=== PATIENT | female | born 1990 | race Caucasian/White ===

== ENCOUNTER 2017-12-20 18:23 | Emergency (ER) | payer OTHER ==
--- NOTE | 2017-12-20 19:47 | ED Physician Documentation ---
PD HPI NVD - Stated complaint Stated Complaint: GUNN/VOMITING - Chief complaint Chief Complaint: General - History obtained from History obtained from: Patient - History of Present Illness Timing - onset: Yesterday Timing - duration: Days (11/21) Timing - details: Gradual onset, Still present Associated symptoms: Other (headache). No: Fever, Abdominal pain, Near syncope / syncope Contributing factors: No: Sick contact, Bad food, Recent antibiotics Similar symptoms before: No diagnosis (has had milder similar headaches without Dx, treated with OTC meds and usually improves over the day.) Recently seen: Not recently seen Review of Systems Constitutional: denies: Fever, Chills, Myalgias, Fatigue Eyes: reports: Photophobia. denies: Decreased vision, Irritation Ears: denies: Loss of hearing Nose: denies: Rhinorrhea / runny nose, Congestion Throat: denies: Sore throat Respiratory: denies: Cough GI: reports: Nausea, Vomiting. denies: Abdominal Pain, Diarrhea Neurologic: reports: Generalized weakness, Headache. 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 - Present Medications Home Medications: Ambulatory Orders Medication Instructions Recorded Confirmed Ondansetron Odt [Zofran] 4 mg TL Q6H PRN #15 tablet 12/20/17 Sumatriptan Succinate [Imitrex] 50 mg PO ONCE PRN #5 tablet 12/20/17 - Allergies Allergies/Adverse Reactions: Allergies Allergy/AdvReac Type Severity Reaction Status Date / Time No Known Drug Allergies Allergy Verified 12/20/17 18:33 - Social History Does the pt smoke?: No Smoking Status: Never smoker Does the pt drink ETOH?: No Substance Use and Type: Marijuana - Immunizations Immunizations are current?: Yes - POLST Patient has POLST: No PD ED PE NORMAL - Vitals Vital signs reviewed: Yes - General General: Alert and oriented X 3, Well developed/nourished, Other (appears in pain with light sensitivity.) - HEENT HEENT: Atraumatic, PERRL, Ears normal, Pharynx benign - Neck Neck: Supple, no meningeal sign, No adenopathy - Cardiac Cardiac: RRR, No murmur - Respiratory Respiratory: Clear bilaterally - Abdomen Abdomen: Soft, Non tender - Derm Derm: Normal color, Warm and dry - Neuro Neuro: Alert and oriented X 3, nutrition internship 2-12 intact, No motor deficit, No sensory deficit, Normal speech Eye Opening: Spontaneous Motor: Obeys Commands Verbal: Oriented GCS Score: 15 - Psych Psych: Normal mood, Normal affect Results - Vitals Vitals: Oxygen O2 Source Room air PD MEDICAL DECISION MAKING - ED course Complexity details: re-evaluated patient (improved with meds targeted at migraine. ), considered differential, d/w patient Departure - Departure Disposition: 01 Home, Self Care Clinical Impression: Headache Qualifiers: Headache type: unspecified Headache chronicity pattern: acute headache Intractability: not intractable Qualified Code(s): R51 - Headache Vomiting Qualifiers: Vomiting type: unspecified Vomiting Intractability: non-intractable Nausea presence: with nausea Qualified Code(s): R11.2 - Nausea with vomiting, unspecified Migraine Qualifiers: Migraine type: without aura Status migrainosus presence: without status migrainosus Intractability: not intractable Qualified Code(s): G43.009 - Migraine without aura, not intractable, without status migrainosus Condition: Stable Record reviewed to determine appropriate education?: Yes Instructions: ED Headache Migraine, ED Nausea Vomiting Prescriptions: Ondansetron Odt [Zofran] 4 mg TL Q6H PRN #15 tablet PRN Reason: Nausea / Vomiting Sumatriptan Succinate [Imitrex] 50 mg PO ONCE PRN #5 tablet PRN Reason: Migraine Comments: This sounds like a migraine headache and I am glad it is feeling better. If you have subsequent headaches like this you could try a combination of ibuprofen along with ondansetron for nausea and potentially migraine medicine called sumatriptan. The combination often will help with migraine headaches. Follow-up with the primary care if repetitive headaches. Tylenol or Ibuprofen as needed for residual headache this evening. Discharge Date/Time: 12/20/17 21:55
[2017-12-20] MEDS ORDERED: KETOROLAC 30 MG/ML VIAL IVP STA (20:05)
[2017-12-20] MEDS ORDERED: DEXAMETHASONE 10 MG/ML VIAL IVP STA (20:05)
[2017-12-20] MEDS ORDERED: diphenhydrAMINE INJ 50 MG/ML VIAL IVP STA (20:05)
[2017-12-20] MEDS ORDERED: SODIUM CHLORIDE 0.9% 1,000 ML IV ONE ×2 (20:05→20:06)
[2017-12-20] MEDS ORDERED: METOCLOPRAMIDE 10 MG/2 ML VIAL IVP STA (20:05)
[2017-12-20] MEDS ORDERED: ONDANSETRON ODT 4 MG Prepack 2 TL PRN (21:34)
[2017-12-20 21:52] VITALS: BP 117/75
== END 2017-12-20 21:55 | disposition home or self-care (01) ==
LOC: ED 18:23
DX: G43.009 Migraine without aura, not intractable, without status migrainosus (principal); R11.2 Nausea with vomiting, unspecified; E03.9 Hypothyroidism, unspecified
CPT/HCPCS: 96361; 96374; 96375; 99283; 99284

== ENCOUNTER 2018-10-21 11:04 | Emergency (ER) | payer OTHER ==
[2018-10-21] MEDS ORDERED: NAPROXEN 250 MG TABLET PO STA (12:07)
--- NOTE | 2018-10-21 12:11 | ED Physician Documentation ---
PD HPI UPPER EXT INJURY - Stated complaint Stated Complaint: ARM PX - Chief complaint Chief Complaint: Ext Problem - History obtained from History obtained from: Patient - History of Present Illness Location: Left, Wrist, Hand - Additonal information Additional information: 28-year-old female presents the emergency department with intermittent pain in her left wrist and hand for the past several years. The patient reports a sharp burning pain. The patient does use her left hand extensively and is left- handed. The patient was told that she has carpal tunnel but is never seen orthopedic surgery. The patient denies proximal pain. The patient denies any injury to her shoulder elbow or wrist. Symptoms are described as moderate. No relieving factors. Review of Systems Constitutional: denies: Fever Eyes: denies: Discharge Ears: denies: Ear pain Cardiac: denies: Chest pain / pressure Respiratory: denies: Cough GI: denies: Abdominal Pain : denies: Dysuria Musculoskeletal: reports: Extremity pain. 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 - Present Medications Home Medications: Ambulatory Orders Medication Instructions Recorded Confirmed Dextroamphetamine/Amphetamine 10/21/18 [Adderall 30 mg Tablet] Doxazosin [Cardura] 1 mg PO ONCE 10/21/18 10/21/18 Lamotrigine [Lamotrigine Odt] 200 mg PO 10/21/18 Naproxen 500 mg PO BID PRN #60 tablet 10/21/18 - Allergies Allergies/Adverse Reactions: Allergies Allergy/AdvReac Type Severity Reaction Status Date / Time No Known Drug Allergies Allergy Verified 10/21/18 11:16 - Social History Does the pt smoke?: Yes Smoking Status: Current some day smoker Does the pt drink ETOH?: Yes ETOH Use: Wine Does the pt have substance abuse?: No Substance Use and Type: Marijuana - Immunizations Immunizations are current?: Yes - POLST Patient has POLST: No PD ED PE NORMAL - General General: Alert and oriented X 3, No acute distress - HEENT HEENT: Atraumatic - Derm Derm: Normal color - Extremities Extremities: Other (The patient is tender to palpation in her left wrist and hand. The exam is limited secondary to the patient's discomfort. There is no swelling of the upper extremity. The patient appears to have full range of motion of the shoulder, elbow, wrist and hand. The patient has a normal radial pulse. There is normal cap refill. There is normal sensory and motor function of the extremity. ) - Neuro Neuro: Alert and oriented X 3, Normal speech - Psych Psych: Normal affect Results - Vitals Vitals: Vital Signs - 24 hr 10/21/18 10/21/18 11:13 12:22 Temperature 36.2 C L Heart Rate 66 98 Respiratory 15 20 Rate Blood Pressure 111/71 139/79 H O2 Saturation 100 99 Oxygen O2 Source Room air PD MEDICAL DECISION MAKING - ED course ED course: There is no history of trauma that would suggest fracture and clinically there is no evidence of fracture so I do not think x-rays would be of much utility. The patient's pain on the represents carpal tunnel or tendinitis. The exam is limited secondary to the patient's discomfort. The patient will be placed in a splint and started on anti-inflammatories. I recommended that she follow-up with orthopedics for further workup and management of her symptoms. I discussed warning signs and recommended returning to the emergency department for any worsening or any concerns. Departure - Departure Disposition: 01 Home, Self Care Clinical Impression: Wrist pain, acute Qualifiers: Laterality: left Qualified Code(s): M25.532 - Pain in left wrist Condition: Good Instructions: Carpal Tunnel Syndrome, Tendonitis and Tenosynovitis Follow-Up: Frandy Gould MD [Provider Admit Priv/Credential] - Within 1 week (Please call to schedule an appointment for further workup and evaluation of your pain) Prescriptions: Naproxen 500 mg PO BID PRN #60 tablet PRN Reason: Pain Comments: Please return to the emergency department for worsening symptoms or any concerns Discharge Date/Time: 10/21/18 12:22
[2018-10-21 12:27] VITALS: BP 139/79
== END 2018-10-21 12:22 | disposition home or self-care (01) ==
LOC: ED 11:04
DX: M25.532 Pain in left wrist (principal); E03.9 Hypothyroidism, unspecified; F17.200 Nicotine dependence, unspecified, uncomplicated
CPT/HCPCS: 99283; A9270

== ENCOUNTER 2019-12-09 19:38 | Emergency (ER) | payer SELFPAY ==
[2019-12-09 20:09] LABS: GLUCOSE, URINE (UA) 100 mg/dL (NEGATIVE); KETONES,URINE (UA) NEGATIVE (NEGATIVE)
[2019-12-09 20:11] LABS: CLARITY,URINE CLEAR (CLEAR)
[2019-12-09 20:14] LABS: BILIRUBIN,URINE NEGATIVE (NEGATIVE)
--- NOTE | 2019-12-09 20:21 | ED Physician Documentation ---
PD HPI FEMALE - Stated complaint Stated Complaint: F , ABD/BACK PX - Chief complaint Chief Complaint: UTI - History obtained from History obtained from: Patient - History of Present Illness Timing - onset: How many days ago (5) Timing - details: Gradual onset, Waxing and waning Pain level max: 7 Associated symptoms: Back pain, Pelvic pain. No: Fever Contributing factors: No: Recently seen: Clinic - Additional information Additional information: c/o urinary frequency and burning dysuria since Monday (five days ago). she says she has no PMD and thus went to a walk-in center in [place] on Monday. She says she was prescribed Bactrim and started it that day; she says the urinary frequency and dysuria have improved, although not resolved, and she continues to take pyridium. She is concerned because she has now developed pelvic pain that radiates around bilaterally to the lower back. Review of Systems Constitutional: denies: Fever GI: reports: Abdominal Pain. denies: Nausea, Vomiting, Constipation, Diarrhea : reports: Dysuria, Frequency. 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 - Present Medications Home Medications: Ambulatory Orders Medication Instructions Recorded Confirmed Dextroamphetamine/Amphetamine 10/21/18 [Adderall 30 mg Tablet] Amox/Clav 875/125 [Augmentin] 1 each PO Q12H #14 tablet 12/09/19 Sulfamethox/Trimeth 800/160 1 each PO BID 12/09/19 12/09/19 [Bactrim Ds 800/160] - Allergies Allergies/Adverse Reactions: Allergies Allergy/AdvReac Type Severity Reaction Status Date / Time No Known Drug Allergies Allergy Verified 12/09/19 19:48 - Social History Does the pt smoke?: Yes Smoking Status: Current every day smoker Does the pt drink ETOH?: Yes Does the pt have substance abuse?: No - Immunizations Immunizations are current?: Yes - POLST Patient has POLST: No PD ED PE NORMAL - Vitals Vital signs reviewed: Yes - General General: Alert and oriented X 3, No acute distress, Well developed/nourished - HEENT HEENT: Moist mucous membranes - Abdomen Abdomen: Normal bowel sounds, Soft, Non tender, Non distended - Back Back: No CVA TTP Results - Vitals Vitals: Vital Signs - 24 hr 12/09/19 12/09/19 19:45 21:59 Temperature 36.7 C 36.6 C Heart Rate 100 84 Respiratory 18 18 Rate Blood Pressure 107/68 108/72 O2 Saturation 96 95 Oxygen O2 Source Room air - Labs Labs: Laboratory Tests 12/09/19 12/09/19 19:55 19:55 Urine Color ORANGE Urine Clarity CLEAR Urine pH 6.0 Ur Specific [place] 1.025 1.025 Urine Protein Urine Glucose (UA) 100 H Urine Ketones NEGATIVE Urine Occult Blood Urine Nitrite Urine Bilirubin NEGATIVE Urine Urobilinogen Ur Leukocyte Esterase Urine RBC 0-5 Urine WBC 0-3 Ur Squamous Epith Cells MANY Squamous H Urine Bacteria Rare Ur Microscopic Review INDICATED Urine Culture Comments NOT INDICATED Urine HCG, Qual NEGATIVE PD MEDICAL DECISION MAKING - ED course Complexity details: reviewed results, re-evaluated patient, considered differential, d/w patient ED course: UA is difficult to interpret for two reasons: on bactrim for several days, so results could reflect partially-treated UTI. Also, discoloration due to pyridium obscures some results. Her abdominal exam is benign; will treat with different antibiotic and have her contact the walk-in center when they are open to inquire as to sensitivity/resistance patterns (presuming culture was performed) to help determine if she has been on / is now on appropriate antibiotic. Encouraged to return if worse of develops fever, and to f/u with PMD Departure - Departure Disposition: 01 Home, Self Care Clinical Impression: Cystitis Condition: Good Instructions: ED UTI Cystitis Female Prescriptions: Amox/Clav 875/125 [Augmentin] 1 each PO Q12H #14 tablet Comments: Start the augmentin (amoxicillin/clav) as prescribed and stop the bactrim (sulfa/trimeth). Contact the walk-in facility and ask about the urine culture results as we discussed. Discharge Date/Time: 12/09/19 22:00
[2019-12-09 20:29] LABS: HCG UR QUAL NEGATIVE
[2019-12-09 20:34] LABS: BACTERIA,URINE Rare /HPF (None Seen); RBC,URINE 0-5 /HPF (0-5); SQUAMOUS EPITHELIAL CELL,UR MANY Squamous (<= Few)
[2019-12-09] MEDS ORDERED: KETOROLAC 60 MG/2 ML VIAL IM STA (21:32)
[2019-12-09] MEDS ORDERED: cefTRIAXone 1 GM VIAL IM STA (21:32)
[2019-12-09] MEDS ORDERED: LIDOCAINE 1% 2 ML VIAL MC ONE (21:32)
[2019-12-09 21:59] VITALS: BP 108/72
== END 2019-12-09 22:00 | disposition home or self-care (01) ==
LOC: ED 19:38
DX: N30.90 Cystitis, unspecified without hematuria (principal); F17.200 Nicotine dependence, unspecified, uncomplicated
CPT/HCPCS: 81001; 81003; 81025; 87086; 96372; 99283

== ENCOUNTER 2021-04-27 12:53 | Outpatient (CLI) | payer MEDICAID | END 2021-04-27 13:45 | disposition home or self-care (01) | LOC: WFO 12:53 → FBP 12:58 → WFO 13:45 | PROVIDERS: ATTEND Pediatrics | DX: Z53.9 Procedure and treatment not carried out, unspecified reason (principal) | CPT/HCPCS: 99402 ==

== ENCOUNTER 2021-10-04 16:52 | Emergency (ER) | payer MEDICAID ==
[2021-10-04 17:13] VITALS: BP 148/92
--- NOTE | 2021-10-04 18:24 | ED Physician Documentation ---
PD HPI LOWER EXT INJURY - Stated complaint Stated Complaint: LEFT HEEL PX - Chief complaint Chief Complaint: Ext Problem - History obtained from History obtained from: Patient - Additional information Additional information: 31-year-old woman has been dealing with left heel pain for last 2 months or so that has generally been getting worse and for a while the other day could not ambulate because of it. It is located on the posterior and sides of the calcaneus of the left heel. There was no trauma per se. She has had plantar fasciitis before but this feels different. Was seen at urgent care today but the power went out and they could not x-ray it so she came here for an x-ray. Today is the only day she has childcare. 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 - Present Medications Home Medications: Ambulatory Orders Medication Instructions Recorded Confirmed Dextroamphetamine/Amphetamine 20 mg ORAL DAILY 10/21/18 10/04/21 [Adderall 30 mg Tablet] FLUoxetine [PROzac] 10 mg PO DAILY 10/04/21 10/04/21 Ibuprofen [Motrin] 800 mg PO Q8H PRN #30 tablet 10/04/21 Levothyroxine [Synthroid] 75 mcg PO QDAC 10/04/21 10/04/21 - Allergies Allergies/Adverse Reactions: Allergies Allergy/AdvReac Type Severity Reaction Status Date / Time No Known Drug Allergies Allergy Verified 10/04/21 17:13 - Social History Does the pt smoke?: Yes Smoking Status: Current every day smoker Does the pt drink ETOH?: Yes Does the pt have substance abuse?: No - Immunizations Immunizations are current?: Yes - POLST Patient has POLST: No PD ED PE NORMAL - Vitals Vital signs reviewed: Yes - General General: Alert and oriented X 3, No acute distress - Derm Derm: Normal color, Warm and dry - Extremities Extremities: Other (Tender to the medial side of the calcaneus. The plantar fascia is nontender and there is no pain with manipulation or palpation of the Achilles tendon or plantar fascia. No pain with forced flexion or extension of the left foot.) - Neuro Neuro: Alert and oriented X 3, Normal speech Results - Vitals Vitals: Vital Signs - 24 hr 10/04/21 17:09 Temperature 36.0 C L Heart Rate 107 H Respiratory 16 Rate Blood Pressure 148/92 H O2 Saturation 100 Oxygen O2 Source Room air - Rads (name of study) Calcaneus x-ray Radiology: EMP read contemporaneously (Bone spurs, Nad) PD MEDICAL DECISION MAKING - ED course ED course: She presents with heel pain, it is not consistent with Achilles tendinitis nor plantar fasciitis. Seems more like a tendon on the medial side attaching the calcaneus. X-ray showing bone spurs. She is placed in a walking boot for comfort and immobilization from an inversion/eversion perspective and advised on follow-up with a ems manager. Departure - Departure Disposition: 01 Home, Self Care Clinical Impression: Tendinitis of left foot Condition: Good Record reviewed to determine appropriate education?: Yes Instructions: ED Tendinitis Calcific Follow-Up: Elaine Pena DPM [Provider Admit Priv/Credential] - Orville Maguire DPM [Physician No Access] - Prescriptions: Ibuprofen [Motrin] 800 mg PO Q8H PRN #30 tablet PRN Reason: PAIN &/OR FEVER Comments: As discussed, the x-ray of your calcaneus shows bone spurs, this is a chronic phenomenon potentially related to prior plantar fasciitis of the foot. That said I think today your symptoms are caused by tendinitis. The boot should help with inversion and eversion of the ankle but I also recommend following up with a ems manager and a couple of numbers are on this form for you to call and make an appointment. Return if worse. Discharge Date/Time: 10/04/21 19:22
--- NOTE | 2021-10-04 19:02 | XRAY Report ---
PROCEDURE: Calcaneus LT INDICATIONS: heel pain TECHNIQUE: Two views of the calcaneus were acquired. COMPARISON: None FINDINGS: Bones: No fractures or dislocations. No suspicious bony lesions. Large dorsal and plantar calcanea l bone spurs. Soft tissues: No suspicious calcifications. Achilles tendon appears normal. IMPRESSION: Calcaneal bone spurs. Reviewed by: Maggi Barnes MD, PhD on 10/04/2021 7:00 PM PST Approved by: Maggi Barnes MD, PhD on 10/04/2021 7:00 PM PST Station ID: [id number]
== END 2021-10-04 19:22 | disposition home or self-care (01) ==
LOC: ED 16:52
DX: M77.52 Other enthesopathy of left foot and ankle (principal); M77.32 Calcaneal spur, left foot
CPT/HCPCS: 99283

== ENCOUNTER 2021-10-18 18:32 | Emergency (ER) | payer MEDICAID ==
[2021-10-18 18:40] VITALS: BP 119/78
--- NOTE | 2021-10-18 20:20 | ED Physician Documentation ---
PD HPI FEMALE - Stated complaint Stated Complaint: FEMALE - Chief complaint Chief Complaint: Abd Pain - History obtained from History obtained from: Patient - Additional information Additional information: Patient comes emergency department chief complaint of low abdominal cramping and vaginal bleeding that started this afternoon. She states she is somewhere between 7 and 11 weeks , but she is not sure because since giving to her third child 7 months ago, her periods have been irregular. She also states that she thinks she may have had a miscarriage in June, because she mi ssed her period in May and then had an extra heavy 1 in June. She states she never took a test so she is not really sure. Patient has had a positive home test but has not had an ultrasound yet. She states that she had uncomplicated pregnancies for all of her children and did not have any any bleeding during that time. Patient states that she has not been on any control. She does not know her blood type or her partners. She states that she is otherwise fairly healthy. Patient denies any dysuria or unusual discharge. No back pain. No fevers or chills. No other complaints at this time. She states that she has been bleeding a little more than spotting, but not heavily. She states it is more like a light day of her period. Review of Systems Ten Systems: 10 systems reviewed and negative Constitutional: reports: Reviewed and negative Eyes: reports: Reviewed and negative Ears: reports: Reviewed and negative Nose: reports: Reviewed and negative Throat: reports: Reviewed and negative Cardiac: reports: Reviewed and negative Respiratory: reports: Reviewed and negative GI: reports: Reviewed and negative : reports: Vaginal bleeding, Now EGA Skin: reports: Reviewed and negative Musculoskeletal: reports: Reviewed and negative Neurologic: reports: Reviewed and negative Psychiatric: reports: Reviewed and negative Endocrine: reports: Reviewed and negative Immunocompromised: reports: Reviewed and negative PD PAST MEDICAL HISTORY - Past Medical History Cardiovascular: None Respiratory: None Neuro: None Endocrine/Autoimmune: HyPOthyroidism GI: None 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 : None HEENT: None Psych: Anxiety, Bipolar disorder, Panic attacks, ADD/ADHD Musculoskeletal: None Derm: None - Past Surgical History Past Surgical History: Yes /VICE [employer]IDENT [employer]: section - Present Medications Home Medications: Ambulatory Orders Medication Instructions Recorded Confirmed Dextroamphetamine/Amphetamine 20 mg ORAL DAILY 10/21/18 10/04/21 [Adderall 30 mg Tablet] FLUoxetine [PROzac] 10 mg PO DAILY 10/04/21 10/04/21 Ibuprofen [Motrin] 800 mg PO Q8H PRN #30 tablet 10/04/21 Levothyroxine [Synthroid] 75 mcg PO QDAC 10/04/21 10/04/21 - Allergies Allergies/Adverse Reactions: Allergies Allergy/AdvReac Type Severity Reaction Status Date / Time No Known Drug Allergies Allergy Verified 10/18/21 18:36 - Social History Does the pt smoke?: Yes Smoking Status: Current every day smoker Does the pt drink ETOH?: Yes Does the pt have substance abuse?: No - Immunizations Immunizations are current?: Yes Immunizations: Other immun not current - POLST Patient has POLST: No PD ED PE NORMAL - Vitals Vital signs reviewed: Yes - General General: Alert and oriented X 3, No acute distress, Well developed/nourished - HEENT HEENT: Atraumatic, PERRL, EOMI, Moist mucous membranes - Neck Neck: Supple, no meningeal sign - Cardiac Cardiac: RRR, No murmur, Strong equal pulses - Respiratory Respiratory: No respiratory distress, Clear bilaterally - Abdomen Abdomen: Soft, Non tender, Non distended - Female Female : 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 Speculum exam reveals no cervical lesions. Mild amount of maroon blood mixed with mucus in vaginal canal. No products of conception or clots. No cervical motion tenderness. Os is closed.) - Back Back: No CVA TTP - Derm Derm: Normal color, Warm and dry, No rash - Extremities Extremities: No deformity, No edema - Neuro Neuro: Alert and oriented X 3, bezel cutter 2-12 intact, Normal speech - Psych Psych: Normal mood, Normal affect Results - Vitals Vitals: Vital Signs - 24 hr 10/18/21 10/18/21 18:36 21:17 Temperature 36.5 C Heart Rate 100 94 Respiratory 16 14 Rate Blood Pressure 119/78 O2 Saturation 98 97 Oxygen O2 Source Room air - Labs Labs: Laboratory Tests 10/18/21 10/18/21 20:20 20:20 HCG, Quant 8.70 Blood Type A POSITIVE Antibody Screen NEGATIVE - Rads (name of study) OB US Radiology: Final report received, EMP read indepedently, See rad report (No IUP. No identifiable ectopic , but cannot rule out.) PD MEDICAL DECISION MAKING - ED course Complexity details: reviewed results, re-evaluated patient, considered differential, d/w patient ED course: The patient was worked up with labs including quantitative hCG and blood type. She was also worked up with ultrasound. The patient's quantitative hCG was 8.7 and her ultrasound did not show any evidence of a either intrauterine or extrauterine. I spoke with the patient further, and she stated that she had had a total of 5+ urine tests, four at home and one at her doctor's office. The last one was October 13. At this point in time, I discussed with the patient that it appears that her has failed to progress and that she is having a very early miscarriage. However, I have advised her to call her doctor's office first thing tomorrow morning and schedule an appointment for 3 days from now to have a repeat hCG done to be sure that her hormones are continuing to decrease. We have discussed that if her hormone levels are rising again she will need to have another ultrasound next week. The patient also understands that should she develop any severe bleeding and severe pain, or syncope/near syncope, she should return to the emergency department. Departure - Departure Disposition: Home, Self Care Clinical Impression: First trimester bleeding Migraine Qualifiers: Migraine type: unspecified Status migrainosus presence: without status migrainosus Intractability: not intractable Qualified Code(s): G43.909 - Migraine, unspecified, not intractable, without status migrainosus Condition: Stable Instructions: Bleeding Early Preg, ED Headache Migraine, ED Miscarriage Poss Comments: Tonight, your level of beta-hCG, the main hormone, was 8.7. This is well below the threshold generally required to trigger a positive urine test. Your ultrasound was completely negative for a inside of or outside of the uterus. As such, the very most likely scenario is that you had a that stopped progressing very early in the process, and that while the hormone levels were high enough to trigger a positive urine test, they are dropping, due to a failure of progression of the . There is still a very small chance that you could have a outside of the uterus that is too small to see. As such, it is very important that you call your doctor's office first thing in the morning and schedule an appointment for this coming October 21, two have another hormone level drawn. If the hormone levels continue to drop, then this indicates that the will no longer grow, and will off. However, if your hormone start rising again, you will need to have another ultrasound next week to determine whether any further development has occurred. If you develop severe abdominal pain Or extremely heavy bleeding, or if you become severely lightheaded and nearly faint or faint, you should return to the emergency department. Discharge Date/Time: 10/18/21 21:17
[2021-10-18] MEDS ORDERED: PROMETHAZINE 25 MG/1 ML VIAL IM STA (21:04)
--- NOTE | 2021-10-18 21:47 | Ultrasound Report ---
PROCEDURE: OB First Trimester INDICATIONS: 1st trimester bleeding OUTSIDE/PRIOR DATING DATA: Last menstrual period (LMP): Not known. LMP-based estimated date of delivery (ECTOR): Not applicable. First dating scan (date and location): 10/18/2021. Estimated date of delivery (ECTOR) from first dating scan: Not applicable. TECHNIQUE: Real-time scanning was performed of the fetus and maternal pelvic organs, with image documentation. COMPARISON: None FINDINGS: Embryo: No intrauterine identified. Heart rate: Not applicable Measurement variability in dating: +/- 4 weeks by LMP, +/- 7 days by mean sac diameter (use before 6 weeks gestation if crown-rump length not able to be measured), +/- 5 days by crown-rump length (6-12 weeks gestation). Maternal organs: Uterus measures 9.8 x 4.6 x 6.0 cm. Right ovary measures 2.5 x 1.9 x 2.9 cm. Left o vary measures 2.6 x 2.2 x 2.5 cm. Ovaries are sonographically normal. Trace echogenic fluid noted in the cervical canal. IMPRESSION: 1. No intrauterine identified. Differential diagnosis includes early , nonviable p regnancy and occult ectopic . Recommend close clinical observation, correlation with serial beta hCG and short-term follow-up obstetrical ultrasound in one week. Reviewed by: Maggi Barnes MD, PhD on 10/18/2021 9:46 PM PST Approved by: Maggi Barnes MD, PhD on 10/18/2021 9:46 PM PST Station ID: [id number]
== END 2021-10-18 21:17 | disposition home or self-care (01) ==
LOC: ED 18:32
DX: O03.4 Incomplete spontaneous abortion without complication (principal); G43.909 Migraine, unspecified, not intractable, without status migrainosus; F17.200 Nicotine dependence, unspecified, uncomplicated
CPT/HCPCS: 36415; 84702; 86850; 86900; 86901; 96372; 99283; 99284

== ENCOUNTER 2021-10-29 16:52 | Outpatient (CLI) | payer MEDICAID | END 2021-10-29 16:53 | disposition home or self-care (01) | LOC: LAB.N 16:52 | PROVIDERS: ATTEND Obstetrics & Gynecology | DX: Z32.01 Encounter for pregnancy test, result positive (principal) | CPT/HCPCS: 36415; 84702 ==

== ENCOUNTER 2022-11-29 17:24 | Emergency (ER) | payer MEDICAID ==
--- OUTSIDE RECORDS SUMMARY | 2022-11-29 18:01 | EXTERNAL MEDICAL SUMMARY RPT | Continuity of Care Document ---
:1990 Author Organization [facility] Address [address] [place] [address] Phone Care Team Providers Name Role Phone Unavailable Unavailable Unavailable Josefina Baumann Unavailable Unavailable Allergies and Intolerances date description facility type (no date) [facility] (unknown) Encounters No information. Functional Status No information. Immunizations date description facility 2022 00:00 Tetanus, Diphtheria, Pertussis (Tdap) [facility]22-11-01 [facility] Medications date description facility 2022-09-09 00:00 [facility] 2022-10-12 [facility]10 [facility] Levothy[facility]22-10-17 [facility]:00 Hydroxyzine [facility] Problems date description facility 2022-10-04 00:00 [facility]04 12:15 Hypothyroidism, unspecified [facility] 2022-10-18 00:00 Request for sterilization [facility] 2022-10-18 00:00 [facility] 2022-11-01 12:23 Encounter for supervision of other [facility] , third t 2022-11-01 12:23 35 weeks gestation of [facility] 2022-11-02 02:05 Encounter for supervision of other [facility] , third t 2022-11-02 02:05 35 weeks gestation of [facility] 2022-11-10 12:33 Decreased movements, third trimes ter, [facility] applicable o 2022-11-24 07:17 Encounter for sterilization M[facility]ed with [facility] 2022-11-24 07:17 39 weeks gestation of [facility] 2022-11-24 07:17 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 [facility] 2022-11-24 07:18 Encounter for sterilization M[facility] 2022-11-24 07:18 39 weeks gestation of [facility] 2022-11-24 07:18 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 [facility] 2022-11-24 08:47 Encounter for sterilization M[facility] 2022-11-24 08:47 39 weeks gestation of [facility] 2022-11-24 08:47 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 [facility] 2022-11-24 09:45 Encounter for sterilization M[facility] 2022-11-24 09:45 39 weeks gestation of [facility] 2022-11-24 09:45 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 [facility] 2022-11-24 17:45 Encounter for sterilization Merged with [facility] 2022-11-24 17:45 39 weeks gestation of [facility] 2022-11-24 17:45 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 [facility] 2022-11-25 08:51 Encounter for sterilization [facility] 2022-11-25 08:51 39 weeks gestation of [facility] 2022-11-25 08:51 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 [facility] 2022-11-25 09:37 Encounter for sterilization M[facility]ed [facility] 2022-11-25 09:37 39 weeks gestation of [facility] 2022-11-25 09:37 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 [facility] 2022-11-25 10:52 Encounter for sterilization M[facility] 2022-11-25 10:52 39 weeks gestation of [facility] 2022-11-25 10:52 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 [facility] 2022-11-25 14:03 Encounter for sterilization [facility] 2022-11-25 14:03 39 weeks gestation of [facility] 2022-11-25 14:03 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 [facility] 2022-11-25 16:40 Encounter for sterilization [facility] 2022-11-25 16:40 39 weeks gestation of [facility] 2022-11-25 16:40 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 [facility] Procedures date description facility 2022-11-24 00:00 Section (Not Applicable) [facility] 2022-11-26 00:00 Blood Patch Epidural [facility] Results/Labs test date author facility value unit interpret ation Result panel 1 (unknown) (no date[facility]) Result panel 2 (unknown) (no date) (unknown[facility]) Result panel 3 (unknown) (no date) (unknown[facility]) Result panel 4 (unknown) (no date) (unknown[facility]) Result panel 5 (unknown) (no date) (unknown[facility]) Result panel 6 (unknown) (no date) (unknown[facility]) Result panel 7 (unknown) (no date) (unknown[facility]) Result panel 8 (unknown) (no date) (unknown[facility]) Result panel 9 (unknown) (no date) (unknown[facility]) Result panel 10 (unknown) (no date) (unknown[facility]) Result panel 11 (unknown) (no date) (unknown[facility]) Result panel 12 (unknown) (no date) (unknown[facility]) Result panel 13 (unknown) (no date) (unknown[facility]) Result panel 14 (unknown) (no date) (unknown[facility]) Result panel 15 (unknown) (no date) (unknown[facility]) Result panel 16 (unknown) (no date) (unknown[facility]) Result panel 17 (unknown) (no date) (unknown[facility]) Result panel 18 (unknown) (no date) (unknown[facility]) Result panel 19 (unknown) (no date) (unknown[facility]) Result panel 20 (unknown) (no date) (unknown[facility]) Result panel 21 (unknown) (no date) (unknown[facility]) Result panel 22 (unknown) (no date) (unknown[facility]) Result panel 23 (unknown) (no date) (unknown[facility]) Result panel 24 (unknown) (no date) (unknown[facility]) Result panel 25 (unknown) (no date) (unknown[facility]) Result panel 26 (unknown) (no date) (unknown[facility]) Result panel 27 (unknown) (no date) (unknown[facility]) Result panel 28 (unknown) (no date) (unknown[facility]) Result panel 29 (unknown) (no date) (unknown[facility]) Result panel 30 (unknown) (no date) (unknown[facility]) Result panel 31 (unknown) (no date) (unknown[facility]) Result panel 32 (unknown) (no date) (unknown[facility]) Result panel 33 (unknown) (no date) (unknown[facility]) Result panel 34 (unknown) (no date) (unknown[facility]) Result panel 35 (unknown) (no date) (unknown[facility]) Result panel 36 (unknown) (no date) (unknown[facility]) Result panel 37 (unknown) (no date) (unknown[facility]) Result panel 38 (unknown) (no date) (unknown[facility]) Result panel 39 (unknown) (no date) (unknown[facility]) Result panel 40 (unknown) (no date) (unknown[facility]) Result panel 41 (unknown) (no date) (unknown[facility]) Result panel 42 (unknown) (no date) (unknown[facility]) Result panel 43 (unknown) (no date) (unknown[facility]) Result panel 44 (unknown) (no date) (unknown[facility]) Result panel 45 (unknown) (no date) (unknown[facility]) Result panel 46 (unknown) (no date) (unknown[facility]) Result panel 47 (unknown) (no date) (unknown[facility]) Result panel 48 (unknown) (no date) (unknown[facility]) Result panel 49 (unknown) (no date) (unknown[facility]) Result panel 50 (unknown) (no date) (unknown[facility]) Result panel 51 (unknown) (no date) (unknown[facility]) Result panel 52 (unknown) (no date) (unknown) [facility]) Result panel 53 (unknown) (no date) (unknown) [facility]) Result panel 54 (unknown) (no date) (unknown[facility]) Result panel 55 (unknown) (no date) (unknown[facility]) Result panel 56 (unknown) (no date) (unknown) [facility]) Result panel 57 (unknown) (no date) (unknown[facility]) Result panel 58 (unknown) (no date) (unknown) [facility]) Result panel 59 (unknown) (no date) (unknown) [facility]) Result panel 60 (unknown) (no date) (unknown[facility]) Result panel 61 (unknown) (no date) (unknown) [facility]) Result panel 62 (unknown) (no date) (unknown) [facility]) Result panel 63 (unknown) (no date) (unknown) [facility]) Result panel 64 (unknown) (no date) (unknown) [facility]) Result panel 65 (unknown) (no date) (unknown) [facility]) Result panel 66 (unknown) (no date) (unknown) [facility]) Result panel 67 (unknown) (no date) (unknown[facility]) Result panel 68 (unknown) (no date) (unknown[facility]) Result panel 69 (unknown) (no date) (unknown[facility]) Result panel 70 (unknown) (no date) (unknown) [facility]) Result panel 71 (unknown) (no date) (unknown) [facility]) Result panel 72 (unknown) (no date) (unknown[facility]) Result panel 73 (unknown) (no date) (unknown[facility]) Result panel 74 (unknown) (no date) (unknown[facility]) Result panel 75 (unknown) (no date) (unknown[facility]) Result panel 76 (unknown) (no date) (unknown[facility]) Result panel 77 (unknown) (no date) (unknown) [facility]) Result panel 78 (unknown) (no date) (unknown) [facility]) Result panel 79 (unknown) (no date) (unknown) [facility]) Result panel 80 (unknown) (no date) (unknown[facility]) Result panel 81 (unknown) (no date) (unknown[facility]) Result panel 82 (unknown) (no date) (unknown[facility]) Result panel 83 (unknown) (no date) (unknown[facility]) Result panel 84 (unknown) (no date) (unknown[facility]) Result panel 85 (unknown) (no date) (unknown[facility]) Result panel 86 (unknown) (no date) (unknown[facility]) Result panel 87 (unknown) (no date) (unknown[facility]) Result panel 88 (unknown) (no date) (unknown[facility]) Result panel 89 (unknown) (no date) (unknown[facility]) Result panel 90 (unknown) (no date) (unknown[facility]) Result panel 91 (unknown) (no date) (unknown[facility]) Result panel 92 (unknown) (no date) (unknown[facility]) Result panel 93 (unknown) (no date) (unknown[facility]) Result panel 94 (unknown) (no date) (unknown[facility]) Result panel 95 (unknown) (no date) (unknown[facility]) Result panel 96 (unknown) (no date) (unknown[facility]) Result panel 97 (unknown) (no date) (unknown[facility]) Result panel 98 (unknown) (no date) (unknown[facility]) Result panel 99 (unknown) (no date) (unknown[facility]) Result panel 100 (unknown) (no date) (unknown[facility]) Result panel 101 (unknown) (no date) (unknown[facility]) Result panel 102 (unknown) (no date) (unknown[facility]) Result panel 103 (unknown) (no date) (unknown[facility]) Result panel 104 (unknown) (no date) (unknown[facility]) Result panel 105 (unknown) (no date) (unknown[facility]) Result panel 106 (unknown) (no date) (unknown[facility]) Result panel 107 (unknown) (no date) (unknown[facility]) Result panel 108 (unknown) (no date) (unknown[facility]) Result panel 109 (unknown) (no date) (unknown[facility]) Result panel 110 (unknown) (no date) (unknown[facility]) Result panel 111 (unknown) (no date) (unknown[facility]) Result panel 112 (unknown) (no date) (unknown[facility]) Result panel 113 (unknown) (no date) (unknown[facility]) Result panel 114 (unknown) (no date) (unknown[facility]) Result panel 115 (unknown) (no date) (unknown[facility]) Result panel 116 (unknown) (no date) (unknown[facility]) Result panel 117 (unknown) (no date) (unknown[facility]) Result panel 118 (unknown) (no date) (unknown[facility]) Result panel 119 (unknown) (no date) (unknown) [facility]) Result panel 120 (unknown) (no date) (unknown[facility]) Result panel 121 (unknown) (no date) (unknown[facility]) Result panel 122 (unknown) (no date) (unknown[facility]) Result panel 123 (unknown) (no date) (unknown[facility]) Result panel 124 (unknown) (no date) (unknown) [facility]) Result panel 125 (unknown) (no date) (unknown[facility]) Result panel 126 (unknown) (no date) (unknown[facility]) Result panel 127 (unknown) (no date) (unknown[facility]) Result panel 128 (unknown) (no date) (unknown[facility]) Result panel 129 (unknown) (no date) (unknown) [facility]) Result panel 130 (unknown) (no date) (unknown) [facility]) Result panel 131 (unknown) (no date) (unknown[facility]) Result panel 132 (unknown) (no date) (unknown) [facility]) Result panel 133 (unknown) (no date) (unknown) [facility]) Result panel 134 (unknown) (no date) (unknown) [facility]) Result panel 135 (unknown) (no date) (unknown) [facility]) Result panel 136 (unknown) (no date) (unknown) [facility]) Result panel 137 (unknown) (no date) (unknown) [facility]) Result panel 138 (unknown) (no date) (unknown) [facility]) Result panel 139 (unknown) (no date) (unknown) [facility]) Result panel 140 (unknown) (no date) (unknown) [facility]) Result panel 141 (unknown) (no date) (unknown) [facility]) Result panel 142 (unknown) (no date) (unknown) [facility]) Result panel 143 (unknown) (no date) (unknown) [facility]) Result panel 144 (unknown) (no date) (unknown) [facility]) Result panel 145 (unknown) (no date) (unknown) [facility]) Result panel 146 (unknown) (no date) (unknown) [facility]) Result panel 147 (unknown) (no date) (unknown) [facility]) Result panel 148 (unknown) (no date) (unknown) [facility]) Result panel 149 (unknown) (no date) (unknown) [facility]) Result panel 150 (unknown) (no date) (unknown) [facility]) Result panel 151 (unknown) (no date) (unknown) [facility]) Result panel 152 (unknown) (no (unknown) (unknown) (no value) (units (unk nown) date) unknown) (unknown) (no (unknown) (unknown) 'syndrome';) (units (u nknown) date) unknown) (unknown) (no (unknown) (unknown) (+11 lb) 112/62 N (units (unknown) date) unknown) (unknown) (no (unknown) (unknown) (+13 lb) 118/68 N (units (unknown) date) unknown) (unknown) (no (unknown) (unknown) (+21 lb 7 oz) (units ( unknown) date) 98/68 N unknown) (unknown) (no (unknown) (unknown) (+6 lb) 108/68 N (units (unknown) date) unknown) (unknown) (no (unknown) (unknown) Genetic (units (unkn own) date) Screening/Teratolo unknown) gy Counseling - Includes patient, baby's father, or (unknown) (no (unknown) (unknown) -?-?-?-?-?-?-?-?- (units (unknown) date) ?-?-?-? unknown) (unknown) (no (unknown) (unknown) 01/24/14 41 17 7 (units (unknown) date) lb 1 oz Female unknown) live - full t (unknown) (no (unknown) (unknown) 02/19/21 39 7 lb (units (unknown) date) 12 oz Female live unknown) - full term (unknown) (no (unknown) (unknown) 05/13/22 (units (unkno wn) date) unknown) (unknown) (no (unknown) (unknown) 06/09/22 (units (unkno wn) date) unknown) (unknown) (no (unknown) (unknown) 06/16/15 38 7 lb (units (unknown) date) 13 oz Male unknown) live - full (unknown) (no (unknown) (unknown) 07/12/22 (units (unkno wn) date) unknown) (unknown) (no (unknown) (unknown) 08/15/22 (units (unkno wn) date) unknown) (unknown) (no (unknown) (unknown) 09/13/22 (units (unkno wn) date) unknown) (unknown) (no (unknown) (unknown) 09/13/22] (units (unkn own) date) unknown) (unknown) (no (unknown) (unknown) 10/18/21 8 (units (unk nown) date) spontaneous unknown) (unknown) (no (unknown) (unknown) 11w 2d 261 lb (units ( unknown) date) unknown) (unknown) (no (unknown) (unknown) 11w3d 4 wks (units (un known) date) unknown) (unknown) (no (unknown) (unknown) 15w 1d 266 lb (units ( unknown) date) unknown) (unknown) (no (unknown) (unknown) 19w 6d 268 lb (units ( unknown) date) unknown) (unknown) (no (unknown) (unknown) 24w 5d 276 lb 7 (units (unknown) date) oz unknown) (unknown) (no (unknown) (unknown) 5 wks (units (unkno wn) date) unknown) (unknown) (no (unknown) (unknown) ADHD (units (unkno wn) date) unknown) (unknown) (no (unknown) (unknown) Abnormal lab (units (u nknown) date) values 1st unknown) trimester: discussed (unknown) (no (unknown) (unknown) Add'l Plan (units (unk nown) date) Details unknown) (unknown) (no (unknown) (unknown) Additional (units (unk nown) date) Details:: 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 (unknown) (no (unknown) (unknown) Additional Social (units (unknown) date) History unknown) (unknown) (no (unknown) (unknown) Age/Sex: 32 / F (units (unknown) date) Date of Service: unknown) (unknown) (no (unknown) (unknown) Alcoholism (units (unk nown) date) unknown) (unknown) (no (unknown) (unknown) Allergies (units (unkn own) date) unknown) (unknown) (no (unknown) (unknown) [place] (units ( unknown) date) [id number] unknown) (unknown) (no (unknown) (unknown) Anaphylaxis (units (un known) date) unknown) (unknown) (no (unknown) (unknown) Anesthesia (units (unk nown) date) unknown) (unknown) (no (unknown) (unknown) Aneuploidy (units (unk nown) date) Screening Offered: unknown) Accepted (Would like CFDNA if qualified) (unknown) (no (unknown) (unknown) Anticipated (units (un known) date) course of unknown) care: discussed (unknown) (no (unknown) (unknown) Assessment and (units (unknown) date) Plan unknown) (unknown) (no (unknown) (unknown) Attending Dr: (units ( unknown) date) Josefina Baumann unknown) (unknown) (no (unknown) (unknown) Yonis 2 months (units (unknown) date) post-dates unknown) induction (unknown) (no (unknown) (unknown) (units (unkno wn) date) Plan/Preferences unknown) (unknown) (no (unknown) (unknown) Planning (units (unknown) date) unknown) (unknown) (no (unknown) (unknown) Blood (units (unkno wn) date) transfusions?: yes unknown) (Never had but would accept ) (unknown) (no (unknown) (unknown) Breastfeed Preg (units (unknown) date) Comp Name unknown) (unknown) (no (unknown) (unknown) Carpal tunnel (units ( unknown) date) syndrome () unknown) (unknown) (no (unknown) (unknown) Children's (units (unk nown) date) unknown) (unknown) (no (unknown) (unknown) Current Estimate (units (unknown) date) 11/30/22 LMP unknown) (Certain) 28w 6d (unknown) (no (unknown) (unknown) Current (units (unknown) date) History unknown) (unknown) (no (unknown) (unknown) DNA (units (unkno wn) date) unknown) (unknown) (no (unknown) (unknown) : 1990 (units (unknown) date) Acct:[id number] unknown) (unknown) (no (unknown) (unknown) Date of positive (units (unknown) date) home unknown) test: 03/25/22 (unknown) (no (unknown) (unknown) Date (units (unkno wn) date) unknown) (unknown) (no (unknown) (unknown) Daughter Juvenile (units (unknown) date) arthritis unknown) (unknown) (no (unknown) (unknown) Del. Date (units (unkn own) date) GA/Weeks Labor unknown) Lgth Wt Sex Route Outcome Anesthesia Place (unknown) (no (unknown) (unknown) Delivery Date: (units (unknown) date) 02/19/21 Last unknown) Updated by: Susi Petersen RN (unknown) (no (unknown) (unknown) Delivery Date: (units (unknown) date) 06/16/15 Last unknown) Updated by: Susi Petersen RN (unknown) (no (unknown) (unknown) Delv (units (unkno wn) date) unknown) (unknown) (no (unknown) (unknown) Denies other (units (u nknown) date) unknown) (unknown) (no (unknown) (unknown) Denies over the (units (unknown) date) counter unknown) medications, Denies alcohol, Denies illicit drugs and (unknown) (no (unknown) (unknown) Depression (units (unk nown) date) (-1999) unknown) (unknown) (no (unknown) (unknown) Depression: (units (un known) date) discussed unknown) (unknown) (no (unknown) (unknown) Dept at (units (unkno wn) date) . unknown) (unknown) (no (unknown) (unknown) Diet and Exercise (units (unknown) date) unknown) (unknown) (no (unknown) (unknown) Discussed (units (unkno wn) date) anesthesia, but unknown) encouraged Brittany to discuss this more in depth with (unknown) (no (unknown) (unknown) Documented By: (units (unknown) date) Josefina Baumann unknownRichard FINE 09/13/22 0804 (unknown) (no (unknown) (unknown) Draft (units (unkno wn) date) unknown) (unknown) (no (unknown) (unknown) ECTOR Calculator (units (unknown) date) unknown) (unknown) (no (unknown) (unknown) EGA Weight BP (units ( unknown) date) UGlucose unknown) (unknown) (no (unknown) (unknown) Estimated (units (unkn own) date) Delivery Date unknown) Method Current (unknown) (no (unknown) (unknown) Family History (units (unknown) date) (Updated 06/08/22 unknown) @ 21:23 by Aurora Arevalo) (unknown) (no (unknown) (unknown) Father Diabetes (units (unknown) date) mellitus unknown) (unknown) (no (unknown) (unknown) Father of Baby: (units (unknown) date) same unknown) (unknown) (no (unknown) (unknown) [facility] ([facility] unknown) (unknown) (no (unknown) (unknown) First Trimester (units (unknown) date) Education unknown) Checklist (unknown) (no (unknown) (unknown) Follow-up in 4 (units (unknown) date) weeks. Warning unknown) signs reviewed. kag (unknown) (no (unknown) (unknown) Follow-up in 4 (units (unknown) date) weeks. We will unknown) call with anatomic survey results. (unknown) (no (unknown) (unknown) Foot pain () (units (unknown) date) unknown) (unknown) (no (unknown) (unknown) (units (unkno wn) date) unknown) (unknown) (no (unknown) (unknown) [place] at her next (units (unknown) date) visit. f/u in 4 unknown) weeks. (unknown) (no (unknown) (unknown) Genetic Screening (units (unknown) date) + Counseling unknown) (unknown) (no (unknown) (unknown) Genetic Screening (units (unknown) date) unknown) (unknown) (no (unknown) (unknown) 5 (units (unkn own) date) Multiple births unknown) (unknown) (no (unknown) (unknown) HIV risk (units (unkno wn) date) evaluation: low unknown) risk (unknown) (no (unknown) (unknown) Health Center (units ( unknown) date) Education unknown) (unknown) (no (unknown) (unknown) Health center (units ( unknown) date) information: unknown) nature of practice discussed, personnel (unknown) (no (unknown) (unknown) Heavy menstrual (units (unknown) date) period () unknown) (unknown) (no (unknown) (unknown) Hepatitis C risk (units (unknown) date) evaluation: low unknown) risk (unknown) (no (unknown) (unknown) History of (units (unk nown) date) Hepatitis B: No unknown) (unknown) (no (unknown) (unknown) History of (units (unk nown) date) Hepatitis C: No unknown) (unknown) (no (unknown) (unknown) History of (units (unk nown) date) surgery unknown) (unknown) (no (unknown) (unknown) [facility] (units (u nknown) date) unknown) (unknown) (no (unknown) (unknown) [facility]. (units (unknown) date) unknown) (unknown) (no (unknown) (unknown) Hx # (units (u nknown) date) Pregnancies unknown) Elective abortions (unknown) (no (unknown) (unknown) Hx # Term (units (unkn own) date) Pregnancies 3 unknown) Ectopic pregnancies (unknown) (no (unknown) (unknown) Hx severe (units (unkn own) date) polyhydramnios unknown) (unknown) (no (unknown) (unknown) Hypothyroid (units (un known) date) unknown) (unknown) (no (unknown) (unknown) will be (units (unknown) date) adopted?: no unknown) (unknown) (no (unknown) (unknown) Infection History (units (unknown) date) unknown) (unknown) (no (unknown) (unknown) Infectious (units (unk nown) date) Disease Education unknown) (unknown) (no (unknown) (unknown) Infectious (units (unk nown) date) disease exposure: unknown) chicken pox immunity discussed, hepatitis risk (unknown) (no (unknown) (unknown) Initial Weight: (units (unknown) date) 255 lb unknown) (unknown) (no (unknown) (unknown) Initials (units (unkno wn) date) unknown) (unknown) (no (unknown) (unknown) Intake Clinical (units (unknown) date) Staff unknown) (unknown) (no (unknown) (unknown) Intake Note: (units (u nknown) date) unknown) (unknown) (no (unknown) (unknown) Intake performed (units (unknown) date) by: Libby Saravia unknown) (unknown) (no (unknown) (unknown) Intake (units (unkno wn) date) unknown) (unknown) (no (unknown) (unknown) LM (units (unkno wn) date) unknown) (unknown) (no (unknown) (unknown) Brittany presents (units ( unknown) date) today with her 3 unknown) kids for a routine OB visit at 24w5d. She (unknown) (no (unknown) (unknown) Live with someone (units (unknown) date) with TB or exposed unknown) to TB: No (unknown) (no (unknown) (unknown) Loc: [facility] (units (unkno wn) date) unknown) (unknown) (no (unknown) (unknown) [id number] (units (unk nown) date) unknown) (unknown) (no (unknown) (unknown) Marital status: (units (unknown) date) unknown) (unknown) (no (unknown) (unknown) Medical History (units (unknown) date) (Updated 07/12/22 unknown) @ 15:10 by Josefina Baumann MD) (unknown) (no (unknown) (unknown) Medications (units (un known) date) unknown) (unknown) (no (unknown) (unknown) Mental health (units ( unknown) date) problem unknown) (unknown) (no (unknown) (unknown) Migraine (units (unkno wn) date) headaches unknown) (unknown) (no (unknown) (unknown) Mother Depression (units (unknown) date) unknown) (unknown) (no (unknown) (unknown) N No no 146 15 (units (unknown) date) N/A absent 4 wks unknown) (unknown) (no (unknown) (unknown) N No no 168 11 (units (unknown) date) N/A absent unknown) long/closed [facility] (unknown) (no (unknown) (unknown) Nearsightedness (units (unknown) date) unknown) (unknown) (no (unknown) (unknown) Notes (units (unkno wn) date) unknown) (unknown) (no (unknown) (unknown) Number of Living (units (unknown) date) Children 3 unknown) (unknown) (no (unknown) (unknown) Number of (units (unkn own) date) fetuses:: Single unknown) (unknown) (no (unknown) (unknown) Nutrition and (units ( unknown) date) weight gain unknown) counseling: special diet: discussed (unknown) (no (unknown) (unknown) OB Office Visit (units (unknown) date) unknown) (unknown) (no (unknown) (unknown) OB Visit Log (units (u nknown) date) unknown) (unknown) (no (unknown) (unknown) Obesity (units (unkno wn) date) unknown) (unknown) (no (unknown) (unknown) On control (units (unknown) date) at conception?: No unknown) (unknown) (no (unknown) (unknown) PFSH (units (unkno wn) date) unknown) (unknown) (no (unknown) (unknown) PTSD (units (unkno wn) date) (post-traumatic unknown) stress disorder) (-1999) (unknown) (no (unknown) (unknown) Painful menstrual (units (unknown) date) periods () unknown) (unknown) (no (unknown) (unknown) Para 3 (units (unkno wn) date) Spontaneous unknown) abortions 1 (unknown) (no (unknown) (unknown) Partner history (units (unknown) date) of STD: denies hx unknown) (unknown) (no (unknown) (unknown) Partner history (units (unknown) date) of genital herpes: unknown) No (unknown) (no (unknown) (unknown) Partner: [facility] (units (unknown) date) [place] unknown) (unknown) (no (unknown) (unknown) Past Pregnancies (units (unknown) date) unknown) (unknown) (no (unknown) (unknown) Patient presents (units (unknown) date) for a new OB visit unknown) at 11 weeks gestation. She has had (unknown) (no (unknown) (unknown) Patient presents (units (unknown) date) for a routine unknown) visit at 15 weeks gestation. Cell (unknown) (no (unknown) (unknown) Patient presents (units (unknown) date) for a routine unknown) visit at 19 weeks gestation. 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: (units ( unknown) date) Pediatric unknown) [facility] (unknown) (no (unknown) (unknown) Personal history (units (unknown) date) of STD: denies hx unknown) (unknown) (no (unknown) (unknown) Personal history (units (unknown) date) of genital herpes: unknown) No (unknown) (no (unknown) (unknown) Planned repeat (units (unknown) date) C/S unknown) (unknown) (no (unknown) (unknown) Polyhydramnios (units (unknown) date) unknown) (unknown) (no (unknown) (unknown) Postive screening (units (unknown) date) CF (In scans) unknown) (unknown) (no (unknown) (unknown) (units (unk nown) date) depression unknown) (unknown) (no (unknown) (unknown) History (units (unknown) date) unknown) (unknown) (no (unknown) (unknown) type:: (units (unknown) date) Other Normal unknown) (unknown) (no (unknown) (unknown) (units (unkno wn) date) Education unknown) (unknown) (no (unknown) (unknown) Initial (units (unknown) date) Assessment unknown) (unknown) (no (unknown) (unknown) Specific (units (unknown) date) Issues/Plans unknown) (unknown) (no (unknown) (unknown) Testing: (units (unknown) date) discussed unknown) (unknown) (no (unknown) (unknown) Visit (units (unknown) date) unknown) (unknown) (no (unknown) (unknown) (units (unkno wn) date) education packet: unknown) symptoms, Vitamins and iron, Diet and (unknown) (no (unknown) (unknown) Previous (units (unknown) date) section unknown) (unknown) (no (unknown) (unknown) Primary Care (units (u nknown) date) Provider: [facility] unknown) [facility] (unknown) (no (unknown) (unknown) Primary Ob (units (unk nown) date) Provider: unknown) Josefina Baumann (unknown) (no (unknown) (unknown) Prior (units (unkno wn) date) GBS-Infected unknown) child: No (unknown) (no (unknown) (unknown) [place] (units (unk nown) date) [place] 4 unknown) (unknown) (no (unknown) (unknown) Providers (units (unkn own) date) unknown) (unknown) (no (unknown) (unknown) Pt here for OB (units (unknown) date) Check w/3D US f/u unknown) anatomy scan (unknown) (no (unknown) (unknown) RPR pos, TPA (units (u nknown) date) negative unknown) (unknown) (no (unknown) (unknown) Rash or viral (units ( unknown) date) illness since last unknown) menstrual period: Yes (minor head cold) (unknown) (no (unknown) (unknown) Reason For Visit (units (unknown) date) unknown) (unknown) (no (unknown) (unknown) Recent travel (units ( unknown) date) outside of unknown) country?: No (unknown) (no (unknown) (unknown) Recurrent (units (unkn own) date) loss or unknown) a stillbirth: No (unknown) (no (unknown) (unknown) Reports Other (units ( unknown) date) (Older son unknown) undergoing genetic workup for currently unidentified (unknown) (no (unknown) (unknown) 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 unknown) (unknown) (no (unknown) (unknown) Safety (units (unkno wn) date) unknown) (unknown) (no (unknown) (unknown) Sauna/hot tub (units ( unknown) date) use, Dental care, unknown) Marijuana use, Travel and Influenza vaccine (no (unknown) (no (unknown) (unknown) Signed By: (units (unk nown) date) unknown) (unknown) (no (unknown) (unknown) Smoking Status: (units (unknown) date) Former smoker unknown) (Quit-2020) (unknown) (no (unknown) (unknown) Social History (units (unknown) date) unknown) (unknown) (no (unknown) (unknown) Son Hearing loss (units (unknown) date) unknown) (unknown) (no (unknown) (unknown) Son undergoing (units (unknown) date) workup at unknown) [facility] (unknown) (no (unknown) (unknown) Support (units (unkno wn) date) Person(s):: [facility] unknown) (unknown) (no (unknown) (unknown) Surgical History (units (unknown) date) (Updated 07/12/22 unknown) @ 15:10 by Josefina Baumann MD) (unknown) (no (unknown) (unknown) Surrogate (units (unkn own) date) ?: no unknown) (unknown) (no (unknown) (unknown) Symptoms since (units (unknown) date) LMP: Reports unknown) amenorrhea, nausea, fatigue, urinary frequency, (unknown) (no (unknown) (unknown) TR Yes no 143 26 (units (unknown) date) N/A absent 4 wks unknown) (unknown) (no (unknown) (unknown) TR Yes no 144 21 (units (unknown) date) N/A absent 4 wks unknown) (unknown) (no (unknown) (unknown) TSH. Discussed (units (unknown) date) TDAP vaccination unknown) nv. 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 [place] (unknown) (no (unknown) (unknown) Tobacco + (units (unkn own) date) Substance Use unknown) (unknown) (no (unknown) (unknown) Tobacco Status (units (unknown) date) unknown) (unknown) (no (unknown) (unknown) Trimester:: 3rd (units (unknown) date) Trimester unknown) (28wks-Del) (unknown) (no (unknown) (unknown) Type(s) of (units (unk nown) date) exercise: walking unknown) (unknown) (no (unknown) (unknown) UProtein Movement (units (unknown) date) PreLabor FHR Fndl unknown) Ht Pres Edema Cerv Exam US/Comment Next Appt (unknown) (no (unknown) (unknown) Varicella/chicken (units (unknown) date) pox status: unknown) immunized (unknown) (no (unknown) (unknown) Visit Date: (units (un known) date) 05/13/22 Last unknown) Updated by: Josefina Baumann MD (unknown) (no (unknown) (unknown) Visit Date: (units (un known) date) 06/09/22 Last unknown) Updated by: Josefina Baumann MD (unknown) (no (unknown) (unknown) Visit Date: (units (un known) date) 07/12/22 Last unknown) Updated by: Josefina Baumann MD (unknown) (no (unknown) (unknown) Visit Date: (units (un known) date) 08/15/22 Last unknown) Updated by: Anita Perez P.A-C (unknown) (no (unknown) (unknown) Visit Reasons: OB (units (unknown) date) CHECK w/3D US + unknown) f/u anatomy (unknown) (no (unknown) (unknown) WG (units (unkno wn) date) unknown) (unknown) (no (unknown) (unknown) Weeks gestation:: (units (unknown) date) 28 unknown) (unknown) (no (unknown) (unknown) [place] teeth (units (u nknown) date) extracted unknown) (unknown) (no (unknown) (unknown) Would like (units (unk nown) date) referral unknown) to [facility] grade breast pump at (unknown) (no (unknown) (unknown) Zika virus (units (unk nown) date) exposure: No unknown) (unknown) (no (unknown) (unknown) additional social (units (unknown) date) history: unknown) Difficulty other children. Would (unknown) (no (unknown) (unknown) alcohol intake: (units (unknown) date) former unknown) (unknown) (no (unknown) (unknown) anyone in either (units (unknown) date) family with: unknown) (unknown) (no (unknown) (unknown) attempted, unable (units (unknown) date) other [place] unknown) (unknown) (no (unknown) (unknown) because she has (units (unknown) date) had difficult unknown) spinals with all 3 of her deliveries. 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 (units (unkn own) date) unknown) (unknown) (no (unknown) (unknown) described, visit (units (unknown) date) schedule reviewed, unknown) ultrasounds policy reviewed, coverage 24 (unknown) (no (unknown) (unknown) discussed, (units (unk nown) date) tuberculosis unknown) exposure discussed, CMV discussed, Toxoplasmosis (unknown) (no (unknown) (unknown) do you feel safe (units (unknown) date) at home: Yes unknown) (unknown) (no (unknown) (unknown) during the past (units (unknown) date) year weight has: unknown) other (wide fluctuations since last ) (unknown) (no (unknown) (unknown) education level: (units (unknown) date) vocational (some unknown) college, certificate programs) (unknown) (no (unknown) (unknown) erm [place] (units (u nknown) date) unknown) (unknown) (no (unknown) (unknown) f/u limited (units (un known) date) anatomy views at unknown) 28wk visit with Dr. Buamann. Ordered OGTT, CBC and (unknown) (no (unknown) (unknown) failure to (units (unk nown) date) progress Rose[place] unknown) (unknown) (no (unknown) (unknown) felt rare (units (unknown) date) movement. No unknown) leakage of fluid or vaginal bleeding. Plan: (unknown) (no (unknown) (unknown) fetoprotein (units (un known) date) ordered. Warning unknown) signs reviewed. Follow-up in 5 weeks. kag (unknown) (no (unknown) (unknown) fire extinguisher (units (unknown) date) in home: Yes unknown) (unknown) (no (unknown) (unknown) firearms in home: (units (unknown) date) Yes firearms unknown) unloaded and locked: Yes (unknown) (no (unknown) (unknown) flaxseed Allergy (units (unknown) date) (Severe, Verified unknown) 09/13/22 08:05) (unknown) (no (unknown) (unknown) flu or covid (units (u nknown) date) vaccines received) unknown) (unknown) (no (unknown) (unknown) free DNA showed (units (unknown) date) normal female. She unknown) continues to have migraines several days a (unknown) (no (unknown) (unknown) grade breast pump (units (unknown) date) that she can have unknown) when she goes home from hospital after (unknown) (no (unknown) (unknown) had her 20 week (units (unknown) date) ultrasound today. unknown) Those results are not available. She has (unknown) (no (unknown) (unknown) had limited heart (units (unknown) date) and outflow tract unknown) views from her anatomy US. Plan 3D US and (unknown) (no (unknown) (unknown) have occurred. If (units (unknown) date) there are any unknown) questions, please contact the Medical Records (unknown) (no (unknown) (unknown) hours a day and (units (unknown) date) participation of unknown) father in care and office visits (unknown) (no (unknown) (unknown) household members: (units (unknown) date) spouse, family unknown) ([id number] and his 3 children (moving out (unknown) (no (unknown) (unknown) housing: house (units (unknown) date) unknown) (unknown) (no (unknown) (unknown) kag (units (unkno wn) date) unknown) (unknown) (no (unknown) (unknown) levothyroxine 125 (units (unknown) date) mcg tablet 125 mcg unknown) PO DAILY #30 tabs 08/25/22 [Rx Confirmed (unknown) (no (unknown) (unknown) lives (units (unkno wn) date) independently: Yes unknown) (unknown) (no (unknown) (unknown) magnesium 200 mg (units (unknown) date) tablet 200 mg PO unknown) DAILY 05/03/22 [History Confirmed 09/13/22] (unknown) (no (unknown) (unknown) marital status: (units (unknown) date) unknown) (unknown) (no (unknown) (unknown) may occur. (units (unk nown) date) Occasional unknown) wrong-word or 'sound-alike' substitutions may have (unknown) (no (unknown) (unknown) medication. No (units (unknown) date) vaginal bleeding. unknown) On ultrasound: Intrauterine gestational sac (unknown) (no (unknown) (unknown) migraines and (units ( unknown) date) these are getting unknown) a little better. She is using the prescribed (unknown) (no (unknown) (unknown) months other Iyla (units (unknown) date) unknown) (unknown) (no (unknown) (unknown) number of (units (unkn own) date) children: 3 unknown) (unknown) (no (unknown) (unknown) occasional 1 (units (u nknown) date) Percocet to treat unknown) these. Plan: 20 week ultrasound ordered. Alpha (unknown) (no (unknown) (unknown) occupational (units (u nknown) date) status: unemployed unknown) and previously employed (unknown) (no (unknown) (unknown) occurred due to (units (unknown) date) the inherent unknown) limitations of voice recognition software. Please (unknown) (no (unknown) (unknown) ondansetron 4 mg (units (unknown) date) disintegrating unknown) tablet 4 mg PO Q6H PRN nausea and vomiting #20 (unknown) (no (unknown) (unknown) oxycodone 5 mg (units (unknown) date) tablet 5 mg PO Q6H unknown) PRN pain #10 tabs 09/09/22 [Rx Confirmed (unknown) (no (unknown) (unknown) pets and animals: (units (unknown) date) Yes (horses) unknown) (unknown) (no (unknown) (unknown) polyhydramnios (units (unknown) date) unknown) (unknown) (no (unknown) (unknown) precautions, (units (u nknown) date) Listeriosis unknown) prevention and Rubella Immunization (unknown) (no (unknown) (unknown) prenat.vits,alexey,m (units (unknown) date) as-unnh-uhuvv 1 unknown) tab PO DAILY 04/22/22 [History Confirmed (unknown) (no (unknown) (unknown) read the note (units ( unknown) date) carefully and unknown) recognize, using context, where these substitutions (unknown) (no (unknown) (unknown) really like to (units (unknown) date) meet w/ IBCLC unknown) prior to delivery and would like Rx for hospital (unknown) (no (unknown) (unknown) reports good (units (u nknown) date) movement and unknown) denies VB, LOF, contractions and cramping. She (unknown) (no (unknown) (unknown) seatbelt use: (units ( unknown) date) always unknown) (unknown) (no (unknown) (unknown) second hand (units (un known) date) exposure: No unknown) (unknown) (no (unknown) (unknown) severe (units (unkno wn) date) polyhydramnios; unknown) laryngomalacia (unknown) (no (unknown) (unknown) software. (units (unkn own) date) Although every unknown) effort is made to edit content, fountain brush assembler errors (unknown) (no (unknown) (unknown) soon)) and (units (unk nown) date) children unknown) (unknown) (no (unknown) (unknown) special [place] (units ( unknown) date) needs: No unknown) (unknown) (no (unknown) (unknown) substance use (units (u nknown) date) type: marijuana unknown) (in the past, not recently and not while ) (unknown) (no (unknown) (unknown) tabs 05/17/22 [Rx (units (unknown) date) Confirmed unknown) 09/13/22] (unknown) (no (unknown) (unknown) term [place] (units ( unknown) date) [place] unknown) (unknown) (no (unknown) (unknown) water heater temp (units (unknown) date) set < 120 deg: Yes unknown) (unknown) (no (unknown) (unknown) week but they are (units (unknown) date) not lasting unknown) multiple days and not as intense. She is using an (unknown) (no (unknown) (unknown) weight gain, Fish (units (unknown) date) and mercury unknown) intake, Caffeine use, Exercise and activity, (unknown) (no (unknown) (unknown) well-balanced (units ( unknown) date) diet: daily or unknown) most days (unknown) (no (unknown) (unknown) with 11 weeks 3 (units (unknown) date) days. Left ovary unknown) is normal. Plan: Cell free DNA ordered. (unknown) (no (unknown) (unknown) with a fetus with (units (unknown) date) a crown-rump unknown) length measuring 4.63 cm. This is consistent (unknown) (no (unknown) (unknown) work/environmenta (units (unknown) date) l/hazards, Sexual unknown) activity, X-ray exposure, Medication use, (unknown) (no (unknown) (unknown) working smoke (units ( unknown) date) detector in home: unknown) Yes Result panel 153 (unknown) (no (unknown) (unknown) (no value) (units (unk nown) date) unknown) (unknown) (no (unknown) (unknown) 'syndrome';) (units (u nknown) date) unknown) (unknown) (no (unknown) (unknown) (+11 lb) 112/62 N (units (unknown) date) unknown) (unknown) (no (unknown) (unknown) (+13 lb) 118/68 N (units (unknown) date) unknown) (unknown) (no (unknown) (unknown) (+21 lb 7 oz) (units ( unknown) date) 98/68 N unknown) (unknown) (no (unknown) (unknown) (+6 lb) 108/68 N (units (unknown) date) unknown) (unknown) (no (unknown) (unknown) Genetic (units (unkn own) date) Screening/Teratolo unknown) gy Counseling - Includes patient, baby's father, or (unknown) (no (unknown) (unknown) -?-?-?-?-?-?-?-?- (units (unknown) date) ?-?-?-? unknown) (unknown) (no (unknown) (unknown) 01/24/14 41 17 7 (units (unknown) date) lb 1 oz Female unknown) live - full t (unknown) (no (unknown) (unknown) 02/19/21 39 7 lb (units (unknown) date) 12 oz Female live unknown) - full term (unknown) (no (unknown) (unknown) 05/13/22 (units (unkno wn) date) unknown) (unknown) (no (unknown) (unknown) 06/09/22 (units (unkno wn) date) unknown) (unknown) (no (unknown) (unknown) 06/16/15 38 7 lb (units (unknown) date) 13 oz Male unknown) live - full (unknown) (no (unknown) (unknown) 07/12/22 (units (unkno wn) date) unknown) (unknown) (no (unknown) (unknown) 08:10 (units (unkno wn) date) unknown) (unknown) (no (unknown) (unknown) 08/15/22 (units (unkno wn) date) unknown) (unknown) (no (unknown) (unknown) 09/13/22 (units (unkno wn) date) unknown) (unknown) (no (unknown) (unknown) 09/13/22] (units (unkn own) date) unknown) (unknown) (no (unknown) (unknown) 10/18/21 8 (units (unk nown) date) spontaneous unknown) (unknown) (no (unknown) (unknown) 11w 2d 261 lb (units ( unknown) date) unknown) (unknown) (no (unknown) (unknown) 11w3d 4 wks (units (un known) date) unknown) (unknown) (no (unknown) (unknown) 15w 1d 266 lb (units ( unknown) date) unknown) (unknown) (no (unknown) (unknown) 19w 6d 268 lb (units ( unknown) date) unknown) (unknown) (no (unknown) (unknown) 24w 5d 276 lb 7 (units (unknown) date) oz unknown) (unknown) (no (unknown) (unknown) 5 wks (units (unkno wn) date) unknown) (unknown) (no (unknown) (unknown) ADHD (units (unkno wn) date) unknown) (unknown) (no (unknown) (unknown) Abnormal lab (units (u nknown) date) values 1st unknown) trimester: discussed (unknown) (no (unknown) (unknown) Add'l Plan (units (unk nown) date) Details unknown) (unknown) (no (unknown) (unknown) Additional (units (unk nown) date) Details:: 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 (unknown) (no (unknown) (unknown) Additional Social (units (unknown) date) History unknown) (unknown) (no (unknown) (unknown) Age/Sex: 32 / F (units (unknown) date) Date of Service: unknown) (unknown) (no (unknown) (unknown) Alcoholism (units (unk nown) date) unknown) (unknown) (no (unknown) (unknown) Allergies (units (unkn own) date) unknown) (unknown) (no (unknown) (unknown) [place] (units ( unknown) date) [id number] unknown) (unknown) (no (unknown) (unknown) Anaphylaxis (units (un known) date) unknown) (unknown) (no (unknown) (unknown) Anesthesia (units (unk nown) date) unknown) (unknown) (no (unknown) (unknown) Aneuploidy (units (unk nown) date) Screening Offered: unknown) Accepted (Would like CFDNA if qualified) (unknown) (no (unknown) (unknown) Anticipated (units (un known) date) course of unknown) care: discussed (unknown) (no (unknown) (unknown) Assessment and (units (unknown) date) Plan unknown) (unknown) (no (unknown) (unknown) Attending Dr: (units ( unknown) date) Josefina Baumann unknown) (unknown) (no (unknown) (unknown) BMI 48.4 (units (unkno wn) date) unknown) (unknown) (no (unknown) (unknown) BP 110/70 (units (unkn own) date) unknown) (unknown) (no (unknown) (unknown) [place] 2 months (units (unknown) date) post-dates unknown) induction (unknown) (no (unknown) (unknown) (units (unkno wn) date) Plan/Preferences unknown) (unknown) (no (unknown) (unknown) Planning (units (unknown) date) unknown) (unknown) (no (unknown) (unknown) Blood Pressure (units (unknown) date) Location Lt unknown) brachial (unknown) (no (unknown) (unknown) Blood (units (unkno wn) date) transfusions?: yes unknown) (Never had but would accept ) (unknown) (no (unknown) (unknown) Breastfeed Preg (units (unknown) date) Comp Name unknown) (unknown) (no (unknown) (unknown) 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) unknown) (unknown) (no (unknown) (unknown) Children's (units (unk nown) date) unknown) (unknown) (no (unknown) (unknown) Current Estimate (units (unknown) date) 11/30/22 LMP unknown) (Certain) 28w 6d (unknown) (no (unknown) (unknown) Current (units (unknown) date) History unknown) (unknown) (no (unknown) (unknown) DNA (units (unkno wn) date) unknown) (unknown) (no (unknown) (unknown) : 1990 (units (unknown) date) Acct:[id number] unknown) (unknown) (no (unknown) (unknown) Date of positive (units (unknown) date) home unknown) test: 03/25/22 (unknown) (no (unknown) (unknown) Date (units (unkno wn) date) unknown) (unknown) (no (unknown) (unknown) Daughter Juvenile (units (unknown) date) arthritis unknown) (unknown) (no (unknown) (unknown) Del. Date (units (unkn own) date) GA/Weeks Labor unknown) Lgth Wt Sex Route Outcome Anesthesia Place (unknown) (no (unknown) (unknown) Delivery Date: (units (unknown) date) 02/19/21 Last unknown) Updated by: Susi Petersen RN (unknown) (no (unknown) (unknown) Delivery Date: (units (unknown) date) 06/16/15 Last unknown) Updated by: Susi Petersen RN (unknown) (no (unknown) (unknown) Delv (units (unkno wn) date) unknown) (unknown) (no (unknown) (unknown) Denies other (units (u nknown) date) unknown) (unknown) (no (unknown) (unknown) Denies over the (units (unknown) date) counter unknown) medications, Denies alcohol, Denies illicit drugs and (unknown) (no (unknown) (unknown) Depression (units (unk nown) date) (-1999) unknown) (unknown) (no (unknown) (unknown) Depression: (units (un known) date) discussed unknown) (unknown) (no (unknown) (unknown) Dept at (units (unkno wn) date) . unknown) (unknown) (no (unknown) (unknown) Diet and Exercise (units (unknown) date) unknown) (unknown) (no (unknown) (unknown) Discussed (units (unkno wn) date) anesthesia, but unknown) encouraged Brittany to discuss this more in depth with (unknown) (no (unknown) (unknown) Documented By: (units (unknown) date) Josefina Baumann unknownRichard FINE 09/13/22 0804 (unknown) (no (unknown) (unknown) Draft (units (unkno wn) date) unknown) (unknown) (no (unknown) (unknown) ECTOR Calculator (units (unknown) date) unknown) (unknown) (no (unknown) (unknown) EGA Weight BP (units ( unknown) date) UGlucose unknown) (unknown) (no (unknown) (unknown) Estimated (units (unkn own) date) Delivery Date unknown) Method Current (unknown) (no (unknown) (unknown) Family History (units (unknown) date) (Updated 06/08/22 unknown) @ 21:23 by Aurora Arevalo) (unknown) (no (unknown) (unknown) Father Diabetes (units (unknown) date) mellitus unknown) (unknown) (no (unknown) (unknown) Father of Baby: (units (unknown) date) same unknown) (unknown) (no (unknown) (unknown) [facility] ([facility] unknown) (unknown) (no (unknown) (unknown) First Trimester (units (unknown) date) Education unknown) Checklist (unknown) (no (unknown) (unknown) Follow-up in 4 (units (unknown) date) weeks. Warning unknown) signs reviewed. kag (unknown) (no (unknown) (unknown) Follow-up in 4 (units (unknown) date) weeks. We will unknown) call with anatomic survey results. (unknown) (no (unknown) (unknown) Foot pain () (units (unknown) date) unknown) (unknown) (no (unknown) (unknown) (units (unkno wn) date) unknown) (unknown) (no (unknown) (unknown) [place] at her next (units (unknown) date) visit. f/u in 4 unknown) weeks. (unknown) (no (unknown) (unknown) Genetic Screening (units (unknown) date) + Counseling unknown) (unknown) (no (unknown) (unknown) Genetic Screening (units (unknown) date) unknown) (unknown) (no (unknown) (unknown) 5 (units (unkn own) date) Multiple births unknown) (unknown) (no (unknown) (unknown) HIV risk (units (unkno wn) date) evaluation: low unknown) risk (unknown) (no (unknown) (unknown) Health Center (units ( unknown) date) Education unknown) (unknown) (no (unknown) (unknown) Health center (units ( unknown) date) information: unknown) nature of practice discussed, personnel (unknown) (no (unknown) (unknown) Heavy menstrual (units (unknown) date) period () unknown) (unknown) (no (unknown) (unknown) Height 5 ft 4 in (units (unknown) date) unknown) (unknown) (no (unknown) (unknown) Hepatitis C risk (units (unknown) date) evaluation: low unknown) risk (unknown) (no (unknown) (unknown) History of (units (unk nown) date) Hepatitis B: No unknown) (unknown) (no (unknown) (unknown) History of (units (unk nown) date) Hepatitis C: No unknown) (unknown) (no (unknown) (unknown) History of (units (unk nown) date) surgery unknown) (unknown) (no (unknown) (unknown) [facility] (units (u nknown) date) unknown) (unknown) (no (unknown) (unknown) [facility]. (units (unknown) date) unknown) (unknown) (no (unknown) (unknown) Hx # (units (u nknown) date) Pregnancies unknown) Elective abortions (unknown) (no (unknown) (unknown) Hx # Term (units (unkn own) date) Pregnancies 3 unknown) Ectopic pregnancies (unknown) (no (unknown) (unknown) Hx severe (units (unkn own) date) polyhydramnios unknown) (unknown) (no (unknown) (unknown) Hypothyroid (units (un known) date) unknown) (unknown) (no (unknown) (unknown) Infant will be (units (unknown) date) adopted?: no unknown) (unknown) (no (unknown) (unknown) Infection History (units (unknown) date) unknown) (unknown) (no (unknown) (unknown) Infectious (units (unk nown) date) Disease Education unknown) (unknown) (no (unknown) (unknown) Infectious (units (unk nown) date) disease exposure: unknown) chicken pox immunity discussed, hepatitis risk (unknown) (no (unknown) (unknown) Initial Weight: (units (unknown) date) 255 lb unknown) (unknown) (no (unknown) (unknown) Initials (units (unkno wn) date) unknown) (unknown) (no (unknown) (unknown) Intake Clinical (units (unknown) date) Staff unknown) (unknown) (no (unknown) (unknown) Intake Note: (units (u nknown) date) unknown) (unknown) (no (unknown) (unknown) Intake performed (units (unknown) date) by: Libby Saravia unknown) (unknown) (no (unknown) (unknown) Intake (units (unkno wn) date) unknown) (unknown) (no (unknown) (unknown) LM (units (unkno wn) date) unknown) (unknown) (no (unknown) (unknown) Brittany presents (units ( unknown) date) today with her 3 unknown) kids for a routine OB visit at 24w5d. She (unknown) (no (unknown) (unknown) Live with someone (units (unknown) date) with TB or exposed unknown) to TB: No (unknown) (no (unknown) (unknown) Loc: [facility] (units (unkno wn) date) unknown) (unknown) (no (unknown) (unknown) [id number] (units (unk nown) date) unknown) (unknown) (no (unknown) (unknown) Marital status: (units (unknown) date) unknown) (unknown) (no (unknown) (unknown) Medical History (units (unknown) date) (Updated 07/12/22 unknown) @ 15:10 by Josefina Baumann MD) (unknown) (no (unknown) (unknown) Medications (units (un known) date) unknown) (unknown) (no (unknown) (unknown) Mental health (units ( unknown) date) problem unknown) (unknown) (no (unknown) (unknown) Migraine (units (unkno wn) date) headaches unknown) (unknown) (no (unknown) (unknown) Mother Depression (units (unknown) date) unknown) (unknown) (no (unknown) (unknown) N No no 146 15 (units (unknown) date) N/A absent 4 wks unknown) (unknown) (no (unknown) (unknown) N No no 168 11 (units (unknown) date) N/A absent unknown) long/closed [facility] (unknown) (no (unknown) (unknown) Nearsightedness (units (unknown) date) unknown) (unknown) (no (unknown) (unknown) Notes (units (unkno wn) date) unknown) (unknown) (no (unknown) (unknown) Number of Living (units (unknown) date) Children 3 unknown) (unknown) (no (unknown) (unknown) Number of (units (unkn own) date) fetuses:: Single unknown) (unknown) (no (unknown) (unknown) Nutrition and (units ( unknown) date) weight gain unknown) counseling: special diet: discussed (unknown) (no (unknown) (unknown) OB Office Visit (units (unknown) date) unknown) (unknown) (no (unknown) (unknown) OB Visit Log (units (u nknown) date) unknown) (unknown) (no (unknown) (unknown) Obesity (units (unkno wn) date) unknown) (unknown) (no (unknown) (unknown) On control (units (unknown) date) at conception?: No unknown) (unknown) (no (unknown) (unknown) PFSH (units (unkno wn) date) unknown) (unknown) (no (unknown) (unknown) PTSD (units (unkno wn) date) (post-traumatic unknown) stress disorder) (-1999) (unknown) (no (unknown) (unknown) Painful menstrual (units (unknown) date) periods (-2019) unknown) (unknown) (no (unknown) (unknown) Pap performed?: (units (unknown) date) No unknown) (unknown) (no (unknown) (unknown) Para 3 (units (unkno wn) date) Spontaneous unknown) abortions 1 (unknown) (no (unknown) (unknown) Partner history (units (unknown) date) of STD: denies hx unknown) (unknown) (no (unknown) (unknown) Partner history (units (unknown) date) of genital herpes: unknown) No (unknown) (no (unknown) (unknown) Partner: Adri[facility] (units (unknown) date) [place] unknown) (unknown) (no (unknown) (unknown) Past Pregnancies (units (unknown) date) unknown) (unknown) (no (unknown) (unknown) Patient presents (units (unknown) date) for a new OB visit unknown) at 11 weeks gestation. She has had (unknown) (no (unknown) (unknown) Patient presents (units (unknown) date) for a routine unknown) visit at 15 weeks gestation. Cell (unknown) (no (unknown) (unknown) Patient presents (units (unknown) date) for a routine unknown) visit at 19 weeks gestation. 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: (units ( unknown) date) Pediatric unknown) [facility] (unknown) (no (unknown) (unknown) Personal history (units (unknown) date) of STD: denies hx unknown) (unknown) (no (unknown) (unknown) Personal history (units (unknown) date) of genital herpes: unknown) No (unknown) (no (unknown) (unknown) Planned repeat (units (unknown) date) C/S unknown) (unknown) (no (unknown) (unknown) Polyhydramnios (units (unknown) date) unknown) (unknown) (no (unknown) (unknown) Position Sitting (units (unknown) date) unknown) (unknown) (no (unknown) (unknown) Postive screening (units (unknown) date) CF (In scans) unknown) (unknown) (no (unknown) (unknown) (units (unk nown) date) depression unknown) (unknown) (no (unknown) (unknown) History (units (unknown) date) unknown) (unknown) (no (unknown) (unknown) type:: (units (unknown) date) Other Normal unknown) (unknown) (no (unknown) (unknown) (units (unkno wn) date) Education unknown) (unknown) (no (unknown) (unknown) Initial (units (unknown) date) Assessment unknown) (unknown) (no (unknown) (unknown) Specific (units (unknown) date) Issues/Plans unknown) (unknown) (no (unknown) (unknown) Testing: (units (unknown) date) discussed unknown) (unknown) (no (unknown) (unknown) Visit (units (unknown) date) unknown) (unknown) (no (unknown) (unknown) (units (unkno wn) date) education packet: unknown) symptoms, Vitamins and iron, Diet and (unknown) (no (unknown) (unknown) Previous (units (unknown) date) section unknown) (unknown) (no (unknown) (unknown) Primary Care (units (u nknown) date) Provider: [place] unknown) [facility] (unknown) (no (unknown) (unknown) Primary Ob (units (unk nown) date) Provider: unknown) Josefina Baumann (unknown) (no (unknown) (unknown) Prior (units (unkno wn) date) GBS-Infected unknown) child: No (unknown) (no (unknown) (unknown) [place] (units (unk nown) date) [place] 4 unknown) (unknown) (no (unknown) (unknown) Providers (units (unkn own) date) unknown) (unknown) (no (unknown) (unknown) Pt here for OB (units (unknown) date) Check w/3D US + unknown) f/u anatomy scan (unknown) (no (unknown) (unknown) RPR pos, TPA (units (u nknown) date) negative unknown) (unknown) (no (unknown) (unknown) Rash or viral (units ( unknown) date) illness since last unknown) menstrual period: Yes (minor head cold) (unknown) (no (unknown) (unknown) Reason For Visit (units (unknown) date) unknown) (unknown) (no (unknown) (unknown) Recent travel (units ( unknown) date) outside of unknown) country?: No (unknown) (no (unknown) (unknown) Recurrent (units (unkn own) date) loss or unknown) a stillbirth: No (unknown) (no (unknown) (unknown) Reports Other (units ( unknown) date) (Older son unknown) undergoing genetic workup for currently unidentified (unknown) (no (unknown) (unknown) 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 unknown) (unknown) (no (unknown) (unknown) Safety (units (unkno wn) date) unknown) (unknown) (no (unknown) (unknown) Sauna/hot tub (units ( unknown) date) use, Dental care, unknown) Marijuana use, Travel and Influenza vaccine (no (unknown) (no (unknown) (unknown) Signed By: (units (unk nown) date) unknown) (unknown) (no (unknown) (unknown) Smoking Status: (units (unknown) date) Former smoker unknown) (Quit-2020) (unknown) (no (unknown) (unknown) Social History (units (unknown) date) unknown) (unknown) (no (unknown) (unknown) Son Hearing loss (units (unknown) date) unknown) (unknown) (no (unknown) (unknown) Son undergoing (units (unknown) date) workup at unknown) [facility] for possible genetic anomaly (unknown) (no (unknown) (unknown) Support (units (unkno wn) date) Person(s):: [facility] unknown) (unknown) (no (unknown) (unknown) Surgical History (units (unknown) date) (Updated 07/12/22 unknown) @ 15:10 by Josefina Baumann MD) (unknown) (no (unknown) (unknown) Surrogate (units (unkn own) date) ?: no unknown) (unknown) (no (unknown) (unknown) Symptoms since (units (unknown) date) LMP: Reports unknown) amenorrhea, nausea, fatigue, urinary frequency, (unknown) (no (unknown) (unknown) TR Yes no 143 26 (units (unknown) date) N/A absent 4 wks unknown) (unknown) (no (unknown) (unknown) TR Yes no 144 21 (units (unknown) date) N/A absent 4 wks unknown) (unknown) (no (unknown) (unknown) TSH. Discussed (units (unknown) date) TDAP vaccination unknown) nv. 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 [place] (unknown) (no (unknown) (unknown) Tobacco + (units (unkn own) date) Substance Use unknown) (unknown) (no (unknown) (unknown) Tobacco Status (units (unknown) date) unknown) (unknown) (no (unknown) (unknown) Trimester:: 3rd (units (unknown) date) Trimester unknown) (28wks-Del) (unknown) (no (unknown) (unknown) Type(s) of (units (unk nown) date) exercise: walking unknown) (unknown) (no (unknown) (unknown) UProtein Movement (units (unknown) date) PreLabor FHR Fndl unknown) Ht Pres Edema Cerv Exam US/Comment Next Appt (unknown) (no (unknown) (unknown) Ultrasound (units (unk nown) date) performed?: Yes unknown) (unknown) (no (unknown) (unknown) Varicella/chicken (units (unknown) date) pox status: unknown) immunized (unknown) (no (unknown) (unknown) Visit Date: (units (un known) date) 05/13/22 Last unknown) Updated by: Josefina Baumann MD (unknown) (no (unknown) (unknown) Visit Date: (units (un known) date) 06/09/22 Last unknown) Updated by: Josefina Baumann MD (unknown) (no (unknown) (unknown) Visit Date: (units (un known) date) 07/12/22 Last unknown) Updated by: Josefina Baumann MD (unknown) (no (unknown) (unknown) Visit Date: (units (un known) date) 08/15/22 Last unknown) Updated by: Anita Perez P.A-C (unknown) (no (unknown) (unknown) Visit Reasons: OB (units (unknown) date) CHECK w/3D US + unknown) f/u anatomy (unknown) (no (unknown) (unknown) Vitals (units (unkno wn) date) unknown) (unknown) (no (unknown) (unknown) WG (units (unkno wn) date) unknown) (unknown) (no (unknown) (unknown) Weeks gestation:: (units (unknown) date) 28 unknown) (unknown) (no (unknown) (unknown) Weight 282 lb (units ( unknown) date) unknown) (unknown) (no (unknown) (unknown) [place] teeth (units (u nknown) date) extracted unknown) (unknown) (no (unknown) (unknown) Would like (units (unk nown) date) referral unknown) to [facility] and [facility] grade breast pump at (unknown) (no (unknown) (unknown) Zika virus (units (unk nown) date) exposure: No unknown) (unknown) (no (unknown) (unknown) additional social (units (unknown) date) history: unknown) Difficulty other children. Would (unknown) (no (unknown) (unknown) alcohol intake: (units (unknown) date) former unknown) (unknown) (no (unknown) (unknown) anyone in either (units (unknown) date) family with: unknown) (unknown) (no (unknown) (unknown) attempted, unable (units (unknown) date) other Lavelle unknown) (unknown) (no (unknown) (unknown) because she has (units (unknown) date) had difficult unknown) spinals with all 3 of her deliveries. 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 (units (unkn own) date) unknown) (unknown) (no (unknown) (unknown) described, visit (units (unknown) date) schedule reviewed, unknown) ultrasounds policy reviewed, coverage 24 (unknown) (no (unknown) (unknown) discussed, (units (unk nown) date) tuberculosis unknown) exposure discussed, CMV discussed, Toxoplasmosis (unknown) (no (unknown) (unknown) do you feel safe (units (unknown) date) at home: Yes unknown) (unknown) (no (unknown) (unknown) during the past (units (unknown) date) year weight has: unknown) other (wide fluctuations since last ) (unknown) (no (unknown) (unknown) education level: (units (unknown) date) vocational (some unknown) college, certificate programs) (unknown) (no (unknown) (unknown) erm [place] (units (u nknown) date) unknown) (unknown) (no (unknown) (unknown) f/u limited (units (un known) date) anatomy views at unknown) 28wk visit with Dr. Baumann. Ordered OGTT, CBC and (unknown) (no (unknown) (unknown) failure to (units (unk nown) date) progress [place] unknown) (unknown) (no (unknown) (unknown) felt rare (units (unknown) date) movement. No unknown) leakage of fluid or vaginal bleeding. Plan: (unknown) (no (unknown) (unknown) fetoprotein (units (un known) date) ordered. Warning unknown) signs reviewed. Follow-up in 5 weeks. kag (unknown) (no (unknown) (unknown) fire extinguisher (units (unknown) date) in home: Yes unknown) (unknown) (no (unknown) (unknown) firearms in home: (units (unknown) date) Yes firearms unknown) unloaded and locked: Yes (unknown) (no (unknown) (unknown) flaxseed Allergy (units (unknown) date) (Severe, Verified unknown) 09/13/22 08:05) (unknown) (no (unknown) (unknown) flu or covid (units (u nknown) date) vaccines received) unknown) (unknown) (no (unknown) (unknown) free DNA showed (units (unknown) date) normal female. She unknown) continues to have migraines several days a (unknown) (no (unknown) (unknown) grade breast pump (units (unknown) date) that she can have unknown) when she goes home from hospital after (unknown) (no (unknown) (unknown) had her 20 week (units (unknown) date) ultrasound today. unknown) Those results are not available. She has (unknown) (no (unknown) (unknown) had limited heart (units (unknown) date) and outflow tract unknown) views from her anatomy US. Plan 3D US and (unknown) (no (unknown) (unknown) have occurred. If (units (unknown) date) there are any unknown) questions, please contact the Medical Records (unknown) (no (unknown) (unknown) hours a day and (units (unknown) date) participation of unknown) father in care and office visits (unknown) (no (unknown) (unknown) household members: (units (unknown) date) spouse, family unknown) ([id number] and his 3 children (moving out (unknown) (no (unknown) (unknown) housing: house (units (unknown) date) unknown) (unknown) (no (unknown) (unknown) kag (units (unkno wn) date) unknown) (unknown) (no (unknown) (unknown) levothyroxine 125 (units (unknown) date) mcg tablet 125 mcg unknown) PO DAILY #30 tabs 08/25/22 [Rx Confirmed (unknown) (no (unknown) (unknown) lives (units (unkno wn) date) independently: Yes unknown) (unknown) (no (unknown) (unknown) magnesium 200 mg (units (unknown) date) tablet 200 mg PO unknown) DAILY 05/03/22 [History Confirmed 09/13/22] (unknown) (no (unknown) (unknown) marital status: (units (unknown) date) unknown) (unknown) (no (unknown) (unknown) may occur. (units (unk nown) date) Occasional unknown) wrong-word or 'sound-alike' substitutions may have (unknown) (no (unknown) (unknown) medication. No (units (unknown) date) vaginal bleeding. unknown) On ultrasound: Intrauterine gestational sac (unknown) (no (unknown) (unknown) migraines and (units ( unknown) date) these are getting unknown) a little better. She is using the prescribed (unknown) (no (unknown) (unknown) months other Iyla (units (unknown) date) unknown) (unknown) (no (unknown) (unknown) number of (units (unkn own) date) children: 3 unknown) (unknown) (no (unknown) (unknown) occasional 1 (units (u nknown) date) Percocet to treat unknown) these. Plan: 20 week ultrasound ordered. Alpha (unknown) (no (unknown) (unknown) occupational (units (u nknown) date) status: unemployed unknown) and previously employed (unknown) (no (unknown) (unknown) occurred due to (units (unknown) date) the inherent unknown) limitations of voice recognition software. Please (unknown) (no (unknown) (unknown) ondansetron 4 mg (units (unknown) date) disintegrating unknown) tablet 4 mg PO Q6H PRN nausea and vomiting #20 (unknown) (no (unknown) (unknown) oxycodone 5 mg (units (unknown) date) tablet 5 mg PO Q6H unknown) PRN pain #10 tabs 09/09/22 [Rx Confirmed (unknown) (no (unknown) (unknown) pets and animals: (units (unknown) date) Yes (horses) unknown) (unknown) (no (unknown) (unknown) polyhydramnios (units (unknown) date) unknown) (unknown) (no (unknown) (unknown) precautions, (units (u nknown) date) Listeriosis unknown) prevention and Rubella Immunization (unknown) (no (unknown) (unknown) prenat.vits,alexey,m (units (unknown) date) [id number] 1 unknown) tab PO DAILY 04/22/22 [History Confirmed (unknown) (no (unknown) (unknown) read the note (units ( unknown) date) carefully and unknown) recognize, using context, where these substitutions (unknown) (no (unknown) (unknown) really like to (units (unknown) date) meet w/ IBCLC unknown) prior to delivery and would like Rx for hospital (unknown) (no (unknown) (unknown) reports good (units (u nknown) date) movement and unknown) denies VB, LOF, contractions and cramping. She (unknown) (no (unknown) (unknown) seatbelt use: (units ( unknown) date) always unknown) (unknown) (no (unknown) (unknown) second hand (units (un known) date) exposure: No unknown) (unknown) (no (unknown) (unknown) severe (units (unkno wn) date) polyhydramnios; unknown) laryngomalacia (unknown) (no (unknown) (unknown) software. (units (unkn own) date) Although every unknown) effort is made to edit content, fountain brush assembler errors (unknown) (no (unknown) (unknown) soon)) and (units (unk nown) date) children unknown) (unknown) (no (unknown) (unknown) special [place]land (units ( unknown) date) needs: No unknown) (unknown) (no (unknown) (unknown) substance use (units (u nknown) date) type: marijuana unknown) (in the past, not recently and not while ) (unknown) (no (unknown) (unknown) tabs 05/17/22 [Rx (units (unknown) date) Confirmed unknown) 09/13/22] (unknown) (no (unknown) (unknown) term [place] (units ( unknown) date) [place] unknown) (unknown) (no (unknown) (unknown) water heater temp (units (unknown) date) set < 120 deg: Yes unknown) (unknown) (no (unknown) (unknown) week but they are (units (unknown) date) not lasting unknown) multiple days and not as intense. She is using an (unknown) (no (unknown) (unknown) weight gain, Fish (units (unknown) date) and mercury unknown) intake, Caffeine use, Exercise and activity, (unknown) (no (unknown) (unknown) well-balanced (units ( unknown) date) diet: daily or unknown) most days (unknown) (no (unknown) (unknown) with 11 weeks 3 (units (unknown) date) days. Left ovary unknown) is normal. Plan: Cell free DNA ordered. (unknown) (no (unknown) (unknown) with a fetus with (units (unknown) date) a crown-rump unknown) length measuring 4.63 cm. This is consistent (unknown) (no (unknown) (unknown) work/environmenta (units (unknown) date) l/hazards, Sexual unknown) activity, X-ray exposure, Medication use, (unknown) (no (unknown) (unknown) working smoke (units ( unknown) date) detector in home: unknown) Yes Result panel 154 (unknown) (no (unknown) (unknown) (no value) (units (unk nown) date) unknown) (unknown) (no (unknown) (unknown) 'syndrome';) (units (u nknown) date) unknown) (unknown) (no (unknown) (unknown) (+11 lb) 112/62 N (units (unknown) date) unknown) (unknown) (no (unknown) (unknown) (+13 lb) 118/68 N (units (unknown) date) unknown) (unknown) (no (unknown) (unknown) (+21 lb 7 oz) (units ( unknown) date) 98/68 N unknown) (unknown) (no (unknown) (unknown) (+27 lb) 110/70 (units (unknown) date) unknown) (unknown) (no (unknown) (unknown) (+6 lb) 108/68 N (units (unknown) date) unknown) (unknown) (no (unknown) (unknown) (1) 28 weeks (units (u nknown) date) gestation of unknown) : (unknown) (no (unknown) (unknown) Genetic (units (unkn own) date) Screening/Teratolo unknown) gy Counseling - Includes patient, baby's father, or (unknown) (no (unknown) (unknown) -?-?-?-?-?-?-?-?- (units (unknown) date) ?-?-?-? unknown) (unknown) (no (unknown) (unknown) 0.5 mL 0RF NS Z23 (units (unknown) date) - Encounter for unknown) immunization (unknown) (no (unknown) (unknown) 01/24/14 41 17 7 (units (unknown) date) lb 1 oz Female unknown) live - full t (unknown) (no (unknown) (unknown) 02/19/21 39 7 lb (units (unknown) date) 12 oz Female live unknown) - full term (unknown) (no (unknown) (unknown) 05/13/22 (units (unkno wn) date) unknown) (unknown) (no (unknown) (unknown) 06/09/22 (units (unkno wn) date) unknown) (unknown) (no (unknown) (unknown) 06/16/15 38 7 lb (units (unknown) date) 13 oz Male unknown) live - full (unknown) (no (unknown) (unknown) 07/12/22 (units (unkno wn) date) unknown) (unknown) (no (unknown) (unknown) 08:10 (units (unkno wn) date) unknown) (unknown) (no (unknown) (unknown) 08/15/22 (units (unkno wn) date) unknown) (unknown) (no (unknown) (unknown) 09/13/22 0838 (units ( unknown) date) unknown) (unknown) (no (unknown) (unknown) 09/13/22 (units (unkno wn) date) unknown) (unknown) (no (unknown) (unknown) 09/13/22] (units (unkn own) date) unknown) (unknown) (no (unknown) (unknown) 11/29/21 8 (units (unk nown) date) spontaneous unknown) (unknown) (no (unknown) (unknown) 11w 2d 261 lb (units ( unknown) date) unknown) (unknown) (no (unknown) (unknown) 11w3d 4 wks (units (un known) date) unknown) (unknown) (no (unknown) (unknown) 15w 1d 266 lb (units ( unknown) date) unknown) (unknown) (no (unknown) (unknown) 19w 6d 268 lb (units ( unknown) date) unknown) (unknown) (no (unknown) (unknown) 2 lb 15 oz. (units (un known) date) 55%ile. Placenta unknown) grade 0 and anterior. Normal amniotic fluid (unknown) (no (unknown) (unknown) 24w 5d 276 lb 7 (units (unknown) date) oz unknown) (unknown) (no (unknown) (unknown) 28w 6d 282 lb (units ( unknown) date) unknown) (unknown) (no (unknown) (unknown) 3 wks (units (unkno wn) date) unknown) (unknown) (no (unknown) (unknown) 5 wks (units (unkno wn) date) unknown) (unknown) (no (unknown) (unknown) ADHD (units (unkno wn) date) unknown) (unknown) (no (unknown) (unknown) Abnormal lab (units (u nknown) date) values 1st unknown) trimester: discussed (unknown) (no (unknown) (unknown) Adacel(Tdap (units (un known) date) Adolesn/Adult)(PF) unknown) (diph,pertuss(acel ),tet vac(PF)) 0.5 mL IM ONCE (unknown) (no (unknown) (unknown) Add'l Plan (units (unk nown) date) Details unknown) (unknown) (no (unknown) (unknown) Additional (units (unk nown) date) Details:: 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 (unknown) (no (unknown) (unknown) Additional Social (units (unknown) date) History unknown) (unknown) (no (unknown) (unknown) Age/Sex: 32 / F (units (unknown) date) Date of Service: unknown) (unknown) (no (unknown) (unknown) Alcoholism (units (unk nown) date) unknown) (unknown) (no (unknown) (unknown) Allergies (units (unkn own) date) unknown) (unknown) (no (unknown) (unknown) [place], [place] (units ( unknown) date) [id number] unknown) (unknown) (no (unknown) (unknown) Anaphylaxis (units (un known) date) unknown) (unknown) (no (unknown) (unknown) Anesthesia (units (unk nown) date) unknown) (unknown) (no (unknown) (unknown) Aneuploidy (units (unk nown) date) Screening Offered: unknown) Accepted (Would like CFDNA if qualified) (unknown) (no (unknown) (unknown) Anticipated (units (un known) date) course of unknown) care: discussed (unknown) (no (unknown) (unknown) Assessment and (units (unknown) date) Plan unknown) (unknown) (no (unknown) (unknown) Attending Dr: (units ( unknown) date) [place] Baumann unknown) (unknown) (no (unknown) (unknown) BMI 48.4 (units (unkno wn) date) unknown) (unknown) (no (unknown) (unknown) BP 110/70 (units (unkn own) date) unknown) (unknown) (no (unknown) (unknown) [place] 2 months (units (unknown) date) post-dates unknown) induction (unknown) (no (unknown) (unknown) (units (unkno wn) date) Plan/Preferences unknown) (unknown) (no (unknown) (unknown) Planning (units (unknown) date) unknown) (unknown) (no (unknown) (unknown) Blood Pressure (units (unknown) date) Location Lt unknown) brachial (unknown) (no (unknown) (unknown) Blood (units (unkno wn) date) transfusions?: yes unknown) (Never had but would accept ) (unknown) (no (unknown) (unknown) Breastfeed Preg (units (unknown) date) Comp Name unknown) (unknown) (no (unknown) (unknown) 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) unknown) (unknown) (no (unknown) (unknown) Children's (units (unk nown) date) unknown) (unknown) (no (unknown) (unknown) Current Estimate (units (unknown) date) 01/11/23 LMP unknown) (Certain) 28w 6d (unknown) (no (unknown) (unknown) Current (units (unknown) date) History unknown) (unknown) (no (unknown) (unknown) DNA (units (unkno wn) date) unknown) (unknown) (no (unknown) (unknown) : 1990 (units (unknown) date) Acct:[id number] unknown) (unknown) (no (unknown) (unknown) Date of positive (units (unknown) date) home unknown) test: 03/25/22 (unknown) (no (unknown) (unknown) Date (units (unkno wn) date) unknown) (unknown) (no (unknown) (unknown) Daughter Juvenile (units (unknown) date) arthritis unknown) (unknown) (no (unknown) (unknown) Del. Date (units (unkn own) date) GA/Weeks Labor unknown) Lgth Wt Sex Route Outcome Anesthesia Place (unknown) (no (unknown) (unknown) Delivery Date: (units (unknown) date) 02/19/21 Last unknown) Updated by: Susi Petersen RN (unknown) (no (unknown) (unknown) Delivery Date: (units (unknown) date) 06/16/15 Last unknown) Updated by: Susi Petersen RN (unknown) (no (unknown) (unknown) Delv (units (unkno wn) date) unknown) (unknown) (no (unknown) (unknown) Denies other (units (u nknown) date) unknown) (unknown) (no (unknown) (unknown) Denies over the (units (unknown) date) counter unknown) medications, Denies alcohol, Denies illicit drugs and (unknown) (no (unknown) (unknown) Depression (units (unk nown) date) (-1999) unknown) (unknown) (no (unknown) (unknown) Depression: (units (un known) date) discussed unknown) (unknown) (no (unknown) (unknown) Dept at (units (unkno wn) date) . unknown) (unknown) (no (unknown) (unknown) Diet and Exercise (units (unknown) date) unknown) (unknown) (no (unknown) (unknown) Discussed (units (unkno wn) date) anesthesia, but unknown) encouraged Brittany to discuss this more in depth with (unknown) (no (unknown) (unknown) Documented By: (units (unknown) date) [place] Baumann unknown) 09/13/22 0804 (unknown) (no (unknown) (unknown) ECTOR Calculator (units (unknown) date) unknown) (unknown) (no (unknown) (unknown) EGA Weight BP (units ( unknown) date) UGlucose unknown) (unknown) (no (unknown) (unknown) Estimated (units (unkn own) date) Delivery Date unknown) Method Current (unknown) (no (unknown) (unknown) Family History (units (unknown) date) (Updated 06/08/22 unknown) @ 21:23 by Aurora Arevalo) (unknown) (no (unknown) (unknown) Father Diabetes (units (unknown) date) mellitus unknown) (unknown) (no (unknown) (unknown) Father of Baby: (units (unknown) date) same unknown) (unknown) (no (unknown) (unknown) [facility] ([facility] unknown) (unknown) (no (unknown) (unknown) First Trimester (units (unknown) date) Education unknown) Checklist (unknown) (no (unknown) (unknown) Follow-up in 4 (units (unknown) date) weeks. Warning unknown) signs reviewed. kag (unknown) (no (unknown) (unknown) Follow-up in 4 (units (unknown) date) weeks. We will unknown) call with anatomic survey results. (unknown) (no (unknown) (unknown) Foot pain (-2020) (units (unknown) date) unknown) (unknown) (no (unknown) (unknown) (units (unkno wn) date) unknown) (unknown) (no (unknown) (unknown) Pastor at her next (units (unknown) date) visit. f/u in 4 unknown) weeks. (unknown) (no (unknown) (unknown) Genetic Screening (units (unknown) date) + Counseling unknown) (unknown) (no (unknown) (unknown) Genetic Screening (units (unknown) date) unknown) (unknown) (no (unknown) (unknown) 5 (units (unkn own) date) Multiple births unknown) (unknown) (no (unknown) (unknown) HIV risk (units (unkno wn) date) evaluation: low unknown) risk (unknown) (no (unknown) (unknown) Health Center (units ( unknown) date) Education unknown) (unknown) (no (unknown) (unknown) Health center (units ( unknown) date) information: unknown) nature of practice discussed, personnel (unknown) (no (unknown) (unknown) Heavy menstrual (units (unknown) date) period (-2020) unknown) (unknown) (no (unknown) (unknown) Height 5 ft 4 in (units (unknown) date) unknown) (unknown) (no (unknown) (unknown) Hepatitis C risk (units (unknown) date) evaluation: low unknown) risk (unknown) (no (unknown) (unknown) History of (units (unk nown) date) Hepatitis B: No unknown) (unknown) (no (unknown) (unknown) History of (units (unk nown) date) Hepatitis C: No unknown) (unknown) (no (unknown) (unknown) History of (units (unk nown) date) surgery unknown) (unknown) (no (unknown) (unknown) Hospital: [facility] (units (u nknown) date) unknown) (unknown) (no (unknown) (unknown) [facility]. (units (unknown) date) unknown) (unknown) (no (unknown) (unknown) Hx # (units (u nknown) date) Pregnancies unknown) Elective abortions (unknown) (no (unknown) (unknown) Hx # Term (units (unkn own) date) Pregnancies 3 unknown) Ectopic pregnancies (unknown) (no (unknown) (unknown) Hx severe (units (unkn own) date) polyhydramnios unknown) (unknown) (no (unknown) (unknown) Hypothyroid (units (un known) date) unknown) (unknown) (no (unknown) (unknown) will be (units (unknown) date) adopted?: no unknown) (unknown) (no (unknown) (unknown) Infection History (units (unknown) date) unknown) (unknown) (no (unknown) (unknown) Infectious (units (unk nown) date) Disease Education unknown) (unknown) (no (unknown) (unknown) Infectious (units (unk nown) date) disease exposure: unknown) chicken pox immunity discussed, hepatitis risk (unknown) (no (unknown) (unknown) Initial Weight: (units (unknown) date) 255 lb unknown) (unknown) (no (unknown) (unknown) Initials (units (unkno wn) date) unknown) (unknown) (no (unknown) (unknown) Intake Clinical (units (unknown) date) Staff unknown) (unknown) (no (unknown) (unknown) Intake Note: (units (u nknown) date) unknown) (unknown) (no (unknown) (unknown) Intake performed (units (unknown) date) by: Libby Saravia unknown) (unknown) (no (unknown) (unknown) Intake (units (unkno wn) date) unknown) (unknown) (no (unknown) (unknown) LM (units (unkno wn) date) unknown) (unknown) (no (unknown) (unknown) Brittany presents (units ( unknown) date) today with her 3 unknown) kids for a routine OB visit at 24w5d. She (unknown) (no (unknown) (unknown) Live with someone (units (unknown) date) with TB or exposed unknown) to TB: No (unknown) (no (unknown) (unknown) Loc: [facility] (units (unkno wn) date) unknown) (unknown) (no (unknown) (unknown) [id number] (units (unk nown) date) unknown) (unknown) (no (unknown) (unknown) Marital status: (units (unknown) date) unknown) (unknown) (no (unknown) (unknown) Medical History (units (unknown) date) (Updated 07/12/22 unknown) @ 15:10 by Josefina Baumann MD) (unknown) (no (unknown) (unknown) Medications (units (un known) date) unknown) (unknown) (no (unknown) (unknown) Medications: (units (u nknown) date) unknown) (unknown) (no (unknown) (unknown) Mental health (units ( unknown) date) problem unknown) (unknown) (no (unknown) (unknown) Migraine (units (unkno wn) date) headaches unknown) (unknown) (no (unknown) (unknown) Mother Depression (units (unknown) date) unknown) (unknown) (no (unknown) (unknown) N No no 146 15 (units (unknown) date) N/A absent 4 wks unknown) (unknown) (no (unknown) (unknown) N No no 168 11 (units (unknown) date) N/A absent unknown) long/closed [facility] (unknown) (no (unknown) (unknown) Nearsightedness (units (unknown) date) unknown) (unknown) (no (unknown) (unknown) New (units (unkno wn) date) unknown) (unknown) (no (unknown) (unknown) Notes (units (unkno wn) date) unknown) (unknown) (no (unknown) (unknown) Number of Living (units (unknown) date) Children 3 unknown) (unknown) (no (unknown) (unknown) Number of (units (unkn own) date) fetuses:: Single unknown) (unknown) (no (unknown) (unknown) Nutrition and (units ( unknown) date) weight gain unknown) counseling: special diet: discussed (unknown) (no (unknown) (unknown) OB Office Visit (units (unknown) date) unknown) (unknown) (no (unknown) (unknown) OB Visit Log (units (u nknown) date) unknown) (unknown) (no (unknown) (unknown) Obesity (units (unkno wn) date) unknown) (unknown) (no (unknown) (unknown) On control (units (unknown) date) at conception?: No unknown) (unknown) (no (unknown) (unknown) Orders (units (unkno wn) date) unknown) (unknown) (no (unknown) (unknown) Orders: (units (unkno wn) date) unknown) (unknown) (no (unknown) (unknown) PFSH (units (unkno wn) date) unknown) (unknown) (no (unknown) (unknown) PTSD (units (unkno wn) date) (post-traumatic unknown) stress disorder) (-1999) (unknown) (no (unknown) (unknown) Painful menstrual (units (unknown) date) periods (-2019) unknown) (unknown) (no (unknown) (unknown) Pap performed?: (units (unknown) date) No unknown) (unknown) (no (unknown) (unknown) Para 3 (units (unkno wn) date) Spontaneous unknown) abortions 1 (unknown) (no (unknown) (unknown) Partner history (units (unknown) date) of STD: denies hx unknown) (unknown) (no (unknown) (unknown) Partner history (units (unknown) date) of genital herpes: unknown) No (unknown) (no (unknown) (unknown) Partner: [facility] (units (unknown) date) [place] unknown) (unknown) (no (unknown) (unknown) Past Pregnancies (units (unknown) date) unknown) (unknown) (no (unknown) (unknown) Patient presents (units (unknown) date) for a new OB visit unknown) at 11 weeks gestation. She has had (unknown) (no (unknown) (unknown) Patient presents (units (unknown) date) for a routine unknown) visit at 15 weeks gestation. Cell (unknown) (no (unknown) (unknown) Patient presents (units (unknown) date) for a routine unknown) visit at 19 weeks gestation. She (unknown) (no (unknown) (unknown) Patient presents (units (unknown) date) for a routine unknown) visit at 28 weeks gestation. 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: (units ( unknown) date) Pediatric unknown) [facility] (unknown) (no (unknown) (unknown) Personal history (units (unknown) date) of STD: denies hx unknown) (unknown) (no (unknown) (unknown) Personal history (units (unknown) date) of genital herpes: unknown) No (unknown) (no (unknown) (unknown) Planned repeat (units (unknown) date) C/S, 11/24/22 unknown) (unknown) (no (unknown) (unknown) Polyhydramnios (units (unknown) date) unknown) (unknown) (no (unknown) (unknown) Position Sitting (units (unknown) date) unknown) (unknown) (no (unknown) (unknown) Postive screening (units (unknown) date) CF (In scans) unknown) (unknown) (no (unknown) (unknown) (units (unk nown) date) depression unknown) (unknown) (no (unknown) (unknown) History (units (unknown) date) unknown) (unknown) (no (unknown) (unknown) type:: (units (unknown) date) Other Normal unknown) (unknown) (no (unknown) (unknown) (units (unkno wn) date) Education unknown) (unknown) (no (unknown) (unknown) Initial (units (unknown) date) Assessment unknown) (unknown) (no (unknown) (unknown) Specific (units (unknown) date) Issues/Plans unknown) (unknown) (no (unknown) (unknown) Testing: (units (unknown) date) discussed unknown) (unknown) (no (unknown) (unknown) Visit (units (unknown) date) unknown) (unknown) (no (unknown) (unknown) (units (unkno wn) date) education packet: unknown) symptoms, Vitamins and iron, Diet and (unknown) (no (unknown) (unknown) Previous (units (unknown) date) section unknown) (unknown) (no (unknown) (unknown) Primary Care (units (u nknown) date) Provider: [facility] unknown) Health (unknown) (no (unknown) (unknown) Primary Ob (units (unk nown) date) Provider: unknown) Josefina Baumann (unknown) (no (unknown) (unknown) Prior (units (unkno wn) date) GBS-Infected unknown) child: No (unknown) (no (unknown) (unknown) [place] (units (unk nown) date) [place] 4 unknown) (unknown) (no (unknown) (unknown) Providers (units (unkn own) date) unknown) (unknown) (no (unknown) (unknown) Pt here for OB (units (unknown) date) Check w/3D US + unknown) f/u anatomy scan (unknown) (no (unknown) (unknown) RPR pos, TPA (units (u nknown) date) negative unknown) (unknown) (no (unknown) (unknown) Rash or viral (units ( unknown) date) illness since last unknown) menstrual period: Yes (minor head cold) (unknown) (no (unknown) (unknown) Reason For Visit (units (unknown) date) unknown) (unknown) (no (unknown) (unknown) Recent travel (units ( unknown) date) outside of unknown) country?: No (unknown) (no (unknown) (unknown) Recurrent (units (unkn own) date) loss or unknown) a stillbirth: No (unknown) (no (unknown) (unknown) Reports Other (units ( unknown) date) (Older son unknown) undergoing genetic workup for currently unidentified (unknown) (no (unknown) (unknown) 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 unknown) (unknown) (no (unknown) (unknown) Safety (units (unkno wn) date) unknown) (unknown) (no (unknown) (unknown) Sauna/hot tub (units ( unknown) date) use, Dental care, unknown) Marijuana use, Travel and Influenza vaccine (no (unknown) (no (unknown) (unknown) Signed By: (units (unk nown) date) <Electronically unknown) signed by Josefina Baumann MD> (unknown) (no (unknown) (unknown) Signed (units (unkno wn) date) unknown) (unknown) (no (unknown) (unknown) Smoking Status: (units (unknown) date) Former smoker unknown) (Quit-2020) (unknown) (no (unknown) (unknown) Social History (units (unknown) date) unknown) (unknown) (no (unknown) (unknown) Son Hearing loss (units (unknown) date) unknown) (unknown) (no (unknown) (unknown) Son undergoing (units (unknown) date) [facility] ([facility]) (no (unknown) (unknown) Support (units (unkno wn) date) Person(s):: Adriano unknown) (unknown) (no (unknown) (unknown) Surgical History (units (unknown) date) (Updated 07/12/22 unknown) @ 15:10 by Josefina Baumann MD) (unknown) (no (unknown) (unknown) Surrogate (units (unkn own) date) ?: no unknown) (unknown) (no (unknown) (unknown) Symptoms since (units (unknown) date) LMP: Reports unknown) amenorrhea, nausea, fatigue, urinary frequency, (unknown) (no (unknown) (unknown) TR Yes no 143 26 (units (unknown) date) N/A absent 4 wks unknown) (unknown) (no (unknown) (unknown) TR Yes no 144 21 (units (unknown) date) N/A absent 4 wks unknown) (unknown) (no (unknown) (unknown) TSH. Discussed (units (unknown) date) TDAP vaccination unknown) nv. She had questions regarding anesthesia (unknown) (no (unknown) (unknown) Tdap Adult (units (unk nown) date) (Adacel) Today Z23 unknown) - Encounter for immunization (unknown) (no (unknown) (unknown) Teratogen (units (unkn own) date) Exposures since unknown) LMP/Conception: Denies prescription medications, (unknown) (no (unknown) (unknown) Testing Education (units (unknown) date) unknown) (unknown) (no (unknown) (unknown) Testing education (units (unknown) date) completed: group B unknown) strep, Spina bifida testing and Cell Free (unknown) (no (unknown) (unknown) This note may (units ( unknown) date) have been all or unknown) partially generated using voice recognition (unknown) (no (unknown) (unknown) 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 [place] (unknown) (no (unknown) (unknown) Tobacco + (units (unkn own) date) Substance Use unknown) (unknown) (no (unknown) (unknown) Tobacco Status (units (unknown) date) unknown) (unknown) (no (unknown) (unknown) Trimester:: 3rd (units (unknown) date) Trimester unknown) (28wks-Del) (unknown) (no (unknown) (unknown) Type(s) of (units (unk nown) date) exercise: walking unknown) (unknown) (no (unknown) (unknown) UProtein Movement (units (unknown) date) PreLabor FHR Fndl unknown) Ht Pres Edema Cerv Exam US/Comment Next Appt (unknown) (no (unknown) (unknown) Ultrasound (units (unk nown) date) performed?: Yes unknown) (unknown) (no (unknown) (unknown) Varicella/chicken (units (unknown) date) pox status: unknown) immunized (unknown) (no (unknown) (unknown) Visit Date: (units (un known) date) 05/13/22 Last unknown) Updated by: Josefina Baumann MD (unknown) (no (unknown) (unknown) Visit Date: (units (un known) date) 06/09/22 Last unknown) Updated by: Josefina Baumann MD (unknown) (no (unknown) (unknown) Visit Date: (units (un known) date) 07/12/22 Last unknown) Updated by: Josefina Baumann MD (unknown) (no (unknown) (unknown) Visit Date: (units (un known) date) 08/15/22 Last unknown) Updated by: Anita Perez P.A-C (unknown) (no (unknown) (unknown) Visit Date: (units (un known) date) 09/13/22 Last unknown) Updated by: Josefina Baumann MD (unknown) (no (unknown) (unknown) Visit Reasons: OB (units (unknown) date) CHECK w/3D US + unknown) f/u anatomy (unknown) (no (unknown) (unknown) Vitals (units (unkno wn) date) unknown) (unknown) (no (unknown) (unknown) WG (units (unkno wn) date) unknown) (unknown) (no (unknown) (unknown) Weeks gestation:: (units (unknown) date) 28 unknown) (unknown) (no (unknown) (unknown) Weight 282 lb (units ( unknown) date) unknown) (unknown) (no (unknown) (unknown) [place] teeth (units (u nknown) date) extracted unknown) (unknown) (no (unknown) (unknown) Would like (units (unk nown) date) [facility] unknown[facility] grade breast pump at (unknown) (no (unknown) (unknown) Yes no 138 30 (units ( unknown) date) Breech absent AGA unknown) 29w2d (unknown) (no (unknown) (unknown) Zika virus (units (unk nown) date) exposure: No unknown) (unknown) (no (unknown) (unknown) additional social (units (unknown) date) history: unknown) Difficulty other children. Would (unknown) (no (unknown) (unknown) alcohol intake: (units (unknown) date) former unknown) (unknown) (no (unknown) (unknown) anyone in either (units (unknown) date) family with: unknown) (unknown) (no (unknown) (unknown) attempted, unable (units (unknown) date) other Lavelle unknown) (unknown) (no (unknown) (unknown) because she has (units (unknown) date) had difficult unknown) spinals with all 3 of her deliveries. 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 (units (unkn own) date) unknown) (unknown) (no (unknown) (unknown) described, visit (units (unknown) date) schedule reviewed, unknown) ultrasounds policy reviewed, coverage 24 (unknown) (no (unknown) (unknown) discussed, (units (unk nown) date) tuberculosis unknown) exposure discussed, CMV discussed, Toxoplasmosis (unknown) (no (unknown) (unknown) do you feel safe (units (unknown) date) at home: Yes unknown) (unknown) (no (unknown) (unknown) during the past (units (unknown) date) year weight has: unknown) other (wide fluctuations since last ) (unknown) (no (unknown) (unknown) education level: (units (unknown) date) vocational (some unknown) college, certificate programs) (unknown) (no (unknown) (unknown) erm [place] (units (u nknown) date) unknown) (unknown) (no (unknown) (unknown) f/u limited (units (un known) date) anatomy views at unknown) 28wk visit with Dr. Baumann. Ordered OGTT, CBC and (unknown) (no (unknown) (unknown) failure to (units (unk nown) date) progress Rosey unknown) (unknown) (no (unknown) (unknown) felt rare (units (unknown) date) movement. No unknown) leakage of fluid or vaginal bleeding. Plan: (unknown) (no (unknown) (unknown) fetoprotein (units (un known) date) ordered. Warning unknown) signs reviewed. Follow-up in 5 weeks. kag (unknown) (no (unknown) (unknown) fire extinguisher (units (unknown) date) in home: Yes unknown) (unknown) (no (unknown) (unknown) firearms in home: (units (unknown) date) Yes firearms unknown) unloaded and locked: Yes (unknown) (no (unknown) (unknown) flaxseed Allergy (units (unknown) date) (Severe, Verified unknown) 09/13/22 08:05) (unknown) (no (unknown) (unknown) flu or covid (units (u nknown) date) vaccines received) unknown) (unknown) (no (unknown) (unknown) free DNA showed (units (unknown) date) normal female. She unknown) continues to have migraines several days a (unknown) (no (unknown) (unknown) grade breast pump (units (unknown) date) that she can have unknown) when she goes home from hospital after (unknown) (no (unknown) (unknown) had her 20 week (units (unknown) date) ultrasound today. unknown) Those results are not available. She has (unknown) (no (unknown) (unknown) had limited heart (units (unknown) date) and outflow tract unknown) views from her anatomy US. Plan 3D US and (unknown) (no (unknown) (unknown) have occurred. If (units (unknown) date) there are any unknown) questions, please contact the Medical Records (unknown) (no (unknown) (unknown) hours a day and (units (unknown) date) participation of unknown) father in care and office visits (unknown) (no (unknown) (unknown) household members: (units (unknown) date) spouse, family unknown) ([id number] and his 3 children (moving out (unknown) (no (unknown) (unknown) housing: house (units (unknown) date) unknown) (unknown) (no (unknown) (unknown) is still having (units (unknown) date) occasional unknown) headaches. Good movement. No leakage of fluid (unknown) (no (unknown) (unknown) kag (units (unkno wn) date) unknown) (unknown) (no (unknown) (unknown) levothyroxine 125 (units (unknown) date) mcg tablet 125 mcg unknown) PO DAILY #30 tabs 08/25/22 [Rx Confirmed (unknown) (no (unknown) (unknown) lives (units (unkno wn) date) independently: Yes unknown) (unknown) (no (unknown) (unknown) magnesium 200 mg (units (unknown) date) tablet 200 mg PO unknown) DAILY 05/03/22 [History Confirmed 09/13/22] (unknown) (no (unknown) (unknown) marital status: (units (unknown) date) unknown) (unknown) (no (unknown) (unknown) may occur. (units (unk nown) date) Occasional unknown) wrong-word or 'sound-alike' substitutions may have (unknown) (no (unknown) (unknown) medication. No (units (unknown) date) vaginal bleeding. unknown) On ultrasound: Intrauterine gestational sac (unknown) (no (unknown) (unknown) migraines and (units ( unknown) date) these are getting unknown) a little better. She is using the prescribed (unknown) (no (unknown) (unknown) months other Iyla (units (unknown) date) unknown) (unknown) (no (unknown) (unknown) number of (units (unkn own) date) children: 3 unknown) (unknown) (no (unknown) (unknown) occasional 1 (units (u nknown) date) Percocet to treat unknown) these. Plan: 20 week ultrasound ordered. Alpha (unknown) (no (unknown) (unknown) occupational (units (u nknown) date) status: unemployed unknown) and previously employed (unknown) (no (unknown) (unknown) occurred due to (units (unknown) date) the inherent unknown) limitations of voice recognition software. Please (unknown) (no (unknown) (unknown) ondansetron 4 mg (units (unknown) date) disintegrating unknown) tablet 4 mg PO Q6H PRN nausea and vomiting #20 (unknown) (no (unknown) (unknown) or vaginal (units (unk nown) date) bleeding. On unknown) ultrasound: Breech presentation. AGA 29 weeks 2 days. (unknown) (no (unknown) (unknown) oxycodone 5 mg (units (unknown) date) tablet 5 mg PO Q6H unknown) PRN pain #10 tabs 09/09/22 [Rx Confirmed (unknown) (no (unknown) (unknown) pets and animals: (units (unknown) date) Yes (horses) unknown) (unknown) (no (unknown) (unknown) polyhydramnios (units (unknown) date) unknown) (unknown) (no (unknown) (unknown) precautions, (units (u nknown) date) Listeriosis unknown) prevention and Rubella Immunization (unknown) (no (unknown) (unknown) prenat.vits,alexey,m (units (unknown) date) fy-[id number]-hpynf 1 unknown) tab PO DAILY 04/22/22 [History Confirmed (unknown) (no (unknown) (unknown) read the note (units ( unknown) date) carefully and unknown) recognize, using context, where these substitutions (unknown) (no (unknown) (unknown) really like to (units (unknown) date) meet w/ [facility] unknown) prior to delivery and would like Rx for hospital (unknown) (no (unknown) (unknown) reports good (units (u nknown) date) movement and unknown) denies VB, LOF, contractions and cramping. She (unknown) (no (unknown) (unknown) seatbelt use: (units ( unknown) date) always unknown) (unknown) (no (unknown) (unknown) second hand (units (un known) date) exposure: No unknown) (unknown) (no (unknown) (unknown) severe (units (unkno wn) date) polyhydramnios; unknown) laryngomalacia (unknown) (no (unknown) (unknown) software. (units (unkn own) date) Although every unknown) effort is made to edit content, fountain brush assembler errors (unknown) (no (unknown) (unknown) soon)) and (units (unk nown) date) children unknown) (unknown) (no (unknown) (unknown) special [place]land (units ( unknown) date) needs: No unknown) (unknown) (no (unknown) (unknown) substance use (units (u nknown) date) type: marijuana unknown) (in the past, not recently and not while ) (unknown) (no (unknown) (unknown) tabs 05/17/22 [Rx (units (unknown) date) Confirmed unknown) 09/13/22] (unknown) (no (unknown) (unknown) term [place] (units ( unknown) date) [place] unknown) (unknown) (no (unknown) (unknown) volume. The heart (units (unknown) date) and outflow tracts unknown) could not be visualized. Follow-up in 3 (unknown) (no (unknown) (unknown) water heater temp (units (unknown) date) set < 120 deg: Yes unknown) (unknown) (no (unknown) (unknown) week but they are (units (unknown) date) not lasting unknown) multiple days and not as intense. She is using an (unknown) (no (unknown) (unknown) weeks with repeat (units (unknown) date) ultrasound to unknown) check fluid. Warning signs reviewed. (unknown) (no (unknown) (unknown) weight gain, Fish (units (unknown) date) and mercury unknown) intake, Caffeine use, Exercise and activity, (unknown) (no (unknown) (unknown) well-balanced (units ( unknown) date) diet: daily or unknown) most days (unknown) (no (unknown) (unknown) with 11 weeks 3 (units (unknown) date) days. Left ovary unknown) is normal. Plan: Cell free DNA ordered. (unknown) (no (unknown) (unknown) with a fetus with (units (unknown) date) a crown-rump unknown) length measuring 4.63 cm. This is consistent (unknown) (no (unknown) (unknown) work/environmenta (units (unknown) date) l/hazards, Sexual unknown) activity, X-ray exposure, Medication use, (unknown) (no (unknown) (unknown) working smoke (units ( unknown) date) detector in home: unknown) Yes Result panel 155 (unknown) (no (unknown) (unknown) (no value) (units (unk nown) date) unknown) (unknown) (no (unknown) (unknown) > 09/13/22 1202 (units (unknown) date) unknown) (unknown) (no (unknown) (unknown) 'syndrome';) (units (u nknown) date) unknown) (unknown) (no (unknown) (unknown) (+11 lb) 112/62 N (units (unknown) date) unknown) (unknown) (no (unknown) (unknown) (+13 lb) 118/68 N (units (unknown) date) unknown) (unknown) (no (unknown) (unknown) (+21 lb 7 oz) (units ( unknown) date) 98/68 N unknown) (unknown) (no (unknown) (unknown) (+27 lb) 110/70 (units (unknown) date) unknown) (unknown) (no (unknown) (unknown) (+6 lb) 108/68 N (units (unknown) date) unknown) (unknown) (no (unknown) (unknown) (1) 28 weeks (units (u nknown) date) gestation of unknown) : (unknown) (no (unknown) (unknown) ADDENDUM (units (u nknown) date) unknown) (unknown) (no (unknown) (unknown) Genetic (units (unkn own) date) Screening/Teratolo unknown) gy Counseling - Includes patient, baby's father, or (unknown) (no (unknown) (unknown) -?-?-?-?-?-?-?-?- (units (unknown) date) ?-?-?-? unknown) (unknown) (no (unknown) (unknown) 0.5 mL 0RF NS Z23 (units (unknown) date) - Encounter for unknown) immunization (unknown) (no (unknown) (unknown) 0.5 mL IM Right (units (unknown) date) Deltoid [id number] unknown) 11/04/24 [id number] SANOFI-PASTEUR (unknown) (no (unknown) (unknown) 03/07/14 41 17 7 (units (unknown) date) lb 1 oz Female unknown) live - full t (unknown) (no (unknown) (unknown) 02/19/21 39 7 lb (units (unknown) date) 12 oz Female live unknown) - full term (unknown) (no (unknown) (unknown) 05/13/22 (units (unkno wn) date) unknown) (unknown) (no (unknown) (unknown) 06/09/22 (units (unkno wn) date) unknown) (unknown) (no (unknown) (unknown) 06/16/15 38 7 lb (units (unknown) date) 13 oz Male unknown) live - full (unknown) (no (unknown) (unknown) 07/12/22 (units (unkno wn) date) unknown) (unknown) (no (unknown) (unknown) 08:10 (units (unkno wn) date) unknown) (unknown) (no (unknown) (unknown) 08/15/22 (units (unkno wn) date) unknown) (unknown) (no (unknown) (unknown) 09/13/22 0838 (units ( unknown) date) unknown) (unknown) (no (unknown) (unknown) 09/13/22 1202 (units ( unknown) date) unknown) (unknown) (no (unknown) (unknown) 09/13/22 Single (units (unknown) date) Vaccine 06/25/21 unknown) (unknown) (no (unknown) (unknown) 09/13/22 (units (unkno wn) date) unknown) (unknown) (no (unknown) (unknown) 09/13/22] (units (unkn own) date) unknown) (unknown) (no (unknown) (unknown) 10/18/21 8 (units (unk nown) date) spontaneous unknown) (unknown) (no (unknown) (unknown) 11w 2d 261 lb (units ( unknown) date) unknown) (unknown) (no (unknown) (unknown) 11w3d 4 wks (units (un known) date) unknown) (unknown) (no (unknown) (unknown) 15w 1d 266 lb (units ( unknown) date) unknown) (unknown) (no (unknown) (unknown) 19w 6d 268 lb (units ( unknown) date) unknown) (unknown) (no (unknown) (unknown) 2 lb 15 oz. (units (un known) date) 55%ile. Placenta unknown) grade 0 and anterior. Normal amniotic fluid (unknown) (no (unknown) (unknown) 24w 5d 276 lb 7 (units (unknown) date) oz unknown) (unknown) (no (unknown) (unknown) 28w 6d 282 lb (units ( unknown) date) unknown) (unknown) (no (unknown) (unknown) 3 wks (units (unkno wn) date) unknown) (unknown) (no (unknown) (unknown) 5 wks (units (unkno wn) date) unknown) (unknown) (no (unknown) (unknown) ADHD (units (unkno wn) date) unknown) (unknown) (no (unknown) (unknown) Abnormal lab (units (u nknown) date) values 1st unknown) trimester: discussed (unknown) (no (unknown) (unknown) Adacel(Tdap (units (un known) date) Adolesn/Adult)(PF) unknown) (diph,pertuss(acel ),tet vac(PF)) 0.5 mL IM ONCE (unknown) (no (unknown) (unknown) Adacel(Tdap (units (un known) date) Adolesn/Adult)(PF) unknown) (unknown) (no (unknown) (unknown) Add'l Plan (units (unk nown) date) Details unknown) (unknown) (no (unknown) (unknown) Addendum (units (unkno wn) date) Documented By: unknown) Gi Culp (unknown) (no (unknown) (unknown) Addendum Signed (units (unknown) date) By: unknown) <Electronically signed by Gi Culp (unknown) (no (unknown) (unknown) Additional (units (unk nown) date) Details:: 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 (unknown) (no (unknown) (unknown) Additional Social (units (unknown) date) History unknown) (unknown) (no (unknown) (unknown) Administered by: (units (unknown) date) Gi Culp MA unknown) on 09/13/22 12:01 (unknown) (no (unknown) (unknown) Age/Sex: 32 / F (units (unknown) date) Date of Service: unknown) (unknown) (no (unknown) (unknown) Alcoholism (units (unk nown) date) unknown) (unknown) (no (unknown) (unknown) Allergies (units (unkn own) date) unknown) (unknown) (no (unknown) (unknown) [place] (units ( unknown) date) [id number] unknown) (unknown) (no (unknown) (unknown) Anaphylaxis (units (un known) date) unknown) (unknown) (no (unknown) (unknown) Anesthesia (units (unk nown) date) unknown) (unknown) (no (unknown) (unknown) Aneuploidy (units (unk nown) date) Screening Offered: unknown) Accepted (Would like CFDNA if qualified) (unknown) (no (unknown) (unknown) Anticipated (units (un known) date) course of unknown) care: discussed (unknown) (no (unknown) (unknown) Assessment and (units (unknown) date) Plan unknown) (unknown) (no (unknown) (unknown) Attending Dr: (units ( unknown) date) Josefina Baumann unknown) (unknown) (no (unknown) (unknown) BMI 48.4 (units (unkno wn) date) unknown) (unknown) (no (unknown) (unknown) BP 110/70 (units (unkn own) date) unknown) (unknown) (no (unknown) (unknown) [place] 2 months (units (unknown) date) post-dates unknown) induction (unknown) (no (unknown) (unknown) (units (unkno wn) date) Plan/Preferences unknown) (unknown) (no (unknown) (unknown) Planning (units (unknown) date) unknown) (unknown) (no (unknown) (unknown) Blood Pressure (units (unknown) date) Location Lt unknown) brachial (unknown) (no (unknown) (unknown) Blood (units (unkno wn) date) transfusions?: yes unknown) (Never had but would accept ) (unknown) (no (unknown) (unknown) Breastfeed Preg (units (unknown) date) Comp Name unknown) (unknown) (no (unknown) (unknown) 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) unknown) (unknown) (no (unknown) (unknown) Children's (units (unk nown) date) unknown) (unknown) (no (unknown) (unknown) Current Estimate (units (unknown) date) 11/30/22 LMP unknown) (Certain) 28w 6d (unknown) (no (unknown) (unknown) Current (units (unknown) date) History unknown) (unknown) (no (unknown) (unknown) DNA (units (unkno wn) date) unknown) (unknown) (no (unknown) (unknown) : 1990 (units (unknown) date) Acct:[id number] unknown) (unknown) (no (unknown) (unknown) Date of positive (units (unknown) date) home unknown) test: 03/25/22 (unknown) (no (unknown) (unknown) Date (units (unkno wn) date) unknown) (unknown) (no (unknown) (unknown) Daughter Juvenile (units (unknown) date) arthritis unknown) (unknown) (no (unknown) (unknown) Del. Date (units (unkn own) date) GA/Weeks Labor unknown) Lgth Wt Sex Route Outcome Anesthesia Place (unknown) (no (unknown) (unknown) Delivery Date: (units (unknown) date) 02/19/21 Last unknown) Updated by: Susi Petersen RN (unknown) (no (unknown) (unknown) Delivery Date: (units (unknown) date) 06/16/15 Last unknown) Updated by: Susi Petersen RN (unknown) (no (unknown) (unknown) Delv (units (unkno wn) date) unknown) (unknown) (no (unknown) (unknown) Denies other (units (u nknown) date) unknown) (unknown) (no (unknown) (unknown) Denies over the (units (unknown) date) counter unknown) medications, Denies alcohol, Denies illicit drugs and (unknown) (no (unknown) (unknown) Depression (units (unk nown) date) (-1999) unknown) (unknown) (no (unknown) (unknown) Depression: (units (un known) date) discussed unknown) (unknown) (no (unknown) (unknown) Dept at (units (unkno wn) date) . unknown) (unknown) (no (unknown) (unknown) Diet and Exercise (units (unknown) date) unknown) (unknown) (no (unknown) (unknown) Discussed (units (unkno wn) date) anesthesia, but unknown) encouraged Brittany to discuss this more in depth with (unknown) (no (unknown) (unknown) Documented By: (units (unknown) date) Josefina Baumann unknownRichard FINE 09/13/22 0804 (unknown) (no (unknown) (unknown) Dose Route Admin (units (unknown) date) Location Lot unknown) Number Expiration Date NDC (unknown) (no (unknown) (unknown) ECTOR Calculator (units (unknown) date) unknown) (unknown) (no (unknown) (unknown) EGA Weight BP (units ( unknown) date) UGlucose unknown) (unknown) (no (unknown) (unknown) Eligibility (units (un known) date) Eligibility Date unknown) Funding Source (unknown) (no (unknown) (unknown) Estimated (units (unkn own) date) Delivery Date unknown) Method Current (unknown) (no (unknown) (unknown) Family History (units (unknown) date) (Updated 06/08/22 unknown) @ 21:23 by Aurora Arevalo) (unknown) (no (unknown) (unknown) Father Diabetes (units (unknown) date) mellitus unknown) (unknown) (no (unknown) (unknown) Father of Baby: (units (unknown) date) same unknown) (unknown) (no (unknown) (unknown) [facility] ([facility] unknown) (unknown) (no (unknown) (unknown) First Trimester (units (unknown) date) Education unknown) Checklist (unknown) (no (unknown) (unknown) Follow-up in 4 (units (unknown) date) weeks. Warning unknown) signs reviewed. kag (unknown) (no (unknown) (unknown) Follow-up in 4 (units (unknown) date) weeks. We will unknown) call with anatomic survey results. (unknown) (no (unknown) (unknown) Foot pain (-2020) (units (unknown) date) unknown) (unknown) (no (unknown) (unknown) (units (unkno wn) date) unknown) (unknown) (no (unknown) (unknown) [place] at her next (units (unknown) date) visit. f/u in 4 unknown) weeks. (unknown) (no (unknown) (unknown) Genetic Screening (units (unknown) date) + Counseling unknown) (unknown) (no (unknown) (unknown) Genetic Screening (units (unknown) date) unknown) (unknown) (no (unknown) (unknown) 5 (units (unkn own) date) Multiple births unknown) (unknown) (no (unknown) (unknown) HIV risk (units (unkno wn) date) evaluation: low unknown) risk (unknown) (no (unknown) (unknown) Health Center (units ( unknown) date) Education unknown) (unknown) (no (unknown) (unknown) Health center (units ( unknown) date) information: unknown) nature of practice discussed, personnel (unknown) (no (unknown) (unknown) Heavy menstrual (units (unknown) date) period (-2020) unknown) (unknown) (no (unknown) (unknown) Height 5 ft 4 in (units (unknown) date) unknown) (unknown) (no (unknown) (unknown) Hepatitis C risk (units (unknown) date) evaluation: low unknown) risk (unknown) (no (unknown) (unknown) History of (units (unk nown) date) Hepatitis B: No unknown) (unknown) (no (unknown) (unknown) History of (units (unk nown) date) Hepatitis C: No unknown) (unknown) (no (unknown) (unknown) History of (units (unk nown) date) surgery unknown) (unknown) (no (unknown) (unknown) Hospital: (units (u nknown) date) unknown) (unknown) (no (unknown) (unknown) [facility]. (units (unknown) date) unknown) (unknown) (no (unknown) (unknown) Hx # (units (u nknown) date) Pregnancies unknown) Elective abortions (unknown) (no (unknown) (unknown) Hx # Term (units (unkn own) date) Pregnancies 3 unknown) Ectopic pregnancies (unknown) (no (unknown) (unknown) Hx severe (units (unkn own) date) polyhydramnios unknown) (unknown) (no (unknown) (unknown) Hypothyroid (units (un known) date) unknown) (unknown) (no (unknown) (unknown) Immunizations (units ( unknown) date) unknown) (unknown) (no (unknown) (unknown) will be (units (unknown) date) adopted?: no unknown) (unknown) (no (unknown) (unknown) Infection History (units (unknown) date) unknown) (unknown) (no (unknown) (unknown) Infectious (units (unk nown) date) Disease Education unknown) (unknown) (no (unknown) (unknown) Infectious (units (unk nown) date) disease exposure: unknown) chicken pox immunity discussed, hepatitis risk (unknown) (no (unknown) (unknown) Initial Weight: (units (unknown) date) 255 lb unknown) (unknown) (no (unknown) (unknown) Initials (units (unkno wn) date) unknown) (unknown) (no (unknown) (unknown) Intake Clinical (units (unknown) date) Staff unknown) (unknown) (no (unknown) (unknown) Intake Note: (units (u nknown) date) unknown) (unknown) (no (unknown) (unknown) Intake performed (units (unknown) date) by: Libby Saravia unknown) (unknown) (no (unknown) (unknown) Intake (units (unkno wn) date) unknown) (unknown) (no (unknown) (unknown) LM (units (unkno wn) date) unknown) (unknown) (no (unknown) (unknown) Brittany presents (units ( unknown) date) today with her 3 unknown) kids for a routine OB visit at 24w5d. She (unknown) (no (unknown) (unknown) Live with someone (units (unknown) date) with TB or exposed unknown) to TB: No (unknown) (no (unknown) (unknown) Loc: [facility] (units (unkno wn) date) unknown) (unknown) (no (unknown) (unknown) [id number] (units (unk nown) date) unknown) (unknown) (no (unknown) (unknown) [place] [employer] (units (u nknown) date) unknown) (unknown) (no (unknown) (unknown) Marital status: (units (unknown) date) unknown) (unknown) (no (unknown) (unknown) Medical History (units (unknown) date) (Updated 07/12/22 unknown) @ 15:10 by Josefina Baumann MD) (unknown) (no (unknown) (unknown) Medications (units (un known) date) unknown) (unknown) (no (unknown) (unknown) Medications: (units (u nknown) date) unknown) (unknown) (no (unknown) (unknown) Mental health (units ( unknown) date) problem unknown) (unknown) (no (unknown) (unknown) Migraine (units (unkno wn) date) headaches unknown) (unknown) (no (unknown) (unknown) Mother Depression (units (unknown) date) unknown) (unknown) (no (unknown) (unknown) N No no 146 15 (units (unknown) date) N/A absent 4 wks unknown) (unknown) (no (unknown) (unknown) N No no 168 11 (units (unknown) date) N/A absent unknown) long/closed AGA (unknown) (no (unknown) (unknown) Nearsightedness (units (unknown) date) unknown) (unknown) (no (unknown) (unknown) New (units (unkno wn) date) unknown) (unknown) (no (unknown) (unknown) Not VFC Eligible (units (unknown) date) 09/13/22 Private unknown) Funds (unknown) (no (unknown) (unknown) Notes (units (unkno wn) date) unknown) (unknown) (no (unknown) (unknown) Number of Living (units (unknown) date) Children 3 unknown) (unknown) (no (unknown) (unknown) Number of (units (unkn own) date) fetuses:: Single unknown) (unknown) (no (unknown) (unknown) Nutrition and (units ( unknown) date) weight gain unknown) counseling: special diet: discussed (unknown) (no (unknown) (unknown) OB Office Visit (units (unknown) date) unknown) (unknown) (no (unknown) (unknown) OB Visit Log (units (u nknown) date) unknown) (unknown) (no (unknown) (unknown) Obesity (units (unkno wn) date) unknown) (unknown) (no (unknown) (unknown) Office Procedure (units (unknown) date) Documentation unknown) entered by Gi Culp MA 09/13/22 12:02: (unknown) (no (unknown) (unknown) On control (units (unknown) date) at conception?: No unknown) (unknown) (no (unknown) (unknown) Orders (units (unkno wn) date) unknown) (unknown) (no (unknown) (unknown) Orders: (units (unkno wn) date) unknown) (unknown) (no (unknown) (unknown) PFSH (units (unkno wn) date) unknown) (unknown) (no (unknown) (unknown) PTSD (units (unkno wn) date) (post-traumatic unknown) stress disorder) (-1999) (unknown) (no (unknown) (unknown) Painful menstrual (units (unknown) date) periods () unknown) (unknown) (no (unknown) (unknown) Pap performed?: (units (unknown) date) No unknown) (unknown) (no (unknown) (unknown) Para 3 (units (unkno wn) date) Spontaneous unknown) abortions 1 (unknown) (no (unknown) (unknown) Partner history (units (unknown) date) of STD: denies hx unknown) (unknown) (no (unknown) (unknown) Partner history (units (unknown) date) of genital herpes: unknown) No (unknown) (no (unknown) (unknown) Partner: [facility] (units (unknown) date) [place] unknown) (unknown) (no (unknown) (unknown) Past Pregnancies (units (unknown) date) unknown) (unknown) (no (unknown) (unknown) Patient presents (units (unknown) date) for a new OB visit unknown) at 11 weeks gestation. She has had (unknown) (no (unknown) (unknown) Patient presents (units (unknown) date) for a routine unknown) visit at 15 weeks gestation. Cell (unknown) (no (unknown) (unknown) Patient presents (units (unknown) date) for a routine unknown) visit at 19 weeks gestation. She (unknown) (no (unknown) (unknown) Patient presents (units (unknown) date) for a routine unknown) visit at 28 weeks gestation. 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: (units ( unknown) date) Pediatric unknown) [facility] (unknown) (no (unknown) (unknown) Performing (units (unk nown) date) Provider: Josefina unknown) Angella Baumann MD (unknown) (no (unknown) (unknown) Personal history (units (unknown) date) of STD: denies hx unknown) (unknown) (no (unknown) (unknown) Personal history (units (unknown) date) of genital herpes: unknown) No (unknown) (no (unknown) (unknown) Planned repeat (units (unknown) date) C/S, 11/24/22 unknown) (unknown) (no (unknown) (unknown) Polyhydramnios (units (unknown) date) unknown) (unknown) (no (unknown) (unknown) Position Sitting (units (unknown) date) unknown) (unknown) (no (unknown) (unknown) Postive screening (units (unknown) date) CF (In scans) unknown) (unknown) (no (unknown) (unknown) (units (unk nown) date) depression unknown) (unknown) (no (unknown) (unknown) History (units (unknown) date) unknown) (unknown) (no (unknown) (unknown) type:: (units (unknown) date) Other Normal unknown) (unknown) (no (unknown) (unknown) (units (unkno wn) date) Education unknown) (unknown) (no (unknown) (unknown) Initial (units (unknown) date) Assessment unknown) (unknown) (no (unknown) (unknown) Specific (units (unknown) date) Issues/Plans unknown) (unknown) (no (unknown) (unknown) Testing: (units (unknown) date) discussed unknown) (unknown) (no (unknown) (unknown) Visit (units (unknown) date) unknown) (unknown) (no (unknown) (unknown) (units (unkno wn) date) education packet: unknown) symptoms, Vitamins and iron, Diet and (unknown) (no (unknown) (unknown) Previous (units (unknown) date) section unknown) (unknown) (no (unknown) (unknown) Primary Care (units (u nknown) date) Provider: [facility] unknown) [facility] (unknown) (no (unknown) (unknown) Primary Ob (units (unk nown) date) Provider: unknown) Josefina Baumann (unknown) (no (unknown) (unknown) Prior (units (unkno wn) date) GBS-Infected unknown) child: No (unknown) (no (unknown) (unknown) [place] (units (unk nown) date) [place] 4 unknown) (unknown) (no (unknown) (unknown) Providers (units (unkn own) date) unknown) (unknown) (no (unknown) (unknown) Pt here for OB (units (unknown) date) Check w/3D US + unknown) f/u anatomy scan (unknown) (no (unknown) (unknown) RPR pos, TPA (units (u nknown) date) negative unknown) (unknown) (no (unknown) (unknown) Rash or viral (units ( unknown) date) illness since last unknown) menstrual period: Yes (minor head cold) (unknown) (no (unknown) (unknown) Reason For Visit (units (unknown) date) unknown) (unknown) (no (unknown) (unknown) Recent travel (units ( unknown) date) outside of unknown) country?: No (unknown) (no (unknown) (unknown) Recurrent (units (unkn own) date) loss or unknown) a stillbirth: No (unknown) (no (unknown) (unknown) Reports Other (units ( unknown) date) (Older son unknown) undergoing genetic workup for currently unidentified (unknown) (no (unknown) (unknown) 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 unknown) (unknown) (no (unknown) (unknown) Safety (units (unkno wn) date) unknown) (unknown) (no (unknown) (unknown) Sauna/hot tub (units ( unknown) date) use, Dental care, unknown) Marijuana use, Travel and Influenza vaccine (no (unknown) (no (unknown) (unknown) Signed By: (units (unk nown) date) <Electronically unknown) signed by Josefina Baumann MD> (unknown) (no (unknown) (unknown) Signed with (units (un known) date) Addenda unknown) (unknown) (no (unknown) (unknown) Smoking Status: (units (unknown) date) Former smoker unknown) (Quit-2020) (unknown) (no (unknown) (unknown) Social History (units (unknown) date) unknown) (unknown) (no (unknown) (unknown) Son Hearing loss (units (unknown) date) unknown) (unknown) (no (unknown) (unknown) Son undergoing (units (unknown) date) workup at unknown[facility] (unknown) (no (unknown) (unknown) Support (units (unkno wn) date) Person(s):: [facility] unknown) (unknown) (no (unknown) (unknown) Surgical History (units (unknown) date) (Updated 07/12/22 unknown) @ 15:10 by Josefina Baumann MD) (unknown) (no (unknown) (unknown) Surrogate (units (unkn own) date) ?: no unknown) (unknown) (no (unknown) (unknown) Symptoms since (units (unknown) date) LMP: Reports unknown) amenorrhea, nausea, fatigue, urinary frequency, (unknown) (no (unknown) (unknown) TR Yes no 143 26 (units (unknown) date) N/A absent 4 wks unknown) (unknown) (no (unknown) (unknown) TR Yes no 144 21 (units (unknown) date) N/A absent 4 wks unknown) (unknown) (no (unknown) (unknown) TSH. Discussed (units (unknown) date) TDAP vaccination unknown) nv. She had questions regarding anesthesia (unknown) (no (unknown) (unknown) Tdap Adult (units (unk nown) date) (Adacel) Today Z23 unknown) - Encounter for immunization (unknown) (no (unknown) (unknown) Teratogen (units (unkn own) date) Exposures since unknown) LMP/Conception: Denies prescription medications, (unknown) (no (unknown) (unknown) Testing Education (units (unknown) date) unknown) (unknown) (no (unknown) (unknown) Testing education (units (unknown) date) completed: group B unknown) strep, Spina bifida testing and Cell Free (unknown) (no (unknown) (unknown) This note may (units ( unknown) date) have been all or unknown) partially generated using voice recognition (unknown) (no (unknown) (unknown) 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 [place] (unknown) (no (unknown) (unknown) Tobacco + (units (unkn own) date) Substance Use unknown) (unknown) (no (unknown) (unknown) Tobacco Status (units (unknown) date) unknown) (unknown) (no (unknown) (unknown) Trimester:: 3rd (units (unknown) date) Trimester unknown) (28wks-Del) (unknown) (no (unknown) (unknown) Type(s) of (units (unk nown) date) exercise: walking unknown) (unknown) (no (unknown) (unknown) UProtein Movement (units (unknown) date) PreLabor FHR Fndl unknown) Ht Pres Edema Cerv Exam US/Comment Next Appt (unknown) (no (unknown) (unknown) Ultrasound (units (unk nown) date) performed?: Yes unknown) (unknown) (no (unknown) (unknown) VIS Given Date (units (unknown) date) VIS Provided VIS unknown) Publication Date (unknown) (no (unknown) (unknown) Varicella/chicken (units (unknown) date) pox status: unknown) immunized (unknown) (no (unknown) (unknown) Visit Date: (units (un known) date) 05/13/22 Last unknown) Updated by: Josefina Baumann MD (unknown) (no (unknown) (unknown) Visit Date: (units (un known) date) 06/09/22 Last unknown) Updated by: Josefina Baumann MD (unknown) (no (unknown) (unknown) Visit Date: (units (un known) date) 07/12/22 Last unknown) Updated by: Josefina Baumann MD (unknown) (no (unknown) (unknown) Visit Date: (units (un known) date) 08/15/22 Last unknown) Updated by: Anita Perez P.A-C (unknown) (no (unknown) (unknown) Visit Date: (units (un known) date) 09/13/22 Last unknown) Updated by: Josefina Baumann MD (unknown) (no (unknown) (unknown) Visit Reasons: OB (units (unknown) date) CHECK w/3D US + unknown) f/u anatomy (unknown) (no (unknown) (unknown) Vitals (units (unkno wn) date) unknown) (unknown) (no (unknown) (unknown) WG (units (unkno wn) date) unknown) (unknown) (no (unknown) (unknown) Weeks gestation:: (units (unknown) date) 28 unknown) (unknown) (no (unknown) (unknown) Weight 282 lb (units ( unknown) date) unknown) (unknown) (no (unknown) (unknown) [place] teeth (units (u nknown) date) extracted unknown) (unknown) (no (unknown) (unknown) Would like (units (unk nown) date) referral unknown) to [facility] grade breast pump at (unknown) (no (unknown) (unknown) Yes no 138 30 (units ( unknown) date) Breech absent AGA unknown) 29w2d (unknown) (no (unknown) (unknown) Zika virus (units (unk nown) date) exposure: No unknown) (unknown) (no (unknown) (unknown) additional social (units (unknown) date) history: unknown) Difficulty other children. Would (unknown) (no (unknown) (unknown) alcohol intake: (units (unknown) date) former unknown) (unknown) (no (unknown) (unknown) anyone in either (units (unknown) date) family with: unknown) (unknown) (no (unknown) (unknown) attempted, unable (units (unknown) date) other Lavelle unknown) (unknown) (no (unknown) (unknown) because she has (units (unknown) date) had difficult unknown) spinals with all 3 of her deliveries. 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 (units (unkn own) date) unknown) (unknown) (no (unknown) (unknown) described, visit (units (unknown) date) schedule reviewed, unknown) ultrasounds policy reviewed, coverage 24 (unknown) (no (unknown) (unknown) discussed, (units (unk nown) date) tuberculosis unknown) exposure discussed, CMV discussed, Toxoplasmosis (unknown) (no (unknown) (unknown) do you feel safe (units (unknown) date) at home: Yes unknown) (unknown) (no (unknown) (unknown) during the past (units (unknown) date) year weight has: unknown) other (wide fluctuations since last ) (unknown) (no (unknown) (unknown) education level: (units (unknown) date) vocational (some unknown) college, certificate programs) (unknown) (no (unknown) (unknown) erm [place] (units (u nknown) date) unknown) (unknown) (no (unknown) (unknown) f/u limited (units (un known) date) anatomy views at unknown) 28wk visit with Dr. Baumann. Ordered OGTT, CBC and (unknown) (no (unknown) (unknown) failure to (units (unk nown) date) progress Rosey unknown) (unknown) (no (unknown) (unknown) felt rare (units (unknown) date) movement. No unknown) leakage of fluid or vaginal bleeding. Plan: (unknown) (no (unknown) (unknown) fetoprotein (units (un known) date) ordered. Warning unknown) signs reviewed. Follow-up in 5 weeks. kag (unknown) (no (unknown) (unknown) fire extinguisher (units (unknown) date) in home: Yes unknown) (unknown) (no (unknown) (unknown) firearms in home: (units (unknown) date) Yes firearms unknown) unloaded and locked: Yes (unknown) (no (unknown) (unknown) flaxseed Allergy (units (unknown) date) (Severe, Verified unknown) 09/13/22 08:05) (unknown) (no (unknown) (unknown) flu or covid (units (u nknown) date) vaccines received) unknown) (unknown) (no (unknown) (unknown) free DNA showed (units (unknown) date) normal female. She unknown) continues to have migraines several days a (unknown) (no (unknown) (unknown) grade breast pump (units (unknown) date) that she can have unknown) when she goes home from hospital after (unknown) (no (unknown) (unknown) had her 20 week (units (unknown) date) ultrasound today. unknown) Those results are not available. She has (unknown) (no (unknown) (unknown) had limited heart (units (unknown) date) and outflow tract unknown) views from her anatomy US. Plan 3D US and (unknown) (no (unknown) (unknown) have occurred. If (units (unknown) date) there are any unknown) questions, please contact the Medical Records (unknown) (no (unknown) (unknown) hours a day and (units (unknown) date) participation of unknown) father in care and office visits (unknown) (no (unknown) (unknown) household members: (units (unknown) date) spouse, family unknown) ([id number] and his 3 children (moving out (unknown) (no (unknown) (unknown) housing: house (units (unknown) date) unknown) (unknown) (no (unknown) (unknown) is still having (units (unknown) date) occasional unknown) headaches. Good movement. No leakage of fluid (unknown) (no (unknown) (unknown) kag (units (unkno wn) date) unknown) (unknown) (no (unknown) (unknown) levothyroxine 125 (units (unknown) date) mcg tablet 125 mcg unknown) PO DAILY #30 tabs 08/25/22 [Rx Confirmed (unknown) (no (unknown) (unknown) lives (units (unkno wn) date) independently: Yes unknown) (unknown) (no (unknown) (unknown) magnesium 200 mg (units (unknown) date) tablet 200 mg PO unknown) DAILY 05/03/22 [History Confirmed 09/13/22] (unknown) (no (unknown) (unknown) marital status: (units (unknown) date) unknown) (unknown) (no (unknown) (unknown) may occur. (units (unk nown) date) Occasional unknown) wrong-word or 'sound-alike' substitutions may have (unknown) (no (unknown) (unknown) medication. No (units (unknown) date) vaginal bleeding. unknown) On ultrasound: Intrauterine gestational sac (unknown) (no (unknown) (unknown) migraines and (units ( unknown) date) these are getting unknown) a little better. She is using the prescribed (unknown) (no (unknown) (unknown) months other Iyla (units (unknown) date) unknown) (unknown) (no (unknown) (unknown) number of (units (unkn own) date) children: 3 unknown) (unknown) (no (unknown) (unknown) occasional 1 (units (u nknown) date) Percocet to treat unknown) these. Plan: 20 week ultrasound ordered. Alpha (unknown) (no (unknown) (unknown) occupational (units (u nknown) date) status: unemployed unknown) and previously employed (unknown) (no (unknown) (unknown) occurred due to (units (unknown) date) the inherent unknown) limitations of voice recognition software. Please (unknown) (no (unknown) (unknown) ondansetron 4 mg (units (unknown) date) disintegrating unknown) tablet 4 mg PO Q6H PRN nausea and vomiting #20 (unknown) (no (unknown) (unknown) or vaginal (units (unk nown) date) bleeding. On unknown) ultrasound: Breech presentation. AGA 29 weeks 2 days. (unknown) (no (unknown) (unknown) oxycodone 5 mg (units (unknown) date) tablet 5 mg PO Q6H unknown) PRN pain #10 tabs 09/09/22 [Rx Confirmed (unknown) (no (unknown) (unknown) pets and animals: (units (unknown) date) Yes (horses) unknown) (unknown) (no (unknown) (unknown) polyhydramnios (units (unknown) date) unknown) (unknown) (no (unknown) (unknown) precautions, (units (u nknown) date) Listeriosis unknown) prevention and Rubella Immunization (unknown) (no (unknown) (unknown) prenat.vits,alexey,m (units (unknown) date) uk-cxfi-eblos 1 unknown) tab PO DAILY 04/22/22 [History Confirmed (unknown) (no (unknown) (unknown) read the note (units ( unknown) date) carefully and unknown) recognize, using context, where these substitutions (unknown) (no (unknown) (unknown) really like to (units (unknown) date) meet w/ IBCLC unknown) prior to delivery and would like Rx for hospital (unknown) (no (unknown) (unknown) reports good (units (u nknown) date) movement and unknown) denies VB, LOF, contractions and cramping. She (unknown) (no (unknown) (unknown) seatbelt use: (units ( unknown) date) always unknown) (unknown) (no (unknown) (unknown) second hand (units (un known) date) exposure: No unknown) (unknown) (no (unknown) (unknown) severe (units (unkno wn) date) polyhydramnios; unknown) laryngomalacia (unknown) (no (unknown) (unknown) software. (units (unkn own) date) Although every unknown) effort is made to edit content, fountain brush assembler errors (unknown) (no (unknown) (unknown) soon)) and (units (unk nown) date) children unknown) (unknown) (no (unknown) (unknown) special [place] (units ( unknown) date) needs: No unknown) (unknown) (no (unknown) (unknown) substance use (units (u nknown) date) type: marijuana unknown) (in the past, not recently and not while ) (unknown) (no (unknown) (unknown) tabs 05/17/22 [Rx (units (unknown) date) Confirmed unknown) 09/13/22] (unknown) (no (unknown) (unknown) term [place] (units ( unknown) date) Yonis unknown) (unknown) (no (unknown) (unknown) volume. The heart (units (unknown) date) and outflow tracts unknown) could not be visualized. Follow-up in 3 (unknown) (no (unknown) (unknown) water heater temp (units (unknown) date) set < 120 deg: Yes unknown) (unknown) (no (unknown) (unknown) week but they are (units (unknown) date) not lasting unknown) multiple days and not as intense. She is using an (unknown) (no (unknown) (unknown) weeks with repeat (units (unknown) date) ultrasound to unknown) check fluid. Warning signs reviewed. (unknown) (no (unknown) (unknown) weight gain, Fish (units (unknown) date) and mercury unknown) intake, Caffeine use, Exercise and activity, (unknown) (no (unknown) (unknown) well-balanced (units ( unknown) date) diet: daily or unknown) most days (unknown) (no (unknown) (unknown) with 11 weeks 3 (units (unknown) date) days. Left ovary unknown) is normal. Plan: Cell free DNA ordered. (unknown) (no (unknown) (unknown) with a fetus with (units (unknown) date) a crown-rump unknown) length measuring 4.63 cm. This is consistent (unknown) (no (unknown) (unknown) work/environmenta (units (unknown) date) l/hazards, Sexual unknown) activity, X-ray exposure, Medication use, (unknown) (no (unknown) (unknown) working smoke (units ( unknown) date) detector in home: unknown) Yes Result panel 156 (unknown) (no (unknown) (unknown) (no value) (units (unk nown) date) unknown) (unknown) (no (unknown) (unknown) 'syndrome';) (units (u nknown) date) unknown) (unknown) (no (unknown) (unknown) (+11 lb) 112/62 N (units (unknown) date) unknown) (unknown) (no (unknown) (unknown) (+13 lb) 118/68 N (units (unknown) date) unknown) (unknown) (no (unknown) (unknown) (+21 lb 7 oz) (units ( unknown) date) 98/68 N unknown) (unknown) (no (unknown) (unknown) (+27 lb) 110/70 N (units (unknown) date) unknown) (unknown) (no (unknown) (unknown) (+30 lb) 126/66 (units (unknown) date) unknown) (unknown) (no (unknown) (unknown) (+6 lb) 108/68 N (units (unknown) date) unknown) (unknown) (no (unknown) (unknown) (1) Advanced (units (u nknown) date) maternal age (AMA) unknown) in : (unknown) (no (unknown) (unknown) (2) Previous (units (u nknown) date) section unknown) complicating : (unknown) (no (unknown) (unknown) (3) History of (units (unknown) date) polyhydramnios: unknown) (unknown) (no (unknown) (unknown) (4) Obesity (units (un known) date) affecting unknown) : (unknown) (no (unknown) (unknown) (5) 31 weeks (units (u nknown) date) gestation of unknown) : (unknown) (no (unknown) (unknown) Genetic (units (unkn own) date) Screening/Teratolo unknown) gy Counseling - Includes patient, baby's father, or (unknown) (no (unknown) (unknown) -?-?-?-?-?-?-?-?- (units (unknown) date) ?-?-?-? unknown) (unknown) (no (unknown) (unknown) 01/24/14 41 17 7 (units (unknown) date) lb 1 oz Female unknown) live - full t (unknown) (no (unknown) (unknown) 02/19/21 39 7 lb (units (unknown) date) 12 oz Female live unknown) - full term (unknown) (no (unknown) (unknown) 05/13/22 (units (unkno wn) date) unknown) (unknown) (no (unknown) (unknown) 06/09/22 (units (unkno wn) date) unknown) (unknown) (no (unknown) (unknown) 06/16/15 38 7 lb (units (unknown) date) 13 oz Male unknown) live - full (unknown) (no (unknown) (unknown) 07/12/22 (units (unkno wn) date) unknown) (unknown) (no (unknown) (unknown) 08/15/22 (units (unkno wn) date) unknown) (unknown) (no (unknown) (unknown) 09/13/22 (units (unkno wn) date) unknown) (unknown) (no (unknown) (unknown) 10/04/22 1118 (units ( unknown) date) unknown) (unknown) (no (unknown) (unknown) 10/04/22 (units (unkno wn) date) unknown) (unknown) (no (unknown) (unknown) 10/04/22] (units (unkn own) date) unknown) (unknown) (no (unknown) (unknown) 10/18/21 8 (units (unk nown) date) spontaneous unknown) (unknown) (no (unknown) (unknown) 11:04 (units (unkno wn) date) unknown) (unknown) (no (unknown) (unknown) 11w 2d 261 lb (units ( unknown) date) unknown) (unknown) (no (unknown) (unknown) 11w3d 4 wks (units (un known) date) unknown) (unknown) (no (unknown) (unknown) 15w 1d 266 lb (units ( unknown) date) unknown) (unknown) (no (unknown) (unknown) 19w 6d 268 lb (units ( unknown) date) unknown) (unknown) (no (unknown) (unknown) 2 lb 15 oz. (units (un known) date) 55%ile. Placenta unknown) grade 0 and anterior. Normal amniotic fluid (unknown) (no (unknown) (unknown) 2 wks (units (unkno wn) date) unknown) (unknown) (no (unknown) (unknown) 20.14 cm. Grade 0 (units (unknown) date) placenta. Plan: unknown) Follow-up in 2 weeks. Warning signs (unknown) (no (unknown) (unknown) 24w 5d 276 lb 7 (units (unknown) date) oz unknown) (unknown) (no (unknown) (unknown) 28w 6d 282 lb (units ( unknown) date) unknown) (unknown) (no (unknown) (unknown) 3 wks (units (unkno wn) date) unknown) (unknown) (no (unknown) (unknown) 31 weeks (units (unkno wn) date) gestation. Good unknown) movement. 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 (unknown) (no (unknown) (unknown) Additional Social (units (unknown) date) History unknown) (unknown) (no (unknown) (unknown) Age/Sex: 32 / F (units (unknown) date) Date of Service: unknown) (unknown) (no (unknown) (unknown) Alcoholism (units (unk nown) date) unknown) (unknown) (no (unknown) (unknown) Allergies (units (unkn own) date) unknown) (unknown) (no (unknown) (unknown) [place] (units ( unknown) date) [id number] unknown) (unknown) (no (unknown) (unknown) Anaphylaxis (units (un known) date) unknown) (unknown) (no (unknown) (unknown) Anesthesia (units (unk nown) date) unknown) (unknown) (no (unknown) (unknown) Aneuploidy (units (unk nown) date) Screening Offered: unknown) Accepted (Would like CFDNA if qualified) (unknown) (no (unknown) (unknown) Anticipated (units (un known) date) course of unknown) care: discussed (unknown) (no (unknown) (unknown) Assessment and (units (unknown) date) Plan unknown) (unknown) (no (unknown) (unknown) Attending Dr: (units ( unknown) date) Josefina Baumann unknown) (unknown) (no (unknown) (unknown) BMI 48.9 (units (unkno wn) date) unknown) (unknown) (no (unknown) (unknown) BP 126/66 (units (unkn own) date) unknown) (unknown) (no (unknown) (unknown) Yonis 2 months (units (unknown) date) post-dates unknown) induction (unknown) (no (unknown) (unknown) (units (unkno wn) date) Plan/Preferences unknown) (unknown) (no (unknown) (unknown) Planning (units (unknown) date) unknown) (unknown) (no (unknown) (unknown) Blood Pressure (units (unknown) date) Location Rt unknown) brachial (unknown) (no (unknown) (unknown) Blood (units (unkno wn) date) transfusions?: yes unknown) (Never had but would accept ) (unknown) (no (unknown) (unknown) Breastfeed Preg (units (unknown) date) Comp Name unknown) (unknown) (no (unknown) (unknown) Carpal tunnel (units ( unknown) date) syndrome () unknown) (unknown) (no (unknown) (unknown) Children's (units (unk nown) date) unknown) (unknown) (no (unknown) (unknown) Confirmed (units (unkn own) date) 10/04/22] unknown) (unknown) (no (unknown) (unknown) Current Estimate (units (unknown) date) 11/30/22 LMP unknown) (Certain) 31w 6d (unknown) (no (unknown) (unknown) Current (units (unknown) date) History unknown) (unknown) (no (unknown) (unknown) DNA (units (unkno wn) date) unknown) (unknown) (no (unknown) (unknown) : 1990 (units (unknown) date) Acct:[id number] unknown) (unknown) (no (unknown) (unknown) Date of positive (units (unknown) date) home unknown) test: 03/25/22 (unknown) (no (unknown) (unknown) Date (units (unkno wn) date) unknown) (unknown) (no (unknown) (unknown) Daughter Juvenile (units (unknown) date) arthritis unknown) (unknown) (no (unknown) (unknown) Del. Date (units (unkn own) date) GA/Weeks Labor unknown) Lgth Wt Sex Route Outcome Anesthesia Place (unknown) (no (unknown) (unknown) Delivery Date: (units (unknown) date) 02/19/21 Last unknown) Updated by: Susi Petersen RN (unknown) (no (unknown) (unknown) Delivery Date: (units (unknown) date) 06/16/15 Last unknown) Updated by: Susi Petersen RN (unknown) (no (unknown) (unknown) Delv (units (unkno wn) date) unknown) (unknown) (no (unknown) (unknown) Denies other (units (u nknown) date) unknown) (unknown) (no (unknown) (unknown) Denies over the (units (unknown) date) counter unknown) medications, Denies alcohol, Denies illicit drugs and (unknown) (no (unknown) (unknown) Depression (units (unk nown) date) (-1999) unknown) (unknown) (no (unknown) (unknown) Depression: (units (un known) date) discussed unknown) (unknown) (no (unknown) (unknown) Dept at (units (unkno wn) date) . unknown) (unknown) (no (unknown) (unknown) Diet and Exercise (units (unknown) date) unknown) (unknown) (no (unknown) (unknown) Discussed (units (unkno wn) date) anesthesia, but unknown) encouraged Brittany to discuss this more in depth with (unknown) (no (unknown) (unknown) Documented By: (units (unknown) date) Josefina Baumann unknownRichard FINE 10/04/22 1102 (unknown) (no (unknown) (unknown) ECTOR Calculator (units (unknown) date) unknown) (unknown) (no (unknown) (unknown) EGA Weight BP (units ( unknown) date) UGlucose unknown) (unknown) (no (unknown) (unknown) Estimated (units (unkn own) date) Delivery Date unknown) Method Current (unknown) (no (unknown) (unknown) Family History (units (unknown) date) (Updated 06/08/22 unknown) @ 21:23 by Aurora Arevalo) (unknown) (no (unknown) (unknown) Father Diabetes (units (unknown) date) mellitus unknown) (unknown) (no (unknown) (unknown) Father of Baby: (units (unknown) date) same unknown) (unknown) (no (unknown) (unknown) [facility] ([facility] unknown) (unknown) (no (unknown) (unknown) First Trimester (units (unknown) date) Education unknown) Checklist (unknown) (no (unknown) (unknown) Follow-up in 4 (units (unknown) date) weeks. Warning unknown) signs reviewed. kag (unknown) (no (unknown) (unknown) Foot pain () (units (unknown) date) unknown) (unknown) (no (unknown) (unknown) (units (unkno wn) date) unknown) (unknown) (no (unknown) (unknown) [place] at her next (units (unknown) date) visit. f/u in 4 unknown) weeks. (unknown) (no (unknown) (unknown) Genetic Screening (units (unknown) date) + Counseling unknown) (unknown) (no (unknown) (unknown) Genetic Screening (units (unknown) date) unknown) (unknown) (no (unknown) (unknown) 5 (units (unkn own) date) Multiple births unknown) (unknown) (no (unknown) (unknown) HIV risk (units (unkno wn) date) evaluation: low unknown) risk (unknown) (no (unknown) (unknown) Health Center (units ( unknown) date) Education unknown) (unknown) (no (unknown) (unknown) Health center (units ( unknown) date) information: unknown) nature of practice discussed, personnel (unknown) (no (unknown) (unknown) Heavy menstrual (units (unknown) date) period () unknown) (unknown) (no (unknown) (unknown) Height 5 ft 4 in (units (unknown) date) unknown) (unknown) (no (unknown) (unknown) Hepatitis C risk (units (unknown) date) evaluation: low unknown) risk (unknown) (no (unknown) (unknown) History of (units (unk nown) date) Hepatitis B: No unknown) (unknown) (no (unknown) (unknown) History of (units (unk nown) date) Hepatitis C: No unknown) (unknown) (no (unknown) (unknown) History of (units (unk nown) date) surgery unknown) (unknown) (no (unknown) (unknown) Hospital: (units (u nknown) date) unknown) (unknown) (no (unknown) (unknown) [facility]. (units (unknown) date) unknown) (unknown) (no (unknown) (unknown) Hx # (units (u nknown) date) Pregnancies unknown) Elective abortions (unknown) (no (unknown) (unknown) Hx # Term (units (unkn own) date) Pregnancies 3 unknown) Ectopic pregnancies (unknown) (no (unknown) (unknown) Hx severe (units (unkn own) date) polyhydramnios unknown) (unknown) (no (unknown) (unknown) Hypothyroid (units (un known) date) unknown) (unknown) (no (unknown) (unknown) Infant will be (units (unknown) date) adopted?: no unknown) (unknown) (no (unknown) (unknown) Infection History (units (unknown) date) unknown) (unknown) (no (unknown) (unknown) Infectious (units (unk nown) date) Disease Education unknown) (unknown) (no (unknown) (unknown) Infectious (units (unk nown) date) disease exposure: unknown) chicken pox immunity discussed, hepatitis risk (unknown) (no (unknown) (unknown) Initial Weight: (units (unknown) date) 255 lb unknown) (unknown) (no (unknown) (unknown) Initials (units (unkno wn) date) unknown) (unknown) (no (unknown) (unknown) Intake Clinical (units (unknown) date) Staff unknown) (unknown) (no (unknown) (unknown) Intake Note: (units (u nknown) date) unknown) (unknown) (no (unknown) (unknown) Intake performed (units (unknown) date) by: unknown) Bibiana Delaney (unknown) (no (unknown) (unknown) Intake (units (unkno wn) date) unknown) (unknown) (no (unknown) (unknown) LM (units (unkno wn) date) unknown) (unknown) (no (unknown) (unknown) Brittany presents (units ( unknown) date) today with her 3 unknown) kids for a routine OB visit at 24w5d. She (unknown) (no (unknown) (unknown) Live with someone (units (unknown) date) with TB or exposed unknown) to TB: No (unknown) (no (unknown) (unknown) Loc: [facility] (units (unkno wn) date) unknown) (unknown) (no (unknown) (unknown) [id number] (units (unk nown) date) unknown) (unknown) (no (unknown) (unknown) Marital status: (units (unknown) date) unknown) (unknown) (no (unknown) (unknown) Medical History (units (unknown) date) (Updated 10/04/22 unknown) @ 11:18 by Josefina Baumann MD) (unknown) (no (unknown) (unknown) Medications (units (un known) date) unknown) (unknown) (no (unknown) (unknown) Mental health (units ( unknown) date) problem unknown) (unknown) (no (unknown) (unknown) Migraine (units (unkno wn) date) headaches unknown) (unknown) (no (unknown) (unknown) Mother Depression (units (unknown) date) unknown) (unknown) (no (unknown) (unknown) N No no 146 15 (units (unknown) date) N/A absent 4 wks unknown) (unknown) (no (unknown) (unknown) N No no 168 11 (units (unknown) date) N/A absent unknown) long/closed AGA (unknown) (no (unknown) (unknown) Nearsightedness (units (unknown) date) unknown) (unknown) (no (unknown) (unknown) Notes (units (unkno wn) date) unknown) (unknown) (no (unknown) (unknown) Number of Living (units (unknown) date) Children 3 unknown) (unknown) (no (unknown) (unknown) Number of (units (unkn own) date) fetuses:: Single unknown) (unknown) (no (unknown) (unknown) Nutrition and (units ( unknown) date) weight gain unknown) counseling: special diet: discussed (unknown) (no (unknown) (unknown) OB Office Visit (units (unknown) date) unknown) (unknown) (no (unknown) (unknown) OB Visit Log (units (u nknown) date) unknown) (unknown) (no (unknown) (unknown) Obesity (units (unkno wn) date) unknown) (unknown) (no (unknown) (unknown) On control (units (unknown) date) at conception?: No unknown) (unknown) (no (unknown) (unknown) PFSH (units (unkno wn) date) unknown) (unknown) (no (unknown) (unknown) PTSD (units (unkno wn) date) (post-traumatic unknown) stress disorder) (-2000) (unknown) (no (unknown) (unknown) Painful menstrual (units (unknown) date) periods (-2020) unknown) (unknown) (no (unknown) (unknown) Para 3 (units (unkno wn) date) Spontaneous unknown) abortions 1 (unknown) (no (unknown) (unknown) Partner history (units (unknown) date) of STD: denies hx unknown) (unknown) (no (unknown) (unknown) Partner history (units (unknown) date) of genital herpes: unknown) No (unknown) (no (unknown) (unknown) Partner: [facility] (units (unknown) date) [place] unknown) (unknown) (no (unknown) (unknown) Past Pregnancies (units (unknown) date) unknown) (unknown) (no (unknown) (unknown) Patient presents (units (unknown) date) accompanied by her unknown) children for routine visit at (unknown) (no (unknown) (unknown) Patient presents (units (unknown) date) for a new OB visit unknown) at 11 weeks gestation. She has had (unknown) (no (unknown) (unknown) Patient presents (units (unknown) date) for a routine unknown) visit at 15 weeks gestation. Cell (unknown) (no (unknown) (unknown) Patient presents (units (unknown) date) for a routine unknown) visit at 19 weeks gestation. She (unknown) (no (unknown) (unknown) Patient presents (units (unknown) date) for a routine unknown) visit at 28 weeks gestation. 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: (units ( unknown) date) Pediatric unknown) [facility] (unknown) (no (unknown) (unknown) Personal history (units (unknown) date) of STD: denies hx unknown) (unknown) (no (unknown) (unknown) Personal history (units (unknown) date) of genital herpes: unknown) No (unknown) (no (unknown) (unknown) Planned repeat (units (unknown) date) C/S, 11/24/22 unknown) (unknown) (no (unknown) (unknown) Polyhydramnios (units (unknown) date) unknown) (unknown) (no (unknown) (unknown) Position Sitting (units (unknown) date) unknown) (unknown) (no (unknown) (unknown) Postive screening (units (unknown) date) CF (In scans) unknown) (unknown) (no (unknown) (unknown) (units (unk nown) date) depression unknown) (unknown) (no (unknown) (unknown) History (units (unknown) date) unknown) (unknown) (no (unknown) (unknown) type:: (units (unknown) date) Other Normal unknown) (unknown) (no (unknown) (unknown) (units (unkno wn) date) Education unknown) (unknown) (no (unknown) (unknown) Initial (units (unknown) date) Assessment unknown) (unknown) (no (unknown) (unknown) Specific (units (unknown) date) Issues/Plans unknown) (unknown) (no (unknown) (unknown) Testing: (units (unknown) date) discussed unknown) (unknown) (no (unknown) (unknown) Visit (units (unknown) date) unknown) (unknown) (no (unknown) (unknown) (units (o wn) date) education packet: unknown) symptoms, Vitamins and iron, Diet and (unknown) (no (unknown) (unknown) Previous (units (unknown) date) section unknown) (unknown) (no (unknown) (unknown) Primary Care (units (u nknown) date) Provider: [facility] unknown) Health (unknown) (no (unknown) (unknown) Primary Ob (units (unk nown) date) Provider: unknown) Josefina Baumann (unknown) (no (unknown) (unknown) Prior (units (unkno wn) date) GBS-Infected unknown) child: No (unknown) (no (unknown) (unknown) [place] (units (unk nown) date) [place] 4 unknown) (unknown) (no (unknown) (unknown) Providers (units (unkn own) date) unknown) (unknown) (no (unknown) (unknown) Qualifiers: (units (un known) date) unknown) (unknown) (no (unknown) (unknown) RPR pos, TPA (units (u nknown) date) negative unknown) (unknown) (no (unknown) (unknown) Rash or viral (units ( unknown) date) illness since last unknown) menstrual period: Yes (minor head cold) (unknown) (no (unknown) (unknown) Reason For Visit (units (unknown) date) unknown) (unknown) (no (unknown) (unknown) Recent travel (units ( unknown) date) outside of unknown) country?: No (unknown) (no (unknown) (unknown) Recurrent (units (unkn own) date) loss or unknown) a stillbirth: No (unknown) (no (unknown) (unknown) Reports Other (units ( unknown) date) (Older son unknown) undergoing genetic workup for currently unidentified (unknown) (no (unknown) (unknown) 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 unknown) (unknown) (no (unknown) (unknown) Safety (units (unkno wn) date) unknown) (unknown) (no (unknown) (unknown) Sauna/hot tub (units ( unknown) date) use, Dental care, unknown) Marijuana use, Travel and Influenza vaccine (no (unknown) (no (unknown) (unknown) Signed By: (units (unk nown) date) <Electronically unknown) signed by Josefina Baumann MD> (unknown) (no (unknown) (unknown) Signed (units (unkno wn) date) unknown) (unknown) (no (unknown) (unknown) Smoking Status: (units (unknown) date) Former smoker unknown) (Quit-2020) (unknown) (no (unknown) (unknown) Social History (units (unknown) date) unknown) (unknown) (no (unknown) (unknown) Son Hearing loss (units (unknown) date) unknown) (unknown) (no (unknown) (unknown) Son undergoing (units (unknown) date) workup at unknown) [facility] for possible genetic anomaly (unknown) (no (unknown) (unknown) Status: Acute (units ( unknown) date) unknown) (unknown) (no (unknown) (unknown) Support (units (unkno wn) date) Person(s):: [facility] unknown) (unknown) (no (unknown) (unknown) Surgical History (units (unknown) date) (Updated 07/12/22 unknown) @ 15:10 by Josefina Baumann MD) (unknown) (no (unknown) (unknown) Surrogate (units (unkn own) date) ?: no unknown) (unknown) (no (unknown) (unknown) Symptoms since (units (unknown) date) LMP: Reports unknown) amenorrhea, nausea, fatigue, urinary frequency, (unknown) (no (unknown) (unknown) TR Yes no 138 30 (units (unknown) date) Breech absent AGA unknown) 29w2d (unknown) (no (unknown) (unknown) TR Yes no 143 26 (units (unknown) date) N/A absent 4 wks unknown) (unknown) (no (unknown) (unknown) TR Yes no 144 21 (units (unknown) date) N/A absent 4 wks unknown) (unknown) (no (unknown) (unknown) TSH. Discussed (units (unknown) date) TDAP vaccination unknown) nv. She had questions regarding anesthesia (unknown) (no (unknown) (unknown) Tdap, declines (units (unknown) date) flu unknown) (unknown) (no (unknown) (unknown) Teratogen (units (unkn own) date) Exposures since unknown) LMP/Conception: Denies prescription medications, (unknown) (no (unknown) (unknown) Testing Education (units (unknown) date) unknown) (unknown) (no (unknown) (unknown) Testing education (units (unknown) date) completed: group B unknown) strep, Spina bifida testing and Cell Free (unknown) (no (unknown) (unknown) This note may (units ( unknown) date) have been all or unknown) partially generated using voice recognition (unknown) (no (unknown) (unknown) 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 [place] (unknown) (no (unknown) (unknown) Tobacco + (units (unkn own) date) Substance Use unknown) (unknown) (no (unknown) (unknown) Tobacco Status (units (unknown) date) unknown) (unknown) (no (unknown) (unknown) Trimester: third (units (unknown) date) trimester unknown) Qualified Code(s): O99.213 - Obesity (unknown) (no (unknown) (unknown) Trimester:: 3rd (units (unknown) date) Trimester unknown) (28wks-Del) (unknown) (no (unknown) (unknown) Type(s) of (units (unk nown) date) exercise: walking unknown) (unknown) (no (unknown) (unknown) UProtein Movement (units (unknown) date) PreLabor FHR Fndl unknown) Ht Pres Edema Cerv Exam US/Comment Next Appt (unknown) (no (unknown) (unknown) Varicella/chicken (units (unknown) date) pox status: unknown) immunized (unknown) (no (unknown) (unknown) Visit Date: (units (un known) date) 05/13/22 Last unknown) Updated by: Josefina Baumann MD (unknown) (no (unknown) (unknown) Visit Date: (units (un known) date) 06/09/22 Last unknown) Updated by: Josefina Baumann MD (unknown) (no (unknown) (unknown) Visit Date: (units (un known) date) 07/12/22 Last unknown) Updated by: Josefina Baumann MD (unknown) (no (unknown) (unknown) Visit Date: (units (un known) date) 08/15/22 Last unknown) Updated by: Anita Perez P.A-C (unknown) (no (unknown) (unknown) Visit Date: (units (un known) date) 09/13/22 Last unknown) Updated by: Josefina Baumann MD (unknown) (no (unknown) (unknown) Visit Date: (units (un known) date) 10/04/22 Last unknown) Updated by: Josefina Baumann MD (unknown) (no (unknown) (unknown) Visit Reasons: OB (units (unknown) date) w US HUNTER *ok per unknown) Sharla (unknown) (no (unknown) (unknown) Vitals (units (unkno wn) date) unknown) (unknown) (no (unknown) (unknown) WG (units (unkno wn) date) unknown) (unknown) (no (unknown) (unknown) Weeks gestation:: (units (unknown) date) 31 unknown) (unknown) (no (unknown) (unknown) Weight 285 lb (units ( unknown) date) unknown) (unknown) (no (unknown) (unknown) [place] teeth (units (u nknown) date) extracted unknown) (unknown) (no (unknown) (unknown) Would like (units (unk nown) date) referral unknown) to [facility] grade breast pump at (unknown) (no (unknown) (unknown) Yes no 143 32 (units ( unknown) date) Breech absent HUNTER unknown) 20.14cm (unknown) (no (unknown) (unknown) Zika virus (units (unk nown) date) exposure: No unknown) (unknown) (no (unknown) (unknown) additional social (units (unknown) date) history: unknown) Difficulty other children. Would (unknown) (no (unknown) (unknown) alcohol intake: (units (unknown) date) former unknown) (unknown) (no (unknown) (unknown) anyone in either (units (unknown) date) family with: unknown) (unknown) (no (unknown) (unknown) attempted, unable (units (unknown) date) other Lavelle unknown) (unknown) (no (unknown) (unknown) because she has (units (unknown) date) had difficult unknown) spinals with all 3 of her deliveries. (unknown) (no (unknown) (unknown) bleeding. No (units (u nknown) date) regular unknown) contractions. On ultrasound: Breech presentation. 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 (units (unkno wn) date) unknown) (unknown) (no (unknown) (unknown) delivery. (units (unkn own) date) unknown) (unknown) (no (unknown) (unknown) described, visit (units (unknown) date) schedule reviewed, unknown) ultrasounds policy reviewed, coverage 24 (unknown) (no (unknown) (unknown) discussed, (units (unk nown) date) tuberculosis unknown) exposure discussed, CMV discussed, Toxoplasmosis (unknown) (no (unknown) (unknown) do you feel safe (units (unknown) date) at home: Yes unknown) (unknown) (no (unknown) (unknown) during the past (units (unknown) date) year weight has: unknown) other (wide fluctuations since last ) (unknown) (no (unknown) (unknown) education level: (units (unknown) date) vocational (some unknown) college, certificate programs) (unknown) (no (unknown) (unknown) erm [place] (units (u nknown) date) unknown) (unknown) (no (unknown) (unknown) f/u limited (units (un known) date) anatomy views at unknown) 28wk visit with Dr. Baumann. Ordered OGTT, CBC and (unknown) (no (unknown) (unknown) failure to (units (unk nown) date) progress Rosey unknown) (unknown) (no (unknown) (unknown) fetoprotein (units (un known) date) ordered. Warning unknown) signs reviewed. Follow-up in 5 weeks. kag (unknown) (no (unknown) (unknown) fire extinguisher (units (unknown) date) in home: Yes unknown) (unknown) (no (unknown) (unknown) firearms in home: (units (unknown) date) Yes firearms unknown) unloaded and locked: Yes (unknown) (no (unknown) (unknown) flaxseed Allergy (units (unknown) date) (Severe, Verified unknown) 10/04/22 11:03) (unknown) (no (unknown) (unknown) flu or covid (units (u nknown) date) vaccines received) unknown) (unknown) (no (unknown) (unknown) free DNA showed (units (unknown) date) normal female. She unknown) continues to have migraines several days a (unknown) (no (unknown) (unknown) grade breast pump (units (unknown) date) that she can have unknown) when she goes home from hospital after (unknown) (no (unknown) (unknown) had her 20 week (units (unknown) date) ultrasound today. unknown) Those results are not available. She has fel (unknown) (no (unknown) (unknown) had limited heart (units (unknown) date) and outflow tract unknown) views from her anatomy US. Plan 3D US and (unknown) (no (unknown) (unknown) have occurred. If (units (unknown) date) there are any unknown) questions, please contact the Medical Records (unknown) (no (unknown) (unknown) hours a day and (units (unknown) date) participation of unknown) father in care and office visits (unknown) (no (unknown) (unknown) household members: (units (unknown) date) spouse, family unknown) ([id number] and his 3 children (moving out (unknown) (no (unknown) (unknown) housing: house (units (unknown) date) unknown) (unknown) (no (unknown) (unknown) hydroxyzine HCl (units (unknown) date) 25 mg tablet 25 mg unknown) PO TID PRN anxiety #20 tabs 09/16/22 [Rx (unknown) (no (unknown) (unknown) is still having (units (unknown) date) occasional unknown) headaches. Good movement. No leakage of fluid (unknown) (no (unknown) (unknown) kag (units (unkno wn) date) unknown) (unknown) (no (unknown) (unknown) levothyroxine 125 (units (unknown) date) mcg tablet 125 mcg unknown) PO DAILY #30 tabs 08/25/22 [Rx Confirmed (unknown) (no (unknown) (unknown) lives (units (unkno wn) date) independently: Yes unknown) (unknown) (no (unknown) (unknown) magnesium 200 mg (units (unknown) date) tablet 200 mg PO unknown) DAILY 05/03/22 [History Confirmed 10/04/22] (unknown) (no (unknown) (unknown) marital status: (units (unknown) date) unknown) (unknown) (no (unknown) (unknown) may occur. (units (unk nown) date) Occasional unknown) wrong-word or 'sound-alike' substitutions may have (unknown) (no (unknown) (unknown) medication. No (units (unknown) date) vaginal bleeding. unknown) On ultrasound: Intrauterine gestational sac (unknown) (no (unknown) (unknown) migraines and (units ( unknown) date) these are getting unknown) a little better. She is using the prescribed (unknown) (no (unknown) (unknown) months other Iyla (units (unknown) date) unknown) (unknown) (no (unknown) (unknown) number of (units (unkn own) date) children: 3 unknown) (unknown) (no (unknown) (unknown) occasional 1 (units (u nknown) date) Percocet to treat unknown) these. Plan: 20 week ultrasound ordered. Alpha (unknown) (no (unknown) (unknown) occupational (units (u nknown) date) status: unemployed unknown) and previously employed (unknown) (no (unknown) (unknown) occurred due to (units (unknown) date) the inherent unknown) limitations of voice recognition software. Please (unknown) (no (unknown) (unknown) ondansetron 4 mg (units (unknown) date) disintegrating unknown) tablet 4 mg PO Q6H PRN nausea and vomiting #20 (unknown) (no (unknown) (unknown) or vaginal (units (unk nown) date) bleeding. On unknown) ultrasound: Breech presentation. AGA 29 weeks 2 days. (unknown) (no (unknown) (unknown) oxycodone 5 mg (units (unknown) date) tablet 5 mg PO Q6H unknown) PRN pain #10 tabs 09/09/22 [Rx Confirmed (unknown) (no (unknown) (unknown) pets and animals: (units (unknown) date) Yes (horses) unknown) (unknown) (no (unknown) (unknown) polyhydramnios (units (unknown) date) unknown) (unknown) (no (unknown) (unknown) precautions, (units (u nknown) date) Listeriosis unknown) prevention and Rubella Immunization (unknown) (no (unknown) (unknown) prenat.vits,alexey,m (units (unknown) date) [id number] 1 unknown) tab PO DAILY 04/22/22 [History Confirmed (unknown) (no (unknown) (unknown) pt here for OB w/ (units (unknown) date) us HUNTER unknown) (unknown) (no (unknown) (unknown) read the note (units ( unknown) date) carefully and unknown) recognize, using context, where these substitutions (unknown) (no (unknown) (unknown) really like to (units (unknown) date) meet w/ IBCLC unknown) prior to delivery and would like Rx for hospital (unknown) (no (unknown) (unknown) reports good (units (u nknown) date) movement and unknown) denies VB, LOF, contractions and cramping. She (unknown) (no (unknown) (unknown) reviewed. 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 (units (unkn own) date) Although every unknown) effort is made to edit content, fountain brush assembler errors (unknown) (no (unknown) (unknown) soon)) and (units (unk nown) date) children unknown) (unknown) (no (unknown) (unknown) special roland (units ( unknown) date) needs: No unknown) (unknown) (no (unknown) (unknown) substance use (units (u nknown) date) type: marijuana unknown) (in the past, not recently and not while ) (unknown) (no (unknown) (unknown) t rare (units (u nknown) date) movement. No unknown) leakage of fluid or vaginal bleeding. Plan: Follow (unknown) (no (unknown) (unknown) tabs 05/17/22 [Rx (units (unknown) date) Confirmed unknown) 10/04/22] (unknown) (no (unknown) (unknown) term [place] (units ( unknown) date) Yonis unknown) (unknown) (no (unknown) (unknown) up in 4 weeks. We (units (unknown) date) will call with unknown) anatomic survey results. (unknown) (no (unknown) (unknown) volume. The heart (units (unknown) date) and outflow tracts unknown) could not be visualized. Follow-up in 3 (unknown) (no (unknown) (unknown) water heater temp (units (unknown) date) set < 120 deg: Yes unknown) (unknown) (no (unknown) (unknown) week but they are (units (unknown) date) not lasting unknown) multiple days and not as intense. She is using an (unknown) (no (unknown) (unknown) weeks with repeat (units (unknown) date) ultrasound to unknown) check fluid. Warning signs reviewed. (unknown) (no (unknown) (unknown) weight gain, Fish (units (unknown) date) and mercury unknown) intake, Caffeine use, Exercise and activity, (unknown) (no (unknown) (unknown) well-balanced (units ( unknown) date) diet: daily or unknown) most days (unknown) (no (unknown) (unknown) with 11 weeks 3 (units (unknown) date) days. Left ovary unknown) is normal. Plan: Cell free DNA ordered. (unknown) (no (unknown) (unknown) with a fetus with (units (unknown) date) a crown-rump unknown) length measuring 4.63 cm. This is consistent (unknown) (no (unknown) (unknown) work/environmenta (units (unknown) date) l/hazards, Sexual unknown) activity, X-ray exposure, Medication use, (unknown) (no (unknown) (unknown) working smoke (units ( unknown) date) detector in home: unknown) Yes Result panel 157 (unknown) (no date) (unknown) (unknown) 0.79 ng/dl (unkn own) Result panel 158 (unknown) (no date) (unknown) (unknown) 0.79 ng/dl (unkn own) (unknown) (no date) (unknown) (unknown) 0.887 uiu/ml (unkn own) Result panel 159 (unknown) (no (unknown) (unknown) (no value) (units (unk nown) date) unknown) (unknown) (no (unknown) (unknown) 'syndrome';) (units (u nknown) date) unknown) (unknown) (no (unknown) (unknown) (+11 lb) 112/62 N (units (unknown) date) unknown) (unknown) (no (unknown) (unknown) (+13 lb) 118/68 N (units (unknown) date) unknown) (unknown) (no (unknown) (unknown) (+21 lb 7 oz) (units ( unknown) date) 98/68 N unknown) (unknown) (no (unknown) (unknown) (+27 lb) 110/70 N (units (unknown) date) unknown) (unknown) (no (unknown) (unknown) (+30 lb) 126/66 N (units (unknown) date) unknown) (unknown) (no (unknown) (unknown) (+6 lb) 108/68 N (units (unknown) date) unknown) (unknown) (no (unknown) (unknown) Genetic (units (unkn own) date) Screening/Teratolo unknown) gy Counseling - Includes patient, baby's father, or (unknown) (no (unknown) (unknown) -?-?-?-?-?-?-?-?- (units (unknown) date) ?-?-?-? unknown) (unknown) (no (unknown) (unknown) 01/24/14 41 17 7 (units (unknown) date) lb 1 oz Female unknown) live - full t (unknown) (no (unknown) (unknown) 02/19/21 39 7 lb (units (unknown) date) 12 oz Female live unknown) - full term (unknown) (no (unknown) (unknown) 05/13/22 (units (unkno wn) date) unknown) (unknown) (no (unknown) (unknown) 06/09/22 (units (unkno wn) date) unknown) (unknown) (no (unknown) (unknown) 06/16/15 38 7 lb (units (unknown) date) 13 oz Male unknown) live - full (unknown) (no (unknown) (unknown) 07/12/22 (units (unkno wn) date) unknown) (unknown) (no (unknown) (unknown) 08/15/22 (units (unkno wn) date) unknown) (unknown) (no (unknown) (unknown) 09/13/22 (units (unkno wn) date) unknown) (unknown) (no (unknown) (unknown) 10/04/22 (units (unkno wn) date) unknown) (unknown) (no (unknown) (unknown) 10/18/21 8 (units (unk nown) date) spontaneous unknown) (unknown) (no (unknown) (unknown) 10/18/22 (units (unkno wn) date) unknown) (unknown) (no (unknown) (unknown) 10/18/22] (units (unkn own) date) unknown) (unknown) (no (unknown) (unknown) 11w 2d 261 lb (units ( unknown) date) unknown) (unknown) (no (unknown) (unknown) 11w3d 4 wks (units (un known) date) unknown) (unknown) (no (unknown) (unknown) 13:20 (units (unkno wn) date) unknown) (unknown) (no (unknown) (unknown) 15w 1d 266 lb (units ( unknown) date) unknown) (unknown) (no (unknown) (unknown) 19w 6d 268 lb (units ( unknown) date) unknown) (unknown) (no (unknown) (unknown) 2 lb 15 oz. (units (un known) date) 55%ile. Placenta unknown) grade 0 and anterior. Normal amniotic fluid (unknown) (no (unknown) (unknown) 2 wks (units (unkno wn) date) unknown) (unknown) (no (unknown) (unknown) 20.14 cm. Grade 0 (units (unknown) date) placenta. Plan: unknown) Follow-up in 2 weeks. Warning signs (unknown) (no (unknown) (unknown) 24w 5d 276 lb 7 (units (unknown) date) oz unknown) (unknown) (no (unknown) (unknown) 28w 6d 282 lb (units ( unknown) date) unknown) (unknown) (no (unknown) (unknown) 3 wks (units (unkno wn) date) unknown) (unknown) (no (unknown) (unknown) 31 weeks (units (unkno wn) date) gestation. Good unknown) movement. 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 (unknown) (no (unknown) (unknown) Additional Social (units (unknown) date) History unknown) (unknown) (no (unknown) (unknown) Age/Sex: 32 / F (units (unknown) date) Date of Service: unknown) (unknown) (no (unknown) (unknown) Alcoholism (units (unk nown) date) unknown) (unknown) (no (unknown) (unknown) Allergies (units (unkn own) date) unknown) (unknown) (no (unknown) (unknown) [place] (units ( unknown) date) [id number] unknown) (unknown) (no (unknown) (unknown) Anaphylaxis (units (un known) date) unknown) (unknown) (no (unknown) (unknown) Anesthesia (units (unk nown) date) unknown) (unknown) (no (unknown) (unknown) Aneuploidy (units (unk nown) date) Screening Offered: unknown) Accepted (Would like CFDNA if qualified) (unknown) (no (unknown) (unknown) Anticipated (units (un known) date) course of unknown) care: discussed (unknown) (no (unknown) (unknown) Assessment and (units (unknown) date) Plan unknown) (unknown) (no (unknown) (unknown) Attending Dr: (units ( unknown) date) Glen Ojeda MD unknown) (unknown) (no (unknown) (unknown) BMI 49.6 (units (unkno wn) date) unknown) (unknown) (no (unknown) (unknown) BP 104/68 (units (unkn own) date) unknown) (unknown) (no (unknown) (unknown) [place] 2 months (units (unknown) date) post-dates unknown) induction (unknown) (no (unknown) (unknown) (units (unkno wn) date) Plan/Preferences unknown) (unknown) (no (unknown) (unknown) Planning (units (unknown) date) unknown) (unknown) (no (unknown) (unknown) Blood Pressure (units (unknown) date) Location Lt unknown) brachial (unknown) (no (unknown) (unknown) Blood (units (unkno wn) date) transfusions?: yes unknown) (Never had but would accept ) (unknown) (no (unknown) (unknown) Breastfeed Preg (units (unknown) date) Comp Name unknown) (unknown) (no (unknown) (unknown) Carpal tunnel (units ( unknown) date) syndrome (-2017) unknown) (unknown) (no (unknown) (unknown) Children's (units (unk nown) date) unknown) (unknown) (no (unknown) (unknown) Confirmed (units (unkn own) date) 10/18/22] unknown) (unknown) (no (unknown) (unknown) Current Estimate (units (unknown) date) 11/30/22 LMP unknown) (Certain) 33w 6d (unknown) (no (unknown) (unknown) Current (units (unknown) date) History unknown) (unknown) (no (unknown) (unknown) DNA (units (unkno wn) date) unknown) (unknown) (no (unknown) (unknown) : 1990 (units (unknown) date) Acct:[id number] unknown) (unknown) (no (unknown) (unknown) Date of positive (units (unknown) date) home unknown) test: 03/25/22 (unknown) (no (unknown) (unknown) Date (units (unkno wn) date) unknown) (unknown) (no (unknown) (unknown) Daughter Juvenile (units (unknown) date) arthritis unknown) (unknown) (no (unknown) (unknown) Del. Date (units (unkn own) date) GA/Weeks Labor unknown) Lgth Wt Sex Route Outcome Anesthesia Place (unknown) (no (unknown) (unknown) Delivery Date: (units (unknown) date) 02/19/21 Last unknown) Updated by: Susi Petersen RN (unknown) (no (unknown) (unknown) Delivery Date: (units (unknown) date) 06/16/15 Last unknown) Updated by: Susi Petersen RN (unknown) (no (unknown) (unknown) Delv (units (unkno wn) date) unknown) (unknown) (no (unknown) (unknown) Denies other (units (u nknown) date) unknown) (unknown) (no (unknown) (unknown) Denies over the (units (unknown) date) counter unknown) medications, Denies alcohol, Denies illicit drugs and (unknown) (no (unknown) (unknown) Depression (units (unk nown) date) (-1999) unknown) (unknown) (no (unknown) (unknown) Depression: (units (un known) date) discussed unknown) (unknown) (no (unknown) (unknown) Dept at (units (unkno wn) date) . unknown) (unknown) (no (unknown) (unknown) Diet and Exercise (units (unknown) date) unknown) (unknown) (no (unknown) (unknown) Discussed (units (unkno wn) date) anesthesia, but unknown) encouraged Brittany to discuss this more in depth with (unknown) (no (unknown) (unknown) Documented By: (units (unknown) date) Glen Ojeda MD unknown) 10/18/22 1314 (unknown) (no (unknown) (unknown) Draft (units (unkno wn) date) unknown) (unknown) (no (unknown) (unknown) ECTOR Calculator (units (unknown) date) unknown) (unknown) (no (unknown) (unknown) EGA Weight BP (units ( unknown) date) UGlucose unknown) (unknown) (no (unknown) (unknown) Estimated (units (unkn own) date) Delivery Date unknown) Method Current (unknown) (no (unknown) (unknown) Family History (units (unknown) date) (Updated 06/08/22 unknown) @ 21:23 by Aurora Arevalo) (unknown) (no (unknown) (unknown) Father Diabetes (units (unknown) date) mellitus unknown) (unknown) (no (unknown) (unknown) Father of Baby: (units (unknown) date) same unknown) (unknown) (no (unknown) (unknown) [facility]) (unknown) (no (unknown) (unknown) First Trimester (units (unknown) date) Education unknown) Checklist (unknown) (no (unknown) (unknown) Follow-up in 4 (units (unknown) date) weeks. Warning unknown) signs reviewed. kag (unknown) (no (unknown) (unknown) Follow-up in 4 (units (unknown) date) weeks. We will unknown) call with anatomic survey results. (unknown) (no (unknown) (unknown) Foot pain () (units (unknown) date) unknown) (unknown) (no (unknown) (unknown) (units (unkno wn) date) unknown) (unknown) (no (unknown) (unknown) [place] at her next (units (unknown) date) visit. f/u in 4 unknown) weeks. (unknown) (no (unknown) (unknown) Genetic Screening (units (unknown) date) + Counseling unknown) (unknown) (no (unknown) (unknown) Genetic Screening (units (unknown) date) unknown) (unknown) (no (unknown) (unknown) 5 (units (unkn own) date) Multiple births unknown) (unknown) (no (unknown) (unknown) HIV risk (units (unkno wn) date) evaluation: low unknown) risk (unknown) (no (unknown) (unknown) Health Center (units ( unknown) date) Education unknown) (unknown) (no (unknown) (unknown) Health center (units ( unknown) date) information: unknown) nature of practice discussed, personnel (unknown) (no (unknown) (unknown) Heavy menstrual (units (unknown) date) period (-2021) unknown) (unknown) (no (unknown) (unknown) Height 5 ft 4 in (units (unknown) date) unknown) (unknown) (no (unknown) (unknown) Hepatitis C risk (units (unknown) date) evaluation: low unknown) risk (unknown) (no (unknown) (unknown) History of (units (unk nown) date) Hepatitis B: No unknown) (unknown) (no (unknown) (unknown) History of (units (unk nown) date) Hepatitis C: No unknown) (unknown) (no (unknown) (unknown) History of (units (unk nown) date) surgery unknown) (unknown) (no (unknown) (unknown) Hospital: (units (u nknown) date) unknown) (unknown) (no (unknown) (unknown) [facility]. (units (unknown) date) unknown) (unknown) (no (unknown) (unknown) Hx # (units (u nknown) date) Pregnancies unknown) Elective abortions (unknown) (no (unknown) (unknown) Hx # Term (units (unkn own) date) Pregnancies 3 unknown) Ectopic pregnancies (unknown) (no (unknown) (unknown) Hx severe (units (unkn own) date) polyhydramnios unknown) (unknown) (no (unknown) (unknown) Hypothyroid (units (un known) date) unknown) (unknown) (no (unknown) (unknown) will be (units (unknown) date) adopted?: no unknown) (unknown) (no (unknown) (unknown) Infection History (units (unknown) date) unknown) (unknown) (no (unknown) (unknown) Infectious (units (unk nown) date) Disease Education unknown) (unknown) (no (unknown) (unknown) Infectious (units (unk nown) date) disease exposure: unknown) chicken pox immunity discussed, hepatitis risk (unknown) (no (unknown) (unknown) Initial Weight: (units (unknown) date) 255 lb unknown) (unknown) (no (unknown) (unknown) Initials (units (unkno wn) date) unknown) (unknown) (no (unknown) (unknown) Intake Clinical (units (unknown) date) Staff unknown) (unknown) (no (unknown) (unknown) Intake Note: (units (u nknown) date) unknown) (unknown) (no (unknown) (unknown) Intake performed (units (unknown) date) by: Libby Saravia unknown) (unknown) (no (unknown) (unknown) Intake (units (unkno wn) date) unknown) (unknown) (no (unknown) (unknown) LM (units (unkno wn) date) unknown) (unknown) (no (unknown) (unknown) Brittany presents (units ( unknown) date) today with her 3 unknown) kids for a routine OB visit at 24w5d. She (unknown) (no (unknown) (unknown) Live with someone (units (unknown) date) with TB or exposed unknown) to TB: No (unknown) (no (unknown) (unknown) Loc: [facility] (units (unkno wn) date) unknown) (unknown) (no (unknown) (unknown) [id number] (units (unk nown) date) unknown) (unknown) (no (unknown) (unknown) Marital status: (units (unknown) date) unknown) (unknown) (no (unknown) (unknown) Medical History (units (unknown) date) (Updated 10/04/22 unknown) @ 11:18 by Josefina Baumann MD) (unknown) (no (unknown) (unknown) Medications (units (un known) date) unknown) (unknown) (no (unknown) (unknown) Mental health (units ( unknown) date) problem unknown) (unknown) (no (unknown) (unknown) Migraine (units (unkno wn) date) headaches unknown) (unknown) (no (unknown) (unknown) Mother Depression (units (unknown) date) unknown) (unknown) (no (unknown) (unknown) N No no 146 15 (units (unknown) date) N/A absent 4 wks unknown) (unknown) (no (unknown) (unknown) N No no 168 11 (units (unknown) date) N/A absent unknown) long/closed AGA (unknown) (no (unknown) (unknown) N Yes no 143 32 (units (unknown) date) Breech absent HUNTER unknown) 20.14cm (unknown) (no (unknown) (unknown) Nearsightedness (units (unknown) date) unknown) (unknown) (no (unknown) (unknown) Notes (units (unkno wn) date) unknown) (unknown) (no (unknown) (unknown) Number of Living (units (unknown) date) Children 3 unknown) (unknown) (no (unknown) (unknown) Number of (units (unkn own) date) fetuses:: Single unknown) (unknown) (no (unknown) (unknown) Nutrition and (units ( unknown) date) weight gain unknown) counseling: special diet: discussed (unknown) (no (unknown) (unknown) OB Office Visit (units (unknown) date) unknown) (unknown) (no (unknown) (unknown) OB Visit Log (units (u nknown) date) unknown) (unknown) (no (unknown) (unknown) Obesity (units (unkno wn) date) unknown) (unknown) (no (unknown) (unknown) On control (units (unknown) date) at conception?: No unknown) (unknown) (no (unknown) (unknown) Orders (units (unkno wn) date) unknown) (unknown) (no (unknown) (unknown) Orders: (units (unkno wn) date) unknown) (unknown) (no (unknown) (unknown) PFSH (units (unkno wn) date) unknown) (unknown) (no (unknown) (unknown) PTSD (units (unkno wn) date) (post-traumatic unknown) stress disorder) (-1999) (unknown) (no (unknown) (unknown) Painful menstrual (units (unknown) date) periods (-2019) unknown) (unknown) (no (unknown) (unknown) Para 3 (units (unkno wn) date) Spontaneous unknown) abortions 1 (unknown) (no (unknown) (unknown) Partner history (units (unknown) date) of STD: denies hx unknown) (unknown) (no (unknown) (unknown) Partner history (units (unknown) date) of genital herpes: unknown) No (unknown) (no (unknown) (unknown) Partner: [facility] (units (unknown) date) White unknown) (unknown) (no (unknown) (unknown) Past Pregnancies (units (unknown) date) unknown) (unknown) (no (unknown) (unknown) Patient presents (units (unknown) date) accompanied by her unknown) children for routine visit at (unknown) (no (unknown) (unknown) Patient presents (units (unknown) date) for a new OB visit unknown) at 11 weeks gestation. She has had (unknown) (no (unknown) (unknown) Patient presents (units (unknown) date) for a routine unknown) visit at 15 weeks gestation. Cell (unknown) (no (unknown) (unknown) Patient presents (units (unknown) date) for a routine unknown) visit at 19 weeks gestation. She (unknown) (no (unknown) (unknown) Patient presents (units (unknown) date) for a routine unknown) visit at 28 weeks gestation. 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: (units ( unknown) date) Pediatric unknown) [facility] (unknown) (no (unknown) (unknown) Personal history (units (unknown) date) of STD: denies hx unknown) (unknown) (no (unknown) (unknown) Personal history (units (unknown) date) of genital herpes: unknown) No (unknown) (no (unknown) (unknown) Planned repeat (units (unknown) date) C/S, 11/24/22 unknown) (unknown) (no (unknown) (unknown) Polyhydramnios (units (unknown) date) unknown) (unknown) (no (unknown) (unknown) Position Sitting (units (unknown) date) unknown) (unknown) (no (unknown) (unknown) Postive screening (units (unknown) date) CF (In scans) unknown) (unknown) (no (unknown) (unknown) (units (unk nown) date) depression unknown) (unknown) (no (unknown) (unknown) History (units (unknown) date) unknown) (unknown) (no (unknown) (unknown) type:: (units (unknown) date) Other Normal unknown) (unknown) (no (unknown) (unknown) (units (unkno wn) date) Education unknown) (unknown) (no (unknown) (unknown) Initial (units (unknown) date) Assessment unknown) (unknown) (no (unknown) (unknown) Specific (units (unknown) date) Issues/Plans unknown) (unknown) (no (unknown) (unknown) Testing: (units (unknown) date) discussed unknown) (unknown) (no (unknown) (unknown) Visit (units (unknown) date) unknown) (unknown) (no (unknown) (unknown) (units (unkno wn) date) education packet: unknown) symptoms, Vitamins and iron, Diet and (unknown) (no (unknown) (unknown) Previous (units (unknown) date) section unknown) (unknown) (no (unknown) (unknown) Primary Care (units (u nknown) date) Provider: [facility] unknown) [facility] (unknown) (no (unknown) (unknown) Primary Ob (units (unk nown) date) Provider: unknown) Josefina Baumann (unknown) (no (unknown) (unknown) Prior (units (unkno wn) date) GBS-Infected unknown) child: No (unknown) (no (unknown) (unknown) [place] (units (unk nown) date) [place] 4 unknown) (unknown) (no (unknown) (unknown) Providers (units (unkn own) date) unknown) (unknown) (no (unknown) (unknown) Pt here for OB (units (unknown) date) Check *Pastor pt* unknown) needs to sign her sterilization consent today (unknown) (no (unknown) (unknown) RPR pos, TPA (units (u nknown) date) negative unknown) (unknown) (no (unknown) (unknown) Rash or viral (units ( unknown) date) illness since last unknown) menstrual period: Yes (minor head cold) (unknown) (no (unknown) (unknown) Reason For Visit (units (unknown) date) unknown) (unknown) (no (unknown) (unknown) Recent travel (units ( unknown) date) outside of unknown) country?: No (unknown) (no (unknown) (unknown) Recurrent (units (unkn own) date) loss or unknown) a stillbirth: No (unknown) (no (unknown) (unknown) Reports Other (units ( unknown) date) (Older son unknown) undergoing genetic workup for currently unidentified (unknown) (no (unknown) (unknown) 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 unknown) (unknown) (no (unknown) (unknown) Safety (units (unkno wn) date) unknown) (unknown) (no (unknown) (unknown) Sauna/hot tub (units ( unknown) date) use, Dental care, unknown) Marijuana use, Travel and Influenza vaccine (no (unknown) (no (unknown) (unknown) Signed By: (units (unk nown) date) unknown) (unknown) (no (unknown) (unknown) Smoking Status: (units (unknown) date) Former smoker unknown) (Quit-2020) (unknown) (no (unknown) (unknown) Social History (units (unknown) date) unknown) (unknown) (no (unknown) (unknown) Son Hearing loss (units (unknown) date) unknown) (unknown) (no (unknown) (unknown) Son undergoing (units (unknown) date) workup at unknown[facility] (unknown) (no (unknown) (unknown) Support (units (unkno wn) date) Person(s):: Adriano unknown) (unknown) (no (unknown) (unknown) Surgical History (units (unknown) date) (Updated 07/12/22 unknown) @ 15:10 by Josefina Baumann MD) (unknown) (no (unknown) (unknown) Surrogate (units (unkn own) date) ?: no unknown) (unknown) (no (unknown) (unknown) Symptoms since (units (unknown) date) LMP: Reports unknown) amenorrhea, nausea, fatigue, urinary frequency, (unknown) (no (unknown) (unknown) TR Yes no 138 30 (units (unknown) date) Breech absent AGA unknown) 29w2d (unknown) (no (unknown) (unknown) TR Yes no 143 26 (units (unknown) date) N/A absent 4 wks unknown) (unknown) (no (unknown) (unknown) TR Yes no 144 21 (units (unknown) date) N/A absent 4 wks unknown) (unknown) (no (unknown) (unknown) TSH. Discussed (units (unknown) date) TDAP vaccination unknown) nv. She had questions regarding anesthesia (unknown) (no (unknown) (unknown) Tdap, declines (units (unknown) date) flu unknown) (unknown) (no (unknown) (unknown) Teratogen (units (unkn own) date) Exposures since unknown) LMP/Conception: Denies prescription medications, (unknown) (no (unknown) (unknown) Testing Education (units (unknown) date) unknown) (unknown) (no (unknown) (unknown) Testing education (units (unknown) date) completed: group B unknown) strep, Spina bifida testing and Cell Free (unknown) (no (unknown) (unknown) This note may (units ( unknown) date) have been all or unknown) partially generated using voice recognition (unknown) (no (unknown) (unknown) 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 [place] (unknown) (no (unknown) (unknown) Tobacco + (units (unkn own) date) Substance Use unknown) (unknown) (no (unknown) (unknown) Tobacco Status (units (unknown) date) unknown) (unknown) (no (unknown) (unknown) Trimester:: 3rd (units (unknown) date) Trimester unknown) (28wks-Del) (unknown) (no (unknown) (unknown) Type(s) of (units (unk nown) date) exercise: walking unknown) (unknown) (no (unknown) (unknown) UProtein Movement (units (unknown) date) PreLabor FHR Fndl unknown) Ht Pres Edema Cerv Exam US/Comment Next Appt (unknown) (no (unknown) (unknown) US OB limited 1 (units (unknown) date) Week O99.210 - unknown) Obesity complicating , unspecified (unknown) (no (unknown) (unknown) Varicella/chicken (units (unknown) date) pox status: unknown) immunized (unknown) (no (unknown) (unknown) Visit Date: (units (un known) date) 05/13/22 Last unknown) Updated by: Josefina Baumann MD (unknown) (no (unknown) (unknown) Visit Date: (units (un known) date) 06/09/22 Last unknown) Updated by: Josefina Baumann MD (unknown) (no (unknown) (unknown) Visit Date: (units (un known) date) 07/12/22 Last unknown) Updated by: Josefina Baumann MD (unknown) (no (unknown) (unknown) Visit Date: (units (un known) date) 08/15/22 Last unknown) Updated by: Anita Perez P.A-C (unknown) (no (unknown) (unknown) Visit Date: (units (un known) date) 09/13/22 Last unknown) Updated by: Josefina Baumann MD (unknown) (no (unknown) (unknown) Visit Date: (units (un known) date) 10/04/22 Last unknown) Updated by: Josefina Baumann MD (unknown) (no (unknown) (unknown) Visit Reasons: OB (units (unknown) date) Sign consent unknown) (unknown) (no (unknown) (unknown) Vitals (units (unkno wn) date) unknown) (unknown) (no (unknown) (unknown) WG (units (unkno wn) date) unknown) (unknown) (no (unknown) (unknown) Weeks gestation:: (units (unknown) date) 33 unknown) (unknown) (no (unknown) (unknown) Weight 289 lb (units ( unknown) date) unknown) (unknown) (no (unknown) (unknown) [place] teeth (units (u nknown) date) extracted unknown) (unknown) (no (unknown) (unknown) Would like (units (unk nown) date) referral unknown) to [facility] grade breast pump at (unknown) (no (unknown) (unknown) Zika virus (units (unk nown) date) exposure: No unknown) (unknown) (no (unknown) (unknown) additional social (units (unknown) date) history: unknown) Difficulty other children. Would (unknown) (no (unknown) (unknown) alcohol intake: (units (unknown) date) former unknown) (unknown) (no (unknown) (unknown) anyone in either (units (unknown) date) family with: unknown) (unknown) (no (unknown) (unknown) attempted, unable (units (unknown) date) other [place] unknown) (unknown) (no (unknown) (unknown) azithromycin 250 (units (unknown) date) mg tablet See Rx unknown) Instructions PO .COMPLEX #6 tabs 10/07/22 [Rx (unknown) (no (unknown) (unknown) because she has (units (unknown) date) had difficult unknown) spinals with all 3 of her deliveries. (unknown) (no (unknown) (unknown) bleeding. No (units (u nknown) date) regular unknown) contractions. On ultrasound: Breech presentation. 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 (units (unkno wn) date) unknown) (unknown) (no (unknown) (unknown) delivery. (units (unkn own) date) unknown) (unknown) (no (unknown) (unknown) described, visit (units (unknown) date) schedule reviewed, unknown) ultrasounds policy reviewed, coverage 24 (unknown) (no (unknown) (unknown) discussed, (units (unk nown) date) tuberculosis unknown) exposure discussed, CMV discussed, Toxoplasmosis (unknown) (no (unknown) (unknown) do you feel safe (units (unknown) date) at home: Yes unknown) (unknown) (no (unknown) (unknown) during the past (units (unknown) date) year weight has: unknown) other (wide fluctuations since last ) (unknown) (no (unknown) (unknown) education level: (units (unknown) date) vocational (some unknown) college, certificate programs) (unknown) (no (unknown) (unknown) erm [place] (units (u nknown) date) unknown) (unknown) (no (unknown) (unknown) f/u limited (units (un known) date) anatomy views at unknown) 28wk visit with Dr. Baumann. Ordered OGTT, CBC and (unknown) (no (unknown) (unknown) failure to (units (unk nown) date) progress [place] unknown) (unknown) (no (unknown) (unknown) felt rare (units (unknown) date) movement. No unknown) leakage of fluid or vaginal bleeding. Plan: (unknown) (no (unknown) (unknown) fetoprotein (units (un known) date) ordered. Warning unknown) signs reviewed. Follow-up in 5 weeks. kag (unknown) (no (unknown) (unknown) fire extinguisher (units (unknown) date) in home: Yes unknown) (unknown) (no (unknown) (unknown) firearms in home: (units (unknown) date) Yes firearms unknown) unloaded and locked: Yes (unknown) (no (unknown) (unknown) flaxseed Allergy (units (unknown) date) (Severe, Verified unknown) 10/18/22 13:20) (unknown) (no (unknown) (unknown) flu or covid (units (u nknown) date) vaccines received) unknown) (unknown) (no (unknown) (unknown) free DNA showed (units (unknown) date) normal female. She unknown) continues to have migraines several days a (unknown) (no (unknown) (unknown) grade breast pump (units (unknown) date) that she can have unknown) when she goes home from hospital after (unknown) (no (unknown) (unknown) had her 20 week (units (unknown) date) ultrasound today. unknown) Those results are not available. She has (unknown) (no (unknown) (unknown) had limited heart (units (unknown) date) and outflow tract unknown) views from her anatomy US. Plan 3D US and (unknown) (no (unknown) (unknown) have occurred. If (units (unknown) date) there are any unknown) questions, please contact the Medical Records (unknown) (no (unknown) (unknown) hours a day and (units (unknown) date) participation of unknown) father in care and office visits (unknown) (no (unknown) (unknown) household members: (units (unknown) date) spouse, family unknown) ([id number] and his 3 children (moving out (unknown) (no (unknown) (unknown) housing: house (units (unknown) date) unknown) (unknown) (no (unknown) (unknown) hydroxyzine HCl (units (unknown) date) 25 mg tablet 25 mg unknown) PO TID PRN anxiety #20 tabs 09/16/22 [Rx (unknown) (no (unknown) (unknown) is still having (units (unknown) date) occasional unknown) headaches. Good movement. No leakage of fluid (unknown) (no (unknown) (unknown) kag (units (unkno wn) date) unknown) (unknown) (no (unknown) (unknown) levothyroxine 137 (units (unknown) date) mcg tablet 137 mcg unknown) PO DAILY #30 tabs 10/17/22 [Rx Confirmed (unknown) (no (unknown) (unknown) lives (units (unkno wn) date) independently: Yes unknown) (unknown) (no (unknown) (unknown) magnesium 200 mg (units (unknown) date) tablet 200 mg PO unknown) DAILY 05/03/22 [History Confirmed 10/18/22] (unknown) (no (unknown) (unknown) marital status: (units (unknown) date) unknown) (unknown) (no (unknown) (unknown) may occur. (units (unk nown) date) Occasional unknown) wrong-word or 'sound-alike' substitutions may have (unknown) (no (unknown) (unknown) medication. No (units (unknown) date) vaginal bleeding. unknown) On ultrasound: Intrauterine gestational sac (unknown) (no (unknown) (unknown) migraines and (units ( unknown) date) these are getting unknown) a little better. She is using the prescribed (unknown) (no (unknown) (unknown) months other Iyla (units (unknown) date) unknown) (unknown) (no (unknown) (unknown) number of (units (unkn own) date) children: 3 unknown) (unknown) (no (unknown) (unknown) occasional 1 (units (u nknown) date) Percocet to treat unknown) these. Plan: 20 week ultrasound ordered. Alpha (unknown) (no (unknown) (unknown) occupational (units (u nknown) date) status: unemployed unknown) and previously employed (unknown) (no (unknown) (unknown) occurred due to (units (unknown) date) the inherent unknown) limitations of voice recognition software. Please (unknown) (no (unknown) (unknown) ondansetron 4 mg (units (unknown) date) disintegrating unknown) tablet 4 mg PO Q6H PRN nausea and vomiting #20 (unknown) (no (unknown) (unknown) or vaginal (units (unk nown) date) bleeding. On unknown) ultrasound: Breech presentation. AGA 29 weeks 2 days. (unknown) (no (unknown) (unknown) oxycodone 5 mg (units (unknown) date) tablet 5 mg PO Q6H unknown) PRN pain #10 tabs 10/12/22 [Rx Confirmed (unknown) (no (unknown) (unknown) pets and animals: (units (unknown) date) Yes (horses) unknown) (unknown) (no (unknown) (unknown) polyhydramnios (units (unknown) date) unknown) (unknown) (no (unknown) (unknown) precautions, (units (u nknown) date) Listeriosis unknown) prevention and Rubella Immunization (unknown) (no (unknown) (unknown) prenat.vits,alexey,m (units (unknown) date) sk-mied-smmwl 1 unknown) tab PO DAILY 04/22/22 [History Confirmed (unknown) (no (unknown) (unknown) read the note (units ( unknown) date) carefully and unknown) recognize, using context, where these substitutions (unknown) (no (unknown) (unknown) really like to (units (unknown) date) meet w/ IBCLC unknown) prior to delivery and would like Rx for hospital (unknown) (no (unknown) (unknown) reports good (units (u nknown) date) movement and unknown) denies VB, LOF, contractions and cramping. She (unknown) (no (unknown) (unknown) reviewed. 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 (units (unkn own) date) Although every unknown) effort is made to edit content, fountain brush assembler errors (unknown) (no (unknown) (unknown) soon)) and (units (unk nown) date) children unknown) (unknown) (no (unknown) (unknown) special [place] (units ( unknown) date) needs: No unknown) (unknown) (no (unknown) (unknown) substance use (units (u nknown) date) type: marijuana unknown) (in the past, not recently and not while ) (unknown) (no (unknown) (unknown) tabs 05/17/22 [Rx (units (unknown) date) Confirmed unknown) 10/18/22] (unknown) (no (unknown) (unknown) term [place] (units ( unknown) date) Yonis unknown) (unknown) (no (unknown) (unknown) trimester, Z87.59 (units (unknown) date) - Personal history unknown) of other complications of , (unknown) (no (unknown) (unknown) volume. The heart (units (unknown) date) and outflow tracts unknown) could not be visualized. Follow-up in 3 (unknown) (no (unknown) (unknown) water heater temp (units (unknown) date) set < 120 deg: Yes unknown) (unknown) (no (unknown) (unknown) week but they are (units (unknown) date) not lasting unknown) multiple days and not as intense. She is using an (unknown) (no (unknown) (unknown) weeks with repeat (units (unknown) date) ultrasound to unknown) check fluid. Warning signs reviewed. (unknown) (no (unknown) (unknown) weight gain, Fish (units (unknown) date) and mercury unknown) intake, Caffeine use, Exercise and activity, (unknown) (no (unknown) (unknown) well-balanced (units ( unknown) date) diet: daily or unknown) most days (unknown) (no (unknown) (unknown) with 11 weeks 3 (units (unknown) date) days. Left ovary unknown) is normal. Plan: Cell free DNA ordered. (unknown) (no (unknown) (unknown) with a fetus with (units (unknown) date) a crown-rump unknown) length measuring 4.63 cm. This is consistent (unknown) (no (unknown) (unknown) work/environmenta (units (unknown) date) l/hazards, Sexual unknown) activity, X-ray exposure, Medication use, (unknown) (no (unknown) (unknown) working smoke (units ( unknown) date) detector in home: unknown) Yes Result panel 160 (unknown) (no (unknown) (unknown) (no value) (units (unk nown) date) unknown) (unknown) (no (unknown) (unknown) 'syndrome';) (units (u nknown) date) unknown) (unknown) (no (unknown) (unknown) (+11 lb) 112/62 N (units (unknown) date) unknown) (unknown) (no (unknown) (unknown) (+13 lb) 118/68 N (units (unknown) date) unknown) (unknown) (no (unknown) (unknown) (+21 lb 7 oz) (units ( unknown) date) 98/68 N unknown) (unknown) (no (unknown) (unknown) (+27 lb) 110/70 N (units (unknown) date) unknown) (unknown) (no (unknown) (unknown) (+30 lb) 126/66 N (units (unknown) date) unknown) (unknown) (no (unknown) (unknown) (+34 lb) 104/68 (units (unknown) date) unknown) (unknown) (no (unknown) (unknown) (+6 lb) 108/68 N (units (unknown) date) unknown) (unknown) (no (unknown) (unknown) Genetic (units (unkn own) date) Screening/Teratolo unknown) gy Counseling - Includes patient, baby's father, or (unknown) (no (unknown) (unknown) -?-?-?-?-?-?-?-?- (units (unknown) date) ?-?-?-? unknown) (unknown) (no (unknown) (unknown) 01/24/14 41 17 7 (units (unknown) date) lb 1 oz Female unknown) live - full t (unknown) (no (unknown) (unknown) 02/19/21 39 7 lb (units (unknown) date) 12 oz Female live unknown) - full term (unknown) (no (unknown) (unknown) 05/13/22 (units (unkno wn) date) unknown) (unknown) (no (unknown) (unknown) 06/09/22 (units (unkno wn) date) unknown) (unknown) (no (unknown) (unknown) 06/16/15 38 7 lb (units (unknown) date) 13 oz Male unknown) live - full (unknown) (no (unknown) (unknown) 07/12/22 (units (unkno wn) date) unknown) (unknown) (no (unknown) (unknown) 08/15/22 (units (unkno wn) date) unknown) (unknown) (no (unknown) (unknown) 09/13/22 (units (unkno wn) date) unknown) (unknown) (no (unknown) (unknown) 10/04/22 (units (unkno wn) date) unknown) (unknown) (no (unknown) (unknown) 10/18/21 8 (units (unk nown) date) spontaneous unknown) (unknown) (no (unknown) (unknown) 10/18/22 (units (unkno wn) date) unknown) (unknown) (no (unknown) (unknown) 10/18/22] (units (unkn own) date) unknown) (unknown) (no (unknown) (unknown) 11w 2d 261 lb (units ( unknown) date) unknown) (unknown) (no (unknown) (unknown) 11w3d 4 wks (units (un known) date) unknown) (unknown) (no (unknown) (unknown) 13:20 (units (unkno wn) date) unknown) (unknown) (no (unknown) (unknown) 15w 1d 266 lb (units ( unknown) date) unknown) (unknown) (no (unknown) (unknown) 19w 6d 268 lb (units ( unknown) date) unknown) (unknown) (no (unknown) (unknown) 2 lb 15 oz. (units (un known) date) 55%ile. Placenta unknown) grade 0 and anterior. Normal amniotic fluid (unknown) (no (unknown) (unknown) 2 wks (units (unkno wn) date) unknown) (unknown) (no (unknown) (unknown) 20.14 cm. Grade 0 (units (unknown) date) placenta. Plan: unknown) Follow-up in 2 weeks. Warning signs (unknown) (no (unknown) (unknown) 24w 5d 276 lb 7 (units (unknown) date) oz unknown) (unknown) (no (unknown) (unknown) 28w 6d 282 lb (units ( unknown) date) unknown) (unknown) (no (unknown) (unknown) 3 wks (units (unkno wn) date) unknown) (unknown) (no (unknown) (unknown) 31 weeks (units (unkno wn) date) gestation. Good unknown) movement. No leakage of fluid or vaginal (unknown) (no (unknown) (unknown) 31w 6d 285 lb (units ( unknown) date) unknown) (unknown) (no (unknown) (unknown) 33w 6d 289 lb (units ( unknown) date) unknown) (unknown) (no (unknown) (unknown) 5 wks (units (unkno wn) date) unknown) (unknown) (no (unknown) (unknown) ADHD (units (unkno wn) date) unknown) (unknown) (no (unknown) (unknown) Abnormal lab (units (u nknown) date) values 1st unknown) trimester: discussed (unknown) (no (unknown) (unknown) Add'l Plan (units (unk nown) date) Details unknown) (unknown) (no (unknown) (unknown) Additional (units (unk nown) date) Details:: 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 (unknown) (no (unknown) (unknown) Additional Social (units (unknown) date) History unknown) (unknown) (no (unknown) (unknown) Age/Sex: 32 / F (units (unknown) date) Date of Service: unknown) (unknown) (no (unknown) (unknown) Alcoholism (units (unk nown) date) unknown) (unknown) (no (unknown) (unknown) Allergies (units (unkn own) date) unknown) (unknown) (no (unknown) (unknown) [place] (units ( unknown) date) [id number] unknown) (unknown) (no (unknown) (unknown) Anaphylaxis (units (un known) date) unknown) (unknown) (no (unknown) (unknown) Anesthesia (units (unk nown) date) unknown) (unknown) (no (unknown) (unknown) Aneuploidy (units (unk nown) date) Screening Offered: unknown) Accepted (Would like CFDNA if qualified) (unknown) (no (unknown) (unknown) Anticipated (units (un known) date) course of unknown) care: discussed (unknown) (no (unknown) (unknown) Assessment and (units (unknown) date) Plan unknown) (unknown) (no (unknown) (unknown) Attending Dr: (units ( unknown) date) Glen Ojeda MD unknown) (unknown) (no (unknown) (unknown) BMI 49.6 (units (unkno wn) date) unknown) (unknown) (no (unknown) (unknown) BP 104/68 (units (unkn own) date) unknown) (unknown) (no (unknown) (unknown) Yonis 2 months (units (unknown) date) post-dates unknown) induction (unknown) (no (unknown) (unknown) (units (unkno wn) date) Plan/Preferences unknown) (unknown) (no (unknown) (unknown) Planning (units (unknown) date) unknown) (unknown) (no (unknown) (unknown) Blood Pressure (units (unknown) date) Location Lt unknown) brachial (unknown) (no (unknown) (unknown) Blood (units (unkno wn) date) transfusions?: yes unknown) (Never had but would accept ) (unknown) (no (unknown) (unknown) Breastfeed Preg (units (unknown) date) Comp Name unknown) (unknown) (no (unknown) (unknown) 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) unknown) (unknown) (no (unknown) (unknown) Children's (units (unk nown) date) unknown) (unknown) (no (unknown) (unknown) Confirmed (units (unkn own) date) 10/18/22] unknown) (unknown) (no (unknown) (unknown) Current Estimate (units (unknown) date) 11/30/22 LMP unknown) (Certain) 33w 6d (unknown) (no (unknown) (unknown) Current (units (unknown) date) History unknown) (unknown) (no (unknown) (unknown) DNA (units (unkno wn) date) unknown) (unknown) (no (unknown) (unknown) : 1990 (units (unknown) date) Acct:[id number] unknown) (unknown) (no (unknown) (unknown) Date of positive (units (unknown) date) home unknown) test: 03/25/22 (unknown) (no (unknown) (unknown) Date (units (unkno wn) date) unknown) (unknown) (no (unknown) (unknown) Daughter Juvenile (units (unknown) date) arthritis unknown) (unknown) (no (unknown) (unknown) Del. Date (units (unkn own) date) GA/Weeks Labor unknown) Lgth Wt Sex Route Outcome Anesthesia Place (unknown) (no (unknown) (unknown) Delivery Date: (units (unknown) date) 02/19/21 Last unknown) Updated by: Susi Petersen RN (unknown) (no (unknown) (unknown) Delivery Date: (units (unknown) date) 06/16/15 Last unknown) Updated by: Susi Petersen RN (unknown) (no (unknown) (unknown) Delv (units (unkno wn) date) unknown) (unknown) (no (unknown) (unknown) Denies other (units (u nknown) date) unknown) (unknown) (no (unknown) (unknown) Denies over the (units (unknown) date) counter unknown) medications, Denies alcohol, Denies illicit drugs and (unknown) (no (unknown) (unknown) Depression (units (unk nown) date) (-1999) unknown) (unknown) (no (unknown) (unknown) Depression: (units (un known) date) discussed unknown) (unknown) (no (unknown) (unknown) Dept at (units (unkno wn) date) . unknown) (unknown) (no (unknown) (unknown) Diet and Exercise (units (unknown) date) unknown) (unknown) (no (unknown) (unknown) Discussed (units (unkno wn) date) anesthesia, but unknown) encouraged Brittany to discuss this more in depth with (unknown) (no (unknown) (unknown) Documented By: (units (unknown) date) Glen Ojeda MD unknown) 10/18/22 1314 (unknown) (no (unknown) (unknown) Draft (units (unkno wn) date) unknown) (unknown) (no (unknown) (unknown) ECTOR Calculator (units (unknown) date) unknown) (unknown) (no (unknown) (unknown) EGA Weight BP (units ( unknown) date) UGlucose unknown) (unknown) (no (unknown) (unknown) Estimated (units (unkn own) date) Delivery Date unknown) Method Current (unknown) (no (unknown) (unknown) Family History (units (unknown) date) (Updated 06/08/22 unknown) @ 21:23 by Aurora Arevalo) (unknown) (no (unknown) (unknown) Father Diabetes (units (unknown) date) mellitus unknown) (unknown) (no (unknown) (unknown) Father of Baby: (units (unknown) date) same unknown) (unknown) (no (unknown) (unknown) [facility] ([facility] unknown) (unknown) (no (unknown) (unknown) First Trimester (units (unknown) date) Education unknown) Checklist (unknown) (no (unknown) (unknown) Follow-up in 4 (units (unknown) date) weeks. Warning unknown) signs reviewed. kag (unknown) (no (unknown) (unknown) Follow-up in 4 (units (unknown) date) weeks. We will unknown) call with anatomic survey results. (unknown) (no (unknown) (unknown) Foot pain (-2020) (units (unknown) date) unknown) (unknown) (no (unknown) (unknown) (units (unkno wn) date) unknown) (unknown) (no (unknown) (unknown) Garde at her next (units (unknown) date) visit. f/u in 4 unknown) weeks. (unknown) (no (unknown) (unknown) Genetic Screening (units (unknown) date) + Counseling unknown) (unknown) (no (unknown) (unknown) Genetic Screening (units (unknown) date) unknown) (unknown) (no (unknown) (unknown) 5 (units (unkn own) date) Multiple births unknown) (unknown) (no (unknown) (unknown) HIV risk (units (unkno wn) date) evaluation: low unknown) risk (unknown) (no (unknown) (unknown) Health Center (units ( unknown) date) Education unknown) (unknown) (no (unknown) (unknown) Health center (units ( unknown) date) information: unknown) nature of practice discussed, personnel (unknown) (no (unknown) (unknown) Heavy menstrual (units (unknown) date) period (-2020) unknown) (unknown) (no (unknown) (unknown) Height 5 ft 4 in (units (unknown) date) unknown) (unknown) (no (unknown) (unknown) Hepatitis C risk (units (unknown) date) evaluation: low unknown) risk (unknown) (no (unknown) (unknown) History of (units (unk nown) date) Hepatitis B: No unknown) (unknown) (no (unknown) (unknown) History of (units (unk nown) date) Hepatitis C: No unknown) (unknown) (no (unknown) (unknown) History of (units (unk nown) date) surgery unknown) (unknown) (no (unknown) (unknown) Hospital: (units (u nknown) date) unknown) (unknown) (no (unknown) (unknown) [facility]. (units (unknown) date) unknown) (unknown) (no (unknown) (unknown) Hx # (units (u nknown) date) Pregnancies unknown) Elective abortions (unknown) (no (unknown) (unknown) Hx # Term (units (unkn own) date) Pregnancies 3 unknown) Ectopic pregnancies (unknown) (no (unknown) (unknown) Hx severe (units (unkn own) date) polyhydramnios unknown) (unknown) (no (unknown) (unknown) Hypothyroid (units (un known) date) unknown) (unknown) (no (unknown) (unknown) Infant will be (units (unknown) date) adopted?: no unknown) (unknown) (no (unknown) (unknown) Infection History (units (unknown) date) unknown) (unknown) (no (unknown) (unknown) Infectious (units (unk nown) date) Disease Education unknown) (unknown) (no (unknown) (unknown) Infectious (units (unk nown) date) disease exposure: unknown) chicken pox immunity discussed, hepatitis risk (unknown) (no (unknown) (unknown) Initial Weight: (units (unknown) date) 255 lb unknown) (unknown) (no (unknown) (unknown) Initials (units (unkno wn) date) unknown) (unknown) (no (unknown) (unknown) Intake Clinical (units (unknown) date) Staff unknown) (unknown) (no (unknown) (unknown) Intake Note: (units (u nknown) date) unknown) (unknown) (no (unknown) (unknown) Intake performed (units (unknown) date) by: Libby Saravia unknown) (unknown) (no (unknown) (unknown) Intake (units (unkno wn) date) unknown) (unknown) (no (unknown) (unknown) LM (units (unkno wn) date) unknown) (unknown) (no (unknown) (unknown) Brittany presents (units ( unknown) date) today with her 3 unknown) kids for a routine OB visit at 24w5d. She (unknown) (no (unknown) (unknown) Live with someone (units (unknown) date) with TB or exposed unknown) to TB: No (unknown) (no (unknown) (unknown) Loc: [facility] (units (unkno wn) date) unknown) (unknown) (no (unknown) (unknown) [id number] (units (unk nown) date) unknown) (unknown) (no (unknown) (unknown) Marital status: (units (unknown) date) unknown) (unknown) (no (unknown) (unknown) Medical History (units (unknown) date) (Updated 10/04/22 unknown) @ 11:18 by Josefina Baumann MD) (unknown) (no (unknown) (unknown) Medications (units (un known) date) unknown) (unknown) (no (unknown) (unknown) Mental health (units ( unknown) date) problem unknown) (unknown) (no (unknown) (unknown) Migraine (units (unkno wn) date) headaches unknown) (unknown) (no (unknown) (unknown) Mother Depression (units (unknown) date) unknown) (unknown) (no (unknown) (unknown) N No no 146 15 (units (unknown) date) N/A absent 4 wks unknown) (unknown) (no (unknown) (unknown) N No no 168 11 (units (unknown) date) N/A absent unknown) long/closed AGA (unknown) (no (unknown) (unknown) N Yes no 143 32 (units (unknown) date) Breech absent HUNTER unknown) 20.14cm (unknown) (no (unknown) (unknown) Nearsightedness (units (unknown) date) unknown) (unknown) (no (unknown) (unknown) Notes (units (unkno wn) date) unknown) (unknown) (no (unknown) (unknown) Number of Living (units (unknown) date) Children 3 unknown) (unknown) (no (unknown) (unknown) Number of (units (unkn own) date) fetuses:: Single unknown) (unknown) (no (unknown) (unknown) Nutrition and (units ( unknown) date) weight gain unknown) counseling: special diet: discussed (unknown) (no (unknown) (unknown) OB Office Visit (units (unknown) date) unknown) (unknown) (no (unknown) (unknown) OB Visit Log (units (u nknown) date) unknown) (unknown) (no (unknown) (unknown) Obesity (units (unkno wn) date) unknown) (unknown) (no (unknown) (unknown) On control (units (unknown) date) at conception?: No unknown) (unknown) (no (unknown) (unknown) Orders (units (unkno wn) date) unknown) (unknown) (no (unknown) (unknown) Orders: (units (unkno wn) date) unknown) (unknown) (no (unknown) (unknown) PFSH (units (unkno wn) date) unknown) (unknown) (no (unknown) (unknown) PTSD (units (unkno wn) date) (post-traumatic unknown) stress disorder) (-1999) (unknown) (no (unknown) (unknown) Painful menstrual (units (unknown) date) periods () unknown) (unknown) (no (unknown) (unknown) Para 3 (units (unkno wn) date) Spontaneous unknown) abortions 1 (unknown) (no (unknown) (unknown) Partner history (units (unknown) date) of STD: denies hx unknown) (unknown) (no (unknown) (unknown) Partner history (units (unknown) date) of genital herpes: unknown) No (unknown) (no (unknown) (unknown) Partner: [facility] (units (unknown) date) White unknown) (unknown) (no (unknown) (unknown) Past Pregnancies (units (unknown) date) unknown) (unknown) (no (unknown) (unknown) Patient presents (units (unknown) date) accompanied by her unknown) children for routine visit at (unknown) (no (unknown) (unknown) Patient presents (units (unknown) date) for a new OB visit unknown) at 11 weeks gestation. She has had (unknown) (no (unknown) (unknown) Patient presents (units (unknown) date) for a routine unknown) visit at 15 weeks gestation. Cell (unknown) (no (unknown) (unknown) Patient presents (units (unknown) date) for a routine unknown) visit at 19 weeks gestation. She (unknown) (no (unknown) (unknown) Patient presents (units (unknown) date) for a routine unknown) visit at 28 weeks gestation. 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: (units ( unknown) date) Pediatric unknown) [facility] (unknown) (no (unknown) (unknown) Personal history (units (unknown) date) of STD: denies hx unknown) (unknown) (no (unknown) (unknown) Personal history (units (unknown) date) of genital herpes: unknown) No (unknown) (no (unknown) (unknown) Planned repeat (units (unknown) date) C/S, 11/24/22 unknown) (unknown) (no (unknown) (unknown) Polyhydramnios (units (unknown) date) unknown) (unknown) (no (unknown) (unknown) Position Sitting (units (unknown) date) unknown) (unknown) (no (unknown) (unknown) Postive screening (units (unknown) date) CF (In scans) unknown) (unknown) (no (unknown) (unknown) (units (unk nown) date) depression unknown) (unknown) (no (unknown) (unknown) History (units (unknown) date) unknown) (unknown) (no (unknown) (unknown) type:: (units (unknown) date) Other Normal unknown) (unknown) (no (unknown) (unknown) (units (unkno wn) date) Education unknown) (unknown) (no (unknown) (unknown) Initial (units (unknown) date) Assessment unknown) (unknown) (no (unknown) (unknown) Specific (units (unknown) date) Issues/Plans unknown) (unknown) (no (unknown) (unknown) Testing: (units (unknown) date) discussed unknown) (unknown) (no (unknown) (unknown) Visit (units (unknown) date) unknown) (unknown) (no (unknown) (unknown) (units (unkno wn) date) education packet: unknown) symptoms, Vitamins and iron, Diet and (unknown) (no (unknown) (unknown) Previous (units (unknown) date) section unknown) (unknown) (no (unknown) (unknown) Primary Care (units (u nknown) date) Provider: [facility] unknown) Health (unknown) (no (unknown) (unknown) Primary Ob (units (unk nown) date) Provider: unknown) Josefina Baumann (unknown) (no (unknown) (unknown) Prior (units (unkno wn) date) GBS-Infected unknown) child: No (unknown) (no (unknown) (unknown) [place] (units (unk nown) date) [place] 4 unknown) (unknown) (no (unknown) (unknown) Providers (units (unkn own) date) unknown) (unknown) (no (unknown) (unknown) Pt here for OB (units (unknown) date) Check *Pastor pt* unknown) needs to sign her sterilization consent today (unknown) (no (unknown) (unknown) RPR pos, TPA (units (u nknown) date) negative unknown) (unknown) (no (unknown) (unknown) Rash or viral (units ( unknown) date) illness since last unknown) menstrual period: Yes (minor head cold) (unknown) (no (unknown) (unknown) Reason For Visit (units (unknown) date) unknown) (unknown) (no (unknown) (unknown) Recent travel (units ( unknown) date) outside of unknown) country?: No (unknown) (no (unknown) (unknown) Recurrent (units (unkn own) date) loss or unknown) a stillbirth: No (unknown) (no (unknown) (unknown) Reports Other (units ( unknown) date) (Older son unknown) undergoing genetic workup for currently unidentified (unknown) (no (unknown) (unknown) 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 unknown) (unknown) (no (unknown) (unknown) Safety (units (unkno wn) date) unknown) (unknown) (no (unknown) (unknown) Sauna/hot tub (units ( unknown) date) use, Dental care, unknown) Marijuana use, Travel and Influenza vaccine (no (unknown) (no (unknown) (unknown) Signed By: (units (unk nown) date) unknown) (unknown) (no (unknown) (unknown) Smoking Status: (units (unknown) date) Former smoker unknown) (Quit-2020) (unknown) (no (unknown) (unknown) Social History (units (unknown) date) unknown) (unknown) (no (unknown) (unknown) Son Hearing loss (units (unknown) date) unknown) (unknown) (no (unknown) (unknown) Son undergoing (units (unknown) date) workup at unknown) [facility] for possible genetic anomaly (unknown) (no (unknown) (unknown) Support (units (unkno wn) date) Person(s):: [facility] unknown) (unknown) (no (unknown) (unknown) Surgical History (units (unknown) date) (Updated 07/12/22 unknown) @ 15:10 by Josefina Baumann MD) (unknown) (no (unknown) (unknown) Surrogate (units (unkn own) date) ?: no unknown) (unknown) (no (unknown) (unknown) Symptoms since (units (unknown) date) LMP: Reports unknown) amenorrhea, nausea, fatigue, urinary frequency, (unknown) (no (unknown) (unknown) TR Yes no 138 30 (units (unknown) date) Breech absent AGA unknown) 29w2d (unknown) (no (unknown) (unknown) TR Yes no 143 26 (units (unknown) date) N/A absent 4 wks unknown) (unknown) (no (unknown) (unknown) TR Yes no 144 21 (units (unknown) date) N/A absent 4 wks unknown) (unknown) (no (unknown) (unknown) TSH. Discussed (units (unknown) date) TDAP vaccination unknown) nv. She had questions regarding anesthesia (unknown) (no (unknown) (unknown) Tdap, declines (units (unknown) date) flu unknown) (unknown) (no (unknown) (unknown) Teratogen (units (unkn own) date) Exposures since unknown) LMP/Conception: Denies prescription medications, (unknown) (no (unknown) (unknown) Testing Education (units (unknown) date) unknown) (unknown) (no (unknown) (unknown) Testing education (units (unknown) date) completed: group B unknown) strep, Spina bifida testing and Cell Free (unknown) (no (unknown) (unknown) This note may (units ( unknown) date) have been all or unknown) partially generated using voice recognition (unknown) (no (unknown) (unknown) 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 [place] (unknown) (no (unknown) (unknown) Tobacco + (units (unkn own) date) Substance Use unknown) (unknown) (no (unknown) (unknown) Tobacco Status (units (unknown) date) unknown) (unknown) (no (unknown) (unknown) Trimester:: 3rd (units (unknown) date) Trimester unknown) (28wks-Del) (unknown) (no (unknown) (unknown) Type(s) of (units (unk nown) date) exercise: walking unknown) (unknown) (no (unknown) (unknown) UProtein Movement (units (unknown) date) PreLabor FHR Fndl unknown) Ht Pres Edema Cerv Exam US/Comment Next Appt (unknown) (no (unknown) (unknown) US OB limited 1 (units (unknown) date) Week O99.210 - unknown) Obesity complicating , unspecified (unknown) (no (unknown) (unknown) Varicella/chicken (units (unknown) date) pox status: unknown) immunized (unknown) (no (unknown) (unknown) Visit Date: (units (un known) date) 05/13/22 Last unknown) Updated by: Josefina Baumann MD (unknown) (no (unknown) (unknown) Visit Date: (units (un known) date) 06/09/22 Last unknown) Updated by: Josefina Baumann MD (unknown) (no (unknown) (unknown) Visit Date: (units (un known) date) 07/12/22 Last unknown) Updated by: Josefina Baumann MD (unknown) (no (unknown) (unknown) Visit Date: (units (un known) date) 08/15/22 Last unknown) Updated by: Anita Perez P.A-C (unknown) (no (unknown) (unknown) Visit Date: (units (un known) date) 09/13/22 Last unknown) Updated by: Josefina Buamann MD (unknown) (no (unknown) (unknown) Visit Date: (units (un known) date) 10/04/22 Last unknown) Updated by: Josefina Baumann MD (unknown) (no (unknown) (unknown) Visit Reasons: OB (units (unknown) date) Sign consent unknown) (unknown) (no (unknown) (unknown) Vitals (units (unkno wn) date) unknown) (unknown) (no (unknown) (unknown) WG (units (unkno wn) date) unknown) (unknown) (no (unknown) (unknown) Weeks gestation:: (units (unknown) date) 33 unknown) (unknown) (no (unknown) (unknown) Weight 289 lb (units ( unknown) date) unknown) (unknown) (no (unknown) (unknown) [place] teeth (units (u nknown) date) extracted unknown) (unknown) (no (unknown) (unknown) Would like (units (unk nown) date) [facility] unknown[facility] pump at (unknown) (no (unknown) (unknown) Zika virus (units (unk nown) date) exposure: No unknown) (unknown) (no (unknown) (unknown) additional social (units (unknown) date) history: unknown) Difficulty other children. Would (unknown) (no (unknown) (unknown) alcohol intake: (units (unknown) date) former unknown) (unknown) (no (unknown) (unknown) anyone in either (units (unknown) date) family with: unknown) (unknown) (no (unknown) (unknown) attempted, unable (units (unknown) date) other [place] unknown) (unknown) (no (unknown) (unknown) azithromycin 250 (units (unknown) date) mg tablet See Rx unknown) Instructions PO .COMPLEX #6 tabs 10/07/22 [Rx (unknown) (no (unknown) (unknown) because she has (units (unknown) date) had difficult unknown) spinals with all 3 of her deliveries. (unknown) (no (unknown) (unknown) bleeding. No (units (u nknown) date) regular unknown) contractions. On ultrasound: Breech presentation. 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 (units (unkno wn) date) unknown) (unknown) (no (unknown) (unknown) delivery. (units (unkn own) date) unknown) (unknown) (no (unknown) (unknown) described, visit (units (unknown) date) schedule reviewed, unknown) ultrasounds policy reviewed, coverage 24 (unknown) (no (unknown) (unknown) discussed, (units (unk nown) date) tuberculosis unknown) exposure discussed, CMV discussed, Toxoplasmosis (unknown) (no (unknown) (unknown) do you feel safe (units (unknown) date) at home: Yes unknown) (unknown) (no (unknown) (unknown) during the past (units (unknown) date) year weight has: unknown) other (wide fluctuations since last ) (unknown) (no (unknown) (unknown) education level: (units (unknown) date) vocational (some unknown) college, certificate programs) (unknown) (no (unknown) (unknown) erm [place] (units (u nknown) date) unknown) (unknown) (no (unknown) (unknown) f/u limited (units (un known) date) anatomy views at unknown) 28wk visit with Dr. Baumann. Ordered OGTT, CBC and (unknown) (no (unknown) (unknown) failure to (units (unk nown) date) progress [place] unknown) (unknown) (no (unknown) (unknown) felt rare (units (unknown) date) movement. No unknown) leakage of fluid or vaginal bleeding. Plan: (unknown) (no (unknown) (unknown) fetoprotein (units (un known) date) ordered. Warning unknown) signs reviewed. Follow-up in 5 weeks. kag (unknown) (no (unknown) (unknown) fire extinguisher (units (unknown) date) in home: Yes unknown) (unknown) (no (unknown) (unknown) firearms in home: (units (unknown) date) Yes firearms unknown) unloaded and locked: Yes (unknown) (no (unknown) (unknown) flaxseed Allergy (units (unknown) date) (Severe, Verified unknown) 10/18/22 13:20) (unknown) (no (unknown) (unknown) flu or covid (units (u nknown) date) vaccines received) unknown) (unknown) (no (unknown) (unknown) free DNA showed (units (unknown) date) normal female. She unknown) continues to have migraines several days a (unknown) (no (unknown) (unknown) grade breast pump (units (unknown) date) that she can have unknown) when she goes home from hospital after (unknown) (no (unknown) (unknown) had her 20 week (units (unknown) date) ultrasound today. unknown) Those results are not available. She has (unknown) (no (unknown) (unknown) had limited heart (units (unknown) date) and outflow tract unknown) views from her anatomy US. Plan 3D US and (unknown) (no (unknown) (unknown) have occurred. If (units (unknown) date) there are any unknown) questions, please contact the Medical Records (unknown) (no (unknown) (unknown) hours a day and (units (unknown) date) participation of unknown) father in care and office visits (unknown) (no (unknown) (unknown) household members: (units (unknown) date) spouse, family unknown) ([id number] and his 3 children (moving out (unknown) (no (unknown) (unknown) housing: house (units (unknown) date) unknown) (unknown) (no (unknown) (unknown) hydroxyzine HCl (units (unknown) date) 25 mg tablet 25 mg unknown) PO TID PRN anxiety #20 tabs 09/16/22 [Rx (unknown) (no (unknown) (unknown) is still having (units (unknown) date) occasional unknown) headaches. Good movement. No leakage of fluid (unknown) (no (unknown) (unknown) kag (units (unkno wn) date) unknown) (unknown) (no (unknown) (unknown) levothyroxine 137 (units (unknown) date) mcg tablet 137 mcg unknown) PO DAILY #30 tabs 10/17/22 [Rx Confirmed (unknown) (no (unknown) (unknown) lives (units (unkno wn) date) independently: Yes unknown) (unknown) (no (unknown) (unknown) magnesium 200 mg (units (unknown) date) tablet 200 mg PO unknown) DAILY 05/03/22 [History Confirmed 10/18/22] (unknown) (no (unknown) (unknown) marital status: (units (unknown) date) unknown) (unknown) (no (unknown) (unknown) may occur. (units (unk nown) date) Occasional unknown) wrong-word or 'sound-alike' substitutions may have (unknown) (no (unknown) (unknown) medication. No (units (unknown) date) vaginal bleeding. unknown) On ultrasound: Intrauterine gestational sac (unknown) (no (unknown) (unknown) migraines and (units ( unknown) date) these are getting unknown) a little better. She is using the prescribed (unknown) (no (unknown) (unknown) months other Iyla (units (unknown) date) unknown) (unknown) (no (unknown) (unknown) number of (units (unkn own) date) children: 3 unknown) (unknown) (no (unknown) (unknown) occasional 1 (units (u nknown) date) Percocet to treat unknown) these. Plan: 20 week ultrasound ordered. Alpha (unknown) (no (unknown) (unknown) occupational (units (u nknown) date) status: unemployed unknown) and previously employed (unknown) (no (unknown) (unknown) occurred due to (units (unknown) date) the inherent unknown) limitations of voice recognition software. Please (unknown) (no (unknown) (unknown) ondansetron 4 mg (units (unknown) date) disintegrating unknown) tablet 4 mg PO Q6H PRN nausea and vomiting #20 (unknown) (no (unknown) (unknown) or vaginal (units (unk nown) date) bleeding. On unknown) ultrasound: Breech presentation. AGA 29 weeks 2 days. (unknown) (no (unknown) (unknown) oxycodone 5 mg (units (unknown) date) tablet 5 mg PO Q6H unknown) PRN pain #10 tabs 10/12/22 [Rx Confirmed (unknown) (no (unknown) (unknown) pets and animals: (units (unknown) date) Yes (horses) unknown) (unknown) (no (unknown) (unknown) polyhydramnios (units (unknown) date) unknown) (unknown) (no (unknown) (unknown) precautions, (units (u nknown) date) Listeriosis unknown) prevention and Rubella Immunization (unknown) (no (unknown) (unknown) prenat.vits,alexey,m (units (unknown) date) om-[id number] 1 unknown) tab PO DAILY 04/22/22 [History Confirmed (unknown) (no (unknown) (unknown) read the note (units ( unknown) date) carefully and unknown) recognize, using context, where these substitutions (unknown) (no (unknown) (unknown) really like to (units (unknown) date) meet w/ IBCLC unknown) prior to delivery and would like Rx for hospital (unknown) (no (unknown) (unknown) reports good (units (u nknown) date) movement and unknown) denies VB, LOF, contractions and cramping. She (unknown) (no (unknown) (unknown) reviewed. 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 (units (unkn own) date) Although every unknown) effort is made to edit content, fountain brush assembler errors (unknown) (no (unknown) (unknown) soon)) and (units (unk nown) date) children unknown) (unknown) (no (unknown) (unknown) special [place]land (units ( unknown) date) needs: No unknown) (unknown) (no (unknown) (unknown) substance use (units (u nknown) date) type: marijuana unknown) (in the past, not recently and not while ) (unknown) (no (unknown) (unknown) tabs 05/17/22 [Rx (units (unknown) date) Confirmed unknown) 10/18/22] (unknown) (no (unknown) (unknown) term [place] (units ( unknown) date) Yonis unknown) (unknown) (no (unknown) (unknown) trimester, Z87.59 (units (unknown) date) - Personal history unknown) of other complications of , (unknown) (no (unknown) (unknown) volume. The heart (units (unknown) date) and outflow tracts unknown) could not be visualized. Follow-up in 3 (unknown) (no (unknown) (unknown) water heater temp (units (unknown) date) set < 120 deg: Yes unknown) (unknown) (no (unknown) (unknown) week but they are (units (unknown) date) not lasting unknown) multiple days and not as intense. She is using an (unknown) (no (unknown) (unknown) weeks with repeat (units (unknown) date) ultrasound to unknown) check fluid. Warning signs reviewed. (unknown) (no (unknown) (unknown) weight gain, Fish (units (unknown) date) and mercury unknown) intake, Caffeine use, Exercise and activity, (unknown) (no (unknown) (unknown) well-balanced (units ( unknown) date) diet: daily or unknown) most days (unknown) (no (unknown) (unknown) with 11 weeks 3 (units (unknown) date) days. Left ovary unknown) is normal. Plan: Cell free DNA ordered. (unknown) (no (unknown) (unknown) with a fetus with (units (unknown) date) a crown-rump unknown) length measuring 4.63 cm. This is consistent (unknown) (no (unknown) (unknown) work/environmenta (units (unknown) date) l/hazards, Sexual unknown) activity, X-ray exposure, Medication use, (unknown) (no (unknown) (unknown) working smoke (units ( unknown) date) detector in home: unknown) Yes Result panel 161 (unknown) (no (unknown) (unknown) (no value) (units (unk nown) date) unknown) (unknown) (no (unknown) (unknown) 'syndrome';) (units (u nknown) date) unknown) (unknown) (no (unknown) (unknown) (+11 lb) 112/62 N (units (unknown) date) unknown) (unknown) (no (unknown) (unknown) (+13 lb) 118/68 N (units (unknown) date) unknown) (unknown) (no (unknown) (unknown) (+21 lb 7 oz) (units ( unknown) date) 98/68 N unknown) (unknown) (no (unknown) (unknown) (+27 lb) 110/70 N (units (unknown) date) unknown) (unknown) (no (unknown) (unknown) (+30 lb) 126/66 N (units (unknown) date) unknown) (unknown) (no (unknown) (unknown) (+34 lb) 104/68 (units (unknown) date) unknown) (unknown) (no (unknown) (unknown) (+6 lb) 108/68 N (units (unknown) date) unknown) (unknown) (no (unknown) (unknown) (1) History of (units (unknown) date) polyhydramnios: unknown) (unknown) (no (unknown) (unknown) (2) Obesity (units (un known) date) affecting unknown) : (unknown) (no (unknown) (unknown) (3) Advanced (units (u nknown) date) maternal age (AMA) unknown) in : (unknown) (no (unknown) (unknown) (4) Request for (units (unknown) date) sterilization: unknown) (unknown) (no (unknown) (unknown) (5) Previous (units (u nknown) date) section unknown) complicating : (unknown) (no (unknown) (unknown) (6) : (units (unknown) date) unknown) (unknown) (no (unknown) (unknown) Genetic (units (unkn own) date) Screening/Teratolo unknown) gy Counseling - Includes patient, baby's father, or (unknown) (no (unknown) (unknown) -?-?-?-?-?-?-?-?- (units (unknown) date) ?-?-?-? unknown) (unknown) (no (unknown) (unknown) 01/24/14 41 17 7 (units (unknown) date) lb 1 oz Female unknown) live - full t (unknown) (no (unknown) (unknown) 02/19/21 39 7 lb (units (unknown) date) 12 oz Female live unknown) - full term (unknown) (no (unknown) (unknown) 05/13/22 (units (unkno wn) date) unknown) (unknown) (no (unknown) (unknown) 06/09/22 (units (unkno wn) date) unknown) (unknown) (no (unknown) (unknown) 06/16/15 38 7 lb (units (unknown) date) 13 oz Male unknown) live - full (unknown) (no (unknown) (unknown) 07/12/22 (units (unkno wn) date) unknown) (unknown) (no (unknown) (unknown) 08/15/22 (units (unkno wn) date) unknown) (unknown) (no (unknown) (unknown) 09/13/22 (units (unkno wn) date) unknown) (unknown) (no (unknown) (unknown) 10/04/22 (units (unkno wn) date) unknown) (unknown) (no (unknown) (unknown) 10/18/21 8 (units (unk nown) date) spontaneous unknown) (unknown) (no (unknown) (unknown) 10/18/22 1350 (units ( unknown) date) unknown) (unknown) (no (unknown) (unknown) 10/18/22 (units (unkno wn) date) unknown) (unknown) (no (unknown) (unknown) 10/18/22] (units (unkn own) date) unknown) (unknown) (no (unknown) (unknown) 11w 2d 261 lb (units ( unknown) date) unknown) (unknown) (no (unknown) (unknown) 11w3d 4 wks (units (un known) date) unknown) (unknown) (no (unknown) (unknown) 13:20 (units (unkno wn) date) unknown) (unknown) (no (unknown) (unknown) 15w 1d 266 lb (units ( unknown) date) unknown) (unknown) (no (unknown) (unknown) 19w 6d 268 lb (units ( unknown) date) unknown) (unknown) (no (unknown) (unknown) 2 lb 15 oz. (units (un known) date) 55%ile. Placenta unknown) grade 0 and anterior. Normal amniotic fluid (unknown) (no (unknown) (unknown) 2 wees or as (units (u nknown) date) needed. unknown) (unknown) (no (unknown) (unknown) 2 wks (units (unkno wn) date) unknown) (unknown) (no (unknown) (unknown) 20.14 cm. Grade 0 (units (unknown) date) placenta. Plan: unknown) Follow-up in 2 weeks. Warning signs (unknown) (no (unknown) (unknown) 24w 5d 276 lb 7 (units (unknown) date) oz unknown) (unknown) (no (unknown) (unknown) 28w 6d 282 lb (units ( unknown) date) unknown) (unknown) (no (unknown) (unknown) 3 wks (units (unkno wn) date) unknown) (unknown) (no (unknown) (unknown) 31 weeks (units (unkno wn) date) gestation. Good unknown) movement. No leakage of fluid or vaginal (unknown) (no (unknown) (unknown) 31w 6d 285 lb (units ( unknown) date) unknown) (unknown) (no (unknown) (unknown) 33w 6d 289 lb (units ( unknown) date) unknown) (unknown) (no (unknown) (unknown) 5 wks (units (unkno wn) date) unknown) (unknown) (no (unknown) (unknown) ADHD (units (unkno wn) date) unknown) (unknown) (no (unknown) (unknown) Abnormal lab (units (u nknown) date) values 1st unknown) trimester: discussed (unknown) (no (unknown) (unknown) Add'l Plan (units (unk nown) date) Details unknown) (unknown) (no (unknown) (unknown) Additional (units (unk nown) date) Details:: 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 (unknown) (no (unknown) (unknown) Additional Social (units (unknown) date) History unknown) (unknown) (no (unknown) (unknown) Age/Sex: 32 / F (units (unknown) date) Date of Service: unknown) (unknown) (no (unknown) (unknown) Alcoholism (units (unk nown) date) unknown) (unknown) (no (unknown) (unknown) Allergies (units (unkn own) date) unknown) (unknown) (no (unknown) (unknown) [place] (units ( unknown) date) [id number] unknown) (unknown) (no (unknown) (unknown) Anaphylaxis (units (un known) date) unknown) (unknown) (no (unknown) (unknown) Anesthesia (units (unk nown) date) unknown) (unknown) (no (unknown) (unknown) Aneuploidy (units (unk nown) date) Screening Offered: unknown) Accepted (Would like CFDNA if qualified) (unknown) (no (unknown) (unknown) Anticipated (units (un known) date) course of unknown) care: discussed (unknown) (no (unknown) (unknown) Assessment and (units (unknown) date) Plan unknown) (unknown) (no (unknown) (unknown) Attending Dr: (units ( unknown) date) Glen Ojeda MD unknown) (unknown) (no (unknown) (unknown) BMI 49.6 (units (unkno wn) date) unknown) (unknown) (no (unknown) (unknown) BP 104/68 (units (unkn own) date) unknown) (unknown) (no (unknown) (unknown) [place] 2 months (units (unknown) date) post-dates unknown) induction (unknown) (no (unknown) (unknown) (units (unkno wn) date) Plan/Preferences unknown) (unknown) (no (unknown) (unknown) Planning (units (unknown) date) unknown) (unknown) (no (unknown) (unknown) Blood Pressure (units (unknown) date) Location Lt unknown) brachial (unknown) (no (unknown) (unknown) Blood (units (unkno wn) date) transfusions?: yes unknown) (Never had but would accept ) (unknown) (no (unknown) (unknown) Breastfeed Preg (units (unknown) date) Comp Name unknown) (unknown) (no (unknown) (unknown) Carpal tunnel (units ( unknown) date) syndrome (-2017) unknown) (unknown) (no (unknown) (unknown) Children's (units (unk nown) date) unknown) (unknown) (no (unknown) (unknown) Confirmed (units (unkn own) date) 10/18/22] unknown) (unknown) (no (unknown) (unknown) Current Estimate (units (unknown) date) 11/30/22 LMP unknown) (Certain) 33w 6d (unknown) (no (unknown) (unknown) Current (units (unknown) date) History unknown) (unknown) (no (unknown) (unknown) DNA (units (unkno wn) date) unknown) (unknown) (no (unknown) (unknown) : 1990 (units (unknown) date) Acct:[id number] unknown) (unknown) (no (unknown) (unknown) Date of positive (units (unknown) date) home unknown) test: 03/25/22 (unknown) (no (unknown) (unknown) Date (units (unkno wn) date) unknown) (unknown) (no (unknown) (unknown) Daughter Juvenile (units (unknown) date) arthritis unknown) (unknown) (no (unknown) (unknown) Del. Date (units (unkn own) date) GA/Weeks Labor unknown) Lgth Wt Sex Route Outcome Anesthesia Place (unknown) (no (unknown) (unknown) Delivery Date: (units (unknown) date) 02/19/21 Last unknown) Updated by: Susi Petersen RN (unknown) (no (unknown) (unknown) Delivery Date: (units (unknown) date) 06/16/15 Last unknown) Updated by: Susi Petersen RN (unknown) (no (unknown) (unknown) Delv (units (unkno wn) date) unknown) (unknown) (no (unknown) (unknown) Denies other (units (u nknown) date) unknown) (unknown) (no (unknown) (unknown) Denies over the (units (unknown) date) counter unknown) medications, Denies alcohol, Denies illicit drugs and (unknown) (no (unknown) (unknown) Depression (units (unk nown) date) (-1999) unknown) (unknown) (no (unknown) (unknown) Depression: (units (un known) date) discussed unknown) (unknown) (no (unknown) (unknown) Dept at (units (unkno wn) date) . unknown) (unknown) (no (unknown) (unknown) Diet and Exercise (units (unknown) date) unknown) (unknown) (no (unknown) (unknown) Discussed (units (unkno wn) date) anesthesia, but unknown) encouraged Brittany to discuss this more in depth with (unknown) (no (unknown) (unknown) Documented By: (units (unknown) date) Glen Ojeda MD unknown) 10/18/22 1314 (unknown) (no (unknown) (unknown) ECTOR Calculator (units (unknown) date) unknown) (unknown) (no (unknown) (unknown) EGA Weight BP (units ( unknown) date) UGlucose unknown) (unknown) (no (unknown) (unknown) Estimated (units (unkn own) date) Delivery Date unknown) Method Current (unknown) (no (unknown) (unknown) Expected Delivery (units (unknown) date) Route/Plan unknown) (unknown) (no (unknown) (unknown) Family History (units (unknown) date) (Updated 06/08/22 unknown) @ 21:23 by Aurora Arevalo) (unknown) (no (unknown) (unknown) Father Diabetes (units (unknown) date) mellitus unknown) (unknown) (no (unknown) (unknown) Father of Baby: (units (unknown) date) same unknown) (unknown) (no (unknown) (unknown) [facility] ([facility] unknown) (unknown) (no (unknown) (unknown) First Trimester (units (unknown) date) Education unknown) Checklist (unknown) (no (unknown) (unknown) Follow-up in 4 (units (unknown) date) weeks. Warning unknown) signs reviewed. kag (unknown) (no (unknown) (unknown) Follow-up in 4 (units (unknown) date) weeks. We will unknown) call with anatomic survey results. (unknown) (no (unknown) (unknown) Foot pain () (units (unknown) date) unknown) (unknown) (no (unknown) (unknown) (units (unkno wn) date) unknown) (unknown) (no (unknown) (unknown) [place] at her next (units (unknown) date) visit. f/u in 4 unknown) weeks. (unknown) (no (unknown) (unknown) Genetic Screening (units (unknown) date) + Counseling unknown) (unknown) (no (unknown) (unknown) Genetic Screening (units (unknown) date) unknown) (unknown) (no (unknown) (unknown) 5 (units (unkn own) date) Multiple births unknown) (unknown) (no (unknown) (unknown) HIV risk (units (unkno wn) date) evaluation: low unknown) risk (unknown) (no (unknown) (unknown) Health Center (units ( unknown) date) Education unknown) (unknown) (no (unknown) (unknown) Health center (units ( unknown) date) information: unknown) nature of practice discussed, personnel (unknown) (no (unknown) (unknown) Heavy menstrual (units (unknown) date) period () unknown) (unknown) (no (unknown) (unknown) Height 5 ft 4 in (units (unknown) date) unknown) (unknown) (no (unknown) (unknown) Hepatitis C risk (units (unknown) date) evaluation: low unknown) risk (unknown) (no (unknown) (unknown) History of (units (unk nown) date) Hepatitis B: No unknown) (unknown) (no (unknown) (unknown) History of (units (unk nown) date) Hepatitis C: No unknown) (unknown) (no (unknown) (unknown) History of (units (unk nown) date) surgery unknown) (unknown) (no (unknown) (unknown) Hospital: (units (u nknown) date) unknown) (unknown) (no (unknown) (unknown) [facility]. (units (unknown) date) unknown) (unknown) (no (unknown) (unknown) Hx # (units (u nknown) date) Pregnancies unknown) Elective abortions (unknown) (no (unknown) (unknown) Hx # Term (units (unkn own) date) Pregnancies 3 unknown) Ectopic pregnancies (unknown) (no (unknown) (unknown) Hx severe (units (unkn own) date) polyhydramnios unknown) (unknown) (no (unknown) (unknown) Hypothyroid (units (un known) date) unknown) (unknown) (no (unknown) (unknown) Infant will be (units (unknown) date) adopted?: no unknown) (unknown) (no (unknown) (unknown) Infection History (units (unknown) date) unknown) (unknown) (no (unknown) (unknown) Infectious (units (unk nown) date) Disease Education unknown) (unknown) (no (unknown) (unknown) Infectious (units (unk nown) date) disease exposure: unknown) chicken pox immunity discussed, hepatitis risk (unknown) (no (unknown) (unknown) Initial Weight: (units (unknown) date) 255 lb unknown) (unknown) (no (unknown) (unknown) Initials (units (unkno wn) date) unknown) (unknown) (no (unknown) (unknown) Intake Clinical (units (unknown) date) Staff unknown) (unknown) (no (unknown) (unknown) Intake Note: (units (u nknown) date) unknown) (unknown) (no (unknown) (unknown) Intake performed (units (unknown) date) by: Libby Saravia unknown) (unknown) (no (unknown) (unknown) Intake (units (unkno wn) date) unknown) (unknown) (no (unknown) (unknown) LM (units (unkno wn) date) unknown) (unknown) (no (unknown) (unknown) Brittany and her (units (u nknown) date) children present unknown) for her SHERMAN visit now at 33+ 6 weeks (unknown) (no (unknown) (unknown) Brittany presents (units ( unknown) date) today with her 3 unknown) kids for a routine OB visit at 24w5d. She (unknown) (no (unknown) (unknown) Live with someone (units (unknown) date) with TB or exposed unknown) to TB: No (unknown) (no (unknown) (unknown) Loc: [facility] (units (unkno wn) date) unknown) (unknown) (no (unknown) (unknown) [id number] (units (unk nown) date) unknown) (unknown) (no (unknown) (unknown) Marital status: (units (unknown) date) unknown) (unknown) (no (unknown) (unknown) Medical History (units (unknown) date) (Updated 10/18/22 unknown) @ 13:49 by Glen Ojeda MD) (unknown) (no (unknown) (unknown) Medications (units (un known) date) unknown) (unknown) (no (unknown) (unknown) Mental health (units ( unknown) date) problem unknown) (unknown) (no (unknown) (unknown) Migraine (units (unkno wn) date) headaches unknown) (unknown) (no (unknown) (unknown) Mother Depression (units (unknown) date) unknown) (unknown) (no (unknown) (unknown) N No no 146 15 (units (unknown) date) N/A absent 4 wks unknown) (unknown) (no (unknown) (unknown) N No no 168 11 (units (unknown) date) N/A absent unknown) long/closed AGA (unknown) (no (unknown) (unknown) N Yes no 143 32 (units (unknown) date) Breech absent HUNTER unknown) 20.14cm (unknown) (no (unknown) (unknown) Nearsightedness (units (unknown) date) unknown) (unknown) (no (unknown) (unknown) Notes (units (unkno wn) date) unknown) (unknown) (no (unknown) (unknown) Number of Living (units (unknown) date) Children 3 unknown) (unknown) (no (unknown) (unknown) Number of (units (unkn own) date) fetuses:: Single unknown) (unknown) (no (unknown) (unknown) Nutrition and (units ( unknown) date) weight gain unknown) counseling: special diet: discussed (unknown) (no (unknown) (unknown) OB Office Visit (units (unknown) date) unknown) (unknown) (no (unknown) (unknown) OB Visit Log (units (u nknown) date) unknown) (unknown) (no (unknown) (unknown) Obesity (units (unkno wn) date) unknown) (unknown) (no (unknown) (unknown) On control (units (unknown) date) at conception?: No unknown) (unknown) (no (unknown) (unknown) Orders (units (unkno wn) date) unknown) (unknown) (no (unknown) (unknown) Orders: (units (unkno wn) date) unknown) (unknown) (no (unknown) (unknown) PFSH (units (unkno wn) date) unknown) (unknown) (no (unknown) (unknown) PTSD (units (unkno wn) date) (post-traumatic unknown) stress disorder) (-1999) (unknown) (no (unknown) (unknown) Painful menstrual (units (unknown) date) periods () unknown) (unknown) (no (unknown) (unknown) Para 3 (units (unkno wn) date) Spontaneous unknown) abortions 1 (unknown) (no (unknown) (unknown) Partner history (units (unknown) date) of STD: denies hx unknown) (unknown) (no (unknown) (unknown) Partner history (units (unknown) date) of genital herpes: unknown) No (unknown) (no (unknown) (unknown) Partner: [facility] (units (unknown) date) [place] unknown) (unknown) (no (unknown) (unknown) Past Pregnancies (units (unknown) date) unknown) (unknown) (no (unknown) (unknown) Patient presents (units (unknown) date) accompanied by her unknown) children for routine visit at (unknown) (no (unknown) (unknown) Patient presents (units (unknown) date) for a new OB visit unknown) at 11 weeks gestation. She has had (unknown) (no (unknown) (unknown) Patient presents (units (unknown) date) for a routine unknown) visit at 15 weeks gestation. Cell (unknown) (no (unknown) (unknown) Patient presents (units (unknown) date) for a routine unknown) visit at 19 weeks gestation. She (unknown) (no (unknown) (unknown) Patient presents (units (unknown) date) for a routine unknown) visit at 28 weeks gestation. 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: (units ( unknown) date) Pediatric unknown) [facility] (unknown) (no (unknown) (unknown) Personal history (units (unknown) date) of STD: denies hx unknown) (unknown) (no (unknown) (unknown) Personal history (units (unknown) date) of genital herpes: unknown) No (unknown) (no (unknown) (unknown) Planned repeat (units (unknown) date) C/S, 11/24/22 unknown) (unknown) (no (unknown) (unknown) Polyhydramnios (units (unknown) date) unknown) (unknown) (no (unknown) (unknown) Position Sitting (units (unknown) date) unknown) (unknown) (no (unknown) (unknown) Postive screening (units (unknown) date) CF (In scans) unknown) (unknown) (no (unknown) (unknown) (units (unk nown) date) depression unknown) (unknown) (no (unknown) (unknown) History (units (unknown) date) unknown) (unknown) (no (unknown) (unknown) type:: (units (unknown) date) Other Normal unknown) (unknown) (no (unknown) (unknown) (units (unkno wn) date) Education unknown) (unknown) (no (unknown) (unknown) Initial (units (unknown) date) Assessment unknown) (unknown) (no (unknown) (unknown) Specific (units (unknown) date) Issues/Plans unknown) (unknown) (no (unknown) (unknown) Testing: (units (unknown) date) discussed unknown) (unknown) (no (unknown) (unknown) Visit (units (unknown) date) unknown) (unknown) (no (unknown) (unknown) (units (unkno wn) date) education packet: unknown) symptoms, Vitamins and iron, Diet and (unknown) (no (unknown) (unknown) Previous (units (unknown) date) section unknown) (unknown) (no (unknown) (unknown) Primary Care (units (u nknown) date) Provider: [facility] unknown) [facility] (unknown) (no (unknown) (unknown) Primary Ob (units (unk nown) date) Provider: unknown) Josefina Baumann (unknown) (no (unknown) (unknown) Prior (units (unkno wn) date) GBS-Infected unknown) child: No (unknown) (no (unknown) (unknown) [place] (units (unk nown) date) [place] 4 unknown) (unknown) (no (unknown) (unknown) Providers (units (unkn own) date) unknown) (unknown) (no (unknown) (unknown) Pt here for OB (units (unknown) date) Check *Pastor pt* unknown) needs to sign her sterilization consent today (unknown) (no (unknown) (unknown) Qualifiers: (units (un known) date) unknown) (unknown) (no (unknown) (unknown) RPR pos, TPA (units (u nknown) date) negative unknown) (unknown) (no (unknown) (unknown) Rash or viral (units ( unknown) date) illness since last unknown) menstrual period: Yes (minor head cold) (unknown) (no (unknown) (unknown) Reason For Visit (units (unknown) date) unknown) (unknown) (no (unknown) (unknown) Recent travel (units ( unknown) date) outside of unknown) country?: No (unknown) (no (unknown) (unknown) Recurrent (units (unkn own) date) loss or unknown) a stillbirth: No (unknown) (no (unknown) (unknown) Repeat (units (unknown) date) section with unknown) bilateral salpingectomy (unknown) (no (unknown) (unknown) Reports Other (units ( unknown) date) (Older son unknown) undergoing genetic workup for currently unidentified (unknown) (no (unknown) (unknown) 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 unknown) (unknown) (no (unknown) (unknown) Safety (units (unkno wn) date) unknown) (unknown) (no (unknown) (unknown) Sauna/hot tub (units ( unknown) date) use, Dental care, unknown) Marijuana use, Travel and Influenza vaccine (no (unknown) (no (unknown) (unknown) Signed By: (units (unk nown) date) <Electronically unknown) signed by Glen Ojeda MD> (unknown) (no (unknown) (unknown) Signed (units (unkno wn) date) unknown) (unknown) (no (unknown) (unknown) Smoking Status: (units (unknown) date) Former smoker unknown) (Quit-2020) (unknown) (no (unknown) (unknown) Social History (units (unknown) date) unknown) (unknown) (no (unknown) (unknown) Son Hearing loss (units (unknown) date) unknown) (unknown) (no (unknown) (unknown) Son undergoing (units (unknown) date) [facility] (unknown) (no (unknown) (unknown) Status: Acute (units ( unknown) date) unknown) (unknown) (no (unknown) (unknown) Support (units (unkno wn) date) Person(s):: Adriano unknown) (unknown) (no (unknown) (unknown) Surgical History (units (unknown) date) (Updated 07/12/22 unknown) @ 15:10 by Josefina Baumann MD) (unknown) (no (unknown) (unknown) Surrogate (units (unkn own) date) ?: no unknown) (unknown) (no (unknown) (unknown) Symptoms since (units (unknown) date) LMP: Reports unknown) amenorrhea, nausea, fatigue, urinary frequency, (unknown) (no (unknown) (unknown) TR Yes no 138 30 (units (unknown) date) Breech absent AGA unknown) 29w2d (unknown) (no (unknown) (unknown) TR Yes no 143 26 (units (unknown) date) N/A absent 4 wks unknown) (unknown) (no (unknown) (unknown) TR Yes no 144 21 (units (unknown) date) N/A absent 4 wks unknown) (unknown) (no (unknown) (unknown) TSH. Discussed (units (unknown) date) TDAP vaccination unknown) nv. She had questions regarding anesthesia (unknown) (no (unknown) (unknown) Tdap, declines (units (unknown) date) flu unknown) (unknown) (no (unknown) (unknown) Teratogen (units (unkn own) date) Exposures since unknown) LMP/Conception: Denies prescription medications, (unknown) (no (unknown) (unknown) Testing Education (units (unknown) date) unknown) (unknown) (no (unknown) (unknown) Testing education (units (unknown) date) completed: group B unknown) strep, Spina bifida testing and Cell Free (unknown) (no (unknown) (unknown) This note may (units ( unknown) date) have been all or unknown) partially generated using voice recognition (unknown) (no (unknown) (unknown) 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 [facility] (unknown) (no (unknown) (unknown) Tobacco + (units (unkn own) date) Substance Use unknown) (unknown) (no (unknown) (unknown) Tobacco Status (units (unknown) date) unknown) (unknown) (no (unknown) (unknown) Trimester: third (units (unknown) date) trimester unknown) Qualified Code(s): O99.213 - Obesity (unknown) (no (unknown) (unknown) Trimester:: 3rd (units (unknown) date) Trimester unknown) (28wks-Del) (unknown) (no (unknown) (unknown) Type(s) of (units (unk nown) date) exercise: walking unknown) (unknown) (no (unknown) (unknown) UProtein Movement (units (unknown) date) PreLabor FHR Fndl unknown) Ht Pres Edema Cerv Exam US/Comment Next Appt (unknown) (no (unknown) (unknown) US OB limited 1 (units (unknown) date) Week O99.210 - unknown) Obesity complicating , unspecified (unknown) (no (unknown) (unknown) Varicella/chicken (units (unknown) date) pox status: unknown) immunized (unknown) (no (unknown) (unknown) Visit Date: (units (un known) date) 05/13/22 Last unknown) Updated by: Josefina Baumann MD (unknown) (no (unknown) (unknown) Visit Date: (units (un known) date) 06/09/22 Last unknown) Updated by: Josefina Baumann MD (unknown) (no (unknown) (unknown) Visit Date: (units (un known) date) 07/12/22 Last unknown) Updated by: Josefina Baumann MD (unknown) (no (unknown) (unknown) Visit Date: (units (un known) date) 08/15/22 Last unknown) Updated by: Anita Perez P.A-C (unknown) (no (unknown) (unknown) Visit Date: (units (un known) date) 09/13/22 Last unknown) Updated by: Josefina Baumann MD (unknown) (no (unknown) (unknown) Visit Date: (units (un known) date) 10/04/22 Last unknown) Updated by: Josefina Baumann MD (unknown) (no (unknown) (unknown) Visit Date: (units (un known) date) 10/18/22 Last unknown) Updated by: Glen Ojeda MD (unknown) (no (unknown) (unknown) Visit Reasons: OB (units (unknown) date) Sign consent unknown) (unknown) (no (unknown) (unknown) Vitals (units (unkno wn) date) unknown) (unknown) (no (unknown) (unknown) WG (units (unkno wn) date) unknown) (unknown) (no (unknown) (unknown) Weeks gestation:: (units (unknown) date) 33 unknown) (unknown) (no (unknown) (unknown) Weeks of (units (unkno wn) date) gestation: 33 unknown) weeks Qualified Code(s): Z3A.33 - 33 weeks (unknown) (no (unknown) (unknown) Weight 289 lb (units ( unknown) date) unknown) (unknown) (no (unknown) (unknown) [place] teeth (units (u nknown) date) extracted unknown) (unknown) (no (unknown) (unknown) Would like (units (unk nown) date) referral unknown) to IBCLC and wants hospital grade breast pump at (unknown) (no (unknown) (unknown) Yes no 148 36 (units ( unknown) date) Vertex absent HUNTER unknown) 23.99 cm (unknown) (no (unknown) (unknown) Zika virus (units (unk nown) date) exposure: No unknown) (unknown) (no (unknown) (unknown) additional social (units (unknown) date) history: unknown) Difficulty other children. Would (unknown) (no (unknown) (unknown) alcohol intake: (units (unknown) date) former unknown) (unknown) (no (unknown) (unknown) anyone in either (units (unknown) date) family with: unknown) (unknown) (no (unknown) (unknown) attempted, unable (units (unknown) date) other Lavelle unknown) (unknown) (no (unknown) (unknown) ay occur. (units (unkn own) date) Occasional unknown) wrong-word or 'sound-alike' substitutions may have (unknown) (no (unknown) (unknown) azithromycin 250 (units (unknown) date) mg tablet See Rx unknown) Instructions PO .COMPLEX #6 tabs 10/07/22 [Rx (unknown) (no (unknown) (unknown) because she has (units (unknown) date) had difficult unknown) spinals with all 3 of her deliveries. (unknown) (no (unknown) (unknown) bleeding. No (units (u nknown) date) regular unknown) contractions. On ultrasound: Breech presentation. HUNTER (unknown) (no (unknown) (unknown) bloating and (units (u nknown) date) other (migraine) unknown) (unknown) (no (unknown) (unknown) caffeine: Yes (units ( unknown) date) (soft drinks in unknown) small quantities, well within 200mg limit) (unknown) (no (unknown) (unknown) carbon monox (units (u nknown) date) detector in home: unknown) Yes (unknown) (no (unknown) (unknown) cfDNA, normal (units ( unknown) date) female unknown) (unknown) (no (unknown) (unknown) childbirth and (units (unknown) date) the puerperium unknown) (unknown) (no (unknown) (unknown) complicating (units (u nknown) date) , third unknown) trimester (unknown) (no (unknown) (unknown) conditions, 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 (units (unkno wn) date) unknown) (unknown) (no (unknown) (unknown) delivery. (units (unkn own) date) unknown) (unknown) (no (unknown) (unknown) described, visit (units (unknown) date) schedule reviewed, unknown) ultrasounds policy reviewed, coverage 24 (unknown) (no (unknown) (unknown) discussed, (units (unk nown) date) tuberculosis unknown) exposure discussed, CMV discussed, Toxoplasmosis (unknown) (no (unknown) (unknown) do you feel safe (units (unknown) date) at home: Yes unknown) (unknown) (no (unknown) (unknown) during the past (units (unknown) date) year weight has: unknown) other (wide fluctuations since last ) (unknown) (no (unknown) (unknown) education level: (units (unknown) date) vocational (some unknown) college, certificate programs) (unknown) (no (unknown) (unknown) erm [place] (units (u nknown) date) unknown) (unknown) (no (unknown) (unknown) executed today. (units (unknown) date) Labor precautions unknown) reviewed and follow-up SHERMAN w/ HUNTER will be in (unknown) (no (unknown) (unknown) f/u limited (units (un known) date) anatomy views at unknown) 28wk visit with Dr. Baumann. Ordered OGTT, CBC and (unknown) (no (unknown) (unknown) failure to (units (unk nown) date) progress Rosey unknown) (unknown) (no (unknown) (unknown) felt rare (units (unknown) date) movement. No unknown) leakage of fluid or vaginal bleeding. Plan: (unknown) (no (unknown) (unknown) fetoprotein (units (un known) date) ordered. Warning unknown) signs reviewed. Follow-up in 5 weeks. kag (unknown) (no (unknown) (unknown) fire extinguisher (units (unknown) date) in home: Yes unknown) (unknown) (no (unknown) (unknown) firearms in home: (units (unknown) date) Yes firearms unknown) unloaded and locked: Yes (unknown) (no (unknown) (unknown) flaxseed Allergy (units (unknown) date) (Severe, Verified unknown) 10/18/22 13:20) (unknown) (no (unknown) (unknown) flu or covid (units (u nknown) date) vaccines received) unknown) (unknown) (no (unknown) (unknown) free DNA showed (units (unknown) date) normal female. She unknown) continues to have migraines several days a (unknown) (no (unknown) (unknown) from 2 weeks ago (units (unknown) date) and slightly above unknown) the normal range for this EGA. HHS form 687 (unknown) (no (unknown) (unknown) gestation of (units (u nknown) date) unknown) (unknown) (no (unknown) (unknown) gestational age. (units (unknown) date) She is having a unknown) few Eriberto Weinstein contractions but denies (unknown) (no (unknown) (unknown) grade breast pump (units (unknown) date) that she can have unknown) when she goes home from hospital after (unknown) (no (unknown) (unknown) had her 20 week (units (unknown) date) ultrasound today. unknown) Those results are not available. She has (unknown) (no (unknown) (unknown) had limited heart (units (unknown) date) and outflow tract unknown) views from her anatomy US. Plan 3D US and (unknown) (no (unknown) (unknown) have occurred. If (units (unknown) date) there are any unknown) questions, please contact the Medical Records (unknown) (no (unknown) (unknown) hours a day and (units (unknown) date) participation of unknown) father in care and office visits (unknown) (no (unknown) (unknown) household members: (units (unknown) date) spouse, family unknown) ([id number] and his 3 children (moving out (unknown) (no (unknown) (unknown) housing: house (units (unknown) date) unknown) (unknown) (no (unknown) (unknown) hydroxyzine HCl (units (unknown) date) 25 mg tablet 25 mg unknown) PO TID PRN anxiety #20 tabs 09/16/22 [Rx (unknown) (no (unknown) (unknown) in discharge. Her (units (unknown) date) baby remains unknown) active however. HUNTER today is slightly increased (unknown) (no (unknown) (unknown) is still having (units (unknown) date) occasional unknown) headaches. Good movement. No leakage of fluid (unknown) (no (unknown) (unknown) jw (units (unkno wn) date) unknown) (unknown) (no (unknown) (unknown) kag (units (unkno wn) date) unknown) (unknown) (no (unknown) (unknown) levothyroxine 137 (units (unknown) date) mcg tablet 137 mcg unknown) PO DAILY #30 tabs 10/17/22 [Rx Confirmed (unknown) (no (unknown) (unknown) lives (units (unkno wn) date) independently: Yes unknown) (unknown) (no (unknown) (unknown) magnesium 200 mg (units (unknown) date) tablet 200 mg PO unknown) DAILY 05/03/22 [History Confirmed 10/18/22] (unknown) (no (unknown) (unknown) marital status: (units (unknown) date) unknown) (unknown) (no (unknown) (unknown) medication. No (units (unknown) date) vaginal bleeding. unknown) On ultrasound: Intrauterine gestational sac (unknown) (no (unknown) (unknown) migraines and (units ( unknown) date) these are getting unknown) a little better. She is using the prescribed (unknown) (no (unknown) (unknown) months other Iyla (units (unknown) date) unknown) (unknown) (no (unknown) (unknown) number of (units (unkn own) date) children: 3 unknown) (unknown) (no (unknown) (unknown) occasional 1 (units (u nknown) date) Percocet to treat unknown) these. Plan: 20 week ultrasound ordered. Alpha (unknown) (no (unknown) (unknown) occupational (units (u nknown) date) status: unemployed unknown) and previously employed (unknown) (no (unknown) (unknown) occurred due to (units (unknown) date) the inherent unknown) limitations of voice recognition software. Please (unknown) (no (unknown) (unknown) ondansetron 4 mg (units (unknown) date) disintegrating unknown) tablet 4 mg PO Q6H PRN nausea and vomiting #20 (unknown) (no (unknown) (unknown) or vaginal (units (unk nown) date) bleeding. On unknown) ultrasound: Breech presentation. AGA 29 weeks 2 days. (unknown) (no (unknown) (unknown) oxycodone 5 mg (units (unknown) date) tablet 5 mg PO Q6H unknown) PRN pain #10 tabs 10/12/22 [Rx Confirmed (unknown) (no (unknown) (unknown) pets and animals: (units (unknown) date) Yes (horses) unknown) (unknown) (no (unknown) (unknown) polyhydramnios (units (unknown) date) unknown) (unknown) (no (unknown) (unknown) precautions, (units (u nknown) date) Listeriosis unknown) prevention and Rubella Immunization (unknown) (no (unknown) (unknown) prenat.vits,alexey,m (units (unknown) date) [id number] 1 unknown) tab PO DAILY 04/22/22 [History Confirmed (unknown) (no (unknown) (unknown) read the note (units ( unknown) date) carefully and unknown) recognize, using context, where these substitutions (unknown) (no (unknown) (unknown) really like to (units (unknown) date) meet w/ IBCLC unknown) prior to delivery and would like Rx for hospital (unknown) (no (unknown) (unknown) regular uterine (units (unknown) date) contractions, unknown) bleeding, leakage of fluid per vagina, or change (unknown) (no (unknown) (unknown) reports good (units (u nknown) date) movement and unknown) denies VB, LOF, contractions and cramping. She (unknown) (no (unknown) (unknown) reviewed. 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 (units (unkn own) date) Although every unknown) effort is made to edit content, fountain brush assembler errors m (unknown) (no (unknown) (unknown) soon)) and (units (unk nown) date) children unknown) (unknown) (no (unknown) (unknown) special roland (units ( unknown) date) needs: No unknown) (unknown) (no (unknown) (unknown) substance use (units (u nknown) date) type: marijuana unknown) (in the past, not recently and not while ) (unknown) (no (unknown) (unknown) tabs 05/17/22 [Rx (units (unknown) date) Confirmed unknown) 10/18/22] (unknown) (no (unknown) (unknown) term [place] (units ( unknown) date) Yonis unknown) (unknown) (no (unknown) (unknown) trimester, Z87.59 (units (unknown) date) - Personal history unknown) of other complications of , (unknown) (no (unknown) (unknown) volume. The heart (units (unknown) date) and outflow tracts unknown) could not be visualized. Follow-up in 3 (unknown) (no (unknown) (unknown) water heater temp (units (unknown) date) set < 120 deg: Yes unknown) (unknown) (no (unknown) (unknown) week but they are (units (unknown) date) not lasting unknown) multiple days and not as intense. She is using an (unknown) (no (unknown) (unknown) weeks with repeat (units (unknown) date) ultrasound to unknown) check fluid. Warning signs reviewed. (unknown) (no (unknown) (unknown) weight gain, Fish (units (unknown) date) and mercury unknown) intake, Caffeine use, Exercise and activity, (unknown) (no (unknown) (unknown) well-balanced (units ( unknown) date) diet: daily or unknown) most days (unknown) (no (unknown) (unknown) with 11 weeks 3 (units (unknown) date) days. Left ovary unknown) is normal. Plan: Cell free DNA ordered. (unknown) (no (unknown) (unknown) with a fetus with (units (unknown) date) a crown-rump unknown) length measuring 4.63 cm. This is consistent (unknown) (no (unknown) (unknown) work/environmenta (units (unknown) date) l/hazards, Sexual unknown) activity, X-ray exposure, Medication use, (unknown) (no (unknown) (unknown) working smoke (units ( unknown) date) detector in home: unknown) Yes Result panel 162 (unknown) (no (unknown) (unknown) (no value) (units (unk nown) date) unknown) (unknown) (no (unknown) (unknown) 'syndrome';) (units (u nknown) date) unknown) (unknown) (no (unknown) (unknown) (+11 lb) 112/62 N (units (unknown) date) unknown) (unknown) (no (unknown) (unknown) (+13 lb) 118/68 N (units (unknown) date) unknown) (unknown) (no (unknown) (unknown) (+21 lb 7 oz) (units ( unknown) date) 98/68 N unknown) (unknown) (no (unknown) (unknown) (+27 lb) 110/70 N (units (unknown) date) unknown) (unknown) (no (unknown) (unknown) (+30 lb) 126/66 N (units (unknown) date) unknown) (unknown) (no (unknown) (unknown) (+34 lb) 104/68 N (units (unknown) date) unknown) (unknown) (no (unknown) (unknown) (+6 lb) 108/68 N (units (unknown) date) unknown) (unknown) (no (unknown) (unknown) Genetic (units (unkn own) date) Screening/Teratolo unknown) gy Counseling - Includes patient, baby's father, or (unknown) (no (unknown) (unknown) -?-?-?-?-?-?-?-?- (units (unknown) date) ?-?-?-? unknown) (unknown) (no (unknown) (unknown) 01/24/14 41 17 7 (units (unknown) date) lb 1 oz Female unknown) live - full t (unknown) (no (unknown) (unknown) 02/19/21 39 7 lb (units (unknown) date) 12 oz Female live unknown) - full term (unknown) (no (unknown) (unknown) 05/13/22 (units (unkno wn) date) unknown) (unknown) (no (unknown) (unknown) 06/09/22 (units (unkno wn) date) unknown) (unknown) (no (unknown) (unknown) 06/16/15 38 7 lb (units (unknown) date) 13 oz Male unknown) live - full (unknown) (no (unknown) (unknown) 07/12/22 (units (unkno wn) date) unknown) (unknown) (no (unknown) (unknown) 08/15/22 (units (unkno wn) date) unknown) (unknown) (no (unknown) (unknown) 09/13/22 (units (unkno wn) date) unknown) (unknown) (no (unknown) (unknown) 10/04/22 (units (unkno wn) date) unknown) (unknown) (no (unknown) (unknown) 10/18/21 8 (units (unk nown) date) spontaneous unknown) (unknown) (no (unknown) (unknown) 10/18/22 (units (unkno wn) date) unknown) (unknown) (no (unknown) (unknown) 11:31 (units (unkno wn) date) unknown) (unknown) (no (unknown) (unknown) 11w 2d 261 lb (units ( unknown) date) unknown) (unknown) (no (unknown) (unknown) 11w3d 4 wks (units (un known) date) unknown) (unknown) (no (unknown) (unknown) 11/01/22 (units (unkno wn) date) unknown) (unknown) (no (unknown) (unknown) 11/01/22] (units (unkn own) date) unknown) (unknown) (no (unknown) (unknown) 15w 1d 266 lb (units ( unknown) date) unknown) (unknown) (no (unknown) (unknown) 19w 6d 268 lb (units ( unknown) date) unknown) (unknown) (no (unknown) (unknown) 2 lb 15 oz. (units (un known) date) 55%ile. Placenta unknown) grade 0 and anterior. Normal amniotic fluid (unknown) (no (unknown) (unknown) 2 wees or as (units (u nknown) date) needed. unknown) (unknown) (no (unknown) (unknown) 2 wks (units (unkno wn) date) unknown) (unknown) (no (unknown) (unknown) 20.14 cm. Grade 0 (units (unknown) date) placenta. Plan: unknown) Follow-up in 2 weeks. Warning signs (unknown) (no (unknown) (unknown) 24w 5d 276 lb 7 (units (unknown) date) oz unknown) (unknown) (no (unknown) (unknown) 28w 6d 282 lb (units ( unknown) date) unknown) (unknown) (no (unknown) (unknown) 3 wks (units (unkno wn) date) unknown) (unknown) (no (unknown) (unknown) 31 weeks (units (unkno wn) date) gestation. Good unknown) movement. No leakage of fluid or vaginal (unknown) (no (unknown) (unknown) 31w 6d 285 lb (units ( unknown) date) unknown) (unknown) (no (unknown) (unknown) 33w 6d 289 lb (units ( unknown) date) unknown) (unknown) (no (unknown) (unknown) 5 wks (units (unkno wn) date) unknown) (unknown) (no (unknown) (unknown) ADHD (units (unkno wn) date) unknown) (unknown) (no (unknown) (unknown) Abnormal lab (units (u nknown) date) values 1st unknown) trimester: discussed (unknown) (no (unknown) (unknown) Add'l Plan (units (unk nown) date) Details unknown) (unknown) (no (unknown) (unknown) Additional (units (unk nown) date) Details:: 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 (unknown) (no (unknown) (unknown) Additional Social (units (unknown) date) History unknown) (unknown) (no (unknown) (unknown) Age/Sex: 32 / F (units (unknown) date) Date of Service: unknown) (unknown) (no (unknown) (unknown) Alcoholism (units (unk nown) date) unknown) (unknown) (no (unknown) (unknown) Allergies (units (unkn own) date) unknown) (unknown) (no (unknown) (unknown) [place] (units ( unknown) date) [id number] unknown) (unknown) (no (unknown) (unknown) Anaphylaxis (units (un known) date) unknown) (unknown) (no (unknown) (unknown) Anesthesia (units (unk nown) date) unknown) (unknown) (no (unknown) (unknown) Aneuploidy (units (unk nown) date) Screening Offered: unknown) Accepted (Would like CFDNA if qualified) (unknown) (no (unknown) (unknown) Anticipated (units (un known) date) course of unknown) care: discussed (unknown) (no (unknown) (unknown) Assessment and (units (unknown) date) Plan unknown) (unknown) (no (unknown) (unknown) Attending Dr: (units ( unknown) date) Josefina Baumann unknown) (unknown) (no (unknown) (unknown) BMI 50.3 (units (unkno wn) date) unknown) (unknown) (no (unknown) (unknown) BP 114/60 (units (unkn own) date) unknown) (unknown) (no (unknown) (unknown) [place] 2 months (units (unknown) date) post-dates unknown) induction (unknown) (no (unknown) (unknown) (units (unkno wn) date) Plan/Preferences unknown) (unknown) (no (unknown) (unknown) Planning (units (unknown) date) unknown) (unknown) (no (unknown) (unknown) Blood Pressure (units (unknown) date) Location Rt unknown) brachial (unknown) (no (unknown) (unknown) Blood (units (unkno wn) date) transfusions?: yes unknown) (Never had but would accept ) (unknown) (no (unknown) (unknown) Breastfeed Preg (units (unknown) date) Comp Name unknown) (unknown) (no (unknown) (unknown) 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) unknown) (unknown) (no (unknown) (unknown) Children's (units (unk nown) date) unknown) (unknown) (no (unknown) (unknown) Confirmed (units (unkn own) date) 11/01/22] unknown) (unknown) (no (unknown) (unknown) Current Estimate (units (unknown) date) 11/30/22 LMP unknown) (Certain) 35w 6d (unknown) (no (unknown) (unknown) Current (units (unknown) date) History unknown) (unknown) (no (unknown) (unknown) DNA (units (unkno wn) date) unknown) (unknown) (no (unknown) (unknown) : 1990 (units (unknown) date) Acct:[id number] unknown) (unknown) (no (unknown) (unknown) Date of positive (units (unknown) date) home unknown) test: 03/25/22 (unknown) (no (unknown) (unknown) Date (units (unkno wn) date) unknown) (unknown) (no (unknown) (unknown) Daughter Juvenile (units (unknown) date) arthritis unknown) (unknown) (no (unknown) (unknown) Del. Date (units (unkn own) date) GA/Weeks Labor unknown) Lgth Wt Sex Route Outcome Anesthesia Place (unknown) (no (unknown) (unknown) Delivery Date: (units (unknown) date) 02/19/21 Last unknown) Updated by: Susi Petersen RN (unknown) (no (unknown) (unknown) Delivery Date: (units (unknown) date) 06/16/15 Last unknown) Updated by: Susi Petersen RN (unknown) (no (unknown) (unknown) Delv (units (unkno wn) date) unknown) (unknown) (no (unknown) (unknown) Denies other (units (u nknown) date) unknown) (unknown) (no (unknown) (unknown) Denies over the (units (unknown) date) counter unknown) medications, Denies alcohol, Denies illicit drugs and (unknown) (no (unknown) (unknown) Depression (units (unk nown) date) (-1999) unknown) (unknown) (no (unknown) (unknown) Depression: (units (un known) date) discussed unknown) (unknown) (no (unknown) (unknown) Dept at (units (unkno wn) date) . unknown) (unknown) (no (unknown) (unknown) Diet and Exercise (units (unknown) date) unknown) (unknown) (no (unknown) (unknown) Discussed (units (unkno wn) date) anesthesia, but unknown) encouraged Brittany to discuss this more in depth with (unknown) (no (unknown) (unknown) Documented By: (units (unknown) date) Josefina Baumann unknownRichard FINE 11/01/22 1130 (unknown) (no (unknown) (unknown) Draft (units (unkno wn) date) unknown) (unknown) (no (unknown) (unknown) ECTOR Calculator (units (unknown) date) unknown) (unknown) (no (unknown) (unknown) EGA Weight BP (units ( unknown) date) UGlucose unknown) (unknown) (no (unknown) (unknown) Estimated (units (unkn own) date) Delivery Date unknown) Method Current (unknown) (no (unknown) (unknown) Expected Delivery (units (unknown) date) Route/Plan unknown) (unknown) (no (unknown) (unknown) Family History (units (unknown) date) (Updated 06/08/22 unknown) @ 21:23 by Aurora Arevalo) (unknown) (no (unknown) (unknown) Father Diabetes (units (unknown) date) mellitus unknown) (unknown) (no (unknown) (unknown) Father of Baby: (units (unknown) date) same unknown) (unknown) (no (unknown) (unknown) [facility] ([facility] unknown) (unknown) (no (unknown) (unknown) First Trimester (units (unknown) date) Education unknown) Checklist (unknown) (no (unknown) (unknown) Follow-up in 4 (units (unknown) date) weeks. Warning unknown) signs reviewed. kag (unknown) (no (unknown) (unknown) Follow-up in 4 (units (unknown) date) weeks. We will unknown) call with anatomic survey results. (unknown) (no (unknown) (unknown) Foot pain () (units (unknown) date) unknown) (unknown) (no (unknown) (unknown) (units (unkno wn) date) unknown) (unknown) (no (unknown) (unknown) Pastor at her next (units (unknown) date) visit. f/u in 4 unknown) weeks. (unknown) (no (unknown) (unknown) Genetic Screening (units (unknown) date) + Counseling unknown) (unknown) (no (unknown) (unknown) Genetic Screening (units (unknown) date) unknown) (unknown) (no (unknown) (unknown) 5 (units (unkn own) date) Multiple births unknown) (unknown) (no (unknown) (unknown) HIV risk (units (unkno wn) date) evaluation: low unknown) risk (unknown) (no (unknown) (unknown) Health Center (units ( unknown) date) Education unknown) (unknown) (no (unknown) (unknown) Health center (units ( unknown) date) information: unknown) nature of practice discussed, personnel (unknown) (no (unknown) (unknown) Heavy menstrual (units (unknown) date) period () unknown) (unknown) (no (unknown) (unknown) Height 5 ft 4 in (units (unknown) date) unknown) (unknown) (no (unknown) (unknown) Hepatitis C risk (units (unknown) date) evaluation: low unknown) risk (unknown) (no (unknown) (unknown) History of (units (unk nown) date) Hepatitis B: No unknown) (unknown) (no (unknown) (unknown) History of (units (unk nown) date) Hepatitis C: No unknown) (unknown) (no (unknown) (unknown) History of (units (unk nown) date) surgery unknown) (unknown) (no (unknown) (unknown) Hospital: (units (u nknown) date) unknown) (unknown) (no (unknown) (unknown) [facility]. (units (unknown) date) unknown) (unknown) (no (unknown) (unknown) Hx # (units (u nknown) date) Pregnancies unknown) Elective abortions (unknown) (no (unknown) (unknown) Hx # Term (units (unkn own) date) Pregnancies 3 unknown) Ectopic pregnancies (unknown) (no (unknown) (unknown) Hx severe (units (unkn own) date) polyhydramnios unknown) (unknown) (no (unknown) (unknown) Hypothyroid (units (un known) date) unknown) (unknown) (no (unknown) (unknown) Infant will be (units (unknown) date) adopted?: no unknown) (unknown) (no (unknown) (unknown) Infection History (units (unknown) date) unknown) (unknown) (no (unknown) (unknown) Infectious (units (unk nown) date) Disease Education unknown) (unknown) (no (unknown) (unknown) Infectious (units (unk nown) date) disease exposure: unknown) chicken pox immunity discussed, hepatitis risk (unknown) (no (unknown) (unknown) Initial Weight: (units (unknown) date) 255 lb unknown) (unknown) (no (unknown) (unknown) Initials (units (unkno wn) date) unknown) (unknown) (no (unknown) (unknown) Intake Clinical (units (unknown) date) Staff unknown) (unknown) (no (unknown) (unknown) Intake Note: (units (u nknown) date) unknown) (unknown) (no (unknown) (unknown) Intake performed (units (unknown) date) by: Gi Culp unknown) (unknown) (no (unknown) (unknown) Intake (units (unkno wn) date) unknown) (unknown) (no (unknown) (unknown) LM (units (unkno wn) date) unknown) (unknown) (no (unknown) (unknown) Brittany and her (units (u nknown) date) children present unknown) for her SHERMAN visit now at 33+ 6 weeks (unknown) (no (unknown) (unknown) Brittany presents (units ( unknown) date) today with her 3 unknown) kids for a routine OB visit at 24w5d. She (unknown) (no (unknown) (unknown) Live with someone (units (unknown) date) with TB or exposed unknown) to TB: No (unknown) (no (unknown) (unknown) Loc: [facility] (units (unkno wn) date) unknown) (unknown) (no (unknown) (unknown) [id number] (units (unk nown) date) unknown) (unknown) (no (unknown) (unknown) Marital status: (units (unknown) date) unknown) (unknown) (no (unknown) (unknown) Medical History (units (unknown) date) (Updated 10/18/22 unknown) @ 13:49 by Glen Ojeda MD) (unknown) (no (unknown) (unknown) Medications (units (un known) date) unknown) (unknown) (no (unknown) (unknown) Mental health (units ( unknown) date) problem unknown) (unknown) (no (unknown) (unknown) Migraine (units (unkno wn) date) headaches unknown) (unknown) (no (unknown) (unknown) Mother Depression (units (unknown) date) unknown) (unknown) (no (unknown) (unknown) N No no 146 15 (units (unknown) date) N/A absent 4 wks unknown) (unknown) (no (unknown) (unknown) N No no 168 11 (units (unknown) date) N/A absent unknown) long/closed AGA (unknown) (no (unknown) (unknown) N Yes no 143 32 (units (unknown) date) Breech absent HUNTER unknown) 20.14cm (unknown) (no (unknown) (unknown) Nearsightedness (units (unknown) date) unknown) (unknown) (no (unknown) (unknown) Notes (units (unkno wn) date) unknown) (unknown) (no (unknown) (unknown) Number of Living (units (unknown) date) Children 3 unknown) (unknown) (no (unknown) (unknown) Number of (units (unkn own) date) fetuses:: Single unknown) (unknown) (no (unknown) (unknown) Nutrition and (units ( unknown) date) weight gain unknown) counseling: special diet: discussed (unknown) (no (unknown) (unknown) OB Office Visit (units (unknown) date) unknown) (unknown) (no (unknown) (unknown) OB Visit Log (units (u nknown) date) unknown) (unknown) (no (unknown) (unknown) OB check (units (unkno wn) date) unknown) (unknown) (no (unknown) (unknown) Obesity (units (unkno wn) date) unknown) (unknown) (no (unknown) (unknown) On control (units (unknown) date) at conception?: No unknown) (unknown) (no (unknown) (unknown) PFSH (units (unkno wn) date) unknown) (unknown) (no (unknown) (unknown) PTSD (units (unkno wn) date) (post-traumatic unknown) stress disorder) (-1999) (unknown) (no (unknown) (unknown) Painful menstrual (units (unknown) date) periods () unknown) (unknown) (no (unknown) (unknown) Pap performed?: (units (unknown) date) No unknown) (unknown) (no (unknown) (unknown) Para 3 (units (unkno wn) date) Spontaneous unknown) abortions 1 (unknown) (no (unknown) (unknown) Partner history (units (unknown) date) of STD: denies hx unknown) (unknown) (no (unknown) (unknown) Partner history (units (unknown) date) of genital herpes: unknown) No (unknown) (no (unknown) (unknown) Partner: [facility] (units (unknown) date) [place] unknown) (unknown) (no (unknown) (unknown) Past Pregnancies (units (unknown) date) unknown) (unknown) (no (unknown) (unknown) Patient presents (units (unknown) date) accompanied by her unknown) children for routine visit at (unknown) (no (unknown) (unknown) Patient presents (units (unknown) date) for a new OB visit unknown) at 11 weeks gestation. She has had (unknown) (no (unknown) (unknown) Patient presents (units (unknown) date) for a routine unknown) visit at 15 weeks gestation. Cell (unknown) (no (unknown) (unknown) Patient presents (units (unknown) date) for a routine unknown) visit at 19 weeks gestation. She (unknown) (no (unknown) (unknown) Patient presents (units (unknown) date) for a routine unknown) visit at 28 weeks gestation. 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: (units ( unknown) date) Pediatric unknown) [facility] (unknown) (no (unknown) (unknown) Personal history (units (unknown) date) of STD: denies hx unknown) (unknown) (no (unknown) (unknown) Personal history (units (unknown) date) of genital herpes: unknown) No (unknown) (no (unknown) (unknown) Planned repeat (units (unknown) date) C/S, 11/24/22 unknown) (unknown) (no (unknown) (unknown) Polyhydramnios (units (unknown) date) unknown) (unknown) (no (unknown) (unknown) Position Sitting (units (unknown) date) unknown) (unknown) (no (unknown) (unknown) Postive screening (units (unknown) date) CF (In scans) unknown) (unknown) (no (unknown) (unknown) (units (unk nown) date) depression unknown) (unknown) (no (unknown) (unknown) History (units (unknown) date) unknown) (unknown) (no (unknown) (unknown) type:: (units (unknown) date) Other Normal unknown) (unknown) (no (unknown) (unknown) (units (unkno wn) date) Education unknown) (unknown) (no (unknown) (unknown) Initial (units (unknown) date) Assessment unknown) (unknown) (no (unknown) (unknown) Specific (units (unknown) date) Issues/Plans unknown) (unknown) (no (unknown) (unknown) Testing: (units (unknown) date) discussed unknown) (unknown) (no (unknown) (unknown) Visit (units (unknown) date) unknown) (unknown) (no (unknown) (unknown) (units (unkno wn) date) education packet: unknown) symptoms, Vitamins and iron, Diet and (unknown) (no (unknown) (unknown) Previous (units (unknown) date) section unknown) (unknown) (no (unknown) (unknown) Primary Care (units (u nknown) date) Provider: [facility] unknown) [facility] (unknown) (no (unknown) (unknown) Primary Ob (units (unk nown) date) Provider: unknown) Josefina Baumann (unknown) (no (unknown) (unknown) Prior (units (unkno wn) date) GBS-Infected unknown) child: No (unknown) (no (unknown) (unknown) [place] (units (unk nown) date) [place] 4 unknown) (unknown) (no (unknown) (unknown) Providers (units (unkn own) date) unknown) (unknown) (no (unknown) (unknown) RPR pos, TPA (units (u nknown) date) negative unknown) (unknown) (no (unknown) (unknown) Rash or viral (units ( unknown) date) illness since last unknown) menstrual period: Yes (minor head cold) (unknown) (no (unknown) (unknown) Reason For Visit (units (unknown) date) unknown) (unknown) (no (unknown) (unknown) Recent travel (units ( unknown) date) outside of unknown) country?: No (unknown) (no (unknown) (unknown) Recurrent (units (unkn own) date) loss or unknown) a stillbirth: No (unknown) (no (unknown) (unknown) Repeat (units (unknown) date) section with unknown) bilateral salpingectomy (unknown) (no (unknown) (unknown) Reports Other (units ( unknown) date) (Older son unknown) undergoing genetic workup for currently unidentified (unknown) (no (unknown) (unknown) 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 unknown) (unknown) (no (unknown) (unknown) Safety (units (unkno wn) date) unknown) (unknown) (no (unknown) (unknown) Sauna/hot tub (units ( unknown) date) use, Dental care, unknown) Marijuana use, Travel and Influenza vaccine (no (unknown) (no (unknown) (unknown) Signed By: (units (unk nown) date) unknown) (unknown) (no (unknown) (unknown) Smoking Status: (units (unknown) date) Former smoker unknown) (Quit-2020) (unknown) (no (unknown) (unknown) Social History (units (unknown) date) unknown) (unknown) (no (unknown) (unknown) Son Hearing loss (units (unknown) date) unknown) (unknown) (no (unknown) (unknown) Son undergoing (units (unknown) date) workup at unknown) [facility] (unknown) (no (unknown) (unknown) Support (units (unkno wn) date) Person(s):: [facility] unknown) (unknown) (no (unknown) (unknown) Surgical History (units (unknown) date) (Updated 07/12/22 unknown) @ 15:10 by Josefina Baumann MD) (unknown) (no (unknown) (unknown) Surrogate (units (unkn own) date) ?: no unknown) (unknown) (no (unknown) (unknown) Symptoms since (units (unknown) date) LMP: Reports unknown) amenorrhea, nausea, fatigue, urinary frequency, (unknown) (no (unknown) (unknown) TR Yes no 138 30 (units (unknown) date) Breech absent AGA unknown) 29w2d (unknown) (no (unknown) (unknown) TR Yes no 143 26 (units (unknown) date) N/A absent 4 wks unknown) (unknown) (no (unknown) (unknown) TR Yes no 144 21 (units (unknown) date) N/A absent 4 wks unknown) (unknown) (no (unknown) (unknown) TR Yes no 148 36 (units (unknown) date) Vertex absent HUNTER unknown) 23.99 c (unknown) (no (unknown) (unknown) TSH. Discussed (units (unknown) date) TDAP vaccination unknown) nv. She had questions regarding anesthesia (unknown) (no (unknown) (unknown) Tdap, declines (units (unknown) date) flu unknown) (unknown) (no (unknown) (unknown) Teratogen (units (unkn own) date) Exposures since unknown) LMP/Conception: Denies prescription medications, (unknown) (no (unknown) (unknown) Testing Education (units (unknown) date) unknown) (unknown) (no (unknown) (unknown) Testing education (units (unknown) date) completed: group B unknown) strep, Spina bifida testing and Cell Free (unknown) (no (unknown) (unknown) This note may (units ( unknown) date) have been all or unknown) partially generated using voice recognition (unknown) (no (unknown) (unknown) 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 [place] (unknown) (no (unknown) (unknown) Tobacco + (units (unkn own) date) Substance Use unknown) (unknown) (no (unknown) (unknown) Tobacco Status (units (unknown) date) unknown) (unknown) (no (unknown) (unknown) Trimester:: 3rd (units (unknown) date) Trimester unknown) (28wks-Del) (unknown) (no (unknown) (unknown) Type(s) of (units (unk nown) date) exercise: walking unknown) (unknown) (no (unknown) (unknown) UProtein Movement (units (unknown) date) PreLabor FHR Fndl unknown) Ht Pres Edema Cerv Exam US/Comment Next Appt (unknown) (no (unknown) (unknown) Ultrasound (units (unk nown) date) performed?: Yes unknown) (unknown) (no (unknown) (unknown) Varicella/chicken (units (unknown) date) pox status: unknown) immunized (unknown) (no (unknown) (unknown) Visit Date: (units (un known) date) 05/13/22 Last unknown) Updated by: Josefina Baumann MD (unknown) (no (unknown) (unknown) Visit Date: (units (un known) date) 06/09/22 Last unknown) Updated by: Josefina Baumann MD (unknown) (no (unknown) (unknown) Visit Date: (units (un known) date) 07/12/22 Last unknown) Updated by: Joseifna Baumann MD (unknown) (no (unknown) (unknown) Visit Date: (units (un known) date) 08/15/22 Last unknown) Updated by: Anita Perez P.A-C (unknown) (no (unknown) (unknown) Visit Date: (units (un known) date) 09/13/22 Last unknown) Updated by: Josefina Baumann MD (unknown) (no (unknown) (unknown) Visit Date: (units (un known) date) 10/04/22 Last unknown) Updated by: Josefina Baumann MD (unknown) (no (unknown) (unknown) Visit Date: (units (un known) date) 10/18/22 Last unknown) Updated by: Glen Ojeda MD (unknown) (no (unknown) (unknown) Visit Reasons: OB (units (unknown) date) Check w/HUNTER unknown) (unknown) (no (unknown) (unknown) Vitals (units (unkno wn) date) unknown) (unknown) (no (unknown) (unknown) WG (units (unkno wn) date) unknown) (unknown) (no (unknown) (unknown) Weeks gestation:: (units (unknown) date) 35 unknown) (unknown) (no (unknown) (unknown) Weight 293 lb (units ( unknown) date) unknown) (unknown) (no (unknown) (unknown) [place] teeth (units (u nknown) date) extracted unknown) (unknown) (no (unknown) (unknown) Would like (units (unk nown) date) referral unknown) to [facility] grade breast pump at (unknown) (no (unknown) (unknown) Zika virus (units (unk nown) date) exposure: No unknown) (unknown) (no (unknown) (unknown) additional social (units (unknown) date) history: unknown) Difficulty other children. Would (unknown) (no (unknown) (unknown) alcohol intake: (units (unknown) date) former unknown) (unknown) (no (unknown) (unknown) anyone in either (units (unknown) date) family with: unknown) (unknown) (no (unknown) (unknown) attempted, unable (units (unknown) date) other [place] unknown) (unknown) (no (unknown) (unknown) azithromycin 250 (units (unknown) date) mg tablet See Rx unknown) Instructions PO .COMPLEX #6 tabs 10/07/22 [Rx (unknown) (no (unknown) (unknown) because she has (units (unknown) date) had difficult unknown) spinals with all 3 of her deliveries. (unknown) (no (unknown) (unknown) bleeding. No (units (u nknown) date) regular unknown) contractions. On ultrasound: Breech presentation. 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 (units (unkno wn) date) unknown) (unknown) (no (unknown) (unknown) delivery. (units (unkn own) date) unknown) (unknown) (no (unknown) (unknown) described, visit (units (unknown) date) schedule reviewed, unknown) ultrasounds policy reviewed, coverage 24 (unknown) (no (unknown) (unknown) discussed, (units (unk nown) date) tuberculosis unknown) exposure discussed, CMV discussed, Toxoplasmosis (unknown) (no (unknown) (unknown) do you feel safe (units (unknown) date) at home: Yes unknown) (unknown) (no (unknown) (unknown) during the past (units (unknown) date) year weight has: unknown) other (wide fluctuations since last ) (unknown) (no (unknown) (unknown) education level: (units (unknown) date) vocational (some unknown) college, certificate programs) (unknown) (no (unknown) (unknown) erm [place] (units (u nknown) date) unknown) (unknown) (no (unknown) (unknown) executed today. (units (unknown) date) Labor precautions unknown) reviewed and follow-up SHERMAN w/ HUNTER will be in (unknown) (no (unknown) (unknown) f/u limited (units (un known) date) anatomy views at unknown) 28wk visit with Dr. Baumann. Ordered OGTT, CBC and (unknown) (no (unknown) (unknown) failure to (units (unk nown) date) progress [place] unknown) (unknown) (no (unknown) (unknown) felt rare (units (unknown) date) movement. No unknown) leakage of fluid or vaginal bleeding. Plan: (unknown) (no (unknown) (unknown) fetoprotein (units (un known) date) ordered. Warning unknown) signs reviewed. Follow-up in 5 weeks. kag (unknown) (no (unknown) (unknown) fire extinguisher (units (unknown) date) in home: Yes unknown) (unknown) (no (unknown) (unknown) firearms in home: (units (unknown) date) Yes firearms unknown) unloaded and locked: Yes (unknown) (no (unknown) (unknown) flaxseed Allergy (units (unknown) date) (Severe, Verified unknown) 11/01/22 11:31) (unknown) (no (unknown) (unknown) flu or covid (units (u nknown) date) vaccines received) unknown) (unknown) (no (unknown) (unknown) free DNA showed (units (unknown) date) normal female. She unknown) continues to have migraines several days a (unknown) (no (unknown) (unknown) from 2 weeks ago (units (unknown) date) and slightly above unknown) the normal range for this EGA. HHS form 687 (unknown) (no (unknown) (unknown) gestational age. (units (unknown) date) She is having a unknown) few [place] contractions but denies (unknown) (no (unknown) (unknown) grade breast pump (units (unknown) date) that she can have unknown) when she goes home from hospital after (unknown) (no (unknown) (unknown) had her 20 week (units (unknown) date) ultrasound today. unknown) Those results are not available. She has (unknown) (no (unknown) (unknown) had limited heart (units (unknown) date) and outflow tract unknown) views from her anatomy US. Plan 3D US and (unknown) (no (unknown) (unknown) have occurred. If (units (unknown) date) there are any unknown) questions, please contact the Medical Records (unknown) (no (unknown) (unknown) hours a day and (units (unknown) date) participation of unknown) father in care and office visits (unknown) (no (unknown) (unknown) household members: (units (unknown) date) spouse, family unknown) ([id number] and his 3 children (moving out (unknown) (no (unknown) (unknown) housing: house (units (unknown) date) unknown) (unknown) (no (unknown) (unknown) hydroxyzine HCl (units (unknown) date) 25 mg tablet 25 mg unknown) PO TID PRN anxiety #20 tabs 09/16/22 [Rx (unknown) (no (unknown) (unknown) in discharge. Her (units (unknown) date) baby remains unknown) active however. HUNTER today is slightly increased (unknown) (no (unknown) (unknown) is still having (units (unknown) date) occasional unknown) headaches. Good movement. No leakage of fluid (unknown) (no (unknown) (unknown) jw (units (unkno wn) date) unknown) (unknown) (no (unknown) (unknown) kag (units (unkno wn) date) unknown) (unknown) (no (unknown) (unknown) levothyroxine 137 (units (unknown) date) mcg tablet 137 mcg unknown) PO DAILY #30 tabs 10/17/22 [Rx Confirmed (unknown) (no (unknown) (unknown) lives (units (unkno wn) date) independently: Yes unknown) (unknown) (no (unknown) (unknown) m 2 wks (units (unkno wn) date) unknown) (unknown) (no (unknown) (unknown) magnesium 200 mg (units (unknown) date) tablet 200 mg PO unknown) DAILY 05/03/22 [History Confirmed 11/01/22] (unknown) (no (unknown) (unknown) marital status: (units (unknown) date) unknown) (unknown) (no (unknown) (unknown) may occur. (units (unk nown) date) Occasional unknown) wrong-word or 'sound-alike' substitutions may have (unknown) (no (unknown) (unknown) medication. No (units (unknown) date) vaginal bleeding. unknown) On ultrasound: Intrauterine gestational sac (unknown) (no (unknown) (unknown) migraines and (units ( unknown) date) these are getting unknown) a little better. She is using the prescribed (unknown) (no (unknown) (unknown) months other Iyla (units (unknown) date) unknown) (unknown) (no (unknown) (unknown) number of (units (unkn own) date) children: 3 unknown) (unknown) (no (unknown) (unknown) occasional 1 (units (u nknown) date) Percocet to treat unknown) these. Plan: 20 week ultrasound ordered. Alpha (unknown) (no (unknown) (unknown) occupational (units (u nknown) date) status: unemployed unknown) and previously employed (unknown) (no (unknown) (unknown) occurred due to (units (unknown) date) the inherent unknown) limitations of voice recognition software. Please (unknown) (no (unknown) (unknown) ondansetron 4 mg (units (unknown) date) disintegrating unknown) tablet 4 mg PO Q6H PRN nausea and vomiting #20 (unknown) (no (unknown) (unknown) or vaginal (units (unk nown) date) bleeding. On unknown) ultrasound: Breech presentation. AGA 29 weeks 2 days. (unknown) (no (unknown) (unknown) oxycodone 5 mg (units (unknown) date) tablet 5 mg PO Q6H unknown) PRN pain #10 tabs 10/12/22 [Rx Confirmed (unknown) (no (unknown) (unknown) pets and animals: (units (unknown) date) Yes (horses) unknown) (unknown) (no (unknown) (unknown) polyhydramnios (units (unknown) date) unknown) (unknown) (no (unknown) (unknown) precautions, (units (u nknown) date) Listeriosis unknown) prevention and Rubella Immunization (unknown) (no (unknown) (unknown) prenat.vits,alexey,m (units (unknown) date) [id number] 1 unknown) tab PO DAILY 04/22/22 [History Confirmed (unknown) (no (unknown) (unknown) read the note (units ( unknown) date) carefully and unknown) recognize, using context, where these substitutions (unknown) (no (unknown) (unknown) really like to (units (unknown) date) meet w/ [facility] unknown) prior to delivery and would like Rx for hospital (unknown) (no (unknown) (unknown) regular uterine (units (unknown) date) contractions, unknown) bleeding, leakage of fluid per vagina, or change (unknown) (no (unknown) (unknown) reports good (units (u nknown) date) movement and unknown) denies VB, LOF, contractions and cramping. She (unknown) (no (unknown) (unknown) reviewed. 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 (units (unkn own) date) Although every unknown) effort is made to edit content, fountain brush assembler errors (unknown) (no (unknown) (unknown) soon)) and (units (unk nown) date) children unknown) (unknown) (no (unknown) (unknown) special [place] (units ( unknown) date) needs: No unknown) (unknown) (no (unknown) (unknown) substance use (units (u nknown) date) type: marijuana unknown) (in the past, not recently and not while ) (unknown) (no (unknown) (unknown) tabs 05/17/22 [Rx (units (unknown) date) Confirmed unknown) 11/01/22] (unknown) (no (unknown) (unknown) term [place] (units ( unknown) date) [place] unknown) (unknown) (no (unknown) (unknown) volume. The heart (units (unknown) date) and outflow tracts unknown) could not be visualized. Follow-up in 3 (unknown) (no (unknown) (unknown) water heater temp (units (unknown) date) set < 120 deg: Yes unknown) (unknown) (no (unknown) (unknown) week but they are (units (unknown) date) not lasting unknown) multiple days and not as intense. She is using an (unknown) (no (unknown) (unknown) weeks with repeat (units (unknown) date) ultrasound to unknown) check fluid. Warning signs reviewed. (unknown) (no (unknown) (unknown) weight gain, Fish (units (unknown) date) and mercury unknown) intake, Caffeine use, Exercise and activity, (unknown) (no (unknown) (unknown) well-balanced (units ( unknown) date) diet: daily or unknown) most days (unknown) (no (unknown) (unknown) with 11 weeks 3 (units (unknown) date) days. Left ovary unknown) is normal. Plan: Cell free DNA ordered. (unknown) (no (unknown) (unknown) with a fetus with (units (unknown) date) a crown-rump unknown) length measuring 4.63 cm. This is consistent (unknown) (no (unknown) (unknown) work/environmenta (units (unknown) date) l/hazards, Sexual unknown) activity, X-ray exposure, Medication use, (unknown) (no (unknown) (unknown) working smoke (units ( unknown) date) detector in home: unknown) Yes Result panel 163 (unknown) (no (unknown) (unknown) (no value) (units (unk nown) date) unknown) (unknown) (no (unknown) (unknown) 'syndrome';) (units (u nknown) date) unknown) (unknown) (no (unknown) (unknown) (+11 lb) 112/62 N (units (unknown) date) unknown) (unknown) (no (unknown) (unknown) (+13 lb) 118/68 N (units (unknown) date) unknown) (unknown) (no (unknown) (unknown) (+21 lb 7 oz) (units ( unknown) date) 98/68 N unknown) (unknown) (no (unknown) (unknown) (+27 lb) 110/70 N (units (unknown) date) unknown) (unknown) (no (unknown) (unknown) (+30 lb) 126/66 N (units (unknown) date) unknown) (unknown) (no (unknown) (unknown) (+34 lb) 104/68 N (units (unknown) date) unknown) (unknown) (no (unknown) (unknown) (+38 lb) 114/60 (units (unknown) date) unknown) (unknown) (no (unknown) (unknown) (+6 lb) 108/68 N (units (unknown) date) unknown) (unknown) (no (unknown) (unknown) Genetic (units (unkn own) date) Screening/Teratolo unknown) gy Counseling - Includes patient, baby's father, or (unknown) (no (unknown) (unknown) -?-?-?-?-?-?-?-?- (units (unknown) date) ?-?-?-? unknown) (unknown) (no (unknown) (unknown) 01/24/14 41 17 7 (units (unknown) date) lb 1 oz Female unknown) live - full t (unknown) (no (unknown) (unknown) 02/19/21 39 7 lb (units (unknown) date) 12 oz Female live unknown) - full term (unknown) (no (unknown) (unknown) 05/13/22 (units (unkno wn) date) unknown) (unknown) (no (unknown) (unknown) 06/09/22 (units (unkno wn) date) unknown) (unknown) (no (unknown) (unknown) 06/16/15 38 7 lb (units (unknown) date) 13 oz Male unknown) live - full (unknown) (no (unknown) (unknown) 07/12/22 (units (unkno wn) date) unknown) (unknown) (no (unknown) (unknown) 08/15/22 (units (unkno wn) date) unknown) (unknown) (no (unknown) (unknown) 1 week (units (unkno wn) date) unknown) (unknown) (no (unknown) (unknown) 09/13/22 (units (unkno wn) date) unknown) (unknown) (no (unknown) (unknown) 10/04/22 (units (unkno wn) date) unknown) (unknown) (no (unknown) (unknown) 10/18/21 8 (units (unk nown) date) spontaneous unknown) (unknown) (no (unknown) (unknown) 10/18/22 (units (unkno wn) date) unknown) (unknown) (no (unknown) (unknown) 11:31 (units (unkno wn) date) unknown) (unknown) (no (unknown) (unknown) 11w 2d 261 lb (units ( unknown) date) unknown) (unknown) (no (unknown) (unknown) 11w3d 4 wks (units (un known) date) unknown) (unknown) (no (unknown) (unknown) 11/01/22 (units (unkno wn) date) unknown) (unknown) (no (unknown) (unknown) 11/01/22] (units (unkn own) date) unknown) (unknown) (no (unknown) (unknown) 15w 1d 266 lb (units ( unknown) date) unknown) (unknown) (no (unknown) (unknown) 19w 6d 268 lb (units ( unknown) date) unknown) (unknown) (no (unknown) (unknown) 2 lb 15 oz. (units (un known) date) 55%ile. Placenta unknown) grade 0 and anterior. Normal amniotic fluid (unknown) (no (unknown) (unknown) 2 wees or as (units (u nknown) date) needed. unknown) (unknown) (no (unknown) (unknown) 2 wks (units (unkno wn) date) unknown) (unknown) (no (unknown) (unknown) 20.14 cm. Grade 0 (units (unknown) date) placenta. Plan: unknown) Follow-up in 2 weeks. Warning signs (unknown) (no (unknown) (unknown) 24w 5d 276 lb 7 (units (unknown) date) oz unknown) (unknown) (no (unknown) (unknown) 28w 6d 282 lb (units ( unknown) date) unknown) (unknown) (no (unknown) (unknown) 3 wks (units (unkno wn) date) unknown) (unknown) (no (unknown) (unknown) 31 weeks (units (unkno wn) date) gestation. Good unknown) movement. No leakage of fluid or vaginal (unknown) (no (unknown) (unknown) 31w 6d 285 lb (units ( unknown) date) unknown) (unknown) (no (unknown) (unknown) 33w 6d 289 lb (units ( unknown) date) unknown) (unknown) (no (unknown) (unknown) 35w 6d 293 lb (units ( unknown) date) unknown) (unknown) (no (unknown) (unknown) 5 wks (units (unkno wn) date) unknown) (unknown) (no (unknown) (unknown) ADHD (units (unkno wn) date) unknown) (unknown) (no (unknown) (unknown) Abnormal lab (units (u nknown) date) values 1st unknown) trimester: discussed (unknown) (no (unknown) (unknown) Add'l Plan (units (unk nown) date) Details unknown) (unknown) (no (unknown) (unknown) Additional (units (unk nown) date) Details:: 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 (unknown) (no (unknown) (unknown) Additional Social (units (unknown) date) History unknown) (unknown) (no (unknown) (unknown) Age/Sex: 32 / F (units (unknown) date) Date of Service: unknown) (unknown) (no (unknown) (unknown) Alcoholism (units (unk nown) date) unknown) (unknown) (no (unknown) (unknown) Allergies (units (unkn own) date) unknown) (unknown) (no (unknown) (unknown) [place] (units ( unknown) date) [id number] unknown) (unknown) (no (unknown) (unknown) Anaphylaxis (units (un known) date) unknown) (unknown) (no (unknown) (unknown) Anesthesia (units (unk nown) date) unknown) (unknown) (no (unknown) (unknown) Aneuploidy (units (unk nown) date) Screening Offered: unknown) Accepted (Would like CFDNA if qualified) (unknown) (no (unknown) (unknown) Anticipated (units (un known) date) course of unknown) care: discussed (unknown) (no (unknown) (unknown) Assessment and (units (unknown) date) Plan unknown) (unknown) (no (unknown) (unknown) Attending Dr: (units ( unknown) date) Josefina Baumann unknown) (unknown) (no (unknown) (unknown) BMI 50.3 (units (unkno wn) date) unknown) (unknown) (no (unknown) (unknown) BP 114/60 (units (unkn own) date) unknown) (unknown) (no (unknown) (unknown) Yonis 2 months (units (unknown) date) post-dates unknown) induction (unknown) (no (unknown) (unknown) (units (unkno wn) date) Plan/Preferences unknown) (unknown) (no (unknown) (unknown) Planning (units (unknown) date) unknown) (unknown) (no (unknown) (unknown) Blood Pressure (units (unknown) date) Location Rt unknown) brachial (unknown) (no (unknown) (unknown) Blood (units (unkno wn) date) transfusions?: yes unknown) (Never had but would accept ) (unknown) (no (unknown) (unknown) Breastfeed Preg (units (unknown) date) Comp Name unknown) (unknown) (no (unknown) (unknown) 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) unknown) (unknown) (no (unknown) (unknown) Children's (units (unk nown) date) unknown) (unknown) (no (unknown) (unknown) Confirmed (units (unkn own) date) 11/01/22] unknown) (unknown) (no (unknown) (unknown) Current Estimate (units (unknown) date) 11/30/22 LMP unknown) (Certain) 35w 6d (unknown) (no (unknown) (unknown) Current (units (unknown) date) History unknown) (unknown) (no (unknown) (unknown) DNA (units (unkno wn) date) unknown) (unknown) (no (unknown) (unknown) : 1990 (units (unknown) date) Acct:[id number] unknown) (unknown) (no (unknown) (unknown) Date of positive (units (unknown) date) home unknown) test: 03/25/22 (unknown) (no (unknown) (unknown) Date (units (unkno wn) date) unknown) (unknown) (no (unknown) (unknown) Daughter Juvenile (units (unknown) date) arthritis unknown) (unknown) (no (unknown) (unknown) Del. Date (units (unkn own) date) GA/Weeks Labor unknown) Lgth Wt Sex Route Outcome Anesthesia Place (unknown) (no (unknown) (unknown) Delivery Date: (units (unknown) date) 02/19/21 Last unknown) Updated by: Susi Petersen RN (unknown) (no (unknown) (unknown) Delivery Date: (units (unknown) date) 06/16/15 Last unknown) Updated by: Susi Petersen RN (unknown) (no (unknown) (unknown) Delv (units (unkno wn) date) unknown) (unknown) (no (unknown) (unknown) Denies other (units (u nknown) date) unknown) (unknown) (no (unknown) (unknown) Denies over the (units (unknown) date) counter unknown) medications, Denies alcohol, Denies illicit drugs and (unknown) (no (unknown) (unknown) Depression (units (unk nown) date) (-1999) unknown) (unknown) (no (unknown) (unknown) Depression: (units (un known) date) discussed unknown) (unknown) (no (unknown) (unknown) Dept at (units (unkno wn) date) . unknown) (unknown) (no (unknown) (unknown) Diet and Exercise (units (unknown) date) unknown) (unknown) (no (unknown) (unknown) Discussed (units (unkno wn) date) anesthesia, but unknown) encouraged Brittany to discuss this more in depth with (unknown) (no (unknown) (unknown) Documented By: (units (unknown) date) Josefina Baumann unknownRichard FINE 11/01/22 1130 (unknown) (no (unknown) (unknown) Draft (units (unkno wn) date) unknown) (unknown) (no (unknown) (unknown) ECTOR Calculator (units (unknown) date) unknown) (unknown) (no (unknown) (unknown) EGA Weight BP (units ( unknown) date) UGlucose unknown) (unknown) (no (unknown) (unknown) Estimated (units (unkn own) date) Delivery Date unknown) Method Current (unknown) (no (unknown) (unknown) Expected Delivery (units (unknown) date) Route/Plan unknown) (unknown) (no (unknown) (unknown) Family History (units (unknown) date) (Updated 06/08/22 unknown) @ 21:23 by Aurora Arevalo) (unknown) (no (unknown) (unknown) Father Diabetes (units (unknown) date) mellitus unknown) (unknown) (no (unknown) (unknown) Father of Baby: (units (unknown) date) same unknown) (unknown) (no (unknown) (unknown) [facility] ([facility] unknown) (unknown) (no (unknown) (unknown) First Trimester (units (unknown) date) Education unknown) Checklist (unknown) (no (unknown) (unknown) Follow-up in 4 (units (unknown) date) weeks. Warning unknown) signs reviewed. kag (unknown) (no (unknown) (unknown) Follow-up in 4 (units (unknown) date) weeks. We will unknown) call with anatomic survey results. (unknown) (no (unknown) (unknown) Foot pain () (units (unknown) date) unknown) (unknown) (no (unknown) (unknown) (units (unkno wn) date) unknown) (unknown) (no (unknown) (unknown) [place] at her next (units (unknown) date) visit. f/u in 4 unknown) weeks. (unknown) (no (unknown) (unknown) Genetic Screening (units (unknown) date) + Counseling unknown) (unknown) (no (unknown) (unknown) Genetic Screening (units (unknown) date) unknown) (unknown) (no (unknown) (unknown) 5 (units (unkn own) date) Multiple births unknown) (unknown) (no (unknown) (unknown) HIV risk (units (unkno wn) date) evaluation: low unknown) risk (unknown) (no (unknown) (unknown) Health Center (units ( unknown) date) Education unknown) (unknown) (no (unknown) (unknown) Health center (units ( unknown) date) information: unknown) nature of practice discussed, personnel (unknown) (no (unknown) (unknown) Heavy menstrual (units (unknown) date) period () unknown) (unknown) (no (unknown) (unknown) Height 5 ft 4 in (units (unknown) date) unknown) (unknown) (no (unknown) (unknown) Hepatitis C risk (units (unknown) date) evaluation: low unknown) risk (unknown) (no (unknown) (unknown) History of (units (unk nown) date) Hepatitis B: No unknown) (unknown) (no (unknown) (unknown) History of (units (unk nown) date) Hepatitis C: No unknown) (unknown) (no (unknown) (unknown) History of (units (unk nown) date) surgery unknown) (unknown) (no (unknown) (unknown) Hospital: (units (u nknown) date) unknown) (unknown) (no (unknown) (unknown) [facility]. (units (unknown) date) unknown) (unknown) (no (unknown) (unknown) Hx # (units (u nknown) date) Pregnancies unknown) Elective abortions (unknown) (no (unknown) (unknown) Hx # Term (units (unkn own) date) Pregnancies 3 unknown) Ectopic pregnancies (unknown) (no (unknown) (unknown) Hx severe (units (unkn own) date) polyhydramnios unknown) (unknown) (no (unknown) (unknown) Hypothyroid (units (un known) date) unknown) (unknown) (no (unknown) (unknown) will be (units (unknown) date) adopted?: no unknown) (unknown) (no (unknown) (unknown) Infection History (units (unknown) date) unknown) (unknown) (no (unknown) (unknown) Infectious (units (unk nown) date) Disease Education unknown) (unknown) (no (unknown) (unknown) Infectious (units (unk nown) date) disease exposure: unknown) chicken pox immunity discussed, hepatitis risk (unknown) (no (unknown) (unknown) Initial Weight: (units (unknown) date) 255 lb unknown) (unknown) (no (unknown) (unknown) Initials (units (unkno wn) date) unknown) (unknown) (no (unknown) (unknown) Intake Clinical (units (unknown) date) Staff unknown) (unknown) (no (unknown) (unknown) Intake Note: (units (u nknown) date) unknown) (unknown) (no (unknown) (unknown) Intake performed (units (unknown) date) by: Gi Culp unknown) (unknown) (no (unknown) (unknown) Intake (units (unkno wn) date) unknown) (unknown) (no (unknown) (unknown) LM (units (unkno wn) date) unknown) (unknown) (no (unknown) (unknown) Brittany and her (units (u nknown) date) children present unknown) for her SHERMAN visit now at 33+ 6 weeks (unknown) (no (unknown) (unknown) Brittany presents (units ( unknown) date) today with her 3 unknown) kids for a routine OB visit at 24w5d. She (unknown) (no (unknown) (unknown) Live with someone (units (unknown) date) with TB or exposed unknown) to TB: No (unknown) (no (unknown) (unknown) Loc: [facility] (units (unkno wn) date) unknown) (unknown) (no (unknown) (unknown) [id number] (units (unk nown) date) unknown) (unknown) (no (unknown) (unknown) Marital status: (units (unknown) date) unknown) (unknown) (no (unknown) (unknown) Medical History (units (unknown) date) (Updated 10/18/22 unknown) @ 13:49 by Glen Ojeda MD) (unknown) (no (unknown) (unknown) Medications (units (un known) date) unknown) (unknown) (no (unknown) (unknown) Mental health (units ( unknown) date) problem unknown) (unknown) (no (unknown) (unknown) Migraine (units (unkno wn) date) headaches unknown) (unknown) (no (unknown) (unknown) Mother Depression (units (unknown) date) unknown) (unknown) (no (unknown) (unknown) N No no 146 15 (units (unknown) date) N/A absent 4 wks unknown) (unknown) (no (unknown) (unknown) N No no 168 11 (units (unknown) date) N/A absent unknown) long/closed AGA (unknown) (no (unknown) (unknown) N Yes no 143 32 (units (unknown) date) Breech absent HUNTER unknown) 20.14cm (unknown) (no (unknown) (unknown) Nearsightedness (units (unknown) date) unknown) (unknown) (no (unknown) (unknown) Notes (units (unkno wn) date) unknown) (unknown) (no (unknown) (unknown) Number of Living (units (unknown) date) Children 3 unknown) (unknown) (no (unknown) (unknown) Number of (units (unkn own) date) fetuses:: Single unknown) (unknown) (no (unknown) (unknown) Nutrition and (units ( unknown) date) weight gain unknown) counseling: special diet: discussed (unknown) (no (unknown) (unknown) OB Office Visit (units (unknown) date) unknown) (unknown) (no (unknown) (unknown) OB Visit Log (units (u nknown) date) unknown) (unknown) (no (unknown) (unknown) OB check (units (unkno wn) date) unknown) (unknown) (no (unknown) (unknown) Obesity (units (unkno wn) date) unknown) (unknown) (no (unknown) (unknown) On control (units (unknown) date) at conception?: No unknown) (unknown) (no (unknown) (unknown) PFSH (units (unkno wn) date) unknown) (unknown) (no (unknown) (unknown) PTSD (units (unkno wn) date) (post-traumatic unknown) stress disorder) (-1999) (unknown) (no (unknown) (unknown) Painful menstrual (units (unknown) date) periods () unknown) (unknown) (no (unknown) (unknown) Pap performed?: (units (unknown) date) No unknown) (unknown) (no (unknown) (unknown) Para 3 (units (unkno wn) date) Spontaneous unknown) abortions 1 (unknown) (no (unknown) (unknown) Partner history (units (unknown) date) of STD: denies hx unknown) (unknown) (no (unknown) (unknown) Partner history (units (unknown) date) of genital herpes: unknown) No (unknown) (no (unknown) (unknown) Partner: [facility] (units (unknown) date) [place] unknown) (unknown) (no (unknown) (unknown) Past Pregnancies (units (unknown) date) unknown) (unknown) (no (unknown) (unknown) Patient presents (units (unknown) date) accompanied by her unknown) children for routine visit at (unknown) (no (unknown) (unknown) Patient presents (units (unknown) date) for a new OB visit unknown) at 11 weeks gestation. She has had (unknown) (no (unknown) (unknown) Patient presents (units (unknown) date) for a routine unknown) visit at 15 weeks gestation. Cell (unknown) (no (unknown) (unknown) Patient presents (units (unknown) date) for a routine unknown) visit at 19 weeks gestation. She (unknown) (no (unknown) (unknown) Patient presents (units (unknown) date) for a routine unknown) visit at 28 weeks gestation. 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: (units ( unknown) date) Pediatric unknown) [facility] (unknown) (no (unknown) (unknown) Personal history (units (unknown) date) of STD: denies hx unknown) (unknown) (no (unknown) (unknown) Personal history (units (unknown) date) of genital herpes: unknown) No (unknown) (no (unknown) (unknown) Planned repeat (units (unknown) date) C/S, 11/24/22 unknown) (unknown) (no (unknown) (unknown) Polyhydramnios (units (unknown) date) unknown) (unknown) (no (unknown) (unknown) Position Sitting (units (unknown) date) unknown) (unknown) (no (unknown) (unknown) Postive screening (units (unknown) date) CF (In scans) unknown) (unknown) (no (unknown) (unknown) (units (unk nown) date) depression unknown) (unknown) (no (unknown) (unknown) History (units (unknown) date) unknown) (unknown) (no (unknown) (unknown) type:: (units (unknown) date) Other Normal unknown) (unknown) (no (unknown) (unknown) (units (unkno wn) date) Education unknown) (unknown) (no (unknown) (unknown) Initial (units (unknown) date) Assessment unknown) (unknown) (no (unknown) (unknown) Specific (units (unknown) date) Issues/Plans unknown) (unknown) (no (unknown) (unknown) Testing: (units (unknown) date) discussed unknown) (unknown) (no (unknown) (unknown) Visit (units (unknown) date) unknown) (unknown) (no (unknown) (unknown) (units (unkno wn) date) education packet: unknown) symptoms, Vitamins and iron, Diet and (unknown) (no (unknown) (unknown) Previous (units (unknown) date) section unknown) (unknown) (no (unknown) (unknown) Primary Care (units (u nknown) date) Provider: [facility] unknown) Health (unknown) (no (unknown) (unknown) Primary Ob (units (unk nown) date) Provider: unknown) Josefina Baumann (unknown) (no (unknown) (unknown) Prior (units (unkno wn) date) GBS-Infected unknown) child: No (unknown) (no (unknown) (unknown) [place] (units (unk nown) date) [place] 4 unknown) (unknown) (no (unknown) (unknown) Providers (units (unkn own) date) unknown) (unknown) (no (unknown) (unknown) RPR pos, TPA (units (u nknown) date) negative unknown) (unknown) (no (unknown) (unknown) Rash or viral (units ( unknown) date) illness since last unknown) menstrual period: Yes (minor head cold) (unknown) (no (unknown) (unknown) Reason For Visit (units (unknown) date) unknown) (unknown) (no (unknown) (unknown) Recent travel (units ( unknown) date) outside of unknown) country?: No (unknown) (no (unknown) (unknown) Recurrent (units (unkn own) date) loss or unknown) a stillbirth: No (unknown) (no (unknown) (unknown) Repeat (units (unknown) date) section with unknown) bilateral salpingectomy (unknown) (no (unknown) (unknown) Reports Other (units ( unknown) date) (Older son unknown) undergoing genetic workup for currently unidentified (unknown) (no (unknown) (unknown) 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 unknown) (unknown) (no (unknown) (unknown) Safety (units (unkno wn) date) unknown) (unknown) (no (unknown) (unknown) Sauna/hot tub (units ( unknown) date) use, Dental care, unknown) Marijuana use, Travel and Influenza vaccine (no (unknown) (no (unknown) (unknown) Signed By: (units (unk nown) date) unknown) (unknown) (no (unknown) (unknown) Smoking Status: (units (unknown) date) Former smoker unknown) (Quit-2020) (unknown) (no (unknown) (unknown) Social History (units (unknown) date) unknown) (unknown) (no (unknown) (unknown) Son Hearing loss (units (unknown) date) unknown) (unknown) (no (unknown) (unknown) Son undergoing (units (unknown) date) workup at unknown) [facility] for possible genetic anomaly (unknown) (no (unknown) (unknown) Support (units (unkno wn) date) Person(s):: [facility] unknown) (unknown) (no (unknown) (unknown) Surgical History (units (unknown) date) (Updated 07/12/22 unknown) @ 15:10 by Josefina Baumann MD) (unknown) (no (unknown) (unknown) Surrogate (units (unkn own) date) ?: no unknown) (unknown) (no (unknown) (unknown) Symptoms since (units (unknown) date) LMP: Reports unknown) amenorrhea, nausea, fatigue, urinary frequency, (unknown) (no (unknown) (unknown) TR Yes no 138 30 (units (unknown) date) Breech absent AGA unknown) 29w2d (unknown) (no (unknown) (unknown) TR Yes no 143 26 (units (unknown) date) N/A absent 4 wks unknown) (unknown) (no (unknown) (unknown) TR Yes no 144 21 (units (unknown) date) N/A absent 4 wks unknown) (unknown) (no (unknown) (unknown) TR Yes no 148 36 (units (unknown) date) Vertex absent HUNTER unknown) 23.99 c (unknown) (no (unknown) (unknown) TSH. Discussed (units (unknown) date) TDAP vaccination unknown) nv. She had questions regarding anesthesia (unknown) (no (unknown) (unknown) Tdap, declines (units (unknown) date) flu unknown) (unknown) (no (unknown) (unknown) Teratogen (units (unkn own) date) Exposures since unknown) LMP/Conception: Denies prescription medications, (unknown) (no (unknown) (unknown) Testing Education (units (unknown) date) unknown) (unknown) (no (unknown) (unknown) Testing education (units (unknown) date) completed: group B unknown) strep, Spina bifida testing and Cell Free (unknown) (no (unknown) (unknown) This note may (units ( unknown) date) have been all or unknown) partially generated using voice recognition (unknown) (no (unknown) (unknown) 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 [place] (unknown) (no (unknown) (unknown) Tobacco + (units (unkn own) date) Substance Use unknown) (unknown) (no (unknown) (unknown) Tobacco Status (units (unknown) date) unknown) (unknown) (no (unknown) (unknown) Trimester:: 3rd (units (unknown) date) Trimester unknown) (28wks-Del) (unknown) (no (unknown) (unknown) Type(s) of (units (unk nown) date) exercise: walking unknown) (unknown) (no (unknown) (unknown) UProtein Movement (units (unknown) date) PreLabor FHR Fndl unknown) Ht Pres Edema Cerv Exam US/Comment Next Appt (unknown) (no (unknown) (unknown) Ultrasound (units (unk nown) date) performed?: Yes unknown) (unknown) (no (unknown) (unknown) Varicella/chicken (units (unknown) date) pox status: unknown) immunized (unknown) (no (unknown) (unknown) Visit Date: (units (un known) date) 05/13/22 Last unknown) Updated by: Josefina Baumann MD (unknown) (no (unknown) (unknown) Visit Date: (units (un known) date) 06/09/22 Last unknown) Updated by: Josefina Baumann MD (unknown) (no (unknown) (unknown) Visit Date: (units (un known) date) 07/12/22 Last unknown) Updated by: Josefina Baumann MD (unknown) (no (unknown) (unknown) Visit Date: (units (un known) date) 08/15/22 Last unknown) Updated by: Anita Perez P.A-C (unknown) (no (unknown) (unknown) Visit Date: (units (un known) date) 09/13/22 Last unknown) Updated by: Josefina Baumann MD (unknown) (no (unknown) (unknown) Visit Date: (units (un known) date) 10/04/22 Last unknown) Updated by: Josefina Baumann MD (unknown) (no (unknown) (unknown) Visit Date: (units (un known) date) 10/18/22 Last unknown) Updated by: Glen Ojeda MD (unknown) (no (unknown) (unknown) Visit Reasons: OB (units (unknown) date) Check w/HUNTER unknown) (unknown) (no (unknown) (unknown) Vitals (units (unkno wn) date) unknown) (unknown) (no (unknown) (unknown) WG (units (unkno wn) date) unknown) (unknown) (no (unknown) (unknown) Weeks gestation:: (units (unknown) date) 35 unknown) (unknown) (no (unknown) (unknown) Weight 293 lb (units ( unknown) date) unknown) (unknown) (no (unknown) (unknown) [place] teeth (units (u nknown) date) extracted unknown) (unknown) (no (unknown) (unknown) Would like (units (unk nown) date) referral unknown) to [facility] grade breast pump at (unknown) (no (unknown) (unknown) Yes no 161 40 (units ( unknown) date) Vertex absent HUNTER unknown) 18.54 cm (unknown) (no (unknown) (unknown) Zika virus (units (unk nown) date) exposure: No unknown) (unknown) (no (unknown) (unknown) additional social (units (unknown) date) history: unknown) Difficulty other children. Would (unknown) (no (unknown) (unknown) alcohol intake: (units (unknown) date) former unknown) (unknown) (no (unknown) (unknown) anyone in either (units (unknown) date) family with: unknown) (unknown) (no (unknown) (unknown) attempted, unable (units (unknown) date) other Lavelle unknown) (unknown) (no (unknown) (unknown) azithromycin 250 (units (unknown) date) mg tablet See Rx unknown) Instructions PO .COMPLEX #6 tabs 10/07/22 [Rx (unknown) (no (unknown) (unknown) because she has (units (unknown) date) had difficult unknown) spinals with all 3 of her deliveries. (unknown) (no (unknown) (unknown) bleeding. No (units (u nknown) date) regular unknown) contractions. On ultrasound: Breech presentation. 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 (units (unkno wn) date) unknown) (unknown) (no (unknown) (unknown) delivery. (units (unkn own) date) unknown) (unknown) (no (unknown) (unknown) described, visit (units (unknown) date) schedule reviewed, unknown) ultrasounds policy reviewed, coverage 24 (unknown) (no (unknown) (unknown) discussed, (units (unk nown) date) tuberculosis unknown) exposure discussed, CMV discussed, Toxoplasmosis (unknown) (no (unknown) (unknown) do you feel safe (units (unknown) date) at home: Yes unknown) (unknown) (no (unknown) (unknown) during the past (units (unknown) date) year weight has: unknown) other (wide fluctuations since last ) (unknown) (no (unknown) (unknown) education level: (units (unknown) date) vocational (some unknown) college, certificate programs) (unknown) (no (unknown) (unknown) erm [place] (units (u nknown) date) unknown) (unknown) (no (unknown) (unknown) executed today. (units (unknown) date) Labor precautions unknown) reviewed and follow-up SHERMAN w/ HUNTER will be in (unknown) (no (unknown) (unknown) f/u limited (units (un known) date) anatomy views at unknown) 28wk visit with Dr. Baumann. Ordered OGTT, CBC and (unknown) (no (unknown) (unknown) failure to (units (unk nown) date) progress Rosey unknown) (unknown) (no (unknown) (unknown) felt rare (units (unknown) date) movement. No unknown) leakage of fluid or vaginal bleeding. Plan: (unknown) (no (unknown) (unknown) fetoprotein (units (un known) date) ordered. Warning unknown) signs reviewed. Follow-up in 5 weeks. kag (unknown) (no (unknown) (unknown) fire extinguisher (units (unknown) date) in home: Yes unknown) (unknown) (no (unknown) (unknown) firearms in home: (units (unknown) date) Yes firearms unknown) unloaded and locked: Yes (unknown) (no (unknown) (unknown) flaxseed Allergy (units (unknown) date) (Severe, Verified unknown) 11/01/22 11:31) (unknown) (no (unknown) (unknown) flu or covid (units (u nknown) date) vaccines received) unknown) (unknown) (no (unknown) (unknown) free DNA showed (units (unknown) date) normal female. She unknown) continues to have migraines several days a (unknown) (no (unknown) (unknown) from 2 weeks ago (units (unknown) date) and slightly above unknown) the normal range for this EGA. HHS form 687 (unknown) (no (unknown) (unknown) gestational age. (units (unknown) date) She is having a unknown) few [place] contractions but denies (unknown) (no (unknown) (unknown) grade breast pump (units (unknown) date) that she can have unknown) when she goes home from hospital after (unknown) (no (unknown) (unknown) had her 20 week (units (unknown) date) ultrasound today. unknown) Those results are not available. She has (unknown) (no (unknown) (unknown) had limited heart (units (unknown) date) and outflow tract unknown) views from her anatomy US. Plan 3D US and (unknown) (no (unknown) (unknown) have occurred. If (units (unknown) date) there are any unknown) questions, please contact the Medical Records (unknown) (no (unknown) (unknown) hours a day and (units (unknown) date) participation of unknown) father in care and office visits (unknown) (no (unknown) (unknown) household members: (units (unknown) date) spouse, family unknown) ([id number] and his 3 children (moving out (unknown) (no (unknown) (unknown) housing: house (units (unknown) date) unknown) (unknown) (no (unknown) (unknown) hydroxyzine HCl (units (unknown) date) 25 mg tablet 25 mg unknown) PO TID PRN anxiety #20 tabs 09/16/22 [Rx (unknown) (no (unknown) (unknown) in discharge. Her (units (unknown) date) baby remains unknown) active however. HUNTER today is slightly increased (unknown) (no (unknown) (unknown) is still having (units (unknown) date) occasional unknown) headaches. Good movement. No leakage of fluid (unknown) (no (unknown) (unknown) jw (units (unkno wn) date) unknown) (unknown) (no (unknown) (unknown) kag (units (unkno wn) date) unknown) (unknown) (no (unknown) (unknown) levothyroxine 137 (units (unknown) date) mcg tablet 137 mcg unknown) PO DAILY #30 tabs 10/17/22 [Rx Confirmed (unknown) (no (unknown) (unknown) lives (units (unkno wn) date) independently: Yes unknown) (unknown) (no (unknown) (unknown) m 2 wks (units (unkno wn) date) unknown) (unknown) (no (unknown) (unknown) magnesium 200 mg (units (unknown) date) tablet 200 mg PO unknown) DAILY 05/03/22 [History Confirmed 11/01/22] (unknown) (no (unknown) (unknown) marital status: (units (unknown) date) unknown) (unknown) (no (unknown) (unknown) may occur. (units (unk nown) date) Occasional unknown) wrong-word or 'sound-alike' substitutions may have (unknown) (no (unknown) (unknown) medication. No (units (unknown) date) vaginal bleeding. unknown) On ultrasound: Intrauterine gestational sac (unknown) (no (unknown) (unknown) migraines and (units ( unknown) date) these are getting unknown) a little better. She is using the prescribed (unknown) (no (unknown) (unknown) months other Iyla (units (unknown) date) unknown) (unknown) (no (unknown) (unknown) number of (units (unkn own) date) children: 3 unknown) (unknown) (no (unknown) (unknown) occasional 1 (units (u nknown) date) Percocet to treat unknown) these. Plan: 20 week ultrasound ordered. Alpha (unknown) (no (unknown) (unknown) occupational (units (u nknown) date) status: unemployed unknown) and previously employed (unknown) (no (unknown) (unknown) occurred due to (units (unknown) date) the inherent unknown) limitations of voice recognition software. Please (unknown) (no (unknown) (unknown) ondansetron 4 mg (units (unknown) date) disintegrating unknown) tablet 4 mg PO Q6H PRN nausea and vomiting #20 (unknown) (no (unknown) (unknown) or vaginal (units (unk nown) date) bleeding. On unknown) ultrasound: Breech presentation. AGA 29 weeks 2 days. (unknown) (no (unknown) (unknown) oxycodone 5 mg (units (unknown) date) tablet 5 mg PO Q6H unknown) PRN pain #10 tabs 10/12/22 [Rx Confirmed (unknown) (no (unknown) (unknown) pets and animals: (units (unknown) date) Yes (horses) unknown) (unknown) (no (unknown) (unknown) polyhydramnios (units (unknown) date) unknown) (unknown) (no (unknown) (unknown) precautions, (units (u nknown) date) Listeriosis unknown) prevention and Rubella Immunization (unknown) (no (unknown) (unknown) prenat.vits,alexey,m (units (unknown) date) on-wsvj-waknx 1 unknown) tab PO DAILY 04/22/22 [History Confirmed (unknown) (no (unknown) (unknown) read the note (units ( unknown) date) carefully and unknown) recognize, using context, where these substitutions (unknown) (no (unknown) (unknown) really like to (units (unknown) date) meet w/ IBCLC unknown) prior to delivery and would like Rx for hospital (unknown) (no (unknown) (unknown) regular uterine (units (unknown) date) contractions, unknown) bleeding, leakage of fluid per vagina, or change (unknown) (no (unknown) (unknown) reports good (units (u nknown) date) movement and unknown) denies VB, LOF, contractions and cramping. She (unknown) (no (unknown) (unknown) reviewed. 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 (units (unkn own) date) Although every unknown) effort is made to edit content, fountain brush assembler errors (unknown) (no (unknown) (unknown) soon)) and (units (unk nown) date) children unknown) (unknown) (no (unknown) (unknown) special [place]land (units ( unknown) date) needs: No unknown) (unknown) (no (unknown) (unknown) substance use (units (u nknown) date) type: marijuana unknown) (in the past, not recently and not while ) (unknown) (no (unknown) (unknown) tabs 05/17/22 [Rx (units (unknown) date) Confirmed unknown) 11/01/22] (unknown) (no (unknown) (unknown) term [place] (units ( unknown) date) Yonis unknown) (unknown) (no (unknown) (unknown) volume. The heart (units (unknown) date) and outflow tracts unknown) could not be visualized. Follow-up in 3 (unknown) (no (unknown) (unknown) water heater temp (units (unknown) date) set < 120 deg: Yes unknown) (unknown) (no (unknown) (unknown) week but they are (units (unknown) date) not lasting unknown) multiple days and not as intense. She is using an (unknown) (no (unknown) (unknown) weeks with repeat (units (unknown) date) ultrasound to unknown) check fluid. Warning signs reviewed. (unknown) (no (unknown) (unknown) weight gain, Fish (units (unknown) date) and mercury unknown) intake, Caffeine use, Exercise and activity, (unknown) (no (unknown) (unknown) well-balanced (units ( unknown) date) diet: daily or unknown) most days (unknown) (no (unknown) (unknown) with 11 weeks 3 (units (unknown) date) days. Left ovary unknown) is normal. Plan: Cell free DNA ordered. (unknown) (no (unknown) (unknown) with a fetus with (units (unknown) date) a crown-rump unknown) length measuring 4.63 cm. This is consistent (unknown) (no (unknown) (unknown) work/environmenta (units (unknown) date) l/hazards, Sexual unknown) activity, X-ray exposure, Medication use, (unknown) (no (unknown) (unknown) working smoke (units ( unknown) date) detector in home: unknown) Yes Result panel 164 (unknown) (no (unknown) (unknown) (no value) (units (unk nown) date) unknown) (unknown) (no (unknown) (unknown) 'syndrome';) (units (u nknown) date) unknown) (unknown) (no (unknown) (unknown) (+11 lb) 112/62 N (units (unknown) date) unknown) (unknown) (no (unknown) (unknown) (+13 lb) 118/68 N (units (unknown) date) unknown) (unknown) (no (unknown) (unknown) (+21 lb 7 oz) (units ( unknown) date) 98/68 N unknown) (unknown) (no (unknown) (unknown) (+27 lb) 110/70 N (units (unknown) date) unknown) (unknown) (no (unknown) (unknown) (+30 lb) 126/66 N (units (unknown) date) unknown) (unknown) (no (unknown) (unknown) (+34 lb) 104/68 N (units (unknown) date) unknown) (unknown) (no (unknown) (unknown) (+38 lb) 114/60 (units (unknown) date) unknown) (unknown) (no (unknown) (unknown) (+6 lb) 108/68 N (units (unknown) date) unknown) (unknown) (no (unknown) (unknown) Genetic (units (unkn own) date) Screening/Teratolo unknown) gy Counseling - Includes patient, baby's father, or (unknown) (no (unknown) (unknown) -?-?-?-?-?-?-?-?- (units (unknown) date) ?-?-?-? unknown) (unknown) (no (unknown) (unknown) 0.5 mL IM Left (units (unknown) date) Deltoid [id number] unknown) 05/03/23 [id number] SANOFI-PASTEUR (unknown) (no (unknown) (unknown) 01/24/14 41 17 7 (units (unknown) date) lb 1 oz Female unknown) live - full t (unknown) (no (unknown) (unknown) 02/19/21 39 7 lb (units (unknown) date) 12 oz Female live unknown) - full term (unknown) (no (unknown) (unknown) 05/13/22 (units (unkno wn) date) unknown) (unknown) (no (unknown) (unknown) 06/09/22 (units (unkno wn) date) unknown) (unknown) (no (unknown) (unknown) 06/16/15 38 7 lb (units (unknown) date) 13 oz Male unknown) live - full (unknown) (no (unknown) (unknown) 07/12/22 (units (unkno wn) date) unknown) (unknown) (no (unknown) (unknown) 08/15/22 (units (unkno wn) date) unknown) (unknown) (no (unknown) (unknown) 1 week (units (unkno wn) date) unknown) (unknown) (no (unknown) (unknown) 09/13/22 (units (unkno wn) date) unknown) (unknown) (no (unknown) (unknown) 10/04/22 (units (unkno wn) date) unknown) (unknown) (no (unknown) (unknown) 10/18/21 8 (units (unk nown) date) spontaneous unknown) (unknown) (no (unknown) (unknown) 10/18/22 (units (unkno wn) date) unknown) (unknown) (no (unknown) (unknown) 11:31 (units (unkno wn) date) unknown) (unknown) (no (unknown) (unknown) 11w 2d 261 lb (units ( unknown) date) unknown) (unknown) (no (unknown) (unknown) 11w3d 4 wks (units (un known) date) unknown) (unknown) (no (unknown) (unknown) 11/01/22 Single (units (unknown) date) Vaccine 06/25/21 unknown) (unknown) (no (unknown) (unknown) 11/01/22 (units (unkno wn) date) unknown) (unknown) (no (unknown) (unknown) 11/01/22] (units (unkn own) date) unknown) (unknown) (no (unknown) (unknown) 15w 1d 266 lb (units ( unknown) date) unknown) (unknown) (no (unknown) (unknown) 19w 6d 268 lb (units ( unknown) date) unknown) (unknown) (no (unknown) (unknown) 2 lb 15 oz. (units (un known) date) 55%ile. Placenta unknown) grade 0 and anterior. Normal amniotic fluid (unknown) (no (unknown) (unknown) 2 wees or as (units (u nknown) date) needed. unknown) (unknown) (no (unknown) (unknown) 2 wks (units (unkno wn) date) unknown) (unknown) (no (unknown) (unknown) 20.14 cm. Grade 0 (units (unknown) date) placenta. Plan: unknown) Follow-up in 2 weeks. Warning signs (unknown) (no (unknown) (unknown) 24w 5d 276 lb 7 (units (unknown) date) oz unknown) (unknown) (no (unknown) (unknown) 28w 6d 282 lb (units ( unknown) date) unknown) (unknown) (no (unknown) (unknown) 3 wks (units (unkno wn) date) unknown) (unknown) (no (unknown) (unknown) 31 weeks (units (unkno wn) date) gestation. Good unknown) movement. No leakage of fluid or vaginal (unknown) (no (unknown) (unknown) 31w 6d 285 lb (units ( unknown) date) unknown) (unknown) (no (unknown) (unknown) 33w 6d 289 lb (units ( unknown) date) unknown) (unknown) (no (unknown) (unknown) 35w 6d 293 lb (units ( unknown) date) unknown) (unknown) (no (unknown) (unknown) 5 wks (units (unkno wn) date) unknown) (unknown) (no (unknown) (unknown) ADHD (units (unkno wn) date) unknown) (unknown) (no (unknown) (unknown) Abnormal lab (units (u nknown) date) values 1st unknown) trimester: discussed (unknown) (no (unknown) (unknown) Add'l Plan (units (unk nown) date) Details unknown) (unknown) (no (unknown) (unknown) Additional (units (unk nown) date) Details:: 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 (unknown) (no (unknown) (unknown) Additional Social (units (unknown) date) History unknown) (unknown) (no (unknown) (unknown) Administered by: (units (unknown) date) Gi Culp MA unknown) on 11/01/22 14:04 (unknown) (no (unknown) (unknown) Age/Sex: 32 / F (units (unknown) date) Date of Service: unknown) (unknown) (no (unknown) (unknown) Alcoholism (units (unk nown) date) unknown) (unknown) (no (unknown) (unknown) Allergies (units (unkn own) date) unknown) (unknown) (no (unknown) (unknown) [place] (units ( unknown) date) [id number] unknown) (unknown) (no (unknown) (unknown) Anaphylaxis (units (un known) date) unknown) (unknown) (no (unknown) (unknown) Anesthesia (units (unk nown) date) unknown) (unknown) (no (unknown) (unknown) Aneuploidy (units (unk nown) date) Screening Offered: unknown) Accepted (Would like CFDNA if qualified) (unknown) (no (unknown) (unknown) Anticipated (units (un known) date) course of unknown) care: discussed (unknown) (no (unknown) (unknown) Assessment and (units (unknown) date) Plan unknown) (unknown) (no (unknown) (unknown) Attending Dr: (units ( unknown) date) Josefina Baumnan unknown) (unknown) (no (unknown) (unknown) BMI 50.3 (units (unkno wn) date) unknown) (unknown) (no (unknown) (unknown) BP 114/60 (units (unkn own) date) unknown) (unknown) (no (unknown) (unknown) [place] 2 months (units (unknown) date) post-dates unknown) induction (unknown) (no (unknown) (unknown) (units (unkno wn) date) Plan/Preferences unknown) (unknown) (no (unknown) (unknown) Planning (units (unknown) date) unknown) (unknown) (no (unknown) (unknown) Blood Pressure (units (unknown) date) Location Rt unknown) brachial (unknown) (no (unknown) (unknown) Blood (units (unkno wn) date) transfusions?: yes unknown) (Never had but would accept ) (unknown) (no (unknown) (unknown) Breastfeed Preg (units (unknown) date) Comp Name unknown) (unknown) (no (unknown) (unknown) Carpal tunnel (units ( unknown) date) syndrome () unknown) (unknown) (no (unknown) (unknown) Children's (units (unk nown) date) unknown) (unknown) (no (unknown) (unknown) Confirmed (units (unkn own) date) 11/01/22] unknown) (unknown) (no (unknown) (unknown) Current Estimate (units (unknown) date) 11/30/22 LMP unknown) (Certain) 35w 6d (unknown) (no (unknown) (unknown) Current (units (unknown) date) History unknown) (unknown) (no (unknown) (unknown) DNA (units (unkno wn) date) unknown) (unknown) (no (unknown) (unknown) : 1990 (units (unknown) date) Acct:[id number] unknown) (unknown) (no (unknown) (unknown) Date of positive (units (unknown) date) home unknown) test: 03/25/22 (unknown) (no (unknown) (unknown) Date (units (unkno wn) date) unknown) (unknown) (no (unknown) (unknown) Daughter Juvenile (units (unknown) date) arthritis unknown) (unknown) (no (unknown) (unknown) Del. Date (units (unkn own) date) GA/Weeks Labor unknown) Lgth Wt Sex Route Outcome Anesthesia Place (unknown) (no (unknown) (unknown) Delivery Date: (units (unknown) date) 02/19/21 Last unknown) Updated by: Susi Petersen RN (unknown) (no (unknown) (unknown) Delivery Date: (units (unknown) date) 06/16/15 Last unknown) Updated by: Susi Petersen RN (unknown) (no (unknown) (unknown) Delv (units (unkno wn) date) unknown) (unknown) (no (unknown) (unknown) Denies other (units (u nknown) date) unknown) (unknown) (no (unknown) (unknown) Denies over the (units (unknown) date) counter unknown) medications, Denies alcohol, Denies illicit drugs and (unknown) (no (unknown) (unknown) Depression (units (unk nown) date) () unknown) (unknown) (no (unknown) (unknown) Depression: (units (un known) date) discussed unknown) (unknown) (no (unknown) (unknown) Dept at (units (unkno wn) date) . unknown) (unknown) (no (unknown) (unknown) Diet and Exercise (units (unknown) date) unknown) (unknown) (no (unknown) (unknown) Discussed (units (unkno wn) date) anesthesia, but unknown) encouraged Brittany to discuss this more in depth with (unknown) (no (unknown) (unknown) Documented By: (units (unknown) date) Josefina Baumann unknownRichard FINE 11/01/22 1130 (unknown) (no (unknown) (unknown) Dose Route Admin (units (unknown) date) Location Lot unknown) Number Expiration Date NDC (unknown) (no (unknown) (unknown) Draft (units (unkno wn) date) unknown) (unknown) (no (unknown) (unknown) ECTOR Calculator (units (unknown) date) unknown) (unknown) (no (unknown) (unknown) EGA Weight BP (units ( unknown) date) UGlucose unknown) (unknown) (no (unknown) (unknown) Eligibility (units (un known) date) Eligibility Date unknown) Funding Source (unknown) (no (unknown) (unknown) Estimated (units (unkn own) date) Delivery Date unknown) Method Current (unknown) (no (unknown) (unknown) Expected Delivery (units (unknown) date) Route/Plan unknown) (unknown) (no (unknown) (unknown) Family History (units (unknown) date) (Updated 06/08/22 unknown) @ 21:23 by Aurora Arevalo) (unknown) (no (unknown) (unknown) Father Diabetes (units (unknown) date) mellitus unknown) (unknown) (no (unknown) (unknown) Father of Baby: (units (unknown) date) same unknown) (unknown) (no (unknown) (unknown) [facility] ([facility] unknown) (unknown) (no (unknown) (unknown) First Trimester (units (unknown) date) Education unknown) Checklist (unknown) (no (unknown) (unknown) [place] Today Z23 (units (unknown) date) - Encounter for unknown) immunization (unknown) (no (unknown) (unknown) Follow-up in 4 (units (unknown) date) weeks. Warning unknown) signs reviewed. kag (unknown) (no (unknown) (unknown) Follow-up in 4 (units (unknown) date) weeks. We will unknown) call with anatomic survey results. (unknown) (no (unknown) (unknown) Foot pain (-2020) (units (unknown) date) unknown) (unknown) (no (unknown) (unknown) (units (unkno wn) date) unknown) (unknown) (no (unknown) (unknown) Garde at her next (units (unknown) date) visit. f/u in 4 unknown) weeks. (unknown) (no (unknown) (unknown) Genetic Screening (units (unknown) date) + Counseling unknown) (unknown) (no (unknown) (unknown) Genetic Screening (units (unknown) date) unknown) (unknown) (no (unknown) (unknown) 5 (units (unkn own) date) Multiple births unknown) (unknown) (no (unknown) (unknown) HIV risk (units (unkno wn) date) evaluation: low unknown) risk (unknown) (no (unknown) (unknown) Health Center (units ( unknown) date) Education unknown) (unknown) (no (unknown) (unknown) Health center (units ( unknown) date) information: unknown) nature of practice discussed, personnel (unknown) (no (unknown) (unknown) Heavy menstrual (units (unknown) date) period (-2020) unknown) (unknown) (no (unknown) (unknown) Height 5 ft 4 in (units (unknown) date) unknown) (unknown) (no (unknown) (unknown) Hepatitis C risk (units (unknown) date) evaluation: low unknown) risk (unknown) (no (unknown) (unknown) History of (units (unk nown) date) Hepatitis B: No unknown) (unknown) (no (unknown) (unknown) History of (units (unk nown) date) Hepatitis C: No unknown) (unknown) (no (unknown) (unknown) History of (units (unk nown) date) surgery unknown) (unknown) (no (unknown) (unknown) Hospital: (units (u nknown) date) unknown) (unknown) (no (unknown) (unknown) [facility]. (units (unknown) date) unknown) (unknown) (no (unknown) (unknown) Hx # (units (u nknown) date) Pregnancies unknown) Elective abortions (unknown) (no (unknown) (unknown) Hx # Term (units (unkn own) date) Pregnancies 3 unknown) Ectopic pregnancies (unknown) (no (unknown) (unknown) Hx severe (units (unkn own) date) polyhydramnios unknown) (unknown) (no (unknown) (unknown) Hypothyroid (units (un known) date) unknown) (unknown) (no (unknown) (unknown) Immunizations (units ( unknown) date) unknown) (unknown) (no (unknown) (unknown) will be (units (unknown) date) adopted?: no unknown) (unknown) (no (unknown) (unknown) Infection History (units (unknown) date) unknown) (unknown) (no (unknown) (unknown) Infectious (units (unk nown) date) Disease Education unknown) (unknown) (no (unknown) (unknown) Infectious (units (unk nown) date) disease exposure: unknown) chicken pox immunity discussed, hepatitis risk (unknown) (no (unknown) (unknown) Initial Weight: (units (unknown) date) 255 lb unknown) (unknown) (no (unknown) (unknown) Initials (units (unkno wn) date) unknown) (unknown) (no (unknown) (unknown) Intake Clinical (units (unknown) date) Staff unknown) (unknown) (no (unknown) (unknown) Intake Note: (units (u nknown) date) unknown) (unknown) (no (unknown) (unknown) Intake performed (units (unknown) date) by: Gi Culp unknown) (unknown) (no (unknown) (unknown) Intake (units (unkno wn) date) unknown) (unknown) (no (unknown) (unknown) LM (units (unkno wn) date) unknown) (unknown) (no (unknown) (unknown) Brittany and her (units (u nknown) date) children present unknown) for her SHERMAN visit now at 33+ 6 weeks (unknown) (no (unknown) (unknown) Brittany presents (units ( unknown) date) today with her 3 unknown) kids for a routine OB visit at 24w5d. She (unknown) (no (unknown) (unknown) Live with someone (units (unknown) date) with TB or exposed unknown) to TB: No (unknown) (no (unknown) (unknown) Loc: [facility] (units (unkno wn) date) unknown) (unknown) (no (unknown) (unknown) [id number] (units (unk nown) date) unknown) (unknown) (no (unknown) (unknown) [place] [employer] (units (u nknown) date) unknown) (unknown) (no (unknown) (unknown) Marital status: (units (unknown) date) unknown) (unknown) (no (unknown) (unknown) Medical History (units (unknown) date) (Updated 10/18/22 unknown) @ 13:49 by Glen Ojeda MD) (unknown) (no (unknown) (unknown) Medications (units (un known) date) unknown) (unknown) (no (unknown) (unknown) Mental health (units ( unknown) date) problem unknown) (unknown) (no (unknown) (unknown) Migraine (units (unkno wn) date) headaches unknown) (unknown) (no (unknown) (unknown) Mother Depression (units (unknown) date) unknown) (unknown) (no (unknown) (unknown) N No no 146 15 (units (unknown) date) N/A absent 4 wks unknown) (unknown) (no (unknown) (unknown) N No no 168 11 (units (unknown) date) N/A absent unknown) long/closed AGA (unknown) (no (unknown) (unknown) N Yes no 143 32 (units (unknown) date) Breech absent HUNTER unknown) 20.14cm (unknown) (no (unknown) (unknown) Nearsightedness (units (unknown) date) unknown) (unknown) (no (unknown) (unknown) Not VFC Eligible (units (unknown) date) 11/01/22 Private unknown) Funds (unknown) (no (unknown) (unknown) Notes (units (unkno wn) date) unknown) (unknown) (no (unknown) (unknown) Number of Living (units (unknown) date) Children 3 unknown) (unknown) (no (unknown) (unknown) Number of (units (unkn own) date) fetuses:: Single unknown) (unknown) (no (unknown) (unknown) Nutrition and (units ( unknown) date) weight gain unknown) counseling: special diet: discussed (unknown) (no (unknown) (unknown) OB Office Visit (units (unknown) date) unknown) (unknown) (no (unknown) (unknown) OB Visit Log (units (u nknown) date) unknown) (unknown) (no (unknown) (unknown) OB check (units (unkno wn) date) unknown) (unknown) (no (unknown) (unknown) Obesity (units (unkno wn) date) unknown) (unknown) (no (unknown) (unknown) On control (units (unknown) date) at conception?: No unknown) (unknown) (no (unknown) (unknown) Orders (units (unkno wn) date) unknown) (unknown) (no (unknown) (unknown) Orders: (units (unkno wn) date) unknown) (unknown) (no (unknown) (unknown) PFSH (units (unkno wn) date) unknown) (unknown) (no (unknown) (unknown) PTSD (units (unkno wn) date) (post-traumatic unknown) stress disorder) (-1999) (unknown) (no (unknown) (unknown) Painful menstrual (units (unknown) date) periods () unknown) (unknown) (no (unknown) (unknown) Pap performed?: (units (unknown) date) No unknown) (unknown) (no (unknown) (unknown) Para 3 (units (unkno wn) date) Spontaneous unknown) abortions 1 (unknown) (no (unknown) (unknown) Partner history (units (unknown) date) of STD: denies hx unknown) (unknown) (no (unknown) (unknown) Partner history (units (unknown) date) of genital herpes: unknown) No (unknown) (no (unknown) (unknown) Partner: [facility] (units (unknown) date) White unknown) (unknown) (no (unknown) (unknown) Past Pregnancies (units (unknown) date) unknown) (unknown) (no (unknown) (unknown) Patient presents (units (unknown) date) accompanied by her unknown) children for routine visit at (unknown) (no (unknown) (unknown) Patient presents (units (unknown) date) for a new OB visit unknown) at 11 weeks gestation. She has had (unknown) (no (unknown) (unknown) Patient presents (units (unknown) date) for a routine unknown) visit at 15 weeks gestation. Cell (unknown) (no (unknown) (unknown) Patient presents (units (unknown) date) for a routine unknown) visit at 19 weeks gestation. She (unknown) (no (unknown) (unknown) Patient presents (units (unknown) date) for a routine unknown) visit at 28 weeks gestation. 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: (units ( unknown) date) Pediatric unknown) [facility] (unknown) (no (unknown) (unknown) Performing (units (unk nown) date) Provider: Josefina unknown) Angella Baumann MD (unknown) (no (unknown) (unknown) Personal history (units (unknown) date) of STD: denies hx unknown) (unknown) (no (unknown) (unknown) Personal history (units (unknown) date) of genital herpes: unknown) No (unknown) (no (unknown) (unknown) Planned repeat (units (unknown) date) C/S, 11/24/22 unknown) (unknown) (no (unknown) (unknown) Polyhydramnios (units (unknown) date) unknown) (unknown) (no (unknown) (unknown) Position Sitting (units (unknown) date) unknown) (unknown) (no (unknown) (unknown) Postive screening (units (unknown) date) CF (In scans) unknown) (unknown) (no (unknown) (unknown) (units (unk nown) date) depression unknown) (unknown) (no (unknown) (unknown) History (units (unknown) date) unknown) (unknown) (no (unknown) (unknown) type:: (units (unknown) date) Other Normal unknown) (unknown) (no (unknown) (unknown) (units (unkno wn) date) Education unknown) (unknown) (no (unknown) (unknown) Initial (units (unknown) date) Assessment unknown) (unknown) (no (unknown) (unknown) Specific (units (unknown) date) Issues/Plans unknown) (unknown) (no (unknown) (unknown) Testing: (units (unknown) date) discussed unknown) (unknown) (no (unknown) (unknown) Visit (units (unknown) date) unknown) (unknown) (no (unknown) (unknown) (units (unkno wn) date) education packet: unknown) symptoms, Vitamins and iron, Diet and (unknown) (no (unknown) (unknown) Previous (units (unknown) date) section unknown) (unknown) (no (unknown) (unknown) Primary Care (units (u nknown) date) Provider: [facility] unknown) [facility] (unknown) (no (unknown) (unknown) Primary Ob (units (unk nown) date) Provider: unknown) Josefina Bauamnn (unknown) (no (unknown) (unknown) Prior (units (unkno wn) date) GBS-Infected unknown) child: No (unknown) (no (unknown) (unknown) [place] (units (unk nown) date) [place] 4 unknown) (unknown) (no (unknown) (unknown) Providers (units (unkn own) date) unknown) (unknown) (no (unknown) (unknown) RPR pos, TPA (units (u nknown) date) negative unknown) (unknown) (no (unknown) (unknown) Rash or viral (units ( unknown) date) illness since last unknown) menstrual period: Yes (minor head cold) (unknown) (no (unknown) (unknown) Reason For Visit (units (unknown) date) unknown) (unknown) (no (unknown) (unknown) Recent travel (units ( unknown) date) outside of unknown) country?: No (unknown) (no (unknown) (unknown) Recurrent (units (unkn own) date) loss or unknown) a stillbirth: No (unknown) (no (unknown) (unknown) Repeat (units (unknown) date) section with unknown) bilateral salpingectomy (unknown) (no (unknown) (unknown) Reports Other (units ( unknown) date) (Older son unknown) undergoing genetic workup for currently unidentified (unknown) (no (unknown) (unknown) 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 unknown) (unknown) (no (unknown) (unknown) Safety (units (unkno wn) date) unknown) (unknown) (no (unknown) (unknown) Sauna/hot tub (units ( unknown) date) use, Dental care, unknown) Marijuana use, Travel and Influenza vaccine (no (unknown) (no (unknown) (unknown) Signed By: (units (unk nown) date) unknown) (unknown) (no (unknown) (unknown) Smoking Status: (units (unknown) date) Former smoker unknown) (Quit-2020) (unknown) (no (unknown) (unknown) Social History (units (unknown) date) unknown) (unknown) (no (unknown) (unknown) Son Hearing loss (units (unknown) date) unknown) (unknown) (no (unknown) (unknown) Son undergoing (units (unknown) date) workup [facility] unknown[facility] (unknown) (no (unknown) (unknown) Strep Grp B PCR (units (unknown) date) Today Z34.83 - unknown) Encounter for supervision of other normal (unknown) (no (unknown) (unknown) Support (units (unkno wn) date) Person(s):: [facility] unknown) (unknown) (no (unknown) (unknown) Surgical History (units (unknown) date) (Updated 07/12/22 unknown) @ 15:10 by Josefina Baumann MD) (unknown) (no (unknown) (unknown) Surrogate (units (unkn own) date) ?: no unknown) (unknown) (no (unknown) (unknown) Symptoms since (units (unknown) date) LMP: Reports unknown) amenorrhea, nausea, fatigue, urinary frequency, (unknown) (no (unknown) (unknown) TR Yes no 138 30 (units (unknown) date) Breech absent AGA unknown) 29w2d (unknown) (no (unknown) (unknown) TR Yes no 143 26 (units (unknown) date) N/A absent 4 wks unknown) (unknown) (no (unknown) (unknown) TR Yes no 144 21 (units (unknown) date) N/A absent 4 wks unknown) (unknown) (no (unknown) (unknown) TR Yes no 148 36 (units (unknown) date) Vertex absent HUNTER unknown) 23.99 c (unknown) (no (unknown) (unknown) TSH. Discussed (units (unknown) date) TDAP vaccination unknown) nv. She had questions regarding anesthesia (unknown) (no (unknown) (unknown) Tdap, declines (units (unknown) date) flu unknown) (unknown) (no (unknown) (unknown) Teratogen (units (unkn own) date) Exposures since unknown) LMP/Conception: Denies prescription medications, (unknown) (no (unknown) (unknown) Testing Education (units (unknown) date) unknown) (unknown) (no (unknown) (unknown) Testing education (units (unknown) date) completed: group B unknown) strep, Spina bifida testing and Cell Free (unknown) (no (unknown) (unknown) This note may (units ( unknown) date) have been all or unknown) partially generated using voice recognition (unknown) (no (unknown) (unknown) 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 [place] (unknown) (no (unknown) (unknown) Tobacco + (units (unkn own) date) Substance Use unknown) (unknown) (no (unknown) (unknown) Tobacco Status (units (unknown) date) unknown) (unknown) (no (unknown) (unknown) Trimester:: 3rd (units (unknown) date) Trimester unknown) (28wks-Del) (unknown) (no (unknown) (unknown) Type(s) of (units (unk nown) date) exercise: walking unknown) (unknown) (no (unknown) (unknown) UProtein Movement (units (unknown) date) PreLabor FHR Fndl unknown) Ht Pres Edema Cerv Exam US/Comment Next Appt (unknown) (no (unknown) (unknown) Ultrasound (units (unk nown) date) performed?: Yes unknown) (unknown) (no (unknown) (unknown) VIS Given Date (units (unknown) date) VIS Provided VIS unknown) Publication Date (unknown) (no (unknown) (unknown) Varicella/chicken (units (unknown) date) pox status: unknown) immunized (unknown) (no (unknown) (unknown) Visit Date: (units (un known) date) 05/13/22 Last unknown) Updated by: Josefina Baumann MD (unknown) (no (unknown) (unknown) Visit Date: (units (un known) date) 06/09/22 Last unknown) Updated by: Josefina Baumann MD (unknown) (no (unknown) (unknown) Visit Date: (units (un known) date) 07/12/22 Last unknown) Updated by: Josefina Baumann MD (unknown) (no (unknown) (unknown) Visit Date: (units (un known) date) 08/15/22 Last unknown) Updated by: Anita Perez P.A-C (unknown) (no (unknown) (unknown) Visit Date: (units (un known) date) 09/13/22 Last unknown) Updated by: Josefina Baumann MD (unknown) (no (unknown) (unknown) Visit Date: (units (un known) date) 10/04/22 Last unknown) Updated by: Josefina Baumann MD (unknown) (no (unknown) (unknown) Visit Date: (units (un known) date) 10/18/22 Last unknown) Updated by: Glen Ojeda MD (unknown) (no (unknown) (unknown) Visit Reasons: OB (units (unknown) date) Check w/HUNTER unknown) (unknown) (no (unknown) (unknown) Vitals (units (unkno wn) date) unknown) (unknown) (no (unknown) (unknown) WG (units (unkno wn) date) unknown) (unknown) (no (unknown) (unknown) Weeks gestation:: (units (unknown) date) 35 unknown) (unknown) (no (unknown) (unknown) Weight 293 lb (units ( unknown) date) unknown) (unknown) (no (unknown) (unknown) [place] teeth (units (u nknown) date) extracted unknown) (unknown) (no (unknown) (unknown) Would like (units (unk nown) date) [facility] unknown[facility] breast pump at (unknown) (no (unknown) (unknown) Yes no 161 40 (units ( unknown) date) Vertex absent HUNTER unknown) 18.54 cm (unknown) (no (unknown) (unknown) Zika virus (units (unk nown) date) exposure: No unknown) (unknown) (no (unknown) (unknown) additional social (units (unknown) date) history: unknown) Difficulty other children. Would (unknown) (no (unknown) (unknown) alcohol intake: (units (unknown) date) former unknown) (unknown) (no (unknown) (unknown) anyone in either (units (unknown) date) family with: unknown) (unknown) (no (unknown) (unknown) attempted, unable (units (unknown) date) other [place] unknown) (unknown) (no (unknown) (unknown) azithromycin 250 (units (unknown) date) mg tablet See Rx unknown) Instructions PO .COMPLEX #6 tabs 10/07/22 [Rx (unknown) (no (unknown) (unknown) because she has (units (unknown) date) had difficult unknown) spinals with all 3 of her deliveries. (unknown) (no (unknown) (unknown) bleeding. No (units (u nknown) date) regular unknown) contractions. On ultrasound: Breech presentation. 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 (units (unkno wn) date) unknown) (unknown) (no (unknown) (unknown) delivery. (units (unkn own) date) unknown) (unknown) (no (unknown) (unknown) described, visit (units (unknown) date) schedule reviewed, unknown) ultrasounds policy reviewed, coverage 24 (unknown) (no (unknown) (unknown) discussed, (units (unk nown) date) tuberculosis unknown) exposure discussed, CMV discussed, Toxoplasmosis (unknown) (no (unknown) (unknown) do you feel safe (units (unknown) date) at home: Yes unknown) (unknown) (no (unknown) (unknown) double electric (units (unknown) date) breast pump 1 ea unknown) topical .prn #1 ea 11/01/22 [Rx] (unknown) (no (unknown) (unknown) during the past (units (unknown) date) year weight has: unknown) other (wide fluctuations since last ) (unknown) (no (unknown) (unknown) education level: (units (unknown) date) vocational (some unknown) college, certificate programs) (unknown) (no (unknown) (unknown) erm [place] (units (u nknown) date) unknown) (unknown) (no (unknown) (unknown) executed today. (units (unknown) date) Labor precautions unknown) reviewed and follow-up SHERMAN w/ HUNTER will be in (unknown) (no (unknown) (unknown) f/u limited (units (un known) date) anatomy views at unknown) 28wk visit with Dr. Baumann. Ordered OGTT, CBC and (unknown) (no (unknown) (unknown) failure to (units (unk nown) date) progress Rosey unknown) (unknown) (no (unknown) (unknown) felt rare (units (unknown) date) movement. No unknown) leakage of fluid or vaginal bleeding. Plan: (unknown) (no (unknown) (unknown) fetoprotein (units (un known) date) ordered. Warning unknown) signs reviewed. Follow-up in 5 weeks. kag (unknown) (no (unknown) (unknown) fire extinguisher (units (unknown) date) in home: Yes unknown) (unknown) (no (unknown) (unknown) firearms in home: (units (unknown) date) Yes firearms unknown) unloaded and locked: Yes (unknown) (no (unknown) (unknown) flaxseed Allergy (units (unknown) date) (Severe, Verified unknown) 11/01/22 11:31) (unknown) (no (unknown) (unknown) flu or covid (units (u nknown) date) vaccines received) unknown) (unknown) (no (unknown) (unknown) flu vac qv (units (unk nown) date) 2021(17yr unknown) up)rcm-PF (unknown) (no (unknown) (unknown) free DNA showed (units (unknown) date) normal female. She unknown) continues to have migraines several days a (unknown) (no (unknown) (unknown) from 2 weeks ago (units (unknown) date) and slightly above unknown) the normal range for this EGA. HHS form 687 (unknown) (no (unknown) (unknown) gestational age. (units (unknown) date) She is having a unknown) few [place] contractions but denies (unknown) (no (unknown) (unknown) grade breast pump (units (unknown) date) that she can have unknown) when she goes home from hospital after (unknown) (no (unknown) (unknown) had her 20 week (units (unknown) date) ultrasound today. unknown) Those results are not available. She has (unknown) (no (unknown) (unknown) had limited heart (units (unknown) date) and outflow tract unknown) views from her anatomy US. Plan 3D US and (unknown) (no (unknown) (unknown) have occurred. If (units (unknown) date) there are any unknown) questions, please contact the Medical Records (unknown) (no (unknown) (unknown) hours a day and (units (unknown) date) participation of unknown) father in care and office visits (unknown) (no (unknown) (unknown) household members: (units (unknown) date) spouse, family unknown) ([id number] and his 3 children (moving out (unknown) (no (unknown) (unknown) housing: house (units (unknown) date) unknown) (unknown) (no (unknown) (unknown) hydroxyzine HCl (units (unknown) date) 25 mg tablet 25 mg unknown) PO TID PRN anxiety #20 tabs 09/16/22 [Rx (unknown) (no (unknown) (unknown) in discharge. Her (units (unknown) date) baby remains unknown) active however. HUNTER today is slightly increased (unknown) (no (unknown) (unknown) is still having (units (unknown) date) occasional unknown) headaches. Good movement. No leakage of fluid (unknown) (no (unknown) (unknown) jw (units (unkno wn) date) unknown) (unknown) (no (unknown) (unknown) kag (units (unkno wn) date) unknown) (unknown) (no (unknown) (unknown) levothyroxine 137 (units (unknown) date) mcg tablet 137 mcg unknown) PO DAILY #30 tabs 10/17/22 [Rx Confirmed (unknown) (no (unknown) (unknown) lives (units (unkno wn) date) independently: Yes unknown) (unknown) (no (unknown) (unknown) m 2 wks (units (unkno wn) date) unknown) (unknown) (no (unknown) (unknown) magnesium 200 mg (units (unknown) date) tablet 200 mg PO unknown) DAILY 05/03/22 [History Confirmed 11/01/22] (unknown) (no (unknown) (unknown) marital status: (units (unknown) date) unknown) (unknown) (no (unknown) (unknown) may occur. (units (unk nown) date) Occasional unknown) wrong-word or 'sound-alike' substitutions may have (unknown) (no (unknown) (unknown) medication. No (units (unknown) date) vaginal bleeding. unknown) On ultrasound: Intrauterine gestational sac (unknown) (no (unknown) (unknown) migraines and (units ( unknown) date) these are getting unknown) a little better. She is using the prescribed (unknown) (no (unknown) (unknown) months other Iyla (units (unknown) date) unknown) (unknown) (no (unknown) (unknown) number of (units (unkn own) date) children: 3 unknown) (unknown) (no (unknown) (unknown) occasional 1 (units (u nknown) date) Percocet to treat unknown) these. Plan: 20 week ultrasound ordered. Alpha (unknown) (no (unknown) (unknown) occupational (units (u nknown) date) status: unemployed unknown) and previously employed (unknown) (no (unknown) (unknown) occurred due to (units (unknown) date) the inherent unknown) limitations of voice recognition software. Please (unknown) (no (unknown) (unknown) ondansetron 4 mg (units (unknown) date) disintegrating unknown) tablet 4 mg PO Q6H PRN nausea and vomiting #20 (unknown) (no (unknown) (unknown) or vaginal (units (unk nown) date) bleeding. On unknown) ultrasound: Breech presentation. AGA 29 weeks 2 days. (unknown) (no (unknown) (unknown) oxycodone 5 mg (units (unknown) date) tablet 5 mg PO Q6H unknown) PRN pain #10 tabs 10/12/22 [Rx Confirmed (unknown) (no (unknown) (unknown) pets and animals: (units (unknown) date) Yes (horses) unknown) (unknown) (no (unknown) (unknown) polyhydramnios (units (unknown) date) unknown) (unknown) (no (unknown) (unknown) precautions, (units (u nknown) date) Listeriosis unknown) prevention and Rubella Immunization (unknown) (no (unknown) (unknown) , third (units (unknown) date) trimester, Z3A.35 unknown) - 35 weeks gestation of (unknown) (no (unknown) (unknown) prenat.vits,alexey,m (units (unknown) date) [id number] 1 unknown) tab PO DAILY 04/22/22 [History Confirmed (unknown) (no (unknown) (unknown) read the note (units ( unknown) date) carefully and unknown) recognize, using context, where these substitutions (unknown) (no (unknown) (unknown) really like to (units (unknown) date) meet w/ [facility] unknown) prior to delivery and would like Rx for hospital (unknown) (no (unknown) (unknown) regular uterine (units (unknown) date) contractions, unknown) bleeding, leakage of fluid per vagina, or change (unknown) (no (unknown) (unknown) reports good (units (u nknown) date) movement and unknown) denies VB, LOF, contractions and cramping. She (unknown) (no (unknown) (unknown) reviewed. 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 (units (unkn own) date) Although every unknown) effort is made to edit content, fountain brush assembler errors (unknown) (no (unknown) (unknown) soon)) and (units (unk nown) date) children unknown) (unknown) (no (unknown) (unknown) special [place]land (units ( unknown) date) needs: No unknown) (unknown) (no (unknown) (unknown) substance use (units (u nknown) date) type: marijuana unknown) (in the past, not recently and not while ) (unknown) (no (unknown) (unknown) tabs 05/17/22 [Rx (units (unknown) date) Confirmed unknown) 11/01/22] (unknown) (no (unknown) (unknown) term [place] (units ( unknown) date) [place] unknown) (unknown) (no (unknown) (unknown) volume. The heart (units (unknown) date) and outflow tracts unknown) could not be visualized. Follow-up in 3 (unknown) (no (unknown) (unknown) water heater temp (units (unknown) date) set < 120 deg: Yes unknown) (unknown) (no (unknown) (unknown) week but they are (units (unknown) date) not lasting unknown) multiple days and not as intense. She is using an (unknown) (no (unknown) (unknown) weeks with repeat (units (unknown) date) ultrasound to unknown) check fluid. Warning signs reviewed. (unknown) (no (unknown) (unknown) weight gain, Fish (units (unknown) date) and mercury unknown) intake, Caffeine use, Exercise and activity, (unknown) (no (unknown) (unknown) well-balanced (units ( unknown) date) diet: daily or unknown) most days (unknown) (no (unknown) (unknown) with 11 weeks 3 (units (unknown) date) days. Left ovary unknown) is normal. Plan: Cell free DNA ordered. (unknown) (no (unknown) (unknown) with a fetus with (units (unknown) date) a crown-rump unknown) length measuring 4.63 cm. This is consistent (unknown) (no (unknown) (unknown) work/environmenta (units (unknown) date) l/hazards, Sexual unknown) activity, X-ray exposure, Medication use, (unknown) (no (unknown) (unknown) working smoke (units ( unknown) date) detector in home: unknown) Yes Result panel 165 (unknown) (no date) (unknown) (unknown) NEG for (units (unkn own) Grp B Strep unknown) (unknown) (no date) (unknown) (unknown) NEG for (units (unkn own) Grp B Strep unknown) Result panel 166 (unknown) (no (unknown) (unknown) (no value) (units (unk nown) date) unknown) (unknown) (no (unknown) (unknown) 'syndrome';) (units (u nknown) date) unknown) (unknown) (no (unknown) (unknown) (+11 lb) 112/62 N (units (unknown) date) unknown) (unknown) (no (unknown) (unknown) (+13 lb) 118/68 N (units (unknown) date) unknown) (unknown) (no (unknown) (unknown) (+21 lb 7 oz) (units ( unknown) date) 98/68 N unknown) (unknown) (no (unknown) (unknown) (+27 lb) 110/70 N (units (unknown) date) unknown) (unknown) (no (unknown) (unknown) (+30 lb) 126/66 N (units (unknown) date) unknown) (unknown) (no (unknown) (unknown) (+34 lb) 104/68 N (units (unknown) date) unknown) (unknown) (no (unknown) (unknown) (+38 lb) 114/60 N (units (unknown) date) unknown) (unknown) (no (unknown) (unknown) (+6 lb) 108/68 N (units (unknown) date) unknown) (unknown) (no (unknown) (unknown) Genetic (units (unkn own) date) Screening/Teratolo unknown) gy Counseling - Includes patient, baby's father, or (unknown) (no (unknown) (unknown) -?-?-?-?-?-?-?-?- (units (unknown) date) ?-?-?-? unknown) (unknown) (no (unknown) (unknown) 0.5 mL IM Left (units (unknown) date) Deltoid [id number] unknown) 05/03/23 [id number] SANOFI-PASTEUR (unknown) (no (unknown) (unknown) 01/24/14 41 17 7 (units (unknown) date) lb 1 oz Female unknown) live - full t (unknown) (no (unknown) (unknown) 02/19/21 39 7 lb (units (unknown) date) 12 oz Female live unknown) - full term (unknown) (no (unknown) (unknown) 05/13/22 (units (unkno wn) date) unknown) (unknown) (no (unknown) (unknown) 06/09/22 (units (unkno wn) date) unknown) (unknown) (no (unknown) (unknown) 06/16/15 38 7 lb (units (unknown) date) 13 oz Male unknown) live - full (unknown) (no (unknown) (unknown) 07/12/22 (units (unkno wn) date) unknown) (unknown) (no (unknown) (unknown) 08/15/22 (units (unkno wn) date) unknown) (unknown) (no (unknown) (unknown) 09/13/22 (units (unkno wn) date) unknown) (unknown) (no (unknown) (unknown) 10/04/22 (units (unkno wn) date) unknown) (unknown) (no (unknown) (unknown) 10/18/21 8 (units (unk nown) date) spontaneous unknown) (unknown) (no (unknown) (unknown) 10/18/22 (units (unkno wn) date) unknown) (unknown) (no (unknown) (unknown) 11:31 (units (unkno wn) date) unknown) (unknown) (no (unknown) (unknown) 11w 2d 261 lb (units ( unknown) date) unknown) (unknown) (no (unknown) (unknown) 11w3d 4 wks (units (un known) date) unknown) (unknown) (no (unknown) (unknown) 11/01/22 Single (units (unknown) date) Vaccine 06/25/21 unknown) (unknown) (no (unknown) (unknown) 11/01/22 (units (unkno wn) date) unknown) (unknown) (no (unknown) (unknown) 11/01/22] (units (unkn own) date) unknown) (unknown) (no (unknown) (unknown) 15w 1d 266 lb (units ( unknown) date) unknown) (unknown) (no (unknown) (unknown) 19w 6d 268 lb (units ( unknown) date) unknown) (unknown) (no (unknown) (unknown) 2 lb 15 oz. (units (un known) date) 55%ile. Placenta unknown) grade 0 and anterior. Normal amniotic fluid (unknown) (no (unknown) (unknown) 2 wees or as (units (u nknown) date) needed. unknown) (unknown) (no (unknown) (unknown) 2 wks (units (unkno wn) date) unknown) (unknown) (no (unknown) (unknown) 20.14 cm. Grade 0 (units (unknown) date) placenta. Plan: unknown) Follow-up in 2 weeks. Warning signs (unknown) (no (unknown) (unknown) 24w 5d 276 lb 7 (units (unknown) date) oz unknown) (unknown) (no (unknown) (unknown) 28w 6d 282 lb (units ( unknown) date) unknown) (unknown) (no (unknown) (unknown) 3 wks (units (unkno wn) date) unknown) (unknown) (no (unknown) (unknown) 31 weeks (units (unkno wn) date) gestation. Good unknown) movement. No leakage of fluid or vaginal (unknown) (no (unknown) (unknown) 31w 6d 285 lb (units ( unknown) date) unknown) (unknown) (no (unknown) (unknown) 33w 6d 289 lb (units ( unknown) date) unknown) (unknown) (no (unknown) (unknown) 35w 6d 293 lb (units ( unknown) date) unknown) (unknown) (no (unknown) (unknown) 5 wks (units (unkno wn) date) unknown) (unknown) (no (unknown) (unknown) ADHD (units (unkno wn) date) unknown) (unknown) (no (unknown) (unknown) Abnormal lab (units (u nknown) date) values 1st unknown) trimester: discussed (unknown) (no (unknown) (unknown) Add'l Plan (units (unk nown) date) Details unknown) (unknown) (no (unknown) (unknown) Additional (units (unk nown) date) Details:: 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 (unknown) (no (unknown) (unknown) Additional Social (units (unknown) date) History unknown) (unknown) (no (unknown) (unknown) Administered by: (units (unknown) date) Gi Culp MA unknown) on 11/01/22 14:04 (unknown) (no (unknown) (unknown) Age/Sex: 32 / F (units (unknown) date) Date of Service: unknown) (unknown) (no (unknown) (unknown) Alcoholism (units (unk nown) date) unknown) (unknown) (no (unknown) (unknown) Allergies (units (unkn own) date) unknown) (unknown) (no (unknown) (unknown) [place] (units ( unknown) date) [id number] unknown) (unknown) (no (unknown) (unknown) Anaphylaxis (units (un known) date) unknown) (unknown) (no (unknown) (unknown) Anesthesia (units (unk nown) date) unknown) (unknown) (no (unknown) (unknown) Aneuploidy (units (unk nown) date) Screening Offered: unknown) Accepted (Would like CFDNA if qualified) (unknown) (no (unknown) (unknown) Anticipated (units (un known) date) course of unknown) care: discussed (unknown) (no (unknown) (unknown) Assessment and (units (unknown) date) Plan unknown) (unknown) (no (unknown) (unknown) Attending Dr: (units ( unknown) date) Josefina Baumann unknown) (unknown) (no (unknown) (unknown) BMI 50.3 (units (unkno wn) date) unknown) (unknown) (no (unknown) (unknown) BP 114/60 (units (unkn own) date) unknown) (unknown) (no (unknown) (unknown) Yonis 2 months (units (unknown) date) post-dates unknown) induction (unknown) (no (unknown) (unknown) (units (unkno wn) date) Plan/Preferences unknown) (unknown) (no (unknown) (unknown) Planning (units (unknown) date) unknown) (unknown) (no (unknown) (unknown) Blood Pressure (units (unknown) date) Location Rt unknown) brachial (unknown) (no (unknown) (unknown) Blood (units (unkno wn) date) transfusions?: yes unknown) (Never had but would accept ) (unknown) (no (unknown) (unknown) Breastfeed Preg (units (unknown) date) Comp Name unknown) (unknown) (no (unknown) (unknown) 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) unknown) (unknown) (no (unknown) (unknown) Children's (units (unk nown) date) unknown) (unknown) (no (unknown) (unknown) Confirmed (units (unkn own) date) 11/01/22] unknown) (unknown) (no (unknown) (unknown) Current Estimate (units (unknown) date) 11/30/22 LMP unknown) (Certain) 36w 1d (unknown) (no (unknown) (unknown) Current (units (unknown) date) History unknown) (unknown) (no (unknown) (unknown) DNA (units (unkno wn) date) unknown) (unknown) (no (unknown) (unknown) : 1990 (units (unknown) date) Acct:[id number] unknown) (unknown) (no (unknown) (unknown) Date of positive (units (unknown) date) home unknown) test: 03/25/22 (unknown) (no (unknown) (unknown) Date (units (unkno wn) date) unknown) (unknown) (no (unknown) (unknown) Daughter Juvenile (units (unknown) date) arthritis unknown) (unknown) (no (unknown) (unknown) Del. Date (units (unkn own) date) GA/Weeks Labor unknown) Lgth Wt Sex Route Outcome Anesthesia Place (unknown) (no (unknown) (unknown) Delivery Date: (units (unknown) date) 02/19/21 Last unknown) Updated by: Susi Petersen RN (unknown) (no (unknown) (unknown) Delivery Date: (units (unknown) date) 06/16/15 Last unknown) Updated by: Susi Petersen RN (unknown) (no (unknown) (unknown) Delv (units (unkno wn) date) unknown) (unknown) (no (unknown) (unknown) Denies other (units (u nknown) date) unknown) (unknown) (no (unknown) (unknown) Denies over the (units (unknown) date) counter unknown) medications, Denies alcohol, Denies illicit drugs and (unknown) (no (unknown) (unknown) Depression (units (unk nown) date) (-1999) unknown) (unknown) (no (unknown) (unknown) Depression: (units (un known) date) discussed unknown) (unknown) (no (unknown) (unknown) Dept at (units (unkno wn) date) . unknown) (unknown) (no (unknown) (unknown) Diet and Exercise (units (unknown) date) unknown) (unknown) (no (unknown) (unknown) Discussed (units (unkno wn) date) anesthesia, but unknown) encouraged Brittany to discuss this more in depth with (unknown) (no (unknown) (unknown) Documented By: (units (unknown) date) Josefina Baumann unknownRichard FINE 11/01/22 1130 (unknown) (no (unknown) (unknown) Dose Route Admin (units (unknown) date) Location Lot unknown) Number Expiration Date NDC (unknown) (no (unknown) (unknown) Draft (units (unkno wn) date) unknown) (unknown) (no (unknown) (unknown) ECTOR Calculator (units (unknown) date) unknown) (unknown) (no (unknown) (unknown) EGA Weight BP (units ( unknown) date) UGlucose unknown) (unknown) (no (unknown) (unknown) Eligibility (units (un known) date) Eligibility Date unknown) Funding Source (unknown) (no (unknown) (unknown) Estimated (units (unkn own) date) Delivery Date unknown) Method Current (unknown) (no (unknown) (unknown) Expected Delivery (units (unknown) date) Route/Plan unknown) (unknown) (no (unknown) (unknown) Family History (units (unknown) date) (Updated 06/08/22 unknown) @ 21:23 by Aurora Arevalo) (unknown) (no (unknown) (unknown) Father Diabetes (units (unknown) date) mellitus unknown) (unknown) (no (unknown) (unknown) Father of Baby: (units (unknown) date) same unknown) (unknown) (no (unknown) (unknown) [facility] ([facility] unknown) (unknown) (no (unknown) (unknown) First Trimester (units (unknown) date) Education unknown) Checklist (unknown) (no (unknown) (unknown) Deneen 11/01/22 (units (unknown) date) Z23 - Encounter unknown) for immunization (unknown) (no (unknown) (unknown) Follow-up in 4 (units (unknown) date) weeks. Warning unknown) signs reviewed. kag (unknown) (no (unknown) (unknown) Follow-up in 4 (units (unknown) date) weeks. We will unknown) call with anatomic survey results. (unknown) (no (unknown) (unknown) Foot pain () (units (unknown) date) unknown) (unknown) (no (unknown) (unknown) (units (unkno wn) date) unknown) (unknown) (no (unknown) (unknown) [place] at her next (units (unknown) date) visit. f/u in 4 unknown) weeks. (unknown) (no (unknown) (unknown) Genetic Screening (units (unknown) date) + Counseling unknown) (unknown) (no (unknown) (unknown) Genetic Screening (units (unknown) date) unknown) (unknown) (no (unknown) (unknown) 5 (units (unkn own) date) Multiple births unknown) (unknown) (no (unknown) (unknown) HIV risk (units (unkno wn) date) evaluation: low unknown) risk (unknown) (no (unknown) (unknown) Health Center (units ( unknown) date) Education unknown) (unknown) (no (unknown) (unknown) Health center (units ( unknown) date) information: unknown) nature of practice discussed, personnel (unknown) (no (unknown) (unknown) Heavy menstrual (units (unknown) date) period () unknown) (unknown) (no (unknown) (unknown) Height 5 ft 4 in (units (unknown) date) unknown) (unknown) (no (unknown) (unknown) Hepatitis C risk (units (unknown) date) evaluation: low unknown) risk (unknown) (no (unknown) (unknown) History of (units (unk nown) date) Hepatitis B: No unknown) (unknown) (no (unknown) (unknown) History of (units (unk nown) date) Hepatitis C: No unknown) (unknown) (no (unknown) (unknown) History of (units (unk nown) date) surgery unknown) (unknown) (no (unknown) (unknown) Hospital: (units (u nknown) date) unknown) (unknown) (no (unknown) (unknown) [facility]. (units (unknown) date) unknown) (unknown) (no (unknown) (unknown) Hx # (units (u nknown) date) Pregnancies unknown) Elective abortions (unknown) (no (unknown) (unknown) Hx # Term (units (unkn own) date) Pregnancies 3 unknown) Ectopic pregnancies (unknown) (no (unknown) (unknown) Hx severe (units (unkn own) date) polyhydramnios unknown) (unknown) (no (unknown) (unknown) Hypothyroid (units (un known) date) unknown) (unknown) (no (unknown) (unknown) Immunizations (units ( unknown) date) unknown) (unknown) (no (unknown) (unknown) Infant will be (units (unknown) date) adopted?: no unknown) (unknown) (no (unknown) (unknown) Infection History (units (unknown) date) unknown) (unknown) (no (unknown) (unknown) Infectious (units (unk nown) date) Disease Education unknown) (unknown) (no (unknown) (unknown) Infectious (units (unk nown) date) disease exposure: unknown) chicken pox immunity discussed, hepatitis risk (unknown) (no (unknown) (unknown) Initial Weight: (units (unknown) date) 255 lb unknown) (unknown) (no (unknown) (unknown) Initials (units (unkno wn) date) unknown) (unknown) (no (unknown) (unknown) Intake Clinical (units (unknown) date) Staff unknown) (unknown) (no (unknown) (unknown) Intake Note: (units (u nknown) date) unknown) (unknown) (no (unknown) (unknown) Intake performed (units (unknown) date) by: Gi Culp unknown) (unknown) (no (unknown) (unknown) Intake (units (unkno wn) date) unknown) (unknown) (no (unknown) (unknown) LM (units (unkno wn) date) unknown) (unknown) (no (unknown) (unknown) Brittany and her (units (u nknown) date) children present unknown) for her SHERMAN visit now at 33+ 6 weeks (unknown) (no (unknown) (unknown) Brittany presents (units ( unknown) date) today with her 3 unknown) kids for a routine OB visit at 24w5d. She (unknown) (no (unknown) (unknown) Live with someone (units (unknown) date) with TB or exposed unknown) to TB: No (unknown) (no (unknown) (unknown) Loc: [facility] (units (unkno wn) date) unknown) (unknown) (no (unknown) (unknown) [id number] (units (unk nown) date) unknown) (unknown) (no (unknown) (unknown) [place] [employer] (units (u nknown) date) unknown) (unknown) (no (unknown) (unknown) Marital status: (units (unknown) date) unknown) (unknown) (no (unknown) (unknown) Medical History (units (unknown) date) (Updated 10/18/22 unknown) @ 13:49 by Glen Ojeda MD) (unknown) (no (unknown) (unknown) Medications (units (un known) date) unknown) (unknown) (no (unknown) (unknown) Mental health (units ( unknown) date) problem unknown) (unknown) (no (unknown) (unknown) Migraine (units (unkno wn) date) headaches unknown) (unknown) (no (unknown) (unknown) Mother Depression (units (unknown) date) unknown) (unknown) (no (unknown) (unknown) N No no 146 15 (units (unknown) date) N/A absent 4 wks unknown) (unknown) (no (unknown) (unknown) N No no 168 11 (units (unknown) date) N/A absent unknown) long/closed AGA (unknown) (no (unknown) (unknown) N Yes no 143 32 (units (unknown) date) Breech absent HUNTER unknown) 20.14cm (unknown) (no (unknown) (unknown) Nearsightedness (units (unknown) date) unknown) (unknown) (no (unknown) (unknown) Not [facility] Eligible (units (unknown) date) 11/01/22 Private unknown) Funds (unknown) (no (unknown) (unknown) Notes (units (unkno wn) date) unknown) (unknown) (no (unknown) (unknown) Number of Living (units (unknown) date) Children 3 unknown) (unknown) (no (unknown) (unknown) Number of (units (unkn own) date) fetuses:: Single unknown) (unknown) (no (unknown) (unknown) Nutrition and (units ( unknown) date) weight gain unknown) counseling: special diet: discussed (unknown) (no (unknown) (unknown) OB Office Visit (units (unknown) date) unknown) (unknown) (no (unknown) (unknown) OB Visit Log (units (u nknown) date) unknown) (unknown) (no (unknown) (unknown) OB check (units (unkno wn) date) unknown) (unknown) (no (unknown) (unknown) Obesity (units (unkno wn) date) unknown) (unknown) (no (unknown) (unknown) On control (units (unknown) date) at conception?: No unknown) (unknown) (no (unknown) (unknown) Orders (units (unkno wn) date) unknown) (unknown) (no (unknown) (unknown) Orders: (units (unkno wn) date) unknown) (unknown) (no (unknown) (unknown) PFSH (units (unkno wn) date) unknown) (unknown) (no (unknown) (unknown) PTSD (units (unkno wn) date) (post-traumatic unknown) stress disorder) (-1999) (unknown) (no (unknown) (unknown) Painful menstrual (units (unknown) date) periods (-2019) unknown) (unknown) (no (unknown) (unknown) Pap performed?: (units (unknown) date) No unknown) (unknown) (no (unknown) (unknown) Para 3 (units (unkno wn) date) Spontaneous unknown) abortions 1 (unknown) (no (unknown) (unknown) Partner history (units (unknown) date) of STD: denies hx unknown) (unknown) (no (unknown) (unknown) Partner history (units (unknown) date) of genital herpes: unknown) No (unknown) (no (unknown) (unknown) Partner: [facility] (units (unknown) date) [place] unknown) (unknown) (no (unknown) (unknown) Past Pregnancies (units (unknown) date) unknown) (unknown) (no (unknown) (unknown) Patient presents (units (unknown) date) accompanied by her unknown) children for routine visit at (unknown) (no (unknown) (unknown) Patient presents (units (unknown) date) for a new OB visit unknown) at 11 weeks gestation. She has had (unknown) (no (unknown) (unknown) Patient presents (units (unknown) date) for a routine unknown) visit at 15 weeks gestation. Cell (unknown) (no (unknown) (unknown) Patient presents (units (unknown) date) for a routine unknown) visit at 19 weeks gestation. She (unknown) (no (unknown) (unknown) Patient presents (units (unknown) date) for a routine unknown) visit at 28 weeks gestation. 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: (units ( unknown) date) Pediatric unknown) [facility] (unknown) (no (unknown) (unknown) Performing (units (unk nown) date) Provider: Josefina unknown) Angella Baumann MD (unknown) (no (unknown) (unknown) Personal history (units (unknown) date) of STD: denies hx unknown) (unknown) (no (unknown) (unknown) Personal history (units (unknown) date) of genital herpes: unknown) No (unknown) (no (unknown) (unknown) Planned repeat (units (unknown) date) C/S, 11/24/22 unknown) (unknown) (no (unknown) (unknown) Polyhydramnios (units (unknown) date) unknown) (unknown) (no (unknown) (unknown) Position Sitting (units (unknown) date) unknown) (unknown) (no (unknown) (unknown) Postive screening (units (unknown) date) CF (In scans) unknown) (unknown) (no (unknown) (unknown) (units (unk nown) date) depression unknown) (unknown) (no (unknown) (unknown) History (units (unknown) date) unknown) (unknown) (no (unknown) (unknown) type:: (units (unknown) date) Other Normal unknown) (unknown) (no (unknown) (unknown) (units (unkno wn) date) Education unknown) (unknown) (no (unknown) (unknown) Initial (units (unknown) date) Assessment unknown) (unknown) (no (unknown) (unknown) Specific (units (unknown) date) Issues/Plans unknown) (unknown) (no (unknown) (unknown) Testing: (units (unknown) date) discussed unknown) (unknown) (no (unknown) (unknown) Visit (units (unknown) date) unknown) (unknown) (no (unknown) (unknown) (units (unkno wn) date) education packet: unknown) symptoms, Vitamins and iron, Diet and (unknown) (no (unknown) (unknown) Previous (units (unknown) date) section unknown) (unknown) (no (unknown) (unknown) Primary Care (units (u nknown) date) Provider: [facility] unknown) [facility] (unknown) (no (unknown) (unknown) Primary Ob (units (unk nown) date) Provider: unknown) Josefina Baumann (unknown) (no (unknown) (unknown) Prior (units (unkno wn) date) GBS-Infected unknown) child: No (unknown) (no (unknown) (unknown) [place] (units (unk nown) date) [place] 4 unknown) (unknown) (no (unknown) (unknown) Providers (units (unkn own) date) unknown) (unknown) (no (unknown) (unknown) RPR pos, TPA (units (u nknown) date) negative unknown) (unknown) (no (unknown) (unknown) Rash or viral (units ( unknown) date) illness since last unknown) menstrual period: Yes (minor head cold) (unknown) (no (unknown) (unknown) Reason For Visit (units (unknown) date) unknown) (unknown) (no (unknown) (unknown) Recent travel (units ( unknown) date) outside of unknown) country?: No (unknown) (no (unknown) (unknown) Recurrent (units (unkn own) date) loss or unknown) a stillbirth: No (unknown) (no (unknown) (unknown) Repeat (units (unknown) date) section with unknown) bilateral salpingectomy (unknown) (no (unknown) (unknown) Reports Other (units ( unknown) date) (Older son unknown) undergoing genetic workup for currently unidentified (unknown) (no (unknown) (unknown) 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 unknown) (unknown) (no (unknown) (unknown) Safety (units (unkno wn) date) unknown) (unknown) (no (unknown) (unknown) Sauna/hot tub (units ( unknown) date) use, Dental care, unknown) Marijuana use, Travel and Influenza vaccine (no (unknown) (no (unknown) (unknown) Signed By: (units (unk nown) date) unknown) (unknown) (no (unknown) (unknown) Smoking Status: (units (unknown) date) Former smoker unknown) (Quit-2020) (unknown) (no (unknown) (unknown) Social History (units (unknown) date) unknown) (unknown) (no (unknown) (unknown) Son Hearing loss (units (unknown) date) unknown) (unknown) (no (unknown) (unknown) Son undergoing (units (unknown) date[facility] (no (unknown) (unknown) Strep Grp B PCR (units (unknown) date) 11/01/22 Z34.83 - unknown) Encounter for supervision of other normal (unknown) (no (unknown) (unknown) Support (units (unkno wn) date) Person(s):: Adriano unknown) (unknown) (no (unknown) (unknown) Surgical History (units (unknown) date) (Updated 07/12/22 unknown) @ 15:10 by Josefina Baumann MD) (unknown) (no (unknown) (unknown) Surrogate (units (unkn own) date) ?: no unknown) (unknown) (no (unknown) (unknown) Symptoms since (units (unknown) date) LMP: Reports unknown) amenorrhea, nausea, fatigue, urinary frequency, (unknown) (no (unknown) (unknown) TR Yes no 138 30 (units (unknown) date) Breech absent AGA unknown) 29w2d (unknown) (no (unknown) (unknown) TR Yes no 143 26 (units (unknown) date) N/A absent 4 wks unknown) (unknown) (no (unknown) (unknown) TR Yes no 144 21 (units (unknown) date) N/A absent 4 wks unknown) (unknown) (no (unknown) (unknown) TR Yes no 148 36 (units (unknown) date) Vertex absent HUNTER unknown) 23.99 c (unknown) (no (unknown) (unknown) TR Yes no 161 40 (units (unknown) date) Vertex absent HUNTER unknown) 18.54 c (unknown) (no (unknown) (unknown) TSH. Discussed (units (unknown) date) TDAP vaccination unknown) nv. She had questions regarding anesthesia (unknown) (no (unknown) (unknown) Tdap, declines (units (unknown) date) flu unknown) (unknown) (no (unknown) (unknown) Teratogen (units (unkn own) date) Exposures since unknown) LMP/Conception: Denies prescription medications, (unknown) (no (unknown) (unknown) Testing Education (units (unknown) date) unknown) (unknown) (no (unknown) (unknown) Testing education (units (unknown) date) completed: group B unknown) strep, Spina bifida testing and Cell Free (unknown) (no (unknown) (unknown) This note may (units ( unknown) date) have been all or unknown) partially generated using voice recognition (unknown) (no (unknown) (unknown) 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 [place] (unknown) (no (unknown) (unknown) Tobacco + (units (unkn own) date) Substance Use unknown) (unknown) (no (unknown) (unknown) Tobacco Status (units (unknown) date) unknown) (unknown) (no (unknown) (unknown) Trimester:: 3rd (units (unknown) date) Trimester unknown) (28wks-Del) (unknown) (no (unknown) (unknown) Type(s) of (units (unk nown) date) exercise: walking unknown) (unknown) (no (unknown) (unknown) UProtein Movement (units (unknown) date) PreLabor FHR Fndl unknown) Ht Pres Edema Cerv Exam US/Comment Next Appt (unknown) (no (unknown) (unknown) Ultrasound (units (unk nown) date) performed?: Yes unknown) (unknown) (no (unknown) (unknown) VIS Given Date (units (unknown) date) VIS Provided VIS unknown) Publication Date (unknown) (no (unknown) (unknown) Varicella/chicken (units (unknown) date) pox status: unknown) immunized (unknown) (no (unknown) (unknown) Visit Date: (units (un known) date) 05/13/22 Last unknown) Updated by: Josefina Baumann MD (unknown) (no (unknown) (unknown) Visit Date: (units (un known) date) 06/09/22 Last unknown) Updated by: Josefina Baumann MD (unknown) (no (unknown) (unknown) Visit Date: (units (un known) date) 07/12/22 Last unknown) Updated by: Josefina Baumann MD (unknown) (no (unknown) (unknown) Visit Date: (units (un known) date) 08/15/22 Last unknown) Updated by: Anita Perez P.A-C (unknown) (no (unknown) (unknown) Visit Date: (units (un known) date) 09/13/22 Last unknown) Updated by: Josefina Baumann MD (unknown) (no (unknown) (unknown) Visit Date: (units (un known) date) 10/04/22 Last unknown) Updated by: Josefina Baumann MD (unknown) (no (unknown) (unknown) Visit Date: (units (un known) date) 10/18/22 Last unknown) Updated by: Glen Ojeda MD (unknown) (no (unknown) (unknown) Visit Reasons: OB (units (unknown) date) Check w/HUNTER unknown) (unknown) (no (unknown) (unknown) Vitals (units (unkno wn) date) unknown) (unknown) (no (unknown) (unknown) WG (units (unkno wn) date) unknown) (unknown) (no (unknown) (unknown) Weeks gestation:: (units (unknown) date) 35 unknown) (unknown) (no (unknown) (unknown) Weight 293 lb (units ( unknown) date) unknown) (unknown) (no (unknown) (unknown) [place] teeth (units (u nknown) date) extracted unknown) (unknown) (no (unknown) (unknown) Would like (units (unk nown) date) referral unknown) to IBCLC and f f [facility] breast pump at (unknown) (no (unknown) (unknown) Zika virus (units (unk nown) date) exposure: No unknown) (unknown) (no (unknown) (unknown) additional social (units (unknown) date) history: unknown) Difficulty other children. Would (unknown) (no (unknown) (unknown) alcohol intake: (units (unknown) date) former unknown) (unknown) (no (unknown) (unknown) anyone in either (units (unknown) date) family with: unknown) (unknown) (no (unknown) (unknown) attempted, unable (units (unknown) date) other Lavelle unknown) (unknown) (no (unknown) (unknown) azithromycin 250 (units (unknown) date) mg tablet See Rx unknown) Instructions PO .COMPLEX #6 tabs 10/07/22 [Rx (unknown) (no (unknown) (unknown) because she has (units (unknown) date) had difficult unknown) spinals with all 3 of her deliveries. (unknown) (no (unknown) (unknown) bleeding. No (units (u nknown) date) regular unknown) contractions. On ultrasound: Breech presentation. 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 (units (unkno wn) date) unknown) (unknown) (no (unknown) (unknown) delivery. (units (unkn own) date) unknown) (unknown) (no (unknown) (unknown) described, visit (units (unknown) date) schedule reviewed, unknown) ultrasounds policy reviewed, coverage 24 (unknown) (no (unknown) (unknown) discussed, (units (unk nown) date) tuberculosis unknown) exposure discussed, CMV discussed, Toxoplasmosis (unknown) (no (unknown) (unknown) do you feel safe (units (unknown) date) at home: Yes unknown) (unknown) (no (unknown) (unknown) double electric (units (unknown) date) breast pump 1 ea unknown) topical .prn #1 ea 11/01/22 [Rx] (unknown) (no (unknown) (unknown) during the past (units (unknown) date) year weight has: unknown) other (wide fluctuations since last ) (unknown) (no (unknown) (unknown) education level: (units (unknown) date) vocational (some unknown) college, certificate programs) (unknown) (no (unknown) (unknown) erm [place] (units (u nknown) date) unknown) (unknown) (no (unknown) (unknown) executed today. (units (unknown) date) Labor precautions unknown) reviewed and follow-up SHERMAN w/ HUNTER will be in (unknown) (no (unknown) (unknown) f/u limited (units (un known) date) anatomy views at unknown) 28wk visit with Dr. Baumann. Ordered OGTT, CBC and (unknown) (no (unknown) (unknown) failure to (units (unk nown) date) progress Rosey unknown) (unknown) (no (unknown) (unknown) felt rare (units (unknown) date) movement. No unknown) leakage of fluid or vaginal bleeding. Plan: (unknown) (no (unknown) (unknown) fetoprotein (units (un known) date) ordered. Warning unknown) signs reviewed. Follow-up in 5 weeks. kag (unknown) (no (unknown) (unknown) fire extinguisher (units (unknown) date) in home: Yes unknown) (unknown) (no (unknown) (unknown) firearms in home: (units (unknown) date) Yes firearms unknown) unloaded and locked: Yes (unknown) (no (unknown) (unknown) flaxseed Allergy (units (unknown) date) (Severe, Verified unknown) 11/01/22 11:31) (unknown) (no (unknown) (unknown) flu or covid (units (u nknown) date) vaccines received) unknown) (unknown) (no (unknown) (unknown) flu vac qv (units (unk nown) date) 2021(17yr unknown) up)rcm-PF (unknown) (no (unknown) (unknown) free DNA showed (units (unknown) date) normal female. She unknown) continues to have migraines several days a (unknown) (no (unknown) (unknown) from 2 weeks ago (units (unknown) date) and slightly above unknown) the normal range for this EGA. HHS form 687 (unknown) (no (unknown) (unknown) gestational age. (units (unknown) date) She is having a unknown) few [place] contractions but denies (unknown) (no (unknown) (unknown) grade breast pump (units (unknown) date) that she can have unknown) when she goes home from hospital after (unknown) (no (unknown) (unknown) had her 20 week (units (unknown) date) ultrasound today. unknown) Those results are not available. She has (unknown) (no (unknown) (unknown) had limited heart (units (unknown) date) and outflow tract unknown) views from her anatomy US. Plan 3D US and (unknown) (no (unknown) (unknown) have occurred. If (units (unknown) date) there are any unknown) questions, please contact the Medical Records (unknown) (no (unknown) (unknown) hours a day and (units (unknown) date) participation of unknown) father in care and office visits (unknown) (no (unknown) (unknown) household members: (units (unknown) date) spouse, family unknown) ([id number]-[id number] and his 3 children (moving out (unknown) (no (unknown) (unknown) housing: house (units (unknown) date) unknown) (unknown) (no (unknown) (unknown) hydroxyzine HCl (units (unknown) date) 25 mg tablet 25 mg unknown) PO TID PRN anxiety #20 tabs 09/16/22 [Rx (unknown) (no (unknown) (unknown) in discharge. Her (units (unknown) date) baby remains unknown) active however. HUNTER today is slightly increased (unknown) (no (unknown) (unknown) is still having (units (unknown) date) occasional unknown) headaches. Good movement. No leakage of fluid (unknown) (no (unknown) (unknown) jw (units (unkno wn) date) unknown) (unknown) (no (unknown) (unknown) kag (units (unkno wn) date) unknown) (unknown) (no (unknown) (unknown) levothyroxine 137 (units (unknown) date) mcg tablet 137 mcg unknown) PO DAILY #30 tabs 10/17/22 [Rx Confirmed (unknown) (no (unknown) (unknown) lives (units (unkno wn) date) independently: Yes unknown) (unknown) (no (unknown) (unknown) m 1 week (units (unkno wn) date) unknown) (unknown) (no (unknown) (unknown) m 2 wks (units (unkno wn) date) unknown) (unknown) (no (unknown) (unknown) magnesium 200 mg (units (unknown) date) tablet 200 mg PO unknown) DAILY 05/03/22 [History Confirmed 11/01/22] (unknown) (no (unknown) (unknown) marital status: (units (unknown) date) unknown) (unknown) (no (unknown) (unknown) may occur. (units (unk nown) date) Occasional unknown) wrong-word or 'sound-alike' substitutions may have (unknown) (no (unknown) (unknown) medication. No (units (unknown) date) vaginal bleeding. unknown) On ultrasound: Intrauterine gestational sac (unknown) (no (unknown) (unknown) migraines and (units ( unknown) date) these are getting unknown) a little better. She is using the prescribed (unknown) (no (unknown) (unknown) months other Iyla (units (unknown) date) unknown) (unknown) (no (unknown) (unknown) number of (units (unkn own) date) children: 3 unknown) (unknown) (no (unknown) (unknown) occasional 1 (units (u nknown) date) Percocet to treat unknown) these. Plan: 20 week ultrasound ordered. Alpha (unknown) (no (unknown) (unknown) occupational (units (u nknown) date) status: unemployed unknown) and previously employed (unknown) (no (unknown) (unknown) occurred due to (units (unknown) date) the inherent unknown) limitations of voice recognition software. Please (unknown) (no (unknown) (unknown) ondansetron 4 mg (units (unknown) date) disintegrating unknown) tablet 4 mg PO Q6H PRN nausea and vomiting #20 (unknown) (no (unknown) (unknown) or vaginal (units (unk nown) date) bleeding. On unknown) ultrasound: Breech presentation. AGA 29 weeks 2 days. (unknown) (no (unknown) (unknown) oxycodone 5 mg (units (unknown) date) tablet 5 mg PO Q6H unknown) PRN pain #10 tabs 10/12/22 [Rx Confirmed (unknown) (no (unknown) (unknown) pets and animals: (units (unknown) date) Yes (horses) unknown) (unknown) (no (unknown) (unknown) polyhydramnios (units (unknown) date) unknown) (unknown) (no (unknown) (unknown) precautions, (units (u nknown) date) Listeriosis unknown) prevention and Rubella Immunization (unknown) (no (unknown) (unknown) , third (units (unknown) date) trimester, Z3A.35 unknown) - 35 weeks gestation of (unknown) (no (unknown) (unknown) prenat.vits,alexey,m (units (unknown) date) gc-mlbp-tuxaf 1 unknown) tab PO DAILY 04/22/22 [History Confirmed (unknown) (no (unknown) (unknown) read the note (units ( unknown) date) carefully and unknown) recognize, using context, where these substitutions (unknown) (no (unknown) (unknown) really like to (units (unknown) date) meet w/ IBCLC unknown) prior to delivery and would like Rx for hospital (unknown) (no (unknown) (unknown) regular uterine (units (unknown) date) contractions, unknown) bleeding, leakage of fluid per vagina, or change (unknown) (no (unknown) (unknown) reports good (units (u nknown) date) movement and unknown) denies VB, LOF, contractions and cramping. She (unknown) (no (unknown) (unknown) reviewed. 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 (units (unkn own) date) Although every unknown) effort is made to edit content, fountain brush assembler errors (unknown) (no (unknown) (unknown) soon)) and (units (unk nown) date) children unknown) (unknown) (no (unknown) (unknown) special [place] (units ( unknown) date) needs: No unknown) (unknown) (no (unknown) (unknown) substance use (units (u nknown) date) type: marijuana unknown) (in the past, not recently and not while ) (unknown) (no (unknown) (unknown) tabs 05/17/22 [Rx (units (unknown) date) Confirmed unknown) 11/01/22] (unknown) (no (unknown) (unknown) term [place] (units ( unknown) date) Yonis unknown) (unknown) (no (unknown) (unknown) volume. The heart (units (unknown) date) and outflow tracts unknown) could not be visualized. Follow-up in 3 (unknown) (no (unknown) (unknown) water heater temp (units (unknown) date) set < 120 deg: Yes unknown) (unknown) (no (unknown) (unknown) week but they are (units (unknown) date) not lasting unknown) multiple days and not as intense. She is using an (unknown) (no (unknown) (unknown) weeks with repeat (units (unknown) date) ultrasound to unknown) check fluid. Warning signs reviewed. (unknown) (no (unknown) (unknown) weight gain, Fish (units (unknown) date) and mercury unknown) intake, Caffeine use, Exercise and activity, (unknown) (no (unknown) (unknown) well-balanced (units ( unknown) date) diet: daily or unknown) most days (unknown) (no (unknown) (unknown) with 11 weeks 3 (units (unknown) date) days. Left ovary unknown) is normal. Plan: Cell free DNA ordered. (unknown) (no (unknown) (unknown) with a fetus with (units (unknown) date) a crown-rump unknown) length measuring 4.63 cm. This is consistent (unknown) (no (unknown) (unknown) work/environmenta (units (unknown) date) l/hazards, Sexual unknown) activity, X-ray exposure, Medication use, (unknown) (no (unknown) (unknown) working smoke (units ( unknown) date) detector in home: unknown) Yes Result panel 167 (unknown) (no (unknown) (unknown) (no value) (units (unk nown) date) unknown) (unknown) (no (unknown) (unknown) 'syndrome';) (units (u nknown) date) unknown) (unknown) (no (unknown) (unknown) (+11 lb) 112/62 N (units (unknown) date) unknown) (unknown) (no (unknown) (unknown) (+13 lb) 118/68 N (units (unknown) date) unknown) (unknown) (no (unknown) (unknown) (+21 lb 7 oz) (units ( unknown) date) 98/68 N unknown) (unknown) (no (unknown) (unknown) (+27 lb) 110/70 N (units (unknown) date) unknown) (unknown) (no (unknown) (unknown) (+30 lb) 126/66 N (units (unknown) date) unknown) (unknown) (no (unknown) (unknown) (+34 lb) 104/68 N (units (unknown) date) unknown) (unknown) (no (unknown) (unknown) (+38 lb) 114/60 N (units (unknown) date) unknown) (unknown) (no (unknown) (unknown) (+6 lb) 108/68 N (units (unknown) date) unknown) (unknown) (no (unknown) (unknown) (1) Previous (units (u nknown) date) section unknown) complicating : (unknown) (no (unknown) (unknown) (2) 35 weeks (units (u nknown) date) gestation of unknown) : (unknown) (no (unknown) (unknown) Genetic (units (unkn own) date) Screening/Teratolo unknown) gy Counseling - Includes patient, baby's father, or (unknown) (no (unknown) (unknown) -?-?-?-?-?-?-?-?- (units (unknown) date) ?-?-?-? unknown) (unknown) (no (unknown) (unknown) .54 cm 1 week (units ( unknown) date) unknown) (unknown) (no (unknown) (unknown) 0.5 mL IM Left (units (unknown) date) Deltoid [id number] unknown) 05/03/23 [id number] SANOFI-PASTEUR (unknown) (no (unknown) (unknown) 01/24/14 41 17 7 (units (unknown) date) lb 1 oz Female unknown) live - full t (unknown) (no (unknown) (unknown) 02/19/21 39 7 lb (units (unknown) date) 12 oz Female live unknown) - full term (unknown) (no (unknown) (unknown) 05/13/22 (units (unkno wn) date) unknown) (unknown) (no (unknown) (unknown) 06/09/22 (units (unkno wn) date) unknown) (unknown) (no (unknown) (unknown) 06/16/15 38 7 lb (units (unknown) date) 13 oz Male unknown) live - full (unknown) (no (unknown) (unknown) 07/12/22 (units (unkno wn) date) unknown) (unknown) (no (unknown) (unknown) 08/15/22 (units (unkno wn) date) unknown) (unknown) (no (unknown) (unknown) 09/13/22 (units (unkno wn) date) unknown) (unknown) (no (unknown) (unknown) 10/04/22 (units (unkno wn) date) unknown) (unknown) (no (unknown) (unknown) 10/18/21 8 (units (unk nown) date) spontaneous unknown) (unknown) (no (unknown) (unknown) 10/18/22 (units (unkno wn) date) unknown) (unknown) (no (unknown) (unknown) 11:31 (units (unkno wn) date) unknown) (unknown) (no (unknown) (unknown) 11w 2d 261 lb (units ( unknown) date) unknown) (unknown) (no (unknown) (unknown) 11w3d 4 wks (units (un known) date) unknown) (unknown) (no (unknown) (unknown) 11/01/22 Single (units (unknown) date) Vaccine 06/25/21 unknown) (unknown) (no (unknown) (unknown) 11/01/22 (units (unkno wn) date) unknown) (unknown) (no (unknown) (unknown) 11/01/22] (units (unkn own) date) unknown) (unknown) (no (unknown) (unknown) 11/03/22 1302 (units ( unknown) date) unknown) (unknown) (no (unknown) (unknown) 15w 1d 266 lb (units ( unknown) date) unknown) (unknown) (no (unknown) (unknown) 19w 6d 268 lb (units ( unknown) date) unknown) (unknown) (no (unknown) (unknown) 2 lb 15 oz. (units (un known) date) 55%ile. Placenta unknown) grade 0 and anterior. Normal amniotic fluid (unknown) (no (unknown) (unknown) 2 wees or as (units (u nknown) date) needed. unknown) (unknown) (no (unknown) (unknown) 2 wks (units (unkno wn) date) unknown) (unknown) (no (unknown) (unknown) 20.14 cm. Grade 0 (units (unknown) date) placenta. Plan: unknown) Follow-up in 2 weeks. Warning signs (unknown) (no (unknown) (unknown) 24w 5d 276 lb 7 (units (unknown) date) oz unknown) (unknown) (no (unknown) (unknown) 28w 6d 282 lb (units ( unknown) date) unknown) (unknown) (no (unknown) (unknown) 3 wks (units (unkno wn) date) unknown) (unknown) (no (unknown) (unknown) 31 weeks (units (unkno wn) date) gestation. Good unknown) movement. No leakage of fluid or vaginal b (unknown) (no (unknown) (unknown) 31w 6d 285 lb (units ( unknown) date) unknown) (unknown) (no (unknown) (unknown) 33w 6d 289 lb (units ( unknown) date) unknown) (unknown) (no (unknown) (unknown) 35w 6d 293 lb (units ( unknown) date) unknown) (unknown) (no (unknown) (unknown) 5 wks (units (unkno wn) date) unknown) (unknown) (no (unknown) (unknown) ADHD (units (unkno wn) date) unknown) (unknown) (no (unknown) (unknown) Abnormal lab (units (u nknown) date) values 1st unknown) trimester: discussed (unknown) (no (unknown) (unknown) Add'l Plan (units (unk nown) date) Details unknown) (unknown) (no (unknown) (unknown) Additional (units (unk nown) date) Details:: 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 (unknown) (no (unknown) (unknown) Additional Social (units (unknown) date) History unknown) (unknown) (no (unknown) (unknown) Administered by: (units (unknown) date) Gi Culp MA unknown) on 11/01/22 14:04 (unknown) (no (unknown) (unknown) Age/Sex: 32 / F (units (unknown) date) Date of Service: unknown) (unknown) (no (unknown) (unknown) Alcoholism (units (unk nown) date) unknown) (unknown) (no (unknown) (unknown) Allergies (units (unkn own) date) unknown) (unknown) (no (unknown) (unknown) [place] (units ( unknown) date) [id number] unknown) (unknown) (no (unknown) (unknown) Anaphylaxis (units (un known) date) unknown) (unknown) (no (unknown) (unknown) Anesthesia (units (unk nown) date) unknown) (unknown) (no (unknown) (unknown) Aneuploidy (units (unk nown) date) Screening Offered: unknown) Accepted (Would like CFDNA if qualified) (unknown) (no (unknown) (unknown) Anticipated (units (un known) date) course of unknown) care: discussed (unknown) (no (unknown) (unknown) Assessment and (units (unknown) date) Plan unknown) (unknown) (no (unknown) (unknown) Attending Dr: (units ( unknown) date) Josefina Baumann unknown) (unknown) (no (unknown) (unknown) BMI 50.3 (units (unkno wn) date) unknown) (unknown) (no (unknown) (unknown) BP 114/60 (units (unkn own) date) unknown) (unknown) (no (unknown) (unknown) Yonis 2 months (units (unknown) date) post-dates unknown) induction (unknown) (no (unknown) (unknown) (units (unkno wn) date) Plan/Preferences unknown) (unknown) (no (unknown) (unknown) Planning (units (unknown) date) unknown) (unknown) (no (unknown) (unknown) Blood Pressure (units (unknown) date) Location Rt unknown) brachial (unknown) (no (unknown) (unknown) Blood (units (unkno wn) date) transfusions?: yes unknown) (Never had but would accept ) (unknown) (no (unknown) (unknown) Breastfeed Preg (units (unknown) date) Comp Name unknown) (unknown) (no (unknown) (unknown) 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) unknown) (unknown) (no (unknown) (unknown) Children's (units (unk nown) date) unknown) (unknown) (no (unknown) (unknown) Confirmed (units (unkn own) date) 11/01/22] unknown) (unknown) (no (unknown) (unknown) Current Estimate (units (unknown) date) 11/30/22 LMP unknown) (Certain) 36w 1d (unknown) (no (unknown) (unknown) Current (units (unknown) date) History unknown) (unknown) (no (unknown) (unknown) DNA (units (unkno wn) date) unknown) (unknown) (no (unknown) (unknown) : 1990 (units (unknown) date) Acct:[id number] unknown) (unknown) (no (unknown) (unknown) Date of positive (units (unknown) date) home unknown) test: 03/25/22 (unknown) (no (unknown) (unknown) Date (units (unkno wn) date) unknown) (unknown) (no (unknown) (unknown) Daughter Juvenile (units (unknown) date) arthritis unknown) (unknown) (no (unknown) (unknown) Del. Date (units (unkn own) date) GA/Weeks Labor unknown) Lgth Wt Sex Route Outcome Anesthesia Place (unknown) (no (unknown) (unknown) Delivery Date: (units (unknown) date) 02/19/21 Last unknown) Updated by: Susi Petersen RN (unknown) (no (unknown) (unknown) Delivery Date: (units (unknown) date) 06/16/15 Last unknown) Updated by: Susi Petersen RN (unknown) (no (unknown) (unknown) Delv (units (unkno wn) date) unknown) (unknown) (no (unknown) (unknown) Denies other (units (u nknown) date) unknown) (unknown) (no (unknown) (unknown) Denies over the (units (unknown) date) counter unknown) medications, Denies alcohol, Denies illicit drugs and (unknown) (no (unknown) (unknown) Depression (units (unk nown) date) () unknown) (unknown) (no (unknown) (unknown) Depression: (units (un known) date) discussed unknown) (unknown) (no (unknown) (unknown) Dept at (units (unkno wn) date) . unknown) (unknown) (no (unknown) (unknown) Diet and Exercise (units (unknown) date) unknown) (unknown) (no (unknown) (unknown) Discussed (units (unkno wn) date) anesthesia, but unknown) encouraged Brittany to discuss this more in depth with (unknown) (no (unknown) (unknown) Documented By: (units (unknown) date) Josefina Baumann unknownRichard FINE 11/01/22 1130 (unknown) (no (unknown) (unknown) Dose Route Admin (units (unknown) date) Location Lot unknown) Number Expiration Date NDC (unknown) (no (unknown) (unknown) ECTOR Calculator (units (unknown) date) unknown) (unknown) (no (unknown) (unknown) EGA Weight BP (units ( unknown) date) UGlucose unknown) (unknown) (no (unknown) (unknown) Eligibility (units (un known) date) Eligibility Date unknown) Funding Source (unknown) (no (unknown) (unknown) Estimated (units (unkn own) date) Delivery Date unknown) Method Current (unknown) (no (unknown) (unknown) Expected Delivery (units (unknown) date) Route/Plan unknown) (unknown) (no (unknown) (unknown) Family History (units (unknown) date) (Updated 06/08/22 unknown) @ 21:23 by Aurora Arevalo) (unknown) (no (unknown) (unknown) Father Diabetes (units (unknown) date) mellitus unknown) (unknown) (no (unknown) (unknown) Father of Baby: (units (unknown) date) same unknown) (unknown) (no (unknown) (unknown) [facility] ([facility] unknown) (unknown) (no (unknown) (unknown) First Trimester (units (unknown) date) Education unknown) Checklist (unknown) (no (unknown) (unknown) [place] 11/01/22 (units (unknown) date) Z23 - Encounter unknown) for immunization (unknown) (no (unknown) (unknown) Follow-up in 4 (units (unknown) date) weeks. Warning unknown) signs reviewed. kag (unknown) (no (unknown) (unknown) Follow-up in 4 (units (unknown) date) weeks. We will unknown) call with anatomic survey results. (unknown) (no (unknown) (unknown) Foot pain (-2020) (units (unknown) date) unknown) (unknown) (no (unknown) (unknown) (units (unkno wn) date) unknown) (unknown) (no (unknown) (unknown) Garde at her next (units (unknown) date) visit. f/u in 4 unknown) weeks. (unknown) (no (unknown) (unknown) Genetic Screening (units (unknown) date) + Counseling unknown) (unknown) (no (unknown) (unknown) Genetic Screening (units (unknown) date) unknown) (unknown) (no (unknown) (unknown) 5 (units (unkn own) date) Multiple births unknown) (unknown) (no (unknown) (unknown) HIV risk (units (unkno wn) date) evaluation: low unknown) risk (unknown) (no (unknown) (unknown) Health Center (units ( unknown) date) Education unknown) (unknown) (no (unknown) (unknown) Health center (units ( unknown) date) information: unknown) nature of practice discussed, personnel (unknown) (no (unknown) (unknown) Heavy menstrual (units (unknown) date) period (-2020) unknown) (unknown) (no (unknown) (unknown) Height 5 ft 4 in (units (unknown) date) unknown) (unknown) (no (unknown) (unknown) Hepatitis C risk (units (unknown) date) evaluation: low unknown) risk (unknown) (no (unknown) (unknown) History of (units (unk nown) date) Hepatitis B: No unknown) (unknown) (no (unknown) (unknown) History of (units (unk nown) date) Hepatitis C: No unknown) (unknown) (no (unknown) (unknown) History of (units (unk nown) date) polyhydramnios unknown) (unknown) (no (unknown) (unknown) History of (units (unk nown) date) surgery unknown) (unknown) (no (unknown) (unknown) Hospital: (units (u nknown) date) unknown) (unknown) (no (unknown) (unknown) [facility]. (units (unknown) date) unknown) (unknown) (no (unknown) (unknown) Hx # (units (u nknown) date) Pregnancies unknown) Elective abortions (unknown) (no (unknown) (unknown) Hx # Term (units (unkn own) date) Pregnancies 3 unknown) Ectopic pregnancies (unknown) (no (unknown) (unknown) Hx severe (units (unkn own) date) polyhydramnios unknown) (unknown) (no (unknown) (unknown) Hypothyroid (units (un known) date) unknown) (unknown) (no (unknown) (unknown) Immunizations (units ( unknown) date) unknown) (unknown) (no (unknown) (unknown) Infant will be (units (unknown) date) adopted?: no unknown) (unknown) (no (unknown) (unknown) Infection History (units (unknown) date) unknown) (unknown) (no (unknown) (unknown) Infectious (units (unk nown) date) Disease Education unknown) (unknown) (no (unknown) (unknown) Infectious (units (unk nown) date) disease exposure: unknown) chicken pox immunity discussed, hepatitis risk (unknown) (no (unknown) (unknown) Initial Weight: (units (unknown) date) 255 lb unknown) (unknown) (no (unknown) (unknown) Initials (units (unkno wn) date) unknown) (unknown) (no (unknown) (unknown) Intake Clinical (units (unknown) date) Staff unknown) (unknown) (no (unknown) (unknown) Intake Note: (units (u nknown) date) unknown) (unknown) (no (unknown) (unknown) Intake performed (units (unknown) date) by: Gi Culp unknown) (unknown) (no (unknown) (unknown) Intake (units (unkno wn) date) unknown) (unknown) (no (unknown) (unknown) LM (units (unkno wn) date) unknown) (unknown) (no (unknown) (unknown) Brittany and her (units (u nknown) date) children present unknown) for her SHERMAN visit now at 33+ 6 weeks (unknown) (no (unknown) (unknown) Brittany presents (units ( unknown) date) today with her 3 unknown) kids for a routine OB visit at 24w5d. She (unknown) (no (unknown) (unknown) Live with someone (units (unknown) date) with TB or exposed unknown) to TB: No (unknown) (no (unknown) (unknown) Loc: [facility] (units (unkno wn) date) unknown) (unknown) (no (unknown) (unknown) [id number] (units (unk nown) date) unknown) (unknown) (no (unknown) (unknown) [place] [employer] Corder (units (u nknown) date) unknown) (unknown) (no (unknown) (unknown) Marital status: (units (unknown) date) unknown) (unknown) (no (unknown) (unknown) Medical History (units (unknown) date) (Updated 11/03/22 unknown) @ 13:02 by Josefina Baumann MD) (unknown) (no (unknown) (unknown) Medications (units (un known) date) unknown) (unknown) (no (unknown) (unknown) Mental health (units ( unknown) date) problem unknown) (unknown) (no (unknown) (unknown) Migraine (units (unkno wn) date) headaches unknown) (unknown) (no (unknown) (unknown) Mother Depression (units (unknown) date) unknown) (unknown) (no (unknown) (unknown) N No no 146 15 (units (unknown) date) N/A absent 4 wks unknown) (unknown) (no (unknown) (unknown) N No no 168 11 (units (unknown) date) N/A absent unknown) long/closed AGA (unknown) (no (unknown) (unknown) N Yes no 143 32 (units (unknown) date) Breech absent HUNTER unknown) 20.14cm (unknown) (no (unknown) (unknown) Nearsightedness (units (unknown) date) unknown) (unknown) (no (unknown) (unknown) Not VFC Eligible (units (unknown) date) 11/01/22 Private unknown) Funds (unknown) (no (unknown) (unknown) Notes (units (unkno wn) date) unknown) (unknown) (no (unknown) (unknown) Number of Living (units (unknown) date) Children 3 unknown) (unknown) (no (unknown) (unknown) Number of (units (unkn own) date) fetuses:: Single unknown) (unknown) (no (unknown) (unknown) Nutrition and (units ( unknown) date) weight gain unknown) counseling: special diet: discussed (unknown) (no (unknown) (unknown) OB Office Visit (units (unknown) date) unknown) (unknown) (no (unknown) (unknown) OB Visit Log (units (u nknown) date) unknown) (unknown) (no (unknown) (unknown) OB check (units (unkno wn) date) unknown) (unknown) (no (unknown) (unknown) Obesity (units (unkno wn) date) unknown) (unknown) (no (unknown) (unknown) On control (units (unknown) date) at conception?: No unknown) (unknown) (no (unknown) (unknown) Orders (units (unkno wn) date) unknown) (unknown) (no (unknown) (unknown) Orders: (units (unkno wn) date) unknown) (unknown) (no (unknown) (unknown) PFSH (units (unkno wn) date) unknown) (unknown) (no (unknown) (unknown) PTSD (units (unkno wn) date) (post-traumatic unknown) stress disorder) (-1999) (unknown) (no (unknown) (unknown) Painful menstrual (units (unknown) date) periods () unknown) (unknown) (no (unknown) (unknown) Pap performed?: (units (unknown) date) No unknown) (unknown) (no (unknown) (unknown) Para 3 (units (unkno wn) date) Spontaneous unknown) abortions 1 (unknown) (no (unknown) (unknown) Partner history (units (unknown) date) of STD: denies hx unknown) (unknown) (no (unknown) (unknown) Partner history (units (unknown) date) of genital herpes: unknown) No (unknown) (no (unknown) (unknown) Partner: [facility] (units (unknown) date) White unknown) (unknown) (no (unknown) (unknown) Past Pregnancies (units (unknown) date) unknown) (unknown) (no (unknown) (unknown) Patient presents (units (unknown) date) accompanied by her unknown) children for routine visit at (unknown) (no (unknown) (unknown) Patient presents (units (unknown) date) for a new OB visit unknown) at 11 weeks gestation. She has had (unknown) (no (unknown) (unknown) Patient presents (units (unknown) date) for a routine unknown) visit at 15 weeks gestation. Cell (unknown) (no (unknown) (unknown) Patient presents (units (unknown) date) for a routine unknown) visit at 19 weeks gestation. She (unknown) (no (unknown) (unknown) Patient presents (units (unknown) date) for a routine unknown) visit at 28 weeks gestation. She (unknown) (no (unknown) (unknown) Patient presents (units (unknown) date) for a routine unknown) visit at 35 weeks 6 days. Good (unknown) (no (unknown) (unknown) Patient's age 34 (units (unknown) date) years or older as unknown) of estimated date of delivery: No (unknown) (no (unknown) (unknown) Patient: White (units (unknown) date) Brittany Lindquist MR#: unknown) (unknown) (no (unknown) (unknown) Production Inspector: (units ( unknown) date) Pediatric unknown) [facility] (unknown) (no (unknown) (unknown) Performing (units (unk nown) date) Provider: Josefina unknown) Angella Baumann MD (unknown) (no (unknown) (unknown) Personal history (units (unknown) date) of STD: denies hx unknown) (unknown) (no (unknown) (unknown) Personal history (units (unknown) date) of genital herpes: unknown) No (unknown) (no (unknown) (unknown) Planned repeat (units (unknown) date) C/S, 11/24/22 unknown) (unknown) (no (unknown) (unknown) Polyhydramnios (units (unknown) date) unknown) (unknown) (no (unknown) (unknown) Position Sitting (units (unknown) date) unknown) (unknown) (no (unknown) (unknown) Postive screening (units (unknown) date) CF (In scans) unknown) (unknown) (no (unknown) (unknown) (units (unk nown) date) depression unknown) (unknown) (no (unknown) (unknown) History (units (unknown) date) unknown) (unknown) (no (unknown) (unknown) type:: (units (unknown) date) Other Normal unknown) (unknown) (no (unknown) (unknown) (units (unkno wn) date) Education unknown) (unknown) (no (unknown) (unknown) Initial (units (unknown) date) Assessment unknown) (unknown) (no (unknown) (unknown) Specific (units (unknown) date) Issues/Plans unknown) (unknown) (no (unknown) (unknown) Testing: (units (unknown) date) discussed unknown) (unknown) (no (unknown) (unknown) Visit (units (unknown) date) unknown) (unknown) (no (unknown) (unknown) (units (unkno wn) date) education packet: unknown) symptoms, Vitamins and iron, Diet and (unknown) (no (unknown) (unknown) Previous (units (unknown) date) section unknown) (unknown) (no (unknown) (unknown) Primary Care (units (u nknown) date) Provider: [facility] unknown) [facility] (unknown) (no (unknown) (unknown) Primary Ob (units (unk nown) date) Provider: unknown) Josefina Baumann (unknown) (no (unknown) (unknown) Prior (units (unkno wn) date) GBS-Infected unknown) child: No (unknown) (no (unknown) (unknown) [place] (units (unk nown) date) [place] 4 unknown) (unknown) (no (unknown) (unknown) Providers (units (unkn own) date) unknown) (unknown) (no (unknown) (unknown) RPR pos, TPA (units (u nknown) date) negative unknown) (unknown) (no (unknown) (unknown) Rash or viral (units ( unknown) date) illness since last unknown) menstrual period: Yes (minor head cold) (unknown) (no (unknown) (unknown) Reason For Visit (units (unknown) date) unknown) (unknown) (no (unknown) (unknown) Recent travel (units ( unknown) date) outside of unknown) country?: No (unknown) (no (unknown) (unknown) Recurrent (units (unkn own) date) loss or unknown) a stillbirth: No (unknown) (no (unknown) (unknown) Repeat (units (unknown) date) section with unknown) bilateral salpingectomy (unknown) (no (unknown) (unknown) Reports Other (units ( unknown) date) (Older son unknown) undergoing genetic workup for currently unidentified (unknown) (no (unknown) (unknown) 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 unknown) (unknown) (no (unknown) (unknown) Safety (units (unkno wn) date) unknown) (unknown) (no (unknown) (unknown) Sauna/hot tub (units ( unknown) date) use, Dental care, unknown) Marijuana use, Travel and Influenza vaccine (no (unknown) (no (unknown) (unknown) Signed By: (units (unk nown) date) <Electronically unknown) signed by Josefina Baumann MD> (unknown) (no (unknown) (unknown) Signed (units (unkno wn) date) unknown) (unknown) (no (unknown) (unknown) Smoking Status: (units (unknown) date) Former smoker unknown) (Quit-2020) (unknown) (no (unknown) (unknown) Social History (units (unknown) date) unknown) (unknown) (no (unknown) (unknown) Son Hearing loss (units (unknown) date) unknown) (unknown) (no (unknown) (unknown) Son undergoing (units (unknown) date) workup at unknown) [facility] (unknown) (no (unknown) (unknown) Status: Acute (units ( unknown) date) unknown) (unknown) (no (unknown) (unknown) Strep Grp B PCR (units (unknown) date) 11/01/22 Z34.83 - unknown) Encounter for supervision of other normal (unknown) (no (unknown) (unknown) Support (units (unkno wn) date) Person(s):: [facility] unknown) (unknown) (no (unknown) (unknown) Surgical History (units (unknown) date) (Updated 07/12/22 unknown) @ 15:10 by Josefina Baumann MD) (unknown) (no (unknown) (unknown) Surrogate (units (unkn own) date) ?: no unknown) (unknown) (no (unknown) (unknown) Symptoms since (units (unknown) date) LMP: Reports unknown) amenorrhea, nausea, fatigue, urinary frequency, (unknown) (no (unknown) (unknown) TR Yes no 138 30 (units (unknown) date) Breech absent AGA unknown) 29w2d (unknown) (no (unknown) (unknown) TR Yes no 143 26 (units (unknown) date) N/A absent 4 wks unknown) (unknown) (no (unknown) (unknown) TR Yes no 144 21 (units (unknown) date) N/A absent 4 wks unknown) (unknown) (no (unknown) (unknown) TR Yes no 148 36 (units (unknown) date) Vertex absent HUNTER unknown) 23.99 c (unknown) (no (unknown) (unknown) TR Yes no 161 40 (units (unknown) date) Vertex absent GBS unknown) HUNTER 18 (unknown) (no (unknown) (unknown) TSH. Discussed (units (unknown) date) TDAP vaccination unknown) nv. She had questions regarding anesthesia (unknown) (no (unknown) (unknown) Tdap, declines (units (unknown) date) flu unknown) (unknown) (no (unknown) (unknown) Teratogen (units (unkn own) date) Exposures since unknown) LMP/Conception: Denies prescription medications, (unknown) (no (unknown) (unknown) Testing Education (units (unknown) date) unknown) (unknown) (no (unknown) (unknown) Testing education (units (unknown) date) completed: group B unknown) strep, Spina bifida testing and Cell Free (unknown) (no (unknown) (unknown) This note may (units ( unknown) date) have been all or unknown) partially generated using voice recognition (unknown) (no (unknown) (unknown) 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 [place] (unknown) (no (unknown) (unknown) Tobacco + (units (unkn own) date) Substance Use unknown) (unknown) (no (unknown) (unknown) Tobacco Status (units (unknown) date) unknown) (unknown) (no (unknown) (unknown) Trimester:: 3rd (units (unknown) date) Trimester unknown) (28wks-Del) (unknown) (no (unknown) (unknown) Type(s) of (units (unk nown) date) exercise: walking unknown) (unknown) (no (unknown) (unknown) UProtein Movement (units (unknown) date) PreLabor FHR Fndl unknown) Ht Pres Edema Cerv Exam US/Comment Next Appt (unknown) (no (unknown) (unknown) Ultrasound (units (unk nown) date) performed?: Yes unknown) (unknown) (no (unknown) (unknown) VIS Given Date (units (unknown) date) VIS Provided VIS unknown) Publication Date (unknown) (no (unknown) (unknown) Varicella/chicken (units (unknown) date) pox status: unknown) immunized (unknown) (no (unknown) (unknown) Visit Date: (units (un known) date) 05/13/22 Last unknown) Updated by: Josefina Baumann MD (unknown) (no (unknown) (unknown) Visit Date: (units (un known) date) 06/09/22 Last unknown) Updated by: Josefina Baumann MD (unknown) (no (unknown) (unknown) Visit Date: (units (un known) date) 07/12/22 Last unknown) Updated by: Josefina Baumann MD (unknown) (no (unknown) (unknown) Visit Date: (units (un known) date) 08/15/22 Last unknown) Updated by: Anita Perez P.A-C (unknown) (no (unknown) (unknown) Visit Date: (units (un known) date) 09/13/22 Last unknown) Updated by: Josefina Baumann MD (unknown) (no (unknown) (unknown) Visit Date: (units (un known) date) 10/04/22 Last unknown) Updated by: Josefina Baumann MD (unknown) (no (unknown) (unknown) Visit Date: (units (un known) date) 10/18/22 Last unknown) Updated by: Glen Ojeda MD (unknown) (no (unknown) (unknown) Visit Date: (units (un known) date) 11/01/22 Last unknown) Updated by: Josefina Baumann MD (unknown) (no (unknown) (unknown) Visit Reasons: OB (units (unknown) date) Check w/HUNTER unknown) (unknown) (no (unknown) (unknown) Vitals (units (unkno wn) date) unknown) (unknown) (no (unknown) (unknown) WG (units (unkno wn) date) unknown) (unknown) (no (unknown) (unknown) Weeks gestation:: (units (unknown) date) 35 unknown) (unknown) (no (unknown) (unknown) Weight 293 lb (units ( unknown) date) unknown) (unknown) (no (unknown) (unknown) [place] teeth (units (u nknown) date) extracted unknown) (unknown) (no (unknown) (unknown) Would like (units (unk nown) date) referral unknown) to [facility] breast pump at (unknown) (no (unknown) (unknown) Zika virus (units (unk nown) date) exposure: No unknown) (unknown) (no (unknown) (unknown) additional social (units (unknown) date) history: unknown) Difficulty other children. Would (unknown) (no (unknown) (unknown) alcohol intake: (units (unknown) date) former unknown) (unknown) (no (unknown) (unknown) anyone in either (units (unknown) date) family with: unknown) (unknown) (no (unknown) (unknown) attempted, unable (units (unknown) date) other [place] unknown) (unknown) (no (unknown) (unknown) azithromycin 250 (units (unknown) date) mg tablet See Rx unknown) Instructions PO .COMPLEX #6 tabs 10/07/22 [Rx (unknown) (no (unknown) (unknown) because she has (units (unknown) date) had difficult unknown) spinals with all 3 of her deliveries. 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 On (units (unknown) date) ultrasound: Vertex unknown) presentation. HUNTER 18.54 cm. Grade 0 (unknown) (no (unknown) (unknown) current (units (unkno wn) date) occupational unknown) exposures/hazards: Yes (unknown) (no (unknown) (unknown) daily servings (units (unknown) date) fruits/ve or unknown) more times/day (unknown) (no (unknown) (unknown) date. (units (unkno wn) date) unknown) (unknown) (no (unknown) (unknown) delivery. (units (unkn own) date) unknown) (unknown) (no (unknown) (unknown) described, visit (units (unknown) date) schedule reviewed, unknown) ultrasounds policy reviewed, coverage 24 (unknown) (no (unknown) (unknown) discussed, (units (unk nown) date) tuberculosis unknown) exposure discussed, CMV discussed, Toxoplasmosis (unknown) (no (unknown) (unknown) do you feel safe (units (unknown) date) at home: Yes unknown) (unknown) (no (unknown) (unknown) double electric (units (unknown) date) breast pump 1 ea unknown) topical .prn #1 ea 11/01/22 [Rx] (unknown) (no (unknown) (unknown) during the past (units (unknown) date) year weight has: unknown) other (wide fluctuations since last ) (unknown) (no (unknown) (unknown) education level: (units (unknown) date) vocational (some unknown) college, certificate programs) (unknown) (no (unknown) (unknown) erm [place] (units (u nknown) date) unknown) (unknown) (no (unknown) (unknown) executed today. (units (unknown) date) Labor precautions unknown) reviewed and follow-up SHERMAN w/ HUNTER will be in (unknown) (no (unknown) (unknown) f/u limited (units (un known) date) anatomy views at unknown) 28wk visit with Dr. Baumann. Ordered OGTT, CBC and (unknown) (no (unknown) (unknown) failure to (units (unk nown) date) progress Rose[place] unknown) (unknown) (no (unknown) (unknown) felt rare (units (unknown) date) movement. No unknown) leakage of fluid or vaginal bleeding. Plan: (unknown) (no (unknown) (unknown) movement. (units (unknown) date) No leakage of unknown) fluid or vaginal bleeding. No regular (unknown) (no (unknown) (unknown) fetoprotein (units (un known) date) ordered. Warning unknown) signs reviewed. Follow-up in 5 weeks. kag (unknown) (no (unknown) (unknown) fire extinguisher (units (unknown) date) in home: Yes unknown) (unknown) (no (unknown) (unknown) firearms in home: (units (unknown) date) Yes firearms unknown) unloaded and locked: Yes (unknown) (no (unknown) (unknown) flaxseed Allergy (units (unknown) date) (Severe, Verified unknown) 11/01/22 11:31) (unknown) (no (unknown) (unknown) flu or covid (units (u nknown) date) vaccines received) unknown) (unknown) (no (unknown) (unknown) flu vac qv (units (unk nown) date) 2021(17yr unknown) up)rcm-PF (unknown) (no (unknown) (unknown) free DNA showed (units (unknown) date) normal female. She unknown) continues to have migraines several days a (unknown) (no (unknown) (unknown) from 2 weeks ago (units (unknown) date) and slightly above unknown) the normal range for this EGA. HHS form 687 (unknown) (no (unknown) (unknown) gestational age. (units (unknown) date) She is having a unknown) few Eriberto Weinstein contractions but denies (unknown) (no (unknown) (unknown) grade breast pump (units (unknown) date) that she can have unknown) when she goes home from hospital after (unknown) (no (unknown) (unknown) had her 20 week (units (unknown) date) ultrasound today. unknown) Those results are not available. She has (unknown) (no (unknown) (unknown) had limited heart (units (unknown) date) and outflow tract unknown) views from her anatomy US. Plan 3D US and (unknown) (no (unknown) (unknown) have occurred. If (units (unknown) date) there are any unknown) questions, please contact the Medical Records (unknown) (no (unknown) (unknown) hours a day and (units (unknown) date) participation of unknown) father in care and office visits (unknown) (no (unknown) (unknown) household members: (units (unknown) date) spouse, family unknown) ([id number] and his 3 children (moving out (unknown) (no (unknown) (unknown) housing: house (units (unknown) date) unknown) (unknown) (no (unknown) (unknown) hydroxyzine HCl (units (unknown) date) 25 mg tablet 25 mg unknown) PO TID PRN anxiety #20 tabs 09/16/22 [Rx (unknown) (no (unknown) (unknown) in discharge. Her (units (unknown) date) baby remains unknown) active however. HUNTER today is slightly increased (unknown) (no (unknown) (unknown) is still having (units (unknown) date) occasional unknown) headaches. Good movement. No leakage of fluid (unknown) (no (unknown) (unknown) jw (units (unkno wn) date) unknown) (unknown) (no (unknown) (unknown) kag (units (unkno wn) date) unknown) (unknown) (no (unknown) (unknown) leeding. No (units (un known) date) regular unknown) contractions. On ultrasound: Breech presentation. HUNTER (unknown) (no (unknown) (unknown) levothyroxine 137 (units (unknown) date) mcg tablet 137 mcg unknown) PO DAILY #30 tabs 10/17/22 [Rx Confirmed (unknown) (no (unknown) (unknown) lives (units (unkno wn) date) independently: Yes unknown) (unknown) (no (unknown) (unknown) m 2 wks (units (unkno wn) date) unknown) (unknown) (no (unknown) (unknown) magnesium 200 mg (units (unknown) date) tablet 200 mg PO unknown) DAILY 05/03/22 [History Confirmed 11/01/22] (unknown) (no (unknown) (unknown) marital status: (units (unknown) date) unknown) (unknown) (no (unknown) (unknown) may occur. (units (unk nown) date) Occasional unknown) wrong-word or 'sound-alike' substitutions may have (unknown) (no (unknown) (unknown) medication. No (units (unknown) date) vaginal bleeding. unknown) On ultrasound: Intrauterine gestational sac (unknown) (no (unknown) (unknown) migraines and (units ( unknown) date) these are getting unknown) a little better. She is using the prescribed (unknown) (no (unknown) (unknown) months other Iyla (units (unknown) date) unknown) (unknown) (no (unknown) (unknown) number of (units (unkn own) date) children: 3 unknown) (unknown) (no (unknown) (unknown) occasional 1 (units (u nknown) date) Percocet to treat unknown) these. Plan: 20 week ultrasound ordered. Alpha (unknown) (no (unknown) (unknown) occupational (units (u nknown) date) status: unemployed unknown) and previously employed (unknown) (no (unknown) (unknown) occurred due to (units (unknown) date) the inherent unknown) limitations of voice recognition software. Please (unknown) (no (unknown) (unknown) ondansetron 4 mg (units (unknown) date) disintegrating unknown) tablet 4 mg PO Q6H PRN nausea and vomiting #20 (unknown) (no (unknown) (unknown) or vaginal (units (unk nown) date) bleeding. On unknown) ultrasound: Breech presentation. AGA 29 weeks 2 days. (unknown) (no (unknown) (unknown) oxycodone 5 mg (units (unknown) date) tablet 5 mg PO Q6H unknown) PRN pain #10 tabs 10/12/22 [Rx Confirmed (unknown) (no (unknown) (unknown) pets and animals: (units (unknown) date) Yes (horses) unknown) (unknown) (no (unknown) (unknown) placenta. Plan: (units (unknown) date) GBS obtained. unknown) Follow-up in 1 week. Warning signs reviewed. (unknown) (no (unknown) (unknown) polyhydramnios (units (unknown) date) unknown) (unknown) (no (unknown) (unknown) precautions, (units (u nknown) date) Listeriosis unknown) prevention and Rubella Immunization (unknown) (no (unknown) (unknown) , third (units (unknown) date) trimester, [id number] unknown) - 35 weeks gestation of (unknown) (no (unknown) (unknown) prenat.vits,alexey,m (units (unknown) date) [id number]-rojzq 1 unknown) tab PO DAILY 04/22/22 [History Confirmed (unknown) (no (unknown) (unknown) read the note (units ( unknown) date) carefully and unknown) recognize, using context, where these substitutions (unknown) (no (unknown) (unknown) really like to (units (unknown) date) meet w/ IBCLC unknown) prior to delivery and would like Rx for hospital (unknown) (no (unknown) (unknown) regular uterine (units (unknown) date) contractions, unknown) bleeding, leakage of fluid per vagina, or change (unknown) (no (unknown) (unknown) reports good (units (u nknown) date) movement and unknown) denies VB, LOF, contractions and cramping. She (unknown) (no (unknown) (unknown) reviewed. 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 (units (unkn own) date) Although every unknown) effort is made to edit content, fountain brush assembler errors (unknown) (no (unknown) (unknown) soon)) and (units (unk nown) date) children unknown) (unknown) (no (unknown) (unknown) special [place]land (units ( unknown) date) needs: No unknown) (unknown) (no (unknown) (unknown) substance use (units (u nknown) date) type: marijuana unknown) (in the past, not recently and not while ) (unknown) (no (unknown) (unknown) tabs 05/17/22 [Rx (units (unknown) date) Confirmed unknown) 11/01/22] (unknown) (no (unknown) (unknown) term [place] (units ( unknown) date) [place] unknown) (unknown) (no (unknown) (unknown) volume. The heart (units (unknown) date) and outflow tracts unknown) could not be visualized. Follow-up in 3 (unknown) (no (unknown) (unknown) water heater temp (units (unknown) date) set < 120 deg: Yes unknown) (unknown) (no (unknown) (unknown) week but they are (units (unknown) date) not lasting unknown) multiple days and not as intense. She is using an (unknown) (no (unknown) (unknown) weeks with repeat (units (unknown) date) ultrasound to unknown) check fluid. Warning signs reviewed. (unknown) (no (unknown) (unknown) weight gain, Fish (units (unknown) date) and mercury unknown) intake, Caffeine use, Exercise and activity, (unknown) (no (unknown) (unknown) well-balanced (units ( unknown) date) diet: daily or unknown) most days (unknown) (no (unknown) (unknown) with 11 weeks 3 (units (unknown) date) days. Left ovary unknown) is normal. Plan: Cell free DNA ordered. (unknown) (no (unknown) (unknown) with a fetus with (units (unknown) date) a crown-rump unknown) length measuring 4.63 cm. This is consistent (unknown) (no (unknown) (unknown) work/environmenta (units (unknown) date) l/hazards, Sexual unknown) activity, X-ray exposure, Medication use, (unknown) (no (unknown) (unknown) working smoke (units ( unknown) date) detector in home: unknown) Yes Result panel 168 (unknown) (no (unknown) (unknown) (no value) (units (unk nown) date) unknown) (unknown) (no (unknown) (unknown) 'syndrome';) (units (u nknown) date) unknown) (unknown) (no (unknown) (unknown) (+11 lb) 112/62 N (units (unknown) date) unknown) (unknown) (no (unknown) (unknown) (+13 lb) 118/68 N (units (unknown) date) unknown) (unknown) (no (unknown) (unknown) (+21 lb 7 oz) (units ( unknown) date) 98/68 N unknown) (unknown) (no (unknown) (unknown) (+27 lb) 110/70 N (units (unknown) date) unknown) (unknown) (no (unknown) (unknown) (+30 lb) 126/66 N (units (unknown) date) unknown) (unknown) (no (unknown) (unknown) (+34 lb) 104/68 N (units (unknown) date) unknown) (unknown) (no (unknown) (unknown) (+38 lb) 114/60 N (units (unknown) date) unknown) (unknown) (no (unknown) (unknown) (+6 lb) 108/68 N (units (unknown) date) unknown) (unknown) (no (unknown) (unknown) Genetic (units (unkn own) date) Screening/Teratolo unknown) gy Counseling - Includes patient, baby's father, or (unknown) (no (unknown) (unknown) -?-?-?-?-?-?-?-?- (units (unknown) date) ?-?-?-? unknown) (unknown) (no (unknown) (unknown) .54 cm 1 week (units ( unknown) date) unknown) (unknown) (no (unknown) (unknown) 01/24/14 41 17 7 (units (unknown) date) lb 1 oz Female unknown) live - full t (unknown) (no (unknown) (unknown) 02/19/21 39 7 lb (units (unknown) date) 12 oz Female live unknown) - full term (unknown) (no (unknown) (unknown) 05/13/22 (units (unkno wn) date) unknown) (unknown) (no (unknown) (unknown) 06/09/22 (units (unkno wn) date) unknown) (unknown) (no (unknown) (unknown) 06/16/15 38 7 lb (units (unknown) date) 13 oz Male unknown) live - full (unknown) (no (unknown) (unknown) 07/12/22 (units (unkno wn) date) unknown) (unknown) (no (unknown) (unknown) 08/15/22 (units (unkno wn) date) unknown) (unknown) (no (unknown) (unknown) 09/13/22 (units (unkno wn) date) unknown) (unknown) (no (unknown) (unknown) 10/04/22 (units (unkno wn) date) unknown) (unknown) (no (unknown) (unknown) 10/18/21 8 (units (unk nown) date) spontaneous unknown) (unknown) (no (unknown) (unknown) 10/18/22 (units (unkno wn) date) unknown) (unknown) (no (unknown) (unknown) 11w 2d 261 lb (units ( unknown) date) unknown) (unknown) (no (unknown) (unknown) 11w3d 4 wks (units (un known) date) unknown) (unknown) (no (unknown) (unknown) 11/01/22 (units (unkno wn) date) unknown) (unknown) (no (unknown) (unknown) 11/15/22 (units (unkno wn) date) unknown) (unknown) (no (unknown) (unknown) 15w 1d 266 lb (units ( unknown) date) unknown) (unknown) (no (unknown) (unknown) 19w 6d 268 lb (units ( unknown) date) unknown) (unknown) (no (unknown) (unknown) 2 lb 15 oz. (units (un known) date) 55%ile. Placenta unknown) grade 0 and anterior. Normal amniotic fluid (unknown) (no (unknown) (unknown) 2 wees or as (units (u nknown) date) needed. unknown) (unknown) (no (unknown) (unknown) 2 wks (units (unkno wn) date) unknown) (unknown) (no (unknown) (unknown) 20.14 cm. Grade 0 (units (unknown) date) placenta. Plan: unknown) Follow-up in 2 weeks. Warning signs (unknown) (no (unknown) (unknown) 24w 5d 276 lb 7 (units (unknown) date) oz unknown) (unknown) (no (unknown) (unknown) 28w 6d 282 lb (units ( unknown) date) unknown) (unknown) (no (unknown) (unknown) 3 wks (units (unkno wn) date) unknown) (unknown) (no (unknown) (unknown) 31 weeks (units (unkno wn) date) gestation. Good unknown) movement. No leakage of fluid or vaginal b (unknown) (no (unknown) (unknown) 31w 6d 285 lb (units ( unknown) date) unknown) (unknown) (no (unknown) (unknown) 33w 6d 289 lb (units ( unknown) date) unknown) (unknown) (no (unknown) (unknown) 35w 6d 293 lb (units ( unknown) date) unknown) (unknown) (no (unknown) (unknown) 5 wks (units (unkno wn) date) unknown) (unknown) (no (unknown) (unknown) ADHD (units (unkno wn) date) unknown) (unknown) (no (unknown) (unknown) Abnormal lab (units (u nknown) date) values 1st unknown) trimester: discussed (unknown) (no (unknown) (unknown) Add'l Plan (units (unk nown) date) Details unknown) (unknown) (no (unknown) (unknown) Additional (units (unk nown) date) Details:: 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 (unknown) (no (unknown) (unknown) Additional Social (units (unknown) date) History unknown) (unknown) (no (unknown) (unknown) Age/Sex: 32 / F (units (unknown) date) Date of Service: unknown) (unknown) (no (unknown) (unknown) Alcoholism (units (unk nown) date) unknown) (unknown) (no (unknown) (unknown) Allergies (units (unkn own) date) unknown) (unknown) (no (unknown) (unknown) [place] (units ( unknown) date) [id number] unknown) (unknown) (no (unknown) (unknown) Anaphylaxis (units (un known) date) unknown) (unknown) (no (unknown) (unknown) Anesthesia (units (unk nown) date) unknown) (unknown) (no (unknown) (unknown) Aneuploidy (units (unk nown) date) Screening Offered: unknown) Accepted (Would like CFDNA if qualified) (unknown) (no (unknown) (unknown) Anticipated (units (un known) date) course of unknown) care: discussed (unknown) (no (unknown) (unknown) Assessment and (units (unknown) date) Plan unknown) (unknown) (no (unknown) (unknown) Attending Dr: (units ( unknown) date) Glen Ojeda MD unknown) (unknown) (no (unknown) (unknown) Yonis 2 months (units (unknown) date) post-dates unknown) induction (unknown) (no (unknown) (unknown) (units (unkno wn) date) Plan/Preferences unknown) (unknown) (no (unknown) (unknown) Planning (units (unknown) date) unknown) (unknown) (no (unknown) (unknown) Blood (units (unkno wn) date) transfusions?: yes unknown) (Never had but would accept ) (unknown) (no (unknown) (unknown) Breastfeed Preg (units (unknown) date) Comp Name unknown) (unknown) (no (unknown) (unknown) 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) unknown) (unknown) (no (unknown) (unknown) Children's (units (unk nown) date) unknown) (unknown) (no (unknown) (unknown) Current Estimate (units (unknown) date) 11/30/22 LMP unknown) (Certain) 37w 6d (unknown) (no (unknown) (unknown) Current (units (unknown) date) History unknown) (unknown) (no (unknown) (unknown) DNA (units (unkno wn) date) unknown) (unknown) (no (unknown) (unknown) : 1990 (units (unknown) date) Acct:[id number] unknown) (unknown) (no (unknown) (unknown) Date of positive (units (unknown) date) home unknown) test: 03/25/22 (unknown) (no (unknown) (unknown) Date (units (unkno wn) date) unknown) (unknown) (no (unknown) (unknown) Daughter Juvenile (units (unknown) date) arthritis unknown) (unknown) (no (unknown) (unknown) Del. Date (units (unkn own) date) GA/Weeks Labor unknown) Lgth Wt Sex Route Outcome Anesthesia Place (unknown) (no (unknown) (unknown) Delivery Date: (units (unknown) date) 02/19/21 Last unknown) Updated by: Susi Petersen RN (unknown) (no (unknown) (unknown) Delivery Date: (units (unknown) date) 06/16/15 Last unknown) Updated by: Susi Petersen RN (unknown) (no (unknown) (unknown) Delv (units (unkno wn) date) unknown) (unknown) (no (unknown) (unknown) Denies other (units (u nknown) date) unknown) (unknown) (no (unknown) (unknown) Denies over the (units (unknown) date) counter unknown) medications, Denies alcohol, Denies illicit drugs and (unknown) (no (unknown) (unknown) Depression (units (unk nown) date) (-1999) unknown) (unknown) (no (unknown) (unknown) Depression: (units (un known) date) discussed unknown) (unknown) (no (unknown) (unknown) Dept at (units (unkno wn) date) . unknown) (unknown) (no (unknown) (unknown) Diet and Exercise (units (unknown) date) unknown) (unknown) (no (unknown) (unknown) Discussed (units (unkno wn) date) anesthesia, but unknown) encouraged Brittany to discuss this more in depth with (unknown) (no (unknown) (unknown) Documented By: (units (unknown) date) Glen Ojeda MD unknown) 11/15/22 1103 (unknown) (no (unknown) (unknown) Draft (units (unkno wn) date) unknown) (unknown) (no (unknown) (unknown) ECTOR Calculator (units (unknown) date) unknown) (unknown) (no (unknown) (unknown) EGA Weight BP (units ( unknown) date) UGlucose unknown) (unknown) (no (unknown) (unknown) Estimated (units (unkn own) date) Delivery Date unknown) Method Current (unknown) (no (unknown) (unknown) Expected Delivery (units (unknown) date) Route/Plan unknown) (unknown) (no (unknown) (unknown) Family History (units (unknown) date) (Updated 06/08/22 unknown) @ 21:23 by Aurora Arevalo) (unknown) (no (unknown) (unknown) Father Diabetes (units (unknown) date) mellitus unknown) (unknown) (no (unknown) (unknown) Father of Baby: (units (unknown) date) same unknown) (unknown) (no (unknown) (unknown) [facility] ([facility] unknown) (unknown) (no (unknown) (unknown) First Trimester (units (unknown) date) Education unknown) Checklist (unknown) (no (unknown) (unknown) Follow-up in 4 (units (unknown) date) weeks. Warning unknown) signs reviewed. kag (unknown) (no (unknown) (unknown) Follow-up in 4 (units (unknown) date) weeks. We will unknown) call with anatomic survey results. (unknown) (no (unknown) (unknown) Foot pain (-2020) (units (unknown) date) unknown) (unknown) (no (unknown) (unknown) (units (unkno wn) date) unknown) (unknown) (no (unknown) (unknown) [place] at her next (units (unknown) date) visit. f/u in 4 unknown) weeks. (unknown) (no (unknown) (unknown) Genetic Screening (units (unknown) date) + Counseling unknown) (unknown) (no (unknown) (unknown) Genetic Screening (units (unknown) date) unknown) (unknown) (no (unknown) (unknown) 5 (units (unkn own) date) Multiple births unknown) (unknown) (no (unknown) (unknown) HIV risk (units (unkno wn) date) evaluation: low unknown) risk (unknown) (no (unknown) (unknown) Health Center (units ( unknown) date) Education unknown) (unknown) (no (unknown) (unknown) Health center (units ( unknown) date) information: unknown) nature of practice discussed, personnel (unknown) (no (unknown) (unknown) Heavy menstrual (units (unknown) date) period (-2020) unknown) (unknown) (no (unknown) (unknown) Hepatitis C risk (units (unknown) date) evaluation: low unknown) risk (unknown) (no (unknown) (unknown) History of (units (unk nown) date) Hepatitis B: No unknown) (unknown) (no (unknown) (unknown) History of (units (unk nown) date) Hepatitis C: No unknown) (unknown) (no (unknown) (unknown) History of (units (unk nown) date) polyhydramnios unknown) (unknown) (no (unknown) (unknown) History of (units (unk nown) date) surgery unknown) (unknown) (no (unknown) (unknown) Hospital: (units (u nknown) date) unknown) (unknown) (no (unknown) (unknown) [facility]. (units (unknown) date) unknown) (unknown) (no (unknown) (unknown) Hx # (units (u nknown) date) Pregnancies unknown) Elective abortions (unknown) (no (unknown) (unknown) Hx # Term (units (unkn own) date) Pregnancies 3 unknown) Ectopic pregnancies (unknown) (no (unknown) (unknown) Hx severe (units (unkn own) date) polyhydramnios unknown) (unknown) (no (unknown) (unknown) Hypothyroid (units (un known) date) unknown) (unknown) (no (unknown) (unknown) Infant will be (units (unknown) date) adopted?: no unknown) (unknown) (no (unknown) (unknown) Infection History (units (unknown) date) unknown) (unknown) (no (unknown) (unknown) Infectious (units (unk nown) date) Disease Education unknown) (unknown) (no (unknown) (unknown) Infectious (units (unk nown) date) disease exposure: unknown) chicken pox immunity discussed, hepatitis risk (unknown) (no (unknown) (unknown) Initial Weight: (units (unknown) date) 255 lb unknown) (unknown) (no (unknown) (unknown) Initials (units (unkno wn) date) unknown) (unknown) (no (unknown) (unknown) Intake (units (unkno wn) date) unknown) (unknown) (no (unknown) (unknown) LM (units (unkno wn) date) unknown) (unknown) (no (unknown) (unknown) Brittany and her (units (u nknown) date) children present unknown) for her SHERMAN visit now at 33+ 6 weeks (unknown) (no (unknown) (unknown) Brittany presents (units ( unknown) date) today with her 3 unknown) kids for a routine OB visit at 24w5d. She (unknown) (no (unknown) (unknown) Live with someone (units (unknown) date) with TB or exposed unknown) to TB: No (unknown) (no (unknown) (unknown) Loc: [facility] (units (unkno wn) date) unknown) (unknown) (no (unknown) (unknown) [id number] (units (unk nown) date) unknown) (unknown) (no (unknown) (unknown) Marital status: (units (unknown) date) unknown) (unknown) (no (unknown) (unknown) Medical History (units (unknown) date) (Updated 11/03/22 unknown) @ 13:02 by Josefina Baumann MD) (unknown) (no (unknown) (unknown) Mental health (units ( unknown) date) problem unknown) (unknown) (no (unknown) (unknown) Migraine (units (unkno wn) date) headaches unknown) (unknown) (no (unknown) (unknown) Mother Depression (units (unknown) date) unknown) (unknown) (no (unknown) (unknown) N No no 146 15 (units (unknown) date) N/A absent 4 wks unknown) (unknown) (no (unknown) (unknown) N No no 168 11 (units (unknown) date) N/A absent unknown) long/closed AGA (unknown) (no (unknown) (unknown) N Yes no 143 32 (units (unknown) date) Breech absent HUNTER unknown) 20.14cm (unknown) (no (unknown) (unknown) Nearsightedness (units (unknown) date) unknown) (unknown) (no (unknown) (unknown) Notes (units (unkno wn) date) unknown) (unknown) (no (unknown) (unknown) Number of Living (units (unknown) date) Children 3 unknown) (unknown) (no (unknown) (unknown) Number of (units (unkn own) date) fetuses:: Single unknown) (unknown) (no (unknown) (unknown) Nutrition and (units ( unknown) date) weight gain unknown) counseling: special diet: discussed (unknown) (no (unknown) (unknown) OB Office Visit (units (unknown) date) unknown) (unknown) (no (unknown) (unknown) OB Visit Log (units (u nknown) date) unknown) (unknown) (no (unknown) (unknown) Obesity (units (unkno wn) date) unknown) (unknown) (no (unknown) (unknown) On control (units (unknown) date) at conception?: No unknown) (unknown) (no (unknown) (unknown) PFSH (units (unkno wn) date) unknown) (unknown) (no (unknown) (unknown) PTSD (units (unkno wn) date) (post-traumatic unknown) stress disorder) (-1999) (unknown) (no (unknown) (unknown) Painful menstrual (units (unknown) date) periods () unknown) (unknown) (no (unknown) (unknown) Para 3 (units (unkno wn) date) Spontaneous unknown) abortions 1 (unknown) (no (unknown) (unknown) Partner history (units (unknown) date) of STD: denies hx unknown) (unknown) (no (unknown) (unknown) Partner history (units (unknown) date) of genital herpes: unknown) No (unknown) (no (unknown) (unknown) Partner: [facility] (units (unknown) date) [place] unknown) (unknown) (no (unknown) (unknown) Past Pregnancies (units (unknown) date) unknown) (unknown) (no (unknown) (unknown) Patient presents (units (unknown) date) accompanied by her unknown) children for routine visit at (unknown) (no (unknown) (unknown) Patient presents (units (unknown) date) for a new OB visit unknown) at 11 weeks gestation. She has had (unknown) (no (unknown) (unknown) Patient presents (units (unknown) date) for a routine unknown) visit at 15 weeks gestation. Cell (unknown) (no (unknown) (unknown) Patient presents (units (unknown) date) for a routine unknown) visit at 19 weeks gestation. She (unknown) (no (unknown) (unknown) Patient presents (units (unknown) date) for a routine unknown) visit at 28 weeks gestation. She (unknown) (no (unknown) (unknown) Patient presents (units (unknown) date) for a routine unknown) visit at 35 weeks 6 days. Good (unknown) (no (unknown) (unknown) Patient's age 34 (units (unknown) date) years or older as unknown) of estimated date of delivery: No (unknown) (no (unknown) (unknown) Patient: [place] (units (unknown) date) Brittany Lindquist MR#: unknown) (unknown) (no (unknown) (unknown) Production Inspector: (units ( unknown) date) Pediatric unknown) [facility] (unknown) (no (unknown) (unknown) Personal history (units (unknown) date) of STD: denies hx unknown) (unknown) (no (unknown) (unknown) Personal history (units (unknown) date) of genital herpes: unknown) No (unknown) (no (unknown) (unknown) Planned repeat (units (unknown) date) C/S, 11/24/22 unknown) (unknown) (no (unknown) (unknown) Polyhydramnios (units (unknown) date) unknown) (unknown) (no (unknown) (unknown) Postive screening (units (unknown) date) CF (In scans) unknown) (unknown) (no (unknown) (unknown) (units (unk nown) date) depression unknown) (unknown) (no (unknown) (unknown) History (units (unknown) date) unknown) (unknown) (no (unknown) (unknown) type:: (units (unknown) date) Other Normal unknown) (unknown) (no (unknown) (unknown) (units (unkno wn) date) Education unknown) (unknown) (no (unknown) (unknown) Initial (units (unknown) date) Assessment unknown) (unknown) (no (unknown) (unknown) Specific (units (unknown) date) Issues/Plans unknown) (unknown) (no (unknown) (unknown) Testing: (units (unknown) date) discussed unknown) (unknown) (no (unknown) (unknown) Visit (units (unknown) date) unknown) (unknown) (no (unknown) (unknown) (units (unkno wn) date) education packet: unknown) symptoms, Vitamins and iron, Diet and (unknown) (no (unknown) (unknown) Previous (units (unknown) date) section unknown) (unknown) (no (unknown) (unknown) Primary Care (units (u nknown) date) Provider: [facility] unknown) [facility] (unknown) (no (unknown) (unknown) Primary Ob (units (unk nown) date) Provider: unknown) Josefina Baumann (unknown) (no (unknown) (unknown) Prior (units (unkno wn) date) GBS-Infected unknown) child: No (unknown) (no (unknown) (unknown) [place] (units (unk nown) date) [place] 4 unknown) (unknown) (no (unknown) (unknown) Providers (units (unkn own) date) unknown) (unknown) (no (unknown) (unknown) RPR pos, TPA (units (u nknown) date) negative unknown) (unknown) (no (unknown) (unknown) Rash or viral (units ( unknown) date) illness since last unknown) menstrual period: Yes (minor head cold) (unknown) (no (unknown) (unknown) Reason For Visit (units (unknown) date) unknown) (unknown) (no (unknown) (unknown) Recent travel (units ( unknown) date) outside of unknown) country?: No (unknown) (no (unknown) (unknown) Recurrent (units (unkn own) date) loss or unknown) a stillbirth: No (unknown) (no (unknown) (unknown) Repeat (units (unknown) date) section with unknown) bilateral salpingectomy (unknown) (no (unknown) (unknown) Reports Other (units ( unknown) date) (Older son unknown) undergoing genetic workup for currently unidentified (unknown) (no (unknown) (unknown) 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 unknown) (unknown) (no (unknown) (unknown) Safety (units (unkno wn) date) unknown) (unknown) (no (unknown) (unknown) Sauna/hot tub (units ( unknown) date) use, Dental care, unknown) Marijuana use, Travel and Influenza vaccine (no (unknown) (no (unknown) (unknown) Signed By: (units (unk nown) date) unknown) (unknown) (no (unknown) (unknown) Smoking Status: (units (unknown) date) Former smoker unknown) (Quit-2020) (unknown) (no (unknown) (unknown) Social History (units (unknown) date) unknown) (unknown) (no (unknown) (unknown) Son Hearing loss (units (unknown) date) unknown) (unknown) (no (unknown) (unknown) Son undergoing (units (unknown) date) [facility] ([facility]) (no (unknown) (unknown) Support (units (unkno wn) date) Person(s):: Adriano unknown) (unknown) (no (unknown) (unknown) Surgical History (units (unknown) date) (Updated 07/12/22 unknown) @ 15:10 by Josefina Baumann MD) (unknown) (no (unknown) (unknown) Surrogate (units (unkn own) date) ?: no unknown) (unknown) (no (unknown) (unknown) Symptoms since (units (unknown) date) LMP: Reports unknown) amenorrhea, nausea, fatigue, urinary frequency, (unknown) (no (unknown) (unknown) TR Yes no 138 30 (units (unknown) date) Breech absent AGA unknown) 29w2d (unknown) (no (unknown) (unknown) TR Yes no 143 26 (units (unknown) date) N/A absent 4 wks unknown) (unknown) (no (unknown) (unknown) TR Yes no 144 21 (units (unknown) date) N/A absent 4 wks unknown) (unknown) (no (unknown) (unknown) TR Yes no 148 36 (units (unknown) date) Vertex absent HUNTER unknown) 23.99 c (unknown) (no (unknown) (unknown) TR Yes no 161 40 (units (unknown) date) Vertex absent GBS unknown) HUNTER 18 (unknown) (no (unknown) (unknown) TSH. Discussed (units (unknown) date) TDAP vaccination unknown) nv. She had questions regarding anesthesia (unknown) (no (unknown) (unknown) Tdap, declines (units (unknown) date) flu unknown) (unknown) (no (unknown) (unknown) Teratogen (units (unkn own) date) Exposures since unknown) LMP/Conception: Denies prescription medications, (unknown) (no (unknown) (unknown) Testing Education (units (unknown) date) unknown) (unknown) (no (unknown) (unknown) Testing education (units (unknown) date) completed: group B unknown) strep, Spina bifida testing and Cell Free (unknown) (no (unknown) (unknown) This note may (units ( unknown) date) have been all or unknown) partially generated using voice recognition (unknown) (no (unknown) (unknown) 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 [place] (unknown) (no (unknown) (unknown) Tobacco + (units (unkn own) date) Substance Use unknown) (unknown) (no (unknown) (unknown) Tobacco Status (units (unknown) date) unknown) (unknown) (no (unknown) (unknown) Type(s) of (units (unk nown) date) exercise: walking unknown) (unknown) (no (unknown) (unknown) UProtein Movement (units (unknown) date) PreLabor FHR Fndl unknown) Ht Pres Edema Cerv Exam US/Comment Next Appt (unknown) (no (unknown) (unknown) Varicella/chicken (units (unknown) date) pox status: unknown) immunized (unknown) (no (unknown) (unknown) Visit Date: (units (un known) date) 05/13/22 Last unknown) Updated by: Josefina Baumann MD (unknown) (no (unknown) (unknown) Visit Date: (units (un known) date) 06/09/22 Last unknown) Updated by: Josefina Baumann MD (unknown) (no (unknown) (unknown) Visit Date: (units (un known) date) 07/12/22 Last unknown) Updated by: Josefina Baumann MD (unknown) (no (unknown) (unknown) Visit Date: (units (un known) date) 08/15/22 Last unknown) Updated by: Anita Perez P.A-C (unknown) (no (unknown) (unknown) Visit Date: (units (un known) date) 09/13/22 Last unknown) Updated by: Josefina Baumann MD (unknown) (no (unknown) (unknown) Visit Date: (units (un known) date) 10/04/22 Last unknown) Updated by: Josefina Baumann MD (unknown) (no (unknown) (unknown) Visit Date: (units (un known) date) 10/18/22 Last unknown) Updated by: Glen Ojeda MD (unknown) (no (unknown) (unknown) Visit Date: (units (un known) date) 11/01/22 Last unknown) Updated by: Josefina Baumann MD (unknown) (no (unknown) (unknown) Visit Reasons: OB (units (unknown) date) check [place] pt * unknown) (unknown) (no (unknown) (unknown) WG (units (unkno wn) date) unknown) (unknown) (no (unknown) (unknown) [place] teeth (units (u nknown) date) extracted unknown) (unknown) (no (unknown) (unknown) Would like (units (unk nown) date) [facility] unknown[facility] breast pump at (unknown) (no (unknown) (unknown) Zika virus (units (unk nown) date) exposure: No unknown) (unknown) (no (unknown) (unknown) additional social (units (unknown) date) history: unknown) Difficulty other children. Would (unknown) (no (unknown) (unknown) alcohol intake: (units (unknown) date) former unknown) (unknown) (no (unknown) (unknown) anyone in either (units (unknown) date) family with: unknown) (unknown) (no (unknown) (unknown) attempted, unable (units (unknown) date) other Lavelle unknown) (unknown) (no (unknown) (unknown) because she has (units (unknown) date) had difficult unknown) spinals with all 3 of her deliveries. 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 On (units (unknown) date) ultrasound: Vertex unknown) presentation. HUNTER 18.54 cm. Grade 0 (unknown) (no (unknown) (unknown) current (units (unkno wn) date) occupational unknown) exposures/hazards: Yes (unknown) (no (unknown) (unknown) daily servings (units (unknown) date) fruits/ve or unknown) more times/day (unknown) (no (unknown) (unknown) date. (units (unkno wn) date) unknown) (unknown) (no (unknown) (unknown) delivery. (units (unkn own) date) unknown) (unknown) (no (unknown) (unknown) described, visit (units (unknown) date) schedule reviewed, unknown) ultrasounds policy reviewed, coverage 24 (unknown) (no (unknown) (unknown) discussed, (units (unk nown) date) tuberculosis unknown) exposure discussed, CMV discussed, Toxoplasmosis (unknown) (no (unknown) (unknown) do you feel safe (units (unknown) date) at home: Yes unknown) (unknown) (no (unknown) (unknown) during the past (units (unknown) date) year weight has: unknown) other (wide fluctuations since last ) (unknown) (no (unknown) (unknown) education level: (units (unknown) date) vocational (some unknown) college, certificate programs) (unknown) (no (unknown) (unknown) erm [place] (units (u nknown) date) unknown) (unknown) (no (unknown) (unknown) executed today. (units (unknown) date) Labor precautions unknown) reviewed and follow-up SHERMAN w/ HUNTER will be in (unknown) (no (unknown) (unknown) f/u limited (units (un known) date) anatomy views at unknown) 28wk visit with Dr. Baumann. Ordered OGTT, CBC and (unknown) (no (unknown) (unknown) failure to (units (unk nown) date) progress Rosey unknown) (unknown) (no (unknown) (unknown) felt rare (units (unknown) date) movement. No unknown) leakage of fluid or vaginal bleeding. Plan: (unknown) (no (unknown) (unknown) movement. (units (unknown) date) No leakage of unknown) fluid or vaginal bleeding. No regular (unknown) (no (unknown) (unknown) fetoprotein (units (un known) date) ordered. Warning unknown) signs reviewed. Follow-up in 5 weeks. kag (unknown) (no (unknown) (unknown) fire extinguisher (units (unknown) date) in home: Yes unknown) (unknown) (no (unknown) (unknown) firearms in home: (units (unknown) date) Yes firearms unknown) unloaded and locked: Yes (unknown) (no (unknown) (unknown) flaxseed Allergy (units (unknown) date) (Severe, Verified unknown) 11/01/22 11:31) (unknown) (no (unknown) (unknown) flu or covid (units (u nknown) date) vaccines received) unknown) (unknown) (no (unknown) (unknown) free DNA showed (units (unknown) date) normal female. She unknown) continues to have migraines several days a (unknown) (no (unknown) (unknown) from 2 weeks ago (units (unknown) date) and slightly above unknown) the normal range for this EGA. HHS form 687 (unknown) (no (unknown) (unknown) gestational age. (units (unknown) date) She is having a unknown) few [place] contractions but denies (unknown) (no (unknown) (unknown) grade breast pump (units (unknown) date) that she can have unknown) when she goes home from hospital after (unknown) (no (unknown) (unknown) had her 20 week (units (unknown) date) ultrasound today. unknown) Those results are not available. She has (unknown) (no (unknown) (unknown) had limited heart (units (unknown) date) and outflow tract unknown) views from her anatomy US. Plan 3D US and (unknown) (no (unknown) (unknown) have occurred. If (units (unknown) date) there are any unknown) questions, please contact the Medical Records (unknown) (no (unknown) (unknown) hours a day and (units (unknown) date) participation of unknown) father in care and office visits (unknown) (no (unknown) (unknown) household members: (units (unknown) date) spouse, family unknown) ([id number] and his 3 children (moving out (unknown) (no (unknown) (unknown) housing: house (units (unknown) date) unknown) (unknown) (no (unknown) (unknown) in discharge. Her (units (unknown) date) baby remains unknown) active however. HUNTER today is slightly increased (unknown) (no (unknown) (unknown) is still having (units (unknown) date) occasional unknown) headaches. Good movement. No leakage of fluid (unknown) (no (unknown) (unknown) jw (units (unkno wn) date) unknown) (unknown) (no (unknown) (unknown) kag (units (unkno wn) date) unknown) (unknown) (no (unknown) (unknown) leeding. No (units (un known) date) regular unknown) contractions. On ultrasound: Breech presentation. HUNTER (unknown) (no (unknown) (unknown) lives (units (unkno wn) date) independently: Yes unknown) (unknown) (no (unknown) (unknown) m 2 wks (units (unkno wn) date) unknown) (unknown) (no (unknown) (unknown) marital status: (units (unknown) date) unknown) (unknown) (no (unknown) (unknown) may occur. (units (unk nown) date) Occasional unknown) wrong-word or 'sound-alike' substitutions may have (unknown) (no (unknown) (unknown) medication. No (units (unknown) date) vaginal bleeding. unknown) On ultrasound: Intrauterine gestational sac (unknown) (no (unknown) (unknown) migraines and (units ( unknown) date) these are getting unknown) a little better. She is using the prescribed (unknown) (no (unknown) (unknown) months other Iyla (units (unknown) date) unknown) (unknown) (no (unknown) (unknown) number of (units (unkn own) date) children: 3 unknown) (unknown) (no (unknown) (unknown) occasional 1 (units (u nknown) date) Percocet to treat unknown) these. Plan: 20 week ultrasound ordered. Alpha (unknown) (no (unknown) (unknown) occupational (units (u nknown) date) status: unemployed unknown) and previously employed (unknown) (no (unknown) (unknown) occurred due to (units (unknown) date) the inherent unknown) limitations of voice recognition software. Please (unknown) (no (unknown) (unknown) or vaginal (units (unk nown) date) bleeding. On unknown) ultrasound: Breech presentation. AGA 29 weeks 2 days. (unknown) (no (unknown) (unknown) pets and animals: (units (unknown) date) Yes (horses) unknown) (unknown) (no (unknown) (unknown) placenta. Plan: (units (unknown) date) GBS obtained. unknown) Follow-up in 1 week. Warning signs reviewed. (unknown) (no (unknown) (unknown) polyhydramnios (units (unknown) date) unknown) (unknown) (no (unknown) (unknown) precautions, (units (u nknown) date) Listeriosis unknown) prevention and Rubella Immunization (unknown) (no (unknown) (unknown) read the note (units ( unknown) date) carefully and unknown) recognize, using context, where these substitutions (unknown) (no (unknown) (unknown) really like to (units (unknown) date) meet w/ IBCLC unknown) prior to delivery and would like Rx for hospital (unknown) (no (unknown) (unknown) regular uterine (units (unknown) date) contractions, unknown) bleeding, leakage of fluid per vagina, or change (unknown) (no (unknown) (unknown) reports good (units (u nknown) date) movement and unknown) denies VB, LOF, contractions and cramping. She (unknown) (no (unknown) (unknown) reviewed. 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 (units (unkn own) date) Although every unknown) effort is made to edit content, fountain brush assembler errors (unknown) (no (unknown) (unknown) soon)) and (units (unk nown) date) children unknown) (unknown) (no (unknown) (unknown) special [place] (units ( unknown) date) needs: No unknown) (unknown) (no (unknown) (unknown) substance use (units (u nknown) date) type: marijuana unknown) (in the past, not recently and not while ) (unknown) (no (unknown) (unknown) term [place] (units ( unknown) date) [place] unknown) (unknown) (no (unknown) (unknown) volume. The heart (units (unknown) date) and outflow tracts unknown) could not be visualized. Follow-up in 3 (unknown) (no (unknown) (unknown) water heater temp (units (unknown) date) set < 120 deg: Yes unknown) (unknown) (no (unknown) (unknown) week but they are (units (unknown) date) not lasting unknown) multiple days and not as intense. She is using an (unknown) (no (unknown) (unknown) weeks with repeat (units (unknown) date) ultrasound to unknown) check fluid. Warning signs reviewed. (unknown) (no (unknown) (unknown) weight gain, Fish (units (unknown) date) and mercury unknown) intake, Caffeine use, Exercise and activity, (unknown) (no (unknown) (unknown) well-balanced (units ( unknown) date) diet: daily or unknown) most days (unknown) (no (unknown) (unknown) with 11 weeks 3 (units (unknown) date) days. Left ovary unknown) is normal. Plan: Cell free DNA ordered. (unknown) (no (unknown) (unknown) with a fetus with (units (unknown) date) a crown-rump unknown) length measuring 4.63 cm. This is consistent (unknown) (no (unknown) (unknown) work/environmenta (units (unknown) date) l/hazards, Sexual unknown) activity, X-ray exposure, Medication use, (unknown) (no (unknown) (unknown) working smoke (units ( unknown) date) detector in home: unknown) Yes Result panel 169 (unknown) (no (unknown) (unknown) (no value) (units (unk nown) date) unknown) (unknown) (no (unknown) (unknown) 'syndrome';) (units (u nknown) date) unknown) (unknown) (no (unknown) (unknown) (+11 lb) 112/62 N (units (unknown) date) unknown) (unknown) (no (unknown) (unknown) (+13 lb) 118/68 N (units (unknown) date) unknown) (unknown) (no (unknown) (unknown) (+21 lb 7 oz) (units ( unknown) date) 98/68 N unknown) (unknown) (no (unknown) (unknown) (+27 lb) 110/70 N (units (unknown) date) unknown) (unknown) (no (unknown) (unknown) (+30 lb) 126/66 N (units (unknown) date) unknown) (unknown) (no (unknown) (unknown) (+34 lb) 104/68 N (units (unknown) date) unknown) (unknown) (no (unknown) (unknown) (+38 lb) 114/60 N (units (unknown) date) unknown) (unknown) (no (unknown) (unknown) (+6 lb) 108/68 N (units (unknown) date) unknown) (unknown) (no (unknown) (unknown) Genetic (units (unkn own) date) Screening/Teratolo unknown) gy Counseling - Includes patient, baby's father, or (unknown) (no (unknown) (unknown) -?-?-?-?-?-?-?-?- (units (unknown) date) ?-?-?-? unknown) (unknown) (no (unknown) (unknown) .54 cm 1 week (units ( unknown) date) unknown) (unknown) (no (unknown) (unknown) 01/24/14 41 17 7 (units (unknown) date) lb 1 oz Female unknown) live - full t (unknown) (no (unknown) (unknown) 02/19/21 39 7 lb (units (unknown) date) 12 oz Female live unknown) - full term (unknown) (no (unknown) (unknown) 05/13/22 (units (unkno wn) date) unknown) (unknown) (no (unknown) (unknown) 06/09/22 (units (unkno wn) date) unknown) (unknown) (no (unknown) (unknown) 06/16/15 38 7 lb (units (unknown) date) 13 oz Male unknown) live - full (unknown) (no (unknown) (unknown) 07/12/22 (units (unkno wn) date) unknown) (unknown) (no (unknown) (unknown) 08/15/22 (units (unkno wn) date) unknown) (unknown) (no (unknown) (unknown) 09/13/22 (units (unkno wn) date) unknown) (unknown) (no (unknown) (unknown) 10/04/22 (units (unkno wn) date) unknown) (unknown) (no (unknown) (unknown) 10/18/21 8 (units (unk nown) date) spontaneous unknown) (unknown) (no (unknown) (unknown) 10/18/22 (units (unkno wn) date) unknown) (unknown) (no (unknown) (unknown) 11:09 (units (unkno wn) date) unknown) (unknown) (no (unknown) (unknown) 11w 2d 261 lb (units ( unknown) date) unknown) (unknown) (no (unknown) (unknown) 11w3d 4 wks (units (un known) date) unknown) (unknown) (no (unknown) (unknown) 11/01/22 (units (unkno wn) date) unknown) (unknown) (no (unknown) (unknown) 11/15/22 (units (unkno wn) date) unknown) (unknown) (no (unknown) (unknown) 15w 1d 266 lb (units ( unknown) date) unknown) (unknown) (no (unknown) (unknown) 19w 6d 268 lb (units ( unknown) date) unknown) (unknown) (no (unknown) (unknown) 2 lb 15 oz. (units (un known) date) 55%ile. Placenta unknown) grade 0 and anterior. Normal amniotic fluid (unknown) (no (unknown) (unknown) 2 wees or as (units (u nknown) date) needed. unknown) (unknown) (no (unknown) (unknown) 2 wks (units (unkno wn) date) unknown) (unknown) (no (unknown) (unknown) 20.14 cm. Grade 0 (units (unknown) date) placenta. Plan: unknown) Follow-up in 2 weeks. Warning signs (unknown) (no (unknown) (unknown) 24w 5d 276 lb 7 (units (unknown) date) oz unknown) (unknown) (no (unknown) (unknown) 28w 6d 282 lb (units ( unknown) date) unknown) (unknown) (no (unknown) (unknown) 3 wks (units (unkno wn) date) unknown) (unknown) (no (unknown) (unknown) 31 weeks (units (unkno wn) date) gestation. Good unknown) movement. No leakage of fluid or vaginal b (unknown) (no (unknown) (unknown) 31w 6d 285 lb (units ( unknown) date) unknown) (unknown) (no (unknown) (unknown) 33w 6d 289 lb (units ( unknown) date) unknown) (unknown) (no (unknown) (unknown) 35w 6d 293 lb (units ( unknown) date) unknown) (unknown) (no (unknown) (unknown) 5 wks (units (unkno wn) date) unknown) (unknown) (no (unknown) (unknown) ADHD (units (unkno wn) date) unknown) (unknown) (no (unknown) (unknown) Abnormal lab (units (u nknown) date) values 1st unknown) trimester: discussed (unknown) (no (unknown) (unknown) Add'l Plan (units (unk nown) date) Details unknown) (unknown) (no (unknown) (unknown) Additional (units (unk nown) date) Details:: 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 (unknown) (no (unknown) (unknown) Additional Social (units (unknown) date) History unknown) (unknown) (no (unknown) (unknown) Age/Sex: 32 / F (units (unknown) date) Date of Service: unknown) (unknown) (no (unknown) (unknown) Alcoholism (units (unk nown) date) unknown) (unknown) (no (unknown) (unknown) Allergies (units (unkn own) date) unknown) (unknown) (no (unknown) (unknown) [place] (units ( unknown) date) [id number] unknown) (unknown) (no (unknown) (unknown) Anaphylaxis (units (un known) date) unknown) (unknown) (no (unknown) (unknown) Anesthesia (units (unk nown) date) unknown) (unknown) (no (unknown) (unknown) Aneuploidy (units (unk nown) date) Screening Offered: unknown) Accepted (Would like CFDNA if qualified) (unknown) (no (unknown) (unknown) Anticipated (units (un known) date) course of unknown) care: discussed (unknown) (no (unknown) (unknown) Assessment and (units (unknown) date) Plan unknown) (unknown) (no (unknown) (unknown) Attending Dr: (units ( unknown) date) Glen Ojeda MD unknown) (unknown) (no (unknown) (unknown) BMI 52.2 (units (unkno wn) date) unknown) (unknown) (no (unknown) (unknown) BP 112/68 (units (unkn own) date) unknown) (unknown) (no (unknown) (unknown) Yonis 2 months (units (unknown) date) post-dates unknown) induction (unknown) (no (unknown) (unknown) (units (unkno wn) date) Plan/Preferences unknown) (unknown) (no (unknown) (unknown) Planning (units (unknown) date) unknown) (unknown) (no (unknown) (unknown) Blood Pressure (units (unknown) date) Location Rt unknown) brachial (unknown) (no (unknown) (unknown) Blood (units (unkno wn) date) transfusions?: yes unknown) (Never had but would accept ) (unknown) (no (unknown) (unknown) Breastfeed Preg (units (unknown) date) Comp Name unknown) (unknown) (no (unknown) (unknown) 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) unknown) (unknown) (no (unknown) (unknown) Children's (units (unk nown) date) unknown) (unknown) (no (unknown) (unknown) Current Estimate (units (unknown) date) 11/30/22 LMP unknown) (Certain) 37w 6d (unknown) (no (unknown) (unknown) Current (units (unknown) date) History unknown) (unknown) (no (unknown) (unknown) DNA (units (unkno wn) date) unknown) (unknown) (no (unknown) (unknown) : 1990 (units (unknown) date) Acct:[id number] unknown) (unknown) (no (unknown) (unknown) Date of positive (units (unknown) date) home unknown) test: 03/25/22 (unknown) (no (unknown) (unknown) Date (units (unkno wn) date) unknown) (unknown) (no (unknown) (unknown) Daughter Juvenile (units (unknown) date) arthritis unknown) (unknown) (no (unknown) (unknown) Del. Date (units (unkn own) date) GA/Weeks Labor unknown) Lgth Wt Sex Route Outcome Anesthesia Place (unknown) (no (unknown) (unknown) Delivery Date: (units (unknown) date) 02/19/21 Last unknown) Updated by: Susi Petersen RN (unknown) (no (unknown) (unknown) Delivery Date: (units (unknown) date) 06/16/15 Last unknown) Updated by: Susi Petersen RN (unknown) (no (unknown) (unknown) Delv (units (unkno wn) date) unknown) (unknown) (no (unknown) (unknown) Denies other (units (u nknown) date) unknown) (unknown) (no (unknown) (unknown) Denies over the (units (unknown) date) counter unknown) medications, Denies alcohol, Denies illicit drugs and (unknown) (no (unknown) (unknown) Depression (units (unk nown) date) (-1999) unknown) (unknown) (no (unknown) (unknown) Depression: (units (un known) date) discussed unknown) (unknown) (no (unknown) (unknown) Dept at (units (unkno wn) date) . unknown) (unknown) (no (unknown) (unknown) Diet and Exercise (units (unknown) date) unknown) (unknown) (no (unknown) (unknown) Discussed (units (unkno wn) date) anesthesia, but unknown) encouraged Brittany to discuss this more in depth with (unknown) (no (unknown) (unknown) Documented By: (units (unknown) date) Glen Ojeda MD unknown) 11/15/22 1103 (unknown) (no (unknown) (unknown) Draft (units (unkno wn) date) unknown) (unknown) (no (unknown) (unknown) ECTOR Calculator (units (unknown) date) unknown) (unknown) (no (unknown) (unknown) EGA Weight BP (units ( unknown) date) UGlucose unknown) (unknown) (no (unknown) (unknown) Estimated (units (unkn own) date) Delivery Date unknown) Method Current (unknown) (no (unknown) (unknown) Expected Delivery (units (unknown) date) Route/Plan unknown) (unknown) (no (unknown) (unknown) Family History (units (unknown) date) (Updated 06/08/22 unknown) @ 21:23 by Aurora Arevalo) (unknown) (no (unknown) (unknown) Father Diabetes (units (unknown) date) mellitus unknown) (unknown) (no (unknown) (unknown) Father of Baby: (units (unknown) date) same unknown) (unknown) (no (unknown) (unknown) [facility] (units (unknown[facility] date) [facility] unknown) (unknown) (no (unknown) (unknown) First Trimester (units (unknown) date) Education unknown) Checklist (unknown) (no (unknown) (unknown) Follow-up in 4 (units (unknown) date) weeks. Warning unknown) signs reviewed. kag (unknown) (no (unknown) (unknown) Follow-up in 4 (units (unknown) date) weeks. We will unknown) call with anatomic survey results. (unknown) (no (unknown) (unknown) Foot pain () (units (unknown) date) unknown) (unknown) (no (unknown) (unknown) (units (unkno wn) date) unknown) (unknown) (no (unknown) (unknown) Garde at her next (units (unknown) date) visit. f/u in 4 unknown) weeks. (unknown) (no (unknown) (unknown) Genetic Screening (units (unknown) date) + Counseling unknown) (unknown) (no (unknown) (unknown) Genetic Screening (units (unknown) date) unknown) (unknown) (no (unknown) (unknown) 5 (units (unkn own) date) Multiple births unknown) (unknown) (no (unknown) (unknown) HIV risk (units (unkno wn) date) evaluation: low unknown) risk (unknown) (no (unknown) (unknown) Health Center (units ( unknown) date) Education unknown) (unknown) (no (unknown) (unknown) Health center (units ( unknown) date) information: unknown) nature of practice discussed, personnel (unknown) (no (unknown) (unknown) Heavy menstrual (units (unknown) date) period () unknown) (unknown) (no (unknown) (unknown) Height 5 ft 4 in (units (unknown) date) unknown) (unknown) (no (unknown) (unknown) Hepatitis C risk (units (unknown) date) evaluation: low unknown) risk (unknown) (no (unknown) (unknown) History of (units (unk nown) date) Hepatitis B: No unknown) (unknown) (no (unknown) (unknown) History of (units (unk nown) date) Hepatitis C: No unknown) (unknown) (no (unknown) (unknown) History of (units (unk nown) date) polyhydramnios unknown) (unknown) (no (unknown) (unknown) History of (units (unk nown) date) surgery unknown) (unknown) (no (unknown) (unknown) Hospital: (units (u nknown) date) unknown) (unknown) (no (unknown) (unknown) [facility] (units (unknown) date) unknown) (unknown) (no (unknown) (unknown) Hx # (units (u nknown) date) Pregnancies unknown) Elective abortions (unknown) (no (unknown) (unknown) Hx # Term (units (unkn own) date) Pregnancies 3 unknown) Ectopic pregnancies (unknown) (no (unknown) (unknown) Hx severe (units (unkn own) date) polyhydramnios unknown) (unknown) (no (unknown) (unknown) Hypothyroid (units (un known) date) unknown) (unknown) (no (unknown) (unknown) will be (units (unknown) date) adopted?: no unknown) (unknown) (no (unknown) (unknown) Infection History (units (unknown) date) unknown) (unknown) (no (unknown) (unknown) Infectious (units (unk nown) date) Disease Education unknown) (unknown) (no (unknown) (unknown) Infectious (units (unk nown) date) disease exposure: unknown) chicken pox immunity discussed, hepatitis risk (unknown) (no (unknown) (unknown) Initial Weight: (units (unknown) date) 255 lb unknown) (unknown) (no (unknown) (unknown) Initials (units (unkno wn) date) unknown) (unknown) (no (unknown) (unknown) Intake Note: (units (u nknown) date) unknown) (unknown) (no (unknown) (unknown) Intake (units (unkno wn) date) unknown) (unknown) (no (unknown) (unknown) LM (units (unkno wn) date) unknown) (unknown) (no (unknown) (unknown) Brittany and her (units (u nknown) date) children present unknown) for her SHERMAN visit now at 33+ 6 weeks (unknown) (no (unknown) (unknown) Brittany presents (units ( unknown) date) today with her 3 unknown) kids for a routine OB visit at 24w5d. She (unknown) (no (unknown) (unknown) Live with someone (units (unknown) date) with TB or exposed unknown) to TB: No (unknown) (no (unknown) (unknown) Loc: [facility] (units (unkno wn) date) unknown) (unknown) (no (unknown) (unknown) [id number] (units (unk nown) date) unknown) (unknown) (no (unknown) (unknown) Marital status: (units (unknown) date) unknown) (unknown) (no (unknown) (unknown) Medical History (units (unknown) date) (Updated 11/03/22 unknown) @ 13:02 by Josefina Baumann MD) (unknown) (no (unknown) (unknown) Mental health (units ( unknown) date) problem unknown) (unknown) (no (unknown) (unknown) Migraine (units (unkno wn) date) headaches unknown) (unknown) (no (unknown) (unknown) Mother Depression (units (unknown) date) unknown) (unknown) (no (unknown) (unknown) N No no 146 15 (units (unknown) date) N/A absent 4 wks unknown) (unknown) (no (unknown) (unknown) N No no 168 11 (units (unknown) date) N/A absent unknown) long/closed AGA (unknown) (no (unknown) (unknown) N Yes no 143 32 (units (unknown) date) Breech absent HUNTER unknown) 20.14cm (unknown) (no (unknown) (unknown) Nearsightedness (units (unknown) date) unknown) (unknown) (no (unknown) (unknown) Notes (units (unkno wn) date) unknown) (unknown) (no (unknown) (unknown) Number of Living (units (unknown) date) Children 3 unknown) (unknown) (no (unknown) (unknown) Number of (units (unkn own) date) fetuses:: Single unknown) (unknown) (no (unknown) (unknown) Nutrition and (units ( unknown) date) weight gain unknown) counseling: special diet: discussed (unknown) (no (unknown) (unknown) OB Office Visit (units (unknown) date) unknown) (unknown) (no (unknown) (unknown) OB Visit Log (units (u nknown) date) unknown) (unknown) (no (unknown) (unknown) Obesity (units (unkno wn) date) unknown) (unknown) (no (unknown) (unknown) On control (units (unknown) date) at conception?: No unknown) (unknown) (no (unknown) (unknown) PFSH (units (unkno wn) date) unknown) (unknown) (no (unknown) (unknown) PTSD (units (unkno wn) date) (post-traumatic unknown) stress disorder) (-1999) (unknown) (no (unknown) (unknown) Painful menstrual (units (unknown) date) periods () unknown) (unknown) (no (unknown) (unknown) Para 3 (units (unkno wn) date) Spontaneous unknown) abortions 1 (unknown) (no (unknown) (unknown) Partner history (units (unknown) date) of STD: denies hx unknown) (unknown) (no (unknown) (unknown) Partner history (units (unknown) date) of genital herpes: unknown) No (unknown) (no (unknown) (unknown) Partner: [facility] (units (unknown) date) White unknown) (unknown) (no (unknown) (unknown) Past Pregnancies (units (unknown) date) unknown) (unknown) (no (unknown) (unknown) Patient presents (units (unknown) date) accompanied by her unknown) children for routine visit at (unknown) (no (unknown) (unknown) Patient presents (units (unknown) date) for a new OB visit unknown) at 11 weeks gestation. She has had (unknown) (no (unknown) (unknown) Patient presents (units (unknown) date) for a routine unknown) visit at 15 weeks gestation. Cell (unknown) (no (unknown) (unknown) Patient presents (units (unknown) date) for a routine unknown) visit at 19 weeks gestation. She (unknown) (no (unknown) (unknown) Patient presents (units (unknown) date) for a routine unknown) visit at 28 weeks gestation. She (unknown) (no (unknown) (unknown) Patient presents (units (unknown) date) for a routine unknown) visit at 35 weeks 6 days. Good (unknown) (no (unknown) (unknown) Patient's age 34 (units (unknown) date) years or older as unknown) of estimated date of delivery: No (unknown) (no (unknown) (unknown) Patient: White (units (unknown) date) Brittany Lindquist MR#: unknown) (unknown) (no (unknown) (unknown) Production Inspector: (units ( unknown) date) Pediatric unknown) [facility] (unknown) (no (unknown) (unknown) Personal history (units (unknown) date) of STD: denies hx unknown) (unknown) (no (unknown) (unknown) Personal history (units (unknown) date) of genital herpes: unknown) No (unknown) (no (unknown) (unknown) Planned repeat (units (unknown) date) C/S, 11/24/22 unknown) (unknown) (no (unknown) (unknown) Polyhydramnios (units (unknown) date) unknown) (unknown) (no (unknown) (unknown) Position Sitting (units (unknown) date) unknown) (unknown) (no (unknown) (unknown) Postive screening (units (unknown) date) CF (In scans) unknown) (unknown) (no (unknown) (unknown) (units (unk nown) date) depression unknown) (unknown) (no (unknown) (unknown) History (units (unknown) date) unknown) (unknown) (no (unknown) (unknown) type:: (units (unknown) date) Other Normal unknown) (unknown) (no (unknown) (unknown) (units (unkno wn) date) Education unknown) (unknown) (no (unknown) (unknown) Initial (units (unknown) date) Assessment unknown) (unknown) (no (unknown) (unknown) Specific (units (unknown) date) Issues/Plans unknown) (unknown) (no (unknown) (unknown) Testing: (units (unknown) date) discussed unknown) (unknown) (no (unknown) (unknown) Visit (units (unknown) date) unknown) (unknown) (no (unknown) (unknown) (units (unkno wn) date) education packet: unknown) symptoms, Vitamins and iron, Diet and (unknown) (no (unknown) (unknown) Previous (units (unknown) date) section unknown) (unknown) (no (unknown) (unknown) Primary Care (units (u nknown) date) Provider: [facility] unknown) [facility] (unknown) (no (unknown) (unknown) Primary Ob (units (unk nown) date) Provider: unknown) Josefina Baumann (unknown) (no (unknown) (unknown) Prior (units (unkno wn) date) GBS-Infected unknown) child: No (unknown) (no (unknown) (unknown) [place] (units (unk nown) date) [place] 4 unknown) (unknown) (no (unknown) (unknown) Providers (units (unkn own) date) unknown) (unknown) (no (unknown) (unknown) Pt here for OB (units (unknown) date) Check unknown) (unknown) (no (unknown) (unknown) RPR pos, TPA (units (u nknown) date) negative unknown) (unknown) (no (unknown) (unknown) Rash or viral (units ( unknown) date) illness since last unknown) menstrual period: Yes (minor head cold) (unknown) (no (unknown) (unknown) Reason For Visit (units (unknown) date) unknown) (unknown) (no (unknown) (unknown) Recent travel (units ( unknown) date) outside of unknown) country?: No (unknown) (no (unknown) (unknown) Recurrent (units (unkn own) date) loss or unknown) a stillbirth: No (unknown) (no (unknown) (unknown) Repeat (units (unknown) date) scheduled for unknown) 11/24/22, pt has signed a consent for tubal (unknown) (no (unknown) (unknown) Repeat (units (unknown) date) section with unknown) bilateral salpingectomy (unknown) (no (unknown) (unknown) Reports Other (units ( unknown) date) (Older son unknown) undergoing genetic workup for currently unidentified (unknown) (no (unknown) (unknown) 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 unknown) (unknown) (no (unknown) (unknown) Safety (units (unkno wn) date) unknown) (unknown) (no (unknown) (unknown) Sauna/hot tub (units ( unknown) date) use, Dental care, unknown) Marijuana use, Travel and Influenza vaccine (no (unknown) (no (unknown) (unknown) Signed By: (units (unk nown) date) unknown) (unknown) (no (unknown) (unknown) Smoking Status: (units (unknown) date) Former smoker unknown) (Quit-2020) (unknown) (no (unknown) (unknown) Social History (units (unknown) date) unknown) (unknown) (no (unknown) (unknown) Son Hearing loss (units (unknown) date) unknown) (unknown) (no (unknown) (unknown) Son undergoing (units (unknown) date) workup at unknown) [facility] (unknown) (no (unknown) (unknown) Support (units (unkno wn) date) Person(s):: [facility] unknown) (unknown) (no (unknown) (unknown) Surgical History (units (unknown) date) (Updated 07/12/22 unknown) @ 15:10 by Josefina Baumann MD) (unknown) (no (unknown) (unknown) Surrogate (units (unkn own) date) ?: no unknown) (unknown) (no (unknown) (unknown) Symptoms since (units (unknown) date) LMP: Reports unknown) amenorrhea, nausea, fatigue, urinary frequency, (unknown) (no (unknown) (unknown) TR Yes no 138 30 (units (unknown) date) Breech absent AGA unknown) 29w2d (unknown) (no (unknown) (unknown) TR Yes no 143 26 (units (unknown) date) N/A absent 4 wks unknown) (unknown) (no (unknown) (unknown) TR Yes no 144 21 (units (unknown) date) N/A absent 4 wks unknown) (unknown) (no (unknown) (unknown) TR Yes no 148 36 (units (unknown) date) Vertex absent HUNTER unknown) 23.99 c (unknown) (no (unknown) (unknown) TR Yes no 161 40 (units (unknown) date) Vertex absent GBS unknown) HUNTER 18 (unknown) (no (unknown) (unknown) TSH. Discussed (units (unknown) date) TDAP vaccination unknown) nv. She had questions regarding anesthesia (unknown) (no (unknown) (unknown) Tdap, declines (units (unknown) date) flu unknown) (unknown) (no (unknown) (unknown) Teratogen (units (unkn own) date) Exposures since unknown) LMP/Conception: Denies prescription medications, (unknown) (no (unknown) (unknown) Testing Education (units (unknown) date) unknown) (unknown) (no (unknown) (unknown) Testing education (units (unknown) date) completed: group B unknown) strep, Spina bifida testing and Cell Free (unknown) (no (unknown) (unknown) This note may (units ( unknown) date) have been all or unknown) partially generated using voice recognition (unknown) (no (unknown) (unknown) 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 [place] (unknown) (no (unknown) (unknown) Tobacco + (units (unkn own) date) Substance Use unknown) (unknown) (no (unknown) (unknown) Tobacco Status (units (unknown) date) unknown) (unknown) (no (unknown) (unknown) Type(s) of (units (unk nown) date) exercise: walking unknown) (unknown) (no (unknown) (unknown) UProtein Movement (units (unknown) date) PreLabor FHR Fndl unknown) Ht Pres Edema Cerv Exam US/Comment Next Appt (unknown) (no (unknown) (unknown) Varicella/chicken (units (unknown) date) pox status: unknown) immunized (unknown) (no (unknown) (unknown) Visit Date: (units (un known) date) 05/13/22 Last unknown) Updated by: Josefina Baumann MD (unknown) (no (unknown) (unknown) Visit Date: (units (un known) date) 06/09/22 Last unknown) Updated by: Josefina Baumann MD (unknown) (no (unknown) (unknown) Visit Date: (units (un known) date) 07/12/22 Last unknown) Updated by: Josefina Baumann MD (unknown) (no (unknown) (unknown) Visit Date: (units (un known) date) 08/15/22 Last unknown) Updated by: Anita Perez P.A-C (unknown) (no (unknown) (unknown) Visit Date: (units (un known) date) 09/13/22 Last unknown) Updated by: Josefina Baumann MD (unknown) (no (unknown) (unknown) Visit Date: (units (un known) date) 10/04/22 Last unknown) Updated by: Josefina Baumann MD (unknown) (no (unknown) (unknown) Visit Date: (units (un known) date) 10/18/22 Last unknown) Updated by: Glen Ojeda MD (unknown) (no (unknown) (unknown) Visit Date: (units (un known) date) 11/01/22 Last unknown) Updated by: Josefina Baumann MD (unknown) (no (unknown) (unknown) Visit Reasons: OB (units (unknown) date) check [place] pt * unknown) (unknown) (no (unknown) (unknown) Vitals (units (unkno wn) date) unknown) (unknown) (no (unknown) (unknown) WG (units (unkno wn) date) unknown) (unknown) (no (unknown) (unknown) Weight 304 lb (units ( unknown) date) unknown) (unknown) (no (unknown) (unknown) [place] teeth (units (u nknown) date) extracted unknown) (unknown) (no (unknown) (unknown) Would like (units (unk nown) date) referral unknown) to [facility] grade breast pump at (unknown) (no (unknown) (unknown) Zika virus (units (unk nown) date) exposure: No unknown) (unknown) (no (unknown) (unknown) additional social (units (unknown) date) history: unknown) Difficulty other children. Would (unknown) (no (unknown) (unknown) alcohol intake: (units (unknown) date) former unknown) (unknown) (no (unknown) (unknown) anyone in either (units (unknown) date) family with: unknown) (unknown) (no (unknown) (unknown) attempted, unable (units (unknown) date) other Lav[place] unknown) (unknown) (no (unknown) (unknown) because she has (units (unknown) date) had difficult unknown) spinals with all 3 of her deliveries. 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 On (units (unknown) date) ultrasound: Vertex unknown) presentation. HUNTER 18.54 cm. Grade 0 (unknown) (no (unknown) (unknown) current (units (unkno wn) date) occupational unknown) exposures/hazards: Yes (unknown) (no (unknown) (unknown) daily servings (units (unknown) date) fruits/ve or unknown) more times/day (unknown) (no (unknown) (unknown) date. (units (unkno wn) date) unknown) (unknown) (no (unknown) (unknown) delivery. (units (unkn own) date) unknown) (unknown) (no (unknown) (unknown) described, visit (units (unknown) date) schedule reviewed, unknown) ultrasounds policy reviewed, coverage 24 (unknown) (no (unknown) (unknown) discussed, (units (unk nown) date) tuberculosis unknown) exposure discussed, CMV discussed, Toxoplasmosis (unknown) (no (unknown) (unknown) do you feel safe (units (unknown) date) at home: Yes unknown) (unknown) (no (unknown) (unknown) during the past (units (unknown) date) year weight has: unknown) other (wide fluctuations since last ) (unknown) (no (unknown) (unknown) education level: (units (unknown) date) vocational (some unknown) college, certificate programs) (unknown) (no (unknown) (unknown) erm [place] (units (u nknown) date) unknown) (unknown) (no (unknown) (unknown) executed today. (units (unknown) date) Labor precautions unknown) reviewed and follow-up SHERMAN w/ HUNTER will be in (unknown) (no (unknown) (unknown) f/u limited (units (un known) date) anatomy views at unknown) 28wk visit with Dr. Baumann. Ordered OGTT, CBC and (unknown) (no (unknown) (unknown) failure to (units (unk nown) date) progress [place] unknown) (unknown) (no (unknown) (unknown) felt rare (units (unknown) date) movement. No unknown) leakage of fluid or vaginal bleeding. Plan: (unknown) (no (unknown) (unknown) movement. (units (unknown) date) No leakage of unknown) fluid or vaginal bleeding. No regular (unknown) (no (unknown) (unknown) fetoprotein (units (un known) date) ordered. Warning unknown) signs reviewed. Follow-up in 5 weeks. kag (unknown) (no (unknown) (unknown) fire extinguisher (units (unknown) date) in home: Yes unknown) (unknown) (no (unknown) (unknown) firearms in home: (units (unknown) date) Yes firearms unknown) unloaded and locked: Yes (unknown) (no (unknown) (unknown) flaxseed Allergy (units (unknown) date) (Severe, Verified unknown) 11/01/22 11:31) (unknown) (no (unknown) (unknown) flu or covid (units (u nknown) date) vaccines received) unknown) (unknown) (no (unknown) (unknown) free DNA showed (units (unknown) date) normal female. She unknown) continues to have migraines several days a (unknown) (no (unknown) (unknown) from 2 weeks ago (units (unknown) date) and slightly above unknown) the normal range for this EGA. HHS form 687 (unknown) (no (unknown) (unknown) gestational age. (units (unknown) date) She is having a unknown) few [place] contractions but denies (unknown) (no (unknown) (unknown) grade breast pump (units (unknown) date) that she can have unknown) when she goes home from hospital after (unknown) (no (unknown) (unknown) had her 20 week (units (unknown) date) ultrasound today. unknown) Those results are not available. She has (unknown) (no (unknown) (unknown) had limited heart (units (unknown) date) and outflow tract unknown) views from her anatomy US. Plan 3D US and (unknown) (no (unknown) (unknown) have occurred. If (units (unknown) date) there are any unknown) questions, please contact the Medical Records (unknown) (no (unknown) (unknown) hours a day and (units (unknown) date) participation of unknown) father in care and office visits (unknown) (no (unknown) (unknown) household members: (units (unknown) date) spouse, family unknown) ([place]-ddj and his 3 children (moving out (unknown) (no (unknown) (unknown) housing: house (units (unknown) date) unknown) (unknown) (no (unknown) (unknown) in discharge. Her (units (unknown) date) baby remains unknown) active however. HUNTER today is slightly increased (unknown) (no (unknown) (unknown) is still having (units (unknown) date) occasional unknown) headaches. Good movement. No leakage of fluid (unknown) (no (unknown) (unknown) jw (units (unkno wn) date) unknown) (unknown) (no (unknown) (unknown) kag (units (unkno wn) date) unknown) (unknown) (no (unknown) (unknown) leeding. No (units (un known) date) regular unknown) contractions. On ultrasound: Breech presentation. HUNTER (unknown) (no (unknown) (unknown) ligation, but she (units (unknown) date) says that she has unknown) changed her mind and at this point does NOT (unknown) (no (unknown) (unknown) lives (units (unkno wn) date) independently: Yes unknown) (unknown) (no (unknown) (unknown) m 2 wks (units (unkno wn) date) unknown) (unknown) (no (unknown) (unknown) marital status: (units (unknown) date) unknown) (unknown) (no (unknown) (unknown) may occur. (units (unk nown) date) Occasional unknown) wrong-word or 'sound-alike' substitutions may have (unknown) (no (unknown) (unknown) medication. No (units (unknown) date) vaginal bleeding. unknown) On ultrasound: Intrauterine gestational sac (unknown) (no (unknown) (unknown) migraines and (units ( unknown) date) these are getting unknown) a little better. She is using the prescribed (unknown) (no (unknown) (unknown) months other [place] (units (unknown) date) unknown) (unknown) (no (unknown) (unknown) number of (units (unkn own) date) children: 3 unknown) (unknown) (no (unknown) (unknown) occasional 1 (units (u nknown) date) Percocet to treat unknown) these. Plan: 20 week ultrasound ordered. Alpha (unknown) (no (unknown) (unknown) occupational (units (u nknown) date) status: unemployed unknown) and previously employed (unknown) (no (unknown) (unknown) occurred due to (units (unknown) date) the inherent unknown) limitations of voice recognition software. Please (unknown) (no (unknown) (unknown) or vaginal (units (unk nown) date) bleeding. On unknown) ultrasound: Breech presentation. AGA 29 weeks 2 days. (unknown) (no (unknown) (unknown) pets and animals: (units (unknown) date) Yes (horses) unknown) (unknown) (no (unknown) (unknown) placenta. Plan: (units (unknown) date) GBS obtained. unknown) Follow-up in 1 week. Warning signs reviewed. (unknown) (no (unknown) (unknown) polyhydramnios (units (unknown) date) unknown) (unknown) (no (unknown) (unknown) precautions, (units (u nknown) date) Listeriosis unknown) prevention and Rubella Immunization (unknown) (no (unknown) (unknown) read the note (units ( unknown) date) carefully and unknown) recognize, using context, where these substitutions (unknown) (no (unknown) (unknown) really like to (units (unknown) date) meet w/ IBCLC unknown) prior to delivery and would like Rx for hospital (unknown) (no (unknown) (unknown) regular uterine (units (unknown) date) contractions, unknown) bleeding, leakage of fluid per vagina, or change (unknown) (no (unknown) (unknown) reports good (units (u nknown) date) movement and unknown) denies VB, LOF, contractions and cramping. She (unknown) (no (unknown) (unknown) reviewed. 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 (units (unkn own) date) Although every unknown) effort is made to edit content, fountain brush assembler errors (unknown) (no (unknown) (unknown) soon)) and (units (unk nown) date) children unknown) (unknown) (no (unknown) (unknown) special [place] (units ( unknown) date) needs: No unknown) (unknown) (no (unknown) (unknown) substance use (units (u nknown) date) type: marijuana unknown) (in the past, not recently and not while ) (unknown) (no (unknown) (unknown) term [place] (units ( unknown) date) Yonis unknown) (unknown) (no (unknown) (unknown) volume. The heart (units (unknown) date) and outflow tracts unknown) could not be visualized. Follow-up in 3 (unknown) (no (unknown) (unknown) want to proceed (units (unknown) date) with the tubal unknown) (unknown) (no (unknown) (unknown) water heater temp (units (unknown) date) set < 120 deg: Yes unknown) (unknown) (no (unknown) (unknown) week but they are (units (unknown) date) not lasting unknown) multiple days and not as intense. She is using an (unknown) (no (unknown) (unknown) weeks with repeat (units (unknown) date) ultrasound to unknown) check fluid. Warning signs reviewed. (unknown) (no (unknown) (unknown) weight gain, Fish (units (unknown) date) and mercury unknown) intake, Caffeine use, Exercise and activity, (unknown) (no (unknown) (unknown) well-balanced (units ( unknown) date) diet: daily or unknown) most days (unknown) (no (unknown) (unknown) with 11 weeks 3 (units (unknown) date) days. Left ovary unknown) is normal. Plan: Cell free DNA ordered. (unknown) (no (unknown) (unknown) with a fetus with (units (unknown) date) a crown-rump unknown) length measuring 4.63 cm. This is consistent (unknown) (no (unknown) (unknown) work/environmenta (units (unknown) date) l/hazards, Sexual unknown) activity, X-ray exposure, Medication use, (unknown) (no (unknown) (unknown) working smoke (units ( unknown) date) detector in home: unknown) Yes Result panel 170 (unknown) (no (unknown) (unknown) (no value) (units (unk nown) date) unknown) (unknown) (no (unknown) (unknown) 'syndrome';) (units (u nknown) date) unknown) (unknown) (no (unknown) (unknown) (+11 lb) 112/62 N (units (unknown) date) unknown) (unknown) (no (unknown) (unknown) (+13 lb) 118/68 N (units (unknown) date) unknown) (unknown) (no (unknown) (unknown) (+21 lb 7 oz) (units ( unknown) date) 98/68 N unknown) (unknown) (no (unknown) (unknown) (+27 lb) 110/70 N (units (unknown) date) unknown) (unknown) (no (unknown) (unknown) (+30 lb) 126/66 N (units (unknown) date) unknown) (unknown) (no (unknown) (unknown) (+34 lb) 104/68 N (units (unknown) date) unknown) (unknown) (no (unknown) (unknown) (+38 lb) 114/60 N (units (unknown) date) unknown) (unknown) (no (unknown) (unknown) (+49 lb) 112/68 (units (unknown) date) unknown) (unknown) (no (unknown) (unknown) (+6 lb) 108/68 N (units (unknown) date) unknown) (unknown) (no (unknown) (unknown) (1) : (units (unknown) date) unknown) (unknown) (no (unknown) (unknown) (2) Obesity (units (un known) date) affecting unknown) : (unknown) (no (unknown) (unknown) (3) Advanced (units (u nknown) date) maternal age (AMA) unknown) in : (unknown) (no (unknown) (unknown) (4) Previous (units (u nknown) date) section unknown) complicating : (unknown) (no (unknown) (unknown) Genetic (units (unkn own) date) Screening/Teratolo unknown) gy Counseling - Includes patient, baby's father, or (unknown) (no (unknown) (unknown) -?-?-?-?-?-?-?-?- (units (unknown) date) ?-?-?-? unknown) (unknown) (no (unknown) (unknown) .54 cm 1 week (units ( unknown) date) unknown) (unknown) (no (unknown) (unknown) 01/24/14 41 17 7 (units (unknown) date) lb 1 oz Female unknown) live - full t (unknown) (no (unknown) (unknown) 02/19/21 39 7 lb (units (unknown) date) 12 oz Female live unknown) - full term (unknown) (no (unknown) (unknown) 05/13/22 (units (unkno wn) date) unknown) (unknown) (no (unknown) (unknown) 06/09/22 (units (unkno wn) date) unknown) (unknown) (no (unknown) (unknown) 06/16/15 38 7 lb (units (unknown) date) 13 oz Male unknown) live - full (unknown) (no (unknown) (unknown) 07/12/22 (units (unkno wn) date) unknown) (unknown) (no (unknown) (unknown) 08/15/22 (units (unkno wn) date) unknown) (unknown) (no (unknown) (unknown) 1 wk (units (unkno wn) date) unknown) (unknown) (no (unknown) (unknown) 09/13/22 (units (unkno wn) date) unknown) (unknown) (no (unknown) (unknown) 10/04/22 (units (unkno wn) date) unknown) (unknown) (no (unknown) (unknown) 10/18/21 8 (units (unk nown) date) spontaneous unknown) (unknown) (no (unknown) (unknown) 10/18/22 (units (unkno wn) date) unknown) (unknown) (no (unknown) (unknown) 11:09 (units (unkno wn) date) unknown) (unknown) (no (unknown) (unknown) 11w 2d 261 lb (units ( unknown) date) unknown) (unknown) (no (unknown) (unknown) 11w3d 4 wks (units (un known) date) unknown) (unknown) (no (unknown) (unknown) 11/01/22 (units (unkno wn) date) unknown) (unknown) (no (unknown) (unknown) 11/15/22 1151 (units ( unknown) date) unknown) (unknown) (no (unknown) (unknown) 11/15/22 (units (unkno wn) date) unknown) (unknown) (no (unknown) (unknown) 15w 1d 266 lb (units ( unknown) date) unknown) (unknown) (no (unknown) (unknown) 19w 6d 268 lb (units ( unknown) date) unknown) (unknown) (no (unknown) (unknown) 2 lb 15 oz. (units (un known) date) 55%ile. Placenta unknown) grade 0 and anterior. Normal amniotic fluid (unknown) (no (unknown) (unknown) 2 wees or as (units (u nknown) date) needed. unknown) (unknown) (no (unknown) (unknown) 2 wks (units (unkno wn) date) unknown) (unknown) (no (unknown) (unknown) 20.14 cm. Grade 0 (units (unknown) date) placenta. Plan: unknown) Follow-up in 2 weeks. Warning signs (unknown) (no (unknown) (unknown) 24w 5d 276 lb 7 (units (unknown) date) oz unknown) (unknown) (no (unknown) (unknown) 28w 6d 282 lb (units ( unknown) date) unknown) (unknown) (no (unknown) (unknown) 3 wks (units (unkno wn) date) unknown) (unknown) (no (unknown) (unknown) 31 weeks (units (unkno wn) date) gestation. Good unknown) movement. No leakage of fluid or vaginal (unknown) (no (unknown) (unknown) 31w 6d 285 lb (units ( unknown) date) unknown) (unknown) (no (unknown) (unknown) 33w 6d 289 lb (units ( unknown) date) unknown) (unknown) (no (unknown) (unknown) 35w 6d 293 lb (units ( unknown) date) unknown) (unknown) (no (unknown) (unknown) 37w 6d 304 lb (units ( unknown) date) unknown) (unknown) (no (unknown) (unknown) 5 wks (units (unkno wn) date) unknown) (unknown) (no (unknown) (unknown) ADHD (units (unkno wn) date) unknown) (unknown) (no (unknown) (unknown) Abnormal lab (units (u nknown) date) values 1st unknown) trimester: discussed (unknown) (no (unknown) (unknown) Add'l Plan (units (unk nown) date) Details unknown) (unknown) (no (unknown) (unknown) Additional (units (unk nown) date) Details:: 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 (unknown) (no (unknown) (unknown) Additional Social (units (unknown) date) History unknown) (unknown) (no (unknown) (unknown) Age/Sex: 32 / F (units (unknown) date) Date of Service: unknown) (unknown) (no (unknown) (unknown) Alcoholism (units (unk nown) date) unknown) (unknown) (no (unknown) (unknown) Allergies (units (unkn own) date) unknown) (unknown) (no (unknown) (unknown) [place] (units ( unknown) date) [id number] unknown) (unknown) (no (unknown) (unknown) Anaphylaxis (units (un known) date) unknown) (unknown) (no (unknown) (unknown) Anesthesia (units (unk nown) date) unknown) (unknown) (no (unknown) (unknown) Aneuploidy (units (unk nown) date) Screening Offered: unknown) Accepted (Would like CFDNA if qualified) (unknown) (no (unknown) (unknown) Anticipated (units (un known) date) course of unknown) care: discussed (unknown) (no (unknown) (unknown) Assessment and (units (unknown) date) Plan unknown) (unknown) (no (unknown) (unknown) Attending Dr: (units ( unknown) date) Glen Ojeda MD unknown) (unknown) (no (unknown) (unknown) BMI 52.2 (units (unkno wn) date) unknown) (unknown) (no (unknown) (unknown) BP 112/68 (units (unkn own) date) unknown) (unknown) (no (unknown) (unknown) [place] 2 months (units (unknown) date) post-dates unknown) induction (unknown) (no (unknown) (unknown) (units (unkno wn) date) Plan/Preferences unknown) (unknown) (no (unknown) (unknown) Planning (units (unknown) date) unknown) (unknown) (no (unknown) (unknown) Blood Pressure (units (unknown) date) Location Rt unknown) brachial (unknown) (no (unknown) (unknown) Blood (units (unkno wn) date) transfusions?: yes unknown) (Never had but would accept ) (unknown) (no (unknown) (unknown) Breastfeed Preg (units (unknown) date) Comp Name unknown) (unknown) (no (unknown) (unknown) 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) unknown) (unknown) (no (unknown) (unknown) Children's (units (unk nown) date) unknown) (unknown) (no (unknown) (unknown) Current Estimate (units (unknown) date) 11/30/22 LMP unknown) (Certain) 37w 6d (unknown) (no (unknown) (unknown) Current (units (unknown) date) History unknown) (unknown) (no (unknown) (unknown) DNA (units (unkno wn) date) unknown) (unknown) (no (unknown) (unknown) : 1990 (units (unknown) date) Acct:[id number] unknown) (unknown) (no (unknown) (unknown) Date of positive (units (unknown) date) home unknown) test: 03/25/22 (unknown) (no (unknown) (unknown) Date (units (unkno wn) date) unknown) (unknown) (no (unknown) (unknown) Daughter Juvenile (units (unknown) date) arthritis unknown) (unknown) (no (unknown) (unknown) Del. Date (units (unkn own) date) GA/Weeks Labor unknown) Lgth Wt Sex Route Outcome Anesthesia Place (unknown) (no (unknown) (unknown) Delivery Date: (units (unknown) date) 02/19/21 Last unknown) Updated by: Susi Petersen RN (unknown) (no (unknown) (unknown) Delivery Date: (units (unknown) date) 06/16/15 Last unknown) Updated by: Susi Petersen RN (unknown) (no (unknown) (unknown) Delv (units (unkno wn) date) unknown) (unknown) (no (unknown) (unknown) Denies other (units (u nknown) date) unknown) (unknown) (no (unknown) (unknown) Denies over the (units (unknown) date) counter unknown) medications, Denies alcohol, Denies illicit drugs and (unknown) (no (unknown) (unknown) Depression (units (unk nown) date) (-1999) unknown) (unknown) (no (unknown) (unknown) Depression: (units (un known) date) discussed unknown) (unknown) (no (unknown) (unknown) Dept at (units (unkno wn) date) . unknown) (unknown) (no (unknown) (unknown) Diet and Exercise (units (unknown) date) unknown) (unknown) (no (unknown) (unknown) Discussed (units (unkno wn) date) anesthesia, but unknown) encouraged Brittany to discuss this more in depth with (unknown) (no (unknown) (unknown) Documented By: (units (unknown) date) Glen Ojeda MD unknown) 11/15/22 1103 (unknown) (no (unknown) (unknown) ECTOR Calculator (units (unknown) date) unknown) (unknown) (no (unknown) (unknown) EGA Weight BP (units ( unknown) date) UGlucose unknown) (unknown) (no (unknown) (unknown) Estimated (units (unkn own) date) Delivery Date unknown) Method Current (unknown) (no (unknown) (unknown) Expected Delivery (units (unknown) date) Route/Plan unknown) (unknown) (no (unknown) (unknown) Family History (units (unknown) date) (Updated 06/08/22 unknown) @ 21:23 by Aurora Arevalo) (unknown) (no (unknown) (unknown) Father Diabetes (units (unknown) date) mellitus unknown) (unknown) (no (unknown) (unknown) Father of Baby: (units (unknown) date) same unknown) (unknown) (no (unknown) (unknown) [facility] ([facility] unknown) (unknown) (no (unknown) (unknown) First Trimester (units (unknown) date) Education unknown) Checklist (unknown) (no (unknown) (unknown) Follow-up in 4 (units (unknown) date) weeks. Warning unknown) signs reviewed. kag (unknown) (no (unknown) (unknown) Follow-up in 4 (units (unknown) date) weeks. We will unknown) call with anatomic survey results. (unknown) (no (unknown) (unknown) Foot pain () (units (unknown) date) unknown) (unknown) (no (unknown) (unknown) (units (unkno wn) date) unknown) (unknown) (no (unknown) (unknown) [place] at her next (units (unknown) date) visit. f/u in 4 unknown) weeks. (unknown) (no (unknown) (unknown) Genetic Screening (units (unknown) date) + Counseling unknown) (unknown) (no (unknown) (unknown) Genetic Screening (units (unknown) date) unknown) (unknown) (no (unknown) (unknown) 5 (units (unkn own) date) Multiple births unknown) (unknown) (no (unknown) (unknown) HIV risk (units (unkno wn) date) evaluation: low unknown) risk (unknown) (no (unknown) (unknown) Health Center (units ( unknown) date) Education unknown) (unknown) (no (unknown) (unknown) Health center (units ( unknown) date) information: unknown) nature of practice discussed, personnel (unknown) (no (unknown) (unknown) Heavy menstrual (units (unknown) date) period () unknown) (unknown) (no (unknown) (unknown) Height 5 ft 4 in (units (unknown) date) unknown) (unknown) (no (unknown) (unknown) Hepatitis C risk (units (unknown) date) evaluation: low unknown) risk (unknown) (no (unknown) (unknown) Her GBS cultures (units (unknown) date) reported as unknown) negative. Her baby remains active but she denies (unknown) (no (unknown) (unknown) History of (units (unk nown) date) Hepatitis B: No unknown) (unknown) (no (unknown) (unknown) History of (units (unk nown) date) Hepatitis C: No unknown) (unknown) (no (unknown) (unknown) History of (units (unk nown) date) polyhydramnios unknown) (unknown) (no (unknown) (unknown) History of (units (unk nown) date) surgery unknown) (unknown) (no (unknown) (unknown) Hospital: (units (u nknown) date) unknown) (unknown) (no (unknown) (unknown) [facility] (units (unknown) date) unknown) (unknown) (no (unknown) (unknown) Hx # (units (u nknown) date) Pregnancies unknown) Elective abortions (unknown) (no (unknown) (unknown) Hx # Term (units (unkn own) date) Pregnancies 3 unknown) Ectopic pregnancies (unknown) (no (unknown) (unknown) Hx severe (units (unkn own) date) polyhydramnios unknown) (unknown) (no (unknown) (unknown) Hypothyroid (units (un known) date) unknown) (unknown) (no (unknown) (unknown) Infant will be (units (unknown) date) adopted?: no unknown) (unknown) (no (unknown) (unknown) Infection History (units (unknown) date) unknown) (unknown) (no (unknown) (unknown) Infectious (units (unk nown) date) Disease Education unknown) (unknown) (no (unknown) (unknown) Infectious (units (unk nown) date) disease exposure: unknown) chicken pox immunity discussed, hepatitis risk (unknown) (no (unknown) (unknown) Initial Weight: (units (unknown) date) 255 lb unknown) (unknown) (no (unknown) (unknown) Initials (units (unkno wn) date) unknown) (unknown) (no (unknown) (unknown) Intake Note: (units (u nknown) date) unknown) (unknown) (no (unknown) (unknown) Intake (units (unkno wn) date) unknown) (unknown) (no (unknown) (unknown) LM (units (unkno wn) date) unknown) (unknown) (no (unknown) (unknown) Brittany and her (units (u nknown) date) children present unknown) for her SHERMAN visit now at 33+ 6 weeks (unknown) (no (unknown) (unknown) Brittany presents (units ( unknown) date) today with her 3 unknown) kids for a routine OB visit at 24w5d. She (unknown) (no (unknown) (unknown) Brittany returns (units (u nknown) date) today for her SHERMAN unknown) visit now at 37+ 6 weeks gestational age. (unknown) (no (unknown) (unknown) Live with someone (units (unknown) date) with TB or exposed unknown) to TB: No (unknown) (no (unknown) (unknown) Loc: [facility] (units (unkno wn) date) unknown) (unknown) (no (unknown) (unknown) [id number] (units (unk nown) date) unknown) (unknown) (no (unknown) (unknown) Marital status: (units (unknown) date) unknown) (unknown) (no (unknown) (unknown) Medical History (units (unknown) date) (Updated 11/15/22 unknown) @ 11:51 by Glen Ojeda MD) (unknown) (no (unknown) (unknown) Mental health (units ( unknown) date) problem unknown) (unknown) (no (unknown) (unknown) Migraine (units (unkno wn) date) headaches unknown) (unknown) (no (unknown) (unknown) Mother Depression (units (unknown) date) unknown) (unknown) (no (unknown) (unknown) N No no 146 15 (units (unknown) date) N/A absent 4 wks unknown) (unknown) (no (unknown) (unknown) N No no 168 11 (units (unknown) date) N/A absent unknown) long/closed AGA (unknown) (no (unknown) (unknown) N Yes no 143 32 (units (unknown) date) Breech absent HUNTER unknown) 20.14cm (unknown) (no (unknown) (unknown) Nearsightedness (units (unknown) date) unknown) (unknown) (no (unknown) (unknown) Notes (units (unkno wn) date) unknown) (unknown) (no (unknown) (unknown) Number of Living (units (unknown) date) Children 3 unknown) (unknown) (no (unknown) (unknown) Number of (units (unkn own) date) fetuses:: Single unknown) (unknown) (no (unknown) (unknown) Nutrition and (units ( unknown) date) weight gain unknown) counseling: special diet: discussed (unknown) (no (unknown) (unknown) OB Office Visit (units (unknown) date) unknown) (unknown) (no (unknown) (unknown) OB Visit Log (units (u nknown) date) unknown) (unknown) (no (unknown) (unknown) Obesity (units (unkno wn) date) unknown) (unknown) (no (unknown) (unknown) On control (units (unknown) date) at conception?: No unknown) (unknown) (no (unknown) (unknown) PFSH (units (unkno wn) date) unknown) (unknown) (no (unknown) (unknown) PTSD (units (unkno wn) date) (post-traumatic unknown) stress disorder) (-1999) (unknown) (no (unknown) (unknown) Painful menstrual (units (unknown) date) periods () unknown) (unknown) (no (unknown) (unknown) Para 3 (units (unkno wn) date) Spontaneous unknown) abortions 1 (unknown) (no (unknown) (unknown) Partner history (units (unknown) date) of STD: denies hx unknown) (unknown) (no (unknown) (unknown) Partner history (units (unknown) date) of genital herpes: unknown) No (unknown) (no (unknown) (unknown) Partner: [facility] (units (unknown) date) [place] unknown) (unknown) (no (unknown) (unknown) Past Pregnancies (units (unknown) date) unknown) (unknown) (no (unknown) (unknown) Patient presents (units (unknown) date) accompanied by her unknown) children for routine visit at (unknown) (no (unknown) (unknown) Patient presents (units (unknown) date) for a new OB visit unknown) at 11 weeks gestation. She has had (unknown) (no (unknown) (unknown) Patient presents (units (unknown) date) for a routine unknown) visit at 15 weeks gestation. Cell (unknown) (no (unknown) (unknown) Patient presents (units (unknown) date) for a routine unknown) visit at 19 weeks gestation. She (unknown) (no (unknown) (unknown) Patient presents (units (unknown) date) for a routine unknown) visit at 28 weeks gestation. She (unknown) (no (unknown) (unknown) Patient presents (units (unknown) date) for a routine unknown) visit at 35 weeks 6 days. Good (unknown) (no (unknown) (unknown) Patient's age 34 (units (unknown) date) years or older as unknown) of estimated date of delivery: No (unknown) (no (unknown) (unknown) Patient: [facility] (units (unknown) date) Brittany Lindquist MR#: unknown) (unknown) (no (unknown) (unknown) Production Inspector: (units ( unknown) date) Pediatric unknown) [facility] (unknown) (no (unknown) (unknown) Personal history (units (unknown) date) of STD: denies hx unknown) (unknown) (no (unknown) (unknown) Personal history (units (unknown) date) of genital herpes: unknown) No (unknown) (no (unknown) (unknown) Planned repeat (units (unknown) date) C/S, 11/24/22 unknown) (unknown) (no (unknown) (unknown) Polyhydramnios (units (unknown) date) unknown) (unknown) (no (unknown) (unknown) Position Sitting (units (unknown) date) unknown) (unknown) (no (unknown) (unknown) Postive screening (units (unknown) date) CF (In scans) unknown) (unknown) (no (unknown) (unknown) (units (unk nown) date) depression unknown) (unknown) (no (unknown) (unknown) History (units (unknown) date) unknown) (unknown) (no (unknown) (unknown) type:: (units (unknown) date) Other Normal unknown) (unknown) (no (unknown) (unknown) (units (unkno wn) date) Education unknown) (unknown) (no (unknown) (unknown) Initial (units (unknown) date) Assessment unknown) (unknown) (no (unknown) (unknown) Specific (units (unknown) date) Issues/Plans unknown) (unknown) (no (unknown) (unknown) Testing: (units (unknown) date) discussed unknown) (unknown) (no (unknown) (unknown) Visit (units (unknown) date) unknown) (unknown) (no (unknown) (unknown) (units (unkno wn) date) education packet: unknown) symptoms, Vitamins and iron, Diet and (unknown) (no (unknown) (unknown) Previous (units (unknown) date) section unknown) (unknown) (no (unknown) (unknown) Primary Care (units (u nknown) date) Provider: [place] unknown) Health (unknown) (no (unknown) (unknown) Primary Ob (units (unk nown) date) Provider: unknown) Josefina Baumann (unknown) (no (unknown) (unknown) Prior (units (unkno wn) date) GBS-Infected unknown) child: No (unknown) (no (unknown) (unknown) [place] (units (unk nown) date) [place] 4 unknown) (unknown) (no (unknown) (unknown) Providers (units (unkn own) date) unknown) (unknown) (no (unknown) (unknown) Pt here for OB (units (unknown) date) Check unknown) (unknown) (no (unknown) (unknown) Qualifiers: (units (un known) date) unknown) (unknown) (no (unknown) (unknown) RPR pos, TPA (units (u nknown) date) negative unknown) (unknown) (no (unknown) (unknown) Rash or viral (units ( unknown) date) illness since last unknown) menstrual period: Yes (minor head cold) (unknown) (no (unknown) (unknown) Reason For Visit (units (unknown) date) unknown) (unknown) (no (unknown) (unknown) Recent travel (units ( unknown) date) outside of unknown) country?: No (unknown) (no (unknown) (unknown) Recurrent (units (unkn own) date) loss or unknown) a stillbirth: No (unknown) (no (unknown) (unknown) Repeat (units (unknown) date) scheduled for unknown) 11/24/22, pt has signed a consent for tubal (unknown) (no (unknown) (unknown) Repeat (units (unknown) date) section with unknown) bilateral salpingectomy (unknown) (no (unknown) (unknown) Reports Other (units ( unknown) date) (Older son unknown) undergoing genetic workup for currently unidentified (unknown) (no (unknown) (unknown) 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 unknown) (unknown) (no (unknown) (unknown) Safety (units (unkno wn) date) unknown) (unknown) (no (unknown) (unknown) Sauna/hot tub (units ( unknown) date) use, Dental care, unknown) Marijuana use, Travel and Influenza vaccine (no (unknown) (no (unknown) (unknown) She is scheduled (units (unknown) date) for her repeat unknown) section (#4) on 11/24/2022 but has (unknown) (no (unknown) (unknown) Signed By: (units (unk nown) date) <Electronically unknown) signed by Glen Ojeda MD> (unknown) (no (unknown) (unknown) Signed (units (unkno wn) date) unknown) (unknown) (no (unknown) (unknown) Smoking Status: (units (unknown) date) Former smoker unknown) (Quit-2019) (unknown) (no (unknown) (unknown) Social History (units (unknown) date) unknown) (unknown) (no (unknown) (unknown) Son Hearing loss (units (unknown) date) unknown) (unknown) (no (unknown) (unknown) Son undergoing (units (unknown) date) workup at unknown) [facility] for possible genetic anomaly (unknown) (no (unknown) (unknown) Status: Acute (units ( unknown) date) unknown) (unknown) (no (unknown) (unknown) Support (units (unkno wn) date) Person(s):: [facility] unknown) (unknown) (no (unknown) (unknown) Surgical History (units (unknown) date) (Updated 07/12/22 unknown) @ 15:10 by Josefina Baumann MD) (unknown) (no (unknown) (unknown) Surrogate (units (unkn own) date) ?: no unknown) (unknown) (no (unknown) (unknown) Symptoms since (units (unknown) date) LMP: Reports unknown) amenorrhea, nausea, fatigue, urinary frequency, (unknown) (no (unknown) (unknown) TR Yes no 138 30 (units (unknown) date) Breech absent AGA unknown) 29w2d (unknown) (no (unknown) (unknown) TR Yes no 143 26 (units (unknown) date) N/A absent 4 wks unknown) (unknown) (no (unknown) (unknown) TR Yes no 144 21 (units (unknown) date) N/A absent 4 wks unknown) (unknown) (no (unknown) (unknown) TR Yes no 148 36 (units (unknown) date) Vertex absent HUNTER unknown) 23.99 c (unknown) (no (unknown) (unknown) TR Yes no 161 40 (units (unknown) date) Vertex absent GBS unknown) HUNTER 18 (unknown) (no (unknown) (unknown) TSH. Discussed (units (unknown) date) TDAP vaccination unknown) nv. She had questions regarding anesthesia (unknown) (no (unknown) (unknown) Tdap, declines (units (unknown) date) flu unknown) (unknown) (no (unknown) (unknown) Teratogen (units (unkn own) date) Exposures since unknown) LMP/Conception: Denies prescription medications, (unknown) (no (unknown) (unknown) Testing Education (units (unknown) date) unknown) (unknown) (no (unknown) (unknown) Testing education (units (unknown) date) completed: group B unknown) strep, Spina bifida testing and Cell Free (unknown) (no (unknown) (unknown) This note may (units ( unknown) date) have been all or unknown) partially generated using voice recognition (unknown) (no (unknown) (unknown) 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 [facility] (unknown) (no (unknown) (unknown) Tobacco + (units (unkn own) date) Substance Use unknown) (unknown) (no (unknown) (unknown) Tobacco Status (units (unknown) date) unknown) (unknown) (no (unknown) (unknown) Trimester: third (units (unknown) date) trimester unknown) Qualified Code(s): O99.213 - Obesity (unknown) (no (unknown) (unknown) Type(s) of (units (unk nown) date) exercise: walking unknown) (unknown) (no (unknown) (unknown) UProtein Movement (units (unknown) date) PreLabor FHR Fndl unknown) Ht Pres Edema Cerv Exam US/Comment Next Appt (unknown) (no (unknown) (unknown) Varicella/chicken (units (unknown) date) pox status: unknown) immunized (unknown) (no (unknown) (unknown) Visit Date: (units (un known) date) 05/13/22 Last unknown) Updated by: Josefina Baumann MD (unknown) (no (unknown) (unknown) Visit Date: (units (un known) date) 06/09/22 Last unknown) Updated by: Josefina Baumann MD (unknown) (no (unknown) (unknown) Visit Date: (units (un known) date) 07/12/22 Last unknown) Updated by: Josefina Baumann MD (unknown) (no (unknown) (unknown) Visit Date: (units (un known) date) 08/15/22 Last unknown) Updated by: Anita Perez P.A-C (unknown) (no (unknown) (unknown) Visit Date: (units (un known) date) 09/13/22 Last unknown) Updated by: Josefina Baumann MD (unknown) (no (unknown) (unknown) Visit Date: (units (un known) date) 10/04/22 Last unknown) Updated by: Josefina Baumann MD (unknown) (no (unknown) (unknown) Visit Date: (units (un known) date) 10/18/22 Last unknown) Updated by: Glen Ojeda MD (unknown) (no (unknown) (unknown) Visit Date: (units (un known) date) 11/01/22 Last unknown) Updated by: Josefina Baumann MD (unknown) (no (unknown) (unknown) Visit Date: (units (un known) date) 11/15/22 Last unknown) Updated by: Glen Ojeda MD (unknown) (no (unknown) (unknown) Visit Reasons: OB (units (unknown) date) check [place] pt * unknown) (unknown) (no (unknown) (unknown) Vitals (units (unkno wn) date) unknown) (unknown) (no (unknown) (unknown) WG (units (unkno wn) date) unknown) (unknown) (no (unknown) (unknown) Weeks of (units (unkno wn) date) gestation: 37 unknown) weeks Qualified Code(s): Z3A.37 - 37 weeks (unknown) (no (unknown) (unknown) Weight 304 lb (units ( unknown) date) unknown) (unknown) (no (unknown) (unknown) [place] teeth (units (u nknown) date) extracted unknown) (unknown) (no (unknown) (unknown) Would like (units (unk nown) date) referral unknown) to IBCLC and wants hospital grade breast pump at (unknown) (no (unknown) (unknown) Yes no 152 42 (units ( unknown) date) Vertex absent GBS unknown) NEGATIVE (unknown) (no (unknown) (unknown) Zika virus (units (unk nown) date) exposure: No unknown) (unknown) (no (unknown) (unknown) additional social (units (unknown) date) history: unknown) Difficulty other children. Would (unknown) (no (unknown) (unknown) alcohol intake: (units (unknown) date) former unknown) (unknown) (no (unknown) (unknown) anyone in either (units (unknown) date) family with: unknown) (unknown) (no (unknown) (unknown) attempted, unable (units (unknown) date) other Lavelle unknown) (unknown) (no (unknown) (unknown) ay occur. (units (unkn own) date) Occasional unknown) wrong-word or 'sound-alike' substitutions may have (unknown) (no (unknown) (unknown) because she has (units (unknown) date) had difficult unknown) spinals with all 3 of her deliveries. (unknown) (no (unknown) (unknown) bleeding. No (units (u nknown) date) regular unknown) contractions. On ultrasound: Breech presentation. 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 (unknown) (no (unknown) (unknown) contractions. On (units (unknown) date) ultrasound: Vertex unknown) presentation. HUNTER 18.54 cm. Grade 0 (unknown) (no (unknown) (unknown) current (units (unkno wn) date) occupational unknown) exposures/hazards: Yes (unknown) (no (unknown) (unknown) daily servings (units (unknown) date) fruits/ve or unknown) more times/day (unknown) (no (unknown) (unknown) date. (units (unkno wn) date) unknown) (unknown) (no (unknown) (unknown) decided she does (units (unknown) date) NOT want unknown) sterilization procedure performed at that time. Labor (unknown) (no (unknown) (unknown) delivery. (units (unkn own) date) unknown) (unknown) (no (unknown) (unknown) described, visit (units (unknown) date) schedule reviewed, unknown) ultrasounds policy reviewed, coverage 24 (unknown) (no (unknown) (unknown) discussed, (units (unk nown) date) tuberculosis unknown) exposure discussed, CMV discussed, Toxoplasmosis (unknown) (no (unknown) (unknown) do you feel safe (units (unknown) date) at home: Yes unknown) (unknown) (no (unknown) (unknown) during the past (units (unknown) date) year weight has: unknown) other (wide fluctuations since last ) (unknown) (no (unknown) (unknown) education level: (units (unknown) date) vocational (some unknown) college, certificate programs) (unknown) (no (unknown) (unknown) reno-sparks but they are (units (unknown) date) not lasting unknown) multiple days and not as intense. She is using an (unknown) (no (unknown) (unknown) erm [place] (units (u nknown) date) unknown) (unknown) (no (unknown) (unknown) executed today. (units (unknown) date) Labor precautions unknown) reviewed and follow-up SHERMAN w/ HUNTER will be in (unknown) (no (unknown) (unknown) f/u limited (units (un known) date) anatomy views at unknown) 28wk visit with Dr. Baumann. Ordered OGTT, CBC and (unknown) (no (unknown) (unknown) failure to (units (unk nown) date) progress Rosey unknown) (unknown) (no (unknown) (unknown) felt rare (units (unknown) date) movement. No unknown) leakage of fluid or vaginal bleeding. Plan: (unknown) (no (unknown) (unknown) movement. (units (unknown) date) No leakage of unknown) fluid or vaginal bleeding. No regular (unknown) (no (unknown) (unknown) fetoprotein (units (un known) date) ordered. Warning unknown) signs reviewed. Follow-up in 5 weeks. kag (unknown) (no (unknown) (unknown) fire extinguisher (units (unknown) date) in home: Yes unknown) (unknown) (no (unknown) (unknown) firearms in home: (units (unknown) date) Yes firearms unknown) unloaded and locked: Yes (unknown) (no (unknown) (unknown) flaxseed Allergy (units (unknown) date) (Severe, Verified unknown) 11/01/22 11:31) (unknown) (no (unknown) (unknown) flu or covid (units (u nknown) date) vaccines received) unknown) (unknown) (no (unknown) (unknown) free DNA showed (units (unknown) date) normal female. She unknown) continues to have migraines several days a w (unknown) (no (unknown) (unknown) from 2 weeks ago (units (unknown) date) and slightly above unknown) the normal range for this EGA. HHS form 687 (unknown) (no (unknown) (unknown) gestation of (units (u nknown) date) unknown) (unknown) (no (unknown) (unknown) gestational age. (units (unknown) date) She is having a unknown) few [place] contractions but denies (unknown) (no (unknown) (unknown) grade breast pump (units (unknown) date) that she can have unknown) when she goes home from hospital after (unknown) (no (unknown) (unknown) had her 20 week (units (unknown) date) ultrasound today. unknown) Those results are not available. She has (unknown) (no (unknown) (unknown) had limited heart (units (unknown) date) and outflow tract unknown) views from her anatomy US. Plan 3D US and (unknown) (no (unknown) (unknown) have occurred. If (units (unknown) date) there are any unknown) questions, please contact the Medical Records (unknown) (no (unknown) (unknown) hours a day and (units (unknown) date) participation of unknown) father in care and office visits (unknown) (no (unknown) (unknown) household members: (units (unknown) date) spouse, family unknown) ([id number] and his 3 children (moving out (unknown) (no (unknown) (unknown) housing: house (units (unknown) date) unknown) (unknown) (no (unknown) (unknown) in discharge. Her (units (unknown) date) baby remains unknown) active however. HUNTER today is slightly increased (unknown) (no (unknown) (unknown) is still having (units (unknown) date) occasional unknown) headaches. Good movement. No leakage of fluid (unknown) (no (unknown) (unknown) jw (units (unkno wn) date) unknown) (unknown) (no (unknown) (unknown) kag (units (unkno wn) date) unknown) (unknown) (no (unknown) (unknown) ligation, but she (units (unknown) date) says that she has unknown) changed her mind and at this point does NOT (unknown) (no (unknown) (unknown) lives (units (unkno wn) date) independently: Yes unknown) (unknown) (no (unknown) (unknown) m 2 wks (units (unkno wn) date) unknown) (unknown) (no (unknown) (unknown) marital status: (units (unknown) date) unknown) (unknown) (no (unknown) (unknown) medication. No (units (unknown) date) vaginal bleeding. unknown) On ultrasound: Intrauterine gestational sac (unknown) (no (unknown) (unknown) migraines and (units ( unknown) date) these are getting unknown) a little better. She is using the prescribed (unknown) (no (unknown) (unknown) months other Iyla (units (unknown) date) unknown) (unknown) (no (unknown) (unknown) number of (units (unkn own) date) children: 3 unknown) (unknown) (no (unknown) (unknown) occasional 1 (units (u nknown) date) Percocet to treat unknown) these. Plan: 20 week ultrasound ordered. Alpha (unknown) (no (unknown) (unknown) occupational (units (u nknown) date) status: unemployed unknown) and previously employed (unknown) (no (unknown) (unknown) occurred due to (units (unknown) date) the inherent unknown) limitations of voice recognition software. Please (unknown) (no (unknown) (unknown) or vaginal (units (unk nown) date) bleeding. On unknown) ultrasound: Breech presentation. AGA 29 weeks 2 days. (unknown) (no (unknown) (unknown) pets and animals: (units (unknown) date) Yes (horses) unknown) (unknown) (no (unknown) (unknown) placenta. Plan: (units (unknown) date) GBS obtained. unknown) Follow-up in 1 week. Warning signs reviewed. (unknown) (no (unknown) (unknown) polyhydramnios (units (unknown) date) unknown) (unknown) (no (unknown) (unknown) precautions (units (un known) date) reviewed and this unknown) will be her last visit. (unknown) (no (unknown) (unknown) precautions, (units (u nknown) date) Listeriosis unknown) prevention and Rubella Immunization (unknown) (no (unknown) (unknown) read the note (units ( unknown) date) carefully and unknown) recognize, using context, where these substitutions (unknown) (no (unknown) (unknown) really like to (units (unknown) date) meet w/ IBCLC unknown) prior to delivery and would like Rx for hospital (unknown) (no (unknown) (unknown) regular uterine (units (unknown) date) contractions, unknown) bleeding, leakage of fluid per vagina, or change (unknown) (no (unknown) (unknown) reports good (units (u nknown) date) movement and unknown) denies VB, LOF, contractions and cramping. She (unknown) (no (unknown) (unknown) reviewed. 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 (units (unkn own) date) Although every unknown) effort is made to edit content, fountain brush assembler errors m (unknown) (no (unknown) (unknown) soon)) and (units (unk nown) date) children unknown) (unknown) (no (unknown) (unknown) special roland (units ( unknown) date) needs: No unknown) (unknown) (no (unknown) (unknown) substance use (units (u nknown) date) type: marijuana unknown) (in the past, not recently and not while ) (unknown) (no (unknown) (unknown) term [place] (units ( unknown) date) [place] unknown) (unknown) (no (unknown) (unknown) volume. The heart (units (unknown) date) and outflow tracts unknown) could not be visualized. Follow-up in 3 (unknown) (no (unknown) (unknown) want to proceed (units (unknown) date) with the tubal unknown) (unknown) (no (unknown) (unknown) water heater temp (units (unknown) date) set < 120 deg: Yes unknown) (unknown) (no (unknown) (unknown) weeks with repeat (units (unknown) date) ultrasound to unknown) check fluid. Warning signs reviewed. (unknown) (no (unknown) (unknown) weight gain, Fish (units (unknown) date) and mercury unknown) intake, Caffeine use, Exercise and activity, (unknown) (no (unknown) (unknown) well-balanced (units ( unknown) date) diet: daily or unknown) most days (unknown) (no (unknown) (unknown) with 11 weeks 3 (units (unknown) date) days. Left ovary unknown) is normal. Plan: Cell free DNA ordered. (unknown) (no (unknown) (unknown) with a fetus with (units (unknown) date) a crown-rump unknown) length measuring 4.63 cm. This is consistent (unknown) (no (unknown) (unknown) work/environmenta (units (unknown) date) l/hazards, Sexual unknown) activity, X-ray exposure, Medication use, (unknown) (no (unknown) (unknown) working smoke (units ( unknown) date) detector in home: unknown) Yes Result panel 171 (unknown) (no date) (unknown) (unknown) 1.0 % (unkn own) (unknown) (no date) (unknown) (unknown) 10.9 g/dl (unkn own) (unknown) (no date) (unknown) (unknown) 100 /ul (unkn own) (unknown) (no date) (unknown) (unknown) 100 /ul (unkn own) (unknown) (no date) (unknown) (unknown) 16.0 % (unkn own) (unknown) (no date) (unknown) (unknown) 2.0 % (unkn own) (unknown) (no date) (unknown) (unknown) 2000 /ul (unkn own) (unknown) (no date) (unknown) (unknown) 245 x10 3/ul (unkn own) (unknown) (no date) (unknown) (unknown) 26.7 pg (unkn own) (unknown) (no date) (unknown) (unknown) 29.1 % (unkn own) (unknown) (no date) (unknown) (unknown) 32.7 % (unkn own) (unknown) (no date) (unknown) (unknown) 33.3 % (unkn own) (unknown) (no date) (unknown) (unknown) 4.08 x10 6/ul (unkn own) (unknown) (no date) (unknown) (unknown) 4200 /ul (unkn own) (unknown) (no date) (unknown) (unknown) 59.7 % (unkn own) (unknown) (no date) (unknown) (unknown) 600 /ul (unkn own) (unknown) (no date) (unknown) (unknown) 7.0 x10 3/ul (unkn own) (unknown) (no date) (unknown) (unknown) 8.2 % (unkn own) (unknown) (no date) (unknown) (unknown) 80.1 fl (unkn own) Result panel 172 (unknown) (no date) (unknown) (unknown) Negative (units (unkn own) unknown) (unknown) (no date) (unknown) (unknown) Negative (units (unkn own) unknown) Result panel 173 (unknown) (no date) (unknown) (unknown) A Positive (units (un known) unknown) (unknown) (no date) (unknown) (unknown) NEGATIVE (units (unkn own) unknown) Result panel 174 (unknown) (no (unknown) (unknown) (no value) (units (unk nown) date) unknown) (unknown) (no (unknown) (unknown) -: Chlamydia (units (u nknown) date) screen: negative, unknown) Gonorrhea screen: negative and Urine: negative (unknown) (no (unknown) (unknown) -: Urine: (units (unkn own) date) negative unknown) (unknown) (no (unknown) (unknown) 11/24/22 11/24/22 (units (unknown) date) 11/24/22 unknown) (unknown) (no (unknown) (unknown) 11/24/22 06:26 (units (unknown) date) unknown) (unknown) (no (unknown) (unknown) 01/24/14 41 17 7 (units (unknown) date) lb 1 oz Female unknown) live - full t (unknown) (no (unknown) (unknown) 02/19/21 39 7 lb (units (unknown) date) 12 oz Female live unknown) - full term (unknown) (no (unknown) (unknown) 06:25 06:26 06:26 (units (unknown) date) unknown) (unknown) (no (unknown) (unknown) 06/16/15 38 7 lb (units (unknown) date) 13 oz Male unknown) live - full (unknown) (no (unknown) (unknown) 10/18/21 8 (units (unk nown) date) spontaneous unknown) (unknown) (no (unknown) (unknown) 14:21 (units (unkno wn) date) unknown) (unknown) (no (unknown) (unknown) :21 (units (unkno wn) date) unknown) (unknown) (no (unknown) (unknown) ADHD (units (unkno wn) date) unknown) (unknown) (no (unknown) (unknown) Age/Sex: 32 / F (units (unknown) date) unknown) (unknown) (no (unknown) (unknown) Alcoholism (units (unk nown) date) unknown) (unknown) (no (unknown) (unknown) Allergies (units (unkn own) date) unknown) (unknown) (no (unknown) (unknown) Allergy/AdvReac (units (unknown) date) Type Severity unknown) Reaction Status Date / Time (unknown) (no (unknown) (unknown) Anesthesia (units (unk nown) date) unknown) (unknown) (no (unknown) (unknown) Antibody Screen (units (unknown) date) Negative 11/24/22 unknown) 06:26 (unknown) (no (unknown) (unknown) Antibody Screen (units (unknown) date) Negative unknown) (unknown) (no (unknown) (unknown) Baso # (Auto) 100 (units (unknown) date) unknown) (unknown) (no (unknown) (unknown) Baso % (Auto) 1.0 (units (unknown) date) unknown) (unknown) (no (unknown) (unknown) Yonis 2 months (units (unknown) date) post-dates unknown) induction (unknown) (no (unknown) (unknown) Blood Type A (units (u nknown) date) Positive 11/24/22 unknown) 06:26 (unknown) (no (unknown) (unknown) Blood Type A (units (u nknown) date) Positive unknown) (unknown) (no (unknown) (unknown) Breastfeed Preg (units (unknown) date) Comp Name unknown) (unknown) (no (unknown) (unknown) Carpal tunnel (units ( unknown) date) syndrome (-2017) unknown) (unknown) (no (unknown) (unknown) Chief complaint: (units (unknown) date) INPT unknown) (unknown) (no (unknown) (unknown) Current Estimate (units (unknown) date) 11/30/22 LMP unknown) (Certain) 39w 1d (unknown) (no (unknown) (unknown) : 1990 (units (unknown) date) Acct:[id number] unknown) (unknown) (no (unknown) (unknown) Date Patient (units (u nknown) date) Seen: 11/24/22 unknown) (unknown) (no (unknown) (unknown) Date of Service: (units (unknown) date) 11/24/22 unknown) (unknown) (no (unknown) (unknown) Date of (units (unkno wn) date) admission: unknown) 11/24/22 (unknown) (no (unknown) (unknown) Date/Time (units (unkn own) date) unknown) (unknown) (no (unknown) (unknown) Dating criteria (units (unknown) date) OB: LMP confirmed unknown) by 1st trimester US (unknown) (no (unknown) (unknown) Daughter Juvenile (units (unknown) date) arthritis unknown) (unknown) (no (unknown) (unknown) Del. Date (units (unkn own) date) GA/Weeks Labor unknown) Lgth Wt Sex Route Outcome Anesthesia Place (unknown) (no (unknown) (unknown) Delivery Date: (units (unknown) date) 02/19/21 Last unknown) Updated by: Susi Petersen RN (unknown) (no (unknown) (unknown) Delivery Date: (units (unknown) date) 06/16/15 Last unknown) Updated by: Susi Petersen RN (unknown) (no (unknown) (unknown) Delv (units (unkno wn) date) unknown) (unknown) (no (unknown) (unknown) Depression (units (unk nown) date) (-1999) unknown) (unknown) (no (unknown) (unknown) ECTOR Calculator (units (unknown) date) unknown) (unknown) (no (unknown) (unknown) Eos # (Auto) 100 (units (unknown) date) unknown) (unknown) (no (unknown) (unknown) Eos % (Auto) 2.0 (units (unknown) date) unknown) (unknown) (no (unknown) (unknown) Estimated (units (unkn own) date) Delivery Date unknown) Method Current (unknown) (no (unknown) (unknown) Estimated (units (unkn own) date) Gestational Age unknown) (weeks): 39+1 (unknown) (no (unknown) (unknown) External Labs (units ( unknown) date) unknown) (unknown) (no (unknown) (unknown) Family History (units (unknown) date) (Updated 06/08/22 unknown) @ 21:23 by Aurora Arevalo) (unknown) (no (unknown) (unknown) Father Diabetes (units (unknown) date) mellitus unknown) (unknown) (no (unknown) (unknown) Foot pain () (units (unknown) date) unknown) (unknown) (no (unknown) (unknown) Glucose 1 Hour 88 (units (unknown) date) mg/dL (76-139) unknown) 08/22/22 11:15 (unknown) (no (unknown) (unknown) : 5 (units (unk nown) date) unknown) (unknown) (no (unknown) (unknown) Group B (units (unkno wn) date) Streptococcus unknown) (PCR) Neg for grp b strep 11/01/22 12:22 (unknown) (no (unknown) (unknown) Hct 32.7 L (units (unk nown) date) unknown) (unknown) (no (unknown) (unknown) Heavy menstrual (units (unknown) date) period (-2020) unknown) (unknown) (no (unknown) (unknown) Hematocrit 32.7 % (units (unknown) date) (36-46) L 11/24/22 unknown) 06:26 (unknown) (no (unknown) (unknown) Hemoglobin 10.9 (units (unknown) date) g/dL (12.0-16.0) L unknown) 11/24/22 06:26 (unknown) (no (unknown) (unknown) Hepatitis B (units (un known) date) Surface Antigen unknown) Negative s/c (NEGATIVE) 05/13/22 14 (unknown) (no (unknown) (unknown) Hepatitis C (units (un known) date) Antibody Negative unknown) s/c (NEGATIVE) 05/13/22 14:21 (unknown) (no (unknown) (unknown) Hgb 10.9 L (units (unk nown) date) unknown) (unknown) (no (unknown) (unknown) History of (units (unk nown) date) Present Condition unknown) (unknown) (no (unknown) (unknown) History of (units (unk nown) date) polyhydramnios unknown) (unknown) (no (unknown) (unknown) History of (units (unk nown) date) surgery unknown) (unknown) (no (unknown) (unknown) Home Medications (units (unknown) date) and Allergies unknown) (unknown) (no (unknown) (unknown) Home Medications (units (unknown) date) unknown) (unknown) (no (unknown) (unknown) [facility] (units (unknown) date) [address] unknown) [place] [address] (unknown) (no (unknown) (unknown) Laboratory (units (unk nown) date) Results - last 24 unknown) hr (unknown) (no (unknown) (unknown) Labs (units (unkno wn) date) unknown) (unknown) (no (unknown) (unknown) Labs: (units (unkno wn) date) unknown) (unknown) (no (unknown) (unknown) Last OB Lab (units (un known) date) Results: unknown) (unknown) (no (unknown) (unknown) Lymph # (Auto) (units (unknown) date) 2000 unknown) (unknown) (no (unknown) (unknown) Lymph % (Auto) (units (unknown) date) 29.1 unknown) (unknown) (no (unknown) (unknown) [id number] (units (unk nown) date) unknown) (unknown) (no (unknown) (unknown) MCH 26.7 (units (unkno wn) date) unknown) (unknown) (no (unknown) (unknown) MCHC 33.3 (units (unkn own) date) unknown) (unknown) (no (unknown) (unknown) MCV 80.1 (units (unkno wn) date) unknown) (unknown) (no (unknown) (unknown) Medical History (units (unknown) date) (Updated 11/15/22 unknown) @ 11:51 by Glen Ojeda MD) (unknown) (no (unknown) (unknown) Medical (units (unkno wn) date) complications OB: unknown) other (obesity) (unknown) (no (unknown) (unknown) Medication (units (unk nown) date) Instructions unknown) Recorded Confirmed Type (unknown) (no (unknown) (unknown) Meds (units (unkno wn) date) unknown) (unknown) (no (unknown) (unknown) Mental health (units ( unknown) date) problem unknown) (unknown) (no (unknown) (unknown) Levy # (Auto) 600 (units (unknown) date) unknown) (unknown) (no (unknown) (unknown) Levy % (Auto) 8.2 (units (unknown) date) unknown) (unknown) (no (unknown) (unknown) Mother Depression (units (unknown) date) unknown) (unknown) (no (unknown) (unknown) Nearsightedness (units (unknown) date) unknown) (unknown) (no (unknown) (unknown) Neut # (Auto) (units ( unknown) date) 4200 unknown) (unknown) (no (unknown) (unknown) Neut % (Auto) (units ( unknown) date) 59.7 unknown) (unknown) (no (unknown) (unknown) OB HPI (units (unkno wn) date) unknown) (unknown) (no (unknown) (unknown) 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 + (units (unknown) date) Physical unknown) (unknown) (no (unknown) (unknown) Objective (units (unkn own) date) unknown) (unknown) (no (unknown) (unknown) Obstetrical (units (un known) date) complications: unknown) none (unknown) (no (unknown) (unknown) PFSH (units (unkno wn) date) unknown) (unknown) (no (unknown) (unknown) PTSD (units (unkno wn) date) (post-traumatic unknown) stress disorder) (-1999) (unknown) (no (unknown) (unknown) Painful menstrual (units (unknown) date) periods (-2019) unknown) (unknown) (no (unknown) (unknown) Para: 3 (units (unkno wn) date) unknown) (unknown) (no (unknown) (unknown) Past Pregnancies (units (unknown) date) unknown) (unknown) (no (unknown) (unknown) Patient: White (units (unknown) date) Brittany Lindquist MR#: unknown) (unknown) (no (unknown) (unknown) Plt Count 245 (units ( unknown) date) unknown) (unknown) (no (unknown) (unknown) Polyhydramnios (units (unknown) date) unknown) (unknown) (no (unknown) (unknown) (units (unk nown) date) depression unknown) (unknown) (no (unknown) (unknown) Preadmission Labs (units (unknown) date) unknown) (unknown) (no (unknown) (unknown) care: (units (unknown) date) good care, unknown) initiated at week # (11), number of visits (9) and (unknown) (no (unknown) (unknown) Previous (units (unknown) date) section unknown) (unknown) (no (unknown) (unknown) Prior (units (unkno wn) date) (ies) unknown) (unknown) (no (unknown) (unknown) [place] (units (unk nown) date) [place] 4 unknown) (unknown) (no (unknown) (unknown) Provider: (units (unkn own) date) Josefina Baumann unknown) (unknown) (no (unknown) (unknown) RBC 4.08 (units (unkno wn) date) unknown) (unknown) (no (unknown) (unknown) RDW 16.0 H (units (unk nown) date) unknown) (unknown) (no (unknown) (unknown) RPR Titer (units (unkn own) date) Additional Testing unknown) see below 05/13/22 14:21 (unknown) (no (unknown) (unknown) 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 unknown) (unknown) (no (unknown) (unknown) Result Diagrams: (units (unknown) date) unknown) (unknown) (no (unknown) (unknown) Rubella Antibody (units (unknown) date) 12.0 IU/mL (>15) L unknown) 05/13/22 14:21 (unknown) (no (unknown) (unknown) Rx (units (unkno wn) date) unknown) (unknown) (no (unknown) (unknown) SARS-CoV-2 (PCR) (units (unknown) date) Negative unknown) (unknown) (no (unknown) (unknown) Signed By: (units (unk nown) date) unknown) (unknown) (no (unknown) (unknown) Smoking Status: (units (unknown) date) Former smoker unknown) (unknown) (no (unknown) (unknown) Social History (units (unknown) date) unknown) (unknown) (no (unknown) (unknown) Son Hearing loss (units (unknown) date) unknown) (unknown) (no (unknown) (unknown) Surgical History (units (unknown) date) (Updated 07/12/22 unknown) @ 15:10 by Josefina Baumann MD) (unknown) (no (unknown) (unknown) Time Patient (units (u nknown) date) Seen: 08:30 unknown) (unknown) (no (unknown) (unknown) Type(s) of (units (unk nown) date) exercise: walking unknown) (unknown) (no (unknown) (unknown) Ultrasounds: (units (u nknown) date) normal 1st unknown) trimester US and normal mid trimester US (unknown) (no (unknown) (unknown) Varicella-Zoster (units (unknown) date) IgG Antibody 742 unknown) index (Immune >165) 05/13/22 (unknown) (no (unknown) (unknown) WBC 7.0 (units (unkno wn) date) unknown) (unknown) (no (unknown) (unknown) WG (units (unkno wn) date) unknown) (unknown) (no (unknown) (unknown) [place] teeth (units (u nknown) date) extracted unknown) (unknown) (no (unknown) (unknown) [Embedded Image (units (unknown) date) Not Available] unknown) (unknown) (no (unknown) (unknown) additional social (units (unknown) date) history: unknown) Difficulty other children. Would (unknown) (no (unknown) (unknown) alcohol intake: (units (unknown) date) former unknown) (unknown) (no (unknown) (unknown) attempted, unable (units (unknown) date) other [place] unknown) (unknown) (no (unknown) (unknown) azithromycin 250 (units (unknown) date) mg tablet See Rx unknown) Instructions PO .COMPLEX #6 10/07/22 11/01/22 (unknown) (no (unknown) (unknown) caffeine: Yes (units ( unknown) date) (soft drinks in unknown) small quantities, well within 200mg limit) (unknown) (no (unknown) (unknown) carbon monox (units (u nknown) date) detector in home: unknown) Yes (unknown) (no (unknown) (unknown) current (units (unkno wn) date) occupational unknown) exposures/hazards: Yes (unknown) (no (unknown) (unknown) daily servings (units (unknown) date) fruits/ve or unknown) more times/day (unknown) (no (unknown) (unknown) delivery. (units (unkn own) date) unknown) (unknown) (no (unknown) (unknown) do you feel safe (units (unknown) date) at home: Yes unknown) (unknown) (no (unknown) (unknown) double electric (units (unknown) date) breast pump 1 ea unknown) topical .prn #1 ea 11/01/22 Rx (unknown) (no (unknown) (unknown) during the past (units (unknown) date) year weight has: unknown) other (wide fluctuations since last ) (unknown) (no (unknown) (unknown) education level: (units (unknown) date) vocational (some unknown) college, certificate programs) (unknown) (no (unknown) (unknown) erm [place] (units (u nknown) date) unknown) (unknown) (no (unknown) (unknown) failure to (units (unk nown) date) progress [place] unknown) (unknown) (no (unknown) (unknown) fire extinguisher (units (unknown) date) in home: Yes unknown) (unknown) (no (unknown) (unknown) firearms in home: (units (unknown) date) Yes firearms unknown) unloaded and locked: Yes (unknown) (no (unknown) (unknown) flaxseed Allergy (units (unknown) date) Severe Anaphylaxis unknown) Verified 11/01/22 11:31 (unknown) (no (unknown) (unknown) grade breast pump (units (unknown) date) that she can have unknown) when she goes home from hospital after (unknown) (no (unknown) (unknown) household (units (unkn own) date) members: spouse, unknown) family (litivce-hu-iuj and his 3 children (moving (unknown) (no (unknown) (unknown) housing: house (units (unknown) date) unknown) (unknown) (no (unknown) (unknown) hydroxyzine HCl 25 (units (unknown) date) mg tablet 25 mg PO unknown) TID PRN anxiety #20 tabs 09/16/22 11/01/22 (unknown) (no (unknown) (unknown) levothyroxine 137 (units (unknown) date) mcg tablet 137 mcg unknown) PO DAILY #30 tabs 10/17/22 11/01/22 Rx (unknown) (no (unknown) (unknown) lives (units (unkno wn) date) independently: Yes unknown) (unknown) (no (unknown) (unknown) magnesium 200 mg (units (unknown) date) tablet 200 mg PO unknown) DAILY 05/03/22 11/01/22 History (unknown) (no (unknown) (unknown) marital status: (units (unknown) date) unknown) (unknown) (no (unknown) (unknown) months other Iyla (units (unknown) date) unknown) (unknown) (no (unknown) (unknown) number of (units (unkn own) date) children: 3 unknown) (unknown) (no (unknown) (unknown) occupational (units (u nknown) date) status: unemployed unknown) and previously employed (unknown) (no (unknown) (unknown) ondansetron 4 mg (units (unknown) date) disintegrating 4 unknown) mg PO Q6H PRN nausea and 05/17/22 11/01/22 Rx (unknown) (no (unknown) (unknown) out soon)) and (units (unknown) date) children unknown) (unknown) (no (unknown) (unknown) oxycodone 5 mg (units (unknown) date) tablet 5 mg PO Q6H unknown) PRN pain #10 tabs 10/12/22 11/01/22 Rx (unknown) (no (unknown) (unknown) pets and animals: (units (unknown) date) Yes (horses) unknown) (unknown) (no (unknown) (unknown) polyhydramnios (units (unknown) date) unknown) (unknown) (no (unknown) (unknown) pounds weight (units ( unknown) date) gain (49) unknown) (unknown) (no (unknown) (unknown) ) (units (unkn own) date) unknown) (unknown) (no (unknown) (unknown) prenat.vits,alexey,m (units (unknown) date) up-szrr-ulzyq 1 unknown) tab PO DAILY 04/22/22 11/01/22 History (unknown) (no (unknown) (unknown) really like to (units (unknown) date) meet w/ IBCLC unknown) prior to delivery and would like Rx for hospital (unknown) (no (unknown) (unknown) seatbelt use: (units ( unknown) date) always unknown) (unknown) (no (unknown) (unknown) second hand (units (un known) date) exposure: No unknown) (unknown) (no (unknown) (unknown) severe (units (unkno wn) date) polyhydramnios; unknown) laryngomalacia (unknown) (no (unknown) (unknown) special [place] (units ( unknown) date) needs: No unknown) (unknown) (no (unknown) (unknown) substance use (units ( unknown) date) type: marijuana unknown) (in the past, not recently and not while (unknown) (no (unknown) (unknown) tablet vomiting (units (unknown) date) #20 tabs unknown) (unknown) (no (unknown) (unknown) tabs (units (unkno wn) date) unknown) (unknown) (no (unknown) (unknown) term [place] (units ( unknown) date) Yonis unknown) (unknown) (no (unknown) (unknown) water heater temp (units (unknown) date) set < 120 deg: Yes unknown) (unknown) (no (unknown) (unknown) well-balanced (units ( unknown) date) diet: daily or unknown) most days (unknown) (no (unknown) (unknown) working smoke (units ( unknown) date) detector in home: unknown) Yes Result panel 175 (unknown) (no (unknown) (unknown) (no value) (units (unk nown) date) unknown) (unknown) (no (unknown) (unknown) -: Chlamydia (units (u nknown) date) screen: negative, unknown) Gonorrhea screen: negative and Urine: negative (unknown) (no (unknown) (unknown) -: Urine: (units (unkn own) date) negative unknown) (unknown) (no (unknown) (unknown) 11/24/22 11/24/22 (units (unknown) date) 11/24/22 unknown) (unknown) (no (unknown) (unknown) 11/24/22 06:26 (units (unknown) date) unknown) (unknown) (no (unknown) (unknown) 01/24/14 41 17 7 (units (unknown) date) lb 1 oz Female unknown) live - full t (unknown) (no (unknown) (unknown) 02/19/21 39 7 lb (units (unknown) date) 12 oz Female live unknown) - full term (unknown) (no (unknown) (unknown) 06:25 06:26 06:26 (units (unknown) date) unknown) (unknown) (no (unknown) (unknown) 06/16/15 38 7 lb (units (unknown) date) 13 oz Male unknown) live - full (unknown) (no (unknown) (unknown) 10/18/21 8 (units (unk nown) date) spontaneous unknown) (unknown) (no (unknown) (unknown) 14:21 (units (unkno wn) date) unknown) (unknown) (no (unknown) (unknown) :21 (units (unkno wn) date) unknown) (unknown) (no (unknown) (unknown) ADHD (units (unkno wn) date) unknown) (unknown) (no (unknown) (unknown) Age/Sex: 32 / F (units (unknown) date) unknown) (unknown) (no (unknown) (unknown) Alcoholism (units (unk nown) date) unknown) (unknown) (no (unknown) (unknown) Allergies (units (unkn own) date) unknown) (unknown) (no (unknown) (unknown) Allergy/AdvReac (units (unknown) date) Type Severity unknown) Reaction Status Date / Time (unknown) (no (unknown) (unknown) Anesthesia (units (unk nown) date) unknown) (unknown) (no (unknown) (unknown) Antibody Screen (units (unknown) date) Negative 11/24/22 unknown) 06:26 (unknown) (no (unknown) (unknown) Antibody Screen (units (unknown) date) Negative unknown) (unknown) (no (unknown) (unknown) Baseline (units (unknown) date) heart rate: 135 unknown) (unknown) (no (unknown) (unknown) Baso # (Auto) 100 (units (unknown) date) unknown) (unknown) (no (unknown) (unknown) Baso % (Auto) 1.0 (units (unknown) date) unknown) (unknown) (no (unknown) (unknown) [place] 2 months (units (unknown) date) post-dates unknown) induction (unknown) (no (unknown) (unknown) Blood Type A (units (u nknown) date) Positive 11/24/22 unknown) 06:26 (unknown) (no (unknown) (unknown) Blood Type A (units (u nknown) date) Positive unknown) (unknown) (no (unknown) (unknown) Breastfeed Preg (units (unknown) date) Comp Name unknown) (unknown) (no (unknown) (unknown) Carpal tunnel (units ( unknown) date) syndrome (-2017) unknown) (unknown) (no (unknown) (unknown) Chief complaint: (units (unknown) date) INPT unknown) (unknown) (no (unknown) (unknown) Current Estimate (units (unknown) date) 11/30/22 LMP unknown) (Certain) 39w 1d (unknown) (no (unknown) (unknown) : 1990 (units (unknown) date) Acct:[id number] unknown) (unknown) (no (unknown) (unknown) Date Patient (units (u nknown) date) Seen: 11/24/22 unknown) (unknown) (no (unknown) (unknown) Date of Service: (units (unknown) date) 11/24/22 unknown) (unknown) (no (unknown) (unknown) Date of (units (unkno wn) date) admission: unknown) 11/24/22 (unknown) (no (unknown) (unknown) Date/Time (units (unkn own) date) unknown) (unknown) (no (unknown) (unknown) Dating criteria (units (unknown) date) OB: LMP confirmed unknown) by 1st trimester US (unknown) (no (unknown) (unknown) Daughter Juvenile (units (unknown) date) arthritis unknown) (unknown) (no (unknown) (unknown) Del. Date (units (unkn own) date) GA/Weeks Labor unknown) Lgth Wt Sex Route Outcome Anesthesia Place (unknown) (no (unknown) (unknown) Delivery Date: (units (unknown) date) 02/19/21 Last unknown) Updated by: Susi Petersen RN (unknown) (no (unknown) (unknown) Delivery Date: (units (unknown) date) 06/16/15 Last unknown) Updated by: Susi Petersen RN (unknown) (no (unknown) (unknown) Delv (units (unkno wn) date) unknown) (unknown) (no (unknown) (unknown) Depression (units (unk nown) date) () unknown) (unknown) (no (unknown) (unknown) ECTOR Calculator (units (unknown) date) unknown) (unknown) (no (unknown) (unknown) Eos # (Auto) 100 (units (unknown) date) unknown) (unknown) (no (unknown) (unknown) Eos % (Auto) 2.0 (units (unknown) date) unknown) (unknown) (no (unknown) (unknown) Estimated (units (unkn own) date) Delivery Date unknown) Method Current (unknown) (no (unknown) (unknown) Estimated (units (unkn own) date) Gestational Age unknown) (weeks): 39+1 (unknown) (no (unknown) (unknown) Evaluation (units (unk nown) date) unknown) (unknown) (no (unknown) (unknown) External Labs (units ( unknown) date) unknown) (unknown) (no (unknown) (unknown) Family History (units (unknown) date) (Updated 06/08/22 unknown) @ 21:23 by Aurora Arevalo) (unknown) (no (unknown) (unknown) Father Diabetes (units (unknown) date) mellitus unknown) (unknown) (no (unknown) (unknown) Monitor (units ( unknown) date) Decelerations: unknown) Absent (unknown) (no (unknown) (unknown) Status: (units ( unknown) date) Category l unknown) (unknown) (no (unknown) (unknown) monitor (units ( unknown) date) accelerations: unknown) Present (unknown) (no (unknown) (unknown) Foot pain () (units (unknown) date) unknown) (unknown) (no (unknown) (unknown) Genetic Screens: (units (unknown) date) Cell-free DNA: unknown) Normal (unknown) (no (unknown) (unknown) Glucose 1 Hour 88 (units (unknown) date) mg/dL (76-139) unknown) 08/22/22 11:15 (unknown) (no (unknown) (unknown) : 5 (units (unk nown) date) unknown) (unknown) (no (unknown) (unknown) Group B (units (unkno wn) date) Streptococcus unknown) (PCR) Neg for grp b strep 11/01/22 12:22 (unknown) (no (unknown) (unknown) Hct 32.7 L (units (unk nown) date) unknown) (unknown) (no (unknown) (unknown) Heavy menstrual (units (unknown) date) period (-2020) unknown) (unknown) (no (unknown) (unknown) Hematocrit 32.7 % (units (unknown) date) (36-46) L 11/24/22 unknown) 06:26 (unknown) (no (unknown) (unknown) Hemoglobin 10.9 (units (unknown) date) g/dL (12.0-16.0) L unknown) 11/24/22 06:26 (unknown) (no (unknown) (unknown) Hepatitis B (units (un known) date) Surface Antigen unknown) Negative s/c (NEGATIVE) 05/13/22 14 (unknown) (no (unknown) (unknown) Hepatitis C (units (un known) date) Antibody Negative unknown) s/c (NEGATIVE) 05/13/22 14:21 (unknown) (no (unknown) (unknown) Hgb 10.9 L (units (unk nown) date) unknown) (unknown) (no (unknown) (unknown) History of (units (unk nown) date) Present Condition unknown) (unknown) (no (unknown) (unknown) History of (units (unk nown) date) polyhydramnios unknown) (unknown) (no (unknown) (unknown) History of (units (unk nown) date) surgery unknown) (unknown) (no (unknown) (unknown) Home Medications (units (unknown) date) and Allergies unknown) (unknown) (no (unknown) (unknown) Home Medications (units (unknown) date) unknown) (unknown) (no (unknown) (unknown) [facility] (units (unknown) date) [address] unknown) [place] [address] (unknown) (no (unknown) (unknown) Laboratory (units (unk nown) date) Results - last 24 unknown) hr (unknown) (no (unknown) (unknown) Labs (units (unkno wn) date) unknown) (unknown) (no (unknown) (unknown) Labs: (units (unkno wn) date) unknown) (unknown) (no (unknown) (unknown) Last OB Lab (units (un known) date) Results: unknown) (unknown) (no (unknown) (unknown) Lymph # (Auto) (units (unknown) date) 2000 unknown) (unknown) (no (unknown) (unknown) Lymph % (Auto) (units (unknown) date) 29.1 unknown) (unknown) (no (unknown) (unknown) [id number] (units (unk nown) date) unknown) (unknown) (no (unknown) (unknown) MCH 26.7 (units (unkno wn) date) unknown) (unknown) (no (unknown) (unknown) MCHC 33.3 (units (unkn own) date) unknown) (unknown) (no (unknown) (unknown) MCV 80.1 (units (unkno wn) date) unknown) (unknown) (no (unknown) (unknown) Medical History (units (unknown) date) (Updated 11/15/22 unknown) @ 11:51 by Glen Ojeda MD) (unknown) (no (unknown) (unknown) Medical (units (unkno wn) date) complications OB: unknown) other (obesity) (unknown) (no (unknown) (unknown) Medication (units (unk nown) date) Instructions unknown) Recorded Confirmed Type (unknown) (no (unknown) (unknown) Meds (units (unkno wn) date) unknown) (unknown) (no (unknown) (unknown) Mental health (units ( unknown) date) problem unknown) (unknown) (no (unknown) (unknown) [place] # (Auto) 600 (units (unknown) date) unknown) (unknown) (no (unknown) (unknown) [place] % (Auto) 8.2 (units (unknown) date) unknown) (unknown) (no (unknown) (unknown) Mother Depression (units (unknown) date) unknown) (unknown) (no (unknown) (unknown) Nearsightedness (units (unknown) date) unknown) (unknown) (no (unknown) (unknown) Neut # (Auto) (units ( unknown) date) 4200 unknown) (unknown) (no (unknown) (unknown) Neut % (Auto) (units ( unknown) date) 59.7 unknown) (unknown) (no (unknown) (unknown) OB HPI (units (unkno wn) date) unknown) (unknown) (no (unknown) (unknown) 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 + (units (unknown) date) Physical unknown) (unknown) (no (unknown) (unknown) Objective (units (unkn own) date) unknown) (unknown) (no (unknown) (unknown) Obstetrical (units (un known) date) complications: unknown) none (unknown) (no (unknown) (unknown) PFSH (units (unkno wn) date) unknown) (unknown) (no (unknown) (unknown) PTSD (units (unkno wn) date) (post-traumatic unknown) stress disorder) (-1999) (unknown) (no (unknown) (unknown) Painful menstrual (units (unknown) date) periods () unknown) (unknown) (no (unknown) (unknown) Para: 3 (units (unkno wn) date) unknown) (unknown) (no (unknown) (unknown) Past Pregnancies (units (unknown) date) unknown) (unknown) (no (unknown) (unknown) Patient: White (units (unknown) date) Brittany Lindquist MR#: unknown) (unknown) (no (unknown) (unknown) Plt Count 245 (units ( unknown) date) unknown) (unknown) (no (unknown) (unknown) Polyhydramnios (units (unknown) date) unknown) (unknown) (no (unknown) (unknown) (units (unk nown) date) depression unknown) (unknown) (no (unknown) (unknown) Preadmission Labs (units (unknown) date) unknown) (unknown) (no (unknown) (unknown) care: (units (unknown) date) good care, unknown) initiated at week # (11), number of visits (9) and (unknown) (no (unknown) (unknown) Previous (units (unknown) date) section unknown) (unknown) (no (unknown) (unknown) Prior (units (unkno wn) date) (ies) unknown) (unknown) (no (unknown) (unknown) [place] (units (unk nown) date) [place] 4 unknown) (unknown) (no (unknown) (unknown) Provider: (units (unkn own) date) Josefina Baumann unknown) (unknown) (no (unknown) (unknown) RBC 4.08 (units (unkno wn) date) unknown) (unknown) (no (unknown) (unknown) RDW 16.0 H (units (unk nown) date) unknown) (unknown) (no (unknown) (unknown) RPR Titer (units (unkn own) date) Additional Testing unknown) see below 05/13/22 14:21 (unknown) (no (unknown) (unknown) 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 unknown) (unknown) (no (unknown) (unknown) Result Diagrams: (units (unknown) date) unknown) (unknown) (no (unknown) (unknown) Rubella Antibody (units (unknown) date) 12.0 IU/mL (>15) L unknown) 05/13/22 14:21 (unknown) (no (unknown) (unknown) Rx (units (unkno wn) date) unknown) (unknown) (no (unknown) (unknown) SARS-CoV-2 (PCR) (units (unknown) date) Negative unknown) (unknown) (no (unknown) (unknown) Signed By: (units (unk nown) date) unknown) (unknown) (no (unknown) (unknown) Smoking Status: (units (unknown) date) Former smoker unknown) (unknown) (no (unknown) (unknown) Social History (units (unknown) date) unknown) (unknown) (no (unknown) (unknown) Son Hearing loss (units (unknown) date) unknown) (unknown) (no (unknown) (unknown) Surgical History (units (unknown) date) (Updated 07/12/22 unknown) @ 15:10 by Josefina Baumann MD) (unknown) (no (unknown) (unknown) Time Patient (units (u nknown) date) Seen: 08:30 unknown) (unknown) (no (unknown) (unknown) Type(s) of (units (unk nown) date) exercise: walking unknown) (unknown) (no (unknown) (unknown) Ultrasounds: (units (u nknown) date) normal 1st unknown) trimester US and normal mid trimester US (unknown) (no (unknown) (unknown) Variability: (units (u nknown) date) Moderate (11-25) unknown) (unknown) (no (unknown) (unknown) Varicella-Zoster (units (unknown) date) IgG Antibody 742 unknown) index (Immune >165) 05/13/22 (unknown) (no (unknown) (unknown) WBC 7.0 (units (unkno wn) date) unknown) (unknown) (no (unknown) (unknown) WG (units (unkno wn) date) unknown) (unknown) (no (unknown) (unknown) [place] teeth (units (u nknown) date) extracted unknown) (unknown) (no (unknown) (unknown) [Embedded Image (units (unknown) date) Not Available] unknown) (unknown) (no (unknown) (unknown) additional social (units (unknown) date) history: unknown) Difficulty other children. Would (unknown) (no (unknown) (unknown) alcohol intake: (units (unknown) date) former unknown) (unknown) (no (unknown) (unknown) attempted, unable (units (unknown) date) other [place] unknown) (unknown) (no (unknown) (unknown) azithromycin 250 (units (unknown) date) mg tablet See Rx unknown) Instructions PO .COMPLEX #6 10/07/22 11/01/22 (unknown) (no (unknown) (unknown) caffeine: Yes (units ( unknown) date) (soft drinks in unknown) small quantities, well within 200mg limit) (unknown) (no (unknown) (unknown) carbon monox (units (u nknown) date) detector in home: unknown) Yes (unknown) (no (unknown) (unknown) current (units (unkno wn) date) occupational unknown) exposures/hazards: Yes (unknown) (no (unknown) (unknown) daily servings (units (unknown) date) fruits/ve or unknown) more times/day (unknown) (no (unknown) (unknown) delivery. (units (unkn own) date) unknown) (unknown) (no (unknown) (unknown) do you feel safe (units (unknown) date) at home: Yes unknown) (unknown) (no (unknown) (unknown) double electric (units (unknown) date) breast pump 1 ea unknown) topical .prn #1 ea 11/01/22 Rx (unknown) (no (unknown) (unknown) during the past (units (unknown) date) year weight has: unknown) other (wide fluctuations since last ) (unknown) (no (unknown) (unknown) education level: (units (unknown) date) vocational (some unknown) college, certificate programs) (unknown) (no (unknown) (unknown) erm [place] (units (u nknown) date) unknown) (unknown) (no (unknown) (unknown) failure to (units (unk nown) date) progress [place] unknown) (unknown) (no (unknown) (unknown) fire extinguisher (units (unknown) date) in home: Yes unknown) (unknown) (no (unknown) (unknown) firearms in home: (units (unknown) date) Yes firearms unknown) unloaded and locked: Yes (unknown) (no (unknown) (unknown) flaxseed Allergy (units (unknown) date) Severe Anaphylaxis unknown) Verified 11/01/22 11:31 (unknown) (no (unknown) (unknown) grade breast pump (units (unknown) date) that she can have unknown) when she goes home from hospital after (unknown) (no (unknown) (unknown) household (units (unkn own) date) members: spouse, unknown) family (nezweix-gw-jbb and his 3 children (moving (unknown) (no (unknown) (unknown) housing: house (units (unknown) date) unknown) (unknown) (no (unknown) (unknown) hydroxyzine HCl 25 (units (unknown) date) mg tablet 25 mg PO unknown) TID PRN anxiety #20 tabs 09/16/22 11/01/22 (unknown) (no (unknown) (unknown) levothyroxine 137 (units (unknown) date) mcg tablet 137 mcg unknown) PO DAILY #30 tabs 10/17/22 11/01/22 Rx (unknown) (no (unknown) (unknown) lives (units (unkno wn) date) independently: Yes unknown) (unknown) (no (unknown) (unknown) magnesium 200 mg (units (unknown) date) tablet 200 mg PO unknown) DAILY 05/03/22 11/01/22 History (unknown) (no (unknown) (unknown) marital status: (units (unknown) date) unknown) (unknown) (no (unknown) (unknown) months other Iyla (units (unknown) date) unknown) (unknown) (no (unknown) (unknown) number of (units (unkn own) date) children: 3 unknown) (unknown) (no (unknown) (unknown) occupational (units (u nknown) date) status: unemployed unknown) and previously employed (unknown) (no (unknown) (unknown) ondansetron 4 mg (units (unknown) date) disintegrating 4 unknown) mg PO Q6H PRN nausea and 05/17/22 11/01/22 Rx (unknown) (no (unknown) (unknown) out soon)) and (units (unknown) date) children unknown) (unknown) (no (unknown) (unknown) oxycodone 5 mg (units (unknown) date) tablet 5 mg PO Q6H unknown) PRN pain #10 tabs 10/12/22 11/01/22 Rx (unknown) (no (unknown) (unknown) pets and animals: (units (unknown) date) Yes (horses) unknown) (unknown) (no (unknown) (unknown) polyhydramnios (units (unknown) date) unknown) (unknown) (no (unknown) (unknown) pounds weight (units ( unknown) date) gain (49) unknown) (unknown) (no (unknown) (unknown) ) (units (unkn own) date) unknown) (unknown) (no (unknown) (unknown) prenat.vits,alexey,m (units (unknown) date) [id number]-jxgrs 1 unknown) tab PO DAILY 04/22/22 11/01/22 History (unknown) (no (unknown) (unknown) really like to (units (unknown) date) meet w/ IBCLC unknown) prior to delivery and would like Rx for hospital (unknown) (no (unknown) (unknown) seatbelt use: (units ( unknown) date) always unknown) (unknown) (no (unknown) (unknown) second hand (units (un known) date) exposure: No unknown) (unknown) (no (unknown) (unknown) severe (units (unkno wn) date) polyhydramnios; unknown) laryngomalacia (unknown) (no (unknown) (unknown) special [place] (units ( unknown) date) needs: No unknown) (unknown) (no (unknown) (unknown) substance use (units ( unknown) date) type: marijuana unknown) (in the past, not recently and not while (unknown) (no (unknown) (unknown) tablet vomiting (units (unknown) date) #20 tabs unknown) (unknown) (no (unknown) (unknown) tabs (units (unkno wn) date) unknown) (unknown) (no (unknown) (unknown) term [place] (units ( unknown) date) [place] unknown) (unknown) (no (unknown) (unknown) water heater temp (units (unknown) date) set < 120 deg: Yes unknown) (unknown) (no (unknown) (unknown) well-balanced (units ( unknown) date) diet: daily or unknown) most days (unknown) (no (unknown) (unknown) working smoke (units ( unknown) date) detector in home: unknown) Yes Result panel 176 (unknown) (no (unknown) (unknown) (no value) (units (unk nown) date) unknown) (unknown) (no (unknown) (unknown) -: Chlamydia (units (u nknown) date) screen: negative, unknown) Gonorrhea screen: negative and Urine: negative (unknown) (no (unknown) (unknown) -: Urine: (units (unkn own) date) negative unknown) (unknown) (no (unknown) (unknown) 11/24/22 11/24/22 (units (unknown) date) 11/24/22 unknown) (unknown) (no (unknown) (unknown) 11/24/22 06:26 (units (unknown) date) unknown) (unknown) (no (unknown) (unknown) 11/24/22 0857 (units ( unknown) date) unknown) (unknown) (no (unknown) (unknown) 01/24/14 41 17 7 (units (unknown) date) lb 1 oz Female unknown) live - full t (unknown) (no (unknown) (unknown) 02/19/21 39 7 lb (units (unknown) date) 12 oz Female live unknown) - full term (unknown) (no (unknown) (unknown) 06:25 06:26 06:26 (units (unknown) date) unknown) (unknown) (no (unknown) (unknown) 06/16/15 38 7 lb (units (unknown) date) 13 oz Male unknown) live - full (unknown) (no (unknown) (unknown) 10/18/21 8 (units (unk nown) date) spontaneous unknown) (unknown) (no (unknown) (unknown) 14:21 (units (unkno wn) date) unknown) (unknown) (no (unknown) (unknown) 32-year-old (units (un known) date) 5 para 3 unknown) at 39-,1/7 weeks gestation with 3 prior (unknown) (no (unknown) (unknown) :21 (units (unkno wn) date) unknown) (unknown) (no (unknown) (unknown) ADHD (units (unkno wn) date) unknown) (unknown) (no (unknown) (unknown) Age/Sex: 32 / F (units (unknown) date) unknown) (unknown) (no (unknown) (unknown) Alcoholism (units (unk nown) date) unknown) (unknown) (no (unknown) (unknown) Allergies (units (unkn own) date) unknown) (unknown) (no (unknown) (unknown) Allergy/AdvReac (units (unknown) date) Type Severity unknown) Reaction Status Date / Time (unknown) (no (unknown) (unknown) Anesthesia (units (unk nown) date) unknown) (unknown) (no (unknown) (unknown) Antibody Screen (units (unknown) date) Negative 11/24/22 unknown) 06:26 (unknown) (no (unknown) (unknown) Antibody Screen (units (unknown) date) Negative unknown) (unknown) (no (unknown) (unknown) Assessment and (units (unknown) date) Plan narrative: unknown) (unknown) (no (unknown) (unknown) Assessment and (units (unknown) date) Plan unknown) (unknown) (no (unknown) (unknown) Assessment: (units (un known) date) unknown) (unknown) (no (unknown) (unknown) Baseline (units (unknown) date) heart rate: 135 unknown) (unknown) (no (unknown) (unknown) Baso # (Auto) 100 (units (unknown) date) unknown) (unknown) (no (unknown) (unknown) Baso % (Auto) 1.0 (units (unknown) date) unknown) (unknown) (no (unknown) (unknown) Yonis 2 months (units (unknown) date) post-dates unknown) induction (unknown) (no (unknown) (unknown) Blood Type A (units (u nknown) date) Positive 11/24/22 unknown) 06:26 (unknown) (no (unknown) (unknown) Blood Type A (units (u nknown) date) Positive unknown) (unknown) (no (unknown) (unknown) Breastfeed Preg (units (unknown) date) Comp Name unknown) (unknown) (no (unknown) (unknown) Cardiovascular: (units (unknown) date) Regular rate and unknown) rhythm (unknown) (no (unknown) (unknown) 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) unknown) (unknown) (no (unknown) (unknown) Chief complaint: (units (unknown) date) INPT unknown) (unknown) (no (unknown) (unknown) Current Estimate (units (unknown) date) 11/30/22 LMP unknown) (Certain) 39w 1d (unknown) (no (unknown) (unknown) : 1990 (units (unknown) date) Acct:[id number] unknown) (unknown) (no (unknown) (unknown) Date Patient (units (u nknown) date) Seen: 11/24/22 unknown) (unknown) (no (unknown) (unknown) Date of Service: (units (unknown) date) 11/24/22 unknown) (unknown) (no (unknown) (unknown) Date of (units (unkno wn) date) admission: unknown) 11/24/22 (unknown) (no (unknown) (unknown) Date/Time (units (unkn own) date) unknown) (unknown) (no (unknown) (unknown) Dating criteria (units (unknown) date) OB: LMP confirmed unknown) by 1st trimester US (unknown) (no (unknown) (unknown) Daughter Juvenile (units (unknown) date) arthritis unknown) (unknown) (no (unknown) (unknown) Del. Date (units (unkn own) date) GA/Weeks Labor unknown) Lgth Wt Sex Route Outcome Anesthesia Place (unknown) (no (unknown) (unknown) Delivery Date: (units (unknown) date) 02/19/21 Last unknown) Updated by: Susi Petersen RN (unknown) (no (unknown) (unknown) Delivery Date: (units (unknown) date) 06/16/15 Last unknown) Updated by: Susi Petersen RN (unknown) (no (unknown) (unknown) Delv (units (unkno wn) date) unknown) (unknown) (no (unknown) (unknown) Depression (units (unk nown) date) (-1999) unknown) (unknown) (no (unknown) (unknown) ECTOR Calculator (units (unknown) date) unknown) (unknown) (no (unknown) (unknown) Eos # (Auto) 100 (units (unknown) date) unknown) (unknown) (no (unknown) (unknown) Eos % (Auto) 2.0 (units (unknown) date) unknown) (unknown) (no (unknown) (unknown) Estimated (units (unkn own) date) Delivery Date unknown) Method Current (unknown) (no (unknown) (unknown) Estimated (units (unkn own) date) Gestational Age unknown) (weeks): 39+1 (unknown) (no (unknown) (unknown) Estimated (units (unknown) date) weight: 8 lb unknown) (unknown) (no (unknown) (unknown) Evaluation (units (unk nown) date) unknown) (unknown) (no (unknown) (unknown) Exam Narrative: (units (unknown) date) unknown) (unknown) (no (unknown) (unknown) External Labs (units ( unknown) date) unknown) (unknown) (no (unknown) (unknown) Extremities: 1+ (units (unknown) date) edema unknown) (unknown) (no (unknown) (unknown) Family History (units (unknown) date) (Updated 06/08/22 unknown) @ 21:23 by Aurora Arevalo) (unknown) (no (unknown) (unknown) Father Diabetes (units (unknown) date) mellitus unknown) (unknown) (no (unknown) (unknown) Monitor (units ( unknown) date) Decelerations: unknown) Absent (unknown) (no (unknown) (unknown) Status: (units ( unknown) date) Category l unknown) (unknown) (no (unknown) (unknown) monitor (units ( unknown) date) accelerations: unknown) Present (unknown) (no (unknown) (unknown) Foot pain () (units (unknown) date) unknown) (unknown) (no (unknown) (unknown) Fundal height: 42 (units (unknown) date) cm unknown) (unknown) (no (unknown) (unknown) Generally: (units (unk nown) date) Patient is sitting unknown) up in bed, no acute distress (unknown) (no (unknown) (unknown) Genetic Screens: (units (unknown) date) Cell-free DNA: unknown) Normal (unknown) (no (unknown) (unknown) Glucose 1 Hour 88 (units (unknown) date) mg/dL (76-139) unknown) 08/22/22 11:15 (unknown) (no (unknown) (unknown) : 5 (units (unk nown) date) unknown) (unknown) (no (unknown) (unknown) Group B (units (unkno wn) date) Streptococcus unknown) (PCR) Neg for grp b strep 11/01/22 12:22 (unknown) (no (unknown) (unknown) Hct 32.7 L (units (unk nown) date) unknown) (unknown) (no (unknown) (unknown) Heavy menstrual (units (unknown) date) period (-2020) unknown) (unknown) (no (unknown) (unknown) Hematocrit 32.7 % (units (unknown) date) (36-46) L 11/24/22 unknown) 06:26 (unknown) (no (unknown) (unknown) Hemoglobin 10.9 (units (unknown) date) g/dL (12.0-16.0) L unknown) 11/24/22 06:26 (unknown) (no (unknown) (unknown) Hepatitis B (units (un known) date) Surface Antigen unknown) Negative s/c (NEGATIVE) 05/13/22 14 (unknown) (no (unknown) (unknown) Hepatitis C (units (un known) date) Antibody Negative unknown) s/c (NEGATIVE) 05/13/22 14:21 (unknown) (no (unknown) (unknown) Hgb 10.9 L (units (unk nown) date) unknown) (unknown) (no (unknown) (unknown) History of (units (unk nown) date) Present Condition unknown) (unknown) (no (unknown) (unknown) History of (units (unk n) date) polyhydramnios unknown) (unknown) (no (unknown) (unknown) History of (units (unk nown) date) surgery unknown) (unknown) (no (unknown) (unknown) Home Medications (units (unknown) date) and Allergies unknown) (unknown) (no (unknown) (unknown) Home Medications (units (unknown) date) unknown) (unknown) (no (unknown) (unknown) [facility] (units (unknown) date) [address] unknown) [place] [address] (unknown) (no (unknown) (unknown) Laboratory (units (unk nown) date) Results - last 24 unknown) hr (unknown) (no (unknown) (unknown) Labs (units (unkno wn) date) unknown) (unknown) (no (unknown) (unknown) Labs: (units (unkno wn) date) unknown) (unknown) (no (unknown) (unknown) Last OB Lab (units (un known) date) Results: unknown) (unknown) (no (unknown) (unknown) Lungs: Clear to (units (unknown) date) auscultation unknown) bilaterally (unknown) (no (unknown) (unknown) Lymph # (Auto) (units (unknown) date) 2000 unknown) (unknown) (no (unknown) (unknown) Lymph % (Auto) (units (unknown) date) 29.1 unknown) (unknown) (no (unknown) (unknown) [id number] (units (unk nown) date) unknown) (unknown) (no (unknown) (unknown) MCH 26.7 (units (unkno wn) date) unknown) (unknown) (no (unknown) (unknown) MCHC 33.3 (units (unkn own) date) unknown) (unknown) (no (unknown) (unknown) MCV 80.1 (units (unkno wn) date) unknown) (unknown) (no (unknown) (unknown) Medical History (units (unknown) date) (Updated 11/15/22 unknown) @ 11:51 by Glen Ojeda MD) (unknown) (no (unknown) (unknown) Medical (units (unkno wn) date) complications OB: unknown) other (obesity) (unknown) (no (unknown) (unknown) Medication (units (unk nown) date) Instructions unknown) Recorded Confirmed Type (unknown) (no (unknown) (unknown) Meds (units (unkno wn) date) unknown) (unknown) (no (unknown) (unknown) Mental health (units ( unknown) date) problem unknown) (unknown) (no (unknown) (unknown) Levy # (Auto) 600 (units (unknown) date) unknown) (unknown) (no (unknown) (unknown) Levy % (Auto) 8.2 (units (unknown) date) unknown) (unknown) (no (unknown) (unknown) Mother Depression (units (unknown) date) unknown) (unknown) (no (unknown) (unknown) Narrative (units (unkn own) date) unknown) (unknown) (no (unknown) (unknown) Nearsightedness (units (unknown) date) unknown) (unknown) (no (unknown) (unknown) Neut # (Auto) (units ( unknown) date) 4200 unknown) (unknown) (no (unknown) (unknown) Neut % (Auto) (units ( unknown) date) 59.7 unknown) (unknown) (no (unknown) (unknown) OB Exam (units (unkno wn) date) unknown) (unknown) (no (unknown) (unknown) OB HPI (units (unkno wn) date) unknown) (unknown) (no (unknown) (unknown) 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 + (units (unknown) date) Physical unknown) (unknown) (no (unknown) (unknown) Objective (units (unkn own) date) unknown) (unknown) (no (unknown) (unknown) Obstetrical (units (un known) date) complications: unknown) none (unknown) (no (unknown) (unknown) PFSH (units (unkno wn) date) unknown) (unknown) (no (unknown) (unknown) PTSD (units (unkno wn) date) (post-traumatic unknown) stress disorder) (-1999) (unknown) (no (unknown) (unknown) Painful menstrual (units (unknown) date) periods (-2019) unknown) (unknown) (no (unknown) (unknown) Para: 3 (units (unkno wn) date) unknown) (unknown) (no (unknown) (unknown) Past Pregnancies (units (unknown) date) unknown) (unknown) (no (unknown) (unknown) Patient has (units (un known) date) decided against unknown) bilateral salpingectomy (unknown) (no (unknown) (unknown) Patient: White (units (unknown) date) Brittany Lindquist MR#: unknown) (unknown) (no (unknown) (unknown) Plan: (units (unkno wn) date) unknown) (unknown) (no (unknown) (unknown) Plt Count 245 (units ( unknown) date) unknown) (unknown) (no (unknown) (unknown) Polyhydramnios (units (unknown) date) unknown) (unknown) (no (unknown) (unknown) (units (unk nown) date) depression unknown) (unknown) (no (unknown) (unknown) Preadmission Labs (units (unknown) date) unknown) (unknown) (no (unknown) (unknown) care: (units (unknown) date) good care, unknown) initiated at week # (11), number of visits (9) and (unknown) (no (unknown) (unknown) Previous (units (unknown) date) section unknown) (unknown) (no (unknown) (unknown) Prior (units (unkno wn) date) (ies) unknown) (unknown) (no (unknown) (unknown) [place] (units (unk nown) date) [place] 4 unknown) (unknown) (no (unknown) (unknown) Provider: (units (unkn own) date) Josefina Baumann unknown) (unknown) (no (unknown) (unknown) RBC 4.08 (units (unkno wn) date) unknown) (unknown) (no (unknown) (unknown) RDW 16.0 H (units (unk nown) date) unknown) (unknown) (no (unknown) (unknown) RPR Titer (units (unkn own) date) Additional Testing unknown) see below 05/13/22 14:21 (unknown) (no (unknown) (unknown) Repeat (units (unkno wn) date) low-transverse unknown) section (unknown) (no (unknown) (unknown) 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 unknown) (unknown) (no (unknown) (unknown) Result Diagrams: (units (unknown) date) unknown) (unknown) (no (unknown) (unknown) Rubella Antibody (units (unknown) date) 12.0 IU/mL (>15) L unknown) 05/13/22 14:21 (unknown) (no (unknown) (unknown) Rx (units (unkno wn) date) unknown) (unknown) (no (unknown) (unknown) SARS-CoV-2 (PCR) (units (unknown) date) Negative unknown) (unknown) (no (unknown) (unknown) Signed (units (unkno wn) date) By:<Electronically unknown) signed by Josefina Baumann MD> (unknown) (no (unknown) (unknown) Smoking Status: (units (unknown) date) Former smoker unknown) (unknown) (no (unknown) (unknown) Social History (units (unknown) date) unknown) (unknown) (no (unknown) (unknown) Son Hearing loss (units (unknown) date) unknown) (unknown) (no (unknown) (unknown) Surgical History (units (unknown) date) (Updated 07/12/22 unknown) @ 15:10 by Josefina Baumann MD) (unknown) (no (unknown) (unknown) The risks, (units (unk nown) date) benefits, and unknown) alternatives to the procedure were explained to the (unknown) (no (unknown) (unknown) Time Patient (units (u nknown) date) Seen: 08:30 unknown) (unknown) (no (unknown) (unknown) Time Spent with (units (unknown) date) Patient unknown) (unknown) (no (unknown) (unknown) Total time spent (units (unknown) date) with greater than unknown) 50% in coordination of care (as documented) (unknown) (no (unknown) (unknown) Type(s) of (units (unk nown) date) exercise: walking unknown) (unknown) (no (unknown) (unknown) Ultrasounds: (units (u nknown) date) normal 1st unknown) trimester US and normal mid trimester US (unknown) (no (unknown) (unknown) Variability: (units (u nknown) date) Moderate (11-25) unknown) (unknown) (no (unknown) (unknown) Varicella-Zoster (units (unknown) date) IgG Antibody 742 unknown) index (Immune >165) 05/13/22 (unknown) (no (unknown) (unknown) WBC 7.0 (units (unkno wn) date) unknown) (unknown) (no (unknown) (unknown) WG (units (unkno wn) date) unknown) (unknown) (no (unknown) (unknown) [place] teeth (units (u nknown) date) extracted unknown) (unknown) (no (unknown) (unknown) [Embedded Image (units (unknown) date) Not Available] unknown) (unknown) (no (unknown) (unknown) additional social (units (unknown) date) history: unknown) Difficulty other children. Would (unknown) (no (unknown) (unknown) alcohol intake: (units (unknown) date) former unknown) (unknown) (no (unknown) (unknown) at patient's (units (u nknown) date) floor/unit and/or unknown) counseling patient:: 15-24 minutes (unknown) (no (unknown) (unknown) attempted, unable (units (unknown) date) other [place] unknown) (unknown) (no (unknown) (unknown) azithromycin 250 (units (unknown) date) mg tablet See Rx unknown) Instructions PO .COMPLEX #6 10/07/22 11/01/22 (unknown) (no (unknown) (unknown) caffeine: Yes (units ( unknown) date) (soft drinks in unknown) small quantities, well within 200mg limit) (unknown) (no (unknown) (unknown) carbon monox (units (u nknown) date) detector in home: unknown) Yes (unknown) (no (unknown) (unknown) current (units (unkno wn) date) occupational unknown) exposures/hazards: Yes (unknown) (no (unknown) (unknown) daily servings (units (unknown) date) fruits/ve or unknown) more times/day (unknown) (no (unknown) (unknown) delivery. (units (unkn own) date) unknown) (unknown) (no (unknown) (unknown) do you feel safe (units (unknown) date) at home: Yes unknown) (unknown) (no (unknown) (unknown) double electric (units (unknown) date) breast pump 1 ea unknown) topical .prn #1 ea 11/01/22 Rx (unknown) (no (unknown) (unknown) during the past (units (unknown) date) year weight has: unknown) other (wide fluctuations since last ) (unknown) (no (unknown) (unknown) education level: (units (unknown) date) vocational (some unknown) college, certificate programs) (unknown) (no (unknown) (unknown) erm [place] (units (u nknown) date) unknown) (unknown) (no (unknown) (unknown) failure to (units (unk nown) date) progress [place] unknown) (unknown) (no (unknown) (unknown) fire extinguisher (units (unknown) date) in home: Yes unknown) (unknown) (no (unknown) (unknown) firearms in home: (units (unknown) date) Yes firearms unknown) unloaded and locked: Yes (unknown) (no (unknown) (unknown) flaxseed Allergy (units (unknown) date) Severe Anaphylaxis unknown) Verified 11/01/22 11:31 (unknown) (no (unknown) (unknown) grade breast pump (units (unknown) date) that she can have unknown) when she goes home from hospital after (unknown) (no (unknown) (unknown) household (units (unkn own) date) members: spouse, unknown) family ([id number] and his 3 children (moving (unknown) (no (unknown) (unknown) housing: house (units (unknown) date) unknown) (unknown) (no (unknown) (unknown) hydroxyzine HCl 25 (units (unknown) date) mg tablet 25 mg PO unknown) TID PRN anxiety #20 tabs 09/16/22 11/01/22 (unknown) (no (unknown) (unknown) levothyroxine 137 (units (unknown) date) mcg tablet 137 mcg unknown) PO DAILY #30 tabs 10/17/22 11/01/22 Rx (unknown) (no (unknown) (unknown) lives (units (unkno wn) date) independently: Yes unknown) (unknown) (no (unknown) (unknown) magnesium 200 mg (units (unknown) date) tablet 200 mg PO unknown) DAILY 05/03/22 11/01/22 History (unknown) (no (unknown) (unknown) marital status: (units (unknown) date) unknown) (unknown) (no (unknown) (unknown) months other Iyla (units (unknown) date) unknown) (unknown) (no (unknown) (unknown) number of (units (unkn own) date) children: 3 unknown) (unknown) (no (unknown) (unknown) occupational (units (u nknown) date) status: unemployed unknown) and previously employed (unknown) (no (unknown) (unknown) ondansetron 4 mg (units (unknown) date) disintegrating 4 unknown) mg PO Q6H PRN nausea and 05/17/22 11/01/22 Rx (unknown) (no (unknown) (unknown) or ureters. She (units (unknown) date) understands these unknown) risks and agrees to proceed. A full par Q (unknown) (no (unknown) (unknown) out soon)) and (units (unknown) date) children unknown) (unknown) (no (unknown) (unknown) oxycodone 5 mg (units (unknown) date) tablet 5 mg PO Q6H unknown) PRN pain #10 tabs 10/12/22 11/01/22 Rx (unknown) (no (unknown) (unknown) patient. The (units (u nknown) date) risks including unknown) bleeding, infection, injury to the bowel, bladder, (unknown) (no (unknown) (unknown) pets and animals: (units (unknown) date) Yes (horses) unknown) (unknown) (no (unknown) (unknown) polyhydramnios (units (unknown) date) unknown) (unknown) (no (unknown) (unknown) pounds weight (units ( unknown) date) gain (49) unknown) (unknown) (no (unknown) (unknown) ) (units (unkn own) date) unknown) (unknown) (no (unknown) (unknown) prenat.vits,alexey,m (units (unknown) date) st-jxpt-tezdi 1 unknown) tab PO DAILY 04/22/22 11/01/22 History (unknown) (no (unknown) (unknown) really like to (units (unknown) date) meet w/ IBCLC unknown) prior to delivery and would like Rx for hospital (unknown) (no (unknown) (unknown) seatbelt use: (units ( unknown) date) always unknown) (unknown) (no (unknown) (unknown) second hand (units (un known) date) exposure: No unknown) (unknown) (no (unknown) (unknown) sections (units (unkno wn) date) unknown) (unknown) (no (unknown) (unknown) severe (units (unkno wn) date) polyhydramnios; unknown) laryngomalacia (unknown) (no (unknown) (unknown) special [place] (units ( unknown) date) needs: No unknown) (unknown) (no (unknown) (unknown) substance use (units ( unknown) date) type: marijuana unknown) (in the past, not recently and not while (unknown) (no (unknown) (unknown) tablet vomiting (units (unknown) date) #20 tabs unknown) (unknown) (no (unknown) (unknown) tabs (units (unkno wn) date) unknown) (unknown) (no (unknown) (unknown) term [place] (units ( unknown) date) [place] unknown) (unknown) (no (unknown) (unknown) was held and (units (u nknown) date) consent form was unknown) signed. (unknown) (no (unknown) (unknown) water heater temp (units (unknown) date) set < 120 deg: Yes unknown) (unknown) (no (unknown) (unknown) well-balanced (units ( unknown) date) diet: daily or unknown) most days (unknown) (no (unknown) (unknown) working smoke (units ( unknown) date) detector in home: unknown) Yes Result panel 177 (unknown) (no (unknown) (unknown) (no value) (units (unk nown) date) unknown) (unknown) (no (unknown) (unknown) 11/24/22 0858 (units ( unknown) date) unknown) (unknown) (no (unknown) (unknown) Age/Sex: 32 / F (units (unknown) date) unknown) (unknown) (no (unknown) (unknown) COVID-19 (units (unkno wn) date) status: Negative unknown) (unknown) (no (unknown) (unknown) COVID-19 (units (unkno wn) date) unknown) (unknown) (no (unknown) (unknown) Changes to H+P: (units (unknown) date) No unknown) (unknown) (no (unknown) (unknown) Criteria for (units (u nknown) date) continued unknown) procedure: Non-surgical alternatives not available or (unknown) (no (unknown) (unknown) : 1990 (units (unknown) date) Acct:[id number] unknown) (unknown) (no (unknown) (unknown) Date of (units (unkno wn) date) Service: unknown) 11/24/22 (unknown) (no (unknown) (unknown) H+P completed (units ( unknown) date) within 30 days unknown) and has changed as indicated here:: 11/24/22 (unknown) (no (unknown) (unknown) History + (units (unkn own) date) Physical unknown) reviewed/Exam performed by Physician: Yes (unknown) (no (unknown) (unknown) Interval Note (units ( unknown) date) unknown) (unknown) (no (unknown) (unknown) [facility] (units (unknown) date) [address] unknown) [place] [address] (unknown) (no (unknown) (unknown) [id number] (units (unk nown) date) unknown) (unknown) (no (unknown) (unknown) Patient: White (units (unknown) date) Brittany Lindquist unknown) MR#: (unknown) (no (unknown) (unknown) Pre-operative (units ( unknown) date) Note unknown) (unknown) (no (unknown) (unknown) Provider: (units (unkn own) date) Josefina Baumann unknown) (unknown) (no (unknown) (unknown) Result (units (unkno wn) date) date/Date tested unknown) (Pos, Neg/Pending): 11/24/22 (unknown) (no (unknown) (unknown) Signed (units (unkno wn) date) By:<Electronical unknown) ly signed by Josefina Baumann MD> (unknown) (no (unknown) (unknown) appropriate per (units (unknown) date) current SOC unknown) Result panel 178 (unknown) (no (unknown) (unknown) (no value) (units (unk nown) date) unknown) (unknown) (no (unknown) (unknown) 1: (units (unkno wn) date) unknown) (unknown) (no (unknown) (unknown) 39-,1/7 weeks (units ( unknown) date) gestation unknown) (unknown) (no (unknown) (unknown) score (1 (units (unknown) date) min): 7 unknown) (unknown) (no (unknown) (unknown) score (5 (units (unknown) date) min): 9 unknown) (unknown) (no (unknown) (unknown) Aftercare: (units (unk nown) date) routine postop unknown) (unknown) (no (unknown) (unknown) Age/Sex: 32 / F (units (unknown) date) unknown) (unknown) (no (unknown) (unknown) Anesthesia Type: (units (unknown) date) Spinal (With unknown) Duramorph) (unknown) (no (unknown) (unknown) Applied: (units (unkno wn) date) Catheter (To unknown) continuous drainage) (unknown) (no (unknown) (unknown) Communications Lead: (units (unk n) date) Shirley Crystal unknown) (unknown) (no (unknown) (unknown) Blood products (units (unknown) date) transfused: none unknown) (unknown) (no (unknown) (unknown) Click Yes if (units (u nknown) date) Unassisted: No unknown) (unknown) (no (unknown) (unknown) Closure Type: (units ( unknown) date) primary unknown) (unknown) (no (unknown) (unknown) Complications: (units (unknown) date) none unknown) (unknown) (no (unknown) (unknown) Condition: (units (unk nown) date) stable unknown) (unknown) (no (unknown) (unknown) : 1990 (units (unknown) date) Acct:[id number] unknown) (unknown) (no (unknown) (unknown) Date of Service: (units (unknown) date) 11/24/22 unknown) (unknown) (no (unknown) (unknown) Date of (units (o wn) date) procedure: unknown) 11/24/22 (unknown) (no (unknown) (unknown) Disposition: (units (u nknown) date) PACU unknown) (unknown) (no (unknown) (unknown) Due to the (units (unk nown) date) patient's unknown) obesity, this required extra hands. She assisted with (unknown) (no (unknown) (unknown) Estimated Blood (units (unknown) date) Loss (mL): 350 unknown) (unknown) (no (unknown) (unknown) Cord (units (unk nown) date) Vessel unknown) Description: 3 Vessels (unknown) (no (unknown) (unknown) Position: (units (unknown) date) Right Occiput unknown) Anterior (unknown) (no (unknown) (unknown) (units (unkno wn) date) Presentation: unknown) vertex (unknown) (no (unknown) (unknown) Findings: (units (unkn own) date) unknown) (unknown) (no (unknown) (unknown) Indications: (units (u nknown) date) unknown) (unknown) (no (unknown) (unknown) Gender: (units (unknown) date) Female unknown) (unknown) (no (unknown) (unknown) Intraoperative (units (unknown) date) meds unknown) administered: Duramorph, Ketorolac and Pitocin (unknown) (no (unknown) (unknown) [facility] (units (unknown) date) [address] [place] [address] unknown) [place] [address] (unknown) (no (unknown) (unknown) Live female (units (un known) date) in the MYRTLE unknown) presentation (unknown) (no (unknown) (unknown) Lysis of (units (unkno wn) date) adhesions unknown) (unknown) (no (unknown) (unknown) [id number] (units (unk nown) date) unknown) (unknown) (no (unknown) (unknown) Morbid obesity (units (unknown) date) unknown) (unknown) (no (unknown) (unknown) Poth Baby (units (u nknown) date) unknown) (unknown) (no (unknown) (unknown) Normal tubes and (units (unknown) date) ovaries unknown) (unknown) (no (unknown) (unknown) Omental to (units (unk nown) date) anterior unknown) abdominal wall adhesions (unknown) (no (unknown) (unknown) Operative (units (unkn own) date) Date/Time/Diagnos unknown) es (unknown) (no (unknown) (unknown) Operative Note (units (unknown) date) unknown) (unknown) (no (unknown) (unknown) Operative Notes (units (unknown) date) unknown) (unknown) (no (unknown) (unknown) Patient: White (units (unknown) date) Brittany Lindquist MR#: unknown) (unknown) (no (unknown) (unknown) Pfannenstiel (units (u nknown) date) skin incision was unknown) made through the previous incision and carried (unknown) (no (unknown) (unknown) Placental (units (unkn own) date) Delivery unknown) Description: Expressed (unknown) (no (unknown) (unknown) Post-op (units (unkno wn) date) diagnosis: same unknown) (unknown) (no (unknown) (unknown) Post-operative (units (unknown) date) unknown) (unknown) (no (unknown) (unknown) Pre-op (units (unkno wn) date) diagnosis: 39-1/7 unknown) weeks gestation (unknown) (no (unknown) (unknown) Previous (units (unkno wn) date) section unknown) x3 (unknown) (no (unknown) (unknown) Procedure + (units (un known) date) Clinicians unknown) (unknown) (no (unknown) (unknown) Procedure in (units (u nknown) date) detail: unknown) (unknown) (no (unknown) (unknown) Procedure: (units (unk nown) date) unknown) (unknown) (no (unknown) (unknown) Provider: (units (unkn own) date) Josefina Baumann unknown) (unknown) (no (unknown) (unknown) Reason for (units (unk nown) date) Communications Lead: unknown) (unknown) (no (unknown) (unknown) Repeat (units (unkno wn) date) low-transverse unknown) section (unknown) (no (unknown) (unknown) Same procedure (units (unknown) date) as scheduled: Yes unknown) (unknown) (no (unknown) (unknown) Signed By: (units (unk nown) date) unknown) (unknown) (no (unknown) (unknown) Specimen(s): (units (u nknown) date) cord blood, cord unknown) pH and placenta (unknown) (no (unknown) (unknown) Surgeon: (units (unkno wn) date) Josefina Cervantesfritz unknown) (unknown) (no (unknown) (unknown) The refinery operator assistant (units ( unknown) date) was necessary to unknown) retract upon entry into the abdomen and uterus. (unknown) (no (unknown) (unknown) The bladder (units (un known) date) blade was unknown) reinserted. The lower uterine segment was incised in a (unknown) (no (unknown) (unknown) The patient (units (un known) date) tolerated the unknown) procedure well, and was taken to PACU in stable (unknown) (no (unknown) (unknown) The patient was (units (unknown) date) taken to the unknown) operating room where she was placed in the seated (unknown) (no (unknown) (unknown) The skin was (units (u nknown) date) closed with 4-0 unknown) Monocryl in a subcuticular fashion. Steri-Strips (unknown) (no (unknown) (unknown) Time of (units (unkno wn) date) procedure: 12:08 unknown) (unknown) (no (unknown) (unknown) Traxi drape was (units (unknown) date) placed. After unknown) spinal analgesia was found to be adequate, a (unknown) (no (unknown) (unknown) Vicryl in a (units (un known) date) running fashion. unknown) The subcutaneous layer was copiously irrigated (unknown) (no (unknown) (unknown) all clots and (units ( unknown) date) debris. The unknown) uterine incision was repaired with #1 chromic in a (unknown) (no (unknown) (unknown) and RT. The (units (un known) date) placenta was unknown) delivered by expression. The uterus was cleared of (unknown) (no (unknown) (unknown) and the incision (units (unknown) date) extended unknown) bilaterally with the Coffman scissors. The superior (unknown) (no (unknown) (unknown) anterior (units (unkno wn) date) abdominal wall unknown) adhesions were taken down with the Bovie. An Kartik was (unknown) (no (unknown) (unknown) aspect of the (units ( unknown) date) fascial incision unknown) was grasped with a Crocheron clamps, elevated, and (unknown) (no (unknown) (unknown) clots and (units (unkn own) date) debris. The unknown) Kartik was removed from the incision. The bladder flap (unknown) (no (unknown) (unknown) condition. (units (unk nown) date) unknown) (unknown) (no (unknown) (unknown) copious amount (units (unknown) date) of clear amniotic unknown) fluid (4700cc). The infant's head was (unknown) (no (unknown) (unknown) delivered with (units (unknown) date) vacuum unknown) assistance. The nose and mouth were suctioned with bulb (unknown) (no (unknown) (unknown) delivery of the (units (unknown) date) with unknown) fundal pressure. She assisted with closure with (unknown) (no (unknown) (unknown) dissected off (units ( unknown) date) sharply and unknown) bluntly. The rectus muscles were in the (unknown) (no (unknown) (unknown) double clamped (units (unknown) date) and cut after 1 unknown) minute. The infant was handed off to waiting RN (unknown) (no (unknown) (unknown) entered sharply (units (unknown) date) with the unknown) Metzenbaum scissors. This incision was extended (unknown) (no (unknown) (unknown) imbricating (units (un known) date) layer. A unknown) [id number] suture was placed on the right edge of the (unknown) (no (unknown) (unknown) incision due to (units (unknown) date) some oozing. unknown) Hemostasis was achieved. The tubes and ovaries (unknown) (no (unknown) (unknown) incision was (units (u nknown) date) extended unknown) bilaterally, and the bladder flap was created digitally. (unknown) (no (unknown) (unknown) midline. The (units (u nknown) date) peritoneum was unknown) identified, grasped between 2 hemostats, and (unknown) (no (unknown) (unknown) placed into the (units (unknown) date) incision. The unknown) vesicouterine peritoneum was identified, grasped (unknown) (no (unknown) (unknown) position. Spinal (units (unknown) date) anesthesia with unknown) Duramorph was administered. The patient was (unknown) (no (unknown) (unknown) prepped and (units (un known) date) draped in the unknown) usual sterile fashion. A timeout was performed. A (unknown) (no (unknown) (unknown) retraction and (units (unknown) date) clipping a unknown) suture. She closed the contralateral fascia. (unknown) (no (unknown) (unknown) running (units (unkno wn) date) interlocking unknown) fashion, and a second layer the same suture was used for an (unknown) (no (unknown) (unknown) small amount of (units (unknown) date) old blood. unknown) Sponge, lap, and instrument counts were correct x-2. (unknown) (no (unknown) (unknown) suction. The (units (u nknown) date) remainder of the unknown) body delivered without difficulty. The cord was (unknown) (no (unknown) (unknown) superiorly and (units (unknown) date) inferiorly with unknown) good visualization of the bladder. Omental to (unknown) (no (unknown) (unknown) the underlying (units (unknown) date) rectus muscles unknown) dissected off sharply and bluntly. Attention was (unknown) (no (unknown) (unknown) then placed in (units (unknown) date) the dorsal supine unknown) position with a leftward tilt. She was (unknown) (no (unknown) (unknown) then turned to (units (unknown) date) the inferior unknown) aspect of this incision which in a similar fashion (unknown) (no (unknown) (unknown) through to the (units (unknown) date) underlying layer unknown) fascia. The fascia was nicked in the midline, (unknown) (no (unknown) (unknown) to reapproximate (units (unknown) date) the deep unknown) subcutaneous layer. Five simple interrupted sutures (unknown) (no (unknown) (unknown) transverse (units (unk nown) date) fashion with the unknown) scalpel. Upon entering the amniotic sac there was a (unknown) (no (unknown) (unknown) was grasped with (units (unknown) date) a Crocheron clamps, unknown) elevated, and the underlying rectus muscles (unknown) (no (unknown) (unknown) was (units (unkno wn) date) reapproximated unknown) with 2-0 Vicryl. The fascia was reapproximated using 0 (unknown) (no (unknown) (unknown) were examined (units ( unknown) date) and were found to unknown) be normal. The gutters were cleared of all (unknown) (no (unknown) (unknown) were placed. An (units (unknown) date) Aquacel dressing unknown) was placed. The uterus was expressed of a (unknown) (no (unknown) (unknown) with 3-0 Vicryl (units (unknown) date) were placed to unknown) reapproximate the superficial subcutaneous layer. (unknown) (no (unknown) (unknown) with the pickup, (units (unknown) date) and entered unknown) sharply with the Metzenbaum scissors. This (unknown) (no (unknown) (unknown) with warm normal (units (unknown) date) saline. 5 simple unknown) interrupted sutures of 3-0 Vicryl were placed Result panel 179 (unknown) (no date) (unknown) (unknown) 26.2 % (unkn own) (unknown) (no date) (unknown) (unknown) 8.5 g/dl (unkn own) Result panel 180 (unknown) (no (unknown) (unknown) (no value) (units (unk nown) date) unknown) (unknown) (no (unknown) (unknown) 15mL blood (units (unk nown) date) slowly injected unknown) into the epidural space until pt reported mild low (unknown) (no (unknown) (unknown) 18g 5' Touhy (units (u nknown) date) inserted with unknown) clean BELINDA to saline at 9cm. (unknown) (no (unknown) (unknown) 3.5' 25g (units (unkno wn) date) Jasper was unknown) insufficient for the depth required to reach the (unknown) (no (unknown) (unknown) : [id number] (units (u nknown) date) unknown) (unknown) (no (unknown) (unknown) Age/Sex: 32 / F (units (unknown) date) unknown) (unknown) (no (unknown) (unknown) Blood drawn by (units (unknown) date) RN using sterile unknown) technique (chloroprep for placement, all hubs (unknown) (no (unknown) (unknown) : 1990 (units (unknown) date) Acct:[id number] unknown) (unknown) (no (unknown) (unknown) Date of Service: (units (unknown) date) 11/26/22 unknown) (unknown) (no (unknown) (unknown) EPIDURAL BLOOD (units (unknown) date) PATCH unknown) (unknown) (no (unknown) (unknown) General (units (unkno wn) date) unknown) (unknown) (no (unknown) (unknown) HPI: POD#2 (units (unk nown) date) CSection, c/o GUNN. unknown) Onset roughly 24h after surgery, rated 8/10 when (unknown) (no (unknown) (unknown) [facility] (units (unknown) date) [address] unknown) [place] [address] (unknown) (no (unknown) (unknown) Licocaine local (units (unknown) date) approx 2cc into unknown) tissue and skin wheal. (unknown) (no (unknown) (unknown) Patient: White (units (unknown) date) Brittany Lindquist C unknown) MR# (unknown) (no (unknown) (unknown) Procedure Note (units (unknown) date) unknown) (unknown) (no (unknown) (unknown) Procedure (units (unkn own) date) description: unknown) (unknown) (no (unknown) (unknown) Procedure: (units (unk nown) date) unknown) (unknown) (no (unknown) (unknown) Procedures (units (unk nown) date) unknown) (unknown) (no (unknown) (unknown) Provider: (units (unkn own) date) Alonzo Whitten unknown) D.O. (unknown) (no (unknown) (unknown) Pt positioned (units ( unknown) date) herself supine unknown) and was instructed to lay supine for 1 hour. (unknown) (no (unknown) (unknown) Pt seated, (units (unk nown) date) chloroprep, unknown) sterile drape. (unknown) (no (unknown) (unknown) Review of (units (unkn own) date) records revealed unknown) atraumatic SAB with 5' 22g Quinke, as the regular (unknown) (no (unknown) (unknown) Signed By: (units (unk nown) date) unknown) (unknown) (no (unknown) (unknown) Small needle (units (u nknown) date) suzi noted from 2 unknown) days ago roughly L3/4-4/5. (unknown) (no (unknown) (unknown) VS WNL (units (unkno wn) date) unknown) (unknown) (no (unknown) (unknown) auditory changes, (units (unknown) date) denies F/C/N/V, unknown) denies rash. No improvement with acetaminophen (unknown) (no (unknown) (unknown) back pain. (units (unk nown) date) unknown) (unknown) (no (unknown) (unknown) cleaned prior to (units (unknown) date) transfer to unknown) anesthesiologist) (unknown) (no (unknown) (unknown) intrathecal (units (un known) date) space. unknown) (unknown) (no (unknown) (unknown) or ibuprofen, (units ( unknown) date) fluids and unknown) caffeine. Pt reports history of PDPHA that resolved (unknown) (no (unknown) (unknown) upright walking (units (unknown) date) or sitting, and unknown) 0/10 when lying flat. No associated visual or (unknown) (no (unknown) (unknown) with epidural (units ( unknown) date) blood patch with unknown) previous CS. Result panel 181 (unknown) (no (unknown) (unknown) (no value) (units (unk nown) date) unknown) (unknown) (no (unknown) (unknown) 11/26/22 1752 (units ( unknown) date) unknown) (unknown) (no (unknown) (unknown) 15mL blood (units (unk nown) date) slowly injected unknown) into the epidural space until pt reported mild low (unknown) (no (unknown) (unknown) 18g 5' Touhy (units (u nknown) date) inserted with unknown) clean BELINDA to saline at 9cm. (unknown) (no (unknown) (unknown) 3.5' 25g (units (unkno wn) date) Jasper was unknown) insufficient for the depth required to reach the (unknown) (no (unknown) (unknown) : [id number] (units (u nknown) date) unknown) (unknown) (no (unknown) (unknown) After procedure, (units (unknown) date) pt reports mild unknown) low back pain, improving with 1000mg IV (unknown) (no (unknown) (unknown) Age/Sex: 32 / F (units (unknown) date) unknown) (unknown) (no (unknown) (unknown) Blood drawn by (units (unknown) date) RN using sterile unknown) technique (chloroprep for placement, all hubs (unknown) (no (unknown) (unknown) : 1990 (units (unknown) date) Acct:[id number] unknown) (unknown) (no (unknown) (unknown) Date of Service: (units (unknown) date) 11/26/22 unknown) (unknown) (no (unknown) (unknown) Date of (units (unkno wn) date) procedure: unknown) 11/26/22 (unknown) (no (unknown) (unknown) Date/Time (units (unkn own) date) unknown) (unknown) (no (unknown) (unknown) EPIDURAL BLOOD (units (unknown) date) PATCH unknown) (unknown) (no (unknown) (unknown) General (units (unkno wn) date) unknown) (unknown) (no (unknown) (unknown) HPI: POD#2 (units (unk nown) date) CSection, c/o GUNN. unknown) Onset roughly 24h after surgery, rated 8/10 when (unknown) (no (unknown) (unknown) [facility] (units (unknown) date) [address] unknown) [place] [address] (unknown) (no (unknown) (unknown) Licocaine local (units (unknown) date) approx 2cc into unknown) tissue and skin wheal. (unknown) (no (unknown) (unknown) Patient: White (units (unknown) date) Brittany Lindquist C unknown) MR# (unknown) (no (unknown) (unknown) Procedure Note (units (unknown) date) unknown) (unknown) (no (unknown) (unknown) Procedure (units (unkn own) date) description: unknown) (unknown) (no (unknown) (unknown) Procedure: (units (unk nown) date) unknown) (unknown) (no (unknown) (unknown) Procedures (units (unk nown) date) unknown) (unknown) (no (unknown) (unknown) Provider: (units (unkn own) date) Alonzo Whitten unknown) D.O. (unknown) (no (unknown) (unknown) Pt positioned (units ( unknown) date) herself supine unknown) and was instructed to lay supine for 1 hour. (unknown) (no (unknown) (unknown) Pt seated, (units (unk nown) date) chloroprep, unknown) sterile drape. (unknown) (no (unknown) (unknown) Review of (units (unkn own) date) records revealed unknown) atraumatic SAB with 5' 22g Quinke, as the regular (unknown) (no (unknown) (unknown) Signed (units (unkno wn) date) By:<Electronicall unknown) y signed by Jaycob NorrisO.> (unknown) (no (unknown) (unknown) Small needle (units (u nknown) date) suzi noted from 2 unknown) days ago roughly L3/4-4/5. (unknown) (no (unknown) (unknown) Time of (units (unkno wn) date) procedure: 16:30 unknown) (unknown) (no (unknown) (unknown) VS WNL (units (unkno wn) date) unknown) (unknown) (no (unknown) (unknown) acetaminophen, (units (unknown) date) and improved GUNN. unknown) VSS. (unknown) (no (unknown) (unknown) auditory changes, (units (unknown) date) denies F/C/N/V, unknown) denies rash. No improvement with acetaminophen (unknown) (no (unknown) (unknown) back pain. (units (unk nown) date) unknown) (unknown) (no (unknown) (unknown) cleaned prior to (units (unknown) date) transfer to unknown) anesthesiologist) (unknown) (no (unknown) (unknown) d/c home with (units (u nknown) date) limited activity unknown) x 24h, no lifting > 10lbs. f/u precautions with (unknown) (no (unknown) (unknown) intrathecal (units (un known) date) space. unknown) (unknown) (no (unknown) (unknown) or ibuprofen, (units ( unknown) date) fluids and unknown) caffeine. Pt reports history of PDPHA that resolved (unknown) (no (unknown) (unknown) upright walking (units (unknown) date) or sitting, and unknown) 0/10 when lying flat. No associated visual or (unknown) (no (unknown) (unknown) with epidural (units ( unknown) date) blood patch with unknown) previous CS. (unknown) (no (unknown) (unknown) worsening pain, (units (unknown) date) fever, chills unknown) Result panel 182 (unknown) (no (unknown) (unknown) (no value) (units (unk nown) date) unknown) (unknown) (no (unknown) (unknown) 11/28/22 (units (unkno wn) date) unknown) (unknown) (no (unknown) (unknown) 32y s/p (units (u nknown) date) csx4, c/b concern unknown) for low amniotic fluid, hypothyroid on 137 (100 (unknown) (no (unknown) (unknown) : [id number] (units (u nknown) date) unknown) (unknown) (no (unknown) (unknown) ADHD (units (unkno wn) date) unknown) (unknown) (no (unknown) (unknown) Additional Social (units (unknown) date) History unknown) (unknown) (no (unknown) (unknown) Age/Sex: 32 / F (units (unknown) date) Date of Service: unknown) (unknown) (no (unknown) (unknown) Alcoholism (units (unk nown) date) unknown) (unknown) (no (unknown) (unknown) Allergies (units (unkn own) date) unknown) (unknown) (no (unknown) (unknown) [place] (units ( unknown) date) [id number] unknown) (unknown) (no (unknown) (unknown) Anaphylaxis (units (un known) date) unknown) (unknown) (no (unknown) (unknown) Anesthesia (units (unk nown) date) unknown) (unknown) (no (unknown) (unknown) Attending Dr: (units ( unknown) date) Luisana Santos DKayeOKaye unknown) (unknown) (no (unknown) (unknown) Carpal tunnel (units ( unknown) date) syndrome () unknown) (unknown) (no (unknown) (unknown) Chief Complaint (units (unknown) date) unknown) (unknown) (no (unknown) (unknown) Chief Complaint: (units (unknown) date) /pump unknown) ing concerns (unknown) (no (unknown) (unknown) : 1990 (units (unknown) date) Acct:[id number] unknown) (unknown) (no (unknown) (unknown) Daughter Juvenile (units (unknown) date) arthritis unknown) (unknown) (no (unknown) (unknown) Depression (units (unk nown) date) (-1999) unknown) (unknown) (no (unknown) (unknown) Dept at (units (unkno wn) date) . unknown) (unknown) (no (unknown) (unknown) Details: (units (unkno wn) date) unknown) (unknown) (no (unknown) (unknown) Diet and Exercise (units (unknown) date) unknown) (unknown) (no (unknown) (unknown) Documented By: (units (unknown) date) Luisana Santos D.O. unknown) 11/28/22 0933 (unknown) (no (unknown) (unknown) Draft (units (unkno wn) date) unknown) (unknown) (no (unknown) (unknown) Family History (units (unknown) date) (Updated 06/08/22 unknown) @ 21:23 by Aurora Arevalo) (unknown) (no (unknown) (unknown) Family Practice (units (unknown) date) Office Visit unknown) (unknown) (no (unknown) (unknown) Father Diabetes (units (unknown) date) mellitus unknown) (unknown) (no (unknown) (unknown) [facility] (units (unknown) date) [facility] unknown) (unknown) (no (unknown) (unknown) Foot pain () (units (unknown) date) unknown) (unknown) (no (unknown) (unknown) HPI (units (unkno wn) date) unknown) (unknown) (no (unknown) (unknown) Heavy menstrual (units (unknown) date) period () unknown) (unknown) (no (unknown) (unknown) History of (units (unk nown) date) polyhydramnios unknown) (unknown) (no (unknown) (unknown) History of (units (unk nown) date) surgery unknown) (unknown) (no (unknown) (unknown) Intake (units (unkno wn) date) unknown) (unknown) (no (unknown) (unknown) Loc: [facility] (units (unkno wn) date) unknown) (unknown) (no (unknown) (unknown) Medical History (units (unknown) date) (Updated 11/15/22 unknown) @ 11:51 by Glen Ojeda MD) (unknown) (no (unknown) (unknown) Mental health (units ( unknown) date) problem unknown) (unknown) (no (unknown) (unknown) Mother Depression (units (unknown) date) unknown) (unknown) (no (unknown) (unknown) Nearsightedness (units (unknown) date) unknown) (unknown) (no (unknown) (unknown) PFSH (units (unkno wn) date) unknown) (unknown) (no (unknown) (unknown) PTSD (units (unkno wn) date) (post-traumatic unknown) stress disorder) (-1999) (unknown) (no (unknown) (unknown) Painful menstrual (units (unknown) date) periods () unknown) (unknown) (no (unknown) (unknown) Patient: White (units (unknown) date) Brittany Lindquist MR# unknown) (unknown) (no (unknown) (unknown) Polyhydramnios (units (unknown) date) unknown) (unknown) (no (unknown) (unknown) (units (unk nown) date) depression unknown) (unknown) (no (unknown) (unknown) Previous (units (unknown) date) section unknown) (unknown) (no (unknown) (unknown) Reason For Visit (units (unknown) date) unknown) (unknown) (no (unknown) (unknown) 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 unknown) (unknown) (no (unknown) (unknown) Safety (units (unkno wn) date) unknown) (unknown) (no (unknown) (unknown) Signed By: (units (unk nown) date) unknown) (unknown) (no (unknown) (unknown) Smoking Status: (units (unknown) date) Former smoker unknown) (unknown) (no (unknown) (unknown) Social History (units (unknown) date) unknown) (unknown) (no (unknown) (unknown) Son Hearing loss (units (unknown) date) unknown) (unknown) (no (unknown) (unknown) Surgical History (units (unknown) date) (Updated 07/12/22 unknown) @ 15:10 by Josefina Baumann MD) (unknown) (no (unknown) (unknown) This note may (units ( unknown) date) have been all or unknown) partially generated using voice recognition (unknown) (no (unknown) (unknown) Tobacco + (units (unkn own) date) Substance Use unknown) (unknown) (no (unknown) (unknown) Tobacco Status (units (unknown) date) unknown) (unknown) (no (unknown) (unknown) Type(s) of (units (unk nown) date) exercise: walking unknown) (unknown) (no (unknown) (unknown) Visit Reasons: (units (unknown) date) frenotomy unknown) assessment (unknown) (no (unknown) (unknown) [place] teeth (units (u nknown) date) extracted unknown) (unknown) (no (unknown) (unknown) additional social (units (unknown) date) history: unknown) Difficulty other children. Would (unknown) (no (unknown) (unknown) alcohol intake: (units (unknown) date) former unknown) (unknown) (no (unknown) (unknown) caffeine: Yes (units ( unknown) date) (soft drinks in unknown) small quantities, well within 200mg limit) (unknown) (no (unknown) (unknown) carbon monox (units (u nknown) date) detector in home: unknown) Yes (unknown) (no (unknown) (unknown) current (units (unkno wn) date) occupational unknown) exposures/hazards: Yes (unknown) (no (unknown) (unknown) daily servings (units (unknown) date) fruits/ve or unknown) more times/day (unknown) (no (unknown) (unknown) delivery. (units (unkn own) date) unknown) (unknown) (no (unknown) (unknown) do you feel safe (units (unknown) date) at home: Yes unknown) (unknown) (no (unknown) (unknown) during the past (units (unknown) date) year weight has: unknown) other (wide fluctuations since last ) (unknown) (no (unknown) (unknown) education level: (units (unknown) date) vocational (some unknown) college, certificate programs) (unknown) (no (unknown) (unknown) fire extinguisher (units (unknown) date) in home: Yes unknown) (unknown) (no (unknown) (unknown) firearms in home: (units (unknown) date) Yes firearms unknown) unloaded and locked: Yes (unknown) (no (unknown) (unknown) flaxseed Allergy (units (unknown) date) (Severe, Verified unknown) 11/01/22 11:31) (unknown) (no (unknown) (unknown) grade breast pump (units (unknown) date) that she can have unknown) when she goes home from hospital after (unknown) (no (unknown) (unknown) have occurred. If (units (unknown) date) there are any unknown) questions, please contact the Medical Records (unknown) (no (unknown) (unknown) household members: (units (unknown) date) spouse, family unknown) ([place]-[employer]-mpx and his 3 children (moving out (unknown) (no (unknown) (unknown) housing: house (units (unknown) date) unknown) (unknown) (no (unknown) (unknown) lives (units (unkno wn) date) independently: Yes unknown) (unknown) (no (unknown) (unknown) marital status: (units (unknown) date) unknown) (unknown) (no (unknown) (unknown) may occur. (units (unk nown) date) Occasional unknown) wrong-word or 'sound-alike' substitutions may have (unknown) (no (unknown) (unknown) number of (units (unkn own) date) children: 3 unknown) (unknown) (no (unknown) (unknown) occupational (units (u nknown) date) status: unemployed unknown) and previously employed (unknown) (no (unknown) (unknown) occurred due to (units (unknown) date) the inherent unknown) limitations of voice recognition software. Please (unknown) (no (unknown) (unknown) pets and animals: (units (unknown) date) Yes (horses) unknown) (unknown) (no (unknown) (unknown) prior to (units (unkno wn) date) ). Latch unknown) better on R than L. (unknown) (no (unknown) (unknown) read the note (units ( unknown) date) carefully and unknown) recognize, using context, where these substitutions (unknown) (no (unknown) (unknown) really like to (units (unknown) date) meet w/ IBCLC unknown) prior to delivery and would like Rx for hospital (unknown) (no (unknown) (unknown) seatbelt use: (units ( unknown) date) always unknown) (unknown) (no (unknown) (unknown) second hand (units (un known) date) exposure: No unknown) (unknown) (no (unknown) (unknown) software. (units (unkn own) date) Although every unknown) effort is made to edit content, fountain brush assembler errors (unknown) (no (unknown) (unknown) soon)) and (units (unk nown) date) children unknown) (unknown) (no (unknown) (unknown) special [place]land (units ( unknown) date) needs: No unknown) (unknown) (no (unknown) (unknown) substance use (units (u nknown) date) type: marijuana unknown) (in the past, not recently and not while ) (unknown) (no (unknown) (unknown) water heater temp (units (unknown) date) set < 120 deg: Yes unknown) (unknown) (no (unknown) (unknown) well-balanced (units ( unknown) date) diet: daily or unknown) most days (unknown) (no (unknown) (unknown) working smoke (units ( unknown) date) detector in home: unknown) Yes Social History date description facility 2022-10-04 00:00 Ex-smoker (finding) [facility] 2022-10-18 00:00 Ex-smoker (finding) [facility] 2022-11-01 00:00 Ex-smoker (finding) [facility] 2022-11-15 00:00 Ex-smoker (finding) [facility] 2022-11-24 00:00 Ex-smoker (finding) [facility] 2022-11-28 00:00 Ex-smoker (finding) [facility] Vital Signs date measurement value units 2022 00:00 BMI 48.4 kg/m2 2022 00:00 BP_diastolic 70 mmHg 2022 00:00 BP_systolic 110 mmHg 2022 00:00 height_metric 162.56 cm 2022 00:00 height_standard 64 in 2022 00:00 weight_metric 127.91 kg 2022 00:00 weight_standard 281.99 lb 2022-10-04 00:00 BMI 48.9 kg/m2 2022-10-04 00:00 BP_diastolic 66 mmHg 2022-10-04 00:00 BP_systolic 126 mmHg 2022-10-04 00:00 height_metric 162.56 cm 2022-10-04 00:00 height_standard 64 in 2022-10-04 00:00 weight_metric 129.27 kg 2022-10-04 00:00 weight_standard 284.99 lb 2022-10-18 00:00 BMI 49.6 kg/m2 2022-10-18 00:00 BP_diastolic 68 mmHg 2022-10-18 00:00 BP_systolic 104 mmHg 2022-10-18 00:00 height_metric 162.56 cm 2022-10-18 00:00 height_standard 64 in 2022-10-18 00:00 weight_metric 131.08 kg 2022-10-18 00:00 weight_standard 288.98 lb 2022-11-01 00:00 BMI 50.3 kg/m2 2022-11-01 00:00 BP_diastolic 60 mmHg 2022-11-01 00:00 BP_systolic 114 mmHg 2022-11-01 00:00 height_metric 162.56 cm 2022-11-01 00:00 height_standard 64 in 2022-11-01 00:00 weight_metric 132.9 kg 2022-11-01 00:00 weight_standard 292.99 lb 2022-11-15 00:00 BMI 52.2 kg/m2 2022-11-15 00:00 BP_diastolic 68 mmHg 2022-11-15 00:00 BP_systolic 112 mmHg 2022-11-15 00:00 height_metric 162.56 cm 2022-11-15 00:00 height_standard 64 in 2022-11-15 00:00 weight_metric 137.89 kg 2022-11-15 00:00 weight_standard 304 lb 2022-11-24 00:00 o2_saturation 99 % 2022-11-25 00:00 BP_diastolic 57 mmHg 2022-11-25 00:00 BP_systolic 106 mmHg 2022-11-25 00:00 heart_rate 90 /min 2022-11-25 00:00 height_metric 165 cm 2022-11-25 00:00 height_standard 64.96 in 2022-11-25 00:00 respiration_rate 18 /min 2022-11-25 00:00 temperature_metric 36.83 C 2022-11-25 00:00 temperature_standard 98.3 F 2022-11-25 00:00 weight_metric 137.9 kg 2022-11-25 00:00 weight_standard 304.02 lb 2022-11-26 00:00 BP_diastolic 82 mmHg 2022-11-26 00:00 BP_systolic 117 mmHg 2022-11-26 00:00 heart_rate 100 /min 2022-11-26 00:00 o2_saturation 98 % 2022-11-26 00:00 respiration_rate 20 /min 2022-11-26 00:00 temperature_metric 37.17 C 2022-11-26 00:00 temperature_standard 98.9 F
[2022-11-29 18:20] LABS: BASOPHILS % (AUTO) 0.3 %; EOSINOPHILS # (AUTO) 0.3 10^3/uL (0.0-0.7); EOSINOPHILS % (AUTO) 4.5 %; HCT - HEMATOCRIT 28.3 % (37.0-47.0); HGB - HEMOGLOBIN 8.5 g/dL (12.0-16.0); LYMPHOCYTES # (AUTO) 1.9 10^3/uL (1.5-3.5); LYMPHOCYTES % (AUTO) 28.2 %; MEAN CORPUSCULAR HEMOGLOBIN 26.2 pg (27.0-31.0); MEAN CORPUSCULAR VOLUME 87.1 fL (81.0-99.0); MEAN PLATELET VOLUME 9.6 fL (7.9-10.8); MONOCYTES # (AUTO) 0.4 10^3/uL (0.0-1.0); MONOCYTES % (AUTO) 6.3 %; NEUTROPHILS # (AUTO) 4.1 10^3/uL (1.5-6.6); NEUTROPHILS % (AUTO) 60.3 %; PLT - PLATELET COUNT 290 10^3/uL (130-450); RED BLOOD COUNT 3.25 10^6/uL (4.20-5.40); RED CELL DISTRIBUTION WIDTH 15.1 % (12.0-15.0); WHITE BLOOD COUNT 6.8 x10^3/uL (4.8-10.8)
[2022-11-29] MEDS ORDERED: iohexoL-300 100 ML VIAL ONE (18:25)
[2022-11-29 18:28] LABS: ALBUMIN 2.7 g/dL (3.2-5.5); ALBUMIN/GLOBULIN RATIO 0.8 (1.0-2.2); BILIRUBIN,TOTAL 0.4 mg/dL (0.2-1.0); CALCIUM 9.1 mg/dL (8.5-10.3); CREATININE 0.7 mg/dL (0.4-1.0); TOTAL PROTEIN 6.3 g/dL (6.7-8.2)
[2022-11-29 18:36] LABS: BILIRUBIN,URINE NEGATIVE (NEGATIVE); GLUCOSE, URINE (UA) NEGATIVE (NEGATIVE); KETONES,URINE (UA) NEGATIVE (NEGATIVE); LEUKOCYTE ESTERASE, URINE SMALL (NEGATIVE); NITRITE,URINE NEGATIVE (NEGATIVE); OCCULT BLOOD,URINE LARGE (NEGATIVE); PROTEIN,URINE 30 mg/dL (NEGATIVE); UROBILINOGEN,URINE 0.2 (NORMAL) E.U./dL (NORMAL)
[2022-11-29 18:38] LABS: CLARITY,URINE CLOUDY (CLEAR)
[2022-11-29 18:45] LABS: BACTERIA,URINE Rare /HPF (None Seen); SQUAMOUS EPITHELIAL CELL,UR FEW Squamous (<= Few); WBC,URINE 0-3 /HPF (0-5)
--- NOTE | 2022-11-29 20:10 | CT Report ---
PROCEDURE: ANGIO CHEST W/WO INDICATIONS: chest pain, dyspnea, s/p csxn CONTRAST: 80mL Omni 300 TECHNIQUE: After the administration of intravenous contrast, 2 mm axial images were acquired from the pulmonary apices to the posterior costophrenic angles during the arterial phase. In addition, 1 mm lung kernel and 5 mm soft tissue kernel reconstructions were performed. 3-dimensional coronal oblique maximum int ensity projection (MIP) reformats, 8 mm axial MIP, and 5 mm coronal and sagittal MPR reformats were t hen performed through the thorax. For radiation dose reduction, the following was used: automated exp osure control, adjustment of mA and/or kV according to patient size. COMPARISON: None. FINDINGS: Image quality: Excellent. Pulmonary arteries: Pulmonary arteries are normal in size, and demonstrate no intraluminal filling d efects to suggest central pulmonary embolism. Lungs and pleura: Lungs are clear. No pleural effusions or pneumothorax. Central and peripheral ai rways are patent. Mediastinum: Heart size is normal, without pericardial effusion. No mediastinal or hilar adenopathy . Thoracic aorta is normal in caliber and enhancement. Esophagus is normal in caliber, without hiat al hernia. Bones and chest wall: No suspicious bony lesions. Ribs and thoracic spine appear intact throughout. No axillary or supraclavicular adenopathy. The thyroid is normal in size and there are no incident al findings. Abdomen: Visualized upper abdominal solid organs appear normal in the early arterial phase of enhanc ement. IMPRESSION: 1. No pulmonary embolism. 2. No acute airspace opacity. Reviewed by: Villa Parr MD on 11/29/2022 8:08 PM [facility] Approved by: Villa Parr MD on 11/29/2022 8:08 PM [facility] Station ID: [id number]
--- NOTE | 2022-11-29 20:45 | ED Physician Documentation ---
History of Present Illness - Stated complaint Stated Complaint: RIB PX/SOA - Chief complaint Chief Complaint: Resp - History obtained from History obtained from: Patient, Family - History of Present Illness Pain level max: 4 Pain level now: 3 - Additonal information Additional information: Patient is a 32-year-old female who presents to the emergency department stating she has had pleuritic chest pain. She is 4 days . Had a . She has had swelling to the bilateral lower extremities. She had a blood patch at [facility] 2 days ago, has only minimal headache now. The chest pain is usually with palpation, movement or taking a deep breath. 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 Patient does not have any history of blood clots. The pain is worse with palpation, movement and deep breathing. Better with remaining still and shallow breathing. 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 - Present Medications Home Medications: Ambulatory Orders Medication Instructions Recorded Confirmed Dextroamphetamine/Amphetamine 20 mg ORAL DAILY 10/21/18 10/04/21 [Adderall 30 mg Tablet] FLUoxetine [PROzac] 10 mg PO DAILY 10/04/21 10/04/21 Ibuprofen [Motrin] 800 mg PO Q8H PRN #30 tablet 10/04/21 Levothyroxine [Synthroid] 75 mcg PO QDAC 10/04/21 10/04/21 - Allergies Allergies/Adverse Reactions: Allergies Allergy/AdvReac Type Severity Reaction Status Date / Time No Known Drug Allergies Allergy Verified 11/29/22 17:35 - Social History Does the pt smoke?: Yes Smoking Status: Current every day smoker Does the pt drink ETOH?: Yes Does the pt have substance abuse?: No - Immunizations Immunizations are current?: Yes Immunizations: Other immun not current - POLST Patient has POLST: No PD ED PE NORMAL - Vitals Vital signs reviewed: Yes - General General: Alert and oriented X 3, No acute distress - HEENT HEENT: PERRL, Moist mucous membranes - Neck Neck: Supple, no meningeal sign - Cardiac Cardiac: RRR, Strong equal pulses - Respiratory Respiratory: No respiratory distress, Clear bilaterally - Abdomen Abdomen: Soft, Non tender, Non distended - Back Back: No CVA TTP - Derm Derm: Warm and dry, No rash - Extremities Extremities: Other (1+ bilateral lower extremity edema) - Neuro Neuro: Alert and oriented X 3 Results - Vitals Vitals: Vital Signs - 24 hr 11/29/22 11/29/22 11/29/22 17:36 20:53 21:00 Temperature 36.9 C 36.4 C L Heart Rate 95 80 93 Respiratory 20 16 Rate Blood Pressure 118/79 122/70 O2 Saturation 99 99 Oxygen O2 Source Room air - EKG (time done) 2048 Rate: Rate (enter#) (83) Rhythm: NSR [place]: Normal Intervals: Normal IN QRS: Normal Ischemia: Normal ST segments - Labs Labs: Laboratory Tests 11/29/22 11/29/22 11/29/22 18:13 18:13 18:23 WBC 6.8 RBC 3.25 L Hgb 8.5 L Hct 28.3 L MCV 87.1 MCH 26.2 L MCHC 30.0 L RDW 15.1 H Plt Count 290 MPV 9.6 Neut # (Auto) 4.1 Lymph # (Auto) 1.9 [place] # (Auto) 0.4 Eos # (Auto) 0.3 Baso # (Auto) 0.0 Absolute Nucleated RBC 0.00 Nucleated RBC % 0.0 Sodium 142 Potassium 4.0 Chloride 106 Carbon Dioxide 27 Anion Gap 9.0 BUN 11 Creatinine 0.7 Estimated GFR (MDRD) 96 Glucose 77 Calcium 9.1 Total Bilirubin 0.4 AST 23 ALT 28 Alkaline Phosphatase 92 Total Protein 6.3 L Albumin 2.7 L Globulin 3.6 Albumin/Globulin Ratio 0.8 L Urine Color YELLOW Urine Clarity CLOUDY Urine pH 6.0 Ur Specific [place] [employer] 1.020 Urine Protein 30 H Urine Glucose (UA) NEGATIVE Urine Ketones NEGATIVE Urine Occult Blood LARGE H Urine Nitrite NEGATIVE Urine Bilirubin NEGATIVE Urine Urobilinogen 0.2 (NORMAL) Ur Leukocyte Esterase SMALL H Urine RBC 11-25 H Urine WBC 0-3 Ur Squamous Epith Cells FEW Squamous Urine Bacteria Rare Ur Microscopic Review INDICATED Urine Culture Comments INDICATED - Rads (name of study) CT PA Radiology: Final report received, See rad report PD Medical Decision Making - ED course Complexity details: reviewed results, re-evaluated patient, considered differential (No ST elevation ME, no aortic dissection, no PE, no tension pneumothorax, no aortic aneurysm), d/w patient ED course: 32-year-old female presents to the emergency department with what sounds like likely musculoskeletal chest pain. No acute findings on EKG, laboratory testing. CT pulmonary angiogram is negative. No evidence of cardiomyopathy. She has bilateral lower extremity edema as well. She declines Lasix. We will continue supportive care at home. Does have mild protein in her spot urine, discussed with Dr. Poon, OB who recommends that she follow-up with her doctor. Patient is otherwise well-appearing, nontoxic. Patient counseled regarding signs and symptoms for which I believe and urgent re-evaluation would be necessary. Patient with good understanding of and agreement to plan and is comfortable going home at this time This document was made in part using voice recognition software. While efforts are made to proofread this document, sound alike and grammatical errors may occur. Departure - Departure Disposition: 01 Home, Self Care Clinical Impression: Peripheral edema Chest pain Qualifiers: Chest pain type: unspecified Qualified Code(s): R07.9 - Chest pain, unspecified Condition: Good Instructions: ED Chest Pain Atypical Unkn Cause, ED Edema Legs Bilateral Follow-Up: Josefina Baumann MD [Physician No Access] - Within 1 week Comments: Your laboratory studies, EKG, CT pulmonary angiogram did not show any other significant abnormalities other than an anemia, this is expected after and . Your electrolytes, liver tests are normal. There is no evidence of a UTI. Please follow-up with your doctor for further care. Please return if you worsen. CT angiogram chest IMPRESSION: 1. No pulmonary embolism. 2. No acute airspace opacity. Discharge Date/Time: 11/29/22 21:16
[2022-11-29 20:54] VITALS: BP 122/70
[2022-11-29] MEDS ORDERED: iohexoL-300 100 ML VIAL IVP ONE (23:48)
== END 2022-11-29 21:16 | disposition home or self-care (01) ==
LOC: ED 17:24
DX: O90.89 Other complications of the puerperium, not elsewhere classified (principal); R60.0 Localized edema; R07.9 Chest pain, unspecified; O12.15 Gestational proteinuria, complicating the puerperium; O99.335 Smoking (tobacco) complicating the puerperium; F17.200 Nicotine dependence, unspecified, uncomplicated
CPT/HCPCS: 36415; 71275; 80053; 81001; 85025; 87086; 93005; 99283; 99284; Q9967; 81003

== ENCOUNTER 2023-01-13 12:41 | Outpatient (CLI) | payer MEDICAID ==
--- NOTE | 2023-01-13 15:24 | MRI Report ---
PROCEDURE: CERVICAL SPINE WO INDICATIONS: NECK AND BACK PAIN TECHNIQUE: Noncontrast sagittal T1 spin echo and T2 fast spin echo, sagittal STIR, foraminal oblique sagittal T2 fast spin echo, and axial gradient echo or T2 fast spin echo through the cervical spine. COMPARISON: None. FINDINGS: Image quality: Excellent. Alignment and Curvature: There is normal bony alignment. Reversal of the normal lordotic curve of th e cervical spine may indicate muscle spasm, or may be positional. Bone Marrow: Marrow demonstrates normal overall signal. Spinal Cord: Visualized spinal cord has normal size and signal. No cerebellar tonsillar herniation. Paraspinous Soft Tissues: No paravertebral masses. Prevertebral soft tissues are normal in thicknes s. C2-C3: Normal in appearance. C3-C4: Normal in appearance. C4-C5: Minimal disc bulge. No canal stenosis or foraminal stenosis. C5-C6: Right paracentral annulus tear. Minimal right paracentral disc protrusion. No canal stenosis. AP diameter of the canal measures 10.9 mm. No foraminal stenosis. C6-C7: Minimal disc bulge. No canal stenosis or foraminal stenosis. C7-T1: Normal in appearance. IMPRESSION: 1. There is no canal stenosis or foraminal stenosis. 2. At C5-C6, there is a right paracentral annulus tear plus minimal right paracentral disc protrusion without canal stenosis. Reviewed by: Miguel A Carroll MD on 01/13/2023 3:22 PM PST Approved by: Miguel A Carroll MD on 01/13/2023 3:22 PM PST Station ID: [id number]
--- NOTE | 2023-01-13 15:28 | MRI Report ---
PROCEDURE: THORACIC SPINE WO INDICATIONS: NECK AND BACK PAIN TECHNIQUE: Noncontrast sagittal T1 spine echo and T2 fast spin echo, sagittal STIR, axial T1 and T2 fast spin ec ho through the thoracic spine. COMPARISON: Cervical spine MRI and lumbar spine MRI from the same date. FINDINGS: Image quality: Excellent. Alignment and Curvature: There is normal bony alignment. Bone Marrow: Marrow is of normal overall signal. No acute vertebral body compression fractures. Spinal Cord: Visualized spinal cord is normal in size and signal. Incidental note is made of mild pr ominence of the central canal in the lower thoracic cord. Conus terminates at the top of L2. Paraspinous Soft Tissues: No paravertebral masses. Miscellaneous: On axial images, central canal and foramina appear widely patent at all scanned level s. IMPRESSION: Unremarkable thoracic spine MRI. No canal stenosis or foraminal stenosis. Reviewed by: Miguel A Carroll MD on 01/13/2023 3:27 PM PST Approved by: Miguel A Carroll MD on 01/13/2023 3:27 PM PST Station ID: [id number]
--- NOTE | 2023-01-13 15:33 | MRI Report ---
PROCEDURE: LUMBAR SPINE WO INDICATIONS: NECK AND BACK PAIN TECHNIQUE: Noncontrast sagittal T1 spin echo and T2 fast echo, sagittal STIR, axial T1 and T2 fast spin echo thr ough the lumbar spine. In cases with scoliosis, additional coronal T2 fast spin echo may be performe d. COMPARISON: None. FINDINGS: Image quality: Excellent. Alignment and Curvature: There is normal bony alignment. Bone Marrow: Marrow is of normal overall signal. No acute vertebral body compression fractures. Spinal Cord: Conus medullaris terminates at the top of L2 level. Incidental note is made of mild pro minence of the central canal of the cord at the level of the lower thoracic cord. Visualized cord dem onstrates normal signal and size. Paraspinous Soft Tissues: No paravertebral masses. T12-L1: Normal in appearance. L1-L2: Normal in appearance. L2-L3: Normal in appearance. L3-L4: Mild facet hypertrophy. No canal stenosis or foraminal stenosis. L4-L5: Mild facet hypertrophy. No canal stenosis or foraminal stenosis. L5-S1: Mild right paracentral disc protrusion without nerve root impingement. No canal stenosis. Bi lateral facet hypertrophy. No foraminal narrowing. IMPRESSION: 1. Multilevel facet hypertrophy, relatively mild. 2. No canal stenosis or foraminal stenosis. 3. A mild right paracentral disc protrusion is noted at L5-S1 without nerve root impingement. It is o f uncertain clinical significance. Reviewed by: Miguel A Carroll MD on 01/13/2023 3:31 PM PST Approved by: Miguel A Carroll MD on 01/13/2023 3:31 PM PST Station ID: [id number]
== END 2023-01-13 12:42 | disposition home or self-care (01) ==
LOC: DI 12:41
PROVIDERS: ATTEND Nurse Practitioner Family
DX: M50.222 Other cervical disc displacement at C5-C6 level (principal); M50.321 Other cervical disc degeneration at C4-C5 level; M47.816 Spondylosis without myelopathy or radiculopathy, lumbar region; M51.27 Other intervertebral disc displacement, lumbosacral region; M47.817 Spondylosis without myelopathy or radiculopathy, lumbosacral region

== ENCOUNTER 2023-01-14 08:29 | Emergency (ER) | payer MEDICAID ==
[2023-01-14 08:43] VITALS: BP 106/62
--- NOTE | 2023-01-14 08:50 | ED Physician Documentation ---
PD HPI BACK PAIN - Stated complaint Stated Complaint: BACK PX - Chief complaint Chief Complaint: Back Pain - History obtained from History obtained from: Patient - Additional information Additional information: Patient is a 32-year-old presenting for evaluation of low back pain that has been ongoing for the past 7 weeks. She reports having a scheduled 7 weeks ago and required a blood patch For spinal headache. She says that since having the blood patch done that she has continued to have worsening low back pain and shooting pains up and down her spine that come and go. She has tried acetaminophen and Ibuprofen without any significant improvement. She has been on pain medication from her OB. She denies loss of bowel or bladder control or saddle anesthesia. She did have MRIs of her cervical, thoracic and lumbar spines done yesterday but is unsure of the results. She reports that the pain does get worse as she is doing more around the house and also during long drives. She does occasionally need to be in the car for extended amounts of time for rheumatology appointments for another child as well as to drop her off at work in [place] as they only have 1 car. The pain is sharp and aching. She reports occasionally feeling pain shooting down her left leg. She does not currently have pain in her left leg.She denies fever, chest pain, abdominal pain, vomiting, dysuria. 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 - Present Medications Home Medications: Ambulatory Orders Medication Instructions Recorded Confirmed Ibuprofen [Motrin] 800 mg PO Q8H PRN #30 tablet 10/04/21 01/14/23 Citalopram [CeleXA] 20 mg PO DAILY 01/14/23 01/14/23 HYDROcod/ACETAM 5/325 [Potter 5/325] 1 tablet PO Q6H PRN #14 tablet 01/14/23 Levothyroxine Sodium 137 mcg PO DAILY 01/14/23 01/14/23 [Levothyroxine] Lidocaine Patch 5% [Lidoderm Patch] 1 patch TOP DAILY PRN #10 patch 01/14/23 predniSONE [Deltasone] 20 mg PO [id number] #21 tab 01/14/23 - Allergies Allergies/Adverse Reactions: Allergies Allergy/AdvReac Type Severity Reaction Status Date / Time No Known Drug Allergies Allergy Verified 01/14/23 08:38 - Social History Does the pt smoke?: No Smoking Status: Never smoker Does the pt drink ETOH?: No Does the pt have substance abuse?: No - Immunizations Immunizations are current?: Yes Immunizations: Other immun not current - POLST Patient has POLST: No PD ED PE NORMAL - General General: Alert and oriented X 3, No acute distress, Well developed/nourished - HEENT HEENT: Atraumatic - Neck Neck: Supple, no meningeal sign, No bony TTP - Cardiac Cardiac: RRR, Strong equal pulses - Respiratory Respiratory: No respiratory distress, Clear bilaterally - Abdomen Abdomen: Soft, Non tender, Non distended, Other (Well-healed lower abdominal incision from recent ) - Back Back: Other (Mild midline low lumbar tenderness to palpation with no swelling, no erythema) - Extremities Extremities: No edema, No calf tenderness / cord, Other (Negative straight leg raise bilaterally; Normal dorsiflexion of great toes bilaterally) - Neuro Neuro: Alert and oriented X 3, No motor deficit, No sensory deficit, Normal speech Results - Vitals Vitals: Vital Signs - 24 hr 01/14/23 08:38 Temperature 36.8 C Heart Rate 69 Respiratory 18 Rate Blood Pressure 106/62 O2 Saturation 100 Oxygen O2 Source Room air PD Medical Decision Making - ED course Complexity details: reviewed results (Patient's MRIs) ED course: Patient presenting for evaluation of low back pain that has been ongoing for several weeks since having a blood patch.Her neuro exam is normal and she is ambulating without difficulty. She had MRIs done as an outpatient yesterday which I also reviewed with the patient. There is no signs of cauda equina or cord compression. She does have 2 areas of disc protrusion which could be contributory to her symptoms. I reviewed these findings as well as treatment o ptions. Patient is agreeable to continued treatment with anti-inflammatories and will also try lidocaine patches, course of prednisone and pain medication as needed. She is advised on need for follow-up with her primary care provider. She is advised on concerning symptoms to return for. MRI Cervical IMPRESSION: 1. There is no canal stenosis or foraminal stenosis. 2. At C5-C6, there is a right paracentral annulus tear plus minimal right paracentral disc protrusion without canal stenosis. MRI Thoracic IMPRESSION: Unremarkable thoracic spine MRI. No canal stenosis or foraminal stenosis. MRI Lumbar IMPRESSION: 1. Multilevel facet hypertrophy, relatively mild. 2. No canal stenosis or foraminal stenosis. 3. A mild right paracentral disc protrusion is noted at L5-S1 without nerve root impingement. It is of uncertain clinical significance. Departure - Departure Disposition: 01 Home, Self Care Clinical Impression: Low back pain Condition: Stable Instructions: ED Neck Back Pain General Follow-Up: Viry Coello ARNP [Primary Care Provider] - Prescriptions: predniSONE [Deltasone] 20 mg PO [id number] #21 tab Lidocaine Patch 5% [Lidoderm Patch] 1 patch TOP DAILY PRN #10 patch PRN Reason: pain HYDROcod/ACETAM 5/325 [Potter 5/325] 1 tablet PO Q6H PRN #14 tablet PRN Reason: Pain Comments: YOUR RECENT MRI RESULTS ARE LISTED BELOW. Findings could explain some of your symptoms being caused by disc protrusion. We have discussed treatment options and I have sent prescriptions to [facility] in [place].Please have close follow- up with your PCP. I am prescribing a short course of narcotic pain medication for you. These are potentially dangerous and addictive medications that should be used carefully. These medications may constipate you. Take an [id number] stool softener (docusate) twice daily with plenty of water while taking these medications. If you go 24 hours without a bowel movement, take [id number] miralax, per package instructions. Do not drink or drive while taking these medications. If you received narcotic or sedating medications while in the emergency department, do not drive for 24 hours. Store this medication in a safe, secure place and out of reach of children. It is a violation of federal law to give or sell this medication to another person or to use in a manner other than prescribed. The ED will not refill narcotic prescriptions, including prescriptions lost or stolen. To dispose of unwanted medications: 1. [facility] at [address] in [place] has a medication drop box. They accept prescription medications (in pill form) Monday through Monday 9:00 a.m. to 5:00 p.m. 2. The [facility] [place] [employer] accepts prescription medications (in pill form only) for disposal year round. Call for more information. 3. Contact the [facility] for the next [facility] sponsored prescription drug collection event. , [phone], or [phone]; Note that many narcotic pain relievers also contain Tylenol/acetaminophen. Please ensure that your total dose of acetaminophen from all sources does not exceed 3 g (3000 mg) per day. MRI Cervical IMPRESSION: 1. There is no canal stenosis or foraminal stenosis. 2. At C5-C6, there is a right paracentral annulus tear plus minimal right paracentral disc protrusion without canal stenosis. MRI Thoracic IMPRESSION: Unremarkable thoracic spine MRI. No canal stenosis or foraminal stenosis. MRI Lumbar IMPRESSION: 1. Multilevel facet hypertrophy, relatively mild. 2. No canal stenosis or foraminal stenosis. 3. A mild right paracentral disc protrusion is noted at L5-S1 without nerve root impingement. It is of uncertain clinical significance. Discharge Date/Time: 01/14/23 09:22
--- OUTSIDE RECORDS SUMMARY | 2023-01-14 09:04 | EXTERNAL MEDICAL SUMMARY RPT | Continuity of Care Document ---
:1990 Author Organization [facility] [address] [place] [address] Phone Care Team Providers Name Role Phone Unavailable Unavailable Unavailable Josefina Baumann Unavailable Unavailable Allergies and Intolerances date description facility type (no date) [facility] [place] (unknown) Encounters No information. Functional Status No information. Immunizations date description facility 2022-11-01 00:00 [place] [facility] 18YR+ [facility] Medications date description facility 2022-11-25 00:00 [facility] 2022-12-02 00:00 [facility] 2022-12-15 00:00 [facility] 2022-12-26 00:00 [facility] 2022-12-07 00:00 Citalopram [facility] 2022-10-17 00:00 Levothyroxine [facility] Problems date description facility 2022-10-18 00:00 [facility] for [facility]ilization [facility] 2022-10-18 [facility]:00 [facility] 2022-11-01 12:23 Encounter for supervision of other [facility] t 2022-11-01 12:23 35 weeks gestation of [facility] 2022-11-02 02:05 Encounter for supervision of other [facility] t 2022-11-02 02:05 35 weeks gestation of [facility] 2022-11-10 12:33 Decreased movements, third trimes [facility] applicable o 2022-11-24 07:17 Encounter for sterilization [facility] 2022-11-24 07:17 39 weeks gestation of [facility] 2022-11-24 07:17 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 [facility] 2022-11-24 07:18 [facility] 2022-11-24 07:18 39 weeks gestation of [facility] 2022-11-24 07:18 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 [facility] 2022-11-24 08:47 Encounter for sterilization [facility] 2022-11-24 08:47 39 weeks gestation of [facility] 2022-11-24 08:47 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 [facility] 2022-11-24 09:45 Encounter for sterilization [facility] 2022-11-24 09:45 39 weeks gestation of [facility] 2022-11-24 09:45 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 [facility] 2022-11-24 17:45 Encounter for sterilization [facility] 2022-11-24 17:45 39 weeks gestation of [facility] 2022-11-24 17:45 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 [facility] 2022-11-25 08:51 Encounter for sterilization [facility] 2022-11-25 08:51 39 weeks gestation of [facility] 2022-11-25 08:51 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 [facility] 2022-11-25 09:37 Encounter for sterilization [facility] 2022-11-25 09:37 39 weeks gestation of [facility] 2022-11-25 09:37 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 [facility] 2022-11-25 10:52 Encounter for sterilization [facility] 2022-11-25 10:52 39 weeks gestation of [facility] 2022-11-25 10:52 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 [facility] 2022-11-25 14:03 Encounter for [facility] 2022-11-25 14:03 39 weeks gestation of [facility] 2022-11-25 14:03 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 [facility] 2022-11-25 16:40 Encounter for [facility] 2022-11-25 16:40 39 weeks gestation of [facility] 2022-11-25 16:40 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 [facility] 2023-01-05 15:58 Hypothyroidism, unspecified [facility] Procedures date description facility 2022-11-24 00:00 drainage of amniotic fluid, therapeutic from [facility] products of conception, via natural or artificial opening 2022-11-24 00:00 Extraction of Products of Conception, L ow, Open [facility] Approach 2022-11-24 00:00 Section (Not Applicable) [facility] 2022-11-26 00:00 Blood [facility] Results/Labs test date author facility value [...] Hospital unknown) Result panel 152 (unknown) (no date) (unknown[facility]) Result panel 153 (unknown) (no date) (unknown[facility]) Result panel 154 (unknown) (no date) (unknown[facility]) Result panel 155 (unknown) (no date) (unknown[facility]) Result panel 156 (unknown) (no date) (unknown[facility]) Result panel 157 (unknown) (no date) (unknown[facility]) Result panel 158 (unknown) (no date) (unknown[facility]) Result panel 159 (unknown) (no date) (unknown[facility]) Result panel 160 (unknown) (no date) (unknown[facility]) Result panel 161 (unknown) (no date) (unknown[facility]) Result panel 162 (unknown) (no (unknown) (unknown) [...] own) date) unknown) (unknown) (no (unknown) (unknown) [place], [place] (units ( unknown) date) [address] unknown) (unknown) (no (unknown) (unknown) Anaphylaxis (units [...] (unknown) (unknown) : 1990 (units (unknown) date) Acct:[id number] unknown) (unknown) (no (unknown) (unknown) Date of [...] wn) date) unknown) (unknown) (no (unknown) (unknown) [id number] (units (unk nown) date) unknown) (unknown) (no [...] Lindquist MR#: unknown) (unknown) (no (unknown) (unknown) 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: (units ( unknown) date) Pediatric unknown) [facility] (unknown) (no (unknown) (unknown) Personal history (units [...] unknown) child: No (unknown) (no (unknown) (unknown) [facility] (units (unk nown) date) [place] 4 unknown) [...] part unknown) of son's genetic workup at [place] (unknown) (no (unknown) (unknown) Tobacco + (units [...] (unknown) Visit Date: (units (un known) date) 06/24/22 Last unknown) Updated by: Josefina Baumann MD [...] unknown) date) unknown) (unknown) (no (unknown) (unknown) [place] teeth (units (u nknown) date) extracted unknown) (unknown) (no (unknown) (unknown) Would like (units (unk nown) date) referral unknown) to [facility] and [facility] grade breast pump at (unknown) [...] members: (units (unknown) date) spouse, family unknown) (fagtnoh-yd-kcu and his 3 children (moving out (unknown) [...] (no (unknown) (unknown) prenat.vits,alexey,m (units (unknown) date) cy-hxas-lpojv 1 unknown) tab PO DAILY 04/22/22 [History [...] (units (unknown) date) check with surgery unknown) mangle feeder regarding November 24, 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 (units (unkn own) date) Although every unknown) effort is made to edit content, straight knife machine cutter errors (unknown) (no (unknown) (unknown) soon)) and [...] (unknown) term [place] (units ( unknown) date) [place] unknown) (unknown) (no (unknown) (unknown) trimester, Z87.59 [...] own) date) unknown) (unknown) (no (unknown) (unknown) [place], [place] (units ( unknown) date) [address] unknown) (unknown) (no (unknown) (unknown) Anaphylaxis (units [...] own) date) unknown) (unknown) (no (unknown) (unknown) [place] 2 months (units (unknown) date) post-dates unknown) [...] (unknown) (unknown) : 1990 (units (unknown) date) Acct:[id number] unknown) (unknown) (no (unknown) (unknown) Date of [...] wn) date) unknown) (unknown) (no (unknown) (unknown) [id number] (units (unk nown) date) unknown) (unknown) (no (unknown) (unknown) Marital status: (units (unknown) date) unknown) (unknown) (no (unknown) (unknown) Medical History (units (unknown) date) (Updated 11/15/22 unknown) @ 11:18 by Josefina Baumann MD) [...] Lindquist MR#: unknown) (unknown) (no (unknown) (unknown) 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: (units ( unknown) date) Pediatric unknown) [facility] (unknown) (no (unknown) (unknown) Personal history (units [...] unknown) child: No (unknown) (no (unknown) (unknown) [facility] (units (unk nown) date) [place] 4 unknown) (unknown) (no (unknown) (unknown) Providers (units (unkn own) date) unknown) (unknown) (no (unknown) (unknown) Pt here for OB (units (unknown) date) Check *[facility] pt* unknown) needs to sign her sterilization [...] part unknown) of son's genetic workup at [place] (unknown) (no (unknown) (unknown) Tobacco + (units [...] unknown) date) unknown) (unknown) (no (unknown) (unknown) [place] teeth (units (u nknown) date) extracted unknown) (unknown) (no (unknown) (unknown) Would like (units (unk nown) date) referral unknown) to [facility] and wants new [facility] grade breast pump at (unknown) (no (unknown) [...] members: (units (unknown) date) spouse, family unknown) (lzuqumk-ek-xsj and his 3 children (moving out (unknown) [...] (no (unknown) (unknown) prenat.vits,alexey,m (units (unknown) date) [id number] 1 unknown) tab PO DAILY 04/22/22 [History [...] (units (unknown) date) check with surgery unknown) mangle feeder regarding November 24, 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 (units (unkn own) date) Although every unknown) effort is made to edit content, straight knife machine cutter errors (unknown) (no (unknown) (unknown) soon)) and [...] (unknown) term [place] (units ( unknown) date) [place] unknown) (unknown) (no (unknown) (unknown) trimester, Z87.59 [...] own) date) unknown) (unknown) (no (unknown) (unknown) [place] (units ( unknown) date) [address] unknown) (unknown) (no (unknown) (unknown) Anaphylaxis (units [...] own) date) unknown) (unknown) (no (unknown) (unknown) [place] 2 months (units (unknown) date) post-dates unknown) [...] (unknown) (unknown) : 1990 (units (unknown) date) Acct:[id number] unknown) (unknown) (no (unknown) (unknown) Date of [...] wn) date) unknown) (unknown) (no (unknown) (unknown) [id number] (units (unk nown) date) unknown) (unknown) (no [...] Lindquist MR#: unknown) (unknown) (no (unknown) (unknown) 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: (units ( unknown) date) Pediatric unknown) [facility] (unknown) (no (unknown) (unknown) Personal history (units [...] unknown) child: No (unknown) (no (unknown) (unknown) [facility] (units (unk nown) date) [place] 4 unknown) [...] part unknown) of son's genetic workup at [place] (unknown) (no (unknown) (unknown) Tobacco + (units [...] unknown) date) unknown) (unknown) (no (unknown) (unknown) [place] teeth (units (u nknown) date) extracted unknown) (unknown) (no (unknown) (unknown) Would like (units (unk nown) date) referral unknown) to [facility] grade breast pump at (unknown) (no (unknown) (unknown) Yes no 148 36 (units ( unknown) date) Vertex absent HUNTER unknown) 23.99 cm (unknown) (no (unknown) (unknown) Zika virus (units (unk n) date) exposure: No unknown) (unknown) (no (unknown) [...] members: (units (unknown) date) spouse, family unknown) (wyluoxl-ty-qjy and his 3 children (moving out (unknown) [...] (no (unknown) (unknown) prenat.vits,alexey,m (units (unknown) date) qv-rasi-wnxbx 1 unknown) tab PO DAILY 04/22/22 [History [...] (units (unknown) date) check with surgery unknown) mangle feeder regarding November 24, 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 (units (unkn own) date) Although every unknown) effort is made to edit content, straight knife machine cutter errors m (unknown) (no (unknown) (unknown) soon)) [...] unknown) Yes Result panel 165 (unknown) (no (unknown) (unknown) (no value) (units [...] own) date) unknown) (unknown) (no (unknown) (unknown) [place], [place] (units ( unknown) date) [id number] unknown) (unknown) (no (unknown) (unknown) Anaphylaxis (units [...] (unknown) (unknown) : 1990 (units (unknown) date) Acct:[id number] unknown) (unknown) (no (unknown) (unknown) Date of [...] wn) date) unknown) (unknown) (no (unknown) (unknown) [id number] (units (unk nown) date) unknown) (unknown) (no [...] (unknown) Patient: White (units (unknown) date) Brittany Lindqusit MR#: unknown) (unknown) (no (unknown) (unknown) 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: (units ( unknown) date) Pediatric unknown) [facility] [...] unknown) child: No (unknown) (no (unknown) (unknown) [facility] (units (unk nown) date) [place] 4 unknown) [...] part unknown) of son's genetic workup at [place] (unknown) (no (unknown) (unknown) Tobacco + (units [...] unknown) date) unknown) (unknown) (no (unknown) (unknown) [place] teeth (units (u nknown) date) extracted unknown) (unknown) (no (unknown) (unknown) Would like (units (unk nown) date) referral unknown) to [facility] grade breast pump at (unknown) (no (unknown) [...] members: (units (unknown) date) spouse, family unknown) (auxqpsi-cc-ulh and his 3 children (moving out (unknown) [...] (no (unknown) (unknown) prenat.vits,alexey,m (units (unknown) date) vt-oyoi-[id number] 1 unknown) tab PO DAILY 04/22/22 [History [...] (units (unknown) date) check with surgery unknown) mangle feeder regarding November 24, 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 (units (unkn own) date) Although every unknown) effort is made to edit content, straight knife machine cutter errors (unknown) (no (unknown) (unknown) soon)) and [...] (unknown) term [place] (units ( unknown) date) [place] unknown) (unknown) (no (unknown) (unknown) volume. The [...] detector in home: unknown) Yes Result panel 166 (unknown) (no (unknown) (unknown) [...] own) date) unknown) (unknown) (no (unknown) (unknown) [place], [place] (units ( unknown) date) [address] unknown) (unknown) (no (unknown) (unknown) Anaphylaxis (units [...] (unknown) (unknown) : 1990 (units (unknown) date) Acct:[id number] unknown) (unknown) (no (unknown) (unknown) Date of [...] wn) date) unknown) (unknown) (no (unknown) (unknown) [id number] (units (unk nown) date) unknown) (unknown) (no [...] Lindquist MR#: unknown) (unknown) (no (unknown) (unknown) 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: (units ( unknown) date) Pediatric unknown) Associates [...] unknown) child: No (unknown) (no (unknown) (unknown) [facility] (units (unk nown) date) [place] 4 unknown) [...] part unknown) of son's genetic workup at [place] (unknown) (no (unknown) (unknown) Tobacco + (units [...] unknown) date) unknown) (unknown) (no (unknown) (unknown) [place] teeth (units (u nknown) date) extracted unknown) (unknown) (no (unknown) (unknown) Would [facility] (units (unk nown) date) [facility] at (unknown) [...] date) She is having a unknown) few [place] contractions but denies (unknown) (no (unknown) [...] members: (units (unknown) date) spouse, family unknown) (jimlsrx-ls-ppg and his 3 children (moving out (unknown) [...] (no (unknown) (unknown) prenat.vits,alexey,m (units (unknown) date) by-udaa-iafoj 1 unknown) tab PO DAILY 04/22/22 [History [...] (units (unknown) date) check with surgery unknown) mangle feeder regarding November 24, 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 (units (unkn own) date) Although every unknown) effort is made to edit content, straight knife machine cutter errors (unknown) (no (unknown) (unknown) soon)) and [...] (unknown) term [place] (units ( unknown) date) [place] unknown) (unknown) (no (unknown) (unknown) volume. The [...] mL IM Left (units (unknown) date) Deltoid [id number] unknown) 05/03/23 [id number] [facility] (unknown) (no (unknown) (unknown) 01/24/14 41 [...] (unknown) [place], [place] (units ( unknown) date) [address] unknown) (unknown) (no (unknown) (unknown) Anaphylaxis (units [...] own) date) unknown) (unknown) (no (unknown) (unknown) [place] 2 months (units (unknown) date) post-dates unknown) [...] (unknown) (unknown) : 1990 (units (unknown) date) Acct:[id number] unknown) (unknown) (no (unknown) (unknown) Date of [...] wn) date) unknown) (unknown) (no (unknown) (unknown) [id number] (units (unk nown) date) unknown) (unknown) (no (unknown) (unknown) Helpdesk Administrator (units (u nknown) date) unknown) (unknown) (no [...] Lindquist MR#: unknown) (unknown) (no (unknown) (unknown) 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: (units ( unknown) date) Pediatric unknown) Associates [...] unknown) (unknown) (no (unknown) (unknown) (units (unk n) date) depression unknown) (unknown) (no (unknown) (unknown) [...] unknown) child: No (unknown) (no (unknown) (unknown) [facility] (units (unk nown) date) [place] 4 unknown) [...] part unknown) of son's genetic workup at [place] (unknown) (no (unknown) (unknown) Tobacco + (units [...] unknown) date) unknown) (unknown) (no (unknown) (unknown) [place] teeth (units (u nknown) date) extracted unknown) (unknown) (no (unknown) (unknown) Would like (units (unk nown) date) [facility] unknown) [facility] breast pump at (unknown) [...] date) She is having a unknown) few [place] contractions but denies (unknown) (no (unknown) [...] members: (units (unknown) date) spouse, family unknown) (gneqxgo-fl-cxd and his 3 children (moving out (unknown) [...] (no (unknown) (unknown) prenat.vits,alexey,m (units (unknown) date) sp-xmej-ctcos 1 unknown) tab PO DAILY 04/22/22 [History [...] (units (unknown) date) check with surgery unknown) mangle feeder regarding November 24, 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 (units (unkn own) date) Although every unknown) effort is made to edit content, straight knife machine cutter errors (unknown) (no (unknown) (unknown) soon)) and [...] unknown) Yes Result panel 168 (unknown) (no date) (unknown) (unknown) NEG for (units (unkn own) Grp B Strep unknown) (unknown) (no date) (unknown) (unknown) NEG for (units (unkn own) Grp B Strep unknown) Result panel 169 (unknown) (no (unknown) (unknown) [...] mL IM Left (units (unknown) date) Deltoid [id number] unknown) 06/14/23 [id number] [facility] (unknown) (no (unknown) (unknown) 01/24/14 41 [...] (unknown) (unknown) Administered by: (units (unknown) date) Floydyudelka Culp MA unknown) on 11/01/22 14:04 (unknown) (no (unknown) (unknown) Age/Sex: 32 / F (units (unknown) date) Date of Service: unknown) (unknown) (no (unknown) (unknown) Alcoholism (units (unk nown) date) unknown) (unknown) (no (unknown) (unknown) Allergies (units (unkn own) date) unknown) (unknown) (no (unknown) (unknown) [place], [place] (units ( unknown) date) [address] unknown) (unknown) (no (unknown) (unknown) Anaphylaxis (units [...] (unknown) (unknown) : 1990 (units (unknown) date) Acct:[id number] unknown) (unknown) (no (unknown) (unknown) Date of [...] wn) date) unknown) (unknown) (no (unknown) (unknown) rBittany and her (units (u nknown) date) children [...] wn) date) unknown) (unknown) (no (unknown) (unknown) [id number] (units (unk nown) date) unknown) (unknown) (no (unknown) (unknown) Helpdesk Administrator (units (u nknown) date) unknown) (unknown) (no [...] Lindquist MR#: unknown) (unknown) (no (unknown) (unknown) 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: (units ( unknown) date) Pediatric unknown) Associates [...] unknown) child: No (unknown) (no (unknown) (unknown) [facility] (units (unk nown) date) [place] 4 unknown) [...] part unknown) of son's genetic workup at [place] (unknown) (no (unknown) (unknown) Tobacco + (units [...] unknown) date) unknown) (unknown) (no (unknown) (unknown) [place] teeth (units (u nknown) date) extracted unknown) (unknown) (no (unknown) (unknown) Would like (units (unk nown) date) [facility] unknown) [facility] grade breast pump at (unknown) [...] members: (units (unknown) date) spouse, family unknown) (momoqyt-fd-kxt and his 3 children (moving out (unknown) [...] (no (unknown) (unknown) prenat.vits,alexey,m (units (unknown) date) sl-wiwf-nxnpi 1 unknown) tab PO DAILY 04/22/22 [History [...] (units (unknown) date) check with surgery unknown) mangle feeder regarding November 24, 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 (units (unkn own) date) Although every unknown) effort is made to edit content, straight knife machine cutter errors (unknown) (no (unknown) (unknown) soon)) and [...] (unknown) term [place] (units ( unknown) date) [place] unknown) (unknown) (no (unknown) (unknown) volume. The [...] mL IM Left (units (unknown) date) Deltoid [id number] unknown) 05/03/23 [id number] [facility] (unknown) (no (unknown) (unknown) 01/24/14 41 [...] own) date) unknown) (unknown) (no (unknown) (unknown) [place], [place] (units ( unknown) date) [address] unknown) (unknown) (no (unknown) (unknown) Anaphylaxis (units [...] own) date) unknown) (unknown) (no (unknown) (unknown) [place] 2 months (units (unknown) date) post-dates unknown) [...] (unknown) (unknown) : 1990 (units (unknown) date) Acct:[id number] unknown) (unknown) (no (unknown) (unknown) Date of [...] wn) date) unknown) (unknown) (no (unknown) (unknown) [id number] (units (unk nown) date) unknown) (unknown) (no (unknown) (unknown) Helpdesk Administrator (units (u nknown) date) unknown) (unknown) (no [...] Lindquist MR#: unknown) (unknown) (no (unknown) (unknown) 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: (units ( unknown) date) Pediatric unknown) Associates [...] unknown) child: No (unknown) (no (unknown) (unknown) [facility] (units (unk nown) date) [place] 4 unknown) [...] part unknown) of son's genetic workup at [place] (unknown) (no (unknown) (unknown) Tobacco + (units [...] unknown) date) unknown) (unknown) (no (unknown) (unknown) [place] teeth (units (u nknown) date) extracted unknown) (unknown) (no (unknown) (unknown) Would like (units (unk nown) date) referral unknown) to [facility] and [facility] grade breast pump at (unknown) [...] date) She is having a unknown) few [place] contractions but denies (unknown) (no (unknown) [...] members: (units (unknown) date) spouse, family unknown) (shmjdza-tk-qfs and his 3 children (moving out (unknown) [...] (no (unknown) (unknown) prenat.vits,alexey,m (units (unknown) date) [id number] 1 unknown) tab PO DAILY 04/22/22 [History [...] (units (unknown) date) check with surgery unknown) mangle feeder regarding November 24, 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 (units (unkn own) date) Although every unknown) effort is made to edit content, straight knife machine cutter errors (unknown) (no (unknown) (unknown) soon)) and [...] unknown) Yes Result panel 171 (unknown) (no (unknown) (unknown) (no value) (units [...] own) date) unknown) (unknown) (no (unknown) (unknown) [place] (units ( unknown) date) [id number] unknown) (unknown) (no (unknown) (unknown) Anaphylaxis (units [...] (unknown) (unknown) : 1990 (units (unknown) date) Acct:[id number] unknown) (unknown) (no (unknown) (unknown) Date of [...] nknown) date) children present unknown) for her SHEMRAN visit now at 33+ 6 weeks (unknown) (no (unknown) (unknown) Brittany presents (units ( unknown) date) today with her 3 unknown) kids for a routine OB visit at 24w5d. She (unknown) (no (unknown) (unknown) Live with someone (units (unknown) date) with TB or exposed unknown) to TB: No (unknown) (no (unknown) (unknown) Loc: [facility] (units (unkno wn) date) unknown) (unknown) (no (unknown) (unknown) [id number] (units (unk nown) date) unknown) (unknown) (no [...] Lindquist MR#: unknown) (unknown) (no (unknown) (unknown) 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: (units ( unknown) date) Pediatric unknown) Associates [...] unknown) child: No (unknown) (no (unknown) (unknown) [facility] (units (unk nown) date) [place] 4 unknown) [...] part unknown) of son's genetic workup at [place] (unknown) (no (unknown) (unknown) Tobacco + (units [...] wn) date) unknown) (unknown) (no (unknown) (unknown) [place] teeth (units (u nknown) date) extracted unknown) [...] date) She is having a unknown) few [place] contractions but denies (unknown) (no (unknown) [...] members: (units (unknown) date) spouse, family unknown) (depfuuq-sx-jdg and his 3 children (moving out (unknown) [...] (units (unknown) date) check with surgery unknown) mangle feeder regarding November 24, 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 (units (unkn own) date) Although every unknown) effort is made to edit content, straight knife machine cutter errors (unknown) (no (unknown) (unknown) soon)) and (units (unk nown) date) children unknown) (unknown) (no (unknown) (unknown) special [place] (units ( unknown) date) needs: No unknown) (unknown) (no (unknown) (unknown) substance use (units (u nknown) date) type: marijuana unknown) (in the past, not recently and not while ) (unknown) (no (unknown) (unknown) term [place] (units ( unknown) date) [place] unknown) (unknown) (no (unknown) (unknown) volume. The [...] detector in home: unknown) Yes Result panel 172 (unknown) (no (unknown) (unknown) (no value) (units [...] own) date) unknown) (unknown) (no (unknown) (unknown) SIL [place]ocha (units ( unknown) date) [id number] unknown) (unknown) (no (unknown) (unknown) Anaphylaxis (units [...] (unknown) (unknown) : 1990 (units (unknown) date) Acct:[id number] unknown) (unknown) (no (unknown) (unknown) Date of [...] wn) date) unknown) (unknown) (no (unknown) (unknown) [id number] (units (unk nown) date) unknown) (unknown) (no [...] delivery: No (unknown) (no (unknown) (unknown) Patient: Miguel A (units (unknown) date) Brittany Lindquist MR#: unknown) (unknown) (no (unknown) (unknown) 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: (units ( unknown) date) Pediatric unknown) Associates [...] unknown) child: No (unknown) (no (unknown) (unknown) [facility] (units (unk nown) date) [place] 4 unknown) [...] part unknown) of son's genetic workup at [place] (unknown) (no (unknown) (unknown) Tobacco + (units [...] Visit Reasons: OB (units (unknown) date) check Pastor pt * unknown) (unknown) (no (unknown) (unknown) Vitals (units (unkno wn) date) unknown) (unknown) (no (unknown) (unknown) WG (units (unkno wn) date) unknown) (unknown) (no (unknown) (unknown) Weight 304 lb (units ( unknown) date) unknown) (unknown) (no (unknown) (unknown) [place] teeth (units (u nknown) date) extracted unknown) (unknown) (no (unknown) (unknown) Would like (units (unk nown) date) referral unknown) to [facility] grade breast pump at (unknown) (no (unknown) [...] date) She is having a unknown) few [place] contractions but denies (unknown) (no (unknown) [...] members: (units (unknown) date) spouse, family unknown) (mdpqpea-yi-ruk and his 3 children (moving out (unknown) [...] (units (unknown) date) check with surgery unknown) mangle feeder regarding November 24, 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 (units (unkn own) date) Although every unknown) effort is made to edit content, straight knife machine cutter errors (unknown) (no (unknown) (unknown) soon)) and [...] detector in home: unknown) Yes Result panel 173 (unknown) (no (unknown) (unknown) (no value) (units [...] own) date) unknown) (unknown) (no (unknown) (unknown) [place] (units ( unknown) date) [address] unknown) (unknown) (no (unknown) (unknown) Anaphylaxis (units [...] (unknown) (unknown) : 1990 (units (unknown) date) Acct:[id number] unknown) (unknown) (no (unknown) (unknown) Date of [...] wn) date) unknown) (unknown) (no (unknown) (unknown) [id number] (units (unk nown) date) unknown) (unknown) (no [...] (unknown) Patient: White (units (unknown) date) Brittany Linduqist MR#: unknown) (unknown) (no (unknown) (unknown) 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: (units ( unknown) date) Pediatric unknown) Associates [...] unknown) child: No (unknown) (no (unknown) (unknown) [facility] (units (unk nown) date) [place] 4 unknown) [...] part unknown) of son's genetic workup at [place] (unknown) (no (unknown) (unknown) Tobacco + (units [...] unknown) date) unknown) (unknown) (no (unknown) (unknown) [place] teeth (units (u nknown) date) extracted unknown) (unknown) (no (unknown) (unknown) Would like (units (unk nown) date) referral unknown) to [facility] and [facility] grade breast pump at (unknown) [...] college, certificate programs) (unknown) (no (unknown) (unknown) [employer] but they are (units (unknown) date) not [...] date) She is having a unknown) few [place] contractions but denies (unknown) (no (unknown) [...] members: (units (unknown) date) spouse, family unknown) (okmfgao-tx-qjw and his 3 children (moving out (unknown) (no (unknown) (unknown) housing: house (units (unknown) date) unknown) (unknown) (no (unknown) (unknown) in discharge. Her (units (unknown) date) baby remains unknown) active however. HUNTRE today is slightly increased (unknown) (no (unknown) [...] (units (unknown) date) check with surgery unknown) mangle feeder regarding November 24, 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 (units (unkn own) date) Although every unknown) effort is made to edit content, straight knife machine cutter errors m (unknown) (no (unknown) (unknown) soon)) and (units (unk nown) date) children unknown) (unknown) (no (unknown) (unknown) [place] (units ( unknown) date) needs: No unknown) (unknown) (no (unknown) (unknown) substance use (units (u nknown) date) type: marijuana unknown) (in the past, not recently and not while ) (unknown) (no (unknown) (unknown) term [place] (units ( unknown) date) [place] unknown) (unknown) (no (unknown) (unknown) volume. The [...] detector in home: unknown) Yes Result panel 174 (unknown) (no date) (unknown) (unknown) 1.0 % [...] (unknown) 80.1 fl (unkn own) Result panel 175 (unknown) (no date) (unknown) (unknown) Negative (units (unkn own) unknown) (unknown) (no date) (unknown) (unknown) Negative (units (unkn own) unknown) Result panel 176 (unknown) (no date) (unknown) (unknown) A Positive (units (un known) unknown) (unknown) (no date) (unknown) (unknown) NEGATIVE (units (unkn own) unknown) Result panel 177 (unknown) (no (unknown) (unknown) [...] (unknown) date) unknown) (unknown) (no (unknown) (unknown) [place] 2 months (units (unknown) date) post-dates unknown) [...] (unknown) (unknown) : 1990 (units (unknown) date) Acct:[id number] unknown) (unknown) (no (unknown) (unknown) Date Patient [...] period () unknown) (unknown) (no (unknown) (unknown) Hematocrit 32.7 [...] (unknown) date) unknown) (unknown) (no (unknown) (unknown) [facility] (units (unknown) date) [address] unknown) [place] [address] (unknown) (no (unknown) (unknown) Laboratory (units (unk [...] date) 29.1 unknown) (unknown) (no (unknown) (unknown) [id number] (units (unk nown) date) unknown) (unknown) (no [...] date) problem unknown) (unknown) (no (unknown) (unknown) [place] # (Auto) 600 (units (unknown) date) unknown) (unknown) (no (unknown) (unknown) [place] % (Auto) 8.2 (units (unknown) date) unknown) [...] wn) date) unknown) (unknown) (no (unknown) (unknown) CUSTOMER SUPPORT TECHNICIAN History + (units (unknown) date) Physical unknown) [...] date) (ies) unknown) (unknown) (no (unknown) (unknown) [facility] (units (unk nown) date) [place] 4 unknown) [...] wn) date) unknown) (unknown) (no (unknown) (unknown) [place] teeth (units (u nknown) date) extracted unknown) [...] (unkn own) date) members: spouse, unknown) family (pluwqzi-mx-kik and his 3 children (moving (unknown) (no [...] (no (unknown) (unknown) prenat.vits,alexey,m (units (unknown) date) se-tcti-veahx 1 unknown) tab PO DAILY 04/22/22 11/01/22 [...] detector in home: unknown) Yes Result panel 178 (unknown) (no (unknown) (unknown) [...] (unknown) date) unknown) (unknown) (no (unknown) (unknown) [place] 2 months (units (unknown) date) post-dates unknown) [...] (unknown) (unknown) : 1990 (units (unknown) date) Acct:[id number] unknown) (unknown) (no (unknown) (unknown) Date Patient [...] (unknown) date) unknown) (unknown) (no (unknown) (unknown) [facility] (units (unknown) date) [address] [place] [address] (unknown) (no (unknown) (unknown) Laboratory (units (unk nown) date) Results - last unknown) hr (unknown) (no (unknown) (unknown) Labs (units (unkno wn) date) unknown) (unknown) (no (unknown) (unknown) Labs: (units (unkno wn) date) unknown) (unknown) (no (unknown) (unknown) Last OB Lab (units (un known) date) Results: unknown) (unknown) (no (unknown) (unknown) Lymph # (Auto) (units (unknown) date) 2000 unknown) (unknown) (no (unknown) (unknown) Lymph % (Auto) (units (unknown) date) 29.1 unknown) (unknown) (no (unknown) (unknown) [id number] (units (unk nown) date) unknown) (unknown) (no [...] date) problem unknown) (unknown) (no (unknown) (unknown) [place] # (Auto) 600 (units (unknown) date) unknown) (unknown) (no (unknown) (unknown) [place] % (Auto) 8.2 (units (unknown) date) unknown) [...] wn) date) unknown) (unknown) (no (unknown) (unknown) CUSTOMER SUPPORT TECHNICIAN History + (units (unknown) date) Physical unknown) [...] date) (ies) unknown) (unknown) (no (unknown) (unknown) [facility] (units (unk nown) date) [place] 4 unknown) [...] wn) date) unknown) (unknown) (no (unknown) (unknown) [place] teeth (units (u nknown) date) extracted unknown) [...] (unkn own) date) members: spouse, unknown) family (tdpzbzc-pj-jgb and his 3 children (moving (unknown) (no [...] (no (unknown) (unknown) prenat.vits,alexey,m (units (unknown) date) nz-tuot-ykzru 1 unknown) tab PO DAILY 04/22/22 11/01/22 [...] detector in home: unknown) Yes Result panel 179 (unknown) (no (unknown) (unknown) (no value) (units [...] (unknown) date) unknown) (unknown) (no (unknown) (unknown) [place] 2 months (units (unknown) date) post-dates unknown) [...] (unknown) (unknown) : 1990 (units (unknown) date) Acct:[id number] unknown) (unknown) (no (unknown) (unknown) Date Patient [...] period () unknown) (unknown) (no (unknown) (unknown) Hematocrit 32.7 [...] (unknown) date) unknown) (unknown) (no (unknown) (unknown) [facility] (units (unknown) date) [address] unknown) [place] [address] (unknown) (no (unknown) (unknown) Laboratory (units (unk [...] date) 29.1 unknown) (unknown) (no (unknown) (unknown) [id number] (units (unk nown) date) unknown) (unknown) (no [...] date) problem unknown) (unknown) (no (unknown) (unknown) [place] # (Auto) 600 (units (unknown) date) unknown) (unknown) (no (unknown) (unknown) [place] % (Auto) 8.2 (units (unknown) date) unknown) [...] wn) date) unknown) (unknown) (no (unknown) (unknown) CUSTOMER SUPPORT TECHNICIAN History + (units (unknown) date) Physical unknown) [...] date) (ies) unknown) (unknown) (no (unknown) (unknown) [facility] (units (unk nown) date) [place] 4 unknown) [...] wn) date) unknown) (unknown) (no (unknown) (unknown) [place] teeth (units (u nknown) date) extracted unknown) [...] (unkn own) date) members: spouse, unknown) family (okwuwub-dy-wjh and his 3 children (moving (unknown) (no [...] (no (unknown) (unknown) prenat.vits,alexey,m (units (unknown) date) zv-ooyi-bdzpb 1 unknown) tab PO DAILY 04/22/22 11/01/22 [...] (unknown) term [place] (units ( unknown) date) [place] unknown) (unknown) (no (unknown) (unknown) was held [...] detector in home: unknown) Yes Result panel 180 (unknown) (no (unknown) (unknown) [...] (unknown) (unknown) : 1990 (units (unknown) date) Acct:[id number] unknown) (unknown) (no (unknown) (unknown) Date of [...] unknown) date) unknown) (unknown) (no (unknown) (unknown) [facility] (units (unknown) date) [address] unknown) [place] [address] (unknown) (no (unknown) (unknown) [id number] (units (unk nown) date) unknown) (unknown) (no [...] (unknown) date) current SOC unknown) Result panel 181 (unknown) (no (unknown) (unknown) [...] unknown) continuous drainage) (unknown) (no (unknown) (unknown) Results Engineer: (units (unk nown) date) [place] unknown) (unknown) (no (unknown) [...] (unknown) (unknown) : 1990 (units (unknown) date) Acct:[id number] unknown) (unknown) (no (unknown) (unknown) Date of Service: (units (unknown) date) 11/24/22 unknown) (unknown) (no (unknown) (unknown) Date of (units (unkno wn) date) procedure: unknown) 11/24/22 (unknown) (no [...] Ketorolac and Pitocin (unknown) (no (unknown) (unknown) [facility] (units (unknown) date) [address] [place] [address] unknown) [place] [address] (unknown) (no (unknown) (unknown) Live female (units (un known) date) in the MYRTLE unknown) presentation (unknown) (no (unknown) (unknown) Lysis of (units (unkno wn) date) adhesions unknown) (unknown) (no (unknown) (unknown) [id number] (units (unk nown) date) unknown) (unknown) (no (unknown) (unknown) Morbid obesity (units (unknown) date) unknown) (unknown) (no (unknown) (unknown) [place] Baby (units (u nknown) date) unknown) (unknown) [...] (unknown) Reason for (units (unk nown) date) Results Engineer: unknown) (unknown) (no (unknown) (unknown) Repeat (units (unkno wn) date) low-transverse unknown) section (unknown) (no (unknown) (unknown) Same procedure (units (unknown) date) as scheduled: Yes unknown) (unknown) (no (unknown) (unknown) Signed By: (units (unk nown) date) unknown) (unknown) (no (unknown) (unknown) Specimen(s): (units (u nknown) date) cord blood, cord unknown) pH and placenta (unknown) (no (unknown) (unknown) Surgeon: (units (unkno wn) date) Josefina Baumann unknown) (unknown) (no (unknown) (unknown) The cafe assistant (units ( unknown) date) was necessary [...] fascial incision unknown) was grasped with a [place] clamps, elevated, and (unknown) (no (unknown) (unknown) [...] (unknown) delivery of the (units (unknown) date) infant with unknown) fundal pressure. She assisted with closure with (unknown) (no (unknown) (unknown) dissected off (units ( unknown) date) sharply and unknown) bluntly. The rectus muscles were in the (unknown) (no (unknown) (unknown) double clamped (units (unknown) date) and cut after 1 unknown) minute. The was handed off to waiting RN (unknown) (no (unknown) (unknown) entered sharply (units (unknown) date) with the unknown) [place] scissors. This incision was extended (unknown) (no (unknown) (unknown) imbricating (units (un known) date) layer. A unknown) qcwbna-gn-nleya suture was placed on the right edge [...] was grasped with (units (unknown) date) a [place] clamps, unknown) elevated, and the underlying rectus [...] of 3-0 Vicryl were placed Result panel 182 (unknown) (no date) (unknown) (unknown) 26.2 % (unkn own) (unknown) (no date) (unknown) (unknown) 8.5 g/dl (unkn own) Result panel 183 (unknown) (no (unknown) (unknown) (no value) (units [...] reach the (unknown) (no (unknown) (unknown) : [id number] (units (u nknown) date) unknown) (unknown) (no (unknown) (unknown) Age/Sex: 32 / F (units (unknown) date) unknown) (unknown) (no (unknown) (unknown) Blood drawn by (units (unknown) date) RN using sterile unknown) technique (chloroprep for placement, all hubs (unknown) (no (unknown) (unknown) : 1990 (units (unknown) date) Acct:[id number] unknown) (unknown) (no (unknown) (unknown) Date of Service: (units (unknown) date) 11/26/22 unknown) (unknown) (no (unknown) (unknown) EPIDURAL BLOOD (units (unknown) date) PATCH unknown) (unknown) (no (unknown) (unknown) General (units (unkno wn) date) unknown) (unknown) (no (unknown) (unknown) HPI: POD#2 (units (unk nown) date) CSection, c/o GUNN. unknown) Onset roughly 24h after surgery, rated 8/10 when (unknown) (no (unknown) (unknown) [facility] (units (unknown) date) [address] unknown) [place] [address] (unknown) (no (unknown) (unknown) Licocaine local (units [...] patch with unknown) previous CS. Result panel 184 (unknown) (no (unknown) (unknown) (no value) (units [...] reach the (unknown) (no (unknown) (unknown) : [id number] (units (u nknown) date) unknown) (unknown) (no [...] (unknown) (unknown) : 1990 (units (unknown) date) Acct:[id number] unknown) (unknown) (no (unknown) (unknown) Date of [...] rated 8/10 when (unknown) (no (unknown) (unknown) [facility] (units (unknown) date) [address] unknown) [place] [address] (unknown) (no (unknown) (unknown) Licocaine local (units [...] date) By:<Electronicall unknown) y signed by Jaycob NorrisOKaye> (unknown) (no (unknown) (unknown) Small needle (units [...] (unknown) date) fever, chills unknown) Result panel 185 (unknown) (no (unknown) (unknown) (no value) (units (unk nown) date) unknown) (unknown) (no (unknown) (unknown) 11/28/22 (units (unkno wn) date) unknown) (unknown) (no (unknown) (unknown) 32y s/p (units (u nknown) date) csx4, c/b concern unknown) for low amniotic fluid, hypothyroid on 137 (100 (unknown) (no (unknown) (unknown) : [id number] (units (u nknown) date) unknown) (unknown) (no [...] own) date) unknown) (unknown) (no (unknown) (unknown) [place], [place] (units ( unknown) date) [address] unknown) (unknown) (no (unknown) (unknown) Anaphylaxis (units (un known) date) unknown) (unknown) (no (unknown) (unknown) Anesthesia (units (unk nown) date) unknown) (unknown) (no (unknown) (unknown) Attending Dr: (units ( unknown) date) Luisana Santos D.O. 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 (units (unknown) date) arthritis unknown) (unknown) (no (unknown) (unknown) Depression (units (unk nown) date) () unknown) (unknown) (no (unknown) (unknown) Dept at [...] (unkno wn) date) (post-traumatic unknown) stress disorder) () (unknown) (no (unknown) (unknown) Painful menstrual (units [...] frenotomy unknown) assessment (unknown) (no (unknown) (unknown) [place] teeth (units (u nknown) date) extracted unknown) [...] members: (units (unknown) date) spouse, family unknown) (jjnbvqy-fv-mgd and his 3 children (moving out (unknown) [...] unknown) effort is made to edit content, straight knife machine cutter errors (unknown) (no (unknown) (unknown) soon)) and [...] detector in home: unknown) Yes Result panel 186 (unknown) (no (unknown) (unknown) (no value) (units (unk nown) date) unknown) (unknown) (no (unknown) (unknown) 12/02/22 (units (unkno wn) date) unknown) (unknown) (no (unknown) (unknown) : [id number] (units (u nknown) date) unknown) (unknown) (no (unknown) (unknown) Age/Sex: 32 / F (units (unknown) date) Date of Service: unknown) (unknown) (no (unknown) (unknown) Allergies (units (unkn own) date) unknown) (unknown) (no (unknown) (unknown) [place], [place] (units ( unknown) date) [address] unknown) (unknown) (no (unknown) (unknown) Anaphylaxis (units (un known) date) unknown) (unknown) (no (unknown) (unknown) Attending Dr: (units ( unknown) date) [place] unknown) (unknown) (no (unknown) (unknown) : 1990 (units (unknown) date) Acct:[id number] unknown) (unknown) (no (unknown) (unknown) Dept at (units (unkno wn) date) . unknown) (unknown) (no (unknown) (unknown) Documented By: (units (unknown) date) [place] unknownRichard FINE 12/02/22 1425 (unknown) (no (unknown) (unknown) Draft (units (unkno wn) date) unknown) (unknown) (no (unknown) (unknown) [facility] (units (unknown) date[facility] unknown) (unknown) (no (unknown) (unknown) Intake Note: (units (u nknown) date) unknown) (unknown) (no (unknown) (unknown) Intake (units (unkno wn) date) unknown) (unknown) (no (unknown) (unknown) Loc: [facility] (units (unkno wn) date) unknown) (unknown) (no (unknown) (unknown) Nurse Office (units (u nknown) date) Visit unknown) (unknown) (no (unknown) (unknown) Patient: White (units (unknown) date) Brittany Lindquist C unknown) MR# (unknown) (no (unknown) (unknown) Pt is here today (units (unknown) date) for an aquacel unknown) removal. (unknown) (no (unknown) (unknown) Reason For Visit (units (unknown) date) unknown) (unknown) (no (unknown) (unknown) Signed By: (units (unk nown) date) unknown) (unknown) (no (unknown) (unknown) Smoking Status: (units (unknown) date) Former smoker unknown) (unknown) (no (unknown) (unknown) This note may (units ( unknown) date) have been all or unknown) partially generated using voice recognition (unknown) (no (unknown) (unknown) Tobacco Status (units (unknown) date) unknown) (unknown) (no (unknown) (unknown) Visit Reasons: (units (unknown) date) Aquacel removal unknown) (unknown) (no (unknown) (unknown) flaxseed Allergy (units (unknown) date) (Severe, Verified unknown) 11/01/22 11:31) (unknown) (no (unknown) (unknown) have occurred. (units (unknown) date) If there are any unknown) questions, please contact the Medical Records (unknown) (no (unknown) (unknown) may occur. (units (unk nown) date) Occasional unknown) wrong-word or 'sound-alike' substitutions may have (unknown) (no (unknown) (unknown) occurred due to (units (unknown) date) the inherent unknown) limitations of voice recognition software. Please (unknown) (no (unknown) (unknown) read the note (units ( unknown) date) carefully and unknown) recognize, using context, where these substitutions (unknown) (no (unknown) (unknown) software. (units (unkn own) date) Although every unknown) effort is made to edit content, straight knife machine cutter errors Result panel 187 (unknown) (no (unknown) (unknown) (no value) (units (unk nown) date) unknown) (unknown) (no (unknown) (unknown) COVID-19 (units (u nknown) date) unknown) (unknown) (no (unknown) (unknown) 12/02/22 (units (unkno wn) date) unknown) (unknown) (no (unknown) (unknown) : [id number] (units (u nknown) date) unknown) (unknown) (no (unknown) (unknown) Age/Sex: 32 / F (units (unknown) date) Date of Service: unknown) (unknown) (no (unknown) (unknown) Allergies (units (unkn own) date) unknown) (unknown) (no (unknown) (unknown) [place], [place] (units ( unknown) date) [id number] unknown) (unknown) (no (unknown) (unknown) Anaphylaxis (units (un known) date) unknown) (unknown) (no (unknown) (unknown) Attending Dr: (units ( unknown) date) Glen Ojeda unknown) (unknown) (no (unknown) (unknown) : 1990 (units (unknown) date) Acct:[id number] unknown) (unknown) (no (unknown) (unknown) Dept at (units (unkno wn) date) . unknown) (unknown) (no (unknown) (unknown) Documented By: (units (unknown) date) Glen Ojeda unknown) 12/02/22 1425 (unknown) (no (unknown) (unknown) Draft (units (unkno wn) date) unknown) (unknown) (no (unknown) (unknown) Evaluation/Scree (units (unknown) date) sharla for possible unknown) COVID-19 completed?: No (unknown) (no (unknown) (unknown) [facility] ([facility]) (unknown) (no (unknown) (unknown) Intake Note: (units (u nknown) date) unknown) (unknown) (no (unknown) (unknown) Intake (units (unkno wn) date) unknown) (unknown) (no (unknown) (unknown) Loc: [facility] (units (unkno wn) date) unknown) (unknown) (no (unknown) (unknown) Note (units (unkno wn) date) unknown) (unknown) (no (unknown) (unknown) Note: (units (unkno wn) date) unknown) (unknown) (no (unknown) (unknown) Nurse Office (units (u nknown) date) Visit unknown) (unknown) (no (unknown) (unknown) Patient: White (units (unknown) date) Brittany Lindquist C unknown) MR# (unknown) (no (unknown) (unknown) Pt is here today (units (unknown) date) for an aquacel unknown) removal. (unknown) (no (unknown) (unknown) Pt present for (units (unknown) date) aquacel removal. unknown) Pt denies any concerns with incision. Aquacel (unknown) (no (unknown) (unknown) Reason For Visit (units (unknown) date) unknown) (unknown) (no (unknown) (unknown) Signed By: (units (unk nown) date) unknown) (unknown) (no (unknown) (unknown) Smoking Status: (units (unknown) date) Former smoker unknown) (unknown) (no (unknown) (unknown) This note may (units ( unknown) date) have been all or unknown) partially generated using voice recognition (unknown) (no (unknown) (unknown) Tobacco Status (units (unknown) date) unknown) (unknown) (no (unknown) (unknown) Visit Reasons: (units (unknown) date) Aquacel removal unknown) (unknown) (no (unknown) (unknown) flaxseed Allergy (units (unknown) date) (Severe, Verified unknown) 11/01/22 11:31) (unknown) (no (unknown) (unknown) have occurred. (units (unknown) date) If there are any unknown) questions, please contact the Medical Records (unknown) (no (unknown) (unknown) may occur. (units (unk nown) date) Occasional unknown) wrong-word or 'sound-alike' substitutions may have (unknown) (no (unknown) (unknown) occurred due to (units (unknown) date) the inherent unknown) limitations of voice recognition software. Please (unknown) (no (unknown) (unknown) reach back out (units (unknown) date) to provider who unknown) performed blood patch to follow up on concerns. (unknown) (no (unknown) (unknown) read the note (units ( unknown) date) carefully and unknown) recognize, using context, where these substitutions (unknown) (no (unknown) (unknown) removed. Steri (units (unknown) date) strips clean, unknown) dry, and intact with some dried blood. Pt informed (unknown) (no (unknown) (unknown) software. (units (unkn own) date) Although every unknown) effort is made to edit content, straight knife machine cutter errors (unknown) (no (unknown) (unknown) to leave steri (units (unknown) date) strips on. Pt unknown) also had questions about pins and needles that go (unknown) (no (unknown) (unknown) up and down her (units (unknown) date) spine after unknown) receiving blood patch. Advised pt that she should Result panel 188 (unknown) (no (unknown) (unknown) (no value) (units (unk nown) date) unknown) (unknown) (no (unknown) (unknown) COVID-19 (units (u nknown) date) unknown) (unknown) (no (unknown) (unknown) 12/02/22 (units (unkno wn) date) unknown) (unknown) (no (unknown) (unknown) 12/23/22 1221 (units ( unknown) date) unknown) (unknown) (no (unknown) (unknown) : [id number] (units (u nknown) date) unknown) (unknown) (no (unknown) (unknown) Age/Sex: 32 / F (units (unknown) date) Date of Service: unknown) (unknown) (no (unknown) (unknown) Allergies (units (unkn own) date) unknown) (unknown) (no (unknown) (unknown) [place], [place] (units ( unknown) date) [id number] unknown) (unknown) (no (unknown) (unknown) Anaphylaxis (units (un known) date) unknown) (unknown) (no (unknown) (unknown) Attending Dr: (units ( unknown) date) Glen Ojeda unknown) (unknown) (no (unknown) (unknown) : 1990 (units (unknown) date) Acct:[id number] unknown) (unknown) (no (unknown) (unknown) Dept at (units (unkno wn) date) . unknown) (unknown) (no (unknown) (unknown) Documented By: (units (unknown) date) Glen Ojeda unknown) 12/02/22 8881 (unknown) (no (unknown) (unknown) Evaluation/Scree (units (unknown) date) sharla for possible unknown) COVID-19 completed?: No (unknown) (no (unknown) (unknown) [facility] unknown) (unknown) (no (unknown) (unknown) Intake Note: (units (u nknown) date) unknown) (unknown) (no (unknown) (unknown) Intake (units (unkno wn) date) unknown) (unknown) (no (unknown) (unknown) Loc: [facility] (units (unkno wn) date) unknown) (unknown) (no (unknown) (unknown) Note (units (unkno wn) date) unknown) (unknown) (no (unknown) (unknown) Note: (units (unkno wn) date) unknown) (unknown) (no (unknown) (unknown) Nurse Office (units (u nknown) date) Visit unknown) (unknown) (no (unknown) (unknown) Patient: Miguel A (units (unknown) date) Brittany Lindquist C unknown) MR# (unknown) (no (unknown) (unknown) Pt is here today (units (unknown) date) for an aquacel unknown) removal. (unknown) (no (unknown) (unknown) Pt present for (units (unknown) date) aquacel removal. unknown) Pt denies any concerns with incision. Aquacel (unknown) (no (unknown) (unknown) Reason For Visit (units (unknown) date) unknown) (unknown) (no (unknown) (unknown) Signed By: (units (unk nown) date) <Electronically unknown) signed by Glen Ojeda MD> (unknown) (no (unknown) (unknown) Signed (units (unkno wn) date) unknown) (unknown) (no (unknown) (unknown) Smoking Status: (units (unknown) date) Former smoker unknown) (unknown) (no (unknown) (unknown) This note may (units ( unknown) date) have been all or unknown) partially generated using voice recognition (unknown) (no (unknown) (unknown) Tobacco Status (units (unknown) date) unknown) (unknown) (no (unknown) (unknown) Visit Reasons: (units (unknown) date) Aquacel removal unknown) (unknown) (no (unknown) (unknown) ay occur. (units (unkn own) date) Occasional unknown) wrong-word or 'sound-alike' substitutions may have (unknown) (no (unknown) (unknown) flaxseed Allergy (units (unknown) date) (Severe, Verified unknown) 11/01/22 11:31) (unknown) (no (unknown) (unknown) have occurred. (units (unknown) date) If there are any unknown) questions, please contact the Medical Records (unknown) (no (unknown) (unknown) occurred due to (units (unknown) date) the inherent unknown) limitations of voice recognition software. Please (unknown) (no (unknown) (unknown) reach back out (units (unknown) date) to provider who unknown) performed blood patch to follow up on concerns. (unknown) (no (unknown) (unknown) read the note (units ( unknown) date) carefully and unknown) recognize, using context, where these substitutions (unknown) (no (unknown) (unknown) removed. Steri (units (unknown) date) strips clean, unknown) dry, and intact with some dried blood. Pt informed (unknown) (no (unknown) (unknown) software. (units (unkn own) date) Although every unknown) effort is made to edit content, straight knife machine cutter errors m (unknown) (no (unknown) (unknown) to leave steri (units (unknown) date) strips on. Pt unknown) also had questions about pins and needles that go (unknown) (no (unknown) (unknown) up and down her (units (unknown) date) spine after unknown) receiving blood patch. Advised pt that she should Result panel 189 (unknown) (no (unknown) (unknown) (no value) (units [...] (unknown) (no (unknown) (unknown) (+49 lb) 112/68 N (units (unknown) date) unknown) (unknown) (no (unknown) (unknown) (+6 lb) 108/68 N (units (unknown) date) unknown) (unknown) (no (unknown) (unknown) Genetic (units (unkn own) date) Screening/Teratolo unknown) gy Counseling - Includes patient, baby's father, or (unknown) (no (unknown) (unknown) -?-?-?-?-?-?-?-?- (units (unknown) date) ?-?-?-? unknown) (unknown) (no (unknown) (unknown) .54 cm 1 week (units ( unknown) date) unknown) (unknown) (no (unknown) (unknown) 11/24/22 (units (unkno wn) date) unknown) (unknown) (no (unknown) (unknown) 01/05/23 (units (unkno wn) date) unknown) (unknown) (no (unknown) (unknown) 01/05/23] (units (unkn own) date) unknown) (unknown) (no (unknown) (unknown) 01/24/14 [...] wn) date) unknown) (unknown) (no (unknown) (unknown) 14:50 (units (unkno wn) date) unknown) (unknown) (no [...] wn) date) unknown) (unknown) (no (unknown) (unknown) 6 week (units (unknown) date) unknown) (unknown) (no (unknown) (unknown) : [id number] (units (u nknown) date) unknown) (unknown) (no [...] own) date) unknown) (unknown) (no (unknown) (unknown) SIL Rocha (units ( unknown) date) [id number] unknown) (unknown) (no (unknown) (unknown) Anaphylaxis (units [...] (units (unknown) date) 11/30/22 LMP unknown) (Certain) 45w 1d (unknown) (no (unknown) (unknown) Current (units (unknown) date) History unknown) (unknown) (no (unknown) (unknown) DNA (units (unkno wn) date) unknown) (unknown) (no (unknown) (unknown) : 1990 (units (unknown) date) Acct:[id number] unknown) (unknown) (no (unknown) (unknown) Date of [...] (unknown) (unknown) Delivery Date: (units (unknown) date) 11/24/22 unknown) (unknown) (no (unknown) (unknown) Delivery Date: (units [...] (units (unknown) date) Josefina Baumann unknownRichard FINE 01/05/23 1446 (unknown) (no (unknown) (unknown) Draft (units (unkno [...] Multiple births unknown) (unknown) (no (unknown) (unknown) : 5 (units (unk nown) date) unknown) (unknown) (no (unknown) (unknown) HIV risk [...] date) surgery unknown) (unknown) (no (unknown) (unknown) History/Interim (units (unknown) date) Details unknown) (unknown) (no (unknown) (unknown) Hospital: (units [...] date) unknown) (unknown) (no (unknown) (unknown) Infant (units (u nknown) date) Weight: 7# 12oz unknown) (unknown) (no (unknown) (unknown) Infant will be (units (unknown) date) adopted?: no unknown) (unknown) (no (unknown) (unknown) 's Sex: (units ( unknown) date) Male unknown) (unknown) (no (unknown) (unknown) Infection History [...] wn) date) unknown) (unknown) (no (unknown) (unknown) Marital [...] HUNTER unknown) 20.14cm (unknown) (no (unknown) (unknown) N Yes no 152 42 (units (unknown) date) Vertex absent GBS unknown) NEGATIVE (unknown) (no (unknown) (unknown) Nearsightedness (units (unknown) date) unknown) (unknown) (no (unknown) (unknown) Notes (units (unkno wn) date) unknown) (unknown) (no (unknown) (unknown) Number of Living (units (unknown) date) Children 3 unknown) (unknown) (no (unknown) (unknown) Number of Weeks (units (unknown) date) Post : 6 unknown) (unknown) (no (unknown) (unknown) Number of [...] unknown) abortions 1 (unknown) (no (unknown) (unknown) Para: 4 (units (unkno wn) date) unknown) (unknown) (no (unknown) (unknown) Partner history [...] Lindquist MR# unknown) (unknown) (no (unknown) (unknown) 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: (units ( unknown) date) Pediatric unknown) [facility] (unknown) (no (unknown) (unknown) Personal history (units (unknown) date) of STD: denies hx unknown) (unknown) (no (unknown) (unknown) Personal history (units (unknown) date) of genital herpes: unknown) No (unknown) (no (unknown) (unknown) Planned repeat (units (unknown) date) C/S, 11/24/22 unknown) (unknown) (no (unknown) (unknown) Polyhydramnios (units (unknown) date) unknown) (unknown) (no (unknown) (unknown) Post (units (un known) date) unknown) (unknown) (no (unknown) (unknown) Postive [...] unknown) child: No (unknown) (no (unknown) (unknown) [place] (units (unk nown) date) [place] 4 unknown) [...] part unknown) of son's genetic workup at [place] (unknown) (no (unknown) (unknown) Tobacco + (units (unkn own) date) Substance Use unknown) (unknown) (no (unknown) (unknown) Tobacco Status (units (unknown) date) unknown) (unknown) (no (unknown) (unknown) Type of Delivery: (units (unknown) date) repeat C/S unknown) (unknown) (no (unknown) (unknown) Type(s) of [...] MD (unknown) (no (unknown) (unknown) Visit Reasons: 6 (units (unknown) date) week PP *no auth unknown) reqd (unknown) (no (unknown) (unknown) Vitals (units (unkno wn) date) unknown) (unknown) (no (unknown) (unknown) WG (units (unkno wn) date) unknown) (unknown) (no (unknown) (unknown) [place] teeth (units (u nknown) date) extracted unknown) (unknown) (no (unknown) (unknown) Would like (units (unk nown) date) referral unknown) to [facility] grade breast pump at (unknown) (no (unknown) [...] date) female unknown) (unknown) (no (unknown) (unknown) citalopram 10 mg (units (unknown) date) tablet (Celexa) 20 unknown) mg PO DAILY #60 tabs 12/07/22 [Rx Confirmed (unknown) (no (unknown) (unknown) conditions, GJB-2 (units [...] ea unknown) topical .prn #1 ea 11/01/22 [Rx Confirmed (unknown) (no (unknown) (unknown) during the past [...] Allergy (units (unknown) date) (Severe, Verified unknown) 01/05/23 14:49) (unknown) (no (unknown) (unknown) flu or covid [...] date) She is having a unknown) few [place] contractions but denies (unknown) (no (unknown) [...] members: (units (unknown) date) spouse, family unknown) ([id number] and his 3 children (moving out (unknown) [...] wn) date) unknown) (unknown) (no (unknown) (unknown) last pap: 1 year (units (unknown) date) ago, NIL, no hx unknown) abnormal (unknown) (no (unknown) (unknown) levothyroxine 137 (units [...] (no (unknown) (unknown) prenat.vits,alexey,m (units (unknown) date) [id number] 1 unknown) tab PO DAILY 04/22/22 [History [...] (units (unknown) date) check with surgery unknown) mangle feeder regarding November 24, 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 (units (unkn own) date) Although every unknown) effort is made to edit content, straight knife machine cutter errors (unknown) (no (unknown) (unknown) soon)) and [...] detector in home: unknown) Yes Result panel 190 (unknown) (no (unknown) (unknown) (no value) (units [...] (unknown) (no (unknown) (unknown) (+49 lb) 112/68 N (units (unknown) date) unknown) (unknown) (no (unknown) (unknown) (+6 lb) 108/68 N (units (unknown) date) unknown) (unknown) (no (unknown) (unknown) Genetic (units (unkn own) date) Screening/Teratolo unknown) gy Counseling - Includes patient, baby's father, or (unknown) (no (unknown) (unknown) -?-?-?-?-?-?-?-?- (units (unknown) date) ?-?-?-? unknown) (unknown) (no (unknown) (unknown) .54 cm 1 week (units ( unknown) date) unknown) (unknown) (no (unknown) (unknown) 01/05/23 (units (unkno wn) date) unknown) (unknown) (no (unknown) (unknown) 01/05/23] (units (unkn own) date) unknown) (unknown) (no (unknown) (unknown) 01/24/14 [...] wn) date) unknown) (unknown) (no (unknown) (unknown) 14:50 (units (unkno wn) date) unknown) (unknown) (no [...] wn) date) unknown) (unknown) (no (unknown) (unknown) 6 week (units (unkno wn) date) - no unknown) plans at this time for contraception (unknown) (no (unknown) (unknown) : [id number] (units (u nknown) date) unknown) (unknown) (no [...] own) date) unknown) (unknown) (no (unknown) (unknown) [place], [place] (units ( unknown) date) [id number] unknown) (unknown) (no (unknown) (unknown) Anaphylaxis (units [...] Baumann unknown) (unknown) (no (unknown) (unknown) BMI 46.8 (units (unkno wn) date) unknown) (unknown) (no (unknown) (unknown) BP 106/64 (units (unkn own) date) unknown) (unknown) (no (unknown) (unknown) Yonis 2 months (units (unknown) date) post-dates unknown) induction (unknown) (no (unknown) (unknown) (units (unkno wn) date) Plan/Preferences unknown) (unknown) (no (unknown) (unknown) Planning (units (unknown) date) unknown) (unknown) (no (unknown) (unknown) control (units ( unknown) date) method:: none unknown) (unknown) (no (unknown) (unknown) Blood Pressure [...] (units (unknown) date) 11/30/22 LMP unknown) (Certain) 45w 1d (unknown) (no (unknown) (unknown) Current (units (unknown) date) History unknown) (unknown) (no (unknown) (unknown) DNA (units (unkno wn) date) unknown) (unknown) (no (unknown) (unknown) : 1990 (units (unknown) date) Acct:[id number] unknown) (unknown) (no (unknown) (unknown) Date of [...] (unknown) (unknown) Delivery Date: (units (unknown) date) 11/24/22 unknown) (unknown) (no (unknown) (unknown) Delivery Date: (units [...] (units (unknown) date) Josefina Baumann unknownRichard FINE 01/05/23 1446 (unknown) (no (unknown) (unknown) Draft (units (unkno [...] date) same unknown) (unknown) (no (unknown) (unknown) Feeding: breast (units (unknown) date) unknown) (unknown) (no (unknown) (unknown) [facility] [...] Multiple births unknown) (unknown) (no (unknown) (unknown) : 5 (units (unk nown) date) unknown) (unknown) (no (unknown) (unknown) HIV risk [...] date) surgery unknown) (unknown) (no (unknown) (unknown) History/Interim (units (unknown) date) Details unknown) (unknown) (no (unknown) (unknown) Hospital: (units [...] known) date) unknown) (unknown) (no (unknown) (unknown) (units (u nknown) date) Weight: 7# 12oz unknown) (unknown) (no (unknown) (unknown) [place] (units (unknown) date) Sleep: 4hours unknown) (unknown) (no (unknown) (unknown) Recent (units ( unknown) date) Weight: 10lb 1oz unknown) (unknown) (no (unknown) (unknown) Infant will be (units (unknown) date) adopted?: no unknown) (unknown) (no (unknown) (unknown) Infant's Name: (units (unknown) date) Carlene unknown) (unknown) (no (unknown) (unknown) Infant's Sex: (units ( unknown) date) Female unknown) (unknown) (no (unknown) (unknown) Infection History [...] wn) date) unknown) (unknown) (no (unknown) (unknown) Interim (units ( unknown) date) control method: unknown) Reports none (unknown) (no (unknown) (unknown) LM (units (unkno [...] wn) date) unknown) (unknown) (no (unknown) (unknown) Marital [...] HUNTER unknown) 20.14cm (unknown) (no (unknown) (unknown) N Yes no 152 42 (units (unknown) date) Vertex absent GBS unknown) NEGATIVE (unknown) (no (unknown) (unknown) Nearsightedness (units (unknown) date) unknown) (unknown) (no (unknown) (unknown) Notes (units (unkno wn) date) unknown) (unknown) (no (unknown) (unknown) Number of Living (units (unknown) date) Children 3 unknown) (unknown) (no (unknown) (unknown) Number of Weeks (units (unknown) date) Post : 6 unknown) (unknown) (no (unknown) (unknown) Number of [...] (-2019) unknown) (unknown) (no (unknown) (unknown) Para 4 (units (unkno wn) date) Spontaneous unknown) abortions 1 (unknown) (no (unknown) (unknown) Para: 4 (units (unkno wn) date) unknown) (unknown) (no (unknown) (unknown) Partner history [...] Lindquist MR# unknown) (unknown) (no (unknown) (unknown) 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: (units ( unknown) date) Pediatric unknown) Associates [...] (unknown) date) unknown) (unknown) (no (unknown) (unknown) Post Order (units (unknown) date) Checklist unknown) (unknown) (no (unknown) (unknown) Post (units (un known) date) unknown) (unknown) (no (unknown) (unknown) Postive [...] unknown) child: No (unknown) (no (unknown) (unknown) [place] (units (unk nown) date) [place] 4 unknown) (unknown) (no (unknown) (unknown) Providers (units (unkn own) date) unknown) (unknown) (no (unknown) (unknown) ROS (units (unkno wn) date) unknown) (unknown) (no (unknown) (unknown) RPR [...] part unknown) of son's genetic workup at [place] (unknown) (no (unknown) (unknown) Tobacco + (units (unkn own) date) Substance Use unknown) (unknown) (no (unknown) (unknown) Tobacco Status (units (unknown) date) unknown) (unknown) (no (unknown) (unknown) Type of Delivery: (units (unknown) date) repeat C/S unknown) (unknown) (no (unknown) (unknown) Type(s) of [...] MD (unknown) (no (unknown) (unknown) Visit Reasons: 6 (units (unknown) date) week PP *no auth unknown) reqd (unknown) (no (unknown) (unknown) Vitals (units (unkno wn) date) unknown) (unknown) (no (unknown) (unknown) WG (units (unkno wn) date) unknown) (unknown) (no (unknown) (unknown) Weight 273 lb (units ( unknown) date) unknown) (unknown) (no (unknown) (unknown) [place] teeth (units (u nknown) date) extracted unknown) (unknown) (no (unknown) (unknown) Would like (units (unk nown) date) referral unknown) to [facility] and [facility] breast pump at (unknown) [...] date) female unknown) (unknown) (no (unknown) (unknown) citalopram 10 mg (units (unknown) date) tablet (Celexa) 20 unknown) mg PO DAILY #60 tabs 12/07/22 [Rx Confirmed (unknown) (no (unknown) (unknown) conditions, GJB-2 (units [...] ea unknown) topical .prn #1 ea 11/01/22 [Rx Confirmed (unknown) (no (unknown) (unknown) during the past [...] Allergy (units (unknown) date) (Severe, Verified unknown) 01/05/23 14:49) (unknown) (no (unknown) (unknown) flu or covid [...] date) She is having a unknown) few [place] contractions but denies (unknown) (no (unknown) (unknown) [...] members: (units (unknown) date) spouse, family unknown) ([id number]-uf-xfz and his 3 children (moving out (unknown) [...] wn) date) unknown) (unknown) (no (unknown) (unknown) last pap: 1 year (units (unknown) date) ago, NIL, no hx unknown) abnormal (unknown) (no (unknown) (unknown) levothyroxine 137 (units [...] and Rubella Immunization (unknown) (no (unknown) (unknown) prenat.alexey tony m (units (unknown) date) [id number] 1 unknown) tab PO DAILY 04/22/22 [History [...] (units (unknown) date) check with surgery unknown) mangle feeder regarding November 24, 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 (units (unkn own) date) Although every unknown) effort is made to edit content, straight knife machine cutter errors (unknown) (no (unknown) (unknown) soon)) and (units (unk nown) date) children unknown) (unknown) (no (unknown) (unknown) special [place] (units ( unknown) date) needs: No unknown) (unknown) (no (unknown) (unknown) substance use (units (u nknown) date) type: marijuana unknown) (in the past, not recently and not while ) (unknown) (no (unknown) (unknown) term [place] (units ( unknown) date) [place] unknown) (unknown) (no (unknown) (unknown) volume. The [...] detector in home: unknown) Yes Result panel 191 (unknown) (no (unknown) (unknown) (no value) (units (unk nown) date) unknown) (unknown) (no (unknown) (unknown) 'syndrome';) (units (u nknown) date) unknown) (unknown) (no (unknown) (unknown) (+11 lb) 112/62 N (units (unknown) date) unknown) (unknown) (no (unknown) (unknown) (+13 lb) 118/68 N (units (unknown) date) unknown) (unknown) (no (unknown) (unknown) (+18 lb) 106/64 (units (unknown) date) unknown) (unknown) (no (unknown) [...] (unknown) (no (unknown) (unknown) (+49 lb) 112/68 N (units (unknown) date) unknown) (unknown) (no (unknown) (unknown) (+6 lb) 108/68 N (units (unknown) date) unknown) (unknown) (no (unknown) (unknown) Genetic (units (unkn own) date) Screening/Teratolo unknown) gy Counseling - Includes patient, baby's father, or (unknown) (no (unknown) (unknown) -?-?-?-?-?-?-?-?- (units (unknown) date) ?-?-?-? unknown) (unknown) (no (unknown) (unknown) .54 cm 1 week (units ( unknown) date) unknown) (unknown) (no (unknown) (unknown) 01/05/23 (units (unkno wn) date) unknown) (unknown) (no (unknown) (unknown) 01/05/23] (units (unkn own) date) unknown) (unknown) (no (unknown) (unknown) 01/24/14 [...] wn) date) unknown) (unknown) (no (unknown) (unknown) 14:50 (units (unkno wn) date) unknown) (unknown) (no [...] unknown) date) unknown) (unknown) (no (unknown) (unknown) 45w 1d 273 lb (units ( unknown) date) unknown) (unknown) (no (unknown) (unknown) 5 wks (units (unkno wn) date) unknown) (unknown) (no (unknown) (unknown) 6 week (units (unkno wn) date) - no unknown) plans at this time for contraception (unknown) (no (unknown) (unknown) : [id number] (units (u nknown) date) unknown) (unknown) (no [...] (unknown) [place], [place] (units ( unknown) date) [id number] unknown) (unknown) (no (unknown) (unknown) Anaphylaxis (units [...] Baumann unknown) (unknown) (no (unknown) (unknown) BMI 46.8 (units (unkno wn) date) unknown) (unknown) (no (unknown) (unknown) BP 106/64 (units (unkn own) date) unknown) (unknown) (no (unknown) (unknown) [place] 2 months (units (unknown) date) post-dates unknown) induction (unknown) (no (unknown) (unknown) (units (unkno wn) date) Plan/Preferences unknown) (unknown) (no (unknown) (unknown) Planning (units (unknown) date) unknown) (unknown) (no (unknown) (unknown) control (units ( unknown) date) method:: none unknown) (unknown) (no (unknown) (unknown) Bladder: Reports (units (unknown) date) emptying; Denies unknown) pain with urination, urge incontinence or (unknown) (no (unknown) (unknown) Bleeding: No (units (u nknown) date) unknown) (unknown) (no (unknown) (unknown) Blood Pressure (units (unknown) date) Location Lt unknown) brachial (unknown) (no (unknown) (unknown) Blood (units (unkno wn) date) transfusions?: yes unknown) (Never had but would accept ) (unknown) (no (unknown) (unknown) Blues/Depression/ (units (unknown) date) Anxiety: Yes unknown) Blues/Depression Branch: Reports easily crying, (unknown) (no (unknown) (unknown) Bowel: Reports (units (unknown) date) daily and stool unknown) soft; Denies constipation or stool hard (unknown) (no (unknown) (unknown) Breastfeed Preg (units (unknown) date) Comp Name unknown) (unknown) (no (unknown) (unknown) 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) unknown) (unknown) (no (unknown) (unknown) Children's (units (unk nown) date) unknown) (unknown) (no (unknown) (unknown) Current Estimate (units (unknown) date) 11/30/22 LMP unknown) (Certain) 45w 1d (unknown) (no (unknown) (unknown) Current (units (unknown) date) History unknown) (unknown) (no (unknown) (unknown) DNA (units (unkno wn) date) unknown) (unknown) (no (unknown) (unknown) : 1990 (units (unknown) date) Acct:[id number] unknown) (unknown) (no (unknown) (unknown) Date of [...] (unknown) (unknown) Delivery Date: (units (unknown) date) 11/24/22 unknown) (unknown) (no (unknown) (unknown) Delivery Date: (units [...] By: (units (unknown) date) [place] Baumann unknown) 01/05/23 1446 (unknown) (no (unknown) (unknown) Draft (units (unkno [...] date) same unknown) (unknown) (no (unknown) (unknown) Feeding: breast (units (unknown) date) unknown) (unknown) (no (unknown) (unknown) [facility] [...] Multiple births unknown) (unknown) (no (unknown) (unknown) : 5 (units (unk nown) date) unknown) (unknown) (no (unknown) (unknown) HIV risk [...] date) surgery unknown) (unknown) (no (unknown) (unknown) History/Interim (units (unknown) date) Details unknown) (unknown) (no (unknown) (unknown) Hospital: (units [...] date) unknown) (unknown) (no (unknown) (unknown) Infant (units (u nknown) date) Weight: 7# 12oz unknown) (unknown) (no (unknown) (unknown) Infant Longest (units (unknown) date) Sleep: 4hours unknown) (unknown) (no (unknown) (unknown) Recent (units ( unknown) date) Weight: 10lb 1oz unknown) (unknown) (no (unknown) (unknown) Infant will be (units (unknown) date) adopted?: no unknown) (unknown) (no (unknown) (unknown) Infant's Name: (units (unknown) date) Carlene unknown) (unknown) (no (unknown) (unknown) 's Sex: (units ( unknown) date) Female unknown) (unknown) (no (unknown) (unknown) Infection History [...] wn) date) unknown) (unknown) (no (unknown) (unknown) Wright: (units (u nknown) date) Reports resumed; unknown) Denies issues (unknown) (no (unknown) (unknown) Interim (units ( unknown) date) control method: unknown) Reports none (unknown) (no (unknown) (unknown) LM (units (unkno [...] wn) date) unknown) (unknown) (no (unknown) (unknown) Marital [...] HUNTER unknown) 20.14cm (unknown) (no (unknown) (unknown) N Yes no 152 42 (units (unknown) date) Vertex absent GBS unknown) NEGATIVE (unknown) (no (unknown) (unknown) Nearsightedness (units (unknown) date) unknown) (unknown) (no (unknown) (unknown) Notes (units (unkno wn) date) unknown) (unknown) (no (unknown) (unknown) Number of Living (units (unknown) date) Children 3 unknown) (unknown) (no (unknown) (unknown) Number of Weeks (units (unknown) date) Post : 6 unknown) (unknown) (no (unknown) (unknown) Number of [...] (-2019) unknown) (unknown) (no (unknown) (unknown) Para 4 (units (unkno wn) date) Spontaneous unknown) abortions 1 (unknown) (no (unknown) (unknown) Para: 4 (units (unkno wn) date) unknown) (unknown) (no (unknown) (unknown) Partner history [...] delivery: No (unknown) (no (unknown) (unknown) Patient: Miguel A (units (unknown) date) Brittany Lindquist MR# unknown) (unknown) (no (unknown) (unknown) 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: (units ( unknown) date) Pediatric unknown) Associates [...] (unknown) date) unknown) (unknown) (no (unknown) (unknown) Post Order (units (unknown) date) Checklist unknown) (unknown) (no (unknown) (unknown) Post (units (un known) date) unknown) (unknown) (no (unknown) (unknown) Postive screening (units (unknown) date) CF (In scans) unknown) (unknown) (no (unknown) (unknown) (units (unk nown) date) depression unknown) (unknown) (no (unknown) (unknown) (units (unkn own) date) Complications: low unknown) thyroid (unknown) (no (unknown) (unknown) History (units (unknown) [...] (unk nown) date) Provider: unknown) [place] Baumann Angella (unknown) (no (unknown) (unknown) Prior (units (unkno wn) date) GBS-Infected unknown) child: No (unknown) (no (unknown) (unknown) [place] (units (unk nown) date) [place] 4 unknown) (unknown) (no (unknown) (unknown) Providers (units (unkn own) date) unknown) (unknown) (no (unknown) (unknown) ROS (units (unkno wn) date) unknown) (unknown) (no (unknown) (unknown) RPR [...] part unknown) of son's genetic workup at [place] (unknown) (no (unknown) (unknown) Tobacco + (units (unkn own) date) Substance Use unknown) (unknown) (no (unknown) (unknown) Tobacco Status (units (unknown) date) unknown) (unknown) (no (unknown) (unknown) Type of Delivery: (units (unknown) date) repeat C/S unknown) (unknown) (no (unknown) (unknown) Type(s) of [...] MD (unknown) (no (unknown) (unknown) Visit Reasons: 6 (units (unknown) date) week PP *no auth unknown) reqd (unknown) (no (unknown) (unknown) Vitals (units (unkno wn) date) unknown) (unknown) (no (unknown) (unknown) WG (units (unkno wn) date) unknown) (unknown) (no (unknown) (unknown) Weight 273 lb (units ( unknown) date) unknown) (unknown) (no (unknown) (unknown) [place] teeth (units (u nknown) date) extracted unknown) (unknown) (no (unknown) (unknown) Would like (units (unk nown) date) referral unknown) to [facility] and [facility] grade breast pump at (unknown) [...] date) female unknown) (unknown) (no (unknown) (unknown) citalopram 10 mg (units (unknown) date) tablet (Celexa) 20 unknown) mg PO DAILY #60 tabs 12/07/22 [Rx Confirmed (unknown) (no (unknown) (unknown) conditions, GJB-2 (units [...] ea unknown) topical .prn #1 ea 11/01/22 [Rx Confirmed (unknown) (no (unknown) (unknown) during the past [...] progress Rosey unknown) (unknown) (no (unknown) (unknown) feeling (units (unkno wn) date) overwhelmed and unknown) other (not sleeping well) (unknown) (no (unknown) (unknown) felt rare (units [...] Allergy (units (unknown) date) (Severe, Verified unknown) 01/05/23 14:49) (unknown) (no (unknown) (unknown) flu or covid [...] date) She is having a unknown) few [place] contractions but denies (unknown) (no (unknown) [...] members: (units (unknown) date) spouse, family unknown) ([id number] and his 3 children (moving out (unknown) [...] wn) date) unknown) (unknown) (no (unknown) (unknown) last pap: 1 year (units (unknown) date) ago, NIL, no hx unknown) abnormal (unknown) (no (unknown) (unknown) levothyroxine 137 (units [...] (no (unknown) (unknown) prenat.vits,alexey,m (units (unknown) date) cm-nxce-hdpmf 1 unknown) tab PO DAILY 04/22/22 [History [...] (units (unknown) date) check with surgery unknown) mangle feeder regarding November 24, 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 (units (unkn own) date) Although every unknown) effort is made to edit content, straight knife machine cutter errors (unknown) (no (unknown) (unknown) soon)) and (units (unk nown) date) children unknown) (unknown) (no (unknown) (unknown) special [place] (units ( unknown) date) needs: No unknown) (unknown) (no (unknown) (unknown) stress (units (unkno wn) date) incontinence unknown) (unknown) (no (unknown) (unknown) substance use (units (u nknown) date) type: marijuana unknown) (in the past, not recently and not while ) (unknown) (no (unknown) (unknown) term [place] (units ( unknown) date) [place] unknown) (unknown) (no (unknown) (unknown) volume. The [...] detector in home: unknown) Yes Result panel 192 (unknown) (no (unknown) (unknown) (no value) (units (unk nown) date) unknown) (unknown) (no (unknown) (unknown) 'syndrome';) (units (u nknown) date) unknown) (unknown) (no (unknown) (unknown) (+11 lb) 112/62 N (units (unknown) date) unknown) (unknown) (no (unknown) (unknown) (+13 lb) 118/68 N (units (unknown) date) unknown) (unknown) (no (unknown) (unknown) (+18 lb) 106/64 (units (unknown) date) unknown) (unknown) (no (unknown) [...] (unknown) (no (unknown) (unknown) (+49 lb) 112/68 N (units (unknown) date) unknown) (unknown) (no (unknown) (unknown) (+6 lb) 108/68 N (units (unknown) date) unknown) (unknown) (no (unknown) (unknown) Genetic (units (unkn own) date) Screening/Teratolo unknown) gy Counseling - Includes patient, baby's father, or (unknown) (no (unknown) (unknown) -?-?-?-?-?-?-?-?- (units (unknown) date) ?-?-?-? unknown) (unknown) (no (unknown) (unknown) .54 cm 1 week (units ( unknown) date) unknown) (unknown) (no (unknown) (unknown) 01/05/23 (units (unkno wn) date) unknown) (unknown) (no (unknown) (unknown) 01/05/23] (units (unkn own) date) unknown) (unknown) (no (unknown) (unknown) 01/24/14 [...] wn) date) unknown) (unknown) (no (unknown) (unknown) 14:50 (units (unkno wn) date) unknown) (unknown) (no [...] unknown) date) unknown) (unknown) (no (unknown) (unknown) 45w 1d 273 lb (units ( unknown) date) unknown) (unknown) (no (unknown) (unknown) 5 wks (units (unkno wn) date) unknown) (unknown) (no (unknown) (unknown) 6 week (units (unkno wn) date) - no unknown) plans at this time for contraception (unknown) (no (unknown) (unknown) : [id number] (units (u nknown) date) unknown) (unknown) (no [...] own) date) unknown) (unknown) (no (unknown) (unknown) [place], [place] (units ( unknown) date) [id number] unknown) (unknown) (no (unknown) (unknown) Anaphylaxis (units [...] Baumann unknown) (unknown) (no (unknown) (unknown) BMI 46.8 (units (unkno wn) date) unknown) (unknown) (no (unknown) (unknown) BP 106/64 (units (unkn own) date) unknown) (unknown) (no (unknown) (unknown) Y[place] 2 months (units (unknown) date) post-dates unknown) induction (unknown) (no (unknown) (unknown) (units (unkno wn) date) Plan/Preferences unknown) (unknown) (no (unknown) (unknown) Planning (units (unknown) date) unknown) (unknown) (no (unknown) (unknown) control (units ( unknown) date) method:: none unknown) (unknown) (no (unknown) (unknown) Bladder: Reports (units (unknown) date) emptying; Denies unknown) pain with urination, urge incontinence or (unknown) (no (unknown) (unknown) Bleeding: No (units (u nknown) date) unknown) (unknown) (no (unknown) (unknown) Blood Pressure (units (unknown) date) Location Lt unknown) brachial (unknown) (no (unknown) (unknown) Blood (units (unkno wn) date) transfusions?: yes unknown) (Never had but would accept ) (unknown) (no (unknown) (unknown) Blues/Depression/ (units (unknown) date) Anxiety: Yes unknown) Blues/Depression Branch: Reports easily crying, (unknown) (no (unknown) (unknown) Bowel: Reports (units (unknown) date) daily and stool unknown) soft; Denies constipation or stool hard (unknown) (no (unknown) (unknown) Breastfeed Preg (units (unknown) date) Comp Name unknown) (unknown) (no (unknown) (unknown) 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) unknown) (unknown) (no (unknown) (unknown) Children's (units (unk nown) date) unknown) (unknown) (no (unknown) (unknown) Current Estimate (units (unknown) date) 11/30/22 LMP unknown) (Certain) 45w 1d (unknown) (no (unknown) (unknown) Current (units (unknown) date) History unknown) (unknown) (no (unknown) (unknown) DNA (units (unkno wn) date) unknown) (unknown) (no (unknown) (unknown) : 1990 (units (unknown) date) Acct:[id number] unknown) (unknown) (no (unknown) (unknown) Date of [...] (unknown) (unknown) Delivery Date: (units (unknown) date) 11/24/22 unknown) (unknown) (no (unknown) (unknown) Delivery Date: (units [...] (units (unknown) date) Josefina Baumann unknownRichard FINE 01/05/23 1446 (unknown) (no (unknown) (unknown) Draft (units (unkno [...] date) same unknown) (unknown) (no (unknown) (unknown) Feeding: breast (units (unknown) date) unknown) (unknown) (no (unknown) (unknown) [facility] [...] (unknown) date) unknown) (unknown) (no (unknown) (unknown) Free T4, Direct (units (unknown) date) Thyroxine Today unknown) E03.9 - Hypothyroidism, unspecified (unknown) (no (unknown) (unknown) (units (unkno wn) [...] Multiple births unknown) (unknown) (no (unknown) (unknown) : 5 (units (unk nown) date) unknown) (unknown) (no (unknown) (unknown) HIV risk [...] date) surgery unknown) (unknown) (no (unknown) (unknown) History/Interim (units (unknown) date) Details unknown) (unknown) (no (unknown) (unknown) Hospital: (units [...] date) unknown) (unknown) (no (unknown) (unknown) Infant (units (u nknown) date) Weight: 7# 12oz unknown) (unknown) (no (unknown) (unknown) Longest (units (unknown) date) Sleep: 4hours unknown) (unknown) (no (unknown) (unknown) Infant Recent (units ( unknown) date) Weight: 10lb 1oz unknown) (unknown) (no (unknown) (unknown) will be (units (unknown) date) adopted?: no unknown) (unknown) (no (unknown) (unknown) Infant's Name: (units (unknown) date) Carlene unknown) (unknown) (no (unknown) (unknown) 's Sex: (units ( unknown) date) Female unknown) (unknown) (no (unknown) (unknown) Infection History [...] wn) date) unknown) (unknown) (no (unknown) (unknown) Wright: (units (u nknown) date) Reports resumed; unknown) Denies issues (unknown) (no (unknown) (unknown) Interim (units ( unknown) date) control method: unknown) Reports none (unknown) (no (unknown) (unknown) LM (units (unkno [...] wn) date) unknown) (unknown) (no (unknown) (unknown) Marital [...] HUNTER unknown) 20.14cm (unknown) (no (unknown) (unknown) N Yes no 152 42 (units (unknown) date) Vertex absent GBS unknown) NEGATIVE (unknown) (no (unknown) (unknown) Nearsightedness (units (unknown) date) unknown) (unknown) (no (unknown) (unknown) Notes (units (unkno wn) date) unknown) (unknown) (no (unknown) (unknown) Number of Living (units (unknown) date) Children 3 unknown) (unknown) (no (unknown) (unknown) Number of Weeks (units (unknown) date) Post : 6 unknown) (unknown) (no (unknown) (unknown) Number of [...] () unknown) (unknown) (no (unknown) (unknown) Para 4 (units (unkno wn) date) Spontaneous unknown) abortions 1 (unknown) (no (unknown) (unknown) Para: 4 (units (unkno wn) date) unknown) (unknown) (no (unknown) (unknown) Partner history [...] Lindquist MR# unknown) (unknown) (no (unknown) (unknown) 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: (units ( unknown) date) Pediatric unknown) Associates [...] (unknown) date) unknown) (unknown) (no (unknown) (unknown) Post Order (units (unknown) date) Checklist unknown) (unknown) (no (unknown) (unknown) Post (units (un known) date) unknown) (unknown) (no (unknown) (unknown) Postive screening (units (unknown) date) CF (In scans) unknown) (unknown) (no (unknown) (unknown) (units (unk nown) date) depression unknown) (unknown) (no (unknown) (unknown) (units (unkn own) date) Complications: low unknown) thyroid (unknown) (no (unknown) (unknown) History (units (unknown) [...] unknown) child: No (unknown) (no (unknown) (unknown) [place] (units (unk nown) date) [place] 4 unknown) (unknown) (no (unknown) (unknown) Providers (units (unkn own) date) unknown) (unknown) (no (unknown) (unknown) ROS (units (unkno wn) date) unknown) (unknown) (no (unknown) (unknown) RPR [...] using voice recognition (unknown) (no (unknown) (unknown) Thyroid (units (unkno wn) date) Stimulating unknown) Hormone Today E03.9 - Hypothyroidism, unspecified (unknown) (no (unknown) (unknown) 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 [place] (unknown) (no (unknown) (unknown) Tobacco + (units (unkn own) date) Substance Use unknown) (unknown) (no (unknown) (unknown) Tobacco Status (units (unknown) date) unknown) (unknown) (no (unknown) (unknown) Type of Delivery: (units (unknown) date) repeat C/S unknown) (unknown) (no (unknown) (unknown) Type(s) of [...] MD (unknown) (no (unknown) (unknown) Visit Reasons: 6 (units (unknown) date) week PP *no auth unknown) reqd (unknown) (no (unknown) (unknown) Vitals (units (unkno wn) date) unknown) (unknown) (no (unknown) (unknown) WG (units (unkno wn) date) unknown) (unknown) (no (unknown) (unknown) Weight 273 lb (units ( unknown) date) unknown) (unknown) (no (unknown) (unknown) [place] teeth (units (u nknown) date) extracted unknown) (unknown) (no (unknown) (unknown) Would like (units (unk nown) date) referral unknown) to [facility] and [facility] grade breast pump at (unknown) [...] date) female unknown) (unknown) (no (unknown) (unknown) citalopram 10 mg (units (unknown) date) tablet (Celexa) 20 unknown) mg PO DAILY #60 tabs 12/07/22 [Rx Confirmed (unknown) (no (unknown) (unknown) conditions, GJB-2 (units [...] ea unknown) topical .prn #1 ea 11/01/22 [Rx Confirmed (unknown) (no (unknown) (unknown) during the past [...] progress Rosey unknown) (unknown) (no (unknown) (unknown) feeling (units (unkno wn) date) overwhelmed and unknown) other (not sleeping well) (unknown) (no (unknown) (unknown) felt rare (units [...] Allergy (units (unknown) date) (Severe, Verified unknown) 01/05/23 14:49) (unknown) (no (unknown) (unknown) flu or covid [...] date) She is having a unknown) few [place] contractions but denies (unknown) (no (unknown) [...] members: (units (unknown) date) spouse, family unknown) ([id number] and his 3 children (moving out (unknown) [...] wn) date) unknown) (unknown) (no (unknown) (unknown) last pap: 1 year (units (unknown) date) ago, NIL, no hx unknown) abnormal (unknown) (no (unknown) (unknown) levothyroxine 137 (units [...] (no (unknown) (unknown) prenat.vits,alexey,m (units (unknown) date) [id number] 1 unknown) tab PO DAILY 04/22/22 [History [...] (units (unknown) date) check with surgery unknown) mangle feeder regarding November 24, 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 (units (unkn own) date) Although every unknown) effort is made to edit content, straight knife machine cutter errors (unknown) (no (unknown) (unknown) soon)) and (units (unk nown) date) children unknown) (unknown) (no (unknown) (unknown) special [place] (units ( unknown) date) needs: No unknown) (unknown) (no (unknown) (unknown) stress (units (unkno wn) date) incontinence unknown) (unknown) (no (unknown) (unknown) substance use (units (u nknown) date) type: marijuana unknown) (in the past, not recently and not while ) (unknown) (no (unknown) (unknown) term [place] (units ( unknown) date) [place] unknown) (unknown) (no (unknown) (unknown) volume. The [...] detector in home: unknown) Yes Result panel 193 (unknown) (no date) (unknown) (unknown) 1.47 ng/dl (unkn own) Result panel 194 (unknown) (no date) (unknown) (unknown) < 0.015 uiu/ml (unkn own) (unknown) (no date) (unknown) (unknown) 1.47 ng/dl (unkn own) Social History date description facility 2022-10-18 00:00 Ex-smoker (finding) [facility] 2022-11-01 00:00 Ex-smoker (finding) [facility] 2022-11-15 00:00 Ex-smoker (finding) [facility] 2022-11-24 00:00 Ex-smoker (finding) [facility] 2022-11-28 00:00 Ex-smoker (finding) [facility] 2022-12-02 00:00 Ex-smoker (finding) [facility] 2023-01-05 00:00 Ex-smoker (finding) [facility] Vital Signs date measurement value units 2022-10-18 00:00 BMI 49.6 kg/m2 2022-10-18 00:00 [...] 37.17 C 2022-11-26 00:00 temperature_standard 98.9 F 2023-01-05 00:00 BMI 46.8 kg/m2 2023-01-05 00:00 BP_diastolic 64 mmHg 2023-01-05 00:00 BP_systolic 106 mmHg 2023-01-05 00:00 height_metric 162.56 cm 2023-01-05 00:00 height_standard 64 in 2023-01-05 00:00 weight_metric 123.83 kg 2023-01-05 00:00 weight_standard 273 lb
[2023-01-14] MEDS ORDERED: LIDOCAINE PATCH 5% TOP STA (09:09)
== END 2023-01-14 09:22 | disposition home or self-care (01) ==
LOC: ED 08:29
DX: O99.893 Other specified diseases and conditions complicating puerperium (principal); M54.50 Low back pain, unspecified
CPT/HCPCS: 99283; 99284; A9270

== ENCOUNTER 2023-02-15 15:20 | Outpatient (CLI) | payer MEDICAID ==
[2023-02-15 18:09] LABS: BASOPHILS # (AUTO) 0.1 10^3/uL (0.0-0.1); BASOPHILS % (AUTO) 0.6 %; EOSINOPHILS # (AUTO) 0.6 10^3/uL (0.0-0.7); EOSINOPHILS % (AUTO) 6.1 %; HCT - HEMATOCRIT 38.9 % (37.0-47.0); HGB - HEMOGLOBIN 11.7 g/dL (12.0-16.0); LYMPHOCYTES # (AUTO) 3.1 10^3/uL (1.5-3.5); LYMPHOCYTES % (AUTO) 31.9 %; MEAN CORPUSCULAR HEMOGLOBIN 24.7 pg (27.0-31.0); MEAN CORPUSCULAR HGB CONC 30.1 g/dL (32.0-36.0); MEAN CORPUSCULAR VOLUME 82.1 fL (81.0-99.0); MEAN PLATELET VOLUME 10.8 fL (7.9-10.8); MONOCYTES # (AUTO) 0.6 10^3/uL (0.0-1.0); MONOCYTES % (AUTO) 6.6 %; NEUTROPHILS # (AUTO) 5.3 10^3/uL (1.5-6.6); NEUTROPHILS % (AUTO) 54.7 %; PLT - PLATELET COUNT 379 10^3/uL (130-450); RED BLOOD COUNT 4.74 10^6/uL (4.20-5.40); RED CELL DISTRIBUTION WIDTH 14.7 % (12.0-15.0); WHITE BLOOD COUNT 9.6 x10^3/uL (4.8-10.8)
[2023-02-15 18:12] LABS: THYROID STIMULATING HORMONE 0.46 uIU/mL (0.34-5.60)
[2023-02-15 18:23] LABS: ALBUMIN 3.8 g/dL (3.2-5.5); ALKALINE PHOSPHATASE 106 IU/L (42-121); ALT ALANINE AMINOTRANSFERASE 26 IU/L (10-60); AST ASPARTATE AMINOTRANSFERASE 22 IU/L (10-42); BILIRUBIN,TOTAL 0.2 mg/dL (0.2-1.0); BUN - BLOOD UREA NITROGEN 11 mg/dL (6-20); CALCIUM 9.3 mg/dL (8.5-10.3); CARBON DIOXIDE - CO2 29 mmol/L (21-32); CHLORIDE 108 mmol/L (101-111); CHOL/HDL RATIO 3.3 (<4.4); CHOLESTEROL 190 mg/dL; CREATININE 0.8 mg/dL (0.4-1.0); GFR - MDRD 83 (>89); GLUCOSE 79 mg/dL (70-100); HDL CHOLESTEROL 58 mg/dL; LDL CHOLESTEROL,CALCULATED 64 mg/dL; LDL/HDL RATIO 1.1 (<4.4); POTASSIUM 3.8 mmol/L (3.5-5.0); SODIUM 142 mmol/L (135-145); TOTAL PROTEIN 7.5 g/dL (6.7-8.2); TRIGLYCERIDES 338 mg/dL; VLDL CHOLESTEROL 68 mg/dL
== END 2023-02-15 15:21 | disposition home or self-care (01) ==
LOC: LAB.N 15:20
PROVIDERS: ATTEND Nurse Practitioner Family
DX: E78.5 Hyperlipidemia, unspecified (principal); E03.9 Hypothyroidism, unspecified
CPT/HCPCS: 36415; 80053; 80061; 83721; 84443; 85025

== ENCOUNTER 2023-02-25 08:24 | Emergency (ER) | payer MEDICAID ==
[2023-02-25 08:30] VITALS: BP 133/63
--- NOTE | 2023-02-25 08:36 | ED Physician Documentation ---
PD HPI LOWER EXT INJURY - Stated complaint Stated Complaint: LT FOOT PX - Chief complaint Chief Complaint: Ext Problem - History obtained from History obtained from: Patient - History of Present Illness PD HPI LOW EXT INJURY LOCATION: Left, Foot (later aspect near base of 5th mt. No particular injury. Noted onset of pain gradually and has continued to worsen. Pain with fully pressure on outer foot. No skin sores.) Type of injury: Other (has young child in car seat/baby seat, so awkward carrying and walking often. But no obvious abrupt injury.). No: Fall, Twist Where injury occurred: Home Timing - onset: How many months ago (1) Timing - duration: Months (1) Timing - details: Gradual onset, Waxing and waning Worsened by: Moving, Palpating Associated symptoms: No: Weakness, Numbness, Swelling, Discolored Similar symptoms before: Has not had sx before Review of Systems Constitutional: denies: Fever, Chills Skin: denies: Rash, Lesions Neurologic: denies: Focal weakness, Numbness PD PAST MEDICAL HISTORY - Past Medical History Cardiovascular: None Respiratory: None Neuro: Migraines Endocrine/Autoimmune: HyPOthyroidism GI: None MANAGER STARS: None : None HEENT: None Psych: Depression, Anxiety, Panic attacks, ADD/ADHD Musculoskeletal: Chronic back pain Derm: None - Past Surgical History Past Surgical History: Yes /MANAGER STARS: section - Present Medications Home Medications: Ambulatory Orders Medication Instructions Recorded Confirmed Ibuprofen [Motrin] 800 mg PO Q8H PRN #30 tablet 10/04/21 01/14/23 Citalopram [CeleXA] 20 mg PO DAILY 01/14/23 01/14/23 HYDROcod/ACETAM 5/325 [Otis 5/325] 1 tablet PO Q6H PRN #14 tablet 01/14/23 Levothyroxine Sodium 137 mcg PO DAILY 01/14/23 01/14/23 [Levothyroxine] Lidocaine Patch 5% [Lidoderm Patch] 1 patch TOP DAILY PRN #10 patch 01/14/23 predniSONE [Deltasone] 20 mg PO [id number] #21 tab 01/14/23 HYDROcod/ACETAM 5/325 [Otis 5/325] 1 ea PO Q6H PRN #15 tablet 02/25/23 - Allergies Allergies/Adverse Reactions: Allergies Allergy/AdvReac Type Severity Reaction Status Date / Time No Known Drug Allergies Allergy Verified 02/25/23 08:30 - Social History Does the pt smoke?: No Smoking Status: Never smoker Does the pt drink ETOH?: No Does the pt have substance abuse?: No - Immunizations Immunizations are current?: Yes Immunizations: Other immun not current - POLST Patient has POLST: No PD ED PE NORMAL - Vitals Vital signs reviewed: Yes - General General: Alert and oriented X 3, Well developed/nourished - Derm Derm: Normal color, Warm and dry - Extremities Extremities: Other (left lateral foot on lateral aspect with focal tenderness at base of 5th mt. Not hurting with inversion stress.) - Neuro Neuro: Alert and oriented X 3, No motor deficit, No sensory deficit Results - Vitals Vitals: Vital Signs - 24 hr 02/25/23 08:28 Temperature 36.8 C Heart Rate 92 Respiratory 20 Rate Blood Pressure 133/63 H O2 Saturation 100 Oxygen O2 Source Room air - Rads (name of study) left foot Relevant Findings:: Prelim report reviewed, EMP independent interpretation of test (no fractures nor acute bony abnormality. To my reading, the 5th MT is somewhat rotated and laterally directed at distal end. No bunion per se. ), See rad report Procedures - General procedure General procedure: she has had a month of foot pain and tenderness. no infection and does not appear gout-like. Has had Ibuprofen and Tylenol without improvement. Has tried taping foot, which made it worse. Presume strain of ligaments in the area. Has focal tender and has tried several things and time. discussed with patient about next line of treatment would be local injection perhaps. She agreed and I injected locally at the 5th tarsal metatarsal area from dorsolateral direction with marcaine and Kenalog without problems. Given post op shoe. PD Medical Decision Making - ED course Complexity details: considered differential (foot tendonitis. No bony lesions on xray in my view. She has tried different shoes, flat shoes, NSAIDs and massage without improvement. Can try different NSAID and local injection. Post op shoe. ), d/w patient Departure - Departure Disposition: 01 Home, Self Care Clinical Impression: Foot tendinitis Condition: Stable Record reviewed to determine appropriate education?: Yes Instructions: ED Sprain Foot Follow-Up: Elaine Pena DPM [Provider Admit Priv/Credential] - Orville Maguire DPM [Physician No Access] - Prescriptions: HYDROcod/ACETAM 5/325 [Otis 5/325] 1 ea PO Q6H PRN #15 tablet PRN Reason: Pain Comments: See how you do with the firm soled shoe to reduce the amount of motion through the midfoot. We did do a local injection of triamcinolone with bupivacaine which is a steroid with numbing medicine. This should have an effect over several days to help with local inflammation. Your x-ray appears normal without any obvious bony abnormalities. The alignment of the fifth metatarsal however does skew laterally a little bit and this may be putting stress on the joint at the base of that bone. If this improves with the above interventions then no further treatment may be needed. Occasional ibuprofen or naproxen is reasonable. Add Tylenol every 4-6 hours if needed for pain or hydrocodone if needed for worse pain in the short-term. If this is not readily improving or it does improve and then back again fairly promptly then following up with a rn documentation specialist. There is one here in [place] and also one in [place]. I provided the phone numbers. I sent your prescription to your preferred pharmacy. I am prescribing a short course of narcotic pain medication for you. These are potentially dangerous and addictive medications that should be used carefully. These medications may constipate you. Take an [id number] stool softener such as docusate twice daily with plenty of water while taking these medications. If you go 24 hours without a bowel movement, take [id number] MiraLAX, per package instructions. Do not drink or drive while taking these medications. If you received narcotic or sedating medications while in the emergency department do not drive for 24 hours. Store this medication in a safe, secure place and out of reach of children. It is a violation of federal law to give or sell this medication to another person or to use in a manner other than prescribed. The ED will not refill narcotic prescriptions, including prescriptions lost or stolen. You can dispose of unwanted medications at the [facility]'s office or at several pharmacies such as [facility]. Discharge Date/Time: 02/25/23 09:43
[2023-02-25] MEDS ORDERED: TRIAMCINOLONE 40 MG/ML VIAL MC STA (08:53)
--- OUTSIDE RECORDS SUMMARY | 2023-02-25 08:53 | EXTERNAL MEDICAL SUMMARY RPT | Continuity of Care Document ---
:1990 Author Organization [facility] Address [address] [place] [address] Phone Care Team Providers Name Role Phone Unavailable Unavailable Unavailable Josefina Baumann Unavailable Unavailable Allergies No information. Encounters No information. Functional Status No information. Immunizations No information. Medications date description facility 2022-12-02 00:00 [facility] 2022-12-15 00:00 [facility] 2022-12-26 00:00 [facility] 2023-01-06 00:00 [facility] 2022-12-07 00:00 Citalopram [facility] 2023-02-07 00:00 [facility] Problems date description facility 2023-01-05 15:58 Hypothyroidism, unspecified [facility] 2023-02-07 00:00 Low back pain [facility] 2023-02-07 08:48 Hypothyroidism, unspecified [facility] Procedures No information. Results/Labs test date author facility value unit interpret ation Result panel 1 (unknown) (no date) (unknown[facility] unknown) Result panel 2 (unknown) (no date) (unknown) [facility] ([facility] value[facility] (units (k now) [facility] unknown) Result panel 3 (unknown) (no (unknown) (unknown) (no value) (units (unk nown) date) unknown) (unknown) (no (unknown) (unknown) 11/28/22 (units (unkno wn) date) unknown) (unknown) (no (unknown) (unknown) 32y s/p (units (u nknown) date) csx4, c/b concern unknown) for low amniotic fluid, hypothyroid on 137 (100 (unknown) (no (unknown) (unknown) : [id number] (units (u nknown) date) unknown) (unknown) (no [...] own) date) unknown) (unknown) (no (unknown) (unknown) [place], [place] (units ( unknown) date) [id number] unknown) (unknown) (no (unknown) (unknown) Anaphylaxis (units (un known) date) unknown) (unknown) (no (unknown) (unknown) Anesthesia (units (unk nown) date) unknown) (unknown) (no (unknown) (unknown) Attending Dr: (units ( unknown) date) Luisana DevriesOKaye unknown) (unknown) (no (unknown) (unknown) Carpal tunnel (units ( unknown) date) syndrome (-2017) unknown) (unknown) (no (unknown) (unknown) Chief Complaint (units (unknown) date) unknown) (unknown) (no (unknown) (unknown) Chief Complaint: (units (unknown) date) /pump unknown) ing concerns (unknown) (no (unknown) (unknown) : 1990 (units (unknown) date) Acct:[id number] unknown) (unknown) (no (unknown) (unknown) Daughter Juvenile [...] frenotomy unknown) assessment (unknown) (no (unknown) (unknown) [place] teeth (units (u nknown) date) extracted unknown) [...] members: (units (unknown) date) spouse, family unknown) (nxfmbjn-ra-run and his 3 children (moving out (unknown) [...] unknown) effort is made to edit content, websphere message broker developer errors (unknown) (no (unknown) (unknown) soon)) and [...] detector in home: unknown) Yes Result panel 4 (unknown) (no (unknown) (unknown) (no value) (units (unk nown) date) unknown) (unknown) (no (unknown) (unknown) 12/02/22 (units (unkno wn) date) unknown) (unknown) (no (unknown) (unknown) : [id number] (units (u nknown) date) unknown) (unknown) (no (unknown) (unknown) Age/Sex: 32 / F (units (unknown) date) Date of Service: unknown) (unknown) (no (unknown) (unknown) Allergies (units (unkn own) date) unknown) (unknown) (no (unknown) (unknown) [place], [place] (units ( unknown) date) [id number] unknown) (unknown) (no (unknown) (unknown) Anaphylaxis (units (un known) date) unknown) (unknown) (no (unknown) (unknown) Attending Dr: (units ( unknown) date) Glen Ojeda unknown) (unknown) (no (unknown) (unknown) : 1990 (units (unknown) date) Acct:[id number] unknown) (unknown) (no (unknown) (unknown) Dept at (units (unkno wn) date) . unknown) (unknown) (no (unknown) (unknown) Documented By: (units (unknown) date) Glen Ojeda unknown) 12/02/22 [id number] (unknown) (no (unknown) (unknown) Draft (units (unkno [...] unknown) effort is made to edit content, websphere message broker developer errors Result panel 5 (unknown) (no (unknown) (unknown) (no value) (units (unk nown) date) unknown) (unknown) (no (unknown) (unknown) COVID-19 (units (u nknown) date) unknown) (unknown) (no (unknown) (unknown) 12/02/22 (units (unkno wn) date) unknown) (unknown) (no (unknown) (unknown) : [id number] (units (u nknown) date) unknown) (unknown) (no (unknown) (unknown) Age/Sex: 32 / F (units (unknown) date) Date of Service: unknown) (unknown) (no (unknown) (unknown) Allergies (units (unkn own) date) unknown) (unknown) (no (unknown) (unknown) [place], [place] (units ( unknown) date) [id number] unknown) (unknown) (no (unknown) (unknown) Anaphylaxis (units (un known) date) unknown) (unknown) (no (unknown) (unknown) Attending Dr: (units ( unknown) date) Glen Ojeda unknown) (unknown) (no (unknown) (unknown) : 1990 (units (unknown) date) Acct:[id number] unknown) (unknown) (no (unknown) (unknown) Dept at [...] unknown) effort is made to edit content, websphere message broker developer errors (unknown) (no (unknown) (unknown) to leave steri (units (unknown) date) strips on. Pt unknown) also had questions about pins and needles that go (unknown) (no (unknown) (unknown) up and down her (units (unknown) date) spine after unknown) receiving blood patch. Advised pt that she should Result panel 6 (unknown) (no (unknown) (unknown) (no value) (units (unk nown) date) unknown) (unknown) (no (unknown) (unknown) COVID-19 (units (u nknown) date) unknown) (unknown) (no (unknown) (unknown) 12/02/22 (units (unkno wn) date) unknown) (unknown) (no (unknown) (unknown) 12/23/22 1221 (units ( unknown) date) unknown) (unknown) (no (unknown) (unknown) : [id number] (units (u nknown) date) unknown) (unknown) (no (unknown) (unknown) Age/Sex: 32 / F (units (unknown) date) Date of Service: unknown) (unknown) (no (unknown) (unknown) Allergies (units (unkn own) date) unknown) (unknown) (no (unknown) (unknown) SIL Rocha (units ( unknown) date) [id number] unknown) (unknown) (no (unknown) (unknown) Anaphylaxis (units (un known) date) unknown) (unknown) (no (unknown) (unknown) Attending Dr: (units ( unknown) date) Glen Ojeda unknown) (unknown) (no (unknown) (unknown) : 1990 (units (unknown) date) Acct:[id number] unknown) (unknown) (no (unknown) (unknown) Dept at (units (unkno wn) date) . unknown) (unknown) (no (unknown) (unknown) Documented By: (units (unknown) date) Glen Ojeda unknownRichard FINE 12/02/22 1425 (unknown) (no (unknown) (unknown) Evaluation/Scree (units (unknown) [...] White (units (unknown) date) Brittany Lindquist unknown) MR# (unknown) (no (unknown) (unknown) Pt [...] unknown) effort is made to edit content, websphere message broker developer errors m (unknown) (no (unknown) (unknown) to leave steri (units (unknown) date) strips on. Pt unknown) also had questions about pins and needles that go (unknown) (no (unknown) (unknown) up and down her (units (unknown) date) spine after unknown) receiving blood patch. Advised pt that she should Result panel 7 (unknown) (no (unknown) (unknown) (no value) (units [...] date) unknown) (unknown) (no (unknown) (unknown) : [id number] (units (u nknown) date) unknown) (unknown) (no [...] own) date) unknown) (unknown) (no (unknown) (unknown) [place], [place] (units ( unknown) date) [address] unknown) (unknown) (no (unknown) (unknown) Anaphylaxis (units [...] (unknown) (unknown) : 1990 (units (unknown) date) Acct:[id number] unknown) (unknown) (no (unknown) (unknown) Date of [...] 7# 12oz unknown) (unknown) (no (unknown) (unknown) will be (units (unknown) date) adopted?: no unknown) (unknown) (no (unknown) (unknown) Infant's Sex: (units ( unknown) date) Male unknown) [...] unknown) No (unknown) (no (unknown) (unknown) Partner: Adrinao (units (unknown) date) [place] unknown) (unknown) (no [...] Lindquist MR# unknown) (unknown) (no (unknown) (unknown) [facility]: (units ( unknown) date) Pediatric unknown) Associates [...] unknown) child: No (unknown) (no (unknown) (unknown) [place] (units (unk nown) date) [place] 4 unknown) [...] part unknown) of [facility] [place] [facility] (unknown) (no (unknown) (unknown) Tobacco + (units [...] wn) date) unknown) (unknown) (no (unknown) (unknown) [place] teeth (units (u nknown) date) extracted unknown) [...] date) She is having a unknown) few [place] Weinstein contractions but denies (unknown) (no (unknown) [...] members: (units (unknown) date) spouse, family unknown) ([id number] and his 3 children (moving out (unknown) [...] (no (unknown) (unknown) prenat.vits,alexey,m (units (unknown) date) [id number] 1 unknown) tab PO DAILY 04/22/22 [History [...] (units (unknown) date) check with surgery unknown) 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 (units (unkn own) date) Although every unknown) effort is made to edit content, websphere message broker developer errors (unknown) (no (unknown) (unknown) soon)) and (units (unk nown) date) children unknown) (unknown) (no (unknown) (unknown) special [place] (units ( unknown) date) needs: No unknown) (unknown) (no (unknown) (unknown) substance use (units (u nknown) date) type: marijuana unknown) (in the past, not recently and not while ) (unknown) (no (unknown) (unknown) term [place] (units ( unknown) date) [place] unknown) (unknown) (no (unknown) (unknown) volume. The [...] detector in home: unknown) Yes Result panel 8 (unknown) (no (unknown) (unknown) (no value) (units [...] for contraception (unknown) (no (unknown) (unknown) : [id number] (units (u nknown) date) unknown) (unknown) (no [...] (unknown) SIL Rocha (units ( unknown) date) [id number] unknown) (unknown) (no (unknown) (unknown) Anaphylaxis (units [...] own) date) unknown) (unknown) (no (unknown) (unknown) [place] 2 months (units (unknown) date) post-dates unknown) [...] (unknown) (unknown) : 1990 (units (unknown) date) Acct:[id number] unknown) (unknown) (no (unknown) (unknown) Date of [...] no unknown) (unknown) (no (unknown) (unknown) 's Name: (units (unknown) date) Carlene unknown) (unknown) [...] Lindquist MR# unknown) (unknown) (no (unknown) (unknown) [facility]: (units ( unknown) date) Pediatric unknown) Associates [...] unknown) child: No (unknown) (no (unknown) (unknown) [place] (units (unk nown) date) [place] 4 unknown) [...] part unknown) of [facility]'s [facility] workup [place] [facility] (unknown) (no (unknown) (unknown) Tobacco + (units [...] unknown) date) unknown) (unknown) (no (unknown) (unknown) [place] teeth (units (u nknown) date) extracted unknown) (unknown) (no (unknown) (unknown) Would like (units (unk nown) date) referral unknown) to [facility] and 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 (units (unkn own) date) Although every unknown) effort is made to edit content, websphere message broker developer errors (unknown) (no (unknown) (unknown) soon)) and (units (unk nown) date) children unknown) (unknown) (no (unknown) (unknown) [place] (units ( unknown) date) needs: No unknown) (unknown) (no (unknown) (unknown) substance use (units (u nknown) date) type: marijuana unknown) (in the past, not recently and not while ) (unknown) (no (unknown) (unknown) term [place] (units ( unknown) date) [place] unknown) (unknown) (no (unknown) (unknown) volume. The [...] detector in home: unknown) Yes Result panel 9 (unknown) (no (unknown) (unknown) (no value) (units [...] for contraception (unknown) (no (unknown) (unknown) : [id number] (units (u nknown) date) unknown) (unknown) (no [...] own) date) unknown) (unknown) (no (unknown) (unknown) [place], [place] (units ( unknown) date) [id number] unknown) (unknown) (no (unknown) (unknown) Anaphylaxis (units [...] own) date) unknown) (unknown) (no (unknown) (unknown) [place] 2 months (units (unknown) date) post-dates unknown) [...] (unknown) (unknown) : 1990 (units (unknown) date) Acct:[id number] unknown) (unknown) (no (unknown) (unknown) Date of [...] no unknown) (unknown) (no (unknown) (unknown) 's Name: (units (unknown) date) Carlene unknown) (unknown) [...] wn) date) unknown) (unknown) (no (unknown) (unknown) [place]: (units (u nknown) date) Reports resumed; unknown) [...] Lindquist MR# unknown) (unknown) (no (unknown) (unknown) [facility]: (units ( unknown) date) Pediatric unknown) Associates [...] unknown) child: No (unknown) (no (unknown) (unknown) [place] (units (unk nown) date) [place] 4 unknown) [...] part unknown) of [facility]'s [facility] workup [place] (unknown) (no (unknown) (unknown) Tobacco + (units [...] unknown) date) unknown) (unknown) (no (unknown) (unknown) [place] teeth (units (u nknown) date) extracted unknown) (unknown) (no (unknown) (unknown) Would like (units (unk nown) date) referral unknown) to [facility] and [facility] grade breast pump at (unknown) (no [...] members: (units (unknown) date) spouse, family unknown) (cwfvxnw-fa-vej and his 3 children (moving out (unknown) [...] (no (unknown) (unknown) prenat.vits,alexey,m (units (unknown) date) [id number] 1 unknown) tab PO DAILY 04/22/22 [History [...] (units (unknown) date) check with surgery unknown) 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 (units (unkn own) date) Although every unknown) effort is made to edit content, websphere message broker developer errors (unknown) (no (unknown) (unknown) soon)) and [...] (unknown) term [place] (units ( unknown) date) [place] unknown) (unknown) (no (unknown) (unknown) volume. The [...] detector in home: unknown) Yes Result panel 10 (unknown) (no (unknown) (unknown) (no value) (units [...] for contraception (unknown) (no (unknown) (unknown) : [id number] (units (u nknown) date) unknown) (unknown) (no [...] own) date) unknown) (unknown) (no (unknown) (unknown) [place], [place] (units ( unknown) date) [address] unknown) (unknown) (no (unknown) (unknown) Anaphylaxis (units [...] own) date) unknown) (unknown) (no (unknown) (unknown) [place] 2 months (units (unknown) date) post-dates unknown) [...] (unknown) (unknown) : 1990 (units (unknown) date) Acct:[id number] unknown) (unknown) (no (unknown) (unknown) Date of [...] Details unknown) (unknown) (no (unknown) (unknown) [facility] [...] no unknown) (unknown) (no (unknown) (unknown) 's Name: (units (unknown) date) Carlene unknown) (unknown) [...] wn) date) unknown) (unknown) (no (unknown) (unknown) [place]: (units (u nknown) date) Reports resumed; unknown) [...] (-2020) unknown) (unknown) (no (unknown) (unknown) Para 4 [...] Lindquist MR# unknown) (unknown) (no (unknown) (unknown) [facility]: (units ( unknown) date) Pediatric unknown) Associates [...] unknown) child: No (unknown) (no (unknown) (unknown) [place] (units (unk nown) date) [place] 4 unknown) [...] part unknown) of [facility]'s [facility] workup [place] [facility] (unknown) (no (unknown) (unknown) Tobacco + (units [...] unknown) date) unknown) (unknown) (no (unknown) (unknown) [place] teeth (units (u nknown) date) extracted unknown) (unknown) (no (unknown) (unknown) Would like (units (unk nown) date) referral unknown) to [facility] and [facility] grade breast pump at (unknown) (no [...] date) She is having a unknown) few [place] contractions but denies (unknown) (no (unknown) [...] members: (units (unknown) date) spouse, family unknown) (isifcyr-sa-egg and his 3 children (moving out (unknown) [...] (no (unknown) (unknown) prenat.vits,alexey,m (units (unknown) date) [id number]-[id number]-[id number] 1 unknown) tab PO DAILY 04/22/22 [History [...] (units (unknown) date) check with surgery unknown) 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 (units (unkn own) date) Although every unknown) effort is made to edit content, websphere message broker developer errors (unknown) (no (unknown) (unknown) soon)) and [...] (unknown) term [place] (units ( unknown) date) [place] unknown) (unknown) (no (unknown) (unknown) volume. The [...] detector in home: unknown) Yes Result panel 11 (unknown) (no date) (unknown) (unknown) 1.47 ng/dl (unkn own) Result panel 12 (unknown) (no date) (unknown) (unknown) < 0.015 uiu/ml (unkn own) (unknown) (no date) (unknown) (unknown) 1.47 ng/dl (unkn own) Result panel 13 (unknown) (no (unknown) (unknown) (no value) (units (unk nown) date) unknown) (unknown) (no (unknown) (unknown) (0=absent, 1=slight (unit s (unknown) date) response, unknown) 2=brisk/normal, 3=very brisk, 4=clonus) (unknown) (no (unknown) (unknown) (segments are from (units (unknown) date) the International unknown) Standards for Neurological Classification (unknown) (no (unknown) (unknown) - Activity: (units (un known) date) Continue activity as unknown) tolerated. [] (unknown) (no (unknown) (unknown) - Chiropractor, (units (unknown) date) acupuncture[] unknown) (unknown) (no (unknown) (unknown) - Continues (units (unk nown) date) clinician directed unknown) home exercise program including exercises learned (unknown) (no (unknown) (unknown) - Education: [place] (units (unknown) date) equina and unknown) associated symptoms, including motor weakness, (unknown) (no (unknown) (unknown) - FADIR: [(-/+) on (units (unknown) date) the R side / L side unknown) / bilaterally] (unknown) (no (unknown) (unknown) - Follow-up: [] (units (unknown) date) unknown) (unknown) (no (unknown) (unknown) - Hip ROM is: [WNL (units (unknown) date) / limited and unknown) painful on the R sided / L side / bilaterally] (unknown) (no (unknown) (unknown) - I discussed (units ( unknown) date) risks, benefits and unknown) side effects. Additionally, patient was (unknown) (no (unknown) (unknown) - Imaging: No new (units (unknown) date) imaging indicated at unknown) this time. [] (unknown) (no (unknown) (unknown) - (units (unkno wn) date) Interventional/Surgi unknown) alexey procedures: None indicated at this time. [] (unknown) (no (unknown) (unknown) - Lumbar facet (units (unknown) date) loading: [(-/+) on unknown) the R side / L side / bilaterally] (unknown) (no (unknown) (unknown) - Medications: No (units (unknown) date) new prescription at unknown) this time. Patient will continue current (unknown) (no (unknown) (unknown) - Medications: (units (unknown) date) acetaminophen, unknown) NSAIDS, neuropathics, muscle relaxants [] (unknown) (no (unknown) (unknown) - Physical Therapy: (unit s (unknown) date) Completed 6 week unknown) course in the last 6 months OR Patient (unknown) (no (unknown) (unknown) - Physical (units (unk nown) date) therapy/modalities/D unknown) ME: Patient will likely benefit from physical (unknown) (no (unknown) (unknown) - Prescription (units (unknown) date) provided and unknown) uptitration instructions given if necessary. [] (unknown) (no (unknown) (unknown) - Previous [] on [] (units (unknown) date) provided []% relief unknown) of pain for the expected duration of the (unknown) (no (unknown) (unknown) - Referrals: None (units (unknown) date) indicated at this unknown) time. [] (unknown) (no (unknown) (unknown) - SIJ provocation (units (unknown) date) testing: [ (+/-) unknown) George's finger test, posterior thrust, (unknown) (no (unknown) (unknown) - Straight Leg (units (unknown) date) Raise: [(-/+) on the unknown) L side / R side / bilaterally] (unknown) (no (unknown) (unknown) 01/14/2023. She (units (unknown) date) presented to the unknown) emergency department and was given lidocaine (unknown) (no (unknown) (unknown) 02/02/23 (units (unkno wn) date) unknown) (unknown) (no (unknown) (unknown) : [id number] (units (u nknown) date) unknown) (unknown) (no (unknown) (unknown) ? Inspection -? No (units (unknown) date) gross appendicular unknown) or axial deformities (unknown) (no (unknown) (unknown) ? Palpation -? (units (unknown) date) [Tender to palpation unknown) of / No tenderness to palpation] (unknown) (no (unknown) (unknown) ? ROM - [Lumbar (units (unknown) date) flexion/ extension/ unknown) lateral rotation is limited due to pain / (unknown) (no (unknown) (unknown) ? Special tests (units (unknown) date) unknown) (unknown) (no (unknown) (unknown) ? (units (un known) date) Acetaminophen unknown) (unknown) (no (unknown) (unknown) ? (units (un known) date) Antidepressants unknown) (unknown) (no (unknown) (unknown) ? (units (un known) date) Antiepileptics unknown) (unknown) (no (unknown) (unknown) ? Muscle (units (unknown) date) Relaxants unknown) (unknown) (no (unknown) (unknown) ? NSAIDs (units (unknown) date) unknown) (unknown) (no (unknown) (unknown) ? Opioids (unit s (unknown) date) unknown) (unknown) (no (unknown) (unknown) ? (units (un known) date) Steroids unknown) (unknown) (no (unknown) (unknown) ? (units (un known) date) Topicals unknown) (unknown) (no (unknown) (unknown) ADHD (units (unkno wn) date) unknown) (unknown) (no (unknown) (unknown) Additional Social (units (unknown) date) History unknown) (unknown) (no (unknown) (unknown) Age/Sex: 32 / F (units (unknown) date) Date of Service: unknown) (unknown) (no (unknown) (unknown) Aggravating factors (unit s (unknown) date) include: unknown) (unknown) (no (unknown) (unknown) Alcoholism (units (unk nown) date) unknown) (unknown) (no (unknown) (unknown) All other systems (units (unknown) date) reviewed and are unknown) unremarkable except as noted in HPI. (unknown) (no (unknown) (unknown) Allergies (units (unkn own) date) unknown) (unknown) (no (unknown) (unknown) SIL Rocha [id number] (unit s (unknown) date) unknown) (unknown) (no (unknown) (unknown) Anaphylaxis (units (un known) date) unknown) (unknown) (no (unknown) (unknown) Anesthesia (units (unk nown) date) unknown) (unknown) (no (unknown) (unknown) Assessment + Plan (units (unknown) date) unknown) (unknown) (no (unknown) (unknown) Assessment: (units (un known) date) unknown) (unknown) (no (unknown) (unknown) Attending Dr: (units ( unknown) date) Celio Tejada MD unknown) (unknown) (no (unknown) (unknown) Babinski's (units (unk nown) date) Downgoing Downgoing unknown) (unknown) (no (unknown) (unknown) Bowel and bladder: (units (unknown) date) No loss of control unknown) (unknown) (no (unknown) (unknown) Cardiovascular: No (units (unknown) date) edema or cyanosis. unknown) 2+ peripheral pulses (unknown) (no (unknown) (unknown) Carpal tunnel (units ( unknown) date) syndrome (-2017) unknown) (unknown) (no (unknown) (unknown) Chart review: (units ( unknown) date) unknown) (unknown) (no (unknown) (unknown) Chief Complaint (units (unknown) date) unknown) (unknown) (no (unknown) (unknown) Chief Complaint: (units (unknown) date) Low back pain unknown) (unknown) (no (unknown) (unknown) Clonus None None (units (unknown) date) unknown) (unknown) (no (unknown) (unknown) Conservative (units (u nknown) date) management includes: unknown) (unknown) (no (unknown) (unknown) Continue current (units (unknown) date) physical therapy. [] unknown) (unknown) (no (unknown) (unknown) Continue home (units ( unknown) date) exercise program. [] unknown) (unknown) (no (unknown) (unknown) Current pain (units (u nknown) date) treatments include: unknown) (unknown) (no (unknown) (unknown) : 1990 (units (unknown) date) Acct:[id number] unknown) (unknown) (no (unknown) (unknown) Daughter Juvenile (units (unknown) date) arthritis unknown) (unknown) (no (unknown) (unknown) Denies recent (units ( unknown) date) trauma, fever or unknown) weight loss of unknown origin, immunocompromise (unknown) (no (unknown) (unknown) Depression (-1999) (units (unknown) date) unknown) (unknown) (no (unknown) (unknown) Dept at (units (unkno wn) date) . unknown) (unknown) (no (unknown) (unknown) Details: (units (unkno wn) date) unknown) (unknown) (no (unknown) (unknown) Diet and Exercise (units (unknown) date) unknown) (unknown) (no (unknown) (unknown) Documented By: (units (unknown) date) Celio Tejada MD unknown) 02/02/23 1412 (unknown) (no (unknown) (unknown) Draft (units (unkno wn) date) unknown) (unknown) (no (unknown) (unknown) Exam Narrative (units (unknown) date) unknown) (unknown) (no (unknown) (unknown) Exam Narrative: (units (unknown) date) unknown) (unknown) (no (unknown) (unknown) Exam (units (unkno wn) date) unknown) (unknown) (no (unknown) (unknown) [place] MORENO's, (units (unknown) date) Pelvic rocking on unknown) the R/L side / bilaterally] (unknown) (no (unknown) (unknown) Family History (units (unknown) date) (Updated 06/08/22 @ unknown) 21:23 by Aurora Arevalo) (unknown) (no (unknown) (unknown) Father Diabetes (units (unknown) date) mellitus unknown) (unknown) (no (unknown) (unknown) Foot pain (-2020) (units (unknown) date) unknown) (unknown) (no (unknown) (unknown) Gait/Station - (units (unknown) date) [Non-antalgic gait. unknown) Heel/toe walking intact. Tandem gait normal (unknown) (no (unknown) (unknown) General: (units (unkno wn) date) Well-nourished, unknown) well-developed, [sex] in no acute distress (unknown) (no (unknown) (unknown) HPI (units (unkno wn) date) unknown) (unknown) (no (unknown) (unknown) Heavy menstrual (units (unknown) date) period (-2020) unknown) (unknown) (no (unknown) (unknown) History of (units (unk nown) date) polyhydramnios unknown) (unknown) (no (unknown) (unknown) History of surgery (units (unknown) date) unknown) (unknown) (no (unknown) (unknown) Hydrocodone-acetami (unit s (unknown) date) nophen 5-325 mg 1 unknown) tab q.6 hours as needed (unknown) (no (unknown) (unknown) Intake (units (unkno wn) date) unknown) (unknown) (no (unknown) (unknown) Intervention: Date: (unit s (unknown) date) Outcome: unknown) (unknown) (no (unknown) (unknown) JUSTIFICATION OF (units (unknown) date) MEDICAL NECESSITY unknown) (unknown) (no (unknown) (unknown) L-spine/T-spine/C-s (unit s (unknown) date) pine MRI ordered to unknown) better delineate the anatomy and help (unknown) (no (unknown) (unknown) L2 Hip Flexion 5/5 (units (unknown) date) 5/5? unknown) (unknown) (no (unknown) (unknown) L3 Knee Extension (units (unknown) date) 5/5 5/5 unknown) (unknown) (no (unknown) (unknown) L3-4 Patella 2+ 2 (units (unknown) date) unknown) (unknown) (no (unknown) (unknown) L4 Ankle (units (unkno wn) date) Dorsiflexion 5/5 5/5 unknown) (unknown) (no (unknown) (unknown) L5 Long Toe (units (un known) date) Extension 5/5 5/5 unknown) (unknown) (no (unknown) (unknown) Brittany has a history (units (unknown) date) of chronic low back unknown) pain with an acute exacerbation on (unknown) (no (unknown) (unknown) Brittany is a (units (unkn own) date) 32-year-old female unknown) with a history of ASD, depression, ADHD, obesity (unknown) (no (unknown) (unknown) Lidocaine patch 5% (units (unknown) date) unknown) (unknown) (no (unknown) (unknown) Loc: PAIN (units (unkn own) date) unknown) (unknown) (no (unknown) (unknown) MSK: System (units (un known) date) reviewed and no unknown) additional complaints, except as documented. (unknown) (no (unknown) (unknown) Medical History (units (unknown) date) (Updated 11/15/22 @ unknown) 11:51 by Glen Ojeda MD) (unknown) (no (unknown) (unknown) Medications: (units (u nknown) date) unknown) (unknown) (no (unknown) (unknown) Mental health (units ( unknown) date) problem unknown) (unknown) (no (unknown) (unknown) Mother Depression (units (unknown) date) unknown) (unknown) (no (unknown) (unknown) Motor (units (unkno wn) date) unknown) (unknown) (no (unknown) (unknown) Musculoskeletal: (units (unknown) date) unknown) (unknown) (no (unknown) (unknown) Nearsightedness (units (unknown) date) unknown) (unknown) (no (unknown) (unknown) Neuro: System (units ( unknown) date) reviewed and no unknown) additional complaints, except as documented. (unknown) (no (unknown) (unknown) Neurologic: (units (un known) date) unknown) (unknown) (no (unknown) (unknown) Not indicated at (units (unknown) date) this time. 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 [He/she] has unknown) attended for [sessions] (unknown) (no (unknown) (unknown) PTSD (units (unkno wn) date) (post-traumatic unknown) stress disorder) (-1999) (unknown) (no (unknown) (unknown) Pain Visit (units (unk nown) date) unknown) (unknown) (no (unknown) (unknown) Pain (units (unkno wn) date) location/Radiation: unknown) (unknown) (no (unknown) (unknown) Pain rating: /10 (units (unknown) date) today, /10 at worst unknown) (unknown) (no (unknown) (unknown) Painful menstrual (units (unknown) date) periods () unknown) (unknown) (no (unknown) (unknown) Patient will return (unit s (unknown) date) for []. Risks and unknown) benefits were discussed. (unknown) (no (unknown) (unknown) Patient's pain has (units (unknown) date) been present for >6 unknown) weeks and is an average of >6/10 on 0-10 (unknown) (no (unknown) (unknown) Patient: White (units (unknown) date) Brittany Lindquist MR# unknown) (unknown) (no (unknown) (unknown) Plan (units (unkno wn) date) unknown) (unknown) (no (unknown) (unknown) Plan/Recommendation (unit s (unknown) date) s: unknown) (unknown) (no (unknown) (unknown) Polyhydramnios (units (unknown) date) unknown) (unknown) (no (unknown) (unknown) (units (unk nown) date) depression unknown) (unknown) (no (unknown) (unknown) Prescriptions (units ( unknown) date) Written: [] unknown) (unknown) (no (unknown) (unknown) Previous (units (unknown) date) section unknown) (unknown) (no (unknown) (unknown) Previous pain (units ( unknown) date) treatments included: unknown) (unknown) (no (unknown) (unknown) Psych: Appropriate (units (unknown) date) affect, answers unknown) questions appropriately (unknown) (no (unknown) (unknown) Quality and timing (units (unknown) date) of pain: unknown) (unknown) (no (unknown) (unknown) ROS Narrative (units ( unknown) date) unknown) (unknown) (no (unknown) (unknown) ROS Narrative: (units (unknown) date) unknown) (unknown) (no (unknown) (unknown) ROS (units (unkno wn) date) unknown) (unknown) (no (unknown) (unknown) Reason For Visit (units (unknown) date) unknown) (unknown) (no (unknown) (unknown) Red flag symptoms: (units (unknown) date) unknown) (unknown) (no (unknown) (unknown) Reflex Right Left (units (unknown) date) unknown) (unknown) (no (unknown) (unknown) Reflexes: (units (unkn own) date) unknown) (unknown) (no (unknown) (unknown) Relieving factors (units (unknown) date) include: unknown) (unknown) (no (unknown) (unknown) Respiratory: (units (u nknown) date) Non-labored unknown) breathing pattern on RA. No respiratory distress (unknown) (no (unknown) (unknown) 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 unknown) (unknown) (no (unknown) (unknown) S1 Ankle (units (unkno wn) date) Plantarflexion 5/5 unknown) 5/5 (unknown) (no (unknown) (unknown) S1-2 Achilles 2+ 2 (units (unknown) date) unknown) (unknown) (no (unknown) (unknown) Saddle anesthesia: (units (unknown) date) denies unknown) (unknown) (no (unknown) (unknown) Safety (units (unkno wn) date) unknown) (unknown) (no (unknown) (unknown) Segment Action (units (unknown) date) Right Left unknown) (unknown) (no (unknown) (unknown) Segment Reflex (units (unknown) date) Right Left unknown) (unknown) (no (unknown) (unknown) Sensory -? Intact (units (unknown) date) to light touch of unknown) bilateral lower extremities. Allodynia (unknown) (no (unknown) (unknown) Signed By: (units (unk nown) date) unknown) (unknown) (no (unknown) (unknown) Skin: No (units (unkno wn) date) appreciable rashes unknown) or skin breakdown (unknown) (no (unknown) (unknown) Smoking Status: (units (unknown) date) Former smoker unknown) (unknown) (no (unknown) (unknown) Social History (units (unknown) date) unknown) (unknown) (no (unknown) (unknown) Son Hearing loss (units (unknown) date) unknown) (unknown) (no (unknown) (unknown) Standing: (units (unkn own) date) unknown) (unknown) (no (unknown) (unknown) Surgery: Patient is (unit s (unknown) date) s/p unknown) (unknown) (no (unknown) (unknown) Surgical History (units (unknown) date) (Updated 07/12/22 @ unknown) 15:10 by Josefina Baumann MD) (unknown) (no (unknown) (unknown) [facility] (unit s (unknown) date) Management unknown) (unknown) (no (unknown) (unknown) This note may have (units (unknown) date) been all or unknown) partially generated using voice recognition (unknown) (no (unknown) (unknown) Tobacco + Substance (unit s (unknown) date) Use unknown) (unknown) (no (unknown) (unknown) Tobacco Status (units (unknown) date) unknown) (unknown) (no (unknown) (unknown) Today I have (units (u nknown) date) reviewed available unknown) medical information in the patient's medical (unknown) (no (unknown) (unknown) Type(s) of (units (unk nown) date) exercise: walking unknown) (unknown) (no (unknown) (unknown) [place] (units (unknown) date) Signs: unknown) (unknown) (no (unknown) (unknown) 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 (unknown) (no (unknown) (unknown) We reviewed (units (unk nown) date) etiology, unknown) predisposing factor(s), natural course, imaging results as (unknown) (no (unknown) (unknown) Weakness: denies (units (unknown) date) unknown) (unknown) (no (unknown) (unknown) [place] teeth (units (u nknown) date) extracted unknown) (unknown) (no (unknown) (unknown) additional social (units (unknown) date) history: Difficulty unknown) other children. Would (unknown) (no (unknown) (unknown) alcohol intake: (units (unknown) date) former unknown) (unknown) (no (unknown) (unknown) and chronic low (units (unknown) date) back pain who unknown) presents for further evaluation of low back pain. (unknown) (no (unknown) (unknown) benefits of various (unit s (unknown) date) treatment options unknown) were discussed with the patient in great (unknown) (no (unknown) (unknown) bowel/bladder (units (u nknown) date) dysfunction, and unknown) perineal numbness were discussed. The patient was (unknown) (no (unknown) (unknown) caffeine: Yes (soft (unit s (unknown) date) drinks in small unknown) quantities, well within 200mg limit) (unknown) (no (unknown) (unknown) cannot tolerate (units (unknown) date) physical therapy at unknown) the current time due to the intensity of the (unknown) (no (unknown) (unknown) carbon monox (units (u nknown) date) detector in home: unknown) Yes (unknown) (no (unknown) (unknown) current (units (unkno wn) date) occupational unknown) exposures/hazards: Yes (unknown) (no (unknown) (unknown) daily servings (units (unknown) date) fruits/ve or unknown) more times/day (unknown) (no (unknown) (unknown) delivery. (units (unkn own) date) unknown) (unknown) (no (unknown) (unknown) detail. (units (unkno wn) date) unknown) (unknown) (no (unknown) (unknown) disc protrusion (units (unknown) date) without canal unknown) stenosis at C5-6. (unknown) (no (unknown) (unknown) do you feel safe at (unit s (unknown) date) home: Yes unknown) (unknown) (no (unknown) (unknown) [...] unknown) 01/05/23 14:49) (unknown) (no (unknown) (unknown) foraminal stenosis (units (unknown) date) and a mild right unknown) paracentral disc protrusion at L5-S1 without (unknown) (no (unknown) (unknown) grade breast pump (units (unknown) date) that she can have unknown) when she goes home from hospital after (unknown) (no (unknown) (unknown) have occurred. If (units (unknown) date) there are any unknown) questions, please contact the Medical Records (unknown) (no (unknown) (unknown) household members: (units (unknown) date) spouse, family unknown) ([id number] and his 3 children (moving out (unknown) (no (unknown) (unknown) housing: house (units (unknown) date) unknown) (unknown) (no (unknown) (unknown) in PT. [] (units (unkn own) date) unknown) (unknown) (no (unknown) (unknown) instructed to (units ( unknown) date) report to the unknown) Emergency department, if these symptoms occur. (unknown) (no (unknown) (unknown) instructed to stop (units (unknown) date) if any side effects. unknown) [] (unknown) (no (unknown) (unknown) intravenous drug (units (unknown) date) use, sustained unknown) glucocorticoid use, osteoporosis, or a focal (unknown) (no (unknown) (unknown) lives (units (unkno wn) date) independently: Yes unknown) (unknown) (no (unknown) (unknown) local anesthetic. (units (unknown) date) During that time unknown) patient able to participate in ADLs, had imp (unknown) (no (unknown) (unknown) low back pain and (units (unknown) date) headaches and the unknown) symptoms were felt to be likely related to a (unknown) (no (unknown) (unknown) lumbar spine showed (unit s (unknown) date) multilevel facet unknown) hypertrophy, no central canal stenosis or (unknown) (no (unknown) (unknown) marital status: (units (unknown) date) unknown) (unknown) (no (unknown) (unknown) may occur. (units (unk nown) date) Occasional unknown) wrong-word or 'sound-alike' substitutions may have (unknown) (no (unknown) (unknown) meds. [] (units (unkno wn) date) unknown) (unknown) (no (unknown) (unknown) negative, (units (unkn own) date) Hyperalgesia - unknown) negative (unknown) (no (unknown) (unknown) nerve root (units (unk nown) date) impingement. unknown) Thoracic spine MRI was grossly unremarkable. Cervical (unknown) (no (unknown) (unknown) neurological (units (u nknown) date) deficit with unknown) progressive or disabling symptoms. (unknown) (no (unknown) (unknown) number of children: (unit s (unknown) date) 3 unknown) (unknown) (no (unknown) (unknown) occupational (units (u nknown) date) status: unemployed unknown) and previously employed (unknown) (no (unknown) (unknown) occurred due to the (unit s (unknown) date) inherent limitations unknown) of voice recognition software. Please (unknown) (no (unknown) (unknown) of Spinal Cord (units (unknown) date) Injury) unknown) (unknown) (no (unknown) (unknown) or (units (unkno wn) date) immunosuppressive unknown) therapy, previous or current cancer diagnosis, history of (unknown) (no (unknown) (unknown) pain. [] (units (unkno wn) date) unknown) (unknown) (no (unknown) (unknown) patches and a (units ( unknown) date) prednisone taper. unknown) She was referred to Neurology on 12/29/2022 for (unknown) (no (unknown) (unknown) pets and animals: (units (unknown) date) Yes (horses) unknown) (unknown) (no (unknown) (unknown) post epidural blood (unit s (unknown) date) patch. She was unknown) referred to physical therapy. MRI of the (unknown) (no (unknown) (unknown) read the note (units ( unknown) date) carefully and unknown) recognize, using context, where these substitutions (unknown) (no (unknown) (unknown) really like to meet (unit s (unknown) date) w/ IBCLC prior to unknown) delivery and would like Rx for hospital (unknown) (no (unknown) (unknown) record, including (units (unknown) date) relevant provider unknown) notes, laboratory work, and imaging. (unknown) (no (unknown) (unknown) roved sleep, (units (u nknown) date) improved mobility, unknown) etc. (unknown) (no (unknown) (unknown) scale and/or pain (units (unknown) date) interferes with unknown) ADLs. (unknown) (no (unknown) (unknown) seatbelt use: (units ( unknown) date) always unknown) (unknown) (no (unknown) (unknown) second hand (units (un known) date) exposure: No unknown) (unknown) (no (unknown) (unknown) software. Although (units (unknown) date) every effort is made unknown) to edit content, websphere message broker developer errors (unknown) (no (unknown) (unknown) soon)) and children (unit s (unknown) date) unknown) (unknown) (no (unknown) (unknown) special [place] (units ( unknown) date) needs: No unknown) (unknown) (no (unknown) (unknown) spinal headache (units (unknown) date) secondary to spinal unknown) anesthesia for . She is status (unknown) (no (unknown) (unknown) spine MRI showed (units (unknown) date) right paracentral unknown) annulus tear plus minimal right paracentral (unknown) (no (unknown) (unknown) substance use type: (units (unknown) date) marijuana (in the unknown) past, not recently and not while ) (unknown) (no (unknown) (unknown) therapeutic (units (un known) date) injections and unknown) surgery. The risks, consequences, alternatives and (unknown) (no (unknown) (unknown) therapy. ?A (units (un known) date) referral was unknown) provided for the patient. [] (unknown) (no (unknown) (unknown) water heater temp (units (unknown) date) set < 120 deg: Yes unknown) (unknown) (no (unknown) (unknown) well as treatment (units (unknown) date) options including unknown) medications, physical therapy/exercise, (unknown) (no (unknown) (unknown) well-balanced diet: (unit s (unknown) date) daily or most days unknown) (unknown) (no (unknown) (unknown) with future (units (un known) date) treatment planning. unknown) [] (unknown) (no (unknown) (unknown) without evidence of (unit s (unknown) date) ataxia. Lower unknown) quarter stability intact.] (unknown) (no (unknown) (unknown) working smoke (units ( unknown) date) detector in home: unknown) Yes Result panel 14 (unknown) (no (unknown) (unknown) (no value) (units (unk nown) date) unknown) (unknown) (no (unknown) (unknown) (0=absent, 1=slight (unit s (unknown) date) response, unknown) 2=brisk/normal, 3=very brisk, 4=clonus) (unknown) (no (unknown) (unknown) (segments are from (units (unknown) date) the International unknown) Standards for Neurological Classification (unknown) (no (unknown) (unknown) - Activity: (units (un known) date) Continue activity as unknown) tolerated. [] (unknown) (no (unknown) (unknown) - Chiropractor, (units (unknown) date) acupuncture[] unknown) (unknown) (no (unknown) (unknown) - Continues (units (unk nown) date) clinician directed unknown) home exercise program including exercises learned (unknown) (no (unknown) (unknown) - Education: Cauda (units (unknown) date) equina and unknown) associated symptoms, including motor weakness, (unknown) (no (unknown) (unknown) - FADIR: [(-/+) on (units (unknown) date) the R side / L side unknown) / bilaterally] (unknown) (no (unknown) (unknown) - Follow-up: [] (units (unknown) date) unknown) (unknown) (no (unknown) (unknown) - Hip ROM is: [WNL (units (unknown) date) / limited and unknown) painful on the R sided / L side / bilaterally] (unknown) (no (unknown) (unknown) - I discussed (units ( unknown) date) risks, benefits and unknown) side effects. Additionally, patient was (unknown) (no (unknown) (unknown) - Imaging: No new (units (unknown) date) imaging indicated at unknown) this time. [] (unknown) (no (unknown) (unknown) - (units (unkno wn) date) Interventional/Surgi unknown) alexey procedures: None indicated at this time. [] (unknown) (no (unknown) (unknown) - Lumbar facet (units (unknown) date) loading: [(-/+) on unknown) the R side / L side / bilaterally] (unknown) (no (unknown) (unknown) - Medications: No (units (unknown) date) new prescription at unknown) this time. Patient will continue current (unknown) (no (unknown) (unknown) - Medications: (units (unknown) date) acetaminophen, unknown) NSAIDS, neuropathics, muscle relaxants [] (unknown) (no (unknown) (unknown) - Physical Therapy: (unit s (unknown) date) Completed 6 week unknown) course in the last 6 months OR Patient (unknown) (no (unknown) (unknown) - Physical (units (unk nown) date) therapy/modalities/D unknown) ME: Patient will likely benefit from physical (unknown) (no (unknown) (unknown) - Prescription (units (unknown) date) provided and unknown) uptitration instructions given if necessary. [] (unknown) (no (unknown) (unknown) - Previous [] on [] (units (unknown) date) provided []% relief unknown) of pain for the expected duration of the (unknown) (no (unknown) (unknown) - Referrals: None (units (unknown) date) indicated at this unknown) time. [] (unknown) (no (unknown) (unknown) - SIJ provocation (units (unknown) date) testing: [ (+/-) unknown) George's finger test, posterior thrust, (unknown) (no (unknown) (unknown) - Straight Leg (units (unknown) date) Raise: [(-/+) on the unknown) L side / R side / bilaterally] (unknown) (no (unknown) (unknown) 01/14/2023. She (units (unknown) date) presented to the unknown) emergency department and was given lidocaine (unknown) (no (unknown) (unknown) 02/02/23 (units (unkno wn) date) unknown) (unknown) (no (unknown) (unknown) 02/07/23] (units (unkn own) date) unknown) (unknown) (no (unknown) (unknown) : [id number] (units (u nknown) date) unknown) (unknown) (no (unknown) (unknown) ? Inspection -? No (units (unknown) date) gross appendicular unknown) or axial deformities (unknown) (no (unknown) (unknown) ? Palpation -? (units (unknown) date) [Tender to palpation unknown) of / No tenderness to palpation] (unknown) (no (unknown) (unknown) ? ROM - [Lumbar (units (unknown) date) flexion/ extension/ unknown) lateral rotation is limited due to pain / (unknown) (no (unknown) (unknown) ? Special tests (units (unknown) date) unknown) (unknown) (no (unknown) (unknown) ? (units (un known) date) Acetaminophen unknown) (unknown) (no (unknown) (unknown) ? (units (un known) date) Antidepressants unknown) (unknown) (no (unknown) (unknown) ? (units (un known) date) Antiepileptics unknown) (unknown) (no (unknown) (unknown) ? Muscle (units (unknown) date) Relaxants unknown) (unknown) (no (unknown) (unknown) ? NSAIDs (units (unknown) date) unknown) (unknown) (no (unknown) (unknown) ? Opioids (unit s (unknown) date) unknown) (unknown) (no (unknown) (unknown) ? (units (un known) date) Steroids unknown) (unknown) (no (unknown) (unknown) ? (units (un known) date) Topicals unknown) (unknown) (no (unknown) (unknown) ADHD (units (unkno wn) date) unknown) (unknown) (no (unknown) (unknown) Additional Social (units (unknown) date) History unknown) (unknown) (no (unknown) (unknown) Age/Sex: 32 / F (units (unknown) date) Date of Service: unknown) (unknown) (no (unknown) (unknown) Aggravating factors (unit s (unknown) date) include: unknown) (unknown) (no (unknown) (unknown) Alcoholism (units (unk nown) date) unknown) (unknown) (no (unknown) (unknown) All other systems (units (unknown) date) reviewed and are unknown) unremarkable except as noted in HPI. (unknown) (no (unknown) (unknown) Allergies (units (unkn own) date) unknown) (unknown) (no (unknown) (unknown) [place], [place] [address] (unit s (unknown) date) unknown) (unknown) (no (unknown) (unknown) Anaphylaxis (units (un known) date) unknown) (unknown) (no (unknown) (unknown) Anesthesia (units (unk nown) date) unknown) (unknown) (no (unknown) (unknown) Assessment + Plan (units (unknown) date) unknown) (unknown) (no (unknown) (unknown) Assessment: (units (un known) date) unknown) (unknown) (no (unknown) (unknown) Attending Dr: (units ( unknown) date) Celio Tejada MD unknown) (unknown) (no (unknown) (unknown) [facility] (units (unk nown) date) Downgoing Downgoing unknown) (unknown) (no (unknown) (unknown) Bowel and bladder: (units (unknown) date) No loss of control unknown) (unknown) (no (unknown) (unknown) Cardiovascular: No (units (unknown) date) edema or cyanosis. unknown) 2+ peripheral pulses (unknown) (no (unknown) (unknown) 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) unknown) (unknown) (no (unknown) (unknown) Chart review: (units ( unknown) date) unknown) (unknown) (no (unknown) (unknown) Chief Complaint (units (unknown) date) unknown) (unknown) (no (unknown) (unknown) Chief Complaint: (units (unknown) date) Low back pain unknown) (unknown) (no (unknown) (unknown) Clonus None None (units (unknown) date) unknown) (unknown) (no (unknown) (unknown) Conservative (units (u nknown) date) management includes: unknown) (unknown) (no (unknown) (unknown) Consult to discuss (units (unknown) date) low back pain s/p unknown) 11/2022 (unknown) (no (unknown) (unknown) Continue current (units (unknown) date) physical therapy. [] unknown) (unknown) (no (unknown) (unknown) Continue home (units ( unknown) date) exercise program. [] unknown) (unknown) (no (unknown) (unknown) Current pain (units (u nknown) date) treatments include: unknown) (unknown) (no (unknown) (unknown) : 1990 (units (unknown) date) Acct:[id number] unknown) (unknown) (no (unknown) (unknown) Daughter Juvenile (units (unknown) date) arthritis unknown) (unknown) (no (unknown) (unknown) Denies recent (units ( unknown) date) trauma, fever or unknown) weight loss of unknown origin, immunocompromise (unknown) (no (unknown) (unknown) Depression (-1999) (units (unknown) date) unknown) (unknown) (no (unknown) (unknown) Dept at (units (unkno wn) date) . unknown) (unknown) (no (unknown) (unknown) Details: (units (unkno wn) date) unknown) (unknown) (no (unknown) (unknown) Diet and Exercise (units (unknown) date) unknown) (unknown) (no (unknown) (unknown) Documented By: (units (unknown) date) Celio Tejada MD unknown) 02/02/23 1412 (unknown) (no (unknown) (unknown) Draft (units (unkno wn) date) unknown) (unknown) (no (unknown) (unknown) Exam Narrative (units (unknown) date) unknown) (unknown) (no (unknown) (unknown) Exam Narrative: (units (unknown) date) unknown) (unknown) (no (unknown) (unknown) Exam (units (unkno wn) date) unknown) (unknown) (no (unknown) (unknown) [place] MORENO[place], (units (unknown) date) Pelvic rocking on unknown) the R/L side / bilaterally] (unknown) (no (unknown) (unknown) Family History (units (unknown) date) (Updated 06/08/22 @ unknown) 21:23 by Aurora Arevalo) (unknown) (no (unknown) (unknown) Father Diabetes (units (unknown) date) mellitus unknown) (unknown) (no (unknown) (unknown) Foot pain () (units (unknown) date) unknown) (unknown) (no (unknown) (unknown) Gait/Station - (units (unknown) date) [Non-antalgic gait. unknown) Heel/toe walking intact. Tandem gait normal (unknown) (no (unknown) (unknown) General: (units (unkno wn) date) Well-nourished, unknown) well-developed, [sex] in no acute distress (unknown) (no (unknown) (unknown) HPI (units (unkno wn) date) unknown) (unknown) (no (unknown) (unknown) Heavy menstrual (units (unknown) date) period () unknown) (unknown) (no (unknown) (unknown) History of (units (unk nown) date) polyhydramnios unknown) (unknown) (no (unknown) (unknown) History of surgery (units (unknown) date) unknown) (unknown) (no (unknown) (unknown) Hydrocodone-acetami (unit s (unknown) date) nophen 5-325 mg 1 unknown) tab q.6 hours as needed (unknown) (no (unknown) (unknown) Intake Clinical (units (unknown) date) Staff unknown) (unknown) (no (unknown) (unknown) Intake Note: (units (u nknown) date) unknown) (unknown) (no (unknown) (unknown) Intake performed (units (unknown) date) by: unknown) Shell Portillo (unknown) (no (unknown) (unknown) Intake (units (unkno wn) date) unknown) (unknown) (no (unknown) (unknown) Intervention: Date: (unit s (unknown) date) Outcome: unknown) (unknown) (no (unknown) (unknown) JUSTIFICATION OF (units (unknown) date) MEDICAL NECESSITY unknown) (unknown) (no (unknown) (unknown) L-spine/T-spine/C-s (unit s (unknown) date) pine MRI ordered to unknown) better delineate the anatomy and help (unknown) (no (unknown) (unknown) L2 Hip Flexion 5/5 (units (unknown) date) 5/5? unknown) (unknown) (no (unknown) (unknown) L3 Knee Extension (units (unknown) date) 5/5 5/5 unknown) (unknown) (no (unknown) (unknown) L3-4 Patella 2+ 2 (units (unknown) date) unknown) (unknown) (no (unknown) (unknown) L4 Ankle (units (unkno wn) date) Dorsiflexion 5/5 5/5 unknown) (unknown) (no (unknown) (unknown) L5 Long Toe (units (un known) date) Extension 5/5 5/5 unknown) (unknown) (no (unknown) (unknown) Brittany has a history (units (unknown) date) of chronic low back unknown) pain with an acute exacerbation on (unknown) (no (unknown) (unknown) Brittany is a (units (unkn own) date) 32-year-old female unknown) with a history of ASD, depression, ADHD, obesity (unknown) (no (unknown) (unknown) Lidocaine patch 5% (units (unknown) date) unknown) (unknown) (no (unknown) (unknown) Loc: PAIN (units (unkn own) date) unknown) (unknown) (no (unknown) (unknown) MSK: System (units (un known) date) reviewed and no unknown) additional complaints, except as documented. (unknown) (no (unknown) (unknown) Medical History (units (unknown) date) (Updated 11/15/22 @ unknown) 11:51 by Glen Ojeda MD) (unknown) (no (unknown) (unknown) Medications (units (un known) date) unknown) (unknown) (no (unknown) (unknown) Medications: (units (u nknown) date) unknown) (unknown) (no (unknown) (unknown) Mental health (units ( unknown) date) problem unknown) (unknown) (no (unknown) (unknown) Mother Depression (units (unknown) date) unknown) (unknown) (no (unknown) (unknown) Motor (units (unkno wn) date) unknown) (unknown) (no (unknown) (unknown) Musculoskeletal: (units (unknown) date) unknown) (unknown) (no (unknown) (unknown) Nearsightedness (units (unknown) date) unknown) (unknown) (no (unknown) (unknown) Neuro: System (units ( unknown) date) reviewed and no unknown) additional complaints, except as documented. (unknown) (no (unknown) (unknown) Neurologic: (units (un known) date) unknown) (unknown) (no (unknown) (unknown) Not indicated at (units (unknown) date) this time. 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 [He/she] has unknown) attended for [sessions] (unknown) (no (unknown) (unknown) PTSD (units (unkno wn) date) (post-traumatic unknown) stress disorder) (-1999) (unknown) (no (unknown) (unknown) Pain Visit (units (unk nown) date) unknown) (unknown) (no (unknown) (unknown) Pain (units (unkno wn) date) location/Radiation: unknown) (unknown) (no (unknown) (unknown) Pain rating: /10 (units (unknown) date) today, /10 at worst unknown) (unknown) (no (unknown) (unknown) Painful menstrual (units (unknown) date) periods (-2019) unknown) (unknown) (no (unknown) (unknown) Patient will return (unit s (unknown) date) for []. Risks and unknown) benefits were discussed. (unknown) (no (unknown) (unknown) Patient's pain has (units (unknown) date) been present for >6 unknown) weeks and is an average of >6/10 on 0-10 (unknown) (no (unknown) (unknown) Patient: White (units (unknown) date) Brittany Lindquist MR# unknown) (unknown) (no (unknown) (unknown) Plan (units (unkno wn) date) unknown) (unknown) (no (unknown) (unknown) Plan/Recommendation (unit s (unknown) date) s: unknown) (unknown) (no (unknown) (unknown) Polyhydramnios (units (unknown) date) unknown) (unknown) (no (unknown) (unknown) (units (unk nown) date) depression unknown) (unknown) (no (unknown) (unknown) Prescriptions (units ( unknown) date) Written: [] unknown) (unknown) (no (unknown) (unknown) Previous (units (unknown) date) section unknown) (unknown) (no (unknown) (unknown) Previous pain (units ( unknown) date) treatments included: unknown) (unknown) (no (unknown) (unknown) Psych: Appropriate (units (unknown) date) affect, answers unknown) questions appropriately (unknown) (no (unknown) (unknown) Quality and timing (units (unknown) date) of pain: unknown) (unknown) (no (unknown) (unknown) ROS Narrative (units ( unknown) date) unknown) (unknown) (no (unknown) (unknown) ROS Narrative: (units (unknown) date) unknown) (unknown) (no (unknown) (unknown) ROS (units (unkno wn) date) unknown) (unknown) (no (unknown) (unknown) Reason For Visit (units (unknown) date) unknown) (unknown) (no (unknown) (unknown) Red flag symptoms: (units (unknown) date) unknown) (unknown) (no (unknown) (unknown) Reflex Right Left (units (unknown) date) unknown) (unknown) (no (unknown) (unknown) Reflexes: (units (unkn own) date) unknown) (unknown) (no (unknown) (unknown) Relieving factors (units (unknown) date) include: unknown) (unknown) (no (unknown) (unknown) Respiratory: (units (u nknown) date) Non-labored unknown) breathing pattern on RA. No respiratory distress (unknown) (no (unknown) (unknown) 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 unknown) (unknown) (no (unknown) (unknown) S1 Ankle (units (unkno wn) date) Plantarflexion 5/5 unknown) 5/5 (unknown) (no (unknown) (unknown) S1-2 Achilles 2+ 2 (units (unknown) date) unknown) (unknown) (no (unknown) (unknown) Saddle anesthesia: (units (unknown) date) denies unknown) (unknown) (no (unknown) (unknown) Safety (units (unkno wn) date) unknown) (unknown) (no (unknown) (unknown) Segment Action (units (unknown) date) Right Left unknown) (unknown) (no (unknown) (unknown) Segment Reflex (units (unknown) date) Right Left unknown) (unknown) (no (unknown) (unknown) Sensory -? Intact (units (unknown) date) to light touch of unknown) bilateral lower extremities. Allodynia (unknown) (no (unknown) (unknown) Signed By: (units (unk nown) date) unknown) (unknown) (no (unknown) (unknown) Skin: No (units (unkno wn) date) appreciable rashes unknown) or skin breakdown (unknown) (no (unknown) (unknown) Smoking Status: (units (unknown) date) Former smoker unknown) (unknown) (no (unknown) (unknown) Social History (units (unknown) date) unknown) (unknown) (no (unknown) (unknown) Son Hearing loss (units (unknown) date) unknown) (unknown) (no (unknown) (unknown) Standing: (units (unkn own) date) unknown) (unknown) (no (unknown) (unknown) Surgery: Patient is (unit s (unknown) date) s/p unknown) (unknown) (no (unknown) (unknown) Surgical History (units (unknown) date) (Updated 07/12/22 @ unknown) 15:10 by Josefina Baumann MD) (unknown) (no (unknown) (unknown) [facility] (unit s (unknown) date) Management unknown) (unknown) (no (unknown) (unknown) This note may have (units (unknown) date) been all or unknown) partially generated using voice recognition (unknown) (no (unknown) (unknown) Tobacco + Substance (unit s (unknown) date) Use unknown) (unknown) (no (unknown) (unknown) Tobacco Status (units (unknown) date) unknown) (unknown) (no (unknown) (unknown) Today I have (units (u nknown) date) reviewed available unknown) medical information in the patient's medical (unknown) (no (unknown) (unknown) Type(s) of (units (unk nown) date) exercise: walking unknown) (unknown) (no (unknown) (unknown) [place] (units (unknown) date) Signs: unknown) (unknown) (no (unknown) (unknown) 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 (unknown) (no (unknown) (unknown) We reviewed (units (unk nown) date) etiology, unknown) predisposing factor(s), natural course, imaging results as (unknown) (no (unknown) (unknown) Weakness: denies (units (unknown) date) unknown) (unknown) (no (unknown) (unknown) [place] teeth (units (u nknown) date) extracted unknown) (unknown) (no (unknown) (unknown) additional social (units (unknown) date) history: Difficulty unknown) other children. Would (unknown) (no (unknown) (unknown) alcohol intake: (units (unknown) date) former unknown) (unknown) (no (unknown) (unknown) and chronic low (units (unknown) date) back pain who unknown) presents for further evaluation of low back pain. (unknown) (no (unknown) (unknown) benefits of various (unit s (unknown) date) treatment options unknown) were discussed with the patient in great (unknown) (no (unknown) (unknown) bowel/bladder (units (u nknown) date) dysfunction, and unknown) perineal numbness were discussed. The patient was (unknown) (no (unknown) (unknown) caffeine: Yes (soft (unit s (unknown) date) drinks in small unknown) quantities, well within 200mg limit) (unknown) (no (unknown) (unknown) cannot tolerate (units (unknown) date) physical therapy at unknown) the current time due to the intensity of the (unknown) (no (unknown) (unknown) carbon monox (units (u nknown) date) detector in home: unknown) Yes (unknown) (no (unknown) (unknown) citalopram 10 mg (units (unknown) date) tablet (Celexa) 20 unknown) mg PO DAILY #60 tabs 12/07/22 [Rx Confirmed (unknown) (no (unknown) (unknown) current (units (unkno wn) date) occupational unknown) exposures/hazards: Yes (unknown) (no (unknown) (unknown) daily servings (units (unknown) date) fruits/ve or unknown) more times/day (unknown) (no (unknown) (unknown) delivery. (units (unkn own) date) unknown) (unknown) (no (unknown) (unknown) detail. (units (unkno wn) date) unknown) (unknown) (no (unknown) (unknown) disc protrusion (units (unknown) date) without canal unknown) stenosis at C5-6. (unknown) (no (unknown) (unknown) do you feel safe at (unit s (unknown) date) home: Yes unknown) (unknown) (no (unknown) (unknown) [...] Allergy (units (unknown) date) (Severe, Verified unknown) 02/07/23 08:41) (unknown) (no (unknown) (unknown) foraminal stenosis (units (unknown) date) and a mild right unknown) paracentral disc protrusion at L5-S1 without (unknown) (no (unknown) (unknown) grade breast pump (units (unknown) date) that she can have unknown) when she goes home from hospital after (unknown) (no (unknown) (unknown) have occurred. If (units (unknown) date) there are any unknown) questions, please contact the Medical Records (unknown) (no (unknown) (unknown) household members: (units (unknown) date) spouse, family unknown) ([id number] and his 3 children (moving out (unknown) (no (unknown) (unknown) housing: house (units (unknown) date) unknown) (unknown) (no (unknown) (unknown) improved sleep, (units (unknown) date) improved mobility, unknown) etc. (unknown) (no (unknown) (unknown) in PT. [] (units (unkn own) date) unknown) (unknown) (no (unknown) (unknown) instructed to (units ( unknown) date) report to the unknown) Emergency department, if these symptoms occur. (unknown) (no (unknown) (unknown) instructed to stop (units (unknown) date) if any side effects. unknown) [] (unknown) (no (unknown) (unknown) intravenous drug (units (unknown) date) use, sustained unknown) glucocorticoid use, osteoporosis, or a focal (unknown) (no (unknown) (unknown) levothyroxine 137 (units (unknown) date) mcg tablet 137 mcg unknown) PO DAILY #30 tabs 10/17/22 [Rx Confirmed (unknown) (no (unknown) (unknown) lives (units (unkno wn) date) independently: Yes unknown) (unknown) (no (unknown) (unknown) local anesthetic. (units (unknown) date) During that time unknown) patient able to participate in ADLs, had (unknown) (no (unknown) (unknown) low back pain and (units (unknown) date) headaches and the unknown) symptoms were felt to be likely related to a (unknown) (no (unknown) (unknown) lumbar spine showed (unit s (unknown) date) multilevel facet unknown) hypertrophy, no central canal stenosis or (unknown) (no (unknown) (unknown) marital status: (units (unknown) date) unknown) (unknown) (no (unknown) (unknown) may occur. (units (unk nown) date) Occasional unknown) wrong-word or 'sound-alike' substitutions may have (unknown) (no (unknown) (unknown) meds. [] (units (unkno wn) date) unknown) (unknown) (no (unknown) (unknown) negative, (units (unkn own) date) Hyperalgesia - unknown) negative (unknown) (no (unknown) (unknown) nerve root (units (unk nown) date) impingement. unknown) Thoracic spine MRI was grossly unremarkable. Cervical (unknown) (no (unknown) (unknown) neurological (units (u nknown) date) deficit with unknown) progressive or disabling symptoms. (unknown) (no (unknown) (unknown) number of children: (unit s (unknown) date) 3 unknown) (unknown) (no (unknown) (unknown) occupational (units (u nknown) date) status: unemployed unknown) and previously employed (unknown) (no (unknown) (unknown) occurred due to the (unit s (unknown) date) inherent limitations unknown) of voice recognition software. Please (unknown) (no (unknown) (unknown) of Spinal Cord (units (unknown) date) Injury) unknown) (unknown) (no (unknown) (unknown) or (units (unkno wn) date) immunosuppressive unknown) therapy, previous or current cancer diagnosis, history of (unknown) (no (unknown) (unknown) oxycodone 5 mg (units (unknown) date) tablet 5 mg PO Q8H unknown) PRN pain #10 tabs 01/06/23 [Rx Confirmed (unknown) (no (unknown) (unknown) pain. [] (units (unkno wn) date) unknown) (unknown) (no (unknown) (unknown) patches and a (units ( unknown) date) prednisone taper. unknown) She was referred to Neurology on 12/29/2022 for (unknown) (no (unknown) (unknown) pets and animals: (units (unknown) date) Yes (horses) unknown) (unknown) (no (unknown) (unknown) post epidural blood (unit s (unknown) date) patch. She was unknown) referred to physical therapy. MRI of the (unknown) (no (unknown) (unknown) prenat.vits,alexey,min (unit s (unknown) date) -iron-folic 1 tab PO unknown) DAILY 04/22/22 [History Confirmed (unknown) (no (unknown) (unknown) read the note (units ( unknown) date) carefully and unknown) recognize, using context, where these substitutions (unknown) (no (unknown) (unknown) really like to meet (unit s (unknown) date) w/ IBCLC prior to unknown) delivery and would like Rx for hospital (unknown) (no (unknown) (unknown) record, including (units (unknown) date) relevant provider unknown) notes, laboratory work, and imaging. (unknown) (no (unknown) (unknown) scale and/or pain (units (unknown) date) interferes with unknown) ADLs. (unknown) (no (unknown) (unknown) seatbelt use: (units ( unknown) date) always unknown) (unknown) (no (unknown) (unknown) second hand (units (un known) date) exposure: No unknown) (unknown) (no (unknown) (unknown) software. Although (units (unknown) date) every effort is made unknown) to edit content, websphere message broker developer errors (unknown) (no (unknown) (unknown) soon)) and children (unit s (unknown) date) unknown) (unknown) (no (unknown) (unknown) special [place] (units ( unknown) date) needs: No unknown) (unknown) (no (unknown) (unknown) spinal headache (units (unknown) date) secondary to spinal unknown) anesthesia for . She is status (unknown) (no (unknown) (unknown) spine MRI showed (units (unknown) date) right paracentral unknown) annulus tear plus minimal right paracentral (unknown) (no (unknown) (unknown) substance use type: (units (unknown) date) marijuana (in the unknown) past, not recently and not while ) (unknown) (no (unknown) (unknown) therapeutic (units (un known) date) injections and unknown) surgery. The risks, consequences, alternatives and (unknown) (no (unknown) (unknown) therapy. ?A (units (un known) date) referral was unknown) provided for the patient. [] (unknown) (no (unknown) (unknown) water heater temp (units (unknown) date) set < 120 deg: Yes unknown) (unknown) (no (unknown) (unknown) well as treatment (units (unknown) date) options including unknown) medications, physical therapy/exercise, (unknown) (no (unknown) (unknown) well-balanced diet: (unit s (unknown) date) daily or most days unknown) (unknown) (no (unknown) (unknown) with future (units (un known) date) treatment planning. unknown) [] (unknown) (no (unknown) (unknown) without evidence of (unit s (unknown) date) ataxia. Lower unknown) quarter stability intact.] (unknown) (no (unknown) (unknown) working smoke (units ( unknown) date) detector in home: unknown) Yes Result panel 15 (unknown) (no (unknown) (unknown) (no value) (units (unk nown) date) unknown) (unknown) (no (unknown) (unknown) (0=absent, 1=slight (unit s (unknown) date) response, unknown) 2=brisk/normal, 3=very brisk, 4=clonus) (unknown) (no (unknown) (unknown) (segments are from (units (unknown) date) the International unknown) Standards for Neurological Classification (unknown) (no (unknown) (unknown) - Activity: (units (un known) date) Continue activity as unknown) tolerated. [] (unknown) (no (unknown) (unknown) - Chiropractor, (units (unknown) date) acupuncture[] unknown) (unknown) (no (unknown) (unknown) - Continues (units (unk nown) date) clinician directed unknown) home exercise program including exercises learned (unknown) (no (unknown) (unknown) - Education: Cauda (units (unknown) date) equina and unknown) associated symptoms, including motor weakness, (unknown) (no (unknown) (unknown) - FADIR: [(-/+) on (units (unknown) date) the R side / L side unknown) / bilaterally] (unknown) (no (unknown) (unknown) - Follow-up: [] (units (unknown) date) unknown) (unknown) (no (unknown) (unknown) - Hip ROM is: [WNL (units (unknown) date) / limited and unknown) painful on the R sided / L side / bilaterally] (unknown) (no (unknown) (unknown) - I discussed (units ( unknown) date) risks, benefits and unknown) side effects. Additionally, patient was (unknown) (no (unknown) (unknown) - Imaging: No new (units (unknown) date) imaging indicated at unknown) this time. [] (unknown) (no (unknown) (unknown) - (units (unkno wn) date) Interventional/Surgi unknown) alexey procedures: None indicated at this time. [] (unknown) (no (unknown) (unknown) - Lumbar facet (units (unknown) date) loading: [(-/+) on unknown) the R side / L side / bilaterally] (unknown) (no (unknown) (unknown) - Medications: No (units (unknown) date) new prescription at unknown) this time. Patient will continue current (unknown) (no (unknown) (unknown) - Medications: (units (unknown) date) acetaminophen, unknown) NSAIDS, neuropathics, muscle relaxants [] (unknown) (no (unknown) (unknown) - Physical Therapy: (unit s (unknown) date) Completed 6 week unknown) course in the last 6 months OR Patient (unknown) (no (unknown) (unknown) - Physical (units (unk nown) date) therapy/modalities/D unknown) ME: Patient will likely benefit from physical (unknown) (no (unknown) (unknown) - Prescription (units (unknown) date) provided and unknown) uptitration instructions given if necessary. [] (unknown) (no (unknown) (unknown) - Previous [] on [] (units (unknown) date) provided []% relief unknown) of pain for the expected duration of the (unknown) (no (unknown) (unknown) - Referrals: None (units (unknown) date) indicated at this unknown) time. [] (unknown) (no (unknown) (unknown) - SIJ provocation (units (unknown) date) testing: [ (+/-) unknown) George's finger test, posterior thrust, (unknown) (no (unknown) (unknown) - Straight Leg (units (unknown) date) Raise: [(-/+) on the unknown) L side / R side / bilaterally] (unknown) (no (unknown) (unknown) 01/14/2023. She (units (unknown) date) presented to the unknown) emergency department and was given lidocaine (unknown) (no (unknown) (unknown) 02/07/23 (units (unkno wn) date) unknown) (unknown) (no (unknown) (unknown) 02/07/23] (units (unkn own) date) unknown) (unknown) (no (unknown) (unknown) : [id number] (units (u nknown) date) unknown) (unknown) (no (unknown) (unknown) ? Inspection -? No (units (unknown) date) gross appendicular unknown) or axial deformities (unknown) (no (unknown) (unknown) ? Palpation -? (units (unknown) date) [Tender to palpation unknown) of / No tenderness to palpation] (unknown) (no (unknown) (unknown) ? ROM - [Lumbar (units (unknown) date) flexion/ extension/ unknown) lateral rotation is limited due to pain / (unknown) (no (unknown) (unknown) ? Special tests (units (unknown) date) unknown) (unknown) (no (unknown) (unknown) ? (units (un known) date) Acetaminophen unknown) (unknown) (no (unknown) (unknown) ? (units (un known) date) Antidepressants unknown) (unknown) (no (unknown) (unknown) ? (units (un known) date) Antiepileptics unknown) (unknown) (no (unknown) (unknown) ? Muscle (units (unknown) date) Relaxants unknown) (unknown) (no (unknown) (unknown) ? NSAIDs (units (unknown) date) unknown) (unknown) (no (unknown) (unknown) ? Opioids (unit s (unknown) date) unknown) (unknown) (no (unknown) (unknown) ? (units (un known) date) Steroids unknown) (unknown) (no (unknown) (unknown) ? (units (un known) date) Topicals unknown) (unknown) (no (unknown) (unknown) ADHD (units (unkno wn) date) unknown) (unknown) (no (unknown) (unknown) Additional Social (units (unknown) date) History unknown) (unknown) (no (unknown) (unknown) Age/Sex: 32 / F (units (unknown) date) Date of Service: unknown) (unknown) (no (unknown) (unknown) Aggravating factors (unit s (unknown) date) include: unknown) (unknown) (no (unknown) (unknown) Alcoholism (units (unk nown) date) unknown) (unknown) (no (unknown) (unknown) All other systems (units (unknown) date) reviewed and are unknown) unremarkable except as noted in HPI. (unknown) (no (unknown) (unknown) Allergies (units (unkn own) date) unknown) (unknown) (no (unknown) (unknown) [place] [address] (unit s (unknown) date) unknown) (unknown) (no (unknown) (unknown) Anaphylaxis (units (un known) date) unknown) (unknown) (no (unknown) (unknown) Anesthesia (units (unk nown) date) unknown) (unknown) (no (unknown) (unknown) Assessment + Plan (units (unknown) date) unknown) (unknown) (no (unknown) (unknown) Assessment: (units (un known) date) unknown) (unknown) (no (unknown) (unknown) Attending Dr: (units ( unknown) date) Celio Tejada MD unknown) (unknown) (no (unknown) (unknown) [facility] (units (unk nown) date) Downgoing Downgoing unknown) (unknown) (no (unknown) (unknown) Bowel and bladder: (units (unknown) date) No loss of control unknown) (unknown) (no (unknown) (unknown) Cardiovascular: No (units (unknown) date) edema or cyanosis. unknown) 2+ peripheral pulses (unknown) (no (unknown) (unknown) Carpal tunnel (units ( unknown) date) syndrome (-2017) unknown) (unknown) (no (unknown) (unknown) Chart review: (units ( unknown) date) unknown) (unknown) (no (unknown) (unknown) Chief Complaint (units (unknown) date) unknown) (unknown) (no (unknown) (unknown) Chief Complaint: (units (unknown) date) Low back pain unknown) (unknown) (no (unknown) (unknown) Clonus None None (units (unknown) date) unknown) (unknown) (no (unknown) (unknown) Conservative (units (u nknown) date) management includes: unknown) (unknown) (no (unknown) (unknown) Consult to discuss (units (unknown) date) low back pain s/p unknown) 11/2022 (unknown) (no (unknown) (unknown) Continue current (units (unknown) date) physical therapy. [] unknown) (unknown) (no (unknown) (unknown) Continue home (units ( unknown) date) exercise program. [] unknown) (unknown) (no (unknown) (unknown) Current pain (units (u nknown) date) treatments include: unknown) (unknown) (no (unknown) (unknown) : 1990 (units (unknown) date) Acct:[id number] unknown) (unknown) (no (unknown) (unknown) Daughter Juvenile (units (unknown) date) arthritis unknown) (unknown) (no (unknown) (unknown) Denies recent (units ( unknown) date) trauma, fever or unknown) weight loss of unknown origin, immunocompromise (unknown) (no (unknown) (unknown) Depression (-1999) (units (unknown) date) unknown) (unknown) (no (unknown) (unknown) Dept at (units (unkno wn) date) . unknown) (unknown) (no (unknown) (unknown) Details: (units (unkno wn) date) unknown) (unknown) (no (unknown) (unknown) Diet and Exercise (units (unknown) date) unknown) (unknown) (no (unknown) (unknown) Documented By: (units (unknown) date) Celio Tejada MD unknown) 02/02/23 1412 (unknown) (no (unknown) (unknown) Draft (units (unkno wn) date) unknown) (unknown) (no (unknown) (unknown) Exam Narrative (units (unknown) date) unknown) (unknown) (no (unknown) (unknown) Exam Narrative: (units (unknown) date) unknown) (unknown) (no (unknown) (unknown) Exam (units (unkno wn) date) unknown) (unknown) (no (unknown) (unknown) [place], (units (unknown) date) Pelvic rocking on unknown) the R/L side / bilaterally] (unknown) (no (unknown) (unknown) Family History (units (unknown) date) (Updated 06/08/22 @ unknown) 21:23 by Aurora Arevalo) (unknown) (no (unknown) (unknown) Father Diabetes (units (unknown) date) mellitus unknown) (unknown) (no (unknown) (unknown) Foot pain () (units (unknown) date) unknown) (unknown) (no (unknown) (unknown) Gait/Station - (units (unknown) date) [Non-antalgic gait. unknown) Heel/toe walking intact. Tandem gait normal (unknown) (no (unknown) (unknown) General: (units (unkno wn) date) Well-nourished, unknown) well-developed, [sex] in no acute distress (unknown) (no (unknown) (unknown) HPI (units (unkno wn) date) unknown) (unknown) (no (unknown) (unknown) Heavy menstrual (units (unknown) date) period () unknown) (unknown) (no (unknown) (unknown) History of (units (unk nown) date) polyhydramnios unknown) (unknown) (no (unknown) (unknown) History of surgery (units (unknown) date) unknown) (unknown) (no (unknown) (unknown) Hydrocodone-acetami (unit s (unknown) date) nophen 5-325 mg 1 unknown) tab q.6 hours as needed (unknown) (no (unknown) (unknown) Intake Clinical (units (unknown) date) Staff unknown) (unknown) (no (unknown) (unknown) Intake Note: (units (u nknown) date) unknown) (unknown) (no (unknown) (unknown) Intake performed (units (unknown) date) by: unknown) Shell Portillo (unknown) (no (unknown) (unknown) Intake (units (unkno wn) date) unknown) (unknown) (no (unknown) (unknown) Intervention: Date: (unit s (unknown) date) Outcome: unknown) (unknown) (no (unknown) (unknown) JUSTIFICATION OF (units (unknown) date) MEDICAL NECESSITY unknown) (unknown) (no (unknown) (unknown) L-spine/T-spine/C-s (unit s (unknown) date) pine MRI ordered to unknown) better delineate the anatomy and help (unknown) (no (unknown) (unknown) L2 Hip Flexion 5/5 (units (unknown) date) 5/5? unknown) (unknown) (no (unknown) (unknown) L3 Knee Extension (units (unknown) date) 5/5 5/5 unknown) (unknown) (no (unknown) (unknown) L3-4 Patella 2+ 2 (units (unknown) date) unknown) (unknown) (no (unknown) (unknown) L4 Ankle (units (unkno wn) date) Dorsiflexion 5/5 5/5 unknown) (unknown) (no (unknown) (unknown) L5 Long Toe (units (un known) date) Extension 5/5 5/5 unknown) (unknown) (no (unknown) (unknown) Brittany has a history (units (unknown) date) of chronic low back unknown) pain with an acute exacerbation on (unknown) (no (unknown) (unknown) Brittany is a (units (unkn own) date) 32-year-old female unknown) with a history of ASD, depression, ADHD, obesity (unknown) (no (unknown) (unknown) Lidocaine patch 5% (units (unknown) date) unknown) (unknown) (no (unknown) (unknown) Loc: PAIN (units (unkn own) date) unknown) (unknown) (no (unknown) (unknown) MSK: System (units (un known) date) reviewed and no unknown) additional complaints, except as documented. (unknown) (no (unknown) (unknown) Medical History (units (unknown) date) (Updated 11/15/22 @ unknown) 11:51 by Glen Ojeda MD) (unknown) (no (unknown) (unknown) Medications (units (un known) date) unknown) (unknown) (no (unknown) (unknown) Medications: (units (u nknown) date) unknown) (unknown) (no (unknown) (unknown) Mental health (units ( unknown) date) problem unknown) (unknown) (no (unknown) (unknown) Mother Depression (units (unknown) date) unknown) (unknown) (no (unknown) (unknown) Motor (units (unkno wn) date) unknown) (unknown) (no (unknown) (unknown) Musculoskeletal: (units (unknown) date) unknown) (unknown) (no (unknown) (unknown) Nearsightedness (units (unknown) date) unknown) (unknown) (no (unknown) (unknown) Neuro: System (units ( unknown) date) reviewed and no unknown) additional complaints, except as documented. (unknown) (no (unknown) (unknown) Neurologic: (units (un known) date) unknown) (unknown) (no (unknown) (unknown) Not indicated at (units (unknown) date) this time. 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 [He/she] has unknown) attended for [sessions] (unknown) (no (unknown) (unknown) PTSD (units (unkno wn) date) (post-traumatic unknown) stress disorder) (-1999) (unknown) (no (unknown) (unknown) Pain Visit (units (unk nown) date) unknown) (unknown) (no (unknown) (unknown) Pain (units (unkno wn) date) location/Radiation: unknown) (unknown) (no (unknown) (unknown) Pain rating: /10 (units (unknown) date) today, /10 at worst unknown) (unknown) (no (unknown) (unknown) Painful menstrual (units (unknown) date) periods () unknown) (unknown) (no (unknown) (unknown) Patient will return (unit s (unknown) date) for []. Risks and unknown) benefits were discussed. (unknown) (no (unknown) (unknown) Patient's pain has (units (unknown) date) been present for >6 unknown) weeks and is an average of >6/10 on 0-10 (unknown) (no (unknown) (unknown) Patient: White (units (unknown) date) Brittany Lindquist MR# unknown) (unknown) (no (unknown) (unknown) Plan (units (unkno wn) date) unknown) (unknown) (no (unknown) (unknown) Plan/Recommendation (unit s (unknown) date) s: unknown) (unknown) (no (unknown) (unknown) Polyhydramnios (units (unknown) date) unknown) (unknown) (no (unknown) (unknown) (units (unk nown) date) depression unknown) (unknown) (no (unknown) (unknown) Prescriptions (units ( unknown) date) Written: [] unknown) (unknown) (no (unknown) (unknown) Previous (units (unknown) date) section unknown) (unknown) (no (unknown) (unknown) Previous pain (units ( unknown) date) treatments included: unknown) (unknown) (no (unknown) (unknown) Psych: Appropriate (units (unknown) date) affect, answers unknown) questions appropriately (unknown) (no (unknown) (unknown) Quality and timing (units (unknown) date) of pain: unknown) (unknown) (no (unknown) (unknown) ROS Narrative (units ( unknown) date) unknown) (unknown) (no (unknown) (unknown) ROS Narrative: (units (unknown) date) unknown) (unknown) (no (unknown) (unknown) ROS (units (unkno wn) date) unknown) (unknown) (no (unknown) (unknown) Reason For Visit (units (unknown) date) unknown) (unknown) (no (unknown) (unknown) Red flag symptoms: (units (unknown) date) unknown) (unknown) (no (unknown) (unknown) Reflex Right Left (units (unknown) date) unknown) (unknown) (no (unknown) (unknown) Reflexes: (units (unkn own) date) unknown) (unknown) (no (unknown) (unknown) Relieving factors (units (unknown) date) include: unknown) (unknown) (no (unknown) (unknown) Respiratory: (units (u nknown) date) Non-labored unknown) breathing pattern on RA. No respiratory distress (unknown) (no (unknown) (unknown) 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 unknown) (unknown) (no (unknown) (unknown) S1 Ankle (units (unkno wn) date) Plantarflexion 5/5 unknown) 5/5 (unknown) (no (unknown) (unknown) S1-2 Achilles 2+ 2 (units (unknown) date) unknown) (unknown) (no (unknown) (unknown) Saddle anesthesia: (units (unknown) date) denies unknown) (unknown) (no (unknown) (unknown) Safety (units (unkno wn) date) unknown) (unknown) (no (unknown) (unknown) Segment Action (units (unknown) date) Right Left unknown) (unknown) (no (unknown) (unknown) Segment Reflex (units (unknown) date) Right Left unknown) (unknown) (no (unknown) (unknown) Sensory -? Intact (units (unknown) date) to light touch of unknown) bilateral lower extremities. Allodynia (unknown) (no (unknown) (unknown) Signed By: (units (unk nown) date) unknown) (unknown) (no (unknown) (unknown) Skin: No (units (unkno wn) date) appreciable rashes unknown) or skin breakdown (unknown) (no (unknown) (unknown) Smoking Status: (units (unknown) date) Former smoker unknown) (unknown) (no (unknown) (unknown) Social History (units (unknown) date) unknown) (unknown) (no (unknown) (unknown) Son Hearing loss (units (unknown) date) unknown) (unknown) (no (unknown) (unknown) Standing: (units (unkn own) date) unknown) (unknown) (no (unknown) (unknown) Surgery: Patient is (unit s (unknown) date) s/p unknown) (unknown) (no (unknown) (unknown) Surgical History (units (unknown) date) (Updated 07/12/22 @ unknown) 15:10 by Josefina Baumann MD) (unknown) (no (unknown) (unknown) [facility] (unit s (unknown) date) Management unknown) (unknown) (no (unknown) (unknown) This note may have (units (unknown) date) been all or unknown) partially generated using voice recognition (unknown) (no (unknown) (unknown) Tobacco + Substance (unit s (unknown) date) Use unknown) (unknown) (no (unknown) (unknown) Tobacco Status (units (unknown) date) unknown) (unknown) (no (unknown) (unknown) Today I have (units (u nknown) date) reviewed available unknown) medical information in the patient's medical (unknown) (no (unknown) (unknown) Type(s) of (units (unk nown) date) exercise: walking unknown) (unknown) (no (unknown) (unknown) [place] (units (unknown) date) Signs: unknown) (unknown) (no (unknown) (unknown) 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 (unknown) (no (unknown) (unknown) We reviewed (units (unk nown) date) etiology, unknown) predisposing factor(s), natural course, imaging results as (unknown) (no (unknown) (unknown) Weakness: denies (units (unknown) date) unknown) (unknown) (no (unknown) (unknown) [place] teeth (units (u nknown) date) extracted unknown) (unknown) (no (unknown) (unknown) additional social (units (unknown) date) history: Difficulty unknown) other children. Would (unknown) (no (unknown) (unknown) alcohol intake: (units (unknown) date) former unknown) (unknown) (no (unknown) (unknown) and chronic low (units (unknown) date) back pain who unknown) presents for further evaluation of low back pain. (unknown) (no (unknown) (unknown) benefits of various (unit s (unknown) date) treatment options unknown) were discussed with the patient in great (unknown) (no (unknown) (unknown) bowel/bladder (units (u nknown) date) dysfunction, and unknown) perineal numbness were discussed. The patient was (unknown) (no (unknown) (unknown) caffeine: Yes (soft (unit s (unknown) date) drinks in small unknown) quantities, well within 200mg limit) (unknown) (no (unknown) (unknown) cannot tolerate (units (unknown) date) physical therapy at unknown) the current time due to the intensity of the (unknown) (no (unknown) (unknown) carbon monox (units (u nknown) date) detector in home: unknown) Yes (unknown) (no (unknown) (unknown) current (units (unkno wn) date) occupational unknown) exposures/hazards: Yes (unknown) (no (unknown) (unknown) daily servings (units (unknown) date) fruits/ve or unknown) more times/day (unknown) (no (unknown) (unknown) delivery. (units (unkn own) date) unknown) (unknown) (no (unknown) (unknown) detail. (units (unkno wn) date) unknown) (unknown) (no (unknown) (unknown) disc protrusion (units (unknown) date) without canal unknown) stenosis at C5-6. (unknown) (no (unknown) (unknown) do you feel safe at (unit s (unknown) date) home: Yes unknown) (unknown) (no (unknown) (unknown) [...] Allergy (units (unknown) date) (Severe, Verified unknown) 02/07/23 08:41) (unknown) (no (unknown) (unknown) foraminal stenosis (units (unknown) date) and a mild right unknown) paracentral disc protrusion at L5-S1 without (unknown) (no (unknown) (unknown) grade breast pump (units (unknown) date) that she can have unknown) when she goes home from hospital after (unknown) (no (unknown) (unknown) have occurred. If (units (unknown) date) there are any unknown) questions, please contact the Medical Records (unknown) (no (unknown) (unknown) household members: (units (unknown) date) spouse, family unknown) ([id number] and his 3 children (moving out (unknown) (no (unknown) (unknown) housing: house (units (unknown) date) unknown) (unknown) (no (unknown) (unknown) improved sleep, (units (unknown) date) improved mobility, unknown) etc. (unknown) (no (unknown) (unknown) in PT. [] (units (unkn own) date) unknown) (unknown) (no (unknown) (unknown) instructed to (units ( unknown) date) report to the unknown) Emergency department, if these symptoms occur. (unknown) (no (unknown) (unknown) instructed to stop (units (unknown) date) if any side effects. unknown) [] (unknown) (no (unknown) (unknown) intravenous drug (units (unknown) date) use, sustained unknown) glucocorticoid use, osteoporosis, or a focal (unknown) (no (unknown) (unknown) levothyroxine 137 (units (unknown) date) mcg tablet 137 mcg unknown) PO DAILY #30 tabs 10/17/22 [Rx Confirmed (unknown) (no (unknown) (unknown) lives (units (unkno wn) date) independently: Yes unknown) (unknown) (no (unknown) (unknown) local anesthetic. (units (unknown) date) During that time unknown) patient able to participate in ADLs, had (unknown) (no (unknown) (unknown) low back pain and (units (unknown) date) headaches and the unknown) symptoms were felt to be likely related to a (unknown) (no (unknown) (unknown) lumbar spine showed (unit s (unknown) date) multilevel facet unknown) hypertrophy, no central canal stenosis or (unknown) (no (unknown) (unknown) marital status: (units (unknown) date) unknown) (unknown) (no (unknown) (unknown) may occur. (units (unk nown) date) Occasional unknown) wrong-word or 'sound-alike' substitutions may have (unknown) (no (unknown) (unknown) meds. [] (units (unkno wn) date) unknown) (unknown) (no (unknown) (unknown) negative, (units (unkn own) date) Hyperalgesia - unknown) negative (unknown) (no (unknown) (unknown) nerve root (units (unk nown) date) impingement. unknown) Thoracic spine MRI was grossly unremarkable. Cervical (unknown) (no (unknown) (unknown) neurological (units (u nknown) date) deficit with unknown) progressive or disabling symptoms. (unknown) (no (unknown) (unknown) number of children: (unit s (unknown) date) 3 unknown) (unknown) (no (unknown) (unknown) occupational (units (u nknown) date) status: unemployed unknown) and previously employed (unknown) (no (unknown) (unknown) occurred due to the (unit s (unknown) date) inherent limitations unknown) of voice recognition software. Please (unknown) (no (unknown) (unknown) of Spinal Cord (units (unknown) date) Injury) unknown) (unknown) (no (unknown) (unknown) or (units (unkno wn) date) immunosuppressive unknown) therapy, previous or current cancer diagnosis, history of (unknown) (no (unknown) (unknown) pain. [] (units (unkno wn) date) unknown) (unknown) (no (unknown) (unknown) patches and a (units ( unknown) date) prednisone taper. unknown) She was referred to Neurology on 12/29/2022 for (unknown) (no (unknown) (unknown) pets and animals: (units (unknown) date) Yes (horses) unknown) (unknown) (no (unknown) (unknown) post epidural blood (unit s (unknown) date) patch. She was unknown) referred to physical therapy. MRI of the (unknown) (no (unknown) (unknown) prenat.vits,alexey,min (unit s (unknown) date) -iron-folic 1 tab PO unknown) DAILY 04/22/22 [History Confirmed (unknown) (no (unknown) (unknown) read the note (units ( unknown) date) carefully and unknown) recognize, using context, where these substitutions (unknown) (no (unknown) (unknown) really like to meet (unit s (unknown) date) w/ IBCLC prior to unknown) delivery and would like Rx for hospital (unknown) (no (unknown) (unknown) record, including (units (unknown) date) relevant provider unknown) notes, laboratory work, and imaging. (unknown) (no (unknown) (unknown) scale and/or pain (units (unknown) date) interferes with unknown) ADLs. (unknown) (no (unknown) (unknown) seatbelt use: (units ( unknown) date) always unknown) (unknown) (no (unknown) (unknown) second hand (units (un known) date) exposure: No unknown) (unknown) (no (unknown) (unknown) software. Although (units (unknown) date) every effort is made unknown) to edit content, websphere message broker developer errors (unknown) (no (unknown) (unknown) soon)) and children (unit s (unknown) date) unknown) (unknown) (no (unknown) (unknown) special [place] (units ( unknown) date) needs: No unknown) (unknown) (no (unknown) (unknown) spinal headache (units (unknown) date) secondary to spinal unknown) anesthesia for . She is status (unknown) (no (unknown) (unknown) spine MRI showed (units (unknown) date) right paracentral unknown) annulus tear plus minimal right paracentral (unknown) (no (unknown) (unknown) substance use type: (units (unknown) date) marijuana (in the unknown) past, not recently and not while ) (unknown) (no (unknown) (unknown) therapeutic (units (un known) date) injections and unknown) surgery. The risks, consequences, alternatives and (unknown) (no (unknown) (unknown) therapy. ?A (units (un known) date) referral was unknown) provided for the patient. [] (unknown) (no (unknown) (unknown) water heater temp (units (unknown) date) set < 120 deg: Yes unknown) (unknown) (no (unknown) (unknown) well as treatment (units (unknown) date) options including unknown) medications, physical therapy/exercise, (unknown) (no (unknown) (unknown) well-balanced diet: (unit s (unknown) date) daily or most days unknown) (unknown) (no (unknown) (unknown) with future (units (un known) date) treatment planning. unknown) [] (unknown) (no (unknown) (unknown) without evidence of (unit s (unknown) date) ataxia. Lower unknown) quarter stability intact.] (unknown) (no (unknown) (unknown) working smoke (units ( unknown) date) detector in home: unknown) Yes Result panel 16 (unknown) (no (unknown) (unknown) (no value) (units (unk nown) date) unknown) (unknown) (no (unknown) (unknown) (0=absent, 1=slight (unit s (unknown) date) response, unknown) 2=brisk/normal, 3=very brisk, 4=clonus) (unknown) (no (unknown) (unknown) (segments are from (units (unknown) date) the International unknown) Standards for Neurological Classification (unknown) (no (unknown) (unknown) - Activity: (units (un known) date) Continue activity as unknown) tolerated. [] (unknown) (no (unknown) (unknown) - Chiropractor, (units (unknown) date) acupuncture[] unknown) (unknown) (no (unknown) (unknown) - Continues (units (unk nown) date) clinician directed unknown) home exercise program including exercises learned (unknown) (no (unknown) (unknown) - Education: [place]auda (units (unknown) date) equina and unknown) associated symptoms, including motor weakness, (unknown) (no (unknown) (unknown) - FADIR: [(-/+) on (units (unknown) date) the R side / L side unknown) / bilaterally] (unknown) (no (unknown) (unknown) - Follow-up: [] (units (unknown) date) unknown) (unknown) (no (unknown) (unknown) - Hip ROM is: [WNL (units (unknown) date) / limited and unknown) painful on the R sided / L side / bilaterally] (unknown) (no (unknown) (unknown) - I discussed (units ( unknown) date) risks, benefits and unknown) side effects. Additionally, patient was (unknown) (no (unknown) (unknown) - Imaging: No new (units (unknown) date) imaging indicated at unknown) this time. [] (unknown) (no (unknown) (unknown) - (units (unkno wn) date) Interventional/Surgi unknown) alexey procedures: None indicated at this time. [] (unknown) (no (unknown) (unknown) - Lumbar facet (units (unknown) date) loading: [(-/+) on unknown) the R side / L side / bilaterally] (unknown) (no (unknown) (unknown) - Medications: No (units (unknown) date) new prescription at unknown) this time. Patient will continue current (unknown) (no (unknown) (unknown) - Medications: (units (unknown) date) acetaminophen, unknown) NSAIDS, neuropathics, muscle relaxants [] (unknown) (no (unknown) (unknown) - Physical Therapy: (unit s (unknown) date) Completed 6 week unknown) course in the last 6 months OR Patient (unknown) (no (unknown) (unknown) - Physical (units (unk nown) date) therapy/modalities/D unknown) ME: Patient will likely benefit from physical (unknown) (no (unknown) (unknown) - Prescription (units (unknown) date) provided and unknown) uptitration instructions given if necessary. [] (unknown) (no (unknown) (unknown) - Previous [] on [] (units (unknown) date) provided []% relief unknown) of pain for the expected duration of the (unknown) (no (unknown) (unknown) - Referrals: None (units (unknown) date) indicated at this unknown) time. [] (unknown) (no (unknown) (unknown) - SIJ provocation (units (unknown) date) testing: [ (+/-) unknown) George's finger test, posterior thrust, (unknown) (no (unknown) (unknown) - Straight Leg (units (unknown) date) Raise: [(-/+) on the unknown) L side / R side / bilaterally] (unknown) (no (unknown) (unknown) 01/14/2023. She (units (unknown) date) presented to the unknown) emergency department and was given lidocaine (unknown) (no (unknown) (unknown) 02/07/23 (units (unkno wn) date) unknown) (unknown) (no (unknown) (unknown) 02/07/23] (units (unkn own) date) unknown) (unknown) (no (unknown) (unknown) 09:29 (units (unkno wn) date) unknown) (unknown) (no (unknown) (unknown) : [id number] (units (u nknown) date) unknown) (unknown) (no (unknown) (unknown) ? Inspection -? No (units (unknown) date) gross appendicular unknown) or axial deformities (unknown) (no (unknown) (unknown) ? Palpation -? (units (unknown) date) [Tender to palpation unknown) of / No tenderness to palpation] (unknown) (no (unknown) (unknown) ? ROM - [Lumbar (units (unknown) date) flexion/ extension/ unknown) lateral rotation is limited due to pain / (unknown) (no (unknown) (unknown) ? Special tests (units (unknown) date) unknown) (unknown) (no (unknown) (unknown) ? (units (un known) date) Acetaminophen unknown) (unknown) (no (unknown) (unknown) ? (units (un known) date) Antidepressants unknown) (unknown) (no (unknown) (unknown) ? (units (un known) date) Antiepileptics unknown) (unknown) (no (unknown) (unknown) ? Muscle (units (unknown) date) Relaxants unknown) (unknown) (no (unknown) (unknown) ? NSAIDs (units (unknown) date) unknown) (unknown) (no (unknown) (unknown) ? Opioids (unit s (unknown) date) unknown) (unknown) (no (unknown) (unknown) ? (units (un known) date) Steroids unknown) (unknown) (no (unknown) (unknown) ? (units (un known) date) Topicals unknown) (unknown) (no (unknown) (unknown) ADHD (units (unkno wn) date) unknown) (unknown) (no (unknown) (unknown) Accompanied by: (units (unknown) date) Self / Same As unknown) Patient (unknown) (no (unknown) (unknown) Additional Social (units (unknown) date) History unknown) (unknown) (no (unknown) (unknown) Age/Sex: 32 / F (units (unknown) date) Date of Service: unknown) (unknown) (no (unknown) (unknown) Aggravating factors (unit s (unknown) date) include: unknown) (unknown) (no (unknown) (unknown) Alcoholism (units (unk nown) date) unknown) (unknown) (no (unknown) (unknown) All other systems (units (unknown) date) reviewed and are unknown) unremarkable except as noted in HPI. (unknown) (no (unknown) (unknown) Allergies (units (unkn own) date) unknown) (unknown) (no (unknown) (unknown) [place] [address] (unit s (unknown) date) unknown) (unknown) (no (unknown) (unknown) Anaphylaxis (units (un known) date) unknown) (unknown) (no (unknown) (unknown) Anesthesia (units (unk nown) date) unknown) (unknown) (no (unknown) (unknown) Assessment + Plan (units (unknown) date) unknown) (unknown) (no (unknown) (unknown) Assessment: (units (un known) date) unknown) (unknown) (no (unknown) (unknown) Attending Dr: (units ( unknown) date) Celio Tejada MD unknown) (unknown) (no (unknown) (unknown) BMI 45.1 (units (unkno wn) date) unknown) (unknown) (no (unknown) (unknown) BP 115/70 (units (unkn own) date) unknown) (unknown) (no (unknown) (unknown) Babinski's (units (unk nown) date) Downgoing Downgoing unknown) (unknown) (no (unknown) (unknown) Blood Pressure (units (unknown) date) Location Rt brachial unknown) (unknown) (no (unknown) (unknown) Bowel and bladder: (units (unknown) date) No loss of control unknown) (unknown) (no (unknown) (unknown) Cardiovascular: No (units (unknown) date) edema or cyanosis. unknown) 2+ peripheral pulses (unknown) (no (unknown) (unknown) Carpal tunnel (units ( unknown) date) syndrome () unknown) (unknown) (no (unknown) (unknown) Chart review: (units ( unknown) date) unknown) (unknown) (no (unknown) (unknown) Chief Complaint (units (unknown) date) unknown) (unknown) (no (unknown) (unknown) Chief Complaint: (units (unknown) date) Low back pain unknown) (unknown) (no (unknown) (unknown) Clonus None None (units (unknown) date) unknown) (unknown) (no (unknown) (unknown) Conservative (units (u nknown) date) management includes: unknown) (unknown) (no (unknown) (unknown) Consult to discuss (units (unknown) date) low back pain s/p unknown) 11/2022 (unknown) (no (unknown) (unknown) Continue current (units (unknown) date) physical therapy. [] unknown) (unknown) (no (unknown) (unknown) Continue home (units ( unknown) date) exercise program. [] unknown) (unknown) (no (unknown) (unknown) Current pain (units (u nknown) date) treatments include: unknown) (unknown) (no (unknown) (unknown) : 1990 (units (unknown) date) Acct:[id number] unknown) (unknown) (no (unknown) (unknown) Daughter Juvenile (units (unknown) date) arthritis unknown) (unknown) (no (unknown) (unknown) Denies recent (units ( unknown) date) trauma, fever or unknown) weight loss of unknown origin, immunocompromise (unknown) (no (unknown) (unknown) Depression (-1999) (units (unknown) date) unknown) (unknown) (no (unknown) (unknown) Dept at (units (unkno wn) date) . unknown) (unknown) (no (unknown) (unknown) Details: (units (unkno wn) date) unknown) (unknown) (no (unknown) (unknown) Diet and Exercise (units (unknown) date) unknown) (unknown) (no (unknown) (unknown) Documented By: (units (unknown) date) Celio Tejada MD unknown) 02/02/23 1412 (unknown) (no (unknown) (unknown) Draft (units (unkno wn) date) unknown) (unknown) (no (unknown) (unknown) Exam Narrative (units (unknown) date) unknown) (unknown) (no (unknown) (unknown) Exam Narrative: (units (unknown) date) unknown) (unknown) (no (unknown) (unknown) Exam (units (unkno wn) date) unknown) (unknown) (no (unknown) (unknown) [place] MORENO's, (units (unknown) date) Pelvic rocking on unknown) the R/L side / bilaterally] (unknown) (no (unknown) (unknown) Family History (units (unknown) date) (Updated 06/08/22 @ unknown) 21:23 by Aurora Arevalo) (unknown) (no (unknown) (unknown) Father Diabetes (units (unknown) date) mellitus unknown) (unknown) (no (unknown) (unknown) Foot pain () (units (unknown) date) unknown) (unknown) (no (unknown) (unknown) Gait/Station - (units (unknown) date) [Non-antalgic gait. unknown) Heel/toe walking intact. Tandem gait normal (unknown) (no (unknown) (unknown) General: (units (unkno wn) date) Well-nourished, unknown) well-developed, [sex] in no acute distress (unknown) (no (unknown) (unknown) HPI (units (unkno wn) date) unknown) (unknown) (no (unknown) (unknown) Heavy menstrual (units (unknown) date) period () unknown) (unknown) (no (unknown) (unknown) Height 5 ft 5 in (units (unknown) date) unknown) (unknown) (no (unknown) (unknown) History of (units (unk nown) date) polyhydramnios unknown) (unknown) (no (unknown) (unknown) History of surgery (units (unknown) date) unknown) (unknown) (no (unknown) (unknown) Hydrocodone-acetami (unit s (unknown) date) nophen 5-325 mg 1 unknown) tab q.6 hours as needed (unknown) (no (unknown) (unknown) Intake Clinical (units (unknown) date) Staff unknown) (unknown) (no (unknown) (unknown) Intake Note: (units (u nknown) date) unknown) (unknown) (no (unknown) (unknown) Intake performed (units (unknown) date) by: unknown) Shell Portillo (unknown) (no (unknown) (unknown) Intake (units (unkno wn) date) unknown) (unknown) (no (unknown) (unknown) Intervention: Date: (unit s (unknown) date) Outcome: unknown) (unknown) (no (unknown) (unknown) Is patient in (units ( unknown) date) pain?: Yes Pain unknown) scale (1-10): 5 (unknown) (no (unknown) (unknown) JUSTIFICATION OF (units (unknown) date) MEDICAL NECESSITY unknown) (unknown) (no (unknown) (unknown) L-spine/T-spine/C-s (unit s (unknown) date) pine MRI ordered to unknown) better delineate the anatomy and help (unknown) (no (unknown) (unknown) L2 Hip Flexion 5/5 (units (unknown) date) 5/5? unknown) (unknown) (no (unknown) (unknown) L3 Knee Extension (units (unknown) date) 5/5 5/5 unknown) (unknown) (no (unknown) (unknown) L3-4 Patella 2+ 2 (units (unknown) date) unknown) (unknown) (no (unknown) (unknown) L4 Ankle (units (unkno wn) date) Dorsiflexion 5/5 5/5 unknown) (unknown) (no (unknown) (unknown) L5 Long Toe (units (un known) date) Extension 5/5 5/5 unknown) (unknown) (no (unknown) (unknown) Brittany has a history (units (unknown) date) of chronic low back unknown) pain with an acute exacerbation on (unknown) (no (unknown) (unknown) Brittany is a (units (unkn own) date) 32-year-old female unknown) with a history of ASD, depression, ADHD, obesity (unknown) (no (unknown) (unknown) Lidocaine patch 5% (units (unknown) date) unknown) (unknown) (no (unknown) (unknown) Loc: PAIN (units (unkn own) date) unknown) (unknown) (no (unknown) (unknown) MSK: System (units (un known) date) reviewed and no unknown) additional complaints, except as documented. (unknown) (no (unknown) (unknown) Medical History (units (unknown) date) (Updated 11/15/22 @ unknown) 11:51 by Glen Ojeda MD) (unknown) (no (unknown) (unknown) Medications (units (un known) date) unknown) (unknown) (no (unknown) (unknown) Medications: (units (u nknown) date) unknown) (unknown) (no (unknown) (unknown) Mental health (units ( unknown) date) problem unknown) (unknown) (no (unknown) (unknown) Mother Depression (units (unknown) date) unknown) (unknown) (no (unknown) (unknown) Motor (units (unkno wn) date) unknown) (unknown) (no (unknown) (unknown) Musculoskeletal: (units (unknown) date) unknown) (unknown) (no (unknown) (unknown) Nearsightedness (units (unknown) date) unknown) (unknown) (no (unknown) (unknown) Neuro: System (units ( unknown) date) reviewed and no unknown) additional complaints, except as documented. (unknown) (no (unknown) (unknown) Neurologic: (units (un known) date) unknown) (unknown) (no (unknown) (unknown) Not indicated at (units (unknown) date) this time. 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 [He/she] has unknown) attended for [sessions] (unknown) (no (unknown) (unknown) PTSD (units (unkno wn) date) (post-traumatic unknown) stress disorder) (-1999) (unknown) (no (unknown) (unknown) Pain Scale (units (unk nown) date) unknown) (unknown) (no (unknown) (unknown) Pain Visit (units (unk nown) date) unknown) (unknown) (no (unknown) (unknown) Pain (units (unkno wn) date) location/Radiation: unknown) (unknown) (no (unknown) (unknown) Pain rating: /10 (units (unknown) date) today, /10 at worst unknown) (unknown) (no (unknown) (unknown) Painful menstrual (units (unknown) date) periods () unknown) (unknown) (no (unknown) (unknown) Patient will return (unit s (unknown) date) for []. Risks and unknown) benefits were discussed. (unknown) (no (unknown) (unknown) Patient's pain has (units (unknown) date) been present for >6 unknown) weeks and is an average of >6/10 on 0-10 (unknown) (no (unknown) (unknown) Patient: White (units (unknown) date) Brittany Lindquist MR# unknown) (unknown) (no (unknown) (unknown) Plan (units (unkno wn) date) unknown) (unknown) (no (unknown) (unknown) Plan/Recommendation (unit s (unknown) date) s: unknown) (unknown) (no (unknown) (unknown) Polyhydramnios (units (unknown) date) unknown) (unknown) (no (unknown) (unknown) Position Sitting (units (unknown) date) unknown) (unknown) (no (unknown) (unknown) (units (unk nown) date) depression unknown) (unknown) (no (unknown) (unknown) Prescriptions (units ( unknown) date) Written: [] unknown) (unknown) (no (unknown) (unknown) Previous (units (unknown) date) section unknown) (unknown) (no (unknown) (unknown) Previous pain (units ( unknown) date) treatments included: unknown) (unknown) (no (unknown) (unknown) Psych: Appropriate (units (unknown) date) affect, answers unknown) questions appropriately (unknown) (no (unknown) (unknown) Pulse 84 (units (unkno wn) date) unknown) (unknown) (no (unknown) (unknown) Pulse Oximetry (%) (units (unknown) date) 98 unknown) (unknown) (no (unknown) (unknown) Pulse Source (units (u nknown) date) Monitor unknown) (unknown) (no (unknown) (unknown) Quality and timing (units (unknown) date) of pain: unknown) (unknown) (no (unknown) (unknown) ROS Narrative (units ( unknown) date) unknown) (unknown) (no (unknown) (unknown) ROS Narrative: (units (unknown) date) unknown) (unknown) (no (unknown) (unknown) ROS (units (unkno wn) date) unknown) (unknown) (no (unknown) (unknown) Reason For Visit (units (unknown) date) unknown) (unknown) (no (unknown) (unknown) Red flag symptoms: (units (unknown) date) unknown) (unknown) (no (unknown) (unknown) Reflex Right Left (units (unknown) date) unknown) (unknown) (no (unknown) (unknown) Reflexes: (units (unkn own) date) unknown) (unknown) (no (unknown) (unknown) Relieving factors (units (unknown) date) include: unknown) (unknown) (no (unknown) (unknown) Respiratory: (units (u nknown) date) Non-labored unknown) breathing pattern on RA. No respiratory distress (unknown) (no (unknown) (unknown) 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 unknown) (unknown) (no (unknown) (unknown) S1 Ankle (units (unkno wn) date) Plantarflexion 5/5 unknown) 5/5 (unknown) (no (unknown) (unknown) S1-2 Achilles 2+ 2 (units (unknown) date) unknown) (unknown) (no (unknown) (unknown) Saddle anesthesia: (units (unknown) date) denies unknown) (unknown) (no (unknown) (unknown) Safety (units (unkno wn) date) unknown) (unknown) (no (unknown) (unknown) Segment Action (units (unknown) date) Right Left unknown) (unknown) (no (unknown) (unknown) Segment Reflex (units (unknown) date) Right Left unknown) (unknown) (no (unknown) (unknown) Sensory -? Intact (units (unknown) date) to light touch of unknown) bilateral lower extremities. Allodynia (unknown) (no (unknown) (unknown) Signed By: (units (unk nown) date) unknown) (unknown) (no (unknown) (unknown) Skin: No (units (unkno wn) date) appreciable rashes unknown) or skin breakdown (unknown) (no (unknown) (unknown) Smoking Status: (units (unknown) date) Former smoker unknown) (unknown) (no (unknown) (unknown) Social History (units (unknown) date) unknown) (unknown) (no (unknown) (unknown) Son Hearing loss (units (unknown) date) unknown) (unknown) (no (unknown) (unknown) Standing: (units (unkn own) date) unknown) (unknown) (no (unknown) (unknown) Surgery: Patient is (unit s (unknown) date) s/p unknown) (unknown) (no (unknown) (unknown) Surgical History (units (unknown) date) (Updated 07/12/22 @ unknown) 15:10 by Josefina Baumann MD) (unknown) (no (unknown) (unknown) Temp 97.6 F (units (un known) date) unknown) (unknown) (no (unknown) (unknown) Temp Source (units (un known) date) Temporal Artery Scan unknown) (unknown) (no (unknown) (unknown) [facility] (unit s (unknown) date) Management unknown) (unknown) (no (unknown) (unknown) This note may have (units (unknown) date) been all or unknown) partially generated using voice recognition (unknown) (no (unknown) (unknown) Tobacco + Substance (unit s (unknown) date) Use unknown) (unknown) (no (unknown) (unknown) Tobacco Status (units (unknown) date) unknown) (unknown) (no (unknown) (unknown) Today I have (units (u nknown) date) reviewed available unknown) medical information in the patient's medical (unknown) (no (unknown) (unknown) Type(s) of (units (unk nown) date) exercise: walking unknown) (unknown) (no (unknown) (unknown) [place] (units (unknown) date) Signs: unknown) (unknown) (no (unknown) (unknown) 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 (unknown) (no (unknown) (unknown) We reviewed (units (unk nown) date) etiology, unknown) predisposing factor(s), natural course, imaging results as (unknown) (no (unknown) (unknown) Weakness: denies (units (unknown) date) unknown) (unknown) (no (unknown) (unknown) Weight 271 lb 8 oz (units (unknown) date) unknown) (unknown) (no (unknown) (unknown) [place] teeth (units (u nknown) date) extracted unknown) (unknown) (no (unknown) (unknown) additional social (units (unknown) date) history: Difficulty unknown) other children. Would (unknown) (no (unknown) (unknown) alcohol intake: (units (unknown) date) former unknown) (unknown) (no (unknown) (unknown) and chronic low (units (unknown) date) back pain who unknown) presents for further evaluation of low back pain. (unknown) (no (unknown) (unknown) benefits of various (unit s (unknown) date) treatment options unknown) were discussed with the patient in great (unknown) (no (unknown) (unknown) bowel/bladder (units (u nknown) date) dysfunction, and unknown) perineal numbness were discussed. The patient was (unknown) (no (unknown) (unknown) caffeine: Yes (soft (unit s (unknown) date) drinks in small unknown) quantities, well within 200mg limit) (unknown) (no (unknown) (unknown) cannot tolerate (units (unknown) date) physical therapy at unknown) the current time due to the intensity of the (unknown) (no (unknown) (unknown) carbon monox (units (u nknown) date) detector in home: unknown) Yes (unknown) (no (unknown) (unknown) current (units (unkno wn) date) occupational unknown) exposures/hazards: Yes (unknown) (no (unknown) (unknown) daily servings (units (unknown) date) fruits/ve or unknown) more times/day (unknown) (no (unknown) (unknown) delivery. (units (unkn own) date) unknown) (unknown) (no (unknown) (unknown) detail. (units (unkno wn) date) unknown) (unknown) (no (unknown) (unknown) disc protrusion (units (unknown) date) without canal unknown) stenosis at C5-6. (unknown) (no (unknown) (unknown) do you feel safe at (unit s (unknown) date) home: Yes unknown) (unknown) (no (unknown) (unknown) [...] Allergy (units (unknown) date) (Severe, Verified unknown) 02/07/23 08:41) (unknown) (no (unknown) (unknown) foraminal stenosis (units (unknown) date) and a mild right unknown) paracentral disc protrusion at L5-S1 without (unknown) (no (unknown) (unknown) grade breast pump (units (unknown) date) that she can have unknown) when she goes home from hospital after (unknown) (no (unknown) (unknown) have occurred. If (units (unknown) date) there are any unknown) questions, please contact the Medical Records (unknown) (no (unknown) (unknown) household members: (units (unknown) date) spouse, family unknown) ([id number] and his 3 children (moving out (unknown) (no (unknown) (unknown) housing: house (units (unknown) date) unknown) (unknown) (no (unknown) (unknown) improved sleep, (units (unknown) date) improved mobility, unknown) etc. (unknown) (no (unknown) (unknown) in PT. [] (units (unkn own) date) unknown) (unknown) (no (unknown) (unknown) instructed to (units ( unknown) date) report to the unknown) Emergency department, if these symptoms occur. (unknown) (no (unknown) (unknown) instructed to stop (units (unknown) date) if any side effects. unknown) [] (unknown) (no (unknown) (unknown) intravenous drug (units (unknown) date) use, sustained unknown) glucocorticoid use, osteoporosis, or a focal (unknown) (no (unknown) (unknown) levothyroxine 137 (units (unknown) date) mcg tablet 137 mcg unknown) PO DAILY #30 tabs 10/17/22 [Rx Confirmed (unknown) (no (unknown) (unknown) lives (units (unkno wn) date) independently: Yes unknown) (unknown) (no (unknown) (unknown) local anesthetic. (units (unknown) date) During that time unknown) patient able to participate in ADLs, had (unknown) (no (unknown) (unknown) low back pain and (units (unknown) date) headaches and the unknown) symptoms were felt to be likely related to a (unknown) (no (unknown) (unknown) lumbar spine showed (unit s (unknown) date) multilevel facet unknown) hypertrophy, no central canal stenosis or (unknown) (no (unknown) (unknown) marital status: (units (unknown) date) unknown) (unknown) (no (unknown) (unknown) may occur. (units (unk nown) date) Occasional unknown) wrong-word or 'sound-alike' substitutions may have (unknown) (no (unknown) (unknown) meds. [] (units (unkno wn) date) unknown) (unknown) (no (unknown) (unknown) negative, (units (unkn own) date) Hyperalgesia - unknown) negative (unknown) (no (unknown) (unknown) nerve root (units (unk nown) date) impingement. unknown) Thoracic spine MRI was grossly unremarkable. Cervical (unknown) (no (unknown) (unknown) neurological (units (u nknown) date) deficit with unknown) progressive or disabling symptoms. (unknown) (no (unknown) (unknown) number of children: (unit s (unknown) date) 3 unknown) (unknown) (no (unknown) (unknown) occupational (units (u nknown) date) status: unemployed unknown) and previously employed (unknown) (no (unknown) (unknown) occurred due to the (unit s (unknown) date) inherent limitations unknown) of voice recognition software. Please (unknown) (no (unknown) (unknown) of Spinal Cord (units (unknown) date) Injury) unknown) (unknown) (no (unknown) (unknown) or (units (unkno wn) date) immunosuppressive unknown) therapy, previous or current cancer diagnosis, history of (unknown) (no (unknown) (unknown) pain. [] (units (unkno wn) date) unknown) (unknown) (no (unknown) (unknown) patches and a (units ( unknown) date) prednisone taper. unknown) She was referred to Neurology on 12/29/2022 for (unknown) (no (unknown) (unknown) pets and animals: (units (unknown) date) Yes (horses) unknown) (unknown) (no (unknown) (unknown) post epidural blood (unit s (unknown) date) patch. She was unknown) referred to physical therapy. MRI of the (unknown) (no (unknown) (unknown) prenat.vits,alexey,min (unit s (unknown) date) -iron-folic 1 tab PO unknown) DAILY 04/22/22 [History Confirmed (unknown) (no (unknown) (unknown) read the note (units ( unknown) date) carefully and unknown) recognize, using context, where these substitutions (unknown) (no (unknown) (unknown) really like to meet (unit s (unknown) date) w/ [facility] prior to unknown) delivery and would like Rx for hospital (unknown) (no (unknown) (unknown) record, including (units (unknown) date) relevant provider unknown) notes, laboratory work, and imaging. (unknown) (no (unknown) (unknown) scale and/or pain (units (unknown) date) interferes with unknown) ADLs. (unknown) (no (unknown) (unknown) seatbelt use: (units ( unknown) date) always unknown) (unknown) (no (unknown) (unknown) second hand (units (un known) date) exposure: No unknown) (unknown) (no (unknown) (unknown) software. Although (units (unknown) date) every effort is made unknown) to edit content, websphere message broker developer errors (unknown) (no (unknown) (unknown) soon)) and children (unit s (unknown) date) unknown) (unknown) (no (unknown) (unknown) special roland (units ( unknown) date) needs: No unknown) (unknown) (no (unknown) (unknown) spinal headache (units (unknown) date) secondary to spinal unknown) anesthesia for . She is status (unknown) (no (unknown) (unknown) spine MRI showed (units (unknown) date) right paracentral unknown) annulus tear plus minimal right paracentral (unknown) (no (unknown) (unknown) substance use type: (units (unknown) date) marijuana (in the unknown) past, not recently and not while ) (unknown) (no (unknown) (unknown) therapeutic (units (un known) date) injections and unknown) surgery. The risks, consequences, alternatives and (unknown) (no (unknown) (unknown) therapy. ?A (units (un known) date) referral was unknown) provided for the patient. [] (unknown) (no (unknown) (unknown) water heater temp (units (unknown) date) set < 120 deg: Yes unknown) (unknown) (no (unknown) (unknown) well as treatment (units (unknown) date) options including unknown) medications, physical therapy/exercise, (unknown) (no (unknown) (unknown) well-balanced diet: (unit s (unknown) date) daily or most days unknown) (unknown) (no (unknown) (unknown) with future (units (un known) date) treatment planning. unknown) [] (unknown) (no (unknown) (unknown) without evidence of (unit s (unknown) date) ataxia. Lower unknown) quarter stability intact.] (unknown) (no (unknown) (unknown) working smoke (units ( unknown) date) detector in home: unknown) Yes Result panel 17 (unknown) (no (unknown) (unknown) (no value) (units (unk nown) date) unknown) (unknown) (no (unknown) (unknown) (0=absent, 1=slight (unit s (unknown) date) response, unknown) 2=brisk/normal, 3=very brisk, 4=clonus) (unknown) (no (unknown) (unknown) (segments are from (units (unknown) date) the International unknown) Standards for Neurological Classification (unknown) (no (unknown) (unknown) - Activity: (units (un known) date) Continue activity as unknown) tolerated. [] (unknown) (no (unknown) (unknown) - Chiropractor, (units (unknown) date) acupuncture[] unknown) (unknown) (no (unknown) (unknown) - Continues (units (unk nown) date) clinician directed unknown) home exercise program including exercises learned (unknown) (no (unknown) (unknown) - Education: Cauda (units (unknown) date) equina and unknown) associated symptoms, including motor weakness, (unknown) (no (unknown) (unknown) - FADIR: [(-/+) on (units (unknown) date) the R side / L side unknown) / bilaterally] (unknown) (no (unknown) (unknown) - Follow-up: [] (units (unknown) date) unknown) (unknown) (no (unknown) (unknown) - Hip ROM is: [WNL (units (unknown) date) / limited and unknown) painful on the R sided / L side / bilaterally] (unknown) (no (unknown) (unknown) - I discussed (units ( unknown) date) risks, benefits and unknown) side effects. Additionally, patient was (unknown) (no (unknown) (unknown) - Imaging: No new (units (unknown) date) imaging indicated at unknown) this time. [] (unknown) (no (unknown) (unknown) - (units (unkno wn) date) Interventional/Surgi unknown) alexey procedures: None indicated at this time. [] (unknown) (no (unknown) (unknown) - Lumbar facet (units (unknown) date) loading: [(-/+) on unknown) the R side / L side / bilaterally] (unknown) (no (unknown) (unknown) - Medications: No (units (unknown) date) new prescription at unknown) this time. Patient will continue current (unknown) (no (unknown) (unknown) - Medications: (units (unknown) date) acetaminophen, unknown) NSAIDS, neuropathics, muscle relaxants [] (unknown) (no (unknown) (unknown) - Physical Therapy: (unit s (unknown) date) Completed 6 week unknown) course in the last 6 months OR Patient (unknown) (no (unknown) (unknown) - Physical (units (unk nown) date) therapy/modalities/D unknown) ME: Patient will likely benefit from physical (unknown) (no (unknown) (unknown) - Prescription (units (unknown) date) provided and unknown) uptitration instructions given if necessary. [] (unknown) (no (unknown) (unknown) - Previous [] on [] (units (unknown) date) provided []% relief unknown) of pain for the expected duration of the (unknown) (no (unknown) (unknown) - Referrals: None (units (unknown) date) indicated at this unknown) time. [] (unknown) (no (unknown) (unknown) - SIJ provocation (units (unknown) date) testing: [ (+/-) unknown) George's finger test, posterior thrust, (unknown) (no (unknown) (unknown) - Straight Leg (units (unknown) date) Raise: [(-/+) on the unknown) L side / R side / bilaterally] (unknown) (no (unknown) (unknown) 01/14/2023. She (units (unknown) date) presented to the unknown) emergency department and was given lidocaine (unknown) (no (unknown) (unknown) 02/07/23 (units (unkno wn) date) unknown) (unknown) (no (unknown) (unknown) 02/07/23] (units (unkn own) date) unknown) (unknown) (no (unknown) (unknown) 09:29 (units (unkno wn) date) unknown) (unknown) (no (unknown) (unknown) : [id number] (units (u nknown) date) unknown) (unknown) (no (unknown) (unknown) ? Inspection -? No (units (unknown) date) gross appendicular unknown) or axial deformities (unknown) (no (unknown) (unknown) ? Palpation -? (units (unknown) date) [Tender to palpation unknown) of / No tenderness to palpation] (unknown) (no (unknown) (unknown) ? ROM - [Lumbar (units (unknown) date) flexion/ extension/ unknown) lateral rotation is limited due to pain / (unknown) (no (unknown) (unknown) ? Special tests (units (unknown) date) unknown) (unknown) (no (unknown) (unknown) ? (units (un known) date) Acetaminophen - unknown) doesn't help (unknown) (no (unknown) (unknown) ? (units (un known) date) Antidepressants - unknown) celexa - no longer taking (unknown) (no (unknown) (unknown) ? (units (un known) date) Antiepileptics - unknown) denies (unknown) (no (unknown) (unknown) ? Muscle (units (unknown) date) Relaxants - denies unknown) (unknown) (no (unknown) (unknown) ? NSAIDs (units (unknown) date) - naproxen, unknown) ibuprofen (unknown) (no (unknown) (unknown) ? Opioids (unit s (unknown) date) - unknown) Hydrocodone-acetamin ophen 5-325 mg 1 tab q.6 hours as (unknown) (no (unknown) (unknown) ? (units (un known) date) Steroids - denies unknown) (unknown) (no (unknown) (unknown) ? (units (un known) date) Topicals - lidoderm unknown) (unknown) (no (unknown) (unknown) ADHD (units (unkno wn) date) unknown) (unknown) (no (unknown) (unknown) Accompanied by: (units (unknown) date) Self / Same As unknown) Patient (unknown) (no (unknown) (unknown) Additional Social (units (unknown) date) History unknown) (unknown) (no (unknown) (unknown) Age/Sex: 32 / F (units (unknown) date) Date of Service: unknown) (unknown) (no (unknown) (unknown) Aggravating factors (unit s (unknown) date) include: sitting, unknown) chores that require bending (unknown) (no (unknown) (unknown) Alcoholism (units (unk nown) date) unknown) (unknown) (no (unknown) (unknown) All other systems (units (unknown) date) reviewed and are unknown) unremarkable except as noted in HPI. (unknown) (no (unknown) (unknown) Allergies (units (unkn own) date) unknown) (unknown) (no (unknown) (unknown) [place] [id number] (unit s (unknown) date) unknown) (unknown) (no (unknown) (unknown) Anaphylaxis (units (un known) date) unknown) (unknown) (no (unknown) (unknown) Anesthesia (units (unk nown) date) unknown) (unknown) (no (unknown) (unknown) Assessment + Plan (units (unknown) date) unknown) (unknown) (no (unknown) (unknown) Assessment: (units (un known) date) unknown) (unknown) (no (unknown) (unknown) Attending Dr: (units ( unknown) date) Celio Tejada MD unknown) (unknown) (no (unknown) (unknown) BMI 45.1 (units (unkno wn) date) unknown) (unknown) (no (unknown) (unknown) BP 115/70 (units (unkn own) date) unknown) (unknown) (no (unknown) (unknown) Babinski's (units (unk nown) date) Downgoing Downgoing unknown) (unknown) (no (unknown) (unknown) Blood Pressure (units (unknown) date) Location Rt brachial unknown) (unknown) (no (unknown) (unknown) Bowel and bladder: (units (unknown) date) No loss of control unknown) (unknown) (no (unknown) (unknown) Cardiovascular: No (units (unknown) date) edema or cyanosis. unknown) 2+ peripheral pulses (unknown) (no (unknown) (unknown) Carpal tunnel (units ( unknown) date) syndrome () unknown) (unknown) (no (unknown) (unknown) Chart review: (units ( unknown) date) unknown) (unknown) (no (unknown) (unknown) Chief Complaint (units (unknown) date) unknown) (unknown) (no (unknown) (unknown) Chief Complaint: (units (unknown) date) Low back pain unknown) (unknown) (no (unknown) (unknown) Clonus None None (units (unknown) date) unknown) (unknown) (no (unknown) (unknown) Conservative (units (u nknown) date) management includes: unknown) (unknown) (no (unknown) (unknown) Consult to discuss (units (unknown) date) low back pain s/p unknown) 11/2022 (unknown) (no (unknown) (unknown) Continue current (units (unknown) date) physical therapy. [] unknown) (unknown) (no (unknown) (unknown) Continue home (units ( unknown) date) exercise program. 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 unknown) (unknown) (no (unknown) (unknown) Details: (units (unkno wn) date) unknown) (unknown) (no (unknown) (unknown) Diet and Exercise (units (unknown) date) unknown) (unknown) (no (unknown) (unknown) Documented By: (units (unknown) date) Celio Tejada MD unknown) 02/02/23 1412 (unknown) (no (unknown) (unknown) Draft (units (unkno wn) date) unknown) (unknown) (no (unknown) (unknown) Exam Narrative (units (unknown) date) unknown) (unknown) (no (unknown) (unknown) Exam Narrative: (units (unknown) date) unknown) (unknown) (no (unknown) (unknown) Exam (units (unkno wn) date) unknown) (unknown) (no (unknown) (unknown) [place] MORENO's, (units (unknown) date) Pelvic rocking on unknown) the R/L side / bilaterally] (unknown) (no (unknown) (unknown) Family History (units (unknown) date) (Updated 06/08/22 @ unknown) 21:23 by Aurora Arevalo) (unknown) (no (unknown) (unknown) Father Diabetes (units (unknown) date) mellitus unknown) (unknown) (no (unknown) (unknown) Foot pain () (units (unknown) date) unknown) (unknown) (no (unknown) (unknown) Gait/Station - (units (unknown) date) [Non-antalgic gait. unknown) Heel/toe walking intact. Tandem gait normal (unknown) (no (unknown) (unknown) General: (units (unkno wn) date) Well-nourished, unknown) well-developed, [sex] in no acute distress (unknown) (no (unknown) (unknown) HPI (units (unkno wn) date) unknown) (unknown) (no (unknown) (unknown) Heavy menstrual (units (unknown) date) period () unknown) (unknown) (no (unknown) (unknown) Height 5 ft 5 in (units (unknown) date) unknown) (unknown) (no (unknown) (unknown) History of (units (unk nown) date) polyhydramnios unknown) (unknown) (no (unknown) (unknown) History of surgery (units (unknown) date) unknown) (unknown) (no (unknown) (unknown) Intake Clinical (units (unknown) date) Staff unknown) (unknown) (no (unknown) (unknown) Intake Note: (units (u nknown) date) unknown) (unknown) (no (unknown) (unknown) Intake performed (units (unknown) date) by: unknown) Shell Portillo (unknown) (no (unknown) (unknown) Intake (units (unkno wn) date) unknown) (unknown) (no (unknown) (unknown) Intervention: Date: (unit s (unknown) date) Outcome: unknown) (unknown) (no (unknown) (unknown) Is patient in (units ( unknown) date) pain?: Yes Pain unknown) scale (1-10): 5 (unknown) (no (unknown) (unknown) JUSTIFICATION OF (units (unknown) date) MEDICAL NECESSITY unknown) (unknown) (no (unknown) (unknown) L-spine/T-spine/C-s (unit s (unknown) date) pine MRI ordered to unknown) better delineate the anatomy and help (unknown) (no (unknown) (unknown) L2 Hip Flexion 5/5 (units (unknown) date) 5/5? unknown) (unknown) (no (unknown) (unknown) L3 Knee Extension (units (unknown) date) 5/5 5/5 unknown) (unknown) (no (unknown) (unknown) L3-4 Patella 2+ 2 (units (unknown) date) unknown) (unknown) (no (unknown) (unknown) L4 Ankle (units (unkno wn) date) Dorsiflexion 5/5 5/5 unknown) (unknown) (no (unknown) (unknown) L5 Long Toe (units (un known) date) Extension 5/5 5/5 unknown) (unknown) (no (unknown) (unknown) Brittany has a history (units (unknown) date) of chronic low back unknown) pain with an acute exacerbation on (unknown) (no (unknown) (unknown) Brittany is a (units (unkn own) date) 32-year-old female unknown) with a history of ASD, depression, ADHD, obesity (unknown) (no (unknown) (unknown) Lidocaine patch 5% (units (unknown) date) PRN unknown) (unknown) (no (unknown) (unknown) Loc: PAIN (units (unkn own) date) unknown) (unknown) (no (unknown) (unknown) MSK: System (units (un known) date) reviewed and no unknown) additional complaints, except as documented. (unknown) (no (unknown) (unknown) Medical History (units (unknown) date) (Updated 11/15/22 @ unknown) 11:51 by Glen Ojeda MD) (unknown) (no (unknown) (unknown) Medications (units (un known) date) unknown) (unknown) (no (unknown) (unknown) Medications: (units (u nknown) date) unknown) (unknown) (no (unknown) (unknown) Mental health (units ( unknown) date) problem unknown) (unknown) (no (unknown) (unknown) Mother Depression (units (unknown) date) unknown) (unknown) (no (unknown) (unknown) Motor (units (unkno wn) date) unknown) (unknown) (no (unknown) (unknown) Musculoskeletal: (units (unknown) date) unknown) (unknown) (no (unknown) (unknown) Nearsightedness (units (unknown) date) unknown) (unknown) (no (unknown) (unknown) Neuro: System (units ( unknown) date) reviewed and no unknown) additional complaints, except as documented. (unknown) (no (unknown) (unknown) Neurologic: (units (un known) date) unknown) (unknown) (no (unknown) (unknown) Not indicated at (units (unknown) date) this time. [] unknown) (unknown) (no (unknown) (unknown) Numbness/Tingling: (units (unknown) date) occasional tingling unknown) of the posterior left thigh (unknown) (no (unknown) (unknown) Onset/Context of (units (unknown) date) pain: unknown) (unknown) (no (unknown) (unknown) Onset: chronic, (units (unknown) date) worsened after EBP unknown) (unknown) (no (unknown) (unknown) Other: denies (units ( unknown) date) unknown) (unknown) (no (unknown) (unknown) Oxygen Delivery (units (unknown) date) Method room air unknown) (unknown) (no (unknown) (unknown) PFSH (units (unkno wn) date) unknown) (unknown) (no (unknown) (unknown) PT: PT scheduled (units (unknown) date) out for March 2023 at unknown) [employer] (unknown) (no (unknown) (unknown) PTSD (units (unkno wn) date) (post-traumatic unknown) stress disorder) (-1999) (unknown) (no (unknown) (unknown) Pain Scale (units (unk nown) date) unknown) (unknown) (no (unknown) (unknown) Pain Visit (units (unk nown) date) unknown) (unknown) (no (unknown) (unknown) Pain (units (unkno wn) date) location/Radiation: unknown) Across the low back, denies radiation (unknown) (no (unknown) (unknown) Pain ratin/10 (units (unknown) date) today, 9/10 at worst unknown) (unknown) (no (unknown) (unknown) Painful menstrual (units (unknown) date) periods () unknown) (unknown) (no (unknown) (unknown) Patient will return (unit s (unknown) date) for []. Risks and unknown) benefits were discussed. (unknown) (no (unknown) (unknown) Patient's pain has (units (unknown) date) been present for >6 unknown) weeks and is an average of >6/10 on 0-10 (unknown) (no (unknown) (unknown) Patient: White (units (unknown) date) Brittany Lindquist MR# unknown) (unknown) (no (unknown) (unknown) Plan (units (unkno wn) date) unknown) (unknown) (no (unknown) (unknown) Plan/Recommendation (unit s (unknown) date) s: unknown) (unknown) (no (unknown) (unknown) Planned . (units (unknown) date) History herniated unknown) disc and chronic back pain. (unknown) (no (unknown) (unknown) Polyhydramnios (units (unknown) date) unknown) (unknown) (no (unknown) (unknown) Position Sitting (units (unknown) date) unknown) (unknown) (no (unknown) (unknown) (units (unk nown) date) depression unknown) (unknown) (no (unknown) (unknown) Prescriptions (units ( unknown) date) Written: [] unknown) (unknown) (no (unknown) (unknown) Previous (units (unknown) date) section unknown) (unknown) (no (unknown) (unknown) Previous pain (units ( unknown) date) treatments included: unknown) (unknown) (no (unknown) (unknown) Psych: Appropriate (units (unknown) date) affect, answers unknown) questions appropriately (unknown) (no (unknown) (unknown) Pulse 84 (units (unkno wn) date) unknown) (unknown) (no (unknown) (unknown) Pulse Oximetry (%) (units (unknown) date) 98 unknown) (unknown) (no (unknown) (unknown) Pulse Source (units (u nknown) date) Monitor unknown) (unknown) (no (unknown) (unknown) Quality and timing (units (unknown) date) of pain: constant, unknown) deep, dull (unknown) (no (unknown) (unknown) ROS Narrative (units ( unknown) date) unknown) (unknown) (no (unknown) (unknown) ROS Narrative: (units (unknown) date) unknown) (unknown) (no (unknown) (unknown) ROS (units (unkno wn) date) unknown) (unknown) (no (unknown) (unknown) Reason For Visit (units (unknown) date) unknown) (unknown) (no (unknown) (unknown) Red flag symptoms: (units (unknown) date) unknown) (unknown) (no (unknown) (unknown) Reflex Right Left (units (unknown) date) unknown) (unknown) (no (unknown) (unknown) Reflexes: (units (unkn own) date) unknown) (unknown) (no (unknown) (unknown) Relieving factors (units (unknown) date) include: lying down unknown) (unknown) (no (unknown) (unknown) Respiratory: (units (u nknown) date) Non-labored unknown) breathing pattern on RA. No respiratory distress (unknown) (no (unknown) (unknown) 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 unknown) (unknown) (no (unknown) (unknown) S1 Ankle (units (unkno wn) date) Plantarflexion 5/5 unknown) 5/5 (unknown) (no (unknown) (unknown) S1-2 Achilles 2+ 2 (units (unknown) date) unknown) (unknown) (no (unknown) (unknown) Saddle anesthesia: (units (unknown) date) denies unknown) (unknown) (no (unknown) (unknown) Safety (units (unkno wn) date) unknown) (unknown) (no (unknown) (unknown) Segment Action (units (unknown) date) Right Left unknown) (unknown) (no (unknown) (unknown) Segment Reflex (units (unknown) date) Right Left unknown) (unknown) (no (unknown) (unknown) Sensory -? Intact (units (unknown) date) to light touch of unknown) bilateral lower extremities. Allodynia (unknown) (no (unknown) (unknown) Signed By: (units (unk nown) date) unknown) (unknown) (no (unknown) (unknown) Skin: No (units (unkno wn) date) appreciable rashes unknown) or skin breakdown (unknown) (no (unknown) (unknown) Smoking Status: (units (unknown) date) Former smoker unknown) (unknown) (no (unknown) (unknown) Social History (units (unknown) date) unknown) (unknown) (no (unknown) (unknown) Son Hearing loss (units (unknown) date) unknown) (unknown) (no (unknown) (unknown) Standing: limited (units (unknown) date) due to pain unknown) (unknown) (no (unknown) (unknown) Surgery: denies (units (unknown) date) unknown) (unknown) (no (unknown) (unknown) Surgical History (units (unknown) date) (Updated 07/12/22 @ unknown) 15:10 by Josefina Baumann MD) (unknown) (no (unknown) (unknown) Temp 97.6 F (units (un known) date) unknown) (unknown) (no (unknown) (unknown) Temp Source (units (un known) date) Temporal Artery Scan unknown) (unknown) (no (unknown) (unknown) [facility] (unit s (unknown) date) Management unknown) (unknown) (no (unknown) (unknown) This note may have (units (unknown) date) been all or unknown) partially generated using voice recognition (unknown) (no (unknown) (unknown) Tobacco + Substance (unit s (unknown) date) Use unknown) (unknown) (no (unknown) (unknown) Tobacco Status (units (unknown) date) unknown) (unknown) (no (unknown) (unknown) Today I have (units (u nknown) date) reviewed available unknown) medical information in the patient's medical (unknown) (no (unknown) (unknown) Type(s) of (units (unk nown) date) exercise: walking unknown) (unknown) (no (unknown) (unknown) [place] (units (unknown) date) Signs: unknown) (unknown) (no (unknown) (unknown) 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 (unknown) (no (unknown) (unknown) We reviewed (units (unk nown) date) etiology, unknown) predisposing factor(s), natural course, imaging results as (unknown) (no (unknown) (unknown) Weakness: denies (units (unknown) date) unknown) (unknown) (no (unknown) (unknown) Weight 271 lb 8 oz (units (unknown) date) unknown) (unknown) (no (unknown) (unknown) [place] teeth (units (u nknown) date) extracted unknown) (unknown) (no (unknown) (unknown) additional social (units (unknown) date) history: Difficulty unknown) other children. Would (unknown) (no (unknown) (unknown) alcohol intake: (units (unknown) date) former unknown) (unknown) (no (unknown) (unknown) and chronic low (units (unknown) date) back pain who unknown) presents for further evaluation of low back pain. (unknown) (no (unknown) (unknown) benefits of various (unit s (unknown) date) treatment options unknown) were discussed with the patient in great (unknown) (no (unknown) (unknown) bowel/bladder (units (u nknown) date) dysfunction, and unknown) perineal numbness were discussed. The patient was (unknown) (no (unknown) (unknown) caffeine: Yes (soft (unit s (unknown) date) drinks in small unknown) quantities, well within 200mg limit) (unknown) (no (unknown) (unknown) cannot tolerate (units (unknown) date) physical therapy at unknown) the current time due to the intensity of the (unknown) (no (unknown) (unknown) carbon monox (units (u nknown) date) detector in home: unknown) Yes (unknown) (no (unknown) (unknown) current (units (unkno wn) date) occupational unknown) exposures/hazards: Yes (unknown) (no (unknown) (unknown) daily servings (units (unknown) date) fruits/ve or unknown) more times/day (unknown) (no (unknown) (unknown) delivery. (units (unkn own) date) unknown) (unknown) (no (unknown) (unknown) detail. (units (unkno wn) date) unknown) (unknown) (no (unknown) (unknown) disc protrusion (units (unknown) date) without canal unknown) stenosis at C5-6. (unknown) (no (unknown) (unknown) do you feel safe at (unit s (unknown) date) home: Yes unknown) (unknown) (no (unknown) (unknown) [...] Allergy (units (unknown) date) (Severe, Verified unknown) 02/07/23 08:41) (unknown) (no (unknown) (unknown) foraminal stenosis (units (unknown) date) and a mild right unknown) paracentral disc protrusion at L5-S1 without (unknown) (no (unknown) (unknown) grade breast pump (units (unknown) date) that she can have unknown) when she goes home from hospital after (unknown) (no (unknown) (unknown) have occurred. If (units (unknown) date) there are any unknown) questions, please contact the Medical Records (unknown) (no (unknown) (unknown) household members: (units (unknown) date) spouse, family unknown) ([id number] and his 3 children (moving out (unknown) (no (unknown) (unknown) housing: house (units (unknown) date) unknown) (unknown) (no (unknown) (unknown) improved sleep, (units (unknown) date) improved mobility, unknown) etc. (unknown) (no (unknown) (unknown) in PT. [] (units (unkn own) date) unknown) (unknown) (no (unknown) (unknown) instructed to (units ( unknown) date) report to the unknown) Emergency department, if these symptoms occur. (unknown) (no (unknown) (unknown) instructed to stop (units (unknown) date) if any side effects. unknown) [] (unknown) (no (unknown) (unknown) intravenous drug (units (unknown) date) use, sustained unknown) glucocorticoid use, osteoporosis, or a focal (unknown) (no (unknown) (unknown) levothyroxine 137 (units (unknown) date) mcg tablet 137 mcg unknown) PO DAILY #30 tabs 10/17/22 [Rx Confirmed (unknown) (no (unknown) (unknown) lives (units (unkno wn) date) independently: Yes unknown) (unknown) (no (unknown) (unknown) local anesthetic. (units (unknown) date) During that time unknown) patient able to participate in ADLs, had (unknown) (no (unknown) (unknown) low back pain and (units (unknown) date) headaches and the unknown) symptoms were felt to be likely related to a (unknown) (no (unknown) (unknown) lumbar spine showed (unit s (unknown) date) multilevel facet unknown) hypertrophy, no central canal stenosis or (unknown) (no (unknown) (unknown) marital status: (units (unknown) date) unknown) (unknown) (no (unknown) (unknown) may occur. (units (unk nown) date) Occasional unknown) wrong-word or 'sound-alike' substitutions may have (unknown) (no (unknown) (unknown) meds. [] (units (unkno wn) date) unknown) (unknown) (no (unknown) (unknown) needed - given by (units (unknown) date) recent ED visit unknown) (unknown) (no (unknown) (unknown) negative, (units (unkn own) date) Hyperalgesia - unknown) negative (unknown) (no (unknown) (unknown) nerve root (units (unk nown) date) impingement. unknown) Thoracic spine MRI was grossly unremarkable. Cervical (unknown) (no (unknown) (unknown) neurological (units (u nknown) date) deficit with unknown) progressive or disabling symptoms. (unknown) (no (unknown) (unknown) number of children: (unit s (unknown) date) 3 unknown) (unknown) (no (unknown) (unknown) occupational (units (u nknown) date) status: unemployed unknown) and previously employed (unknown) (no (unknown) (unknown) occurred due to the (unit s (unknown) date) inherent limitations unknown) of voice recognition software. Please (unknown) (no (unknown) (unknown) of Spinal Cord (units (unknown) date) Injury) unknown) (unknown) (no (unknown) (unknown) or (units (unkno wn) date) immunosuppressive unknown) therapy, previous or current cancer diagnosis, history of (unknown) (no (unknown) (unknown) pain. [] (units (unkno wn) date) unknown) (unknown) (no (unknown) (unknown) patches and a (units ( unknown) date) prednisone taper. unknown) She was referred to Neurology on 12/29/2022 for (unknown) (no (unknown) (unknown) pets and animals: (units (unknown) date) Yes (horses) unknown) (unknown) (no (unknown) (unknown) post epidural blood (unit s (unknown) date) patch. She was unknown) referred to physical therapy. MRI of the (unknown) (no (unknown) (unknown) prenat.vits,alexey,min (unit s (unknown) date) -iron-folic 1 tab PO unknown) DAILY 04/22/22 [History Confirmed (unknown) (no (unknown) (unknown) read the note (units ( unknown) date) carefully and unknown) recognize, using context, where these substitutions (unknown) (no (unknown) (unknown) really like to meet (unit s (unknown) date) w/ IBCLC prior to unknown) delivery and would like Rx for hospital (unknown) (no (unknown) (unknown) record, including (units (unknown) date) relevant provider unknown) notes, laboratory work, and imaging. (unknown) (no (unknown) (unknown) scale and/or pain (units (unknown) date) interferes with unknown) ADLs. (unknown) (no (unknown) (unknown) seatbelt use: (units ( unknown) date) always unknown) (unknown) (no (unknown) (unknown) second hand (units (un known) date) exposure: No unknown) (unknown) (no (unknown) (unknown) software. Although (units (unknown) date) every effort is made unknown) to edit content, websphere message broker developer errors (unknown) (no (unknown) (unknown) soon)) and children (unit s (unknown) date) unknown) (unknown) (no (unknown) (unknown) special roland (units ( unknown) date) needs: No unknown) (unknown) (no (unknown) (unknown) spinal headache (units (unknown) date) secondary to spinal unknown) anesthesia for . She is status (unknown) (no (unknown) (unknown) spine MRI showed (units (unknown) date) right paracentral unknown) annulus tear plus minimal right paracentral (unknown) (no (unknown) (unknown) substance use type: (units (unknown) date) marijuana (in the unknown) past, not recently and not while ) (unknown) (no (unknown) (unknown) therapeutic (units (un known) date) injections and unknown) surgery. The risks, consequences, alternatives and (unknown) (no (unknown) (unknown) therapy. ?A (units (un known) date) referral was unknown) provided for the patient. [] (unknown) (no (unknown) (unknown) water heater temp (units (unknown) date) set < 120 deg: Yes unknown) (unknown) (no (unknown) (unknown) well as treatment (units (unknown) date) options including unknown) medications, physical therapy/exercise, (unknown) (no (unknown) (unknown) well-balanced diet: (unit s (unknown) date) daily or most days unknown) (unknown) (no (unknown) (unknown) with future (units (un known) date) treatment planning. unknown) [] (unknown) (no (unknown) (unknown) without evidence of (unit s (unknown) date) ataxia. Lower unknown) quarter stability intact.] (unknown) (no (unknown) (unknown) working smoke (units ( unknown) date) detector in home: unknown) Yes Result panel 18 (unknown) (no (unknown) (unknown) (no value) (units (unk nown) date) unknown) (unknown) (no (unknown) (unknown) (0=absent, 1=slight (unit s (unknown) date) response, unknown) 2=brisk/normal, 3=very brisk, 4=clonus) (unknown) (no (unknown) (unknown) (1) Low back pain: (units (unknown) date) unknown) (unknown) (no (unknown) (unknown) (segments are from (units (unknown) date) the International unknown) Standards for Neurological Classification (unknown) (no (unknown) (unknown) - Activity: (units (un known) date) Continue activity as unknown) tolerated. (unknown) (no (unknown) (unknown) - Education: Cauda (units (unknown) date) equina and unknown) associated symptoms, including motor weakness, (unknown) (no (unknown) (unknown) - FADIR: Negative (units (unknown) date) bilaterally unknown) (unknown) (no (unknown) (unknown) - Follow-up: 8 (units (unknown) date) weeks unknown) (unknown) (no (unknown) (unknown) - Hip ROM is: (units ( unknown) date) Within normal limits unknown) (unknown) (no (unknown) (unknown) - I discussed (units ( unknown) date) risks, benefits and unknown) side effects. Additionally, patient was (unknown) (no (unknown) (unknown) - Imaging: L-spine (units (unknown) date) x-ray ordered to unknown) better delineate the anatomy and help with (unknown) (no (unknown) (unknown) - (units (unkno wn) date) Interventional/Surgi unknown) alexey procedures: None indicated at this time. (unknown) (no (unknown) (unknown) - Lumbar facet (units (unknown) date) loading: Positive unknown) bilaterally (unknown) (no (unknown) (unknown) - Medications: (units (unknown) date) Prescriptions unknown) Written: Meloxicam 7.5 mg q.day; may increase to (unknown) (no (unknown) (unknown) - Physical (units (unk nown) date) therapy/modalities/D unknown) ME: Patient will likely benefit from physical (unknown) (no (unknown) (unknown) - Prescription (units (unknown) date) provided and unknown) uptitration instructions given if necessary. (unknown) (no (unknown) (unknown) - Referrals: None (units (unknown) date) indicated at this unknown) time. (unknown) (no (unknown) (unknown) - SIJ provocation (units (unknown) date) testing: Negative unknown) bilaterally (unknown) (no (unknown) (unknown) - Straight Leg (units (unknown) date) Raise: Negative unknown) bilaterally (unknown) (no (unknown) (unknown) 01/14/2023. She (units (unknown) date) presented to the unknown) emergency department and was given lidocaine (unknown) (no (unknown) (unknown) 02/07/23 1016 (units ( unknown) date) unknown) (unknown) (no (unknown) (unknown) 02/07/23 (units (unkno wn) date) unknown) (unknown) (no (unknown) (unknown) 02/07/23] (units (unkn own) date) unknown) (unknown) (no (unknown) (unknown) 09:29 (units (unkno wn) date) unknown) (unknown) (no (unknown) (unknown) 15 mg q.day if she (units (unknown) date) does not respond unknown) (unknown) (no (unknown) (unknown) : [id number] (units (u nknown) date) unknown) (unknown) (no (unknown) (unknown) ? Inspection -? No (units (unknown) date) gross appendicular unknown) or axial deformities (unknown) (no (unknown) (unknown) ? Palpation (units (un known) date) -tenderness to unknown) palpation midline low back (unknown) (no (unknown) (unknown) ? ROM -lumbar (units ( unknown) date) extension limited unknown) due to pain (unknown) (no (unknown) (unknown) ? Special tests (units (unknown) date) unknown) (unknown) (no (unknown) (unknown) ? (units (un known) date) Acetaminophen - unknown) doesn't help (unknown) (no (unknown) (unknown) ? (units (un known) date) Antidepressants - unknown) celexa - no longer taking (unknown) (no (unknown) (unknown) ? (units (un known) date) Antiepileptics - unknown) denies (unknown) (no (unknown) (unknown) ? Muscle (units (unknown) date) Relaxants - denies unknown) (unknown) (no (unknown) (unknown) ? NSAIDs (units (unknown) date) - naproxen, unknown) ibuprofen (unknown) (no (unknown) (unknown) ? Opioids (unit s (unknown) date) - unknown) Hydrocodone-acetamin ophen 5-325 mg 1 tab q.6 hours as (unknown) (no (unknown) (unknown) ? (units (un known) date) Steroids - denies unknown) (unknown) (no (unknown) (unknown) ? (units (un known) date) Topicals - lidoderm unknown) (unknown) (no (unknown) (unknown) ADHD (units (unkno wn) date) unknown) (unknown) (no (unknown) (unknown) Accompanied by: (units (unknown) date) Self / Same As unknown) Patient (unknown) (no (unknown) (unknown) Additional Social (units (unknown) date) History unknown) (unknown) (no (unknown) (unknown) Age/Sex: 32 / F (units (unknown) date) Date of Service: unknown) (unknown) (no (unknown) (unknown) Aggravating factors (unit s (unknown) date) include: sitting, unknown) chores that require bending (unknown) (no (unknown) (unknown) Alcoholism (units (unk nown) date) unknown) (unknown) (no (unknown) (unknown) All other systems (units (unknown) date) reviewed and are unknown) unremarkable except as noted in HPI. (unknown) (no (unknown) (unknown) Allergies (units (unkn own) date) unknown) (unknown) (no (unknown) (unknown) [place] [address] (unit s (unknown) date) unknown) (unknown) (no (unknown) (unknown) Anaphylaxis (units (un known) date) unknown) (unknown) (no (unknown) (unknown) Anesthesia (units (unk nown) date) unknown) (unknown) (no (unknown) (unknown) Assessment + Plan (units (unknown) date) unknown) (unknown) (no (unknown) (unknown) Assessment: (units (un known) date) unknown) (unknown) (no (unknown) (unknown) Attending Dr: (units ( unknown) date) Celio Tejada MD unknown) (unknown) (no (unknown) (unknown) BMI 45.1 (units (unkno wn) date) unknown) (unknown) (no (unknown) (unknown) BP 115/70 (units (unkn own) date) unknown) (unknown) (no (unknown) (unknown) Babinski's (units (unk nown) date) Downgoing Downgoing unknown) (unknown) (no (unknown) (unknown) Blood Pressure (units (unknown) date) Location Rt brachial unknown) (unknown) (no (unknown) (unknown) Bowel and bladder: (units (unknown) date) No loss of control unknown) (unknown) (no (unknown) (unknown) 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) unknown) (unknown) (no (unknown) (unknown) Cervical spine MRI (units (unknown) date) showed right unknown) paracentral annulus tear plus minimal right (unknown) (no (unknown) (unknown) Chart review: (units ( unknown) date) unknown) (unknown) (no (unknown) (unknown) Chief Complaint (units (unknown) date) unknown) (unknown) (no (unknown) (unknown) Chief Complaint: (units (unknown) date) Low back pain unknown) (unknown) (no (unknown) (unknown) Chronicity: acute (units (unknown) date) Back pain unknown) laterality: bilateral Sciatica presence: (unknown) (no (unknown) (unknown) Clonus None None (units (unknown) date) unknown) (unknown) (no (unknown) (unknown) Consult to discuss (units (unknown) date) low back pain s/p unknown) 11/2022 (unknown) (no (unknown) (unknown) Current pain (units (u nknown) date) treatments include: unknown) (unknown) (no (unknown) (unknown) : 1990 (units (unknown) date) Acct:[id number] unknown) (unknown) (no (unknown) (unknown) 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 unknown) (unknown) (no (unknown) (unknown) Details: (units (unkno wn) date) unknown) (unknown) (no (unknown) (unknown) Diet and Exercise (units (unknown) date) unknown) (unknown) (no (unknown) (unknown) Documented By: (units (unknown) date) Celio Tejada MD unknown) 02/07/23 1016 (unknown) (no (unknown) (unknown) Exam Narrative (units (unknown) date) unknown) (unknown) (no (unknown) (unknown) Exam Narrative: (units (unknown) date) unknown) (unknown) (no (unknown) (unknown) Exam (units (unkno wn) date) unknown) (unknown) (no (unknown) (unknown) Family History (units (unknown) date) (Updated 06/08/22 @ unknown) 21:23 by Aurora Arevalo) (unknown) (no (unknown) (unknown) Father Diabetes (units (unknown) date) mellitus unknown) (unknown) (no (unknown) (unknown) Foot pain () (units (unknown) date) unknown) (unknown) (no (unknown) (unknown) Gait/Station - (units (unknown) date) Non-antalgic gait. unknown) Heel/toe walking intact. Tandem gait normal (unknown) (no (unknown) (unknown) General: (units (unkno wn) date) Well-nourished, unknown) well-developed, female in no acute distress (unknown) (no (unknown) (unknown) HPI (units (unkno wn) date) unknown) (unknown) (no (unknown) (unknown) Heavy menstrual (units (unknown) date) period () unknown) (unknown) (no (unknown) (unknown) Height 5 ft 5 in (units (unknown) date) unknown) (unknown) (no (unknown) (unknown) History of (units (unk nown) date) polyhydramnios unknown) (unknown) (no (unknown) (unknown) History of surgery (units (unknown) date) unknown) (unknown) (no (unknown) (unknown) Intake Clinical (units (unknown) date) Staff unknown) (unknown) (no (unknown) (unknown) Intake Note: (units (u nknown) date) unknown) (unknown) (no (unknown) (unknown) Intake performed (units (unknown) date) by: unknown) Shell Portillo (unknown) (no (unknown) (unknown) Intake (units (unkno wn) date) unknown) (unknown) (no (unknown) (unknown) Intervention: Date: (unit s (unknown) date) Outcome: unknown) (unknown) (no (unknown) (unknown) Is patient in (units ( unknown) date) pain?: Yes Pain unknown) scale (1-10): 5 (unknown) (no (unknown) (unknown) L2 Hip Flexion 5/5 (units (unknown) date) 5/5? unknown) (unknown) (no (unknown) (unknown) L3 Knee Extension (units (unknown) date) 5/5 5/5 unknown) (unknown) (no (unknown) (unknown) L3-4 Patella 2+ 2 (units (unknown) date) unknown) (unknown) (no (unknown) (unknown) L4 Ankle (units (unkno wn) date) Dorsiflexion 5/5 5/5 unknown) (unknown) (no (unknown) (unknown) L5 Long Toe (units (un known) date) Extension 5/5 5/5 unknown) (unknown) (no (unknown) (unknown) Brittany has a history (units (unknown) date) of chronic low back unknown) pain with an acute exacerbation on (unknown) (no (unknown) (unknown) Brittany is a (units (unkn own) date) 32-year-old female unknown) presenting for further evaluation of acute on (unknown) (no (unknown) (unknown) Brittany is a (units (unkn own) date) 32-year-old female unknown) with a history of ASD, depression, ADHD, obesity (unknown) (no (unknown) (unknown) Lidocaine patch 5% (units (unknown) date) PRN unknown) (unknown) (no (unknown) (unknown) Loc: PAIN (units (unkn own) date) unknown) (unknown) (no (unknown) (unknown) Low back pain (units ( unknown) date) unknown) (unknown) (no (unknown) (unknown) MSK: System (units (un known) date) reviewed and no unknown) additional complaints, except as documented. (unknown) (no (unknown) (unknown) Medical History (units (unknown) date) (Updated 02/07/23 @ unknown) 10:11 by Celio Tejada MD) (unknown) (no (unknown) (unknown) Medications (units (un known) date) unknown) (unknown) (no (unknown) (unknown) Medications: (units (u nknown) date) unknown) (unknown) (no (unknown) (unknown) Mental health (units ( unknown) date) problem unknown) (unknown) (no (unknown) (unknown) Mother Depression (units (unknown) date) unknown) (unknown) (no (unknown) (unknown) Motor (units (unkno wn) date) unknown) (unknown) (no (unknown) (unknown) Musculoskeletal: (units (unknown) date) unknown) (unknown) (no (unknown) (unknown) Nearsightedness (units (unknown) date) unknown) (unknown) (no (unknown) (unknown) Neuro: System (units ( unknown) date) reviewed and no unknown) additional complaints, except as documented. (unknown) (no (unknown) (unknown) Neurologic: (units (un known) date) unknown) (unknown) (no (unknown) (unknown) New (units (unkno wn) date) unknown) (unknown) (no (unknown) (unknown) Numbness/Tingling: (units (unknown) date) occasional tingling unknown) of the posterior left thigh (unknown) (no (unknown) (unknown) Onset/Context of (units (unknown) date) pain: unknown) (unknown) (no (unknown) (unknown) Onset: chronic, (units (unknown) date) worsened after EBP unknown) (unknown) (no (unknown) (unknown) Orders (units (unkno wn) date) unknown) (unknown) (no (unknown) (unknown) Orders: (units (unkno wn) date) unknown) (unknown) (no (unknown) (unknown) Other: denies (units ( unknown) date) unknown) (unknown) (no (unknown) (unknown) Oxygen Delivery (units (unknown) date) Method room air unknown) (unknown) (no (unknown) (unknown) PFSH (units (unkno wn) date) unknown) (unknown) (no (unknown) (unknown) PT: PT scheduled (units (unknown) date) out for March 2023 at unknown) [employer] (unknown) (no (unknown) (unknown) PTSD (units (unkno wn) date) (post-traumatic unknown) stress disorder) (-1999) (unknown) (no (unknown) (unknown) Pain Scale (units (unk nown) date) unknown) (unknown) (no (unknown) (unknown) Pain Visit (units (unk nown) date) unknown) (unknown) (no (unknown) (unknown) Pain (units (unkno wn) date) location/Radiation: unknown) Across the low back, denies radiation (unknown) (no (unknown) (unknown) Pain ratin/10 (units (unknown) date) today, 9/10 at worst unknown) (unknown) (no (unknown) (unknown) Painful menstrual (units (unknown) date) periods () unknown) (unknown) (no (unknown) (unknown) Patient: White (units (unknown) date) Brittany Lindquist MR# unknown) (unknown) (no (unknown) (unknown) Plan (units (unkno wn) date) unknown) (unknown) (no (unknown) (unknown) Plan/Recommendation (unit s (unknown) date) s: unknown) (unknown) (no (unknown) (unknown) Polyhydramnios (units (unknown) date) unknown) (unknown) (no (unknown) (unknown) Position Sitting (units (unknown) date) unknown) (unknown) (no (unknown) (unknown) (units (unk nown) date) depression unknown) (unknown) (no (unknown) (unknown) Previous (units (unknown) date) section unknown) (unknown) (no (unknown) (unknown) Previous pain (units ( unknown) date) treatments included: unknown) (unknown) (no (unknown) (unknown) Psych: Appropriate (units (unknown) date) affect, answers unknown) questions appropriately (unknown) (no (unknown) (unknown) Pulse 84 (units (unkno wn) date) unknown) (unknown) (no (unknown) (unknown) Pulse Oximetry (%) (units (unknown) date) 98 unknown) (unknown) (no (unknown) (unknown) Pulse Source (units (u nknown) date) Monitor unknown) (unknown) (no (unknown) (unknown) Qualifiers: (units (un known) date) unknown) (unknown) (no (unknown) (unknown) Quality and timing (units (unknown) date) of pain: constant, unknown) deep, dull (unknown) (no (unknown) (unknown) ROS Narrative (units ( unknown) date) unknown) (unknown) (no (unknown) (unknown) ROS Narrative: (units (unknown) date) unknown) (unknown) (no (unknown) (unknown) ROS (units (unkno wn) date) unknown) (unknown) (no (unknown) (unknown) Reason For Visit (units (unknown) date) unknown) (unknown) (no (unknown) (unknown) Red flag symptoms: (units (unknown) date) unknown) (unknown) (no (unknown) (unknown) Reflex Right Left (units (unknown) date) unknown) (unknown) (no (unknown) (unknown) Reflexes: (units (unkn own) date) unknown) (unknown) (no (unknown) (unknown) Relieving factors (units (unknown) date) include: lying down unknown) (unknown) (no (unknown) (unknown) Respiratory: (units (u nknown) date) Non-labored unknown) breathing pattern on RA. No respiratory distress (unknown) (no (unknown) (unknown) 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 unknown) (unknown) (no (unknown) (unknown) S1 Ankle (units (unkno wn) date) Plantarflexion 5/5 unknown) 5/5 (unknown) (no (unknown) (unknown) S1-2 Achilles 2+ 2 (units (unknown) date) unknown) (unknown) (no (unknown) (unknown) Saddle anesthesia: (units (unknown) date) denies unknown) (unknown) (no (unknown) (unknown) Safety (units (unkno wn) date) unknown) (unknown) (no (unknown) (unknown) Segment Action (units (unknown) date) Right Left unknown) (unknown) (no (unknown) (unknown) Segment Reflex (units (unknown) date) Right Left unknown) (unknown) (no (unknown) (unknown) Sensory -? Intact (units (unknown) date) to light touch of unknown) bilateral lower extremities. Allodynia (unknown) (no (unknown) (unknown) Signed By: (units (unk nown) date) <Electronically unknown) signed by Celio Tejada MD> (unknown) (no (unknown) (unknown) Signed (units (unkno wn) date) unknown) (unknown) (no (unknown) (unknown) Skin: No (units (unkno wn) date) appreciable rashes unknown) or skin breakdown (unknown) (no (unknown) (unknown) Smoking Status: (units (unknown) date) Former smoker unknown) (unknown) (no (unknown) (unknown) Social History (units (unknown) date) unknown) (unknown) (no (unknown) (unknown) Son Hearing loss (units (unknown) date) unknown) (unknown) (no (unknown) (unknown) Standing: limited (units (unknown) date) due to pain unknown) (unknown) (no (unknown) (unknown) Status: Acute (units ( unknown) date) unknown) (unknown) (no (unknown) (unknown) Surgery: denies (units (unknown) date) unknown) (unknown) (no (unknown) (unknown) Surgical History (units (unknown) date) (Updated 07/12/22 @ unknown) 15:10 by Josefina Baumann MD) (unknown) (no (unknown) (unknown) Temp 97.6 F (units (un known) date) unknown) (unknown) (no (unknown) (unknown) Temp Source (units (un known) date) Temporal Artery Scan unknown) (unknown) (no (unknown) (unknown) [facility] (unit s (unknown) date) Management unknown) (unknown) (no (unknown) (unknown) This note may have (units (unknown) date) been all or unknown) partially generated using voice recognition (unknown) (no (unknown) (unknown) Tobacco + Substance (unit s (unknown) date) Use unknown) (unknown) (no (unknown) (unknown) Tobacco Status (units (unknown) date) unknown) (unknown) (no (unknown) (unknown) Today I have (units (u nknown) date) reviewed available unknown) medical information in the patient's medical (unknown) (no (unknown) (unknown) Type(s) of (units (unk nown) date) exercise: walking unknown) (unknown) (no (unknown) (unknown) [place] (units (unknown) date) Signs: unknown) (unknown) (no (unknown) (unknown) 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 (unknown) (no (unknown) (unknown) We reviewed (units (unk nown) date) etiology, unknown) predisposing factor(s), natural course, imaging results as (unknown) (no (unknown) (unknown) Weakness: denies (units (unknown) date) unknown) (unknown) (no (unknown) (unknown) Weight 271 lb 8 oz (units (unknown) date) unknown) (unknown) (no (unknown) (unknown) [place] teeth (units (u nknown) date) extracted unknown) (unknown) (no (unknown) (unknown) XR lumbar spine min (unit s (unknown) date) 4V Today M54.50 - unknown) Low back pain, unspecified (unknown) (no (unknown) (unknown) additional social (units (unknown) date) history: Difficulty unknown) other children. Would (unknown) (no (unknown) (unknown) alcohol intake: (units (unknown) date) former unknown) (unknown) (no (unknown) (unknown) and chronic low (units (unknown) date) back pain who unknown) presents for further evaluation of low back pain. (unknown) (no (unknown) (unknown) benefits of various (unit s (unknown) date) treatment options unknown) were discussed with the patient in great (unknown) (no (unknown) (unknown) bowel/bladder (units (u nknown) date) dysfunction, and unknown) perineal numbness were discussed. The patient was (unknown) (no (unknown) (unknown) caffeine: Yes (soft (unit s (unknown) date) drinks in small unknown) quantities, well within 200mg limit) (unknown) (no (unknown) (unknown) carbon monox (units (u nknown) date) detector in home: unknown) Yes (unknown) (no (unknown) (unknown) central canal or (units (unknown) date) neuroforaminal unknown) stenosis. There is also evidence of (unknown) (no (unknown) (unknown) chronic low back (units (unknown) date) pain. She reports unknown) long history of low back pain and a history (unknown) (no (unknown) (unknown) current (units (unkno wn) date) occupational unknown) exposures/hazards: Yes (unknown) (no (unknown) (unknown) daily servings (units (unknown) date) fruits/ve or unknown) more times/day (unknown) (no (unknown) (unknown) degenerative disc (units (unknown) date) disease at L4-5 and unknown) L5-S1 as well as Modic changes. Lastly, (unknown) (no (unknown) (unknown) delivery. (units (unkn own) date) unknown) (unknown) (no (unknown) (unknown) detail. (units (unkno wn) date) unknown) (unknown) (no (unknown) (unknown) do you feel safe at (unit s (unknown) date) home: Yes unknown) (unknown) (no (unknown) (unknown) [...] Allergy (units (unknown) date) (Severe, Verified unknown) 02/07/23 08:41) (unknown) (no (unknown) (unknown) future treatment (units (unknown) date) planning. unknown) (unknown) (no (unknown) (unknown) grade breast pump (units (unknown) date) that she can have unknown) when she goes home from hospital after (unknown) (no (unknown) (unknown) have occurred. If (units (unknown) date) there are any unknown) questions, please contact the Medical Records (unknown) (no (unknown) (unknown) household members: (units (unknown) date) spouse, family unknown) ([id number] and his 3 children (moving out (unknown) (no (unknown) (unknown) housing: house (units (unknown) date) unknown) (unknown) (no (unknown) (unknown) instructed to (units ( unknown) date) report to the unknown) Emergency department, if these symptoms occur. (unknown) (no (unknown) (unknown) instructed to stop (units (unknown) date) if any side effects. unknown) (unknown) (no (unknown) (unknown) intravenous drug (units (unknown) date) use, sustained unknown) glucocorticoid use, osteoporosis, or a focal (unknown) (no (unknown) (unknown) levothyroxine 137 (units (unknown) date) mcg tablet 137 mcg unknown) PO DAILY #30 tabs 10/17/22 [Rx Confirmed (unknown) (no (unknown) (unknown) lives (units (unkno wn) date) independently: Yes unknown) (unknown) (no (unknown) (unknown) low back pain and (units (unknown) date) headaches and the unknown) symptoms were felt to be likely related to a (unknown) (no (unknown) (unknown) marital status: (units (unknown) date) unknown) (unknown) (no (unknown) (unknown) may occur. (units (unk nown) date) Occasional unknown) wrong-word or 'sound-alike' substitutions may have (unknown) (no (unknown) (unknown) medication and (units (unknown) date) other NSAIDs should unknown) be avoided while on meloxicam. (unknown) (no (unknown) (unknown) meloxicam 7.5 mg PO (unit s (unknown) date) DAILY 30 tabs 2RF unknown) (unknown) (no (unknown) (unknown) meloxicam 7.5 mg (units (unknown) date) tablet 7.5 mg PO unknown) DAILY #30 tabs 02/07/23 [Rx Confirmed (unknown) (no (unknown) (unknown) multifactorial (units (unknown) date) including components unknown) of vertebrogenic, facet arthropathy and (unknown) (no (unknown) (unknown) myofascial pain. I (units (unknown) date) do not feel there is unknown) a radicular component to her pain at (unknown) (no (unknown) (unknown) needed - given by (units (unknown) date) recent ED visit unknown) (unknown) (no (unknown) (unknown) negative, (units (unkn own) date) Hyperalgesia - unknown) negative (unknown) (no (unknown) (unknown) neurological (units (u nknown) date) deficit with unknown) progressive or disabling symptoms. (unknown) (no (unknown) (unknown) number of children: (unit s (unknown) date) 3 unknown) (unknown) (no (unknown) (unknown) occupational (units (u nknown) date) status: unemployed unknown) and previously employed (unknown) (no (unknown) (unknown) occurred due to the (unit s (unknown) date) inherent limitations unknown) of voice recognition software. Please (unknown) (no (unknown) (unknown) of Spinal Cord (units (unknown) date) Injury) unknown) (unknown) (no (unknown) (unknown) of herniated disc (units (unknown) date) in the lumbar spine. unknown) She reports worsening of her pain status (unknown) (no (unknown) (unknown) or foraminal (units (u nknown) date) stenosis and a mild unknown) right paracentral disc protrusion at L5-S1 (unknown) (no (unknown) (unknown) or (units (unkno wn) date) immunosuppressive unknown) therapy, previous or current cancer diagnosis, history of (unknown) (no (unknown) (unknown) paracentral disc (units (unknown) date) protrusion without unknown) canal stenosis at C5-6. (unknown) (no (unknown) (unknown) patches and a (units ( unknown) date) prednisone taper. unknown) She was referred to Neurology on 12/29/2022 for (unknown) (no (unknown) (unknown) performed at the (units (unknown) date) time of this unknown) evaluation. Her low back pain is likely (unknown) (no (unknown) (unknown) pets and animals: (units (unknown) date) Yes (horses) unknown) (unknown) (no (unknown) (unknown) post epidural blood (unit s (unknown) date) patch. MRI showed unknown) slight disc bulge at L5-S1 without (unknown) (no (unknown) (unknown) prenat.vits,alexey,min (unit s (unknown) date) -iron-folic 1 tab PO unknown) DAILY 04/22/22 [History Confirmed (unknown) (no (unknown) (unknown) read the note (units ( unknown) date) carefully and unknown) recognize, using context, where these substitutions (unknown) (no (unknown) (unknown) really like to meet (unit s (unknown) date) w/ IBCLC prior to unknown) delivery and would like Rx for hospital (unknown) (no (unknown) (unknown) record, including (units (unknown) date) relevant provider unknown) notes, laboratory work, and imaging. (unknown) (no (unknown) (unknown) seatbelt use: (units ( unknown) date) always unknown) (unknown) (no (unknown) (unknown) second hand (units (un known) date) exposure: No unknown) (unknown) (no (unknown) (unknown) software. Although (units (unknown) date) every effort is made unknown) to edit content, websphere message broker developer errors (unknown) (no (unknown) (unknown) soon)) and children (unit s (unknown) date) unknown) (unknown) (no (unknown) (unknown) special [place] (units ( unknown) date) needs: No unknown) (unknown) (no (unknown) (unknown) spinal headache (units (unknown) date) secondary to planned unknown) spinal anesthesia for . She is (unknown) (no (unknown) (unknown) status post (units (un known) date) epidural blood unknown) patch. She was referred to physical therapy. MRI of (unknown) (no (unknown) (unknown) substance use type: (units (unknown) date) marijuana (in the unknown) past, not recently and not while ) (unknown) (no (unknown) (unknown) taking this for up (units (unknown) date) to several months. unknown) This is not meant to be a long-term (unknown) (no (unknown) (unknown) the lumbar spine (units (unknown) date) showed multilevel unknown) facet hypertrophy, no central canal stenosis (unknown) (no (unknown) (unknown) therapeutic (units (un known) date) injections and unknown) surgery. The risks, consequences, alternatives and (unknown) (no (unknown) (unknown) therapy and (units (un known) date) nonsteroidal unknown) medications. Meloxicam was ordered and we discussed (unknown) (no (unknown) (unknown) therapy. ?She has a (unit s (unknown) date) referral in place unknown) and is scheduled to start in March 2023. (unknown) (no (unknown) (unknown) there is evidence (units (unknown) date) of multilevel facet unknown) hypertrophy. Lumbar x-rays had not been (unknown) (no (unknown) (unknown) this time. (units (unk n) date) Conservative unknown) management was encouraged including starting physical (unknown) (no (unknown) (unknown) water heater temp (units (unknown) date) set < 120 deg: Yes unknown) (unknown) (no (unknown) (unknown) well as treatment (units (unknown) date) options including unknown) medications, physical therapy/exercise, (unknown) (no (unknown) (unknown) well-balanced diet: (unit s (unknown) date) daily or most days unknown) (unknown) (no (unknown) (unknown) without evidence of (unit s (unknown) date) ataxia. Lower unknown) quarter stability intact. (unknown) (no (unknown) (unknown) without nerve root (units (unknown) date) impingement. unknown) Thoracic spine MRI was grossly unremarkable. (unknown) (no (unknown) (unknown) without sciatica (units (unknown) date) Qualified Code(s): unknown) M54.50 - Low back pain, unspecified (unknown) (no (unknown) (unknown) working smoke (units ( unknown) date) detector in home: unknown) Yes Result panel 19 (unknown) (no (unknown) (unknown) (no value) (units [...] date) unknown) (unknown) (no (unknown) (unknown) (1) (units (unknown) date) examination unknown) following delivery: (unknown) (no (unknown) (unknown) Genetic (units (unkn own) date) Screening/Teratolog unknown) y Counseling - Includes patient, baby's father, or (unknown) (no (unknown) (unknown) -?-?-?-?-?-?-?-?-? (units (unknown) date) -?-?-? unknown) (unknown) (no (unknown) (unknown) .54 cm 1 week (units ( unknown) date) unknown) (unknown) (no (unknown) (unknown) 01/05/23 (units (unkno wn) date) unknown) (unknown) (no (unknown) (unknown) 01/24/14 41 17 7 (units (unknown) date) lb 1 oz Female unknown) live - full t (unknown) (no (unknown) (unknown) 02/07/23] (units (unkn own) date) unknown) (unknown) (no (unknown) (unknown) 02/17/23 1913 (units ( unknown) date) unknown) (unknown) (no (unknown) (unknown) 02/19/21 39 7 [...] (unknown) (unknown) 24w 5d 276 lb 7 oz (units (unknown) date) unknown) (unknown) (no (unknown) (unknown) 28w 6d 282 lb (units ( unknown) date) unknown) (unknown) (no (unknown) (unknown) 3 wks (units (unkno wn) date) unknown) (unknown) (no (unknown) (unknown) 31 weeks (units (unkno wn) date) gestation. Good unknown) movement. No leakage of fluid or vaginal (unknown) (no (unknown) (unknown) 31w 6d 285 lb (units ( unknown) date) unknown) (unknown) (no (unknown) (unknown) 32 year old (units (unknown) date) with a normal 6 wk unknown) PP exam after a repeat C section (unknown) (no (unknown) (unknown) 33w 6d 289 lb (units ( unknown) date) unknown) (unknown) (no (unknown) (unknown) 35w 6d 293 lb (units ( unknown) date) unknown) (unknown) (no (unknown) (unknown) 37w 6d 304 lb (units ( unknown) date) unknown) (unknown) (no (unknown) (unknown) 5 wks (units (unkno wn) date) unknown) (unknown) (no (unknown) (unknown) 6 week - (units (unknown) date) no plans at this unknown) time for contraception (unknown) (no (unknown) (unknown) : [id number] (units (u nknown) date) unknown) (unknown) (no (unknown) (unknown) ADHD (units (unkno wn) date) unknown) (unknown) (no (unknown) (unknown) Abdomen: soft; (units (unknown) date) Negative for unknown) non-tender, uterus palp or hepatosplemegaly (unknown) (no (unknown) (unknown) Abnormal lab (units (u nknown) date) values 1st unknown) trimester: discussed (unknown) (no (unknown) (unknown) Add'l Plan Details (units (unknown) date) unknown) (unknown) (no (unknown) (unknown) Additional (units [...] own) date) unknown) (unknown) (no (unknown) (unknown) [place], [place] (units ( unknown) date) [id number] unknown) (unknown) (no (unknown) (unknown) Anaphylaxis (units (un known) date) unknown) (unknown) (no (unknown) (unknown) Anesthesia (units (unk nown) date) unknown) (unknown) (no (unknown) (unknown) Aneuploidy (units (unk nown) date) Screening Offered: unknown) Accepted (Would like CFDNA if qualified) (unknown) (no (unknown) (unknown) Anticipated course (units (unknown) date) of care: unknown) discussed (unknown) (no (unknown) (unknown) Assessment and (units (unknown) date) Plan unknown) (unknown) (no (unknown) (unknown) Assessment: (units (un known) date) unknown) (unknown) (no (unknown) (unknown) Attending Dr: (units ( unknown) date) Josefina Baumann MD unknown) (unknown) (no (unknown) (unknown) BMI 46.8 (units (unkno wn) date) unknown) (unknown) (no (unknown) (unknown) BP 106/64 (units (unkn own) date) unknown) (unknown) (no (unknown) (unknown) Yonis 2 months (units (unknown) date) post-dates unknown) induction (unknown) (no (unknown) (unknown) Bimanual: week (units (unknown) date) size: (6); Negative unknown) for mobile, tender, adnexal mass or adnexal (unknown) (no (unknown) (unknown) (units (unkno wn) [...] would accept ) (unknown) (no (unknown) (unknown) Blues/Depression/A (units (unknown) date) nxiety: Yes unknown) Blues/Depression Branch: Reports easily crying, (unknown) (no (unknown) (unknown) Bowel: Reports (units (unknown) date) daily and stool unknown) soft; Denies constipation or stool hard (unknown) (no (unknown) (unknown) Breastfeed Preg (units (unknown) date) Comp Name unknown) (unknown) (no (unknown) (unknown) Breasts: (units (unkno wn) date) symmetric; Negative unknown) for masses, DERIK, erythema or cracked nipples (unknown) (no (unknown) (unknown) 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) unknown) (unknown) (no (unknown) (unknown) Cervix: parous; (units (unknown) date) Negative for well unknown) healed, polyps or lesions (unknown) (no (unknown) (unknown) Children's (units (unk nown) date) unknown) (unknown) (no (unknown) (unknown) Current Estimate (units (unknown) date) 11/30/22 LMP unknown) (Certain) 51w 2d (unknown) (no (unknown) (unknown) Current (units (unknown) date) History unknown) (unknown) (no (unknown) (unknown) DNA (units (unkno wn) date) unknown) (unknown) (no (unknown) (unknown) : 1990 (units (unknown) date) Acct:[id number] unknown) (unknown) (no (unknown) (unknown) Date of positive (units (unknown) date) home unknown) test: 03/25/22 (unknown) (no (unknown) (unknown) Date (units (unkno wn) date) unknown) (unknown) (no (unknown) (unknown) Daughter Juvenile (units (unknown) date) arthritis unknown) (unknown) (no (unknown) (unknown) Del. Date GA/Weeks (units (unknown) date) Labor Lgth Wt unknown) Sex Route Outcome Anesthesia Place (unknown) (no [...] drugs and (unknown) (no (unknown) (unknown) Depression (-2000) (units (unknown) date) unknown) (unknown) (no (unknown) (unknown) Depression: (units (un known) date) discussed unknown) (unknown) (no (unknown) (unknown) Dept at (units (unkno wn) date) . unknown) (unknown) (no (unknown) (unknown) Diet and Exercise (units (unknown) date) unknown) (unknown) (no (unknown) (unknown) Discussed (units (unkno wn) date) anesthesia, but unknown) encouraged Brittany to discuss this more in depth with . (unknown) (no (unknown) (unknown) Documented By: (units (unknown) date) Josefina Baumann MD unknown) 01/05/23 1446 (unknown) (no (unknown) (unknown) ECTOR Calculator (units (unknown) date) unknown) (unknown) (no (unknown) (unknown) EGA Weight BP (units ( unknown) date) UGlucose unknown) (unknown) (no (unknown) (unknown) Estimated Delivery (units (unknown) date) Date Method Current unknown) (unknown) (no (unknown) (unknown) Exam (units (unkno wn) date) unknown) (unknown) (no (unknown) (unknown) Expected Delivery (units (unknown) date) Route/Plan unknown) (unknown) (no (unknown) (unknown) Family History (units (unknown) date) (Updated 06/08/22 @ unknown) 21:23 by Aurora Arevalo) (unknown) (no (unknown) (unknown) Father Diabetes (units (unknown) date) mellitus unknown) (unknown) (no (unknown) (unknown) Father of Baby: (units (unknown) date) same unknown) (unknown) (no (unknown) (unknown) Feeding: breast (units (unknown) date) unknown) (unknown) (no (unknown) (unknown) [facility] unknown) (unknown) (no (unknown) (unknown) First Trimester (units (unknown) date) Education Checklist unknown) (unknown) (no (unknown) (unknown) Follow-up in 4 (units (unknown) date) weeks. Warning unknown) signs reviewed. kag (unknown) (no (unknown) (unknown) Follow-up in 4 (units (unknown) date) weeks. We will call unknown) with anatomic survey results. (unknown) (no (unknown) (unknown) Foot pain (-2020) (units (unknown) date) unknown) (unknown) (no (unknown) (unknown) Free T4, Direct (units (unknown) date) Thyroxine 01/05/23 unknown) E03.9 - Hypothyroidism, unspecified (unknown) (no (unknown) (unknown) (units (unkno wn) date) unknown) (unknown) (no (unknown) (unknown) [place] at her next (units (unknown) date) visit. f/u in 4 unknown) weeks. (unknown) (no (unknown) (unknown) Genetic Screening (units (unknown) date) + Counseling unknown) (unknown) (no (unknown) (unknown) Genetic Screening (units (unknown) date) unknown) (unknown) (no (unknown) (unknown) 5 Multiple (units (unknown) date) births unknown) (unknown) (no (unknown) (unknown) : 5 (units (unk nown) date) unknown) (unknown) (no (unknown) (unknown) HIV risk (units (unkno wn) date) evaluation: low unknown) risk (unknown) (no (unknown) (unknown) Health Center (units ( unknown) date) Education unknown) (unknown) (no (unknown) (unknown) Health center (units ( unknown) date) information: nature unknown) of practice discussed, personnel (unknown) (no (unknown) [...] unknown) (unknown) (no (unknown) (unknown) History of surgery (units (unknown) date) unknown) (unknown) (no (unknown) (unknown) History/Interim (units [...] known) date) unknown) (unknown) (no (unknown) (unknown) Incision: Negative (units (unknown) date) for clean, dry, unknown) intact, granulation tissue, discharge or (unknown) (no (unknown) (unknown) Infant (units (u nknown) date) Weight: 7# 12oz unknown) (unknown) (no (unknown) (unknown) Infant Longest (units (unknown) date) Sleep: 4hours unknown) (unknown) (no (unknown) (unknown) Infant Recent (units ( unknown) date) Weight: 10lb 1oz unknown) (unknown) (no (unknown) (unknown) Infant will be (units (unknown) date) adopted?: no unknown) (unknown) (no (unknown) (unknown) 's Name: (units (unknown) date) Carlene unknown) (unknown) (no (unknown) (unknown) Infant's Sex: (units ( unknown) date) Female unknown) (unknown) (no (unknown) (unknown) Infection History (units (unknown) date) unknown) (unknown) (no (unknown) (unknown) Infectious Disease (units (unknown) date) Education unknown) (unknown) (no (unknown) (unknown) Infectious disease (units (unknown) date) exposure: chicken unknown) pox immunity discussed, hepatitis risk (unknown) (no [...] wn) date) unknown) (unknown) (no (unknown) (unknown) [place]: (units (u nknown) date) Reports resumed; unknown) Denies issues (unknown) (no (unknown) (unknown) Interim (units ( unknown) date) control method: unknown) Reports none (unknown) (no (unknown) (unknown) LM (units (unkno wn) date) unknown) (unknown) (no (unknown) (unknown) Lab:: thyroid (units ( unknown) date) unknown) (unknown) (no (unknown) (unknown) Brittany and her (units (u nknown) date) children present unknown) for her [facility]ERMAN visit now at 33+ 6 weeks (unknown) (no (unknown) (unknown) Brittany presents (units ( unknown) date) today with her 3 unknown) kids for a routine OB visit at 24w5d. She (unknown) (no (unknown) (unknown) Brittany returns today (units (unknown) date) for her [facility]ER[facility] visit unknown) now at 37+ 6 weeks gestational age. (unknown) (no (unknown) (unknown) Live with someone (units (unknown) date) with TB or exposed unknown) to TB: No (unknown) (no (unknown) (unknown) Loc: [facility] (units (unkno wn) date) unknown) (unknown) (no (unknown) (unknown) Low back pain (units ( unknown) date) unknown) (unknown) (no (unknown) (unknown) Marital status: (units (unknown) date) unknown) (unknown) (no (unknown) (unknown) Medical History (units (unknown) date) (Updated 02/07/23 @ unknown) 10:11 by Celio Tejada MD) (unknown) (no (unknown) (unknown) Medications (units (un known) date) unknown) (unknown) (no (unknown) (unknown) Mental health (units ( unknown) date) problem unknown) (unknown) (no (unknown) (unknown) Migraine headaches (units (unknown) date) unknown) (unknown) (no (unknown) (unknown) Mother Depression (units (unknown) date) unknown) (unknown) (no (unknown) (unknown) N No no 146 15 N/A (units (unknown) date) absent 4 wks unknown) (unknown) (no (unknown) (unknown) N No no 168 11 N/A (units (unknown) date) absent long/closed unknown) AGA (unknown) (no (unknown) (unknown) N Yes no 143 32 (units (unknown) date) Breech absent HUNTER unknown) 20.14cm (unknown) (no (unknown) (unknown) N Yes no 152 42 (units (unknown) date) Vertex absent GBS unknown) NEGATIVE (unknown) (no (unknown) (unknown) Nearsightedness (units (unknown) date) unknown) (unknown) (no (unknown) (unknown) No Pap (units (unkno wn) date) unknown) (unknown) (no [...] stress disorder) (-1999) (unknown) (no (unknown) (unknown) Pain Control: (units ( unknown) date) Reports Controlled unknown) (unknown) (no (unknown) (unknown) Painful menstrual (units (unknown) date) periods () unknown) (unknown) (no (unknown) (unknown) Pap:: no (units (unkno wn) date) unknown) (unknown) (no (unknown) (unknown) Para 4 Spontaneous (units (unknown) date) abortions 1 unknown) (unknown) (no (unknown) (unknown) Para: 4 (units (unkno wn) date) unknown) (unknown) (no (unknown) (unknown) Partner history of (units (unknown) date) STD: denies hx unknown) (unknown) (no (unknown) (unknown) Partner history of (units (unknown) date) genital herpes: No unknown) (unknown) (no (unknown) (unknown) Partner: Adriano (units [...] [place] MR# unknown) (unknown) (no (unknown) (unknown) [facility]: (units ( unknown) date) Pediatric unknown) [facility] (unknown) (no (unknown) (unknown) Personal history (units (unknown) date) of STD: denies hx unknown) (unknown) (no (unknown) (unknown) Personal history (units (unknown) date) of genital herpes: unknown) No (unknown) (no (unknown) (unknown) Plan: (units (unkno wn) date) unknown) (unknown) (no (unknown) (unknown) Planned repeat (units [...] Other Normal unknown) (unknown) (no (unknown) (unknown) Education (units (unknown) date) unknown) (unknown) (no (unknown) (unknown) Initial (units (unknown) date) Assessment unknown) (unknown) (no (unknown) (unknown) Specific (units (unknown) date) Issues/Plans unknown) (unknown) (no (unknown) (unknown) Testing: (units (unknown) date) discussed unknown) (unknown) (no (unknown) (unknown) Visit (units (unknown) date) unknown) (unknown) (no (unknown) (unknown) education (units (unknown) date) packet: unknown) symptoms, Vitamins and iron, Diet and (unknown) (no (unknown) (unknown) Previous (units (unknown) date) section unknown) (unknown) (no (unknown) (unknown) Primary Care (units (u nknown) date) Provider: [place] unknown) Health (unknown) (no (unknown) (unknown) Primary Ob (units (unk nown) date) Provider: unknown) Josefina Baumann (unknown) (no (unknown) (unknown) Prior GBS-Infected (units (unknown) date) child: No unknown) (unknown) (no (unknown) (unknown) Geoff Shook (units (unknown) date) 4 unknown) (unknown) (no (unknown) (unknown) Providers [...] Recurrent (units (unkn own) date) loss or a unknown) stillbirth: No (unknown) (no (unknown) (unknown) Repeat (units (unknown) date) section with unknown) bilateral salpingectomy (unknown) (no (unknown) (unknown) Reports Other (units ( unknown) date) (Older son unknown) undergoing genetic workup for currently unidentified (unknown) (no (unknown) (unknown) 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 unknown) (unknown) (no (unknown) (unknown) Safety (units (unkno wn) date) unknown) (unknown) (no (unknown) (unknown) Sauna/hot tub use, (units (unknown) date) Dental care, unknown) Marijuana use, Travel and [...] Surgical History (units (unknown) date) (Updated 07/12/22 @ unknown) 15:10 by Josefina Baumann MD) (unknown) (no [...] unknown) HUNTER 17 (unknown) (no (unknown) (unknown) TSH, free T4 (units (u nknown) date) unknown) (unknown) (no (unknown) (unknown) TSH. Discussed (units (unknown) date) TDAP vaccination unknown) nv. She had questions regarding anesthesia (unknown) (no (unknown) (unknown) Tdap, declines flu (units (unknown) date) unknown) (unknown) (no (unknown) (unknown) Teratogen (units (unkn own) date) Exposures since unknown) LMP/Conception: Denies prescription medications, (unknown) (no (unknown) (unknown) Testing Education (units (unknown) date) unknown) (unknown) (no (unknown) (unknown) Testing education (units (unknown) date) completed: group B unknown) strep, Spina bifida testing and Cell Free (unknown) (no (unknown) (unknown) This note may have (units (unknown) date) been all or unknown) partially generated using voice recognition (unknown) (no (unknown) (unknown) Thyroid (units (unkno wn) date) Stimulating Hormone unknown) 01/05/23 E03.9 - Hypothyroidism, unspecified (unknown) (no (unknown) (unknown) Thyroid: normal; (units (unknown) date) Negative for unknown) thyromegaly (unknown) (no (unknown) (unknown) 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 grade breast pump at (unknown) (no (unknown) (unknown) Zika virus (units (unk nown) date) exposure: No unknown) (unknown) (no (unknown) (unknown) additional social (units (unknown) date) history: Difficulty unknown) other children. Would (unknown) (no (unknown) (unknown) [...] HUNTER (unknown) (no (unknown) (unknown) bloating and other (units (unknown) date) (migraine) unknown) (unknown) (no (unknown) (unknown) caffeine: Yes (units ( unknown) date) (soft drinks in unknown) small quantities, well within 200mg limit) (unknown) (no (unknown) (unknown) carbon monox (units (u nknown) date) detector in home: unknown) Yes (unknown) (no (unknown) (unknown) cfDNA, normal (units ( unknown) date) female unknown) (unknown) (no (unknown) (unknown) conditions, GJB-2 (units (unknown) date) related conditions, unknown) Krabbe Disease, and very long-chain ACYL (unknown) [...] nknown) date) unknown) (unknown) (no (unknown) (unknown) erythema (units (unkno wn) date) unknown) (unknown) (no (unknown) (unknown) executed [...] bleeding. Plan: (unknown) (no (unknown) (unknown) movement. No (units (unknown) date) leakage of fluid or unknown) vaginal bleeding. No regular (unknown) (no (unknown) [...] Allergy (units (unknown) date) (Severe, Verified unknown) 02/07/23 08:41) (unknown) (no (unknown) (unknown) flu or covid [...] (units (unknown) date) She is having a few unknown) Eriberto Weinstein contractions but denies (unknown) (no [...] members: (units (unknown) date) spouse, family unknown) (geltlth-je-vnt and his 3 children (moving out (unknown) (no (unknown) (unknown) housing: house (units (unknown) date) unknown) (unknown) (no (unknown) (unknown) in discharge. Her (units (unknown) date) baby remains active unknown) however. HUNTER today is slightly increased (unknown) [...] Intrauterine gestational sac (unknown) (no (unknown) (unknown) meloxicam 7.5 mg (units (unknown) date) tablet 7.5 mg PO unknown) DAILY #30 tabs 02/07/23 [Rx Confirmed (unknown) (no (unknown) (unknown) migraines and (units ( unknown) date) these are getting a unknown) little better. She is using the prescribed [...] and Rubella Immunization (unknown) (no (unknown) (unknown) prenat.vits,alexey,mi (units (unknown) date) r-ucei-[id number] 1 tab unknown) PO DAILY 04/22/22 [History Confirmed (unknown) (no (unknown) (unknown) read the note (units ( unknown) date) carefully and unknown) recognize, using context, where these substitutions (unknown) (no (unknown) (unknown) really like to (units (unknown) date) meet w/ IBCLC prior unknown) to delivery and would like Rx for hospital (unknown) (no (unknown) (unknown) regular uterine (units (unknown) date) contractions, unknown) bleeding, leakage of fluid per vagina, or change (unknown) (no (unknown) (unknown) reports good (units (unknown) date) movement and denies unknown) VB, LOF, contractions and cramping. She (unknown) (no (unknown) (unknown) reviewed. 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 Although (units (unknown) date) every effort is unknown) made to edit content, websphere message broker developer errors (unknown) (no (unknown) (unknown) soon)) and (units (unk nown) date) children unknown) (unknown) (no (unknown) (unknown) special [place] (units ( unknown) date) needs: No unknown) (unknown) (no (unknown) (unknown) stress (units (unkno wn) date) incontinence unknown) (unknown) (no (unknown) (unknown) substance use type: (units (unknown) date) marijuana (in the unknown) past, not recently and not while ) (unknown) (no (unknown) (unknown) tenderness (units (unk nown) date) unknown) (unknown) (no (unknown) (unknown) term [...] with repeat (units (unknown) date) ultrasound to check unknown) fluid. Warning signs reviewed. (unknown) (no (unknown) (unknown) weight gain, Fish (units (unknown) date) and mercury intake, unknown) Caffeine use, Exercise and activity, (unknown) (no (unknown) (unknown) well-balanced (units ( unknown) date) diet: daily or most unknown) days (unknown) (no (unknown) (unknown) with 11 weeks 3 (units (unknown) date) days. Left ovary is unknown) normal. Plan: Cell free DNA ordered. (unknown) (no (unknown) (unknown) with a fetus with (units (unknown) date) a crown-rump length unknown) measuring 4.63 cm. This is consistent (unknown) (no (unknown) (unknown) work/environmental (units (unknown) date) /hazards, Sexual unknown) activity, X-ray exposure, Medication use, (unknown) (no (unknown) (unknown) working smoke (units ( unknown) date) detector in home: unknown) Yes Social History date description facility 2022-11-28 00:00 Ex-smoker (finding) [facility] 2022-12-02 00:00 Ex-smoker (finding) [facility] 2023-01-05 00:00 Ex-smoker (finding) [facility] 2023-02-02 00:00 Ex-smoker (finding) [facility] Vital Signs date measurement value units 2023-01-05 00:00 BMI 46.8 kg/m2 2023-01-05 00:00 BP_diastolic 64 mmHg 2023-01-05 00:00 BP_systolic 106 mmHg 2023-01-05 00:00 height_metric 162.56 cm 2023-01-05 00:00 height_standard 64 in 2023-01-05 00:00 weight_metric 123.83 kg 2023-01-05 00:00 weight_standard 273 lb 2023-02-07 00:00 BMI 45.1 kg/m2 2023-02-07 00:00 BP_diastolic 70 mmHg 2023-02-07 00:00 BP_systolic 115 mmHg 2023-02-07 00:00 heart_rate 84 /min 2023-02-07 00:00 height_metric 165.1 cm 2023-02-07 00:00 height_standard 65 in 2023-02-07 00:00 o2_saturation 98 % 2023-02-07 00:00 temperature_metric 36.44 C 2023-02-07 00:00 temperature_standard 97.6 F 2023-02-07 00:00 weight_metric 123.15 kg 2023-02-07 00:00 weight_standard 271.5 lb
--- NOTE | 2023-02-25 09:12 | XRAY Report ---
PROCEDURE: Foot 3 View LT INDICATIONS: lateral foot pain x 1 brandon TECHNIQUE: 3 views of the foot were acquired. COMPARISON: None. FINDINGS: Bones: No fractures or dislocations. No suspicious bony lesions. Soft tissues: No suspicious soft tissue calcifications or masses. IMPRESSION: No evidence acute bony abnormality of the left foot. Reviewed by: Miguel A Carroll MD on 02/25/2023 9:10 AM PDT Approved by: Miguel A Carroll MD on 02/25/2023 9:10 AM PDT Station ID: [id number]
== END 2023-02-25 09:43 | disposition home or self-care (01) ==
LOC: ED 08:24
DX: M77.8 Other enthesopathies, not elsewhere classified (principal)
CPT/HCPCS: 20552; 99284

== ENCOUNTER 2023-02-25 09:47 | Outpatient (CLI) | payer MEDICAID ==
--- NOTE | 2023-02-25 19:40 | XRAY Report ---
PROCEDURE: Lumbar Spine Complete INDICATIONS: LOW BACK PAIN TECHNIQUE: 4 views of the lumbar spine were acquired. COMPARISON: None. FINDINGS: Bones: 5 ryd-[id number]-[id number] vertebrae are present. There is normal bony alignment. No vertebral body compression fractures. Mild intervertebral disc space loss noted at L4-L5 and L5-S1. Mild facet arth ropathy of the lower lumbar spine. No suspicious bony lesions. No pars defects identified. Soft tissues: Overlying bowel gas pattern is normal. No suspicious soft tissue calcifications. IMPRESSION: Mild degenerative changes of L4-L5 and L5-S1. Reviewed by: Bharathi George DO on 02/25/2023 6:38 PM ANA Approved by: Bharathi George DO on 02/25/2023 6:38 PM ANA Station ID: [id number]
== END 2023-02-25 09:48 | disposition home or self-care (01) ==
LOC: DI 09:47
PROVIDERS: ATTEND Anesthesiology
DX: M47.816 Spondylosis without myelopathy or radiculopathy, lumbar region (principal); M47.817 Spondylosis without myelopathy or radiculopathy, lumbosacral region

== ENCOUNTER 2023-03-05 07:52 | Emergency (ER) | payer MEDICAID ==
--- OUTSIDE RECORDS SUMMARY | 2023-03-05 08:37 | EXTERNAL MEDICAL SUMMARY RPT | Continuity of Care Document ---
:1990 Author Organization [facility] Address [address] [place] [address] Phone Care Team Providers Name Role Phone Unavailable Unavailable Unavailable Josefina Baumann Unavailable Unavailable Allergies No information. Encounters No information. Functional Status No information. Immunizations No information. Medications date description facility 2022-12-15 00:00 [facility]22-12-26 [facility] 2022-12-07 00:00 [facility] 2023-02-07 00:00 [facility] Problems date description facility 2023-01-05 15:58 Hypothyroidism, unspecified [facility] 2023-02-07 00:00 Low back pain [facility] 2023-02-07 08:48 Hypothyroidism, unspecified [facility] Procedures No information. Results/Labs test date author facility value unit interpret ation Result panel 1 (unknown) (no date) (unknown) [facility] unknown) Result panel 2 (unknown) (no date) (unknown) [facility] (no value) (units ([facility]own[facility] unknown) Result panel 3 (unknown) (no (unknown) (unknown) (no value) (units (unk nown) date) unknown) (unknown) (no (unknown) (unknown) COVID-19 (units (u nknown) date) unknown) (unknown) (no (unknown) (unknown) 12/02/22 (units (unkno wn) date) unknown) (unknown) (no (unknown) (unknown) 12/23/22 1221 (units ( unknown) date) unknown) (unknown) (no (unknown) (unknown) : [id number] (units (u nknown) date) unknown) (unknown) (no (unknown) (unknown) Age/Sex: 32 / F (units (unknown) date) Date of Service: unknown) (unknown) (no (unknown) (unknown) Allergies (units (unkn own) date) unknown) (unknown) (no (unknown) (unknown) SIL Rocha (units ( unknown) date) [id number] unknown) (unknown) (no (unknown) (unknown) Anaphylaxis (units (un known) date) unknown) (unknown) (no (unknown) (unknown) Attending Dr: (units ( unknown) date) [place] O[place]eda unknown) (unknown) (no (unknown) (unknown) : 1990 (units (unknown) date) Acct:[id number] unknown) (unknown) (no (unknown) (unknown) Dept at (units (unkno wn) date) . unknown) (unknown) (no (unknown) (unknown) Documented By: (units (unknown) date) [place] Ojeda unknown) 12/02/22 1425 (unknown) (no (unknown) (unknown) Evaluation/Scree [...] unknown) effort is made to edit content, certified peer specialist errors m (unknown) (no (unknown) (unknown) to leave steri (units (unknown) date) strips on. Pt unknown) also had questions about pins and needles that go (unknown) (no (unknown) (unknown) up and down her (units (unknown) date) spine after unknown) receiving blood patch. Advised pt that she should Result panel 4 (unknown) (no (unknown) (unknown) [...] date) unknown) (unknown) (no (unknown) (unknown) : [id number] (units (u nknown) date) unknown) (unknown) (no [...] own) date) unknown) (unknown) (no (unknown) (unknown) [place], [place] (units ( unknown) date) [id number] unknown) (unknown) (no (unknown) (unknown) Anaphylaxis (units [...] Josefina Baumann unknown) (unknown) (no (unknown) (unknown) Rule 2 months (units (unknown) date) post-dates unknown) [...] (unknown) (unknown) : 1990 (units (unknown) date) Acct:[id number] unknown) (unknown) (no (unknown) (unknown) Date of [...] at 24w5d. 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 Science Professor: (units ( unknown) date) Pediatric unknown) Associates [...] unknown) child: No (unknown) (no (unknown) (unknown) [place] (units (unk nown) date) [place] 4 unknown) [...] part unknown) of son's genetic workup at [facility] (unknown) (no (unknown) (unknown) Tobacco + (units [...] wn) date) unknown) (unknown) (no (unknown) (unknown) [place] teeth (units (u nknown) date) extracted unknown) [...] date) She is having a unknown) few Hamer Weinstein contractions but denies (unknown) (no (unknown) [...] members: (units (unknown) date) spouse, family unknown) (hebpgjl-yt-xqg and his 3 children (moving out (unknown) [...] (no (unknown) (unknown) prenat.vits,alexey,m (units (unknown) date) qc-fixa-jxrko 1 unknown) tab PO DAILY 04/22/22 [History [...] (units (unknown) date) check with surgery unknown) 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 (units (unkn own) date) Although every unknown) effort is made to edit content, certified peer specialist errors (unknown) (no (unknown) (unknown) soon)) and [...] detector in home: unknown) Yes Result panel 5 (unknown) (no (unknown) (unknown) [...] for contraception (unknown) (no (unknown) (unknown) : [id number] (units (u nknown) date) unknown) (unknown) (no [...] (unknown) [place] (units ( unknown) date) [id number] unknown) (unknown) (no (unknown) (unknown) Anaphylaxis (units [...] own) date) unknown) (unknown) (no (unknown) (unknown) Rule 2 months (units (unknown) date) post-dates unknown) [...] (unknown) (unknown) : 1990 (units (unknown) date) Acct:[id number] unknown) (unknown) (no (unknown) (unknown) Date of [...] [facility]quist MR# unknown) (unknown) (no (unknown) (unknown) Soil Science Professor: (units ( unknown) date) Pediatric unknown) Associates [...] unknown) child: No (unknown) (no (unknown) (unknown) Woodson (units (unk nown) date) [place] 4 unknown) [...] part unknown) of son's genetic workup at [facility] (unknown) (no (unknown) (unknown) Tobacco + (units [...] unknown) date) unknown) (unknown) (no (unknown) (unknown) [place] teeth (units (u nknown) date) extracted unknown) (unknown) (no (unknown) (unknown) Would like (units (unk nown) date) referral unknown) to [facility] and [facility] grade breast pump at (unknown) (no (unknown) [...] date) She is having a unknown) few Hamer Weinstein contractions but denies (unknown) (no (unknown) [...] members: (units (unknown) date) spouse, family unknown) (kxdgkme-wh-obs and his 3 children (moving out (unknown) [...] (no (unknown) (unknown) prenat.vits,alexey,m (units (unknown) date) yf-ptox-cxbtp 1 unknown) tab PO DAILY 04/22/22 [History [...] (units (unknown) date) check with surgery unknown) 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 (units (unkn own) date) Although every unknown) effort is made to edit content, certified peer specialist errors (unknown) (no (unknown) (unknown) soon)) and (units (unk nown) date) children unknown) (unknown) (no (unknown) (unknown) special [place] (units ( unknown) date) needs: No unknown) (unknown) (no (unknown) (unknown) substance use (units (u nknown) date) type: marijuana unknown) (in the past, not recently and not while ) (unknown) (no (unknown) (unknown) term [place] (units ( unknown) date) Rule unknown) (unknown) (no (unknown) (unknown) volume. The [...] detector in home: unknown) Yes Result panel 6 (unknown) (no (unknown) (unknown) [...] for contraception (unknown) (no (unknown) (unknown) : [id number] (units (u nknown) date) unknown) (unknown) (no [...] own) date) unknown) (unknown) (no (unknown) (unknown) [place], [place] (units ( unknown) date) [id number] unknown) (unknown) (no (unknown) (unknown) Anaphylaxis (units [...] (unknown) (unknown) : 1990 (units (unknown) date) Acct:[id number] unknown) (unknown) (no (unknown) (unknown) Date of [...] wn) date) unknown) (unknown) (no (unknown) (unknown) [place]: (units (u nknown) date) Reports resumed; unknown) [...] Lindquist MR# unknown) (unknown) (no (unknown) (unknown) Soil Science Professor: (units ( unknown) date) Pediatric unknown) Associates [...] unknown) child: No (unknown) (no (unknown) (unknown) Woodson (units (unk nown) date) [place] 4 unknown) [...] part unknown) of son's genetic workup at [facility] (unknown) (no (unknown) (unknown) Tobacco + (units [...] unknown) date) unknown) (unknown) (no (unknown) (unknown) [place] teeth (units (u nknown) date) extracted unknown) (unknown) (no (unknown) (unknown) Would like (units (unk nown) date) referral unknown) [facility] grade breast pump at (unknown) (no [...] members: (units (unknown) date) spouse, family unknown) (qyapuyk-if-ttl and his 3 children (moving out (unknown) [...] (no (unknown) (unknown) prenat.vits,alexey,m (units (unknown) date) tr-olod-rlrki 1 unknown) tab PO DAILY 04/22/22 [History [...] (units (unknown) date) check with surgery unknown) 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 (units (unkn own) date) Although every unknown) effort is made to edit content, certified peer specialist errors (unknown) (no (unknown) (unknown) soon)) and [...] (unknown) term [place] (units ( unknown) date) Rule unknown) (unknown) (no (unknown) (unknown) volume. The [...] detector in home: unknown) Yes Result panel 7 (unknown) (no (unknown) (unknown) [...] for contraception (unknown) (no (unknown) (unknown) : [id number] (units (u nknown) date) unknown) (unknown) (no [...] own) date) unknown) (unknown) (no (unknown) (unknown) [place], [place] (units ( unknown) date) [id number] unknown) (unknown) (no (unknown) (unknown) Anaphylaxis (units [...] (unknown) (unknown) : 1990 (units (unknown) date) Acct:[id number] unknown) (unknown) (no (unknown) (unknown) Date of [...] wn) date) unknown) (unknown) (no (unknown) (unknown) [place]: (units (u nknown) date) Reports resumed; unknown) [...] Lindquist MR# unknown) (unknown) (no (unknown) (unknown) Soil Science Professor: (units ( unknown) date) Pediatric unknown) Associates [...] unknown) child: No (unknown) (no (unknown) (unknown) Woodson (units (unk nown) date) [place] 4 unknown) [...] date) (Updated 07/12/22 unknown) @ 15:10 by Josefian Baumann MD) (unknown) (no (unknown) (unknown) Surrogate [...] part unknown) of son's genetic workup at [facility] (unknown) (no (unknown) (unknown) Tobacco + (units [...] unknown) date) unknown) (unknown) (no (unknown) (unknown) [place] teeth (units (u nknown) date) extracted unknown) (unknown) (no (unknown) (unknown) Would like (units (unk nown) date) referral unknown) to [facility] and [facility] grade breast pump at (unknown) [...] members: (units (unknown) date) spouse, family unknown) (ndekfpl-ap-boz and his 3 children (moving out (unknown) [...] (no (unknown) (unknown) prenat.vits,alexey,m (units (unknown) date) wy-jfnm-gjbyq 1 unknown) tab PO DAILY 04/22/22 [History [...] (units (unknown) date) check with surgery unknown) 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 (units (unkn own) date) Although every unknown) effort is made to edit content, certified peer specialist errors (unknown) (no (unknown) (unknown) soon)) and [...] unknown) Yes Result panel 8 (unknown) (no date) (unknown) (unknown) 1.47 ng/dl (unkn own) Result panel 9 (unknown) (no date) (unknown) (unknown) < 0.015 uiu/ml (unkn own) (unknown) (no date) (unknown) (unknown) 1.47 ng/dl (unkn own) Result panel 10 (unknown) (no (unknown) (unknown) [...] date) unknown) (unknown) (no (unknown) (unknown) : [id number] (units (u nknown) date) unknown) (unknown) (no [...] own) date) unknown) (unknown) (no (unknown) (unknown) [place] [address] (unit s (unknown) date) unknown) (unknown) (no [...] (unknown) (unknown) : 1990 (units (unknown) date) Acct:[id number] unknown) (unknown) (no (unknown) (unknown) Daughter Juvenile (units (unknown) date) arthritis unknown) (unknown) (no (unknown) (unknown) Denies recent (units ( unknown) date) trauma, fever or unknown) weight loss of unknown origin, immunocompromise (unknown) (no (unknown) (unknown) Depression (-2000) (units [...] wn) date) unknown) (unknown) (no (unknown) (unknown) JOSH, Gaenslen's, (units (unknown) date) Pelvic rocking on unknown) [...] L4 Ankle (units (unkno wn) date) Dorsiflexion 03/24 03/24 unknown) (unknown) (no (unknown) (unknown) L5 Long Toe (units (un known) date) Extension 03/24 03/24 unknown) (unknown) (no (unknown) (unknown) Brittany has [...] Other: (units (unkno wn) date) Psychology/Acupunctu unknown) re/medication care manager (unknown) (no (unknown) (unknown) PFSH (units (unkno [...] unknown) (unknown) (no (unknown) (unknown) 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 (unknown) (no (unknown) (unknown) We reviewed (units (unk nown) date) etiology, unknown) predisposing factor(s), natural course, imaging results as (unknown) (no (unknown) (unknown) Weakness: denies (units (unknown) date) unknown) (unknown) (no (unknown) (unknown) [place] teeth (units (u nknown) date) extracted unknown) [...] members: (units (unknown) date) spouse, family unknown) (wmsiowp-ru-yqy and his 3 children (moving out (unknown) [...] effort is made unknown) to edit content, certified peer specialist errors (unknown) (no (unknown) (unknown) soon)) and [...] unknown) Yes Result panel 11 (unknown) (no (unknown) (unknown) (no value) (units [...] date) unknown) (unknown) (no (unknown) (unknown) : [id number] (units (u nknown) date) unknown) (unknown) (no [...] unknown) (unknown) (no (unknown) (unknown) SIL Rocha [id number] (unit s (unknown) date) unknown) (unknown) (no [...] (unknown) (unknown) : 1990 (units (unknown) date) Acct:[id number] unknown) (unknown) (no (unknown) (unknown) Daughter Juvenile [...] Other: (units (unkno wn) date) Psychology/Acupunctu unknown) re/medication care manager (unknown) (no (unknown) (unknown) PFSH (units (unkno [...] unknown) (unknown) (no (unknown) (unknown) 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 (unknown) (no (unknown) (unknown) We reviewed (units (unk nown) date) etiology, unknown) predisposing factor(s), natural course, imaging results as (unknown) (no (unknown) (unknown) Weakness: denies (units (unknown) date) unknown) (unknown) (no (unknown) (unknown) [place] teeth (units (u nknown) date) extracted unknown) [...] members: (units (unknown) date) spouse, family unknown) (ngajlpq-mh-fhl and his 3 children (moving out (unknown) [...] effort is made unknown) to edit content, certified peer specialist errors (unknown) (no (unknown) (unknown) soon)) and [...] detector in home: unknown) Yes Result panel 12 (unknown) (no (unknown) (unknown) (no value) (units [...] date) unknown) (unknown) (no (unknown) (unknown) : [id number] (units (u nknown) date) unknown) (unknown) (no [...] own) date) unknown) (unknown) (no (unknown) (unknown) [place] SIL [id number] (unit s (unknown) date) unknown) (unknown) (no [...] (unknown) (unknown) : 1990 (units (unknown) date) Acct:[id number] unknown) (unknown) (no (unknown) (unknown) Daughter Juvenile [...] Other: (units (unkno wn) date) Psychology/Acupunctu unknown) re/medication care manager (unknown) (no (unknown) (unknown) PFSH (units (unkno [...] unknown) (unknown) (no (unknown) (unknown) 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 (unknown) (no (unknown) (unknown) We reviewed (units (unk nown) date) etiology, unknown) predisposing factor(s), natural course, imaging results as (unknown) (no (unknown) (unknown) Weakness: denies (units (unknown) date) unknown) (unknown) (no (unknown) (unknown) [place] teeth (units (u nknown) date) extracted unknown) [...] members: (units (unknown) date) spouse, family unknown) (awgxgjm-iy-yaj and his 3 children (moving out (unknown) [...] effort is made unknown) to edit content, certified peer specialist errors (unknown) (no (unknown) (unknown) soon)) and [...] detector in home: unknown) Yes Result panel 13 (unknown) (no (unknown) (unknown) [...] date) unknown) (unknown) (no (unknown) (unknown) : [id number] (units (u nknown) date) unknown) (unknown) (no [...] date) unknown) (unknown) (no (unknown) (unknown) [place] [address] (unit s (unknown) date) unknown) (unknown) (no [...] (unknown) (unknown) : 1990 (units (unknown) date) Acct:[id number] unknown) (unknown) (no (unknown) (unknown) Daughter Juvenile [...] wn) date) unknown) (unknown) (no (unknown) (unknown) JOSH, Gaenslen's, (units (unknown) date) Pelvic rocking on unknown) [...] L2 Hip Flexion 5/5 (units (unknown) date) 03/24? unknown) (unknown) (no (unknown) (unknown) L3 Knee Extension (units (unknown) date) 03/24 5/5 unknown) (unknown) (no (unknown) (unknown) L3-4 Patella 2+ 2 (units (unknown) date) unknown) (unknown) (no (unknown) (unknown) L4 Ankle (units (unkno wn) date) Dorsiflexion 03/24 5/ unknown) (unknown) (no (unknown) (unknown) L5 Long Toe (units (un known) date) Extension 03/24 03/24 unknown) (unknown) (no (unknown) (unknown) Brittany has [...] Other: (units (unkno wn) date) Psychology/Acupunctu unknown) re/medication care manager (unknown) (no (unknown) (unknown) Oxygen Delivery (units [...] unknown) (unknown) (no (unknown) (unknown) 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 (unknown) (no (unknown) (unknown) We reviewed (units (unk nown) date) etiology, unknown) predisposing factor(s), natural course, imaging results as (unknown) (no (unknown) (unknown) Weakness: denies (units (unknown) date) unknown) (unknown) (no (unknown) (unknown) Weight 271 lb 8 oz (units (unknown) date) unknown) (unknown) (no (unknown) (unknown) [place] teeth (units (u nknown) date) extracted unknown) [...] members: (units (unknown) date) spouse, family unknown) (fqmoelw-xx-vik and his 3 children (moving out (unknown) [...] effort is made unknown) to edit content, certified peer specialist errors (unknown) (no (unknown) (unknown) soon)) and [...] date) unknown) (unknown) (no (unknown) (unknown) : [id number] (units (u nknown) date) unknown) (unknown) (no [...] date) unknown) (unknown) (no (unknown) (unknown) [place] [address] (unit s (unknown) date) unknown) (unknown) (no [...] (unknown) (unknown) : 1990 (units (unknown) date) Acct:[id number] unknown) (unknown) (no (unknown) (unknown) Daughter Juvenile [...] wn) date) unknown) (unknown) (no (unknown) (unknown) JOSH, Gaenslen's, (units (unknown) date) Pelvic rocking on unknown) [...] (unknown) L3 Knee Extension (units (unknown) date) 03/24 5/5 unknown) (unknown) (no (unknown) (unknown) L3-4 Patella 2+ 2 (units (unknown) date) unknown) (unknown) (no (unknown) (unknown) L4 Ankle (units (unkno wn) date) Dorsiflexion 03/24 03/24 unknown) (unknown) (no (unknown) (unknown) L5 Long Toe (units (un known) date) Extension 03/24 03/24 unknown) (unknown) (no (unknown) (unknown) Brittany has [...] date) out for March 2023 at unknown) [employer] (unknown) (no (unknown) (unknown) PTSD (units (unkno [...] periods (-2020) unknown) (unknown) (no (unknown) (unknown) Patient will [...] unknown) (unknown) (no (unknown) (unknown) 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 (unknown) (no (unknown) (unknown) We reviewed (units (unk nown) date) etiology, unknown) predisposing factor(s), natural course, imaging results as (unknown) (no (unknown) (unknown) Weakness: denies (units (unknown) date) unknown) (unknown) (no (unknown) (unknown) Weight 271 lb 8 oz (units (unknown) date) unknown) (unknown) (no (unknown) (unknown) [place] teeth (units (u nknown) date) extracted unknown) [...] members: (units (unknown) date) spouse, family unknown) (zhstxrd-qc-dqq and his 3 children (moving out (unknown) [...] effort is made unknown) to edit content, certified peer specialist errors (unknown) (no (unknown) (unknown) soon)) and [...] respond unknown) (unknown) (no (unknown) (unknown) : [id number] (units (u nknown) date) unknown) (unknown) (no [...] unknown) (unknown) (no (unknown) (unknown) SIL Rocha [id number] (unit s (unknown) date) unknown) (unknown) (no [...] syndrome (-2017) unknown) (unknown) (no (unknown) (unknown) Cervical spine [...] (unknown) (unknown) : 1990 (units (unknown) date) Acct:[id number] unknown) (unknown) (no (unknown) (unknown) Daughter Juvenile [...] date) out for March 2023 at unknown) [email or web address] (unknown) (no (unknown) (unknown) PTSD (units (unkno [...] (unknown) (unknown) Patient: White (units (unknown) date) BereBrittany haskins MR# unknown) (unknown) (no (unknown) (unknown) Plan [...] unknown) (unknown) (no (unknown) (unknown) 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 (unknown) (no (unknown) (unknown) We reviewed (units (unk nown) date) etiology, unknown) predisposing factor(s), natural course, imaging results as (unknown) (no (unknown) (unknown) Weakness: denies (units (unknown) date) unknown) (unknown) (no (unknown) (unknown) Weight 271 lb 8 oz (units (unknown) date) unknown) (unknown) (no (unknown) (unknown) [place] teeth (units (u nknown) date) extracted unknown) [...] members: (units (unknown) date) spouse, family unknown) ([id number] and his 3 children (moving out (unknown) [...] effort is made unknown) to edit content, certified peer specialist errors (unknown) (no (unknown) (unknown) soon)) and [...] (no (unknown) (unknown) this time. (units (unk nown) date) Conservative unknown) management was encouraged including [...] for contraception (unknown) (no (unknown) (unknown) : [id number] (units (u nknown) date) unknown) (unknown) (no [...] own) date) unknown) (unknown) (no (unknown) (unknown) [place], [place] (units ( unknown) date) [id number] unknown) (unknown) (no (unknown) (unknown) Anaphylaxis (units [...] (unknown) (unknown) : 1990 (units (unknown) date) Acct:[id number] unknown) (unknown) (no (unknown) (unknown) Date of [...] wn) date) unknown) (unknown) (no (unknown) (unknown) [place]: (units (u nknown) date) Reports resumed; unknown) [...] Lindquist MR# unknown) (unknown) (no (unknown) (unknown) [employer]il [employer] Professor: (units ( unknown) date) Pediatric unknown) Associates [...] part unknown) of son's genetic workup at [facility] (unknown) (no (unknown) (unknown) Tobacco + (units [...] unknown) date) unknown) (unknown) (no (unknown) (unknown) [place] teeth (units (u nknown) date) extracted unknown) (unknown) (no (unknown) (unknown) Would like (units (unk nown) date) referral unknown) to [facility] and [facility] grade breast pump at (unknown) (no [...] date) She is having a few unknown) Hamer Weinstein contractions but denies (unknown) (no (unknown) [...] members: (units (unknown) date) spouse, family unknown) ([id number] and his 3 children (moving out (unknown) [...] (no (unknown) (unknown) prenat.vits,alexey,mi (units (unknown) date) [id number]-nbhn-[id number] 1 tab unknown) PO DAILY 04/22/22 [History [...] (units (unknown) date) check with surgery unknown) 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 Although (units (unknown) date) every effort is unknown) made to edit content, certified peer specialist errors (unknown) (no (unknown) (unknown) soon)) and [...] (unknown) term [place] (units ( unknown) date) Rule unknown) (unknown) (no (unknown) (unknown) volume. The [...] nown) date) unknown) (unknown) (no (unknown) (unknown) 03/04/23 2225 (units ( unknown) date) unknown) (unknown) (no (unknown) (unknown) 1: (units (unkno wn) date) unknown) (unknown) (no (unknown) (unknown) 39-,1/7 weeks (units ( unknown) date) gestation unknown) (unknown) (no (unknown) (unknown) : [id number] (units (u nknown) date) unknown) (unknown) (no (unknown) (unknown) score (1 [...] Duramorph) (unknown) (no (unknown) (unknown) Applied: (units (o wn) date) Catheter (To unknown) continuous drainage) (unknown) (no (unknown) (unknown) Beater Operator: (units (unk nown) date) Shirley Crystal unknown) [...] (unknown) (unknown) : 1990 (units (unknown) date) Acct:[id number] unknown) (unknown) (no (unknown) (unknown) Date of [...] nknown) date) unknown) (unknown) (no (unknown) (unknown) Infant Gender: (units (unknown) date) Female unknown) (unknown) (no (unknown) (unknown) Intraoperative (units (unknown) date) meds unknown) administered: Duramorph, Ketorolac and Pitocin (unknown) (no (unknown) (unknown) [facility] (units (unknown) date) [address] [place] [address] unknown) [place] [address] (unknown) (no (unknown) (unknown) Live female (units (un known) date) in the MYRTLE unknown) presentation (unknown) (no (unknown) (unknown) Lysis of (units (unkno wn) date) adhesions unknown) (unknown) (no (unknown) (unknown) Morbid obesity (units (unknown) date) unknown) (unknown) (no (unknown) (unknown) Baby (units (u nknown) date) unknown) (unknown) [...] Lindquist unknown) MR# (unknown) (no (unknown) (unknown) [place]ann[place]iel (units (u [...] (unknown) Reason for (units (unk nown) date) Beater Operator: unknown) (unknown) (no (unknown) (unknown) Repeat (units (unkno wn) date) low-transverse unknown) section (unknown) (no (unknown) (unknown) Same procedure (units (unknown) date) as scheduled: Yes unknown) (unknown) (no (unknown) (unknown) Signed (units (unkno wn) date) By:<Electronicall unknown) y signed by Josefina Baumann MD> (unknown) (no (unknown) (unknown) Specimen(s): (units (u nknown) date) cord blood, cord unknown) pH and placenta (unknown) (no (unknown) (unknown) Surgeon: (units (unkno wn) date) Josefina Baumann unknown) (unknown) (no (unknown) (unknown) The assistant merchandise manager (units ( unknown) date) was necessary to [...] fascial incision unknown) was grasped with a Lindsey clamps, elevated, and (unknown) (no (unknown) (unknown) [...] (units (un known) date) layer. A unknown) xlbcgu-[id number]-lbulw suture was placed on the right edge [...] was grasped with (units (unknown) date) a [place] clamps, unknown) elevated, and the underlying rectus [...] interrupted sutures of 3-0 Vicryl were placed Social History date description facility 2023-01-05 00:00 Ex-smoker (finding) [facility] 2023-02-02 00:00 Ex-smoker (finding) [facility] Vital Signs date measurement value units [...]
[2023-03-05] MEDS ORDERED: KETOROLAC 60 MG/2 ML VIAL IM STA (10:00)
[2023-03-05] MEDS ORDERED: DEXAMETHASONE 10 MG/ML VIAL IM STA (10:00)
--- NOTE | 2023-03-05 10:03 | ED Physician Documentation ---
History of Present Illness - Stated complaint Stated Complaint: BACK PX - Chief complaint Chief Complaint: Back Pain - History obtained from History obtained from: Patient - Additonal information Additional information: The patient comes to the emergency department chief complaint of exacerbation of chronic back pain since yesterday. She states she was sitting down to breast- feed her baby and when she finished breast-feeding, she tried to get up from sitting but felt as though her back was "locked up". She states she could not stand and she had a pain across her low back, right above her sacral area. The patient has had issues in this area for quite a while and actually has seen a trade show specialist. She is scheduled to start PT for this next month. 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 The patient states that she has not had any distinct trauma recently. She states that occasionally the same thing is happened after she is bent over. She denies any fevers or chills. No numbness or tingling in her lower extremities. No weakness. She has not had any trouble controlling bowels or bladder. No other complaints at this time. She did drive here today. 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 : None HEENT: None Psych: Depression, Anxiety, Panic attacks, ADD/ADHD Musculoskeletal: Chronic back pain Derm: None - Past Surgical History Past Surgical History: Yes /EXCHANGE FLOOR MANAGER: section - Present Medications Home Medications: Ambulatory Orders Medication Instructions Recorded Confirmed Ibuprofen [Motrin] 800 mg PO Q8H PRN #30 tablet 10/04/21 01/14/23 Citalopram [CeleXA] 20 mg PO DAILY 01/14/23 01/14/23 HYDROcod/ACETAM 5/325 [Whitman 5/325] 1 tablet PO Q6H PRN #14 tablet 01/14/23 Levothyroxine Sodium 137 mcg PO DAILY 01/14/23 01/14/23 [Levothyroxine] Lidocaine Patch 5% [Lidoderm Patch] 1 patch TOP DAILY PRN #10 patch 01/14/23 predniSONE [Deltasone] 20 mg PO [id number] #21 tab 01/14/23 HYDROcod/ACETAM 5/325 [Whitman 5/325] 1 ea PO Q6H PRN #15 tablet 02/25/23 Cyclobenzaprine [Flexeril] 10 mg PO TID PRN #20 tablet 03/05/23 HYDROcod/ACETAM 5/325 [Whitman 5/325] 1 - 2 tablet PO Q6H PRN #14 tablet 03/05/23 predniSONE [Deltasone] 60 mg PO DAILY 5 Days #15 tablet 03/05/23 - Allergies Allergies/Adverse Reactions: Allergies Allergy/AdvReac Type Severity Reaction Status Date / Time No Known Drug Allergies Allergy Verified 03/05/23 08:38 - Social History Does the pt smoke?: No Smoking Status: Never smoker Does the pt drink ETOH?: No Does the pt have substance abuse?: No - Immunizations Immunizations are current?: Yes Immunizations: Other immun not current - POLST Patient has POLST: No PD ED PE NORMAL - Vitals Vital signs reviewed: Yes - General General: Alert and oriented X 3, No acute distress, Well developed/nourished, Other (Morbidly obese) - HEENT HEENT: Atraumatic, PERRL, EOMI, Moist mucous membranes - Neck Neck: Supple, no meningeal sign - Cardiac Cardiac: RRR, No murmur, Strong equal pulses - Respiratory Respiratory: No respiratory distress, Clear bilaterally - Abdomen Abdomen: Soft, Non tender, Other (Obese abdomen) - Back Back: Other (Mild tenderness over inferior most lumbar spine without step-off. Tenderness extending across both sides of the back at the same level. Limited range of motion secondary to discomfort.) - Derm Derm: Normal color, Warm and dry, No rash - Extremities Extremities: No deformity, No edema - Neuro Neuro: Alert and oriented X 3, No motor deficit, No sensory deficit - Psych Psych: Normal mood, Normal affect Results - Vitals Vitals: Vital Signs - 24 hr 03/05/23 08:34 Temperature 36 C L Heart Rate 87 Respiratory 16 Rate Blood Pressure 127/68 O2 Saturation 98 Oxygen O2 Source Room air PD Medical Decision Making - ED course Complexity details: considered differential, d/w patient ED course: I discussed with the patient that she has not had any distinct trauma and that I do not feel imaging is emergently indicated at this time. The patient is treated symptomatically with Decadron and Toradol in the emergency department. We have discussed the use of narcotics and muscle relaxers while she is breast- feeding and that while only a small amount of the medication enters the breastmilk, it is best that she pumps and dumps for a cycle after taking the medication. We have discussed the need to follow-up with her spinal specialist if her symptoms persist for more than the next several days. We discussed the usual indications for return. Departure - Departure Disposition: 01 Home, Self Care Clinical Impression: Acute exacerbation of chronic low back pain Condition: Stable Instructions: ED Spasm Back No Trauma Prescriptions: predniSONE [Deltasone] 60 mg PO DAILY 5 Days #15 tablet Cyclobenzaprine [Flexeril] 10 mg PO TID PRN #20 tablet PRN Reason: Spasms HYDROcod/ACETAM 5/325 [Whitman 5/325] 1 - 2 tablet PO Q6H PRN #14 tablet PRN Reason: Pain Comments: Your prescriptions have been electronically transmitted to the [facility] pharmacy in [place]. As we discussed, although it is a relatively small amount of the medications that well into your breastmilk, the most conservative and safe course is to pump and dump for a cycle after taking any sedating medication. The best way to do this is to breast-feed the baby just before or just after taking the medication, when your breasts are full and there has not been enough time for the medication to enter the milk that is in your breast. You can pump and dump the milk a few hours later and this should get rid of most of the milk that has the medication in it. After that, you can feed the baby again before taking another dose of the sedating medication. Please consider using, in addition to the medications, ice, heat, stretching, and massage to help with your symptoms. Please follow-up with your trade show specialist and plan to start your physical therapy as scheduled.
[2023-03-05 11:10] VITALS: BP 124/68
== END 2023-03-05 11:10 | disposition home or self-care (01) ==
LOC: ED 07:52
DX: M54.50 Low back pain, unspecified (principal); G89.29 Other chronic pain
CPT/HCPCS: 96372; 99283

== ENCOUNTER 2023-03-09 13:35 | Outpatient (CLI) | payer MEDICAID ==
[2023-03-09 18:14] LABS: THYROID STIMULATING HORMONE 1.88 uIU/mL (0.34-5.60)
== END 2023-03-09 13:36 | disposition home or self-care (01) ==
LOC: LAB.N 13:35
PROVIDERS: ATTEND Nurse Practitioner Family
DX: E03.9 Hypothyroidism, unspecified (principal)
CPT/HCPCS: 36415; 84443

== ENCOUNTER 2023-04-07 19:44 | Outpatient (CLI) | payer MEDICAID ==
--- NOTE | 2023-04-07 23:13 | Ultrasound Report ---
PROCEDURE: Pelvic w/Transvaginal INDICATIONS: PELVIC PAIN TECHNIQUE: Real-time scanning was performed of the pelvic organs, with image documentation. Additional endovagi nal scanning was necessary due to incomplete visualization of the adnexal and endometrial structures by transabdominal scanning. COMPARISON: None. FINDINGS: Uterus: Uterus is anteverted and normal in size at 9.5 x 4.3 x 6.4 cm. The myometrium is homogeneou s. The endometrium measures 11 mm in combined thickness. A trace amount of fluid can be seen along t he cervical canal. Ovaries: The right ovary measures 3.9 x 3.3 x 3.7 cm, with a calculated ovarian volume of 25.1 cc. Within the right ovary, there is a simple cyst seen that measures up to 3.1 cm. A 6 mm right paraovar diann cyst is also seen. The left ovary measures 2.4 x 2.3 x 3.1 cm, with a calculated ovarian volume of 9.1 cc. The ovaries have a normal sonographic appearance. More than 12 follicles can be seen in each ovary. No adnexal masses are seen. Other: No pathologic free abdominal or pelvic fluid. IMPRESSION: There is a 3.1 cm right ovarian cyst seen. In a patient of this age, this is most likely benign. Kaur mt, please consider a follow-up pelvic ultrasound in 6 weeks to evaluate for resolution/improvement. More than 12 follicles can be seen involving each ovary. Please consider polycystic ovarian syndrome. Reviewed by: Ramses Roberts MD on 04/07/2023 10:12 PM ANA Approved by: Ramses Roberts MD on 04/07/2023 10:12 PM ANA Station ID: [id number]
== END 2023-04-07 19:45 | disposition home or self-care (01) ==
LOC: DI 19:44
PROVIDERS: ATTEND Physician Assistant
DX: N83.291 Other ovarian cyst, right side (principal)

== ENCOUNTER 2023-04-30 09:16 | Emergency (ER) | payer MEDICAID ==
[2023-04-30 09:45] VITALS: BP 130/74
--- OUTSIDE RECORDS SUMMARY | 2023-04-30 10:00 | EXTERNAL MEDICAL SUMMARY RPT | Continuity of Care Document ---
Author Name Unknown Address [address] [place] [address] Phone Organization [facility] Address [address] [place] [address] Phone Care Team Providers Care Copier And Printer Field Technician Name Role Phone Unavailable Unavailable Unavailable Josefina Baumann Unavailable Unavailable Allergies and Intolerances date description facility type (no date) [facility] (unknown) Medications date description facility 2023-04-06 00:00 Lidocaine [facility] 2023-04-06 00:00 Ibuprofen [facility] 2023-04-06 00:00 [facility] 2023-02-07 00:00 Meloxicam [facility] Problems date description facility 2023-02-07 00:00 Low back pain [facility] 2023-02-07 08:48 Hypothyroidism, unspecified [facility] Results/Labs test date author facility value unit interpretation Result panel 1 (unknown) (no date) (unknown) (unknown) (no value) (units unknown) (unknown) (unknown) (no date) (unknown) (unknown) (0=absent, 1=s light response, 2=brisk/normal, 3=very brisk, 4=clonus) (units unknown) (unknown) (unknown) (no date) (unknown) (unknown) (segments are from the International Standards for Neurological Classification (units unknown) (unknown) (unknown) (no date) (unknown) (unknown) - Activity: Co ntinue activity as tolerated. [] (units unknown) (unknown) (unknown) (no date) (unknown) (unknown) - Chiropractor , acupuncture[] (units unknown) (unknown) (unknown) (no date) (unknown) (unknown) - Continues cl inician directed home exercise program including exercises learned (units unknown) (unknown) (unknown) (no date) (unknown) (unknown) - Education: C auda equina and associated symptoms, including motor weakness, (units unknown) (unknown) (unknown) (no date) (unknown) (unknown) - FADIR: [(-/+ ) on the R side / L side / bilaterally] (units unknown) (unknown) (unknown) (no date) (unknown) (unknown) - Follow-up: [] (uni ts unknown) (unknown) (unknown) (no date) (unknown) (unknown) - Hip ROM is: [WNL / limited and painful on the R sided / L side / bilaterally] (units unknown) (unknown) (unknown) (no date) (unknown) (unknown) - I discussed risks, benefits and side effects. Additionally, patient was (units unknown) (unknown) (unknown) (no date) (unknown) (unknown) - Imaging: No new imaging indicated at this time. [] (units unknown) (unknown) (unknown) (no date) (unknown) (unknown) - Interventional/Surgica l procedures: None indicated at this time. [] (units unknown) (unknown) (unknown) (no date) (unknown) (unknown) - Lumbar facet loading: [(-/+) on the R side / L side / bilaterally] (units unknown) (unknown) (unknown) (no date) (unknown) (unknown) - Medications: No new prescription at this time. Patient will continue current (units unknown) (unknown) (unknown) (no date) (unknown) (unknown) - Medications: acetaminophen, NSAIDS, neuropathics, muscle relaxants [] (units unknown) (unknown) (unknown) (no date) (unknown) (unknown) - Physical The rapy: Completed 6 week course in the last 6 months OR Patient (units unknown) (unknown) (unknown) (no date) (unknown) (unknown) - Physical therapy/modalities/DME : Patient will likely benefit from physical (units unknown) (unknown) (unknown) (no date) (unknown) (unknown) - Prescription provided and uptitration instructions given if necessary. [] (units unknown) (unknown) (unknown) (no date) (unknown) (unknown) - Previous [] on [] provided []% relief of pain for the expected duration of the (units unknown) (unknown) (unknown) (no date) (unknown) (unknown) - Referrals: N one indicated at this time. [] (units unknown) (unknown) (unknown) (no date) (unknown) (unknown) - SIJ provocat ion testing: [ (+/-) George's finger test, posterior thrust, (units unknown) (unknown) (unknown) (no date) (unknown) (unknown) - Straight Leg Raise: [(-/+) on the L side / R side / bilaterally] (units unknown) (unknown) (unknown) (no date) (unknown) (unknown) 01/14/2023. Sh fritz presented to the emergency department and was given lidocaine (units unknown) (unknown) (unknown) (no date) (unknown) (unknown) 02/02/23 (units unknown) (unknown) (unknown) (no date) (unknown) (unknown) : [id number] (units unknown) (unknown) (unknown) (no date) (unknown) (unknown) ? Inspection - ? No gross appendicular or axial deformities (units unknown) (unknown) (unknown) (no date) (unknown) (unknown) ? Palpation -? [Tender to palpation of / No tenderness to palpation] (units unknown) (unknown) (unknown) (no date) (unknown) (unknown) ? ROM - [Lumba r flexion/ extension/ lateral rotation is limited due to pain / (units unknown) (unknown) (unknown) (no date) (unknown) (unknown) ? Special tests (uni ts unknown) (unknown) (unknown) (no date) (unknown) (unknown) ? Acetaminophen (units unknown) (unknown) (unknown) (no date) (unknown) (unknown) ? Antidepressants (units unknown) (unknown) (unknown) (no date) (unknown) (unknown) ? Antiepileptics (units unknown) (unknown) (unknown) (no date) (unknown) (unknown) ? Mu scle Relaxants (units unknown) (unknown) (unknown) (no date) (unknown) (unknown) ? NSAIDs ( units unknown) (unknown) (unknown) (no date) (unknown) (unknown) ? Opioids (units unknown) (unknown) (unknown) (no date) (unknown) (unknown) ? Steroids (units unknown) (unknown) (unknown) (no date) (unknown) (unknown) ? Topicals (units unknown) (unknown) (unknown) (no date) (unknown) (unknown) ADHD (units unknown) (unknown) (unknown) (no date) (unknown) (unknown) Additional Soc ial History (units unknown) (unknown) (unknown) (no date) (unknown) (unknown) Age/Sex: 32 / F Date of Service: (units unknown) (unknown) (unknown) (no date) (unknown) (unknown) Aggravating fa ctors include: (units unknown) (unknown) (unknown) (no date) (unknown) (unknown) Alcoholism (units unknown) (unknown) (unknown) (no date) (unknown) (unknown) All other syst ems reviewed and are unremarkable except as noted in HPI. (units unknown) (unknown) (unknown) (no date) (unknown) (unknown) Allergies (units unknown) (unknown) (unknown) (no date) (unknown) (unknown) [place] [address] (units unknown) (unknown) (unknown) (no date) (unknown) (unknown) Anaphylaxis (units unknown) (unknown) (unknown) (no date) (unknown) (unknown) Anesthesia (units unknown) (unknown) (unknown) (no date) (unknown) (unknown) Assessment + Plan (u nits unknown) (unknown) (unknown) (no date) (unknown) (unknown) Assessment: (units unknown) (unknown) (unknown) (no date) (unknown) (unknown) Attending Dr: Celio Tejada MD (units unknown) (unknown) (unknown) (no date) (unknown) (unknown) [facility]em[employer] Abby ngoing Downgoing (units unknown) (unknown) (unknown) (no date) (unknown) (unknown) Bowel and blad yan: No loss of control (units unknown) (unknown) (unknown) (no date) (unknown) (unknown) Cardiovascular : No edema or cyanosis. 2+ peripheral pulses (units unknown) (unknown) (unknown) (no date) (unknown) (unknown) Carpal tunnel syndrome (-2018) (units unknown) (unknown) (unknown) (no date) (unknown) (unknown) Chart review: (units unknown) (unknown) (unknown) (no date) (unknown) (unknown) Chief Complaint (uni ts unknown) (unknown) (unknown) (no date) (unknown) (unknown) Chief Complain t: Low back pain (units unknown) (unknown) (unknown) (no date) (unknown) (unknown) Clonus None None (un its unknown) (unknown) (unknown) (no date) (unknown) (unknown) Conservative management includes: (units unknown) (unknown) (unknown) (no date) (unknown) (unknown) Continue [facility] physical therapy. [] (units unknown) (unknown) (unknown) (no date) (unknown) (unknown) Continue home exercise program. 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 (units unknown) (unknown) (unknown) (no date) (unknown) (unknown) Details: (units unknown) (unknown) (unknown) (no date) (unknown) (unknown) Diet and Exercise (u nits unknown) (unknown) (unknown) (no date) (unknown) (unknown) Documented By: Celio Tejada MD 02/02/23 1412 (units unknown) (unknown) (unknown) (no date) (unknown) (unknown) Draft (units unknown) (unknown) (unknown) (no date) (unknown) (unknown) Exam Narrative (unit s unknown) (unknown) (unknown) (no date) (unknown) (unknown) Exam Narrative: (uni ts unknown) (unknown) (unknown) (no date) (unknown) (unknown) Exam (units unknown) (unknown) (unknown) (no date) (unknown) (unknown) Traci MORENO n's, Pelvic rocking on the R/L side / bilaterally] (units unknown) (unknown) (unknown) (no date) (unknown) (unknown) Family History (Updated 06/08/22 @ 21:23 by Aurora Arevalo) (units unknown) (unknown) (unknown) (no date) (unknown) (unknown) Father Diabete s mellitus (units unknown) (unknown) (unknown) (no date) (unknown) (unknown) Foot pain () (u nits unknown) (unknown) (unknown) (no date) (unknown) (unknown) Gait/Station - [Non-antalgic gait. Heel/toe walking intact. Tandem gait normal (units unknown) (unknown) (unknown) (no date) (unknown) (unknown) General: Well-nourished, well-developed, [sex] in no acute distress (units unknown) (unknown) (unknown) (no date) (unknown) (unknown) HPI (units unknown) (unknown) (unknown) (no date) (unknown) (unknown) Heavy menstrua l period () (units unknown) (unknown) (unknown) (no date) (unknown) (unknown) History of polyhydramnios (units unknown) (unknown) (unknown) (no date) (unknown) (unknown) History of surgery ( units unknown) (unknown) (unknown) (no date) (unknown) (unknown) Hydrocodone-ac etaminop hen 5-325 mg 1 tab q.6 hours as needed (units unknown) (unknown) (unknown) (no date) (unknown) (unknown) Intake (units unknown) (unknown) (unknown) (no date) (unknown) (unknown) Intervention: Date: Outcome: (units unknown) (unknown) (unknown) (no date) (unknown) (unknown) JUSTIFICATION OF MEDICAL NECESSITY (units unknown) (unknown) (unknown) (no date) (unknown) (unknown) L-spine/T-spin e/C-spin e MRI ordered to better delineate the anatomy and help (units unknown) (unknown) (unknown) (no date) (unknown) (unknown) L2 Hip Flexion 5/5 5/5? (units unknown) (unknown) (unknown) (no date) (unknown) (unknown) L3 Knee Extens ion 5/5 5/5 (units unknown) (unknown) (unknown) (no date) (unknown) (unknown) L3-4 Patella 2+ 2 (u nits unknown) (unknown) (unknown) (no date) (unknown) (unknown) L4 Ankle Dorsi flexion 5/5 5/5 (units unknown) (unknown) (unknown) (no date) (unknown) (unknown) L5 Long Toe Ex tension 5/5 5/5 (units unknown) (unknown) (unknown) (no date) (unknown) (unknown) Hardy has a his tory of chronic low back pain with an acute exacerbation on (units unknown) (unknown) (unknown) (no date) (unknown) (unknown) Hardy is a 32-y ear-old female with a history of ASD, depression, ADHD, obesity (units unknown) (unknown) (unknown) (no date) (unknown) (unknown) Lidocaine patch 5% ( units unknown) (unknown) (unknown) (no date) (unknown) (unknown) Loc: PAIN (units unknown) (unknown) (unknown) (no date) (unknown) (unknown) MSK: System re viewed and no additional complaints, except as documented. (units unknown) (unknown) (unknown) (no date) (unknown) (unknown) Medical Histor y (Updated 11/15/22 @ 11:51 by Glen Ojeda MD) (units unknown) (unknown) (unknown) (no date) (unknown) (unknown) Medications: (units unknown) (unknown) (unknown) (no date) (unknown) (unknown) Mental health proble m (units unknown) (unknown) (unknown) (no date) (unknown) (unknown) Mother Depression (u nits unknown) (unknown) (unknown) (no date) (unknown) (unknown) Motor (units unknown) (unknown) (unknown) (no date) (unknown) (unknown) Musculoskeletal: (un its unknown) (unknown) (unknown) (no date) (unknown) (unknown) Nearsightedness (uni ts unknown) (unknown) (unknown) (no date) (unknown) (unknown) Neuro: System reviewed and no additional complaints, except as documented. (units unknown) (unknown) (unknown) (no date) (unknown) (unknown) Neurologic: (units unknown) (unknown) (unknown) (no date) (unknown) (unknown) Not indicated at this time. 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 [He/she] has attended for [sessions] (units unknown) (unknown) (unknown) (no date) (unknown) (unknown) PTSD (post-tra umatic stress disorder) (-1999) (units unknown) (unknown) (unknown) (no date) (unknown) (unknown) Pain Visit (units unknown) (unknown) (unknown) (no date) (unknown) (unknown) Pain location/Radiation: (units unknown) (unknown) (unknown) (no date) (unknown) (unknown) Pain rating: / 10 today, /10 at worst (units unknown) (unknown) (unknown) (no date) (unknown) (unknown) Painful menstr ual periods (-2019) (units unknown) (unknown) (unknown) (no date) (unknown) (unknown) Patient will r eturn for []. Risks and benefits were discussed. (units unknown) (unknown) (unknown) (no date) (unknown) (unknown) Patient's pain has been present for >6 weeks and is an average of >6/10 on 0-10 (units unknown) (unknown) (unknown) (no date) (unknown) (unknown) Patient: White Frisbee,Hardy C MR# (units unknown) (unknown) (unknown) (no date) (unknown) (unknown) Plan (units unknown) (unknown) (unknown) (no date) (unknown) (unknown) Plan/Recommendations : (units unknown) (unknown) (unknown) (no date) (unknown) (unknown) Polyhydramnios (unit s unknown) (unknown) (unknown) (no date) (unknown) (unknown) depressio n (units unknown) (unknown) (unknown) (no date) (unknown) (unknown) Prescriptions Written: [] (units unknown) (unknown) (unknown) (no date) (unknown) (unknown) Previous gladys joseph section (units unknown) (unknown) (unknown) (no date) (unknown) (unknown) Previous pain treatments included: (units unknown) (unknown) (unknown) (no date) (unknown) (unknown) Psych: Appropr iate affect, answers questions appropriately (units unknown) (unknown) (unknown) (no date) (unknown) (unknown) Quality and ti carly of pain: (units unknown) (unknown) (unknown) (no date) (unknown) (unknown) ROS Narrative (units unknown) (unknown) (unknown) (no date) (unknown) (unknown) ROS Narrative: (unit s unknown) (unknown) (unknown) (no date) (unknown) (unknown) ROS (units unknown) (unknown) (unknown) (no date) (unknown) (unknown) Reason For Visit (un its unknown) (unknown) (unknown) (no date) (unknown) (unknown) Red flag symptoms: ( units unknown) (unknown) (unknown) (no date) (unknown) (unknown) Reflex Right Left (u nits unknown) (unknown) (unknown) (no date) (unknown) (unknown) Reflexes: (units unknown) (unknown) (unknown) (no date) (unknown) (unknown) Relieving fact ors include: (units unknown) (unknown) (unknown) (no date) (unknown) (unknown) Respiratory: Non-labored breathing pattern on RA. No respiratory distress (units unknown) (unknown) (unknown) (no date) (unknown) (unknown) Restless leg syndrom e (units unknown) (unknown) (unknown) (no date) (unknown) (unknown) S1 Ankle Plantarflexion 5/5 5/5 (units unknown) (unknown) (unknown) (no date) (unknown) (unknown) S1-2 Achilles 2+ 2 ( units unknown) (unknown) (unknown) (no date) (unknown) (unknown) Saddle anesthe carlos: denies (units unknown) (unknown) (unknown) (no date) (unknown) (unknown) Safety (units unknown) (unknown) (unknown) (no date) (unknown) (unknown) Segment Action Right Left (units unknown) (unknown) (unknown) (no date) (unknown) (unknown) Segment Reflex Right Left (units unknown) (unknown) (unknown) (no date) (unknown) (unknown) Sensory -? Int act to light touch of bilateral lower extremities. Allodynia (units unknown) (unknown) (unknown) (no date) (unknown) (unknown) Signed By: (units unknown) (unknown) (unknown) (no date) (unknown) (unknown) Skin: No appre ciable rashes or skin breakdown (units unknown) (unknown) (unknown) (no date) (unknown) (unknown) Smoking Status : Former smoker (units unknown) (unknown) (unknown) (no date) (unknown) (unknown) Social History (unit s unknown) (unknown) (unknown) (no date) (unknown) (unknown) Son Hearing loss (un its unknown) (unknown) (unknown) (no date) (unknown) (unknown) Standing: (units unknown) (unknown) (unknown) (no date) (unknown) (unknown) Surgery: Patie nt is s/p (units unknown) (unknown) (unknown) (no date) (unknown) (unknown) Surgical Histo ry (Updated 07/12/22 @ 15:10 by Josefina Baumann MD) (units unknown) (unknown) (unknown) (no date) (unknown) (unknown) [facility] (units unknown) (unknown) (unknown) (no date) (unknown) (unknown) This note may have been all or partially generated using voice recognition (units unknown) (unknown) (unknown) (no date) (unknown) (unknown) Tobacco + Subs tance Use (units unknown) (unknown) (unknown) (no date) (unknown) (unknown) Tobacco Status (unit s unknown) (unknown) (unknown) (no date) (unknown) (unknown) Today I have r eliseowed available medical information in the patient's medical (units unknown) (unknown) (unknown) (no date) (unknown) (unknown) Type(s) of exe rcise: walking (units unknown) (unknown) (unknown) (no date) (unknown) (unknown) Upper Motor Ne uron Signs: (units unknown) (unknown) (unknown) (no date) (unknown) (unknown) 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 (units unknown) (unknown) (unknown) (no date) (unknown) (unknown) We reviewed et iology, predisposing factor(s), natural course, imaging results as (units unknown) (unknown) (unknown) (no date) (unknown) (unknown) Weakness: denies (un its unknown) (unknown) (unknown) (no date) (unknown) (unknown) Roy teeth extract ed (units unknown) (unknown) (unknown) (no date) (unknown) (unknown) additional soc ial history: Difficulty other children. Would (units unknown) (unknown) (unknown) (no date) (unknown) (unknown) alcohol intake: form er (units unknown) (unknown) (unknown) (no date) (unknown) (unknown) and chronic lo w back pain who presents for further evaluation of low back pain. (units unknown) (unknown) (unknown) (no date) (unknown) (unknown) benefits of va rious treatment options were discussed with the patient in great (units unknown) (unknown) (unknown) (no date) (unknown) (unknown) bowel/bladder dysfunction, and perineal numbness were discussed. The patient was (units unknown) (unknown) (unknown) (no date) (unknown) (unknown) caffeine: Yes (soft drinks in small quantities, well within 200mg limit) (units unknown) (unknown) (unknown) (no date) (unknown) (unknown) cannot tolerat e physical therapy at the current time due to the intensity of the (units unknown) (unknown) (unknown) (no date) (unknown) (unknown) carbon monox d etector in home: Yes (units unknown) (unknown) (unknown) (no date) (unknown) (unknown) current occupa tional exposures/hazards: Yes (units unknown) (unknown) (unknown) (no date) (unknown) (unknown) daily servings fruits/ve or more times/day (units unknown) (unknown) (unknown) (no date) (unknown) (unknown) delivery. (units unknown) (unknown) (unknown) (no date) (unknown) (unknown) detail. (units unknown) (unknown) (unknown) (no date) (unknown) (unknown) disc protrusio n without canal stenosis at C5-6. (units unknown) (unknown) (unknown) (no date) (unknown) (unknown) do you feel sa fe at home: Yes (units unknown) (unknown) (unknown) (no date) (unknown) (unknown) during the pas t year weight has: other (wide fluctuations since last ) (units unknown) (unknown) (unknown) (no date) (unknown) (unknown) education leve l: vocational (some college, certificate programs) (units unknown) (unknown) (unknown) (no date) (unknown) (unknown) fire extinguis her in home: Yes (units unknown) (unknown) (unknown) (no date) (unknown) (unknown) firearms in ho me: Yes firearms unloaded and locked: Yes (units unknown) (unknown) (unknown) (no date) (unknown) (unknown) flaxseed Aller gy (Severe, Verified 01/05/23 14:49) (units unknown) (unknown) (unknown) (no date) (unknown) (unknown) foraminal sten osis and a mild right paracentral disc protrusion at L5-S1 without (units unknown) (unknown) (unknown) (no date) (unknown) (unknown) grade breast p ump that she can have when she goes home from hospital after (units unknown) (unknown) (unknown) (no date) (unknown) (unknown) have occurred. If there are any questions, please contact the Medical Records (units unknown) (unknown) (unknown) (no date) (unknown) (unknown) household memb ers: spouse, family ([id number] and his 3 children (moving out (units unknown) (unknown) (unknown) (no date) (unknown) (unknown) housing: house (unit s unknown) (unknown) (unknown) (no date) (unknown) (unknown) in PT. [] (units unknown) (unknown) (unknown) (no date) (unknown) (unknown) instructed to report to the Emergency department, if these symptoms occur. (units unknown) (unknown) (unknown) (no date) (unknown) (unknown) instructed to stop if any side effects. [] (units unknown) (unknown) (unknown) (no date) (unknown) (unknown) intravenous dr ug use, sustained glucocorticoid use, osteoporosis, or a focal (units unknown) (unknown) (unknown) (no date) (unknown) (unknown) lives independ ently: Yes (units unknown) (unknown) (unknown) (no date) (unknown) (unknown) local anesthet ic. During that time patient able to participate in ADLs, had imp (units unknown) (unknown) (unknown) (no date) (unknown) (unknown) low back pain and headaches and the symptoms were felt to be likely related to a (units unknown) (unknown) (unknown) (no date) (unknown) (unknown) lumbar spine s howed multilevel facet hypertrophy, no central canal stenosis or (units unknown) (unknown) (unknown) (no date) (unknown) (unknown) marital status : (units unknown) (unknown) (unknown) (no date) (unknown) (unknown) may occur. Occ asional wrong-word or 'sound-alike' substitutions may have (units unknown) (unknown) (unknown) (no date) (unknown) (unknown) meds. [] (units unknown) (unknown) (unknown) (no date) (unknown) (unknown) negative, Hype ralgesia - negative (units unknown) (unknown) (unknown) (no date) (unknown) (unknown) nerve root impingement. Thoracic spine MRI was grossly unremarkable. Cervical (units unknown) (unknown) (unknown) (no date) (unknown) (unknown) neurological d eficit with progressive or disabling symptoms. (units unknown) (unknown) (unknown) (no date) (unknown) (unknown) number of children: 3 (units unknown) (unknown) (unknown) (no date) (unknown) (unknown) occupational s tatus: unemployed and previously employed (units unknown) (unknown) (unknown) (no date) (unknown) (unknown) occurred due t o the inherent limitations of voice recognition software. Please (units unknown) (unknown) (unknown) (no date) (unknown) (unknown) of Spinal Cord Injur y) (units unknown) (unknown) (unknown) (no date) (unknown) (unknown) or immunosuppr essive therapy, previous or current cancer diagnosis, history of (units unknown) (unknown) (unknown) (no date) (unknown) (unknown) pain. [] (units unknown) (unknown) (unknown) (no date) (unknown) (unknown) patches and a prednisone taper. She was referred to Neurology on 12/29/2022 for (units unknown) (unknown) (unknown) (no date) (unknown) (unknown) pets and anima ls: Yes (horses) (units unknown) (unknown) (unknown) (no date) (unknown) (unknown) post epidural blood patch. She was referred to physical therapy. MRI of the (units unknown) (unknown) (unknown) (no date) (unknown) (unknown) read the note carefully and recognize, using context, where these substitutions (units unknown) (unknown) (unknown) (no date) (unknown) (unknown) really like to meet w/ [facility] prior to delivery and would like Rx for hospital (units unknown) (unknown) (unknown) (no date) (unknown) (unknown) record, includ ing relevant provider notes, laboratory work, and imaging. (units unknown) (unknown) (unknown) (no date) (unknown) (unknown) roved sleep, i mproved mobility, etc. (units unknown) (unknown) (unknown) (no date) (unknown) (unknown) scale and/or p ain interferes with ADLs. (units unknown) (unknown) (unknown) (no date) (unknown) (unknown) seatbelt use: always (units unknown) (unknown) (unknown) (no date) (unknown) (unknown) second hand ex posure: No (units unknown) (unknown) (unknown) (no date) (unknown) (unknown) software. Alth ough every effort is made to edit content, bookbinder chief errors (units unknown) (unknown) (unknown) (no date) (unknown) (unknown) soon)) and children (units unknown) (unknown) (unknown) (no date) (unknown) (unknown) special roland needs: No (units unknown) (unknown) (unknown) (no date) (unknown) (unknown) spinal headach e secondary to spinal anesthesia for . She is status (units unknown) (unknown) (unknown) (no date) (unknown) (unknown) spine MRI show ed right paracentral annulus tear plus minimal right paracentral (units unknown) (unknown) (unknown) (no date) (unknown) (unknown) substance use type: marijuana (in the past, not recently and not while ) (units unknown) (unknown) (unknown) (no date) (unknown) (unknown) therapeutic in jections and surgery. The risks, consequences, alternatives and (units unknown) (unknown) (unknown) (no date) (unknown) (unknown) therapy. ?A re ferral was provided for the patient. [] (units unknown) (unknown) (unknown) (no date) (unknown) (unknown) water heater t emp set < 120 deg: Yes (units unknown) (unknown) (unknown) (no date) (unknown) (unknown) well as treatm ent options including medications, physical therapy/exercise, (units unknown) (unknown) (unknown) (no date) (unknown) (unknown) well-balanced diet: daily or most days (units unknown) (unknown) (unknown) (no date) (unknown) (unknown) with future tr eatment planning. [] (units unknown) (unknown) (unknown) (no date) (unknown) (unknown) without eviden ce of ataxia. Lower quarter stability intact.] (units unknown) (unknown) (unknown) (no date) (unknown) (unknown) working smoke detector in home: Yes (units unknown) (unknown) Result panel 2 (unknown) (no date) (unknown) (unknown) (no value) (units unknown) (unknown) (unknown) (no date) (unknown) (unknown) (0=absent, 1=s light response, 2=brisk/normal, 3=very brisk, 4=clonus) (units unknown) (unknown) (unknown) (no date) (unknown) (unknown) (segments are from the International Standards for Neurological Classification (units unknown) (unknown) (unknown) (no date) (unknown) (unknown) - Activity: Co ntinue activity as tolerated. [] (units unknown) (unknown) (unknown) (no date) (unknown) (unknown) - Chiropractor , acupuncture[] (units unknown) (unknown) (unknown) (no date) (unknown) (unknown) - Continues cl inician directed home exercise program including exercises learned (units unknown) (unknown) (unknown) (no date) (unknown) (unknown) - Education: C auda equina and associated symptoms, including motor weakness, (units unknown) (unknown) (unknown) (no date) (unknown) (unknown) - FADIR: [(-/+ ) on the R side / L side / bilaterally] (units unknown) (unknown) (unknown) (no date) (unknown) (unknown) - Follow-up: [] (uni ts unknown) (unknown) (unknown) (no date) (unknown) (unknown) - Hip ROM is: [WNL / limited and painful on the R sided / L side / bilaterally] (units unknown) (unknown) (unknown) (no date) (unknown) (unknown) - I discussed risks, benefits and side effects. Additionally, patient was (units unknown) (unknown) (unknown) (no date) (unknown) (unknown) - Imaging: No new imaging indicated at this time. [] (units unknown) (unknown) (unknown) (no date) (unknown) (unknown) - Interventional/Surgica l procedures: None indicated at this time. [] (units unknown) (unknown) (unknown) (no date) (unknown) (unknown) - Lumbar facet loading: [(-/+) on the R side / L side / bilaterally] (units unknown) (unknown) (unknown) (no date) (unknown) (unknown) - Medications: No new prescription at this time. Patient will continue current (units unknown) (unknown) (unknown) (no date) (unknown) (unknown) - Medications: acetaminophen, NSAIDS, neuropathics, muscle relaxants [] (units unknown) (unknown) (unknown) (no date) (unknown) (unknown) - Physical The rapy: Completed 6 week course in the last 6 months OR Patient (units unknown) (unknown) (unknown) (no date) (unknown) (unknown) - Physical therapy/modalities/DME : Patient will likely benefit from physical (units unknown) (unknown) (unknown) (no date) (unknown) (unknown) - Prescription provided and uptitration instructions given if necessary. [] (units unknown) (unknown) (unknown) (no date) (unknown) (unknown) - Previous [] on [] provided []% relief of pain for the expected duration of the (units unknown) (unknown) (unknown) (no date) (unknown) (unknown) - Referrals: N one indicated at this time. [] (units unknown) (unknown) (unknown) (no date) (unknown) (unknown) - SIJ provocat ion testing: [ (+/-) George's finger test, posterior thrust, (units unknown) (unknown) (unknown) (no date) (unknown) (unknown) - Straight Leg Raise: [(-/+) on the L side / R side / bilaterally] (units unknown) (unknown) (unknown) (no date) (unknown) (unknown) 01/14/2023. Nicola hu presented to the emergency department and was given lidocaine (units unknown) (unknown) (unknown) (no date) (unknown) (unknown) 02/02/23 (units unknown) (unknown) (unknown) (no date) (unknown) (unknown) 02/07/23] (units unknown) (unknown) (unknown) (no date) (unknown) (unknown) : [id number] (units unknown) (unknown) (unknown) (no date) (unknown) (unknown) ? Inspection - ? No gross appendicular or axial deformities (units unknown) (unknown) (unknown) (no date) (unknown) (unknown) ? Palpation -? [Tender to palpation of / No tenderness to palpation] (units unknown) (unknown) (unknown) (no date) (unknown) (unknown) ? ROM - [Lumba r flexion/ extension/ lateral rotation is limited due to pain / (units unknown) (unknown) (unknown) (no date) (unknown) (unknown) ? Special tests (uni ts unknown) (unknown) (unknown) (no date) (unknown) (unknown) ? Acetaminophen (units unknown) (unknown) (unknown) (no date) (unknown) (unknown) ? Antidepressants (units unknown) (unknown) (unknown) (no date) (unknown) (unknown) ? Antiepileptics (units unknown) (unknown) (unknown) (no date) (unknown) (unknown) ? Mu scle Relaxants (units unknown) (unknown) (unknown) (no date) (unknown) (unknown) ? NSAIDs ( units unknown) (unknown) (unknown) (no date) (unknown) (unknown) ? Opioids (units unknown) (unknown) (unknown) (no date) (unknown) (unknown) ? Steroids (units unknown) (unknown) (unknown) (no date) (unknown) (unknown) ? Topicals (units unknown) (unknown) (unknown) (no date) (unknown) (unknown) ADHD (units unknown) (unknown) (unknown) (no date) (unknown) (unknown) Additional Soc ial History (units unknown) (unknown) (unknown) (no date) (unknown) (unknown) Age/Sex: 32 / F Date of Service: (units unknown) (unknown) (unknown) (no date) (unknown) (unknown) Aggravating fa ctors include: (units unknown) (unknown) (unknown) (no date) (unknown) (unknown) Alcoholism (units unknown) (unknown) (unknown) (no date) (unknown) (unknown) All other syst ems reviewed and are unremarkable except as noted in HPI. (units unknown) (unknown) (unknown) (no date) (unknown) (unknown) Allergies (units unknown) (unknown) (unknown) (no date) (unknown) (unknown) [place] [address] (units unknown) (unknown) (unknown) (no date) (unknown) (unknown) Anaphylaxis (units unknown) (unknown) (unknown) (no date) (unknown) (unknown) Anesthesia (units unknown) (unknown) (unknown) (no date) (unknown) (unknown) Assessment + Plan (u nits unknown) (unknown) (unknown) (no date) (unknown) (unknown) Assessment: (units unknown) (unknown) (unknown) (no date) (unknown) (unknown) Attending Dr: Celio Tejada MD (units unknown) (unknown) (unknown) (no date) (unknown) (unknown) Saleem's Abby ngoing Downgoing (units unknown) (unknown) (unknown) (no date) (unknown) (unknown) Bowel and blad yan: No loss of control (units unknown) (unknown) (unknown) (no date) (unknown) (unknown) Cardiovascular : No edema or cyanosis. 2+ peripheral pulses (units unknown) (unknown) (unknown) (no date) (unknown) (unknown) Carpal tunnel syndrome () (units unknown) (unknown) (unknown) (no date) (unknown) (unknown) Chart review: (units unknown) (unknown) (unknown) (no date) (unknown) (unknown) Chief Complaint (uni ts unknown) (unknown) (unknown) (no date) (unknown) (unknown) Chief Complain t: Low back pain (units unknown) (unknown) (unknown) (no date) (unknown) (unknown) Clonus None None (un its unknown) (unknown) (unknown) (no date) (unknown) (unknown) Conservative management includes: (units unknown) (unknown) (unknown) (no date) (unknown) (unknown) Consult to [facility] low back pain s/p 11/2022 (units unknown) (unknown) (unknown) (no date) (unknown) (unknown) Continue bobo contreras physical therapy. [] (units unknown) (unknown) (unknown) (no date) (unknown) (unknown) Continue home exercise program. 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 (units unknown) (unknown) (unknown) (no date) (unknown) (unknown) Details: (units unknown) (unknown) (unknown) (no date) (unknown) (unknown) Diet and Exercise (u nits unknown) (unknown) (unknown) (no date) (unknown) (unknown) Documented By: Celio Tejada MD 02/02/23 1412 (units unknown) (unknown) (unknown) (no date) (unknown) (unknown) Draft (units unknown) (unknown) (unknown) (no date) (unknown) (unknown) Exam Narrative (unit s unknown) (unknown) (unknown) (no date) (unknown) (unknown) Exam Narrative: (uni ts unknown) (unknown) (unknown) (no date) (unknown) (unknown) Exam (units unknown) (unknown) (unknown) (no date) (unknown) (unknown) Traci MORENO n's, Pelvic rocking on the R/L side / bilaterally] (units unknown) (unknown) (unknown) (no date) (unknown) (unknown) Family History (Updated 06/08/22 @ 21:23 by Aurora Arevalo) (units unknown) (unknown) (unknown) (no date) (unknown) (unknown) Father Diabete s mellitus (units unknown) (unknown) (unknown) (no date) (unknown) (unknown) Foot pain (-2020) (u nits unknown) (unknown) (unknown) (no date) (unknown) (unknown) Gait/Station - [Non-antalgic gait. Heel/toe walking intact. Tandem gait normal (units unknown) (unknown) (unknown) (no date) (unknown) (unknown) General: Well-nourished, well-developed, [sex] in no acute distress (units unknown) (unknown) (unknown) (no date) (unknown) (unknown) HPI (units unknown) (unknown) (unknown) (no date) (unknown) (unknown) Heavy menstrua l period (-2020) (units unknown) (unknown) (unknown) (no date) (unknown) (unknown) History of polyhydramnios (units unknown) (unknown) (unknown) (no date) (unknown) (unknown) History of surgery ( units unknown) (unknown) (unknown) (no date) (unknown) (unknown) Hydrocodone-ac etaminop hen 5-325 mg 1 tab q.6 hours as needed (units unknown) (unknown) (unknown) (no date) (unknown) (unknown) Intake Clinical Staf f (units unknown) (unknown) (unknown) (no date) (unknown) (unknown) Intake Note: (units unknown) (unknown) (unknown) (no date) (unknown) (unknown) Intake perform ed by: Shell Portillo (units unknown) (unknown) (unknown) (no date) (unknown) (unknown) Intake (units unknown) (unknown) (unknown) (no date) (unknown) (unknown) Intervention: Date: Outcome: (units unknown) (unknown) (unknown) (no date) (unknown) (unknown) JUSTIFICATION OF MEDICAL NECESSITY (units unknown) (unknown) (unknown) (no date) (unknown) (unknown) L-spine/T-spin e/C-spin e MRI ordered to better delineate the anatomy and help (units unknown) (unknown) (unknown) (no date) (unknown) (unknown) L2 Hip Flexion 5/5 5/5? (units unknown) (unknown) (unknown) (no date) (unknown) (unknown) L3 Knee Extens ion 5/5 5/5 (units unknown) (unknown) (unknown) (no date) (unknown) (unknown) L3-4 Patella 2+ 2 (u nits unknown) (unknown) (unknown) (no date) (unknown) (unknown) L4 Ankle Dorsi flexion 5/5 5/5 (units unknown) (unknown) (unknown) (no date) (unknown) (unknown) L5 Long Toe Ex tension 5/5 5/5 (units unknown) (unknown) (unknown) (no date) (unknown) (unknown) Hardy has a his tory of chronic low back pain with an acute exacerbation on (units unknown) (unknown) (unknown) (no date) (unknown) (unknown) Hardy is a 32-y ear-old female with a history of ASD, depression, ADHD, obesity (units unknown) (unknown) (unknown) (no date) (unknown) (unknown) Lidocaine patch 5% ( units unknown) (unknown) (unknown) (no date) (unknown) (unknown) Loc: PAIN (units unknown) (unknown) (unknown) (no date) (unknown) (unknown) MSK: System re viewed and no additional complaints, except as documented. (units unknown) (unknown) (unknown) (no date) (unknown) (unknown) Medical Histor y (Updated 11/15/22 @ 11:51 by Glen Ojeda MD) (units unknown) (unknown) (unknown) (no date) (unknown) (unknown) Medications (units unknown) (unknown) (unknown) (no date) (unknown) (unknown) Medications: (units unknown) (unknown) (unknown) (no date) (unknown) (unknown) Mental health proble m (units unknown) (unknown) (unknown) (no date) (unknown) (unknown) Mother Depression (u nits unknown) (unknown) (unknown) (no date) (unknown) (unknown) Motor (units unknown) (unknown) (unknown) (no date) (unknown) (unknown) Musculoskeletal: (un its unknown) (unknown) (unknown) (no date) (unknown) (unknown) Nearsightedness (uni ts unknown) (unknown) (unknown) (no date) (unknown) (unknown) Neuro: System reviewed and no additional complaints, except as documented. (units unknown) (unknown) (unknown) (no date) (unknown) (unknown) Neurologic: (units unknown) (unknown) (unknown) (no date) (unknown) (unknown) Not indicated at this time. 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 [He/she] has attended for [sessions] (units unknown) (unknown) (unknown) (no date) (unknown) (unknown) PTSD (post-tra umatic stress disorder) (-1999) (units unknown) (unknown) (unknown) (no date) (unknown) (unknown) Pain Visit (units unknown) (unknown) (unknown) (no date) (unknown) (unknown) Pain location/Radiation: (units unknown) (unknown) (unknown) (no date) (unknown) (unknown) Pain rating: / 10 today, /10 at worst (units unknown) (unknown) (unknown) (no date) (unknown) (unknown) Painful menstr ual periods (-2019) (units unknown) (unknown) (unknown) (no date) (unknown) (unknown) Patient will r eturn for []. Risks and benefits were discussed. (units unknown) (unknown) (unknown) (no date) (unknown) (unknown) Patient's pain has been present for >6 weeks and is an average of >6/10 on 0-10 (units unknown) (unknown) (unknown) (no date) (unknown) (unknown) Patient: Hardy Cruz MR# (units unknown) (unknown) (unknown) (no date) (unknown) (unknown) Plan (units unknown) (unknown) (unknown) (no date) (unknown) (unknown) Plan/Recommendations : (units unknown) (unknown) (unknown) (no date) (unknown) (unknown) Polyhydramnios (unit s unknown) (unknown) (unknown) (no date) (unknown) (unknown) depressio n (units unknown) (unknown) (unknown) (no date) (unknown) (unknown) Prescriptions Written: [] (units unknown) (unknown) (unknown) (no date) (unknown) (unknown) Previous gladys joseph section (units unknown) (unknown) (unknown) (no date) (unknown) (unknown) Previous pain treatments included: (units unknown) (unknown) (unknown) (no date) (unknown) (unknown) Psych: Appropr iate affect, answers questions appropriately (units unknown) (unknown) (unknown) (no date) (unknown) (unknown) Quality and ti carly of pain: (units unknown) (unknown) (unknown) (no date) (unknown) (unknown) ROS Narrative (units unknown) (unknown) (unknown) (no date) (unknown) (unknown) ROS Narrative: (unit s unknown) (unknown) (unknown) (no date) (unknown) (unknown) ROS (units unknown) (unknown) (unknown) (no date) (unknown) (unknown) Reason For Visit (un its unknown) (unknown) (unknown) (no date) (unknown) (unknown) Red flag symptoms: ( units unknown) (unknown) (unknown) (no date) (unknown) (unknown) Reflex Right Left (u nits unknown) (unknown) (unknown) (no date) (unknown) (unknown) Reflexes: (units unknown) (unknown) (unknown) (no date) (unknown) (unknown) Relieving fact ors include: (units unknown) (unknown) (unknown) (no date) (unknown) (unknown) Respiratory: Non-labored breathing pattern on RA. No respiratory distress (units unknown) (unknown) (unknown) (no date) (unknown) (unknown) Restless leg syndrom e (units unknown) (unknown) (unknown) (no date) (unknown) (unknown) S1 Ankle Plantarflexion 5/5 5/5 (units unknown) (unknown) (unknown) (no date) (unknown) (unknown) S1-2 Achilles 2+ 2 ( units unknown) (unknown) (unknown) (no date) (unknown) (unknown) Saddle anesthe carlos: denies (units unknown) (unknown) (unknown) (no date) (unknown) (unknown) Safety (units unknown) (unknown) (unknown) (no date) (unknown) (unknown) Segment Action Right Left (units unknown) (unknown) (unknown) (no date) (unknown) (unknown) Segment Reflex Right Left (units unknown) (unknown) (unknown) (no date) (unknown) (unknown) Sensory -? Int act to light touch of bilateral lower extremities. Allodynia (units unknown) (unknown) (unknown) (no date) (unknown) (unknown) Signed By: (units unknown) (unknown) (unknown) (no date) (unknown) (unknown) Skin: No appre ciable rashes or skin breakdown (units unknown) (unknown) (unknown) (no date) (unknown) (unknown) Smoking Status : Former smoker (units unknown) (unknown) (unknown) (no date) (unknown) (unknown) Social History (unit s unknown) (unknown) (unknown) (no date) (unknown) (unknown) Son Hearing loss (un its unknown) (unknown) (unknown) (no date) (unknown) (unknown) Standing: (units unknown) (unknown) (unknown) (no date) (unknown) (unknown) Surgery: Patie nt is s/p (units unknown) (unknown) (unknown) (no date) (unknown) (unknown) Surgical Histo ry (Updated 07/12/22 @ 15:10 by Josefina Buamann MD) (units unknown) (unknown) (unknown) (no date) (unknown) (unknown) [facility] (units unknown) (unknown) (unknown) (no date) (unknown) (unknown) This note may have been all or partially generated using voice recognition (units unknown) (unknown) (unknown) (no date) (unknown) (unknown) Tobacco + Subs tance Use (units unknown) (unknown) (unknown) (no date) (unknown) (unknown) Tobacco Status (unit s unknown) (unknown) (unknown) (no date) (unknown) (unknown) Today I have r eviewed available medical information in the patient's medical (units unknown) (unknown) (unknown) (no date) (unknown) (unknown) Type(s) of exe rcise: walking (units unknown) (unknown) (unknown) (no date) (unknown) (unknown) Upper Motor Ne uron Signs: (units unknown) (unknown) (unknown) (no date) (unknown) (unknown) 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 (units unknown) (unknown) (unknown) (no date) (unknown) (unknown) We reviewed et iology, predisposing factor(s), natural course, imaging results as (units unknown) (unknown) (unknown) (no date) (unknown) (unknown) Weakness: denies (un its unknown) (unknown) (unknown) (no date) (unknown) (unknown) Roy teeth extract ed (units unknown) (unknown) (unknown) (no date) (unknown) (unknown) additional soc ial history: Difficulty other children. Would (units unknown) (unknown) (unknown) (no date) (unknown) (unknown) alcohol intake: form er (units unknown) (unknown) (unknown) (no date) (unknown) (unknown) and chronic lo w back pain who presents for further evaluation of low back pain. (units unknown) (unknown) (unknown) (no date) (unknown) (unknown) benefits of va rious treatment options were discussed with the patient in great (units unknown) (unknown) (unknown) (no date) (unknown) (unknown) bowel/bladder dysfunction, and perineal numbness were discussed. The patient was (units unknown) (unknown) (unknown) (no date) (unknown) (unknown) caffeine: Yes (soft drinks in small quantities, well within 200mg limit) (units unknown) (unknown) (unknown) (no date) (unknown) (unknown) cannot tolerat e physical therapy at the current time due to the intensity of the (units unknown) (unknown) (unknown) (no date) (unknown) (unknown) carbon monox d etector in home: Yes (units unknown) (unknown) (unknown) (no date) (unknown) (unknown) citalopram 10 mg tablet (Celexa) 20 mg PO DAILY #60 tabs 12/07/22 [Rx Confirmed (units unknown) (unknown) (unknown) (no date) (unknown) (unknown) current occupa tional exposures/hazards: Yes (units unknown) (unknown) (unknown) (no date) (unknown) (unknown) daily servings fruits/ve or more times/day (units unknown) (unknown) (unknown) (no date) (unknown) (unknown) delivery. (units unknown) (unknown) (unknown) (no date) (unknown) (unknown) detail. (units unknown) (unknown) (unknown) (no date) (unknown) (unknown) disc protrusio n without canal stenosis at C5-6. (units unknown) (unknown) (unknown) (no date) (unknown) (unknown) do you feel sa fe at home: Yes (units unknown) (unknown) (unknown) (no date) (unknown) (unknown) double electri c breast pump 1 ea topical .prn #1 ea 11/01/22 [Rx Confirmed (units unknown) (unknown) (unknown) (no date) (unknown) (unknown) during the pas t year weight has: other (wide fluctuations since last ) (units unknown) (unknown) (unknown) (no date) (unknown) (unknown) education matt l: vocational (some college, certificate programs) (units unknown) (unknown) (unknown) (no date) (unknown) (unknown) fire extinguis her in home: Yes (units unknown) (unknown) (unknown) (no date) (unknown) (unknown) firearms in ho me: Yes firearms unloaded and locked: Yes (units unknown) (unknown) (unknown) (no date) (unknown) (unknown) flaxseed Aller gy (Severe, Verified 02/07/23 08:41) (units unknown) (unknown) (unknown) (no date) (unknown) (unknown) foraminal sten osis and a mild right paracentral disc protrusion at L5-S1 without (units unknown) (unknown) (unknown) (no date) (unknown) (unknown) grade breast p ump that she can have when she goes home from hospital after (units unknown) (unknown) (unknown) (no date) (unknown) (unknown) have occurred. If there are any questions, please contact the Medical Records (units unknown) (unknown) (unknown) (no date) (unknown) (unknown) household memb ers: spouse, family ([id number] and his 3 children (moving out (units unknown) (unknown) (unknown) (no date) (unknown) (unknown) housing: house (unit s unknown) (unknown) (unknown) (no date) (unknown) (unknown) improved sleep , improved mobility, etc. (units unknown) (unknown) (unknown) (no date) (unknown) (unknown) in PT. [] (units unknown) (unknown) (unknown) (no date) (unknown) (unknown) instructed to report to the Emergency department, if these symptoms occur. (units unknown) (unknown) (unknown) (no date) (unknown) (unknown) instructed to stop if any side effects. [] (units unknown) (unknown) (unknown) (no date) (unknown) (unknown) intravenous dr ug use, sustained glucocorticoid use, osteoporosis, or a focal (units unknown) (unknown) (unknown) (no date) (unknown) (unknown) levothyroxine 137 mcg tablet 137 mcg PO DAILY #30 tabs 10/17/22 [Rx Confirmed (units unknown) (unknown) (unknown) (no date) (unknown) (unknown) lives independ ently: Yes (units unknown) (unknown) (unknown) (no date) (unknown) (unknown) local anesthet ic. During that time patient able to participate in ADLs, had (units unknown) (unknown) (unknown) (no date) (unknown) (unknown) low back pain and headaches and the symptoms were felt to be likely related to a (units unknown) (unknown) (unknown) (no date) (unknown) (unknown) lumbar spine s howed multilevel facet hypertrophy, no central canal stenosis or (units unknown) (unknown) (unknown) (no date) (unknown) (unknown) marital status : (units unknown) (unknown) (unknown) (no date) (unknown) (unknown) may occur. Occ asional wrong-word or 'sound-alike' substitutions may have (units unknown) (unknown) (unknown) (no date) (unknown) (unknown) meds. [] (units unknown) (unknown) (unknown) (no date) (unknown) (unknown) negative, Hype ralgesia - negative (units unknown) (unknown) (unknown) (no date) (unknown) (unknown) nerve root impingement. Thoracic spine MRI was grossly unremarkable. Cervical (units unknown) (unknown) (unknown) (no date) (unknown) (unknown) neurological d eficit with progressive or disabling symptoms. (units unknown) (unknown) (unknown) (no date) (unknown) (unknown) number of children: 3 (units unknown) (unknown) (unknown) (no date) (unknown) (unknown) occupational s tatus: unemployed and previously employed (units unknown) (unknown) (unknown) (no date) (unknown) (unknown) occurred due t o the inherent limitations of voice recognition software. Please (units unknown) (unknown) (unknown) (no date) (unknown) (unknown) of Spinal Cord Injur y) (units unknown) (unknown) (unknown) (no date) (unknown) (unknown) or immunosuppr essive therapy, previous or current cancer diagnosis, history of (units unknown) (unknown) (unknown) (no date) (unknown) (unknown) oxycodone 5 mg tablet 5 mg PO Q8H PRN pain #10 tabs 01/06/23 [Rx Confirmed (units unknown) (unknown) (unknown) (no date) (unknown) (unknown) pain. [] (units unknown) (unknown) (unknown) (no date) (unknown) (unknown) patches and a prednisone taper. She was referred to Neurology on 12/29/2022 for (units unknown) (unknown) (unknown) (no date) (unknown) (unknown) pets and anima ls: Yes (horses) (units unknown) (unknown) (unknown) (no date) (unknown) (unknown) post epidural blood patch. She was referred to physical therapy. MRI of the (units unknown) (unknown) (unknown) (no date) (unknown) (unknown) prenat.vits,ca l,min-ir on-folic 1 tab PO DAILY 04/22/22 [History Confirmed (units unknown) (unknown) (unknown) (no date) (unknown) (unknown) read the note carefully and recognize, using context, where these substitutions (units unknown) (unknown) (unknown) (no date) (unknown) (unknown) really like to meet w/ [facility] prior to delivery and would like Rx for hospital (units unknown) (unknown) (unknown) (no date) (unknown) (unknown) record, includ ing relevant provider notes, laboratory work, and imaging. (units unknown) (unknown) (unknown) (no date) (unknown) (unknown) scale and/or p ain interferes with ADLs. (units unknown) (unknown) (unknown) (no date) (unknown) (unknown) seatbelt use: always (units unknown) (unknown) (unknown) (no date) (unknown) (unknown) second hand ex posure: No (units unknown) (unknown) (unknown) (no date) (unknown) (unknown) software. Alth ough every effort is made to edit content, bookbinder chief errors (units unknown) (unknown) (unknown) (no date) (unknown) (unknown) soon)) and children (units unknown) (unknown) (unknown) (no date) (unknown) (unknown) special roland needs: No (units unknown) (unknown) (unknown) (no date) (unknown) (unknown) spinal headach e secondary to spinal anesthesia for . She is status (units unknown) (unknown) (unknown) (no date) (unknown) (unknown) spine MRI show ed right paracentral annulus tear plus minimal right paracentral (units unknown) (unknown) (unknown) (no date) (unknown) (unknown) substance use type: marijuana (in the past, not recently and not while ) (units unknown) (unknown) (unknown) (no date) (unknown) (unknown) therapeutic in jections and surgery. The risks, consequences, alternatives and (units unknown) (unknown) (unknown) (no date) (unknown) (unknown) therapy. ?A re ferral was provided for the patient. [] (units unknown) (unknown) (unknown) (no date) (unknown) (unknown) water heater t emp set < 120 deg: Yes (units unknown) (unknown) (unknown) (no date) (unknown) (unknown) well as treatm ent options including medications, physical therapy/exercise, (units unknown) (unknown) (unknown) (no date) (unknown) (unknown) well-balanced diet: daily or most days (units unknown) (unknown) (unknown) (no date) (unknown) (unknown) with future tr eatment planning. [] (units unknown) (unknown) (unknown) (no date) (unknown) (unknown) without eviden ce of ataxia. Lower quarter stability intact.] (units unknown) (unknown) (unknown) (no date) (unknown) (unknown) working smoke detector in home: Yes (units unknown) (unknown) Result panel 3 (unknown) (no date) (unknown) (unknown) (no value) (units unknown) (unknown) (unknown) (no date) (unknown) (unknown) (0=absent, 1=s light response, 2=brisk/normal, 3=very brisk, 4=clonus) (units unknown) (unknown) (unknown) (no date) (unknown) (unknown) (segments are from the International Standards for Neurological Classification (units unknown) (unknown) (unknown) (no date) (unknown) (unknown) - Activity: Co ntinue activity as tolerated. [] (units unknown) (unknown) (unknown) (no date) (unknown) (unknown) - Chiropractor , acupuncture[] (units unknown) (unknown) (unknown) (no date) (unknown) (unknown) - Continues cl inician directed home exercise program including exercises learned (units unknown) (unknown) (unknown) (no date) (unknown) (unknown) - Education: C auda equina and associated symptoms, including motor weakness, (units unknown) (unknown) (unknown) (no date) (unknown) (unknown) - FADIR: [(-/+ ) on the R side / L side / bilaterally] (units unknown) (unknown) (unknown) (no date) (unknown) (unknown) - Follow-up: [] (uni ts unknown) (unknown) (unknown) (no date) (unknown) (unknown) - Hip ROM is: [WNL / limited and painful on the R sided / L side / bilaterally] (units unknown) (unknown) (unknown) (no date) (unknown) (unknown) - I discussed risks, benefits and side effects. Additionally, patient was (units unknown) (unknown) (unknown) (no date) (unknown) (unknown) - Imaging: No new imaging indicated at this time. [] (units unknown) (unknown) (unknown) (no date) (unknown) (unknown) - Interventional/Surgica l procedures: None indicated at this time. [] (units unknown) (unknown) (unknown) (no date) (unknown) (unknown) - Lumbar facet loading: [(-/+) on the R side / L side / bilaterally] (units unknown) (unknown) (unknown) (no date) (unknown) (unknown) - Medications: No new prescription at this time. Patient will continue current (units unknown) (unknown) (unknown) (no date) (unknown) (unknown) - Medications: acetaminophen, NSAIDS, neuropathics, muscle relaxants [] (units unknown) (unknown) (unknown) (no date) (unknown) (unknown) - Physical The rapy: Completed 6 week course in the last 6 months OR Patient (units unknown) (unknown) (unknown) (no date) (unknown) (unknown) - Physical therapy/modalities/DME : Patient will likely benefit from physical (units unknown) (unknown) (unknown) (no date) (unknown) (unknown) - Prescription provided and uptitration instructions given if necessary. [] (units unknown) (unknown) (unknown) (no date) (unknown) (unknown) - Previous [] on [] provided []% relief of pain for the expected duration of the (units unknown) (unknown) (unknown) (no date) (unknown) (unknown) - Referrals: N one indicated at this time. [] (units unknown) (unknown) (unknown) (no date) (unknown) (unknown) - SIJ provocat ion testing: [ (+/-) George's finger test, posterior thrust, (units unknown) (unknown) (unknown) (no date) (unknown) (unknown) - Straight Leg Raise: [(-/+) on the L side / R side / bilaterally] (units unknown) (unknown) (unknown) (no date) (unknown) (unknown) 01/14/2023. Sh e presented to the emergency department and was given lidocaine (units unknown) (unknown) (unknown) (no date) (unknown) (unknown) 02/07/23 (units unknown) (unknown) (unknown) (no date) (unknown) (unknown) 02/07/23] (units unknown) (unknown) (unknown) (no date) (unknown) (unknown) : [id number] (units unknown) (unknown) (unknown) (no date) (unknown) (unknown) ? Inspection - ? No gross appendicular or axial deformities (units unknown) (unknown) (unknown) (no date) (unknown) (unknown) ? Palpation -? [Tender to palpation of / No tenderness to palpation] (units unknown) (unknown) (unknown) (no date) (unknown) (unknown) ? ROM - [Lumba r flexion/ extension/ lateral rotation is limited due to pain / (units unknown) (unknown) (unknown) (no date) (unknown) (unknown) ? Special tests (uni ts unknown) (unknown) (unknown) (no date) (unknown) (unknown) ? Acetaminophen (units unknown) (unknown) (unknown) (no date) (unknown) (unknown) ? Antidepressants (units unknown) (unknown) (unknown) (no date) (unknown) (unknown) ? Antiepileptics (units unknown) (unknown) (unknown) (no date) (unknown) (unknown) ? Mu scle Relaxants (units unknown) (unknown) (unknown) (no date) (unknown) (unknown) ? NSAIDs ( units unknown) (unknown) (unknown) (no date) (unknown) (unknown) ? Opioids (units unknown) (unknown) (unknown) (no date) (unknown) (unknown) ? Steroids (units unknown) (unknown) (unknown) (no date) (unknown) (unknown) ? Topicals (units unknown) (unknown) (unknown) (no date) (unknown) (unknown) ADHD (units unknown) (unknown) (unknown) (no date) (unknown) (unknown) Additional Soc ial History (units unknown) (unknown) (unknown) (no date) (unknown) (unknown) Age/Sex: 32 / F Date of Service: (units unknown) (unknown) (unknown) (no date) (unknown) (unknown) Aggravating fa ctors include: (units unknown) (unknown) (unknown) (no date) (unknown) (unknown) Alcoholism (units unknown) (unknown) (unknown) (no date) (unknown) (unknown) All other syst ems reviewed and are unremarkable except as noted in HPI. (units unknown) (unknown) (unknown) (no date) (unknown) (unknown) Allergies (units unknown) (unknown) (unknown) (no date) (unknown) (unknown) SIL Rocha [id number] (units unknown) (unknown) (unknown) (no date) (unknown) (unknown) Anaphylaxis (units unknown) (unknown) (unknown) (no date) (unknown) (unknown) Anesthesia (units unknown) (unknown) (unknown) (no date) (unknown) (unknown) Assessment + Plan (u nits unknown) (unknown) (unknown) (no date) (unknown) (unknown) Assessment: (units unknown) (unknown) (unknown) (no date) (unknown) (unknown) Attending Dr: Celio Tejada MD (units unknown) (unknown) (unknown) (no date) (unknown) (unknown) Babedwar's Abby ngoing Downgoing (units unknown) (unknown) (unknown) (no date) (unknown) (unknown) Bowel and blad yan: No loss of control (units unknown) (unknown) (unknown) (no date) (unknown) (unknown) Cardiovascular : No edema or cyanosis. 2+ peripheral pulses (units unknown) (unknown) (unknown) (no date) (unknown) (unknown) Carpal tunnel syndrome (-2017) (units unknown) (unknown) (unknown) (no date) (unknown) (unknown) Chart review: (units unknown) (unknown) (unknown) (no date) (unknown) (unknown) Chief Complaint (uni ts unknown) (unknown) (unknown) (no date) (unknown) (unknown) Chief Complain t: Low back pain (units unknown) (unknown) (unknown) (no date) (unknown) (unknown) Clonus None None (un its unknown) (unknown) (unknown) (no date) (unknown) (unknown) Conservative management includes: (units unknown) (unknown) (unknown) (no date) (unknown) (unknown) Consult to [facility] low back pain s/p 11/2022 (units unknown) (unknown) (unknown) (no date) (unknown) (unknown) Continue bobo contreras physical therapy. [] (units unknown) (unknown) (unknown) (no date) (unknown) (unknown) Continue home exercise program. 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 (units unknown) (unknown) (unknown) (no date) (unknown) (unknown) Details: (units unknown) (unknown) (unknown) (no date) (unknown) (unknown) Diet and Exercise (u nits unknown) (unknown) (unknown) (no date) (unknown) (unknown) Documented By: Celio Tejada MD 02/02/23 1412 (units unknown) (unknown) (unknown) (no date) (unknown) (unknown) Draft (units unknown) (unknown) (unknown) (no date) (unknown) (unknown) Exam Narrative (unit s unknown) (unknown) (unknown) (no date) (unknown) (unknown) Exam Narrative: (uni ts unknown) (unknown) (unknown) (no date) (unknown) (unknown) Exam (units unknown) (unknown) (unknown) (no date) (unknown) (unknown) Traci MORENO n's, Pelvic rocking on the R/L side / bilaterally] (units unknown) (unknown) (unknown) (no date) (unknown) (unknown) Family History (Updated 06/08/22 @ 21:23 by Aurora Arevalo) (units unknown) (unknown) (unknown) (no date) (unknown) (unknown) Father Diabete s mellitus (units unknown) (unknown) (unknown) (no date) (unknown) (unknown) Foot pain (-2021) (u nits unknown) (unknown) (unknown) (no date) (unknown) (unknown) Gait/Station - [Non-antalgic gait. Heel/toe walking intact. Tandem gait normal (units unknown) (unknown) (unknown) (no date) (unknown) (unknown) General: Well-nourished, well-developed, [sex] in no acute distress (units unknown) (unknown) (unknown) (no date) (unknown) (unknown) HPI (units unknown) (unknown) (unknown) (no date) (unknown) (unknown) Heavy menstrua l period () (units unknown) (unknown) (unknown) (no date) (unknown) (unknown) History of polyhydramnios (units unknown) (unknown) (unknown) (no date) (unknown) (unknown) History of surgery ( units unknown) (unknown) (unknown) (no date) (unknown) (unknown) Hydrocodone-ac etaminop hen 5-325 mg 1 tab q.6 hours as needed (units unknown) (unknown) (unknown) (no date) (unknown) (unknown) Intake Clinical Staf f (units unknown) (unknown) (unknown) (no date) (unknown) (unknown) Intake Note: (units unknown) (unknown) (unknown) (no date) (unknown) (unknown) Intake perform ed by: Shell Portillo (units unknown) (unknown) (unknown) (no date) (unknown) (unknown) Intake (units unknown) (unknown) (unknown) (no date) (unknown) (unknown) Intervention: Date: Outcome: (units unknown) (unknown) (unknown) (no date) (unknown) (unknown) JUSTIFICATION OF MEDICAL NECESSITY (units unknown) (unknown) (unknown) (no date) (unknown) (unknown) L-spine/T-spin e/C-spin e MRI ordered to better delineate the anatomy and help (units unknown) (unknown) (unknown) (no date) (unknown) (unknown) L2 Hip Flexion 5/5 5/5? (units unknown) (unknown) (unknown) (no date) (unknown) (unknown) L3 Knee Extens ion 5/5 5/5 (units unknown) (unknown) (unknown) (no date) (unknown) (unknown) L3-4 Patella 2+ 2 (u nits unknown) (unknown) (unknown) (no date) (unknown) (unknown) L4 Ankle Dorsi flexion /5 5/5 (units unknown) (unknown) (unknown) (no date) (unknown) (unknown) L5 Long Toe Ex tension / 5/5 (units unknown) (unknown) (unknown) (no date) (unknown) (unknown) Hardy has a his tory of chronic low back pain with an acute exacerbation on (units unknown) (unknown) (unknown) (no date) (unknown) (unknown) Hardy is a 32-y ear-old female with a history of ASD, depression, ADHD, obesity (units unknown) (unknown) (unknown) (no date) (unknown) (unknown) Lidocaine patch 5% ( units unknown) (unknown) (unknown) (no date) (unknown) (unknown) Loc: PAIN (units unknown) (unknown) (unknown) (no date) (unknown) (unknown) MSK: System re viewed and no additional complaints, except as documented. (units unknown) (unknown) (unknown) (no date) (unknown) (unknown) Medical Histor y (Updated 11/15/22 @ 11:51 by Glen Ojeda MD) (units unknown) (unknown) (unknown) (no date) (unknown) (unknown) Medications (units unknown) (unknown) (unknown) (no date) (unknown) (unknown) Medications: (units unknown) (unknown) (unknown) (no date) (unknown) (unknown) Mental health proble m (units unknown) (unknown) (unknown) (no date) (unknown) (unknown) Mother Depression (u nits unknown) (unknown) (unknown) (no date) (unknown) (unknown) Motor (units unknown) (unknown) (unknown) (no date) (unknown) (unknown) Musculoskeletal: (un its unknown) (unknown) (unknown) (no date) (unknown) (unknown) Nearsightedness (uni ts unknown) (unknown) (unknown) (no date) (unknown) (unknown) Neuro: System reviewed and no additional complaints, except as documented. (units unknown) (unknown) (unknown) (no date) (unknown) (unknown) Neurologic: (units unknown) (unknown) (unknown) (no date) (unknown) (unknown) Not indicated at this time. 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 [He/she] has attended for [sessions] (units unknown) (unknown) (unknown) (no date) (unknown) (unknown) PTSD (post-tra umatic stress disorder) (-1999) (units unknown) (unknown) (unknown) (no date) (unknown) (unknown) Pain Visit (units unknown) (unknown) (unknown) (no date) (unknown) (unknown) Pain location/Radiation: (units unknown) (unknown) (unknown) (no date) (unknown) (unknown) Pain rating: / 10 today, /10 at worst (units unknown) (unknown) (unknown) (no date) (unknown) (unknown) Painful menstr ual periods (-2019) (units unknown) (unknown) (unknown) (no date) (unknown) (unknown) Patient will r eturn for []. Risks and benefits were discussed. (units unknown) (unknown) (unknown) (no date) (unknown) (unknown) Patient's pain has been present for >6 weeks and is an average of >6/10 on 0-10 (units unknown) (unknown) (unknown) (no date) (unknown) (unknown) Patient: Hardy Cruz MR# (units unknown) (unknown) (unknown) (no date) (unknown) (unknown) Plan (units unknown) (unknown) (unknown) (no date) (unknown) (unknown) Plan/Recommendations : (units unknown) (unknown) (unknown) (no date) (unknown) (unknown) Polyhydramnios (unit s unknown) (unknown) (unknown) (no date) (unknown) (unknown) depressio n (units unknown) (unknown) (unknown) (no date) (unknown) (unknown) Prescriptions Written: [] (units unknown) (unknown) (unknown) (no date) (unknown) (unknown) Previous gladys joseph section (units unknown) (unknown) (unknown) (no date) (unknown) (unknown) Previous pain treatments included: (units unknown) (unknown) (unknown) (no date) (unknown) (unknown) Psych: Appropr iate affect, answers questions appropriately (units unknown) (unknown) (unknown) (no date) (unknown) (unknown) Quality and ti carly of pain: (units unknown) (unknown) (unknown) (no date) (unknown) (unknown) ROS Narrative (units unknown) (unknown) (unknown) (no date) (unknown) (unknown) ROS Narrative: (unit s unknown) (unknown) (unknown) (no date) (unknown) (unknown) ROS (units unknown) (unknown) (unknown) (no date) (unknown) (unknown) Reason For Visit (un its unknown) (unknown) (unknown) (no date) (unknown) (unknown) Red flag symptoms: ( units unknown) (unknown) (unknown) (no date) (unknown) (unknown) Reflex Right Left (u nits unknown) (unknown) (unknown) (no date) (unknown) (unknown) Reflexes: (units unknown) (unknown) (unknown) (no date) (unknown) (unknown) Relieving fact ors include: (units unknown) (unknown) (unknown) (no date) (unknown) (unknown) Respiratory: Non-labored breathing pattern on RA. No respiratory distress (units unknown) (unknown) (unknown) (no date) (unknown) (unknown) Restless leg syndrom e (units unknown) (unknown) (unknown) (no date) (unknown) (unknown) S1 Ankle Plantarflexion 5/5 5/5 (units unknown) (unknown) (unknown) (no date) (unknown) (unknown) S1-2 Achilles 2+ 2 ( units unknown) (unknown) (unknown) (no date) (unknown) (unknown) Saddle anesthe carlos: denies (units unknown) (unknown) (unknown) (no date) (unknown) (unknown) Safety (units unknown) (unknown) (unknown) (no date) (unknown) (unknown) Segment Action Right Left (units unknown) (unknown) (unknown) (no date) (unknown) (unknown) Segment Reflex Right Left (units unknown) (unknown) (unknown) (no date) (unknown) (unknown) Sensory -? Int act to light touch of bilateral lower extremities. Allodynia (units unknown) (unknown) (unknown) (no date) (unknown) (unknown) Signed By: (units unknown) (unknown) (unknown) (no date) (unknown) (unknown) Skin: No appre ciable rashes or skin breakdown (units unknown) (unknown) (unknown) (no date) (unknown) (unknown) Smoking Status : Former smoker (units unknown) (unknown) (unknown) (no date) (unknown) (unknown) Social History (unit s unknown) (unknown) (unknown) (no date) (unknown) (unknown) Son Hearing loss (un its unknown) (unknown) (unknown) (no date) (unknown) (unknown) Standing: (units unknown) (unknown) (unknown) (no date) (unknown) (unknown) Surgery: Patie nt is s/p (units unknown) (unknown) (unknown) (no date) (unknown) (unknown) Surgical Histo ry (Updated 07/12/22 @ 15:10 by Josefina Baumann MD) (units unknown) (unknown) (unknown) (no date) (unknown) (unknown) [facility] (units unknown) (unknown) (unknown) (no date) (unknown) (unknown) This note may have been all or partially generated using voice recognition (units unknown) (unknown) (unknown) (no date) (unknown) (unknown) Tobacco + Subs tance Use (units unknown) (unknown) (unknown) (no date) (unknown) (unknown) Tobacco Status (unit s unknown) (unknown) (unknown) (no date) (unknown) (unknown) Today I have r eviewed available medical information in the patient's medical (units unknown) (unknown) (unknown) (no date) (unknown) (unknown) Type(s) of exe rcise: walking (units unknown) (unknown) (unknown) (no date) (unknown) (unknown) Upper Motor Ne uron Signs: (units unknown) (unknown) (unknown) (no date) (unknown) (unknown) 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 (units unknown) (unknown) (unknown) (no date) (unknown) (unknown) We reviewed et iology, predisposing factor(s), natural course, imaging results as (units unknown) (unknown) (unknown) (no date) (unknown) (unknown) Weakness: denies (un its unknown) (unknown) (unknown) (no date) (unknown) (unknown) Roy teeth extract ed (units unknown) (unknown) (unknown) (no date) (unknown) (unknown) additional soc ial history: Difficulty other children. Would (units unknown) (unknown) (unknown) (no date) (unknown) (unknown) alcohol intake: form er (units unknown) (unknown) (unknown) (no date) (unknown) (unknown) and chronic lo w back pain who presents for further evaluation of low back pain. (units unknown) (unknown) (unknown) (no date) (unknown) (unknown) benefits of va rious treatment options were discussed with the patient in great (units unknown) (unknown) (unknown) (no date) (unknown) (unknown) bowel/bladder dysfunction, and perineal numbness were discussed. The patient was (units unknown) (unknown) (unknown) (no date) (unknown) (unknown) caffeine: Yes (soft drinks in small quantities, well within 200mg limit) (units unknown) (unknown) (unknown) (no date) (unknown) (unknown) cannot tolerat e physical therapy at the current time due to the intensity of the (units unknown) (unknown) (unknown) (no date) (unknown) (unknown) carbon monox d etector in home: Yes (units unknown) (unknown) (unknown) (no date) (unknown) (unknown) current occupa tional exposures/hazards: Yes (units unknown) (unknown) (unknown) (no date) (unknown) (unknown) daily servings fruits/ve or more times/day (units unknown) (unknown) (unknown) (no date) (unknown) (unknown) delivery. (units unknown) (unknown) (unknown) (no date) (unknown) (unknown) detail. (units unknown) (unknown) (unknown) (no date) (unknown) (unknown) disc protrusio n without canal stenosis at C5-6. (units unknown) (unknown) (unknown) (no date) (unknown) (unknown) do you feel sa fe at home: Yes (units unknown) (unknown) (unknown) (no date) (unknown) (unknown) double electri c breast pump 1 ea topical .prn #1 ea 11/01/22 [Rx Confirmed (units unknown) (unknown) (unknown) (no date) (unknown) (unknown) during the pas t year weight has: other (wide fluctuations since last ) (units unknown) (unknown) (unknown) (no date) (unknown) (unknown) education leve l: vocational (some college, certificate programs) (units unknown) (unknown) (unknown) (no date) (unknown) (unknown) fire extinguis her in home: Yes (units unknown) (unknown) (unknown) (no date) (unknown) (unknown) firearms in ho me: Yes firearms unloaded and locked: Yes (units unknown) (unknown) (unknown) (no date) (unknown) (unknown) flaxseed Aller gy (Severe, Verified 02/07/23 08:41) (units unknown) (unknown) (unknown) (no date) (unknown) (unknown) foraminal sten osis and a mild right paracentral disc protrusion at L5-S1 without (units unknown) (unknown) (unknown) (no date) (unknown) (unknown) grade breast p ump that she can have when she goes home from hospital after (units unknown) (unknown) (unknown) (no date) (unknown) (unknown) have occurred. If there are any questions, please contact the Medical Records (units unknown) (unknown) (unknown) (no date) (unknown) (unknown) household memb ers: spouse, family ([id number] and his 3 children (moving out (units unknown) (unknown) (unknown) (no date) (unknown) (unknown) housing: house (unit s unknown) (unknown) (unknown) (no date) (unknown) (unknown) improved sleep , improved mobility, etc. (units unknown) (unknown) (unknown) (no date) (unknown) (unknown) in PT. [] (units unknown) (unknown) (unknown) (no date) (unknown) (unknown) instructed to report to the Emergency department, if these symptoms occur. (units unknown) (unknown) (unknown) (no date) (unknown) (unknown) instructed to stop if any side effects. [] (units unknown) (unknown) (unknown) (no date) (unknown) (unknown) intravenous dr ug use, sustained glucocorticoid use, osteoporosis, or a focal (units unknown) (unknown) (unknown) (no date) (unknown) (unknown) levothyroxine 137 mcg tablet 137 mcg PO DAILY #30 tabs 10/17/22 [Rx Confirmed (units unknown) (unknown) (unknown) (no date) (unknown) (unknown) lives independ ently: Yes (units unknown) (unknown) (unknown) (no date) (unknown) (unknown) local anesthet ic. During that time patient able to participate in ADLs, had (units unknown) (unknown) (unknown) (no date) (unknown) (unknown) low back pain and headaches and the symptoms were felt to be likely related to a (units unknown) (unknown) (unknown) (no date) (unknown) (unknown) lumbar spine s howed multilevel facet hypertrophy, no central canal stenosis or (units unknown) (unknown) (unknown) (no date) (unknown) (unknown) marital status : (units unknown) (unknown) (unknown) (no date) (unknown) (unknown) may occur. Occ asional wrong-word or 'sound-alike' substitutions may have (units unknown) (unknown) (unknown) (no date) (unknown) (unknown) meds. [] (units unknown) (unknown) (unknown) (no date) (unknown) (unknown) negative, Hype ralgesia - negative (units unknown) (unknown) (unknown) (no date) (unknown) (unknown) nerve root impingement. Thoracic spine MRI was grossly unremarkable. Cervical (units unknown) (unknown) (unknown) (no date) (unknown) (unknown) neurological d eficit with progressive or disabling symptoms. (units unknown) (unknown) (unknown) (no date) (unknown) (unknown) number of children: 3 (units unknown) (unknown) (unknown) (no date) (unknown) (unknown) occupational s tatus: unemployed and previously employed (units unknown) (unknown) (unknown) (no date) (unknown) (unknown) occurred due t o the inherent limitations of voice recognition software. Please (units unknown) (unknown) (unknown) (no date) (unknown) (unknown) of Spinal Cord Injur y) (units unknown) (unknown) (unknown) (no date) (unknown) (unknown) or immunosuppr essive therapy, previous or current cancer diagnosis, history of (units unknown) (unknown) (unknown) (no date) (unknown) (unknown) pain. [] (units unknown) (unknown) (unknown) (no date) (unknown) (unknown) patches and a prednisone taper. She was referred to Neurology on 12/29/2022 for (units unknown) (unknown) (unknown) (no date) (unknown) (unknown) pets and anima ls: Yes (horses) (units unknown) (unknown) (unknown) (no date) (unknown) (unknown) post epidural blood patch. She was referred to physical therapy. MRI of the (units unknown) (unknown) (unknown) (no date) (unknown) (unknown) prenat.vits,ca l,min-ir on-folic 1 tab PO DAILY 04/22/22 [History Confirmed (units unknown) (unknown) (unknown) (no date) (unknown) (unknown) read the note carefully and recognize, using context, where these substitutions (units unknown) (unknown) (unknown) (no date) (unknown) (unknown) really like to meet w/ [facility] prior to delivery and would like Rx for hospital (units unknown) (unknown) (unknown) (no date) (unknown) (unknown) record, includ ing relevant provider notes, laboratory work, and imaging. (units unknown) (unknown) (unknown) (no date) (unknown) (unknown) scale and/or p ain interferes with ADLs. (units unknown) (unknown) (unknown) (no date) (unknown) (unknown) seatbelt use: always (units unknown) (unknown) (unknown) (no date) (unknown) (unknown) second hand ex posure: No (units unknown) (unknown) (unknown) (no date) (unknown) (unknown) software. Alth ough every effort is made to edit content, bookbinder chief errors (units unknown) (unknown) (unknown) (no date) (unknown) (unknown) soon)) and children (units unknown) (unknown) (unknown) (no date) (unknown) (unknown) special roland needs: No (units unknown) (unknown) (unknown) (no date) (unknown) (unknown) spinal headach e secondary to spinal anesthesia for . She is status (units unknown) (unknown) (unknown) (no date) (unknown) (unknown) spine MRI show ed right paracentral annulus tear plus minimal right paracentral (units unknown) (unknown) (unknown) (no date) (unknown) (unknown) substance use type: marijuana (in the past, not recently and not while ) (units unknown) (unknown) (unknown) (no date) (unknown) (unknown) therapeutic in jections and surgery. The risks, consequences, alternatives and (units unknown) (unknown) (unknown) (no date) (unknown) (unknown) therapy. ?A re ferral was provided for the patient. [] (units unknown) (unknown) (unknown) (no date) (unknown) (unknown) water heater t emp set < 120 deg: Yes (units unknown) (unknown) (unknown) (no date) (unknown) (unknown) well as treatm ent options including medications, physical therapy/exercise, (units unknown) (unknown) (unknown) (no date) (unknown) (unknown) well-balanced diet: daily or most days (units unknown) (unknown) (unknown) (no date) (unknown) (unknown) with future tr eatment planning. [] (units unknown) (unknown) (unknown) (no date) (unknown) (unknown) without eviden ce of ataxia. Lower quarter stability intact.] (units unknown) (unknown) (unknown) (no date) (unknown) (unknown) working smoke detector in home: Yes (units unknown) (unknown) Result panel 4 (unknown) (no date) (unknown) (unknown) (no value) (units unknown) (unknown) (unknown) (no date) (unknown) (unknown) (0=absent, 1=s light response, 2=brisk/normal, 3=very brisk, 4=clonus) (units unknown) (unknown) (unknown) (no date) (unknown) (unknown) (segments are from the International Standards for Neurological Classification (units unknown) (unknown) (unknown) (no date) (unknown) (unknown) - Activity: Co ntinue activity as tolerated. [] (units unknown) (unknown) (unknown) (no date) (unknown) (unknown) - Chiropractor , acupuncture[] (units unknown) (unknown) (unknown) (no date) (unknown) (unknown) - Continues cl inician directed home exercise program including exercises learned (units unknown) (unknown) (unknown) (no date) (unknown) (unknown) - Education: C auda equina and associated symptoms, including motor weakness, (units unknown) (unknown) (unknown) (no date) (unknown) (unknown) - FADIR: [(-/+ ) on the R side / L side / bilaterally] (units unknown) (unknown) (unknown) (no date) (unknown) (unknown) - Follow-up: [] (uni ts unknown) (unknown) (unknown) (no date) (unknown) (unknown) - Hip ROM is: [WNL / limited and painful on the R sided / L side / bilaterally] (units unknown) (unknown) (unknown) (no date) (unknown) (unknown) - I discussed risks, benefits and side effects. Additionally, patient was (units unknown) (unknown) (unknown) (no date) (unknown) (unknown) - Imaging: No new imaging indicated at this time. [] (units unknown) (unknown) (unknown) (no date) (unknown) (unknown) - Interventional/Surgica l procedures: None indicated at this time. [] (units unknown) (unknown) (unknown) (no date) (unknown) (unknown) - Lumbar facet loading: [(-/+) on the R side / L side / bilaterally] (units unknown) (unknown) (unknown) (no date) (unknown) (unknown) - Medications: No new prescription at this time. Patient will continue current (units unknown) (unknown) (unknown) (no date) (unknown) (unknown) - Medications: acetaminophen, NSAIDS, neuropathics, muscle relaxants [] (units unknown) (unknown) (unknown) (no date) (unknown) (unknown) - Physical The rapy: Completed 6 week course in the last 6 months OR Patient (units unknown) (unknown) (unknown) (no date) (unknown) (unknown) - Physical therapy/modalities/DME : Patient will likely benefit from physical (units unknown) (unknown) (unknown) (no date) (unknown) (unknown) - Prescription provided and uptitration instructions given if necessary. [] (units unknown) (unknown) (unknown) (no date) (unknown) (unknown) - Previous [] on [] provided []% relief of pain for the expected duration of the (units unknown) (unknown) (unknown) (no date) (unknown) (unknown) - Referrals: N one indicated at this time. [] (units unknown) (unknown) (unknown) (no date) (unknown) (unknown) - SIJ provocat ion testing: [ (+/-) George's finger test, posterior thrust, (units unknown) (unknown) (unknown) (no date) (unknown) (unknown) - Straight Leg Raise: [(-/+) on the L side / R side / bilaterally] (units unknown) (unknown) (unknown) (no date) (unknown) (unknown) 01/14/2023. Sh fritz presented to the emergency department and was given lidocaine (units unknown) (unknown) (unknown) (no date) (unknown) (unknown) 02/07/23 (units unknown) (unknown) (unknown) (no date) (unknown) (unknown) 02/07/23] (units unknown) (unknown) (unknown) (no date) (unknown) (unknown) 09:29 (units unknown) (unknown) (unknown) (no date) (unknown) (unknown) : [id number] (units unknown) (unknown) (unknown) (no date) (unknown) (unknown) ? Inspection - ? No gross appendicular or axial deformities (units unknown) (unknown) (unknown) (no date) (unknown) (unknown) ? Palpation -? [Tender to palpation of / No tenderness to palpation] (units unknown) (unknown) (unknown) (no date) (unknown) (unknown) ? ROM - [Lumba r flexion/ extension/ lateral rotation is limited due to pain / (units unknown) (unknown) (unknown) (no date) (unknown) (unknown) ? Special tests (uni ts unknown) (unknown) (unknown) (no date) (unknown) (unknown) ? Acetaminophen (units unknown) (unknown) (unknown) (no date) (unknown) (unknown) ? Antidepressants (units unknown) (unknown) (unknown) (no date) (unknown) (unknown) ? Antiepileptics (units unknown) (unknown) (unknown) (no date) (unknown) (unknown) ? Mu scle Relaxants (units unknown) (unknown) (unknown) (no date) (unknown) (unknown) ? NSAIDs ( units unknown) (unknown) (unknown) (no date) (unknown) (unknown) ? Opioids (units unknown) (unknown) (unknown) (no date) (unknown) (unknown) ? Steroids (units unknown) (unknown) (unknown) (no date) (unknown) (unknown) ? Topicals (units unknown) (unknown) (unknown) (no date) (unknown) (unknown) ADHD (units unknown) (unknown) (unknown) (no date) (unknown) (unknown) Accompanied by : Self / Same As Patient (units unknown) (unknown) (unknown) (no date) (unknown) (unknown) Additional Soc ial History (units unknown) (unknown) (unknown) (no date) (unknown) (unknown) Age/Sex: 32 / F Date of Service: (units unknown) (unknown) (unknown) (no date) (unknown) (unknown) Aggravating fa ctors include: (units unknown) (unknown) (unknown) (no date) (unknown) (unknown) Alcoholism (units unknown) (unknown) (unknown) (no date) (unknown) (unknown) All other syst ems reviewed and are unremarkable except as noted in HPI. (units unknown) (unknown) (unknown) (no date) (unknown) (unknown) Allergies (units unknown) (unknown) (unknown) (no date) (unknown) (unknown) [place] [address] (units unknown) (unknown) (unknown) (no date) (unknown) (unknown) Anaphylaxis (units unknown) (unknown) (unknown) (no date) (unknown) (unknown) Anesthesia (units unknown) (unknown) (unknown) (no date) (unknown) (unknown) Assessment + Plan (u nits unknown) (unknown) (unknown) (no date) (unknown) (unknown) Assessment: (units unknown) (unknown) (unknown) (no date) (unknown) (unknown) Attending Dr: Celio Tejada MD (units unknown) (unknown) (unknown) (no date) (unknown) (unknown) BMI 45.1 (units unknown) (unknown) (unknown) (no date) (unknown) (unknown) BP 115/70 (units unknown) (unknown) (unknown) (no date) (unknown) (unknown) Babinski's Abby ngoing Downgoing (units unknown) (unknown) (unknown) (no date) (unknown) (unknown) Blood Pressure Location Rt brachial (units unknown) (unknown) (unknown) (no date) (unknown) (unknown) Bowel and blad yan: No loss of control (units unknown) (unknown) (unknown) (no date) (unknown) (unknown) Cardiovascular : No edema or cyanosis. 2+ peripheral pulses (units unknown) (unknown) (unknown) (no date) (unknown) (unknown) Carpal tunnel syndrome (-2018) (units unknown) (unknown) (unknown) (no date) (unknown) (unknown) Chart review: (units unknown) (unknown) (unknown) (no date) (unknown) (unknown) Chief Complaint (uni ts unknown) (unknown) (unknown) (no date) (unknown) (unknown) Chief Complain t: Low back pain (units unknown) (unknown) (unknown) (no date) (unknown) (unknown) Clonus None None (un its unknown) (unknown) (unknown) (no date) (unknown) (unknown) Conservative management includes: (units unknown) (unknown) (unknown) (no date) (unknown) (unknown) Consult to [facility] low back pain s/p 11/2022 (units unknown) (unknown) (unknown) (no date) (unknown) (unknown) Continue [facility]. [] (units unknown) (unknown) (unknown) (no date) (unknown) (unknown) Continue home exercise program. 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 (units unknown) (unknown) (unknown) (no date) (unknown) (unknown) Details: (units unknown) (unknown) (unknown) (no date) (unknown) (unknown) Diet and Exercise (u nits unknown) (unknown) (unknown) (no date) (unknown) (unknown) Documented By: Celio Tejada MD 02/02/23 1412 (units unknown) (unknown) (unknown) (no date) (unknown) (unknown) Draft (units unknown) (unknown) (unknown) (no date) (unknown) (unknown) Exam Narrative (unit s unknown) (unknown) (unknown) (no date) (unknown) (unknown) Exam Narrative: (uni ts unknown) (unknown) (unknown) (no date) (unknown) (unknown) Exam (units unknown) (unknown) (unknown) (no date) (unknown) (unknown) JOSHTraci n's, Pelvic rocking on the R/L side / bilaterally] (units unknown) (unknown) (unknown) (no date) (unknown) (unknown) Family History (Updated 06/08/22 @ 21:23 by Aurora Arevalo) (units unknown) (unknown) (unknown) (no date) (unknown) (unknown) Father Diabete s mellitus (units unknown) (unknown) (unknown) (no date) (unknown) (unknown) Foot pain () (u nits unknown) (unknown) (unknown) (no date) (unknown) (unknown) Gait/Station - [Non-antalgic gait. Heel/toe walking intact. Tandem gait normal (units unknown) (unknown) (unknown) (no date) (unknown) (unknown) General: Well-nourished, well-developed, [sex] in no acute distress (units unknown) (unknown) (unknown) (no date) (unknown) (unknown) HPI (units unknown) (unknown) (unknown) (no date) (unknown) (unknown) Heavy menstrua l period () (units unknown) (unknown) (unknown) (no date) (unknown) (unknown) Height 5 ft 5 in (un its unknown) (unknown) (unknown) (no date) (unknown) (unknown) History of polyhydramnios (units unknown) (unknown) (unknown) (no date) (unknown) (unknown) History of surgery ( units unknown) (unknown) (unknown) (no date) (unknown) (unknown) Hydrocodone-ac etaminop hen 5-325 mg 1 tab q.6 hours as needed (units unknown) (unknown) (unknown) (no date) (unknown) (unknown) Intake Clinical Staf f (units unknown) (unknown) (unknown) (no date) (unknown) (unknown) Intake Note: (units unknown) (unknown) (unknown) (no date) (unknown) (unknown) Intake perform ed by: Shell Portillo (units unknown) (unknown) (unknown) (no date) (unknown) (unknown) Intake (units unknown) (unknown) (unknown) (no date) (unknown) (unknown) Intervention: Date: Outcome: (units unknown) (unknown) (unknown) (no date) (unknown) (unknown) Is patient in pain?: Yes Pain scale (1-10): 5 (units unknown) (unknown) (unknown) (no date) (unknown) (unknown) JUSTIFICATION OF MEDICAL NECESSITY (units unknown) (unknown) (unknown) (no date) (unknown) (unknown) L-spine/T-spin e/C-spin e MRI ordered to better delineate the anatomy and help (units unknown) (unknown) (unknown) (no date) (unknown) (unknown) L2 Hip Flexion 5/5 5/5? (units unknown) (unknown) (unknown) (no date) (unknown) (unknown) L3 Knee Extens ion 5/5 5/5 (units unknown) (unknown) (unknown) (no date) (unknown) (unknown) L3-4 Patella 2+ 2 (u nits unknown) (unknown) (unknown) (no date) (unknown) (unknown) L4 Ankle Dorsi flexion 5/5 5/5 (units unknown) (unknown) (unknown) (no date) (unknown) (unknown) L5 Long Toe Ex tension 5/5 5/5 (units unknown) (unknown) (unknown) (no date) (unknown) (unknown) Hardy has a his tory of chronic low back pain with an acute exacerbation on (units unknown) (unknown) (unknown) (no date) (unknown) (unknown) Hardy is a 32-y ear-old female with a history of ASD, depression, ADHD, obesity (units unknown) (unknown) (unknown) (no date) (unknown) (unknown) Lidocaine patch 5% ( units unknown) (unknown) (unknown) (no date) (unknown) (unknown) Loc: PAIN (units unknown) (unknown) (unknown) (no date) (unknown) (unknown) MSK: System re viewed and no additional complaints, except as documented. (units unknown) (unknown) (unknown) (no date) (unknown) (unknown) Medical Histor y (Updated 11/15/22 @ 11:51 by Glen Ojeda MD) (units unknown) (unknown) (unknown) (no date) (unknown) (unknown) Medications (units unknown) (unknown) (unknown) (no date) (unknown) (unknown) Medications: (units unknown) (unknown) (unknown) (no date) (unknown) (unknown) Mental health proble m (units unknown) (unknown) (unknown) (no date) (unknown) (unknown) Mother Depression (u nits unknown) (unknown) (unknown) (no date) (unknown) (unknown) Motor (units unknown) (unknown) (unknown) (no date) (unknown) (unknown) Musculoskeletal: (un its unknown) (unknown) (unknown) (no date) (unknown) (unknown) Nearsightedness (uni ts unknown) (unknown) (unknown) (no date) (unknown) (unknown) Neuro: System reviewed and no additional complaints, except as documented. (units unknown) (unknown) (unknown) (no date) (unknown) (unknown) Neurologic: (units unknown) (unknown) (unknown) (no date) (unknown) (unknown) Not indicated at this time. 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 [He/she] has attended for [sessions] (units unknown) (unknown) (unknown) (no date) (unknown) (unknown) PTSD (post-tra umatic stress disorder) (-1999) (units unknown) (unknown) (unknown) (no date) (unknown) (unknown) Pain Scale (units unknown) (unknown) (unknown) (no date) (unknown) (unknown) Pain Visit (units unknown) (unknown) (unknown) (no date) (unknown) (unknown) Pain location/Radiation: (units unknown) (unknown) (unknown) (no date) (unknown) (unknown) Pain rating: / 10 today, /10 at worst (units unknown) (unknown) (unknown) (no date) (unknown) (unknown) Painful menstr ual periods (-2020) (units unknown) (unknown) (unknown) (no date) (unknown) (unknown) Patient will r eturn for []. Risks and benefits were discussed. (units unknown) (unknown) (unknown) (no date) (unknown) (unknown) Patient's pain has been present for >6 weeks and is an average of >6/10 on 0-10 (units unknown) (unknown) (unknown) (no date) (unknown) (unknown) Patient: Hardy Cruz MR# (units unknown) (unknown) (unknown) (no date) (unknown) (unknown) Plan (units unknown) (unknown) (unknown) (no date) (unknown) (unknown) Plan/Recommendations : (units unknown) (unknown) (unknown) (no date) (unknown) (unknown) Polyhydramnios (unit s unknown) (unknown) (unknown) (no date) (unknown) (unknown) Position Sitting (un its unknown) (unknown) (unknown) (no date) (unknown) (unknown) depressio n (units unknown) (unknown) (unknown) (no date) (unknown) (unknown) Prescriptions Written: [] (units unknown) (unknown) (unknown) (no date) (unknown) (unknown) Previous [facility] section (units unknown) (unknown) (unknown) (no date) (unknown) (unknown) Previous pain treatments included: (units unknown) (unknown) (unknown) (no date) (unknown) (unknown) Psych: Appropr iate affect, answers questions appropriately (units unknown) (unknown) (unknown) (no date) (unknown) (unknown) Pulse 84 (units unknown) (unknown) (unknown) (no date) (unknown) (unknown) Pulse Oximetry (%) 9 8 (units unknown) (unknown) (unknown) (no date) (unknown) (unknown) Pulse Source Monitor (units unknown) (unknown) (unknown) (no date) (unknown) (unknown) Quality and ti carly of pain: (units unknown) (unknown) (unknown) (no date) (unknown) (unknown) ROS Narrative (units unknown) (unknown) (unknown) (no date) (unknown) (unknown) ROS Narrative: (unit s unknown) (unknown) (unknown) (no date) (unknown) (unknown) ROS (units unknown) (unknown) (unknown) (no date) (unknown) (unknown) Reason For Visit (un its unknown) (unknown) (unknown) (no date) (unknown) (unknown) Red flag symptoms: ( units unknown) (unknown) (unknown) (no date) (unknown) (unknown) Reflex Right Left (u nits unknown) (unknown) (unknown) (no date) (unknown) (unknown) Reflexes: (units unknown) (unknown) (unknown) (no date) (unknown) (unknown) Relieving fact ors include: (units unknown) (unknown) (unknown) (no date) (unknown) (unknown) Respiratory: Non-labored breathing pattern on RA. No respiratory distress (units unknown) (unknown) (unknown) (no date) (unknown) (unknown) Restless leg syndrom e (units unknown) (unknown) (unknown) (no date) (unknown) (unknown) S1 Ankle Plantarflexion 5/5 5/5 (units unknown) (unknown) (unknown) (no date) (unknown) (unknown) S1-2 Achilles 2+ 2 ( units unknown) (unknown) (unknown) (no date) (unknown) (unknown) Saddle anesthe carlos: denies (units unknown) (unknown) (unknown) (no date) (unknown) (unknown) Safety (units unknown) (unknown) (unknown) (no date) (unknown) (unknown) Segment Action Right Left (units unknown) (unknown) (unknown) (no date) (unknown) (unknown) Segment Reflex Right Left (units unknown) (unknown) (unknown) (no date) (unknown) (unknown) Sensory -? Int act to light touch of bilateral lower extremities. Allodynia (units unknown) (unknown) (unknown) (no date) (unknown) (unknown) Signed By: (units unknown) (unknown) (unknown) (no date) (unknown) (unknown) Skin: No appre ciable rashes or skin breakdown (units unknown) (unknown) (unknown) (no date) (unknown) (unknown) Smoking Status : Former smoker (units unknown) (unknown) (unknown) (no date) (unknown) (unknown) Social History (unit s unknown) (unknown) (unknown) (no date) (unknown) (unknown) Son Hearing loss (un its unknown) (unknown) (unknown) (no date) (unknown) (unknown) Standing: (units unknown) (unknown) (unknown) (no date) (unknown) (unknown) Surgery: Patie nt is s/p (units unknown) (unknown) (unknown) (no date) (unknown) (unknown) Surgical Histo ry (Updated 07/12/22 @ 15:10 by Josefina Baumann MD) (units unknown) (unknown) (unknown) (no date) (unknown) (unknown) Temp 97.6 F (units unknown) (unknown) (unknown) (no date) (unknown) (unknown) Temp Source Te mporal Artery Scan (units unknown) (unknown) (unknown) (no date) (unknown) (unknown) [facility] (units unknown) (unknown) (unknown) (no date) (unknown) (unknown) This note may have been all or partially generated using voice recognition (units unknown) (unknown) (unknown) (no date) (unknown) (unknown) Tobacco + Subs tance Use (units unknown) (unknown) (unknown) (no date) (unknown) (unknown) Tobacco Status (unit s unknown) (unknown) (unknown) (no date) (unknown) (unknown) Today I have r eviewed available medical information in the patient's medical (units unknown) (unknown) (unknown) (no date) (unknown) (unknown) Type(s) of exe rcise: walking (units unknown) (unknown) (unknown) (no date) (unknown) (unknown) Upper Motor Ne uron Signs: (units unknown) (unknown) (unknown) (no date) (unknown) (unknown) 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 (units unknown) (unknown) (unknown) (no date) (unknown) (unknown) We reviewed et iology, predisposing factor(s), natural course, imaging results as (units unknown) (unknown) (unknown) (no date) (unknown) (unknown) Weakness: denies (un its unknown) (unknown) (unknown) (no date) (unknown) (unknown) Weight 271 lb 8 oz ( units unknown) (unknown) (unknown) (no date) (unknown) (unknown) Roy teeth extract ed (units unknown) (unknown) (unknown) (no date) (unknown) (unknown) additional soc ial history: Difficulty other children. Would (units unknown) (unknown) (unknown) (no date) (unknown) (unknown) alcohol intake: form er (units unknown) (unknown) (unknown) (no date) (unknown) (unknown) and chronic lo w back pain who presents for further evaluation of low back pain. (units unknown) (unknown) (unknown) (no date) (unknown) (unknown) benefits of va rious treatment options were discussed with the patient in great (units unknown) (unknown) (unknown) (no date) (unknown) (unknown) bowel/bladder dysfunction, and perineal numbness were discussed. The patient was (units unknown) (unknown) (unknown) (no date) (unknown) (unknown) caffeine: Yes (soft drinks in small quantities, well within 200mg limit) (units unknown) (unknown) (unknown) (no date) (unknown) (unknown) cannot tolerat e physical therapy at the current time due to the intensity of the (units unknown) (unknown) (unknown) (no date) (unknown) (unknown) carbon monox d etector in home: Yes (units unknown) (unknown) (unknown) (no date) (unknown) (unknown) current occupa tional exposures/hazards: Yes (units unknown) (unknown) (unknown) (no date) (unknown) (unknown) daily servings fruits/ve or more times/day (units unknown) (unknown) (unknown) (no date) (unknown) (unknown) delivery. (units unknown) (unknown) (unknown) (no date) (unknown) (unknown) detail. (units unknown) (unknown) (unknown) (no date) (unknown) (unknown) disc protrusio n without canal stenosis at C5-6. (units unknown) (unknown) (unknown) (no date) (unknown) (unknown) do you feel sa fe at home: Yes (units unknown) (unknown) (unknown) (no date) (unknown) (unknown) double electri c breast pump 1 ea topical .prn #1 ea 11/01/22 [Rx Confirmed (units unknown) (unknown) (unknown) (no date) (unknown) (unknown) during the pas t year weight has: other (wide fluctuations since last ) (units unknown) (unknown) (unknown) (no date) (unknown) (unknown) education leve l: vocational (some college, certificate programs) (units unknown) (unknown) (unknown) (no date) (unknown) (unknown) fire extinguis her in home: Yes (units unknown) (unknown) (unknown) (no date) (unknown) (unknown) firearms in ho me: Yes firearms unloaded and locked: Yes (units unknown) (unknown) (unknown) (no date) (unknown) (unknown) flaxseed Aller gy (Severe, Verified 02/07/23 08:41) (units unknown) (unknown) (unknown) (no date) (unknown) (unknown) foraminal sten osis and a mild right paracentral disc protrusion at L5-S1 without (units unknown) (unknown) (unknown) (no date) (unknown) (unknown) grade breast p ump that she can have when she goes home from hospital after (units unknown) (unknown) (unknown) (no date) (unknown) (unknown) have occurred. If there are any questions, please contact the Medical Records (units unknown) (unknown) (unknown) (no date) (unknown) (unknown) household memb ers: spouse, family ([id number] and his 3 children (moving out (units unknown) (unknown) (unknown) (no date) (unknown) (unknown) housing: house (unit s unknown) (unknown) (unknown) (no date) (unknown) (unknown) improved sleep , improved mobility, etc. (units unknown) (unknown) (unknown) (no date) (unknown) (unknown) in PT. [] (units unknown) (unknown) (unknown) (no date) (unknown) (unknown) instructed to report to the Emergency department, if these symptoms occur. (units unknown) (unknown) (unknown) (no date) (unknown) (unknown) instructed to stop if any side effects. [] (units unknown) (unknown) (unknown) (no date) (unknown) (unknown) intravenous dr ug use, sustained glucocorticoid use, osteoporosis, or a focal (units unknown) (unknown) (unknown) (no date) (unknown) (unknown) levothyroxine 137 mcg tablet 137 mcg PO DAILY #30 tabs 10/17/22 [Rx Confirmed (units unknown) (unknown) (unknown) (no date) (unknown) (unknown) lives independ ently: Yes (units unknown) (unknown) (unknown) (no date) (unknown) (unknown) local anesthet ic. During that time patient able to participate in ADLs, had (units unknown) (unknown) (unknown) (no date) (unknown) (unknown) low back pain and headaches and the symptoms were felt to be likely related to a (units unknown) (unknown) (unknown) (no date) (unknown) (unknown) lumbar spine s howed multilevel facet hypertrophy, no central canal stenosis or (units unknown) (unknown) (unknown) (no date) (unknown) (unknown) marital status : (units unknown) (unknown) (unknown) (no date) (unknown) (unknown) may occur. Occ asional wrong-word or 'sound-alike' substitutions may have (units unknown) (unknown) (unknown) (no date) (unknown) (unknown) meds. [] (units unknown) (unknown) (unknown) (no date) (unknown) (unknown) negative, Hype ralgesia - negative (units unknown) (unknown) (unknown) (no date) (unknown) (unknown) nerve root impingement. Thoracic spine MRI was grossly unremarkable. Cervical (units unknown) (unknown) (unknown) (no date) (unknown) (unknown) neurological d eficit with progressive or disabling symptoms. (units unknown) (unknown) (unknown) (no date) (unknown) (unknown) number of children: 3 (units unknown) (unknown) (unknown) (no date) (unknown) (unknown) occupational s tatus: unemployed and previously employed (units unknown) (unknown) (unknown) (no date) (unknown) (unknown) occurred due t o the inherent limitations of voice recognition software. Please (units unknown) (unknown) (unknown) (no date) (unknown) (unknown) of Spinal Cord Injur y) (units unknown) (unknown) (unknown) (no date) (unknown) (unknown) or immunosuppr essive therapy, previous or current cancer diagnosis, history of (units unknown) (unknown) (unknown) (no date) (unknown) (unknown) pain. [] (units unknown) (unknown) (unknown) (no date) (unknown) (unknown) patches and a prednisone taper. She was referred to Neurology on 12/29/2022 for (units unknown) (unknown) (unknown) (no date) (unknown) (unknown) pets and anima ls: Yes (horses) (units unknown) (unknown) (unknown) (no date) (unknown) (unknown) post epidural blood patch. She was referred to physical therapy. MRI of the (units unknown) (unknown) (unknown) (no date) (unknown) (unknown) prenat.vits,ca l,min-ir on-folic 1 tab PO DAILY 04/22/22 [History Confirmed (units unknown) (unknown) (unknown) (no date) (unknown) (unknown) read the note carefully and recognize, using context, where these substitutions (units unknown) (unknown) (unknown) (no date) (unknown) (unknown) really like to meet w/ [facility] prior to delivery and would like Rx for hospital (units unknown) (unknown) (unknown) (no date) (unknown) (unknown) record, includ ing relevant provider notes, laboratory work, and imaging. (units unknown) (unknown) (unknown) (no date) (unknown) (unknown) scale and/or p ain interferes with ADLs. (units unknown) (unknown) (unknown) (no date) (unknown) (unknown) seatbelt use: always (units unknown) (unknown) (unknown) (no date) (unknown) (unknown) second hand ex posure: No (units unknown) (unknown) (unknown) (no date) (unknown) (unknown) software. Alth ough every effort is made to edit content, bookbinder chief errors (units unknown) (unknown) (unknown) (no date) (unknown) (unknown) soon)) and children (units unknown) (unknown) (unknown) (no date) (unknown) (unknown) special roland needs: No (units unknown) (unknown) (unknown) (no date) (unknown) (unknown) spinal headach e secondary to spinal anesthesia for . She is status (units unknown) (unknown) (unknown) (no date) (unknown) (unknown) spine MRI show ed right paracentral annulus tear plus minimal right paracentral (units unknown) (unknown) (unknown) (no date) (unknown) (unknown) substance use type: marijuana (in the past, not recently and not while ) (units unknown) (unknown) (unknown) (no date) (unknown) (unknown) therapeutic in jections and surgery. The risks, consequences, alternatives and (units unknown) (unknown) (unknown) (no date) (unknown) (unknown) therapy. ?A re ferral was provided for the patient. [] (units unknown) (unknown) (unknown) (no date) (unknown) (unknown) water heater t emp set < 120 deg: Yes (units unknown) (unknown) (unknown) (no date) (unknown) (unknown) well as treatm ent options including medications, physical therapy/exercise, (units unknown) (unknown) (unknown) (no date) (unknown) (unknown) well-balanced diet: daily or most days (units unknown) (unknown) (unknown) (no date) (unknown) (unknown) with future tr eatment planning. [] (units unknown) (unknown) (unknown) (no date) (unknown) (unknown) without eviden ce of ataxia. Lower quarter stability intact.] (units unknown) (unknown) (unknown) (no date) (unknown) (unknown) working smoke detector in home: Yes (units unknown) (unknown) Result panel 5 (unknown) (no date) (unknown) (unknown) (no value) (units unknown) (unknown) (unknown) (no date) (unknown) (unknown) (0=absent, 1=s light response, 2=brisk/normal, 3=very brisk, 4=clonus) (units unknown) (unknown) (unknown) (no date) (unknown) (unknown) (segments are from the International Standards for Neurological Classification (units unknown) (unknown) (unknown) (no date) (unknown) (unknown) - Activity: Co ntinue activity as tolerated. [] (units unknown) (unknown) (unknown) (no date) (unknown) (unknown) - Chiropractor , acupuncture[] (units unknown) (unknown) (unknown) (no date) (unknown) (unknown) - Continues cl inician directed home exercise program including exercises learned (units unknown) (unknown) (unknown) (no date) (unknown) (unknown) - Education: C auda equina and associated symptoms, including motor weakness, (units unknown) (unknown) (unknown) (no date) (unknown) (unknown) - FADIR: [(-/+ ) on the R side / L side / bilaterally] (units unknown) (unknown) (unknown) (no date) (unknown) (unknown) - Follow-up: [] (uni ts unknown) (unknown) (unknown) (no date) (unknown) (unknown) - Hip ROM is: [WNL / limited and painful on the R sided / L side / bilaterally] (units unknown) (unknown) (unknown) (no date) (unknown) (unknown) - I discussed risks, benefits and side effects. Additionally, patient was (units unknown) (unknown) (unknown) (no date) (unknown) (unknown) - Imaging: No new imaging indicated at this time. [] (units unknown) (unknown) (unknown) (no date) (unknown) (unknown) - Interventional/Surgica l procedures: None indicated at this time. [] (units unknown) (unknown) (unknown) (no date) (unknown) (unknown) - Lumbar facet loading: [(-/+) on the R side / L side / bilaterally] (units unknown) (unknown) (unknown) (no date) (unknown) (unknown) - Medications: No new prescription at this time. Patient will continue current (units unknown) (unknown) (unknown) (no date) (unknown) (unknown) - Medications: acetaminophen, NSAIDS, neuropathics, muscle relaxants [] (units unknown) (unknown) (unknown) (no date) (unknown) (unknown) - Physical The rapy: Completed 6 week course in the last 6 months OR Patient (units unknown) (unknown) (unknown) (no date) (unknown) (unknown) - Physical therapy/modalities/DME : Patient will likely benefit from physical (units unknown) (unknown) (unknown) (no date) (unknown) (unknown) - Prescription provided and uptitration instructions given if necessary. [] (units unknown) (unknown) (unknown) (no date) (unknown) (unknown) - Previous [] on [] provided []% relief of pain for the expected duration of the (units unknown) (unknown) (unknown) (no date) (unknown) (unknown) - Referrals: N one indicated at this time. [] (units unknown) (unknown) (unknown) (no date) (unknown) (unknown) - SIJ provocat ion testing: [ (+/-) George's finger test, posterior thrust, (units unknown) (unknown) (unknown) (no date) (unknown) (unknown) - Straight Leg Raise: [(-/+) on the L side / R side / bilaterally] (units unknown) (unknown) (unknown) (no date) (unknown) (unknown) 01/14/2023. Nicola hu presented to the emergency department and was given lidocaine (units unknown) (unknown) (unknown) (no date) (unknown) (unknown) 02/07/23 (units unknown) (unknown) (unknown) (no date) (unknown) (unknown) 02/07/23] (units unknown) (unknown) (unknown) (no date) (unknown) (unknown) 09:29 (units unknown) (unknown) (unknown) (no date) (unknown) (unknown) : [id number] (units unknown) (unknown) (unknown) (no date) (unknown) (unknown) ? Inspection - ? No gross appendicular or axial deformities (units unknown) (unknown) (unknown) (no date) (unknown) (unknown) ? Palpation -? [Tender to palpation of / No tenderness to palpation] (units unknown) (unknown) (unknown) (no date) (unknown) (unknown) ? ROM - [Lumba r flexion/ extension/ lateral rotation is limited due to pain / (units unknown) (unknown) (unknown) (no date) (unknown) (unknown) ? Special tests (uni ts unknown) (unknown) (unknown) (no date) (unknown) (unknown) ? Acetaminophen - doesn't help (units unknown) (unknown) (unknown) (no date) (unknown) (unknown) ? Antidepressants - celexa - no longer taking (units unknown) (unknown) (unknown) (no date) (unknown) (unknown) ? Antiepileptics - denies (units unknown) (unknown) (unknown) (no date) (unknown) (unknown) ? Mu scle Relaxants - denies (units unknown) (unknown) (unknown) (no date) (unknown) (unknown) ? NS AIDs - naproxen, ibuprofen (units unknown) (unknown) (unknown) (no date) (unknown) (unknown) ? Op ioids - Hydrocodone-acetaminop hen 5-325 mg 1 tab q.6 hours as (units unknown) (unknown) (unknown) (no date) (unknown) (unknown) ? St eroids - denies (units unknown) (unknown) (unknown) (no date) (unknown) (unknown) ? To picals - lidoderm (units unknown) (unknown) (unknown) (no date) (unknown) (unknown) ADHD (units unknown) (unknown) (unknown) (no date) (unknown) (unknown) Accompanied by : Self / Same As Patient (units unknown) (unknown) (unknown) (no date) (unknown) (unknown) Additional Soc ial History (units unknown) (unknown) (unknown) (no date) (unknown) (unknown) Age/Sex: 32 / F Date of Service: (units unknown) (unknown) (unknown) (no date) (unknown) (unknown) Aggravating fa ctors include: sitting, chores that require bending (units unknown) (unknown) (unknown) (no date) (unknown) (unknown) Alcoholism (units unknown) (unknown) (unknown) (no date) (unknown) (unknown) All other syst ems reviewed and are unremarkable except as noted in HPI. (units unknown) (unknown) (unknown) (no date) (unknown) (unknown) Allergies (units unknown) (unknown) (unknown) (no date) (unknown) (unknown) [place] [address] (units unknown) (unknown) (unknown) (no date) (unknown) (unknown) Anaphylaxis (units unknown) (unknown) (unknown) (no date) (unknown) (unknown) Anesthesia (units unknown) (unknown) (unknown) (no date) (unknown) (unknown) Assessment + Plan (u nits unknown) (unknown) (unknown) (no date) (unknown) (unknown) Assessment: (units unknown) (unknown) (unknown) (no date) (unknown) (unknown) Attending Dr: Celio Tejada MD (units unknown) (unknown) (unknown) (no date) (unknown) (unknown) BMI 45.1 (units unknown) (unknown) (unknown) (no date) (unknown) (unknown) BP 115/70 (units unknown) (unknown) (unknown) (no date) (unknown) (unknown) Babinski's Abby ngoing Downgoing (units unknown) (unknown) (unknown) (no date) (unknown) (unknown) Blood Pressure Location Rt brachial (units unknown) (unknown) (unknown) (no date) (unknown) (unknown) Bowel and blad yan: No loss of control (units unknown) (unknown) (unknown) (no date) (unknown) (unknown) Cardiovascular : No edema or cyanosis. 2+ peripheral pulses (units unknown) (unknown) (unknown) (no date) (unknown) (unknown) Carpal tunnel syndrome (-2018) (units unknown) (unknown) (unknown) (no date) (unknown) (unknown) Chart review: (units unknown) (unknown) (unknown) (no date) (unknown) (unknown) Chief Complaint (uni ts unknown) (unknown) (unknown) (no date) (unknown) (unknown) Chief Complain t: Low back pain (units unknown) (unknown) (unknown) (no date) (unknown) (unknown) Clonus None None (un its unknown) (unknown) (unknown) (no date) (unknown) (unknown) Conservative management includes: (units unknown) (unknown) (unknown) (no date) (unknown) (unknown) Consult to [facility] low back pain s/p 11/2022 (units unknown) (unknown) (unknown) (no date) (unknown) (unknown) Continue [facility] physical therapy. [] (units unknown) (unknown) (unknown) (no date) (unknown) (unknown) Continue home exercise program. 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 (units unknown) (unknown) (unknown) (no date) (unknown) (unknown) Details: (units unknown) (unknown) (unknown) (no date) (unknown) (unknown) Diet and Exercise (u nits unknown) (unknown) (unknown) (no date) (unknown) (unknown) Documented By: Celio Tejada MD 02/02/23 1412 (units unknown) (unknown) (unknown) (no date) (unknown) (unknown) Draft (units unknown) (unknown) (unknown) (no date) (unknown) (unknown) Exam Narrative (unit s unknown) (unknown) (unknown) (no date) (unknown) (unknown) Exam Narrative: (uni ts unknown) (unknown) (unknown) (no date) (unknown) (unknown) Exam (units unknown) (unknown) (unknown) (no date) (unknown) (unknown) JOSH, [place]ens[place] n's, Pelvic rocking on the R/L side / bilaterally] (units unknown) (unknown) (unknown) (no date) (unknown) (unknown) Family History (Updated 06/08/22 @ 21:23 by Aurora Arevalo) (units unknown) (unknown) (unknown) (no date) (unknown) (unknown) Father Diabete s mellitus (units unknown) (unknown) (unknown) (no date) (unknown) (unknown) Foot pain () (u nits unknown) (unknown) (unknown) (no date) (unknown) (unknown) Gait/Station - [Non-antalgic gait. Heel/toe walking intact. Tandem gait normal (units unknown) (unknown) (unknown) (no date) (unknown) (unknown) General: Well-nourished, well-developed, [sex] in no acute distress (units unknown) (unknown) (unknown) (no date) (unknown) (unknown) HPI (units unknown) (unknown) (unknown) (no date) (unknown) (unknown) Heavy menstrua l period () (units unknown) (unknown) (unknown) (no date) (unknown) (unknown) Height 5 ft 5 in (un its unknown) (unknown) (unknown) (no date) (unknown) (unknown) History of polyhydramnios (units unknown) (unknown) (unknown) (no date) (unknown) (unknown) History of surgery ( units unknown) (unknown) (unknown) (no date) (unknown) (unknown) Intake Clinical Staf f (units unknown) (unknown) (unknown) (no date) (unknown) (unknown) Intake Note: (units unknown) (unknown) (unknown) (no date) (unknown) (unknown) Intake perform ed by: Shell Portillo (units unknown) (unknown) (unknown) (no date) (unknown) (unknown) Intake (units unknown) (unknown) (unknown) (no date) (unknown) (unknown) Intervention: Date: Outcome: (units unknown) (unknown) (unknown) (no date) (unknown) (unknown) Is patient in pain?: Yes Pain scale (1-10): 5 (units unknown) (unknown) (unknown) (no date) (unknown) (unknown) JUSTIFICATION OF MEDICAL NECESSITY (units unknown) (unknown) (unknown) (no date) (unknown) (unknown) L-spine/T-spin e/C-spin e MRI ordered to better delineate the anatomy and help (units unknown) (unknown) (unknown) (no date) (unknown) (unknown) L2 Hip Flexion 5/5 5/5? (units unknown) (unknown) (unknown) (no date) (unknown) (unknown) L3 Knee Extens ion 5/5 5/5 (units unknown) (unknown) (unknown) (no date) (unknown) (unknown) L3-4 Patella 2+ 2 (u nits unknown) (unknown) (unknown) (no date) (unknown) (unknown) L4 Ankle Dorsi flexion 5/5 5/5 (units unknown) (unknown) (unknown) (no date) (unknown) (unknown) L5 Long Toe Ex tension 5/5 5/5 (units unknown) (unknown) (unknown) (no date) (unknown) (unknown) Hardy has a his tory of chronic low back pain with an acute exacerbation on (units unknown) (unknown) (unknown) (no date) (unknown) (unknown) Hardy is a 32-y ear-old female with a history of ASD, depression, ADHD, obesity (units unknown) (unknown) (unknown) (no date) (unknown) (unknown) Lidocaine patch 5% P RN (units unknown) (unknown) (unknown) (no date) (unknown) (unknown) Loc: [facility] (units unknown) (unknown) (unknown) (no date) (unknown) (unknown) MSK: System re viewed and no additional complaints, except as documented. (units unknown) (unknown) (unknown) (no date) (unknown) (unknown) Medical Histor y (Updated 11/15/22 @ 11:51 by Glen Ojeda MD) (units unknown) (unknown) (unknown) (no date) (unknown) (unknown) Medications (units unknown) (unknown) (unknown) (no date) (unknown) (unknown) Medications: (units unknown) (unknown) (unknown) (no date) (unknown) (unknown) Mental health proble m (units unknown) (unknown) (unknown) (no date) (unknown) (unknown) Mother Depression (u nits unknown) (unknown) (unknown) (no date) (unknown) (unknown) Motor (units unknown) (unknown) (unknown) (no date) (unknown) (unknown) Musculoskeletal: (un its unknown) (unknown) (unknown) (no date) (unknown) (unknown) Nearsightedness (uni ts unknown) (unknown) (unknown) (no date) (unknown) (unknown) Neuro: System reviewed and no additional complaints, except as documented. (units unknown) (unknown) (unknown) (no date) (unknown) (unknown) Neurologic: (units unknown) (unknown) (unknown) (no date) (unknown) (unknown) Not indicated at this time. [] (units unknown) (unknown) (unknown) (no date) (unknown) (unknown) Numbness/Tingl ing: occasional tingling of the posterior left thigh (units unknown) (unknown) (unknown) (no date) (unknown) (unknown) Onset/Context of linh n: (units unknown) (unknown) (unknown) (no date) (unknown) (unknown) Onset: chronic , worsened after EBP (units unknown) (unknown) (unknown) (no date) (unknown) (unknown) Other: denies (units unknown) (unknown) (unknown) (no date) (unknown) (unknown) Oxygen Deliver y Method room air (units unknown) (unknown) (unknown) (no date) (unknown) (unknown) PFSH (units unknown) (unknown) (unknown) (no date) (unknown) (unknown) PT: PT schedul ed out for March 2023 at [facility] (units unknown) (unknown) (unknown) (no date) (unknown) (unknown) PTSD (post-tra umatic stress disorder) (-1999) (units unknown) (unknown) (unknown) (no date) (unknown) (unknown) Pain Scale (units unknown) (unknown) (unknown) (no date) (unknown) (unknown) Pain Visit (units unknown) (unknown) (unknown) (no date) (unknown) (unknown) Pain location/Radiation: Across the low back, denies radiation (units unknown) (unknown) (unknown) (no date) (unknown) (unknown) Pain ratin /10 today, 9/10 at worst (units unknown) (unknown) (unknown) (no date) (unknown) (unknown) Painful menstr ual periods (-2020) (units unknown) (unknown) (unknown) (no date) (unknown) (unknown) Patient will r eturn for []. Risks and benefits were discussed. (units unknown) (unknown) (unknown) (no date) (unknown) (unknown) Patient's pain has been present for >6 weeks and is an average of >6/10 on 0-10 (units unknown) (unknown) (unknown) (no date) (unknown) (unknown) Patient: Hardy Cruz MR# (units unknown) (unknown) (unknown) (no date) (unknown) (unknown) Plan (units unknown) (unknown) (unknown) (no date) (unknown) (unknown) Plan/Recommendations : (units unknown) (unknown) (unknown) (no date) (unknown) (unknown) Planned C-sect ion. History herniated disc and chronic back pain. (units unknown) (unknown) (unknown) (no date) (unknown) (unknown) Polyhydramnios (unit s unknown) (unknown) (unknown) (no date) (unknown) (unknown) Position Sitting (un its unknown) (unknown) (unknown) (no date) (unknown) (unknown) depressio n (units unknown) (unknown) (unknown) (no date) (unknown) (unknown) Prescriptions Written: [] (units unknown) (unknown) (unknown) (no date) (unknown) (unknown) Previous gladys joseph section (units unknown) (unknown) (unknown) (no date) (unknown) (unknown) Previous pain treatments included: (units unknown) (unknown) (unknown) (no date) (unknown) (unknown) Psych: Appropr iate affect, answers questions appropriately (units unknown) (unknown) (unknown) (no date) (unknown) (unknown) Pulse 84 (units unknown) (unknown) (unknown) (no date) (unknown) (unknown) Pulse Oximetry (%) 9 8 (units unknown) (unknown) (unknown) (no date) (unknown) (unknown) Pulse Source Monitor (units unknown) (unknown) (unknown) (no date) (unknown) (unknown) Quality and ti carly of pain: constant, deep, dull (units unknown) (unknown) (unknown) (no date) (unknown) (unknown) ROS Narrative (units unknown) (unknown) (unknown) (no date) (unknown) (unknown) ROS Narrative: (unit s unknown) (unknown) (unknown) (no date) (unknown) (unknown) ROS (units unknown) (unknown) (unknown) (no date) (unknown) (unknown) Reason For Visit (un its unknown) (unknown) (unknown) (no date) (unknown) (unknown) Red flag symptoms: ( units unknown) (unknown) (unknown) (no date) (unknown) (unknown) Reflex Right Left (u nits unknown) (unknown) (unknown) (no date) (unknown) (unknown) Reflexes: (units unknown) (unknown) (unknown) (no date) (unknown) (unknown) Relieving fact ors include: lying down (units unknown) (unknown) (unknown) (no date) (unknown) (unknown) Respiratory: Non-labored breathing pattern on RA. No respiratory distress (units unknown) (unknown) (unknown) (no date) (unknown) (unknown) Restless leg syndrom e (units unknown) (unknown) (unknown) (no date) (unknown) (unknown) S1 Ankle Plantarflexion 5/5 5/5 (units unknown) (unknown) (unknown) (no date) (unknown) (unknown) S1-2 Achilles 2+ 2 ( units unknown) (unknown) (unknown) (no date) (unknown) (unknown) Saddle anesthe carlos: denies (units unknown) (unknown) (unknown) (no date) (unknown) (unknown) Safety (units unknown) (unknown) (unknown) (no date) (unknown) (unknown) Segment Action Right Left (units unknown) (unknown) (unknown) (no date) (unknown) (unknown) Segment Reflex Right Left (units unknown) (unknown) (unknown) (no date) (unknown) (unknown) Sensory -? Int act to light touch of bilateral lower extremities. Allodynia (units unknown) (unknown) (unknown) (no date) (unknown) (unknown) Signed By: (units unknown) (unknown) (unknown) (no date) (unknown) (unknown) Skin: No appre ciable rashes or skin breakdown (units unknown) (unknown) (unknown) (no date) (unknown) (unknown) Smoking Status : Former smoker (units unknown) (unknown) (unknown) (no date) (unknown) (unknown) Social History (unit s unknown) (unknown) (unknown) (no date) (unknown) (unknown) Son Hearing loss (un its unknown) (unknown) (unknown) (no date) (unknown) (unknown) Standing: limi hanny due to pain (units unknown) (unknown) (unknown) (no date) (unknown) (unknown) Surgery: denies (uni ts unknown) (unknown) (unknown) (no date) (unknown) (unknown) Surgical Histo ry (Updated 07/12/22 @ 15:10 by Josefina Baumann MD) (units unknown) (unknown) (unknown) (no date) (unknown) (unknown) Temp 97.6 F (units unknown) (unknown) (unknown) (no date) (unknown) (unknown) Temp Source Te mporal Artery Scan (units unknown) (unknown) (unknown) (no date) (unknown) (unknown) [facility] (units unknown) (unknown) (unknown) (no date) (unknown) (unknown) This note may have been all or partially generated using voice recognition (units unknown) (unknown) (unknown) (no date) (unknown) (unknown) Tobacco + Subs tance Use (units unknown) (unknown) (unknown) (no date) (unknown) (unknown) Tobacco Status (unit s unknown) (unknown) (unknown) (no date) (unknown) (unknown) Today I have r eviewed available medical information in the patient's medical (units unknown) (unknown) (unknown) (no date) (unknown) (unknown) Type(s) of exe rcise: walking (units unknown) (unknown) (unknown) (no date) (unknown) (unknown) Upper Motor Ne uron Signs: (units unknown) (unknown) (unknown) (no date) (unknown) (unknown) 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 (units unknown) (unknown) (unknown) (no date) (unknown) (unknown) We reviewed et iology, predisposing factor(s), natural course, imaging results as (units unknown) (unknown) (unknown) (no date) (unknown) (unknown) Weakness: denies (un its unknown) (unknown) (unknown) (no date) (unknown) (unknown) Weight 271 lb 8 oz ( units unknown) (unknown) (unknown) (no date) (unknown) (unknown) Roy teeth extract ed (units unknown) (unknown) (unknown) (no date) (unknown) (unknown) additional soc ial history: Difficulty other children. Would (units unknown) (unknown) (unknown) (no date) (unknown) (unknown) alcohol intake: form er (units unknown) (unknown) (unknown) (no date) (unknown) (unknown) and chronic lo w back pain who presents for further evaluation of low back pain. (units unknown) (unknown) (unknown) (no date) (unknown) (unknown) benefits of va rious treatment options were discussed with the patient in great (units unknown) (unknown) (unknown) (no date) (unknown) (unknown) bowel/bladder dysfunction, and perineal numbness were discussed. The patient was (units unknown) (unknown) (unknown) (no date) (unknown) (unknown) caffeine: Yes (soft drinks in small quantities, well within 200mg limit) (units unknown) (unknown) (unknown) (no date) (unknown) (unknown) cannot tolerat e physical therapy at the current time due to the intensity of the (units unknown) (unknown) (unknown) (no date) (unknown) (unknown) carbon monox d etector in home: Yes (units unknown) (unknown) (unknown) (no date) (unknown) (unknown) current occupa tional exposures/hazards: Yes (units unknown) (unknown) (unknown) (no date) (unknown) (unknown) daily servings fruits/ve or more times/day (units unknown) (unknown) (unknown) (no date) (unknown) (unknown) delivery. (units unknown) (unknown) (unknown) (no date) (unknown) (unknown) detail. (units unknown) (unknown) (unknown) (no date) (unknown) (unknown) disc protrusio n without canal stenosis at C5-6. (units unknown) (unknown) (unknown) (no date) (unknown) (unknown) do you feel sa fe at home: Yes (units unknown) (unknown) (unknown) (no date) (unknown) (unknown) double electri c breast pump 1 ea topical .prn #1 ea 11/01/22 [Rx Confirmed (units unknown) (unknown) (unknown) (no date) (unknown) (unknown) during the pas t year weight has: other (wide fluctuations since last ) (units unknown) (unknown) (unknown) (no date) (unknown) (unknown) education leve l: vocational (some college, certificate programs) (units unknown) (unknown) (unknown) (no date) (unknown) (unknown) fire extinguis her in home: Yes (units unknown) (unknown) (unknown) (no date) (unknown) (unknown) firearms in ho me: Yes firearms unloaded and locked: Yes (units unknown) (unknown) (unknown) (no date) (unknown) (unknown) flaxseed Aller gy (Severe, Verified 02/07/23 08:41) (units unknown) (unknown) (unknown) (no date) (unknown) (unknown) foraminal sten osis and a mild right paracentral disc protrusion at L5-S1 without (units unknown) (unknown) (unknown) (no date) (unknown) (unknown) grade breast p ump that she can have when she goes home from hospital after (units unknown) (unknown) (unknown) (no date) (unknown) (unknown) have occurred. If there are any questions, please contact the Medical Records (units unknown) (unknown) (unknown) (no date) (unknown) (unknown) household memb ers: spouse, family ([id number] and his 3 children (moving out (units unknown) (unknown) (unknown) (no date) (unknown) (unknown) housing: house (unit s unknown) (unknown) (unknown) (no date) (unknown) (unknown) improved sleep , improved mobility, etc. (units unknown) (unknown) (unknown) (no date) (unknown) (unknown) in PT. [] (units unknown) (unknown) (unknown) (no date) (unknown) (unknown) instructed to report to the Emergency department, if these symptoms occur. (units unknown) (unknown) (unknown) (no date) (unknown) (unknown) instructed to stop if any side effects. [] (units unknown) (unknown) (unknown) (no date) (unknown) (unknown) intravenous dr ug use, sustained glucocorticoid use, osteoporosis, or a focal (units unknown) (unknown) (unknown) (no date) (unknown) (unknown) levothyroxine 137 mcg tablet 137 mcg PO DAILY #30 tabs 10/17/22 [Rx Confirmed (units unknown) (unknown) (unknown) (no date) (unknown) (unknown) lives independ ently: Yes (units unknown) (unknown) (unknown) (no date) (unknown) (unknown) local anesthet ic. During that time patient able to participate in ADLs, had (units unknown) (unknown) (unknown) (no date) (unknown) (unknown) low back pain and headaches and the symptoms were felt to be likely related to a (units unknown) (unknown) (unknown) (no date) (unknown) (unknown) lumbar spine s howed multilevel facet hypertrophy, no central canal stenosis or (units unknown) (unknown) (unknown) (no date) (unknown) (unknown) marital status : (units unknown) (unknown) (unknown) (no date) (unknown) (unknown) may occur. Occ asional wrong-word or 'sound-alike' substitutions may have (units unknown) (unknown) (unknown) (no date) (unknown) (unknown) meds. [] (units unknown) (unknown) (unknown) (no date) (unknown) (unknown) needed - given by recent ED visit (units unknown) (unknown) (unknown) (no date) (unknown) (unknown) negative, Hype ralgesia - negative (units unknown) (unknown) (unknown) (no date) (unknown) (unknown) nerve root impingement. Thoracic spine MRI was grossly unremarkable. Cervical (units unknown) (unknown) (unknown) (no date) (unknown) (unknown) neurological d eficit with progressive or disabling symptoms. (units unknown) (unknown) (unknown) (no date) (unknown) (unknown) number of children: 3 (units unknown) (unknown) (unknown) (no date) (unknown) (unknown) occupational s tatus: unemployed and previously employed (units unknown) (unknown) (unknown) (no date) (unknown) (unknown) occurred due t o the inherent limitations of voice recognition software. Please (units unknown) (unknown) (unknown) (no date) (unknown) (unknown) of Spinal Cord Injur y) (units unknown) (unknown) (unknown) (no date) (unknown) (unknown) or immunosuppr essive therapy, previous or current cancer diagnosis, history of (units unknown) (unknown) (unknown) (no date) (unknown) (unknown) pain. [] (units unknown) (unknown) (unknown) (no date) (unknown) (unknown) patches and a prednisone taper. She was referred to Neurology on 12/29/2022 for (units unknown) (unknown) (unknown) (no date) (unknown) (unknown) pets and anima ls: Yes (horses) (units unknown) (unknown) (unknown) (no date) (unknown) (unknown) post epidural blood patch. She was referred to physical therapy. MRI of the (units unknown) (unknown) (unknown) (no date) (unknown) (unknown) prenat.vits,ca l,min-ir on-folic 1 tab PO DAILY 04/22/22 [History Confirmed (units unknown) (unknown) (unknown) (no date) (unknown) (unknown) read the note carefully and recognize, using context, where these substitutions (units unknown) (unknown) (unknown) (no date) (unknown) (unknown) really like to meet w/ [facility] prior to delivery and would like Rx for hospital (units unknown) (unknown) (unknown) (no date) (unknown) (unknown) record, includ ing relevant provider notes, laboratory work, and imaging. (units unknown) (unknown) (unknown) (no date) (unknown) (unknown) scale and/or p ain interferes with ADLs. (units unknown) (unknown) (unknown) (no date) (unknown) (unknown) seatbelt use: always (units unknown) (unknown) (unknown) (no date) (unknown) (unknown) second hand ex posure: No (units unknown) (unknown) (unknown) (no date) (unknown) (unknown) software. Alth ough every effort is made to edit content, bookbinder chief errors (units unknown) (unknown) (unknown) (no date) (unknown) (unknown) soon)) and children (units unknown) (unknown) (unknown) (no date) (unknown) (unknown) special roland needs: No (units unknown) (unknown) (unknown) (no date) (unknown) (unknown) spinal headach e secondary to spinal anesthesia for . She is status (units unknown) (unknown) (unknown) (no date) (unknown) (unknown) spine MRI show ed right paracentral annulus tear plus minimal right paracentral (units unknown) (unknown) (unknown) (no date) (unknown) (unknown) substance use type: marijuana (in the past, not recently and not while ) (units unknown) (unknown) (unknown) (no date) (unknown) (unknown) therapeutic in jections and surgery. The risks, consequences, alternatives and (units unknown) (unknown) (unknown) (no date) (unknown) (unknown) therapy. ?A re ferral was provided for the patient. [] (units unknown) (unknown) (unknown) (no date) (unknown) (unknown) water heater t emp set < 120 deg: Yes (units unknown) (unknown) (unknown) (no date) (unknown) (unknown) well as treatm ent options including medications, physical therapy/exercise, (units unknown) (unknown) (unknown) (no date) (unknown) (unknown) well-balanced diet: daily or most days (units unknown) (unknown) (unknown) (no date) (unknown) (unknown) with future tr eatment planning. [] (units unknown) (unknown) (unknown) (no date) (unknown) (unknown) without eviden ce of ataxia. Lower quarter stability intact.] (units unknown) (unknown) (unknown) (no date) (unknown) (unknown) working smoke detector in home: Yes (units unknown) (unknown) Result panel 6 (unknown) (no date) (unknown) (unknown) (no value) (units unknown) (unknown) (unknown) (no date) (unknown) (unknown) (0=absent, 1=s light response, 2=brisk/normal, 3=very brisk, 4=clonus) (units unknown) (unknown) (unknown) (no date) (unknown) (unknown) (1) Low back pain: ( units unknown) (unknown) (unknown) (no date) (unknown) (unknown) (segments are from the International Standards for Neurological Classification (units unknown) (unknown) (unknown) (no date) (unknown) (unknown) - Activity: Co ntinue activity as tolerated. (units unknown) (unknown) (unknown) (no date) (unknown) (unknown) - Education: C auda equina and associated symptoms, including motor weakness, (units unknown) (unknown) (unknown) (no date) (unknown) (unknown) - FADIR: Negat katelyn bilaterally (units unknown) (unknown) (unknown) (no date) (unknown) (unknown) - Follow-up: 8 weeks (units unknown) (unknown) (unknown) (no date) (unknown) (unknown) - Hip ROM is: Within normal limits (units unknown) (unknown) (unknown) (no date) (unknown) (unknown) - I discussed risks, benefits and side effects. Additionally, patient was (units unknown) (unknown) (unknown) (no date) (unknown) (unknown) - Imaging: L-s pine x-ray ordered to better delineate the anatomy and help with (units unknown) (unknown) (unknown) (no date) (unknown) (unknown) - Interventional/Surgica l procedures: None indicated at this time. (units unknown) (unknown) (unknown) (no date) (unknown) (unknown) - Lumbar facet loading: Positive bilaterally (units unknown) (unknown) (unknown) (no date) (unknown) (unknown) - Medications: Prescriptions Written: Meloxicam 7.5 mg q.day; may increase to (units unknown) (unknown) (unknown) (no date) (unknown) (unknown) - Physical therapy/modalities/DME : Patient will likely benefit from physical (units unknown) (unknown) (unknown) (no date) (unknown) (unknown) - Prescription provided and uptitration instructions given if necessary. (units unknown) (unknown) (unknown) (no date) (unknown) (unknown) - Referrals: N one indicated at this time. (units unknown) (unknown) (unknown) (no date) (unknown) (unknown) - SIJ provocat ion testing: Negative bilaterally (units unknown) (unknown) (unknown) (no date) (unknown) (unknown) - Straight Leg Raise: Negative bilaterally (units unknown) (unknown) (unknown) (no date) (unknown) (unknown) 01/14/2023. Nicola hu presented to the emergency department and was given lidocaine (units unknown) (unknown) (unknown) (no date) (unknown) (unknown) 02/07/23 1016 (units unknown) (unknown) (unknown) (no date) (unknown) (unknown) 02/07/23 (units unknown) (unknown) (unknown) (no date) (unknown) (unknown) 02/07/23] (units unknown) (unknown) (unknown) (no date) (unknown) (unknown) 09:29 (units unknown) (unknown) (unknown) (no date) (unknown) (unknown) 15 mg q.day if she does not respond (units unknown) (unknown) (unknown) (no date) (unknown) (unknown) : [id number] (units unknown) (unknown) (unknown) (no date) (unknown) (unknown) ? Inspection - ? No gross appendicular or axial deformities (units unknown) (unknown) (unknown) (no date) (unknown) (unknown) ? Palpation -tenderness to palpation midline low back (units unknown) (unknown) (unknown) (no date) (unknown) (unknown) ? ROM -lumbar extension limited due to pain (units unknown) (unknown) (unknown) (no date) (unknown) (unknown) ? Special tests (uni ts unknown) (unknown) (unknown) (no date) (unknown) (unknown) ? Acetaminophen - doesn't help (units unknown) (unknown) (unknown) (no date) (unknown) (unknown) ? Antidepressants - celexa - no longer taking (units unknown) (unknown) (unknown) (no date) (unknown) (unknown) ? Antiepileptics - denies (units unknown) (unknown) (unknown) (no date) (unknown) (unknown) ? Mu scle Relaxants - denies (units unknown) (unknown) (unknown) (no date) (unknown) (unknown) ? NS AIDs - naproxen, ibuprofen (units unknown) (unknown) (unknown) (no date) (unknown) (unknown) ? Op ioids - Hydrocodone-acetaminop hen 5-325 mg 1 tab q.6 hours as (units unknown) (unknown) (unknown) (no date) (unknown) (unknown) ? St eroids - denies (units unknown) (unknown) (unknown) (no date) (unknown) (unknown) ? To picals - lidoderm (units unknown) (unknown) (unknown) (no date) (unknown) (unknown) ADHD (units unknown) (unknown) (unknown) (no date) (unknown) (unknown) Accompanied by : Self / Same As Patient (units unknown) (unknown) (unknown) (no date) (unknown) (unknown) Additional Soc ial History (units unknown) (unknown) (unknown) (no date) (unknown) (unknown) Age/Sex: 32 / F Date of Service: (units unknown) (unknown) (unknown) (no date) (unknown) (unknown) Aggravating fa ctors include: sitting, chores that require bending (units unknown) (unknown) (unknown) (no date) (unknown) (unknown) Alcoholism (units unknown) (unknown) (unknown) (no date) (unknown) (unknown) All other syst ems reviewed and are unremarkable except as noted in HPI. (units unknown) (unknown) (unknown) (no date) (unknown) (unknown) Allergies (units unknown) (unknown) (unknown) (no date) (unknown) (unknown) [place] [address] (units unknown) (unknown) (unknown) (no date) (unknown) (unknown) Anaphylaxis (units unknown) (unknown) (unknown) (no date) (unknown) (unknown) Anesthesia (units unknown) (unknown) (unknown) (no date) (unknown) (unknown) Assessment + Plan (u nits unknown) (unknown) (unknown) (no date) (unknown) (unknown) Assessment: (units unknown) (unknown) (unknown) (no date) (unknown) (unknown) Attending Dr: Celio Tejada MD (units unknown) (unknown) (unknown) (no date) (unknown) (unknown) BMI 45.1 (units unknown) (unknown) (unknown) (no date) (unknown) (unknown) BP 115/70 (units unknown) (unknown) (unknown) (no date) (unknown) (unknown) Babinski's Abby ngoing Downgoing (units unknown) (unknown) (unknown) (no date) (unknown) (unknown) Blood Pressure Location Rt brachial (units unknown) (unknown) (unknown) (no date) (unknown) (unknown) Bowel and blad yan: No loss of control (units unknown) (unknown) (unknown) (no date) (unknown) (unknown) Carpal tunnel syndrome (-2017) (units unknown) (unknown) (unknown) (no date) (unknown) (unknown) Cervical spine MRI showed right paracentral annulus tear plus minimal right (units unknown) (unknown) (unknown) (no date) (unknown) (unknown) Chart review: (units unknown) (unknown) (unknown) (no date) (unknown) (unknown) Chief Complaint (uni ts unknown) (unknown) (unknown) (no date) (unknown) (unknown) Chief Complain t: Low back pain (units unknown) (unknown) (unknown) (no date) (unknown) (unknown) Chronicity: ac [place] Back pain laterality: bilateral Sciatica presence: (units unknown) (unknown) (unknown) (no date) (unknown) (unknown) Clonus None None (un its unknown) (unknown) (unknown) (no date) (unknown) (unknown) Consult to dis cuss low back pain s/p 11/2022 (units unknown) (unknown) (unknown) (no date) (unknown) (unknown) Current pain treatments include: (units unknown) (unknown) (unknown) (no date) (unknown) (unknown) : 9 Acct:[id number] (units unknown) (unknown) (unknown) (no date) (unknown) (unknown) 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 (units unknown) (unknown) (unknown) (no date) (unknown) (unknown) Details: (units unknown) (unknown) (unknown) (no date) (unknown) (unknown) Diet and Exercise (u nits unknown) (unknown) (unknown) (no date) (unknown) (unknown) Documented By: Celio Tejada MD 02/07/23 1016 (units unknown) (unknown) (unknown) (no date) (unknown) (unknown) Exam Narrative (unit s unknown) (unknown) (unknown) (no date) (unknown) (unknown) Exam Narrative: (uni ts unknown) (unknown) (unknown) (no date) (unknown) (unknown) Exam (units unknown) (unknown) (unknown) (no date) (unknown) (unknown) Family History (Updated 06/08/22 @ 21:23 by Aurora Arevalo) (units unknown) (unknown) (unknown) (no date) (unknown) (unknown) Father Diabete s mellitus (units unknown) (unknown) (unknown) (no date) (unknown) (unknown) Foot pain () (u nits unknown) (unknown) (unknown) (no date) (unknown) (unknown) Gait/Station - Non-antalgic gait. Heel/toe walking intact. Tandem gait normal (units unknown) (unknown) (unknown) (no date) (unknown) (unknown) General: Well-nourished, well-developed, female in no acute distress (units unknown) (unknown) (unknown) (no date) (unknown) (unknown) HPI (units unknown) (unknown) (unknown) (no date) (unknown) (unknown) Heavy menstrua l period (-2020) (units unknown) (unknown) (unknown) (no date) (unknown) (unknown) Height 5 ft 5 in (un its unknown) (unknown) (unknown) (no date) (unknown) (unknown) History of polyhydramnios (units unknown) (unknown) (unknown) (no date) (unknown) (unknown) History of surgery ( units unknown) (unknown) (unknown) (no date) (unknown) (unknown) Intake Clinical Staf f (units unknown) (unknown) (unknown) (no date) (unknown) (unknown) Intake Note: (units unknown) (unknown) (unknown) (no date) (unknown) (unknown) Intake perform ed by: Shell Portillo (units unknown) (unknown) (unknown) (no date) (unknown) (unknown) Intake (units unknown) (unknown) (unknown) (no date) (unknown) (unknown) Intervention: Date: Outcome: (units unknown) (unknown) (unknown) (no date) (unknown) (unknown) Is patient in pain?: Yes Pain scale (1-10): 5 (units unknown) (unknown) (unknown) (no date) (unknown) (unknown) L2 Hip Flexion 5/5 5/5? (units unknown) (unknown) (unknown) (no date) (unknown) (unknown) L3 Knee Extens ion 5/5 5/5 (units unknown) (unknown) (unknown) (no date) (unknown) (unknown) L3-4 Patella 2+ 2 (u nits unknown) (unknown) (unknown) (no date) (unknown) (unknown) L4 Ankle Dorsi flexion 5/5 5/5 (units unknown) (unknown) (unknown) (no date) (unknown) (unknown) L5 Long Toe Ex tension 5/5 5/5 (units unknown) (unknown) (unknown) (no date) (unknown) (unknown) Hardy has a his tory of chronic low back pain with an acute exacerbation on (units unknown) (unknown) (unknown) (no date) (unknown) (unknown) Hardy is a 32-y ear-old female presenting for further evaluation of acute on (units unknown) (unknown) (unknown) (no date) (unknown) (unknown) Hardy is a 32-y ear-old female with a history of ASD, depression, ADHD, obesity (units unknown) (unknown) (unknown) (no date) (unknown) (unknown) Lidocaine patch 5% P RN (units unknown) (unknown) (unknown) (no date) (unknown) (unknown) Loc: PAIN (units unknown) (unknown) (unknown) (no date) (unknown) (unknown) Low back pain (units unknown) (unknown) (unknown) (no date) (unknown) (unknown) MSK: System re viewed and no additional complaints, except as documented. (units unknown) (unknown) (unknown) (no date) (unknown) (unknown) Medical Histor y (Updated 02/07/23 @ 10:11 by Celio Tejada MD) (units unknown) (unknown) (unknown) (no date) (unknown) (unknown) Medications (units unknown) (unknown) (unknown) (no date) (unknown) (unknown) Medications: (units unknown) (unknown) (unknown) (no date) (unknown) (unknown) Mental health proble m (units unknown) (unknown) (unknown) (no date) (unknown) (unknown) Mother Depression (u nits unknown) (unknown) (unknown) (no date) (unknown) (unknown) Motor (units unknown) (unknown) (unknown) (no date) (unknown) (unknown) Musculoskeletal: (un its unknown) (unknown) (unknown) (no date) (unknown) (unknown) Nearsightedness (uni ts unknown) (unknown) (unknown) (no date) (unknown) (unknown) Neuro: System reviewed and no additional complaints, except as documented. (units unknown) (unknown) (unknown) (no date) (unknown) (unknown) Neurologic: (units unknown) (unknown) (unknown) (no date) (unknown) (unknown) New (units unknown) (unknown) (unknown) (no date) (unknown) (unknown) Numbness/Tingl ing: occasional tingling of the posterior left thigh (units unknown) (unknown) (unknown) (no date) (unknown) (unknown) Onset/Context of linh n: (units unknown) (unknown) (unknown) (no date) (unknown) (unknown) Onset: chronic , worsened after EBP (units unknown) (unknown) (unknown) (no date) (unknown) (unknown) Orders (units unknown) (unknown) (unknown) (no date) (unknown) (unknown) Orders: (units unknown) (unknown) (unknown) (no date) (unknown) (unknown) Other: denies (units unknown) (unknown) (unknown) (no date) (unknown) (unknown) Oxygen Deliver y Method room air (units unknown) (unknown) (unknown) (no date) (unknown) (unknown) PFSH (units unknown) (unknown) (unknown) (no date) (unknown) (unknown) PT: PT schedul ed out for March 2023 at [facility] (units unknown) (unknown) (unknown) (no date) (unknown) (unknown) PTSD (post-tra umatic stress disorder) (-1999) (units unknown) (unknown) (unknown) (no date) (unknown) (unknown) Pain Scale (units unknown) (unknown) (unknown) (no date) (unknown) (unknown) Pain Visit (units unknown) (unknown) (unknown) (no date) (unknown) (unknown) Pain location/Radiation: Across the low back, denies radiation (units unknown) (unknown) (unknown) (no date) (unknown) (unknown) Pain ratin /10 today, 9/10 at worst (units unknown) (unknown) (unknown) (no date) (unknown) (unknown) Painful menstr ual periods (-2019) (units unknown) (unknown) (unknown) (no date) (unknown) (unknown) Patient: Hardy Cruz MR# (units unknown) (unknown) (unknown) (no date) (unknown) (unknown) Plan (units unknown) (unknown) (unknown) (no date) (unknown) (unknown) Plan/Recommendations : (units unknown) (unknown) (unknown) (no date) (unknown) (unknown) Polyhydramnios (unit s unknown) (unknown) (unknown) (no date) (unknown) (unknown) Position Sitting (un its unknown) (unknown) (unknown) (no date) (unknown) (unknown) depressio n (units unknown) (unknown) (unknown) (no date) (unknown) (unknown) Previous gladys joseph section (units unknown) (unknown) (unknown) (no date) (unknown) (unknown) Previous pain treatments included: (units unknown) (unknown) (unknown) (no date) (unknown) (unknown) Psych: Appropr iate affect, answers questions appropriately (units unknown) (unknown) (unknown) (no date) (unknown) (unknown) Pulse 84 (units unknown) (unknown) (unknown) (no date) (unknown) (unknown) Pulse Oximetry (%) 9 8 (units unknown) (unknown) (unknown) (no date) (unknown) (unknown) Pulse Source Monitor (units unknown) (unknown) (unknown) (no date) (unknown) (unknown) Qualifiers: (units unknown) (unknown) (unknown) (no date) (unknown) (unknown) Quality and ti carly of pain: constant, deep, dull (units unknown) (unknown) (unknown) (no date) (unknown) (unknown) ROS Narrative (units unknown) (unknown) (unknown) (no date) (unknown) (unknown) ROS Narrative: (unit s unknown) (unknown) (unknown) (no date) (unknown) (unknown) ROS (units unknown) (unknown) (unknown) (no date) (unknown) (unknown) Reason For Visit (un its unknown) (unknown) (unknown) (no date) (unknown) (unknown) Red flag symptoms: ( units unknown) (unknown) (unknown) (no date) (unknown) (unknown) Reflex Right Left (u nits unknown) (unknown) (unknown) (no date) (unknown) (unknown) Reflexes: (units unknown) (unknown) (unknown) (no date) (unknown) (unknown) Relieving fact ors include: lying down (units unknown) (unknown) (unknown) (no date) (unknown) (unknown) Respiratory: Non-labored breathing pattern on RA. No respiratory distress (units unknown) (unknown) (unknown) (no date) (unknown) (unknown) Restless leg syndrom e (units unknown) (unknown) (unknown) (no date) (unknown) (unknown) S1 Ankle Plantarflexion 5/5 5/5 (units unknown) (unknown) (unknown) (no date) (unknown) (unknown) S1-2 Achilles 2+ 2 ( units unknown) (unknown) (unknown) (no date) (unknown) (unknown) Saddle anesthe carlos: denies (units unknown) (unknown) (unknown) (no date) (unknown) (unknown) Safety (units unknown) (unknown) (unknown) (no date) (unknown) (unknown) Segment Action Right Left (units unknown) (unknown) (unknown) (no date) (unknown) (unknown) Segment Reflex Right Left (units unknown) (unknown) (unknown) (no date) (unknown) (unknown) Sensory -? Int act to light touch of bilateral lower extremities. Allodynia (units unknown) (unknown) (unknown) (no date) (unknown) (unknown) Signed By: <Electronically signed by Celio Tejada MD> (units unknown) (unknown) (unknown) (no date) (unknown) (unknown) Signed (units unknown) (unknown) (unknown) (no date) (unknown) (unknown) Skin: No appre ciable rashes or skin breakdown (units unknown) (unknown) (unknown) (no date) (unknown) (unknown) Smoking Status : Former smoker (units unknown) (unknown) (unknown) (no date) (unknown) (unknown) Social History (unit s unknown) (unknown) (unknown) (no date) (unknown) (unknown) Son Hearing loss (un its unknown) (unknown) (unknown) (no date) (unknown) (unknown) Standing: limi hanny due to pain (units unknown) (unknown) (unknown) (no date) (unknown) (unknown) Status: Acute (units unknown) (unknown) (unknown) (no date) (unknown) (unknown) Surgery: denies (uni ts unknown) (unknown) (unknown) (no date) (unknown) (unknown) Surgical Histo ry (Updated 07/12/22 @ 15:10 by Josefina Baumann MD) (units unknown) (unknown) (unknown) (no date) (unknown) (unknown) Temp 97.6 F (units unknown) (unknown) (unknown) (no date) (unknown) (unknown) Temp Source Te mporal Artery Scan (units unknown) (unknown) (unknown) (no date) (unknown) (unknown) [facility] (units unknown) (unknown) (unknown) (no date) (unknown) (unknown) This note may have been all or partially generated using voice recognition (units unknown) (unknown) (unknown) (no date) (unknown) (unknown) Tobacco + Subs tance Use (units unknown) (unknown) (unknown) (no date) (unknown) (unknown) Tobacco Status (unit s unknown) (unknown) (unknown) (no date) (unknown) (unknown) Today I have r eviewed available medical information in the patient's medical (units unknown) (unknown) (unknown) (no date) (unknown) (unknown) Type(s) of exe rcise: walking (units unknown) (unknown) (unknown) (no date) (unknown) (unknown) Upper Motor Ne uron Signs: (units unknown) (unknown) (unknown) (no date) (unknown) (unknown) 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 (units unknown) (unknown) (unknown) (no date) (unknown) (unknown) We reviewed et iology, predisposing factor(s), natural course, imaging results as (units unknown) (unknown) (unknown) (no date) (unknown) (unknown) Weakness: denies (un its unknown) (unknown) (unknown) (no date) (unknown) (unknown) Weight 271 lb 8 oz ( units unknown) (unknown) (unknown) (no date) (unknown) (unknown) Roy teeth extract ed (units unknown) (unknown) (unknown) (no date) (unknown) (unknown) XR lumbar spin e min 4V Today M54.50 - Low back pain, unspecified (units unknown) (unknown) (unknown) (no date) (unknown) (unknown) additional soc ial history: Difficulty other children. Would (units unknown) (unknown) (unknown) (no date) (unknown) (unknown) alcohol intake: form er (units unknown) (unknown) (unknown) (no date) (unknown) (unknown) and chronic lo w back pain who presents for further evaluation of low back pain. (units unknown) (unknown) (unknown) (no date) (unknown) (unknown) benefits of va rious treatment options were discussed with the patient in great (units unknown) (unknown) (unknown) (no date) (unknown) (unknown) bowel/bladder dysfunction, and perineal numbness were discussed. The patient was (units unknown) (unknown) (unknown) (no date) (unknown) (unknown) caffeine: Yes (soft drinks in small quantities, well within 200mg limit) (units unknown) (unknown) (unknown) (no date) (unknown) (unknown) carbon monox d etector in home: Yes (units unknown) (unknown) (unknown) (no date) (unknown) (unknown) central canal or neuroforaminal stenosis. There is also evidence of (units unknown) (unknown) (unknown) (no date) (unknown) (unknown) chronic low ba ck pain. 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 Lastly, (units unknown) (unknown) (unknown) (no date) (unknown) (unknown) delivery. (units unknown) (unknown) (unknown) (no date) (unknown) (unknown) detail. (units unknown) (unknown) (unknown) (no date) (unknown) (unknown) do you feel sa fe at home: Yes (units unknown) (unknown) (unknown) (no date) (unknown) (unknown) double electri c breast pump 1 ea topical .prn #1 ea 11/01/22 [Rx Confirmed (units unknown) (unknown) (unknown) (no date) (unknown) (unknown) during the pas t year weight has: other (wide fluctuations since last ) (units unknown) (unknown) (unknown) (no date) (unknown) (unknown) education leve l: vocational (some college, certificate programs) (units unknown) (unknown) (unknown) (no date) (unknown) (unknown) fire extinguis her in home: Yes (units unknown) (unknown) (unknown) (no date) (unknown) (unknown) firearms in ho me: Yes firearms unloaded and locked: Yes (units unknown) (unknown) (unknown) (no date) (unknown) (unknown) flaxseed Aller gy (Severe, Verified 02/07/23 08:41) (units unknown) (unknown) (unknown) (no date) (unknown) (unknown) future treatme nt planning. (units unknown) (unknown) (unknown) (no date) (unknown) (unknown) grade breast p ump that she can have when she goes home from hospital after (units unknown) (unknown) (unknown) (no date) (unknown) (unknown) have occurred. If there are any questions, please contact the Medical Records (units unknown) (unknown) (unknown) (no date) (unknown) (unknown) household memb ers: spouse, family ([id number] and his 3 children (moving out (units unknown) (unknown) (unknown) (no date) (unknown) (unknown) housing: house (unit s unknown) (unknown) (unknown) (no date) (unknown) (unknown) instructed to report to the Emergency department, if these symptoms occur. (units unknown) (unknown) (unknown) (no date) (unknown) (unknown) instructed to stop if any side effects. (units unknown) (unknown) (unknown) (no date) (unknown) (unknown) intravenous dr ug use, sustained glucocorticoid use, osteoporosis, or a focal (units unknown) (unknown) (unknown) (no date) (unknown) (unknown) levothyroxine 137 mcg tablet 137 mcg PO DAILY #30 tabs 10/17/22 [Rx Confirmed (units unknown) (unknown) (unknown) (no date) (unknown) (unknown) lives independ ently: Yes (units unknown) (unknown) (unknown) (no date) (unknown) (unknown) low back pain and headaches and the symptoms were felt to be likely related to a (units unknown) (unknown) (unknown) (no date) (unknown) (unknown) marital status : (units unknown) (unknown) (unknown) (no date) (unknown) (unknown) may occur. Occ asional wrong-word or 'sound-alike' substitutions may have (units unknown) (unknown) (unknown) (no date) (unknown) (unknown) medication and other NSAIDs should be avoided while on meloxicam. (units unknown) (unknown) (unknown) (no date) (unknown) (unknown) meloxicam 7.5 mg PO DAILY 30 tabs 2RF (units unknown) (unknown) (unknown) (no date) (unknown) (unknown) meloxicam 7.5 mg tablet 7.5 mg PO DAILY #30 tabs 02/07/23 [Rx Confirmed (units unknown) (unknown) (unknown) (no date) (unknown) (unknown) multifactorial including components of vertebrogenic, facet arthropathy and (units unknown) (unknown) (unknown) (no date) (unknown) (unknown) myofascial linh n. I do not feel there is a radicular component to her pain at (units unknown) (unknown) (unknown) (no date) (unknown) (unknown) needed - given by recent ED visit (units unknown) (unknown) (unknown) (no date) (unknown) (unknown) negative, Hype ralgesia - negative (units unknown) (unknown) (unknown) (no date) (unknown) (unknown) neurological d eficit with progressive or disabling symptoms. (units unknown) (unknown) (unknown) (no date) (unknown) (unknown) number of children: 3 (units unknown) (unknown) (unknown) (no date) (unknown) (unknown) occupational s tatus: unemployed and previously employed (units unknown) (unknown) (unknown) (no date) (unknown) (unknown) occurred due t o the inherent limitations of voice recognition software. Please (units unknown) (unknown) (unknown) (no date) (unknown) (unknown) of Spinal Cord Injur y) (units unknown) (unknown) (unknown) (no date) (unknown) (unknown) of herniated d isc in the lumbar spine. She reports worsening of her pain status (units unknown) (unknown) (unknown) (no date) (unknown) (unknown) or foraminal s tenosis and a mild right paracentral disc protrusion at L5-S1 (units unknown) (unknown) (unknown) (no date) (unknown) (unknown) or immunosuppr essive therapy, previous or current cancer diagnosis, history of (units unknown) (unknown) (unknown) (no date) (unknown) (unknown) paracentral di sc protrusion without canal stenosis at C5-6. (units unknown) (unknown) (unknown) (no date) (unknown) (unknown) patches and a prednisone taper. She was referred to Neurology on 12/29/2022 for (units unknown) (unknown) (unknown) (no date) (unknown) (unknown) performed at t he time of this evaluation. Her low back pain is likely (units unknown) (unknown) (unknown) (no date) (unknown) (unknown) pets and anima ls: Yes (horses) (units unknown) (unknown) (unknown) (no date) (unknown) (unknown) post epidural blood patch. MRI showed slight disc bulge at L5-S1 without (units unknown) (unknown) (unknown) (no date) (unknown) (unknown) prenat.vits,ca l,min-ir on-folic 1 tab PO DAILY 04/22/22 [History Confirmed (units unknown) (unknown) (unknown) (no date) (unknown) (unknown) read the note carefully and recognize, using context, where these substitutions (units unknown) (unknown) (unknown) (no date) (unknown) (unknown) really like to meet w/ [facility] prior to delivery and would like Rx for hospital (units unknown) (unknown) (unknown) (no date) (unknown) (unknown) record, includ ing relevant provider notes, laboratory work, and imaging. (units unknown) (unknown) (unknown) (no date) (unknown) (unknown) seatbelt use: always (units unknown) (unknown) (unknown) (no date) (unknown) (unknown) second hand ex posure: No (units unknown) (unknown) (unknown) (no date) (unknown) (unknown) software. Alth ough every effort is made to edit content, bookbinder chief errors (units unknown) (unknown) (unknown) (no date) (unknown) (unknown) soon)) and children (units unknown) (unknown) (unknown) (no date) (unknown) (unknown) special roland needs: No (units unknown) (unknown) (unknown) (no date) (unknown) (unknown) spinal headach e secondary to planned spinal anesthesia for . She is (units unknown) (unknown) (unknown) (no date) (unknown) (unknown) status post ep idural blood patch. She was referred to physical therapy. MRI of (units unknown) (unknown) (unknown) (no date) (unknown) (unknown) substance use type: marijuana (in the past, not recently and not while ) (units unknown) (unknown) (unknown) (no date) (unknown) (unknown) taking this fo r up to several months. This is not meant to be a long-term (units unknown) (unknown) (unknown) (no date) (unknown) (unknown) the lumbar spi ne showed multilevel facet hypertrophy, no central canal stenosis (units unknown) (unknown) (unknown) (no date) (unknown) (unknown) therapeutic in jections and surgery. The risks, consequences, alternatives and (units unknown) (unknown) (unknown) (no date) (unknown) (unknown) therapy and nonsteroidal medications. Meloxicam was ordered and we discussed (units unknown) (unknown) (unknown) (no date) (unknown) (unknown) therapy. ?She has a referral in place and is scheduled to start in March 2023. (units unknown) (unknown) (unknown) (no date) (unknown) (unknown) there is evide nce of multilevel facet hypertrophy. Lumbar x-rays had not been (units unknown) (unknown) (unknown) (no date) (unknown) (unknown) this time. Conservative management was encouraged including starting physical (units unknown) (unknown) (unknown) (no date) (unknown) (unknown) water heater t emp set < 120 deg: Yes (units unknown) (unknown) (unknown) (no date) (unknown) (unknown) well as treatm ent options including medications, physical therapy/exercise, (units unknown) (unknown) (unknown) (no date) (unknown) (unknown) well-balanced diet: daily or most days (units unknown) (unknown) (unknown) (no date) (unknown) (unknown) without eviden ce of ataxia. Lower quarter stability intact. (units unknown) (unknown) (unknown) (no date) (unknown) (unknown) without nerve root impingement. Thoracic spine MRI was grossly unremarkable. (units unknown) (unknown) (unknown) (no date) (unknown) (unknown) without sciati ca Qualified Code(s): M54.50 - Low back pain, unspecified (units unknown) (unknown) (unknown) (no date) (unknown) (unknown) working smoke detector in home: Yes (units unknown) (unknown) Result panel 7 (unknown) (no date) (unknown) (unknown) (no value) (units unknown) (unknown) (unknown) (no date) (unknown) (unknown) 'syndrome';) (units unknown) (unknown) (unknown) (no date) (unknown) (unknown) (+11 lb) 112/62 N (u nits unknown) (unknown) (unknown) (no date) (unknown) (unknown) (+13 lb) 118/68 N (u nits unknown) (unknown) (unknown) (no date) (unknown) (unknown) (+21 lb 7 oz) 98/68 N (units unknown) (unknown) (unknown) (no date) (unknown) (unknown) (+27 lb) 110/70 N (u nits unknown) (unknown) (unknown) (no date) (unknown) (unknown) (+30 lb) 126/66 N (u nits unknown) (unknown) (unknown) (no date) (unknown) (unknown) (+34 lb) 104/68 N (u nits unknown) (unknown) (unknown) (no date) (unknown) (unknown) (+38 lb) 114/60 N (u nits unknown) (unknown) (unknown) (no date) (unknown) (unknown) (+49 lb) 112/68 N (u nits unknown) (unknown) (unknown) (no date) (unknown) (unknown) (+6 lb) 108/68 N (un its unknown) (unknown) (unknown) (no date) (unknown) (unknown) (1) examination following delivery: (units unknown) (unknown) (unknown) (no date) (unknown) (unknown) Genetic Screening/Teratology Counseling - Includes patient, baby's father, or (units unknown) (unknown) (unknown) (no date) (unknown) (unknown) -?-?-?-?-?-?-? -?-?-?-? -? (units unknown) (unknown) (unknown) (no date) (unknown) (unknown) .54 cm 1 week (units unknown) (unknown) (unknown) (no date) (unknown) (unknown) 01/05/23 (units unknown) (unknown) (unknown) (no date) (unknown) (unknown) 01/24/14 41 17 7 lb 1 oz Female live - full t (units unknown) (unknown) (unknown) (no date) (unknown) (unknown) 02/07/23] (units unknown) (unknown) (unknown) (no date) (unknown) (unknown) 02/17/23 1913 (units unknown) (unknown) (unknown) (no date) (unknown) (unknown) 02/19/21 39 7 lb 12 oz Female live - full term (units unknown) (unknown) (unknown) (no date) (unknown) (unknown) 05/13/22 (units unknown) (unknown) (unknown) (no date) (unknown) (unknown) 06/09/22 (units unknown) (unknown) (unknown) (no date) (unknown) (unknown) 06/16/15 38 7 lb 13 oz Male live - full (units unknown) (unknown) (unknown) (no date) (unknown) (unknown) 07/12/22 (units unknown) (unknown) (unknown) (no date) (unknown) (unknown) 08/15/22 (units unknown) (unknown) (unknown) (no date) (unknown) (unknown) 1 wk (units unknown) (unknown) (unknown) (no date) (unknown) (unknown) 09/13/22 (units unknown) (unknown) (unknown) (no date) (unknown) (unknown) 10/04/22 (units unknown) (unknown) (unknown) (no date) (unknown) (unknown) 10/18/21 8 spo ntaneous (units unknown) (unknown) (unknown) (no date) (unknown) (unknown) 10/18/22 (units unknown) (unknown) (unknown) (no date) (unknown) (unknown) 11w 2d 261 lb (units unknown) (unknown) (unknown) (no date) (unknown) (unknown) 11w3d 4 wks (units unknown) (unknown) (unknown) (no date) (unknown) (unknown) 11/01/22 (units unknown) (unknown) (unknown) (no date) (unknown) (unknown) 11/15/22 (units unknown) (unknown) (unknown) (no date) (unknown) (unknown) 14:50 (units unknown) (unknown) (unknown) (no date) (unknown) (unknown) 15w 1d 266 lb (units unknown) (unknown) (unknown) (no date) (unknown) (unknown) 19w 6d 268 lb (units unknown) (unknown) (unknown) (no date) (unknown) (unknown) 2 lb 15 oz. 55 %ile. Placenta grade 0 and anterior. Normal amniotic fluid (units unknown) (unknown) (unknown) (no date) (unknown) (unknown) 2 wees or as needed. (units unknown) (unknown) (unknown) (no date) (unknown) (unknown) 2 wks (units unknown) (unknown) (unknown) (no date) (unknown) (unknown) 20.14 cm. Grad e 0 placenta. Plan: Follow-up in 2 weeks. Warning signs (units unknown) (unknown) (unknown) (no date) (unknown) (unknown) 24w 5d 276 lb 7 oz ( units unknown) (unknown) (unknown) (no date) (unknown) (unknown) 28w 6d 282 lb (units unknown) (unknown) (unknown) (no date) (unknown) (unknown) 3 wks (units unknown) (unknown) (unknown) (no date) (unknown) (unknown) 31 weeks gesta tion. Good movement. No leakage of fluid or vaginal (units unknown) (unknown) (unknown) (no date) (unknown) (unknown) 31w 6d 285 lb (units unknown) (unknown) (unknown) (no date) (unknown) (unknown) 32 year old with a normal 6 wk PP exam after a repeat C section (units unknown) (unknown) (unknown) (no date) (unknown) (unknown) 33w 6d 289 lb (units unknown) (unknown) (unknown) (no date) (unknown) (unknown) 35w 6d 293 lb (units unknown) (unknown) (unknown) (no date) (unknown) (unknown) 37w 6d 304 lb (units unknown) (unknown) (unknown) (no date) (unknown) (unknown) 5 wks (units unknown) (unknown) (unknown) (no date) (unknown) (unknown) 6 week postpar bob- no plans at this time for contraception (units unknown) (unknown) (unknown) (no date) (unknown) (unknown) : [id number] (units unknown) (unknown) (unknown) (no date) (unknown) (unknown) ADHD (units unknown) (unknown) (unknown) (no date) (unknown) (unknown) Abdomen: soft; Negative for non-tender, uterus palp or hepatosplemegaly (units unknown) (unknown) (unknown) (no date) (unknown) (unknown) Abnormal lab v alues 1st trimester: discussed (units unknown) (unknown) (unknown) (no date) (unknown) (unknown) Add'l Plan Details ( units unknown) (unknown) (unknown) (no date) (unknown) (unknown) Additional Det ails:: 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 (units unknown) (unknown) (unknown) (no date) (unknown) (unknown) Additional Soc ial History (units unknown) (unknown) (unknown) (no date) (unknown) (unknown) Age/Sex: 32 / F Date of Service: (units unknown) (unknown) (unknown) (no date) (unknown) (unknown) Alcoholism (units unknown) (unknown) (unknown) (no date) (unknown) (unknown) Allergies (units unknown) (unknown) (unknown) (no date) (unknown) (unknown) [place] [address] (units unknown) (unknown) (unknown) (no date) (unknown) (unknown) Anaphylaxis (units unknown) (unknown) (unknown) (no date) (unknown) (unknown) Anesthesia (units unknown) (unknown) (unknown) (no date) (unknown) (unknown) Aneuploidy Scr eening Offered: Accepted (Would like CFDNA if qualified) (units unknown) (unknown) (unknown) (no date) (unknown) (unknown) Anticipated co urse of care: discussed (units unknown) (unknown) (unknown) (no date) (unknown) (unknown) Assessment and Plan (units unknown) (unknown) (unknown) (no date) (unknown) (unknown) Assessment: (units unknown) (unknown) (unknown) (no date) (unknown) (unknown) Attending Dr: Josefina Baumann MD (units unknown) (unknown) (unknown) (no date) (unknown) (unknown) BMI 46.8 (units unknown) (unknown) (unknown) (no date) (unknown) (unknown) BP 106/64 (units unknown) (unknown) (unknown) (no date) (unknown) (unknown) [place] 2 mon ths post-dates induction (units unknown) (unknown) (unknown) (no date) (unknown) (unknown) Bimanual: week size: (6); Negative for mobile, tender, adnexal mass or adnexal (units unknown) (unknown) (unknown) (no date) (unknown) (unknown) Plan/Preferenc es (units unknown) (unknown) (unknown) (no date) (unknown) (unknown) Planning (unit s unknown) (unknown) (unknown) (no date) (unknown) (unknown) control method:: none (units unknown) (unknown) (unknown) (no date) (unknown) (unknown) Bladder: Repor ts emptying; Denies pain with urination, urge incontinence or (units unknown) (unknown) (unknown) (no date) (unknown) (unknown) Bleeding: No (units unknown) (unknown) (unknown) (no date) (unknown) (unknown) Blood Pressure Location Lt brachial (units unknown) (unknown) (unknown) (no date) (unknown) (unknown) Blood transfus ions?: yes (Never had but would accept ) (units unknown) (unknown) (unknown) (no date) (unknown) (unknown) Blues/Depressi on/Anxie ty: Yes Blues/Depression Branch: Reports easily crying, (units unknown) (unknown) (unknown) (no date) (unknown) (unknown) Bowel: Reports daily and stool soft; Denies constipation or stool hard (units unknown) (unknown) (unknown) (no date) (unknown) (unknown) Breastfeed Pre g Comp Name (units unknown) (unknown) (unknown) (no date) (unknown) (unknown) Breasts: symme tric; Negative for masses, DERIK, erythema or cracked nipples (units unknown) (unknown) (unknown) (no date) (unknown) (unknown) Carpal tunnel syndrome (-2018) (units unknown) (unknown) (unknown) (no date) (unknown) (unknown) Cervix: parous ; Negative for well healed, polyps or lesions (units unknown) (unknown) (unknown) (no date) (unknown) (unknown) [facility] (units unknown) (unknown) (unknown) (no date) (unknown) (unknown) Current Estima te 11/30/22 LMP (Certain) 51w 2d (units unknown) (unknown) (unknown) (no date) (unknown) (unknown) Current Pregna ncy History (units unknown) (unknown) (unknown) (no date) (unknown) (unknown) DNA (units unknown) (unknown) (unknown) (no date) (unknown) (unknown) : 9 Acct:[id number] (units unknown) (unknown) (unknown) (no date) (unknown) (unknown) Date of positi ve home test: 03/25/22 (units unknown) (unknown) (unknown) (no date) (unknown) (unknown) Date (units unknown) (unknown) (unknown) (no date) (unknown) (unknown) 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 Date GA/W eeks Labor Lgth Wt Sex Route Outcome Anesthesia Place (units unknown) (unknown) (unknown) (no date) (unknown) (unknown) Delivery Date: 11/24/22 (units unknown) (unknown) (unknown) (no date) (unknown) (unknown) Delivery Date: 02/19/21 Last Updated by: Susi Petersen RN (units unknown) (unknown) (unknown) (no date) (unknown) (unknown) Delivery Date: 06/16/15 Last Updated by: Susi Petersen RN (units unknown) (unknown) (unknown) (no date) (unknown) (unknown) Delv (units unknown) (unknown) (unknown) (no date) (unknown) (unknown) Denies other (units unknown) (unknown) (unknown) (no date) (unknown) (unknown) Denies over th e counter medications, Denies alcohol, Denies illicit drugs and (units unknown) (unknown) (unknown) (no date) (unknown) (unknown) Depression (-1999) ( units unknown) (unknown) (unknown) (no date) (unknown) (unknown) Depression: discusse d (units unknown) (unknown) (unknown) (no date) (unknown) (unknown) Dept at [phone]. (units unknown) (unknown) (unknown) (no date) (unknown) (unknown) Diet and Exercise (u nits unknown) (unknown) (unknown) (no date) (unknown) (unknown) Discussed anes thesia, but encouraged Hardy to discuss this more in depth with (units unknown) (unknown) (unknown) (no date) (unknown) (unknown) Documented By: Josefina Baumann MD 01/05/23 1446 (units unknown) (unknown) (unknown) (no date) (unknown) (unknown) ECTOR Calculator (unit s unknown) (unknown) (unknown) (no date) (unknown) (unknown) EGA Weight BP UGluco se (units unknown) (unknown) (unknown) (no date) (unknown) (unknown) Estimated Deli very Date Method Current (units unknown) (unknown) (unknown) (no date) (unknown) (unknown) Exam (units unknown) (unknown) (unknown) (no date) (unknown) (unknown) Expected Deliv john Route/Plan (units unknown) (unknown) (unknown) (no date) (unknown) (unknown) Family History (Updated 06/08/22 @ 21:23 by Aurora Arevalo) (units unknown) (unknown) (unknown) (no date) (unknown) (unknown) Father Diabete s mellitus (units unknown) (unknown) (unknown) (no date) (unknown) (unknown) Father of Baby: same (units unknown) (unknown) (unknown) (no date) (unknown) (unknown) Feeding: breast (uni ts unknown) (unknown) (unknown) (no date) (unknown) (unknown) [facility] (units unknown) (unknown) (unknown) (no date) (unknown) (unknown) First Trimeste r Education Checklist (units unknown) (unknown) (unknown) (no date) (unknown) (unknown) Follow-up in 4 weeks. Warning signs reviewed. kag (units unknown) (unknown) (unknown) (no date) (unknown) (unknown) Follow-up in 4 weeks. We will call with anatomic survey results. (units unknown) (unknown) (unknown) (no date) (unknown) (unknown) Foot pain () (u nits unknown) (unknown) (unknown) (no date) (unknown) (unknown) Free T4, Direc t Thyroxine 01/05/23 E03.9 - Hypothyroidism, unspecified (units unknown) (unknown) (unknown) (no date) (unknown) (unknown) (units unknown) (unknown) (unknown) (no date) (unknown) (unknown) Pastor at her n ext visit. f/u in 4 weeks. (units unknown) (unknown) (unknown) (no date) (unknown) (unknown) Genetic Screen ing + Counseling (units unknown) (unknown) (unknown) (no date) (unknown) (unknown) Genetic Screening (u nits unknown) (unknown) (unknown) (no date) (unknown) (unknown) 5 Mult iple births (units unknown) (unknown) (unknown) (no date) (unknown) (unknown) : 5 (units unknown) (unknown) (unknown) (no date) (unknown) (unknown) HIV risk evalu ation: low risk (units unknown) (unknown) (unknown) (no date) (unknown) (unknown) Health Center Education (units unknown) (unknown) (unknown) (no date) (unknown) (unknown) Health center information: nature of practice discussed, personnel (units unknown) (unknown) (unknown) (no date) (unknown) (unknown) Heavy menstrua l period () (units unknown) (unknown) (unknown) (no date) (unknown) (unknown) Height 5 ft 4 in (un its unknown) (unknown) (unknown) (no date) (unknown) (unknown) Hepatitis C ri sk evaluation: low risk (units unknown) (unknown) (unknown) (no date) (unknown) (unknown) Her GBS cultur es reported as negative. Her baby remains active but she denies (units unknown) (unknown) (unknown) (no date) (unknown) (unknown) History of Hep atitis B: No (units unknown) (unknown) (unknown) (no date) (unknown) (unknown) History of Hep atitis C: No (units unknown) (unknown) (unknown) (no date) (unknown) (unknown) History of polyhydramnios (units unknown) (unknown) (unknown) (no date) (unknown) (unknown) History of surgery ( units unknown) (unknown) (unknown) (no date) (unknown) (unknown) History/Interi m Details (units unknown) (unknown) (unknown) (no date) (unknown) (unknown) Hospital: (units unknown) (unknown) (unknown) (no date) (unknown) (unknown) [facility]. (uni ts unknown) (unknown) (unknown) (no date) (unknown) (unknown) Hx # Pregnancies Elective abortions (units unknown) (unknown) (unknown) (no date) (unknown) (unknown) Hx # Term Preg nancies 3 Ectopic pregnancies (units unknown) (unknown) (unknown) (no date) (unknown) (unknown) Hx severe polyhydramnios (units unknown) (unknown) (unknown) (no date) (unknown) (unknown) Hypothyroid (units unknown) (unknown) (unknown) (no date) (unknown) (unknown) Incision: Nega tive for clean, dry, intact, granulation tissue, discharge or (units unknown) (unknown) (unknown) (no date) (unknown) (unknown) W eight: 7# 12oz (units unknown) (unknown) (unknown) (no date) (unknown) (unknown) Infant Longest Sleep: 4hours (units unknown) (unknown) (unknown) (no date) (unknown) (unknown) Recent Weight: 10lb 1oz (units unknown) (unknown) (unknown) (no date) (unknown) (unknown) will be adopted?: no (units unknown) (unknown) (unknown) (no date) (unknown) (unknown) 's Name: Cristy carcamo (units unknown) (unknown) (unknown) (no date) (unknown) (unknown) Infant's Sex: Female (units unknown) (unknown) (unknown) (no date) (unknown) (unknown) Infection History (u nits unknown) (unknown) (unknown) (no date) (unknown) (unknown) Infectious Dis ease Education (units unknown) (unknown) (unknown) (no date) (unknown) (unknown) Infectious dis ease exposure: chicken pox immunity discussed, hepatitis risk (units unknown) (unknown) (unknown) (no date) (unknown) (unknown) Initial Weight: 255 lb (units unknown) (unknown) (unknown) (no date) (unknown) (unknown) Initials (units unknown) (unknown) (unknown) (no date) (unknown) (unknown) Intake Clinical Staf f (units unknown) (unknown) (unknown) (no date) (unknown) (unknown) Intake Note: (units unknown) (unknown) (unknown) (no date) (unknown) (unknown) Intake perform ed by: Gi Culp (units unknown) (unknown) (unknown) (no date) (unknown) (unknown) Intake (units unknown) (unknown) (unknown) (no date) (unknown) (unknown) [place]: R eports resumed; Denies issues (units unknown) (unknown) (unknown) (no date) (unknown) (unknown) Interim control method: Reports none (units unknown) (unknown) (unknown) (no date) (unknown) (unknown) LM (units unknown) (unknown) (unknown) (no date) (unknown) (unknown) Lab:: thyroid (units unknown) (unknown) (unknown) (no date) (unknown) (unknown) Hardy and her c estrellita present for her SHERMAN visit now at 33+ 6 weeks (units unknown) (unknown) (unknown) (no date) (unknown) (unknown) Hardy presents today with her 3 kids for a routine OB visit at 24w5d. She (units unknown) (unknown) (unknown) (no date) (unknown) (unknown) Hardy returns t nicky for her SHERMAN visit now at 37+ 6 weeks gestational age. (units unknown) (unknown) (unknown) (no date) (unknown) (unknown) Live with some one with TB or exposed to TB: No (units unknown) (unknown) (unknown) (no date) (unknown) (unknown) Loc: [facility] (units unknown) (unknown) (unknown) (no date) (unknown) (unknown) Low back pain (units unknown) (unknown) (unknown) (no date) (unknown) (unknown) Marital status : (units unknown) (unknown) (unknown) (no date) (unknown) (unknown) Medical Histor y (Updated 02/07/23 @ 10:11 by Celio Tejada MD) (units unknown) (unknown) (unknown) (no date) (unknown) (unknown) Medications (units unknown) (unknown) (unknown) (no date) (unknown) (unknown) Mental health proble m (units unknown) (unknown) (unknown) (no date) (unknown) (unknown) Migraine headaches ( units unknown) (unknown) (unknown) (no date) (unknown) (unknown) Mother Depression (u nits unknown) (unknown) (unknown) (no date) (unknown) (unknown) N No no 146 15 N/A absent 4 wks (units unknown) (unknown) (unknown) (no date) (unknown) (unknown) N No no 168 11 N/A absent long/closed AGA (units unknown) (unknown) (unknown) (no date) (unknown) (unknown) N Yes no 143 3 2 Breech absent HUNTER 20.14cm (units unknown) (unknown) (unknown) (no date) (unknown) (unknown) N Yes no 152 4 2 Vertex absent GBS NEGATIVE (units unknown) (unknown) (unknown) (no date) (unknown) (unknown) Nearsightedness (uni ts unknown) (unknown) (unknown) (no date) (unknown) (unknown) No Pap (units unknown) (unknown) (unknown) (no date) (unknown) (unknown) Notes (units unknown) (unknown) (unknown) (no date) (unknown) (unknown) Number of Alivia ng Children 3 (units unknown) (unknown) (unknown) (no date) (unknown) (unknown) Number of Week s Post : 6 (units unknown) (unknown) (unknown) (no date) (unknown) (unknown) Number of fetu ses:: Single (units unknown) (unknown) (unknown) (no date) (unknown) (unknown) Nutrition and weight gain counseling: special diet: discussed (units unknown) (unknown) (unknown) (no date) (unknown) (unknown) OB Office Visit (uni ts unknown) (unknown) (unknown) (no date) (unknown) (unknown) OB Visit Log (units unknown) (unknown) (unknown) (no date) (unknown) (unknown) Obesity (units unknown) (unknown) (unknown) (no date) (unknown) (unknown) On contr ol at conception?: No (units unknown) (unknown) (unknown) (no date) (unknown) (unknown) Orders (units unknown) (unknown) (unknown) (no date) (unknown) (unknown) Orders: (units unknown) (unknown) (unknown) (no date) (unknown) (unknown) PFSH (units unknown) (unknown) (unknown) (no date) (unknown) (unknown) PTSD (post-tra umatic stress disorder) (-1999) (units unknown) (unknown) (unknown) (no date) (unknown) (unknown) Pain Control: Reports Controlled (units unknown) (unknown) (unknown) (no date) (unknown) (unknown) Painful menstr ual periods (-2019) (units unknown) (unknown) (unknown) (no date) (unknown) (unknown) Pap:: no (units unknown) (unknown) (unknown) (no date) (unknown) (unknown) Para 4 Spontan eous abortions 1 (units unknown) (unknown) (unknown) (no date) (unknown) (unknown) Para: 4 (units unknown) (unknown) (unknown) (no date) (unknown) (unknown) Partner histor y of STD: denies hx (units unknown) (unknown) (unknown) (no date) (unknown) (unknown) Partner histor y of genital herpes: No (units unknown) (unknown) (unknown) (no date) (unknown) (unknown) Partner: [facility] Karo e (units unknown) (unknown) (unknown) (no date) (unknown) (unknown) Past Pregnancies (un its unknown) (unknown) (unknown) (no date) (unknown) (unknown) Patient presen ts accompanied by her children for routine visit at (units unknown) (unknown) (unknown) (no date) (unknown) (unknown) Patient presen ts for a new OB visit at 11 weeks gestation. She has had (units unknown) (unknown) (unknown) (no date) (unknown) (unknown) Patient presen ts for a routine visit at 15 weeks gestation. Cell (units unknown) (unknown) (unknown) (no date) (unknown) (unknown) Patient presen ts for a routine visit at 19 weeks gestation. She (units unknown) (unknown) (unknown) (no date) (unknown) (unknown) Patient presen ts for a routine visit at 28 weeks gestation. She (units unknown) (unknown) (unknown) (no date) (unknown) (unknown) Patient presen ts for a routine visit at 35 weeks 6 days. Good (units unknown) (unknown) (unknown) (no date) (unknown) (unknown) Patient's age 35 years or older as of estimated date of delivery: No (units unknown) (unknown) (unknown) (no date) (unknown) (unknown) Patient: Hardy Cruz MR# (units unknown) (unknown) (unknown) (no date) (unknown) (unknown) Marketing Financial Analyst: [facility] (units unknown) (unknown) (unknown) (no date) (unknown) (unknown) Personal histo ry of STD: denies hx (units unknown) (unknown) (unknown) (no date) (unknown) (unknown) Personal histo ry of genital herpes: No (units unknown) (unknown) (unknown) (no date) (unknown) (unknown) Plan: (units unknown) (unknown) (unknown) (no date) (unknown) (unknown) Planned repeat C/S, 11/24/22 (units unknown) (unknown) (unknown) (no date) (unknown) (unknown) Polyhydramnios (unit s unknown) (unknown) (unknown) (no date) (unknown) (unknown) Position Sitting (un its unknown) (unknown) (unknown) (no date) (unknown) (unknown) Post Or yan Checklist (units unknown) (unknown) (unknown) (no date) (unknown) (unknown) Post (units unknown) (unknown) (unknown) (no date) (unknown) (unknown) Postive screen ing CF (In scans) (units unknown) (unknown) (unknown) (no date) (unknown) (unknown) depressio n (units unknown) (unknown) (unknown) (no date) (unknown) (unknown) Complications: low thyroid (units unknown) (unknown) (unknown) (no date) (unknown) (unknown) History (u nits unknown) (unknown) (unknown) (no date) (unknown) (unknown) type :: Other Normal (units unknown) (unknown) (unknown) (no date) (unknown) (unknown) Education ( units unknown) (unknown) (unknown) (no date) (unknown) (unknown) Initi al Assessment (units unknown) (unknown) (unknown) (no date) (unknown) (unknown) Speci fic Issues/Plans (units unknown) (unknown) (unknown) (no date) (unknown) (unknown) Testi ng: discussed (units unknown) (unknown) (unknown) (no date) (unknown) (unknown) Visit (unit s unknown) (unknown) (unknown) (no date) (unknown) (unknown) educa tion packet: symptoms, Vitamins and iron, Diet and (units unknown) (unknown) (unknown) (no date) (unknown) (unknown) Previous gladys joseph section (units unknown) (unknown) (unknown) (no date) (unknown) (unknown) Primary Care P rovider: [facility] (units unknown) (unknown) (unknown) (no date) (unknown) (unknown) Primary Ob Pro vider: Josefina Baumann (units unknown) (unknown) (unknown) (no date) (unknown) (unknown) Prior GBS-Infe cted child: No (units unknown) (unknown) (unknown) (no date) (unknown) (unknown) Drewisrael Shook 4 (units unknown) (unknown) (unknown) (no date) (unknown) (unknown) Providers (units unknown) (unknown) (unknown) (no date) (unknown) (unknown) ROS (units unknown) (unknown) (unknown) (no date) (unknown) (unknown) RPR pos, TPA negativ e (units unknown) (unknown) (unknown) (no date) (unknown) (unknown) Rash or viral illness since last menstrual period: Yes (minor head cold) (units unknown) (unknown) (unknown) (no date) (unknown) (unknown) Reason For Visit (un its unknown) (unknown) (unknown) (no date) (unknown) (unknown) Recent travel outside of country?: No (units unknown) (unknown) (unknown) (no date) (unknown) (unknown) Recurrent preg baldomero loss or a stillbirth: No (units unknown) (unknown) (unknown) (no date) (unknown) (unknown) Repeat cesarea n section with bilateral salpingectomy (units unknown) (unknown) (unknown) (no date) (unknown) (unknown) Reports Other (Older son undergoing genetic workup for currently unidentified (units unknown) (unknown) (unknown) (no date) (unknown) (unknown) Restless leg syndrom e (units unknown) (unknown) (unknown) (no date) (unknown) (unknown) Safety (units unknown) (unknown) (unknown) (no date) (unknown) (unknown) Sauna/hot tub use, Dental care, Marijuana use, Travel and Influenza vaccine (no (units unknown) (unknown) (unknown) (no date) (unknown) (unknown) She is schedul ed for her repeat section (#4) on 11/24/2022 but has (units unknown) (unknown) (unknown) (no date) (unknown) (unknown) Signed By: <Electronically signed by Josefina Baumann MD> (units unknown) (unknown) (unknown) (no date) (unknown) (unknown) Signed (units unknown) (unknown) (unknown) (no date) (unknown) (unknown) Smoking Status : Former smoker (units unknown) (unknown) (unknown) (no date) (unknown) (unknown) Social History (unit s unknown) (unknown) (unknown) (no date) (unknown) (unknown) Son Hearing loss (un its unknown) (unknown) (unknown) (no date) (unknown) (unknown) [facility] (units unknown) (unknown) (unknown) (no date) (unknown) (unknown) Support Person (s):: [facility] (units unknown) (unknown) (unknown) (no date) (unknown) (unknown) Surgical Histo ry (Updated 07/12/22 @ 15:10 by Josefina Baumann MD) (units unknown) (unknown) (unknown) (no date) (unknown) (unknown) Surrogate preg baldomero?: no (units unknown) (unknown) (unknown) (no date) (unknown) (unknown) Symptoms since LMP: Reports amenorrhea, nausea, fatigue, urinary frequency, (units unknown) (unknown) (unknown) (no date) (unknown) (unknown) TR Yes no 138 30 Breech absent AGA 29w2d (units unknown) (unknown) (unknown) (no date) (unknown) (unknown) TR Yes no 143 26 N/A absent 4 wks (units unknown) (unknown) (unknown) (no date) (unknown) (unknown) TR Yes no 144 21 N/A absent 4 wks (units unknown) (unknown) (unknown) (no date) (unknown) (unknown) TR Yes no 148 36 Vertex absent HUNTER 23.99 c (units unknown) (unknown) (unknown) (no date) (unknown) (unknown) TR Yes no 161 40 Vertex absent GBS HUNTER 18 (units unknown) (unknown) (unknown) (no date) (unknown) (unknown) TSH, free T4 (units unknown) (unknown) (unknown) (no date) (unknown) (unknown) TSH. Discussed TDAP vaccination nv. She had questions regarding anesthesia (units unknown) (unknown) (unknown) (no date) (unknown) (unknown) Tdap, declines flu ( units unknown) (unknown) (unknown) (no date) (unknown) (unknown) Teratogen Expo sures since LMP/Conception: Denies prescription medications, (units unknown) (unknown) (unknown) (no date) (unknown) (unknown) Testing Education (u nits unknown) (unknown) (unknown) (no date) (unknown) (unknown) Testing educat ion completed: group B strep, Spina bifida testing and Cell Free (units unknown) (unknown) (unknown) (no date) (unknown) (unknown) This note may have been all or partially generated using voice recognition (units unknown) (unknown) (unknown) (no date) (unknown) (unknown) Thyroid Stimul ating Hormone 01/05/23 E03.9 - Hypothyroidism, unspecified (units unknown) (unknown) (unknown) (no date) (unknown) (unknown) Thyroid: wallace l; Negative for thyromegaly (units unknown) (unknown) (unknown) (no date) (unknown) (unknown) 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 [place] (units unknown) (unknown) (unknown) (no date) (unknown) (unknown) Tobacco + Subs tance Use (units unknown) (unknown) (unknown) (no date) (unknown) (unknown) Tobacco Status (unit s unknown) (unknown) (unknown) (no date) (unknown) (unknown) Type of Delive ry: repeat C/S (units unknown) (unknown) (unknown) (no date) (unknown) (unknown) Type(s) of exe rcise: walking (units unknown) (unknown) (unknown) (no date) (unknown) (unknown) UProtein Movem ent PreLabor FHR Fndl Ht Pres Edema Cerv Exam US/Comment Next Appt (units unknown) (unknown) (unknown) (no date) (unknown) (unknown) Varicella/chic thien pox status: immunized (units unknown) (unknown) (unknown) (no date) (unknown) (unknown) Visit Date: Last Updated by: Josefina Baumann MD (units unknown) (unknown) (unknown) (no date) (unknown) (unknown) Visit Date: Last Updated by: Josefina Baumann MD (units unknown) (unknown) (unknown) (no date) (unknown) (unknown) Visit Date: Last Updated by: Josefina Baumann MD (units unknown) (unknown) (unknown) (no date) (unknown) (unknown) Visit Date: Last Updated by: Anita Perez P.A-C (units unknown) (unknown) (unknown) (no date) (unknown) (unknown) Visit Date: Last Updated by: Josefina Baumann MD (units unknown) (unknown) (unknown) (no date) (unknown) (unknown) Visit Date: Last Updated by: Josefina Buamann MD (units unknown) (unknown) (unknown) (no date) (unknown) (unknown) Visit Date: Last Updated by: Glen Ojeda MD (units unknown) (unknown) (unknown) (no date) (unknown) (unknown) Visit Date: Last Updated by: Josefina Baumann MD (units unknown) (unknown) (unknown) (no date) (unknown) (unknown) Visit Date: Last Updated by: Glen Ojeda MD (units unknown) (unknown) (unknown) (no date) (unknown) (unknown) Visit Reasons: 6 week PP *no auth reqd (units unknown) (unknown) (unknown) (no date) (unknown) (unknown) Vitals (units unknown) (unknown) (unknown) (no date) (unknown) (unknown) WG (units unknown) (unknown) (unknown) (no date) (unknown) (unknown) Weight 273 lb (units unknown) (unknown) (unknown) (no date) (unknown) (unknown) Roy teeth extract ed (units unknown) (unknown) (unknown) (no date) (unknown) (unknown) Would like pre referral to IBCLC and [facility] grade breast pump at (units unknown) (unknown) (unknown) (no date) (unknown) (unknown) Zika virus exp osure: No (units unknown) (unknown) (unknown) (no date) (unknown) (unknown) additional soc ial history: Difficulty other children. Would (units unknown) (unknown) (unknown) (no date) (unknown) (unknown) alcohol intake: form er (units unknown) (unknown) (unknown) (no date) (unknown) (unknown) anyone in [facility] er family with: (units unknown) (unknown) (unknown) (no date) (unknown) (unknown) attempted, sandeep ble other Lavelle (units unknown) (unknown) (unknown) (no date) (unknown) (unknown) because she velasquez s had difficult spinals with all 3 of her deliveries. (units unknown) (unknown) (unknown) (no date) (unknown) (unknown) bleeding. No r egular contractions. On ultrasound: Breech presentation. HUNTER (units unknown) (unknown) (unknown) (no date) (unknown) (unknown) bloating and o ther (migraine) (units unknown) (unknown) (unknown) (no date) (unknown) (unknown) caffeine: Yes (soft drinks in small quantities, well within 200mg limit) (units unknown) (unknown) (unknown) (no date) (unknown) (unknown) carbon monox d etector in home: Yes (units unknown) (unknown) (unknown) (no date) (unknown) (unknown) cfDNA, normal female (units unknown) (unknown) (unknown) (no date) (unknown) (unknown) conditions, GJ B-2 related conditions, Krabbe Disease, and very long-chain ACYL (units unknown) (unknown) (unknown) (no date) (unknown) (unknown) contractions, bleeding, leakage of fluid per vagina, or change in discharge. (units unknown) (unknown) (unknown) (no date) (unknown) (unknown) contractions. On ultrasound: Vertex presentation. HUNTER 18.54 cm. Grade 0 (units unknown) (unknown) (unknown) (no date) (unknown) (unknown) current occupa tional exposures/hazards: Yes (units unknown) (unknown) (unknown) (no date) (unknown) (unknown) daily servings fruits/ve or more times/day (units unknown) (unknown) (unknown) (no date) (unknown) (unknown) date. (units unknown) (unknown) (unknown) (no date) (unknown) (unknown) decided she do es NOT want sterilization procedure performed at that time. Labor (units unknown) (unknown) (unknown) (no date) (unknown) (unknown) delivery. (units unknown) (unknown) (unknown) (no date) (unknown) (unknown) described, vis it schedule reviewed, ultrasounds policy reviewed, coverage 24 (units unknown) (unknown) (unknown) (no date) (unknown) (unknown) discussed, tuberculosis exposure discussed, CMV discussed, Toxoplasmosis (units unknown) (unknown) (unknown) (no date) (unknown) (unknown) do you feel sa fe at home: Yes (units unknown) (unknown) (unknown) (no date) (unknown) (unknown) double electri c breast pump 1 ea topical .prn #1 ea 11/01/22 [Rx Confirmed (units unknown) (unknown) (unknown) (no date) (unknown) (unknown) during the pas t year weight has: other (wide fluctuations since last ) (units unknown) (unknown) (unknown) (no date) (unknown) (unknown) education leve l: vocational (some college, certificate programs) (units unknown) (unknown) (unknown) (no date) (unknown) (unknown) erm [place] (units unknown) (unknown) (unknown) (no date) (unknown) (unknown) erythema (units unknown) (unknown) (unknown) (no date) (unknown) (unknown) executed today . Labor precautions reviewed and follow-up SHERMAN w/ HUNTER will be in (units unknown) (unknown) (unknown) (no date) (unknown) (unknown) f/u limited an atomy views at 28wk visit with Dr. Baumann. Ordered OGTT, CBC and (units unknown) (unknown) (unknown) (no date) (unknown) (unknown) failure to pro mere Rosey (units unknown) (unknown) (unknown) (no date) (unknown) (unknown) feeling overwh elmed and other (not sleeping well) (units unknown) (unknown) (unknown) (no date) (unknown) (unknown) felt rare feta l movement. No leakage of fluid or vaginal bleeding. Plan: (units unknown) (unknown) (unknown) (no date) (unknown) (unknown) movement . No leakage of fluid or vaginal bleeding. No regular (units unknown) (unknown) (unknown) (no date) (unknown) (unknown) fetoprotein or dered. Warning signs reviewed. Follow-up in 5 weeks. kag (units unknown) (unknown) (unknown) (no date) (unknown) (unknown) fire extinguis her in home: Yes (units unknown) (unknown) (unknown) (no date) (unknown) (unknown) firearms in ho me: Yes firearms unloaded and locked: Yes (units unknown) (unknown) (unknown) (no date) (unknown) (unknown) flaxseed Aller gy (Severe, Verified 02/07/23 08:41) (units unknown) (unknown) (unknown) (no date) (unknown) (unknown) flu or covid v accines received) (units unknown) (unknown) (unknown) (no date) (unknown) (unknown) free DNA showe d normal female. She continues to have migraines several days a (units unknown) (unknown) (unknown) (no date) (unknown) (unknown) from 2 weeks a go and slightly above the normal range for this EGA. HHS form 687 (units unknown) (unknown) (unknown) (no date) (unknown) (unknown) gestational ag e. She is having a few Parker Weinstein contractions but denies (units unknown) (unknown) (unknown) (no date) (unknown) (unknown) grade breast p ump that she can have when she goes home from hospital after (units unknown) (unknown) (unknown) (no date) (unknown) (unknown) had her 20 wee k ultrasound today. Those results are not available. She has (units unknown) (unknown) (unknown) (no date) (unknown) (unknown) had limited he art and outflow tract views from her anatomy US. Plan 3D US and (units unknown) (unknown) (unknown) (no date) (unknown) (unknown) have occurred. If there are any questions, please contact the Medical Records (units unknown) (unknown) (unknown) (no date) (unknown) (unknown) hours a day an d participation of father in care and office visits (units unknown) (unknown) (unknown) (no date) (unknown) (unknown) household memb ers: spouse, family ([id number] and his 3 children (moving out (units unknown) (unknown) (unknown) (no date) (unknown) (unknown) housing: house (unit s unknown) (unknown) (unknown) (no date) (unknown) (unknown) in discharge. Her baby remains active however. HUNTER today is slightly increased (units unknown) (unknown) (unknown) (no date) (unknown) (unknown) is still havin g occasional headaches. Good movement. No leakage of fluid (units unknown) (unknown) (unknown) (no date) (unknown) (unknown) jw (units unknown) (unknown) (unknown) (no date) (unknown) (unknown) kag (units unknown) (unknown) (unknown) (no date) (unknown) (unknown) last pap: 1 ye ar ago, NIL, no hx abnormal (units unknown) (unknown) (unknown) (no date) (unknown) (unknown) levothyroxine 137 mcg tablet 137 mcg PO DAILY #30 tabs 10/17/22 [Rx Confirmed (units unknown) (unknown) (unknown) (no date) (unknown) (unknown) lives independ ently: Yes (units unknown) (unknown) (unknown) (no date) (unknown) (unknown) m 2 wks (units unknown) (unknown) (unknown) (no date) (unknown) (unknown) marital status : (units unknown) (unknown) (unknown) (no date) (unknown) (unknown) may occur. Occ asional wrong-word or 'sound-alike' substitutions may have (units unknown) (unknown) (unknown) (no date) (unknown) (unknown) medication. No vaginal bleeding. On ultrasound: Intrauterine gestational sac (units unknown) (unknown) (unknown) (no date) (unknown) (unknown) meloxicam 7.5 mg tablet 7.5 mg PO DAILY #30 tabs 02/07/23 [Rx Confirmed (units unknown) (unknown) (unknown) (no date) (unknown) (unknown) migraines and these are getting a little better. She is using the prescribed (units unknown) (unknown) (unknown) (no date) (unknown) (unknown) months other Iyla (u nits unknown) (unknown) (unknown) (no date) (unknown) (unknown) number of children: 3 (units unknown) (unknown) (unknown) (no date) (unknown) (unknown) occasional 1 P ercocet to treat these. Plan: 20 week ultrasound ordered. Alpha (units unknown) (unknown) (unknown) (no date) (unknown) (unknown) occupational s tatus: unemployed and previously employed (units unknown) (unknown) (unknown) (no date) (unknown) (unknown) occurred due t o the inherent limitations of voice recognition software. Please (units unknown) (unknown) (unknown) (no date) (unknown) (unknown) or vaginal ble eding. On ultrasound: Breech presentation. AGA 29 weeks 2 days. (units unknown) (unknown) (unknown) (no date) (unknown) (unknown) pets and anima ls: Yes (horses) (units unknown) (unknown) (unknown) (no date) (unknown) (unknown) placenta. Plan : GBS obtained. Follow-up in 1 week. Warning signs reviewed. (units unknown) (unknown) (unknown) (no date) (unknown) (unknown) polyhydramnios (unit s unknown) (unknown) (unknown) (no date) (unknown) (unknown) precautions re viewed and this will be her last visit. (units unknown) (unknown) (unknown) (no date) (unknown) (unknown) precautions, Listeriosis prevention and Rubella Immunization (units unknown) (unknown) (unknown) (no date) (unknown) (unknown) prenat.vits,ca l,min-ir on-folic 1 tab PO DAILY 04/22/22 [History Confirmed (units unknown) (unknown) (unknown) (no date) (unknown) (unknown) read the note carefully and recognize, using context, where these substitutions (units unknown) (unknown) (unknown) (no date) (unknown) (unknown) really like to meet w/ IBCLC prior to delivery and would like Rx for hospital (units unknown) (unknown) (unknown) (no date) (unknown) (unknown) regular uterin e contractions, bleeding, leakage of fluid per vagina, or change (units unknown) (unknown) (unknown) (no date) (unknown) (unknown) reports good f etal movement and denies VB, LOF, contractions and cramping. She (units unknown) (unknown) (unknown) (no date) (unknown) (unknown) reviewed. Will check with paper tester regarding November 24, 2022 a section (units unknown) (unknown) (unknown) (no date) (unknown) (unknown) seatbelt use: always (units unknown) (unknown) (unknown) (no date) (unknown) (unknown) second hand ex posure: No (units unknown) (unknown) (unknown) (no date) (unknown) (unknown) severe polyhyd ramnios; laryngomalacia (units unknown) (unknown) (unknown) (no date) (unknown) (unknown) software. Alth ough every effort is made to edit content, bookbinder chief errors (units unknown) (unknown) (unknown) (no date) (unknown) (unknown) soon)) and children (units unknown) (unknown) (unknown) (no date) (unknown) (unknown) special roland needs: No (units unknown) (unknown) (unknown) (no date) (unknown) (unknown) stress incontinence (units unknown) (unknown) (unknown) (no date) (unknown) (unknown) substance use type: marijuana (in the past, not recently and not while ) (units unknown) (unknown) (unknown) (no date) (unknown) (unknown) tenderness (units unknown) (unknown) (unknown) (no date) (unknown) (unknown) term [place] (units unknown) (unknown) (unknown) (no date) (unknown) (unknown) volume. The he art and outflow tracts could not be visualized. Follow-up in 3 (units unknown) (unknown) (unknown) (no date) (unknown) (unknown) water heater t emp set < 120 deg: Yes (units unknown) (unknown) (unknown) (no date) (unknown) (unknown) week but they are not lasting multiple days and not as intense. She is using an (units unknown) (unknown) (unknown) (no date) (unknown) (unknown) weeks with rep eat ultrasound to check fluid. Warning signs reviewed. (units unknown) (unknown) (unknown) (no date) (unknown) (unknown) weight gain, F yuliet and mercury intake, Caffeine use, Exercise and activity, (units unknown) (unknown) (unknown) (no date) (unknown) (unknown) well-balanced diet: daily or most days (units unknown) (unknown) (unknown) (no date) (unknown) (unknown) with 11 weeks 3 days. Left ovary is normal. Plan: Cell free DNA ordered. (units unknown) (unknown) (unknown) (no date) (unknown) (unknown) with a fetus w ith a crown-rump length measuring 4.63 cm. This is consistent (units unknown) (unknown) (unknown) (no date) (unknown) (unknown) work/environme ntal/[place], Sexual activity, X-ray exposure, Medication use, (units unknown) (unknown) (unknown) (no date) (unknown) (unknown) working smoke detector in home: Yes (units unknown) (unknown) Result panel 8 (unknown) (no date) (unknown) (unknown) (no value) (units unknown) (unknown) (unknown) (no date) (unknown) (unknown) 03/04/23 2225 (units unknown) (unknown) (unknown) (no date) (unknown) (unknown) 1: (units unknown) (unknown) (unknown) (no date) (unknown) (unknown) 39-,1/7 weeks gestation (units unknown) (unknown) (unknown) (no date) (unknown) (unknown) : [id number] (units unknown) (unknown) (unknown) (no date) (unknown) (unknown) score (1 min): 7 (units unknown) (unknown) (unknown) (no date) (unknown) (unknown) score (5 min): 9 (units unknown) (unknown) (unknown) (no date) (unknown) (unknown) Aftercare: rou nilam postop (units unknown) (unknown) (unknown) (no date) (unknown) (unknown) Age/Sex: 32 / F (uni ts unknown) (unknown) (unknown) (no date) (unknown) (unknown) Anesthesia Typ e: Spinal (With Duramorph) (units unknown) (unknown) (unknown) (no date) (unknown) (unknown) Applied: Jennifer marie (To continuous drainage) (units unknown) (unknown) (unknown) (no date) (unknown) (unknown) Sweeper Driver: Robert Crystal (units unknown) (unknown) (unknown) (no date) (unknown) (unknown) Blood products transfused: none (units unknown) (unknown) (unknown) (no date) (unknown) (unknown) Click Yes if Unassisted: No (units unknown) (unknown) (unknown) (no date) (unknown) (unknown) Closure Type: primar y (units unknown) (unknown) (unknown) (no date) (unknown) (unknown) Complications: none (units unknown) (unknown) (unknown) (no date) (unknown) (unknown) Condition: stable (u nits unknown) (unknown) (unknown) (no date) (unknown) (unknown) : 9 Acct:[id number] (units unknown) (unknown) (unknown) (no date) (unknown) (unknown) Date of Servic e: 11/24/22 (units unknown) (unknown) (unknown) (no date) (unknown) (unknown) Date of proced ure: 11/24/22 (units unknown) (unknown) (unknown) (no date) (unknown) (unknown) Disposition: PACU (u nits unknown) (unknown) (unknown) (no date) (unknown) (unknown) Due to the pat ient's obesity, this required extra hands. She assisted with (units unknown) (unknown) (unknown) (no date) (unknown) (unknown) Estimated Bloo d Loss (mL): 350 (units unknown) (unknown) (unknown) (no date) (unknown) (unknown) Cord Ves dante Description: 3 Vessels (units unknown) (unknown) (unknown) (no date) (unknown) (unknown) Position : Right Occiput Anterior (units unknown) (unknown) (unknown) (no date) (unknown) (unknown) Presenta tion: vertex (units unknown) (unknown) (unknown) (no date) (unknown) (unknown) Findings: (units unknown) (unknown) (unknown) (no date) (unknown) (unknown) Indications: (units unknown) (unknown) (unknown) (no date) (unknown) (unknown) Infant Gender: Femal e (units unknown) (unknown) (unknown) (no date) (unknown) (unknown) Intraoperative meds administered: Duramorph, Ketorolac and Pitocin (units unknown) (unknown) (unknown) (no date) (unknown) (unknown) [place] [address] (units unknown) (unknown) (unknown) (no date) (unknown) (unknown) Live female in javy in the MYRTLE presentation (units unknown) (unknown) (unknown) (no date) (unknown) (unknown) Lysis of adhesions ( units unknown) (unknown) (unknown) (no date) (unknown) (unknown) Morbid obesity (unit s unknown) (unknown) (unknown) (no date) (unknown) (unknown) Baby (units unknown) (unknown) (unknown) (no date) (unknown) (unknown) Normal tubes a nd ovaries (units unknown) (unknown) (unknown) (no date) (unknown) (unknown) Omental to ant erior abdominal wall adhesions (units unknown) (unknown) (unknown) (no date) (unknown) (unknown) Operative Date/Time/Diagnoses (units unknown) (unknown) (unknown) (no date) (unknown) (unknown) Operative Note (unit s unknown) (unknown) (unknown) (no date) (unknown) (unknown) Operative Notes (uni ts unknown) (unknown) (unknown) (no date) (unknown) (unknown) Patient: Hardy Cruz MR# (units unknown) (unknown) (unknown) (no date) (unknown) (unknown) Pfannenstiel s kin incision was made through the previous incision and carried (units unknown) (unknown) (unknown) (no date) (unknown) (unknown) [employer] very Description: Expressed (units unknown) (unknown) (unknown) (no date) (unknown) (unknown) Post-op diagno sis: same (units unknown) (unknown) (unknown) (no date) (unknown) (unknown) Post-operative (unit s unknown) (unknown) (unknown) (no date) (unknown) (unknown) Pre-op diagnos is: 39-1/7 weeks gestation (units unknown) (unknown) (unknown) (no date) (unknown) (unknown) Previous gladys joseph section x3 (units unknown) (unknown) (unknown) (no date) (unknown) (unknown) Procedure + Clinicia ns (units unknown) (unknown) (unknown) (no date) (unknown) (unknown) Procedure in detail: (units unknown) (unknown) (unknown) (no date) (unknown) (unknown) Procedure: (units unknown) (unknown) (unknown) (no date) (unknown) (unknown) Provider: Josefina Baumann MD (units unknown) (unknown) (unknown) (no date) (unknown) (unknown) Reason for Sweeper Driver : (units unknown) (unknown) (unknown) (no date) (unknown) (unknown) Repeat low-tra nsverse section (units unknown) (unknown) (unknown) (no date) (unknown) (unknown) Same procedure as scheduled: Yes (units unknown) (unknown) (unknown) (no date) (unknown) (unknown) Signed By:<Electronically signed by Josefina Baumann MD> (units unknown) (unknown) (unknown) (no date) (unknown) (unknown) Specimen(s): c ord blood, cord pH and placenta (units unknown) (unknown) (unknown) (no date) (unknown) (unknown) Surgeon: Ilsa Baumann (units unknown) (unknown) (unknown) (no date) (unknown) (unknown) The hospital medical assistant was necessary to retract upon entry into the abdomen and uterus. (units unknown) (unknown) (unknown) (no date) (unknown) (unknown) The bladder bl kev was reinserted. The lower uterine segment was incised in a (units unknown) (unknown) (unknown) (no date) (unknown) (unknown) The patient to lerated the procedure well, and was taken to PACU in stable (units unknown) (unknown) (unknown) (no date) (unknown) (unknown) The patient wa s taken to the operating room where she was placed in the seated (units unknown) (unknown) (unknown) (no date) (unknown) (unknown) The skin was c losed with 4-0 Monocryl in a subcuticular fashion. Steri-Strips (units unknown) (unknown) (unknown) (no date) (unknown) (unknown) Time of proced ure: 12:08 (units unknown) (unknown) (unknown) (no date) (unknown) (unknown) Traxi drape wa s placed. After spinal analgesia was found to be adequate, a (units unknown) (unknown) (unknown) (no date) (unknown) (unknown) Vicryl in a ru nning fashion. The subcutaneous layer was copiously irrigated (units unknown) (unknown) (unknown) (no date) (unknown) (unknown) all clots and debris. The uterine incision was repaired with #1 chromic in a (units unknown) (unknown) (unknown) (no date) (unknown) (unknown) and RT. The pl acenta was delivered by expression. The uterus was cleared of (units unknown) (unknown) (unknown) (no date) (unknown) (unknown) and the incisi on extended bilaterally with the Coffman scissors. The superior (units unknown) (unknown) (unknown) (no date) (unknown) (unknown) anterior abdom inal wall adhesions were taken down with the Bovie. An Kartik was (units unknown) (unknown) (unknown) (no date) (unknown) (unknown) aspect of the fascial incision was grasped with a Lindsey clamps, elevated, and (units unknown) (unknown) (unknown) (no date) (unknown) (unknown) clots and debr is. The Kartik was removed from the incision. The bladder flap (units unknown) (unknown) (unknown) (no date) (unknown) (unknown) condition. (units unknown) (unknown) (unknown) (no date) (unknown) (unknown) copious amount of clear amniotic fluid (4700cc). The infant's head was (units unknown) (unknown) (unknown) (no date) (unknown) (unknown) delivered with vacuum assistance. The nose and mouth were suctioned with bulb (units unknown) (unknown) (unknown) (no date) (unknown) (unknown) delivery of th e with fundal pressure. She assisted with closure with (units unknown) (unknown) (unknown) (no date) (unknown) (unknown) dissected off sharply and bluntly. The rectus muscles were in the (units unknown) (unknown) (unknown) (no date) (unknown) (unknown) double clamped and cut after 1 minute. The infant was handed off to waiting RN (units unknown) (unknown) (unknown) (no date) (unknown) (unknown) entered sharp y with the Metzenbaum scissors. This incision was extended (units unknown) (unknown) (unknown) (no date) (unknown) (unknown) imgeoff olvera. A swtmid-ab-pymok suture was placed on the right edge of the (units unknown) (unknown) (unknown) (no date) (unknown) (unknown) incision due t o some oozing. Hemostasis was achieved. The tubes and ovaries (units unknown) (unknown) (unknown) (no date) (unknown) (unknown) incision was e xtended bilaterally, and the bladder flap was created digitally. (units unknown) (unknown) (unknown) (no date) (unknown) (unknown) midline. The peritoneum was identified, grasped between 2 hemostats, and (units unknown) (unknown) (unknown) (no date) (unknown) (unknown) placed into th e incision. The vesicouterine peritoneum was identified, grasped (units unknown) (unknown) (unknown) (no date) (unknown) (unknown) position. Spin al anesthesia with Duramorph was administered. The patient was (units unknown) (unknown) (unknown) (no date) (unknown) (unknown) prepped and dr aped in the usual sterile fashion. A timeout was performed. A (units unknown) (unknown) (unknown) (no date) (unknown) (unknown) retraction and clipping a suture. She closed the contralateral fascia. (units unknown) (unknown) (unknown) (no date) (unknown) (unknown) running interl ocking fashion, and a second layer the same suture was used for an (units unknown) (unknown) (unknown) (no date) (unknown) (unknown) small amount o f old blood. Sponge, lap, and instrument counts were correct x-2. (units unknown) (unknown) (unknown) (no date) (unknown) (unknown) suction. The r emainder of the body delivered without difficulty. The cord was (units unknown) (unknown) (unknown) (no date) (unknown) (unknown) superiorly and inferiorly with good visualization of the bladder. Omental to (units unknown) (unknown) (unknown) (no date) (unknown) (unknown) the underlying rectus muscles dissected off sharply and bluntly. Attention was (units unknown) (unknown) (unknown) (no date) (unknown) (unknown) then placed in the dorsal supine position with a leftward tilt. She was (units unknown) (unknown) (unknown) (no date) (unknown) (unknown) then turned to the inferior aspect of this incision which in a similar fashion (units unknown) (unknown) (unknown) (no date) (unknown) (unknown) through to the underlying layer fascia. The fascia was nicked in the midline, (units unknown) (unknown) (unknown) (no date) (unknown) (unknown) to reapproxima te the deep subcutaneous layer. Five simple interrupted sutures (units unknown) (unknown) (unknown) (no date) (unknown) (unknown) transverse fas hion with the scalpel. Upon entering the amniotic sac there was a (units unknown) (unknown) (unknown) (no date) (unknown) (unknown) was grasped wi th a Lindsey clamps, elevated, and the underlying rectus muscles (units unknown) (unknown) (unknown) (no date) (unknown) (unknown) was reapproxim ated with 2-0 Vicryl. The fascia was reapproximated using 0 (units unknown) (unknown) (unknown) (no date) (unknown) (unknown) were examined and were found to be normal. The gutters were cleared of all (units unknown) (unknown) (unknown) (no date) (unknown) (unknown) were placed. A n Aquacel dressing was placed. The uterus was expressed of a (units unknown) (unknown) (unknown) (no date) (unknown) (unknown) with 3-0 Vicry l were placed to reapproximate the superficial subcutaneous layer. (units unknown) (unknown) (unknown) (no date) (unknown) (unknown) with the picku p, and entered sharply with the Metzenbaum scissors. This (units unknown) (unknown) (unknown) (no date) (unknown) (unknown) with warm norm al saline. 5 simple interrupted sutures of 3-0 Vicryl were placed (units unknown) (unknown) Result panel 9 (unknown) (no date) (unknown) (unknown) (no value) (units unknown) (unknown) (unknown) (no date) (unknown) (unknown) 03/06/23 (units unknown) (unknown) (unknown) (no date) (unknown) (unknown) : [id number] (units unknown) (unknown) (unknown) (no date) (unknown) (unknown) ? Denies? (units unknown) (unknown) (unknown) (no date) (unknown) (unknown) ? Acetaminophen - doesn't help (units unknown) (unknown) (unknown) (no date) (unknown) (unknown) ? Antidepressants - celexa - no longer taking (units unknown) (unknown) (unknown) (no date) (unknown) (unknown) ? Antiepileptics - denies (units unknown) (unknown) (unknown) (no date) (unknown) (unknown) ? Mu scle Relaxants - denies (units unknown) (unknown) (unknown) (no date) (unknown) (unknown) ? NS AIDs - naproxen, ibuprofen (units unknown) (unknown) (unknown) (no date) (unknown) (unknown) ? Op ioids - Hydrocodone-acetaminop hen 5-325 mg 1 tab q.6 hours as (units unknown) (unknown) (unknown) (no date) (unknown) (unknown) ? St eroids - denies (units unknown) (unknown) (unknown) (no date) (unknown) (unknown) ? To picals - lidoderm (units unknown) (unknown) (unknown) (no date) (unknown) (unknown) ADHD (units unknown) (unknown) (unknown) (no date) (unknown) (unknown) Additional Soc ial History (units unknown) (unknown) (unknown) (no date) (unknown) (unknown) Age/Sex: 32 / F Date of Service: (units unknown) (unknown) (unknown) (no date) (unknown) (unknown) Aggravating fa ctors include: sitting, chores that require bending (units unknown) (unknown) (unknown) (no date) (unknown) (unknown) Alcoholism (units unknown) (unknown) (unknown) (no date) (unknown) (unknown) All other syst ems reviewed and are unremarkable except as noted in HPI. (units unknown) (unknown) (unknown) (no date) (unknown) (unknown) Allergies (units unknown) (unknown) (unknown) (no date) (unknown) (unknown) [place] [address] (units unknown) (unknown) (unknown) (no date) (unknown) (unknown) Anaphylaxis (units unknown) (unknown) (unknown) (no date) (unknown) (unknown) Anesthesia (units unknown) (unknown) (unknown) (no date) (unknown) (unknown) Attending Dr: Celio Tejada MD (units unknown) (unknown) (unknown) (no date) (unknown) (unknown) Bowel and blad yan: No loss of control (units unknown) (unknown) (unknown) (no date) (unknown) (unknown) Carpal tunnel syndrome (-2018) (units unknown) (unknown) (unknown) (no date) (unknown) (unknown) Chart review: (units unknown) (unknown) (unknown) (no date) (unknown) (unknown) Current VAS: []/10 ( units unknown) (unknown) (unknown) (no date) (unknown) (unknown) Current pain treatments include: (units unknown) (unknown) (unknown) (no date) (unknown) (unknown) : 9 Acct:[id number] (units unknown) (unknown) (unknown) (no date) (unknown) (unknown) 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 (units unknown) (unknown) (unknown) (no date) (unknown) (unknown) Details: (units unknown) (unknown) (unknown) (no date) (unknown) (unknown) Diet and Exercise (u nits unknown) (unknown) (unknown) (no date) (unknown) (unknown) Documented By: Celio Tejada MD 03/06/23 [id number] (units unknown) (unknown) (unknown) (no date) (unknown) (unknown) Draft (units unknown) (unknown) (unknown) (no date) (unknown) (unknown) Family History (Updated 06/08/22 @ 21:23 by Aurora Arevalo) (units unknown) (unknown) (unknown) (no date) (unknown) (unknown) Father Diabete s mellitus (units unknown) (unknown) (unknown) (no date) (unknown) (unknown) Foot pain () (u nits unknown) (unknown) (unknown) (no date) (unknown) (unknown) HPI (units unknown) (unknown) (unknown) (no date) (unknown) (unknown) Heavy menstrua l period () (units unknown) (unknown) (unknown) (no date) (unknown) (unknown) History of polyhydramnios (units unknown) (unknown) (unknown) (no date) (unknown) (unknown) History of surgery ( units unknown) (unknown) (unknown) (no date) (unknown) (unknown) Intake (units unknown) (unknown) (unknown) (no date) (unknown) (unknown) Interval History: (u nits unknown) (unknown) (unknown) (no date) (unknown) (unknown) Intervention:?Date:?Outcome:?? ? (units unknown) (unknown) (unknown) (no date) (unknown) (unknown) Lidocaine patch 5% P RN (units unknown) (unknown) (unknown) (no date) (unknown) (unknown) Loc: PAIN (units unknown) (unknown) (unknown) (no date) (unknown) (unknown) Low back pain (units unknown) (unknown) (unknown) (no date) (unknown) (unknown) MSK: System re viewed and no additional complaints, except as documented. (units unknown) (unknown) (unknown) (no date) (unknown) (unknown) Medical Histor y (Updated 02/07/23 @ 10:11 by Celio Tejada MD) (units unknown) (unknown) (unknown) (no date) (unknown) (unknown) Medications: (units unknown) (unknown) (unknown) (no date) (unknown) (unknown) Mental health proble m (units unknown) (unknown) (unknown) (no date) (unknown) (unknown) Mother Depression (u nits unknown) (unknown) (unknown) (no date) (unknown) (unknown) Nearsightedness (uni ts unknown) (unknown) (unknown) (no date) (unknown) (unknown) Neuro: System reviewed and no additional complaints, except as documented. (units unknown) (unknown) (unknown) (no date) (unknown) (unknown) Numbness/Tingl ing: occasional tingling of the posterior left thigh (units unknown) (unknown) (unknown) (no date) (unknown) (unknown) Onset/Context of linh n: (units unknown) (unknown) (unknown) (no date) (unknown) (unknown) Onset: chronic , worsened after EBP (units unknown) (unknown) (unknown) (no date) (unknown) (unknown) Other: denies (units unknown) (unknown) (unknown) (no date) (unknown) (unknown) PFSH (units unknown) (unknown) (unknown) (no date) (unknown) (unknown) PT: PT schedul ed out for March 2023 at [facility] (units unknown) (unknown) (unknown) (no date) (unknown) (unknown) PTSD (post-tra umatic stress disorder) (-1999) (units unknown) (unknown) (unknown) (no date) (unknown) (unknown) Pain Visit (units unknown) (unknown) (unknown) (no date) (unknown) (unknown) Pain location/Radiation: Across the low back, denies radiation (units unknown) (unknown) (unknown) (no date) (unknown) (unknown) Pain ratin /10 today, 9/10 at worst (units unknown) (unknown) (unknown) (no date) (unknown) (unknown) Painful menstr ual periods (-2019) (units unknown) (unknown) (unknown) (no date) (unknown) (unknown) Past medical, surgical, social, and family history is unchanged from prior (units unknown) (unknown) (unknown) (no date) (unknown) (unknown) Patient was la st seen here on [] (units unknown) (unknown) (unknown) (no date) (unknown) (unknown) Patient: Hardy Cruz MR# (units unknown) (unknown) (unknown) (no date) (unknown) (unknown) Polyhydramnios (unit s unknown) (unknown) (unknown) (no date) (unknown) (unknown) depressio n (units unknown) (unknown) (unknown) (no date) (unknown) (unknown) Previous Visit Assessment: Feliciano is a 32-year-old female presenting for further (units unknown) (unknown) (unknown) (no date) (unknown) (unknown) Previous [facility] section (units unknown) (unknown) (unknown) (no date) (unknown) (unknown) Previous pain treatments included: (units unknown) (unknown) (unknown) (no date) (unknown) (unknown) Quality and ti carly of pain: constant, deep, dull (units unknown) (unknown) (unknown) (no date) (unknown) (unknown) ROS Narrative (units unknown) (unknown) (unknown) (no date) (unknown) (unknown) ROS Narrative: (unit s unknown) (unknown) (unknown) (no date) (unknown) (unknown) ROS (units unknown) (unknown) (unknown) (no date) (unknown) (unknown) Reason For Visit (un its unknown) (unknown) (unknown) (no date) (unknown) (unknown) Red flag symptoms: ( units unknown) (unknown) (unknown) (no date) (unknown) (unknown) Relieving fact ors include: lying down (units unknown) (unknown) (unknown) (no date) (unknown) (unknown) Restless leg syndrom e (units unknown) (unknown) (unknown) (no date) (unknown) (unknown) Saddle anesthe carlos: denies (units unknown) (unknown) (unknown) (no date) (unknown) (unknown) Safety (units unknown) (unknown) (unknown) (no date) (unknown) (unknown) Signed By: (units unknown) (unknown) (unknown) (no date) (unknown) (unknown) Smoking Status : Former smoker (units unknown) (unknown) (unknown) (no date) (unknown) (unknown) Social History (unit s unknown) (unknown) (unknown) (no date) (unknown) (unknown) Son Hearing loss (un its unknown) (unknown) (unknown) (no date) (unknown) (unknown) Standing: limi hanny due to pain (units unknown) (unknown) (unknown) (no date) (unknown) (unknown) Surgery: denies (uni ts unknown) (unknown) (unknown) (no date) (unknown) (unknown) Surgical Histo ry (Updated 07/12/22 @ 15:10 by Josefina Baumann MD) (units unknown) (unknown) (unknown) (no date) (unknown) (unknown) [facility] (units unknown) (unknown) (unknown) (no date) (unknown) (unknown) This note may have been all or partially generated using voice recognition (units unknown) (unknown) (unknown) (no date) (unknown) (unknown) Tobacco + Subs tance Use (units unknown) (unknown) (unknown) (no date) (unknown) (unknown) Tobacco Status (unit s unknown) (unknown) (unknown) (no date) (unknown) (unknown) Today I have r eviewed available medical information in the patient's medical (units unknown) (unknown) (unknown) (no date) (unknown) (unknown) Type(s) of exe rcise: walking (units unknown) (unknown) (unknown) (no date) (unknown) (unknown) Visit Reasons: Follow Up LSpine/ED Visit @[facility]/XR Results (units unknown) (unknown) (unknown) (no date) (unknown) (unknown) Walking: walks slower due to pain (units unknown) (unknown) (unknown) (no date) (unknown) (unknown) [place] Prescription Monitoring Program (COMMERCIAL REAL ESTATE AGENT) was reviewed. (units unknown) (unknown) (unknown) (no date) (unknown) (unknown) Weakness: denies (un its unknown) (unknown) (unknown) (no date) (unknown) (unknown) Roy teeth extract ed (units unknown) (unknown) (unknown) (no date) (unknown) (unknown) a long-term me dication and other NSAIDs should be avoided while on meloxicam.' (units unknown) (unknown) (unknown) (no date) (unknown) (unknown) additional soc ial history: Difficulty other children. Would (units unknown) (unknown) (unknown) (no date) (unknown) (unknown) alcohol intake: form er (units unknown) (unknown) (unknown) (no date) (unknown) (unknown) and we discuss ed taking this for up to several months.? This is not meant to be (units unknown) (unknown) (unknown) (no date) (unknown) (unknown) arthropathy an d myofascial pain.? I do not feel there is a radicular component (units unknown) (unknown) (unknown) (no date) (unknown) (unknown) back pain and a history of herniated disc in the lumbar spine.? She reports (units unknown) (unknown) (unknown) (no date) (unknown) (unknown) bulge at L5-S1 without central canal or neuroforaminal stenosis.? There is also (units unknown) (unknown) (unknown) (no date) (unknown) (unknown) caffeine: Yes (soft drinks in small quantities, well within 200mg limit) (units unknown) (unknown) (unknown) (no date) (unknown) (unknown) carbon monox d etector in home: Yes (units unknown) (unknown) (unknown) (no date) (unknown) (unknown) changes.? Last ly, there is evidence of multilevel facet hypertrophy.? Lumbar x (units unknown) (unknown) (unknown) (no date) (unknown) (unknown) current occupa tional exposures/hazards: Yes (units unknown) (unknown) (unknown) (no date) (unknown) (unknown) daily servings fruits/ve or more times/day (units unknown) (unknown) (unknown) (no date) (unknown) (unknown) delivery. (units unknown) (unknown) (unknown) (no date) (unknown) (unknown) do you feel sa fe at home: Yes (units unknown) (unknown) (unknown) (no date) (unknown) (unknown) during the pas t year weight has: other (wide fluctuations since last ) (units unknown) (unknown) (unknown) (no date) (unknown) (unknown) education leve l: vocational (some college, certificate programs) (units unknown) (unknown) (unknown) (no date) (unknown) (unknown) evaluation of acute on chronic low back pain.? She reports long history of low (units unknown) (unknown) (unknown) (no date) (unknown) (unknown) evidence of degenerative disc disease at L4-5 and L5-S1 as well as Modic (units unknown) (unknown) (unknown) (no date) (unknown) (unknown) fire extinguis her in home: Yes (units unknown) (unknown) (unknown) (no date) (unknown) (unknown) firearms in ho me: Yes firearms unloaded and locked: Yes (units unknown) (unknown) (unknown) (no date) (unknown) (unknown) flaxseed Aller gy (Severe, Verified 02/07/23 08:41) (units unknown) (unknown) (unknown) (no date) (unknown) (unknown) grade breast p ump that she can have when she goes home from hospital after (units unknown) (unknown) (unknown) (no date) (unknown) (unknown) have occurred. If there are any questions, please contact the Medical Records (units unknown) (unknown) (unknown) (no date) (unknown) (unknown) household memb ers: spouse, family ([id number] and his 3 children (moving out (units unknown) (unknown) (unknown) (no date) (unknown) (unknown) housing: house (unit s unknown) (unknown) (unknown) (no date) (unknown) (unknown) intravenous dr ug use, sustained glucocorticoid use, osteoporosis, or a focal (units unknown) (unknown) (unknown) (no date) (unknown) (unknown) is likely multifactorial including components of vertebrogenic, facet (units unknown) (unknown) (unknown) (no date) (unknown) (unknown) lives independ ently: Yes (units unknown) (unknown) (unknown) (no date) (unknown) (unknown) marital status : (units unknown) (unknown) (unknown) (no date) (unknown) (unknown) may occur. Occ asional wrong-word or 'sound-alike' substitutions may have (units unknown) (unknown) (unknown) (no date) (unknown) (unknown) needed - given by recent ED visit (units unknown) (unknown) (unknown) (no date) (unknown) (unknown) neurological d eficit with progressive or disabling symptoms. (units unknown) (unknown) (unknown) (no date) (unknown) (unknown) number of children: 3 (units unknown) (unknown) (unknown) (no date) (unknown) (unknown) occupational s tatus: unemployed and previously employed (units unknown) (unknown) (unknown) (no date) (unknown) (unknown) occurred due t o the inherent limitations of voice recognition software. Please (units unknown) (unknown) (unknown) (no date) (unknown) (unknown) or immunosuppr essive therapy, previous or current cancer diagnosis, history of (units unknown) (unknown) (unknown) (no date) (unknown) (unknown) pets and anima ls: Yes (horses) (units unknown) (unknown) (unknown) (no date) (unknown) (unknown) rays had not b een performed at the time of this evaluation.? Her low back pain (units unknown) (unknown) (unknown) (no date) (unknown) (unknown) read the note carefully and recognize, using context, where these substitutions (units unknown) (unknown) (unknown) (no date) (unknown) (unknown) really like to meet w/ [facility] prior to delivery and would like Rx for hospital (units unknown) (unknown) (unknown) (no date) (unknown) (unknown) record, includ ing relevant provider notes, laboratory work, and imaging. (units unknown) (unknown) (unknown) (no date) (unknown) (unknown) seatbelt use: always (units unknown) (unknown) (unknown) (no date) (unknown) (unknown) second hand ex posure: No (units unknown) (unknown) (unknown) (no date) (unknown) (unknown) software. Alth ough every effort is made to edit content, bookbinder chief errors (units unknown) (unknown) (unknown) (no date) (unknown) (unknown) soon)) and children (units unknown) (unknown) (unknown) (no date) (unknown) (unknown) special roland needs: No (units unknown) (unknown) (unknown) (no date) (unknown) (unknown) starting physi alexey therapy and nonsteroidal medications.? Meloxicam was ordered (units unknown) (unknown) (unknown) (no date) (unknown) (unknown) substance use type: marijuana (in the past, not recently and not while ) (units unknown) (unknown) (unknown) (no date) (unknown) (unknown) to her pain at this time.? Conservative management was encouraged including (units unknown) (unknown) (unknown) (no date) (unknown) (unknown) visit. (units unknown) (unknown) (unknown) (no date) (unknown) (unknown) water heater t emp set < 120 deg: Yes (units unknown) (unknown) (unknown) (no date) (unknown) (unknown) well-balanced diet: daily or most days (units unknown) (unknown) (unknown) (no date) (unknown) (unknown) working smoke detector in home: Yes (units unknown) (unknown) (unknown) (no date) (unknown) (unknown) worsening of h er pain status post epidural blood patch.? MRI showed slight disc (units unknown) (unknown) Result panel 10 (unknown) (no date) (unknown) (unknown) (no value) (units unknown) (unknown) (unknown) (no date) (unknown) (unknown) (0=absent, 1=s light response, 2=brisk/normal, 3=very brisk, 4=clonus) (units unknown) (unknown) (unknown) (no date) (unknown) (unknown) (segments are from the International Standards for Neurological Classification (units unknown) (unknown) (unknown) (no date) (unknown) (unknown) - Activity: Co ntinue activity as tolerated. [] (units unknown) (unknown) (unknown) (no date) (unknown) (unknown) - Chiropractor , acupuncture[] (units unknown) (unknown) (unknown) (no date) (unknown) (unknown) - Continues cl inician directed home exercise program including exercises learned (units unknown) (unknown) (unknown) (no date) (unknown) (unknown) - Education: C auda equina and associated symptoms, including motor weakness, (units unknown) (unknown) (unknown) (no date) (unknown) (unknown) - FADIR: Negat katelyn bilaterally (units unknown) (unknown) (unknown) (no date) (unknown) (unknown) - Follow-up: [] (uni ts unknown) (unknown) (unknown) (no date) (unknown) (unknown) - Hip ROM is: Within normal limits (units unknown) (unknown) (unknown) (no date) (unknown) (unknown) - I discussed risks, benefits and side effects. Additionally, patient was (units unknown) (unknown) (unknown) (no date) (unknown) (unknown) - Imaging: No new imaging indicated at this time. [] (units unknown) (unknown) (unknown) (no date) (unknown) (unknown) - Interventional/Surgica l procedures: None indicated at this time. [] (units unknown) (unknown) (unknown) (no date) (unknown) (unknown) - Lumbar facet loading: Positive bilaterally (units unknown) (unknown) (unknown) (no date) (unknown) (unknown) - Medications: No new prescription at this time. Patient will continue current (units unknown) (unknown) (unknown) (no date) (unknown) (unknown) - Medications: acetaminophen, NSAIDS, neuropathics, muscle relaxants [] (units unknown) (unknown) (unknown) (no date) (unknown) (unknown) - Physical The rapy: Completed 6 week course in the last 6 months OR Patient (units unknown) (unknown) (unknown) (no date) (unknown) (unknown) - Physical therapy/modalities/DME : Patient will likely benefit from physical (units unknown) (unknown) (unknown) (no date) (unknown) (unknown) - Prescription provided and uptitration instructions given if necessary. [] (units unknown) (unknown) (unknown) (no date) (unknown) (unknown) - Previous [] on [] provided []% relief of pain for the expected duration of the (units unknown) (unknown) (unknown) (no date) (unknown) (unknown) - Referrals: N one indicated at this time. [] (units unknown) (unknown) (unknown) (no date) (unknown) (unknown) - SIJ provocat ion testing: Negative bilaterally (units unknown) (unknown) (unknown) (no date) (unknown) (unknown) - Straight Leg Raise: Negative bilaterally (units unknown) (unknown) (unknown) (no date) (unknown) (unknown) 03/06/23 (units unknown) (unknown) (unknown) (no date) (unknown) (unknown) : [id number] (units unknown) (unknown) (unknown) (no date) (unknown) (unknown) ? Denies? (units unknown) (unknown) (unknown) (no date) (unknown) (unknown) ? Inspection - ? No gross appendicular or axial deformities (units unknown) (unknown) (unknown) (no date) (unknown) (unknown) ? Palpation -tenderness to palpation midline low back (units unknown) (unknown) (unknown) (no date) (unknown) (unknown) ? ROM -lumbar extension limited due to pain (units unknown) (unknown) (unknown) (no date) (unknown) (unknown) ? Special tests (uni ts unknown) (unknown) (unknown) (no date) (unknown) (unknown) ? Acetaminophen - doesn't help (units unknown) (unknown) (unknown) (no date) (unknown) (unknown) ? Antidepressants - celexa - no longer taking (units unknown) (unknown) (unknown) (no date) (unknown) (unknown) ? Antiepileptics - denies (units unknown) (unknown) (unknown) (no date) (unknown) (unknown) ? Mu scle Relaxants - denies (units unknown) (unknown) (unknown) (no date) (unknown) (unknown) ? NS AIDs - naproxen, ibuprofen (units unknown) (unknown) (unknown) (no date) (unknown) (unknown) ? Op ioids - Hydrocodone-acetaminop hen 5-325 mg 1 tab q.6 hours as (units unknown) (unknown) (unknown) (no date) (unknown) (unknown) ? St eroids - denies (units unknown) (unknown) (unknown) (no date) (unknown) (unknown) ? To picals - lidoderm (units unknown) (unknown) (unknown) (no date) (unknown) (unknown) ADHD (units unknown) (unknown) (unknown) (no date) (unknown) (unknown) Additional Soc ial History (units unknown) (unknown) (unknown) (no date) (unknown) (unknown) Age/Sex: 32 / F Date of Service: (units unknown) (unknown) (unknown) (no date) (unknown) (unknown) Aggravating fa ctors include: sitting, chores that require bending (units unknown) (unknown) (unknown) (no date) (unknown) (unknown) Alcoholism (units unknown) (unknown) (unknown) (no date) (unknown) (unknown) All other syst ems reviewed and are unremarkable except as noted in HPI. (units unknown) (unknown) (unknown) (no date) (unknown) (unknown) Allergies (units unknown) (unknown) (unknown) (no date) (unknown) (unknown) [place] [address] (units unknown) (unknown) (unknown) (no date) (unknown) (unknown) Anaphylaxis (units unknown) (unknown) (unknown) (no date) (unknown) (unknown) Anesthesia (units unknown) (unknown) (unknown) (no date) (unknown) (unknown) Assessment + Plan (u nits unknown) (unknown) (unknown) (no date) (unknown) (unknown) Assessment: (units unknown) (unknown) (unknown) (no date) (unknown) (unknown) Attending Dr: Celio Tejada MD (units unknown) (unknown) (unknown) (no date) (unknown) (unknown) [facility] Abby ngoing Downgoing (units unknown) (unknown) (unknown) (no date) (unknown) (unknown) Bowel and blad yan: No loss of control (units unknown) (unknown) (unknown) (no date) (unknown) (unknown) Carpal tunnel syndrome (-2018) (units unknown) (unknown) (unknown) (no date) (unknown) (unknown) Chart review: (units unknown) (unknown) (unknown) (no date) (unknown) (unknown) Chief Complaint (uni ts unknown) (unknown) (unknown) (no date) (unknown) (unknown) Chief Complain t: Low back pain (units unknown) (unknown) (unknown) (no date) (unknown) (unknown) Clonus None None (un its unknown) (unknown) (unknown) (no date) (unknown) (unknown) Conservative management includes: (units unknown) (unknown) (unknown) (no date) (unknown) (unknown) Continue [facility] physical therapy. [] (units unknown) (unknown) (unknown) (no date) (unknown) (unknown) Continue home exercise program. 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 (units unknown) (unknown) (unknown) (no date) (unknown) (unknown) Details: (units unknown) (unknown) (unknown) (no date) (unknown) (unknown) Diet and Exercise (u nits unknown) (unknown) (unknown) (no date) (unknown) (unknown) Documented By: Celio Tejada MD 03/06/23 1543 (units unknown) (unknown) (unknown) (no date) (unknown) (unknown) Draft (units unknown) (unknown) (unknown) (no date) (unknown) (unknown) Exam Narrative (unit s unknown) (unknown) (unknown) (no date) (unknown) (unknown) Exam Narrative: (uni ts unknown) (unknown) (unknown) (no date) (unknown) (unknown) Exam (units unknown) (unknown) (unknown) (no date) (unknown) (unknown) Family History (Updated 06/08/22 @ 21:23 by Aurora Arevalo) (units unknown) (unknown) (unknown) (no date) (unknown) (unknown) Father Diabete s mellitus (units unknown) (unknown) (unknown) (no date) (unknown) (unknown) Foot pain () (u nits unknown) (unknown) (unknown) (no date) (unknown) (unknown) Gait/Station - Non-antalgic gait. Heel/toe walking intact. Tandem gait normal (units unknown) (unknown) (unknown) (no date) (unknown) (unknown) General: Well-nourished, well-developed, female in no acute distress (units unknown) (unknown) (unknown) (no date) (unknown) (unknown) HPI (units unknown) (unknown) (unknown) (no date) (unknown) (unknown) Heavy menstrua l period () (units unknown) (unknown) (unknown) (no date) (unknown) (unknown) History of polyhydramnios (units unknown) (unknown) (unknown) (no date) (unknown) (unknown) History of surgery ( units unknown) (unknown) (unknown) (no date) (unknown) (unknown) Intake (units unknown) (unknown) (unknown) (no date) (unknown) (unknown) Interval History: (u nits unknown) (unknown) (unknown) (no date) (unknown) (unknown) Intervention:?Date:?Outcome:?? ? (units unknown) (unknown) (unknown) (no date) (unknown) (unknown) JUSTIFICATION OF MEDICAL NECESSITY (units unknown) (unknown) (unknown) (no date) (unknown) (unknown) L-spine/T-spin e/C-spin e MRI ordered to better delineate the anatomy and help (units unknown) (unknown) (unknown) (no date) (unknown) (unknown) L2 Hip Flexion 5/5 5/5? (units unknown) (unknown) (unknown) (no date) (unknown) (unknown) L3 Knee Extens ion 5/5 5/5 (units unknown) (unknown) (unknown) (no date) (unknown) (unknown) L3-4 Patella 2+ 2 (u nits unknown) (unknown) (unknown) (no date) (unknown) (unknown) L4 Ankle Dorsi flexion 5/5 5/5 (units unknown) (unknown) (unknown) (no date) (unknown) (unknown) L5 Long Toe Ex tension 5/5 5/5 (units unknown) (unknown) (unknown) (no date) (unknown) (unknown) Lidocaine patch 5% P RN (units unknown) (unknown) (unknown) (no date) (unknown) (unknown) Loc: PAIN (units unknown) (unknown) (unknown) (no date) (unknown) (unknown) Low back pain (units unknown) (unknown) (unknown) (no date) (unknown) (unknown) MSK: System re viewed and no additional complaints, except as documented. (units unknown) (unknown) (unknown) (no date) (unknown) (unknown) Medical Histor y (Updated 02/07/23 @ 10:11 by Celio Tejada MD) (units unknown) (unknown) (unknown) (no date) (unknown) (unknown) Medications: (units unknown) (unknown) (unknown) (no date) (unknown) (unknown) Mental health proble m (units unknown) (unknown) (unknown) (no date) (unknown) (unknown) Mild degenerat katelyn changes of L4-5 and L5-S1. (units unknown) (unknown) (unknown) (no date) (unknown) (unknown) Mother Depression (u nits unknown) (unknown) (unknown) (no date) (unknown) (unknown) Motor (units unknown) (unknown) (unknown) (no date) (unknown) (unknown) Musculoskeletal: (un its unknown) (unknown) (unknown) (no date) (unknown) (unknown) Nearsightedness (uni ts unknown) (unknown) (unknown) (no date) (unknown) (unknown) Neuro: System reviewed and no additional complaints, except as documented. (units unknown) (unknown) (unknown) (no date) (unknown) (unknown) Neurologic: (units unknown) (unknown) (unknown) (no date) (unknown) (unknown) No evidence of acute bony abnormality of the left foot. (units unknown) (unknown) (unknown) (no date) (unknown) (unknown) Not indicated at this time. [] (units unknown) (unknown) (unknown) (no date) (unknown) (unknown) Numbness/Tingl ing: occasional tingling of the posterior left thigh (units unknown) (unknown) (unknown) (no date) (unknown) (unknown) Objective Data (unit s unknown) (unknown) (unknown) (no date) (unknown) (unknown) Objective Data: (uni ts unknown) (unknown) (unknown) (no date) (unknown) (unknown) Onset/Context of linh n: (units unknown) (unknown) (unknown) (no date) (unknown) (unknown) Onset: chronic , worsened after EBP (units unknown) (unknown) (unknown) (no date) (unknown) (unknown) Other: denies (units unknown) (unknown) (unknown) (no date) (unknown) (unknown) PFSH (units unknown) (unknown) (unknown) (no date) (unknown) (unknown) PT: PT schedul ed out for March 2023 at [facility] (units unknown) (unknown) (unknown) (no date) (unknown) (unknown) PTSD (post-tra umatic stress disorder) (-1999) (units unknown) (unknown) (unknown) (no date) (unknown) (unknown) Pain Visit (units unknown) (unknown) (unknown) (no date) (unknown) (unknown) Pain location/Radiation: Across the low back, denies radiation (units unknown) (unknown) (unknown) (no date) (unknown) (unknown) Pain ratin /10 today, 9/10 at worst (units unknown) (unknown) (unknown) (no date) (unknown) (unknown) Painful menstr ual periods (-2020) (units unknown) (unknown) (unknown) (no date) (unknown) (unknown) Past medical, surgical, social, and family history is unchanged from prior (units unknown) (unknown) (unknown) (no date) (unknown) (unknown) Patient was neal mohan seen here on 02/07/2023. Since this time she has been seen in (units unknown) (unknown) (unknown) (no date) (unknown) (unknown) Patient will r eturn for []. Risks and benefits were discussed. (units unknown) (unknown) (unknown) (no date) (unknown) (unknown) Patient's pain has been present for >6 weeks and is an average of >6/10 on 0-10 (units unknown) (unknown) (unknown) (no date) (unknown) (unknown) Patient: Hardy Cruz C MR# (units unknown) (unknown) (unknown) (no date) (unknown) (unknown) Plan (units unknown) (unknown) (unknown) (no date) (unknown) (unknown) Plan/Recommendations : (units unknown) (unknown) (unknown) (no date) (unknown) (unknown) Polyhydramnios (unit s unknown) (unknown) (unknown) (no date) (unknown) (unknown) depressio n (units unknown) (unknown) (unknown) (no date) (unknown) (unknown) Prescriptions Written: [] (units unknown) (unknown) (unknown) (no date) (unknown) (unknown) Previous Visit Assessment: Feliciano is a 32-year-old female presenting for further (units unknown) (unknown) (unknown) (no date) (unknown) (unknown) Previous [facility] section (units unknown) (unknown) (unknown) (no date) (unknown) (unknown) Previous pain treatments included: (units unknown) (unknown) (unknown) (no date) (unknown) (unknown) Psych: Appropr iate affect, answers questions appropriately (units unknown) (unknown) (unknown) (no date) (unknown) (unknown) Quality and ti carly of pain: constant, deep, dull (units unknown) (unknown) (unknown) (no date) (unknown) (unknown) ROS Narrative (units unknown) (unknown) (unknown) (no date) (unknown) (unknown) ROS Narrative: (unit s unknown) (unknown) (unknown) (no date) (unknown) (unknown) ROS (units unknown) (unknown) (unknown) (no date) (unknown) (unknown) Reason For Visit (un its unknown) (unknown) (unknown) (no date) (unknown) (unknown) Red flag symptoms: ( units unknown) (unknown) (unknown) (no date) (unknown) (unknown) Reflex Right Left (u nits unknown) (unknown) (unknown) (no date) (unknown) (unknown) Reflexes: (units unknown) (unknown) (unknown) (no date) (unknown) (unknown) Relieving fact ors include: lying down (units unknown) (unknown) (unknown) (no date) (unknown) (unknown) Respiratory: Non-labored breathing pattern on RA. No respiratory distress (units unknown) (unknown) (unknown) (no date) (unknown) (unknown) Restless leg syndrom e (units unknown) (unknown) (unknown) (no date) (unknown) (unknown) S1 Ankle Plantarflexion 5/5 5/5 (units unknown) (unknown) (unknown) (no date) (unknown) (unknown) S1-2 Achilles 2+ 2 ( units unknown) (unknown) (unknown) (no date) (unknown) (unknown) Saddle anesthe carlos: denies (units unknown) (unknown) (unknown) (no date) (unknown) (unknown) Safety (units unknown) (unknown) (unknown) (no date) (unknown) (unknown) Segment Action Right Left (units unknown) (unknown) (unknown) (no date) (unknown) (unknown) Segment Reflex Right Left (units unknown) (unknown) (unknown) (no date) (unknown) (unknown) Sensory -? Int act to light touch of bilateral lower extremities. Allodynia (units unknown) (unknown) (unknown) (no date) (unknown) (unknown) Signed By: (units unknown) (unknown) (unknown) (no date) (unknown) (unknown) Skin: No appre ciable rashes or skin breakdown (units unknown) (unknown) (unknown) (no date) (unknown) (unknown) Smoking Status : Former smoker (units unknown) (unknown) (unknown) (no date) (unknown) (unknown) Social History (unit s unknown) (unknown) (unknown) (no date) (unknown) (unknown) Son Hearing loss (un its unknown) (unknown) (unknown) (no date) (unknown) (unknown) Standing: limi hanny due to pain (units unknown) (unknown) (unknown) (no date) (unknown) (unknown) Surgery: denies (uni ts unknown) (unknown) (unknown) (no date) (unknown) (unknown) Surgical Histo ry (Updated 07/12/22 @ 15:10 by Josefina Baumnan MD) (units unknown) (unknown) (unknown) (no date) (unknown) (unknown) [facility] (units unknown) (unknown) (unknown) (no date) (unknown) (unknown) This note may have been all or partially generated using voice recognition (units unknown) (unknown) (unknown) (no date) (unknown) (unknown) Tobacco + Subs tance Use (units unknown) (unknown) (unknown) (no date) (unknown) (unknown) Tobacco Status (unit s unknown) (unknown) (unknown) (no date) (unknown) (unknown) Today I have r eviewed available medical information in the patient's medical (units unknown) (unknown) (unknown) (no date) (unknown) (unknown) Type(s) of exe rcise: walking (units unknown) (unknown) (unknown) (no date) (unknown) (unknown) Upper Motor Ne uron Signs: (units unknown) (unknown) (unknown) (no date) (unknown) (unknown) Visit Reasons: Follow Up LSpine/ED Visit @[facility]/XR Results (units unknown) (unknown) (unknown) (no date) (unknown) (unknown) Walking: walks slower due to pain (units unknown) (unknown) (unknown) (no date) (unknown) (unknown) [place] Prescription Monitoring Program (COMMERCIAL REAL ESTATE AGENT) was reviewed. (units unknown) (unknown) (unknown) (no date) (unknown) (unknown) We reviewed et iology, predisposing factor(s), natural course, imaging results as (units unknown) (unknown) (unknown) (no date) (unknown) (unknown) Weakness: denies (un its unknown) (unknown) (unknown) (no date) (unknown) (unknown) Roy teeth extract ed (units unknown) (unknown) (unknown) (no date) (unknown) (unknown) X-ray left verena t 02/25/2023: (units unknown) (unknown) (unknown) (no date) (unknown) (unknown) X-ray lumbar s pine 02/25/2023: (units unknown) (unknown) (unknown) (no date) (unknown) (unknown) a long-term me dication and other NSAIDs should be avoided while on meloxicam.' (units unknown) (unknown) (unknown) (no date) (unknown) (unknown) additional soc ial history: Difficulty other children. Would (units unknown) (unknown) (unknown) (no date) (unknown) (unknown) alcohol intake: form er (units unknown) (unknown) (unknown) (no date) (unknown) (unknown) and Kenalog. H er 2nd visit was on 03/05/2023 for acute on chronic low back (units unknown) (unknown) (unknown) (no date) (unknown) (unknown) and we discuss ed taking this for up to several months.? This is not meant to be (units unknown) (unknown) (unknown) (no date) (unknown) (unknown) arthropathy an d myofascial pain.? I do not feel there is a radicular component (units unknown) (unknown) (unknown) (no date) (unknown) (unknown) back pain and a history of herniated disc in the lumbar spine.? She reports (units unknown) (unknown) (unknown) (no date) (unknown) (unknown) benefits of va rious treatment options were discussed with the patient in great (units unknown) (unknown) (unknown) (no date) (unknown) (unknown) bowel/bladder dysfunction, and perineal numbness were discussed. The patient was (units unknown) (unknown) (unknown) (no date) (unknown) (unknown) bulge at L5-S1 without central canal or neuroforaminal stenosis.? There is also (units unknown) (unknown) (unknown) (no date) (unknown) (unknown) caffeine: Yes (soft drinks in small quantities, well within 200mg limit) (units unknown) (unknown) (unknown) (no date) (unknown) (unknown) cannot tolerat e physical therapy at the current time due to the intensity of the (units unknown) (unknown) (unknown) (no date) (unknown) (unknown) carbon monox d etector in home: Yes (units unknown) (unknown) (unknown) (no date) (unknown) (unknown) changes.? Last ly, there is evidence of multilevel facet hypertrophy.? Lumbar x (units unknown) (unknown) (unknown) (no date) (unknown) (unknown) current occupa tional exposures/hazards: Yes (units unknown) (unknown) (unknown) (no date) (unknown) (unknown) daily servings fruits/ve or more times/day (units unknown) (unknown) (unknown) (no date) (unknown) (unknown) delivery. (units unknown) (unknown) (unknown) (no date) (unknown) (unknown) detail. (units unknown) (unknown) (unknown) (no date) (unknown) (unknown) do you feel sa fe at home: Yes (units unknown) (unknown) (unknown) (no date) (unknown) (unknown) during the pas t year weight has: other (wide fluctuations since last ) (units unknown) (unknown) (unknown) (no date) (unknown) (unknown) education matt [place] angel: vocational (some college, certificate programs) (units unknown) (unknown) (unknown) (no date) (unknown) (unknown) evaluation of acute on chronic low back pain.? She reports long history of low (units unknown) (unknown) (unknown) (no date) (unknown) (unknown) evidence of degenerative disc disease at L4-5 and L5-S1 as well as Modic (units unknown) (unknown) (unknown) (no date) (unknown) (unknown) fire extinguis her in home: Yes (units unknown) (unknown) (unknown) (no date) (unknown) (unknown) firearms in ho me: Yes firearms unloaded and locked: Yes (units unknown) (unknown) (unknown) (no date) (unknown) (unknown) flaxseed Aller gy (Severe, Verified 02/07/23 08:41) (units unknown) (unknown) (unknown) (no date) (unknown) (unknown) fracture. She had an injection of the 5th tarsal metatarsal area with Marcaine (units unknown) (unknown) (unknown) (no date) (unknown) (unknown) grade breast p ump that she can have when she goes home from hospital after (units unknown) (unknown) (unknown) (no date) (unknown) (unknown) have occurred. If there are any questions, please contact the Medical Records (units unknown) (unknown) (unknown) (no date) (unknown) (unknown) household memb ers: spouse, family ([id number] and his 3 children (moving out (units unknown) (unknown) (unknown) (no date) (unknown) (unknown) housing: house (unit s unknown) (unknown) (unknown) (no date) (unknown) (unknown) improved sleep , improved mobility, etc. (units unknown) (unknown) (unknown) (no date) (unknown) (unknown) in PT. [] (units unknown) (unknown) (unknown) (no date) (unknown) (unknown) instructed to report to the Emergency department, if these symptoms occur. (units unknown) (unknown) (unknown) (no date) (unknown) (unknown) instructed to stop if any side effects. [] (units unknown) (unknown) (unknown) (no date) (unknown) (unknown) intravenous dr ug use, sustained glucocorticoid use, osteoporosis, or a focal (units unknown) (unknown) (unknown) (no date) (unknown) (unknown) is likely multifactorial including components of vertebrogenic, facet (units unknown) (unknown) (unknown) (no date) (unknown) (unknown) lives independ ently: Yes (units unknown) (unknown) (unknown) (no date) (unknown) (unknown) local anesthet ic. During that time patient able to participate in ADLs, had (units unknown) (unknown) (unknown) (no date) (unknown) (unknown) marital status : (units unknown) (unknown) (unknown) (no date) (unknown) (unknown) may occur. Occ asional wrong-word or 'sound-alike' substitutions may have (units unknown) (unknown) (unknown) (no date) (unknown) (unknown) meds. [] (units unknown) (unknown) (unknown) (no date) (unknown) (unknown) needed - given by recent ED visit (units unknown) (unknown) (unknown) (no date) (unknown) (unknown) negative, Hype ralgesia - negative (units unknown) (unknown) (unknown) (no date) (unknown) (unknown) neurological d eficit with progressive or disabling symptoms. (units unknown) (unknown) (unknown) (no date) (unknown) (unknown) number of children: 3 (units unknown) (unknown) (unknown) (no date) (unknown) (unknown) occupational s tatus: unemployed and previously employed (units unknown) (unknown) (unknown) (no date) (unknown) (unknown) occurred due t o the inherent limitations of voice recognition software. Please (units unknown) (unknown) (unknown) (no date) (unknown) (unknown) of Spinal Cord Injur y) (units unknown) (unknown) (unknown) (no date) (unknown) (unknown) or immunosuppr essive therapy, previous or current cancer diagnosis, history of (units unknown) (unknown) (unknown) (no date) (unknown) (unknown) pain. She rece ived Decadron and Toradol in the emergency department. (units unknown) (unknown) (unknown) (no date) (unknown) (unknown) pain. [] (units unknown) (unknown) (unknown) (no date) (unknown) (unknown) pets and anima ls: Yes (horses) (units unknown) (unknown) (unknown) (no date) (unknown) (unknown) rays had not b een performed at the time of this evaluation.? Her low back pain (units unknown) (unknown) (unknown) (no date) (unknown) (unknown) read the note carefully and recognize, using context, where these substitutions (units unknown) (unknown) (unknown) (no date) (unknown) (unknown) really like to meet w/ [facility] prior to delivery and would like Rx for hospital (units unknown) (unknown) (unknown) (no date) (unknown) (unknown) record, includ ing relevant provider notes, laboratory work, and imaging. (units unknown) (unknown) (unknown) (no date) (unknown) (unknown) scale and/or p ain interferes with ADLs. (units unknown) (unknown) (unknown) (no date) (unknown) (unknown) seatbelt use: always (units unknown) (unknown) (unknown) (no date) (unknown) (unknown) second hand ex posure: No (units unknown) (unknown) (unknown) (no date) (unknown) (unknown) software. Alth ough every effort is made to edit content, bookbinder chief errors (units unknown) (unknown) (unknown) (no date) (unknown) (unknown) soon)) and children (units unknown) (unknown) (unknown) (no date) (unknown) (unknown) special roland needs: No (units unknown) (unknown) (unknown) (no date) (unknown) (unknown) starting physi alexey therapy and nonsteroidal medications.? Meloxicam was ordered (units unknown) (unknown) (unknown) (no date) (unknown) (unknown) substance use type: marijuana (in the past, not recently and not while ) (units unknown) (unknown) (unknown) (no date) (unknown) (unknown) the emergency department twice at [facility]. Her 1st visit (units unknown) (unknown) (unknown) (no date) (unknown) (unknown) therapeutic in jections and surgery. The risks, consequences, alternatives and (units unknown) (unknown) (unknown) (no date) (unknown) (unknown) therapy. ?A re ferral was provided for the patient. [] (units unknown) (unknown) (unknown) (no date) (unknown) (unknown) to her pain at this time.? Conservative management was encouraged including (units unknown) (unknown) (unknown) (no date) (unknown) (unknown) visit. (units unknown) (unknown) (unknown) (no date) (unknown) (unknown) was on 023 for left foot pain. X-ray did not show any evidence of acute (units unknown) (unknown) (unknown) (no date) (unknown) (unknown) water heater t emp set < 120 deg: Yes (units unknown) (unknown) (unknown) (no date) (unknown) (unknown) well as treatm ent options including medications, physical therapy/exercise, (units unknown) (unknown) (unknown) (no date) (unknown) (unknown) well-balanced diet: daily or most days (units unknown) (unknown) (unknown) (no date) (unknown) (unknown) with future tr eatment planning. [] (units unknown) (unknown) (unknown) (no date) (unknown) (unknown) without eviden ce of ataxia. Lower quarter stability intact. (units unknown) (unknown) (unknown) (no date) (unknown) (unknown) working smoke detector in home: Yes (units unknown) (unknown) (unknown) (no date) (unknown) (unknown) worsening of h er pain status post epidural blood patch.? MRI showed slight disc (units unknown) (unknown) Result panel 11 (unknown) (no date) (unknown) (unknown) (no value) (units unknown) (unknown) (unknown) (no date) (unknown) (unknown) (0=absent, 1=s light response, 2=brisk/normal, 3=very brisk, 4=clonus) (units unknown) (unknown) (unknown) (no date) (unknown) (unknown) (segments are from the International Standards for Neurological Classification (units unknown) (unknown) (unknown) (no date) (unknown) (unknown) - Activity: Co ntinue activity as tolerated. [] (units unknown) (unknown) (unknown) (no date) (unknown) (unknown) - Chiropractor , acupuncture[] (units unknown) (unknown) (unknown) (no date) (unknown) (unknown) - Continues cl inician directed home exercise program including exercises learned (units unknown) (unknown) (unknown) (no date) (unknown) (unknown) - Education: C auda equina and associated symptoms, including motor weakness, (units unknown) (unknown) (unknown) (no date) (unknown) (unknown) - FADIR: Negat katelyn bilaterally (units unknown) (unknown) (unknown) (no date) (unknown) (unknown) - Follow-up: [] (uni ts unknown) (unknown) (unknown) (no date) (unknown) (unknown) - Hip ROM is: Within normal limits (units unknown) (unknown) (unknown) (no date) (unknown) (unknown) - I discussed risks, benefits and side effects. Additionally, patient was (units unknown) (unknown) (unknown) (no date) (unknown) (unknown) - Imaging: No new imaging indicated at this time. [] (units unknown) (unknown) (unknown) (no date) (unknown) (unknown) - Interventional/Surgica l procedures: None indicated at this time. [] (units unknown) (unknown) (unknown) (no date) (unknown) (unknown) - Lumbar facet loading: Positive bilaterally (units unknown) (unknown) (unknown) (no date) (unknown) (unknown) - Medications: No new prescription at this time. Patient will continue current (units unknown) (unknown) (unknown) (no date) (unknown) (unknown) - Medications: acetaminophen, NSAIDS, neuropathics, muscle relaxants [] (units unknown) (unknown) (unknown) (no date) (unknown) (unknown) - Physical The rapy: Completed 6 week course in the last 6 months OR Patient (units unknown) (unknown) (unknown) (no date) (unknown) (unknown) - Physical therapy/modalities/DME : Patient will likely benefit from physical (units unknown) (unknown) (unknown) (no date) (unknown) (unknown) - Prescription provided and uptitration instructions given if necessary. [] (units unknown) (unknown) (unknown) (no date) (unknown) (unknown) - Previous [] on [] provided []% relief of pain for the expected duration of the (units unknown) (unknown) (unknown) (no date) (unknown) (unknown) - Referrals: N one indicated at this time. [] (units unknown) (unknown) (unknown) (no date) (unknown) (unknown) - SIJ provocat ion testing: Negative bilaterally (units unknown) (unknown) (unknown) (no date) (unknown) (unknown) - Straight Leg Raise: Negative bilaterally (units unknown) (unknown) (unknown) (no date) (unknown) (unknown) 03/06/23 (units unknown) (unknown) (unknown) (no date) (unknown) (unknown) 03/09/23] (units unknown) (unknown) (unknown) (no date) (unknown) (unknown) : [id number] (units unknown) (unknown) (unknown) (no date) (unknown) (unknown) ? Denies? (units unknown) (unknown) (unknown) (no date) (unknown) (unknown) ? Inspection - ? No gross appendicular or axial deformities (units unknown) (unknown) (unknown) (no date) (unknown) (unknown) ? Palpation -tenderness to palpation midline low back (units unknown) (unknown) (unknown) (no date) (unknown) (unknown) ? ROM -lumbar extension limited due to pain (units unknown) (unknown) (unknown) (no date) (unknown) (unknown) ? Special tests (uni ts unknown) (unknown) (unknown) (no date) (unknown) (unknown) ? Acetaminophen - doesn't help (units unknown) (unknown) (unknown) (no date) (unknown) (unknown) ? Antidepressants - celexa - no longer taking (units unknown) (unknown) (unknown) (no date) (unknown) (unknown) ? Antiepileptics - denies (units unknown) (unknown) (unknown) (no date) (unknown) (unknown) ? Mu scle Relaxants - denies (units unknown) (unknown) (unknown) (no date) (unknown) (unknown) ? NS AIDs - naproxen, ibuprofen (units unknown) (unknown) (unknown) (no date) (unknown) (unknown) ? Op ioids - Hydrocodone-acetaminop hen 5-325 mg 1 tab q.6 hours as (units unknown) (unknown) (unknown) (no date) (unknown) (unknown) ? St eroids - denies (units unknown) (unknown) (unknown) (no date) (unknown) (unknown) ? To picals - lidoderm (units unknown) (unknown) (unknown) (no date) (unknown) (unknown) ADHD (units unknown) (unknown) (unknown) (no date) (unknown) (unknown) Accompanied by : Self / Same As Patient (units unknown) (unknown) (unknown) (no date) (unknown) (unknown) Additional Soc ial History (units unknown) (unknown) (unknown) (no date) (unknown) (unknown) Age/Sex: 32 / F Date of Service: (units unknown) (unknown) (unknown) (no date) (unknown) (unknown) Aggravating fa ctors include: sitting, chores that require bending (units unknown) (unknown) (unknown) (no date) (unknown) (unknown) Alcoholism (units unknown) (unknown) (unknown) (no date) (unknown) (unknown) All other syst ems reviewed and are unremarkable except as noted in HPI. (units unknown) (unknown) (unknown) (no date) (unknown) (unknown) Allergies (units unknown) (unknown) (unknown) (no date) (unknown) (unknown) [place] [address] (units unknown) (unknown) (unknown) (no date) (unknown) (unknown) Anaphylaxis (units unknown) (unknown) (unknown) (no date) (unknown) (unknown) Anesthesia (units unknown) (unknown) (unknown) (no date) (unknown) (unknown) Assessment + Plan (u nits unknown) (unknown) (unknown) (no date) (unknown) (unknown) Assessment: (units unknown) (unknown) (unknown) (no date) (unknown) (unknown) Attending Dr: Celio Tejada MD (units unknown) (unknown) (unknown) (no date) (unknown) (unknown) [employer] Abby ngoing Downgoing (units unknown) (unknown) (unknown) (no date) (unknown) (unknown) Bowel and blad yan: No loss of control (units unknown) (unknown) (unknown) (no date) (unknown) (unknown) Carpal tunnel syndrome (-2018) (units unknown) (unknown) (unknown) (no date) (unknown) (unknown) Chart review: (units unknown) (unknown) (unknown) (no date) (unknown) (unknown) Chief Complaint (uni ts unknown) (unknown) (unknown) (no date) (unknown) (unknown) Chief Complain t: Low back pain (units unknown) (unknown) (unknown) (no date) (unknown) (unknown) Clonus None None (un its unknown) (unknown) (unknown) (no date) (unknown) (unknown) Conservative management includes: (units unknown) (unknown) (unknown) (no date) (unknown) (unknown) Continue curre physical therapy. [] (units unknown) (unknown) (unknown) (no date) (unknown) (unknown) Continue home exercise program. 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 (units unknown) (unknown) (unknown) (no date) (unknown) (unknown) Details: (units unknown) (unknown) (unknown) (no date) (unknown) (unknown) Diet and Exercise (u nits unknown) (unknown) (unknown) (no date) (unknown) (unknown) Documented By: Celio Tejada MD 03/06/23 1545 (units unknown) (unknown) (unknown) (no date) (unknown) (unknown) Draft (units unknown) (unknown) (unknown) (no date) (unknown) (unknown) Exam Narrative (unit s unknown) (unknown) (unknown) (no date) (unknown) (unknown) Exam Narrative: (uni ts unknown) (unknown) (unknown) (no date) (unknown) (unknown) Exam (units unknown) (unknown) (unknown) (no date) (unknown) (unknown) Family History (Updated 06/08/22 @ 21:23 by Aurora Arevalo) (units unknown) (unknown) (unknown) (no date) (unknown) (unknown) Father Diabete s mellitus (units unknown) (unknown) (unknown) (no date) (unknown) (unknown) Foot pain () (u nits unknown) (unknown) (unknown) (no date) (unknown) (unknown) Gait/Station - Non-antalgic gait. Heel/toe walking intact. Tandem gait normal (units unknown) (unknown) (unknown) (no date) (unknown) (unknown) General: Well-nourished, well-developed, female in no acute distress (units unknown) (unknown) (unknown) (no date) (unknown) (unknown) HPI (units unknown) (unknown) (unknown) (no date) (unknown) (unknown) Heavy menstrua l period () (units unknown) (unknown) (unknown) (no date) (unknown) (unknown) History of polyhydramnios (units unknown) (unknown) (unknown) (no date) (unknown) (unknown) History of surgery ( units unknown) (unknown) (unknown) (no date) (unknown) (unknown) Intake Clinical Staf f (units unknown) (unknown) (unknown) (no date) (unknown) (unknown) Intake Note: (units unknown) (unknown) (unknown) (no date) (unknown) (unknown) Intake perform ed by: Shell Portillo (units unknown) (unknown) (unknown) (no date) (unknown) (unknown) Intake (units unknown) (unknown) (unknown) (no date) (unknown) (unknown) Interval History: (u nits unknown) (unknown) (unknown) (no date) (unknown) (unknown) Intervention:?Date:?Outcome:?? ? (units unknown) (unknown) (unknown) (no date) (unknown) (unknown) JUSTIFICATION OF MEDICAL NECESSITY (units unknown) (unknown) (unknown) (no date) (unknown) (unknown) L-spine/T-spin e/C-spin e MRI ordered to better delineate the anatomy and help (units unknown) (unknown) (unknown) (no date) (unknown) (unknown) L2 Hip Flexion 5/5 5/5? (units unknown) (unknown) (unknown) (no date) (unknown) (unknown) L3 Knee Extens ion 5/5 5/5 (units unknown) (unknown) (unknown) (no date) (unknown) (unknown) L3-4 Patella 2+ 2 (u nits unknown) (unknown) (unknown) (no date) (unknown) (unknown) L4 Ankle Dorsi flexion 5/5 5/5 (units unknown) (unknown) (unknown) (no date) (unknown) (unknown) L5 Long Toe Ex tension 5/5 5/5 (units unknown) (unknown) (unknown) (no date) (unknown) (unknown) Lidocaine patch 5% P RN (units unknown) (unknown) (unknown) (no date) (unknown) (unknown) Loc: PAIN (units unknown) (unknown) (unknown) (no date) (unknown) (unknown) Low back pain (units unknown) (unknown) (unknown) (no date) (unknown) (unknown) MSK: System re viewed and no additional complaints, except as documented. (units unknown) (unknown) (unknown) (no date) (unknown) (unknown) Medical Histor y (Updated 02/07/23 @ 10:11 by Celio Tejada MD) (units unknown) (unknown) (unknown) (no date) (unknown) (unknown) Medications (units unknown) (unknown) (unknown) (no date) (unknown) (unknown) Medications: (units unknown) (unknown) (unknown) (no date) (unknown) (unknown) Mental health proble m (units unknown) (unknown) (unknown) (no date) (unknown) (unknown) Mild degenerat katelyn changes of L4-5 and L5-S1. (units unknown) (unknown) (unknown) (no date) (unknown) (unknown) Mother Depression (u nits unknown) (unknown) (unknown) (no date) (unknown) (unknown) Motor (units unknown) (unknown) (unknown) (no date) (unknown) (unknown) Musculoskeletal: (un its unknown) (unknown) (unknown) (no date) (unknown) (unknown) Nearsightedness (uni ts unknown) (unknown) (unknown) (no date) (unknown) (unknown) Neuro: System reviewed and no additional complaints, except as documented. (units unknown) (unknown) (unknown) (no date) (unknown) (unknown) Neurologic: (units unknown) (unknown) (unknown) (no date) (unknown) (unknown) No evidence of acute bony abnormality of the left foot. (units unknown) (unknown) (unknown) (no date) (unknown) (unknown) Not indicated at this time. [] (units unknown) (unknown) (unknown) (no date) (unknown) (unknown) Numbness/Tingl ing: occasional tingling of the posterior left thigh (units unknown) (unknown) (unknown) (no date) (unknown) (unknown) Objective Data (unit s unknown) (unknown) (unknown) (no date) (unknown) (unknown) Objective Data: (uni ts unknown) (unknown) (unknown) (no date) (unknown) (unknown) Onset/Context of linh n: (units unknown) (unknown) (unknown) (no date) (unknown) (unknown) Onset: chronic , worsened after EBP (units unknown) (unknown) (unknown) (no date) (unknown) (unknown) Other: denies (units unknown) (unknown) (unknown) (no date) (unknown) (unknown) PFSH (units unknown) (unknown) (unknown) (no date) (unknown) (unknown) PT: PT schedul ed out for March 2023 at [facility] (units unknown) (unknown) (unknown) (no date) (unknown) (unknown) PTSD (post-tra umatic stress disorder) (-1999) (units unknown) (unknown) (unknown) (no date) (unknown) (unknown) Pain Visit (units unknown) (unknown) (unknown) (no date) (unknown) (unknown) Pain location/Radiation: Across the low back, denies radiation (units unknown) (unknown) (unknown) (no date) (unknown) (unknown) Pain ratin /10 today, 9/10 at worst (units unknown) (unknown) (unknown) (no date) (unknown) (unknown) Painful menstr ual periods (-2019) (units unknown) (unknown) (unknown) (no date) (unknown) (unknown) Past medical, surgical, social, and family history is unchanged from prior (units unknown) (unknown) (unknown) (no date) (unknown) (unknown) Patient is her e a follow up (units unknown) (unknown) (unknown) (no date) (unknown) (unknown) Patient was neal mohan seen here on 02/07/2023. Since this time she has been seen in (units unknown) (unknown) (unknown) (no date) (unknown) (unknown) Patient will r eturn for []. Risks and benefits were discussed. (units unknown) (unknown) (unknown) (no date) (unknown) (unknown) Patient's pain has been present for >6 weeks and is an average of >6/10 on 0-10 (units unknown) (unknown) (unknown) (no date) (unknown) (unknown) Patient: Hardy Cruz MR# (units unknown) (unknown) (unknown) (no date) (unknown) (unknown) Plan (units unknown) (unknown) (unknown) (no date) (unknown) (unknown) Plan/Recommendations : (units unknown) (unknown) (unknown) (no date) (unknown) (unknown) Polyhydramnios (unit s unknown) (unknown) (unknown) (no date) (unknown) (unknown) depressio n (units unknown) (unknown) (unknown) (no date) (unknown) (unknown) Prescriptions Written: [] (units unknown) (unknown) (unknown) (no date) (unknown) (unknown) Previous Visit Assessment: 'Hardy is a 32-year-old female presenting for further (units unknown) (unknown) (unknown) (no date) (unknown) (unknown) Previous glad[facility] j[facility] section (units unknown) (unknown) (unknown) (no date) (unknown) (unknown) Previous pain treatments included: (units unknown) (unknown) (unknown) (no date) (unknown) (unknown) Psych: Appropr iate affect, answers questions appropriately (units unknown) (unknown) (unknown) (no date) (unknown) (unknown) Quality and ti carly of pain: constant, deep, dull (units unknown) (unknown) (unknown) (no date) (unknown) (unknown) ROS Narrative (units unknown) (unknown) (unknown) (no date) (unknown) (unknown) ROS Narrative: (unit s unknown) (unknown) (unknown) (no date) (unknown) (unknown) ROS (units unknown) (unknown) (unknown) (no date) (unknown) (unknown) Reason For Visit (un its unknown) (unknown) (unknown) (no date) (unknown) (unknown) Red flag symptoms: ( units unknown) (unknown) (unknown) (no date) (unknown) (unknown) Reflex Right Left (u nits unknown) (unknown) (unknown) (no date) (unknown) (unknown) Reflexes: (units unknown) (unknown) (unknown) (no date) (unknown) (unknown) Relieving fact ors include: lying down (units unknown) (unknown) (unknown) (no date) (unknown) (unknown) Respiratory: Non-labored breathing pattern on RA. No respiratory distress (units unknown) (unknown) (unknown) (no date) (unknown) (unknown) Restless leg syndrom e (units unknown) (unknown) (unknown) (no date) (unknown) (unknown) S1 Ankle Plantarflexion 5/5 5/5 (units unknown) (unknown) (unknown) (no date) (unknown) (unknown) S1-2 Achilles 2+ 2 ( units unknown) (unknown) (unknown) (no date) (unknown) (unknown) Saddle anesthe carlos: denies (units unknown) (unknown) (unknown) (no date) (unknown) (unknown) Safety (units unknown) (unknown) (unknown) (no date) (unknown) (unknown) Segment Action Right Left (units unknown) (unknown) (unknown) (no date) (unknown) (unknown) Segment Reflex Right Left (units unknown) (unknown) (unknown) (no date) (unknown) (unknown) Sensory -? Int act to light touch of bilateral lower extremities. Allodynia (units unknown) (unknown) (unknown) (no date) (unknown) (unknown) Signed By: (units unknown) (unknown) (unknown) (no date) (unknown) (unknown) Skin: No appre ciable rashes or skin breakdown (units unknown) (unknown) (unknown) (no date) (unknown) (unknown) Smoking Status : Former smoker (units unknown) (unknown) (unknown) (no date) (unknown) (unknown) Social History (unit s unknown) (unknown) (unknown) (no date) (unknown) (unknown) Son Hearing loss (un its unknown) (unknown) (unknown) (no date) (unknown) (unknown) Standing: yuliana hanny due to pain (units unknown) (unknown) (unknown) (no date) (unknown) (unknown) Surgery: denies (uni ts unknown) (unknown) (unknown) (no date) (unknown) (unknown) Surgical Histo ry (Updated 07/12/22 @ 15:10 by Josefina Baumann MD) (units unknown) (unknown) (unknown) (no date) (unknown) (unknown) [facility] (units unknown) (unknown) (unknown) (no date) (unknown) (unknown) This note may have been all or partially generated using voice recognition (units unknown) (unknown) (unknown) (no date) (unknown) (unknown) Tobacco + Subs tance Use (units unknown) (unknown) (unknown) (no date) (unknown) (unknown) Tobacco Status (unit s unknown) (unknown) (unknown) (no date) (unknown) (unknown) Today I have r eviewed available medical information in the patient's medical (units unknown) (unknown) (unknown) (no date) (unknown) (unknown) Type(s) of exe rcise: walking (units unknown) (unknown) (unknown) (no date) (unknown) (unknown) Upper Motor Ne uron Signs: (units unknown) (unknown) (unknown) (no date) (unknown) (unknown) Visit Reasons: Follow Up LSpine/ED Visit @/XR Results (units unknown) (unknown) (unknown) (no date) (unknown) (unknown) Walking: walks slower due to pain (units unknown) (unknown) (unknown) (no date) (unknown) (unknown) [place] Prescription Monitoring Program (COMMERCIAL REAL ESTATE AGENT) was reviewed. (units unknown) (unknown) (unknown) (no date) (unknown) (unknown) We reviewed et iology, predisposing factor(s), natural course, imaging results as (units unknown) (unknown) (unknown) (no date) (unknown) (unknown) Weakness: denies (un its unknown) (unknown) (unknown) (no date) (unknown) (unknown) Went to ED for back pain (units unknown) (unknown) (unknown) (no date) (unknown) (unknown) Roy teeth extract ed (units unknown) (unknown) (unknown) (no date) (unknown) (unknown) Would also lik e to go over Lumbar Spine XR results from 02/25/23 (units unknown) (unknown) (unknown) (no date) (unknown) (unknown) X-ray left verena t 02/25/2023: (units unknown) (unknown) (unknown) (no date) (unknown) (unknown) X-ray lumbar s pine 02/25/2023: (units unknown) (unknown) (unknown) (no date) (unknown) (unknown) a long-term me dication and other NSAIDs should be avoided while on meloxicam.' (units unknown) (unknown) (unknown) (no date) (unknown) (unknown) additional soc ial history: Difficulty other children. Would (units unknown) (unknown) (unknown) (no date) (unknown) (unknown) alcohol intake: form er (units unknown) (unknown) (unknown) (no date) (unknown) (unknown) and Kenalog. H er 2nd visit was on 03/05/2023 for acute on chronic low back (units unknown) (unknown) (unknown) (no date) (unknown) (unknown) and we discuss ed taking this for up to several months.? This is not meant to be (units unknown) (unknown) (unknown) (no date) (unknown) (unknown) arthropathy an d myofascial pain.? I do not feel there is a radicular component (units unknown) (unknown) (unknown) (no date) (unknown) (unknown) back pain and a history of herniated disc in the lumbar spine.? She reports (units unknown) (unknown) (unknown) (no date) (unknown) (unknown) benefits of va rious treatment options were discussed with the patient in great (units unknown) (unknown) (unknown) (no date) (unknown) (unknown) bowel/bladder dysfunction, and perineal numbness were discussed. The patient was (units unknown) (unknown) (unknown) (no date) (unknown) (unknown) bulge at L5-S1 without central canal or neuroforaminal stenosis.? There is also (units unknown) (unknown) (unknown) (no date) (unknown) (unknown) caffeine: Yes (soft drinks in small quantities, well within 200mg limit) (units unknown) (unknown) (unknown) (no date) (unknown) (unknown) cannot tolerat e physical therapy at the current time due to the intensity of the (units unknown) (unknown) (unknown) (no date) (unknown) (unknown) carbon monox d etector in home: Yes (units unknown) (unknown) (unknown) (no date) (unknown) (unknown) changes.? Last ly, there is evidence of multilevel facet hypertrophy.? Lumbar x (units unknown) (unknown) (unknown) (no date) (unknown) (unknown) current occupa tional exposures/hazards: Yes (units unknown) (unknown) (unknown) (no date) (unknown) (unknown) daily servings fruits/ve or more times/day (units unknown) (unknown) (unknown) (no date) (unknown) (unknown) delivery. (units unknown) (unknown) (unknown) (no date) (unknown) (unknown) detail. (units unknown) (unknown) (unknown) (no date) (unknown) (unknown) do you feel sa fe at home: Yes (units unknown) (unknown) (unknown) (no date) (unknown) (unknown) double electri c breast pump 1 ea topical .prn #1 ea 11/01/22 [Rx Confirmed (units unknown) (unknown) (unknown) (no date) (unknown) (unknown) during the pas t year weight has: other (wide fluctuations since last ) (units unknown) (unknown) (unknown) (no date) (unknown) (unknown) education judye l: vocational (some college, certificate programs) (units unknown) (unknown) (unknown) (no date) (unknown) (unknown) evaluation of acute on chronic low back pain.? She reports long history of low (units unknown) (unknown) (unknown) (no date) (unknown) (unknown) evidence of degenerative disc disease at L4-5 and L5-S1 as well as Modic (units unknown) (unknown) (unknown) (no date) (unknown) (unknown) fire extinguis her in home: Yes (units unknown) (unknown) (unknown) (no date) (unknown) (unknown) firearms in ho me: Yes firearms unloaded and locked: Yes (units unknown) (unknown) (unknown) (no date) (unknown) (unknown) flaxseed Aller gy (Severe, Verified 02/07/23 08:41) (units unknown) (unknown) (unknown) (no date) (unknown) (unknown) fracture. She had an injection of the 5th tarsal metatarsal area with Marcaine (units unknown) (unknown) (unknown) (no date) (unknown) (unknown) grade breast p ump that she can have when she goes home from hospital after (units unknown) (unknown) (unknown) (no date) (unknown) (unknown) have occurred. If there are any questions, please contact the Medical Records (units unknown) (unknown) (unknown) (no date) (unknown) (unknown) household memb ers: spouse, family ([id number] and his 3 children (moving out (units unknown) (unknown) (unknown) (no date) (unknown) (unknown) housing: house (unit s unknown) (unknown) (unknown) (no date) (unknown) (unknown) improved sleep , improved mobility, etc. (units unknown) (unknown) (unknown) (no date) (unknown) (unknown) in PT. [] (units unknown) (unknown) (unknown) (no date) (unknown) (unknown) instructed to report to the Emergency department, if these symptoms occur. (units unknown) (unknown) (unknown) (no date) (unknown) (unknown) instructed to stop if any side effects. [] (units unknown) (unknown) (unknown) (no date) (unknown) (unknown) intravenous dr ug use, sustained glucocorticoid use, osteoporosis, or a focal (units unknown) (unknown) (unknown) (no date) (unknown) (unknown) is likely multifactorial including components of vertebrogenic, facet (units unknown) (unknown) (unknown) (no date) (unknown) (unknown) levothyroxine 137 mcg tablet 137 mcg PO DAILY #30 tabs 10/17/22 [Rx Confirmed (units unknown) (unknown) (unknown) (no date) (unknown) (unknown) lives independ ently: Yes (units unknown) (unknown) (unknown) (no date) (unknown) (unknown) local anesthet ic. During that time patient able to participate in ADLs, had (units unknown) (unknown) (unknown) (no date) (unknown) (unknown) marital status : (units unknown) (unknown) (unknown) (no date) (unknown) (unknown) may occur. Occ asional wrong-word or 'sound-alike' substitutions may have (units unknown) (unknown) (unknown) (no date) (unknown) (unknown) meds. [] (units unknown) (unknown) (unknown) (no date) (unknown) (unknown) meloxicam 7.5 mg tablet 7.5 mg PO DAILY #30 tabs 02/07/23 [Rx Confirmed (units unknown) (unknown) (unknown) (no date) (unknown) (unknown) needed - given by recent ED visit (units unknown) (unknown) (unknown) (no date) (unknown) (unknown) negative, Hype ralgesia - negative (units unknown) (unknown) (unknown) (no date) (unknown) (unknown) neurological d eficit with progressive or disabling symptoms. (units unknown) (unknown) (unknown) (no date) (unknown) (unknown) number of children: 3 (units unknown) (unknown) (unknown) (no date) (unknown) (unknown) occupational s tatus: unemployed and previously employed (units unknown) (unknown) (unknown) (no date) (unknown) (unknown) occurred due t o the inherent limitations of voice recognition software. Please (units unknown) (unknown) (unknown) (no date) (unknown) (unknown) of Spinal Cord Injur y) (units unknown) (unknown) (unknown) (no date) (unknown) (unknown) or immunosuppr essive therapy, previous or current cancer diagnosis, history of (units unknown) (unknown) (unknown) (no date) (unknown) (unknown) pain. She rece ived Decadron and Toradol in the emergency department. (units unknown) (unknown) (unknown) (no date) (unknown) (unknown) pain. [] (units unknown) (unknown) (unknown) (no date) (unknown) (unknown) pets and anima ls: Yes (horses) (units unknown) (unknown) (unknown) (no date) (unknown) (unknown) prenat.vits,ca l,min-ir on-folic 1 tab PO DAILY 04/22/22 [History Confirmed (units unknown) (unknown) (unknown) (no date) (unknown) (unknown) rays had not b een performed at the time of this evaluation.? Her low back pain (units unknown) (unknown) (unknown) (no date) (unknown) (unknown) read the note carefully and recognize, using context, where these substitutions (units unknown) (unknown) (unknown) (no date) (unknown) (unknown) really like to meet w/ [facility] prior to delivery and would like Rx for hospital (units unknown) (unknown) (unknown) (no date) (unknown) (unknown) record, includ ing relevant provider notes, laboratory work, and imaging. (units unknown) (unknown) (unknown) (no date) (unknown) (unknown) scale and/or p ain interferes with ADLs. (units unknown) (unknown) (unknown) (no date) (unknown) (unknown) seatbelt use: always (units unknown) (unknown) (unknown) (no date) (unknown) (unknown) second hand ex posure: No (units unknown) (unknown) (unknown) (no date) (unknown) (unknown) software. Alth ough every effort is made to edit content, bookbinder chief errors (units unknown) (unknown) (unknown) (no date) (unknown) (unknown) soon)) and children (units unknown) (unknown) (unknown) (no date) (unknown) (unknown) special roland needs: No (units unknown) (unknown) (unknown) (no date) (unknown) (unknown) starting physi alexey therapy and nonsteroidal medications.? Meloxicam was ordered (units unknown) (unknown) (unknown) (no date) (unknown) (unknown) substance use type: marijuana (in the past, not recently and not while ) (units unknown) (unknown) (unknown) (no date) (unknown) (unknown) the emergency department twice at [facility]. Her 1st visit (units unknown) (unknown) (unknown) (no date) (unknown) (unknown) therapeutic in jections and surgery. The risks, consequences, alternatives and (units unknown) (unknown) (unknown) (no date) (unknown) (unknown) therapy. ?A re ferral was provided for the patient. [] (units unknown) (unknown) (unknown) (no date) (unknown) (unknown) to her pain at this time.? Conservative management was encouraged including (units unknown) (unknown) (unknown) (no date) (unknown) (unknown) visit. (units unknown) (unknown) (unknown) (no date) (unknown) (unknown) was on 023 for left foot pain. X-ray did not show any evidence of acute (units unknown) (unknown) (unknown) (no date) (unknown) (unknown) water heater t emp set < 120 deg: Yes (units unknown) (unknown) (unknown) (no date) (unknown) (unknown) well as treatm ent options including medications, physical therapy/exercise, (units unknown) (unknown) (unknown) (no date) (unknown) (unknown) well-balanced diet: daily or most days (units unknown) (unknown) (unknown) (no date) (unknown) (unknown) with future tr eatment planning. [] (units unknown) (unknown) (unknown) (no date) (unknown) (unknown) without eviden ce of ataxia. Lower quarter stability intact. (units unknown) (unknown) (unknown) (no date) (unknown) (unknown) working smoke detector in home: Yes (units unknown) (unknown) (unknown) (no date) (unknown) (unknown) worsening of h er pain status post epidural blood patch.? MRI showed slight disc (units unknown) (unknown) Result panel 12 (unknown) (no date) (unknown) (unknown) (no value) (units unknown) (unknown) (unknown) (no date) (unknown) (unknown) (0=absent, 1=s light response, 2=brisk/normal, 3=very brisk, 4=clonus) (units unknown) (unknown) (unknown) (no date) (unknown) (unknown) (segments are from the International Standards for Neurological Classification (units unknown) (unknown) (unknown) (no date) (unknown) (unknown) - Activity: Co ntinue activity as tolerated. [] (units unknown) (unknown) (unknown) (no date) (unknown) (unknown) - Chiropractor , acupuncture[] (units unknown) (unknown) (unknown) (no date) (unknown) (unknown) - Continues cl inician directed home exercise program including exercises learned (units unknown) (unknown) (unknown) (no date) (unknown) (unknown) - Education: C auda equina and associated symptoms, including motor weakness, (units unknown) (unknown) (unknown) (no date) (unknown) (unknown) - FADIR: Negat katelyn bilaterally (units unknown) (unknown) (unknown) (no date) (unknown) (unknown) - Follow-up: [] (uni ts unknown) (unknown) (unknown) (no date) (unknown) (unknown) - Hip ROM is: Within normal limits (units unknown) (unknown) (unknown) (no date) (unknown) (unknown) - I discussed risks, benefits and side effects. Additionally, patient was (units unknown) (unknown) (unknown) (no date) (unknown) (unknown) - Imaging: No new imaging indicated at this time. [] (units unknown) (unknown) (unknown) (no date) (unknown) (unknown) - Interventional/Surgica l procedures: None indicated at this time. [] (units unknown) (unknown) (unknown) (no date) (unknown) (unknown) - Lumbar facet loading: Positive bilaterally (units unknown) (unknown) (unknown) (no date) (unknown) (unknown) - Medications: No new prescription at this time. Patient will continue current (units unknown) (unknown) (unknown) (no date) (unknown) (unknown) - Medications: acetaminophen, NSAIDS, neuropathics, muscle relaxants [] (units unknown) (unknown) (unknown) (no date) (unknown) (unknown) - Physical The rapy: Completed 6 week course in the last 6 months OR Patient (units unknown) (unknown) (unknown) (no date) (unknown) (unknown) - Physical therapy/modalities/DME : Patient will likely benefit from physical (units unknown) (unknown) (unknown) (no date) (unknown) (unknown) - Prescription provided and uptitration instructions given if necessary. [] (units unknown) (unknown) (unknown) (no date) (unknown) (unknown) - Previous [] on [] provided []% relief of pain for the expected duration of the (units unknown) (unknown) (unknown) (no date) (unknown) (unknown) - Referrals: N one indicated at this time. [] (units unknown) (unknown) (unknown) (no date) (unknown) (unknown) - SIJ provocat ion testing: Negative bilaterally (units unknown) (unknown) (unknown) (no date) (unknown) (unknown) - Straight Leg Raise: Negative bilaterally (units unknown) (unknown) (unknown) (no date) (unknown) (unknown) 03/06/23 (units unknown) (unknown) (unknown) (no date) (unknown) (unknown) 03/09/23] (units unknown) (unknown) (unknown) (no date) (unknown) (unknown) : [id number] (units unknown) (unknown) (unknown) (no date) (unknown) (unknown) ? Denies? (units unknown) (unknown) (unknown) (no date) (unknown) (unknown) ? Inspection - ? No gross appendicular or axial deformities (units unknown) (unknown) (unknown) (no date) (unknown) (unknown) ? Palpation -tenderness to palpation midline low back (units unknown) (unknown) (unknown) (no date) (unknown) (unknown) ? ROM -lumbar extension limited due to pain (units unknown) (unknown) (unknown) (no date) (unknown) (unknown) ? Special tests (uni ts unknown) (unknown) (unknown) (no date) (unknown) (unknown) ? Acetaminophen - doesn't help (units unknown) (unknown) (unknown) (no date) (unknown) (unknown) ? Antidepressants - celexa - no longer taking (units unknown) (unknown) (unknown) (no date) (unknown) (unknown) ? Antiepileptics - denies (units unknown) (unknown) (unknown) (no date) (unknown) (unknown) ? Mu scle Relaxants - denies (units unknown) (unknown) (unknown) (no date) (unknown) (unknown) ? NS AIDs - naproxen, ibuprofen (units unknown) (unknown) (unknown) (no date) (unknown) (unknown) ? Op ioids - Hydrocodone-acetaminop hen 5-325 mg 1 tab q.6 hours as (units unknown) (unknown) (unknown) (no date) (unknown) (unknown) ? St eroids - denies (units unknown) (unknown) (unknown) (no date) (unknown) (unknown) ? To picals - lidoderm (units unknown) (unknown) (unknown) (no date) (unknown) (unknown) ADHD (units unknown) (unknown) (unknown) (no date) (unknown) (unknown) Additional Soc ial History (units unknown) (unknown) (unknown) (no date) (unknown) (unknown) Age/Sex: 32 / F Date of Service: (units unknown) (unknown) (unknown) (no date) (unknown) (unknown) Aggravating fa ctors include: sitting, chores that require bending (units unknown) (unknown) (unknown) (no date) (unknown) (unknown) Alcoholism (units unknown) (unknown) (unknown) (no date) (unknown) (unknown) All other syst ems reviewed and are unremarkable except as noted in HPI. (units unknown) (unknown) (unknown) (no date) (unknown) (unknown) Allergies (units unknown) (unknown) (unknown) (no date) (unknown) (unknown) [place] [address] (units unknown) (unknown) (unknown) (no date) (unknown) (unknown) Anaphylaxis (units unknown) (unknown) (unknown) (no date) (unknown) (unknown) Anesthesia (units unknown) (unknown) (unknown) (no date) (unknown) (unknown) Assessment + Plan (u nits unknown) (unknown) (unknown) (no date) (unknown) (unknown) Assessment: (units unknown) (unknown) (unknown) (no date) (unknown) (unknown) Attending Dr: Celio Tejada MD (units unknown) (unknown) (unknown) (no date) (unknown) (unknown) [employer] Abby ngoing Downgoing (units unknown) (unknown) (unknown) (no date) (unknown) (unknown) Bowel and blad yan: No loss of control (units unknown) (unknown) (unknown) (no date) (unknown) (unknown) Carpal tunnel syndrome (-2017) (units unknown) (unknown) (unknown) (no date) (unknown) (unknown) Chart review: (units unknown) (unknown) (unknown) (no date) (unknown) (unknown) Chief Complaint (uni ts unknown) (unknown) (unknown) (no date) (unknown) (unknown) Chief Complain t: Low back pain (units unknown) (unknown) (unknown) (no date) (unknown) (unknown) Clonus None None (un its unknown) (unknown) (unknown) (no date) (unknown) (unknown) Conservative management includes: (units unknown) (unknown) (unknown) (no date) (unknown) (unknown) Continue [facility] physical therapy. [] (units unknown) (unknown) (unknown) (no date) (unknown) (unknown) Continue home exercise program. 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 (units unknown) (unknown) (unknown) (no date) (unknown) (unknown) Details: (units unknown) (unknown) (unknown) (no date) (unknown) (unknown) Diet and Exercise (u nits unknown) (unknown) (unknown) (no date) (unknown) (unknown) Documented By: Celio Tejada MD 03/06/23 1545 (units unknown) (unknown) (unknown) (no date) (unknown) (unknown) Draft (units unknown) (unknown) (unknown) (no date) (unknown) (unknown) Exam Narrative (unit s unknown) (unknown) (unknown) (no date) (unknown) (unknown) Exam Narrative: (uni ts unknown) (unknown) (unknown) (no date) (unknown) (unknown) Exam (units unknown) (unknown) (unknown) (no date) (unknown) (unknown) Family History (Updated 06/08/22 @ 21:23 by Aurora Arevalo) (units unknown) (unknown) (unknown) (no date) (unknown) (unknown) Father Diabete s mellitus (units unknown) (unknown) (unknown) (no date) (unknown) (unknown) Foot pain () (u nits unknown) (unknown) (unknown) (no date) (unknown) (unknown) Gait/Station - Non-antalgic gait. Heel/toe walking intact. Tandem gait normal (units unknown) (unknown) (unknown) (no date) (unknown) (unknown) General: Well-nourished, well-developed, female in no acute distress (units unknown) (unknown) (unknown) (no date) (unknown) (unknown) HPI (units unknown) (unknown) (unknown) (no date) (unknown) (unknown) Heavy menstrua l period () (units unknown) (unknown) (unknown) (no date) (unknown) (unknown) History of polyhydramnios (units unknown) (unknown) (unknown) (no date) (unknown) (unknown) History of surgery ( units unknown) (unknown) (unknown) (no date) (unknown) (unknown) Intake (units unknown) (unknown) (unknown) (no date) (unknown) (unknown) Interval History: (u nits unknown) (unknown) (unknown) (no date) (unknown) (unknown) Intervention:?Date:?Outcome:?? ? (units unknown) (unknown) (unknown) (no date) (unknown) (unknown) JUSTIFICATION OF MEDICAL NECESSITY (units unknown) (unknown) (unknown) (no date) (unknown) (unknown) L-spine/T-spin e/C-spin e MRI ordered to better delineate the anatomy and help (units unknown) (unknown) (unknown) (no date) (unknown) (unknown) L2 Hip Flexion 5/5 5/5? (units unknown) (unknown) (unknown) (no date) (unknown) (unknown) L3 Knee Extens ion 5/5 5/5 (units unknown) (unknown) (unknown) (no date) (unknown) (unknown) L3-4 Patella 2+ 2 (u nits unknown) (unknown) (unknown) (no date) (unknown) (unknown) L4 Ankle Dorsi flexion 5/5 5/5 (units unknown) (unknown) (unknown) (no date) (unknown) (unknown) L5 Long Toe Ex tension 5/5 5/5 (units unknown) (unknown) (unknown) (no date) (unknown) (unknown) Lidocaine patch 5% P RN (units unknown) (unknown) (unknown) (no date) (unknown) (unknown) Loc: PAIN (units unknown) (unknown) (unknown) (no date) (unknown) (unknown) Low back pain (units unknown) (unknown) (unknown) (no date) (unknown) (unknown) MSK: System re viewed and no additional complaints, except as documented. (units unknown) (unknown) (unknown) (no date) (unknown) (unknown) Medical Histor y (Updated 02/07/23 @ 10:11 by Celio Tejada MD) (units unknown) (unknown) (unknown) (no date) (unknown) (unknown) Medications (units unknown) (unknown) (unknown) (no date) (unknown) (unknown) Medications: (units unknown) (unknown) (unknown) (no date) (unknown) (unknown) Mental health proble m (units unknown) (unknown) (unknown) (no date) (unknown) (unknown) Mild degenerat katelyn changes of L4-5 and L5-S1. (units unknown) (unknown) (unknown) (no date) (unknown) (unknown) Mother Depression (u nits unknown) (unknown) (unknown) (no date) (unknown) (unknown) Motor (units unknown) (unknown) (unknown) (no date) (unknown) (unknown) Musculoskeletal: (un its unknown) (unknown) (unknown) (no date) (unknown) (unknown) Nearsightedness (uni ts unknown) (unknown) (unknown) (no date) (unknown) (unknown) Neuro: System reviewed and no additional complaints, except as documented. (units unknown) (unknown) (unknown) (no date) (unknown) (unknown) Neurologic: (units unknown) (unknown) (unknown) (no date) (unknown) (unknown) No evidence of acute bony abnormality of the left foot. (units unknown) (unknown) (unknown) (no date) (unknown) (unknown) Not indicated at this time. [] (units unknown) (unknown) (unknown) (no date) (unknown) (unknown) Numbness/Tingl ing: occasional tingling of the posterior left thigh (units unknown) (unknown) (unknown) (no date) (unknown) (unknown) Objective Data (unit s unknown) (unknown) (unknown) (no date) (unknown) (unknown) Objective Data: (uni ts unknown) (unknown) (unknown) (no date) (unknown) (unknown) Onset/Context of linh n: (units unknown) (unknown) (unknown) (no date) (unknown) (unknown) Onset: chronic , worsened after EBP (units unknown) (unknown) (unknown) (no date) (unknown) (unknown) Other: denies (units unknown) (unknown) (unknown) (no date) (unknown) (unknown) PFSH (units unknown) (unknown) (unknown) (no date) (unknown) (unknown) PT: PT schedul ed out for March 2023 at [facility] (units unknown) (unknown) (unknown) (no date) (unknown) (unknown) PTSD (post-tra umatic stress disorder) (-1999) (units unknown) (unknown) (unknown) (no date) (unknown) (unknown) Pain Visit (units unknown) (unknown) (unknown) (no date) (unknown) (unknown) Pain location/Radiation: Across the low back, denies radiation (units unknown) (unknown) (unknown) (no date) (unknown) (unknown) Pain ratin /10 today, 9/10 at worst (units unknown) (unknown) (unknown) (no date) (unknown) (unknown) Painful menstr ual periods (-2019) (units unknown) (unknown) (unknown) (no date) (unknown) (unknown) Past medical, surgical, social, and family history is unchanged from prior (units unknown) (unknown) (unknown) (no date) (unknown) (unknown) Patient was neal mohan seen here on 02/07/2023. Since this time she has been seen in (units unknown) (unknown) (unknown) (no date) (unknown) (unknown) Patient will r eturn for []. Risks and benefits were discussed. (units unknown) (unknown) (unknown) (no date) (unknown) (unknown) Patient's pain has been present for >6 weeks and is an average of >6/10 on 0-10 (units unknown) (unknown) (unknown) (no date) (unknown) (unknown) Patient: Hardy Cruz MR# (units unknown) (unknown) (unknown) (no date) (unknown) (unknown) Plan (units unknown) (unknown) (unknown) (no date) (unknown) (unknown) Plan/Recommendations : (units unknown) (unknown) (unknown) (no date) (unknown) (unknown) Polyhydramnios (unit s unknown) (unknown) (unknown) (no date) (unknown) (unknown) depressio n (units unknown) (unknown) (unknown) (no date) (unknown) (unknown) Prescriptions Written: [] (units unknown) (unknown) (unknown) (no date) (unknown) (unknown) Previous Visit Assessment: Feliciano is a 32-year-old female presenting for further (units unknown) (unknown) (unknown) (no date) (unknown) (unknown) Previous [facility] section (units unknown) (unknown) (unknown) (no date) (unknown) (unknown) Previous pain treatments included: (units unknown) (unknown) (unknown) (no date) (unknown) (unknown) Psych: Appropr iate affect, answers questions appropriately (units unknown) (unknown) (unknown) (no date) (unknown) (unknown) Quality and ti craly of pain: constant, deep, dull (units unknown) (unknown) (unknown) (no date) (unknown) (unknown) ROS Narrative (units unknown) (unknown) (unknown) (no date) (unknown) (unknown) ROS Narrative: (unit s unknown) (unknown) (unknown) (no date) (unknown) (unknown) ROS (units unknown) (unknown) (unknown) (no date) (unknown) (unknown) Reason For Visit (un its unknown) (unknown) (unknown) (no date) (unknown) (unknown) Red flag symptoms: ( units unknown) (unknown) (unknown) (no date) (unknown) (unknown) Reflex Right Left (u nits unknown) (unknown) (unknown) (no date) (unknown) (unknown) Reflexes: (units unknown) (unknown) (unknown) (no date) (unknown) (unknown) Relieving fact ors include: lying down (units unknown) (unknown) (unknown) (no date) (unknown) (unknown) Respiratory: Non-labored breathing pattern on RA. No respiratory distress (units unknown) (unknown) (unknown) (no date) (unknown) (unknown) Restless leg syndrom e (units unknown) (unknown) (unknown) (no date) (unknown) (unknown) S1 Ankle Plantarflexion 5/5 5/5 (units unknown) (unknown) (unknown) (no date) (unknown) (unknown) S1-2 Achilles 2+ 2 ( units unknown) (unknown) (unknown) (no date) (unknown) (unknown) Saddle anesthe carlos: denies (units unknown) (unknown) (unknown) (no date) (unknown) (unknown) Safety (units unknown) (unknown) (unknown) (no date) (unknown) (unknown) Segment Action Right Left (units unknown) (unknown) (unknown) (no date) (unknown) (unknown) Segment Reflex Right Left (units unknown) (unknown) (unknown) (no date) (unknown) (unknown) Sensory -? Int act to light touch of bilateral lower extremities. Allodynia (units unknown) (unknown) (unknown) (no date) (unknown) (unknown) Signed By: (units unknown) (unknown) (unknown) (no date) (unknown) (unknown) Skin: No appre ciable rashes or skin breakdown (units unknown) (unknown) (unknown) (no date) (unknown) (unknown) Smoking Status : Former smoker (units unknown) (unknown) (unknown) (no date) (unknown) (unknown) Social History (unit s unknown) (unknown) (unknown) (no date) (unknown) (unknown) Son Hearing loss (un its unknown) (unknown) (unknown) (no date) (unknown) (unknown) Standing: yuliana gamino due to pain (units unknown) (unknown) (unknown) (no date) (unknown) (unknown) Surgery: denies (uni ts unknown) (unknown) (unknown) (no date) (unknown) (unknown) Surgical Histo ry (Updated 07/12/22 @ 15:10 by Josefina Baumann MD) (units unknown) (unknown) (unknown) (no date) (unknown) (unknown) [facility] (units unknown) (unknown) (unknown) (no date) (unknown) (unknown) This note may have been all or partially generated using voice recognition (units unknown) (unknown) (unknown) (no date) (unknown) (unknown) Tobacco + Subs tance Use (units unknown) (unknown) (unknown) (no date) (unknown) (unknown) Tobacco Status (unit s unknown) (unknown) (unknown) (no date) (unknown) (unknown) Today I have r eviewed available medical information in the patient's medical (units unknown) (unknown) (unknown) (no date) (unknown) (unknown) Type(s) of exe rcise: walking (units unknown) (unknown) (unknown) (no date) (unknown) (unknown) Upper Motor Ne uron Signs: (units unknown) (unknown) (unknown) (no date) (unknown) (unknown) Visit Reasons: Follow Up LSpine/ED Visit @[facility]/XR Results (units unknown) (unknown) (unknown) (no date) (unknown) (unknown) Walking: walks slower due to pain (units unknown) (unknown) (unknown) (no date) (unknown) (unknown) [place] Prescription Monitoring Program (COMMERCIAL REAL ESTATE AGENT) was reviewed. (units unknown) (unknown) (unknown) (no date) (unknown) (unknown) We reviewed et iology, predisposing factor(s), natural course, imaging results as (units unknown) (unknown) (unknown) (no date) (unknown) (unknown) Weakness: denies (un its unknown) (unknown) (unknown) (no date) (unknown) (unknown) Roy teeth extract ed (units unknown) (unknown) (unknown) (no date) (unknown) (unknown) X-ray left verena t 02/25/2023: (units unknown) (unknown) (unknown) (no date) (unknown) (unknown) X-ray lumbar s pine 02/25/2023: (units unknown) (unknown) (unknown) (no date) (unknown) (unknown) a long-term me dication and other NSAIDs should be avoided while on meloxicam.' (units unknown) (unknown) (unknown) (no date) (unknown) (unknown) additional soc ial history: Difficulty other children. Would (units unknown) (unknown) (unknown) (no date) (unknown) (unknown) alcohol intake: form er (units unknown) (unknown) (unknown) (no date) (unknown) (unknown) and Kenalog. H er 2nd visit was on 03/05/2023 for acute on chronic low back (units unknown) (unknown) (unknown) (no date) (unknown) (unknown) and we discuss ed taking this for up to several months.? This is not meant to be (units unknown) (unknown) (unknown) (no date) (unknown) (unknown) arthropathy an d myofascial pain.? I do not feel there is a radicular component (units unknown) (unknown) (unknown) (no date) (unknown) (unknown) back pain and a history of herniated disc in the lumbar spine.? She reports (units unknown) (unknown) (unknown) (no date) (unknown) (unknown) benefits of va rious treatment options were discussed with the patient in great (units unknown) (unknown) (unknown) (no date) (unknown) (unknown) bowel/bladder dysfunction, and perineal numbness were discussed. The patient was (units unknown) (unknown) (unknown) (no date) (unknown) (unknown) bulge at L5-S1 without central canal or neuroforaminal stenosis.? There is also (units unknown) (unknown) (unknown) (no date) (unknown) (unknown) caffeine: Yes (soft drinks in small quantities, well within 200mg limit) (units unknown) (unknown) (unknown) (no date) (unknown) (unknown) cannot tolerat e physical therapy at the current time due to the intensity of the (units unknown) (unknown) (unknown) (no date) (unknown) (unknown) carbon monox d etector in home: Yes (units unknown) (unknown) (unknown) (no date) (unknown) (unknown) changes.? Last ly, there is evidence of multilevel facet hypertrophy.? Lumbar x (units unknown) (unknown) (unknown) (no date) (unknown) (unknown) current occupa tional exposures/hazards: Yes (units unknown) (unknown) (unknown) (no date) (unknown) (unknown) daily servings fruits/ve or more times/day (units unknown) (unknown) (unknown) (no date) (unknown) (unknown) delivery. (units unknown) (unknown) (unknown) (no date) (unknown) (unknown) detail. (units unknown) (unknown) (unknown) (no date) (unknown) (unknown) do you feel sa fe at home: Yes (units unknown) (unknown) (unknown) (no date) (unknown) (unknown) double electri c breast pump 1 ea topical .prn #1 ea 11/01/22 [Rx Confirmed (units unknown) (unknown) (unknown) (no date) (unknown) (unknown) during the pas t year weight has: other (wide fluctuations since last ) (units unknown) (unknown) (unknown) (no date) (unknown) (unknown) education leve l: vocational (some college, certificate programs) (units unknown) (unknown) (unknown) (no date) (unknown) (unknown) evaluation of acute on chronic low back pain.? She reports long history of low (units unknown) (unknown) (unknown) (no date) (unknown) (unknown) evidence of degenerative disc disease at L4-5 and L5-S1 as well as Modic (units unknown) (unknown) (unknown) (no date) (unknown) (unknown) fire extinguis her in home: Yes (units unknown) (unknown) (unknown) (no date) (unknown) (unknown) firearms in ho me: Yes firearms unloaded and locked: Yes (units unknown) (unknown) (unknown) (no date) (unknown) (unknown) flaxseed Aller gy (Severe, Verified 02/07/23 08:41) (units unknown) (unknown) (unknown) (no date) (unknown) (unknown) fracture. She had an injection of the 5th tarsal metatarsal area with Marcaine (units unknown) (unknown) (unknown) (no date) (unknown) (unknown) grade breast p ump that she can have when she goes home from hospital after (units unknown) (unknown) (unknown) (no date) (unknown) (unknown) have occurred. If there are any questions, please contact the Medical Records (units unknown) (unknown) (unknown) (no date) (unknown) (unknown) household memb ers: spouse, family ([id number] and his 3 children (moving out (units unknown) (unknown) (unknown) (no date) (unknown) (unknown) housing: house (unit s unknown) (unknown) (unknown) (no date) (unknown) (unknown) improved sleep , improved mobility, etc. (units unknown) (unknown) (unknown) (no date) (unknown) (unknown) in PT. [] (units unknown) (unknown) (unknown) (no date) (unknown) (unknown) instructed to report to the Emergency department, if these symptoms occur. (units unknown) (unknown) (unknown) (no date) (unknown) (unknown) instructed to stop if any side effects. [] (units unknown) (unknown) (unknown) (no date) (unknown) (unknown) intravenous dr ug use, sustained glucocorticoid use, osteoporosis, or a focal (units unknown) (unknown) (unknown) (no date) (unknown) (unknown) is likely multifactorial including components of vertebrogenic, facet (units unknown) (unknown) (unknown) (no date) (unknown) (unknown) levothyroxine 137 mcg tablet 137 mcg PO DAILY #30 tabs 10/17/22 [Rx Confirmed (units unknown) (unknown) (unknown) (no date) (unknown) (unknown) lives independ ently: Yes (units unknown) (unknown) (unknown) (no date) (unknown) (unknown) local anesthet ic. During that time patient able to participate in ADLs, had (units unknown) (unknown) (unknown) (no date) (unknown) (unknown) marital status : (units unknown) (unknown) (unknown) (no date) (unknown) (unknown) may occur. Occ asional wrong-word or 'sound-alike' substitutions may have (units unknown) (unknown) (unknown) (no date) (unknown) (unknown) meds. [] (units unknown) (unknown) (unknown) (no date) (unknown) (unknown) meloxicam 7.5 mg tablet 7.5 mg PO DAILY #30 tabs 02/07/23 [Rx Confirmed (units unknown) (unknown) (unknown) (no date) (unknown) (unknown) needed - given by recent ED visit (units unknown) (unknown) (unknown) (no date) (unknown) (unknown) negative, Hype ralgesia - negative (units unknown) (unknown) (unknown) (no date) (unknown) (unknown) neurological d eficit with progressive or disabling symptoms. (units unknown) (unknown) (unknown) (no date) (unknown) (unknown) number of children: 3 (units unknown) (unknown) (unknown) (no date) (unknown) (unknown) occupational s tatus: unemployed and previously employed (units unknown) (unknown) (unknown) (no date) (unknown) (unknown) occurred due t o the inherent limitations of voice recognition software. Please (units unknown) (unknown) (unknown) (no date) (unknown) (unknown) of Spinal Cord Injur y) (units unknown) (unknown) (unknown) (no date) (unknown) (unknown) or immunosuppr essive therapy, previous or current cancer diagnosis, history of (units unknown) (unknown) (unknown) (no date) (unknown) (unknown) pain. She rece ived Decadron and Toradol in the emergency department. (units unknown) (unknown) (unknown) (no date) (unknown) (unknown) pain. [] (units unknown) (unknown) (unknown) (no date) (unknown) (unknown) pets and anima ls: Yes (horses) (units unknown) (unknown) (unknown) (no date) (unknown) (unknown) prenat.vits,ca l,min-ir on-folic 1 tab PO DAILY 04/22/22 [History Confirmed (units unknown) (unknown) (unknown) (no date) (unknown) (unknown) rays had not b een performed at the time of this evaluation.? Her low back pain (units unknown) (unknown) (unknown) (no date) (unknown) (unknown) read the note carefully and recognize, using context, where these substitutions (units unknown) (unknown) (unknown) (no date) (unknown) (unknown) really like to meet w/ [facility] prior to delivery and would like Rx for hospital (units unknown) (unknown) (unknown) (no date) (unknown) (unknown) record, includ ing relevant provider notes, laboratory work, and imaging. (units unknown) (unknown) (unknown) (no date) (unknown) (unknown) scale and/or p ain interferes with ADLs. (units unknown) (unknown) (unknown) (no date) (unknown) (unknown) seatbelt use: always (units unknown) (unknown) (unknown) (no date) (unknown) (unknown) second hand ex posure: No (units unknown) (unknown) (unknown) (no date) (unknown) (unknown) software. Alth ough every effort is made to edit content, bookbinder chief errors (units unknown) (unknown) (unknown) (no date) (unknown) (unknown) soon)) and children (units unknown) (unknown) (unknown) (no date) (unknown) (unknown) special roland needs: No (units unknown) (unknown) (unknown) (no date) (unknown) (unknown) starting physi alexey therapy and nonsteroidal medications.? Meloxicam was ordered (units unknown) (unknown) (unknown) (no date) (unknown) (unknown) substance use type: marijuana (in the past, not recently and not while ) (units unknown) (unknown) (unknown) (no date) (unknown) (unknown) the emergency department twice at [facility]. Her 1st visit (units unknown) (unknown) (unknown) (no date) (unknown) (unknown) therapeutic in jections and surgery. The risks, consequences, alternatives and (units unknown) (unknown) (unknown) (no date) (unknown) (unknown) therapy. ?A re ferral was provided for the patient. [] (units unknown) (unknown) (unknown) (no date) (unknown) (unknown) to her pain at this time.? Conservative management was encouraged including (units unknown) (unknown) (unknown) (no date) (unknown) (unknown) visit. (units unknown) (unknown) (unknown) (no date) (unknown) (unknown) was on 023 for left foot pain. X-ray did not show any evidence of acute (units unknown) (unknown) (unknown) (no date) (unknown) (unknown) water heater t emp set < 120 deg: Yes (units unknown) (unknown) (unknown) (no date) (unknown) (unknown) well as treatm ent options including medications, physical therapy/exercise, (units unknown) (unknown) (unknown) (no date) (unknown) (unknown) well-balanced diet: daily or most days (units unknown) (unknown) (unknown) (no date) (unknown) (unknown) with future tr eatment planning. [] (units unknown) (unknown) (unknown) (no date) (unknown) (unknown) without eviden ce of ataxia. Lower quarter stability intact. (units unknown) (unknown) (unknown) (no date) (unknown) (unknown) working smoke detector in home: Yes (units unknown) (unknown) (unknown) (no date) (unknown) (unknown) worsening of h er pain status post epidural blood patch.? MRI showed slight disc (units unknown) (unknown) Result panel 13 (unknown) (no date) (unknown) (unknown) (no value) (units unknown) (unknown) (unknown) (no date) (unknown) (unknown) 03/20/23 (units unknown) (unknown) (unknown) (no date) (unknown) (unknown) : [id number] (units unknown) (unknown) (unknown) (no date) (unknown) (unknown) ADHD (units unknown) (unknown) (unknown) (no date) (unknown) (unknown) Additional Soc ial History (units unknown) (unknown) (unknown) (no date) (unknown) (unknown) Age/Sex: 32 / F Date of Service: (units unknown) (unknown) (unknown) (no date) (unknown) (unknown) Alcoholism (units unknown) (unknown) (unknown) (no date) (unknown) (unknown) All other syst ems reviewed and are unremarkable except as noted in HPI. (units unknown) (unknown) (unknown) (no date) (unknown) (unknown) Allergies (units unknown) (unknown) (unknown) (no date) (unknown) (unknown) Josefina SIL [id number] (units unknown) (unknown) (unknown) (no date) (unknown) (unknown) Anaphylaxis (units unknown) (unknown) (unknown) (no date) (unknown) (unknown) Anesthesia (units unknown) (unknown) (unknown) (no date) (unknown) (unknown) Attending Dr: Celio Tejada MD (units unknown) (unknown) (unknown) (no date) (unknown) (unknown) Bowel and blad yan: No loss of control (units unknown) (unknown) (unknown) (no date) (unknown) (unknown) Carpal tunnel syndrome (-2017) (units unknown) (unknown) (unknown) (no date) (unknown) (unknown) Chart review: (units unknown) (unknown) (unknown) (no date) (unknown) (unknown) Chief Complaint (uni ts unknown) (unknown) (unknown) (no date) (unknown) (unknown) Chief Complain t: Follow-up (units unknown) (unknown) (unknown) (no date) (unknown) (unknown) Current VAS: [] ( units unknown) (unknown) (unknown) (no date) (unknown) (unknown) : 9 Acct:[id number] (units unknown) (unknown) (unknown) (no date) (unknown) (unknown) Daughter Cornel ile arthritis (units unknown) (unknown) (unknown) (no date) (unknown) (unknown) Denies recent trauma, fever or weight loss of unknown origin, immunocompromise (units unknown) (unknown) (unknown) (no date) (unknown) (unknown) Depression (-1999) ( units unknown) (unknown) (unknown) (no date) (unknown) (unknown) Dept at [phone]. (units unknown) (unknown) (unknown) (no date) (unknown) (unknown) Details: (units unknown) (unknown) (unknown) (no date) (unknown) (unknown) Diet and Exercise (u nits unknown) (unknown) (unknown) (no date) (unknown) (unknown) Documented By: Celio Tejada MD 04/04/23 0855 (units unknown) (unknown) (unknown) (no date) (unknown) (unknown) Draft (units unknown) (unknown) (unknown) (no date) (unknown) (unknown) Family History (Updated 06/08/22 @ 21:23 by Aurora Arevalo) (units unknown) (unknown) (unknown) (no date) (unknown) (unknown) Father Diabete s mellitus (units unknown) (unknown) (unknown) (no date) (unknown) (unknown) Foot pain () (u nits unknown) (unknown) (unknown) (no date) (unknown) (unknown) HPI (units unknown) (unknown) (unknown) (no date) (unknown) (unknown) Heavy menstrua l period () (units unknown) (unknown) (unknown) (no date) (unknown) (unknown) History of polyhydramnios (units unknown) (unknown) (unknown) (no date) (unknown) (unknown) History of surgery ( units unknown) (unknown) (unknown) (no date) (unknown) (unknown) Intake (units unknown) (unknown) (unknown) (no date) (unknown) (unknown) Interval History: (u nits unknown) (unknown) (unknown) (no date) (unknown) (unknown) Loc: PAIN (units unknown) (unknown) (unknown) (no date) (unknown) (unknown) Low back pain (units unknown) (unknown) (unknown) (no date) (unknown) (unknown) MSK: System re viewed and no additional complaints, except as documented. (units unknown) (unknown) (unknown) (no date) (unknown) (unknown) Medical Histor y (Updated 02/07/23 @ 10:11 by Celio Tejada MD) (units unknown) (unknown) (unknown) (no date) (unknown) (unknown) Mental health proble m (units unknown) (unknown) (unknown) (no date) (unknown) (unknown) Mother Depression (u nits unknown) (unknown) (unknown) (no date) (unknown) (unknown) Nearsightedness (uni ts unknown) (unknown) (unknown) (no date) (unknown) (unknown) Neuro: System reviewed and no additional complaints, except as documented. (units unknown) (unknown) (unknown) (no date) (unknown) (unknown) PFSH (units unknown) (unknown) (unknown) (no date) (unknown) (unknown) PTSD (post-tra umatic stress disorder) (-1999) (units unknown) (unknown) (unknown) (no date) (unknown) (unknown) Pain Visit (units unknown) (unknown) (unknown) (no date) (unknown) (unknown) Painful menstr ual periods (-2019) (units unknown) (unknown) (unknown) (no date) (unknown) (unknown) Past medical, surgical, social, and family history is unchanged from prior (units unknown) (unknown) (unknown) (no date) (unknown) (unknown) Patient was la st seen here on [] (units unknown) (unknown) (unknown) (no date) (unknown) (unknown) Patient: Hardy Cruz MR# (units unknown) (unknown) (unknown) (no date) (unknown) (unknown) Polyhydramnios (unit s unknown) (unknown) (unknown) (no date) (unknown) (unknown) depressio n (units unknown) (unknown) (unknown) (no date) (unknown) (unknown) Previous Visit Assessment: '' (units unknown) (unknown) (unknown) (no date) (unknown) (unknown) Previous [facility] (units unknown) (unknown) (unknown) (no date) (unknown) (unknown) ROS Narrative (units unknown) (unknown) (unknown) (no date) (unknown) (unknown) ROS Narrative: (unit s unknown) (unknown) (unknown) (no date) (unknown) (unknown) ROS (units unknown) (unknown) (unknown) (no date) (unknown) (unknown) Reason For Visit (un its unknown) (unknown) (unknown) (no date) (unknown) (unknown) Red flag symptoms: ( units unknown) (unknown) (unknown) (no date) (unknown) (unknown) Restless leg syndrom e (units unknown) (unknown) (unknown) (no date) (unknown) (unknown) Saddle anesthe carlos: denies (units unknown) (unknown) (unknown) (no date) (unknown) (unknown) Safety (units unknown) (unknown) (unknown) (no date) (unknown) (unknown) Signed By: (units unknown) (unknown) (unknown) (no date) (unknown) (unknown) Smoking Status : Former smoker (units unknown) (unknown) (unknown) (no date) (unknown) (unknown) Social History (unit s unknown) (unknown) (unknown) (no date) (unknown) (unknown) Son Hearing loss (un its unknown) (unknown) (unknown) (no date) (unknown) (unknown) Surgical Histo ry (Updated 07/12/22 @ 15:10 by Josefina Baumann MD) (units unknown) (unknown) (unknown) (no date) (unknown) (unknown) [facility] (units unknown) (unknown) (unknown) (no date) (unknown) (unknown) This note may have been all or partially generated using voice recognition (units unknown) (unknown) (unknown) (no date) (unknown) (unknown) Tobacco + Subs tance Use (units unknown) (unknown) (unknown) (no date) (unknown) (unknown) Tobacco Status (unit s unknown) (unknown) (unknown) (no date) (unknown) (unknown) Today I have r eviewed available medical information in the patient's medical (units unknown) (unknown) (unknown) (no date) (unknown) (unknown) Type(s) of exe rcise: walking (units unknown) (unknown) (unknown) (no date) (unknown) (unknown) Visit Reasons: follow up (was in the ER) (units unknown) (unknown) (unknown) (no date) (unknown) (unknown) Weakness: denies (un its unknown) (unknown) (unknown) (no date) (unknown) (unknown) Roy teeth extract ed (units unknown) (unknown) (unknown) (no date) (unknown) (unknown) additional soc ial history: Difficulty other children. Would (units unknown) (unknown) (unknown) (no date) (unknown) (unknown) alcohol intake: form er (units unknown) (unknown) (unknown) (no date) (unknown) (unknown) caffeine: Yes (soft drinks in small quantities, well within 200mg limit) (units unknown) (unknown) (unknown) (no date) (unknown) (unknown) carbon monox d etector in home: Yes (units unknown) (unknown) (unknown) (no date) (unknown) (unknown) current occupa tional exposures/hazards: Yes (units unknown) (unknown) (unknown) (no date) (unknown) (unknown) daily servings fruits/ve or more times/day (units unknown) (unknown) (unknown) (no date) (unknown) (unknown) delivery. (units unknown) (unknown) (unknown) (no date) (unknown) (unknown) do you feel sa fe at home: Yes (units unknown) (unknown) (unknown) (no date) (unknown) (unknown) during the pas t year weight has: other (wide fluctuations since last ) (units unknown) (unknown) (unknown) (no date) (unknown) (unknown) education leve l: vocational (some college, certificate programs) (units unknown) (unknown) (unknown) (no date) (unknown) (unknown) fire extinguis her in home: Yes (units unknown) (unknown) (unknown) (no date) (unknown) (unknown) firearms in ho me: Yes firearms unloaded and locked: Yes (units unknown) (unknown) (unknown) (no date) (unknown) (unknown) flaxseed Aller gy (Severe, Verified 02/07/23 08:41) (units unknown) (unknown) (unknown) (no date) (unknown) (unknown) grade breast p ump that she can have when she goes home from hospital after (units unknown) (unknown) (unknown) (no date) (unknown) (unknown) have occurred. If there are any questions, please contact the Medical Records (units unknown) (unknown) (unknown) (no date) (unknown) (unknown) household memb ers: spouse, family ([id number] and his 3 children (moving out (units unknown) (unknown) (unknown) (no date) (unknown) (unknown) housing: house (unit s unknown) (unknown) (unknown) (no date) (unknown) (unknown) intravenous dr ug use, sustained glucocorticoid use, osteoporosis, or a focal (units unknown) (unknown) (unknown) (no date) (unknown) (unknown) lives independ ently: Yes (units unknown) (unknown) (unknown) (no date) (unknown) (unknown) marital status : (units unknown) (unknown) (unknown) (no date) (unknown) (unknown) may occur. Occ asional wrong-word or 'sound-alike' substitutions may have (units unknown) (unknown) (unknown) (no date) (unknown) (unknown) neurological d eficit with progressive or disabling symptoms. (units unknown) (unknown) (unknown) (no date) (unknown) (unknown) number of children: 3 (units unknown) (unknown) (unknown) (no date) (unknown) (unknown) occupational s tatus: unemployed and previously employed (units unknown) (unknown) (unknown) (no date) (unknown) (unknown) occurred due t o the inherent limitations of voice recognition software. Please (units unknown) (unknown) (unknown) (no date) (unknown) (unknown) or immunosuppr essive therapy, previous or current cancer diagnosis, history of (units unknown) (unknown) (unknown) (no date) (unknown) (unknown) pets and anima ls: Yes (horses) (units unknown) (unknown) (unknown) (no date) (unknown) (unknown) read the note carefully and recognize, using context, where these substitutions (units unknown) (unknown) (unknown) (no date) (unknown) (unknown) really like to meet w/ [facility] prior to delivery and would like Rx for hospital (units unknown) (unknown) (unknown) (no date) (unknown) (unknown) record, includ ing relevant provider notes, laboratory work, and imaging. (units unknown) (unknown) (unknown) (no date) (unknown) (unknown) seatbelt use: always (units unknown) (unknown) (unknown) (no date) (unknown) (unknown) second hand ex posure: No (units unknown) (unknown) (unknown) (no date) (unknown) (unknown) software. Alth ough every effort is made to edit content, bookbinder chief errors (units unknown) (unknown) (unknown) (no date) (unknown) (unknown) soon)) and children (units unknown) (unknown) (unknown) (no date) (unknown) (unknown) special roland needs: No (units unknown) (unknown) (unknown) (no date) (unknown) (unknown) substance use type: marijuana (in the past, not recently and not while ) (units unknown) (unknown) (unknown) (no date) (unknown) (unknown) visit. (units unknown) (unknown) (unknown) (no date) (unknown) (unknown) water heater t emp set < 120 deg: Yes (units unknown) (unknown) (unknown) (no date) (unknown) (unknown) well-balanced diet: daily or most days (units unknown) (unknown) (unknown) (no date) (unknown) (unknown) working smoke detector in home: Yes (units unknown) (unknown) Result panel 14 (unknown) (no date) (unknown) (unknown) (no value) (units unknown) (unknown) (unknown) (no date) (unknown) (unknown) (0=absent, 1=s light response, 2=brisk/normal, 3=very brisk, 4=clonus) (units unknown) (unknown) (unknown) (no date) (unknown) (unknown) (segments are from the International Standards for Neurological Classification (units unknown) (unknown) (unknown) (no date) (unknown) (unknown) - Activity: Co ntinue activity as tolerated. [] (units unknown) (unknown) (unknown) (no date) (unknown) (unknown) - Chiropractor , acupuncture[] (units unknown) (unknown) (unknown) (no date) (unknown) (unknown) - Continues cl inician directed home exercise program including exercises learned (units unknown) (unknown) (unknown) (no date) (unknown) (unknown) - Education: C auda equina and associated symptoms, including motor weakness, (units unknown) (unknown) (unknown) (no date) (unknown) (unknown) - FADIR: Negat katelyn bilaterally (units unknown) (unknown) (unknown) (no date) (unknown) (unknown) - Follow-up: [] (uni ts unknown) (unknown) (unknown) (no date) (unknown) (unknown) - Hip ROM is: Within normal limits (units unknown) (unknown) (unknown) (no date) (unknown) (unknown) - I discussed risks, benefits and side effects. Additionally, patient was (units unknown) (unknown) (unknown) (no date) (unknown) (unknown) - Imaging: No new imaging indicated at this time. [] (units unknown) (unknown) (unknown) (no date) (unknown) (unknown) - Interventional/Surgica l procedures: None indicated at this time. [] (units unknown) (unknown) (unknown) (no date) (unknown) (unknown) - Lumbar facet loading: Positive bilaterally (units unknown) (unknown) (unknown) (no date) (unknown) (unknown) - Medications: No new prescription at this time. Patient will continue current (units unknown) (unknown) (unknown) (no date) (unknown) (unknown) - Medications: acetaminophen, NSAIDS, neuropathics, muscle relaxants [] (units unknown) (unknown) (unknown) (no date) (unknown) (unknown) - Physical The rapy: Completed 6 week course in the last 6 months OR Patient (units unknown) (unknown) (unknown) (no date) (unknown) (unknown) - Physical therapy/modalities/DME : Patient will likely benefit from physical (units unknown) (unknown) (unknown) (no date) (unknown) (unknown) - Prescription provided and uptitration instructions given if necessary. [] (units unknown) (unknown) (unknown) (no date) (unknown) (unknown) - Previous [] on [] provided []% relief of pain for the expected duration of the (units unknown) (unknown) (unknown) (no date) (unknown) (unknown) - Referrals: N one indicated at this time. [] (units unknown) (unknown) (unknown) (no date) (unknown) (unknown) - SIJ provocat ion testing: Negative bilaterally (units unknown) (unknown) (unknown) (no date) (unknown) (unknown) - Straight Leg Raise: Negative bilaterally (units unknown) (unknown) (unknown) (no date) (unknown) (unknown) 03/20/23 (units unknown) (unknown) (unknown) (no date) (unknown) (unknown) : [id number] (units unknown) (unknown) (unknown) (no date) (unknown) (unknown) ? Denies? (units unknown) (unknown) (unknown) (no date) (unknown) (unknown) ? Inspection - ? No gross appendicular or axial deformities (units unknown) (unknown) (unknown) (no date) (unknown) (unknown) ? Palpation -tenderness to palpation midline low back (units unknown) (unknown) (unknown) (no date) (unknown) (unknown) ? ROM -lumbar extension limited due to pain (units unknown) (unknown) (unknown) (no date) (unknown) (unknown) ? Special tests (uni ts unknown) (unknown) (unknown) (no date) (unknown) (unknown) ? Acetaminophen - doesn't help (units unknown) (unknown) (unknown) (no date) (unknown) (unknown) ? Antidepressants - celexa - no longer taking (units unknown) (unknown) (unknown) (no date) (unknown) (unknown) ? Antiepileptics - denies (units unknown) (unknown) (unknown) (no date) (unknown) (unknown) ? Mu scle Relaxants - denies (units unknown) (unknown) (unknown) (no date) (unknown) (unknown) ? NS AIDs - naproxen, ibuprofen (units unknown) (unknown) (unknown) (no date) (unknown) (unknown) ? Op ioids - Hydrocodone-acetaminop hen 5-325 mg 1 tab q.6 hours as (units unknown) (unknown) (unknown) (no date) (unknown) (unknown) ? St eroids - denies (units unknown) (unknown) (unknown) (no date) (unknown) (unknown) ? To picals - lidoderm (units unknown) (unknown) (unknown) (no date) (unknown) (unknown) ADHD (units unknown) (unknown) (unknown) (no date) (unknown) (unknown) Additional Soc ial History (units unknown) (unknown) (unknown) (no date) (unknown) (unknown) Age/Sex: 32 / F Date of Service: (units unknown) (unknown) (unknown) (no date) (unknown) (unknown) Aggravating fa ctors include: sitting, chores that require bending (units unknown) (unknown) (unknown) (no date) (unknown) (unknown) Alcoholism (units unknown) (unknown) (unknown) (no date) (unknown) (unknown) All other syst ems reviewed and are unremarkable except as noted in HPI. (units unknown) (unknown) (unknown) (no date) (unknown) (unknown) Allergies (units unknown) (unknown) (unknown) (no date) (unknown) (unknown) [place] [address] (units unknown) (unknown) (unknown) (no date) (unknown) (unknown) Anaphylaxis (units unknown) (unknown) (unknown) (no date) (unknown) (unknown) Anesthesia (units unknown) (unknown) (unknown) (no date) (unknown) (unknown) Assessment + Plan (u nits unknown) (unknown) (unknown) (no date) (unknown) (unknown) Assessment: (units unknown) (unknown) (unknown) (no date) (unknown) (unknown) Attending Dr: Celio Tejada MD (units unknown) (unknown) (unknown) (no date) (unknown) (unknown) [facility] [employer] (units unknown) (unknown) (unknown) (no date) (unknown) (unknown) Bowel and blad yan: No loss of control (units unknown) (unknown) (unknown) (no date) (unknown) (unknown) Carpal tunnel syndrome (-2018) (units unknown) (unknown) (unknown) (no date) (unknown) (unknown) Chart review: (units unknown) (unknown) (unknown) (no date) (unknown) (unknown) Chief Complaint (uni ts unknown) (unknown) (unknown) (no date) (unknown) (unknown) Chief Complain t: Follow-up (units unknown) (unknown) (unknown) (no date) (unknown) (unknown) Clonus None None (un its unknown) (unknown) (unknown) (no date) (unknown) (unknown) Conservative management includes: (units unknown) (unknown) (unknown) (no date) (unknown) (unknown) [facility] [] (units unknown) (unknown) (unknown) (no date) (unknown) (unknown) Continue home exercise program. 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 (units unknown) (unknown) (unknown) (no date) (unknown) (unknown) Details: (units unknown) (unknown) (unknown) (no date) (unknown) (unknown) Diet and Exercise (u nits unknown) (unknown) (unknown) (no date) (unknown) (unknown) Documented By: Celio Tejada MD 04/04/23 0855 (units unknown) (unknown) (unknown) (no date) (unknown) (unknown) Draft (units unknown) (unknown) (unknown) (no date) (unknown) (unknown) Exam Narrative (unit s unknown) (unknown) (unknown) (no date) (unknown) (unknown) Exam Narrative: (uni ts unknown) (unknown) (unknown) (no date) (unknown) (unknown) Exam (units unknown) (unknown) (unknown) (no date) (unknown) (unknown) Family History (Updated 06/08/22 @ 21:23 by Aurora Arevalo) (units unknown) (unknown) (unknown) (no date) (unknown) (unknown) Father Diabete s mellitus (units unknown) (unknown) (unknown) (no date) (unknown) (unknown) Foot pain () (u nits unknown) (unknown) (unknown) (no date) (unknown) (unknown) Gait/Station - Non-antalgic gait. Heel/toe walking intact. Tandem gait normal (units unknown) (unknown) (unknown) (no date) (unknown) (unknown) General: Well-nourished, well-developed, female in no acute distress (units unknown) (unknown) (unknown) (no date) (unknown) (unknown) HPI (units unknown) (unknown) (unknown) (no date) (unknown) (unknown) Heavy menstrua l period (-2020) (units unknown) (unknown) (unknown) (no date) (unknown) (unknown) History of polyhydramnios (units unknown) (unknown) (unknown) (no date) (unknown) (unknown) History of surgery ( units unknown) (unknown) (unknown) (no date) (unknown) (unknown) Intake (units unknown) (unknown) (unknown) (no date) (unknown) (unknown) Interval History: (u nits unknown) (unknown) (unknown) (no date) (unknown) (unknown) Intervention:?Date:?Outcome:?? ? (units unknown) (unknown) (unknown) (no date) (unknown) (unknown) JUSTIFICATION OF MEDICAL NECESSITY (units unknown) (unknown) (unknown) (no date) (unknown) (unknown) L-spine/T-spin e/C-spin e MRI ordered to better delineate the anatomy and help (units unknown) (unknown) (unknown) (no date) (unknown) (unknown) L2 Hip Flexion 5/5 5/5? (units unknown) (unknown) (unknown) (no date) (unknown) (unknown) L3 Knee Extens ion 5/5 5/5 (units unknown) (unknown) (unknown) (no date) (unknown) (unknown) L3-4 Patella 2+ 2 (u nits unknown) (unknown) (unknown) (no date) (unknown) (unknown) L4 Ankle Dorsi flexion 5/5 5/5 (units unknown) (unknown) (unknown) (no date) (unknown) (unknown) L5 Long Toe Ex tension 5/5 5/5 (units unknown) (unknown) (unknown) (no date) (unknown) (unknown) Lidocaine patch 5% P RN (units unknown) (unknown) (unknown) (no date) (unknown) (unknown) Loc: PAIN (units unknown) (unknown) (unknown) (no date) (unknown) (unknown) Low back pain (units unknown) (unknown) (unknown) (no date) (unknown) (unknown) MSK: System re viewed and no additional complaints, except as documented. (units unknown) (unknown) (unknown) (no date) (unknown) (unknown) Medical Histor y (Updated 02/07/23 @ 10:11 by Celio Tejada MD) (units unknown) (unknown) (unknown) (no date) (unknown) (unknown) Medications: (units unknown) (unknown) (unknown) (no date) (unknown) (unknown) Mental health proble m (units unknown) (unknown) (unknown) (no date) (unknown) (unknown) Mild degenerat katelyn changes of L4-5 and L5-S1. (units unknown) (unknown) (unknown) (no date) (unknown) (unknown) Mother Depression (u nits unknown) (unknown) (unknown) (no date) (unknown) (unknown) Motor (units unknown) (unknown) (unknown) (no date) (unknown) (unknown) Musculoskeletal: (un its unknown) (unknown) (unknown) (no date) (unknown) (unknown) Nearsightedness (uni ts unknown) (unknown) (unknown) (no date) (unknown) (unknown) Neuro: System reviewed and no additional complaints, except as documented. (units unknown) (unknown) (unknown) (no date) (unknown) (unknown) Neurologic: (units unknown) (unknown) (unknown) (no date) (unknown) (unknown) No evidence of acute bony abnormality of the left foot. (units unknown) (unknown) (unknown) (no date) (unknown) (unknown) Not indicated at this time. [] (units unknown) (unknown) (unknown) (no date) (unknown) (unknown) Numbness/Tingl ing: occasional tingling of the posterior left thigh (units unknown) (unknown) (unknown) (no date) (unknown) (unknown) Objective Data (unit s unknown) (unknown) (unknown) (no date) (unknown) (unknown) Objective Data: (uni ts unknown) (unknown) (unknown) (no date) (unknown) (unknown) Onset/Context of linh n: (units unknown) (unknown) (unknown) (no date) (unknown) (unknown) Onset: chronic , worsened after EBP (units unknown) (unknown) (unknown) (no date) (unknown) (unknown) Other: denies (units unknown) (unknown) (unknown) (no date) (unknown) (unknown) PFSH (units unknown) (unknown) (unknown) (no date) (unknown) (unknown) PT: PT schedul ed out for March 2023 at [facility] (units unknown) (unknown) (unknown) (no date) (unknown) (unknown) PTSD (post-tra umatic stress disorder) (-1999) (units unknown) (unknown) (unknown) (no date) (unknown) (unknown) Pain Visit (units unknown) (unknown) (unknown) (no date) (unknown) (unknown) Pain location/Radiation: Across the low back, denies radiation (units unknown) (unknown) (unknown) (no date) (unknown) (unknown) Pain ratin /10 today, 9/10 at worst (units unknown) (unknown) (unknown) (no date) (unknown) (unknown) Painful menstr ual periods (-2019) (units unknown) (unknown) (unknown) (no date) (unknown) (unknown) Past medical, surgical, social, and family history is unchanged from prior (units unknown) (unknown) (unknown) (no date) (unknown) (unknown) Patient was neal mohan seen here on 02/07/2023.? Since this time she has been seen in (units unknown) (unknown) (unknown) (no date) (unknown) (unknown) Patient will r eturn for []. Risks and benefits were discussed. (units unknown) (unknown) (unknown) (no date) (unknown) (unknown) Patient's pain has been present for >6 weeks and is an average of >6/10 on 0-10 (units unknown) (unknown) (unknown) (no date) (unknown) (unknown) Patient: Hardy Cruz MR# (units unknown) (unknown) (unknown) (no date) (unknown) (unknown) Plan (units unknown) (unknown) (unknown) (no date) (unknown) (unknown) Plan/Recommendations : (units unknown) (unknown) (unknown) (no date) (unknown) (unknown) Polyhydramnios (unit s unknown) (unknown) (unknown) (no date) (unknown) (unknown) depressio n (units unknown) (unknown) (unknown) (no date) (unknown) (unknown) Prescriptions Written: [] (units unknown) (unknown) (unknown) (no date) (unknown) (unknown) Previous Visit Assessment: Feliciano is a 32-year-old female presenting for further (units unknown) (unknown) (unknown) (no date) (unknown) (unknown) Previous gladys jospeh section (units unknown) (unknown) (unknown) (no date) (unknown) (unknown) Previous pain treatments included: (units unknown) (unknown) (unknown) (no date) (unknown) (unknown) Psych: Appropr iate affect, answers questions appropriately (units unknown) (unknown) (unknown) (no date) (unknown) (unknown) Quality and ti carly of pain: constant, deep, dull (units unknown) (unknown) (unknown) (no date) (unknown) (unknown) ROS Narrative (units unknown) (unknown) (unknown) (no date) (unknown) (unknown) ROS Narrative: (unit s unknown) (unknown) (unknown) (no date) (unknown) (unknown) ROS (units unknown) (unknown) (unknown) (no date) (unknown) (unknown) Reason For Visit (un its unknown) (unknown) (unknown) (no date) (unknown) (unknown) Red flag symptoms: ( units unknown) (unknown) (unknown) (no date) (unknown) (unknown) Reflex Right Left (u nits unknown) (unknown) (unknown) (no date) (unknown) (unknown) Reflexes: (units unknown) (unknown) (unknown) (no date) (unknown) (unknown) Relieving fact ors include: lying down (units unknown) (unknown) (unknown) (no date) (unknown) (unknown) Respiratory: Non-labored breathing pattern on RA. No respiratory distress (units unknown) (unknown) (unknown) (no date) (unknown) (unknown) Restless leg syndrom e (units unknown) (unknown) (unknown) (no date) (unknown) (unknown) S1 Ankle Plantarflexion 5/5 5/5 (units unknown) (unknown) (unknown) (no date) (unknown) (unknown) S1-2 Achilles 2+ 2 ( units unknown) (unknown) (unknown) (no date) (unknown) (unknown) Saddle anesthe carlos: denies (units unknown) (unknown) (unknown) (no date) (unknown) (unknown) Safety (units unknown) (unknown) (unknown) (no date) (unknown) (unknown) Segment Action Right Left (units unknown) (unknown) (unknown) (no date) (unknown) (unknown) Segment Reflex Right Left (units unknown) (unknown) (unknown) (no date) (unknown) (unknown) Sensory -? Int act to light touch of bilateral lower extremities. Allodynia (units unknown) (unknown) (unknown) (no date) (unknown) (unknown) Signed By: (units unknown) (unknown) (unknown) (no date) (unknown) (unknown) Skin: No appre ciable rashes or skin breakdown (units unknown) (unknown) (unknown) (no date) (unknown) (unknown) Smoking Status : Former smoker (units unknown) (unknown) (unknown) (no date) (unknown) (unknown) Social History (unit s unknown) (unknown) (unknown) (no date) (unknown) (unknown) Son Hearing loss (un its unknown) (unknown) (unknown) (no date) (unknown) (unknown) Standing: jaylenei hanny due to pain (units unknown) (unknown) (unknown) (no date) (unknown) (unknown) Surgery: denies (uni ts unknown) (unknown) (unknown) (no date) (unknown) (unknown) Surgical Histo ry (Updated 07/12/22 @ 15:10 by Josefina Baumann MD) (units unknown) (unknown) (unknown) (no date) (unknown) (unknown) [facility] (units unknown) (unknown) (unknown) (no date) (unknown) (unknown) This note may have been all or partially generated using voice recognition (units unknown) (unknown) (unknown) (no date) (unknown) (unknown) Tobacco + Subs tance Use (units unknown) (unknown) (unknown) (no date) (unknown) (unknown) Tobacco Status (unit s unknown) (unknown) (unknown) (no date) (unknown) (unknown) Today I have r patricioiewed available medical information in the patient's medical (units unknown) (unknown) (unknown) (no date) (unknown) (unknown) Type(s) of exe rcise: walking (units unknown) (unknown) (unknown) (no date) (unknown) (unknown) Upper Motor Ne uron Signs: (units unknown) (unknown) (unknown) (no date) (unknown) (unknown) Visit Reasons: follow up (was in the ER) (units unknown) (unknown) (unknown) (no date) (unknown) (unknown) Walking: walks slower due to pain (units unknown) (unknown) (unknown) (no date) (unknown) (unknown) [place] Prescription Monitoring Program (COMMERCIAL REAL ESTATE AGENT) was reviewed. (units unknown) (unknown) (unknown) (no date) (unknown) (unknown) We reviewed et iology, predisposing factor(s), natural course, imaging results as (units unknown) (unknown) (unknown) (no date) (unknown) (unknown) Weakness: denies (un its unknown) (unknown) (unknown) (no date) (unknown) (unknown) Roy teeth extract ed (units unknown) (unknown) (unknown) (no date) (unknown) (unknown) X-ray left verena t 02/25/2023: (units unknown) (unknown) (unknown) (no date) (unknown) (unknown) X-ray lumbar s pine 02/25/2023: (units unknown) (unknown) (unknown) (no date) (unknown) (unknown) a long-term me dication and other NSAIDs should be avoided while on meloxicam.' (units unknown) (unknown) (unknown) (no date) (unknown) (unknown) additional soc ial history: Difficulty other children. Would (units unknown) (unknown) (unknown) (no date) (unknown) (unknown) alcohol intake: form er (units unknown) (unknown) (unknown) (no date) (unknown) (unknown) and Kenalog.? Her 2nd visit was on 03/05/2023 for acute on chronic low back (units unknown) (unknown) (unknown) (no date) (unknown) (unknown) and we discuss ed taking this for up to several months.? This is not meant to be (units unknown) (unknown) (unknown) (no date) (unknown) (unknown) arthropathy an d myofascial pain.? I do not feel there is a radicular component (units unknown) (unknown) (unknown) (no date) (unknown) (unknown) back pain and a history of herniated disc in the lumbar spine.? She reports (units unknown) (unknown) (unknown) (no date) (unknown) (unknown) benefits of va rious treatment options were discussed with the patient in great (units unknown) (unknown) (unknown) (no date) (unknown) (unknown) bowel/bladder dysfunction, and perineal numbness were discussed. The patient was (units unknown) (unknown) (unknown) (no date) (unknown) (unknown) bulge at L5-S1 without central canal or neuroforaminal stenosis.? There is also (units unknown) (unknown) (unknown) (no date) (unknown) (unknown) caffeine: Yes (soft drinks in small quantities, well within 200mg limit) (units unknown) (unknown) (unknown) (no date) (unknown) (unknown) cannot tolerat e physical therapy at the current time due to the intensity of the (units unknown) (unknown) (unknown) (no date) (unknown) (unknown) carbon monox d etector in home: Yes (units unknown) (unknown) (unknown) (no date) (unknown) (unknown) changes.? Last ly, there is evidence of multilevel facet hypertrophy.? Lumbar x (units unknown) (unknown) (unknown) (no date) (unknown) (unknown) current occupa tional exposures/hazards: Yes (units unknown) (unknown) (unknown) (no date) (unknown) (unknown) daily servings fruits/ve or more times/day (units unknown) (unknown) (unknown) (no date) (unknown) (unknown) delivery. (units unknown) (unknown) (unknown) (no date) (unknown) (unknown) detail. (units unknown) (unknown) (unknown) (no date) (unknown) (unknown) do you feel sa fe at home: Yes (units unknown) (unknown) (unknown) (no date) (unknown) (unknown) during the pas t year weight has: other (wide fluctuations since last ) (units unknown) (unknown) (unknown) (no date) (unknown) (unknown) education leve l: vocational (some college, certificate programs) (units unknown) (unknown) (unknown) (no date) (unknown) (unknown) evaluation of acute on chronic low back pain.? She reports long history of low (units unknown) (unknown) (unknown) (no date) (unknown) (unknown) evidence of degenerative disc disease at L4-5 and L5-S1 as well as Modic (units unknown) (unknown) (unknown) (no date) (unknown) (unknown) fire extinguis her in home: Yes (units unknown) (unknown) (unknown) (no date) (unknown) (unknown) firearms in ho me: Yes firearms unloaded and locked: Yes (units unknown) (unknown) (unknown) (no date) (unknown) (unknown) flaxseed Aller gy (Severe, Verified 02/07/23 08:41) (units unknown) (unknown) (unknown) (no date) (unknown) (unknown) fracture.? She had an injection of the 5th tarsal metatarsal area with Marcaine (units unknown) (unknown) (unknown) (no date) (unknown) (unknown) grade breast p ump that she can have when she goes home from hospital after (units unknown) (unknown) (unknown) (no date) (unknown) (unknown) have occurred. If there are any questions, please contact the Medical Records (units unknown) (unknown) (unknown) (no date) (unknown) (unknown) household memb ers: spouse, family ([id number] and his 3 children (moving out (units unknown) (unknown) (unknown) (no date) (unknown) (unknown) housing: house (unit s unknown) (unknown) (unknown) (no date) (unknown) (unknown) improved sleep , improved mobility, etc. (units unknown) (unknown) (unknown) (no date) (unknown) (unknown) in PT. [] (units unknown) (unknown) (unknown) (no date) (unknown) (unknown) instructed to report to the Emergency department, if these symptoms occur. (units unknown) (unknown) (unknown) (no date) (unknown) (unknown) instructed to stop if any side effects. [] (units unknown) (unknown) (unknown) (no date) (unknown) (unknown) intravenous dr ug use, sustained glucocorticoid use, osteoporosis, or a focal (units unknown) (unknown) (unknown) (no date) (unknown) (unknown) is likely multifactorial including components of vertebrogenic, facet (units unknown) (unknown) (unknown) (no date) (unknown) (unknown) lives independ ently: Yes (units unknown) (unknown) (unknown) (no date) (unknown) (unknown) local anesthet ic. During that time patient able to participate in ADLs, had (units unknown) (unknown) (unknown) (no date) (unknown) (unknown) marital status : (units unknown) (unknown) (unknown) (no date) (unknown) (unknown) may occur. Occ asional wrong-word or 'sound-alike' substitutions may have (units unknown) (unknown) (unknown) (no date) (unknown) (unknown) meds. [] (units unknown) (unknown) (unknown) (no date) (unknown) (unknown) needed - given by recent ED visit (units unknown) (unknown) (unknown) (no date) (unknown) (unknown) negative, Hype ralgesia - negative (units unknown) (unknown) (unknown) (no date) (unknown) (unknown) neurological d eficit with progressive or disabling symptoms. (units unknown) (unknown) (unknown) (no date) (unknown) (unknown) number of children: 3 (units unknown) (unknown) (unknown) (no date) (unknown) (unknown) occupational s tatus: unemployed and previously employed (units unknown) (unknown) (unknown) (no date) (unknown) (unknown) occurred due t o the inherent limitations of voice recognition software. Please (units unknown) (unknown) (unknown) (no date) (unknown) (unknown) of Spinal Cord Injur y) (units unknown) (unknown) (unknown) (no date) (unknown) (unknown) or immunosuppr essive therapy, previous or current cancer diagnosis, history of (units unknown) (unknown) (unknown) (no date) (unknown) (unknown) pain. [] (units unknown) (unknown) (unknown) (no date) (unknown) (unknown) pain.? She rec eived Decadron and Toradol in the emergency department. (units unknown) (unknown) (unknown) (no date) (unknown) (unknown) pets and anima ls: Yes (horses) (units unknown) (unknown) (unknown) (no date) (unknown) (unknown) rays had not b een performed at the time of this evaluation.? Her low back pain (units unknown) (unknown) (unknown) (no date) (unknown) (unknown) read the note carefully and recognize, using context, where these substitutions (units unknown) (unknown) (unknown) (no date) (unknown) (unknown) really like to meet w/ [facility] prior to delivery and would like Rx for hospital (units unknown) (unknown) (unknown) (no date) (unknown) (unknown) record, includ ing relevant provider notes, laboratory work, and imaging. (units unknown) (unknown) (unknown) (no date) (unknown) (unknown) scale and/or p ain interferes with ADLs. (units unknown) (unknown) (unknown) (no date) (unknown) (unknown) seatbelt use: always (units unknown) (unknown) (unknown) (no date) (unknown) (unknown) second hand ex posure: No (units unknown) (unknown) (unknown) (no date) (unknown) (unknown) software. Alth ough every effort is made to edit content, bookbinder chief errors (units unknown) (unknown) (unknown) (no date) (unknown) (unknown) soon)) and children (units unknown) (unknown) (unknown) (no date) (unknown) (unknown) special roland needs: No (units unknown) (unknown) (unknown) (no date) (unknown) (unknown) starting physi alexey therapy and nonsteroidal medications.? Meloxicam was ordered (units unknown) (unknown) (unknown) (no date) (unknown) (unknown) substance use type: marijuana (in the past, not recently and not while ) (units unknown) (unknown) (unknown) (no date) (unknown) (unknown) the emergency department twice at [facility].? Her 1st visit (units unknown) (unknown) (unknown) (no date) (unknown) (unknown) therapeutic in jections and surgery. The risks, consequences, alternatives and (units unknown) (unknown) (unknown) (no date) (unknown) (unknown) therapy. ?A re ferral was provided for the patient. [] (units unknown) (unknown) (unknown) (no date) (unknown) (unknown) to her pain at this time.? Conservative management was encouraged including (units unknown) (unknown) (unknown) (no date) (unknown) (unknown) visit. (units unknown) (unknown) (unknown) (no date) (unknown) (unknown) was on 023 for left foot pain.? X-ray did not show any evidence of acute (units unknown) (unknown) (unknown) (no date) (unknown) (unknown) water heater t emp set < 120 deg: Yes (units unknown) (unknown) (unknown) (no date) (unknown) (unknown) well as treatm ent options including medications, physical therapy/exercise, (units unknown) (unknown) (unknown) (no date) (unknown) (unknown) well-balanced diet: daily or most days (units unknown) (unknown) (unknown) (no date) (unknown) (unknown) with future tr eatment planning. [] (units unknown) (unknown) (unknown) (no date) (unknown) (unknown) without eviden ce of ataxia. Lower quarter stability intact. (units unknown) (unknown) (unknown) (no date) (unknown) (unknown) working smoke detector in home: Yes (units unknown) (unknown) (unknown) (no date) (unknown) (unknown) worsening of h er pain status post epidural blood patch.? MRI showed slight disc (units unknown) (unknown) Result panel 15 (unknown) (no date) (unknown) (unknown) (no value) (units unknown) (unknown) (unknown) (no date) (unknown) (unknown) (0=absent, 1=s light response, 2=brisk/normal, 3=very brisk, 4=clonus) (units unknown) (unknown) (unknown) (no date) (unknown) (unknown) (segments are from the International Standards for Neurological Classification (units unknown) (unknown) (unknown) (no date) (unknown) (unknown) - Activity: Co ntinue activity as tolerated. [] (units unknown) (unknown) (unknown) (no date) (unknown) (unknown) - Chiropractor , acupuncture[] (units unknown) (unknown) (unknown) (no date) (unknown) (unknown) - Continues cl inician directed home exercise program including exercises learned (units unknown) (unknown) (unknown) (no date) (unknown) (unknown) - Education: C auda equina and associated symptoms, including motor weakness, (units unknown) (unknown) (unknown) (no date) (unknown) (unknown) - FADIR: Negat katelyn bilaterally (units unknown) (unknown) (unknown) (no date) (unknown) (unknown) - Follow-up: [] (uni ts unknown) (unknown) (unknown) (no date) (unknown) (unknown) - Hip ROM is: Within normal limits (units unknown) (unknown) (unknown) (no date) (unknown) (unknown) - I discussed risks, benefits and side effects. Additionally, patient was (units unknown) (unknown) (unknown) (no date) (unknown) (unknown) - Imaging: No new imaging indicated at this time. [] (units unknown) (unknown) (unknown) (no date) (unknown) (unknown) - Interventional/Surgica l procedures: None indicated at this time. [] (units unknown) (unknown) (unknown) (no date) (unknown) (unknown) - Lumbar facet loading: Positive bilaterally (units unknown) (unknown) (unknown) (no date) (unknown) (unknown) - Medications: No new prescription at this time. Patient will continue current (units unknown) (unknown) (unknown) (no date) (unknown) (unknown) - Medications: acetaminophen, NSAIDS, neuropathics, muscle relaxants [] (units unknown) (unknown) (unknown) (no date) (unknown) (unknown) - Physical The rapy: Completed 6 week course in the last 6 months OR Patient (units unknown) (unknown) (unknown) (no date) (unknown) (unknown) - Physical therapy/modalities/DME : Patient will likely benefit from physical (units unknown) (unknown) (unknown) (no date) (unknown) (unknown) - Prescription provided and uptitration instructions given if necessary. [] (units unknown) (unknown) (unknown) (no date) (unknown) (unknown) - Previous [] on [] provided []% relief of pain for the expected duration of the (units unknown) (unknown) (unknown) (no date) (unknown) (unknown) - Referrals: N one indicated at this time. [] (units unknown) (unknown) (unknown) (no date) (unknown) (unknown) - SIJ provocat ion testing: Negative bilaterally (units unknown) (unknown) (unknown) (no date) (unknown) (unknown) - Straight Leg Raise: Negative bilaterally (units unknown) (unknown) (unknown) (no date) (unknown) (unknown) 03/06/23 (units unknown) (unknown) (unknown) (no date) (unknown) (unknown) 03/09/23] (units unknown) (unknown) (unknown) (no date) (unknown) (unknown) : [id number] (units unknown) (unknown) (unknown) (no date) (unknown) (unknown) ? Denies? (units unknown) (unknown) (unknown) (no date) (unknown) (unknown) ? Inspection - ? No gross appendicular or axial deformities (units unknown) (unknown) (unknown) (no date) (unknown) (unknown) ? Palpation -tenderness to palpation midline low back (units unknown) (unknown) (unknown) (no date) (unknown) (unknown) ? ROM -lumbar extension limited due to pain (units unknown) (unknown) (unknown) (no date) (unknown) (unknown) ? Special tests (uni ts unknown) (unknown) (unknown) (no date) (unknown) (unknown) ? Acetaminophen - doesn't help (units unknown) (unknown) (unknown) (no date) (unknown) (unknown) ? Antidepressants - celexa - no longer taking (units unknown) (unknown) (unknown) (no date) (unknown) (unknown) ? Antiepileptics - denies (units unknown) (unknown) (unknown) (no date) (unknown) (unknown) ? Mu scle Relaxants - denies (units unknown) (unknown) (unknown) (no date) (unknown) (unknown) ? NS AIDs - naproxen, ibuprofen (units unknown) (unknown) (unknown) (no date) (unknown) (unknown) ? Op ioids - Hydrocodone-acetaminop hen 5-325 mg 1 tab q.6 hours as (units unknown) (unknown) (unknown) (no date) (unknown) (unknown) ? St eroids - denies (units unknown) (unknown) (unknown) (no date) (unknown) (unknown) ? To picals - lidoderm (units unknown) (unknown) (unknown) (no date) (unknown) (unknown) ADHD (units unknown) (unknown) (unknown) (no date) (unknown) (unknown) Additional Soc ial History (units unknown) (unknown) (unknown) (no date) (unknown) (unknown) Age/Sex: 32 / F Date of Service: (units unknown) (unknown) (unknown) (no date) (unknown) (unknown) Aggravating fa ctors include: sitting, chores that require bending (units unknown) (unknown) (unknown) (no date) (unknown) (unknown) Alcoholism (units unknown) (unknown) (unknown) (no date) (unknown) (unknown) All other syst ems reviewed and are unremarkable except as noted in HPI. (units unknown) (unknown) (unknown) (no date) (unknown) (unknown) Allergies (units unknown) (unknown) (unknown) (no date) (unknown) (unknown) [place] [address] (units unknown) (unknown) (unknown) (no date) (unknown) (unknown) Anaphylaxis (units unknown) (unknown) (unknown) (no date) (unknown) (unknown) Anesthesia (units unknown) (unknown) (unknown) (no date) (unknown) (unknown) Assessment + Plan (u nits unknown) (unknown) (unknown) (no date) (unknown) (unknown) Assessment: (units unknown) (unknown) (unknown) (no date) (unknown) (unknown) Attending Dr: Celio Tejada MD (units unknown) (unknown) (unknown) (no date) (unknown) (unknown) [employer] [facility] ngoing Downgoing (units unknown) (unknown) (unknown) (no date) (unknown) (unknown) Bowel and blad yan: No loss of control (units unknown) (unknown) (unknown) (no date) (unknown) (unknown) Cancelled (units unknown) (unknown) (unknown) (no date) (unknown) (unknown) Carpal tunnel syndrome (-2018) (units unknown) (unknown) (unknown) (no date) (unknown) (unknown) Chart review: (units unknown) (unknown) (unknown) (no date) (unknown) (unknown) Chief Complaint (uni ts unknown) (unknown) (unknown) (no date) (unknown) (unknown) Chief Complain t: Low back pain (units unknown) (unknown) (unknown) (no date) (unknown) (unknown) Clonus None None (un its unknown) (unknown) (unknown) (no date) (unknown) (unknown) Conservative management includes: (units unknown) (unknown) (unknown) (no date) (unknown) (unknown) Continue [facility] physical therapy. [] (units unknown) (unknown) (unknown) (no date) (unknown) (unknown) Continue home exercise program. 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 (units unknown) (unknown) (unknown) (no date) (unknown) (unknown) Details: (units unknown) (unknown) (unknown) (no date) (unknown) (unknown) Diet and Exercise (u nits unknown) (unknown) (unknown) (no date) (unknown) (unknown) Documented By: Celio Tejada MD 03/06/23 1545 (units unknown) (unknown) (unknown) (no date) (unknown) (unknown) Exam Narrative (unit s unknown) (unknown) (unknown) (no date) (unknown) (unknown) Exam Narrative: (uni ts unknown) (unknown) (unknown) (no date) (unknown) (unknown) Exam (units unknown) (unknown) (unknown) (no date) (unknown) (unknown) Family History (Updated 06/08/22 @ 21:23 by Aurora Arevalo) (units unknown) (unknown) (unknown) (no date) (unknown) (unknown) Father Diabete s mellitus (units unknown) (unknown) (unknown) (no date) (unknown) (unknown) Foot pain () (u nits unknown) (unknown) (unknown) (no date) (unknown) (unknown) Gait/Station - Non-antalgic gait. Heel/toe walking intact. Tandem gait normal (units unknown) (unknown) (unknown) (no date) (unknown) (unknown) General: Well-nourished, well-developed, female in no acute distress (units unknown) (unknown) (unknown) (no date) (unknown) (unknown) HPI (units unknown) (unknown) (unknown) (no date) (unknown) (unknown) Heavy menstrua l period () (units unknown) (unknown) (unknown) (no date) (unknown) (unknown) History of polyhydramnios (units unknown) (unknown) (unknown) (no date) (unknown) (unknown) History of surgery ( units unknown) (unknown) (unknown) (no date) (unknown) (unknown) Intake (units unknown) (unknown) (unknown) (no date) (unknown) (unknown) Interval History: (u nits unknown) (unknown) (unknown) (no date) (unknown) (unknown) Intervention:?Date:?Outcome:?? ? (units unknown) (unknown) (unknown) (no date) (unknown) (unknown) JUSTIFICATION OF MEDICAL NECESSITY (units unknown) (unknown) (unknown) (no date) (unknown) (unknown) L-spine/T-spin e/C-spin e MRI ordered to better delineate the anatomy and help (units unknown) (unknown) (unknown) (no date) (unknown) (unknown) L2 Hip Flexion 5/5 5/5? (units unknown) (unknown) (unknown) (no date) (unknown) (unknown) L3 Knee Extens ion 5/5 5/5 (units unknown) (unknown) (unknown) (no date) (unknown) (unknown) L3-4 Patella 2+ 2 (u nits unknown) (unknown) (unknown) (no date) (unknown) (unknown) L4 Ankle Dorsi flexion 5/5 5/5 (units unknown) (unknown) (unknown) (no date) (unknown) (unknown) L5 Long Toe Ex tension 5/5 5/5 (units unknown) (unknown) (unknown) (no date) (unknown) (unknown) Lidocaine patch 5% P RN (units unknown) (unknown) (unknown) (no date) (unknown) (unknown) Loc: PAIN (units unknown) (unknown) (unknown) (no date) (unknown) (unknown) Low back pain (units unknown) (unknown) (unknown) (no date) (unknown) (unknown) MSK: System re viewed and no additional complaints, except as documented. (units unknown) (unknown) (unknown) (no date) (unknown) (unknown) Medical Histor y (Updated 02/07/23 @ 10:11 by Celio Tejada MD) (units unknown) (unknown) (unknown) (no date) (unknown) (unknown) Medications (units unknown) (unknown) (unknown) (no date) (unknown) (unknown) Medications: (units unknown) (unknown) (unknown) (no date) (unknown) (unknown) Mental health proble m (units unknown) (unknown) (unknown) (no date) (unknown) (unknown) Mild degenerat katelyn changes of L4-5 and L5-S1. (units unknown) (unknown) (unknown) (no date) (unknown) (unknown) Mother Depression (u nits unknown) (unknown) (unknown) (no date) (unknown) (unknown) Motor (units unknown) (unknown) (unknown) (no date) (unknown) (unknown) Musculoskeletal: (un its unknown) (unknown) (unknown) (no date) (unknown) (unknown) Nearsightedness (uni ts unknown) (unknown) (unknown) (no date) (unknown) (unknown) Neuro: System reviewed and no additional complaints, except as documented. (units unknown) (unknown) (unknown) (no date) (unknown) (unknown) Neurologic: (units unknown) (unknown) (unknown) (no date) (unknown) (unknown) No evidence of acute bony abnormality of the left foot. (units unknown) (unknown) (unknown) (no date) (unknown) (unknown) Not indicated at this time. [] (units unknown) (unknown) (unknown) (no date) (unknown) (unknown) Numbness/Tingl ing: occasional tingling of the posterior left thigh (units unknown) (unknown) (unknown) (no date) (unknown) (unknown) Objective Data (unit s unknown) (unknown) (unknown) (no date) (unknown) (unknown) Objective Data: (uni ts unknown) (unknown) (unknown) (no date) (unknown) (unknown) Onset/Context of linh n: (units unknown) (unknown) (unknown) (no date) (unknown) (unknown) Onset: chronic , worsened after EBP (units unknown) (unknown) (unknown) (no date) (unknown) (unknown) Other: denies (units unknown) (unknown) (unknown) (no date) (unknown) (unknown) PFSH (units unknown) (unknown) (unknown) (no date) (unknown) (unknown) PT: PT schedul ed out for March 2023 at [facility] (units unknown) (unknown) (unknown) (no date) (unknown) (unknown) PTSD (post-tra umatic stress disorder) (-1999) (units unknown) (unknown) (unknown) (no date) (unknown) (unknown) Pain Visit (units unknown) (unknown) (unknown) (no date) (unknown) (unknown) Pain location/Radiation: Across the low back, denies radiation (units unknown) (unknown) (unknown) (no date) (unknown) (unknown) Pain ratin /10 today, 9/10 at worst (units unknown) (unknown) (unknown) (no date) (unknown) (unknown) Painful menstr ual periods (-2019) (units unknown) (unknown) (unknown) (no date) (unknown) (unknown) Past medical, surgical, social, and family history is unchanged from prior (units unknown) (unknown) (unknown) (no date) (unknown) (unknown) Patient was neal mohan seen here on 02/07/2023. Since this time she has been seen in (units unknown) (unknown) (unknown) (no date) (unknown) (unknown) Patient will r eturn for []. Risks and benefits were discussed. (units unknown) (unknown) (unknown) (no date) (unknown) (unknown) Patient's pain has been present for >6 weeks and is an average of >6/10 on 0-10 (units unknown) (unknown) (unknown) (no date) (unknown) (unknown) Patient: Hardy Cruz MR# (units unknown) (unknown) (unknown) (no date) (unknown) (unknown) Plan (units unknown) (unknown) (unknown) (no date) (unknown) (unknown) Plan/Recommendations : (units unknown) (unknown) (unknown) (no date) (unknown) (unknown) Polyhydramnios (unit s unknown) (unknown) (unknown) (no date) (unknown) (unknown) depressio n (units unknown) (unknown) (unknown) (no date) (unknown) (unknown) Prescriptions Written: [] (units unknown) (unknown) (unknown) (no date) (unknown) (unknown) Previous Visit Assessment: 'Hardy is a 32-year-old female presenting for further (units unknown) (unknown) (unknown) (no date) (unknown) (unknown) Previous [facility] (units unknown) (unknown) (unknown) (no date) (unknown) (unknown) Previous pain treatments included: (units unknown) (unknown) (unknown) (no date) (unknown) (unknown) Psych: Appropr iate affect, answers questions appropriately (units unknown) (unknown) (unknown) (no date) (unknown) (unknown) Quality and ti carly of pain: constant, deep, dull (units unknown) (unknown) (unknown) (no date) (unknown) (unknown) ROS Narrative (units unknown) (unknown) (unknown) (no date) (unknown) (unknown) ROS Narrative: (unit s unknown) (unknown) (unknown) (no date) (unknown) (unknown) ROS (units unknown) (unknown) (unknown) (no date) (unknown) (unknown) Reason For Visit (un its unknown) (unknown) (unknown) (no date) (unknown) (unknown) Red flag symptoms: ( units unknown) (unknown) (unknown) (no date) (unknown) (unknown) Reflex Right Left (u nits unknown) (unknown) (unknown) (no date) (unknown) (unknown) Reflexes: (units unknown) (unknown) (unknown) (no date) (unknown) (unknown) Relieving fact ors include: lying down (units unknown) (unknown) (unknown) (no date) (unknown) (unknown) Respiratory: Non-labored breathing pattern on RA. No respiratory distress (units unknown) (unknown) (unknown) (no date) (unknown) (unknown) Restless leg syndrom e (units unknown) (unknown) (unknown) (no date) (unknown) (unknown) S1 Ankle Plantarflexion 5/5 5/5 (units unknown) (unknown) (unknown) (no date) (unknown) (unknown) S1-2 Achilles 2+ 2 ( units unknown) (unknown) (unknown) (no date) (unknown) (unknown) Saddle anesthe carlos: denies (units unknown) (unknown) (unknown) (no date) (unknown) (unknown) Safety (units unknown) (unknown) (unknown) (no date) (unknown) (unknown) Segment Action Right Left (units unknown) (unknown) (unknown) (no date) (unknown) (unknown) Segment Reflex Right Left (units unknown) (unknown) (unknown) (no date) (unknown) (unknown) Sensory -? Int act to light touch of bilateral lower extremities. Allodynia (units unknown) (unknown) (unknown) (no date) (unknown) (unknown) Signed By: (units unknown) (unknown) (unknown) (no date) (unknown) (unknown) Skin: No appre ciable rashes or skin breakdown (units unknown) (unknown) (unknown) (no date) (unknown) (unknown) Smoking Status : Former smoker (units unknown) (unknown) (unknown) (no date) (unknown) (unknown) Social History (unit s unknown) (unknown) (unknown) (no date) (unknown) (unknown) Son Hearing loss (un its unknown) (unknown) (unknown) (no date) (unknown) (unknown) Standing: limi hanny due to pain (units unknown) (unknown) (unknown) (no date) (unknown) (unknown) Surgery: denies (uni ts unknown) (unknown) (unknown) (no date) (unknown) (unknown) Surgical Histo ry (Updated 07/12/22 @ 15:10 by Josefina Baumann MD) (units unknown) (unknown) (unknown) (no date) (unknown) (unknown) [facility] (units unknown) (unknown) (unknown) (no date) (unknown) (unknown) This note may have been all or partially generated using voice recognition (units unknown) (unknown) (unknown) (no date) (unknown) (unknown) Tobacco + Subs tance Use (units unknown) (unknown) (unknown) (no date) (unknown) (unknown) Tobacco Status (unit s unknown) (unknown) (unknown) (no date) (unknown) (unknown) Today I have r eviewed available medical information in the patient's medical (units unknown) (unknown) (unknown) (no date) (unknown) (unknown) Type(s) of exe rcise: walking (units unknown) (unknown) (unknown) (no date) (unknown) (unknown) Upper Motor Ne uron Signs: (units unknown) (unknown) (unknown) (no date) (unknown) (unknown) Visit Reasons: Follow Up LSpine/ED Visit @[facility]/XR Results (units unknown) (unknown) (unknown) (no date) (unknown) (unknown) Walking: walks slower due to pain (units unknown) (unknown) (unknown) (no date) (unknown) (unknown) [place] Prescription Monitoring Program (COMMERCIAL REAL ESTATE AGENT) was reviewed. (units unknown) (unknown) (unknown) (no date) (unknown) (unknown) We reviewed et iology, predisposing factor(s), natural course, imaging results as (units unknown) (unknown) (unknown) (no date) (unknown) (unknown) Weakness: denies (un its unknown) (unknown) (unknown) (no date) (unknown) (unknown) Roy teeth extract ed (units unknown) (unknown) (unknown) (no date) (unknown) (unknown) X-ray left verena t 02/25/2023: (units unknown) (unknown) (unknown) (no date) (unknown) (unknown) X-ray lumbar s pine 02/25/2023: (units unknown) (unknown) (unknown) (no date) (unknown) (unknown) a long-term me dication and other NSAIDs should be avoided while on meloxicam.' (units unknown) (unknown) (unknown) (no date) (unknown) (unknown) additional soc ial history: Difficulty other children. Would (units unknown) (unknown) (unknown) (no date) (unknown) (unknown) alcohol intake: form er (units unknown) (unknown) (unknown) (no date) (unknown) (unknown) and Kenalog. H er 2nd visit was on 03/05/2023 for acute on chronic low back (units unknown) (unknown) (unknown) (no date) (unknown) (unknown) and we discuss ed taking this for up to several months.? This is not meant to be (units unknown) (unknown) (unknown) (no date) (unknown) (unknown) arthropathy an d myofascial pain.? I do not feel there is a radicular component (units unknown) (unknown) (unknown) (no date) (unknown) (unknown) back pain and a history of herniated disc in the lumbar spine.? She reports (units unknown) (unknown) (unknown) (no date) (unknown) (unknown) benefits of va rious treatment options were discussed with the patient in great (units unknown) (unknown) (unknown) (no date) (unknown) (unknown) bowel/bladder dysfunction, and perineal numbness were discussed. The patient was (units unknown) (unknown) (unknown) (no date) (unknown) (unknown) bulge at L5-S1 without central canal or neuroforaminal stenosis.? There is also (units unknown) (unknown) (unknown) (no date) (unknown) (unknown) caffeine: Yes (soft drinks in small quantities, well within 200mg limit) (units unknown) (unknown) (unknown) (no date) (unknown) (unknown) cannot tolerat e physical therapy at the current time due to the intensity of the (units unknown) (unknown) (unknown) (no date) (unknown) (unknown) carbon monox d etector in home: Yes (units unknown) (unknown) (unknown) (no date) (unknown) (unknown) changes.? Last ly, there is evidence of multilevel facet hypertrophy.? Lumbar x (units unknown) (unknown) (unknown) (no date) (unknown) (unknown) current occupa tional exposures/hazards: Yes (units unknown) (unknown) (unknown) (no date) (unknown) (unknown) daily servings fruits/ve or more times/day (units unknown) (unknown) (unknown) (no date) (unknown) (unknown) delivery. (units unknown) (unknown) (unknown) (no date) (unknown) (unknown) detail. (units unknown) (unknown) (unknown) (no date) (unknown) (unknown) do you feel sa fe at home: Yes (units unknown) (unknown) (unknown) (no date) (unknown) (unknown) double electri c breast pump 1 ea topical .prn #1 ea 11/01/22 [Rx Confirmed (units unknown) (unknown) (unknown) (no date) (unknown) (unknown) during the pas t year weight has: other (wide fluctuations since last ) (units unknown) (unknown) (unknown) (no date) (unknown) (unknown) education judye l: vocational (some college, certificate programs) (units unknown) (unknown) (unknown) (no date) (unknown) (unknown) evaluation of acute on chronic low back pain.? She reports long history of low (units unknown) (unknown) (unknown) (no date) (unknown) (unknown) evidence of degenerative disc disease at L4-5 and L5-S1 as well as Modic (units unknown) (unknown) (unknown) (no date) (unknown) (unknown) fire extinguis her in home: Yes (units unknown) (unknown) (unknown) (no date) (unknown) (unknown) firearms in ho me: Yes firearms unloaded and locked: Yes (units unknown) (unknown) (unknown) (no date) (unknown) (unknown) flaxseed Aller gy (Severe, Verified 02/07/23 08:41) (units unknown) (unknown) (unknown) (no date) (unknown) (unknown) fracture. She had an injection of the 5th tarsal metatarsal area with Marcaine (units unknown) (unknown) (unknown) (no date) (unknown) (unknown) grade breast p ump that she can have when she goes home from hospital after (units unknown) (unknown) (unknown) (no date) (unknown) (unknown) have occurred. If there are any questions, please contact the Medical Records (units unknown) (unknown) (unknown) (no date) (unknown) (unknown) household memb ers: spouse, family ([id number] and his 3 children (moving out (units unknown) (unknown) (unknown) (no date) (unknown) (unknown) housing: house (unit s unknown) (unknown) (unknown) (no date) (unknown) (unknown) improved sleep , improved mobility, etc. (units unknown) (unknown) (unknown) (no date) (unknown) (unknown) in PT. [] (units unknown) (unknown) (unknown) (no date) (unknown) (unknown) instructed to report to the Emergency department, if these symptoms occur. (units unknown) (unknown) (unknown) (no date) (unknown) (unknown) instructed to stop if any side effects. [] (units unknown) (unknown) (unknown) (no date) (unknown) (unknown) intravenous dr ug use, sustained glucocorticoid use, osteoporosis, or a focal (units unknown) (unknown) (unknown) (no date) (unknown) (unknown) is likely multifactorial including components of vertebrogenic, facet (units unknown) (unknown) (unknown) (no date) (unknown) (unknown) levothyroxine 137 mcg tablet 137 mcg PO DAILY #30 tabs 10/17/22 [Rx Confirmed (units unknown) (unknown) (unknown) (no date) (unknown) (unknown) lives independ ently: Yes (units unknown) (unknown) (unknown) (no date) (unknown) (unknown) local anesthet ic. During that time patient able to participate in ADLs, had (units unknown) (unknown) (unknown) (no date) (unknown) (unknown) marital status : (units unknown) (unknown) (unknown) (no date) (unknown) (unknown) may occur. Occ asional wrong-word or 'sound-alike' substitutions may have (units unknown) (unknown) (unknown) (no date) (unknown) (unknown) meds. [] (units unknown) (unknown) (unknown) (no date) (unknown) (unknown) meloxicam 7.5 mg tablet 7.5 mg PO DAILY #30 tabs 02/07/23 [Rx Confirmed (units unknown) (unknown) (unknown) (no date) (unknown) (unknown) needed - given by recent ED visit (units unknown) (unknown) (unknown) (no date) (unknown) (unknown) negative, Hype ralgesia - negative (units unknown) (unknown) (unknown) (no date) (unknown) (unknown) neurological d eficit with progressive or disabling symptoms. (units unknown) (unknown) (unknown) (no date) (unknown) (unknown) number of children: 3 (units unknown) (unknown) (unknown) (no date) (unknown) (unknown) occupational s tatus: unemployed and previously employed (units unknown) (unknown) (unknown) (no date) (unknown) (unknown) occurred due t o the inherent limitations of voice recognition software. Please (units unknown) (unknown) (unknown) (no date) (unknown) (unknown) of Spinal Cord Injur y) (units unknown) (unknown) (unknown) (no date) (unknown) (unknown) or immunosuppr essive therapy, previous or current cancer diagnosis, history of (units unknown) (unknown) (unknown) (no date) (unknown) (unknown) pain. She rece ived Decadron and Toradol in the emergency department. (units unknown) (unknown) (unknown) (no date) (unknown) (unknown) pain. [] (units unknown) (unknown) (unknown) (no date) (unknown) (unknown) pets and anima ls: Yes (horses) (units unknown) (unknown) (unknown) (no date) (unknown) (unknown) prenat.vits,ca l,min-ir on-folic 1 tab PO DAILY 04/22/22 [History Confirmed (units unknown) (unknown) (unknown) (no date) (unknown) (unknown) rays had not b een performed at the time of this evaluation.? Her low back pain (units unknown) (unknown) (unknown) (no date) (unknown) (unknown) read the note carefully and recognize, using context, where these substitutions (units unknown) (unknown) (unknown) (no date) (unknown) (unknown) really like to meet w/ [facility] prior to delivery and would like Rx for hospital (units unknown) (unknown) (unknown) (no date) (unknown) (unknown) record, includ ing relevant provider notes, laboratory work, and imaging. (units unknown) (unknown) (unknown) (no date) (unknown) (unknown) scale and/or p ain interferes with ADLs. (units unknown) (unknown) (unknown) (no date) (unknown) (unknown) seatbelt use: always (units unknown) (unknown) (unknown) (no date) (unknown) (unknown) second hand ex posure: No (units unknown) (unknown) (unknown) (no date) (unknown) (unknown) software. Alth ough every effort is made to edit content, bookbinder chief errors (units unknown) (unknown) (unknown) (no date) (unknown) (unknown) soon)) and children (units unknown) (unknown) (unknown) (no date) (unknown) (unknown) special roland needs: No (units unknown) (unknown) (unknown) (no date) (unknown) (unknown) starting physi alexey therapy and nonsteroidal medications.? Meloxicam was ordered (units unknown) (unknown) (unknown) (no date) (unknown) (unknown) substance use type: marijuana (in the past, not recently and not while ) (units unknown) (unknown) (unknown) (no date) (unknown) (unknown) the emergency department twice at [facility]. Her 1st visit (units unknown) (unknown) (unknown) (no date) (unknown) (unknown) therapeutic in jections and surgery. The risks, consequences, alternatives and (units unknown) (unknown) (unknown) (no date) (unknown) (unknown) therapy. ?A re ferral was provided for the patient. [] (units unknown) (unknown) (unknown) (no date) (unknown) (unknown) to her pain at this time.? Conservative management was encouraged including (units unknown) (unknown) (unknown) (no date) (unknown) (unknown) visit. (units unknown) (unknown) (unknown) (no date) (unknown) (unknown) was on 023 for left foot pain. X-ray did not show any evidence of acute (units unknown) (unknown) (unknown) (no date) (unknown) (unknown) water heater t emp set < 120 deg: Yes (units unknown) (unknown) (unknown) (no date) (unknown) (unknown) well as treatm ent options including medications, physical therapy/exercise, (units unknown) (unknown) (unknown) (no date) (unknown) (unknown) well-balanced diet: daily or most days (units unknown) (unknown) (unknown) (no date) (unknown) (unknown) with future tr eatment planning. [] (units unknown) (unknown) (unknown) (no date) (unknown) (unknown) without eviden ce of ataxia. Lower quarter stability intact. (units unknown) (unknown) (unknown) (no date) (unknown) (unknown) working smoke detector in home: Yes (units unknown) (unknown) (unknown) (no date) (unknown) (unknown) worsening of h er pain status post epidural blood patch.? MRI showed slight disc (units unknown) (unknown) Result panel 16 (unknown) (no date) (unknown) (unknown) (no value) (units unknown) (unknown) (unknown) (no date) (unknown) (unknown) (0=absent, 1=s light response, 2=brisk/normal, 3=very brisk, 4=clonus) (units unknown) (unknown) (unknown) (no date) (unknown) (unknown) (segments are from the International Standards for Neurological Classification (units unknown) (unknown) (unknown) (no date) (unknown) (unknown) - Activity: Co ntinue activity as tolerated. [] (units unknown) (unknown) (unknown) (no date) (unknown) (unknown) - Chiropractor , acupuncture[] (units unknown) (unknown) (unknown) (no date) (unknown) (unknown) - Continues cl inician directed home exercise program including exercises learned (units unknown) (unknown) (unknown) (no date) (unknown) (unknown) - Education: C auda equina and associated symptoms, including motor weakness, (units unknown) (unknown) (unknown) (no date) (unknown) (unknown) - FADIR: Negat katelyn bilaterally (units unknown) (unknown) (unknown) (no date) (unknown) (unknown) - Follow-up: [] (uni ts unknown) (unknown) (unknown) (no date) (unknown) (unknown) - Hip ROM is: Within normal limits (units unknown) (unknown) (unknown) (no date) (unknown) (unknown) - I discussed risks, benefits and side effects. Additionally, patient was (units unknown) (unknown) (unknown) (no date) (unknown) (unknown) - Imaging: No new imaging indicated at this time. [] (units unknown) (unknown) (unknown) (no date) (unknown) (unknown) - Interventional/Surgica l procedures: None indicated at this time. [] (units unknown) (unknown) (unknown) (no date) (unknown) (unknown) - Lumbar facet loading: Positive bilaterally (units unknown) (unknown) (unknown) (no date) (unknown) (unknown) - Medications: No new prescription at this time. Patient will continue current (units unknown) (unknown) (unknown) (no date) (unknown) (unknown) - Medications: acetaminophen, NSAIDS, neuropathics, muscle relaxants [] (units unknown) (unknown) (unknown) (no date) (unknown) (unknown) - Physical The rapy: Completed 6 week course in the last 6 months OR Patient (units unknown) (unknown) (unknown) (no date) (unknown) (unknown) - Physical therapy/modalities/DME : Patient will likely benefit from physical (units unknown) (unknown) (unknown) (no date) (unknown) (unknown) - Prescription provided and uptitration instructions given if necessary. [] (units unknown) (unknown) (unknown) (no date) (unknown) (unknown) - Previous [] on [] provided []% relief of pain for the expected duration of the (units unknown) (unknown) (unknown) (no date) (unknown) (unknown) - Referrals: N one indicated at this time. [] (units unknown) (unknown) (unknown) (no date) (unknown) (unknown) - SIJ provocat ion testing: Negative bilaterally (units unknown) (unknown) (unknown) (no date) (unknown) (unknown) - Straight Leg Raise: Negative bilaterally (units unknown) (unknown) (unknown) (no date) (unknown) (unknown) 03/20/23 (units unknown) (unknown) (unknown) (no date) (unknown) (unknown) : [id number] (units unknown) (unknown) (unknown) (no date) (unknown) (unknown) ? Denies? (units unknown) (unknown) (unknown) (no date) (unknown) (unknown) ? Inspection - ? No gross appendicular or axial deformities (units unknown) (unknown) (unknown) (no date) (unknown) (unknown) ? Palpation -tenderness to palpation midline low back (units unknown) (unknown) (unknown) (no date) (unknown) (unknown) ? ROM -lumbar extension limited due to pain (units unknown) (unknown) (unknown) (no date) (unknown) (unknown) ? Special tests (uni ts unknown) (unknown) (unknown) (no date) (unknown) (unknown) ? Acetaminophen - doesn't help (units unknown) (unknown) (unknown) (no date) (unknown) (unknown) ? Antidepressants - celexa - no longer taking (units unknown) (unknown) (unknown) (no date) (unknown) (unknown) ? Antiepileptics - denies (units unknown) (unknown) (unknown) (no date) (unknown) (unknown) ? Mu scle Relaxants - denies (units unknown) (unknown) (unknown) (no date) (unknown) (unknown) ? NS AIDs - naproxen, ibuprofen (units unknown) (unknown) (unknown) (no date) (unknown) (unknown) ? Op ioids - Hydrocodone-acetaminop hen 5-325 mg 1 tab q.6 hours as (units unknown) (unknown) (unknown) (no date) (unknown) (unknown) ? St eroids - denies (units unknown) (unknown) (unknown) (no date) (unknown) (unknown) ? To picals - lidoderm (units unknown) (unknown) (unknown) (no date) (unknown) (unknown) ADHD (units unknown) (unknown) (unknown) (no date) (unknown) (unknown) Accompanied by : Self / Same As Patient (units unknown) (unknown) (unknown) (no date) (unknown) (unknown) Additional Soc ial History (units unknown) (unknown) (unknown) (no date) (unknown) (unknown) Age/Sex: 32 / F Date of Service: (units unknown) (unknown) (unknown) (no date) (unknown) (unknown) Aggravating fa ctors include: sitting, chores that require bending (units unknown) (unknown) (unknown) (no date) (unknown) (unknown) Alcoholism (units unknown) (unknown) (unknown) (no date) (unknown) (unknown) All other syst ems reviewed and are unremarkable except as noted in HPI. (units unknown) (unknown) (unknown) (no date) (unknown) (unknown) Allergies (units unknown) (unknown) (unknown) (no date) (unknown) (unknown) [place] [address] (units unknown) (unknown) (unknown) (no date) (unknown) (unknown) Anaphylaxis (units unknown) (unknown) (unknown) (no date) (unknown) (unknown) Anesthesia (units unknown) (unknown) (unknown) (no date) (unknown) (unknown) Assessment + Plan (u nits unknown) (unknown) (unknown) (no date) (unknown) (unknown) Assessment: (units unknown) (unknown) (unknown) (no date) (unknown) (unknown) Attending Dr: Celio Tejada MD (units unknown) (unknown) (unknown) (no date) (unknown) (unknown) [employer] Abby ngoing Downgoing (units unknown) (unknown) (unknown) (no date) (unknown) (unknown) Bowel and blad yan: No loss of control (units unknown) (unknown) (unknown) (no date) (unknown) (unknown) Carpal tunnel syndrome (-2017) (units unknown) (unknown) (unknown) (no date) (unknown) (unknown) Chart review: (units unknown) (unknown) (unknown) (no date) (unknown) (unknown) Chief Complaint (uni ts unknown) (unknown) (unknown) (no date) (unknown) (unknown) Chief Complain t: Follow-up (units unknown) (unknown) (unknown) (no date) (unknown) (unknown) Clonus None None (un its unknown) (unknown) (unknown) (no date) (unknown) (unknown) Conservative management includes: (units unknown) (unknown) (unknown) (no date) (unknown) (unknown) Continue [facility] physical therapy. [] (units unknown) (unknown) (unknown) (no date) (unknown) (unknown) Continue home exercise program. 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 (units unknown) (unknown) (unknown) (no date) (unknown) (unknown) Details: (units unknown) (unknown) (unknown) (no date) (unknown) (unknown) Diet and Exercise (u nits unknown) (unknown) (unknown) (no date) (unknown) (unknown) Documented By: Celio Tejada MD 04/04/23 0855 (units unknown) (unknown) (unknown) (no date) (unknown) (unknown) Draft (units unknown) (unknown) (unknown) (no date) (unknown) (unknown) Exam Narrative (unit s unknown) (unknown) (unknown) (no date) (unknown) (unknown) Exam Narrative: (uni ts unknown) (unknown) (unknown) (no date) (unknown) (unknown) Exam (units unknown) (unknown) (unknown) (no date) (unknown) (unknown) FOLLOW UP BACK PAIN (units unknown) (unknown) (unknown) (no date) (unknown) (unknown) Family History (Updated 06/08/22 @ 21:23 by Aurora Arevalo) (units unknown) (unknown) (unknown) (no date) (unknown) (unknown) Father Diabete s mellitus (units unknown) (unknown) (unknown) (no date) (unknown) (unknown) Foot pain () (u nits unknown) (unknown) (unknown) (no date) (unknown) (unknown) Gait/Station - Non-antalgic gait. Heel/toe walking intact. Tandem gait normal (units unknown) (unknown) (unknown) (no date) (unknown) (unknown) General: Well-nourished, well-developed, female in no acute distress (units unknown) (unknown) (unknown) (no date) (unknown) (unknown) HPI (units unknown) (unknown) (unknown) (no date) (unknown) (unknown) Heavy menstrua l period () (units unknown) (unknown) (unknown) (no date) (unknown) (unknown) History of polyhydramnios (units unknown) (unknown) (unknown) (no date) (unknown) (unknown) History of surgery ( units unknown) (unknown) (unknown) (no date) (unknown) (unknown) Intake Clinical Staf f (units unknown) (unknown) (unknown) (no date) (unknown) (unknown) Intake Note: (units unknown) (unknown) (unknown) (no date) (unknown) (unknown) Intake perform ed by: Shell Portillo (units unknown) (unknown) (unknown) (no date) (unknown) (unknown) Intake (units unknown) (unknown) (unknown) (no date) (unknown) (unknown) Interval History: (u nits unknown) (unknown) (unknown) (no date) (unknown) (unknown) Intervention:?Date:?Outcome:?? ? (units unknown) (unknown) (unknown) (no date) (unknown) (unknown) JUSTIFICATION OF MEDICAL NECESSITY (units unknown) (unknown) (unknown) (no date) (unknown) (unknown) L-spine/T-spin e/C-spin e MRI ordered to better delineate the anatomy and help (units unknown) (unknown) (unknown) (no date) (unknown) (unknown) L2 Hip Flexion 5/5 5/5? (units unknown) (unknown) (unknown) (no date) (unknown) (unknown) L3 Knee Extens ion 5/5 5/5 (units unknown) (unknown) (unknown) (no date) (unknown) (unknown) L3-4 Patella 2+ 2 (u nits unknown) (unknown) (unknown) (no date) (unknown) (unknown) L4 Ankle Dorsi flexion 5/5 5/5 (units unknown) (unknown) (unknown) (no date) (unknown) (unknown) L5 Long Toe Ex tension 5/5 5/5 (units unknown) (unknown) (unknown) (no date) (unknown) (unknown) LS XR 02/25/23 (unit s unknown) (unknown) (unknown) (no date) (unknown) (unknown) Lidocaine patch 5% P RN (units unknown) (unknown) (unknown) (no date) (unknown) (unknown) Loc: PAIN (units unknown) (unknown) (unknown) (no date) (unknown) (unknown) Low back pain (units unknown) (unknown) (unknown) (no date) (unknown) (unknown) MSK: System re viewed and no additional complaints, except as documented. (units unknown) (unknown) (unknown) (no date) (unknown) (unknown) Medical Histor y (Updated 02/07/23 @ 10:11 by Celio Tejada MD) (units unknown) (unknown) (unknown) (no date) (unknown) (unknown) Medications: (units unknown) (unknown) (unknown) (no date) (unknown) (unknown) Mental health proble m (units unknown) (unknown) (unknown) (no date) (unknown) (unknown) Mild degenerat katelyn changes of L4-5 and L5-S1. (units unknown) (unknown) (unknown) (no date) (unknown) (unknown) Mother Depression (u nits unknown) (unknown) (unknown) (no date) (unknown) (unknown) Motor (units unknown) (unknown) (unknown) (no date) (unknown) (unknown) Musculoskeletal: (un its unknown) (unknown) (unknown) (no date) (unknown) (unknown) Nearsightedness (uni ts unknown) (unknown) (unknown) (no date) (unknown) (unknown) Neuro: System reviewed and no additional complaints, except as documented. (units unknown) (unknown) (unknown) (no date) (unknown) (unknown) Neurologic: (units unknown) (unknown) (unknown) (no date) (unknown) (unknown) No evidence of acute bony abnormality of the left foot. (units unknown) (unknown) (unknown) (no date) (unknown) (unknown) Not indicated at this time. [] (units unknown) (unknown) (unknown) (no date) (unknown) (unknown) Numbness/Tingl ing: occasional tingling of the posterior left thigh (units unknown) (unknown) (unknown) (no date) (unknown) (unknown) Objective Data (unit s unknown) (unknown) (unknown) (no date) (unknown) (unknown) Objective Data: (uni ts unknown) (unknown) (unknown) (no date) (unknown) (unknown) Onset/Context of linh n: (units unknown) (unknown) (unknown) (no date) (unknown) (unknown) Onset: chronic , worsened after EBP (units unknown) (unknown) (unknown) (no date) (unknown) (unknown) Other: denies (units unknown) (unknown) (unknown) (no date) (unknown) (unknown) PFSH (units unknown) (unknown) (unknown) (no date) (unknown) (unknown) PT: PT schedul ed out for March 2023 at [facility] (units unknown) (unknown) (unknown) (no date) (unknown) (unknown) PTSD (post-tra umatic stress disorder) (-1999) (units unknown) (unknown) (unknown) (no date) (unknown) (unknown) Pain Visit (units unknown) (unknown) (unknown) (no date) (unknown) (unknown) Pain location/Radiation: Across the low back, denies radiation (units unknown) (unknown) (unknown) (no date) (unknown) (unknown) Pain ratin /10 today, 9/10 at worst (units unknown) (unknown) (unknown) (no date) (unknown) (unknown) Painful menstr ual periods () (units unknown) (unknown) (unknown) (no date) (unknown) (unknown) Past medical, surgical, social, and family history is unchanged from prior (units unknown) (unknown) (unknown) (no date) (unknown) (unknown) Patient was neal seen here on 02/07/2023.? Since this time she has been seen in (units unknown) (unknown) (unknown) (no date) (unknown) (unknown) Patient will r eturn for []. Risks and benefits were discussed. (units unknown) (unknown) (unknown) (no date) (unknown) (unknown) Patient's pain has been present for >6 weeks and is an average of >6/10 on 0-10 (units unknown) (unknown) (unknown) (no date) (unknown) (unknown) Patient: Hardy Cruz MR# (units unknown) (unknown) (unknown) (no date) (unknown) (unknown) Plan (units unknown) (unknown) (unknown) (no date) (unknown) (unknown) Plan/Recommendations : (units unknown) (unknown) (unknown) (no date) (unknown) (unknown) Polyhydramnios (unit s unknown) (unknown) (unknown) (no date) (unknown) (unknown) depressio n (units unknown) (unknown) (unknown) (no date) (unknown) (unknown) Prescriptions Written: [] (units unknown) (unknown) (unknown) (no date) (unknown) (unknown) Previous Visit Assessment: 'Hardy is a 32-year-old female presenting for further (units unknown) (unknown) (unknown) (no date) (unknown) (unknown) Previous [facility] [place] section (units unknown) (unknown) (unknown) (no date) (unknown) (unknown) Previous pain treatments included: (units unknown) (unknown) (unknown) (no date) (unknown) (unknown) Psych: Appropr iate affect, answers questions appropriately (units unknown) (unknown) (unknown) (no date) (unknown) (unknown) Quality and ti carly of pain: constant, deep, dull (units unknown) (unknown) (unknown) (no date) (unknown) (unknown) ROS Narrative (units unknown) (unknown) (unknown) (no date) (unknown) (unknown) ROS Narrative: (unit s unknown) (unknown) (unknown) (no date) (unknown) (unknown) ROS (units unknown) (unknown) (unknown) (no date) (unknown) (unknown) Reason For Visit (un its unknown) (unknown) (unknown) (no date) (unknown) (unknown) Red flag symptoms: ( units unknown) (unknown) (unknown) (no date) (unknown) (unknown) Reflex Right Left (u nits unknown) (unknown) (unknown) (no date) (unknown) (unknown) Reflexes: (units unknown) (unknown) (unknown) (no date) (unknown) (unknown) Relieving fact ors include: lying down (units unknown) (unknown) (unknown) (no date) (unknown) (unknown) Respiratory: Non-labored breathing pattern on RA. No respiratory distress (units unknown) (unknown) (unknown) (no date) (unknown) (unknown) Restless leg syndrom e (units unknown) (unknown) (unknown) (no date) (unknown) (unknown) S1 Ankle Plantarflexion 5/5 5/5 (units unknown) (unknown) (unknown) (no date) (unknown) (unknown) S1-2 Achilles 2+ 2 ( units unknown) (unknown) (unknown) (no date) (unknown) (unknown) Saddle anesthe carlos: denies (units unknown) (unknown) (unknown) (no date) (unknown) (unknown) Safety (units unknown) (unknown) (unknown) (no date) (unknown) (unknown) Segment Action Right Left (units unknown) (unknown) (unknown) (no date) (unknown) (unknown) Segment Reflex Right Left (units unknown) (unknown) (unknown) (no date) (unknown) (unknown) Sensory -? Int act to light touch of bilateral lower extremities. Allodynia (units unknown) (unknown) (unknown) (no date) (unknown) (unknown) Signed By: (units unknown) (unknown) (unknown) (no date) (unknown) (unknown) Skin: No appre ciable rashes or skin breakdown (units unknown) (unknown) (unknown) (no date) (unknown) (unknown) Smoking Status : Former smoker (units unknown) (unknown) (unknown) (no date) (unknown) (unknown) Social History (unit s unknown) (unknown) (unknown) (no date) (unknown) (unknown) Son Hearing loss (un its unknown) (unknown) (unknown) (no date) (unknown) (unknown) Standing: limi hanny due to pain (units unknown) (unknown) (unknown) (no date) (unknown) (unknown) Surgery: denies (uni ts unknown) (unknown) (unknown) (no date) (unknown) (unknown) Surgical Histo ry (Updated 07/12/22 @ 15:10 by Josefina Baumann MD) (units unknown) (unknown) (unknown) (no date) (unknown) (unknown) [facility] (units unknown) (unknown) (unknown) (no date) (unknown) (unknown) This note may have been all or partially generated using voice recognition (units unknown) (unknown) (unknown) (no date) (unknown) (unknown) Tobacco + Subs tance Use (units unknown) (unknown) (unknown) (no date) (unknown) (unknown) Tobacco Status (unit s unknown) (unknown) (unknown) (no date) (unknown) (unknown) Today I have r eviewed available medical information in the patient's medical (units unknown) (unknown) (unknown) (no date) (unknown) (unknown) Type(s) of exe rcise: walking (units unknown) (unknown) (unknown) (no date) (unknown) (unknown) Upper Motor Ne uron Signs: (units unknown) (unknown) (unknown) (no date) (unknown) (unknown) Visit Reasons: follow up (was in the ER) (units unknown) (unknown) (unknown) (no date) (unknown) (unknown) [facility] (units unknown) (unknown) (unknown) (no date) (unknown) (unknown) Walking: walks slower due to pain (units unknown) (unknown) (unknown) (no date) (unknown) (unknown) [place] Prescription Monitoring Program (COMMERCIAL REAL ESTATE AGENT) was reviewed. (units unknown) (unknown) (unknown) (no date) (unknown) (unknown) We reviewed et iology, predisposing factor(s), natural course, imaging results as (units unknown) (unknown) (unknown) (no date) (unknown) (unknown) Weakness: denies (un its unknown) (unknown) (unknown) (no date) (unknown) (unknown) Roy teeth extract ed (units unknown) (unknown) (unknown) (no date) (unknown) (unknown) X-ray left verena t 02/25/2023: (units unknown) (unknown) (unknown) (no date) (unknown) (unknown) X-ray lumbar s pine 02/25/2023: (units unknown) (unknown) (unknown) (no date) (unknown) (unknown) a long-term me dication and other NSAIDs should be avoided while on meloxicam.' (units unknown) (unknown) (unknown) (no date) (unknown) (unknown) additional soc ial history: Difficulty other children. Would (units unknown) (unknown) (unknown) (no date) (unknown) (unknown) alcohol intake: form er (units unknown) (unknown) (unknown) (no date) (unknown) (unknown) and Kenalog.? Her 2nd visit was on 03/05/2023 for acute on chronic low back (units unknown) (unknown) (unknown) (no date) (unknown) (unknown) and we discuss ed taking this for up to several months.? This is not meant to be (units unknown) (unknown) (unknown) (no date) (unknown) (unknown) arthropathy an d myofascial pain.? I do not feel there is a radicular component (units unknown) (unknown) (unknown) (no date) (unknown) (unknown) back pain and a history of herniated disc in the lumbar spine.? She reports (units unknown) (unknown) (unknown) (no date) (unknown) (unknown) benefits of va rious treatment options were discussed with the patient in great (units unknown) (unknown) (unknown) (no date) (unknown) (unknown) bowel/bladder dysfunction, and perineal numbness were discussed. The patient was (units unknown) (unknown) (unknown) (no date) (unknown) (unknown) bulge at L5-S1 without central canal or neuroforaminal stenosis.? There is also (units unknown) (unknown) (unknown) (no date) (unknown) (unknown) caffeine: Yes (soft drinks in small quantities, well within 200mg limit) (units unknown) (unknown) (unknown) (no date) (unknown) (unknown) cannot tolerat e physical therapy at the current time due to the intensity of the (units unknown) (unknown) (unknown) (no date) (unknown) (unknown) carbon monox d etector in home: Yes (units unknown) (unknown) (unknown) (no date) (unknown) (unknown) changes.? Last ly, there is evidence of multilevel facet hypertrophy.? Lumbar x (units unknown) (unknown) (unknown) (no date) (unknown) (unknown) current occupa tional exposures/hazards: Yes (units unknown) (unknown) (unknown) (no date) (unknown) (unknown) daily servings fruits/ve or more times/day (units unknown) (unknown) (unknown) (no date) (unknown) (unknown) delivery. (units unknown) (unknown) (unknown) (no date) (unknown) (unknown) detail. (units unknown) (unknown) (unknown) (no date) (unknown) (unknown) do you feel sa fe at home: Yes (units unknown) (unknown) (unknown) (no date) (unknown) (unknown) during the pas t year weight has: other (wide fluctuations since last ) (units unknown) (unknown) (unknown) (no date) (unknown) (unknown) education matt [place] angel: vocational (some college, certificate programs) (units unknown) (unknown) (unknown) (no date) (unknown) (unknown) evaluation of acute on chronic low back pain.? She reports long history of low (units unknown) (unknown) (unknown) (no date) (unknown) (unknown) evidence of degenerative disc disease at L4-5 and L5-S1 as well as Modic (units unknown) (unknown) (unknown) (no date) (unknown) (unknown) fire extinguis her in home: Yes (units unknown) (unknown) (unknown) (no date) (unknown) (unknown) firearms in ho me: Yes firearms unloaded and locked: Yes (units unknown) (unknown) (unknown) (no date) (unknown) (unknown) flaxseed Aller gy (Severe, Verified 02/07/23 08:41) (units unknown) (unknown) (unknown) (no date) (unknown) (unknown) fracture.? She had an injection of the 5th tarsal metatarsal area with Marcaine (units unknown) (unknown) (unknown) (no date) (unknown) (unknown) grade breast p ump that she can have when she goes home from hospital after (units unknown) (unknown) (unknown) (no date) (unknown) (unknown) have occurred. If there are any questions, please contact the Medical Records (units unknown) (unknown) (unknown) (no date) (unknown) (unknown) household memb ers: spouse, family ([id number] and his 3 children (moving out (units unknown) (unknown) (unknown) (no date) (unknown) (unknown) housing: house (unit s unknown) (unknown) (unknown) (no date) (unknown) (unknown) improved sleep , improved mobility, etc. (units unknown) (unknown) (unknown) (no date) (unknown) (unknown) in PT. [] (units unknown) (unknown) (unknown) (no date) (unknown) (unknown) instructed to report to the Emergency department, if these symptoms occur. (units unknown) (unknown) (unknown) (no date) (unknown) (unknown) instructed to stop if any side effects. [] (units unknown) (unknown) (unknown) (no date) (unknown) (unknown) intravenous dr ug use, sustained glucocorticoid use, osteoporosis, or a focal (units unknown) (unknown) (unknown) (no date) (unknown) (unknown) is likely multifactorial including components of vertebrogenic, facet (units unknown) (unknown) (unknown) (no date) (unknown) (unknown) lives independ ently: Yes (units unknown) (unknown) (unknown) (no date) (unknown) (unknown) local anesthet ic. During that time patient able to participate in ADLs, had (units unknown) (unknown) (unknown) (no date) (unknown) (unknown) marital status : (units unknown) (unknown) (unknown) (no date) (unknown) (unknown) may occur. Occ asional wrong-word or 'sound-alike' substitutions may have (units unknown) (unknown) (unknown) (no date) (unknown) (unknown) meds. [] (units unknown) (unknown) (unknown) (no date) (unknown) (unknown) needed - given by recent ED visit (units unknown) (unknown) (unknown) (no date) (unknown) (unknown) negative, Hype ralgesia - negative (units unknown) (unknown) (unknown) (no date) (unknown) (unknown) neurological d eficit with progressive or disabling symptoms. (units unknown) (unknown) (unknown) (no date) (unknown) (unknown) number of children: 3 (units unknown) (unknown) (unknown) (no date) (unknown) (unknown) occupational s tatus: unemployed and previously employed (units unknown) (unknown) (unknown) (no date) (unknown) (unknown) occurred due t o the inherent limitations of voice recognition software. Please (units unknown) (unknown) (unknown) (no date) (unknown) (unknown) of Spinal Cord Injur y) (units unknown) (unknown) (unknown) (no date) (unknown) (unknown) or immunosuppr essive therapy, previous or current cancer diagnosis, history of (units unknown) (unknown) (unknown) (no date) (unknown) (unknown) pain. [] (units unknown) (unknown) (unknown) (no date) (unknown) (unknown) pain.? She rec eived Decadron and Toradol in the emergency department. (units unknown) (unknown) (unknown) (no date) (unknown) (unknown) pets and anima ls: Yes (horses) (units unknown) (unknown) (unknown) (no date) (unknown) (unknown) rays had not b een performed at the time of this evaluation.? Her low back pain (units unknown) (unknown) (unknown) (no date) (unknown) (unknown) read the note carefully and recognize, using context, where these substitutions (units unknown) (unknown) (unknown) (no date) (unknown) (unknown) really like to meet w/ [facility] prior to delivery and would like Rx for hospital (units unknown) (unknown) (unknown) (no date) (unknown) (unknown) record, includ ing relevant provider notes, laboratory work, and imaging. (units unknown) (unknown) (unknown) (no date) (unknown) (unknown) scale and/or p ain interferes with ADLs. (units unknown) (unknown) (unknown) (no date) (unknown) (unknown) seatbelt use: always (units unknown) (unknown) (unknown) (no date) (unknown) (unknown) second hand ex posure: No (units unknown) (unknown) (unknown) (no date) (unknown) (unknown) software. Alth ough every effort is made to edit content, bookbinder chief errors (units unknown) (unknown) (unknown) (no date) (unknown) (unknown) soon)) and children (units unknown) (unknown) (unknown) (no date) (unknown) (unknown) special roland needs: No (units unknown) (unknown) (unknown) (no date) (unknown) (unknown) starting physi alexey therapy and nonsteroidal medications.? Meloxicam was ordered (units unknown) (unknown) (unknown) (no date) (unknown) (unknown) substance use type: marijuana (in the past, not recently and not while ) (units unknown) (unknown) (unknown) (no date) (unknown) (unknown) the emergency department twice at [facility].? Her 1st visit (units unknown) (unknown) (unknown) (no date) (unknown) (unknown) therapeutic in jections and surgery. The risks, consequences, alternatives and (units unknown) (unknown) (unknown) (no date) (unknown) (unknown) therapy. ?A re ferral was provided for the patient. [] (units unknown) (unknown) (unknown) (no date) (unknown) (unknown) to her pain at this time.? Conservative management was encouraged including (units unknown) (unknown) (unknown) (no date) (unknown) (unknown) visit. (units unknown) (unknown) (unknown) (no date) (unknown) (unknown) was on 023 for left foot pain.? X-ray did not show any evidence of acute (units unknown) (unknown) (unknown) (no date) (unknown) (unknown) water heater t emp set < 120 deg: Yes (units unknown) (unknown) (unknown) (no date) (unknown) (unknown) well as treatm ent options including medications, physical therapy/exercise, (units unknown) (unknown) (unknown) (no date) (unknown) (unknown) well-balanced diet: daily or most days (units unknown) (unknown) (unknown) (no date) (unknown) (unknown) with future tr eatment planning. [] (units unknown) (unknown) (unknown) (no date) (unknown) (unknown) without eviden ce of ataxia. Lower quarter stability intact. (units unknown) (unknown) (unknown) (no date) (unknown) (unknown) working smoke detector in home: Yes (units unknown) (unknown) (unknown) (no date) (unknown) (unknown) worsening of h er pain status post epidural blood patch.? MRI showed slight disc (units unknown) (unknown) Result panel 17 (unknown) (no date) (unknown) (unknown) (no value) (units unknown) (unknown) (unknown) (no date) (unknown) (unknown) (0=absent, 1=s light response, 2=brisk/normal, 3=very brisk, 4=clonus) (units unknown) (unknown) (unknown) (no date) (unknown) (unknown) (segments are from the International Standards for Neurological Classification (units unknown) (unknown) (unknown) (no date) (unknown) (unknown) - Activity: Co ntinue activity as tolerated. [] (units unknown) (unknown) (unknown) (no date) (unknown) (unknown) - Chiropractor , acupuncture[] (units unknown) (unknown) (unknown) (no date) (unknown) (unknown) - Continues cl inician directed home exercise program including exercises learned (units unknown) (unknown) (unknown) (no date) (unknown) (unknown) - Education: C auda equina and associated symptoms, including motor weakness, (units unknown) (unknown) (unknown) (no date) (unknown) (unknown) - FADIR: Negat katelyn bilaterally (units unknown) (unknown) (unknown) (no date) (unknown) (unknown) - Follow-up: [] (uni ts unknown) (unknown) (unknown) (no date) (unknown) (unknown) - Hip ROM is: Within normal limits (units unknown) (unknown) (unknown) (no date) (unknown) (unknown) - I discussed risks, benefits and side effects. Additionally, patient was (units unknown) (unknown) (unknown) (no date) (unknown) (unknown) - Imaging: No new imaging indicated at this time. [] (units unknown) (unknown) (unknown) (no date) (unknown) (unknown) - Interventional/Surgica l procedures: None indicated at this time. [] (units unknown) (unknown) (unknown) (no date) (unknown) (unknown) - Lumbar facet loading: Positive bilaterally (units unknown) (unknown) (unknown) (no date) (unknown) (unknown) - Medications: No new prescription at this time. Patient will continue current (units unknown) (unknown) (unknown) (no date) (unknown) (unknown) - Medications: acetaminophen, NSAIDS, neuropathics, muscle relaxants [] (units unknown) (unknown) (unknown) (no date) (unknown) (unknown) - Physical The rapy: Completed 6 week course in the last 6 months OR Patient (units unknown) (unknown) (unknown) (no date) (unknown) (unknown) - Physical therapy/modalities/DME : Patient will likely benefit from physical (units unknown) (unknown) (unknown) (no date) (unknown) (unknown) - Prescription provided and uptitration instructions given if necessary. [] (units unknown) (unknown) (unknown) (no date) (unknown) (unknown) - Previous [] on [] provided []% relief of pain for the expected duration of the (units unknown) (unknown) (unknown) (no date) (unknown) (unknown) - Referrals: N one indicated at this time. [] (units unknown) (unknown) (unknown) (no date) (unknown) (unknown) - SIJ provocat ion testing: Negative bilaterally (units unknown) (unknown) (unknown) (no date) (unknown) (unknown) - Straight Leg Raise: Negative bilaterally (units unknown) (unknown) (unknown) (no date) (unknown) (unknown) 03/20/23 (units unknown) (unknown) (unknown) (no date) (unknown) (unknown) : [id number] (units unknown) (unknown) (unknown) (no date) (unknown) (unknown) ? Denies? (units unknown) (unknown) (unknown) (no date) (unknown) (unknown) ? Inspection - ? No gross appendicular or axial deformities (units unknown) (unknown) (unknown) (no date) (unknown) (unknown) ? Palpation -tenderness to palpation midline low back (units unknown) (unknown) (unknown) (no date) (unknown) (unknown) ? ROM -lumbar extension limited due to pain (units unknown) (unknown) (unknown) (no date) (unknown) (unknown) ? Special tests (uni ts unknown) (unknown) (unknown) (no date) (unknown) (unknown) ? Acetaminophen - doesn't help (units unknown) (unknown) (unknown) (no date) (unknown) (unknown) ? Antidepressants - celexa - no longer taking (units unknown) (unknown) (unknown) (no date) (unknown) (unknown) ? Antiepileptics - denies (units unknown) (unknown) (unknown) (no date) (unknown) (unknown) ? Mu scle Relaxants - denies (units unknown) (unknown) (unknown) (no date) (unknown) (unknown) ? NS AIDs - naproxen, ibuprofen (units unknown) (unknown) (unknown) (no date) (unknown) (unknown) ? Op ioids - Hydrocodone-acetaminop hen 5-325 mg 1 tab q.6 hours as (units unknown) (unknown) (unknown) (no date) (unknown) (unknown) ? St eroids - denies (units unknown) (unknown) (unknown) (no date) (unknown) (unknown) ? To picals - lidoderm (units unknown) (unknown) (unknown) (no date) (unknown) (unknown) ADHD (units unknown) (unknown) (unknown) (no date) (unknown) (unknown) Accompanied by : Self / Same As Patient (units unknown) (unknown) (unknown) (no date) (unknown) (unknown) Additional Soc ial History (units unknown) (unknown) (unknown) (no date) (unknown) (unknown) Age/Sex: 32 / F Date of Service: (units unknown) (unknown) (unknown) (no date) (unknown) (unknown) Aggravating fa ctors include: sitting, chores that require bending (units unknown) (unknown) (unknown) (no date) (unknown) (unknown) Alcoholism (units unknown) (unknown) (unknown) (no date) (unknown) (unknown) All other syst ems reviewed and are unremarkable except as noted in HPI. (units unknown) (unknown) (unknown) (no date) (unknown) (unknown) Allergies (units unknown) (unknown) (unknown) (no date) (unknown) (unknown) [place] [address] (units unknown) (unknown) (unknown) (no date) (unknown) (unknown) Anaphylaxis (units unknown) (unknown) (unknown) (no date) (unknown) (unknown) Anesthesia (units unknown) (unknown) (unknown) (no date) (unknown) (unknown) Assessment + Plan (u nits unknown) (unknown) (unknown) (no date) (unknown) (unknown) Assessment: (units unknown) (unknown) (unknown) (no date) (unknown) (unknown) Attending Dr: Celio Tejada MD (units unknown) (unknown) (unknown) (no date) (unknown) (unknown) [employer]by ngoing Downgoing (units unknown) (unknown) (unknown) (no date) (unknown) (unknown) Bowel and blad yan: No loss of control (units unknown) (unknown) (unknown) (no date) (unknown) (unknown) Carpal tunnel syndrome (-2018) (units unknown) (unknown) (unknown) (no date) (unknown) (unknown) Chart review: (units unknown) (unknown) (unknown) (no date) (unknown) (unknown) Chief Complaint (uni ts unknown) (unknown) (unknown) (no date) (unknown) (unknown) Chief Complain t: Follow-up (units unknown) (unknown) (unknown) (no date) (unknown) (unknown) Clonus None None (un its unknown) (unknown) (unknown) (no date) (unknown) (unknown) Conservative management includes: (units unknown) (unknown) (unknown) (no date) (unknown) (unknown) Continue bobo physical therapy. [] (units unknown) (unknown) (unknown) (no date) (unknown) (unknown) Continue home exercise program. 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 (units unknown) (unknown) (unknown) (no date) (unknown) (unknown) Details: (units unknown) (unknown) (unknown) (no date) (unknown) (unknown) Diet and Exercise (u nits unknown) (unknown) (unknown) (no date) (unknown) (unknown) Documented By: Celio Tejada MD 04/04/23 0855 (units unknown) (unknown) (unknown) (no date) (unknown) (unknown) Draft (units unknown) (unknown) (unknown) (no date) (unknown) (unknown) Exam Narrative (unit s unknown) (unknown) (unknown) (no date) (unknown) (unknown) Exam Narrative: (uni ts unknown) (unknown) (unknown) (no date) (unknown) (unknown) Exam (units unknown) (unknown) (unknown) (no date) (unknown) (unknown) FOLLOW UP BACK PAIN (units unknown) (unknown) (unknown) (no date) (unknown) (unknown) Family History (Updated 06/08/22 @ 21:23 by Aurora Arevalo) (units unknown) (unknown) (unknown) (no date) (unknown) (unknown) Father Diabete s mellitus (units unknown) (unknown) (unknown) (no date) (unknown) (unknown) Foot pain () (u nits unknown) (unknown) (unknown) (no date) (unknown) (unknown) Gait/Station - Non-antalgic gait. Heel/toe walking intact. Tandem gait normal (units unknown) (unknown) (unknown) (no date) (unknown) (unknown) General: Well-nourished, well-developed, female in no acute distress (units unknown) (unknown) (unknown) (no date) (unknown) (unknown) HPI (units unknown) (unknown) (unknown) (no date) (unknown) (unknown) Heavy menstrua l period () (units unknown) (unknown) (unknown) (no date) (unknown) (unknown) History of polyhydramnios (units unknown) (unknown) (unknown) (no date) (unknown) (unknown) History of surgery ( units unknown) (unknown) (unknown) (no date) (unknown) (unknown) Intake Clinical Staf f (units unknown) (unknown) (unknown) (no date) (unknown) (unknown) Intake Note: (units unknown) (unknown) (unknown) (no date) (unknown) (unknown) Intake perform ed by: Shell Portillo (units unknown) (unknown) (unknown) (no date) (unknown) (unknown) Intake (units unknown) (unknown) (unknown) (no date) (unknown) (unknown) Interval History: (u nits unknown) (unknown) (unknown) (no date) (unknown) (unknown) Intervention:?Date:?Outcome:?? ? (units unknown) (unknown) (unknown) (no date) (unknown) (unknown) JUSTIFICATION OF MEDICAL NECESSITY (units unknown) (unknown) (unknown) (no date) (unknown) (unknown) L-spine/T-spin e/C-spin e MRI ordered to better delineate the anatomy and help (units unknown) (unknown) (unknown) (no date) (unknown) (unknown) L2 Hip Flexion 5/5 5/5? (units unknown) (unknown) (unknown) (no date) (unknown) (unknown) L3 Knee Extens ion 5/5 5/5 (units unknown) (unknown) (unknown) (no date) (unknown) (unknown) L3-4 Patella 2+ 2 (u nits unknown) (unknown) (unknown) (no date) (unknown) (unknown) L4 Ankle Dorsi flexion 5/5 5/5 (units unknown) (unknown) (unknown) (no date) (unknown) (unknown) L5 Long Toe Ex tension 5/5 5/5 (units unknown) (unknown) (unknown) (no date) (unknown) (unknown) LS XR 02/25/23 (unit s unknown) (unknown) (unknown) (no date) (unknown) (unknown) Lidocaine patch 5% P RN (units unknown) (unknown) (unknown) (no date) (unknown) (unknown) Loc: PAIN (units unknown) (unknown) (unknown) (no date) (unknown) (unknown) Low back pain (units unknown) (unknown) (unknown) (no date) (unknown) (unknown) MSK: System re viewed and no additional complaints, except as documented. (units unknown) (unknown) (unknown) (no date) (unknown) (unknown) Medical Histor y (Updated 02/07/23 @ 10:11 by Celio Tejada MD) (units unknown) (unknown) (unknown) (no date) (unknown) (unknown) Medications: (units unknown) (unknown) (unknown) (no date) (unknown) (unknown) Mental health proble m (units unknown) (unknown) (unknown) (no date) (unknown) (unknown) Mild degenerat katelyn changes of L4-5 and L5-S1. (units unknown) (unknown) (unknown) (no date) (unknown) (unknown) Mother Depression (u nits unknown) (unknown) (unknown) (no date) (unknown) (unknown) Motor (units unknown) (unknown) (unknown) (no date) (unknown) (unknown) Musculoskeletal: (un its unknown) (unknown) (unknown) (no date) (unknown) (unknown) Nearsightedness (uni ts unknown) (unknown) (unknown) (no date) (unknown) (unknown) Neuro: System reviewed and no additional complaints, except as documented. (units unknown) (unknown) (unknown) (no date) (unknown) (unknown) Neurologic: (units unknown) (unknown) (unknown) (no date) (unknown) (unknown) No evidence of acute bony abnormality of the left foot. (units unknown) (unknown) (unknown) (no date) (unknown) (unknown) Not indicated at this time. [] (units unknown) (unknown) (unknown) (no date) (unknown) (unknown) Numbness/Tingl ing: occasional tingling of the posterior left thigh (units unknown) (unknown) (unknown) (no date) (unknown) (unknown) Objective Data (unit s unknown) (unknown) (unknown) (no date) (unknown) (unknown) Objective Data: (uni ts unknown) (unknown) (unknown) (no date) (unknown) (unknown) Onset/Context of linh n: (units unknown) (unknown) (unknown) (no date) (unknown) (unknown) Onset: chronic , worsened after EBP (units unknown) (unknown) (unknown) (no date) (unknown) (unknown) Other: denies (units unknown) (unknown) (unknown) (no date) (unknown) (unknown) PFSH (units unknown) (unknown) (unknown) (no date) (unknown) (unknown) PT: PT schedul ed out for March 2023 at [facility] (units unknown) (unknown) (unknown) (no date) (unknown) (unknown) PTSD (post-tra umatic stress disorder) (-1999) (units unknown) (unknown) (unknown) (no date) (unknown) (unknown) Pain Visit (units unknown) (unknown) (unknown) (no date) (unknown) (unknown) Pain location/Radiation: Across the low back, denies radiation (units unknown) (unknown) (unknown) (no date) (unknown) (unknown) Pain ratin /10 today, 10 at worst (units unknown) (unknown) (unknown) (no date) (unknown) (unknown) Painful menstr ual periods (-2019) (units unknown) (unknown) (unknown) (no date) (unknown) (unknown) Past medical, surgical, social, and family history is unchanged from prior (units unknown) (unknown) (unknown) (no date) (unknown) (unknown) Patient was neal mohan seen here on 02/07/2023.? Since this time she has been seen in (units unknown) (unknown) (unknown) (no date) (unknown) (unknown) Patient will r eturn for []. Risks and benefits were discussed. (units unknown) (unknown) (unknown) (no date) (unknown) (unknown) Patient's pain has been present for >6 weeks and is an average of >6/10 on 0-10 (units unknown) (unknown) (unknown) (no date) (unknown) (unknown) Patient: Hardy Cruz MR# (units unknown) (unknown) (unknown) (no date) (unknown) (unknown) Plan (units unknown) (unknown) (unknown) (no date) (unknown) (unknown) Plan/Recommendations : (units unknown) (unknown) (unknown) (no date) (unknown) (unknown) Polyhydramnios (unit s unknown) (unknown) (unknown) (no date) (unknown) (unknown) depressio n (units unknown) (unknown) (unknown) (no date) (unknown) (unknown) Prescriptions Written: [] (units unknown) (unknown) (unknown) (no date) (unknown) (unknown) Previous Visit Assessment: Feliciano is a 32-year-old female presenting for further (units unknown) (unknown) (unknown) (no date) (unknown) (unknown) Previous [facility] section (units unknown) (unknown) (unknown) (no date) (unknown) (unknown) Previous pain treatments included: (units unknown) (unknown) (unknown) (no date) (unknown) (unknown) Psych: Appropr iate affect, answers questions appropriately (units unknown) (unknown) (unknown) (no date) (unknown) (unknown) Quality and ti carly of pain: constant, deep, dull (units unknown) (unknown) (unknown) (no date) (unknown) (unknown) ROS Narrative (units unknown) (unknown) (unknown) (no date) (unknown) (unknown) ROS Narrative: (unit s unknown) (unknown) (unknown) (no date) (unknown) (unknown) ROS (units unknown) (unknown) (unknown) (no date) (unknown) (unknown) Reason For Visit (un its unknown) (unknown) (unknown) (no date) (unknown) (unknown) Red flag symptoms: ( units unknown) (unknown) (unknown) (no date) (unknown) (unknown) Reflex Right Left (u nits unknown) (unknown) (unknown) (no date) (unknown) (unknown) Reflexes: (units unknown) (unknown) (unknown) (no date) (unknown) (unknown) Relieving fact ors include: lying down (units unknown) (unknown) (unknown) (no date) (unknown) (unknown) Respiratory: Non-labored breathing pattern on RA. No respiratory distress (units unknown) (unknown) (unknown) (no date) (unknown) (unknown) Restless leg syndrom e (units unknown) (unknown) (unknown) (no date) (unknown) (unknown) S1 Ankle Plantarflexion 5/5 5/5 (units unknown) (unknown) (unknown) (no date) (unknown) (unknown) S1-2 Achilles 2+ 2 ( units unknown) (unknown) (unknown) (no date) (unknown) (unknown) Saddle anesthe carlos: denies (units unknown) (unknown) (unknown) (no date) (unknown) (unknown) Safety (units unknown) (unknown) (unknown) (no date) (unknown) (unknown) Segment Action Right Left (units unknown) (unknown) (unknown) (no date) (unknown) (unknown) Segment Reflex Right Left (units unknown) (unknown) (unknown) (no date) (unknown) (unknown) Sensory -? Int act to light touch of bilateral lower extremities. Allodynia (units unknown) (unknown) (unknown) (no date) (unknown) (unknown) Signed By: (units unknown) (unknown) (unknown) (no date) (unknown) (unknown) Skin: No appre ciable rashes or skin breakdown (units unknown) (unknown) (unknown) (no date) (unknown) (unknown) Smoking Status : Former smoker (units unknown) (unknown) (unknown) (no date) (unknown) (unknown) Social History (unit s unknown) (unknown) (unknown) (no date) (unknown) (unknown) Son Hearing loss (un its unknown) (unknown) (unknown) (no date) (unknown) (unknown) Standing: limi hanny due to pain (units unknown) (unknown) (unknown) (no date) (unknown) (unknown) Surgery: denies (uni ts unknown) (unknown) (unknown) (no date) (unknown) (unknown) Surgical Histo ry (Updated 07/12/22 @ 15:10 by Josefina Baumann MD) (units unknown) (unknown) (unknown) (no date) (unknown) (unknown) [facility] (units unknown) (unknown) (unknown) (no date) (unknown) (unknown) This note may have been all or partially generated using voice recognition (units unknown) (unknown) (unknown) (no date) (unknown) (unknown) Tobacco + Subs tance Use (units unknown) (unknown) (unknown) (no date) (unknown) (unknown) Tobacco Status (unit s unknown) (unknown) (unknown) (no date) (unknown) (unknown) Today I have r eviewed available medical information in the patient's medical (units unknown) (unknown) (unknown) (no date) (unknown) (unknown) Type(s) of exe rcise: walking (units unknown) (unknown) (unknown) (no date) (unknown) (unknown) Upper Motor Ne uron Signs: (units unknown) (unknown) (unknown) (no date) (unknown) (unknown) Visit Reasons: follow up (was in the ER) (units unknown) (unknown) (unknown) (no date) (unknown) (unknown) [facility] (units unknown) (unknown) (unknown) (no date) (unknown) (unknown) Walking: walks slower due to pain (units unknown) (unknown) (unknown) (no date) (unknown) (unknown) [place] Prescription Monitoring Program (COMMERCIAL REAL ESTATE AGENT) was reviewed. (units unknown) (unknown) (unknown) (no date) (unknown) (unknown) We reviewed et iology, predisposing factor(s), natural course, imaging results as (units unknown) (unknown) (unknown) (no date) (unknown) (unknown) Weakness: denies (un its unknown) (unknown) (unknown) (no date) (unknown) (unknown) Roy teeth extract ed (units unknown) (unknown) (unknown) (no date) (unknown) (unknown) X-ray left verena t 02/25/2023: (units unknown) (unknown) (unknown) (no date) (unknown) (unknown) X-ray lumbar s pine 02/25/2023: (units unknown) (unknown) (unknown) (no date) (unknown) (unknown) a long-term me dication and other NSAIDs should be avoided while on meloxicam.' (units unknown) (unknown) (unknown) (no date) (unknown) (unknown) additional soc ial history: Difficulty other children. Would (units unknown) (unknown) (unknown) (no date) (unknown) (unknown) alcohol intake: form er (units unknown) (unknown) (unknown) (no date) (unknown) (unknown) and Kenalog.? Her 2nd visit was on 03/05/2023 for acute on chronic low back (units unknown) (unknown) (unknown) (no date) (unknown) (unknown) and we discuss ed taking this for up to several months.? This is not meant to be (units unknown) (unknown) (unknown) (no date) (unknown) (unknown) arthropathy an d myofascial pain.? I do not feel there is a radicular component (units unknown) (unknown) (unknown) (no date) (unknown) (unknown) back pain and a history of herniated disc in the lumbar spine.? She reports (units unknown) (unknown) (unknown) (no date) (unknown) (unknown) benefits of va rious treatment options were discussed with the patient in great (units unknown) (unknown) (unknown) (no date) (unknown) (unknown) bowel/bladder dysfunction, and perineal numbness were discussed. The patient was (units unknown) (unknown) (unknown) (no date) (unknown) (unknown) bulge at L5-S1 without central canal or neuroforaminal stenosis.? There is also (units unknown) (unknown) (unknown) (no date) (unknown) (unknown) caffeine: Yes (soft drinks in small quantities, well within 200mg limit) (units unknown) (unknown) (unknown) (no date) (unknown) (unknown) cannot tolerat e physical therapy at the current time due to the intensity of the (units unknown) (unknown) (unknown) (no date) (unknown) (unknown) carbon monox d etector in home: Yes (units unknown) (unknown) (unknown) (no date) (unknown) (unknown) changes.? Last ly, there is evidence of multilevel facet hypertrophy.? Lumbar x (units unknown) (unknown) (unknown) (no date) (unknown) (unknown) current occupa tional exposures/hazards: Yes (units unknown) (unknown) (unknown) (no date) (unknown) (unknown) daily servings fruits/ve or more times/day (units unknown) (unknown) (unknown) (no date) (unknown) (unknown) delivery. (units unknown) (unknown) (unknown) (no date) (unknown) (unknown) detail. (units unknown) (unknown) (unknown) (no date) (unknown) (unknown) do you feel sa fe at home: Yes (units unknown) (unknown) (unknown) (no date) (unknown) (unknown) during the pas t year weight has: other (wide fluctuations since last ) (units unknown) (unknown) (unknown) (no date) (unknown) (unknown) education matt l: vocational (some college, certificate programs) (units unknown) (unknown) (unknown) (no date) (unknown) (unknown) evaluation of acute on chronic low back pain.? She reports long history of low (units unknown) (unknown) (unknown) (no date) (unknown) (unknown) evidence of degenerative disc disease at L4-5 and L5-S1 as well as Modic (units unknown) (unknown) (unknown) (no date) (unknown) (unknown) fire extinguis her in home: Yes (units unknown) (unknown) (unknown) (no date) (unknown) (unknown) firearms in ho me: Yes firearms unloaded and locked: Yes (units unknown) (unknown) (unknown) (no date) (unknown) (unknown) flaxseed Aller gy (Severe, Verified 02/07/23 08:41) (units unknown) (unknown) (unknown) (no date) (unknown) (unknown) fracture.? She had an injection of the 5th tarsal metatarsal area with Marcaine (units unknown) (unknown) (unknown) (no date) (unknown) (unknown) grade breast p ump that she can have when she goes home from hospital after (units unknown) (unknown) (unknown) (no date) (unknown) (unknown) have occurred. If there are any questions, please contact the Medical Records (units unknown) (unknown) (unknown) (no date) (unknown) (unknown) household memb ers: spouse, family ([id number]-sk-lyb and his 3 children (moving out (units unknown) (unknown) (unknown) (no date) (unknown) (unknown) housing: house (unit s unknown) (unknown) (unknown) (no date) (unknown) (unknown) improved sleep , improved mobility, etc. (units unknown) (unknown) (unknown) (no date) (unknown) (unknown) in PT. [] (units unknown) (unknown) (unknown) (no date) (unknown) (unknown) instructed to report to the Emergency department, if these symptoms occur. (units unknown) (unknown) (unknown) (no date) (unknown) (unknown) instructed to stop if any side effects. [] (units unknown) (unknown) (unknown) (no date) (unknown) (unknown) intravenous dr ug use, sustained glucocorticoid use, osteoporosis, or a focal (units unknown) (unknown) (unknown) (no date) (unknown) (unknown) is likely multifactorial including components of vertebrogenic, facet (units unknown) (unknown) (unknown) (no date) (unknown) (unknown) lives independ ently: Yes (units unknown) (unknown) (unknown) (no date) (unknown) (unknown) local anesthet ic. During that time patient able to participate in ADLs, had (units unknown) (unknown) (unknown) (no date) (unknown) (unknown) marital status : (units unknown) (unknown) (unknown) (no date) (unknown) (unknown) may occur. Occ asional wrong-word or 'sound-alike' substitutions may have (units unknown) (unknown) (unknown) (no date) (unknown) (unknown) meds. [] (units unknown) (unknown) (unknown) (no date) (unknown) (unknown) needed - given by recent ED visit (units unknown) (unknown) (unknown) (no date) (unknown) (unknown) negative, Hype ralgesia - negative (units unknown) (unknown) (unknown) (no date) (unknown) (unknown) neurological d eficit with progressive or disabling symptoms. (units unknown) (unknown) (unknown) (no date) (unknown) (unknown) number of children: 3 (units unknown) (unknown) (unknown) (no date) (unknown) (unknown) occupational s tatus: unemployed and previously employed (units unknown) (unknown) (unknown) (no date) (unknown) (unknown) occurred due t o the inherent limitations of voice recognition software. Please (units unknown) (unknown) (unknown) (no date) (unknown) (unknown) of Spinal Cord Injur y) (units unknown) (unknown) (unknown) (no date) (unknown) (unknown) or immunosuppr essive therapy, previous or current cancer diagnosis, history of (units unknown) (unknown) (unknown) (no date) (unknown) (unknown) pain. [] (units unknown) (unknown) (unknown) (no date) (unknown) (unknown) pain.? She rec eived Decadron and Toradol in the emergency department. (units unknown) (unknown) (unknown) (no date) (unknown) (unknown) pets and anima ls: Yes (horses) (units unknown) (unknown) (unknown) (no date) (unknown) (unknown) rays had not b een performed at the time of this evaluation.? Her low back pain (units unknown) (unknown) (unknown) (no date) (unknown) (unknown) read the note carefully and recognize, using context, where these substitutions (units unknown) (unknown) (unknown) (no date) (unknown) (unknown) really like to meet w/ [facility] prior to delivery and would like Rx for hospital (units unknown) (unknown) (unknown) (no date) (unknown) (unknown) record, includ ing relevant provider notes, laboratory work, and imaging. (units unknown) (unknown) (unknown) (no date) (unknown) (unknown) scale and/or p ain interferes with ADLs. (units unknown) (unknown) (unknown) (no date) (unknown) (unknown) seatbelt use: always (units unknown) (unknown) (unknown) (no date) (unknown) (unknown) second hand ex posure: No (units unknown) (unknown) (unknown) (no date) (unknown) (unknown) software. Alth ough every effort is made to edit content, bookbinder chief errors (units unknown) (unknown) (unknown) (no date) (unknown) (unknown) soon)) and children (units unknown) (unknown) (unknown) (no date) (unknown) (unknown) special roland needs: No (units unknown) (unknown) (unknown) (no date) (unknown) (unknown) starting physi alexey therapy and nonsteroidal medications.? Meloxicam was ordered (units unknown) (unknown) (unknown) (no date) (unknown) (unknown) substance use type: marijuana (in the past, not recently and not while ) (units unknown) (unknown) (unknown) (no date) (unknown) (unknown) the emergency department twice at [facility].? Her 1st visit (units unknown) (unknown) (unknown) (no date) (unknown) (unknown) therapeutic in jections and surgery. The risks, consequences, alternatives and (units unknown) (unknown) (unknown) (no date) (unknown) (unknown) therapy. ?A re ferral was provided for the patient. [] (units unknown) (unknown) (unknown) (no date) (unknown) (unknown) to her pain at this time.? Conservative management was encouraged including (units unknown) (unknown) (unknown) (no date) (unknown) (unknown) visit. (units unknown) (unknown) (unknown) (no date) (unknown) (unknown) was on 023 for left foot pain.? X-ray did not show any evidence of acute (units unknown) (unknown) (unknown) (no date) (unknown) (unknown) water heater t emp set < 120 deg: Yes (units unknown) (unknown) (unknown) (no date) (unknown) (unknown) well as treatm ent options including medications, physical therapy/exercise, (units unknown) (unknown) (unknown) (no date) (unknown) (unknown) well-balanced diet: daily or most days (units unknown) (unknown) (unknown) (no date) (unknown) (unknown) with future tr eatment planning. [] (units unknown) (unknown) (unknown) (no date) (unknown) (unknown) without eviden ce of ataxia. Lower quarter stability intact. (units unknown) (unknown) (unknown) (no date) (unknown) (unknown) working smoke detector in home: Yes (units unknown) (unknown) (unknown) (no date) (unknown) (unknown) worsening of h er pain status post epidural blood patch.? MRI showed slight disc (units unknown) (unknown) Result panel 18 (unknown) (no date) (unknown) (unknown) (no value) (units unknown) (unknown) (unknown) (no date) (unknown) (unknown) (0=absent, 1=s light response, 2=brisk/normal, 3=very brisk, 4=clonus) (units unknown) (unknown) (unknown) (no date) (unknown) (unknown) (segments are from the International Standards for Neurological Classification (units unknown) (unknown) (unknown) (no date) (unknown) (unknown) - Activity: Co ntinue activity as tolerated. [] (units unknown) (unknown) (unknown) (no date) (unknown) (unknown) - Chiropractor , acupuncture[] (units unknown) (unknown) (unknown) (no date) (unknown) (unknown) - Continues cl inician directed home exercise program including exercises learned (units unknown) (unknown) (unknown) (no date) (unknown) (unknown) - Education: C auda equina and associated symptoms, including motor weakness, (units unknown) (unknown) (unknown) (no date) (unknown) (unknown) - FADIR: Negat katelyn bilaterally (units unknown) (unknown) (unknown) (no date) (unknown) (unknown) - Follow-up: [] (uni ts unknown) (unknown) (unknown) (no date) (unknown) (unknown) - Hip ROM is: Within normal limits (units unknown) (unknown) (unknown) (no date) (unknown) (unknown) - I discussed risks, benefits and side effects. Additionally, patient was (units unknown) (unknown) (unknown) (no date) (unknown) (unknown) - Imaging: No new imaging indicated at this time. [] (units unknown) (unknown) (unknown) (no date) (unknown) (unknown) - Interventional/Surgica l procedures: None indicated at this time. [] (units unknown) (unknown) (unknown) (no date) (unknown) (unknown) - Lumbar facet loading: Positive bilaterally (units unknown) (unknown) (unknown) (no date) (unknown) (unknown) - Medications: No new prescription at this time. Patient will continue current (units unknown) (unknown) (unknown) (no date) (unknown) (unknown) - Medications: acetaminophen, NSAIDS, neuropathics, muscle relaxants [] (units unknown) (unknown) (unknown) (no date) (unknown) (unknown) - Physical The rapy: Completed 6 week course in the last 6 months OR Patient (units unknown) (unknown) (unknown) (no date) (unknown) (unknown) - Physical therapy/modalities/DME : Patient will likely benefit from physical (units unknown) (unknown) (unknown) (no date) (unknown) (unknown) - Prescription provided and uptitration instructions given if necessary. [] (units unknown) (unknown) (unknown) (no date) (unknown) (unknown) - Previous [] on [] provided []% relief of pain for the expected duration of the (units unknown) (unknown) (unknown) (no date) (unknown) (unknown) - Referrals: N one indicated at this time. [] (units unknown) (unknown) (unknown) (no date) (unknown) (unknown) - SIJ provocat ion testing: Negative bilaterally (units unknown) (unknown) (unknown) (no date) (unknown) (unknown) - Straight Leg Raise: Negative bilaterally (units unknown) (unknown) (unknown) (no date) (unknown) (unknown) 04/06/23 (units unknown) (unknown) (unknown) (no date) (unknown) (unknown) 04/06/23] (units unknown) (unknown) (unknown) (no date) (unknown) (unknown) 09:29 (units unknown) (unknown) (unknown) (no date) (unknown) (unknown) : [id number] (units unknown) (unknown) (unknown) (no date) (unknown) (unknown) ? Denies? (units unknown) (unknown) (unknown) (no date) (unknown) (unknown) ? Inspection - ? No gross appendicular or axial deformities (units unknown) (unknown) (unknown) (no date) (unknown) (unknown) ? Palpation -tenderness to palpation midline low back (units unknown) (unknown) (unknown) (no date) (unknown) (unknown) ? ROM -lumbar extension limited due to pain (units unknown) (unknown) (unknown) (no date) (unknown) (unknown) ? Special tests (uni ts unknown) (unknown) (unknown) (no date) (unknown) (unknown) ? Acetaminophen - doesn't help (units unknown) (unknown) (unknown) (no date) (unknown) (unknown) ? Antidepressants - celexa - no longer taking (units unknown) (unknown) (unknown) (no date) (unknown) (unknown) ? Antiepileptics - denies (units unknown) (unknown) (unknown) (no date) (unknown) (unknown) ? Mu scle Relaxants - denies (units unknown) (unknown) (unknown) (no date) (unknown) (unknown) ? NS AIDs - naproxen, ibuprofen (units unknown) (unknown) (unknown) (no date) (unknown) (unknown) ? Op ioids - Hydrocodone-acetaminop hen 5-325 mg 1 tab q.6 hours as (units unknown) (unknown) (unknown) (no date) (unknown) (unknown) ? St eroids - denies (units unknown) (unknown) (unknown) (no date) (unknown) (unknown) ? To picals - lidoderm (units unknown) (unknown) (unknown) (no date) (unknown) (unknown) ADHD (units unknown) (unknown) (unknown) (no date) (unknown) (unknown) Accompanied by : Self / Same As Patient (units unknown) (unknown) (unknown) (no date) (unknown) (unknown) Additional Soc ial History (units unknown) (unknown) (unknown) (no date) (unknown) (unknown) Age/Sex: 32 / F Date of Service: (units unknown) (unknown) (unknown) (no date) (unknown) (unknown) Aggravating fa ctors include: sitting, chores that require bending (units unknown) (unknown) (unknown) (no date) (unknown) (unknown) Alcoholism (units unknown) (unknown) (unknown) (no date) (unknown) (unknown) All other syst ems reviewed and are unremarkable except as noted in HPI. (units unknown) (unknown) (unknown) (no date) (unknown) (unknown) Allergies (units unknown) (unknown) (unknown) (no date) (unknown) (unknown) [place] [address] (units unknown) (unknown) (unknown) (no date) (unknown) (unknown) Anaphylaxis (units unknown) (unknown) (unknown) (no date) (unknown) (unknown) Anesthesia (units unknown) (unknown) (unknown) (no date) (unknown) (unknown) Assessment + Plan (u nits unknown) (unknown) (unknown) (no date) (unknown) (unknown) Assessment: (units unknown) (unknown) (unknown) (no date) (unknown) (unknown) Attending Dr: Celio Tejada MD (units unknown) (unknown) (unknown) (no date) (unknown) (unknown) BMI 45.9 (units unknown) (unknown) (unknown) (no date) (unknown) (unknown) BP 106/74 (units unknown) (unknown) (unknown) (no date) (unknown) (unknown) Saleem's Abby ngoing Downgoing (units unknown) (unknown) (unknown) (no date) (unknown) (unknown) Blood Pressure Location Rt radial (units unknown) (unknown) (unknown) (no date) (unknown) (unknown) Bowel and blad ayn: No loss of control (units unknown) (unknown) (unknown) (no date) (unknown) (unknown) Carpal tunnel syndrome (-2018) (units unknown) (unknown) (unknown) (no date) (unknown) (unknown) Chart review: (units unknown) (unknown) (unknown) (no date) (unknown) (unknown) Chief Complaint (uni ts unknown) (unknown) (unknown) (no date) (unknown) (unknown) Chief Complain t: Follow-up (units unknown) (unknown) (unknown) (no date) (unknown) (unknown) Clonus None None (un its unknown) (unknown) (unknown) (no date) (unknown) (unknown) Confirmed 04/06/23] (units unknown) (unknown) (unknown) (no date) (unknown) (unknown) Conservative management includes: (units unknown) (unknown) (unknown) (no date) (unknown) (unknown) Continue bobo contreras physical therapy. [] (units unknown) (unknown) (unknown) (no date) (unknown) (unknown) Continue home exercise program. 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 (units unknown) (unknown) (unknown) (no date) (unknown) (unknown) Details: (units unknown) (unknown) (unknown) (no date) (unknown) (unknown) Diet and Exercise (u nits unknown) (unknown) (unknown) (no date) (unknown) (unknown) Documented By: Celio Tejada MD 04/04/23 0855 (units unknown) (unknown) (unknown) (no date) (unknown) (unknown) Draft (units unknown) (unknown) (unknown) (no date) (unknown) (unknown) Exam Narrative (unit s unknown) (unknown) (unknown) (no date) (unknown) (unknown) Exam Narrative: (uni ts unknown) (unknown) (unknown) (no date) (unknown) (unknown) Exam (units unknown) (unknown) (unknown) (no date) (unknown) (unknown) FOLLOW UP BACK PAIN, PAIN SEEMS TO BE GETTING WORSE (units unknown) (unknown) (unknown) (no date) (unknown) (unknown) Family History (Updated 06/08/22 @ 21:23 by Aurora Arevalo) (units unknown) (unknown) (unknown) (no date) (unknown) (unknown) Father Diabete s mellitus (units unknown) (unknown) (unknown) (no date) (unknown) (unknown) Foot pain () (u nits unknown) (unknown) (unknown) (no date) (unknown) (unknown) Gait/Station - Non-antalgic gait. Heel/toe walking intact. Tandem gait normal (units unknown) (unknown) (unknown) (no date) (unknown) (unknown) General: Well-nourished, well-developed, female in no acute distress (units unknown) (unknown) (unknown) (no date) (unknown) (unknown) HPI (units unknown) (unknown) (unknown) (no date) (unknown) (unknown) Heavy menstrua l period () (units unknown) (unknown) (unknown) (no date) (unknown) (unknown) Height 5 ft 5 in (un its unknown) (unknown) (unknown) (no date) (unknown) (unknown) History of polyhydramnios (units unknown) (unknown) (unknown) (no date) (unknown) (unknown) History of surgery ( units unknown) (unknown) (unknown) (no date) (unknown) (unknown) Hot Flashes (units unknown) (unknown) (unknown) (no date) (unknown) (unknown) Intake Clinical Staf f (units unknown) (unknown) (unknown) (no date) (unknown) (unknown) Intake Note: (units unknown) (unknown) (unknown) (no date) (unknown) (unknown) Intake perform ed by: Shell Portillo (units unknown) (unknown) (unknown) (no date) (unknown) (unknown) Intake (units unknown) (unknown) (unknown) (no date) (unknown) (unknown) Interval History: (u nits unknown) (unknown) (unknown) (no date) (unknown) (unknown) Intervention:?Date:?Outcome:?? ? (units unknown) (unknown) (unknown) (no date) (unknown) (unknown) Is patient in pain?: Yes (units unknown) (unknown) (unknown) (no date) (unknown) (unknown) JUSTIFICATION OF MEDICAL NECESSITY (units unknown) (unknown) (unknown) (no date) (unknown) (unknown) L-spine/T-spin e/C-spin e MRI ordered to better delineate the anatomy and help (units unknown) (unknown) (unknown) (no date) (unknown) (unknown) L2 Hip Flexion 5/5 5/5? (units unknown) (unknown) (unknown) (no date) (unknown) (unknown) L3 Knee Extens ion 5/5 5/5 (units unknown) (unknown) (unknown) (no date) (unknown) (unknown) L3-4 Patella 2+ 2 (u nits unknown) (unknown) (unknown) (no date) (unknown) (unknown) L4 Ankle Dorsi flexion 5/5 5/5 (units unknown) (unknown) (unknown) (no date) (unknown) (unknown) L5 Long Toe Ex tension 5/5 5/5 (units unknown) (unknown) (unknown) (no date) (unknown) (unknown) LS XR 02/25/23 (unit s unknown) (unknown) (unknown) (no date) (unknown) (unknown) Lidocaine patch 5% P RN (units unknown) (unknown) (unknown) (no date) (unknown) (unknown) Loc: PAIN (units unknown) (unknown) (unknown) (no date) (unknown) (unknown) Low back pain (units unknown) (unknown) (unknown) (no date) (unknown) (unknown) MSK: System re viewed and no additional complaints, except as documented. (units unknown) (unknown) (unknown) (no date) (unknown) (unknown) Medical Histor y (Updated 02/07/23 @ 10:11 by Celio Tejada MD) (units unknown) (unknown) (unknown) (no date) (unknown) (unknown) Medications (units unknown) (unknown) (unknown) (no date) (unknown) (unknown) Medications: (units unknown) (unknown) (unknown) (no date) (unknown) (unknown) Mental health proble m (units unknown) (unknown) (unknown) (no date) (unknown) (unknown) Mild degenerat katelyn changes of L4-5 and L5-S1. (units unknown) (unknown) (unknown) (no date) (unknown) (unknown) Mother Depression (u nits unknown) (unknown) (unknown) (no date) (unknown) (unknown) Motor (units unknown) (unknown) (unknown) (no date) (unknown) (unknown) Musculoskeletal: (un its unknown) (unknown) (unknown) (no date) (unknown) (unknown) Nearsightedness (uni ts unknown) (unknown) (unknown) (no date) (unknown) (unknown) Neuro: System reviewed and no additional complaints, except as documented. (units unknown) (unknown) (unknown) (no date) (unknown) (unknown) Neurologic: (units unknown) (unknown) (unknown) (no date) (unknown) (unknown) No evidence of acute bony abnormality of the left foot. (units unknown) (unknown) (unknown) (no date) (unknown) (unknown) Not indicated at this time. [] (units unknown) (unknown) (unknown) (no date) (unknown) (unknown) Numbness/Tingl ing: occasional tingling of the posterior left thigh (units unknown) (unknown) (unknown) (no date) (unknown) (unknown) Objective Data (unit s unknown) (unknown) (unknown) (no date) (unknown) (unknown) Objective Data: (uni ts unknown) (unknown) (unknown) (no date) (unknown) (unknown) Onset/Context of linh n: (units unknown) (unknown) (unknown) (no date) (unknown) (unknown) Onset: chronic , worsened after EBP (units unknown) (unknown) (unknown) (no date) (unknown) (unknown) Other: denies (units unknown) (unknown) (unknown) (no date) (unknown) (unknown) Oxygen Deliver y Method room air (units unknown) (unknown) (unknown) (no date) (unknown) (unknown) PFSH (units unknown) (unknown) (unknown) (no date) (unknown) (unknown) PT: PT schedul ed out for March 2023 at [facility] (units unknown) (unknown) (unknown) (no date) (unknown) (unknown) PTSD (post-tra umatic stress disorder) (-1999) (units unknown) (unknown) (unknown) (no date) (unknown) (unknown) Pain Scale (units unknown) (unknown) (unknown) (no date) (unknown) (unknown) Pain Visit (units unknown) (unknown) (unknown) (no date) (unknown) (unknown) Pain location/Radiation: Across the low back, denies radiation (units unknown) (unknown) (unknown) (no date) (unknown) (unknown) Pain ratin /10 today, 9/10 at worst (units unknown) (unknown) (unknown) (no date) (unknown) (unknown) Painful menstr ual periods (-2019) (units unknown) (unknown) (unknown) (no date) (unknown) (unknown) Past medical, surgical, social, and family history is unchanged from prior (units unknown) (unknown) (unknown) (no date) (unknown) (unknown) Patient was neal mohan seen here on 02/07/2023.? Since this time she has been seen in (units unknown) (unknown) (unknown) (no date) (unknown) (unknown) Patient will r eturn for []. Risks and benefits were discussed. (units unknown) (unknown) (unknown) (no date) (unknown) (unknown) Patient's pain has been present for >6 weeks and is an average of >6/10 on 0-10 (units unknown) (unknown) (unknown) (no date) (unknown) (unknown) Patient: Hardy Cruz MR# (units unknown) (unknown) (unknown) (no date) (unknown) (unknown) Plan (units unknown) (unknown) (unknown) (no date) (unknown) (unknown) Plan/Recommendations : (units unknown) (unknown) (unknown) (no date) (unknown) (unknown) Polyhydramnios (unit s unknown) (unknown) (unknown) (no date) (unknown) (unknown) Position Sitting (un its unknown) (unknown) (unknown) (no date) (unknown) (unknown) depressio n (units unknown) (unknown) (unknown) (no date) (unknown) (unknown) Prescriptions Written: [] (units unknown) (unknown) (unknown) (no date) (unknown) (unknown) Previous Visit Assessment: Feliciano is a 32-year-old female presenting for further (units unknown) (unknown) (unknown) (no date) (unknown) (unknown) Previous gladys joseph section (units unknown) (unknown) (unknown) (no date) (unknown) (unknown) Previous pain treatments included: (units unknown) (unknown) (unknown) (no date) (unknown) (unknown) Psych: Appropr iate affect, answers questions appropriately (units unknown) (unknown) (unknown) (no date) (unknown) (unknown) Pulse 83 (units unknown) (unknown) (unknown) (no date) (unknown) (unknown) Pulse Oximetry (%) 9 9 (units unknown) (unknown) (unknown) (no date) (unknown) (unknown) Pulse Source Monitor (units unknown) (unknown) (unknown) (no date) (unknown) (unknown) Quality and ti carly of pain: constant, deep, dull (units unknown) (unknown) (unknown) (no date) (unknown) (unknown) ROS Narrative (units unknown) (unknown) (unknown) (no date) (unknown) (unknown) ROS Narrative: (unit s unknown) (unknown) (unknown) (no date) (unknown) (unknown) ROS (units unknown) (unknown) (unknown) (no date) (unknown) (unknown) Reason For Visit (un its unknown) (unknown) (unknown) (no date) (unknown) (unknown) Red flag symptoms: ( units unknown) (unknown) (unknown) (no date) (unknown) (unknown) Reflex Right Left (u nits unknown) (unknown) (unknown) (no date) (unknown) (unknown) Reflexes: (units unknown) (unknown) (unknown) (no date) (unknown) (unknown) Relieving fact ors include: lying down (units unknown) (unknown) (unknown) (no date) (unknown) (unknown) Respiratory: Non-labored breathing pattern on RA. No respiratory distress (units unknown) (unknown) (unknown) (no date) (unknown) (unknown) Restless leg syndrom e (units unknown) (unknown) (unknown) (no date) (unknown) (unknown) S1 Ankle Plantarflexion 5/5 5/5 (units unknown) (unknown) (unknown) (no date) (unknown) (unknown) S1-2 Achilles 2+ 2 ( units unknown) (unknown) (unknown) (no date) (unknown) (unknown) Saddle anesthe carlos: denies (units unknown) (unknown) (unknown) (no date) (unknown) (unknown) Safety (units unknown) (unknown) (unknown) (no date) (unknown) (unknown) Segment Action Right Left (units unknown) (unknown) (unknown) (no date) (unknown) (unknown) Segment Reflex Right Left (units unknown) (unknown) (unknown) (no date) (unknown) (unknown) Sensory -? Int act to light touch of bilateral lower extremities. Allodynia (units unknown) (unknown) (unknown) (no date) (unknown) (unknown) Signed By: (units unknown) (unknown) (unknown) (no date) (unknown) (unknown) Skin: No appre ciable rashes or skin breakdown (units unknown) (unknown) (unknown) (no date) (unknown) (unknown) Smoking Status : Former smoker (units unknown) (unknown) (unknown) (no date) (unknown) (unknown) Social History (unit s unknown) (unknown) (unknown) (no date) (unknown) (unknown) Son Hearing loss (un its unknown) (unknown) (unknown) (no date) (unknown) (unknown) Standing: limi hanny due to pain (units unknown) (unknown) (unknown) (no date) (unknown) (unknown) Surgery: denies (uni ts unknown) (unknown) (unknown) (no date) (unknown) (unknown) Surgical Histo ry (Updated 07/12/22 @ 15:10 by Josefina Baumann MD) (units unknown) (unknown) (unknown) (no date) (unknown) (unknown) Temp 98.4 F (units unknown) (unknown) (unknown) (no date) (unknown) (unknown) Temp Source Te mporal Artery Scan (units unknown) (unknown) (unknown) (no date) (unknown) (unknown) [facility] (units unknown) (unknown) (unknown) (no date) (unknown) (unknown) This note may have been all or partially generated using voice recognition (units unknown) (unknown) (unknown) (no date) (unknown) (unknown) Tobacco + Subs tance Use (units unknown) (unknown) (unknown) (no date) (unknown) (unknown) Tobacco Status (unit s unknown) (unknown) (unknown) (no date) (unknown) (unknown) Today I have r eviewed available medical information in the patient's medical (units unknown) (unknown) (unknown) (no date) (unknown) (unknown) Type(s) of exe rcise: walking (units unknown) (unknown) (unknown) (no date) (unknown) (unknown) Upper Motor Ne uron Signs: (units unknown) (unknown) (unknown) (no date) (unknown) (unknown) Visit Reasons: follow up (was in the ER) (units unknown) (unknown) (unknown) (no date) (unknown) (unknown) Vitals (units unknown) (unknown) (unknown) (no date) (unknown) (unknown) [facility] x[facility] (units unknown) (unknown) (unknown) (no date) (unknown) (unknown) Walking: walks slower due to pain (units unknown) (unknown) (unknown) (no date) (unknown) (unknown) [place] Prescription Monitoring Program (COMMERCIAL REAL ESTATE AGENT) was reviewed. (units unknown) (unknown) (unknown) (no date) (unknown) (unknown) We reviewed et iology, predisposing factor(s), natural course, imaging results as (units unknown) (unknown) (unknown) (no date) (unknown) (unknown) Weakness: denies (un its unknown) (unknown) (unknown) (no date) (unknown) (unknown) Weight 276 lb (units unknown) (unknown) (unknown) (no date) (unknown) (unknown) Roy teeth extract ed (units unknown) (unknown) (unknown) (no date) (unknown) (unknown) X-ray left verena t 02/25/2023: (units unknown) (unknown) (unknown) (no date) (unknown) (unknown) X-ray lumbar s pine 02/25/2023: (units unknown) (unknown) (unknown) (no date) (unknown) (unknown) a long-term me dication and other NSAIDs should be avoided while on meloxicam.' (units unknown) (unknown) (unknown) (no date) (unknown) (unknown) additional soc ial history: Difficulty other children. Would (units unknown) (unknown) (unknown) (no date) (unknown) (unknown) alcohol intake: form er (units unknown) (unknown) (unknown) (no date) (unknown) (unknown) and Kenalog.? Her 2nd visit was on 03/05/2023 for acute on chronic low back (units unknown) (unknown) (unknown) (no date) (unknown) (unknown) and we discuss ed taking this for up to several months.? This is not meant to be (units unknown) (unknown) (unknown) (no date) (unknown) (unknown) arthropathy an d myofascial pain.? I do not feel there is a radicular component (units unknown) (unknown) (unknown) (no date) (unknown) (unknown) back pain and a history of herniated disc in the lumbar spine.? She reports (units unknown) (unknown) (unknown) (no date) (unknown) (unknown) benefits of va rious treatment options were discussed with the patient in great (units unknown) (unknown) (unknown) (no date) (unknown) (unknown) bowel/bladder dysfunction, and perineal numbness were discussed. The patient was (units unknown) (unknown) (unknown) (no date) (unknown) (unknown) bulge at L5-S1 without central canal or neuroforaminal stenosis.? There is also (units unknown) (unknown) (unknown) (no date) (unknown) (unknown) caffeine: Yes (soft drinks in small quantities, well within 200mg limit) (units unknown) (unknown) (unknown) (no date) (unknown) (unknown) cannot tolerat e physical therapy at the current time due to the intensity of the (units unknown) (unknown) (unknown) (no date) (unknown) (unknown) carbon monox d etector in home: Yes (units unknown) (unknown) (unknown) (no date) (unknown) (unknown) changes.? Last ly, there is evidence of multilevel facet hypertrophy.? Lumbar x (units unknown) (unknown) (unknown) (no date) (unknown) (unknown) current occupa tional exposures/hazards: Yes (units unknown) (unknown) (unknown) (no date) (unknown) (unknown) daily servings fruits/ve or more times/day (units unknown) (unknown) (unknown) (no date) (unknown) (unknown) delivery. (units unknown) (unknown) (unknown) (no date) (unknown) (unknown) detail. (units unknown) (unknown) (unknown) (no date) (unknown) (unknown) do you feel sa fe at home: Yes (units unknown) (unknown) (unknown) (no date) (unknown) (unknown) double electri c breast pump 1 ea topical .prn #1 ea 11/01/22 [Rx Confirmed (units unknown) (unknown) (unknown) (no date) (unknown) (unknown) during the pas t year weight has: other (wide fluctuations since last ) (units unknown) (unknown) (unknown) (no date) (unknown) (unknown) education leve l: vocational (some college, certificate programs) (units unknown) (unknown) (unknown) (no date) (unknown) (unknown) evaluation of acute on chronic low back pain.? She reports long history of low (units unknown) (unknown) (unknown) (no date) (unknown) (unknown) evidence of degenerative disc disease at L4-5 and L5-S1 as well as Modic (units unknown) (unknown) (unknown) (no date) (unknown) (unknown) fire extinguis her in home: Yes (units unknown) (unknown) (unknown) (no date) (unknown) (unknown) firearms in ho me: Yes firearms unloaded and locked: Yes (units unknown) (unknown) (unknown) (no date) (unknown) (unknown) flaxseed Aller gy (Severe, Verified 04/06/23 09:30) (units unknown) (unknown) (unknown) (no date) (unknown) (unknown) fracture.? She had an injection of the 5th tarsal metatarsal area with Marcaine (units unknown) (unknown) (unknown) (no date) (unknown) (unknown) grade breast p ump that she can have when she goes home from hospital after (units unknown) (unknown) (unknown) (no date) (unknown) (unknown) have occurred. If there are any questions, please contact the Medical Records (units unknown) (unknown) (unknown) (no date) (unknown) (unknown) household memb ers: spouse, family ([id number] and his 3 children (moving out (units unknown) (unknown) (unknown) (no date) (unknown) (unknown) housing: house (unit s unknown) (unknown) (unknown) (no date) (unknown) (unknown) ibuprofen 800 mg tablet 800 mg PO Q8H 04/06/23 [History Confirmed 04/06/23] (units unknown) (unknown) (unknown) (no date) (unknown) (unknown) improved sleep , improved mobility, etc. (units unknown) (unknown) (unknown) (no date) (unknown) (unknown) in PT. [] (units unknown) (unknown) (unknown) (no date) (unknown) (unknown) instructed to report to the Emergency department, if these symptoms occur. (units unknown) (unknown) (unknown) (no date) (unknown) (unknown) instructed to stop if any side effects. [] (units unknown) (unknown) (unknown) (no date) (unknown) (unknown) intravenous dr ug use, sustained glucocorticoid use, osteoporosis, or a focal (units unknown) (unknown) (unknown) (no date) (unknown) (unknown) is likely multifactorial including components of vertebrogenic, facet (units unknown) (unknown) (unknown) (no date) (unknown) (unknown) levothyroxine 137 mcg tablet 137 mcg PO DAILY #30 tabs 10/17/22 [Rx Confirmed (units unknown) (unknown) (unknown) (no date) (unknown) (unknown) lidocaine 5 % topical patch 1 patch transdermal DAILY PRN 04/06/23 [History (units unknown) (unknown) (unknown) (no date) (unknown) (unknown) lives independ ently: Yes (units unknown) (unknown) (unknown) (no date) (unknown) (unknown) local anesthet ic. During that time patient able to participate in ADLs, had (units unknown) (unknown) (unknown) (no date) (unknown) (unknown) marital status : (units unknown) (unknown) (unknown) (no date) (unknown) (unknown) may occur. Occ asional wrong-word or 'sound-alike' substitutions may have (units unknown) (unknown) (unknown) (no date) (unknown) (unknown) meds. [] (units unknown) (unknown) (unknown) (no date) (unknown) (unknown) meloxicam 7.5 mg tablet 7.5 mg PO DAILY #30 tabs 02/07/23 [Rx Confirmed (units unknown) (unknown) (unknown) (no date) (unknown) (unknown) needed - given by recent ED visit (units unknown) (unknown) (unknown) (no date) (unknown) (unknown) negative, Hype ralgesia - negative (units unknown) (unknown) (unknown) (no date) (unknown) (unknown) neurological d eficit with progressive or disabling symptoms. (units unknown) (unknown) (unknown) (no date) (unknown) (unknown) number of children: 3 (units unknown) (unknown) (unknown) (no date) (unknown) (unknown) occupational s tatus: unemployed and previously employed (units unknown) (unknown) (unknown) (no date) (unknown) (unknown) occurred due t o the inherent limitations of voice recognition software. Please (units unknown) (unknown) (unknown) (no date) (unknown) (unknown) of Spinal Cord Injur y) (units unknown) (unknown) (unknown) (no date) (unknown) (unknown) or immunosuppr essive therapy, previous or current cancer diagnosis, history of (units unknown) (unknown) (unknown) (no date) (unknown) (unknown) pain. [] (units unknown) (unknown) (unknown) (no date) (unknown) (unknown) pain.? She rec eived Decadron and Toradol in the emergency department. (units unknown) (unknown) (unknown) (no date) (unknown) (unknown) pets and anima ls: Yes (horses) (units unknown) (unknown) (unknown) (no date) (unknown) (unknown) prednisone Adv erse Reaction (Mild, Verified 04/06/23 09:30) (units unknown) (unknown) (unknown) (no date) (unknown) (unknown) prenat.vits,ca l,min-ir on-folic 1 tab PO DAILY 04/22/22 [History Confirmed (units unknown) (unknown) (unknown) (no date) (unknown) (unknown) rays had not b een performed at the time of this evaluation.? Her low back pain (units unknown) (unknown) (unknown) (no date) (unknown) (unknown) read the note carefully and recognize, using context, where these substitutions (units unknown) (unknown) (unknown) (no date) (unknown) (unknown) really like to meet w/ [facility] prior to delivery and would like Rx for hospital (units unknown) (unknown) (unknown) (no date) (unknown) (unknown) record, includ ing relevant provider notes, laboratory work, and imaging. (units unknown) (unknown) (unknown) (no date) (unknown) (unknown) scale and/or p ain interferes with ADLs. (units unknown) (unknown) (unknown) (no date) (unknown) (unknown) seatbelt use: always (units unknown) (unknown) (unknown) (no date) (unknown) (unknown) second hand ex posure: No (units unknown) (unknown) (unknown) (no date) (unknown) (unknown) software. Alth ough every effort is made to edit content, bookbinder chief errors (units unknown) (unknown) (unknown) (no date) (unknown) (unknown) soon)) and children (units unknown) (unknown) (unknown) (no date) (unknown) (unknown) special roland needs: No (units unknown) (unknown) (unknown) (no date) (unknown) (unknown) starting physi alexey therapy and nonsteroidal medications.? Meloxicam was ordered (units unknown) (unknown) (unknown) (no date) (unknown) (unknown) substance use type: marijuana (in the past, not recently and not while ) (units unknown) (unknown) (unknown) (no date) (unknown) (unknown) the emergency department twice at [facility].? Her 1st visit (units unknown) (unknown) (unknown) (no date) (unknown) (unknown) therapeutic in jections and surgery. The risks, consequences, alternatives and (units unknown) (unknown) (unknown) (no date) (unknown) (unknown) therapy. ?A re ferral was provided for the patient. [] (units unknown) (unknown) (unknown) (no date) (unknown) (unknown) to her pain at this time.? Conservative management was encouraged including (units unknown) (unknown) (unknown) (no date) (unknown) (unknown) visit. (units unknown) (unknown) (unknown) (no date) (unknown) (unknown) was on 023 for left foot pain.? X-ray did not show any evidence of acute (units unknown) (unknown) (unknown) (no date) (unknown) (unknown) water heater t emp set < 120 deg: Yes (units unknown) (unknown) (unknown) (no date) (unknown) (unknown) well as treatm ent options including medications, physical therapy/exercise, (units unknown) (unknown) (unknown) (no date) (unknown) (unknown) well-balanced diet: daily or most days (units unknown) (unknown) (unknown) (no date) (unknown) (unknown) with future tr eatment planning. [] (units unknown) (unknown) (unknown) (no date) (unknown) (unknown) without eviden ce of ataxia. Lower quarter stability intact. (units unknown) (unknown) (unknown) (no date) (unknown) (unknown) working smoke detector in home: Yes (units unknown) (unknown) (unknown) (no date) (unknown) (unknown) worsening of h er pain status post epidural blood patch.? MRI showed slight disc (units unknown) (unknown) Result panel 19 (unknown) (no date) (unknown) (unknown) (no value) (units unknown) (unknown) (unknown) (no date) (unknown) (unknown) (0=absent, 1=s light response, 2=brisk/normal, 3=very brisk, 4=clonus) (units unknown) (unknown) (unknown) (no date) (unknown) (unknown) (segments are from the International Standards for Neurological Classification (units unknown) (unknown) (unknown) (no date) (unknown) (unknown) - Activity: Co ntinue activity as tolerated. [] (units unknown) (unknown) (unknown) (no date) (unknown) (unknown) - Chiropractor , acupuncture[] (units unknown) (unknown) (unknown) (no date) (unknown) (unknown) - Continues cl inician directed home exercise program including exercises learned (units unknown) (unknown) (unknown) (no date) (unknown) (unknown) - Education: C auda equina and associated symptoms, including motor weakness, (units unknown) (unknown) (unknown) (no date) (unknown) (unknown) - FADIR: Negat katelyn bilaterally (units unknown) (unknown) (unknown) (no date) (unknown) (unknown) - Follow-up: [] (uni ts unknown) (unknown) (unknown) (no date) (unknown) (unknown) - Hip ROM is: Within normal limits (units unknown) (unknown) (unknown) (no date) (unknown) (unknown) - I discussed risks, benefits and side effects. Additionally, patient was (units unknown) (unknown) (unknown) (no date) (unknown) (unknown) - Imaging: No new imaging indicated at this time. [] (units unknown) (unknown) (unknown) (no date) (unknown) (unknown) - Interventional/Surgica l procedures: None indicated at this time. [] (units unknown) (unknown) (unknown) (no date) (unknown) (unknown) - Lumbar facet loading: Positive bilaterally (units unknown) (unknown) (unknown) (no date) (unknown) (unknown) - Medications: No new prescription at this time. Patient will continue current (units unknown) (unknown) (unknown) (no date) (unknown) (unknown) - Medications: acetaminophen, NSAIDS, neuropathics, muscle relaxants [] (units unknown) (unknown) (unknown) (no date) (unknown) (unknown) - Physical The rapy: Completed 6 week course in the last 6 months OR Patient (units unknown) (unknown) (unknown) (no date) (unknown) (unknown) - Physical therapy/modalities/DME : Patient will likely benefit from physical (units unknown) (unknown) (unknown) (no date) (unknown) (unknown) - Prescription provided and uptitration instructions given if necessary. [] (units unknown) (unknown) (unknown) (no date) (unknown) (unknown) - Previous [] on [] provided []% relief of pain for the expected duration of the (units unknown) (unknown) (unknown) (no date) (unknown) (unknown) - Referrals: N one indicated at this time. [] (units unknown) (unknown) (unknown) (no date) (unknown) (unknown) - SIJ provocat ion testing: Negative bilaterally (units unknown) (unknown) (unknown) (no date) (unknown) (unknown) - Straight Leg Raise: Negative bilaterally (units unknown) (unknown) (unknown) (no date) (unknown) (unknown) 04/06/23 (units unknown) (unknown) (unknown) (no date) (unknown) (unknown) 04/06/23] (units unknown) (unknown) (unknown) (no date) (unknown) (unknown) 09:29 (units unknown) (unknown) (unknown) (no date) (unknown) (unknown) : [id number] (units unknown) (unknown) (unknown) (no date) (unknown) (unknown) ? Denies? (units unknown) (unknown) (unknown) (no date) (unknown) (unknown) ? Inspection - ? No gross appendicular or axial deformities (units unknown) (unknown) (unknown) (no date) (unknown) (unknown) ? Palpation -tenderness to palpation midline low back (units unknown) (unknown) (unknown) (no date) (unknown) (unknown) ? ROM -lumbar extension limited due to pain (units unknown) (unknown) (unknown) (no date) (unknown) (unknown) ? Special tests (uni ts unknown) (unknown) (unknown) (no date) (unknown) (unknown) ? Acetaminophen - doesn't help (units unknown) (unknown) (unknown) (no date) (unknown) (unknown) ? Antidepressants - celexa - no longer taking (units unknown) (unknown) (unknown) (no date) (unknown) (unknown) ? Antiepileptics - denies (units unknown) (unknown) (unknown) (no date) (unknown) (unknown) ? Mu scle Relaxants - denies (units unknown) (unknown) (unknown) (no date) (unknown) (unknown) ? NS AIDs - naproxen, ibuprofen (units unknown) (unknown) (unknown) (no date) (unknown) (unknown) ? Op ioids - Hydrocodone-acetaminop hen 5-325 mg 1 tab q.6 hours as (units unknown) (unknown) (unknown) (no date) (unknown) (unknown) ? St eroids - denies (units unknown) (unknown) (unknown) (no date) (unknown) (unknown) ? To picals - lidoderm (units unknown) (unknown) (unknown) (no date) (unknown) (unknown) ADHD (units unknown) (unknown) (unknown) (no date) (unknown) (unknown) Accompanied by : Self / Same As Patient (units unknown) (unknown) (unknown) (no date) (unknown) (unknown) Additional Soc ial History (units unknown) (unknown) (unknown) (no date) (unknown) (unknown) Age/Sex: 32 / F Date of Service: (units unknown) (unknown) (unknown) (no date) (unknown) (unknown) Aggravating fa ctors include: sitting, chores that require bending (units unknown) (unknown) (unknown) (no date) (unknown) (unknown) Alcoholism (units unknown) (unknown) (unknown) (no date) (unknown) (unknown) All other syst ems reviewed and are unremarkable except as noted in HPI. (units unknown) (unknown) (unknown) (no date) (unknown) (unknown) Allergies (units unknown) (unknown) (unknown) (no date) (unknown) (unknown) [place] [address] (units unknown) (unknown) (unknown) (no date) (unknown) (unknown) Anaphylaxis (units unknown) (unknown) (unknown) (no date) (unknown) (unknown) Anesthesia (units unknown) (unknown) (unknown) (no date) (unknown) (unknown) Assessment + Plan (u nits unknown) (unknown) (unknown) (no date) (unknown) (unknown) Assessment: (units unknown) (unknown) (unknown) (no date) (unknown) (unknown) Attending Dr: Celio Tejada MD (units unknown) (unknown) (unknown) (no date) (unknown) (unknown) BMI 45.9 (units unknown) (unknown) (unknown) (no date) (unknown) (unknown) BP 106/74 (units unknown) (unknown) (unknown) (no date) (unknown) (unknown) [employer] ngoing Downgoing (units unknown) (unknown) (unknown) (no date) (unknown) (unknown) Blood Pressure Location Rt radial (units unknown) (unknown) (unknown) (no date) (unknown) (unknown) Bowel and blad yan: No loss of control (units unknown) (unknown) (unknown) (no date) (unknown) (unknown) Carpal tunnel syndrome (-2017) (units unknown) (unknown) (unknown) (no date) (unknown) (unknown) Chart review: (units unknown) (unknown) (unknown) (no date) (unknown) (unknown) Chief Complaint (uni ts unknown) (unknown) (unknown) (no date) (unknown) (unknown) Chief Complain t: Follow-up (units unknown) (unknown) (unknown) (no date) (unknown) (unknown) Clonus None None (un its unknown) (unknown) (unknown) (no date) (unknown) (unknown) Confirmed 04/06/23] (units unknown) (unknown) (unknown) (no date) (unknown) (unknown) Conservative management includes: (units unknown) (unknown) (unknown) (no date) (unknown) (unknown) Continue curre nt physical therapy. [] (units unknown) (unknown) (unknown) (no date) (unknown) (unknown) Continue home exercise program. 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 (units unknown) (unknown) (unknown) (no date) (unknown) (unknown) Details: (units unknown) (unknown) (unknown) (no date) (unknown) (unknown) Diet and Exercise (u nits unknown) (unknown) (unknown) (no date) (unknown) (unknown) Documented By: Celio Tejada MD 04/04/23 0855 (units unknown) (unknown) (unknown) (no date) (unknown) (unknown) Draft (units unknown) (unknown) (unknown) (no date) (unknown) (unknown) Exam Narrative (unit s unknown) (unknown) (unknown) (no date) (unknown) (unknown) Exam Narrative: (uni ts unknown) (unknown) (unknown) (no date) (unknown) (unknown) Exam (units unknown) (unknown) (unknown) (no date) (unknown) (unknown) FOLLOW UP BACK PAIN, PAIN SEEMS TO BE GETTING WORSE (units unknown) (unknown) (unknown) (no date) (unknown) (unknown) Family History (Updated 06/08/22 @ 21:23 by Aurora Arevalo) (units unknown) (unknown) (unknown) (no date) (unknown) (unknown) Father Diabete s mellitus (units unknown) (unknown) (unknown) (no date) (unknown) (unknown) Foot pain () (u nits unknown) (unknown) (unknown) (no date) (unknown) (unknown) Gait/Station - Non-antalgic gait. Heel/toe walking intact. Tandem gait normal (units unknown) (unknown) (unknown) (no date) (unknown) (unknown) General: Well-nourished, well-developed, female in no acute distress (units unknown) (unknown) (unknown) (no date) (unknown) (unknown) HPI (units unknown) (unknown) (unknown) (no date) (unknown) (unknown) Heavy menstrua l period (-2020) (units unknown) (unknown) (unknown) (no date) (unknown) (unknown) Height 5 ft 5 in (un its unknown) (unknown) (unknown) (no date) (unknown) (unknown) History of polyhydramnios (units unknown) (unknown) (unknown) (no date) (unknown) (unknown) History of surgery ( units unknown) (unknown) (unknown) (no date) (unknown) (unknown) Hot Flashes (units unknown) (unknown) (unknown) (no date) (unknown) (unknown) Ibuprofen 800 mg PRN - usually takes in the am (units unknown) (unknown) (unknown) (no date) (unknown) (unknown) Intake Clinical Staf f (units unknown) (unknown) (unknown) (no date) (unknown) (unknown) Intake Note: (units unknown) (unknown) (unknown) (no date) (unknown) (unknown) Intake perform ed by: Shell Portillo (units unknown) (unknown) (unknown) (no date) (unknown) (unknown) Intake (units unknown) (unknown) (unknown) (no date) (unknown) (unknown) Interval History: (u nits unknown) (unknown) (unknown) (no date) (unknown) (unknown) Intervention:?Date:?Outcome:?? ? (units unknown) (unknown) (unknown) (no date) (unknown) (unknown) Is patient in pain?: Yes (units unknown) (unknown) (unknown) (no date) (unknown) (unknown) JUSTIFICATION OF MEDICAL NECESSITY (units unknown) (unknown) (unknown) (no date) (unknown) (unknown) L-spine/T-spin e/C-spin e MRI ordered to better delineate the anatomy and help (units unknown) (unknown) (unknown) (no date) (unknown) (unknown) L2 Hip Flexion 5/5 5/5? (units unknown) (unknown) (unknown) (no date) (unknown) (unknown) L3 Knee Extens ion 5/5 5/5 (units unknown) (unknown) (unknown) (no date) (unknown) (unknown) L3-4 Patella 2+ 2 (u nits unknown) (unknown) (unknown) (no date) (unknown) (unknown) L4 Ankle Dorsi flexion /03/24 (units unknown) (unknown) (unknown) (no date) (unknown) (unknown) L5 Long Toe Ex tension 03/24 03/24 (units unknown) (unknown) (unknown) (no date) (unknown) (unknown) LS XR 02/25/23 (unit s unknown) (unknown) (unknown) (no date) (unknown) (unknown) Lidocaine patch 5% P RN (units unknown) (unknown) (unknown) (no date) (unknown) (unknown) Loc: PAIN (units unknown) (unknown) (unknown) (no date) (unknown) (unknown) Low back pain (units unknown) (unknown) (unknown) (no date) (unknown) (unknown) MSK: System re viewed and no additional complaints, except as documented. (units unknown) (unknown) (unknown) (no date) (unknown) (unknown) Medical Histor y (Updated 02/07/23 @ 10:11 by Celio Tejada MD) (units unknown) (unknown) (unknown) (no date) (unknown) (unknown) Medications (units unknown) (unknown) (unknown) (no date) (unknown) (unknown) Medications: (units unknown) (unknown) (unknown) (no date) (unknown) (unknown) Mental health proble m (units unknown) (unknown) (unknown) (no date) (unknown) (unknown) Mild degenerat katelyn changes of L4-5 and L5-S1. (units unknown) (unknown) (unknown) (no date) (unknown) (unknown) Mother Depression (u nits unknown) (unknown) (unknown) (no date) (unknown) (unknown) Motor (units unknown) (unknown) (unknown) (no date) (unknown) (unknown) Musculoskeletal: (un its unknown) (unknown) (unknown) (no date) (unknown) (unknown) Nearsightedness (uni ts unknown) (unknown) (unknown) (no date) (unknown) (unknown) Neuro: System reviewed and no additional complaints, except as documented. (units unknown) (unknown) (unknown) (no date) (unknown) (unknown) Neurologic: (units unknown) (unknown) (unknown) (no date) (unknown) (unknown) No evidence of acute bony abnormality of the left foot. (units unknown) (unknown) (unknown) (no date) (unknown) (unknown) Not indicated at this time. [] (units unknown) (unknown) (unknown) (no date) (unknown) (unknown) Numbness/Tingl ing: occasional tingling of the posterior left thigh (units unknown) (unknown) (unknown) (no date) (unknown) (unknown) Objective Data (unit s unknown) (unknown) (unknown) (no date) (unknown) (unknown) Objective Data: (uni ts unknown) (unknown) (unknown) (no date) (unknown) (unknown) Onset/Context of linh n: (units unknown) (unknown) (unknown) (no date) (unknown) (unknown) Onset: chronic , worsened after EBP (units unknown) (unknown) (unknown) (no date) (unknown) (unknown) Other: denies (units unknown) (unknown) (unknown) (no date) (unknown) (unknown) Oxygen Deliver y Method room air (units unknown) (unknown) (unknown) (no date) (unknown) (unknown) PFSH (units unknown) (unknown) (unknown) (no date) (unknown) (unknown) PT: PT schedul ed out for March 2023 at [facility] (units unknown) (unknown) (unknown) (no date) (unknown) (unknown) PTSD (post-tra umatic stress disorder) (-1999) (units unknown) (unknown) (unknown) (no date) (unknown) (unknown) Pain Scale (units unknown) (unknown) (unknown) (no date) (unknown) (unknown) Pain Visit (units unknown) (unknown) (unknown) (no date) (unknown) (unknown) Pain location/Radiation: Across the low back L=R, denies radiation to the legs (units unknown) (unknown) (unknown) (no date) (unknown) (unknown) Pain ratin /10 today, 9/10 at worst (units unknown) (unknown) (unknown) (no date) (unknown) (unknown) Painful menstr ual periods (-2019) (units unknown) (unknown) (unknown) (no date) (unknown) (unknown) Past medical, surgical, social, and family history is unchanged from prior (units unknown) (unknown) (unknown) (no date) (unknown) (unknown) Patient was neal mohan seen here on 02/07/2023.? Since this time she has been seen in (units unknown) (unknown) (unknown) (no date) (unknown) (unknown) Patient will r eturn for []. Risks and benefits were discussed. (units unknown) (unknown) (unknown) (no date) (unknown) (unknown) Patient's pain has been present for >6 weeks and is an average of >6/10 on 0-10 (units unknown) (unknown) (unknown) (no date) (unknown) (unknown) Patient: Hardy Cruz MR# (units unknown) (unknown) (unknown) (no date) (unknown) (unknown) Plan (units unknown) (unknown) (unknown) (no date) (unknown) (unknown) Plan/Recommendations : (units unknown) (unknown) (unknown) (no date) (unknown) (unknown) Polyhydramnios (unit s unknown) (unknown) (unknown) (no date) (unknown) (unknown) Position Sitting (un its unknown) (unknown) (unknown) (no date) (unknown) (unknown) depressio n (units unknown) (unknown) (unknown) (no date) (unknown) (unknown) Prescriptions Written: [] (units unknown) (unknown) (unknown) (no date) (unknown) (unknown) Previous Visit Assessment: Feliciano is a 32-year-old female presenting for further (units unknown) (unknown) (unknown) (no date) (unknown) (unknown) Previous gladys joseph section (units unknown) (unknown) (unknown) (no date) (unknown) (unknown) Previous pain treatments included: (units unknown) (unknown) (unknown) (no date) (unknown) (unknown) Psych: Appropr iate affect, answers questions appropriately (units unknown) (unknown) (unknown) (no date) (unknown) (unknown) Pulse 83 (units unknown) (unknown) (unknown) (no date) (unknown) (unknown) Pulse Oximetry (%) 9 9 (units unknown) (unknown) (unknown) (no date) (unknown) (unknown) Pulse Source Monitor (units unknown) (unknown) (unknown) (no date) (unknown) (unknown) Quality and ti carly of pain: constant, deep, dull (units unknown) (unknown) (unknown) (no date) (unknown) (unknown) ROS Narrative (units unknown) (unknown) (unknown) (no date) (unknown) (unknown) ROS Narrative: (unit s unknown) (unknown) (unknown) (no date) (unknown) (unknown) ROS (units unknown) (unknown) (unknown) (no date) (unknown) (unknown) Reason For Visit (un its unknown) (unknown) (unknown) (no date) (unknown) (unknown) Red flag symptoms: ( units unknown) (unknown) (unknown) (no date) (unknown) (unknown) Reflex Right Left (u nits unknown) (unknown) (unknown) (no date) (unknown) (unknown) Reflexes: (units unknown) (unknown) (unknown) (no date) (unknown) (unknown) Relieving fact ors include: lying down (units unknown) (unknown) (unknown) (no date) (unknown) (unknown) Respiratory: Non-labored breathing pattern on RA. No respiratory distress (units unknown) (unknown) (unknown) (no date) (unknown) (unknown) Restless leg syndrom e (units unknown) (unknown) (unknown) (no date) (unknown) (unknown) S1 Ankle Plantarflexion 5/5 5/5 (units unknown) (unknown) (unknown) (no date) (unknown) (unknown) S1-2 Achilles 2+ 2 ( units unknown) (unknown) (unknown) (no date) (unknown) (unknown) Saddle anesthe carlos: denies (units unknown) (unknown) (unknown) (no date) (unknown) (unknown) Safety (units unknown) (unknown) (unknown) (no date) (unknown) (unknown) Segment Action Right Left (units unknown) (unknown) (unknown) (no date) (unknown) (unknown) Segment Reflex Right Left (units unknown) (unknown) (unknown) (no date) (unknown) (unknown) Sensory -? Int act to light touch of bilateral lower extremities. Allodynia (units unknown) (unknown) (unknown) (no date) (unknown) (unknown) She notes that her pain feels more intense and the region of pain is getting (units unknown) (unknown) (unknown) (no date) (unknown) (unknown) Signed By: (units unknown) (unknown) (unknown) (no date) (unknown) (unknown) Skin: No appre ciable rashes or skin breakdown (units unknown) (unknown) (unknown) (no date) (unknown) (unknown) Smoking Status : Former smoker (units unknown) (unknown) (unknown) (no date) (unknown) (unknown) Social History (unit s unknown) (unknown) (unknown) (no date) (unknown) (unknown) Son Hearing loss (un its unknown) (unknown) (unknown) (no date) (unknown) (unknown) Standing: limi hanny due to pain (units unknown) (unknown) (unknown) (no date) (unknown) (unknown) Surgery: denies (uni ts unknown) (unknown) (unknown) (no date) (unknown) (unknown) Surgical Histo ry (Updated 07/12/22 @ 15:10 by Josefina Baumann MD) (units unknown) (unknown) (unknown) (no date) (unknown) (unknown) Temp 98.4 F (units unknown) (unknown) (unknown) (no date) (unknown) (unknown) Temp Source Te mporal Artery Scan (units unknown) (unknown) (unknown) (no date) (unknown) (unknown) [facility] (units unknown) (unknown) (unknown) (no date) (unknown) (unknown) This note may have been all or partially generated using voice recognition (units unknown) (unknown) (unknown) (no date) (unknown) (unknown) Tobacco + Subs tance Use (units unknown) (unknown) (unknown) (no date) (unknown) (unknown) Tobacco Status (unit s unknown) (unknown) (unknown) (no date) (unknown) (unknown) Today I have r eviewed available medical information in the patient's medical (units unknown) (unknown) (unknown) (no date) (unknown) (unknown) Tylenol PRN (units unknown) (unknown) (unknown) (no date) (unknown) (unknown) Type(s) of exe rcise: walking (units unknown) (unknown) (unknown) (no date) (unknown) (unknown) Upper Motor Ne uron Signs: (units unknown) (unknown) (unknown) (no date) (unknown) (unknown) Visit Reasons: follow up (was in the ER) (units unknown) (unknown) (unknown) (no date) (unknown) (unknown) Vitals (units unknown) (unknown) (unknown) (no date) (unknown) (unknown) [facility] x[facility] (units unknown) (unknown) (unknown) (no date) (unknown) (unknown) Walking: walks slower due to pain (units unknown) (unknown) (unknown) (no date) (unknown) (unknown) [place] Prescription Monitoring Program (COMMERCIAL REAL ESTATE AGENT) was reviewed. (units unknown) (unknown) (unknown) (no date) (unknown) (unknown) We reviewed et iology, predisposing factor(s), natural course, imaging results as (units unknown) (unknown) (unknown) (no date) (unknown) (unknown) Weakness: denies (un its unknown) (unknown) (unknown) (no date) (unknown) (unknown) Weight 276 lb (units unknown) (unknown) (unknown) (no date) (unknown) (unknown) Roy teeth extract ed (units unknown) (unknown) (unknown) (no date) (unknown) (unknown) X-ray left verena t 02/25/2023: (units unknown) (unknown) (unknown) (no date) (unknown) (unknown) X-ray lumbar s pine 02/25/2023: (units unknown) (unknown) (unknown) (no date) (unknown) (unknown) a long-term me dication and other NSAIDs should be avoided while on meloxicam.' (units unknown) (unknown) (unknown) (no date) (unknown) (unknown) additional soc ial history: Difficulty other children. Would (units unknown) (unknown) (unknown) (no date) (unknown) (unknown) ago. She has d one 2 sessions and feels that they are a little helpful. She (units unknown) (unknown) (unknown) (no date) (unknown) (unknown) alcohol intake: form er (units unknown) (unknown) (unknown) (no date) (unknown) (unknown) and Kenalog.? Her 2nd visit was on 03/05/2023 for acute on chronic low back (units unknown) (unknown) (unknown) (no date) (unknown) (unknown) and we discuss ed taking this for up to several months.? This is not meant to be (units unknown) (unknown) (unknown) (no date) (unknown) (unknown) arthropathy an d myofascial pain.? I do not feel there is a radicular component (units unknown) (unknown) (unknown) (no date) (unknown) (unknown) back pain and a history of herniated disc in the lumbar spine.? She reports (units unknown) (unknown) (unknown) (no date) (unknown) (unknown) benefits of va rious treatment options were discussed with the patient in great (units unknown) (unknown) (unknown) (no date) (unknown) (unknown) bowel/bladder dysfunction, and perineal numbness were discussed. The patient was (units unknown) (unknown) (unknown) (no date) (unknown) (unknown) bulge at L5-S1 without central canal or neuroforaminal stenosis.? There is also (units unknown) (unknown) (unknown) (no date) (unknown) (unknown) caffeine: Yes (soft drinks in small quantities, well within 200mg limit) (units unknown) (unknown) (unknown) (no date) (unknown) (unknown) cannot tolerat e physical therapy at the current time due to the intensity of the (units unknown) (unknown) (unknown) (no date) (unknown) (unknown) carbon monox d etector in home: Yes (units unknown) (unknown) (unknown) (no date) (unknown) (unknown) changes.? Last ly, there is evidence of multilevel facet hypertrophy.? Lumbar x (units unknown) (unknown) (unknown) (no date) (unknown) (unknown) current occupa tional exposures/hazards: Yes (units unknown) (unknown) (unknown) (no date) (unknown) (unknown) daily servings fruits/ve or more times/day (units unknown) (unknown) (unknown) (no date) (unknown) (unknown) delivery. (units unknown) (unknown) (unknown) (no date) (unknown) (unknown) department. (units unknown) (unknown) (unknown) (no date) (unknown) (unknown) detail. (units unknown) (unknown) (unknown) (no date) (unknown) (unknown) do you feel sa fe at home: Yes (units unknown) (unknown) (unknown) (no date) (unknown) (unknown) double electri c breast pump 1 ea topical .prn #1 ea 11/01/22 [Rx Confirmed (units unknown) (unknown) (unknown) (no date) (unknown) (unknown) during the pas t year weight has: other (wide fluctuations since last ) (units unknown) (unknown) (unknown) (no date) (unknown) (unknown) education leve l: vocational (some college, certificate programs) (units unknown) (unknown) (unknown) (no date) (unknown) (unknown) evaluation of acute on chronic low back pain.? She reports long history of low (units unknown) (unknown) (unknown) (no date) (unknown) (unknown) evidence of degenerative disc disease at L4-5 and L5-S1 as well as Modic (units unknown) (unknown) (unknown) (no date) (unknown) (unknown) fire extinguis her in home: Yes (units unknown) (unknown) (unknown) (no date) (unknown) (unknown) firearms in ho me: Yes firearms unloaded and locked: Yes (units unknown) (unknown) (unknown) (no date) (unknown) (unknown) flaxseed Aller gy (Severe, Verified 04/06/23 09:30) (units unknown) (unknown) (unknown) (no date) (unknown) (unknown) fracture.? She had an injection of the 5th tarsal metatarsal area with Marcaine (units unknown) (unknown) (unknown) (no date) (unknown) (unknown) grade breast p ump that she can have when she goes home from hospital after (units unknown) (unknown) (unknown) (no date) (unknown) (unknown) have occurred. If there are any questions, please contact the Medical Records (units unknown) (unknown) (unknown) (no date) (unknown) (unknown) household memb ers: spouse, family ([id number] and his 3 children (moving out (units unknown) (unknown) (unknown) (no date) (unknown) (unknown) housing: house (unit s unknown) (unknown) (unknown) (no date) (unknown) (unknown) ibuprofen 800 mg tablet 800 mg PO Q8H 04/06/23 [History Confirmed 04/06/23] (units unknown) (unknown) (unknown) (no date) (unknown) (unknown) improved sleep , improved mobility, etc. (units unknown) (unknown) (unknown) (no date) (unknown) (unknown) in PT. [] (units unknown) (unknown) (unknown) (no date) (unknown) (unknown) instructed to report to the Emergency department, if these symptoms occur. (units unknown) (unknown) (unknown) (no date) (unknown) (unknown) instructed to stop if any side effects. [] (units unknown) (unknown) (unknown) (no date) (unknown) (unknown) intravenous dr ug use, sustained glucocorticoid use, osteoporosis, or a focal (units unknown) (unknown) (unknown) (no date) (unknown) (unknown) is likely multifactorial including components of vertebrogenic, facet (units unknown) (unknown) (unknown) (no date) (unknown) (unknown) levothyroxine 137 mcg tablet 137 mcg PO DAILY #30 tabs 10/17/22 [Rx Confirmed (units unknown) (unknown) (unknown) (no date) (unknown) (unknown) lidocaine 5 % topical patch 1 patch transdermal DAILY PRN 04/06/23 [History (units unknown) (unknown) (unknown) (no date) (unknown) (unknown) lives independ ently: Yes (units unknown) (unknown) (unknown) (no date) (unknown) (unknown) local anesthet ic. During that time patient able to participate in ADLs, had (units unknown) (unknown) (unknown) (no date) (unknown) (unknown) marital status : (units unknown) (unknown) (unknown) (no date) (unknown) (unknown) may occur. Occ asional wrong-word or 'sound-alike' substitutions may have (units unknown) (unknown) (unknown) (no date) (unknown) (unknown) meds. [] (units unknown) (unknown) (unknown) (no date) (unknown) (unknown) meloxicam 7.5 mg tablet 7.5 mg PO DAILY #30 tabs 02/07/23 [Rx Confirmed (units unknown) (unknown) (unknown) (no date) (unknown) (unknown) meloxicam but stopped because it wasn't helpful. She started PT about 3 weeks (units unknown) (unknown) (unknown) (no date) (unknown) (unknown) needed - given by recent ED visit (units unknown) (unknown) (unknown) (no date) (unknown) (unknown) negative, Hype ralgesia - negative (units unknown) (unknown) (unknown) (no date) (unknown) (unknown) neurological d eficit with progressive or disabling symptoms. (units unknown) (unknown) (unknown) (no date) (unknown) (unknown) number of children: 3 (units unknown) (unknown) (unknown) (no date) (unknown) (unknown) occupational s tatus: unemployed and previously employed (units unknown) (unknown) (unknown) (no date) (unknown) (unknown) occurred due t o the inherent limitations of voice recognition software. Please (units unknown) (unknown) (unknown) (no date) (unknown) (unknown) of Spinal Cord Injur y) (units unknown) (unknown) (unknown) (no date) (unknown) (unknown) or immunosuppr essive therapy, previous or current cancer diagnosis, history of (units unknown) (unknown) (unknown) (no date) (unknown) (unknown) pain. [] (units unknown) (unknown) (unknown) (no date) (unknown) (unknown) pain.? She rec eived Decadron (hot flashes) and Toradol in the emergency (units unknown) (unknown) (unknown) (no date) (unknown) (unknown) pets and anima ls: Yes (horses) (units unknown) (unknown) (unknown) (no date) (unknown) (unknown) prednisone Adv erse Reaction (Mild, Verified 04/06/23 09:30) (units unknown) (unknown) (unknown) (no date) (unknown) (unknown) prenat.vits,ca l,min-ir on-folic 1 tab PO DAILY 04/22/22 [History Confirmed (units unknown) (unknown) (unknown) (no date) (unknown) (unknown) rays had not b een performed at the time of this evaluation.? Her low back pain (units unknown) (unknown) (unknown) (no date) (unknown) (unknown) read the note carefully and recognize, using context, where these substitutions (units unknown) (unknown) (unknown) (no date) (unknown) (unknown) really like to meet w/ [facility] prior to delivery and would like Rx for hospital (units unknown) (unknown) (unknown) (no date) (unknown) (unknown) record, includ ing relevant provider notes, laboratory work, and imaging. (units unknown) (unknown) (unknown) (no date) (unknown) (unknown) scale and/or p ain interferes with ADLs. (units unknown) (unknown) (unknown) (no date) (unknown) (unknown) seatbelt use: always (units unknown) (unknown) (unknown) (no date) (unknown) (unknown) second hand ex posure: No (units unknown) (unknown) (unknown) (no date) (unknown) (unknown) software. Alth ough every effort is made to edit content, bookbinder chief errors (units unknown) (unknown) (unknown) (no date) (unknown) (unknown) sometimes does exercises at home. (units unknown) (unknown) (unknown) (no date) (unknown) (unknown) soon)) and children (units unknown) (unknown) (unknown) (no date) (unknown) (unknown) special roland needs: No (units unknown) (unknown) (unknown) (no date) (unknown) (unknown) starting physi alexey therapy and nonsteroidal medications.? Meloxicam was ordered (units unknown) (unknown) (unknown) (no date) (unknown) (unknown) substance use type: marijuana (in the past, not recently and not while ) (units unknown) (unknown) (unknown) (no date) (unknown) (unknown) the emergency department twice at [facility].? Her 1st visit (units unknown) (unknown) (unknown) (no date) (unknown) (unknown) therapeutic in jections and surgery. The risks, consequences, alternatives and (units unknown) (unknown) (unknown) (no date) (unknown) (unknown) therapy. ?A re ferral was provided for the patient. [] (units unknown) (unknown) (unknown) (no date) (unknown) (unknown) to her pain at this time.? Conservative management was encouraged including (units unknown) (unknown) (unknown) (no date) (unknown) (unknown) visit. (units unknown) (unknown) (unknown) (no date) (unknown) (unknown) was on 023 for left foot pain.? X-ray did not show any evidence of acute (units unknown) (unknown) (unknown) (no date) (unknown) (unknown) water heater t emp set < 120 deg: Yes (units unknown) (unknown) (unknown) (no date) (unknown) (unknown) well as treatm ent options including medications, physical therapy/exercise, (units unknown) (unknown) (unknown) (no date) (unknown) (unknown) well-balanced diet: daily or most days (units unknown) (unknown) (unknown) (no date) (unknown) (unknown) with future tr eatment planning. [] (units unknown) (unknown) (unknown) (no date) (unknown) (unknown) without eviden ce of ataxia. Lower quarter stability intact. (units unknown) (unknown) (unknown) (no date) (unknown) (unknown) working smoke detector in home: Yes (units unknown) (unknown) (unknown) (no date) (unknown) (unknown) worse. She not ed that the medications from the ED were helpful. She was on (units unknown) (unknown) (unknown) (no date) (unknown) (unknown) worsening of h er pain status post epidural blood patch.? MRI showed slight disc (units unknown) (unknown) Result panel 20 (unknown) (no date) (unknown) (unknown) (no value) (units unknown) (unknown) (unknown) (no date) (unknown) (unknown) (0=absent, 1=s light response, 2=brisk/normal, 3=very brisk, 4=clonus) (units unknown) (unknown) (unknown) (no date) (unknown) (unknown) (segments are from the International Standards for Neurological Classification (units unknown) (unknown) (unknown) (no date) (unknown) (unknown) - Activity: Co ntinue activity as tolerated. [] (units unknown) (unknown) (unknown) (no date) (unknown) (unknown) - Chiropractor , acupuncture[] (units unknown) (unknown) (unknown) (no date) (unknown) (unknown) - Continues cl inician directed home exercise program including exercises learned (units unknown) (unknown) (unknown) (no date) (unknown) (unknown) - Education: C auda equina and associated symptoms, including motor weakness, (units unknown) (unknown) (unknown) (no date) (unknown) (unknown) - FADIR: Negat katelyn bilaterally (units unknown) (unknown) (unknown) (no date) (unknown) (unknown) - Follow-up: [] (uni ts unknown) (unknown) (unknown) (no date) (unknown) (unknown) - Hip ROM is: Within normal limits (units unknown) (unknown) (unknown) (no date) (unknown) (unknown) - I discussed risks, benefits and side effects. Additionally, patient was (units unknown) (unknown) (unknown) (no date) (unknown) (unknown) - Imaging: No new imaging indicated at this time. [] (units unknown) (unknown) (unknown) (no date) (unknown) (unknown) - Interventional/Surgica l procedures: None indicated at this time. [] (units unknown) (unknown) (unknown) (no date) (unknown) (unknown) - Lumbar facet loading: Positive bilaterally (units unknown) (unknown) (unknown) (no date) (unknown) (unknown) - Medications: No new prescription at this time. Patient will continue current (units unknown) (unknown) (unknown) (no date) (unknown) (unknown) - Medications: acetaminophen, NSAIDS, neuropathics, muscle relaxants [] (units unknown) (unknown) (unknown) (no date) (unknown) (unknown) - Physical The rapy: Completed 6 week course in the last 6 months OR Patient (units unknown) (unknown) (unknown) (no date) (unknown) (unknown) - Physical therapy/modalities/DME : Patient will likely benefit from physical (units unknown) (unknown) (unknown) (no date) (unknown) (unknown) - Prescription provided and uptitration instructions given if necessary. [] (units unknown) (unknown) (unknown) (no date) (unknown) (unknown) - Previous [] on [] provided []% relief of pain for the expected duration of the (units unknown) (unknown) (unknown) (no date) (unknown) (unknown) - Referrals: N one indicated at this time. [] (units unknown) (unknown) (unknown) (no date) (unknown) (unknown) - SIJ provocat ion testing: Negative bilaterally (units unknown) (unknown) (unknown) (no date) (unknown) (unknown) - Straight Leg Raise: Negative bilaterally (units unknown) (unknown) (unknown) (no date) (unknown) (unknown) 04/06/23 (units unknown) (unknown) (unknown) (no date) (unknown) (unknown) 04/06/23] (units unknown) (unknown) (unknown) (no date) (unknown) (unknown) 09:29 (units unknown) (unknown) (unknown) (no date) (unknown) (unknown) : [id number] (units unknown) (unknown) (unknown) (no date) (unknown) (unknown) ? Denies? (units unknown) (unknown) (unknown) (no date) (unknown) (unknown) ? Inspection - ? No gross appendicular or axial deformities (units unknown) (unknown) (unknown) (no date) (unknown) (unknown) ? Palpation -tenderness to palpation midline low back (units unknown) (unknown) (unknown) (no date) (unknown) (unknown) ? ROM -lumbar extension limited due to pain (units unknown) (unknown) (unknown) (no date) (unknown) (unknown) ? Special tests (uni ts unknown) (unknown) (unknown) (no date) (unknown) (unknown) ? Acetaminophen - doesn't help (units unknown) (unknown) (unknown) (no date) (unknown) (unknown) ? Antidepressants - celexa - no longer taking (units unknown) (unknown) (unknown) (no date) (unknown) (unknown) ? Antiepileptics - denies (units unknown) (unknown) (unknown) (no date) (unknown) (unknown) ? Mu scle Relaxants - denies (units unknown) (unknown) (unknown) (no date) (unknown) (unknown) ? NS AIDs - naproxen, ibuprofen (units unknown) (unknown) (unknown) (no date) (unknown) (unknown) ? Op ioids - Hydrocodone-acetaminop hen 5-325 mg 1 tab q.6 hours as (units unknown) (unknown) (unknown) (no date) (unknown) (unknown) ? St eroids - denies (units unknown) (unknown) (unknown) (no date) (unknown) (unknown) ? To picals - lidoderm (units unknown) (unknown) (unknown) (no date) (unknown) (unknown) ADHD (units unknown) (unknown) (unknown) (no date) (unknown) (unknown) Accompanied by : Self / Same As Patient (units unknown) (unknown) (unknown) (no date) (unknown) (unknown) Additional Soc ial History (units unknown) (unknown) (unknown) (no date) (unknown) (unknown) Age/Sex: 32 / F Date of Service: (units unknown) (unknown) (unknown) (no date) (unknown) (unknown) Aggravating fa ctors include: sitting, chores that require bending (units unknown) (unknown) (unknown) (no date) (unknown) (unknown) Alcoholism (units unknown) (unknown) (unknown) (no date) (unknown) (unknown) All other syst ems reviewed and are unremarkable except as noted in HPI. (units unknown) (unknown) (unknown) (no date) (unknown) (unknown) Allergies (units unknown) (unknown) (unknown) (no date) (unknown) (unknown) [place] [id number] (units unknown) (unknown) (unknown) (no date) (unknown) (unknown) Anaphylaxis (units unknown) (unknown) (unknown) (no date) (unknown) (unknown) Anesthesia (units unknown) (unknown) (unknown) (no date) (unknown) (unknown) Assessment + Plan (u nits unknown) (unknown) (unknown) (no date) (unknown) (unknown) Assessment: (units unknown) (unknown) (unknown) (no date) (unknown) (unknown) Attending Dr: Celio Tejada MD (units unknown) (unknown) (unknown) (no date) (unknown) (unknown) BMI 45.9 (units unknown) (unknown) (unknown) (no date) (unknown) (unknown) BP 106/74 (units unknown) (unknown) (unknown) (no date) (unknown) (unknown) Saleem's Abby ngoing Downgoing (units unknown) (unknown) (unknown) (no date) (unknown) (unknown) Blood Pressure Location Rt radial (units unknown) (unknown) (unknown) (no date) (unknown) (unknown) Bowel and blad yan: No loss of control (units unknown) (unknown) (unknown) (no date) (unknown) (unknown) Carpal tunnel syndrome (-2017) (units unknown) (unknown) (unknown) (no date) (unknown) (unknown) Chart review: (units unknown) (unknown) (unknown) (no date) (unknown) (unknown) Chief Complaint (uni ts unknown) (unknown) (unknown) (no date) (unknown) (unknown) Chief Complain t: Follow-up (units unknown) (unknown) (unknown) (no date) (unknown) (unknown) Clonus None None (un its unknown) (unknown) (unknown) (no date) (unknown) (unknown) Confirmed 04/06/23] (units unknown) (unknown) (unknown) (no date) (unknown) (unknown) Conservative management includes: (units unknown) (unknown) (unknown) (no date) (unknown) (unknown) Continue curre nt physical therapy. [] (units unknown) (unknown) (unknown) (no date) (unknown) (unknown) Continue home exercise program. 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 (units unknown) (unknown) (unknown) (no date) (unknown) (unknown) Details: (units unknown) (unknown) (unknown) (no date) (unknown) (unknown) Diet and Exercise (u nits unknown) (unknown) (unknown) (no date) (unknown) (unknown) Discontinued R gaye: Provider's Order 7.5 mg PO DAILY 30 tabs 2RF (units unknown) (unknown) (unknown) (no date) (unknown) (unknown) Discontinued R gaye: Provider's Order 800 mg PO Q8H (units unknown) (unknown) (unknown) (no date) (unknown) (unknown) Discontinued (units unknown) (unknown) (unknown) (no date) (unknown) (unknown) Documented By: Celio Tejada MD 04/04/23 0855 (units unknown) (unknown) (unknown) (no date) (unknown) (unknown) Draft (units unknown) (unknown) (unknown) (no date) (unknown) (unknown) Exam Narrative (unit s unknown) (unknown) (unknown) (no date) (unknown) (unknown) Exam Narrative: (uni ts unknown) (unknown) (unknown) (no date) (unknown) (unknown) Exam (units unknown) (unknown) (unknown) (no date) (unknown) (unknown) FOLLOW UP BACK PAIN, PAIN SEEMS TO BE GETTING WORSE (units unknown) (unknown) (unknown) (no date) (unknown) (unknown) Family History (Updated 06/08/22 @ 21:23 by Aurora Arevalo) (units unknown) (unknown) (unknown) (no date) (unknown) (unknown) Father Diabete s mellitus (units unknown) (unknown) (unknown) (no date) (unknown) (unknown) Foot pain () (u nits unknown) (unknown) (unknown) (no date) (unknown) (unknown) Gait/Station - Non-antalgic gait. Heel/toe walking intact. Tandem gait normal (units unknown) (unknown) (unknown) (no date) (unknown) (unknown) General: Well-nourished, well-developed, female in no acute distress (units unknown) (unknown) (unknown) (no date) (unknown) (unknown) HPI (units unknown) (unknown) (unknown) (no date) (unknown) (unknown) Heavy menstrua l period () (units unknown) (unknown) (unknown) (no date) (unknown) (unknown) Height 5 ft 5 in (un its unknown) (unknown) (unknown) (no date) (unknown) (unknown) History of polyhydramnios (units unknown) (unknown) (unknown) (no date) (unknown) (unknown) History of surgery ( units unknown) (unknown) (unknown) (no date) (unknown) (unknown) Hot Flashes (units unknown) (unknown) (unknown) (no date) (unknown) (unknown) Ibuprofen 800 mg PRN - usually takes in the am (units unknown) (unknown) (unknown) (no date) (unknown) (unknown) Intake Clinical Staf f (units unknown) (unknown) (unknown) (no date) (unknown) (unknown) Intake Note: (units unknown) (unknown) (unknown) (no date) (unknown) (unknown) Intake perform ed by: Shell Portillo (units unknown) (unknown) (unknown) (no date) (unknown) (unknown) Intake (units unknown) (unknown) (unknown) (no date) (unknown) (unknown) Interval History: (u nits unknown) (unknown) (unknown) (no date) (unknown) (unknown) Intervention:?Date:?Outcome:?? ? (units unknown) (unknown) (unknown) (no date) (unknown) (unknown) Is patient in pain?: Yes (units unknown) (unknown) (unknown) (no date) (unknown) (unknown) JUSTIFICATION OF MEDICAL NECESSITY (units unknown) (unknown) (unknown) (no date) (unknown) (unknown) L-spine/T-spin e/C-spin e MRI ordered to better delineate the anatomy and help (units unknown) (unknown) (unknown) (no date) (unknown) (unknown) L2 Hip Flexion 5/5 5/5? (units unknown) (unknown) (unknown) (no date) (unknown) (unknown) L3 Knee Extens ion 5/5 5/5 (units unknown) (unknown) (unknown) (no date) (unknown) (unknown) L3-4 Patella 2+ 2 (u nits unknown) (unknown) (unknown) (no date) (unknown) (unknown) L4 Ankle Dorsi flexion 5/5 5/5 (units unknown) (unknown) (unknown) (no date) (unknown) (unknown) L5 Long Toe Ex tension 5/5 5/5 (units unknown) (unknown) (unknown) (no date) (unknown) (unknown) LS XR 02/25/23 (unit s unknown) (unknown) (unknown) (no date) (unknown) (unknown) Lidocaine patch 5% P RN (units unknown) (unknown) (unknown) (no date) (unknown) (unknown) Loc: PAIN (units unknown) (unknown) (unknown) (no date) (unknown) (unknown) Low back pain (units unknown) (unknown) (unknown) (no date) (unknown) (unknown) MSK: System re viewed and no additional complaints, except as documented. (units unknown) (unknown) (unknown) (no date) (unknown) (unknown) Medical Histor y (Updated 02/07/23 @ 10:11 by Celio Tejada MD) (units unknown) (unknown) (unknown) (no date) (unknown) (unknown) Medications (units unknown) (unknown) (unknown) (no date) (unknown) (unknown) Medications: (units unknown) (unknown) (unknown) (no date) (unknown) (unknown) Mental health proble m (units unknown) (unknown) (unknown) (no date) (unknown) (unknown) Mild degenerat katelyn changes of L4-5 and L5-S1. (units unknown) (unknown) (unknown) (no date) (unknown) (unknown) Mother Depression (u nits unknown) (unknown) (unknown) (no date) (unknown) (unknown) Motor (units unknown) (unknown) (unknown) (no date) (unknown) (unknown) Musculoskeletal: (un its unknown) (unknown) (unknown) (no date) (unknown) (unknown) Nearsightedness (uni ts unknown) (unknown) (unknown) (no date) (unknown) (unknown) Neuro: System reviewed and no additional complaints, except as documented. (units unknown) (unknown) (unknown) (no date) (unknown) (unknown) Neurologic: (units unknown) (unknown) (unknown) (no date) (unknown) (unknown) New (units unknown) (unknown) (unknown) (no date) (unknown) (unknown) No evidence of acute bony abnormality of the left foot. (units unknown) (unknown) (unknown) (no date) (unknown) (unknown) Not indicated at this time. [] (units unknown) (unknown) (unknown) (no date) (unknown) (unknown) Numbness/Tingl ing: occasional tingling of the posterior left thigh (units unknown) (unknown) (unknown) (no date) (unknown) (unknown) Objective Data (unit s unknown) (unknown) (unknown) (no date) (unknown) (unknown) Objective Data: (uni ts unknown) (unknown) (unknown) (no date) (unknown) (unknown) Onset/Context of linh n: (units unknown) (unknown) (unknown) (no date) (unknown) (unknown) Onset: chronic , worsened after EBP (units unknown) (unknown) (unknown) (no date) (unknown) (unknown) Other: denies (units unknown) (unknown) (unknown) (no date) (unknown) (unknown) Oxygen Deliver y Method room air (units unknown) (unknown) (unknown) (no date) (unknown) (unknown) PFSH (units unknown) (unknown) (unknown) (no date) (unknown) (unknown) PT: PT zaidaul ed out for March 2023 at [facility] (units unknown) (unknown) (unknown) (no date) (unknown) (unknown) PTSD (post-tra umatic stress disorder) (-1999) (units unknown) (unknown) (unknown) (no date) (unknown) (unknown) Pain Scale (units unknown) (unknown) (unknown) (no date) (unknown) (unknown) Pain Visit (units unknown) (unknown) (unknown) (no date) (unknown) (unknown) Pain location/Radiation: Across the low back L=R, denies radiation to the legs (units unknown) (unknown) (unknown) (no date) (unknown) (unknown) Pain ratin /10 today, 9/10 at worst (units unknown) (unknown) (unknown) (no date) (unknown) (unknown) Painful menstr ual periods (-2019) (units unknown) (unknown) (unknown) (no date) (unknown) (unknown) Past medical, surgical, social, and family history is unchanged from prior (units unknown) (unknown) (unknown) (no date) (unknown) (unknown) Patient was neal mohan seen here on 02/07/2023.? Since this time she has been seen in (units unknown) (unknown) (unknown) (no date) (unknown) (unknown) Patient will r eturn for []. Risks and benefits were discussed. (units unknown) (unknown) (unknown) (no date) (unknown) (unknown) Patient's pain has been present for >6 weeks and is an average of >6/10 on 0-10 (units unknown) (unknown) (unknown) (no date) (unknown) (unknown) Patient: Hardy Cruz MR# (units unknown) (unknown) (unknown) (no date) (unknown) (unknown) Plan (units unknown) (unknown) (unknown) (no date) (unknown) (unknown) Plan/Recommendations : (units unknown) (unknown) (unknown) (no date) (unknown) (unknown) Polyhydramnios (unit s unknown) (unknown) (unknown) (no date) (unknown) (unknown) Position Sitting (un its unknown) (unknown) (unknown) (no date) (unknown) (unknown) depressio n (units unknown) (unknown) (unknown) (no date) (unknown) (unknown) Prescriptions Written: [] (units unknown) (unknown) (unknown) (no date) (unknown) (unknown) Previous Visit Assessment: Feliciano is a 32-year-old female presenting for further (units unknown) (unknown) (unknown) (no date) (unknown) (unknown) Previous gladys joseph section (units unknown) (unknown) (unknown) (no date) (unknown) (unknown) Previous pain treatments included: (units unknown) (unknown) (unknown) (no date) (unknown) (unknown) Psych: Appropr iate affect, answers questions appropriately (units unknown) (unknown) (unknown) (no date) (unknown) (unknown) Pulse 83 (units unknown) (unknown) (unknown) (no date) (unknown) (unknown) Pulse Oximetry (%) 9 9 (units unknown) (unknown) (unknown) (no date) (unknown) (unknown) Pulse Source Monitor (units unknown) (unknown) (unknown) (no date) (unknown) (unknown) Quality and ti carly of pain: constant, deep, dull (units unknown) (unknown) (unknown) (no date) (unknown) (unknown) ROS Narrative (units unknown) (unknown) (unknown) (no date) (unknown) (unknown) ROS Narrative: (unit s unknown) (unknown) (unknown) (no date) (unknown) (unknown) ROS (units unknown) (unknown) (unknown) (no date) (unknown) (unknown) Reason For Visit (un its unknown) (unknown) (unknown) (no date) (unknown) (unknown) Red flag symptoms: ( units unknown) (unknown) (unknown) (no date) (unknown) (unknown) Reflex Right Left (u nits unknown) (unknown) (unknown) (no date) (unknown) (unknown) Reflexes: (units unknown) (unknown) (unknown) (no date) (unknown) (unknown) Relieving fact ors include: lying down (units unknown) (unknown) (unknown) (no date) (unknown) (unknown) Respiratory: Non-labored breathing pattern on RA. No respiratory distress (units unknown) (unknown) (unknown) (no date) (unknown) (unknown) Restless leg syndrom e (units unknown) (unknown) (unknown) (no date) (unknown) (unknown) S1 Ankle Plantarflexion 5/5 5/5 (units unknown) (unknown) (unknown) (no date) (unknown) (unknown) S1-2 Achilles 2+ 2 ( units unknown) (unknown) (unknown) (no date) (unknown) (unknown) Saddle anesthe carlos: denies (units unknown) (unknown) (unknown) (no date) (unknown) (unknown) Safety (units unknown) (unknown) (unknown) (no date) (unknown) (unknown) Segment Action Right Left (units unknown) (unknown) (unknown) (no date) (unknown) (unknown) Segment Reflex Right Left (units unknown) (unknown) (unknown) (no date) (unknown) (unknown) Sensory -? Int act to light touch of bilateral lower extremities. Allodynia (units unknown) (unknown) (unknown) (no date) (unknown) (unknown) She notes that her pain feels more intense and the region of pain is getting (units unknown) (unknown) (unknown) (no date) (unknown) (unknown) Signed By: (units unknown) (unknown) (unknown) (no date) (unknown) (unknown) Skin: No appre ciable rashes or skin breakdown (units unknown) (unknown) (unknown) (no date) (unknown) (unknown) Smoking Status : Former smoker (units unknown) (unknown) (unknown) (no date) (unknown) (unknown) Social History (unit s unknown) (unknown) (unknown) (no date) (unknown) (unknown) Son Hearing loss (un its unknown) (unknown) (unknown) (no date) (unknown) (unknown) Standing: jaylenei hanny due to pain (units unknown) (unknown) (unknown) (no date) (unknown) (unknown) Surgery: denies (uni ts unknown) (unknown) (unknown) (no date) (unknown) (unknown) Surgical Histo ry (Updated 07/12/22 @ 15:10 by Josefina Baumann MD) (units unknown) (unknown) (unknown) (no date) (unknown) (unknown) Temp 98.4 F (units unknown) (unknown) (unknown) (no date) (unknown) (unknown) Temp Source Te mporal Artery Scan (units unknown) (unknown) (unknown) (no date) (unknown) (unknown) [facility] (units unknown) (unknown) (unknown) (no date) (unknown) (unknown) This note may have been all or partially generated using voice recognition (units unknown) (unknown) (unknown) (no date) (unknown) (unknown) Tobacco + Subs tance Use (units unknown) (unknown) (unknown) (no date) (unknown) (unknown) Tobacco Status (unit s unknown) (unknown) (unknown) (no date) (unknown) (unknown) Today I have r patricioiewed available medical information in the patient's medical (units unknown) (unknown) (unknown) (no date) (unknown) (unknown) Tylenol PRN (units unknown) (unknown) (unknown) (no date) (unknown) (unknown) Type(s) of exe rcise: walking (units unknown) (unknown) (unknown) (no date) (unknown) (unknown) Upper Motor Ne uron Signs: (units unknown) (unknown) (unknown) (no date) (unknown) (unknown) Visit Reasons: follow up (was in the ER) (units unknown) (unknown) (unknown) (no date) (unknown) (unknown) Vitals (units unknown) (unknown) (unknown) (no date) (unknown) (unknown) [facility] x[facility] (units unknown) (unknown) (unknown) (no date) (unknown) (unknown) Walking: walks slower due to pain (units unknown) (unknown) (unknown) (no date) (unknown) (unknown) [place] Prescription Monitoring Program (COMMERCIAL REAL ESTATE AGENT) was reviewed. (units unknown) (unknown) (unknown) (no date) (unknown) (unknown) We reviewed et iology, predisposing factor(s), natural course, imaging results as (units unknown) (unknown) (unknown) (no date) (unknown) (unknown) Weakness: denies (un its unknown) (unknown) (unknown) (no date) (unknown) (unknown) Weight 276 lb (units unknown) (unknown) (unknown) (no date) (unknown) (unknown) Roy teeth extract ed (units unknown) (unknown) (unknown) (no date) (unknown) (unknown) X-ray left verena t 02/25/2023: (units unknown) (unknown) (unknown) (no date) (unknown) (unknown) X-ray lumbar s pine 02/25/2023: (units unknown) (unknown) (unknown) (no date) (unknown) (unknown) a long-term me dication and other NSAIDs should be avoided while on meloxicam.' (units unknown) (unknown) (unknown) (no date) (unknown) (unknown) additional soc ial history: Difficulty other children. Would (units unknown) (unknown) (unknown) (no date) (unknown) (unknown) ago. She has d one 2 sessions and feels that they are a little helpful. She (units unknown) (unknown) (unknown) (no date) (unknown) (unknown) alcohol intake: form er (units unknown) (unknown) (unknown) (no date) (unknown) (unknown) and Kenalog.? Her 2nd visit was on 03/05/2023 for acute on chronic low back (units unknown) (unknown) (unknown) (no date) (unknown) (unknown) and we discuss ed taking this for up to several months.? This is not meant to be (units unknown) (unknown) (unknown) (no date) (unknown) (unknown) arthropathy an d myofascial pain.? I do not feel there is a radicular component (units unknown) (unknown) (unknown) (no date) (unknown) (unknown) back pain and a history of herniated disc in the lumbar spine.? She reports (units unknown) (unknown) (unknown) (no date) (unknown) (unknown) benefits of va rious treatment options were discussed with the patient in great (units unknown) (unknown) (unknown) (no date) (unknown) (unknown) bowel/bladder dysfunction, and perineal numbness were discussed. The patient was (units unknown) (unknown) (unknown) (no date) (unknown) (unknown) bulge at L5-S1 without central canal or neuroforaminal stenosis.? There is also (units unknown) (unknown) (unknown) (no date) (unknown) (unknown) caffeine: Yes (soft drinks in small quantities, well within 200mg limit) (units unknown) (unknown) (unknown) (no date) (unknown) (unknown) cannot tolerat e physical therapy at the current time due to the intensity of the (units unknown) (unknown) (unknown) (no date) (unknown) (unknown) carbon monox d etector in home: Yes (units unknown) (unknown) (unknown) (no date) (unknown) (unknown) changes.? Last ly, there is evidence of multilevel facet hypertrophy.? Lumbar x (units unknown) (unknown) (unknown) (no date) (unknown) (unknown) current occupa tional exposures/hazards: Yes (units unknown) (unknown) (unknown) (no date) (unknown) (unknown) daily servings fruits/ve or more times/day (units unknown) (unknown) (unknown) (no date) (unknown) (unknown) delivery. (units unknown) (unknown) (unknown) (no date) (unknown) (unknown) department. (units unknown) (unknown) (unknown) (no date) (unknown) (unknown) detail. (units unknown) (unknown) (unknown) (no date) (unknown) (unknown) do you feel sa fe at home: Yes (units unknown) (unknown) (unknown) (no date) (unknown) (unknown) double electri c breast pump 1 ea topical .prn #1 ea 11/01/22 [Rx Confirmed (units unknown) (unknown) (unknown) (no date) (unknown) (unknown) during the pas t year weight has: other (wide fluctuations since last ) (units unknown) (unknown) (unknown) (no date) (unknown) (unknown) education leve l: vocational (some college, certificate programs) (units unknown) (unknown) (unknown) (no date) (unknown) (unknown) evaluation of acute on chronic low back pain.? She reports long history of low (units unknown) (unknown) (unknown) (no date) (unknown) (unknown) evidence of degenerative disc disease at L4-5 and L5-S1 as well as Modic (units unknown) (unknown) (unknown) (no date) (unknown) (unknown) fire extinguis her in home: Yes (units unknown) (unknown) (unknown) (no date) (unknown) (unknown) firearms in ho me: Yes firearms unloaded and locked: Yes (units unknown) (unknown) (unknown) (no date) (unknown) (unknown) flaxseed Aller gy (Severe, Verified 04/06/23 09:30) (units unknown) (unknown) (unknown) (no date) (unknown) (unknown) fracture.? She had an injection of the 5th tarsal metatarsal area with Marcaine (units unknown) (unknown) (unknown) (no date) (unknown) (unknown) grade breast p ump that she can have when she goes home from hospital after (units unknown) (unknown) (unknown) (no date) (unknown) (unknown) have occurred. If there are any questions, please contact the Medical Records (units unknown) (unknown) (unknown) (no date) (unknown) (unknown) household memb ers: spouse, family ([id number] and his 3 children (moving out (units unknown) (unknown) (unknown) (no date) (unknown) (unknown) housing: house (unit s unknown) (unknown) (unknown) (no date) (unknown) (unknown) ibuprofen 800 mg PO TID 90 tabs 2RF (units unknown) (unknown) (unknown) (no date) (unknown) (unknown) ibuprofen 800 mg tablet 800 mg PO TID #90 tabs 04/06/23 [Rx Confirmed 04/06/23] (units unknown) (unknown) (unknown) (no date) (unknown) (unknown) ibuprofen (units unknown) (unknown) (unknown) (no date) (unknown) (unknown) improved sleep , improved mobility, etc. (units unknown) (unknown) (unknown) (no date) (unknown) (unknown) in PT. [] (units unknown) (unknown) (unknown) (no date) (unknown) (unknown) instructed to report to the Emergency department, if these symptoms occur. (units unknown) (unknown) (unknown) (no date) (unknown) (unknown) instructed to stop if any side effects. [] (units unknown) (unknown) (unknown) (no date) (unknown) (unknown) intravenous dr ug use, sustained glucocorticoid use, osteoporosis, or a focal (units unknown) (unknown) (unknown) (no date) (unknown) (unknown) is likely multifactorial including components of vertebrogenic, facet (units unknown) (unknown) (unknown) (no date) (unknown) (unknown) levothyroxine 137 mcg tablet 137 mcg PO DAILY #30 tabs 10/17/22 [Rx Confirmed (units unknown) (unknown) (unknown) (no date) (unknown) (unknown) lidocaine 5 % topical patch 1 patch transdermal DAILY PRN 04/06/23 [History (units unknown) (unknown) (unknown) (no date) (unknown) (unknown) lives independ ently: Yes (units unknown) (unknown) (unknown) (no date) (unknown) (unknown) local anesthet ic. During that time patient able to participate in ADLs, had (units unknown) (unknown) (unknown) (no date) (unknown) (unknown) marital status : (units unknown) (unknown) (unknown) (no date) (unknown) (unknown) may occur. Occ asional wrong-word or 'sound-alike' substitutions may have (units unknown) (unknown) (unknown) (no date) (unknown) (unknown) meds. [] (units unknown) (unknown) (unknown) (no date) (unknown) (unknown) meloxicam but stopped because it wasn't helpful. She started PT about 3 weeks (units unknown) (unknown) (unknown) (no date) (unknown) (unknown) meloxicam (units unknown) (unknown) (unknown) (no date) (unknown) (unknown) needed - given by recent ED visit (units unknown) (unknown) (unknown) (no date) (unknown) (unknown) negative, Hype ralgesia - negative (units unknown) (unknown) (unknown) (no date) (unknown) (unknown) neurological d eficit with progressive or disabling symptoms. (units unknown) (unknown) (unknown) (no date) (unknown) (unknown) number of children: 3 (units unknown) (unknown) (unknown) (no date) (unknown) (unknown) occupational s tatus: unemployed and previously employed (units unknown) (unknown) (unknown) (no date) (unknown) (unknown) occurred due t o the inherent limitations of voice recognition software. Please (units unknown) (unknown) (unknown) (no date) (unknown) (unknown) of Spinal Cord Injur y) (units unknown) (unknown) (unknown) (no date) (unknown) (unknown) or immunosuppr essive therapy, previous or current cancer diagnosis, history of (units unknown) (unknown) (unknown) (no date) (unknown) (unknown) pain. [] (units unknown) (unknown) (unknown) (no date) (unknown) (unknown) pain.? She rec eived Decadron (hot flashes) and Toradol in the emergency (units unknown) (unknown) (unknown) (no date) (unknown) (unknown) pets and anima ls: Yes (horses) (units unknown) (unknown) (unknown) (no date) (unknown) (unknown) prednisone Adv erse Reaction (Mild, Verified 04/06/23 09:30) (units unknown) (unknown) (unknown) (no date) (unknown) (unknown) prenat.vits,ca l,min-ir on-folic 1 tab PO DAILY 04/22/22 [History Confirmed (units unknown) (unknown) (unknown) (no date) (unknown) (unknown) rays had not b een performed at the time of this evaluation.? Her low back pain (units unknown) (unknown) (unknown) (no date) (unknown) (unknown) read the note carefully and recognize, using context, where these substitutions (units unknown) (unknown) (unknown) (no date) (unknown) (unknown) really like to meet w/ [facility] prior to delivery and would like Rx for hospital (units unknown) (unknown) (unknown) (no date) (unknown) (unknown) record, includ ing relevant provider notes, laboratory work, and imaging. (units unknown) (unknown) (unknown) (no date) (unknown) (unknown) scale and/or p ain interferes with ADLs. (units unknown) (unknown) (unknown) (no date) (unknown) (unknown) seatbelt use: always (units unknown) (unknown) (unknown) (no date) (unknown) (unknown) second hand ex posure: No (units unknown) (unknown) (unknown) (no date) (unknown) (unknown) software. Alth ough every effort is made to edit content, bookbinder chief errors (units unknown) (unknown) (unknown) (no date) (unknown) (unknown) sometimes does exercises at home. (units unknown) (unknown) (unknown) (no date) (unknown) (unknown) soon)) and children (units unknown) (unknown) (unknown) (no date) (unknown) (unknown) special roland needs: No (units unknown) (unknown) (unknown) (no date) (unknown) (unknown) starting physi alexey therapy and nonsteroidal medications.? Meloxicam was ordered (units unknown) (unknown) (unknown) (no date) (unknown) (unknown) substance use type: marijuana (in the past, not recently and not while ) (units unknown) (unknown) (unknown) (no date) (unknown) (unknown) the emergency department twice at [facility].? Her 1st visit (units unknown) (unknown) (unknown) (no date) (unknown) (unknown) therapeutic in jections and surgery. The risks, consequences, alternatives and (units unknown) (unknown) (unknown) (no date) (unknown) (unknown) therapy. ?A re ferral was provided for the patient. [] (units unknown) (unknown) (unknown) (no date) (unknown) (unknown) to her pain at this time.? Conservative management was encouraged including (units unknown) (unknown) (unknown) (no date) (unknown) (unknown) visit. (units unknown) (unknown) (unknown) (no date) (unknown) (unknown) was on 023 for left foot pain.? X-ray did not show any evidence of acute (units unknown) (unknown) (unknown) (no date) (unknown) (unknown) water heater t emp set < 120 deg: Yes (units unknown) (unknown) (unknown) (no date) (unknown) (unknown) well as treatm ent options including medications, physical therapy/exercise, (units unknown) (unknown) (unknown) (no date) (unknown) (unknown) well-balanced diet: daily or most days (units unknown) (unknown) (unknown) (no date) (unknown) (unknown) with future tr eatment planning. [] (units unknown) (unknown) (unknown) (no date) (unknown) (unknown) without eviden ce of ataxia. Lower quarter stability intact. (units unknown) (unknown) (unknown) (no date) (unknown) (unknown) working smoke detector in home: Yes (units unknown) (unknown) (unknown) (no date) (unknown) (unknown) worse. She not ed that the medications from the ED were helpful. She was on (units unknown) (unknown) (unknown) (no date) (unknown) (unknown) worsening of h er pain status post epidural blood patch.? MRI showed slight disc (units unknown) (unknown) Result panel 21 (unknown) (no date) (unknown) (unknown) (no value) (units unknown) (unknown) (unknown) (no date) (unknown) (unknown) (0=absent, 1=s light response, 2=brisk/normal, 3=very brisk, 4=clonus) (units unknown) (unknown) (unknown) (no date) (unknown) (unknown) (1) Low back pain: ( units unknown) (unknown) (unknown) (no date) (unknown) (unknown) (segments are from the International Standards for Neurological Classification (units unknown) (unknown) (unknown) (no date) (unknown) (unknown) - Activity: Co ntinue activity as tolerated. (units unknown) (unknown) (unknown) (no date) (unknown) (unknown) - Education: C auda equina and associated symptoms, including motor weakness, (units unknown) (unknown) (unknown) (no date) (unknown) (unknown) - FADIR: Negat katelyn bilaterally (units unknown) (unknown) (unknown) (no date) (unknown) (unknown) - Follow-up: 1 -2 months (units unknown) (unknown) (unknown) (no date) (unknown) (unknown) - Hip ROM is: Within normal limits (units unknown) (unknown) (unknown) (no date) (unknown) (unknown) - I discussed risks, benefits and side effects. Additionally, patient was (units unknown) (unknown) (unknown) (no date) (unknown) (unknown) - Imaging: No new imaging indicated at this time. (units unknown) (unknown) (unknown) (no date) (unknown) (unknown) - Interventional/Surgica l procedures: None indicated at this time. (units unknown) (unknown) (unknown) (no date) (unknown) (unknown) - Lumbar facet loading: Positive bilaterally (units unknown) (unknown) (unknown) (no date) (unknown) (unknown) - Medications: Prescriptions Written: Ibuprofen 800 mg t.i.d. (units unknown) (unknown) (unknown) (no date) (unknown) (unknown) - Physical therapy/modalities/DME : Continue current physical therapy. (units unknown) (unknown) (unknown) (no date) (unknown) (unknown) - Referrals: N one indicated at this time. (units unknown) (unknown) (unknown) (no date) (unknown) (unknown) - SIJ provocat ion testing: Negative bilaterally (units unknown) (unknown) (unknown) (no date) (unknown) (unknown) - Straight Leg Raise: Negative bilaterally (units unknown) (unknown) (unknown) (no date) (unknown) (unknown) 04/06/23 1107 (units unknown) (unknown) (unknown) (no date) (unknown) (unknown) 04/06/23 (units unknown) (unknown) (unknown) (no date) (unknown) (unknown) 04/06/23] (units unknown) (unknown) (unknown) (no date) (unknown) (unknown) 09:29 (units unknown) (unknown) (unknown) (no date) (unknown) (unknown) 1. Multilevel facet hypertrophy, relatively mild. (units unknown) (unknown) (unknown) (no date) (unknown) (unknown) 2. No canal st enosis or foraminal stenosis. (units unknown) (unknown) (unknown) (no date) (unknown) (unknown) 3. A mild righ t paracentral disc protrusion is noted at L5-S1 without nerve root (units unknown) (unknown) (unknown) (no date) (unknown) (unknown) : [id number] (units unknown) (unknown) (unknown) (no date) (unknown) (unknown) ? Denies? (units unknown) (unknown) (unknown) (no date) (unknown) (unknown) ? Inspection - ? No gross appendicular or axial deformities (units unknown) (unknown) (unknown) (no date) (unknown) (unknown) ? Palpation -tenderness to palpation midline low back (units unknown) (unknown) (unknown) (no date) (unknown) (unknown) ? ROM -lumbar extension limited due to pain (units unknown) (unknown) (unknown) (no date) (unknown) (unknown) ? Special tests (uni ts unknown) (unknown) (unknown) (no date) (unknown) (unknown) ? Acetaminophen - doesn't help (units unknown) (unknown) (unknown) (no date) (unknown) (unknown) ? Antidepressants - celexa - no longer taking (units unknown) (unknown) (unknown) (no date) (unknown) (unknown) ? Antiepileptics - denies (units unknown) (unknown) (unknown) (no date) (unknown) (unknown) ? Mu scle Relaxants - denies (units unknown) (unknown) (unknown) (no date) (unknown) (unknown) ? NS AIDs - naproxen, ibuprofen (units unknown) (unknown) (unknown) (no date) (unknown) (unknown) ? Op ioids - Hydrocodone-acetaminop hen 5-325 mg 1 tab q.6 hours as (units unknown) (unknown) (unknown) (no date) (unknown) (unknown) ? St eroids - denies (units unknown) (unknown) (unknown) (no date) (unknown) (unknown) ? To picals - lidoderm (units unknown) (unknown) (unknown) (no date) (unknown) (unknown) ADHD (units unknown) (unknown) (unknown) (no date) (unknown) (unknown) Accompanied by : Self / Same As Patient (units unknown) (unknown) (unknown) (no date) (unknown) (unknown) Additional Soc ial History (units unknown) (unknown) (unknown) (no date) (unknown) (unknown) Age/Sex: 32 / F Date of Service: (units unknown) (unknown) (unknown) (no date) (unknown) (unknown) Aggravating fa ctors include: sitting, chores that require bending (units unknown) (unknown) (unknown) (no date) (unknown) (unknown) Alcoholism (units unknown) (unknown) (unknown) (no date) (unknown) (unknown) All other syst ems reviewed and are unremarkable except as noted in HPI. (units unknown) (unknown) (unknown) (no date) (unknown) (unknown) Allergies (units unknown) (unknown) (unknown) (no date) (unknown) (unknown) [place] [address] (units unknown) (unknown) (unknown) (no date) (unknown) (unknown) Anaphylaxis (units unknown) (unknown) (unknown) (no date) (unknown) (unknown) Anesthesia (units unknown) (unknown) (unknown) (no date) (unknown) (unknown) Assessment + Plan (u nits unknown) (unknown) (unknown) (no date) (unknown) (unknown) Assessment: (units unknown) (unknown) (unknown) (no date) (unknown) (unknown) Attending Dr: Celio Tejada MD (units unknown) (unknown) (unknown) (no date) (unknown) (unknown) BMI 45.9 (units unknown) (unknown) (unknown) (no date) (unknown) (unknown) BP 106/74 (units unknown) (unknown) (unknown) (no date) (unknown) (unknown) Babinski's Abby ngoing Downgoing (units unknown) (unknown) (unknown) (no date) (unknown) (unknown) Blood Pressure Location Rt radial (units unknown) (unknown) (unknown) (no date) (unknown) (unknown) Bowel and blad yan: No loss of control (units unknown) (unknown) (unknown) (no date) (unknown) (unknown) Carpal tunnel syndrome (-2018) (units unknown) (unknown) (unknown) (no date) (unknown) (unknown) Chart review: (units unknown) (unknown) (unknown) (no date) (unknown) (unknown) Chief Complaint (uni ts unknown) (unknown) (unknown) (no date) (unknown) (unknown) Chief Complain t: Follow-up (units unknown) (unknown) (unknown) (no date) (unknown) (unknown) Chronicity: ac [place] Back pain laterality: bilateral Sciatica presence: (units unknown) (unknown) (unknown) (no date) (unknown) (unknown) Clonus None None (un its unknown) (unknown) (unknown) (no date) (unknown) (unknown) Confirmed 04/06/23] (units unknown) (unknown) (unknown) (no date) (unknown) (unknown) Current VAS: 3/10 (u nits unknown) (unknown) (unknown) (no date) (unknown) (unknown) Current pain treatments include: (units unknown) (unknown) (unknown) (no date) (unknown) (unknown) : 9 Acct:[id number] (units unknown) (unknown) (unknown) (no date) (unknown) (unknown) 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 (units unknown) (unknown) (unknown) (no date) (unknown) (unknown) Details: (units unknown) (unknown) (unknown) (no date) (unknown) (unknown) Diet and Exercise (u nits unknown) (unknown) (unknown) (no date) (unknown) (unknown) Discontinued R gaye: Provider's Order 7.5 mg PO DAILY 30 tabs 2RF (units unknown) (unknown) (unknown) (no date) (unknown) (unknown) Discontinued R gaye: Provider's Order 800 mg PO Q8H (units unknown) (unknown) (unknown) (no date) (unknown) (unknown) Discontinued (units unknown) (unknown) (unknown) (no date) (unknown) (unknown) Documented By: Celio Tejada MD 04/06/23 1101 (units unknown) (unknown) (unknown) (no date) (unknown) (unknown) Exam Narrative (unit s unknown) (unknown) (unknown) (no date) (unknown) (unknown) Exam Narrative: (uni ts unknown) (unknown) (unknown) (no date) (unknown) (unknown) Exam (units unknown) (unknown) (unknown) (no date) (unknown) (unknown) FOLLOW UP BACK PAIN, PAIN SEEMS TO BE GETTING WORSE (units unknown) (unknown) (unknown) (no date) (unknown) (unknown) Family History (Updated 06/08/22 @ 21:23 by Aurora Arevalo) (units unknown) (unknown) (unknown) (no date) (unknown) (unknown) Father Diabete s mellitus (units unknown) (unknown) (unknown) (no date) (unknown) (unknown) Foot pain () (u nits unknown) (unknown) (unknown) (no date) (unknown) (unknown) Gait/Station - Non-antalgic gait. Heel/toe walking intact. Tandem gait normal (units unknown) (unknown) (unknown) (no date) (unknown) (unknown) General: Well-nourished, well-developed, female in no acute distress (units unknown) (unknown) (unknown) (no date) (unknown) (unknown) HPI (units unknown) (unknown) (unknown) (no date) (unknown) (unknown) Heavy menstrua l period () (units unknown) (unknown) (unknown) (no date) (unknown) (unknown) Height 5 ft 5 in (un its unknown) (unknown) (unknown) (no date) (unknown) (unknown) History of polyhydramnios (units unknown) (unknown) (unknown) (no date) (unknown) (unknown) History of surgery ( units unknown) (unknown) (unknown) (no date) (unknown) (unknown) Hot Flashes (units unknown) (unknown) (unknown) (no date) (unknown) (unknown) Ibuprofen 800 mg PRN - usually takes in the am (units unknown) (unknown) (unknown) (no date) (unknown) (unknown) Intake Clinical Staf f (units unknown) (unknown) (unknown) (no date) (unknown) (unknown) Intake Note: (units unknown) (unknown) (unknown) (no date) (unknown) (unknown) Intake perform ed by: Shell Poritllo (units unknown) (unknown) (unknown) (no date) (unknown) (unknown) Intake (units unknown) (unknown) (unknown) (no date) (unknown) (unknown) Interval History: (u nits unknown) (unknown) (unknown) (no date) (unknown) (unknown) Intervention:?Date:?Outcome:?? ? (units unknown) (unknown) (unknown) (no date) (unknown) (unknown) Is patient in pain?: Yes (units unknown) (unknown) (unknown) (no date) (unknown) (unknown) L2 Hip Flexion 5/5 5/5? (units unknown) (unknown) (unknown) (no date) (unknown) (unknown) L3 Knee Extens ion /5 5/5 (units unknown) (unknown) (unknown) (no date) (unknown) (unknown) L3-4 Patella 2+ 2 (u nits unknown) (unknown) (unknown) (no date) (unknown) (unknown) L4 Ankle Dorsi flexion /5 5/5 (units unknown) (unknown) (unknown) (no date) (unknown) (unknown) L5 Long Toe Ex tension /03 24/ (units unknown) (unknown) (unknown) (no date) (unknown) (unknown) LS XR 02/25/23 (unit s unknown) (unknown) (unknown) (no date) (unknown) (unknown) Hardy is presen ting for follow-up. Since our last visit she was evaluated in the (units unknown) (unknown) (unknown) (no date) (unknown) (unknown) Lidocaine patch 5% P RN (units unknown) (unknown) (unknown) (no date) (unknown) (unknown) Loc: PAIN (units unknown) (unknown) (unknown) (no date) (unknown) (unknown) Low back pain (units unknown) (unknown) (unknown) (no date) (unknown) (unknown) MRI lumbar spi ne 01/13/23: (units unknown) (unknown) (unknown) (no date) (unknown) (unknown) MSK: System re viewed and no additional complaints, except as documented. (units unknown) (unknown) (unknown) (no date) (unknown) (unknown) Medical Histor y (Updated 02/07/23 @ 10:11 by Celio Tejada MD) (units unknown) (unknown) (unknown) (no date) (unknown) (unknown) Medications (units unknown) (unknown) (unknown) (no date) (unknown) (unknown) Medications: (units unknown) (unknown) (unknown) (no date) (unknown) (unknown) Mental health proble m (units unknown) (unknown) (unknown) (no date) (unknown) (unknown) Mild degenerat katelyn changes of L4-5 and L5-S1. (units unknown) (unknown) (unknown) (no date) (unknown) (unknown) Mother Depression (u nits unknown) (unknown) (unknown) (no date) (unknown) (unknown) Motor (units unknown) (unknown) (unknown) (no date) (unknown) (unknown) Musculoskeletal: (un its unknown) (unknown) (unknown) (no date) (unknown) (unknown) Nearsightedness (uni ts unknown) (unknown) (unknown) (no date) (unknown) (unknown) Neuro: System reviewed and no additional complaints, except as documented. (units unknown) (unknown) (unknown) (no date) (unknown) (unknown) Neurologic: (units unknown) (unknown) (unknown) (no date) (unknown) (unknown) New (units unknown) (unknown) (unknown) (no date) (unknown) (unknown) No evidence of acute bony abnormality of the left foot. (units unknown) (unknown) (unknown) (no date) (unknown) (unknown) Numbness/Tingl ing: occasional tingling of the posterior left thigh (units unknown) (unknown) (unknown) (no date) (unknown) (unknown) Objective Data (unit s unknown) (unknown) (unknown) (no date) (unknown) (unknown) Objective Data: (uni ts unknown) (unknown) (unknown) (no date) (unknown) (unknown) Onset/Context of linh n: (units unknown) (unknown) (unknown) (no date) (unknown) (unknown) Onset: chronic , worsened after EBP (units unknown) (unknown) (unknown) (no date) (unknown) (unknown) Other: denies (units unknown) (unknown) (unknown) (no date) (unknown) (unknown) Oxygen Deliver y Method room air (units unknown) (unknown) (unknown) (no date) (unknown) (unknown) PFSH (units unknown) (unknown) (unknown) (no date) (unknown) (unknown) PT: PT schedul ed out for March 2023 at [facility] (units unknown) (unknown) (unknown) (no date) (unknown) (unknown) PTSD (post-tra umatic stress disorder) (-1999) (units unknown) (unknown) (unknown) (no date) (unknown) (unknown) Pain Scale (units unknown) (unknown) (unknown) (no date) (unknown) (unknown) Pain Visit (units unknown) (unknown) (unknown) (no date) (unknown) (unknown) Pain location/Radiation: Across the low back L=R, denies radiation to the legs (units unknown) (unknown) (unknown) (no date) (unknown) (unknown) Pain ratin /10 today, 9/10 at worst (units unknown) (unknown) (unknown) (no date) (unknown) (unknown) Painful menstr ual periods (-2019) (units unknown) (unknown) (unknown) (no date) (unknown) (unknown) Past medical, surgical, social, and family history is unchanged from prior (units unknown) (unknown) (unknown) (no date) (unknown) (unknown) Patient was neal mohan seen here on 02/07/2023.? Since this time she has been seen in (units unknown) (unknown) (unknown) (no date) (unknown) (unknown) Patient: Hardy Cruz MR# (units unknown) (unknown) (unknown) (no date) (unknown) (unknown) Plan (units unknown) (unknown) (unknown) (no date) (unknown) (unknown) Plan/Recommendations : (units unknown) (unknown) (unknown) (no date) (unknown) (unknown) Polyhydramnios (unit s unknown) (unknown) (unknown) (no date) (unknown) (unknown) Position Sitting (un its unknown) (unknown) (unknown) (no date) (unknown) (unknown) depressio n (units unknown) (unknown) (unknown) (no date) (unknown) (unknown) Previous Visit Assessment: Feliciano is a 32-year-old female presenting for further (units unknown) (unknown) (unknown) (no date) (unknown) (unknown) Previous gladys joseph section (units unknown) (unknown) (unknown) (no date) (unknown) (unknown) Previous pain treatments included: (units unknown) (unknown) (unknown) (no date) (unknown) (unknown) Psych: Appropr iate affect, answers questions appropriately (units unknown) (unknown) (unknown) (no date) (unknown) (unknown) Pulse 83 (units unknown) (unknown) (unknown) (no date) (unknown) (unknown) Pulse Oximetry (%) 9 9 (units unknown) (unknown) (unknown) (no date) (unknown) (unknown) Pulse Source Monitor (units unknown) (unknown) (unknown) (no date) (unknown) (unknown) Qualifiers: (units unknown) (unknown) (unknown) (no date) (unknown) (unknown) Quality and ti carly of pain: constant, deep, dull (units unknown) (unknown) (unknown) (no date) (unknown) (unknown) ROS Narrative (units unknown) (unknown) (unknown) (no date) (unknown) (unknown) ROS Narrative: (unit s unknown) (unknown) (unknown) (no date) (unknown) (unknown) ROS (units unknown) (unknown) (unknown) (no date) (unknown) (unknown) Reason For Visit (un its unknown) (unknown) (unknown) (no date) (unknown) (unknown) Red flag symptoms: ( units unknown) (unknown) (unknown) (no date) (unknown) (unknown) Reflex Right Left (u nits unknown) (unknown) (unknown) (no date) (unknown) (unknown) Reflexes: (units unknown) (unknown) (unknown) (no date) (unknown) (unknown) Relieving fact ors include: lying down (units unknown) (unknown) (unknown) (no date) (unknown) (unknown) Respiratory: Non-labored breathing pattern on RA. No respiratory distress (units unknown) (unknown) (unknown) (no date) (unknown) (unknown) Restless leg syndrom e (units unknown) (unknown) (unknown) (no date) (unknown) (unknown) S1 Ankle Plantarflexion 5/5 5/5 (units unknown) (unknown) (unknown) (no date) (unknown) (unknown) S1-2 Achilles 2+ 2 ( units unknown) (unknown) (unknown) (no date) (unknown) (unknown) Saddle anesthe carlos: denies (units unknown) (unknown) (unknown) (no date) (unknown) (unknown) Safety (units unknown) (unknown) (unknown) (no date) (unknown) (unknown) Segment Action Right Left (units unknown) (unknown) (unknown) (no date) (unknown) (unknown) Segment Reflex Right Left (units unknown) (unknown) (unknown) (no date) (unknown) (unknown) Sensory -? Int act to light touch of bilateral lower extremities. Allodynia (units unknown) (unknown) (unknown) (no date) (unknown) (unknown) She notes that her pain feels more intense and the region of pain is getting (units unknown) (unknown) (unknown) (no date) (unknown) (unknown) Signed By: <Electronically signed by Celio Tejada MD> (units unknown) (unknown) (unknown) (no date) (unknown) (unknown) Signed (units unknown) (unknown) (unknown) (no date) (unknown) (unknown) Skin: No appre ciable rashes or skin breakdown (units unknown) (unknown) (unknown) (no date) (unknown) (unknown) Smoking Status : Former smoker (units unknown) (unknown) (unknown) (no date) (unknown) (unknown) Social History (unit s unknown) (unknown) (unknown) (no date) (unknown) (unknown) Son Hearing loss (un its unknown) (unknown) (unknown) (no date) (unknown) (unknown) Standing: limi hanny due to pain (units unknown) (unknown) (unknown) (no date) (unknown) (unknown) Status: Acute (units unknown) (unknown) (unknown) (no date) (unknown) (unknown) Surgery: denies (uni ts unknown) (unknown) (unknown) (no date) (unknown) (unknown) Surgical Histo ry (Updated 07/12/22 @ 15:10 by Josefina Baumann MD) (units unknown) (unknown) (unknown) (no date) (unknown) (unknown) Temp 98.4 F (units unknown) (unknown) (unknown) (no date) (unknown) (unknown) Temp Source Te mporal Artery Scan (units unknown) (unknown) (unknown) (no date) (unknown) (unknown) [facility] (units unknown) (unknown) (unknown) (no date) (unknown) (unknown) This note may have been all or partially generated using voice recognition (units unknown) (unknown) (unknown) (no date) (unknown) (unknown) Tobacco + Subs tance Use (units unknown) (unknown) (unknown) (no date) (unknown) (unknown) Tobacco Status (unit s unknown) (unknown) (unknown) (no date) (unknown) (unknown) Today I have matt johnsond available medical information in the patient's medical (units unknown) (unknown) (unknown) (no date) (unknown) (unknown) Tylenol PRN (units unknown) (unknown) (unknown) (no date) (unknown) (unknown) Type(s) of exe rcise: walking (units unknown) (unknown) (unknown) (no date) (unknown) (unknown) Upper Motor Ne uron Signs: (units unknown) (unknown) (unknown) (no date) (unknown) (unknown) Visit Reasons: follow up (was in the ER) (units unknown) (unknown) (unknown) (no date) (unknown) (unknown) Vitals (units unknown) (unknown) (unknown) (no date) (unknown) (unknown) [facility] x[facility] (units unknown) (unknown) (unknown) (no date) (unknown) (unknown) Walking: walks slower due to pain (units unknown) (unknown) (unknown) (no date) (unknown) (unknown) [place] Prescription Monitoring Program (COMMERCIAL REAL ESTATE AGENT) was reviewed. (units unknown) (unknown) (unknown) (no date) (unknown) (unknown) We reviewed et iology, predisposing factor(s), natural course, imaging results as (units unknown) (unknown) (unknown) (no date) (unknown) (unknown) Weakness: denies (un its unknown) (unknown) (unknown) (no date) (unknown) (unknown) Weight 276 lb (units unknown) (unknown) (unknown) (no date) (unknown) (unknown) Roy teeth extract ed (units unknown) (unknown) (unknown) (no date) (unknown) (unknown) X-ray left verena t 02/25/2023: (units unknown) (unknown) (unknown) (no date) (unknown) (unknown) X-ray lumbar s pine 02/25/2023: (units unknown) (unknown) (unknown) (no date) (unknown) (unknown) a long-term me dication and other NSAIDs should be avoided while on meloxicam.' (units unknown) (unknown) (unknown) (no date) (unknown) (unknown) additional soc ial history: Difficulty other children. Would (units unknown) (unknown) (unknown) (no date) (unknown) (unknown) ago. She has d one 2 sessions and feels that they are a little helpful. She (units unknown) (unknown) (unknown) (no date) (unknown) (unknown) alcohol intake: form er (units unknown) (unknown) (unknown) (no date) (unknown) (unknown) also discussed medication management including ibuprofen 800 mg t.i.d. in (units unknown) (unknown) (unknown) (no date) (unknown) (unknown) and Kenalog.? Her 2nd visit was on 03/05/2023 for acute on chronic low back (units unknown) (unknown) (unknown) (no date) (unknown) (unknown) and we discuss ed taking this for up to several months.? This is not meant to be (units unknown) (unknown) (unknown) (no date) (unknown) (unknown) arthropathy an d myofascial pain.? I do not feel there is a radicular component (units unknown) (unknown) (unknown) (no date) (unknown) (unknown) back pain and a history of herniated disc in the lumbar spine.? She reports (units unknown) (unknown) (unknown) (no date) (unknown) (unknown) benefits of va rious treatment options were discussed with the patient in great (units unknown) (unknown) (unknown) (no date) (unknown) (unknown) bowel/bladder dysfunction, and perineal numbness were discussed. The patient was (units unknown) (unknown) (unknown) (no date) (unknown) (unknown) bulge at L5-S1 without central canal or neuroforaminal stenosis.? There is also (units unknown) (unknown) (unknown) (no date) (unknown) (unknown) caffeine: Yes (soft drinks in small quantities, well within 200mg limit) (units unknown) (unknown) (unknown) (no date) (unknown) (unknown) carbon monox d etector in home: Yes (units unknown) (unknown) (unknown) (no date) (unknown) (unknown) changes.? Last ly, there is evidence of multilevel facet hypertrophy.? Lumbar x (units unknown) (unknown) (unknown) (no date) (unknown) (unknown) combination wi th Tylenol 1000 mg t.i.d.. I recommended taking these on a (units unknown) (unknown) (unknown) (no date) (unknown) (unknown) consistent wit h medications that have been prescribed. Today we discussed (units unknown) (unknown) (unknown) (no date) (unknown) (unknown) continuing wit h physical therapy as she is only had 2 visits at this point. We (units unknown) (unknown) (unknown) (no date) (unknown) (unknown) current occupa tional exposures/hazards: Yes (units unknown) (unknown) (unknown) (no date) (unknown) (unknown) daily servings fruits/ve or more times/day (units unknown) (unknown) (unknown) (no date) (unknown) (unknown) delivery. (units unknown) (unknown) (unknown) (no date) (unknown) (unknown) department. (units unknown) (unknown) (unknown) (no date) (unknown) (unknown) detail. (units unknown) (unknown) (unknown) (no date) (unknown) (unknown) discogenic. Th ere is evidence of disc bulge at L5-S1 as well as Modic changes (units unknown) (unknown) (unknown) (no date) (unknown) (unknown) do you feel sa fe at home: Yes (units unknown) (unknown) (unknown) (no date) (unknown) (unknown) double electri c breast pump 1 ea topical .prn #1 ea 11/01/22 [Rx Confirmed (units unknown) (unknown) (unknown) (no date) (unknown) (unknown) during the pas t year weight has: other (wide fluctuations since last ) (units unknown) (unknown) (unknown) (no date) (unknown) (unknown) education leve l: vocational (some college, certificate programs) (units unknown) (unknown) (unknown) (no date) (unknown) (unknown) emergency depa rtment for low back pain without radiation. It is not been (units unknown) (unknown) (unknown) (no date) (unknown) (unknown) evaluation of acute on chronic low back pain.? She reports long history of low (units unknown) (unknown) (unknown) (no date) (unknown) (unknown) evidence of degenerative disc disease at L4-5 and L5-S1 as well as Modic (units unknown) (unknown) (unknown) (no date) (unknown) (unknown) fire extinguis her in home: Yes (units unknown) (unknown) (unknown) (no date) (unknown) (unknown) firearms in ho me: Yes firearms unloaded and locked: Yes (units unknown) (unknown) (unknown) (no date) (unknown) (unknown) flaxseed Aller gy (Severe, Verified 04/06/23 09:30) (units unknown) (unknown) (unknown) (no date) (unknown) (unknown) fracture.? She had an injection of the 5th tarsal metatarsal area with Marcaine (units unknown) (unknown) (unknown) (no date) (unknown) (unknown) grade breast p ump that she can have when she goes home from hospital after (units unknown) (unknown) (unknown) (no date) (unknown) (unknown) have occurred. If there are any questions, please contact the Medical Records (units unknown) (unknown) (unknown) (no date) (unknown) (unknown) herapeutic inj ections and surgery. The risks, consequences, alternatives and (units unknown) (unknown) (unknown) (no date) (unknown) (unknown) household memb ers: spouse, family ([id number]-yl-cab and his 3 children (moving out (units unknown) (unknown) (unknown) (no date) (unknown) (unknown) housing: house (unit s unknown) (unknown) (unknown) (no date) (unknown) (unknown) ibuprofen 800 mg PO TID 90 tabs 2RF (units unknown) (unknown) (unknown) (no date) (unknown) (unknown) ibuprofen 800 mg tablet 800 mg PO TID #90 tabs 04/06/23 [Rx Confirmed 04/06/23] (units unknown) (unknown) (unknown) (no date) (unknown) (unknown) ibuprofen (units unknown) (unknown) (unknown) (no date) (unknown) (unknown) impingement. I t is of uncertain clinical significance. (units unknown) (unknown) (unknown) (no date) (unknown) (unknown) instructed to report to the Emergency department, if these symptoms occur. (units unknown) (unknown) (unknown) (no date) (unknown) (unknown) instructed to stop if any side effects. (units unknown) (unknown) (unknown) (no date) (unknown) (unknown) intravenous dr ug use, sustained glucocorticoid use, osteoporosis, or a focal (units unknown) (unknown) (unknown) (no date) (unknown) (unknown) is likely multifactorial including components of vertebrogenic, facet (units unknown) (unknown) (unknown) (no date) (unknown) (unknown) levothyroxine 137 mcg tablet 137 mcg PO DAILY #30 tabs 10/17/22 [Rx Confirmed (units unknown) (unknown) (unknown) (no date) (unknown) (unknown) lidocaine 5 % topical patch 1 patch transdermal DAILY PRN 04/06/23 [History (units unknown) (unknown) (unknown) (no date) (unknown) (unknown) lives independ ently: Yes (units unknown) (unknown) (unknown) (no date) (unknown) (unknown) marital status : (units unknown) (unknown) (unknown) (no date) (unknown) (unknown) may occur. Occ asional wrong-word or 'sound-alike' substitutions may have (units unknown) (unknown) (unknown) (no date) (unknown) (unknown) meloxicam but stopped because it wasn't helpful. She started PT about 3 weeks (units unknown) (unknown) (unknown) (no date) (unknown) (unknown) meloxicam (units unknown) (unknown) (unknown) (no date) (unknown) (unknown) needed - given by recent ED visit (units unknown) (unknown) (unknown) (no date) (unknown) (unknown) negative, Hype ralgesia - negative (units unknown) (unknown) (unknown) (no date) (unknown) (unknown) neurological d eficit with progressive or disabling symptoms. (units unknown) (unknown) (unknown) (no date) (unknown) (unknown) number of children: 3 (units unknown) (unknown) (unknown) (no date) (unknown) (unknown) occupational s tatus: unemployed and previously employed (units unknown) (unknown) (unknown) (no date) (unknown) (unknown) occurred due t o the inherent limitations of voice recognition software. Please (units unknown) (unknown) (unknown) (no date) (unknown) (unknown) of Spinal Cord Injur y) (units unknown) (unknown) (unknown) (no date) (unknown) (unknown) on MRI. These will likely improve over time with physical therapy. There is (units unknown) (unknown) (unknown) (no date) (unknown) (unknown) or immunosuppr essive therapy, previous or current cancer diagnosis, history of (units unknown) (unknown) (unknown) (no date) (unknown) (unknown) pain.? She rec eived Decadron (hot flashes) and Toradol in the emergency (units unknown) (unknown) (unknown) (no date) (unknown) (unknown) pets and anima ls: Yes (horses) (units unknown) (unknown) (unknown) (no date) (unknown) (unknown) potential targ ets in the future. (units unknown) (unknown) (unknown) (no date) (unknown) (unknown) prednisone Adv erse Reaction (Mild, Verified 04/06/23 09:30) (units unknown) (unknown) (unknown) (no date) (unknown) (unknown) prenat.vits,ca l,min-ir on-folic 1 tab PO DAILY 04/22/22 [History Confirmed (units unknown) (unknown) (unknown) (no date) (unknown) (unknown) rays had not b een performed at the time of this evaluation.? Her low back pain (units unknown) (unknown) (unknown) (no date) (unknown) (unknown) read the note carefully and recognize, using context, where these substitutions (units unknown) (unknown) (unknown) (no date) (unknown) (unknown) really like to meet w/ [facility] prior to delivery and would like Rx for hospital (units unknown) (unknown) (unknown) (no date) (unknown) (unknown) record, includ ing relevant provider notes, laboratory work, and imaging. (units unknown) (unknown) (unknown) (no date) (unknown) (unknown) scheduled basi s rather than as needed. Her pain is likely vertebrogenic versus (units unknown) (unknown) (unknown) (no date) (unknown) (unknown) seatbelt use: always (units unknown) (unknown) (unknown) (no date) (unknown) (unknown) second hand ex posure: No (units unknown) (unknown) (unknown) (no date) (unknown) (unknown) software. Alth ough every effort is made to edit content, bookbinder chief errors (units unknown) (unknown) (unknown) (no date) (unknown) (unknown) some evidence of mild facet arthropathy on x-ray and MRI. These may be (units unknown) (unknown) (unknown) (no date) (unknown) (unknown) sometimes does exercises at home. (units unknown) (unknown) (unknown) (no date) (unknown) (unknown) soon)) and children (units unknown) (unknown) (unknown) (no date) (unknown) (unknown) special roland needs: No (units unknown) (unknown) (unknown) (no date) (unknown) (unknown) starting physi alexey therapy and nonsteroidal medications.? Meloxicam was ordered (units unknown) (unknown) (unknown) (no date) (unknown) (unknown) substance use type: marijuana (in the past, not recently and not while ) (units unknown) (unknown) (unknown) (no date) (unknown) (unknown) the emergency department twice at [facility].? Her 1st visit (units unknown) (unknown) (unknown) (no date) (unknown) (unknown) to her pain at this time.? Conservative management was encouraged including (units unknown) (unknown) (unknown) (no date) (unknown) (unknown) visit. (units unknown) (unknown) (unknown) (no date) (unknown) (unknown) was on 023 for left foot pain.? X-ray did not show any evidence of acute (units unknown) (unknown) (unknown) (no date) (unknown) (unknown) water heater t emp set < 120 deg: Yes (units unknown) (unknown) (unknown) (no date) (unknown) (unknown) well as treatm ent options including medications, physical therapy/exercise, t (units unknown) (unknown) (unknown) (no date) (unknown) (unknown) well-balanced diet: daily or most days (units unknown) (unknown) (unknown) (no date) (unknown) (unknown) without eviden ce of ataxia. Lower quarter stability intact. (units unknown) (unknown) (unknown) (no date) (unknown) (unknown) without sciati ca Qualified Code(s): M54.50 - Low back pain, unspecified (units unknown) (unknown) (unknown) (no date) (unknown) (unknown) working smoke detector in home: Yes (units unknown) (unknown) (unknown) (no date) (unknown) (unknown) worse. She not ed that the medications from the ED were helpful. She was on (units unknown) (unknown) (unknown) (no date) (unknown) (unknown) worsening of h er pain status post epidural blood patch.? MRI showed slight disc (units unknown) (unknown) Result panel 22 (unknown) (no date) (unknown) (unknown) (no value) (units unknown) (unknown) (unknown) (no date) (unknown) (unknown) 04/24/23 (units unknown) (unknown) (unknown) (no date) (unknown) (unknown) : [id number] (units unknown) (unknown) (unknown) (no date) (unknown) (unknown) ADHD (units unknown) (unknown) (unknown) (no date) (unknown) (unknown) Additional Soc ial History (units unknown) (unknown) (unknown) (no date) (unknown) (unknown) Age/Sex: 32 / F Date of Service: (units unknown) (unknown) (unknown) (no date) (unknown) (unknown) Alcoholism (units unknown) (unknown) (unknown) (no date) (unknown) (unknown) Allergies (units unknown) (unknown) (unknown) (no date) (unknown) (unknown) [place] [id number] (units unknown) (unknown) (unknown) (no date) (unknown) (unknown) Anaphylaxis (units unknown) (unknown) (unknown) (no date) (unknown) (unknown) Anesthesia (units unknown) (unknown) (unknown) (no date) (unknown) (unknown) Attending Dr: Josefina Baumann MD (units unknown) (unknown) (unknown) (no date) (unknown) (unknown) Carpal tunnel syndrome (-2017) (units unknown) (unknown) (unknown) (no date) (unknown) (unknown) : 9 Acct:[id number] (units unknown) (unknown) (unknown) (no date) (unknown) (unknown) 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 (units unknown) (unknown) (unknown) (no date) (unknown) (unknown) Diet and Exercise (u nits unknown) (unknown) (unknown) (no date) (unknown) (unknown) Documented By: Josefina Baumann MD 04/24/23 1345 (units unknown) (unknown) (unknown) (no date) (unknown) (unknown) Draft (units unknown) (unknown) (unknown) (no date) (unknown) (unknown) Family History (Updated 06/08/22 @ 21:23 by Aurora Arevalo) (units unknown) (unknown) (unknown) (no date) (unknown) (unknown) Father Diabete s mellitus (units unknown) (unknown) (unknown) (no date) (unknown) (unknown) [facility] (units unknown) (unknown) (unknown) (no date) (unknown) (unknown) Foot pain () (u nits unknown) (unknown) (unknown) (no date) (unknown) (unknown) Gynecology Visit (un its unknown) (unknown) (unknown) (no date) (unknown) (unknown) Heavy menstrua l period () (units unknown) (unknown) (unknown) (no date) (unknown) (unknown) History of polyhydramnios (units unknown) (unknown) (unknown) (no date) (unknown) (unknown) History of surgery ( units unknown) (unknown) (unknown) (no date) (unknown) (unknown) Hot Flashes (units unknown) (unknown) (unknown) (no date) (unknown) (unknown) Intake Note: (units unknown) (unknown) (unknown) (no date) (unknown) (unknown) Intake perform ed by: Gi Culp (units unknown) (unknown) (unknown) (no date) (unknown) (unknown) Intake (units unknown) (unknown) (unknown) (no date) (unknown) (unknown) Intake- Clincial Sta ff (units unknown) (unknown) (unknown) (no date) (unknown) (unknown) Loc: [facility] (units unknown) (unknown) (unknown) (no date) (unknown) (unknown) Low back pain (units unknown) (unknown) (unknown) (no date) (unknown) (unknown) Medical Histor y (Updated 02/07/23 @ 10:11 by Celio Tejada MD) (units unknown) (unknown) (unknown) (no date) (unknown) (unknown) Mental health proble m (units unknown) (unknown) (unknown) (no date) (unknown) (unknown) Mother Depression (u nits unknown) (unknown) (unknown) (no date) (unknown) (unknown) Nearsightedness (uni ts unknown) (unknown) (unknown) (no date) (unknown) (unknown) PFSH (units unknown) (unknown) (unknown) (no date) (unknown) (unknown) PTSD (post-tra umatic stress disorder) (-1999) (units unknown) (unknown) (unknown) (no date) (unknown) (unknown) Painful menstr ual periods () (units unknown) (unknown) (unknown) (no date) (unknown) (unknown) Patient: Hardy Cruz MR# (units unknown) (unknown) (unknown) (no date) (unknown) (unknown) Polyhydramnios (unit s unknown) (unknown) (unknown) (no date) (unknown) (unknown) depressio n (units unknown) (unknown) (unknown) (no date) (unknown) (unknown) Previous gladys joseph section (units unknown) (unknown) (unknown) (no date) (unknown) (unknown) Reason For Visit (un its unknown) (unknown) (unknown) (no date) (unknown) (unknown) Restless leg syndrom e (units unknown) (unknown) (unknown) (no date) (unknown) (unknown) Safety (units unknown) (unknown) (unknown) (no date) (unknown) (unknown) Signed By: (units unknown) (unknown) (unknown) (no date) (unknown) (unknown) Smoking Status : Former smoker (units unknown) (unknown) (unknown) (no date) (unknown) (unknown) Social History (unit s unknown) (unknown) (unknown) (no date) (unknown) (unknown) Son Hearing loss (un its unknown) (unknown) (unknown) (no date) (unknown) (unknown) Surgical Histo ry (Updated 07/12/22 @ 15:10 by Josefina Baumann MD) (units unknown) (unknown) (unknown) (no date) (unknown) (unknown) TH phone heavy bleeding, pelvic pain (units unknown) (unknown) (unknown) (no date) (unknown) (unknown) This note may have been all or partially generated using voice recognition (units unknown) (unknown) (unknown) (no date) (unknown) (unknown) Tobacco + Subs tance Use (units unknown) (unknown) (unknown) (no date) (unknown) (unknown) Tobacco Status (unit s unknown) (unknown) (unknown) (no date) (unknown) (unknown) Type(s) of exe rcise: walking (units unknown) (unknown) (unknown) (no date) (unknown) (unknown) Visit Reasons: THP heavy bleeding, pelvic pain (units unknown) (unknown) (unknown) (no date) (unknown) (unknown) Roy teeth extract ed (units unknown) (unknown) (unknown) (no date) (unknown) (unknown) additional soc ial history: Difficulty other children. Would (units unknown) (unknown) (unknown) (no date) (unknown) (unknown) alcohol intake: form er (units unknown) (unknown) (unknown) (no date) (unknown) (unknown) caffeine: Yes (soft drinks in small quantities, well within 200mg limit) (units unknown) (unknown) (unknown) (no date) (unknown) (unknown) carbon monox d etector in home: Yes (units unknown) (unknown) (unknown) (no date) (unknown) (unknown) current occupa tional exposures/hazards: Yes (units unknown) (unknown) (unknown) (no date) (unknown) (unknown) daily servings fruits/ve or more times/day (units unknown) (unknown) (unknown) (no date) (unknown) (unknown) delivery. (units unknown) (unknown) (unknown) (no date) (unknown) (unknown) do you feel sa fe at home: Yes (units unknown) (unknown) (unknown) (no date) (unknown) (unknown) during the pas t year weight has: other (wide fluctuations since last ) (units unknown) (unknown) (unknown) (no date) (unknown) (unknown) education leve l: vocational (some college, certificate programs) (units unknown) (unknown) (unknown) (no date) (unknown) (unknown) fire extinguis her in home: Yes (units unknown) (unknown) (unknown) (no date) (unknown) (unknown) firearms in ho me: Yes firearms unloaded and locked: Yes (units unknown) (unknown) (unknown) (no date) (unknown) (unknown) flaxseed Aller gy (Severe, Verified 04/06/23 09:30) (units unknown) (unknown) (unknown) (no date) (unknown) (unknown) grade breast p ump that she can have when she goes home from hospital after (units unknown) (unknown) (unknown) (no date) (unknown) (unknown) have occurred. If there are any questions, please contact the Medical Records (units unknown) (unknown) (unknown) (no date) (unknown) (unknown) household memb ers: spouse, family ([id number] and his 3 children (moving out (units unknown) (unknown) (unknown) (no date) (unknown) (unknown) housing: house (unit s unknown) (unknown) (unknown) (no date) (unknown) (unknown) lives independ ently: Yes (units unknown) (unknown) (unknown) (no date) (unknown) (unknown) marital status : (units unknown) (unknown) (unknown) (no date) (unknown) (unknown) may occur. Occ asional wrong-word or 'sound-alike' substitutions may have (units unknown) (unknown) (unknown) (no date) (unknown) (unknown) number of children: 3 (units unknown) (unknown) (unknown) (no date) (unknown) (unknown) occupational s tatus: unemployed and previously employed (units unknown) (unknown) (unknown) (no date) (unknown) (unknown) occurred due t o the inherent limitations of voice recognition software. Please (units unknown) (unknown) (unknown) (no date) (unknown) (unknown) pets and anima ls: Yes (horses) (units unknown) (unknown) (unknown) (no date) (unknown) (unknown) prednisone Adv erse Reaction (Mild, Verified 04/06/23 09:30) (units unknown) (unknown) (unknown) (no date) (unknown) (unknown) read the note carefully and recognize, using context, where these substitutions (units unknown) (unknown) (unknown) (no date) (unknown) (unknown) really like to meet w/ [facility] prior to delivery and would like Rx for hospital (units unknown) (unknown) (unknown) (no date) (unknown) (unknown) seatbelt use: always (units unknown) (unknown) (unknown) (no date) (unknown) (unknown) second hand ex posure: No (units unknown) (unknown) (unknown) (no date) (unknown) (unknown) software. Alth ough every effort is made to edit content, bookbinder chief errors (units unknown) (unknown) (unknown) (no date) (unknown) (unknown) soon)) and children (units unknown) (unknown) (unknown) (no date) (unknown) (unknown) special roland needs: No (units unknown) (unknown) (unknown) (no date) (unknown) (unknown) substance use type: marijuana (in the past, not recently and not while ) (units unknown) (unknown) (unknown) (no date) (unknown) (unknown) water heater t emp set < 120 deg: Yes (units unknown) (unknown) (unknown) (no date) (unknown) (unknown) well-balanced diet: daily or most days (units unknown) (unknown) (unknown) (no date) (unknown) (unknown) working smoke detector in home: Yes (units unknown) (unknown) Social History date description facility 2023-02-02 00:00 Ex-smoker (finding) [facility] 2023-04-04 00:00 Ex-smoker (finding) [facility] 2023-04-24 00:00 Ex-smoker (finding) [facility] Vital Signs date measurement value units 2023-02-07 00:00 BMI 45.1 kg/m2 2023-02-07 00:00 BP_diastolic 70 mmHg 2023-02-07 00:00 BP_systolic 115 mmHg 2023-02-07 00:00 heart_rate 84 /min 2023-02-07 00:00 height_metric 165.1 cm 2023-02-07 00:00 height_standard 65 in 2023-02-07 00:00 o2_saturation 98 % 2023-02-07 00:00 temperature_metric 36.44 C 2023-02-07 00:00 temperature_standard 97.6 F 2023-02-07 00:00 weight_metric 123.15 kg 2023-02-07 00:00 weight_standard 271.5 lb 2023-04-06 00:00 BMI 45.9 kg/m2 2023-04-06 00:00 BP_diastolic 74 mmHg 2023-04-06 00:00 BP_systolic 106 mmHg 2023-04-06 00:00 heart_rate 83 /min 2023-04-06 00:00 height_metric 165.1 cm 2023-04-06 00:00 height_standard 65 in 2023-04-06 00:00 o2_saturation 99 % 2023-04-06 00:00 temperature_metric 36.89 C 2023-04-06 00:00 temperature_standard 98.4 F 2023-04-06 00:00 weight_metric 125.19 kg 2023-04-06 00:00 weight_standard 276 lb
[2023-04-30] MEDS ORDERED: KETOROLAC 60 MG/2 ML VIAL IM STA (11:44)
[2023-04-30] MEDS ORDERED: DROPERIDOL 5 MG/2 ML VIAL IM STA (11:44)
--- NOTE | 2023-04-30 11:50 | ED Physician Documentation ---
History of Present Illness - Stated complaint Stated Complaint: MIGRAINE - Chief complaint Chief Complaint: Neuro - History obtained from History obtained from: Patient - History of Present Illness Pain level max: 0 Pain level now: 0 - Additonal information Additional information: 32-year-old female states she has a longstanding history of migraine headaches. This headache started 2 days ago. Usually resolves with Excedrin Migraine, but has had continued pain despite taking Excedrin Migraine. No fevers. No vomiting. Has had nausea. She is breast-feeding a 5-month-old. No trauma. No IV drug use. No neck or back pain. Gradual onset headache, mainly on the right side, similar to prior migraines. 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: None : None HEENT: None Psych: Depression, Anxiety, Panic attacks, ADD/ADHD Musculoskeletal: Chronic back pain Derm: None - Past Surgical History Past Surgical History: Yes /PROFESSOR OF PHYSICAL EDUCATION: section - Present Medications Home Medications: Ambulatory Orders Medication Instructions Recorded Confirmed Ibuprofen [Motrin] 800 mg PO Q8H PRN #30 tablet 10/04/21 01/14/23 Citalopram [CeleXA] 20 mg PO DAILY 01/14/23 01/14/23 HYDROcod/ACETAM 5/325 [[place] 5/325] 1 tablet PO Q6H PRN #14 tablet 01/14/23 Levothyroxine Sodium 137 mcg PO DAILY 01/14/23 01/14/23 [Levothyroxine] Lidocaine Patch 5% [Lidoderm Patch] 1 patch TOP DAILY PRN #10 patch 01/14/23 predniSONE [Deltasone] 20 mg PO [id number] #21 tab 01/14/23 HYDROcod/ACETAM 5/325 [[place] 5/325] 1 ea PO Q6H PRN #15 tablet 02/25/23 Cyclobenzaprine [Flexeril] 10 mg PO TID PRN #20 tablet 03/05/23 HYDROcod/ACETAM 5/325 [[place] 5/325] 1 - 2 tablet PO Q6H PRN #14 tablet 03/05/23 predniSONE [Deltasone] 60 mg PO DAILY 5 Days #15 tablet 03/05/23 - Allergies Allergies/Adverse Reactions: Allergies Allergy/AdvReac Type Severity Reaction Status Date / Time flaxseed Allergy Anaphylaxis Verified 04/30/23 09:43 - Social History Does the pt smoke?: No Smoking Status: Never smoker Does the pt drink ETOH?: No Does the pt have substance abuse?: No - Immunizations Immunizations are current?: Yes Immunizations: Other immun not current - POLST Patient has POLST: No PD ED PE NORMAL - Vitals Vital signs reviewed: Yes - General General: Alert and oriented X 3, No acute distress - HEENT HEENT: Moist mucous membranes - Neck Neck: Supple, no meningeal sign - Cardiac Cardiac: RRR - Respiratory Respiratory: No respiratory distress, Clear bilaterally - Abdomen Abdomen: Soft, Non tender, Non distended - Back Back: No CVA TTP, No spinal TTP - Derm Derm: Warm and dry, No rash - Extremities Extremities: No edema - Neuro Neuro: Alert and oriented X 3, grid molder 2-12 intact, No motor deficit, No sensory deficit, Normal speech - Psych Psych: Normal mood, Normal affect Results - Vitals Vitals: Vital Signs - 24 hr 04/30/23 09:40 Temperature 36.4 C L Heart Rate 89 Respiratory 16 Rate Blood Pressure 130/74 O2 Saturation 100 Oxygen O2 Source Room air PD Medical Decision Making - ED course Complexity details: considered differential, d/w patient ED course: Patient with her usual migraine headache. No evidence of subarachnoid hemorrhage, encephalitis, meningitis. She was given Toradol and droperidol. Patient did not wait for reevaluation. She did report to the nursing staff that her headache had resolved and that she was leaving. Patient left the emergency department without a reevaluation by me or paperwork. Departure - Departure Disposition: 07 Against Medical Advice Clinical Impression: Migraine Qualifiers: Migraine type: unspecified Status migrainosus presence: without status migrainosus Intractability: not intractable Qualified Code(s): G43.909 - Migraine, unspecified, not intractable, without status migrainosus Condition: Stable Discharge Date/Time: 04/30/23 12:30
== END 2023-04-30 12:30 | disposition left against medical advice (07) ==
LOC: ED 09:16
DX: G43.909 Migraine, unspecified, not intractable, without status migrainosus (principal)
CPT/HCPCS: 96372; 99283

== ENCOUNTER 2023-10-28 18:26 | Emergency (ER) | payer MEDICAID ==
[2023-10-28] MEDS ORDERED: HYDROcod/ACET 5/325 Prepack 4 PO STA (18:43)
--- NOTE | 2023-10-28 18:44 | ED Physician Documentation ---
PD HPI BACK PAIN - Stated complaint Stated Complaint: BACK PX - Chief complaint Chief Complaint: Back Pain - History obtained from History obtained from: Patient - Additional information Additional information: She has had back pain since December of last year. Had MRIs of the cervical thoracic and lumbar spines at that time which were notable for mild multilevel facet hypertrophy in the lumbar spine and a mild right paracentral disc protrusion at L5-S1. The thoracic spine was normal. And her cervical spine did show an annulus tear. She been in constant pain ever since in the low lumbar spine with occasional radiation to the right leg. It has been much worse over the last 9 days after trigger point injection. She is taking Tylenol, ibuprofen, Lidoderm patches and just started a Medrol Dosepak yesterday but still needs something else. Planning to start gabapentin tonight. Denies weakness, numbness, tingling, saddle anesthesia, fevers, possibility of . PD PAST MEDICAL HISTORY - Past Medical History Cardiovascular: None Respiratory: None Neuro: Migraines Endocrine/Autoimmune: HyPOthyroidism GI: None JAVA LEAD: None : None HEENT: None Psych: Depression, Anxiety, Panic attacks, ADD/ADHD Musculoskeletal: Chronic back pain Derm: None - Past Surgical History Past Surgical History: Yes /JAVA LEAD: section - Present Medications Home Medications: Ambulatory Orders Medication Instructions Recorded Confirmed Ibuprofen [Motrin] 800 mg PO Q8H PRN #30 tablet 10/04/21 01/14/23 Citalopram [CeleXA] 20 mg PO DAILY 01/14/23 01/14/23 HYDROcod/ACETAM 5/325 [[place] 5/325] 1 tablet PO Q6H PRN #14 tablet 01/14/23 Levothyroxine Sodium 137 mcg PO DAILY 01/14/23 01/14/23 [Levothyroxine] Lidocaine Patch 5% [Lidoderm Patch] 1 patch TOP DAILY PRN #10 patch 01/14/23 predniSONE [Deltasone] 20 mg PO [id number] #21 tab 01/14/23 HYDROcod/ACETAM 5/325 [[place] 5/325] 1 ea PO Q6H PRN #15 tablet 02/25/23 Cyclobenzaprine [Flexeril] 10 mg PO TID PRN #20 tablet 03/05/23 HYDROcod/ACETAM 5/325 [[place] 5/325] 1 - 2 tablet PO Q6H PRN #14 tablet 03/05/23 predniSONE [Deltasone] 60 mg PO DAILY 5 Days #15 tablet 03/05/23 HYDROcod/ACETAM 5/325 [[place] 5/325] 1 - 2 tab PO Q6H PRN #10 tablet 10/28/23 - Allergies Allergies/Adverse Reactions: Allergies Allergy/AdvReac Type Severity Reaction Status Date / Time flaxseed Allergy Anaphylaxis Verified 04/30/23 09:43 - Social History Does the pt smoke?: No Smoking Status: Never smoker Does the pt drink ETOH?: No Does the pt have substance abuse?: No - Immunizations Immunizations are current?: Yes Immunizations: Other immun not current - POLST Patient has POLST: No PD ED PE NORMAL - Vitals Vital signs reviewed: Yes - General General: Alert and oriented X 3, No acute distress - Abdomen Abdomen: Non tender - Back Back: Other (Mild tenderness of the low lumbar spine) - Extremities Extremities: Other (The patient has equal and normal Achilles and patellar reflexes bilaterally. Normal sensation in all areas of the legs. Patient denies saddle anesthesia. Normal strength in flexion-extension at the ankles, knees, and flexion of the hips.) - Neuro Neuro: Alert and oriented X 3 Results - Vitals Vitals: Vital Signs - 24 hr 10/28/23 18:31 Temperature 36.8 C Heart Rate 98 Respiratory 18 Rate Blood Pressure 134/95 H O2 Saturation 100 Oxygen O2 Source Room air PD Medical Decision Making - ED course ED course: This patient has seemingly uncomplicated musculoskeletal back pain. The patient has no "red flags." Specifically denies IV drug use, fevers, incontinence, saddle anesthesia. Spinal epidural abscess was considered, given that the patient has no fever, is not diabetic, has no spinal tenderness, does not use IV drugs, and has no bilateral neurologic symptoms, the diagnosis of spinal epidu ral abscess is considered exceedingly unlikely. Departure - Departure Disposition: 01 Home, Self Care Clinical Impression: Acute exacerbation of chronic low back pain Condition: Good Record reviewed to determine appropriate education?: Yes Instructions: ED Neck Back Pain General Prescriptions: HYDROcod/ACETAM 5/325 [[place] 5/325] 1 - 2 tab PO Q6H PRN #10 tablet PRN Reason: Pain Comments: I sent your prescription electronically to [facility] in [place]. Call your doctor to arrange a follow-up appointment, make the next available appointment. In the interim, return anytime if worse or if new symptoms develop. I am prescribing a short course of narcotic pain medication for you. These are potentially dangerous and addictive medications that should be used carefully. These medications may constipate you. Take an ngsq-ljp-jmurdmy stool softener (docusate) twice daily with plenty of water while taking these medications. If you go 24 hours without a bowel movement, take gkka-zvs-[id number] miralax, per package instructions. Do not drink or drive while taking these medications. If you received narcotic or sedating medications while in the emergency department, do not drive for 24 hours. Store this medication in a safe, secure place and out of reach of children. It is a violation of federal law to give or sell this medication to another person or to use in a manner other than prescribed. The ED will not refill narcotic prescriptions, including prescriptions lost or stolen. To dispose of unwanted medications: 1. [facility] provides a drop box for medication in pill form only (no liquids) 8:00 am to 4:30 p.m. Monday-Monday in the lobby of the [facility], [address] [place] [address]. Empty pills into ziplock bag before disposal. Call [phone] for information. 2.[facility] is a free service available to all [facility] residents. Go to [email or web address] Note that many narcotic pain relievers also contain Tylenol/acetaminophen. Please ensure that your total dose of acetaminophen from all sources does not exceed 3 g (3000 mg) per day.
[2023-10-28 19:03] VITALS: BP 136/86; O2SAT 99
== END 2023-10-28 18:53 | disposition home or self-care (01) ==
LOC: ED 18:26
DX: M54.50 Low back pain, unspecified (principal); G89.29 Other chronic pain
CPT/HCPCS: 99282; 99283

== ENCOUNTER 2023-12-02 15:15 | Outpatient (CLI) | payer MEDICAID ==
[2023-12-02 21:33] LABS: BACTERIAL VAGINOSIS DNA NEGATIVE (NEGATIVE); CANDIDA GLABRATA DNA NEGATIVE (NEGATIVE); CANDIDA GROUP DNA NEGATIVE (NEGATIVE); CANDIDA KRUSEI DNA NEGATIVE (NEGATIVE); TRICHOMONAS VAGINALIS DNA NEGATIVE (NEGATIVE)
[2023-12-02 22:40] LABS: CHLAMYDIA TRACHOMATIS DNA NEGATIVE (NEGATIVE); NEISSERIA GONORRHOEAE DNA NEGATIVE (NEGATIVE)
== END 2023-12-02 15:30 | disposition home or self-care (01) ==
LOC: LAB.N 15:15
PROVIDERS: ATTEND Nurse Practitioner
DX: N39.0 Urinary tract infection, site not specified (principal); N89.8 Other specified noninflammatory disorders of vagina
CPT/HCPCS: 81514; 87086; 87491; 87591; 87661

== ENCOUNTER 2023-12-05 08:17 | Outpatient (CLI) | payer MEDICAID ==
[2023-12-05 11:54] LABS: BASOPHILS # (AUTO) 0.1 10^3/uL (0.0-0.1); BASOPHILS % (AUTO) 1.2 %; EOSINOPHILS # (AUTO) 0.4 10^3/uL (0.0-0.7); EOSINOPHILS % (AUTO) 5.6 %; HCT - HEMATOCRIT 42.2 % (37.0-47.0); HGB - HEMOGLOBIN 13.1 g/dL (12.0-16.0); LYMPHOCYTES # (AUTO) 2.5 10^3/uL (1.5-3.5); LYMPHOCYTES % (AUTO) 37.4 %; MEAN CORPUSCULAR HEMOGLOBIN 26.6 pg (27.0-31.0); MEAN CORPUSCULAR VOLUME 85.8 fL (81.0-99.0); MEAN PLATELET VOLUME 10.3 fL (7.9-10.8); MONOCYTES # (AUTO) 0.5 10^3/uL (0.0-1.0); MONOCYTES % (AUTO) 7.9 %; NEUTROPHILS # (AUTO) 3.3 10^3/uL (1.5-6.6); NEUTROPHILS % (AUTO) 47.8 %; PLT - PLATELET COUNT 346 10^3/uL (130-450); RED BLOOD COUNT 4.92 10^6/uL (4.20-5.40); RED CELL DISTRIBUTION WIDTH 14.9 % (12.0-15.0); WHITE BLOOD COUNT 6.8 x10^3/uL (4.8-10.8)
[2023-12-05 12:24] LABS: ALBUMIN 4.4 g/dL (3.2-5.5); ALBUMIN/GLOBULIN RATIO 1.5 (1.0-2.2); ALKALINE PHOSPHATASE 71 IU/L (42-121); ALT ALANINE AMINOTRANSFERASE 12 IU/L (10-60); AST ASPARTATE AMINOTRANSFERASE 14 IU/L (10-42); BILIRUBIN,TOTAL 0.4 mg/dL (0.2-1.0); BUN - BLOOD UREA NITROGEN 10 mg/dL (6-20); CALCIUM 9.5 mg/dL (8.5-10.3); CARBON DIOXIDE - CO2 26 mmol/L (21-32); CHLORIDE 106 mmol/L (101-111); CHOLESTEROL 186 mg/dL; CREATININE 0.9 mg/dL (0.6-1.3); GFR - MDRD 72 (>89); GLUCOSE 85 mg/dL (74-104); HDL CHOLESTEROL 46 mg/dL; LDL CHOLESTEROL,CALCULATED 110 mg/dL; LDL/HDL RATIO 2.4 (<4.4); POTASSIUM 4.2 mmol/L (3.5-4.5); SODIUM 139 mmol/L (135-145); TOTAL PROTEIN 7.3 g/dL (6.4-8.9); TRIGLYCERIDES 149 mg/dL (48-352); VLDL CHOLESTEROL 30 mg/dL
[2023-12-05 12:44] LABS: ESTIMATED AVERAGE GLUCOSE 94 mg/dL (70-100); HEMOGLOBIN A1c% 4.9 % (4.27-6.07)
[2023-12-05 19:11] LABS: THYROID STIMULATING HORMONE 1.04 uIU/mL (0.34-5.60)
== END 2023-12-05 08:18 | disposition home or self-care (01) ==
LOC: LAB.N 08:17
PROVIDERS: ATTEND Nurse Practitioner Family
DX: E03.9 Hypothyroidism, unspecified (principal); R00.0 Tachycardia, unspecified; E66.01 Morbid (severe) obesity due to excess calories; Z68.42 Body mass index [BMI] 45.0-49.9, adult; N93.8 Other specified abnormal uterine and vaginal bleeding; E78.5 Hyperlipidemia, unspecified
CPT/HCPCS: 36415; 80053; 80061; 83036; 83721; 84443; 85025

== ENCOUNTER 2024-02-14 09:08 | Emergency (ER) | payer MEDICAID ==
[2024-02-14 09:21] VITALS: O2SAT 98
--- NOTE | 2024-02-14 09:47 | ED Physician Documentation ---
History of Present Illness - Stated complaint Stated Complaint: BACK PX - Chief complaint Chief Complaint: Back Pain - History obtained from History obtained from: Patient - Additonal information Additional information: The pt comes to the ED with CC of low back pain which radiates down through her R buttock into her leg, ever since she strained her back 2 months ago. She states it just has not gotten better, and that she is awaiting MRI. Her doctor has seen her for this, and she states they just told her she needs to lose weight. She states that sitting and laying hurt. Walking makes her back feel sore, but does not make the shooting pain in her leg worse. No numbness or tingling. No loss of bowel or bladder control. No prior injury. She states she is mainly here to make sure there's nothing else obviously wrong that needs to be addressed more emergently. PD PAST MEDICAL HISTORY - Past Medical History Past Medical History: Yes Cardiovascular: None Respiratory: None Neuro: Migraines Endocrine/Autoimmune: HyPOthyroidism GI: None MECHANIC: Other : None HEENT: None Psych: Depression, Anxiety, Panic attacks, ADD/ADHD Musculoskeletal: Chronic back pain Derm: None Other Past Medical History: PCOS - Past Surgical History Past Surgical History: Yes /MECHANIC: section, Hysterectomy - Present Medications Home Medications: Ambulatory Orders Medication Instructions Recorded Confirmed Ibuprofen [Motrin] 800 mg PO Q8H PRN #30 tablet 10/04/21 02/14/24 Levothyroxine Sodium 137 mcg PO DAILY 01/14/23 02/14/24 [Levothyroxine] Lidocaine Patch 5% [Lidoderm Patch] 1 patch TOP DAILY PRN #10 patch 01/14/23 02/14/24 Cyclobenzaprine [Flexeril] 10 mg PO TID PRN #20 tablet 02/14/24 HYDROcod/ACETAM 5/325 [[place] 5/325] 1 - 2 tablet PO Q6H PRN #14 tablet 02/14/24 Progesterone, Micronized 200 mg PO DAILY 02/14/24 02/14/24 [Prometrium] predniSONE [Deltasone] 10 mg PO [id number] #42 tab 02/14/24 - Allergies Allergies/Adverse Reactions: Allergies Allergy/AdvReac Type Severity Reaction Status Date / Time flaxseed Allergy Anaphylaxis Verified 02/14/24 09:11 - Social History Does the pt smoke?: No Smoking Status: Never smoker Does the pt drink ETOH?: No Does the pt have substance abuse?: No - Immunizations Immunizations are current?: Yes Immunizations: Other immun not current - POLST Patient has POLST: No PD ED PE NORMAL - Vitals Vital signs reviewed: Yes - General General: Alert and oriented X 3, No acute distress, Well developed/nourished - HEENT HEENT: Atraumatic, PERRL, EOMI, Moist mucous membranes - Neck Neck: Supple, no meningeal sign, No bony TTP - Cardiac Cardiac: RRR, No murmur - Respiratory Respiratory: No respiratory distress, Clear bilaterally - Abdomen Abdomen: Soft, Non tender, Non distended - Back Back: No spinal TTP, Other (TTP over R paraspinal musculature and over R SI joint) - Derm Derm: Normal color, Warm and dry, No rash - Extremities Extremities: No deformity, No edema - Neuro Neuro: Alert and oriented X 3, No motor deficit, No sensory deficit - Psych Psych: Normal mood, Normal affect Results - Vitals Vitals: Oxygen O2 Source Room air PD Medical Decision Making - ED course Complexity details: considered differential, d/w patient ED course: I d/w pt that we could do x-rays, but the test of choice would be MRI. The pt is in the process of getting this scheduled for outpatient, and does not have any emergent findings to indicate a need for emergent MR. Additionally, the sx have been going on for a couple of months now, and are consistent with sciatica. The pt states she will just wait for MRI, since there is no sign of an emergent condition. She is stable for d/c home. We have discussed home management of the sx, as well as the usual indications for return. Departure - Departure Disposition: Home, Self Care Clinical Impression: Low back strain Qualifiers: Encounter type: initial encounter Qualified Code(s): S39.012A - Strain of muscle, fascia and tendon of lower back, initial encounter Sciatica Qualifiers: Laterality: right Qualified Code(s): M54.31 - Sciatica, right side Condition: Stable Instructions: ED Sprain Strain Lumbar, ED Sciatica Prescriptions: predniSONE [Deltasone] 10 mg PO [id number] #42 tab Cyclobenzaprine [Flexeril] 10 mg PO TID PRN #20 tablet PRN Reason: Spasms HYDROcod/ACETAM 5/325 [[place] 5/325] 1 - 2 tablet PO Q6H PRN #14 tablet PRN Reason: Pain Comments: Your symptoms are most consistent with sciatica, a nerve pain caused by pressure at some point or another along the large nerve bundle that comes out to your low back and goes down through your pelvis and into your leg. This can sometimes start in the back or can start in the buttock/pelvis. It usually involves a deep ache that goes down your leg and can be exacerbated by certain positions or by pressure on the buttock (such as with sitting). As far as the underlying cause, there can be a number of different reasons for the sciatica and MRI is the best test to sort this out if it has been going on for some months without getting better. You can talk to your primary doctor about scheduling MRI for you or you can try to reschedule your electronic data interchange specialist appointment and see if they will order this for you instead. Prescription for some medications for symptomatic relief, including a pain medicine, muscle relaxer, and a steroid, have been electronically transmitted to the [facility] pharmacy in [place]. You may take these medications along with ibuprofen. You can take the Tylenol if you are not using the pain medication, as the pain medication contains some Tylenol along with the narcotic. Please call as soon as possible to schedule follow-up appointments with both the electronic data interchange specialist and your primary. Discharge Date/Time: 02/14/24 09:53
[2024-02-14 09:54] VITALS: BP 100/76
== END 2024-02-14 09:53 | disposition home or self-care (01) ==
LOC: ED 09:08
DX: S39.012A Strain of muscle, fascia and tendon of lower back, initial encounter (principal); M54.31 Sciatica, right side; X58.XXXA Exposure to other specified factors, initial encounter
CPT/HCPCS: 99283; 99284

== ENCOUNTER 2024-04-09 23:57 | Emergency (ER) | payer MEDICAID ==
[2024-04-10 00:05] VITALS: BP 129/85; O2SAT 98
--- NOTE | 2024-04-10 00:14 | ED Physician Documentation ---
PD FIELDS HEENT - Stated complaint Stated Complaint: TOOTH PX - Chief complaint Chief Complaint: Heent - History obtained from History obtained from: Patient - Additional information Additional information: The patient comes to the emergency department chief complaint of dental pain, stemming from one of her right mandibular teeth. She states that she has had problems on and off with that tooth and that she was told by her dentist that it look like the filling had come loose and she may just need new filling. She states she had the tooth drilled and filled with a temporary filling yesterday since the numbing medicine wore off, she has had strong, throbbing pain. She denies any fevers. No swelling of the face. No other complaints at this time. She states she is going to see her dentist later today and already has a referral into an mold engraver who takes her insurance in [place]. 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 HEENT: None Psych: Depression, Anxiety, Panic attacks, ADD/ADHD Musculoskeletal: Chronic back pain Derm: None - Past Surgical History Past Surgical History: Yes /GAS LEAK INSPECTOR HELPER: section, Hysterectomy - Present Medications Home Medications: Ambulatory Orders Medication Instructions Recorded Confirmed Ibuprofen [Motrin] 800 mg PO Q8H PRN #30 tablet 10/04/21 02/14/24 Levothyroxine Sodium 137 mcg PO DAILY 01/14/23 02/14/24 [Levothyroxine] Lidocaine Patch 5% [Lidoderm Patch] 1 patch TOP DAILY PRN #10 patch 01/14/23 02/14/24 Cyclobenzaprine [Flexeril] 10 mg PO TID PRN #20 tablet 02/14/24 HYDROcod/ACETAM 5/325 [[place] 5/325] 1 - 2 tablet PO Q6H PRN #14 tablet 02/14/24 Progesterone, Micronized 200 mg PO DAILY 02/14/24 02/14/24 [Prometrium] predniSONE [Deltasone] 10 mg PO [id number] #42 tab 02/14/24 Amoxicillin 500 mg PO TID 7 Days #21 cap 04/10/24 HYDROcod/ACETAM 5/325 [[place] 5/325] 1 - 2 tablet PO Q6H PRN #14 tablet 04/10/24 - Allergies Allergies/Adverse Reactions: Allergies Allergy/AdvReac Type Severity Reaction Status Date / Time flaxseed Allergy Anaphylaxis Verified 04/10/24 00:05 - Social History Does the pt smoke?: No Smoking Status: Never smoker Does the pt drink ETOH?: No Does the pt have substance abuse?: No - Immunizations Immunizations are current?: Yes Immunizations: Other immun not current - POLST Patient has POLST: No PD ED PE NORMAL - Vitals Vital signs reviewed: Yes - General General: Alert and oriented X 3, Well developed/nourished, Other - HEENT HEENT: Atraumatic (The patient is crying and appears uncomfortable, holding her right jaw.), PERRL, EOMI, Moist mucous membranes, Other (No gingival edema or tenderness. No dental tenderness. Tooth with temporary filling noted on right mandibular area. No fracture or filling. No facial or intraoral edema or mass. No fluctuance.) - Respiratory Respiratory: No respiratory distress - Derm Derm: Normal color, Warm and dry, No rash - Extremities Extremities: No deformity - Neuro Neuro: Other (Grossly intact) - Psych Psych: Normal mood, Normal affect Results - Vitals Vitals: Vital Signs - 24 hr 04/10/24 00:03 Temperature 36.6 C Heart Rate 83 Respiratory 18 Rate Blood Pressure 129/85 H O2 Saturation 98 Oxygen O2 Source Room air PD Medical Decision Making - ED course Complexity details: considered differential, d/w patient ED course: The patient presented with pain but no obvious dental infection. However, given the recent dental work and escalating pain I did go ahead and give her a dose of amoxicillin here in the emergency department. She was given a prepack for V icodin and prescriptions for the same as an outpatient. She is encouraged to follow-up with her dentist as planned for definitive treatment. We have discussed the usual indications for return. Departure - Departure Disposition: 01 Home, Self Care Clinical Impression: Pain, dental Condition: Stable Instructions: ED Tooth Pain Prescriptions: Amoxicillin 500 mg PO TID 7 Days #21 cap HYDROcod/ACETAM 5/325 [[place] 5/325] 1 - 2 tablet PO Q6H PRN #14 tablet PRN Reason: Pain Comments: You have been started on antibiotics tonight and have been given a prepack of pain medication. Prescriptions for the same and been electronically transmitted to the [facility] pharmacy in [place]. Please continue the antibiotic course until you have taken all the pills. You may continue to take ibuprofen as we have discussed, along with the prescribed pain medication. However, you should not take Tylenol and this prescription pain medication within 4 hours of each other because the prescription pain medication also contains Tylenol. Please continue your plans to see your dentist tomorrow for definitive management of your tooth pain.
[2024-04-10] MEDS: AMOXICILLIN 250 MG CAPSULE PO STA (00:57)
[2024-04-10] MEDS: HYDROcod/ACET 5/325 Prepack 4 PO STA (00:57)
== END 2024-04-10 01:27 | disposition home or self-care (01) ==
LOC: ED 23:57
DX: K08.89 Other specified disorders of teeth and supporting structures (principal); E03.9 Hypothyroidism, unspecified; F41.9 Anxiety disorder, unspecified; F32.A Depression, unspecified
CPT/HCPCS: 99283; A9270

== ENCOUNTER 2024-04-10 12:42 | Outpatient (CLI) | payer MEDICAID ==
--- NOTE | 2024-04-10 15:41 | MRI Report ---
PROCEDURE: Lumbar Spine WO INDICATIONS: LUMBAR RADICULOPATHY TECHNIQUE: Noncontrast sagittal T1 spin echo and T2 fast echo, sagittal STIR, axial T1 and T2 fast spin echo thr ough the lumbar spine. In cases with scoliosis, additional coronal T2 fast spin echo may be performe d. COMPARISON: None. FINDINGS: Image quality: Excellent. Alignment and Curvature: There is normal bony alignment. Bone Marrow: Marrow is of normal overall signal. No acute vertebral body compression fractures. Spinal Cord: Conus medullaris terminates at the L1 level. Visualized cord demonstrates normal signa l and size. Paraspinous Soft Tissues: No paravertebral masses. T12-L1: Disc desiccation and height loss. No canal stenosis. No foraminal stenosis. L1-L2: Mild disc desiccation and height loss. Broad based disc bulge. Mild facet ligamentum flavum hypertrophy. No canal stenosis. No foraminal stenosis. L2-L3: Disc height is preserved. Mild facet ligamentum flavum hypertrophy. No canal stenosis. No f oraminal stenosis. L3-L4: Mild disc bulge. Mild facet ligamentum flavum hypertrophy. No canal stenosis. No foraminal s tenosis. L4-L5: Mild disc desiccation and height loss. Broad based disc bulge. Mild facet ligamentum flavum hypertrophy. No canal stenosis. No foraminal stenosis. L5-S1: Moderate disc desiccation and height loss. Broad based disc bulge. No canal stenosis. No for aminal stenosis. IMPRESSION: Mild degenerative disc disease most severe at L4-5 and L5-S1. No canal stenosis or foraminal stenosis . Reviewed by: Brittany Flores MD on 04/10/2024 3:40 PM PDT Approved by: Brittany Flores MD on 04/10/2024 3:40 PM PDT Station ID: [id number]
== END 2024-04-10 12:43 | disposition home or self-care (01) ==
LOC: DI 12:42
PROVIDERS: ATTEND Anesthesiology
DX: M51.16 Intervertebral disc disorders with radiculopathy, lumbar region (principal); M51.17 Intervertebral disc disorders with radiculopathy, lumbosacral region

== ENCOUNTER 2024-04-10 12:47 | Outpatient (CLI) | payer MEDICAID ==
--- NOTE | 2024-04-10 15:40 | XRAY Report ---
PROCEDURE: Hip w/Pelvis 2-3V RT INDICATIONS: RIGHT HIP PAIN TECHNIQUE: 2 views of the hip were acquired. COMPARISON: No relevant comparisons at time of dictation. FINDINGS: Bones: No fractures or dislocations. No suspicious bony lesions. Nonuniform joint space narrowing with osteophytic lipping of the acetabulum. Soft tissues: No suspicious soft tissue calcifications or masses. IMPRESSION: No acute bony abnormality. Mild right hip osteoarthritis. Reviewed by: Genaro Hudson MD on 04/10/2024 3:38 PM PDT Approved by: Genaro Hudson MD on 04/10/2024 3:38 PM PDT Station ID: [id number]
== END 2024-04-10 12:48 | disposition home or self-care (01) ==
LOC: DI 12:47
PROVIDERS: ATTEND Anesthesiology
DX: M16.11 Unilateral primary osteoarthritis, right hip (principal)

== ENCOUNTER 2024-05-11 23:22 | Emergency (ER) | payer MEDICAID ==
[2024-05-11 23:54] VITALS: BP 139/72
--- NOTE | 2024-05-12 01:28 | ED Physician Documentation ---
History of Present Illness - Stated complaint Stated Complaint: R FOOT PX - Chief complaint Chief Complaint: Ext Problem - Additonal information Additional information: Patient presents with her son who is also registered in ED as patient for unrelated symptoms. Patient c/o right heel pain x few months, atraumatic. She is awaiting referral to specialist by PCP. Pain is exacerbated with weight-bearing. 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 ATTENDANT: section, Hysterectomy - Present Medications Home Medications: Ambulatory Orders Medication Instructions Recorded Confirmed Ibuprofen [Motrin] 800 mg PO Q8H PRN #30 tablet 10/04/21 02/14/24 Levothyroxine Sodium 137 mcg PO DAILY 01/14/23 02/14/24 [Levothyroxine] Lidocaine Patch 5% [Lidoderm Patch] 1 patch TOP DAILY PRN #10 patch 01/14/23 02/14/24 Cyclobenzaprine [Flexeril] 10 mg PO TID PRN #20 tablet 02/14/24 HYDROcod/ACETAM 5/325 [[place] 5/325] 1 - 2 tablet PO Q6H PRN #14 tablet 02/14/24 Progesterone, Micronized 200 mg PO DAILY 02/14/24 02/14/24 [Prometrium] predniSONE [Deltasone] 10 mg PO [id number] #42 tab 02/14/24 Amoxicillin 500 mg PO TID 7 Days #21 cap 04/10/24 HYDROcod/ACETAM 5/325 [[place] 5/325] 1 - 2 tablet PO Q6H PRN #14 tablet 04/10/24 - Allergies Allergies/Adverse Reactions: Allergies Allergy/AdvReac Type Severity Reaction Status Date / Time flaxseed Allergy Anaphylaxis Verified 05/11/24 23:46 - Social History Does the pt smoke?: No Smoking Status: Never smoker Does the pt drink ETOH?: No Does the pt have substance abuse?: No - Immunizations Immunizations are current?: Yes Immunizations: Other immun not current - POLST Patient has POLST: No PD ED PE NORMAL - Vitals Vital signs reviewed: Yes - General General: Alert and oriented X 3, No acute distress, Well developed/nourished PD ED PE EXPANDED - Extremities Extremities: Other (mild TTP right heel, posterolateral aspect. no erythema, no swelling, no deformity) Results - Vitals Vitals: Oxygen O2 Source Room air PD Medical Decision Making - ED course Complexity details: considered differential, d/w patient ED course: Etiology of symptoms is unclear at this time. Tendonitis, heel/bone spur are within differential diagnosis. No indication for emergent testing including imaging. Patient encouraged to continue to pursue follow up Departure - Departure Disposition: 01 Home, Self Care Clinical Impression: Foot pain, right Condition: Good Instructions: Heel Pain Comments: Continue to pursue follow up with your primary care provider. You might benefit from referral to an appropriate specialist such as a culinary assistant. Discharge Date/Time: 05/12/24 02:05
[2024-05-12 02:13] VITALS: O2SAT 100
== END 2024-05-12 02:05 | disposition home or self-care (01) ==
LOC: ED 23:22
DX: M79.671 Pain in right foot (principal)
CPT/HCPCS: 99281; 99282

== ENCOUNTER 2024-05-15 11:13 | Outpatient (CLI) | payer BC, MEDICAID ==
--- NOTE | 2024-05-15 14:16 | XRAY Report ---
PROCEDURE: Ankle 3+V RT INDICATIONS: ANKLE PAIN, RIGHT TECHNIQUE: 3 views of the ankle were acquired. COMPARISON: None. FINDINGS: Bones: No fractures or dislocations. Ankle mortise is normally aligned. Large plantar calcaneal spu r and mild Achilles enthesopathy. No suspicious bony lesions. Soft tissues: No tibiotalar joint effusion. Achilles tendon appears normal. IMPRESSION: No acute fracture or distal fibular lesion. Large plantar calcaneal spur. Reviewed by: Jenny Dickens MD on 05/15/2024 2:15 PM PDT Approved by: Jenny Dickens MD on 05/15/2024 2:15 PM PDT Station ID: [id number]
--- NOTE | 2024-05-16 02:10 | XRAY Report ---
PROCEDURE: Foot 3+V RT (Weight Bearing) INDICATIONS: FOOT PAIN, RIGHT TECHNIQUE: 3 views of the foot were acquired. COMPARISON: None. FINDINGS: Bones: No fractures or dislocations. No suspicious bony lesions. Moderate plantar calcaneal spur Soft tissues: No tibiotalar joint effusion. Achilles tendon appears normal. IMPRESSION: Moderate plantar calcaneus spur Reviewed by: Jorge Avelar MD on 05/16/2024 1:09 AM AK[facility]ITO Approved by: Jorge Avelar MD on 05/16/2024 1:09 AM AK[facility]ITO Station ID: [id number]
== END 2024-05-15 11:14 | disposition home or self-care (01) ==
LOC: DI.N 11:13
PROVIDERS: ATTEND Physician Assistant Medical
DX: M77.31 Calcaneal spur, right foot (principal)

== ENCOUNTER 2024-05-28 09:21 | Outpatient (CLI) | payer BC, MEDICAID ==
[2024-05-28 12:50] LABS: ALBUMIN 4.4 g/dL (3.2-5.5); ALBUMIN/GLOBULIN RATIO 1.4 (1.0-2.2); ALKALINE PHOSPHATASE 63 IU/L (42-121); ALT ALANINE AMINOTRANSFERASE 15 IU/L (10-60); AST ASPARTATE AMINOTRANSFERASE 15 IU/L (10-42); BILIRUBIN,TOTAL 0.5 mg/dL (0.2-1.0); BUN - BLOOD UREA NITROGEN 12 mg/dL (6-20); CARBON DIOXIDE - CO2 29 mmol/L (21-32); CHLORIDE 104 mmol/L (101-111); CHOL/HDL RATIO 3.2 (<4.4); CHOLESTEROL 177 mg/dL; CREATININE 0.7 mg/dL (0.6-1.3); GFR - MDRD 96 (>89); GLUCOSE 79 mg/dL (74-104); HDL CHOLESTEROL 55 mg/dL; LDL CHOLESTEROL,CALCULATED 97 mg/dL; LDL/HDL RATIO 1.8 (<4.4); POTASSIUM 3.7 mmol/L (3.5-4.5); SODIUM 138 mmol/L (135-145); TOTAL PROTEIN 7.5 g/dL (6.4-8.9); TRIGLYCERIDES 125 mg/dL; VLDL CHOLESTEROL 25 mg/dL
[2024-05-28 13:06] LABS: THYROID STIMULATING HORMONE 0.11 uIU/mL (0.34-5.60)
[2024-05-28 19:48] LABS: ESTIMATED AVERAGE GLUCOSE 80 mg/dL (70-100); HEMOGLOBIN A1c% 4.4 % (4.27-6.07)
== END 2024-05-28 09:22 | disposition home or self-care (01) ==
LOC: LAB.N 09:21
DX: E03.9 Hypothyroidism, unspecified (principal); Z13.220 Encounter for screening for lipoid disorders; Z13.1 Encounter for screening for diabetes mellitus; M54.50 Low back pain, unspecified; G89.29 Other chronic pain
CPT/HCPCS: 36415; 80053; 80061; 83036; 83721; 84439; 84443

== ENCOUNTER 2024-06-04 21:44 | Emergency (ER) | payer OTHER, MEDICAID ==
[2024-06-04 22:06] VITALS: BP 121/67; O2SAT 99
--- NOTE | 2024-06-04 22:38 | ED Physician Documentation ---
PD HPI LOWER EXT INJURY - Stated complaint Stated Complaint: R FOOT/ANKLE PX - Chief complaint Chief Complaint: Ext Problem - History obtained from History obtained from: Patient - Additional information Additional information: She had a month or 2 of lateral ankle pain. There was no injury. It is getting worse. She is trying to see a digital tech but has been unsuccessful and getting the run around with referrals. PD PAST MEDICAL HISTORY - Past Medical History Cardiovascular: None Respiratory: None Neuro: Migraines Endocrine/Autoimmune: HyPOthyroidism GI: None PATIENT TRANSPORT ORDERLY: Other : None HEENT: None Psych: Depression, Anxiety, Panic attacks, ADD/ADHD Musculoskeletal: Chronic back pain Derm: None - Past Surgical History Past Surgical History: Yes /PATIENT TRANSPORT ORDERLY: section, Hysterectomy - Present Medications Home Medications: Ambulatory Orders Medication Instructions Recorded Confirmed Ibuprofen [Motrin] 800 mg PO Q8H PRN #30 tablet 10/04/21 02/14/24 Levothyroxine Sodium 137 mcg PO DAILY 01/14/23 02/14/24 [Levothyroxine] Progesterone, Micronized 200 mg PO DAILY 02/14/24 02/14/24 [Prometrium] Dextroamphetamine/Amphetamine 7.5 mg PO DAILY 06/04/24 [Adderall 7.5 mg Tablet] Liraglutide [Victoza 2-Adan] 0.6 mg IM MAINTENANCE.IV 06/04/24 Physical Therapy 1 unit TD ONCE #1 06/04/24 - Allergies Allergies/Adverse Reactions: Allergies Allergy/AdvReac Type Severity Reaction Status Date / Time flaxseed Allergy Anaphylaxis Verified 06/04/24 21:57 - Social History Does the pt smoke?: No Smoking Status: Never smoker Does the pt drink ETOH?: No Does the pt have substance abuse?: No - Immunizations Immunizations are current?: Yes Immunizations: Other immun not current - POLST Patient has POLST: No PD ED PE NORMAL - Vitals Vital signs reviewed: Yes - Extremities Extremities: Other (She is tender over the peroneal tendon and the insertion of the right foot. There is no deformity. The plantar fascia and calcaneus are nontender.) - Neuro Neuro: Alert and oriented X 3, Normal speech Results - Vitals Vitals: Vital Signs - 24 hr 06/04/24 21:51 Temperature 36.0 C L Heart Rate 88 Respiratory 17 Rate Blood Pressure 121/67 O2 Saturation 99 Oxygen O2 Source Room air Departure - Departure Disposition: Home, Self Care Clinical Impression: Peroneal tendinitis of right lower leg Condition: Good Record reviewed to determine appropriate education?: Yes Instructions: Tendonitis and Tenosynovitis Prescriptions: Physical Therapy 1 unit TD ONCE #1 Comments: You can wear the boot when up and around, also ice and take an anti-inflammatory such as ibuprofen or Aleve per package instructions. Continue your efforts to try to get in with a digital tech. Return for new or worsening symptoms. Forms: PCP List
== END 2024-06-04 22:48 | disposition home or self-care (01) ==
LOC: ED 21:44
DX: M76.71 Peroneal tendinitis, right leg (principal)
CPT/HCPCS: 99282; 99283